=== PATIENT | female | born 1975 | race Caucasian/White ===

== ENCOUNTER 2017-12-26 19:17 | Emergency (ER) | payer MEDICAID, SELFPAY ==
[2017-12-26 19:20] VITALS: BP 110/74; PULSE 122; RESP 17; TEMP 36.3; O2SAT 97; BMI 32.8
[2017-12-26] MEDS: 0.9% Normal Saline 1,000 ML 125 ML IV (19:52)
[2017-12-26 19:53] LABS: Absolute Lymphocyte Count 5.53 X10^3/ul (0.83-4.51); Absolute Neutrophil Count 7.2 X10^3/uL (2.0-7.7); Basophil# 0.07 X10^3/uL; Basophil% 0.5 % (0-1); Eosinophil# 0.17 X10^3/uL; Eosinophils% 1.2 % (0-5); Hematocrit 42.9 % (37-47); Hemoglobin 14.4 g/dl (12.0-15.0); Lymphocyte # 5.53 X10^3/ul (4.0); Lymphocyte % 39.7 % (19-41); Mean Corp Hgb Conc 33.6 g/gl (32-36); Mean Corpuscular Hgb 30.5 pg (27.0-32.0); Mean Corpuscular Volume 90.9 fL (81-99); Mean Platelet Vol. 10.8 fl (6.2-12.0); Monocyte# 0.92 X10^3/uL; Monocyte% 6.6 % (0-10); Neutrophil % 51.6 % (47-70); Platelet Count 297 K/mm3 (150-450); RBC Distribution Width CV 14.2 % (11.6-14.6); RBC Distribution Width SD 46.9 fl (35.1-43.9); Red Blood Count 4.72 M/mm3 (4.2-5.4); White Blood Count 13.9 K/mm3 (4.4-11.0)
[2017-12-26 19:54] LABS: POSITIVE DIFFERENTIAL YES
[2017-12-26 19:55] LABS: Differential Indicated SCAN CRITERIA MET; POSITIVE COUNT NO; POSITIVE MORPHOLOGY NO
[2017-12-26] MEDS: Ondansetron 4 MG/2 ML Vial IV (19:56)
[2017-12-26 20:03] LABS: ALB/GLOB Ratio 0.9 RATIO (0.9-2.4); AST(SGOT) 20 U/L (15-37); Alanine Aminotransfer ALT/SGPT 28 U/L (13-56); Albumin, Serum 3.6 g/dL (3.2-5.0); Alkaline Phosphatase 61 U/L (45-117); Anion Gap 10 (5-15); BUN 8 mg/dL (7-18); BUN/Creat Ratio 9.7 RATIO (10-20); Calcium,Total 8.5 mg/dL (8.5-10.1); Chloride 103 mmol/L (98-107); Creatinine, Serum 0.82 mg/dL (0.55-1.02); EST Glomerular Filtration Rate 80 mL/min (>60); Est Glom Filt Rate - Afr Amer 97 mL/min (>60); Estimated Creatinine Clearance 82.81 ml/min; Globulin 4.2 g/dL (2.2-4.2); Glucose 106 mg/dL (74-106); Lipase 140 U/L (73-393); Potassium 3.4 mmol/L (3.5-5.1); Protein, Total 7.8 g/dL (6.4-8.2); Sodium Level 138 mmol/L (136-145)
[2017-12-26 20:31] LABS: Differential Comment SCANNED; Platelet Estimate ADEQUATE (ADEQ); Reactive Lymphocyte 2+
[2017-12-26 20:34] VITALS: BP 102/68; PULSE 83; RESP 19; O2SAT 97
[2017-12-26 20:35] VITALS: BP 102/68; BP 110/74; BP 115/64; PULSE 92; PULSE 95; PULSE 99
--- NOTE | 2017-12-26 20:35 | NURSING ---
PT BOYFRIEND KEEPS CALLING TO CHECK ON THE PT HAVE TALKED WITH HIM MULTIPLE TIMES AND LET HIM KNOW WHAT TEST WE ARE DOING AND HOW LONG WE WILL BE WAITING FOR THE RESULTS.
[2017-12-26 22:04] VITALS: BP 121/67; PULSE 87; RESP 18; O2SAT 95
--- NOTE | 2017-12-26 22:26 | ED.DCSUM_ITS ---
- ER Visit Summary Date of Service: 12/26/17 Chief Complaint: [Alcohol intoxication] History of Present Illness: The patient is a 42 F [presents to the emergency department via EMS. Patient's significant other called EMS as patient had been drinking red wine and she was vomiting what looked like blood. Patient apparently has a history of a bleeding ulcer. Patient also tells me she thinks she has had some black stool. Patient does normally take omeprazole and dicyclomine which she has been taking regularly she states. Patient denies any significant abdominal pain. Patient denies chest pain. Patient's states that she thinks she is fine and really does not want to be here. Patient denies any illicit drug use. Patient denies any fevers.] Physical Examination: [HEENT-PERRLA, EOMI. Cranial nerves II through XII grossly intact. TMs clear. Mucous membranes moist. No adenopathy. Cardiovascular-regular rate and rhythm without murmur or ectopy Lungs-clear to auscultation, chest wall stable without crepitus or subcu emphysema Abdomen-normoactive bowel sounds, soft, nontender, no rebound or rigidity, no peritoneal signs. Rectal exam-no masses palpated, patient had brown stool that was Hemoccult negative. Extremities-intact ?4, normal range of motion, normal pulses, atraumatic] Test Results: [CBC with differential obtained showed a white blood cell count 13.9, hemoglobin 14, hematocrit 43, platelets 247. Chemistries were unremarkable. BUN was 8 and creatinine was 0.82. Liver enzymes were normal and lipase was normal. Alcohol level was 287. Hemoccult was negative.] Emergency Department Course and Treatment: [Patient was given Zofran for an episode of emesis in the emergency department and the emesis did not look bloody in any way. She had a purplish discoloration to her shirt which is consistent with wine that she was drinking. After the Zofran she had no further emesis.] Treatment Plan: [Patient will be observed in the emergency department until her alcohol normalizes] Disposition: [Discharged to home in stable condition. Patient advised to seek help for her alcohol problem.] Impression: [Alcohol intoxication] This note was generated with [employer]ation software. It may contain incorrect words, spelling, and punctuation that were not noted in review of the chart prior to signing ED Disposition - Plan for ED Patient: Chief Complaint: ETOH Intox Referrals: Care Physician,No Primary [Primary Care Provider] -
--- NOTE | 2017-12-26 22:29 | ED.DEP ---
ED Disposition - Plan for ED Patient: Chief Complaint: ETOH Intox Instructions: ED Alcohol Intoxication Referrals: Care Physician,No Primary [Primary Care Provider] - Moi Garcia MD [STAFF PHYSICIAN] - 3-5 Days
[2017-12-26 23:04] VITALS: PULSE 87; RESP 17; O2SAT 97
--- NOTE | 2017-12-26 23:59 | NURSING ---
will observe the pt until she is sober enough to go home.
--- NOTE | 2017-12-27 00:09 | NURSING ---
pt will be able to go home when is sober states that she can take a taxi home. let her boyfriend know. pt will be under 100 around 2-3 am
[2017-12-27 00:10] VITALS: BP 104/83; PULSE 90; RESP 14; O2SAT 96
[2017-12-27 01:51] VITALS: BP 107/68; PULSE 71; RESP 16; O2SAT 96
--- NOTE | 2017-12-27 01:51 | NURSING ---
PT HAS A TAXI PICKING HER UP SHE HAS MONEY AND HER BOYFRIEND WAS CALLED TO LET HIM KNOW THAT SHE WAS ON THE WAY HOME.
[2017-12-27 12:47] LABS: Pathologist Review Reviewed
== END 2017-12-27 01:52 | disposition home or self-care (01) ==
PROVIDERS: Emergency Medicine; Emergency Provider Emergency Medicine
DX: F10.129 Alcohol abuse with intoxication, unspecified (principal); Y90.8 Blood alcohol level of 240 mg/100 ml or more; Z72.0 Tobacco use
CPT/HCPCS: 80053; 80320; 82274; 83690; 85025; 96361; 96374; 99285; J7030; A4216; G0480; J2405

== ENCOUNTER 2018-01-18 21:52 | Emergency (ER) | payer MEDICAID, SELFPAY ==
[2018-01-18 21:53] VITALS: BP 132/75; PULSE 101; RESP 15; TEMP 36.7; BMI 31.4
--- NOTE | 2018-01-18 22:54 | ED.VISSUMM ---
- ER Visit Summary Date of Service: 01/18/18 Chief Complaint: [Abscess left groin] History of Present Illness: The patient is a 42 F presents to the emergency department with an abscess to the left groin that started initially about 2 weeks ago. Patient states today it started draining some purulent debris and comes in for evaluation. Patient denies any fever. Patient has had these in the past and have required incision and drainage.] Physical Examination: [HEENT-PERRLA, EOMI. Cranial nerves II through XII grossly intact. TMs clear. Mucous membranes moist. No adenopathy. Cardiovascular-regular rate and rhythm without murmur or ectopy Lungs-clear to auscultation, chest wall stable without crepitus or subcu emphysema Abdomen-normoactive bowel sounds, soft, nontender, no rebound or rigidity, no peritoneal signs. Extremities-intact ?4, normal range of motion, normal pulses, atraumatic]. Left groin-there is a small 1 cm abscess that is spontaneously draining. No fluctuance at this time. I am only able to express small amount of serous fluid. Minimal erythema. No significant cellulitis. Test Results: [None indicated] Emergency Department Course and Treatment: [At this point I do not feel any further incision is indicated. I will start patient on clindamycin.] Treatment Plan: [Clindamycin and follow-up with primary care physician in 3-5 days.] Disposition: [Discharged to home in stable condition] Impression: [Soft tissue abscess left groin] This note was generated with [employer] dictation software. It may contain incorrect words, spelling, and punctuation that were not noted in review of the chart prior to signing ED Disposition - Plan for ED Patient: Chief Complaint: Abscess Referrals: Care Physician,No Primary [Primary Care Provider] -
--- NOTE | 2018-01-18 22:56 | ED.DEP ---
ED Disposition - Plan for ED Patient: Chief Complaint: Abscess Instructions: ED Infec Skin Cellulitis Prescriptions: Clindamycin HCl [Cleocin] 300 mg PO Q6H #40 cap Referrals: Care Physician,No Primary [Primary Care Provider] - Alcides Collazo MD [STAFF PHYSICIAN] - 5-7 Days
[2018-01-18] MEDS: Clindamycin HCl 150 MG Capsule 300 MG PO (23:07)
== END 2018-01-18 23:09 | disposition home or self-care (01) ==
LOC: ED 22:57
PROVIDERS: Emergency Provider Emergency Medicine
DX: L02.214 Cutaneous abscess of groin (principal); Z72.0 Tobacco use
CPT/HCPCS: 99283

== ENCOUNTER 2018-01-21 22:15 | Emergency (ER) | payer MEDICAID, SELFPAY ==
[2018-01-21 22:19] VITALS: BP 116/81; PULSE 96; RESP 19; TEMP 36.7; O2SAT 96; BMI 31.4
--- NOTE | 2018-01-21 22:31 | ED.VISSUMM ---
- ER Visit Summary Date of Service: 01/21/18 Chief Complaint: [] Alcohol intoxication History of Present Illness: The patient is a 42 F [] presents via police secondary to alcohol intoxication at a local bar. Patient appeared unable to care for herself. History is limited setting of the patient's change in mental status from alcohol intoxication. Patient was reportedly with her sister at the bar who also is intoxicated. Physical Examination: [] Afebrile, vital signs stable. Patient is intoxicated from unknown substance, likely alcohol. Pupils are equal round reactive to light, extraocular movements are intact. Cardiovascular exam is regular rate and rhythm. Lungs are clear to auscultation. Abdomen is soft and nontender. No lower extremity edema. Patient mumbles during questions but is alert and oriented to self. Test Results: [] CBC:Normal. CMP:Normal. EtOH:0.295. Emergency Department Course and Treatment: [] Patient placed under observation. Basic labs and ethanol level were obtained. Alcohol level 0.295. Patient will be observed for several hours until she is at a sober level clinically. Treatment Plan: [] Observe until clinically sober. Disposition: [] Discharge, stable. Impression: [] Acute alcohol intoxication This note was generated with [employer] dictation software. It may contain incorrect words, spelling, and punctuation that were not noted in review of the chart prior to signing ED Disposition - Plan for ED Patient: Chief Complaint: ETOH Intox Referrals: Care Physician,No Primary [Primary Care Provider] -
[2018-01-21 23:10] LABS: Absolute Lymphocyte Count 4.61 X10^3/ul (0.83-4.51); Absolute Neutrophil Count 5.4 X10^3/uL (2.0-7.7); Basophil# 0.05 X10^3/uL; Basophil% 0.5 % (0-1); Eosinophil# 0.19 X10^3/uL; Eosinophils% 1.7 % (0-5); Hematocrit 41.7 % (37-47); Hemoglobin 14.1 g/dl (12.0-15.0); Lymphocyte # 4.61 X10^3/ul (4.0); Lymphocyte % 42.1 % (19-41); Mean Corp Hgb Conc 33.8 g/gl (32-36); Mean Corpuscular Hgb 30.4 pg (27.0-32.0); Mean Corpuscular Volume 89.9 fL (81-99); Mean Platelet Vol. 10.4 fl (6.2-12.0); Monocyte# 0.68 X10^3/uL; Monocyte% 6.2 % (0-10); Neutrophil # 5.38 X10^3/uL (2.7-7.7); Neutrophil % 49.2 % (47-70); Platelet Count 309 K/mm3 (150-450); RBC Distribution Width SD 45.9 fl (35.1-43.9); Red Blood Count 4.64 M/mm3 (4.2-5.4); White Blood Count 10.9 K/mm3 (4.4-11.0)
[2018-01-21 23:19] LABS: POSITIVE COUNT NO; POSITIVE DIFFERENTIAL NO; POSITIVE MORPHOLOGY NO
[2018-01-21 23:26] LABS: BUN 5 mg/dL (7-18); Glucose 91 mg/dL (74-106)
[2018-01-21 23:27] LABS: ALB/GLOB Ratio 0.9 RATIO (0.9-2.4); AST(SGOT) 18 U/L (15-37); Alanine Aminotransfer ALT/SGPT 29 U/L (13-56); Albumin, Serum 3.6 g/dL (3.2-5.0); Alkaline Phosphatase 69 U/L (45-117); Anion Gap 10 (5-15); BUN/Creat Ratio 6.2 RATIO (10-20); Chloride 102 mmol/L (98-107); Creatinine, Serum 0.81 mg/dL (0.55-1.02); EST Glomerular Filtration Rate 82 mL/min (>60); Est Glom Filt Rate - Afr Amer 99 mL/min (>60); Estimated Creatinine Clearance 83.84 ml/min; Globulin 3.9 g/dL (2.2-4.2); Potassium 3.6 mmol/L (3.5-5.1); Protein, Total 7.5 g/dL (6.4-8.2); Sodium Level 136 mmol/L (136-145)
--- NOTE | 2018-01-22 01:05 | ED.DEP ---
ED Disposition - Plan for ED Patient: Disposition: Home or Assisted Living Chief Complaint: ETOH Intox Instructions: ED Alcohol Abuse, ED Alcohol Intoxication Referrals: Care Physician,No Primary [Primary Care Provider] -
--- NOTE | 2018-01-22 03:10 | ED.RN ---
CALLED BOYFRIEND ELOISE CHRISTIANSEN, ELOISE STATES HE WILL BE HOME AT THEIR ADDRESS, UNABLE TO COME GET PT. CALLED JOSE D BARON. PT MADE AWARE.
--- NOTE | 2018-01-22 03:16 | ED.RN ---
UPIN TRYING TO GIVE DC INSTRUCTIONS AND GET VITALS, PT CUSSING AT STAFF AND REFUSING. NO SIGNS OF DISTRESS.
--- NOTE | 2018-01-22 03:18 | ED.RN ---
UPON TRYING TO TAKE IV OUT, PT STATES IF YOU MAKE ME BLEED I'LL FUCKING KILL YOU
== END 2018-01-22 03:19 | disposition home or self-care (01) ==
PROVIDERS: Emergency Provider Emergency Medicine
DX: F10.129 Alcohol abuse with intoxication, unspecified (principal); Y90.8 Blood alcohol level of 240 mg/100 ml or more
CPT/HCPCS: 80053; 80320; 85025; 99285; A4216; G0480

== ENCOUNTER → 2018-02-25 11:15 | Outpatient (CLI) | payer MEDICAID, SELFPAY ==
[2018-02-25 13:27] LABS: HIV - WCH Non-Reactive (Nonreactive)
[2018-02-25 16:29] LABS: Chlamydia Trachomatis by PCR Negative (Negative); Neisserai gonorrhoeae by PCR Negative (Negative); Probe Check PASS; Sample Adequacy Control PASS; Specimen Processing Control PASS
[2018-02-26 10:37] LABS: HEPATITIS B SURFACE AG Negative (Negative); Hep C Antibodies <0.1 s/co ratio (0.0-0.9)
[2018-03-01 02:33] LABS: Rapid Plasmin Reagin (RPR) NONREACTIVE (NONREACTIVE)
[2018-03-04 14:13] LABS: HPV Reflexed? NOT INDICATED
== END ==
PROVIDERS: Visit Provider Obstetrics & Gynecology
DX: Z11.3 Encounter for screening for infections with a predominantly sexual mode of transmission (principal); Z12.4 Encounter for screening for malignant neoplasm of cervix; Z12.72 Encounter for screening for malignant neoplasm of vagina
CPT/HCPCS: 36415; 86592; 86703; 86803; 87340; 87491; 87591; 88175; G0145

== ENCOUNTER 2018-03-03 20:53 | Emergency (ER) | payer MEDICAID, SELFPAY ==
[2018-03-03 20:54] VITALS: BP 137/89; PULSE 99; RESP 16; TEMP 36.9; O2SAT 99; BMI 32.3
--- NOTE | 2018-03-03 21:26 | ED.VISSUMM ---
- ER Visit Summary Date of Service: 03/03/18 Chief Complaint: My tongue is purple History of Present Illness: The patient is a 43 F who presents because her tongue is purple. Eyes fever, chills night sweats. She denies ocular, visual auditory symptoms. Denies change in voice, difficulty breathing or swallowing. She denies any cardiac respiratory symptoms. She has no GI symptoms. She denies any discoloration of her digits. She denies paresthesia, anesthesia motor weakness. Please read written note Physical Examination: Blood pressure is elevated 137/89. Head is atraumatic normocephalic. Pupils are equal round reactive. Extraocular muscles are intact. TMs are pearly white with landmarks noted. Nares patent with no drainage. Posterior pharynx without erythema or exudate. Uvula is midline. The dorsal surface of her tongue is purple. No other portion of her tongue is purple including side and underside. There is no evidence of central cyanosis. There is no evidence of peripheral cyanosis. She is not hypoxic. She appears in no distress. She has no skin lesions noted. She does not have any laces few of her upper eyelids to suggest scleroderma. There is no dysphonia or dysphasia. Trachea is midline. There is no stridor with auscultation of the neck. Test Results: None Emergency Department Course and Treatment: Patient was told she must of had something to eat or drink because her tongue to be purple since the only surface that is purple is on the top side. Treatment Plan: Discharge to home Disposition: Discharged home in stable condition Impression: Medical screening exam This note was generated with [employer] dictation software. It may contain incorrect words, spelling, and punctuation that were not noted in review of the chart prior to signing ED Disposition - Plan for ED Patient: Disposition: Home or Assisted Living Chief Complaint: Dizziness Instructions: ED Screening Exam Medical Nonurgent Referrals: Isatu Fishman MD [Primary Care Provider] - Keep Ap appointment
[2018-03-03 21:44] VITALS: PULSE 102; RESP 19; O2SAT 98
== END 2018-03-03 21:47 | disposition home or self-care (01) ==
PROVIDERS: Emergency Provider Emergency Medicine; Family Provider Internal Medicine; PCP Internal Medicine
DX: Z13.89 Encounter for screening for other disorder (principal); Z72.0 Tobacco use
CPT/HCPCS: 99282

== ENCOUNTER 2018-03-14 17:34 | Emergency (ER) | payer MEDICAID, SELFPAY ==
[2018-03-14 17:34] VITALS: BP 130/81; PULSE 89; RESP 16; TEMP 37.1; O2SAT 100; BMI 31.6
--- NOTE | 2018-03-14 18:10 | ED.DCSUM_ITS ---
- ER Visit Summary Date of Service: 03/14/18 Chief Complaint: Rash History of Present Illness: The patient is a 43 F presenting with rash of both upper extremities. Patient states she has had intermittent hives and itching in both upper extremities for the past year. She does not know of any known cause. She has no new soaps, detergents, pets, or foods. She started cholesterol medicine 8 months ago but had symptoms for 4 months before starting this medication. She states symptoms are intermittent and she sometimes goes weeks without symptoms. She has been taking Benadryl for itching. She has appointment with her primary care physician in May. Denies fever or other complaints. Physical Examination: Vitals are stable. Patient is afebrile. Alert no acute distress. HEENT exam is unremarkable. No mucous membrane involvement. Neck is supple. Lungs are clear and equal bilaterally. Heart is regular rate and rhythm. Abdomen is soft nontender nondistended. Extremities mild urticaria bilateral upper extremities Skin is warm and dry. No focal neurologic deficit. Remainder of exam is unremarkable. Emergency Department Course and Treatment: Patient is given prednisone and advised to continue Benadryl for itching. Advised to follow-up with her primary care physician. Advised return to ED if worsening complaints. Disposition: Discharge home Impression: Urticaria This note was generated with [employer] dictation software. It may contain incorrect words, spelling, and punctuation that were not noted in review of the chart prior to signing ED Disposition - Plan for ED Patient: Chief Complaint: Allergic Reaction Referrals: Isatu Fishman MD [Primary Care Provider] -
--- NOTE | 2018-03-14 18:10 | ED.DEP ---
ED Disposition - Plan for ED Patient: Chief Complaint: Allergic Reaction Instructions: ED Urticaria Prescriptions: Prednisone [Deltasone] 40 mg PO DAILY #8 tablet Referrals: Isatu Fishman MD [Primary Care Provider] -
[2018-03-14] MEDS: predniSONE 20 MG Tablet 60 MG PO (18:12)
== END 2018-03-14 18:18 | disposition home or self-care (01) ==
LOC: ED 18:13
PROVIDERS: Emergency Provider Emergency Medicine; Family Provider Internal Medicine; PCP Internal Medicine
DX: L50.9 Urticaria, unspecified (principal); E78.00 Pure hypercholesterolemia, unspecified; Z72.0 Tobacco use
CPT/HCPCS: 99283

== ENCOUNTER 2018-03-18 09:32 | Emergency (ER) | payer MEDICAID, SELFPAY ==
[2018-03-18 09:33] VITALS: BP 137/85; PULSE 85; RESP 16; TEMP 36.8; O2SAT 99; BMI 31.4
--- NOTE | 2018-03-18 09:53 | RAD_ITS ---
STUDY: X-RAY - LEFT FOOT CLINICAL: Female, 43 years old. Stepped on a foreign body. TECHNIQUE: 3 view(s) of the foot. COMPARISON: None. FINDINGS: There is a plantar calcaneal spur. Normal visualized subtalar, talonavicular, calcaneocuboid, tarsal and tarsometatarsal articulations. Normal metatarsi. Normal metatarsophalangeal joint of the great toe. Normal tibial and fibular sesamoid bones. Normal interphalangeal joint of the great toe. Normal phalanges of the great toe. Normal second through fifth metatarsophalangeal joints. Normal interphalangeal joints and phalanges of the lesser toes. No radiopaque foreign body is seen. RAD/Foot min 3 Views IMPRESSION: Plantar spur. No radiopaque foreign body is seen. Electronically Signed: Gus Wade MD at 10:24 EDT Tel [phone], Service support ,
--- NOTE | 2018-03-18 10:03 | ED.VISSUMM ---
- ER Visit Summary Date of Service: 03/18/18 Chief Complaint: Rash History of Present Illness: The patient is a 43 F with a rash. She was seen here a few days ago. She was thinking that she had hives. She has been taking prednisone and Benadryl with no relief. Her rash has spread from her left arm to her right arm and is now spreading up her neck. It does not involve her trunk or legs. Does not involve eyes or mucous membranes. No fever or systemic symptoms. No cough, chest pain, shortness of breath, nausea, vomiting, diarrhea. No joint pains. She is concerned she may have a piece of glass in her left foot that she stepped on weeks ago. She has had this rash on and off for several months, but it seems to be getting worse. She uses alcohol occasionally and smokes cigarettes. She denies drug use. Denies any history of cancer. Physical Examination: Afebrile vital signs unremarkable. Alert and oriented. No acute distress. Patient has raised red nodules over her neck, right arm, and left hand. Neurovascular intact distally. She has evidence of a healed puncture wound to her left foot with no drainage, bleeding, erythema, or other abnormalities noted. Test Results: CBC, BMP, hCG, ESR, and TSH pending. Emergency Department Course and Treatment: Patient has signs of erythema nodosum. She has no other symptoms that would suggest an underlying cause. I did check some basic blood work, test, ESR, and TSH. Workup was unremarkable. X-rays were negative for foreign body or other acute process. I spoke with Dr. Fishman. I advised the patient that she will need close follow-up as many inflammatory, infectious, and neoplastic conditions can cause this rash. Patient will call today to get an appointment in the near future. She will take anti-inflammatories. Continue her prednisone and Benadryl as directed. Treatment Plan: As above Disposition: Discharged Impression: 1. Rash unclear etiology 2. Puncture wound left foot This note was generated with [employer] dictation software. It may contain incorrect words, spelling, and punctuation that were not noted in review of the chart prior to signing ED Disposition - Plan for ED Patient: Chief Complaint: Rash Referrals: Isatu Fishman MD [Primary Care Provider] -
--- NOTE | 2018-03-18 10:06 | ED.DCSUM_ITS ---
- ER Visit Summary Date of Service: 03/18/18 Chief Complaint: Rash History of Present Illness: The patient is a 43 F with a rash. She was seen here a few days ago. She was thinking that she had hives. She has been taking prednisone and Benadryl with no relief. Her rash has spread from her left arm to her right arm and is now spreading up her neck. It does not involve her trunk or legs. Does not involve eyes or mucous membranes. No fever or systemic symptoms. No cough, chest pain, shortness of breath, nausea, vomiting , diarrhea. No joint pains. She is concerned she may have a piece of glass in her left foot that she stepped on weeks ago. She has had this rash on and off for several months, but it seems to be getting worse. She uses alcohol occasionally and smokes cigarettes. She denies drug use. Denies any history of cancer. Physical Examination: Afebrile vital signs unremarkable. Alert and oriented. No acute distress. Patient has raised red nodules over her neck, right arm, and left hand. Neurovascular intact distally. She has evidence of a healed puncture wound to her left foot with no drainage, bleeding, erythema, or other abnormalities noted. Test Results: CBC, BMP, hCG, ESR, and TSH pending. Emergency Department Course and Treatment: Patient has signs of erythema nodosum. She has no other symptoms that would suggest an underlying cause. I did check some basic blood work, test, ESR, and TSH. Workup was unremarkable. X-rays were negative for foreign body or other acute process. I spoke with Dr. Fishman. I advised the patient that she will need close follow- up as many inflammatory, infectious, and neoplastic conditions can cause this rash. Patient will call today to get an appointment in the near future. She will take anti-inflammatories. Continue her prednisone and Benadryl as directed. Treatment Plan: As above Disposition: Discharged Impression: 1. Rash unclear etiology 2. Puncture wound left foot This note was generated with [employer] dictation software. It may contain incorrect words, spelling, and punctuation that were not noted in review of the chart prior to signing ED Disposition - Plan for ED Patient: Chief Complaint: Rash Referrals: Isatu Fishman MD [Primary Care Provider] -
[2018-03-18 10:14] LABS: Erythrocyte Sedimentation Rate 7 mm/hr (0-20)
[2018-03-18 10:15] LABS: Absolute Lymphocyte Count 1.84 X10^3/ul (0.83-4.51); Absolute Neutrophil Count 7.9 X10^3/uL (2.0-7.7); Basophil# 0.05 X10^3/uL; Basophil% 0.5 % (0-1); Eosinophil# 0.19 X10^3/uL; Eosinophils% 1.8 % (0-5); Hematocrit 43.1 % (37-47); Hemoglobin 14.4 g/dl (12.0-15.0); Lymphocyte # 1.84 X10^3/ul (4.0); Lymphocyte % 17.5 % (19-41); Mean Corp Hgb Conc 33.4 g/gl (32-36); Mean Corpuscular Hgb 30.5 pg (27.0-32.0); Mean Corpuscular Volume 91.3 fL (81-99); Monocyte# 0.57 X10^3/uL; Monocyte% 5.4 % (0-10); Neutrophil # 7.85 X10^3/uL (2.7-7.7); Neutrophil % 74.6 % (47-70); Platelet Count 311 K/mm3 (150-450); RBC Distribution Width CV 13.8 % (11.6-14.6); RBC Distribution Width SD 45.4 fl (35.1-43.9); Red Blood Count 4.72 M/mm3 (4.2-5.4); White Blood Count 10.5 K/mm3 (4.4-11.0)
[2018-03-18 10:21] LABS: POSITIVE COUNT NO; POSITIVE DIFFERENTIAL NO; POSITIVE MORPHOLOGY NO
[2018-03-18 10:26] LABS: Pregnancy, Serum, hCG Quali. NEGATIVE Negative (0-9 Nonpreg)
[2018-03-18 10:30] LABS: Anion Gap 4 (5-15); BUN 11 mg/dL (7-18); BUN/Creat Ratio 11.1 RATIO (10-20); Calcium,Total 9.1 mg/dL (8.5-10.1); Chloride 106 mmol/L (98-107); Creatinine, Serum 0.99 mg/dL (0.55-1.02); EST Glomerular Filtration Rate 65 mL/min (>60); Est Glom Filt Rate - Afr Amer 78 mL/min (>60); Estimated Creatinine Clearance 67.89 ml/min; Glucose 97 mg/dL (74-106); Potassium 3.6 mmol/L (3.5-5.1); Sodium Level 140 mmol/L (136-145); Thyroid Stim Hormone (TSH) 2.01 uIU/mL (0.358-3.74)
--- NOTE | 2018-03-18 11:10 | ED.DEP ---
ED Disposition - Plan for ED Patient: Chief Complaint: Rash Instructions: ED Erythema Prescriptions: Ibuprofen [Motrin] 800 mg PO TID #20 tab Referrals: Isatu Fishman MD [Primary Care Provider] - Lamont Kaur DPM [STAFF PHYSICIAN] -
[2018-03-18 11:26] VITALS: BP 115/84; PULSE 70; RESP 17; O2SAT 95
--- NOTE | 2018-03-18 11:34 | ED.RN ---
pt refused script for motrin.. dr. smith informed. script wripped and placed in shred container.
== END 2018-03-18 11:34 | disposition home or self-care (01) ==
PROVIDERS: Emergency Provider Emergency Medicine; Family Provider Internal Medicine; PCP Internal Medicine
DX: R21 Rash and other nonspecific skin eruption (principal); S91.332A Puncture wound without foreign body, left foot, initial encounter; W22.8XXA Striking against or struck by other objects, initial encounter; Y93.9 Activity, unspecified; Y92.89 Other specified places as the place of occurrence of the external cause; Y99.9 Unspecified external cause status; K21.9 Gastro-esophageal reflux disease without esophagitis; Z72.0 Tobacco use
CPT/HCPCS: 73630; 80048; 84443; 84703; 85025; 85652; 99283

== ENCOUNTER → 2018-03-25 13:40 | Outpatient (CLI) | payer MEDICAID, SELFPAY ==
[2018-03-28 03:07] LABS: Alternaria tenuis <0.10 kU/L (Class 0); Ash, White <0.10 kU/L (Class 0); Aspergillus fumigatus <0.10 kU/L (Class 0); Bermuda Grass 0.25 kU/L (Class 0/I); Birch <0.10 kU/L (Class 0); Black Walnut <0.10 kU/L (Class 0); Cat Hair / Dander,Stand <0.10 kU/L (Class 0); Cedar, Mountain <0.10 kU/L (Class 0); Cladosporium herbarum <0.10 kU/L (Class 0); Codfish <0.10 kU/L (Class 0); Cottonwood <0.10 kU/L (Class 0); D farinae Mite 0.67 kU/L (Class II); D farinae Mite 0.72 kU/L (Class II); D pteronyssinus 0.81 kU/L (Class II); Dog Epithelia <0.10 kU/L (Class 0); Egg, White <0.10 kU/L (Class 0); Elm, American White <0.10 kU/L (Class 0); Immunoglobulin E 248 IU/mL (0-100); Maple/Box Elder <0.10 kU/L (Class 0); Milk (Cow) <0.10 kU/L (Class 0); Mulberry, White <0.10 kU/L (Class 0); Oak, White <0.10 kU/L (Class 0); Pecan <0.10 kU/L (Class 0); Pigweed, Rough <0.10 kU/L (Class 0); Ragweed, Short/Common <0.10 kU/L (Class 0); Russian Thistle <0.10 kU/L (Class 0); Sheep Sorrel <0.10 kU/L (Class 0); Shrimp 0.52 kU/L (Class I); Soybean <0.10 kU/L (Class 0); Sycamore, American <0.10 kU/L (Class 0); Timothy Grass 0.12 kU/L (Class 0/I); Walnut, (Food) <0.10 kU/L (Class 0); Wheat 0.11 kU/L (Class 0/I)
[2018-03-28 10:21] LABS: Mouse Urine <0.10 kU/L (Class 0); Peanut <0.10 kU/L (Class 0)
[2018-03-28 10:22] LABS: Cockroach, American 0.27
[2018-03-28 10:23] LABS: Mouse Urine <0.10 kU/L (Class 0)
[2018-03-28 11:54] LABS: Penicillium Notatum <0.10 kU/L (Class 0)
== END ==
PROVIDERS: Family Provider Internal Medicine; PCP Internal Medicine; Visit Provider Otolaryngology
DX: T78.40XA Allergy, unspecified, initial encounter (principal)
CPT/HCPCS: 36415; 82785; 86003

== ENCOUNTER → 2018-05-31 11:15 | Outpatient (CLI) | payer MEDICAID, SELFPAY ==
[2018-05-31 15:47] LABS: Chlamydia Trachomatis by PCR Negative (Negative); Neisserai gonorrhoeae by PCR Negative (Negative); Probe Check PASS; Sample Adequacy Control PASS; Specimen Processing Control PASS
[2018-05-31 17:01] LABS: HIV - WCH Non-Reactive (Nonreactive)
[2018-06-02 13:26] LABS: HEPATITIS B SURFACE AG Negative (Negative); Hep C Antibodies 0.1 s/co ratio (0.0-0.9)
[2018-06-07 00:18] LABS: Rapid Plasmin Reagin (RPR) NONREACTIVE (NONREACTIVE)
== END ==
PROVIDERS: Visit Provider Obstetrics & Gynecology
DX: Z11.3 Encounter for screening for infections with a predominantly sexual mode of transmission (principal)
CPT/HCPCS: 36415; 86592; 86703; 86803; 87340; 87491; 87591

== ENCOUNTER → 2018-06-27 10:23 | Outpatient (CLI) | payer MEDICAID, SELFPAY ==
[2018-06-27 14:21] LABS: Follicle Stimulating Hormone 6.9 mIU/mL; Free T3 3.3 pg/mL (2.18-3.98); Luteinizing Hormone 6.2 mIU/mL; T4 Free Direct 0.89 ng/dL (0.76-1.46); Thyroid Stim Hormone (TSH) 1.96 uIU/mL (0.358-3.74)
== END ==
PROVIDERS: Visit Provider Obstetrics & Gynecology
DX: N92.1 Excessive and frequent menstruation with irregular cycle (principal)
CPT/HCPCS: 36415; 83001; 83002; 84439; 84443; 84481

== ENCOUNTER → 2018-09-20 10:59 | Outpatient (CLI) | payer MEDICAID, SELFPAY ==
[2018-09-20 16:28] LABS: HIV - WCH Non-Reactive (Nonreactive)
[2018-09-21 11:47] LABS: HEPATITIS B SURFACE AG Negative (Negative); Hep C Antibodies <0.1 s/co ratio (0.0-0.9)
[2018-09-27 02:01] LABS: Rapid Plasmin Reagin (RPR) NONREACTIVE (NONREACTIVE)
== END ==
PROVIDERS: Visit Provider Obstetrics & Gynecology
DX: Z11.3 Encounter for screening for infections with a predominantly sexual mode of transmission (principal)
CPT/HCPCS: 36415; 86592; 86703; 86803; 87340

== ENCOUNTER 2018-11-19 09:36 | Emergency (ER) | payer MEDICAID, SELFPAY ==
[2018-11-19 09:37] VITALS: BP 151/98; PULSE 118; RESP 18; TEMP 36.6; O2SAT 98; BMI 30.2
--- NOTE | 2018-11-19 10:27 | ED.VISSUMM ---
- ER Visit Summary Date of Service: 11/19/18 Chief Complaint: Laceration History of Present Illness: The patient is a 43 F who is right-hand dominant. She has a laceration to her right hand. This occurred last night. The patient was drinking and she accidentally cut her right palm with a knife. Unsure of her tetanus status. No other injuries or complaints. Physical Examination: Heart rate 118 and blood pressure 151/98. Otherwise vitals unremarkable. Patient has a 3 cm laceration to her right palm, ulnar side. Neurovascular intact distally. This is a superficial laceration with no involvement of underlying structures. Test Results: None indicated Emergency Department Course and Treatment: Tetanus updated. Wound was anesthetized, irrigated, explored, sutured with 5 simple interrupted sutures. Wound care instructions were given. Follow-up in 10-14 days for suture removal. Return sooner for signs of infection or other complications. Treatment Plan: As above Disposition: Discharge Impression: 1. Right hand laceration 3 cm This note was generated with [employer] dictation software. It may contain incorrect words, spelling, and punctuation that were not noted in review of the chart prior to signing ED Disposition - Plan for ED Patient: Chief Complaint: Laceration Referrals: NOT,DEFINED [Primary Care Provider] -
--- NOTE | 2018-11-19 10:29 | ED.DEP ---
ED Disposition - Plan for ED Patient: Chief Complaint: Laceration Instructions: ED Laceration Hand Referrals: Fast,Maranda, DO [NON-STAFF] - 10-14 Days if not better
[2018-11-19] MEDS: Diphth,Pertuss(Acell),Tet Vac 0.5 ML Vial IM (10:30)
== END 2018-11-19 10:45 | disposition home or self-care (01) ==
PROVIDERS: Emergency Provider Emergency Medicine
DX: S61.411A Laceration without foreign body of right hand, initial encounter (principal); W26.0XXA Contact with knife, initial encounter; Y93.9 Activity, unspecified; Y92.9 Unspecified place or not applicable; Y99.9 Unspecified external cause status; Z23 Encounter for immunization; Z72.0 Tobacco use
CPT/HCPCS: 12002; 90715; 99283

== ENCOUNTER 2018-11-28 11:19 | Emergency (ER) | payer MEDICAID, SELFPAY ==
[2018-11-28 11:21] VITALS: BP 148/94; PULSE 89; RESP 16; TEMP 36.5; O2SAT 96; BMI 29.4
--- NOTE | 2018-11-28 11:46 | ED.VISSUMM ---
- ER Visit Summary Date of Service: 11/28/18 Chief Complaint: [Suture removal] History of Present Illness: The patient is a 43 F [ presents to the emergency department with request to have sutures removed from her right hand. Patient had cut her right hand on the of the month using a knife. Patient was seen in the emergency department had sutures placed. Patient was told to have the sutures removed on the or the of the month. Patient denies any complications.] Physical Examination: [Right hand-patient has a 2.5 cm laceration over the lateral aspect of the hyperthenar eminence of the right hand that is well-healed and well approximated. There is no signs of infection. No drainage noted.] Test Results: [None indicated] Emergency Department Course and Treatment: [Sutures were easily removed] Treatment Plan: [Follow-up with primary care physician as needed] Disposition: [Discharged home in stable condition] Impression: [Suture removal right hand-no infection] This note was generated with [employer] dictation software. It may contain incorrect words, spelling, and punctuation that were not noted in review of the chart prior to signing ED Disposition - Plan for ED Patient: Chief Complaint: Suture Remv Referrals: Care Physician,No Primary [Primary Care Provider] -
--- NOTE | 2018-11-28 11:48 | ED.DEP ---
ED Disposition - Plan for ED Patient: Chief Complaint: Suture Remv Instructions: ED Wound Check Sutr Remove No Infec Referrals: Care Physician,No Primary [Primary Care Provider] - Jimena Nunez MD [STAFF PHYSICIAN] - As Needed
--- NOTE | 2018-11-28 12:03 | ED.RN ---
DISCHARGE INSTRUCTIONS GIVEN TO AND REVIEWED WITH PATIENT, PATIENT DENIES QUESTIONS OR CONCERNS AND VOICES UNDERSTANDING OF DISCHARGE INSTRUCTIONS. PT AMBULATES OUT OF ROOM WITHOUT DIFFICULTY.
== END 2018-11-28 12:04 | disposition home or self-care (01) ==
LOC: ED 12:00
PROVIDERS: Emergency Provider Emergency Medicine
DX: Z48.02 Encounter for removal of sutures (principal); K21.9 Gastro-esophageal reflux disease without esophagitis; Z72.0 Tobacco use
CPT/HCPCS: 99282

== ENCOUNTER → 2019-02-11 13:27 | Outpatient (CLI) | payer MEDICAID, SELFPAY ==
[2019-02-11 18:25] LABS: Chlamydia Trachomatis by PCR Negative (Negative); Neisserai gonorrhoeae by PCR Negative (Negative); Probe Check PASS; Sample Adequacy Control PASS; Specimen Processing Control PASS
[2019-02-14 11:22] LABS: HPV HC, High Risk Negative (Negative)
== END ==
PROVIDERS: Visit Provider Obstetrics & Gynecology
DX: Z12.4 Encounter for screening for malignant neoplasm of cervix (principal); Z11.3 Encounter for screening for infections with a predominantly sexual mode of transmission
CPT/HCPCS: 87491; 87591; 87624; 88175; G0145

== ENCOUNTER → 2019-03-14 10:41 | Outpatient (CLI) | payer MEDICAID, SELFPAY ==
--- NOTE | 2019-03-14 10:44 | BI_ITS ---
MAMMOGRAPHY - BILATERAL SCREENING REASON FOR EXAM: Female, 44 years old. Routine annual screening examination. PERTINENT HISTORY: Grandmother with breast cancer. TECHNIQUE: Digital bilateral breast yuniel (3D mammographic acquisition) in the CC and MLO projections. 2-D mediolateral oblique (MLO) and craniocaudad (CC) views of both breasts were obtained. CAD: Full Field Digital Mammography with Computer Added Detection was performed. COMPARISON: Comparison is made with prior examination dated 2017 and August 15, 2016. FINDINGS: Breast Composition: There are scattered areas of fibroglandular density. There are no dominant masses or suspicious calcifications. Stable small bilateral axillary lymph nodes. Stable 7.5 mm well-defined nodule in the upper lateral aspect of the right breast suggestive of a small lymph node. No other significant abnormalities are identified. There has been no significant change since the prior study. BI/SCREENING MAMM (CAD), BILAT IMPRESSION: Stable bilateral screening mammogram. Yearly follow-up mammogram recommended. (A) ASSESSMENT CATEGORY: BIRADS Category 2: Benign. A letter regarding these results will be sent to the patient by the facility within 30 days. Approximately 10% of breast cancers are not detected by mammography. A normal mammogram should not delay biopsy of a clinically suspicious abnormality. [id number] Electronically Signed: Gus Wade, at 13:11 EDT , Service support ,
== END ==
PROVIDERS: Referring Provider Obstetrics & Gynecology; Visit Provider Obstetrics & Gynecology
DX: Z12.31 Encounter for screening mammogram for malignant neoplasm of breast (principal)
CPT/HCPCS: 77063; 77067

== ENCOUNTER → 2019-06-25 12:01 | Outpatient (CLI) | payer MEDICAID, SELFPAY ==
[2019-06-25 15:43] LABS: HIV - WCH Non-Reactive (Nonreactive); Hepatitis C Antibody Non-Reactive (Nonreactive)
[2019-06-25 16:09] LABS: Chlamydia Trachomatis by PCR Negative (Negative); Neisserai gonorrhoeae by PCR Negative (Negative); Probe Check PASS; Sample Adequacy Control PASS; Specimen Processing Control PASS
== END ==
PROVIDERS: Visit Provider Obstetrics & Gynecology
DX: Z11.3 Encounter for screening for infections with a predominantly sexual mode of transmission (principal)
CPT/HCPCS: 36415; 86703; 86803; 87491; 87591

== ENCOUNTER 2019-07-09 11:11 | Emergency (ER) | payer MEDICAID, SELFPAY ==
[2019-07-02 11:20] VITALS: BMI 29.4
[2019-07-09 11:11] VITALS: BP 129/85; PULSE 77; RESP 18; TEMP 36.6; O2SAT 99; BMI 29.4
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
--- NOTE | 2019-07-09 12:05 | ED.RN ---
DISCHARGE INSTRUCTIONS GIVEN TO AND REVIEWED WITH PATIENT, PATIENT DENIES QUESTIONS OR CONCERNS AND VOICE UNDERSTANDING OF DISCHARGE INSTRUCTIONS. PT AMBULATES OUT OF ROOM WITHOUT DIFFICULTY.
== END 2019-07-09 12:05 | disposition home or self-care (01) ==
LOC: ED 12:00
PROVIDERS: Emergency Provider Emergency Medicine; Family Provider Internal Medicine; PCP Internal Medicine
DX: T28.0XXA Burn of mouth and pharynx, initial encounter (principal); X10.1XXA Contact with hot food, initial encounter; Y93.9 Activity, unspecified; Y92.89 Other specified places as the place of occurrence of the external cause; Y99.9 Unspecified external cause status; F17.200 Nicotine dependence, unspecified, uncomplicated; F41.9 Anxiety disorder, unspecified
CPT/HCPCS: 99282

== ENCOUNTER 2019-07-11 16:36 | Emergency (ER) | payer MEDICAID, SELFPAY ==
[2019-07-11 16:38] VITALS: BP 119/84; PULSE 124; RESP 20; TEMP 37.3; O2SAT 98; BMI 29.4
[2019-07-11 17:05] LABS: Hematocrit 47.6 % (37-47); Hemoglobin 16.1 g/dL (12.0-15.0); Mean Corpuscular Hgb 30.1 pg (27.0-32.0); Red Blood Count 5.35 M/mm3 (4.2-5.4); White Blood Count 10.6 K/mm3 (4.4-11.0)
[2019-07-11 17:06] LABS: Basophil% 0.3 % (0-1); Eosinophils% 0.2 % (0-5); Lymphocyte % 9.8 % (19-41); Mean Corp Hgb Conc 33.8 g/dL (32-36); Mean Platelet Vol. 11.4 fl (6.2-12.0); Monocyte% 4.8 % (0-10); Neutrophil % 84.6 % (47-70); POSITIVE COUNT NO; POSITIVE DIFFERENTIAL NO; POSITIVE MORPHOLOGY NO; Platelet Count 212 K/mm3 (150-450); RBC Distribution Width CV 13.9 % (11.6-14.6); RBC Distribution Width SD 45.1 fl (35.1-43.9)
[2019-07-11 17:07] LABS: Absolute Lymphocyte Count 1.04 X10^3/uL (0.83-4.51); Basophil# 0.03 X10^3/uL; Eosinophil# 0.02 X10^3/uL; Lymphocyte # 1.04 X10^3/ul (4.0); Monocyte# 0.51 X10^3/uL; Neutrophil # 8.99 X10^3/uL (2.7-7.7)
[2019-07-11] MEDS: 0.9% Normal Saline 1,000 ML 1000 ML IV (17:10)
[2019-07-11] MEDS: Ondansetron 4 MG/2 ML Vial IV (17:10)
[2019-07-11] MEDS: Loperamide 2 MG Capsule 4 MG PO (17:10)
[2019-07-11 17:11] LABS: Anion Gap 6 (5-15); BUN 9 mg/dL (7-18); BUN/Creat Ratio 9.8 RATIO (10-20); Calcium,Total 8.7 mg/dL (8.5-10.1); Chloride 104 mmol/L (98-107); Creatinine, Serum 0.92 mg/dL (0.55-1.02); EST Glomerular Filtration Rate 71 mL/min (>60); Est Glom Filt Rate - Afr Amer 85 mL/min (>60); Estimated Creatinine Clearance 69.49 ml/min; Glucose 108 mg/dL (74-106); Potassium 3.2 mmol/L (3.5-5.1); Sodium Level 135 mmol/L (136-145)
[2019-07-11] MEDS: Dicyclomine 20 MG/2 ML Vial IM (17:13)
[2019-07-11 17:36] VITALS: BP 114/76; PULSE 96; RESP 16; O2SAT 99
[2019-07-11 17:41] LABS: Lactic Acid 1.2 mmol/L (0.4-2.0)
[2019-07-11 18:56] VITALS: BP 122/80; PULSE 99; RESP 16; O2SAT 96
--- NOTE | 2019-07-11 19:43 | ED.VISSUMM ---
- ER Visit Summary Date of Service: 07/11/19 Chief Complaint: [Vomiting and diarrhea] History of Present Illness: The patient is a 44 F [presents with symptoms that started around 2:30 AM. Patient complains of frequent watery stools every hour. Patient has had vomiting as well but has not thrown up in the last 4 5 hours. Patient describes some diffuse abdominal discomfort and cramping. Patient also noted some blood on the toilet paper when she wiped. Patient denies any fevers. Denies urinary symptoms. Patient states that she was on antibiotics 2 months ago for a dental infection and root canal that she had. Patient does have a history of GERD and IBS as well as history of a hiatal hernia. Patient has had prior cholecystectomy and a LEEP procedure.] Physical Examination: [HEENT-PERRLA, EOMI. Cranial nerves II through XII grossly intact. TMs clear. Mucous membranes moist. No adenopathy. Cardiovascular-regular rate and rhythm without murmur or ectopy Lungs-clear to auscultation, chest wall stable without crepitus or subcu emphysema Abdomen-normoactive bowel sounds, soft. Patient has tenderness palpation at mild over the epigastric region. No tenderness over McBurney's. There is no rebound, rigidity, or perineal signs. Extremities-intact ?4, normal range of motion, normal pulses, atraumatic] Test Results: [CBC with differential obtained showed white count 10.6, hemoglobin 16, hematocrit 48, placed 212. Chemistries unremarkable other than a slightly depressed potassium at 3.2. Lactate was 1.2. C. difficile was negative. Enteric pathogens pending.] Emergency Department Course and Treatment: [He was given a liter normal same fluid bolus. Patient was given Zofran and Bentyl. Patient did feel improved. At this point patient is asking to be discharged home.] Treatment Plan: [Patient will be given a prescription for Bentyl and Zofran. Patient advised to push fluids. Patient to follow-up with primary care physician within next 2 to 3 days. Patient advised to return if worsening pain, fever, persistent vomiting, dehydration, or condition should worsen anyway.] Disposition: [Discharged home in stable condition] Impression: [Viral gastroenteritis] This note was generated with [employer] software. It may contain incorrect words, spelling, and punctuation that were not noted in review of the chart prior to signing ED Disposition - Plan for ED Patient: Referrals: Isatu Fishman MD [Primary Care Provider] -
--- NOTE | 2019-07-11 19:46 | ED.DEP ---
ED Disposition - Plan for ED Patient: Instructions: GASTROENTERITIS, Viral (5y-Adult) Prescriptions: Dicyclomine HCl [Bentyl] 20 mg PO TIDAC #20 cap Prescription Printed Ondansetron [Zofran Odt] 4 mg PO Q8H PRN PRN #10 tab PRN Reason: Nausea Prescription Printed Referrals: Isatu Fishman MD [Primary Care Provider] - 3-5 Days
[2019-07-11 19:50] VITALS: BP 116/80; PULSE 100; RESP 16; O2SAT 97
--- NOTE | 2019-07-12 09:34 | ED.RN ---
CALLED AND LEFT MESSAGE AT THIS TIME ABOUT TEST RESULTS. SPOKE WITH DR. MONAHAN NO TREATMENT FOR NOROVIRSUS. JUST TO MAKE PATIENT AWARE
--- NOTE | 2019-07-12 10:11 | ED.RN ---
PATIENT CALLED BACK AND MADE AWARE OF TEST RESULTS. PATIENT UNDERSTANDS INSTRUCTIONS WITH NO QUESTIONS AT THIS TIME
== END 2019-07-11 19:51 | disposition home or self-care (01) ==
LOC: ED 17:08
PROVIDERS: Emergency Provider Emergency Medicine; Family Provider Internal Medicine; PCP Internal Medicine
DX: A08.4 Viral intestinal infection, unspecified (principal); K21.9 Gastro-esophageal reflux disease without esophagitis; K44.9 Diaphragmatic hernia without obstruction or gangrene; K58.9 Irritable bowel syndrome, unspecified; Z90.49 Acquired absence of other specified parts of digestive tract
CPT/HCPCS: 80048; 83605; 85025; 87493; 87506; 96361; 96372; 96374; 99285; J7030; A4216; J2405

== ENCOUNTER → 2019-07-16 10:51 | Outpatient (CLI) | payer MEDICAID, SELFPAY ==
[2019-07-16 09:38] VITALS: BMI 29.7
--- NOTE | 2019-07-16 10:54 | RAD_ITS ---
STUDY: X-RAY CHEST REASON FOR EXAM: Female, 44 years old. Chest pain times several years, getting worse, dyspnea TECHNIQUE: PA and lateral views of the chest. COMPARISON: Prior study of 10/17/2016 FINDINGS: The lungs are clear and expanded. There is no demonstrated pleural abnormality. Normal size heart. Normal mediastinum and ish. Normal visualized pulmonary arteries. Normal visualized aortic arch and descending thoracic aorta. There are diffuse degenerative changes of the visualized thoracic spine. Normal visualized ribs, clavicles, and shoulders. There is no demonstrated abnormality of the visualized soft tissue structures of the upper abdomen. RAD/Chest PA and Lateral IMPRESSION: Degenerative changes, as described above. No demonstrated acute cardiopulmonary process. Electronically Signed: Bill Soriano MD at 23:28 EDT , Service support ,
== END ==
PROVIDERS: Family Provider Internal Medicine; PCP Internal Medicine; Referring Provider Physician Assistant Medical; Visit Provider Physician Assistant Medical
DX: R07.9 Chest pain, unspecified (principal); R06.02 Shortness of breath
CPT/HCPCS: 71046

== ENCOUNTER → 2019-08-06 08:36 | Outpatient (CLI) | payer MEDICAID, SELFPAY ==
[2019-07-16 09:38] VITALS: BMI 29.7
--- NOTE | 2019-08-06 08:39 | US_ITS ---
STUDY: ULTRASOUND BREAST - RIGHT REASON FOR EXAM: Female, 44 years old. History of bilateral nipple discharge. TECHNIQUE: Axial and longitudinal images of the RIGHT breast were performed with a high resolution ultrasound transducer. COMPARISON: Comparison is made with prior mammogram done earlier in the day as well as prior ultrasound of the right breast dated August 28, 2016. FINDINGS: RIGHT Breast: The retroareolar region of the right breast was examined by ultrasound. Mild degree of dilated retroareolar ducts. IMPRESSION: Mild degree of retroareolar ductal dilatation. ASSESSMENT CATEGORY: BIRADS Category 2: Benign. A letter regarding these results will be sent to the patient by the facility within 30 days. Electronically Signed: Gus Wade, at 10:03 EDT , Service support , STUDY: ULTRASOUND BREAST - LEFT REASON FOR EXAM: Female, 44 years old. Bilateral nipple discharge. TECHNIQUE: Axial and longitudinal images of the LEFT breast were performed with a high resolution ultrasound transducer. COMPARISON: Comparison is made with prior mammogram done earlier today. FINDINGS: LEFT Breast: The retroareolar region of the left breast was examined by ultrasound. There is a 9 mm x 10 mm x 5 mm well-defined cystic nodule with posterior acoustical shadowing and low level echoes within it. This is located just medial to the areolar complex. This may represent a complex cyst. Aspiration is recommended. US/Breast Limited Unilateral IMPRESSION: Findings suggestive of a 9 mm x 10 mm x 5 mm complex cyst in the slightly medial aspect of the left alveolar complex. Aspiration is recommended. ASSESSMENT CATEGORY: BIRADS Category 4: Suspicious - Biopsy Should Be Considered. A letter regarding these results will be sent to the patient by the facility within 30 days. Electronically Signed: Gus Wade, at 10:04 EDT , Service support ,
--- NOTE | 2019-08-06 08:39 | BI_ITS ---
MAMMOGRAPHY - BILATERAL DIAGNOSTIC REASON FOR EXAM: Female, 44 years old. Bilateral nipple discharge. PERTINENT HISTORY: Grandmother with breast cancer. TECHNIQUE: Digital bilateral breast yuniel (3D mammographic acquisition) in the CC and MLO projections. 2-D mediolateral oblique (MLO) and craniocaudad (CC) views of both breasts were obtained. CAD: Full Field Digital Mammography with Computer Added Detection was performed. COMPARISON: Comparison is made with prior examination dated March 14, 2019 and November 26, 2017. FINDINGS: Breast Composition: There are scattered areas of fibroglandular density. There are no dominant masses or suspicious calcifications. Stable small benign-appearing bilateral axillary. Stable 7.5 mm well-defined nodule with central hilum in the upper outer aspect of the right breast. No other significant abnormalities are identified. There has been no significant change since the prior study. BI/DIAG MAMM W/CAD, BILAT IMPRESSION: Stable bilateral diagnostic mammogram. With the patient's history of bilateral breast discharge, correlation with ultrasound is recommended. ASSESSMENT CATEGORY: BIRADS Category 0: Incomplete. Need additional imaging evaluation. A letter regarding these results will be sent to the patient by the facility within 30 days. Approximately 10% of breast cancers are not detected by mammography. A normal mammogram should not delay biopsy of a clinically suspicious abnormality. Electronically Signed: Gus Wade, at 11:14 EDT , Service support ,
== END ==
PROVIDERS: Family Provider Internal Medicine; PCP Internal Medicine; Referring Provider Obstetrics & Gynecology; Visit Provider Obstetrics & Gynecology
DX: N63.20 Unspecified lump in the left breast, unspecified quadrant (principal); N64.52 Nipple discharge; Z80.3 Family history of malignant neoplasm of breast
CPT/HCPCS: 76642; 77062; 77066; G0279

== ENCOUNTER → 2019-08-29 11:46 | Outpatient (CLI) | payer MEDICAID, SELFPAY ==
[2019-08-13 14:27] VITALS: BMI 29.7
--- NOTE | 2019-08-29 11:49 | US_ITS ---
STUDY: ULTRASOUND BREAST - LEFT REASON FOR EXAM: Female, 44 years old. Ultrasound guided left breast biopsy. TECHNIQUE: Axial and longitudinal images of the LEFT breast were performed with a high resolution ultrasound transducer. COMPARISON: Comparison is made with prior sonogram dated August 06, 2019. FINDINGS: LEFT Breast: Under direct sonographic guidance, the surgeon performed 3 core biopsies of the 1 cm x 0.9 cm x 0.6 cm nodule at the 9:00 position of the breast. US/US Breast Biopsy 1st Lesion IMPRESSION: Ultrasound guided biopsy of the nodular density at the 9:00 position of the breast adjacent to the nipple. ASSESSMENT CATEGORY: BIRADS Category 2: Benign. A letter regarding these results will be sent to the patient by the facility within 30 days. Electronically Signed: Gus Wade, at 15:53 EDT , Service support ,
--- NOTE | 2019-08-29 12:30 | BRBX_PTH ---
PATIENT: VINOD PHAN LOC: OPUS U#:[id number] AGE/SX: 50/F ROOM: RE08/29/[address]: Dr. Charlie Watson MD : 1975 BED: DIS: SPEC #: [id number] RECD: 08/29/19 13:10 STATUS: MILVIA RE #: [id number] HERMINIA: 08/29/19 12:[address]: Charlie Watson DEPT: SURGICAL PATHOLOGY RECD BY: Ricki Morrison ENTERED: 08/29/19 13:20 SP TYPE: BREAST BX OTHR DR: Dr. Isatu Fishman MD Tissues: Left breast, NOS Procedures: Surgery Specimen Level IV HEADER OPERATION: Left breast biopsy PRE-OP DIAGNOSIS: Left breast mass TISSUE SUBMITTED: Left breast ISCHEMIC TIME: 60 seconds FIXATION TIME: 55 hours MICROSCOPIC DIAGNOSIS Left breast mass, core biopsy: Fibrosis with associated benign histiocytic proliferation, chronic inflammation and focal acute inflammation. Focal fat necrosis and keratin-like debris. No evidence of malignancy. AM:sakshi 09/01/19 COMMENT Clinical correlation is suggested. A ruptured cyst is a possibility. Case has been reviewed in consultation with Dr. Freitas who concurs with the above diagnosis. IDC:[email or web address] MICROSCOPIC DESCRIPTION Slides are reviewed. GROSS DESCRIPTION Received in fixative is one container labeled with the patient's name and designated left breast. The specimen consists of multiple elongated fragments of duarte-yellow fibroadipose tissue that in aggregate measure 2 x 0.5 x 0.1 cm. The entire specimen is submitted in one cassette. / SJ:sakshi 08/29/19 TC:2 CPT: 58461
--- NOTE | 2019-08-29 12:40 | PCM.OPRPT ---
Problem List (1) Abnormal mammogram of left breast Status: Acute Report of Operation Date of Procedure: 08/29/19 Pre-Operative Diagnosis: Abnormal mammogram/ultrasound left breast Post-Operative Diagnosis: Same Surgery/Procedure Performed:: Ultrasound-guided handheld mammotome breast biopsy left breast Type of Anesthesia:: Local Description of Procedure: Patient was brought into the ultrasound room. Ultrasound of the left breast on the medial aspect was performed. Lesion was identified. The breast was prepped with chlorhexidine. Local was injected. I injected local posterior to the lesion. A skin pawan was made. Under ultrasound guidance hand-held mammotome needle was directed posterior to the lesion. Under ultrasound guidance numerous biopsies were obtained. Under ultrasound guidance a small titanium clip was placed. Sterile dressings were applied. The patient tolerated the procedure well. - Admit VTE Documentation VTE Present on Admission: No VTE Mechan Device Prophylaxis: None VTE Pharm Prophylaxis ordered?: No Reason prophylaxis not ordered:: Treatment Not Indicated
--- NOTE | 2019-08-29 12:43 | HP.PCM_ITS ---
Problem List (1) Abnormal mammogram of left breast Status: Acute History and Physical Date of Admission: 08/29/19 [facility] [address] [place], [place] [id number] OFFICE VISIT Date of Service: 08/08/19 MR#: [id number] Acct: [id number] Name: VINOD PHAN Rep #: [id number] : 1975 Provider: Charlie grady MD Age/Sex: 44/F Location: [facility] Status: Signed Intake Vital Signs 08/08/19 Body Mass Index (BMI) 29.7 08/08/19 Height 5 ft 5 in 08/08/19 Weight: 177 lb 08/08/19 Body Mass Index (BMI) 29.4 08/08/19 Blood Pressure 139/81 H 08/08/19 Blood Pressure Location Rt brachial 08/08/19 Respiratory Rate 16 Intake Visit Reasons: Rt Breast Bloody Discharge Mammo [facility] 08/06 Campus Receptionist Required: No Is patient in pain?: No Allergies fenofibrate Allergy (Severe, Verified 08/08/19 10:45) Hives cephalexin Allergy (Verified 08/08/19 10:45) Hives sertraline HCl [From Zoloft] Allergy (Verified 08/08/19 10:45) Hives Medications Omeprazole 40 mg PO DAILY 03/03/18 [History Confirmed 08/08/19] Dicyclomine HCl 20 mg PO DAILY 03/14/18 [History Confirmed 08/08/19] multivitamin,zx-svbr-qsosjmjf tablet 1 tab PO DAILY 07/02/19 [History Confirmed 08/08/19] quetiapine 25 mg tablet 25 mg PO QHS PRN tab 07/02/19 [History Confirmed 08/08/19] aripiprazole 15 mg tablet 15 mg PO DAILY tab 08/08/19 [History Confirmed 08/08/19] calcium carbonate 500 mg calcium (1,250 mg) tablet 500 mg PO DAILY 08/08/19 [History Confirmed 08/08/19] cholecalciferol (vitamin D3) 1,000 unit capsule 1,000 unit PO DAILY 08/08/19 [History Confirmed 08/08/19] potassium 99 mg tablet 10 meq PO DAILY 08/08/19 [History Confirmed 08/08/19] PFSH Medical History Lung nodule (Chronic) Nicotine abuse (Chronic) Chest pain (Chronic) Shortness of breath (Chronic) Intermittent palpitations (Chronic) Dizziness (Chronic) 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) Anxiety (Chronic) Depression (Chronic) Panic attacks (Chronic) Surgical History H/O LEEP (Resolved) History of cholecystectomy (Resolved) Family History Father Hypertension Colon cancer Mother Lung cancer Grandmother Breast cancer Social History (Updated 08/09/19 @ 09:19 by Charlie Watson MD) Smoking Status: Current every day smoker alcohol intake: current HPI HPI HPI: VINOD PHAN, is a 44 F who presents to the office today for HPI HPI Surgical H&P: Yes HPI: VINOD PHAN, is a 44 F who presents to the office today for Evaluation for right-sided nipple discharge as well as a mass in the medial aspect of the left nipple area. Patient had mammograms and ultrasounds completed which showed a mild degree of retroareolar ductal dilatation on the right side but no masses and on the left side there was a 10 mm complex cyst slightly to the medial aspect of the nipple area for which they give this a BI-RADS Category 4 and recommended a biopsy.The patient has not been complaining of nipple discharge on the left. ROS General General: Yes weight change and fatigue; no appetite, colon cancer, breast cancer or weakness HEENT HEENT: No difficulty swallowing, eye injury, eye surgery, swollen glands or hoarseness Endo Endocrine: No thyroid disease, diabetes mellitus, thyroid cancer, Hair loss, heat intolerance or cold intolerance Skin Skin: No rash or changing moles Breast Breast: Yes left breast lump, nipple discharge (Milky), abnormal mammogram and abnormal US; no right breast lump, breast pain or breast enlargement Musc Musculoskeletal: Yes back problems and arthritis; no rheumatoid arthritis, gout or joint pain Cardio Cardiovascular: No murmur, pacemaker, heart disease, atrial fibrillation, high blood pressure, heart attack, heart stent, palpitations, shortness of breat with exertion or chest pain Psych Psychiatric: Yes depression and anxiety; no hearing voices Resp Respiratory: No shortness of breath, No sleep apnea, No cough, No COPD, No asthma, No emphysema, No wheezing Gastro Gastrointestinal: Yes abdominal pain, Yes nausea or vomiting, Yes diarrhea, Yes constipation, Yes blood in stool, Yes acid reflux, No hemorrhoids, Yes ulcers, Yes gallbladder problem, No black,tarry stools Osvaldo Hematologic: No blood thinners, No blood disorders, No bleeding, No anemia, No blood clots Neuro Neurologic: No system reviewed and no additional complaints, except as docu, No as per HPI, No abnormal walking, No abnormal hearing, No abnormal movements, No abnormal speech, No behavioral changes, No burning sensations, No confusion, No seizure-like activity, No unsteadiness, No dizziness, No localized weakness, No frequent falls, No headache(s), No lack of coordination, No loss of vision, No memory loss, No numbness, No other visual disturbances, No radiating pain, No restless legs, No sensory deficit, No fainting, No tingling, No tremor(s), No weakness, No other Exam HENMT Head: normal to inspection, normocephalic, atraumatic Mouth: oropharynx normal, moist mucous membranes Eyes General: appearance normal, both eyes and all related structures Sclera: sclerae normal Neck Neck: trachea midline, no lymphadenopathy noted Neck mass: No Thyroid: thyroid normal Lymphatic: no lymphadenopathy noted Chest Breast inspection: normal inspection of the breasts Breast Palpation: Yes nipple discharge (Milky) lrb: Right Other: There is firmness to the medial aspect of the left nipple. Resp Other: Respiratory Exam: Deferred Cardio Heart Sounds: no murmurs Other: Cardiac Exam: Deferred GI Other: GI Exam: Deferred Other: Rectal Exam: Deferred Extrem Other: Extremity Exam: Deferred Assessment & Plan Problems 1. Abnormal mammogram of left breast R92.8 Plan My plan is to perform an ultrasound-guided needle core biopsy on the left side. On the right side I do not think there is anything to be done at this time other than observation. Coding Level of Care Code Off vis,new,level 3 Diagnoses Abnormal mammogram of left breast R92.8 08/09/19 0919 <Electronically signed by Charlie frye MD> Date _ Charlie De Leon Signature: Date (if applicable) CC: Chris Horvath MD ~ I have re-examined the patient. There are no clinical changes since date of exam.
== END ==
PROVIDERS: Family Provider Internal Medicine; PCP Internal Medicine; Referring Provider Surgery; Visit Provider Surgery
DX: R92.8 Other abnormal and inconclusive findings on diagnostic imaging of breast (principal); N63.20 Unspecified lump in the left breast, unspecified quadrant; N64.1 Fat necrosis of breast; F17.200 Nicotine dependence, unspecified, uncomplicated; F32.9 Major depressive disorder, single episode, unspecified; F41.9 Anxiety disorder, unspecified
CPT/HCPCS: 19083; 88305

== ENCOUNTER 2019-08-31 01:08 | Emergency (ER) | payer MEDICAID, SELFPAY ==
[2019-08-13 14:27] VITALS: BMI 29.7
[2019-08-31 01:08] VITALS: BP 142/86; PULSE 78; RESP 15; TEMP 36.3; O2SAT 100; BMI 28.5
--- NOTE | 2019-08-31 01:23 | ED.VISSUMM ---
- ER Visit Summary Date of Service: 08/31/19 Chief Complaint: [Wound check ] History of Present Illness: The patient is a 44 F [presents to the emergency department concerned about her biopsy site on her left breast. Patient states that she had a biopsy of a small mass [address] Charlie Watson performed the biopsy. This evening she noted a small spot of blood on the dressing and became concerned. Patient denies any fevers. Patient has history of high cholesterol.] Physical Examination: [HEENT-PERRLA, EOMI. Cranial nerves II through XII grossly intact. TMs clear. Mucous membranes moist. No adenopathy. Cardiovascular-regular rate and rhythm without murmur or ectopy. Left breast-patient has dressing intact with a small central spot of dark blood on the dressing. Patient has Steri-Strips that are intact. Lungs-clear to auscultation, chest wall stable without crepitus or subcu emphysema Abdomen-normoactive bowel sounds, soft, nontender, no rebound or rigidity, no peritoneal signs. Extremities-intact ?4, normal range of motion, normal pulses, atraumatic] Test Results: [None indicated] Emergency Department Course and Treatment: [None indicated. New dressing was applied.] Treatment Plan: [Follow-up with your surgeon as instructed. Patient advised to return if fever, increased pain, redness, swelling, or conditions worsen anyway.] Disposition: [Discharged to home in stable condition] Impression: [Wound check-no infection, no active bleeding] This note was generated with [employer] dictation software. It may contain incorrect words, spelling, and punctuation that were not noted in review of the chart prior to signing ED Disposition - Plan for ED Patient: Referrals: Isatu Fishman MD [Primary Care Provider] -
--- NOTE | 2019-08-31 01:25 | ED.DEP ---
ED Disposition - Plan for ED Patient: Instructions: POST OP WOUND CHECK, Bleeding Referrals: Isatu Fishman MD [Primary Care Provider] - Charlie Watson MD [STAFF PHYSICIAN] - 5-7 Days
[2019-08-31 01:32] VITALS: RESP 16
== END 2019-08-31 01:56 | disposition home or self-care (01) ==
LOC: ED 01:42
PROVIDERS: Emergency Provider Emergency Medicine; Family Provider Internal Medicine; PCP Internal Medicine
DX: Z48.00 Encounter for change or removal of nonsurgical wound dressing (principal); E78.00 Pure hypercholesterolemia, unspecified; Z72.0 Tobacco use
CPT/HCPCS: 99282

== ENCOUNTER → 2019-09-29 11:08 | Outpatient (CLI) | payer MEDICAID, SELFPAY ==
[2019-07-16 09:38] VITALS: BMI 29.7
[2019-08-31 01:08] VITALS: BMI 28.5
--- NOTE | 2019-09-29 12:55 | STRESSREP ---
Stress Test Report Exercise stress test. 44-year-old lady with a history of chest pain. Stress protocol: Resting EKG demonstrates normal sinus rhythm with a rate of 74 bpm normal intervals are noted resting blood pressures 138/90 mmHg. Patient exercised according to regular Robert protocol for total duration of 6 minutes the maximum heart rate attained was 146 bpm which was 93% of maximum predicted heart rate the maximum workload was 7 metabolic equivalents. The patient maintained sinus rhythm throughout the recording. At rest there were no ST or T wave changes noted suggest ischemia, at peak exercise upsloping ST changes only were noted with no meet the criteria for ischemia. No clinical angina was noted. Resting blood pressure was 138/90 with a peak blood pressure 142/86 mmHg. Conclusion: Exercise stress test with no EKG criteria for ischemia at a high workload. No clinical angina noted
== END ==
PROVIDERS: Family Provider Internal Medicine; PCP Internal Medicine; Referring Provider Physician Assistant Medical; Visit Provider Physician Assistant Medical
DX: R07.9 Chest pain, unspecified (principal)
CPT/HCPCS: 93017

== ENCOUNTER → 2019-11-11 11:00 | Outpatient (CLI) | payer MEDICAID, SELFPAY ==
[2019-11-11 13:52] VITALS: BMI 28.5
== END ==
PROVIDERS: Family Provider Internal Medicine; PCP Internal Medicine; Visit Provider Surgery
DX: N61.1 Abscess of the breast and nipple (principal)
CPT/HCPCS: 87070; 87075; 87205

== ENCOUNTER 2019-12-01 10:22 | Day surgery (SDC) | payer MEDICAID, SELFPAY ==
--- NOTE | 2019-08-09 09:19 | HP_ITS ---
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 Is patient in pain?: No Allergies fenofibrate Allergy (Severe, Verified 08/08/19 10:45) Hives cephalexin Allergy (Verified 08/08/19 10:45) Hives sertraline HCl [From Zoloft] Allergy (Verified 08/08/19 10:45) Hives Medications Omeprazole 40 mg PO DAILY 03/03/18 [History Confirmed 08/08/19] Dicyclomine HCl 20 mg PO DAILY 03/14/18 [History Confirmed 08/08/19] multivitamin,pt-qryz-cqbcjuui tablet 1 tab PO DAILY 07/02/19 [History Confirmed 08/08/19] quetiapine 25 mg tablet 25 mg PO QHS PRN tab 07/02/19 [History Confirmed 08/08/19] aripiprazole 15 mg tablet 15 mg PO DAILY tab 08/08/19 [History Confirmed 08/08/19] calcium carbonate 500 mg calcium (1,250 mg) tablet 500 mg PO DAILY 08/08/19 [History Confirmed 08/08/19] cholecalciferol (vitamin D3) 1,000 unit capsule 1,000 unit PO DAILY 08/08/19 [History Confirmed 08/08/19] potassium 99 mg tablet 10 meq PO DAILY 08/08/19 [History Confirmed 08/08/19] FOR[facility]LY [facility] Medical History Lung nodule (Chronic) Nicotine abuse (Chronic) Chest pain (Chronic) Shortness of breath (Chronic) Intermittent palpitations (Chronic) Dizziness (Chronic) 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) Anxiety (Chronic) Depression (Chronic) Panic attacks (Chronic) Surgical History H/O LEEP (Resolved) History of cholecystectomy (Resolved) Family History Father Hypertension Colon cancer Mother Lung cancer Grandmother Breast cancer Social History (Updated 08/09/19 @ 09:19 by Charlie Watson MD) Smoking Status: Current every day smoker alcohol intake: current HPI HPI HPI: VINOD PHAN, is a 44 F who presents to the office today for HPI HPI Surgical H&P: Yes HPI: VINOD PHAN, is a 44 F who presents to the office today for Evaluation for right-sided nipple discharge as well as a mass in the medial aspect of the left nipple area. Patient had mammograms and ultrasounds completed which showed a mild degree of retroareolar ductal dilatation on the right side but no masses and on the left side there was a 10 mm complex cyst slightly to the medial aspect of the nipple area for which they give this a BI-RADS Category 4 and recommended a biopsy.The patient has not been complaining of nipple discharge on the left. ROS General General: Yes weight change and fatigue; no appetite, colon cancer, breast cancer or weakness HEENT HEENT: No difficulty swallowing, eye injury, eye surgery, swollen glands or hoarseness Endo Endocrine: No thyroid disease, diabetes mellitus, thyroid cancer, Hair loss, heat intolerance or cold intolerance Skin Skin: No rash or changing moles Breast Breast: Yes left breast lump, nipple discharge (Milky), abnormal mammogram and abnormal US; no right breast lump, breast pain or breast enlargement Musc Musculoskeletal: Yes back problems and arthritis; no rheumatoid arthritis, gout or joint pain Cardio Cardiovascular: No murmur, pacemaker, heart disease, atrial fibrillation, high blood pressure, heart attack, heart stent, palpitations, shortness of breat with exertion or chest pain Psych Psychiatric: Yes depression and anxiety; no hearing voices Resp Respiratory: No shortness of breath, No sleep apnea, No cough, No COPD, No asthma, No emphysema, No wheezing Gastro Gastrointestinal: Yes abdominal pain, Yes nausea or vomiting, Yes diarrhea, Yes constipation, Yes blood in stool, Yes acid reflux, No hemorrhoids, Yes ulcers, Yes gallbladder problem, No black,tarry stools Osvaldo Hematologic: No blood thinners, No blood disorders, No bleeding, No anemia, No blood clots Neuro Neurologic: No system reviewed and no additional complaints, except as docu, No as per HPI, No abnormal walking, No abnormal hearing, No abnormal movements, No abnormal speech, No behavioral changes, No burning sensations, No confusion, No seizure-like activity, No unsteadiness, No dizziness, No localized weakness, No frequent falls, No headache(s), No lack of coordination, No loss of vision, No memory loss, No numbness, No other visual disturbances, No radiating pain, No restless legs, No sensory deficit, No fainting, No tingling, No tremor(s), No weakness, No other Exam HENMT Head: normal to inspection, normocephalic, atraumatic Mouth: oropharynx normal, moist mucous membranes Eyes General: appearance normal, both eyes and all related structures Sclera: sclerae normal Neck Neck: trachea midline, no lymphadenopathy noted Neck mass: No Thyroid: thyroid normal Lymphatic: no lymphadenopathy noted Chest Breast inspection: normal inspection of the breasts Breast Palpation: Yes nipple discharge (Milky) lrb: Right Other: There is firmness to the medial aspect of the left nipple. Resp Other: Respiratory Exam: Deferred Cardio Heart Sounds: no murmurs Other: Cardiac Exam: Deferred GI Other: GI Exam: Deferred Other: Rectal Exam: Deferred Extrem Other: Extremity Exam: Deferred Assessment & Plan Problems 1. Abnormal mammogram of left breast R92.8 Plan My plan is to perform an ultrasound-guided needle core biopsy on the left side. On the right side I do not think there is anything to be done at this time other than observation. Coding Level of Care Code Off vis,new,level 3 Diagnoses Abnormal mammogram of left breast R92.8 08/09/19 0919 <Electronically signed by Charlie frye MD> Date _ Charlie Watson MD
--- NOTE | 2019-10-06 07:40 | HP.PCM_ITS ---
History and Physical Date of Admission: 10/06/19 Danielle Ann a 44 year old female who is self referred for the evaluation of blood in stool. The patient was initially seen on 07/10/19. Labs were ordered, but not done. The patient reports a family history of colon cancer in that her father was diagnosed with the disease at age 68. ? ? The patient had a colonoscopy by [facility] 09/01/13 for reported diarrhea and family history. The procedure report is under scanned documents. Biopsy was negative. A hyperplastic polyp was removed from the sigmoid colon. She is overdue for screening. ? The patient has a history of anxiety for which she takes medication and [facility] She tells me that she is seeing someone regarding DDD. ? The patient has a history of chest pain and follows with Magan Villalobos. Her last encounter was with Nandini on 07/16/19. That note has been reviewed. EKG is r eported as normal. She is set for a nuclear stress test 08/25/19. ? ? Presenting complaint: The patient presents today reporting she had blood when I had a bowel movement the middle of June. It was dripping into the toilet. None since. No black stool. Having a bowel movement every morning. Not straining. She has concern since her father had colon cancer. She reports occasional discomfort just above the umbilicus related to bowel movements. ? Taking omeprazole daily for acid reflux. She sometimes gets a little breakthrough, but not severe enough to think of taking anything. Her last EGD was 2014. ? ?? PAST MEDICAL HISTORY ? Anxiety state, unspecified 11/20/2014 ? Bleeding stomach ulcer ? ? GERD (gastroesophageal reflux disease) ? ? Hiatal hernia 02/2015 ? Obesity (BMI 30-39.9) 11/20/2014 ? Other and unspecified hyperlipidemia 11/20/2014 ? 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 ? clean since , did have small relapse 02/15 with of mother ? ? PAST SURGICAL HISTORY ? PAST SURGICAL HISTORY OF ? 03/2010 ? gall bladder removed ? PAST SURGICAL HISTORY OF ? ? ? Left wrist surgery when she was 15 years old ? PAST SURGICAL HISTORY OF ? 2013 ? tubal ligation ? ? FAMILY HISTORY ? Cancer Mother ? ? lung, 63 years old ? Osteoporosis Mother ? ? Hypertension Father ? ? Breast Cancer Paternal Grandmother ? ? Alcohol/Drug Sister ? ? drugs ? other (Aids [Other]) Sister ? ? drug user ? Alcohol/Drug Mother ? ? alcohol ? Alcohol/Drug Father ? ? alcohol ? Alcohol/Drug Other ? ? neice ? Aneurysm Father ? ? abdominal ? Prostate Cancer Father ? ? Aneurysm Sister ? ? head ? ? CURRENT MEDICATIONS ? dicyclomine (BENTYL) 20 mg tablet TWICE A DAY ? ? ? QUEtiapine (SEROQUEL) 25 mg tablet ? ARIPiprazole (ABILIFY) 15 mg tablet Take 1 tablet by mouth once daily. ? 2 ? triamcinolone (KENALOG) 0.025 % lotn Apply 1 application to affected area twice daily. (Patient not taking: Reported on 07/10/2019 ) 1 Bottle 1 ? Omeprazole 40 mg capsule Take 1 capsule by mouth once daily. 30 capsule 11 ? CALCIUM ORAL Take by mouth. ? ? ? CALCIUM CARBONATE/VITAMIN D3 (VITAMIN D-3 ORAL) Take by mouth. ? ? ? POTASSIUM ORAL Take by mouth. ? ? ? hydrOXYzine pamoate (VISTARIL) 25 mg capsule Take 50 mg by mouth four times daily as needed. ? ? ? ARIPiprazole (ABILIFY) 10 mg tablet Take 10 mg by mouth daily at bedtime. ? ? ? multivitamin tablet Take 1 tablet by mouth once daily. ? SOCIAL HISTORY: Patient is single. She smokes 2 ppd. She reports her alcohol use as none for 7 months. She denies recreational drug use. ? REVIEW OF SYSTEMS: GENERAL: No weight loss, malaise or fevers RESPIRATORY: She smokes and has some coughing. Sees Pulmonary at [facility]. CARDIOVASCULAR: Denies HTN, chest pain or heart disease. She saw Nandini, as noted above. ST 08/25/19. GI: The patient states that her appetite has been good. She does get hungry. There has been no nausea, no vomiting. She denies dysphagia and denies odynophagia. There has not been indigestion and rarely heartburn. There has not been regurgitation. Bowel habits have been regular. There has not been diarrhea. There has not been constipation. The patient admits to bright red rectal bleeding. There has not been melena. Intermittent abdominal pain that is located above the umbilicus. 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 Had a tubal ligation. LMP: 2 months ago. MUSCULOSKELETAL: Reports back pain. Was seeing chiropractor. PSYCH: Positive for depression and depression. On medication and sees counselor. HEMATOLOGY/LYMPHOLOGY Negative for prolonged bleeding, bruising easily or swollen nodes ENDOCRINE: No thyroid or diabetes NEURO: No history of headaches, syncope, paralysis, seizures or tremors All other reviewed and negative other than HPI. ? PHYSICAL EXAMINATION: Blood pressure 129/77, pulse 91, height 167.6 cm (5' 6), weight 81.2 kg (179 lb). General Appearance: Well appearing, alert, in no acute distress, well-hydrated, well nourished. Skin: Skin color, texture, turgor normal, no suspicious rashes or lesions. Head: Normocephalic, no masses, lesions or abnormalities. Eyes: Anicteric sclera. Neck: Supple, no adenopathy; thyroid symmetric, normal size. Lungs: lungs clear to auscultation. No wheezing, rhonchi, rales. Heart: RRR without murmur. Abdomen: Normal abdominal exam, Abdomen soft, non-tender. Bowel sounds normal. No masses, organomegaly. Extremities: No deformities, edema, skin discoloration, clubbing or cyanosis. Peripheral Pulses: Normal. Neurologic: Gait normal. Sensation grossly intact. Rectal: Declined. Deferred until procedure per request. ? ? Impression: bright red rectal bleeding 2)family history of colon cancer 3)history of hyperplastic polyp removed in the past ? ? Plan: I suggested Miralax if her stools are hard or she strains. She denies either, but tells me she has Miralax at home. ? This patient will be scheduled for a colonoscopy with [facility]. She has to take a taxi for transportation and is insisting on [facility]. She will be using GoLytely as the prep. The preparation, as well as the procedure, has been explained in detail. The risks, benefits, anticipated outcomes and possible complications, including failure to complete the endoscopy and perforation, were mentioned. ?I explained the procedure in understandable terms and the patient was given printed material concerning the planned procedure. The patient had the opportunity to ask questions concerning the planned procedure. The patient freely consents to the planned procedure. ? The patient is asked to call with any questions for concerns, or should there be any change in health status between now and the scheduled procedure. ? I have personally interviewed and examined this patient. I have read the information the MA documented in this encounter. I spent 30 minutes in the visit, with more than 50% of the total [id number] time of the visit in counseling / coordination of care. ? Becki Wilson RN DIRECTOR TRAFFIC AND PLANNING.[employer]
[2019-11-18 13:20] VITALS: BMI 28.5
--- NOTE | 2019-12-01 | COLBX_PTH ---
PATIENT: VINDO PHAN LOC: EN U#:[id number] AGE/SX: 44/F ROOM: RE12/01/[address]: Dr. Debra Palomares MD : 1975 BED: DIS: 12/01/2019 SPEC #: [id number] RECD: 12/01/19 14:35 STATUS: MILVIA RETy #: [id number] HERMINIA: 12/01/19 00:[address]: Debra Palomares DEPT: SURGICAL PATHOLOGY RECD BY: Ricki Morrison ENTERED: 12/01/19 14:36 SP TYPE: COLON BX OTHR DR: Dr. Isatu Fishman MD Tissues: A - Right colon B - Transverse colon C - Left colon D - Sigmoid colon biopsy E - Rectum, NOS Procedures: Surgery Specimen Level IV HEADER OPERATION: Colonoscopy ([facility]) PRE-OP DIAGNOSIS: Blood in stool TISSUE SUBMITTED: A - Right colon biopsies, B - Transverse colon biopsies, C - Left colon biopsies, D - Sigmoid colon biopsies, E - Rectum biopsies MICROSCOPIC DIAGNOSIS A. Right colon, biopsy: Fragments of colonic mucosa, no pathologic diagnosis. B. Transverse colon, biopsy: Fragments of colonic mucosa, no pathologic diagnosis. C. Left colon, biopsy: Fragments of colonic mucosa, no pathologic diagnosis. D. Sigmoid colon, biopsy: Fragments of colonic mucosa, no pathologic diagnosis. E. Rectum, biopsy: Fragments of colonic mucosa, no pathologic diagnosis. ANUPAMA:sakshi 12/02/19 MICROSCOPIC DESCRIPTION Slides are reviewed. GROSS DESCRIPTION A - Received in fixative is one container labeled with the patient's name and designated right colon biopsy. The specimen consists of multiple irregular fragments of light duarte soft tissue that in aggregate measure 1.5 x 0.1 x 0.1 cm. The specimen is totally submitted in one cassette. B - Received in fixative is one container labeled with the patient's name and designated transverse colon biopsy. The specimen consists of multiple irregular fragments of light duarte soft tissue that in aggregate measure 0.5 x 0.4 x 0.1 cm. The specimen is totally submitted in one cassette. C - Received in fixative is one container labeled with the patient's name and designated left colon biopsy. The specimen consists of multiple irregular fragments of light duarte soft tissue that in aggregate measure 0.5 x 0.3 x 0.1 cm. The specimen is totally submitted in one cassette. D - Received in fixative is one container labeled with the patient's name and designated sigmoid colon biopsy. The specimen consists of two irregular fragments of light duarte soft tissue that in aggregate measure 0.4 x 0.2 x 0.1 cm. The specimen is totally submitted in one cassette. E - Received in fixative is one container labeled with the patient's name and designated rectum biopsy. The specimen consists of two irregular fragments of light duatre soft tissue that in aggregate measure 0.4 x 0.2 x 0.1 cm. The specimen is totally submitted in one cassette. / SJ:rg 12/01/19 TC:4 CPT: 82410 x5
--- NOTE | 2019-12-01 09:44 | PCM.HP.BLA ---
History and Physical Date of Admission: 12/01/19 Danielle Ann a 44 year old female who is self referred for the evaluation of blood in stool. The patient was initially seen on 07/10/19. She was scheduled for colonoscopy but had to cancel the morning of the procedure as her employer called her in. The patient reports a family history of colon cancer in that her father was diagnosed with the disease at age 68. ? The patient had a colonoscopy by [facility] 09/01/13 for reported diarrhea and family history. The procedure report is under scanned documents. Biopsy was negative. A hyperplastic polyp was removed from the sigmoid colon. She is overdue for screening. ? The patient has a history of anxiety for which she takes Abilify and [facility] She tells me that she is seeing someone regarding DDD. ? The patient has a history of chest pain and follows with Magan Villalobos. Her last encounter was with Nandini on 07/16/19. That note has been reviewed. EKG is reported as normal. She had a nuclear stress test 09/29/19. Conclusion: Exercise stress test with no EKG criteria for ischemia at a high workload. No clinical angina noted ? ? Presenting complaint: The patient presents today reporting that her bowel movements have increased in frequency, to several a day. She had blood with a bowel movement the middle of June. It was dripping into the toilet. None since. No black stool. Not straining. She has concern since her father had colon cancer. She reports occasional discomfort just above the umbilicus related to bowel movements. ? Taking omeprazole daily for acid reflux. She had a negative EGD in 2014 and declines one at present. ? ? REVIEW OF SYSTEMS: GENERAL: No weight loss, malaise or fevers RESPIRATORY: She smokes and has some coughing. Sees Pulmonary at [facility]. CARDIOVASCULAR: Denies HTN, chest pain or heart disease. She saw Nandini, as noted above. ST 09/29/19. GI: The patient states that her appetite has been good. She does get hungry. There has been no nausea, no vomiting. She denies dysphagia and denies odynophagia. There has not been indigestion and rarely heartburn. There has not been regurgitation. Bowel habits have been regular. There has not been diarrhea, but stools are more frequent. There has not been constipation. The patient admits to bright red rectal bleeding. There has not been melena. Intermittent abdominal pain that is located above the umbilicus. SUPPLIER RELATIONSHIP DIRECTOR: Negative for abnormal vaginal bleeding, abnormal vaginal discharge. Had a tubal ligation. LMP:11/04/19 . MUSCULOSKELETAL: Reports back pain. Was seeing chiropractor. PSYCH: Positive for depression and depression. On medication and sees counselor. HEMATOLOGY/LYMPHOLOGY Negative for prolonged bleeding, bruising easily or swollen nodes ENDOCRINE: No thyroid or diabetes NEURO: No history of headaches, syncope, paralysis, seizures or tremors All other reviewed and negative other than HPI. ? ? PAST MEDICAL HISTORY PAST MEDICAL HISTORY Diagnosis Date ? Anxiety state, unspecified 11/20/2014 ? Bleeding stomach ulcer ? ? GERD (gastroesophageal reflux disease) ? ? Hiatal hernia 02/2015 ? Obesity (BMI 30-39.9) 11/20/2014 ? Other and unspecified hyperlipidemia 11/20/2014 ? 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 ? clean since , did have small relapse 02/15 with of mother ? ? PAST SURGICAL HISTORY PAST SURGICAL HISTORY Procedure Laterality Date ? PAST SURGICAL HISTORY OF ? 03/2010 ? gall bladder removed ? PAST SURGICAL HISTORY OF ? ? ? Left wrist surgery when she was 15 years old ? PAST SURGICAL HISTORY OF ? 2013 ? tubal ligation ? ? FAMILY HISTORY FAMILY HISTORY Problem Relation Age of Onset ? Cancer Mother ? ? lung, 63 years old ? Osteoporosis Mother ? ? Hypertension Father ? ? Breast Cancer Paternal Grandmother ? ? Alcohol/Drug Sister ? ? drugs ? other (Aids [Other]) Sister ? ? drug user ? Alcohol/Drug Mother ? ? alcohol ? Alcohol/Drug Father ? ? alcohol ? Alcohol/Drug Other ? ? neice ? Aneurysm Father ? ? abdominal ? Prostate Cancer Father ? ? Aneurysm Sister ? ? head ? ? CURRENT MEDICATIONS Current Outpatient Medications Medication Sig Dispense Refill ? QUEtiapine (SEROQUEL) 25 mg tablet Take 2 tablets by mouth at bedtime as needed. ? ? ? cholecalciferol, Vitamin D3, (VITAMIN D3) 50,000 unit cap capsule Take 1 capsule by mouth one time a week. 12 capsule 0 ? ARIPiprazole (ABILIFY) 20 mg tablet Take 1 tablet by mouth once daily. ? ? ? Omeprazole 40 mg capsule Take 1 capsule by mouth once daily. 30 capsule 11 ? dicyclomine (BENTYL) 20 mg tablet Take 1 tablet by mouth twice daily as needed. 60 tablet 3 ? CALCIUM ORAL Take by mouth. ? ? ? POTASSIUM ORAL Take 1 tablet by mouth once daily. OTC ? hydrOXYzine pamoate (VISTARIL) 25 mg capsule Take 50 mg by mouth four times daily as needed. ? ? ? multivitamin tablet Take 1 tablet by mouth once daily. ? ? ? No current facility-administered medications for this visit. ? ? ? SOCIAL HISTORY: Patient is single. She smokes 2 ppd. She reports her alcohol use as none for 7 months. She denies recreational drug use. ? ? PHYSICAL EXAMINATION: Blood pressure 138/82, pulse 92, height 165.1 cm (5' 5), weight 82.6 kg (182 lb), last menstrual period 11/04/2019, SpO2 98 %. General Appearance: Well appearing, alert, in no acute distress, well-hydrated, well nourished. Skin: Skin color, texture, turgor normal, no suspicious rashes or lesions. Head: Normocephalic, no masses, lesions or abnormalities. Eyes: Anicteric sclera. Neck: Supple, no adenopathy; thyroid symmetric, normal size. Lungs: Lungs clear to auscultation. No wheezing, rhonchi, rales. Heart: RRR without murmur. Abdomen: Normal abdominal exam, Abdomen soft, non-tender. Bowel sounds normal. No masses, organomegaly. Extremities: No deformities, edema, skin discoloration, clubbing or cyanosis. Peripheral Pulses: Normal. Neurologic: Gait normal. Sensation grossly intact. Rectal: Declined. Deferred until procedure per request. ? ? Impression: bright red rectal bleeding 2)family history of colon cancer 3)history of hyperplastic polyp removed in the past ? ? Plan: I suggested Miralax if her stools are hard or she strains. She denies either, but tells me she has Miralax at home. ? This patient will be scheduled for a colonoscopy with [facility]. She has to take a taxi for transportation and is insisting on [facility]. She will be using Go[employer]ely as the prep. The preparation, as well as the procedure, has been explained in detail. The risks, benefits, anticipated outcomes and possible complications, including failure to complete the endoscopy and perforation, were mentioned. ?I explained the procedure in understandable terms and the patient was given printed material concerning the planned procedure. The patient had the opportunity to ask questions concerning the planned procedure. The patient freely consents to the planned procedure. ? The patient is asked to call with any questions for concerns, or should there be any change in health status between now and the scheduled procedure. ? I have personally interviewed and examined this patient. I have read the information the MA documented in this encounter. I spent 30 minutes in the visit, with more than 50% of the total [id number]-uo-[id number] time of the visit in counseling / coordination of care. ? Becki Wilson RN SYSTEMS ARCHITECT.BURIAL VAULT MAKER
[2019-12-01 10:43] VITALS: BP 141/83; PULSE 101; RESP 18; TEMP 36.4; O2SAT 99; BMI 30.5
[2019-12-01] MEDS: Lactated Ringers 1,000 ML 75 ML IV ×2 (10:48→12:03)
[2019-12-01 12:33] VITALS: BP 107/68; BP 141/83; PULSE 70; RESP 16; TEMP 36.4; O2SAT 100
--- NOTE | 2019-12-01 12:38 | OP.COLON_ITS ---
Patient Name: Danielle Ann Procedure Date: 12/01/2019 11:39 AM Date of : 1975 Age: 44 Procedure: Colonoscopy Indications: Hematochezia Providers: Debra Palomares MD Referring MD: Isatu Fishman Medicines: See the Anesthesia note for documentation of the administered medications Patient Profile: Refer to note in patient chart for documentation of history and physical. Last Colonoscopy: several years ago. Complications: No immediate complications. Procedure: Pre-Anesthesia Assessment: - see anesthesia note After I obtained informed consent, the scope was passed under direct vision. Throughout the procedure, the patient's blood pressure, pulse, and oxygen saturations were monitored continuously. The Colonoscope was introduced through the anus and advanced to the cecum, identified by appendiceal orifice and ileocecal valve. The colonoscopy was performed without difficulty. The patient tolerated the procedure well. The quality of the bowel preparation was inadequate. Pictures were taken of poor colon cleansing prepartion. Scope In: 12:09:45 PM Scope Withdrawal Time 0 hours 13 minutes 36 seconds Scope Out: 12:27:10 PM Total Procedure Duration Time 0 hours 17 minutes 25 seconds Findings: The perianal and digital rectal examinations were normal. Pertinent negatives include normal sphincter tone. Non-bleeding internal hemorrhoids were found. Biopsies for histology were taken with a cold forceps from the entire colon for evaluation of microscopic colitis. Impression: - Preparation of the colon was inadequate. - Non-bleeding internal hemorrhoids. - Biopsies were taken with a cold forceps from the entire colon for evaluation of microscopic colitis. Recommendation: - Discharge patient to home (ambulatory). - Resume previous diet. - Continue present medications. - Return to your nurse practitioner, Becki Wilson, in one- two weeks. . - Repeat colonoscopy in 5 years at age 49 as per ACS guidelines. Procedure Code(s): --- Professional --- 30873, Colonoscopy, flexible; with biopsy, single or multiple Diagnosis Code(s): --- Professional --- K92.1, Melena (includes Hematochezia) K64.8, Other hemorrhoids CPT copyright 2017 [employer]. All rights reserved. The codes documented in this report are preliminary and upon wooden fence erector review may be revised to meet current compliance requirements. MD Debra Means MD 12/01/2019 12:38:00 PM This report has been signed electronically. Number of Addenda: 0 Note Initiated On: 12/01/2019 11:39 AM
--- NOTE | 2019-12-01 12:38 | OP.CCLET_ITS ---
12/01/2019 Isatu Fishman [address] [phone] Re : Colonoscopy procedure for Danielle Ann Dear Dr. Fishman This procedure was performed on Sunday, December 01, 2019. My impressions and recommendations are as follows: Impressions : - Preparation of the colon was inadequate. - Non-bleeding internal hemorrhoids. - Biopsies were taken with a cold forceps from the entire colon for evaluation of microscopic colitis. Recommendations : - Discharge patient to home (ambulatory). - Resume previous diet. - Continue present medications. - Return to your nurse practitioner, Becki Wilson, in one- two weeks. . - Repeat colonoscopy in 5 years at age 49 as per ACS guidelines. My findings are described in the full procedure note, which is enclosed. If I can be of further assistance, please feel free to contact me at Doctor phone number(s): , Work: . Sincerely, MD Debra Means MD 12/01/2019 12:38:00 PM This report has been signed electronically.
[2019-12-01 12:40] VITALS: BP 131/73; BP 141/83; PULSE 62; RESP 16; O2SAT 100
[2019-12-01 12:45] VITALS: BP 129/70; BP 141/83; PULSE 71; RESP 16; O2SAT 100
[2019-12-01 12:48] VITALS: BP 132/77; BP 141/83; PULSE 68; RESP 16; TEMP 36.4; O2SAT 100
[2019-12-01 13:20] VITALS: BP 141/83
== END 2019-12-01 13:20 | disposition home or self-care (01) ==
LOC: EN 10:23 → AC 10:24
PROVIDERS: Family Provider Internal Medicine; PCP Internal Medicine; Referring Provider Internal Medicine; Visit Provider Surgery
PROC: 0DJD8ZZ Inspection of Lower Intestinal Tract, Via Natural or Artificial Opening Endoscopic (ICD-10-PCS; CPT 45378; principal; 2019-12-01 11:55)
DX: K92.1 Melena (principal); K64.8 Other hemorrhoids; Z80.0 Family history of malignant neoplasm of digestive organs; K21.9 Gastro-esophageal reflux disease without esophagitis; E78.5 Hyperlipidemia, unspecified; F41.9 Anxiety disorder, unspecified; F32.9 Major depressive disorder, single episode, unspecified; K44.9 Diaphragmatic hernia without obstruction or gangrene; K25.4 Chronic or unspecified gastric ulcer with hemorrhage; E66.9 Obesity, unspecified; F17.210 Nicotine dependence, cigarettes, uncomplicated; F10.21 Alcohol dependence, in remission; Z79.899 Other long term (current) drug therapy; Z80.3 Family history of malignant neoplasm of breast
CPT/HCPCS: 45380; 88305; J7120; J2405

== ENCOUNTER → 2020-01-19 09:03 | Outpatient (CLI) | payer MEDICAID, SELFPAY ==
[2020-01-08 14:53] VITALS: BMI 30.5
--- NOTE | 2020-01-19 09:04 | BI_ITS ---
MAMMOGRAPHY - UNILATERAL DIAGNOSTIC: RIGHT BREAST REASON FOR EXAM: Female, 44 years old. One-week history of a breast lump in the periareolar region with the tenderness. Left breast discharge. PERTINENT HISTORY: Grandmother with breast cancer. TECHNIQUE: Digital unilateral breast yuniel (3D mammographic acquisition) in the CC and MLO projections. 2-D mediolateral oblique (MLO) and craniocaudad (CC) views of both breasts were obtained. CAD: Full Field Digital Mammography with Computer Added Detection was performed. COMPARISON: Comparison is made with prior study dated March 14, 2019 and August 06, 2019. FINDINGS: Breast Composition: There are scattered areas of fibroglandular density. There now is evidence of a 1.2 cm nondescript nodular density in the inferior medial aspect of the periareolar region of the right breast. Correlation with ultrasound is recommended. Stable benign appearing right axillary lymph nodes. No other significant abnormalities are identified. BI/DIAG MAMM W/CAD, UNILAT IMPRESSION: New 1.2 cm nondescript nodular density in the inferior medial aspect of the periareolar region of the right breast. Correlation with ultrasound is recommended. ASSESSMENT CATEGORY: BIRADS Category 0: Incomplete. Need additional imaging evaluation. A letter regarding these results will be sent to the patient by the facility within 30 days. Approximately 10% of breast cancers are not detected by mammography. A normal mammogram should not delay biopsy of a clinically suspicious abnormality. Electronically Signed: Gus Wade, at 10:16 EDT , Service support ,
--- NOTE | 2020-01-19 09:04 | US_ITS ---
STUDY: ULTRASOUND BREAST - RIGHT REASON FOR EXAM: Female, 44 years old. Palpable lump in the right breast. TECHNIQUE: Axial and longitudinal images of the RIGHT breast were performed with a high resolution ultrasound transducer. # OF IMAGES: 13 COMPARISON: Comparison is made with prior mammogram done earlier in the day. FINDINGS: RIGHT Breast: The palpable abnormality corresponds to a 2.8 cm x 2.8 cm x 1 cm complex cystic/solid abnormality at the 3:00 position of the breast at 1 cm from the nipple. Increased vascularity is seen within. A biopsy/drainage is recommended. US/Breast Limited Unilateral IMPRESSION: 2.8 cm x 2.8 cm x 1 cm complex solid/cystic nodule corresponding to the palpable abnormality.. A biopsy/drainage is recommended. ASSESSMENT CATEGORY: BIRADS Category 4: Suspicious - Biopsy Should Be Considered. A letter regarding these results will be sent to the patient by the facility within 30 days. Electronically Signed: Gus Wade, at 10:19 EDT , Service support ,
== END ==
PROVIDERS: PCP Internal Medicine; Referring Provider Surgery; Visit Provider Surgery
DX: N63.10 Unspecified lump in the right breast, unspecified quadrant (principal); Z80.3 Family history of malignant neoplasm of breast; N64.52 Nipple discharge
CPT/HCPCS: 76642; 77061; 77065; G0279

== ENCOUNTER → 2020-03-16 10:52 | Outpatient (CLI) | payer MEDICAID, SELFPAY ==
[2020-03-16 09:24] VITALS: BMI 30.5
== END ==
PROVIDERS: PCP Surgery; Referring Provider Surgery; Visit Provider Surgery
DX: N61.1 Abscess of the breast and nipple (principal)
CPT/HCPCS: 87070; 87075; 87077; 87205

== ENCOUNTER 2020-04-13 13:16 | Emergency (ER) | payer MEDICAID, SELFPAY ==
[2020-03-16 09:24] VITALS: BMI 30.5
[2020-04-13 13:17] VITALS: BP 118/78; PULSE 101; RESP 18; TEMP 36.8; O2SAT 99; BMI 31.6
--- NOTE | 2020-04-13 14:02 | ED.VIS.GEN ---
History of Present Illness Chief Complaint: Wound Informant: Patient Onset: Yesterday Context: Gradual Onset Timing: Continuous Current Severity: Mild Maximum Severity: Moderate Narrative: The patient is an otherwise healthy 45-year-old female that presents to the emergency department with breast drainage. Patient is approximately 1 month status post incision and drainage of a right breast abscess by Dr. Watson. She had packing placed. She states that she was almost totally healed up. About 2 days ago, she began to notice some drainage. States this morning, there was a copious amount that seemed more like old blood with scant pus. She denies any increasing pain at the area. She denies any fevers or chills. She is not a diabetic. She has no history of immunosuppression. Prior similar symptoms: Yes Recent Illness/Hospitalization: No Past Medical History - Allergies and Home Meds Allergies/Adverse Reactions: Allergies fenofibrate Allergy (Severe, Verified 04/13/20 13:20) Hives cephalexin Allergy (Verified 04/13/20 13:20) Hives sertraline HCl [From Zoloft] Allergy (Verified 04/13/20 13:20) Hives sulfamethoxazole [From Bactrim] Allergy (Verified 04/13/20 13:20) Hives trimethoprim [From Bactrim] Allergy (Verified 04/13/20 13:20) Hives Primary Care Physician: Charlie Watson MD [Primary Care Provider] - Prior records reviewed: Yes Past Medical History: - - GERD Surgical History: noncontributory Smoking Status: Current every day smoker Review of Systems General: Denies: Chills, Fever, Sweats Eyes: Denies: Visual changes - bilaterally, Diplopia ENT: Denies: Rhinorrhea, Sore throat Cardiovascular: Denies: Chest pain, Palpitations Respiratory: Denies: Dyspnea, Cough, Dyspnea on exertion Gastrointestinal: Denies: Abdominal pain, Nausea, Vomiting, Diarrhea, Melena, Hematochezia Genitourinary: Denies: Dysuria, Hematuria, Frequency Musculoskeletal: Denies: Back pain, Extremity Pain Skin: Denies: Rash, Wounds Neurological: Denies: Headache, Weakness, Numbness Physical Exam Vital Signs/Narrative: Vital Signs Temp Pulse Resp BP Pulse Ox 04/13/20 13:17 98.2 F 101 H 18 118/78 99 Inital Vital Signs reviewed: Yes General: Well nourished, Well developed, No Acute Distress Head: Normocephalic, Atraumatic Eyes: Perrl, EOMI ENT: Moist mucous membranes, No rhinorrhea Neck: Supple, Nontender Cardiovascular: Regular rate, Regular rhythm, No murmurs Respiratory: No distress, CTA bilaterally, Chest nontender, - - There is an area of mild wound dehiscence of the prior incision and drainage. There is no purulence, palpable fluid collection, or cellulitis. Abdomen: Soft, Nontender, Nondistended, Normal bowel sounds Back: Nontender, Normal Inspection Extremities: Nontender, No edema Skin: Normal color, No rash Neurological: Alert, Oriented x3, Cranial nerves II-XII grossly intact, Normal Strength, Normal Sensation Psychological: Normal affect, Normal Mood Diagnostic/Tx/Re-eval - Medical Decision Making I did discuss the patient with Dr. Ngo, covering for Dr. Watson. She has outpatient follow-up. She will continue wet-to-dry dressings. She did have a change in the purulence, I am going to start on clindamycin at least until she can be seen in the office. She is comfortable with this plan of care will be discharged home. Impression Postoperative wound dehiscence ED Disposition - Plan for ED Patient: Instructions: ED Wound Check Post Op No Infec Prescriptions: Clindamycin [Cleocin] 300 mg PO 4X/DAY #80 cap Prescription Printed Referrals: Charlie Watson MD [Primary Care Provider] -
== END 2020-04-13 14:44 | disposition home or self-care (01) ==
LOC: ED 14:31
PROVIDERS: Emergency Provider Emergency Medicine; PCP Surgery
DX: T81.31XA Disruption of external operation (surgical) wound, not elsewhere classified, initial encounter (principal); F17.200 Nicotine dependence, unspecified, uncomplicated; K21.9 Gastro-esophageal reflux disease without esophagitis; Z88.1 Allergy status to other antibiotic agents; Z88.2 Allergy status to sulfonamides; N61.1 Abscess of the breast and nipple; Y83.8 Other surgical procedures as the cause of abnormal reaction of the patient, or of later complication, without mention of misadventure at the time of the procedure
CPT/HCPCS: 99282

== ENCOUNTER → 2020-07-08 15:15 | Outpatient (CLI) | payer MEDICAID, SELFPAY ==
[2020-07-08 12:47] VITALS: BMI 31.6
[2020-07-09 11:46] LABS: HIV - WCH Non-Reactive (Nonreactive); Hepatitis C Antibody Non-Reactive (Nonreactive)
[2020-07-15 05:36] LABS: HPV APTIMA, High Risk Negative (Negative)
[2020-07-15 05:37] LABS: HPV Reflexed? NOT INDICATED
== END ==
PROVIDERS: Visit Provider Obstetrics & Gynecology
DX: Z12.4 Encounter for screening for malignant neoplasm of cervix (principal); Z11.3 Encounter for screening for infections with a predominantly sexual mode of transmission
CPT/HCPCS: 36415; 86703; 86803; 88175; G0145

== ENCOUNTER 2020-10-29 09:56 | Emergency (ER) | payer MEDICAID, SELFPAY ==
[2020-07-08 12:47] VITALS: BMI 31.6
[2020-10-29 09:58] VITALS: BP 122/79; PULSE 102; RESP 17; TEMP 36.8; O2SAT 100; BMI 31.0
--- NOTE | 2020-10-29 10:24 | ED.VISSUMM ---
- ER Visit Summary Date of Service: 10/29/20 Chief Complaint: [Right breast abscess] History of Present Illness: The patient is a 45 F presents to the emergency department with complaint of a abscess to the right breast that opened up and started draining last evening. Patient states that she started with some swelling to the area about a week ago. Patient had problems with abscesses of the breast in the past and she is scheduled to see a breast specialist in [place] on November 12. Patient states that she called them today to get an antibiotic but she was told she needed to be evaluated before they would prescribe antibiotics. Patient denies fever or chills. She denies recent illness. Patient is a smoker. No other medical issues.] Physical Examination: [HEENT-PERRLA, EOMI. Cranial nerves II through XII grossly intact. TMs clear. Mucous membranes moist. No adenopathy. Cardiovascular-regular rate and rhythm without murmur or ectopy Lungs-clear to auscultation, chest wall stable without crepitus or subcu emphysema Breast exam-right breast-patient does have a open wound measuring approximately 6 mm in diameter that had just minimal amount of purulent drainage noted from it while trying to express drainage. No discrete abscess noted. No significant cellulitis noted. No significant induration noted. Abdomen-normoactive bowel sounds, soft, nontender, no rebound or rigidity, no peritoneal signs. Extremities-intact ?4, normal range of motion, normal pulses, atraumatic] Test Results: [Wound culture obtained and sent to lab.] Emergency Department Course and Treatment: [Patient was given 1 dose of clindamycin p.o.] Treatment Plan: [Patient advised to keep her appointment with surgeon on November 12. I will cover her with clindamycin. At this point there is no discrete abscess that needs drainage or further intervention. Patient advised to return if increasing pain, redness, swelling, or conditions worsen anyway.] Disposition: [Discharged home in stable condition] Impression: [Right breast abscess spontaneously draining] This note was generated with [employer] dictation software. It may contain incorrect words, spelling, and punctuation that were not noted in review of the chart prior to signing ED Disposition - Plan for ED Patient: Referrals: Isatu Fishman MD [Primary Care Provider] -
--- NOTE | 2020-10-29 10:29 | ED.DEP ---
ED Disposition - Plan for ED Patient: Instructions: ED Abscess Antibiotic Treatment Only Prescriptions: Clindamycin HCl [Cleocin] 300 mg PO Q6H #40 cap Prescription Printed Clindamycin HCl [Cleocin] 300 mg PO Q6H #40 cap Prescription Printed Referrals: Isatu Fishman MD [Primary Care Provider] - 3-5 Days Additional Instructions: Follow up with your surgeon
[2020-10-29] MEDS: Clindamycin HCl 150 MG Capsule 300 MG PO (10:54)
[2020-10-29 10:57] VITALS: RESP 17
== END 2020-10-29 11:00 | disposition home or self-care (01) ==
LOC: ED 10:50
PROVIDERS: Emergency Provider Emergency Medicine; PCP Internal Medicine
DX: N61.1 Abscess of the breast and nipple (principal); Z90.49 Acquired absence of other specified parts of digestive tract; Z72.0 Tobacco use; F12.90 Cannabis use, unspecified, uncomplicated
CPT/HCPCS: 87070; 87077; 87205; 99282

== ENCOUNTER 2020-12-28 13:44 | Emergency (ER) | payer MEDICAID, SELFPAY ==
[2020-12-28 13:44] VITALS: BP 141/90; PULSE 92; RESP 16; TEMP 36.2; O2SAT 97; BMI 32.1
[2020-12-28 13:47] VITALS: BP 141/90; PULSE 98; RESP 16; TEMP 36.2; O2SAT 98
--- NOTE | 2020-12-28 14:20 | ED.DCSUM_ITS ---
- ER Visit Summary Date of Service: 12/28/20 Chief Complaint: [Right side pain] History of Present Illness: The patient is a 45 F [presents to the emergency department with complaint of pain in the right side that started about 4 days ago. Patient states that the pain came on suddenly and was severe. She describes a sharp stabbing pain is worse with movement at times with breathing. Initially the pain was intermittent but now is continuous. She currently rates it a 7 or 8 out of 10. Patient is concerned about this being an issue with her liver or possibly infection. Patient states she drinks heavily. Patient denies urinary symptoms. She denies fever or cough out of the ordinary. She denies COVID-19 exposures. Patient denies any abdominal pain. She is had no vomiting or significant diarrhea. She denies any blood in her stool or black tarry stool. She denies recent travel or surgery. She denies any trauma to her chest wall. Patient has had prior cholecystectomy and history of a left breast biopsy.] Physical Examination: [HEENT-PERRLA, EOMI. Cranial nerves II through XII grossly intact. TMs clear. Mucous membranes moist. No adenopathy. Cardiovascular-regular rate and rhythm without murmur or ectopy Lungs-clear to auscultation, chest wall stable without crepitus or subcu emphysema. Patient describes the pain as the right chest wall lower aspect in the midaxillary line however I am unable to reproduce her pain with palpation. There are no rashes or shingles-like lesions noted. Abdomen-normoactive bowel sounds, soft, nontender, no rebound or rigidity, no peritoneal signs. Extremities-intact ?4, normal range of motion, normal pulses, atraumatic] Test Results: [CBC with differential obtained showing a 9.4, hemoglobin 15, hematocrit 45, platelets 278. Chemistries normal. LFTs were normal. Urinalysis was normal. D-dimer was less than 0.27. Chest x-ray 1 view obtained read by myself as no acute disease process. Radiology felt the x-ray was normal.] Emergency Department Course and Treatment: [IV line established on arrival. Patient was medicated with Toradol 15 mg IV and she did have some pain relief with that. Patient again describes that the pain came on when she was reaching for something at work therefore I suspect this is likely musculoskeletal etiology.] Treatment Plan: [Patient advised to use Tylenol for discomfort. She is to fo llow-up with her primary care physician within the next 5 to 7 days. Patient advised to return if fever, worsening pain, increasing shortness of breath, or condition should worsen anyway.] Disposition: [Discharged home in stable condition] Impression: [Chest wall pain] This note was generated with [employer] dictation software. It may contain incorrect words, spelling, and punctuation that were not noted in review of the chart prior to signing ED Disposition - Plan for ED Patient: Referrals: Isatu Fishman MD [Primary Care Provider] -
[2020-12-28] MEDS: Ketorolac 15 MG/ML Vial IV (14:25)
[2020-12-28 14:26] LABS: Absolute Lymphocyte Count 4.44 X10^3/uL (0.83-4.51); Basophil# 0.08 X10^3/uL; Basophil% 0.9 % (0-1); Eosinophil# 0.22 X10^3/uL; Eosinophils% 2.3 % (0-5); Hemoglobin 15.2 g/dL (12.0-15.0); Lymphocyte # 4.44 X10^3/ul (4.0); Lymphocyte % 47.2 % (19-41); Mean Corp Hgb Conc 33.8 g/dL (32-36); Mean Corpuscular Hgb 31.3 pg (27.0-32.0); Mean Corpuscular Volume 92.8 fL (81-99); Monocyte# 0.62 X10^3/uL; Monocyte% 6.6 % (0-10); NRBC Flagged by Analyzer 0 % (0-5); Neutrophil # 4.01 X10^3/uL (2.7-7.7); Neutrophil % 42.7 % (47-70); Platelet Count 278 K/mm3 (150-450); RBC Distribution Width CV 13.2 % (11.6-14.6); RBC Distribution Width SD 44.9 fl (35.1-43.9); Red Blood Count 4.85 M/mm3 (4.2-5.4); White Blood Count 9.4 K/mm3 (4.4-11.0)
[2020-12-28 14:39] LABS: ALB/GLOB Ratio 0.9 RATIO (0.9-2.4); AST(SGOT) 25 U/L (15-37); Alanine Aminotransfer ALT/SGPT 37 U/L (13-56); Albumin, Serum 3.4 g/dL (3.2-5.0); Alkaline Phosphatase 106 U/L (45-117); Anion Gap 4 (5-15); BUN 8 mg/dL (7-18); BUN/Creat Ratio 9.1 RATIO (10-20); Calcium,Total 8.6 mg/dL (8.5-10.1); Chloride 105 mmol/L (98-107); Creatinine, Serum 0.88 mg/dL (0.55-1.02); EST Glomerular Filtration Rate 73 mL/min (>60); Est Glom Filt Rate - Afr Amer 89 mL/min (>60); Estimated Creatinine Clearance 71.88 ml/min; Globulin 3.6 g/dL (2.2-4.2); Glucose 97 mg/dL (74-106); Potassium 3.4 mmol/L (3.5-5.1); Sodium Level 138 mmol/L (136-145)
--- NOTE | 2020-12-28 14:45 | RAD_ITS ---
STUDY: X-RAY CHEST REASON FOR EXAM: Female, 45 years old. Chest pain TECHNIQUE: Single AP portable view of the chest. COMPARISON: Comparison is made with prior study dated 07/16/2019. FINDINGS: EKG electrodes are seen. The lungs are clear and expanded. There is no demonstrated pleural abnormality. Normal size heart. Normal mediastinum and ish. Normal visualized pulmonary arteries. Normal visualized aortic arch and descending thoracic aorta. Normal visualized thoracic spine. Normal visualized ribs, clavicles, and shoulders. There is no demonstrated abnormality of the visualized soft tissue structures of the upper abdomen. RAD/Chest 1 View (Portable) IMPRESSION: Normal x-ray examination of the chest. Electronically Signed: Gus Wade MD at 15:02 EST , Service support ,
[2020-12-28 14:47] LABS: D-Dimer Quantitative (DVT/PE) <= 0.27 FEU/ug/m (0.27-0.49)
[2020-12-28 15:18] LABS: Bacteria 0 SEEN /hpf (None Seen); Mucous, Urine 0 SEEN /hpf (<or=2+); Red Blood Cells-Urine 0 SEEN /hpf (0-5); White Blood Cells 0 SEEN /hpf (0-5)
[2020-12-28 15:20] LABS: Color, Urine Yellow (Yellow); Glucose, Dipstick Normal (Normal); Ketone-Dipstick Negative (Negative); Leukocyte Esterase-Dipstick Negative /ul (Negative); Nitrite-Dipstick Negative (Negative); Occult Blood-Urine Negative /ul (Negative); Protein-Dipstick Negative (Negative); Specific Gravity, Urine 1.005 (1.002-1.030); Urine Bilirubin Dipstick Negative (Negative); Urine Clarity Clear (Clear); Urine Urobilinogen Normal (Normal)
[2020-12-28 15:36] LABS: Squamous Epithelial Cells - UA 0-5 SEEN /hpf (5-10)
--- NOTE | 2020-12-28 15:45 | ED.DEP ---
ED Disposition - Plan for ED Patient: Instructions: ED Chest Wall Pain, Costochondritis, ED Strain Chest Wall, ED Pleurisy Referrals: Isatu Fishman MD [Primary Care Provider] - 5-7 Days
[2020-12-28 15:52] VITALS: BP 138/82; PULSE 71; RESP 18; O2SAT 98
== END 2020-12-28 15:54 | disposition home or self-care (01) ==
LOC: ED 15:41
PROVIDERS: Emergency Provider Emergency Medicine; PCP Internal Medicine
DX: R07.89 Other chest pain (principal); R05 Cough; Z72.0 Tobacco use; F12.90 Cannabis use, unspecified, uncomplicated; Z90.49 Acquired absence of other specified parts of digestive tract
CPT/HCPCS: 71045; 80053; 81001; 85025; 85379; 96374; 99283; J7030; A4216

== ENCOUNTER → 2021-07-27 11:17 | Outpatient (CLI) | payer MEDICAID, SELFPAY ==
[2021-07-29 03:06] LABS: Chlamydia By Nucleic Acid AMP Negative (Negative)
[2021-07-29 08:29] LABS: Gonococcus By Nucleic Acid AMP Negative (Negative)
[2021-08-01 21:48] LABS: HPV APTIMA, High Risk Negative (Negative)
[2021-08-01 21:49] LABS: HPV Reflexed? YES, CHARGE PATIENT
== END ==
PROVIDERS: PCP Internal Medicine; Visit Provider Obstetrics & Gynecology
DX: Z12.4 Encounter for screening for malignant neoplasm of cervix (principal); Z11.3 Encounter for screening for infections with a predominantly sexual mode of transmission
CPT/HCPCS: 87491; 87591; 87624; 88175; G0145

== ENCOUNTER 2021-08-17 08:46 | Inpatient (IN) | payer MEDICAID, SELFPAY ==
[2021-08-17] VITALS (12 sets, daily range): BP systolic 110–163; BP diastolic 76–97; PULSE 88–107; RESP 14–17; TEMP 36.6–37.1; O2SAT 94–100; BMI 30.9; BMI 30.4
--- NOTE | 2021-08-17 09:05 | EKG12_ITS ---
Test Reason : OVERDOSE Blood Pressure : / mmHG Vent. Rate : 090 BPM Atrial Rate : 090 BPM P-R Int : 146 ms QRS Dur : 086 ms QT Int : 354 ms P-R-T Axes : 071 -17 051 degrees QTc Int : 433 ms Normal sinus rhythm Normal ECG Confirmed by MARK BOBBY, ROGER ([id number]), editorial intern DESTINY TEJADA ([id number]) on 08/23/2021 6:32:51 AM Referred By: JOAQUIN Confirmed By:ROGER FLORES MD
--- NOTE | 2021-08-17 09:09 | EDS_ITS ---
HPI History of Present Illness Chief Complaint: Overdose Informant: patient and EMS Narrative Narrative: Patient is a 46-year-old female with history of depression and prior suicide attempt presenting after attempted overdose/suicide attempt. Patient apparently took 2200 mg carbamazepine and used alcohol and methamphetamines last night. Is not exactly clear what time all this happens but patient states it was while it was dark. Per report, it was sometime last night. She told nursing staff that she just wants to sleep forever and wants it all to end. When asked if she wants to patient says no she just wants to sleep. Patient did have a court date today. Patient is complaining of some nausea. She denies any other complaints at this time. [facility] Medical History (Updated 08/17/21 @ 15:[address] Leola Pettit, ) Anxiety Chest pain Depression Dizziness Intermittent palpitations Lung nodule Moderate dysplasia of cervix (DARRELL II) Nicotine abuse Panic attacks Shortness of breath Home Medications omeprazole 40 mg PO DAILY 03/03/18 [History Last Taken 12/01/19] multivitamin,ky-rvpe-[id number] 1 tab PO DAILY 07/02/19 [History Last Taken Unknown] calcium carbonate 500 mg calcium (1,250 mg) tablet 500 mg PO DAILY 08/08/19 [History Last Taken Unknown] aripiprazole 20 mg PO DAILY 10/01/19 [History Last Taken 12/01/19] carbamazepine 200 mg PO DAILY 08/17/21 [History Last Taken Unknown] oxybutynin chloride 5 mg PO DAILY 08/17/21 [History Last Taken Unknown] Allergy/AdvReac Type Severity Reaction Status Date / Time fenofibrate Allergy Severe Hives Verified 08/17/21 08:48 cephalexin Allergy Hives Verified 08/17/21 08:48 sertraline HCl [From Zoloft] Allergy Hives Verified 08/17/21 08:48 Family History Father Hypertension Colon cancer Mother Lung cancer Grandmother Breast cancer Surgical History H/O LEEP History of cholecystectomy History of left breast biopsy (~08/2019) Social History Smoking Status: Heavy Smoker (>10/day) alcohol intake: current alcohol intake frequency: a few times a week substance use type: amphetamines ROS ROS ED Constitutional Constitutional ED: Denies fever(s) Cardiovascular Cardiovascular: Denies chest pain Respiratory/Chest Respiratory/Chest: Denies cough or dyspnea Gastrointestinal Gastrointestinal: Reports nausea; Denies abdominal pain or vomiting Genitourinary Genitourinary ED: Denies dysuria or urinary frequency Musculoskeletal Musculoskeletal: Denies myalgias Integumentary Denies rash Neurologic Neurologic: Denies headache(s) Psychiatric Psychiatric: Reports anxiety, depression, suicidal ideation and suicidal thoughts EXAM Physical Exam Const Vital Signs: 08/17/21 08:53 08/17/21 09:51 08/17/21 10:00 Temperature 97.8 F Temperature Source Temporal Pulse Rate 102 H 95 100 Respiratory Rate 16 14 Blood Pressure 133/97 H 129/89 H 122/89 H Blood Pressure Mean 109 102 100 Pulse Ox 98 94 Oxygen Delivery Method Room Air Room Air 08/17/21 11:00 08/17/21 12:00 08/17/21 13:00 Temperature Temperature Source Pulse Rate 101 H 102 H 107 H Respiratory Rate 17 Blood Pressure 163/90 H 144/85 H 134/96 H Blood Pressure Mean 114 104 108 Pulse Ox 98 95 Oxygen Delivery Method Room Air Room Air Positive well nourished, well developed and obese General Appearance ED: well developed Nutritional Appearance: obese HEENT Reports moist mucous membranes atraumatic Eyes PERRL and EOMs intact bilaterally Neck supple and no JVD Chest Wall inspection of chest normal Resp normal respiratory effort and clear to auscultation bilaterally Cardio regular rhythm Rate: tachycardic GI soft to palpation, non-tender, non-distended and no masses Extremity General Extremety ED: Negative for edema or tenderness General Extremity: Negative for edema Neuro oriented x3 and CN's II-XII intact bilaterally Neuro Narrative: Slightly slurred speech and somnolent, arouses easily to verbal stimuli Sensorium / Orientation: alert; Negative for confused Motor Exam: general weakness Psych Mood & Affect: depressed and tearful Skin Lesions: no lesions Rashes: no rashes MDM MDM MDM Narrative Medical decision making narrative: She is evaluated after intentional overdose of carbamazepine as well as a reportedly using methamphetamines and alcohol. She is somnolent and mildly tachycardic but otherwise has a benign physical exam. Blood work obtained which does show an elevated carbamazepine level. Discussed with poison control who states that serial level should be checked every 4-6 hours as this medication does have irregular GI absorption she needs at least 2 levels that have gone down significantly in a row for medical clearance. Side effects include [employer] depression and anticholinergic effects. Treatment is all symptomatic including benzodiazepines as needed for seizure activity, magnesium replacement for prolonged QTC and electrolyte replacement as needed. Patient is monitored in the ER does not have any depression of her respiratory status. She remains hemodynamically stable. Carbamazepine level does not significantly change goes from 23.9-23.1. Patient be admitted for further monitoring and for clearance of her carbamazepine. [place] slip is filled out by myself. Lab Data Attestation: I reviewed the patient's lab results. Labs: Laboratory Results - last 24 hr 08/17/21 08/17/21 08/17/21 08:36 08:36 09:05 WBC 12.0 H RBC 4.78 Hgb 14.9 Hct 43.3 MCV 90.6 MCH 31.2 MCHC 34.4 RDW Std Deviation 48.6 H RDW Coeff of Piero 14.7 H Plt Count 313 MPV 10.4 Immature Gran % (Auto) 0.400 Neut % (Auto) 70.9 H Lymph % (Auto) 22.3 [place] % (Auto) 5.1 Eos % (Auto) 0.7 Baso % (Auto) 0.6 Absolute Neuts (auto) 8.5 H Absolute Lymphs (auto) 2.68 Nucleated RBC % 0 Sodium 137 Potassium 3.2 L Chloride 100 Carbon Dioxide 27.0 Anion Gap 10 BUN 6 L Creatinine 0.87 Estim Creat Clear Calc 74.84 Est GFR (MDRD) Af Amer 89 Est GFR (MDRD) Non-Af 74 BUN/Creatinine Ratio 6.9 L Glucose 96 Calcium 8.5 Magnesium Total Bilirubin 0.30 AST 28 ALT 29 Alkaline Phosphatase 104 Total Protein 7.7 Albumin 3.5 Globulin 4.2 Albumin/Globulin Ratio 0.8 L Serum , Qual Salicylates 5.0 Urine Opiates Screen Urine Methadone Screen Acetaminophen < 2.0 L Ur Barbiturates Screen Carbamazepine Ur Phencyclidine Scrn Ur Amphetamines Screen U Methamphetamin-MDMA U Benzodiazepines Scrn Urine Cocaine Screen U Cannabinoids Screen Ur Drug Screen Comment Ethyl Alcohol 08/17/21 08/17/21 08/17/21 09:05 09:05 09:05 WBC RBC Hgb Hct MCV MCH MCHC RDW Std Deviation RDW Coeff of Piero Plt Count MPV Immature Gran % (Auto) Neut % (Auto) Lymph % (Auto) Churchill % (Auto) Eos % (Auto) Baso % (Auto) Absolute Neuts (auto) Absolute Lymphs (auto) Nucleated RBC % Sodium Potassium Chloride Carbon Dioxide Anion Gap BUN Creatinine Estim Creat Clear Calc Est GFR (MDRD) Af Amer Est GFR (MDRD) Non-Af BUN/Creatinine Ratio Glucose Calcium Magnesium Total Bilirubin AST ALT Alkaline Phosphatase Total Protein Albumin Globulin Albumin/Globulin Ratio Serum , Qual NEGATIVE Salicylates Urine Opiates Screen Urine Methadone Screen Acetaminophen Ur Barbiturates Screen Carbamazepine 23.9 H* Ur Phencyclidine Scrn Ur Amphetamines Screen U Methamphetamin-MDMA U Benzodiazepines Scrn Urine Cocaine Screen U Cannabinoids Screen Ur Drug Screen Comment Ethyl Alcohol 10.0 08/17/21 08/17/21 08/17/21 09:05 10:50 13:10 WBC RBC Hgb Hct MCV MCH MCHC RDW Std Deviation RDW Coeff of Piero Plt Count MPV Immature Gran % (Auto) Neut % (Auto) Lymph % (Auto) Churchill % (Auto) Eos % (Auto) Baso % (Auto) Absolute Neuts (auto) Absolute Lymphs (auto) Nucleated RBC % Sodium Potassium Chloride Carbon Dioxide Anion Gap BUN Creatinine Estim Creat Clear Calc Est GFR (MDRD) Af Amer Est GFR (MDRD) Non-Af BUN/Creatinine Ratio Glucose Calcium Magnesium 2.0 Total Bilirubin AST ALT Alkaline Phosphatase Total Protein Albumin Globulin Albumin/Globulin Ratio Serum , Qual Salicylates Urine Opiates Screen NEGATIVE Urine Methadone Screen NEGATIVE Acetaminophen Ur Barbiturates Screen NEGATIVE Carbamazepine 23.1 H* Ur Phencyclidine Scrn NEGATIVE Ur Amphetamines Screen POSITIVE H U Methamphetamin-MDMA NEGATIVE U Benzodiazepines Scrn NEGATIVE Urine Cocaine Screen NEGATIVE U Cannabinoids Screen NEGATIVE Ur Drug Screen Comment Ethyl Alcohol Rhythm Strip Rhythm Strip: Sinus Rhythm Rate: 90 Ectopy: None EKG Initial EKG: Attestation: I personally reviewed and interpreted this EKG as follows: Interpretation: Sinus Rhythm Comments: Normal sinus rhythm at a rate of 90 Normal axis Normal intervals Normal ST segments Discharge Plan Dx/Rx/DC Orders Clinical Impression: Suicide attempt, Carbamazepine overdose of undetermined intent, Toxic encephalopathy Disposition Disposition: Acute Care Hospital [facility] Discharge Date/Time: 08/17/21 14:50
[2021-08-17 09:20] LABS: Absolute Lymphocyte Count 2.68 X10^3/uL (0.83-4.51); Absolute Neutrophil Count 8.5 X10^3/uL (2.0-7.7); Basophil# 0.07 X10^3/uL; Basophil% 0.6 % (0-1); Eosinophil# 0.09 X10^3/uL; Eosinophils% 0.7 % (0-5); Hematocrit 43.3 % (37-47); Hemoglobin 14.9 g/dL (12.0-15.0); Lymphocyte # 2.68 X10^3/ul (0.83-4.51); Lymphocyte % 22.3 % (19-41); Mean Corp Hgb Conc 34.4 g/dL (32-36); Mean Corpuscular Hgb 31.2 pg (27.0-32.0); Mean Corpuscular Volume 90.6 fL (81-99); Mean Platelet Vol. 10.4 fl (6.2-12.0); Monocyte# 0.61 X10^3/uL; Monocyte% 5.1 % (0-10); NRBC Flagged by Analyzer 0 % (0-5); Neutrophil # 8.53 X10^3/uL (2.7-7.7); Neutrophil % 70.9 % (47-70); Platelet Count 313 K/mm3 (150-450); RBC Distribution Width CV 14.7 % (11.6-14.6); RBC Distribution Width SD 48.6 fl (35.1-43.9); Red Blood Count 4.78 M/mm3 (4.2-5.4)
[2021-08-17 09:30] LABS: ALB/GLOB Ratio 0.8 RATIO (0.9-2.4); AST(SGOT) 28 U/L (15-37); Alanine Aminotransfer ALT/SGPT 29 U/L (13-56); Albumin, Serum 3.5 g/dL (3.2-5.0); Alkaline Phosphatase 104 U/L (45-117); Anion Gap 10 (5-15); BUN 6 mg/dL (7-18); BUN/Creat Ratio 6.9 RATIO (10-20); Calcium,Total 8.5 mg/dL (8.5-10.1); Chloride 100 mmol/L (98-107); Creatinine, Serum 0.87 mg/dL (0.55-1.02); EST Glomerular Filtration Rate 74 mL/min (>60); Est Glom Filt Rate - Afr Amer 89 mL/min (>60); Estimated Creatinine Clearance 74.84 ml/min; Globulin 4.2 g/dL (2.2-4.2); Glucose 96 mg/dL (74-106); Potassium 3.2 mmol/L (3.5-5.1); Protein, Total 7.7 g/dL (6.4-8.2); Sodium Level 137 mmol/L (136-145)
[2021-08-17 09:48] LABS: Internal QC Validated? YES +Cl - CLEAR BKGD; Pregnancy, Serum, hCG Quali. NEGATIVE Negative
[2021-08-17] MEDS: Ondansetron 4 MG/2 ML Vial IV (09:55)
[2021-08-17 09:56] LABS: Acetaminophen (Tylenol) Level < 2.0 ug/mL (10.0-30.0)
[2021-08-17 10:31] LABS: Carbamazepine (Tegretol) 23.9 ug/mL (4.0-12.0)
[2021-08-17 11:09] LABS: Amphetamine Urine VISTA POSITIVE (<1000 ng/mL); Barbiturate Urine VISTA NEGATIVE (< 200 ng/mL); Benzodiazepine Urine VISTA NEGATIVE (< 200 ng/mL); Cocaine Urine VISTA NEGATIVE (< 300 ng/mL); Ecstacy Urine VISTA NEGATIVE (< 500 ng/mL); Methadone Urine VISTA NEGATIVE (< 300 ng/mL); PCP Urine VISTA NEGATIVE (< 25 ng/mL); THC Urine VISTA NEGATIVE (< 50 ng/mL); Vista UDS pH Range 6
--- NOTE | 2021-08-17 11:24 | ED.RN ---
recieved verbal permission from pt to talk to her sister Grace Hernández, gave pt update.
[2021-08-17 14:02] LABS: Carbamazepine (Tegretol) 23.1 ug/mL (4.0-12.0)
--- NOTE | 2021-08-17 14:06 | NURSING ---
DR MEDRANO FOR DR LOAIZA
--- NOTE | 2021-08-17 14:17 | NURSING ---
[address] CARBAZEPINE OD, ENCEPHALOPATHY
--- NOTE | 2021-08-17 14:22 | HP.PCM.HOS_ITS ---
HPI - General General Date of Admission: 08/17/21 Date of Service: 08/17/21 Chief Complaint: overdose HPI Narrative VINOD PHAN, is a 46 F who presents presents after an intentional overdose of carbamazepine. Along with that, patient drank alcohol and smoked crystal meth. Patient comes in somnolent. But groggy and slightly awake. Her carbamazepine level was in toxic range 23.9 and then rechecked at 1310 and was 23.1. Given her ongoing somnolence, carbamazepine toxicity, the hospital service was contacted for admission. Patient denied any suicide attempt but stated that she just wanted to sleep. Patient has had a history of suicide attempts before. Patient appear had a court date today for unclear reasons [facility] Medical History (Updated 08/17/21 @ 14:[address] Moi Flores DO) Anxiety Chest pain Depression Dizziness Intermittent palpitations Lung nodule Moderate dysplasia of cervix (DARRELL II) Nicotine abuse Panic attacks Shortness of breath Home Medications omeprazole 40 mg PO DAILY 03/03/18 [History Last Taken 12/01/19] multivitamin,la-cyxq-[id number] 1 tab PO DAILY 07/02/19 [History Last Taken Unknown] calcium carbonate 500 mg calcium (1,250 mg) tablet 500 mg PO DAILY 08/08/19 [History Last Taken Unknown] aripiprazole 20 mg PO DAILY 10/01/19 [History Last Taken 12/01/19] carbamazepine 200 mg PO DAILY 08/17/21 [History Last Taken Unknown] oxybutynin chloride 5 mg PO DAILY 08/17/21 [History Last Taken Unknown] Allergy/AdvReac Type Severity Reaction Status Date / Time fenofibrate Allergy Severe Hives Verified 08/17/21 08:48 cephalexin Allergy Hives Verified 08/17/21 08:48 sertraline HCl [From Zoloft] Allergy Hives Verified 08/17/21 08:48 Family History Father Hypertension Colon cancer Mother Lung cancer Grandmother Breast cancer Surgical History H/O LEEP History of cholecystectomy History of left breast biopsy (~08/2019) Social History (Updated 08/17/21 @ 14:[address] Moi Jopperi, DO) Smoking Status: Heavy Smoker (>10/day) alcohol intake: current alcohol intake frequency: a few times a week substance use type: amphetamines ROS ROS Narrative Limited given her current grogginess but all review of systems were negative except as mentioned above in the history of present illness and the other review of systems. Vital Signs Vital Signs Vital Signs: 08/17/21 08:53 08/17/21 09:51 08/17/21 10:00 Temperature 36.6 C Temperature Source Temporal Pulse Rate 102 H 95 100 Respiratory Rate 16 14 Blood Pressure 133/97 H 129/89 H 122/89 H Blood Pressure Mean 109 102 100 Pulse Ox 98 94 Oxygen Delivery Method Room Air Room Air 08/17/21 11:00 08/17/21 12:00 08/17/21 13:00 Temperature Temperature Source Pulse Rate 101 H 102 H 107 H Respiratory Rate 17 Blood Pressure 163/90 H 144/85 H 134/96 H Blood Pressure Mean 114 104 108 Pulse Ox 98 95 Oxygen Delivery Method Room Air Room Air Weight Weight: 87 kg Body Mass Index (BMI) 30.9 Physical Exam Const alert Constitutional Narrative: Groggy but follows commands and answers questions appropriately. Does seem slightly confused. HEENT normocephalic and head/scalp atraumatic Eyes EOMs intact bilaterally Eyes Narrative: No icterus Resp normal respiratory effort, no retractions, no use of accessory muscles and clear to auscultation bilaterally Cardio regular rate, regular rhythm, S1 normal heart sound and S2 normal heart sound GI normal to inspection, nondistended, normoactive bowel sounds, soft to palpation, non-tender and non-distended Extremity normal to inspection Neuro moves all extremities Neuro Narrative: No clonus. Results Lab / Micro Data Attestation: I reviewed the patient's lab results. Result Diagrams: 08/17/21 08:36 08/17/21 08:36 Labs: Laboratory Results - last 24 hr 08/17/21 08:36: WBC 12.0 H, RBC 4.78, Hgb 14.9, Hct 43.3, MCV 90.6, MCH 31.2, MCHC 34.4, RDW Std Deviation 48.6 H, RDW Coeff of Piero 14.7 H, Plt Count 313, MPV 10.4, Immature Gran % (Auto) 0.400, Neut % (Auto) 70.9 H, Lymph % (Auto) 22.3, [place] % (Auto) 5.1, Eos % (Auto) 0.7, Baso % (Auto) 0.6, Absolute Neuts (auto) 8.5 H, Absolute Lymphs (auto) 2.68, Nucleated RBC % 0 08/17/21 08:36: Sodium 137, Potassium 3.2 L, Chloride 100, Carbon Dioxide 27.0, Anion Gap 10, BUN 6 L, Creatinine 0.87, Estim Creat Clear Calc 74.84, Est GFR (MDRD) Af Amer 89, Est GFR (MDRD) Non-Af 74, BUN/Creatinine Ratio 6.9 L, Glucose 96, Calcium 8.5, Total Bilirubin 0.30, AST 28, ALT 29, Alkaline Phosphatase 104, Total Protein 7.7, Albumin 3.5, Globulin 4.2, Albumin/Globulin Ratio 0.8 L 08/17/21 09:05: Salicylates 5.0, Acetaminophen < 2.0 L 08/17/21 09:05: Ethyl Alcohol 10.0 08/17/21 09:05: Serum , Qual NEGATIVE 08/17/21 09:05: Carbamazepine 23.9 H* 08/17/21 09:05: Magnesium 2.0 08/17/21 10:50: Urine Opiates Screen NEGATIVE, Urine Methadone Screen NEGATIVE, Ur Barbiturates Screen NEGATIVE, Ur Phencyclidine Scrn NEGATIVE, Ur Amphetamines Screen POSITIVE H, U Methamphetamin-MDMA NEGATIVE, U Benzodiazepines Scrn NEGATIVE, Urine Cocaine Screen NEGATIVE, U Cannabinoids Screen NEGATIVE, Ur Drug Screen Comment 08/17/21 13:10: Carbamazepine 23.1 H* Micro: Microbiology 08/17/21 09:10 Interface Orders SARS-CoV-2 Antigen (Rapid) - Final EKG Initial EKG: Attestation: I personally reviewed and interpreted this EKG as follows: Prior EKG tracings: available for review EKG Rhythm Intrepretation: Sinus Rhythm Assessment & Plan Assessment/Plan (1) Carbamazepine overdose of undetermined intent: QUALIFIERS: Encounter type: initial encounter Qualified Code(s): T42.1X4A - Poisoning by iminostilbenes, undetermined, initial encounter (2) Suicide attempt: (3) Toxic encephalopathy: PLAN: 1. Carbamazepine overdose * This was intentional and patient took 20 tablets along with alcohol and methamphetamines. * Patient's level is still elevated at 23.1 but down from 23.9. Still in the toxic range. Toxic range goes up to 15 so the plan is to continue to monitor her carbamazepine levels every 6 hours. Once the level is less than 15 and the patient is more alert than patient should be medically stable to be evaluated by psychiatry point. * Will give the patient IV fluids 200cc/h. * Monitor on telemetry for the time being. 2. Suicide attempt * Patient has had a history of suicide attempts * As above, once patient medically stable, patient will need a crisis evaluation and likely require placement in a psychiatric facility. * Patient will require a sitter at bedside 3. Toxic encephalopathy * Secondary to the carbamazepine, methamphetamines and alcohol * Anticipate that improving with time. 4. Hypokalemia * Replace * magnesium normal 5. Depression/anxiety * carbamazepine and Abilify will be held 6. VTE prophylaxis: LMWH Charges/Coding Visit Charges Inpatient E&M: 33361 Init Hosp L3
--- NOTE | 2021-08-17 15:29 | PCS.PANDOC ---
PANDEMIC DOCUMENTATION INITIATED: Date: 06/20/2021 Time: 190
[2021-08-17] MEDS: Potassium Chloride Oral Tablet 20 MEQ 40 MEQ PO (15:43)
[2021-08-17] MEDS: 0.9% Normal Saline 1,000 ML 200 ML IV ×2 (15:43→21:22)
[2021-08-17 20:08] LABS: Carbamazepine (Tegretol) 22.2 ug/mL (4.0-12.0)
--- NOTE | 2021-08-17 22:22 | ED.RN ---
poison control called for patient check up patient was been admitted transfered phone call to [facility]
--- NOTE | 2021-08-17 22:24 | NURSING ---
Poison control called to get an update on pt status.
[2021-08-18] VITALS (8 sets, daily range): BP systolic 116–151; BP diastolic 77–96; PULSE 77–101; RESP 16; TEMP 36.5–37; O2SAT 97–100
[2021-08-18 01:45] LABS: Carbamazepine (Tegretol) 19.2 ug/mL (4.0-12.0)
[2021-08-18 07:16] LABS: Absolute Lymphocyte Count 2.88 X10^3/uL (0.83-4.51); Basophil# 0.05 X10^3/uL; Basophil% 0.7 % (0-1); Eosinophil# 0.21 X10^3/uL; Eosinophils% 2.7 % (0-5); Hematocrit 39.1 % (37-47); Hemoglobin 12.8 g/dL (12.0-15.0); Lymphocyte # 2.88 X10^3/ul (0.83-4.51); Lymphocyte % 37.6 % (19-41); Mean Corp Hgb Conc 32.7 g/dL (32-36); Mean Corpuscular Hgb 30.5 pg (27.0-32.0); Mean Corpuscular Volume 93.1 fL (81-99); Mean Platelet Vol. 10.1 fl (6.2-12.0); Monocyte# 0.49 X10^3/uL; Monocyte% 6.4 % (0-10); NRBC Flagged by Analyzer 0 % (0-5); Neutrophil % 52.2 % (47-70); Platelet Count 268 K/mm3 (150-450); RBC Distribution Width CV 15.3 % (11.6-14.6); RBC Distribution Width SD 52.3 fl (35.1-43.9); White Blood Count 7.7 K/mm3 (4.4-11.0)
[2021-08-18 07:56] LABS: ALB/GLOB Ratio 0.7 RATIO (0.9-2.4); AST(SGOT) 12 U/L (15-37); Alanine Aminotransfer ALT/SGPT 21 U/L (13-56); Albumin, Serum 2.6 g/dL (3.2-5.0); Alkaline Phosphatase 90 U/L (45-117); Anion Gap 6 (5-15); BUN 11 mg/dL (7-18); BUN/Creat Ratio 13.4 RATIO (10-20); Chloride 105 mmol/L (98-107); Creatinine, Serum 0.82 mg/dL (0.55-1.02); EST Glomerular Filtration Rate 79 mL/min (>60); Est Glom Filt Rate - Afr Amer 96 mL/min (>60); Globulin 3.6 g/dL (2.2-4.2); Glucose 86 mg/dL (74-106); Potassium 3.8 mmol/L (3.5-5.1); Protein, Total 6.2 g/dL (6.4-8.2); Sodium Level 138 mmol/L (136-145)
[2021-08-18 08:00] LABS: Carbamazepine (Tegretol) 19.5 ug/mL (4.0-12.0)
[2021-08-18] MEDS: Multivitamins,Ther W-Minerals Tablet 1 TABLET PO (09:26)
[2021-08-18] MEDS: Tolterodine Tartrate 2 MG CAP.SA PO (09:26)
[2021-08-18] MEDS: Pantoprazole Sodium 40 MG Tablet PO (09:26)
[2021-08-18] MEDS: Calcium (Elemental) 500 MG Tablet PO (09:26)
[2021-08-18] MEDS: Enoxaparin 40 MG/0.4 ML Syringe SC (09:26)
--- NOTE | 2021-08-18 10:45 | PN.HOSP_ITS ---
Subjective Subjective Patient seen and examined at bedside. She reports mild dizziness. She is alert and oriented x3. Patient denies desires for self-harm. Patient is unsure why she took estimated 20 tablets of home medication of carbamazepine. She does report remote history of prior suicidal attempt. She denies headache. No griffith ucinations. She has been getting up and using the bathroom without issues ambulating. ROS is otherwise negative. Objective Data Objective Data Vital Signs: Vital Signs Temp Pulse Resp BP Pulse Ox 97.9 F 95 16 140/87 H 99 08/18/21 09:22 08/18/21 09:22 08/18/21 09:22 08/18/21 09:22 08/18/21 09:22 Oxygen Delivery Method Room Air Weight: 85.4 kg Body Mass Index (BMI) 30.4 Intake & Output: Intake and Output for Last 24 Hours 08/16/21 08/17/21 08/18/21 23:59 23:59 23:59 Intake Total 1360 / 1660 1600 / 1600 Balance 1360 / 1660 1600 / 1600 Lab / Micro Data Result Diagrams: 08/18/21 06:46 08/18/21 06:46 Labs: Laboratory Results - last 24 hr 08/17/21 10:50: Urine Opiates Screen NEGATIVE, Urine Methadone Screen NEGATIVE, Ur Barbiturates Screen NEGATIVE, Ur Phencyclidine Scrn NEGATIVE, Ur Amphetamines Screen POSITIVE H, U Methamphetamin-MDMA NEGATIVE, U Benzodiazepines Scrn N EGATIVE, Urine Cocaine Screen NEGATIVE, U Cannabinoids Screen NEGATIVE, Ur Drug Screen Comment 08/17/21 13:10: Carbamazepine 23.1 H* 08/17/21 19:11: Carbamazepine 22.2 H* 08/18/21 01:05: Carbamazepine 19.2 H* 08/18/21 06:46: WBC 7.7, RBC 4.20, Hgb 12.8, Hct 39.1, MCV 93.1, MCH 30.5, MCHC 32.7, RDW Std Deviation 52.3 H, RDW Coeff of Piero 15.3 H, Plt Count 268, MPV 10.1, Immature Gran % (Auto) 0.400, Neut % (Auto) 52.2, Lymph % (Auto) 37.6, Gordon % (Auto) 6.4, Eos % (Auto) 2.7, Baso % (Auto) 0.7, Absolute Neuts (auto) 4.0, Absolute Lymphs (auto) 2.88, Nucleated RBC % 0 08/18/21 06:46: Sodium 138, Potassium 3.8, Chloride 105, Carbon Dioxide 27.0, Anion Gap 6, BUN 11, Creatinine 0.82, Estim Creat Clear Calc 79.40, Est GFR (MDRD) Af Amer 96, Est GFR (MDRD) Non-Af 79, BUN/Creatinine Ratio 13.4, Glucose 86, Calcium 8.0 L, Total Bilirubin 0.30, AST 12 L, ALT 21, Alkaline Phosphatase 90, Total Protein 6.2 L, Albumin 2.6 L, Globulin 3.6, Albumin/Globulin Ratio 0.7 L 08/18/21 06:46: Carbamazepine 19.5 H* Micro: Microbiology 08/17/21 09:10 Interface Orders SARS-CoV-2 Antigen (Rapid) - Final Rhythm Strip Rhythm Strip: Sinus Rhythm Rate: 90 Ectopy: None Physical Exam Const alert Constitutional Narrative: And alert and oriented x3 HEENT normocephalic and head/scalp atraumatic Eyes EOMs intact bilaterally Eyes Narrative: No icterus Resp normal respiratory effort, no retractions, no use of accessory muscles and clear to auscultation bilaterally Cardio regular rate, regular rhythm, S1 normal heart sound and S2 normal heart sound GI normal to inspection, nondistended, normoactive bowel sounds, soft to palpation, non-tender and non-distended Extremity normal to inspection Neuro moves all extremities Neuro Narrative: No clonus. No focal deficits. cranial nerves II through XII grossly intact Assessment & Plan Assessment/Plan (1) Carbamazepine overdose of undetermined intent: QUALIFIERS: Encounter type: initial encounter Qualified Code(s): T42.1X4A - Poisoning by iminostilbenes, undetermined, initial encounter (2) Suicide attempt: (3) Toxic encephalopathy: PLAN: 08/18/2021: Carbamazepine level still elevated at 19, half-life 35 hours. Continue to trend carbamazepine levels every 6 hours. IVF. Supportive care as below. 1. Carbamazepine overdose * This was intentional and patient took 20 tablets along with alcohol and methamphetamines. * Patient's level is still elevated at 23.1 but down from 23.9. Still in the toxic range. Toxic range goes up to 15 so the plan is to continue to monitor her carbamazepine levels every 6 hours. Once the level is less than 15 and the patient is more alert than patient should be medically stable to be evaluated by psychiatry point. * Will give the patient IV fluids 200cc/h. * Monitor on telemetry for the time being. 2. Suicide attempt * Patient has had a history of suicide attempts * As above, once patient medically stable, patient will need a crisis evaluation and likely require placement in a psychiatric facility. * Patient will require a sitter at bedside 3. Toxic encephalopathy?resolution * Secondary to the carbamazepine, methamphetamines and alcohol * Resolution 4. Hypokalemia * Replace * magnesium normal 5. Depression/anxiety * carbamazepine and Abilify will be held 6. VTE prophylaxis: LMWH Charges/Coding Visit Charges Inpatient E&M: 56976 Subs Hosp L2
[2021-08-18 14:28] LABS: Carbamazepine (Tegretol) 16.5 ug/mL (4.0-12.0)
[2021-08-18 20:01] LABS: Carbamazepine (Tegretol) 15.3 ug/mL (4.0-12.0)
--- NOTE | 2021-08-18 21:51 | PCM.PN.BLA ---
Progress Note Nurse complain the patient is itching and has raised rashes. Loratadine ordered. As needed Benadryl ordered.
[2021-08-18] MEDS: 0.9% Saline Lock 10 ML Syringe IV (22:05)
[2021-08-18] MEDS: Loratadine 10 MG Tablet PO (22:05)
[2021-08-18] MEDS: DiphenhydrAMINE 50 MG/ML Syringe 25 MG IV (22:05)
[2021-08-19 02:57] VITALS: PULSE 85
[2021-08-19 04:04] VITALS: BP 146/89; PULSE 81; RESP 14; TEMP 36.4; O2SAT 98
[2021-08-19 07:04] VITALS: PULSE 77
[2021-08-19 07:25] LABS: Absolute Lymphocyte Count 2.56 X10^3/uL (0.83-4.51); Absolute Neutrophil Count 3.2 X10^3/uL (2.0-7.7); Basophil# 0.05 X10^3/uL; Basophil% 0.8 % (0-1); Eosinophil# 0.31 X10^3/uL; Eosinophils% 4.7 % (0-5); Hematocrit 42.3 % (37-47); Hemoglobin 14.1 g/dL (12.0-15.0); Lymphocyte # 2.56 X10^3/ul (0.83-4.51); Mean Corp Hgb Conc 33.3 g/dL (32-36); Mean Corpuscular Hgb 31.3 pg (27.0-32.0); Mean Corpuscular Volume 93.8 fL (81-99); Mean Platelet Vol. 10.4 fl (6.2-12.0); Monocyte# 0.48 X10^3/uL; Monocyte% 7.3 % (0-10); NRBC Flagged by Analyzer 0 % (0-5); Neutrophil # 3.15 X10^3/uL (2.7-7.7); Neutrophil % 47.9 % (47-70); Platelet Count 259 K/mm3 (150-450); RBC Distribution Width CV 14.9 % (11.6-14.6); RBC Distribution Width SD 51.5 fl (35.1-43.9); Red Blood Count 4.51 M/mm3 (4.2-5.4); White Blood Count 6.6 K/mm3 (4.4-11.0)
[2021-08-19 07:44] LABS: Carbamazepine (Tegretol) 11.9 ug/mL (4.0-12.0)
[2021-08-19 07:49] LABS: ALB/GLOB Ratio 0.9 RATIO (0.9-2.4); AST(SGOT) 18 U/L (15-37); Alanine Aminotransfer ALT/SGPT 23 U/L (13-56); Alkaline Phosphatase 101 U/L (45-117); Anion Gap 8 (5-15); BUN 12 mg/dL (7-18); BUN/Creat Ratio 15.2 RATIO (10-20); Calcium,Total 8.4 mg/dL (8.5-10.1); Chloride 102 mmol/L (98-107); Creatinine, Serum 0.79 mg/dL (0.55-1.02); EST Glomerular Filtration Rate 83 mL/min (>60); Est Glom Filt Rate - Afr Amer 100 mL/min (>60); Estimated Creatinine Clearance 82.41 ml/min; Globulin 3.4 g/dL (2.2-4.2); Glucose 108 mg/dL (74-106); Potassium 3.7 mmol/L (3.5-5.1); Protein, Total 6.4 g/dL (6.4-8.2); Sodium Level 138 mmol/L (136-145)
[2021-08-19] MEDS: Loratadine 10 MG Tablet PO (09:29)
[2021-08-19] MEDS: Pantoprazole Sodium 40 MG Tablet PO (09:30)
[2021-08-19] MEDS: Multivitamins,Ther W-Minerals Tablet 1 TABLET PO (09:30)
[2021-08-19] MEDS: Tolterodine Tartrate 2 MG CAP.SA PO (09:30)
[2021-08-19] MEDS: Calcium (Elemental) 500 MG Tablet PO (09:30)
[2021-08-19] MEDS: DiphenhydrAMINE 50 MG/ML Syringe 25 MG IV (09:55)
[2021-08-19 10:30] VITALS: BP 155/96; PULSE 92; RESP 16; TEMP 36.8; O2SAT 99
--- NOTE | 2021-08-19 12:58 | NURSING ---
Bed obtained at [facility]
--- NOTE | 2021-08-19 13:05 | PCM.DC ---
Discharge Instructions Diet Discharge Diet: No restrictions Activity Discharge Activity: Return to Normal Activity Dressing / Incision Call your doctor if you observe: Fever of 101 or Higher Follow Up Care Please Follow Up With: Isatu Fishman MD When: 1-2 weeks Test Results: Test results from this visit will be discussed in further detail at your follow-up appointment, if applicable. Discharge Plan Admission Admit Date/Time: 08/17/21 14:16 Primary Reason for Your Visit: Carbamezapine overdose, intential overdose Attending Provider: Jonathan Nance Primary Care Provider: Isatu Fishman Discharge Orders/Prescriptions Prescriptions: Continued Complete Multivitamin Tablet 1 tab PO DAILY RF: 0 calcium carbonate [Calcium 500] 500 mg calcium (1,250 mg) tablet 500 mg PO DAILY RF: 0 omeprazole 40 capsule,delayed release(DR/EC) 40 mg PO DAILY RF: 0 aripiprazole 20 MG tablet 20 mg PO DAILY RF: 0 carbamazepine 200 mg tablet 200 mg PO DAILY RF: 0 oxybutynin chloride 5 mg tablet extended release 24hr 5 mg PO DAILY RF: 0 Referrals / Follow Up: Isatu Fishman MD [Primary Care Provider] - Disposition Disposition (needs filled in before D/C Order can be placed): Acute Care Hospital
--- NOTE | 2021-08-19 13:10 | PCM.DC.SUM ---
Providers Date of Admission: 08/17/21 Primary Care Physician: Dr. Isatu Fishman MD Reason For Visit: CARBAMAZEPINE OVERDOSE, ENCEPHALOPATHY Diagnosis Discharge Diagnosis (1) Carbamazepine overdose of undetermined intent: Status: Acute Code(s): T42.1X4A - Poisoning by iminostilbenes, undetermined, initial encounter Qualifiers: Encounter type: initial encounter Qualified Code(s): T42.1X4A - Poisoning by iminostilbenes, undetermined, initial encounter (2) Suicide attempt: Status: Acute Code(s): T14.91XA - Suicide attempt, initial encounter (3) Toxic encephalopathy: Status: Acute Code(s): G92.9 - Unspecified toxic encephalopathy Medications at Discharge Home Medications omeprazole 40 mg PO DAILY 03/03/18 multivitamin,jl-xunj-[id number] 1 tab PO DAILY 07/02/19 calcium carbonate 500 mg calcium (1,250 mg) tablet 500 mg PO DAILY 08/08/19 aripiprazole 20 mg PO DAILY 10/01/19 carbamazepine 200 mg PO DAILY 08/17/21 oxybutynin chloride 5 mg PO DAILY 08/17/21 Hospital Course Operations None Procedures None Summary of Care Provided Minutes Spent on Discharge: 36 Hospital Course: Patient is a 46-year-old female who presented to the ED after intentionally ingesting 20 tablets of carbamazepine. Patient was pink slipped and put on psychiatric hold while in the ED. Patiently initially admitted that she just went to sleep. Carbamazepine levels were found to be 23.9 within toxic range. Patient admitted to the telemetry started on IV fluids. She had sitter 24 hours/day. Carbamazepine levels were trended every 6 hours. Carbamazepine levels were slow to decrease. Once carbamazepine levels were within normal limits crisis psychiatric evaluation took place, patient was deemed appropriate for inpatient psych evaluation and treatment. Patient discharged to psych facility on 08/19/2021 in stable condition. Patient resumed on all home medications. Patient instructed to follow-up with PCP within 2 to 3 weeks or when able., Patient agreeable to discharge and follow-up care plan. Questions and concerns were addressed at bedside with patient. Physical Exam Const oriented x3 and no apparent distress General Appearance: cooperative, comfortable, well kempt and well developed Orientation / Consciousness: awake, oriented to person, oriented to place and oriented to time Exam Limitations: no limitations Nutritional Appearance: obese HEENT normocephalic, head/scalp atraumatic, hearing grossly normal bilaterally and oropharynx normal Eyes PERRL and EOMs intact bilaterally Neck General: normal visual inspection and trachea midline Lymph Lymphatic: no lymphadenopathy noted Chest inspection of chest normal and palpation of chest normal Resp normal respiratory effort and normal air movement Auscultation: clear to auscultation bilaterally Cardio regular rate, regular rhythm, S1 normal heart sound, S2 normal heart sound, no murmurs, no rub and no gallops GI normal to inspection, nondistended, normoactive bowel sounds Extremity normal to inspection, normal capillary refill and no pedal edema Peripheral Pulses: Yes pulses 2+ throughout Skin no rashes or lesions noted General Skin Exam: no breakdown Neuro oriented x3, CN's II-XII intact bilaterally and moves all extremities Psych mental status grossly normal and affect normal Mood & Affect: Negative for depressed or anxious Weight / BMI Weight Weight: 85.4 kg Body Mass Index (BMI) 30.4 ABG / Lab / Microbiology Data Result Diagrams: 08/19/21 05:55 08/19/21 05:55 Laboratory: Laboratory Results - last 24 hr 08/18/21 13:38: Carbamazepine 16.5 H* 08/18/21 19:08: Carbamazepine 15.3 H* 08/19/21 05:55: WBC 6.6, RBC 4.51, Hgb 14.1, Hct 42.3, MCV 93.8, MCH 31.3, MCHC 33.3, RDW Std Deviation 51.5 H, RDW Coeff of Piero 14.9 H, Plt Count 259, MPV 10.4, Immature Gran % (Auto) 0.300, Neut % (Auto) 47.9, Lymph % (Auto) 39.0, [place] % (Auto) 7.3, Eos % (Auto) 4.7, Baso % (Auto) 0.8, Absolute Neuts (auto) 3.2, Absolute Lymphs (auto) 2.56, Nucleated RBC % 0 08/19/21 05:55: Sodium 138, Potassium 3.7, Chloride 102, Carbon Dioxide 28.0, Anion Gap 8, BUN 12, Creatinine 0.79, Estim Creat Clear Calc 82.41, Est GFR (MDRD) Af Amer 100, Est GFR (MDRD) Non-Af 83, BUN/Creatinine Ratio 15.2, Glucose 108 H, Calcium 8.4 L, Total Bilirubin 0.20, AST 18, ALT 23, Alkaline Phosphatase 101, Total Protein 6.4, Albumin 3.0 L, Globulin 3.4, Albumin/Globulin Ratio 0.9 08/19/21 05:56: Carbamazepine 11.9 Microbiology: Microbiology 08/17/21 09:10 Interface Orders SARS-CoV-2 Antigen (Rapid) - Final D/C Instructions Discharge Diet: No restrictions Call your doctor if you observe: Fever of 101 or Higher Please Follow Up With: Isatu Fishman MD When: 1-2 weeks Meaningful Use Info Meaningful Use Diagnoses (Choose all that apply): None applicable Discharge Plan Admission Admit Date/Time: 08/17/21 14:16 Primary Reason for Your Visit: Carbamezapine overdose, intential overdose Attending Provider: Jonathan Nance Primary Care Provider: Isatu Fishman Discharge Orders/Prescriptions Prescriptions: Continued Complete Multivitamin Tablet 1 tab PO DAILY RF: 0 calcium carbonate [Calcium 500] 500 mg calcium (1,250 mg) tablet 500 mg PO DAILY RF: 0 omeprazole 40 capsule,delayed release(DR/EC) 40 mg PO DAILY RF: 0 aripiprazole 20 MG tablet 20 mg PO DAILY RF: 0 carbamazepine 200 mg tablet 200 mg PO DAILY RF: 0 oxybutynin chloride 5 mg tablet extended release 24hr 5 mg PO DAILY RF: 0 Referrals / Follow Up: Isatu Fishman MD [Primary Care Provider] - Disposition Disposition (needs filled in before D/C Order can be placed): Acute Care Hospital Charges/Coding Visit Charges Inpatient E&M: 91977 Disch Hosp
--- NOTE | 2021-08-19 14:02 | NURSING ---
Called report to [facility], report given to Maria Ines. Transport her to get patient at this time
== END 2021-08-19 14:10 | disposition short-term general hospital (02) | DRG 812 ==
LOC: ED 14:18 → PCU 08-18 02:03
PROVIDERS: Emergency Provider Emergency Medicine; PCP Internal Medicine; Visit Provider Internal Medicine
DX: T50.904A Poisoning by unspecified drugs, medicaments and biological substances, undetermined, initial encounter (principal); T42.1X5A Adverse effect of iminostilbenes, initial encounter; T14.91XA Suicide attempt, initial encounter; T42.1X2A Poisoning by iminostilbenes, intentional self-harm, initial encounter; R21 Rash and other nonspecific skin eruption; G92.9 Unspecified toxic encephalopathy; E87.6 Hypokalemia; F32.9 Major depressive disorder, single episode, unspecified; F41.9 Anxiety disorder, unspecified; F17.210 Nicotine dependence, cigarettes, uncomplicated; E66.9 Obesity, unspecified; Z91.51 Personal history of suicidal behavior; Z68.30 Body mass index [BMI] 30.0-30.9, adult; Z80.1 Family history of malignant neoplasm of trachea, bronchus and lung; Z80.3 Family history of malignant neoplasm of breast; Z82.49 Family history of ischemic heart disease and other diseases of the circulatory system; Z85.038 Personal history of other malignant neoplasm of large intestine; Z88.1 Allergy status to other antibiotic agents; Z90.49 Acquired absence of other specified parts of digestive tract
CPT/HCPCS: 36415; 80053; 80156; 80307; 80329; 82077; 83735; 84703; 85025; 87426; 93005; 97802; 99285; 99406; J7030; A4216; G0480; J2405

== ENCOUNTER 2021-09-04 20:57 | Emergency (ER) | payer MEDICAID, SELFPAY ==
[2021-09-04 20:58] VITALS: BP 139/102; PULSE 92; RESP 16; TEMP 36; O2SAT 97; BMI 29.9
--- NOTE | 2021-09-04 21:27 | EDS_ITS ---
HPI History of Present Illness Chief Complaint: Head Injury Narrative Narrative: 46-year-old female presenting with a head injury from 3 weeks ago. She states that she was initially seen and evaluated at [place] [facility] and transferred to psychiatric facility. She states that she overdosed on Tegretol but this was apparently a suicide attempt. Since she has been released she has developed dizziness which she describes as vertiginous in nature. It is worse when she moves. It is worse when she turns her head. She has not had any new head injury. She denies any change in medication. She denies SI or HI. Patient does not have a headache. [facility] Medical History Anxiety Carbamazepine overdose of undetermined intent Chest pain Depression Dizziness Intermittent palpitations Lung nodule Moderate dysplasia of cervix (DARRELL II) Nicotine abuse Panic attacks Shortness of breath Suicide attempt Home Medications omeprazole 40 mg PO DAILY 03/03/18 [History Last Taken 12/01/19] multivitamin,us-ytkw-[id number] 1 tab PO DAILY 07/02/19 [History Last Taken Unknown] calcium carbonate 500 mg calcium (1,250 mg) tablet 500 mg PO DAILY 08/08/19 [History Last Taken Unknown] aripiprazole 20 mg PO DAILY 10/01/19 [History Last Taken 12/01/19] carbamazepine 200 mg PO DAILY 08/17/21 [History Last Taken Unknown] oxybutynin chloride 5 mg PO DAILY 08/17/21 [History Last Taken Unknown] meclizine 25 mg PO 4X/DAY PRN PRN #20 tab 09/04/21 [Rx Last Taken Unknown] promethazine 25 mg PO TID PRN #30 tab 09/04/21 [Rx Last Taken Unknown] Allergy/AdvReac Type Severity Reaction Status Date / Time fenofibrate Allergy Severe Hives Verified 09/04/21 21:00 cephalexin Allergy Hives Verified 09/04/21 21:00 sertraline HCl [From Zoloft] Allergy Hives Verified 09/04/21 21:00 Family History Father Hypertension Colon cancer Mother Lung cancer Grandmother Breast cancer Surgical History H/O LEEP History of cholecystectomy History of left breast biopsy (~08/2019) Social History Smoking Status: Heavy Smoker (>10/day) alcohol intake: current alcohol intake frequency: a few times a week substance use type: amphetamines ROS ROS ED Constitutional Constitutional ED: Denies chills, fever(s) or sweats Eyes Eyes: Denies blurry vision or change in vision ENT ENT ED: Denies ear pain or sore throat Cardiovascular Cardiovascular: Denies chest pain, palpitations or racing heartbeat Respiratory/Chest Respiratory/Chest: Denies cough, dyspnea or sputum Gastrointestinal Gastrointestinal: Denies abdominal pain, constipation, diarrhea, nausea or vomiting Genitourinary Genitourinary ED: Denies dysuria, hematuria or urinary frequency Musculoskeletal Musculoskeletal: Denies arthralgias, myalgias or neck pain Integumentary Denies abscess, Abrasions or rash Neurologic Neurologic: Reports other Details: Vertiginous dizziness ; Denies headache(s), paresthesias or weakness Psychiatric Psychiatric: Denies anxiety, depression, suicidal ideation or suicidal thoughts Endocrine Endocrinology: Denies polydipsia or polyuria EXAM Physical Exam Const Vital Signs: 09/04/21 20:58 Temperature 96.8 F L Temperature Source Temporal Pulse Rate 92 Respiratory Rate 16 Blood Pressure 139/102 H Blood Pressure Mean 114 Pulse Ox 97 Oxygen Delivery Method Room Air Positive well nourished General Appearance ED: NAD; Negative for pallor HEENT Reports normocephalic, TM's clear and moist mucous membranes HEENT Narrative: Reproducible vertiginous dizziness and nystagmus with modified [place]. atraumatic Tympanic Membrane ED: Yes TM's clear Resp normal respiratory effort and clear to auscultation bilaterally Cardio regular rate and regular rhythm Neuro oriented x3, CN's II-XII intact bilaterally and no sensory deficits noted Sensorium / Orientation: awake and alert Motor Exam: strength 5/5 throughout Psych mental status grossly normal Skin General Skin Exam: Negative for jaundice or pallor Nails: normal MDM MDM MDM Narrative Medical decision making narrative: Patient presenting with symptoms consistent with vertigo. She has not had this in the past. She is given meclizine and promethazine. She states that she has not had any issues with walking other than intermittent vertiginous dizziness. She was able to walk into the emergency room tonight. I will provide her with a prescription for medication to help with her dizziness and have her follow-up with ENT to ensure resolution. Impression: 1. BPPV Discharge Plan Triage Chief Complaint: Head Injury ED Provider: Sterling Sargent Dx/Rx/DC Orders Instructions: ED BPV Vertigo Prescriptions: New promethazine 25 mg tablet 25 mg PO TID PRN (Reason: nausea and vomiting) Qty: 30 RF: 0 meclizine 25 mg tablet 25 mg PO 4X/DAY PRN PRN (Reason: Dizziness) Qty: 20 RF: 0 No Action Complete Multivitamin Tablet 1 tab PO DAILY RF: 0 calcium carbonate [Calcium 500] 500 mg calcium (1,250 mg) tablet 500 mg PO DAILY RF: 0 omeprazole 40 capsule,delayed release(DR/EC) 40 mg PO DAILY RF: 0 aripiprazole 20 MG tablet 20 mg PO DAILY RF: 0 carbamazepine 200 mg tablet 200 mg PO DAILY RF: 0 oxybutynin chloride 5 mg tablet extended release 24hr 5 mg PO DAILY RF: 0 Primary Care Provider: Isatu Fishman Referrals: Isatu Fishman MD [Primary Care Provider] - Disposition Disposition: Home, Self Care
[2021-09-04] MEDS: proMETHazine 25 MG Tablet PO (21:42)
[2021-09-04] MEDS: Meclizine HCl 25 MG Tablet PO (21:42)
[2021-09-04 21:45] VITALS: PULSE 85; RESP 16
== END 2021-09-04 21:47 | disposition home or self-care (01) ==
PROVIDERS: Emergency Provider Student in an Organized Health Care Education/Training Program; PCP Internal Medicine
DX: H81.10 Benign paroxysmal vertigo, unspecified ear (principal); F17.210 Nicotine dependence, cigarettes, uncomplicated; F41.9 Anxiety disorder, unspecified; F32.9 Major depressive disorder, single episode, unspecified; Z79.899 Other long term (current) drug therapy
CPT/HCPCS: 99282

== ENCOUNTER → 2021-09-06 14:08 | Outpatient (CLI) | payer MEDICAID, SELFPAY ==
--- NOTE | 2021-09-06 14:12 | US_ITS ---
STUDY: ULTRASOUND BREAST - RIGHT REASON FOR EXAM: Female, 46 years old. Palpable lump in the right breast. TECHNIQUE: Axial and longitudinal images of the RIGHT breast were performed with a high resolution ultrasound transducer. # OF IMAGES: 31 COMPARISON: Comparison is made with prior mammogram done earlier today. FINDINGS: RIGHT Breast: The periareolar region was examined by ultrasound. No sonographic abnormality is seen. IMPRESSION: No sonographic abnormality is seen. ASSESSMENT CATEGORY: BIRADS Category 1: Negative. A letter regarding these results will be sent to the patient by the facility within 30 days. Electronically Signed: Gus Wade MD at 15:52 EDT , Service support , STUDY: ULTRASOUND BREAST - LEFT REASON FOR EXAM: Female, 46 years old. Nipple discharge in the left breast. TECHNIQUE: Axial and longitudinal images of the LEFT breast were performed with a high resolution ultrasound transducer. # OF IMAGES: 31 COMPARISON: Comparison is made with prior mammogram done earlier today. FINDINGS: LEFT Breast: There is a 1 cm x 1.6 cm x 0.8 cm slightly lobulated hypoechoic nodule in the retroareolar region of the left breast. Biopsy recommended. US/Breast Limited Unilateral IMPRESSION: There is a 1 cm x 1.6 cm x 0.8, slightly lobulated hypoechoic nodule in the retroareolar region of the left breast. Biopsy is recommended. ASSESSMENT CATEGORY: BIRADS Category 4: Suspicious - Biopsy Should Be Considered. A letter regarding these results will be sent to the patient by the facility within 30 days. Electronically Signed: Gus Wade MD at 15:53 EDT , Service support ,
--- NOTE | 2021-09-06 14:12 | BI_ITS ---
MAMMOGRAPHY - BILATERAL DIAGNOSTIC REASON FOR EXAM: Female, 46 years old. One-month history of right breast lump and discharge. Prior left ultrasound-guided breast biopsy. PERTINENT HISTORY: Grandmother with breast cancer. TECHNIQUE: Digital bilateral breast yuniel (3D mammographic acquisition) in the CC and MLO projections. 2-D mediolateral oblique (MLO) and craniocaudad (CC) views of both breasts were obtained. CAD: Full Field Digital Mammography with Computer Added Detection was performed. COMPARISON: Comparison is made with prior study dated 01/19/2020 and 08/06/2019. FINDINGS: Breast Composition: There are scattered areas of fibroglandular density. There are no dominant masses or suspicious calcifications. The previously seen right periareolar nodule is not seen at this time and represents residual portion of the cyst. A tissue clip marker is seen in the retroareolar region of the left breast. No other significant abnormalities are identified. BI/DIAG MAMM W/CAD, BILAT IMPRESSION: Status post drainage of a cyst in the periarticular region of the right breast. With the patient''s history of a palpable lump in the right periareolar region, correlation with ultrasound is recommended. ASSESSMENT CATEGORY: BIRADS Category 0: Incomplete. Need additional imaging evaluation. A letter regarding these results will be sent to the patient by the facility within 30 days. Approximately 10% of breast cancers are not detected by mammography. A normal mammogram should not delay biopsy of a clinically suspicious abnormality. Electronically Signed: Gus Wade MD at 15:22 EDT , Service support ,
== END ==
PROVIDERS: PCP Internal Medicine; Referring Provider Obstetrics & Gynecology; Visit Provider Obstetrics & Gynecology
DX: N63.20 Unspecified lump in the left breast, unspecified quadrant (principal)
CPT/HCPCS: 76642; 77062; 77066; G0279

== ENCOUNTER 2021-10-30 18:46 | Emergency (ER) | payer MEDICAID, SELFPAY ==
[2021-10-30 18:47] VITALS: BP 162/96; PULSE 101; RESP 16; TEMP 36.7; O2SAT 100; BMI 30.7
--- NOTE | 2021-10-30 19:33 | EDS_ITS ---
HPI History of Present Illness Chief Complaint: General Illness Narrative Narrative: Patient presents for COVID-19 testing. She states that she is staying at the [facility] and has been for the last month. She left yesterday to celebrate [place]. She states she needs a negative test to return. She states that she has had a cough with shortness of breath but no fever. This started yesterday. Additionally, she mentioned that she has been having problems with discharge from her left breast for over 2 years. She was referred by Dr. Watson to a physician in [place], but was unable to make that because she did not have a ride. She presents mainly for the Covid testing. [facility] Medical History Anxiety Carbamazepine overdose of undetermined intent Chest pain Depression Dizziness Intermittent palpitations Lung nodule Moderate dysplasia of cervix (DARRELL II) Nicotine abuse Panic attacks Shortness of breath Suicide attempt Home Medications omeprazole 40 mg PO DAILY 03/03/18 [History Last Taken 12/01/19] multivitamin,pm-vpfl-[id number] 1 tab PO DAILY 07/02/19 [History Last Taken Unknown] calcium carbonate 500 mg calcium (1,250 mg) tablet 500 mg PO DAILY 08/08/19 [History Last Taken Unknown] aripiprazole 20 mg PO DAILY 10/01/19 [History Last Taken 12/01/19] carbamazepine 200 mg PO DAILY 08/17/21 [History Last Taken Unknown] oxybutynin chloride 5 mg PO DAILY 08/17/21 [History Last Taken Unknown] meclizine 25 mg PO 4X/DAY PRN PRN #20 tab 09/04/21 [Rx Last Taken Unknown] promethazine 25 mg PO TID PRN #30 tab 09/04/21 [Rx Last Taken Unknown] sulfamethoxazole-trimethoprim [Bactrim DS] 1 tab PO BID #14 tab 10/30/21 [Rx Last Taken Unknown] Allergy/AdvReac Type Severity Reaction Status Date / Time fenofibrate Allergy Severe Hives Verified 10/30/21 18:47 cephalexin Allergy Hives Verified 10/30/21 18:47 sertraline HCl [From Zoloft] Allergy Hives Verified 10/30/21 18:47 Family History Father Hypertension Colon cancer Mother Lung cancer Grandmother Breast cancer Surgical History H/O LEEP History of cholecystectomy History of left breast biopsy (~08/2019) Social History Smoking Status: Heavy Smoker (>10/day) alcohol intake: current alcohol intake frequency: a few times a week substance use type: amphetamines ROS ROS ED ROS Narrative Constitutional: No fever, no chills. HEENT: No sore throat. No neck pain. No loss of vision. No rhinorrhea. Cardiovascular: No chest pain. No palpitations. No pedal edema. Respiratory: Occasional cough, mild shortness of breath. Positive purulent disc harge from left breast. Abdominal: No abdominal pain. No nausea. No vomiting. Genitourinary: No dysuria. No hematuria. Musculoskeletal: No myalgias. No arthralgias. Neurologic: No headaches. No dizziness. No lightheadedness. Skin: No rash. No change in color. Psychiatric: No depression. No anxiety. EXAM Physical Exam Narrative Exam Narrative: Afebrile. Vital signs noted. HEENT: Normocephalic. Atraumatic. PERRL, EOMI. Neck soft and supple. No point tenderness or step off. Cardiovascular: Regular rate and rhythm. No murmurs, rubs, or gallops appreciated. Respiratory: No tachypnea. Lungs clear to auscultation bilaterally. Gastrointestinal: Abdomen soft, nontender, with normoactive bowel sounds. No rebound or guarding. Neurological: Awake. Alert. Nonfocal, nonlateralizing. Skin: No rash. Normal color. No pallor. Chaperoned examination reveals that t he patient is able to express purulent drainage with serosanguineous drainage from her left breast around her nipple. No surrounding erythema. Musculoskeletal: No pedal edema. Full range of motion extremities. Const Vital Signs: 10/30/21 18:47 10/30/21 19:29 Temperature 98.0 F Temperature Source Temporal Pulse Rate 101 H Respiratory Rate 16 Respiratory Effort Normal Non-Labored Respiratory Pattern Normal Blood Pressure 162/96 H Blood Pressure Mean 118 Pulse Ox 100 Oxygen Delivery Method Room Air MDM MDM MDM Narrative Medical decision making narrative: Patient was swabbed for Covid. Her result is negative. She wished to leave prior to the results. I was able to discuss the patient regarding her chronic left breast abscess with Dr. Kramer. He is familiar with the patient and agrees that this is a chronic abscess. I will place her on antibiotics. In the past, she was scheduled for surgery, but never made it and would not show up for her appointments. Additionally, he states that she was discharged from the practice. She was advised to follow-up with her doctor in [place]. I printed out a prescription for Bactrim for the next week for her. She was discharged home in stable condition. Discharge Plan Triage Chief Complaint: General Illness ED Provider: Travis Marcos Dx/Rx/DC Orders Clinical Impression: COVID-19 ruled out by laboratory testing, Encounter for laboratory testing for COVID-19 virus, Chronic abscess of breast Instructions: Coronavirus Disease 2019 (COVID-19): Prevention, ED Abscess Antibiotic Treatment Only, ED Screening Exam Medical Nonurgent Prescriptions: New sulfamethoxazole-trimethoprim [Bactrim DS] 800-160 mg tablet 1 tab PO BID Qty: 14 RF: 0 No Action Complete Multivitamin Tablet 1 tab PO DAILY RF: 0 calcium carbonate [Calcium 500] 500 mg calcium (1,250 mg) tablet 500 mg PO DAILY RF: 0 omeprazole 40 capsule,delayed release(DR/EC) 40 mg PO DAILY RF: 0 aripiprazole 20 MG tablet 20 mg PO DAILY RF: 0 carbamazepine 200 mg tablet 200 mg PO DAILY RF: 0 oxybutynin chloride 5 mg tablet extended release 24hr 5 mg PO DAILY RF: 0 promethazine 25 mg tablet 25 mg PO TID PRN (Reason: nausea and vomiting) Qty: 30 RF: 0 meclizine 25 mg tablet 25 mg PO 4X/DAY PRN PRN (Reason: Dizziness) Qty: 20 RF: 0 Stand Alone Forms: ED Work / School Excuse Primary Care Provider: Isatu Fishman Referrals: Isatu Fishman MD [Primary Care Provider] - 11/03/21 Disposition Disposition: Home, Self Care
[2021-10-30 21:01] VITALS: BP 142/63; PULSE 95; RESP 16; O2SAT 98
== END 2021-10-30 21:02 | disposition home or self-care (01) ==
PROVIDERS: Emergency Provider Emergency Medicine; PCP Internal Medicine
DX: Z20.822 Contact with and (suspected) exposure to COVID-19 (principal); N61.1 Abscess of the breast and nipple; F17.210 Nicotine dependence, cigarettes, uncomplicated; F32.A Depression, unspecified; F41.9 Anxiety disorder, unspecified
CPT/HCPCS: 87426; 99282

== ENCOUNTER 2021-12-21 13:34 | Outpatient (CLI) | payer MEDICAID, SELFPAY ==
[2021-12-21 15:28] LABS: HIV - WCH Non-Reactive (Nonreactive); Hepatitis C Antibody Non-Reactive (Nonreactive)
== END 2021-12-21 23:59 | disposition home or self-care (01) ==
LOC: WOBLAB 13:35
PROVIDERS: PCP Internal Medicine; Visit Provider Obstetrics & Gynecology
DX: Z11.4 Encounter for screening for human immunodeficiency virus [HIV] (principal); R35.0 Frequency of micturition
CPT/HCPCS: 36415; 86703; 86803; 87086; 87088

== ENCOUNTER 2021-12-26 16:46 | Emergency (ER) | payer MEDICAID, SELFPAY ==
[2021-12-26 16:47] VITALS: BP 127/102; PULSE 104; RESP 17; TEMP 36.3; O2SAT 100; BMI 32.3
--- NOTE | 2021-12-26 18:16 | EDS_ITS ---
HPI History of Present Illness Chief Complaint: Abscess Informant: patient Onset/Context/Timing Onset: Weeks Narrative Narrative: Patient presents secondary to drainage from breast abscess. She states she has had recurrent left breast abscesses for quite some time. She met with a breast specialist in [place] the first of this month. She was treated with Bactrim followed by a course of doxycycline. She finished this a couple days ago. Patient states normally when she gets these abscesses it will drain through her nipple. Today she presents because she had opening and drainage on the medial surface of the left breast. She denies fever or chills. [facility] Medical History (Updated 12/26/21 @ 18:[address] Padmini Smith MD) Anxiety Carbamazepine overdose of undetermined intent Chest pain Depression Dizziness Intermittent palpitations Lung nodule Moderate dysplasia of cervix (DARRELL II) Nicotine abuse Panic attacks Shortness of breath Suicide attempt Home Medications omeprazole 40 mg PO DAILY 03/03/18 [History Last Taken 12/01/19] multivitamin,[id number] 1 tab PO DAILY 07/02/19 [History Last Taken Unknown] aripiprazole 20 mg PO DAILY 10/01/19 [History Last Taken 12/01/19] oxybutynin chloride 5 mg PO DAILY 08/17/21 [History Last Taken Unknown] diphenhydramine HCl [Benadryl] 25 mg PO TID PRN #14 cap 12/26/21 [Rx Last Taken Unknown] fluticasone propionate 2 spray INTRANASAL DAILY 12/26/21 [History Last Taken Unknown] sulfamethoxazole-trimethoprim [Bactrim DS] 1 tab PO BID #20 tab 12/26/21 [Rx Last Taken Unknown] Allergy/AdvReac Type Severity Reaction Status Date / Time fenofibrate Allergy Severe Hives Verified 12/26/21 16:46 cephalexin Allergy Hives Verified 12/26/21 16:46 sertraline HCl [From Zoloft] Allergy Hives Verified 12/26/21 16:46 Family History Father Hypertension Colon cancer Mother Lung cancer Grandmother Breast cancer Surgical History H/O LEEP History of cholecystectomy History of left breast biopsy (~08/2019) Social History Smoking Status: Heavy Smoker (>10/day) alcohol intake: current alcohol intake frequency: a few times a week substance use type: amphetamines ROS ROS ED Constitutional Constitutional ED: Denies chills or fever(s) Eyes Eyes: Denies change in vision ENT ENT ED: Reports ear pain left; Denies sore throat Cardiovascular Cardiovascular: Denies chest pain Respiratory/Chest Respiratory/Chest: Denies cough or dyspnea Gastrointestinal Gastrointestinal: Denies abdominal pain, nausea or vomiting Genitourinary Genitourinary ED: Denies dysuria Musculoskeletal Musculoskeletal: Denies back pain Integumentary Reports abscess; Denies rash Neurologic Neurologic: Denies headache(s) or weakness Allergic/Immunologic Allergic/Immunologic ED: Denies urticaria EXAM Physical Exam Const Vital Signs: 12/26/21 16:47 Temperature 97.4 F L Temperature Source Oral Pulse Rate 104 H Respiratory Rate 17 Blood Pressure 127/102 H Blood Pressure Mean 110 Pulse Ox 100 Oxygen Delivery Method Room Air Positive well nourished and well developed General Appearance ED: well developed HEENT Reports moist mucous membranes HEENT Narrative: Right TM clear. Clear fluid behind the left TM with some mild erythema of the distal external canal. No acute infection. Eyes PERRL and EOMs intact bilaterally Neck supple Chest Wall palpation of chest normal Chest Narrative: Recently drained abscess along the medial left breast. Previously outlined area measuring approximately 6 x 9 cm has not been extended beyond. No fluctuant material at this point that requires further I&D. Resp normal respiratory effort and clear to auscultation bilaterally GI normal to inspection, nondistended, normoactive bowel sounds Extremity normal to inspection Neuro oriented x3 Sensorium / Orientation: alert Psych mental status grossly normal Skin no rashes or lesions noted MDM [facility] Treatment and Re-Evaluation Comments:: Further I&D is not required at this time. Patient will be treated with a course of Bactrim which she states she did well with. Because the patient has increased fluid behind her left ear with continued pain she will be given a prescription for Benadryl. She is to follow-up with her breast specialist as scheduled. Discharge Plan Triage Chief Complaint: Abscess ED Provider: Padmini Smith Dx/Rx/DC Orders Clinical Impression: Abscess of breast, Otalgia Instructions: ED Abscess Antibiotic Treatment Only, ED Earache Without Infection (Adult) Prescriptions: New sulfamethoxazole-trimethoprim [Bactrim DS] 800-160 mg tablet 1 tab PO BID Qty: 20 RF: 0 diphenhydramine HCl [Benadryl] 25 mg capsule 25 mg PO TID PRN (Reason: ear pain) Qty: 14 RF: 0 No Action Complete Multivitamin Tablet 1 tab PO DAILY RF: 0 omeprazole 40 capsule,delayed release(DR/EC) 40 mg PO DAILY RF: 0 aripiprazole 20 MG tablet 20 mg PO DAILY RF: 0 oxybutynin chloride 5 mg tablet extended release 24hr 5 mg PO DAILY RF: 0 fluticasone propionate 50 mcg/actuation spray,suspension 2 spray INTRANASAL DAILY RF: 0 Primary Care Provider: Isatu Fishman Referrals: Isatu Fishman MD [Primary Care Provider] - 1 Week Activity Restrictions/Additional Instructions: Follow-up with your breast specialist as planned. Disposition Disposition: Home, Self Care
[2021-12-26] MEDS: Smz/Tmp Ds Tablet 1 TABLET PO (18:40)
[2021-12-26 18:44] VITALS: RESP 16
== END 2021-12-26 18:45 | disposition home or self-care (01) ==
PROVIDERS: Emergency Provider Emergency Medicine; PCP Internal Medicine; Visit Provider Emergency Medicine
DX: N61.1 Abscess of the breast and nipple (principal); H92.09 Otalgia, unspecified ear; F17.200 Nicotine dependence, unspecified, uncomplicated
CPT/HCPCS: 99283

== ENCOUNTER 2022-01-18 09:32 | Outpatient (CLI) | payer MEDICAID, SELFPAY ==
[2022-01-22 14:08] LABS: Alternaria tenuis <0.10 kU/L (Class 0); Aspergillus fumigatus <0.10 kU/L (Class 0); Bermuda Grass 0.24 kU/L (Class 0/I); Birch 0.11 kU/L (Class 0/I); Black Walnut 0.18 kU/L (Class 0/I); Cat Hair / Dander,Stand <0.10 kU/L (Class 0); Cedar, Mountain 0.14 kU/L (Class 0/I); Cladosporium herbarum <0.10 kU/L (Class 0); Cockroach, American 0.17 kU/L (Class 0/I); Cottonwood 0.15 kU/L (Class 0/I); D farinae Mite <0.10 kU/L (Class 0); D pteronyssinus 0.11 kU/L (Class 0/I); Dog Epithelia <0.10 kU/L (Class 0); Elm, American White 0.18 kU/L (Class 0/I); Immunoglobulin E 66 IU/mL (6-495); Maple/Box Elder 0.17 kU/L (Class 0/I); Mulberry, White <0.10 kU/L (Class 0); Oak, White 0.21 kU/L (Class 0/I); Pecan 0.13 kU/L (Class 0/I); Penicillium Notatum <0.10 kU/L (Class 0); Pigweed, Rough 0.16 kU/L (Class 0/I); Ragweed, Short/Common 0.21 kU/L (Class 0/I); Russian Thistle 0.19 kU/L (Class 0/I); Sheep Sorrel 0.22 kU/L (Class 0/I); Sycamore, American 0.18 kU/L (Class 0/I); Timothy Grass 0.21 kU/L (Class 0/I)
[2022-01-22 16:07] LABS: Mouse Urine <0.10 kU/L (Class 0)
[2022-01-23 08:07] LABS: Clam <0.10 kU/L (Class 0); Codfish <0.10 kU/L (Class 0); Corn 0.13 kU/L (Class 0/I); Egg, White <0.10 kU/L (Class 0); Milk (Cow) <0.10 kU/L (Class 0); Peanut 0.24 kU/L (Class 0/I); SCALLOP 0.13 kU/L (Class 0/I); Shrimp 0.14 kU/L (Class 0/I); Soybean 0.16 kU/L (Class 0/I); Walnut, (Food) 0.14 kU/L (Class 0/I); Wheat 0.19 kU/L (Class 0/I)
[2022-01-23 13:30] LABS: SESAME SEED 0.22 kU/L (Class 0/I)
== END 2022-01-18 23:59 | disposition home or self-care (01) ==
LOC: LAB 09:34
PROVIDERS: PCP Internal Medicine; Referring Provider Otolaryngology; Visit Provider Otolaryngology
DX: T78.40XA Allergy, unspecified, initial encounter (principal)
CPT/HCPCS: 36415; 82785; 86003

== ENCOUNTER 2022-03-21 09:27 | Emergency (ER) | payer MEDICAID, SELFPAY ==
[2022-03-21 09:28] VITALS: BP 136/99; PULSE 100; RESP 18; TEMP 36.6; O2SAT 99; BMI 33.7
--- NOTE | 2022-03-21 09:53 | RAD_ITS ---
STUDY: X-RAY CHEST REASON FOR EXAM: Female, 47 years old. Cough congestion and headaches. TECHNIQUE: Single AP portable view of the chest. COMPARISON: Comparison is made with prior study dated 12/28/2020. FINDINGS: Stable elevation of the right hemidiaphragm. The lungs are clear. There is no demonstrated pleural abnormality. Normal size heart. Normal mediastinum and ish. Normal visualized pulmonary arteries. Normal visualized aortic arch and descending thoracic aorta. Normal visualized thoracic spine. Normal visualized ribs, clavicles, and shoulders. There is no demonstrated abnormality of the visualized soft tissue structures of the upper abdomen. RAD/Chest 1 View (Portable) IMPRESSION: Normal x-ray examination of the chest. Electronically Signed: Gus Wade MD at 11:08 EDT ,
--- NOTE | 2022-03-21 09:55 | EDS_ITS ---
HPI History of Present Illness Chief Complaint: Cold Sx Informant: patient Onset/Context/Timing Onset: Days Context: Gradual Onset Current Severity: Mild Maximum Severity: Mild Narrative Narrative: Patient presents with cough and congestion for the past 2 days. She states she was with friends last weekend who later tested positive for bronch itis and COVID. She has noted cough and congestion with mild sore throat. She denies fever. Cough is productive of clear sputum only. She reports mild shortness of breath. [facility] Medical History (Updated 03/21/22 @ 11:[address] Padmini Smith MD) Anxiety Carbamazepine overdose of undetermined intent Chest pain Depression Dizziness Intermittent palpitations Lung nodule Moderate dysplasia of cervix (DARRELL II) Nicotine abuse Panic attacks Shortness of breath Suicide attempt Home Medications omeprazole 40 mg PO DAILY 03/03/18 [History Last Taken 12/01/19] multivitamin,[id number] 1 tab PO DAILY 07/02/19 [History Last Taken Unknown] aripiprazole 20 mg PO DAILY 10/01/19 [History Last Taken 12/01/19] oxybutynin chloride 5 mg PO DAILY 08/17/21 [History Last Taken Unknown] diphenhydramine HCl [Benadryl] 25 mg PO TID PRN #14 cap 12/26/21 [Rx Last Taken Unknown] fluticasone propionate 2 spray INTRANASAL DAILY 12/26/21 [History Last Taken Unknown] sulfamethoxazole-trimethoprim [Bactrim DS] 1 tab PO BID #20 tab 12/26/21 [Rx Last Taken Unknown] Allergy/AdvReac Type Severity Reaction Status Date / Time fenofibrate Allergy Severe Hives Verified 03/21/22 09:31 cephalexin Allergy Hives Verified 03/21/22 09:31 sertraline HCl [From Zoloft] Allergy Hives Verified 03/21/22 09:31 Family History Father Hypertension Colon cancer Mother Lung cancer Grandmother Breast cancer Surgical History H/O LEEP History of cholecystectomy History of left breast biopsy (~08/2019) Social History Smoking Status: Heavy Smoker (>10/day) alcohol intake: current alcohol intake frequency: a few times a week substance use type: amphetamines ROS ROS ED Constitutional Constitutional ED: Denies chills or fever(s) Eyes Eyes: Denies change in vision ENT ENT ED: Reports sore throat Cardiovascular Cardiovascular: Denies chest pain Respiratory/Chest Respiratory/Chest: Reports cough, dyspnea and sputum Gastrointestinal Gastrointestinal: Reports diarrhea; Denies abdominal pain, nausea or vomiting Genitourinary Genitourinary ED: Denies dysuria Musculoskeletal Musculoskeletal: Denies back pain Integumentary Denies rash Neurologic Neurologic: Reports weakness; Denies headache(s) Allergic/Immunologic Allergic/Immunologic ED: Denies urticaria EXAM Physical Exam Const Vital Signs: 03/21/22 09:28 03/21/22 10:45 Temperature 98 F Temperature Source Temporal Pulse Rate 100 Respiratory Rate 18 Respiratory Effort Normal Non-Labored Blood Pressure 136/99 H Blood Pressure Mean 111 Pulse Ox 99 Oxygen Delivery Method Room Air Positive well nourished and well developed General Appearance ED: well developed HEENT Reports moist mucous membranes Eyes PERRL and EOMs intact bilaterally Neck supple Chest Wall inspection of chest normal and palpation of chest normal Resp normal respiratory effort and clear to auscultation bilaterally Cardio regular rate and regular rhythm GI normal to inspection, nondistended, normoactive bowel sounds and non-tender Palpation: soft Extremity normal to inspection Neuro oriented x3 Sensorium / Orientation: alert Psych mental status grossly normal Skin no rashes or lesions noted MDM MDM MDM Narrative Medical decision making narrative: Portable chest x-ray obtained along with swabs for COVID and influenza. Lab Data Attestation: I reviewed the patient's lab results. Radiography Diagnostic Testing: Clinical Impression(s) from Imaging Studies Chest X-Ray 03/21/22 09:53 IMPRESSION: Normal x-ray examination of the chest. Electronically Signed: Gus Wade MD at 11:08 EDT , Treatment and Re-Evaluation Narrative: Portable chest x-ray per my interpretation reveals no infiltrate. Radiology interpretation reviewed and agrees. COVID and influenza swabs are negative. Test results discussed with the patient. She will continue supportive care. I advised her to be retested for COVID if symptoms persist. Discharge Plan Triage Chief Complaint: Cold Sx ED Provider: Padmini Smith Dx/Rx/DC Orders Clinical Impression: Viral URI Instructions: ED URI, Viral, No Abx (Adult) Prescriptions: No Action Complete Multivitamin Tablet 1 tab PO DAILY RF: 0 omeprazole 40 capsule,delayed release(DR/EC) 40 mg PO DAILY RF: 0 aripiprazole 20 MG tablet 20 mg PO DAILY RF: 0 oxybutynin chloride 5 mg tablet extended release 24hr 5 mg PO DAILY RF: 0 fluticasone propionate 50 mcg/actuation spray,suspension 2 spray INTRANASAL DAILY RF: 0 sulfamethoxazole-trimethoprim [Bactrim DS] 800-160 mg tablet 1 tab PO BID Qty: 20 RF: 0 diphenhydramine HCl [Benadryl] 25 mg capsule 25 mg PO TID PRN (Reason: ear pain) Qty: 14 RF: 0 Primary Care Provider: Isatu Fishman Referrals: Isatu Fishman MD [Primary Care Provider] - 1 Week if not improving Disposition Disposition: Home, Self Care
[2022-03-21 11:20] VITALS: BP 140/95; PULSE 80; RESP 16; O2SAT 98
== END 2022-03-21 11:21 | disposition home or self-care (01) ==
PROVIDERS: Emergency Provider Emergency Medicine; PCP Internal Medicine; Visit Provider Emergency Medicine
DX: J06.9 Acute upper respiratory infection, unspecified (principal); F17.210 Nicotine dependence, cigarettes, uncomplicated; Z20.822 Contact with and (suspected) exposure to COVID-19; F41.9 Anxiety disorder, unspecified; F32.A Depression, unspecified
CPT/HCPCS: 71045; 87428; 99282

== ENCOUNTER 2022-04-19 08:16 | Emergency (ER) | payer MEDICAID, SELFPAY ==
[2022-04-19 08:17] VITALS: BP 141/85; PULSE 90; RESP 20; TEMP 36.3; BMI 31.7
--- NOTE | 2022-04-19 09:05 | EX.ED.DYSGE1 ---
HPI History of Present Illness Chief Complaint: Abscess Informant: patient Narrative Narrative: Female presenting to the emergency room out of concern for a left inguinal abscess. She states its been there for a month. She states its painful continues to hurt. She has had this in the past on her breast saw surgery in [place]. No reported fevers. No drainage abdomen [facility] Medical History (Updated 04/19/22 @ 09:[address] Charlie Mcdowell DO) Anxiety Carbamazepine overdose of undetermined intent Chest pain Depression Dizziness Intermittent palpitations Lung nodule Moderate dysplasia of cervix (DARRELL II) Nicotine abuse Panic attacks Shortness of breath Suicide attempt Home Medications omeprazole 40 mg capsule,delayed release 40 mg PO DAILY 03/03/18 [History Last Taken 12/01/19] multivitamin,[id number] (Complete Multivitamin) 1 tab PO DAILY 07/02/19 [History Last Taken Unknown] aripiprazole 20 mg tablet 20 mg PO DAILY 10/01/19 [History Last Taken 12/01/19] oxybutynin chloride 5 mg tablet,extended release 24 hr 5 mg PO DAILY 08/17/21 [History Last Taken Unknown] diphenhydramine HCl 25 mg capsule (Benadryl) 25 mg PO TID PRN ear pain #14 caps 12/26/21 [Rx Last Taken Unknown] fluticasone propionate 50 mcg/actuation nasal spray,suspension 2 spray intranasal DAILY 12/26/21 [History Last Taken Unknown] sulfamethoxazole 800 mg-trimethoprim 160 mg tablet (Bactrim DS) 1 tab PO BID #20 tabs 12/26/21 [Rx Last Taken Unknown] doxycycline monohydrate 100 mg capsule 100 mg PO BID #20 CAPSULES 04/19/22 [Rx Last Taken Unknown] hydrocodone-acetaminophen 5-325mg 5mg-325mg 1 tab PO Q6H PRN PRN Pain 3 days #12 TABLETS 04/19/22 [Rx Last Taken Unknown] Allergy/AdvReac Type Severity Reaction Status Date / Time fenofibrate Allergy Severe Hives Verified 04/19/22 08:32 cephalexin Allergy Hives Verified 04/19/22 08:32 sertraline HCl [From Zoloft] Allergy Hives Verified 04/19/22 08:32 Family History Father Hypertension Colon cancer Mother Lung cancer Grandmother Breast cancer Surgical History H/O LEEP History of cholecystectomy History of left breast biopsy (~08/2019) Social History Smoking Status: Heavy Smoker (>10/day) alcohol intake: current alcohol intake frequency: a few times a week substance use type: amphetamines ROS ROS ED Constitutional Constitutional ED: Denies chills or weight loss Eyes Eyes: Denies change in vision or diplopia ENT ENT ED: Denies ear pain, rhinorrhea or sore throat Cardiovascular Cardiovascular: Denies chest pain, orthopnea, palpitations or racing heartbeat Respiratory/Chest Respiratory/Chest: Denies cough, dyspnea or orthopnea Gastrointestinal Gastrointestinal: Denies abdominal pain, diarrhea, nausea or vomiting Genitourinary Genitourinary ED: Denies dysuria, hematuria or urinary frequency Musculoskeletal Musculoskeletal: Denies arthralgias or myalgias Integumentary Reports abscess; Denies rash Neurologic Neurologic: Denies headache(s) or weakness Psychiatric Psychiatric: Denies anxiety, depression, suicidal ideation or suicidal thoughts Endocrine Endocrinology: Denies polydipsia, polyphagia or polyuria Allergic/Immunologic Allergic/Immunologic ED: Denies mouth swelling, tongue swelling or urticaria EXAM Physical Exam Const Vital Signs: 04/19/22 08:17 Temperature 97.3 F L Temperature Source Temporal Pulse Rate 90 Respiratory Rate 20 H Blood Pressure 141/85 H Blood Pressure Mean 103 Positive well nourished and well developed General Appearance ED: well developed HEENT Reports normocephalic, head/scalp atraumatic and moist mucous membranes Eyes PERRL and EOMs intact bilaterally Neck no lymphadenopathy, supple and no JVD Resp normal respiratory effort and clear to auscultation bilaterally Cardio regular rate, regular rhythm and no murmurs GI normal to inspection, nondistended, normoactive bowel sounds and non-tender Palpation: soft Back/Spine no CVA tenderness and normal ROM Extremity normal to inspection General Extremety ED: Negative for edema General Extremity: Negative for edema Neuro oriented x3 and CN's II-XII intact bilaterally Sensorium / Orientation: alert Motor Exam: strength 5/5 throughout Psych mental status grossly normal Mood & Affect: Negative for depressed or tearful Skin no wounds Skin Narrative: In the left inguinal region there is an area of fluctuance of about 1 cm this has some surrounding erythema. MDM MDM MDM Narrative Medical decision making narrative: Bedside ultrasound confirmed the presence of a cutaneous abscess. 1% lidocaine was instilled to the area. A cruciate incision was made with 11 blade. A moderate amount of pus was expressed and the wound was probed for loculations and irrigated with sterile saline. Several inches of half-inch packing was placed. Patient tolerated procedure well. She will be placed on doxycycline and patient was advised to pull the packing in the shower in 3 days. Any problems or concerns she should return to the emergency department Discharge Plan Triage Chief Complaint: Abscess ED Provider: Charlie Mcdowell Dx/Rx/DC Orders Clinical Impression: Cutaneous abscess of groin Instructions: ED Abscess Incision And Drainage Prescriptions: New hydrocodone-acetaminophen [hydrocodone-acetaminophen] 5-325 mg tablet 1 tab PO Q6H PRN PRN (Reason: Pain) 3 Days Qty: 12 0RF doxycycline monohydrate 100 mg capsule 100 mg PO BID Qty: 20 0RF No Action Complete Multivitamin Tablet 1 tab PO DAILY omeprazole 40 capsule,delayed release(DR/EC) 40 mg PO DAILY Label Comments: aripiprazole 20 MG tablet 20 mg PO DAILY oxybutynin chloride 5 mg tablet extended release 24hr 5 mg PO DAILY fluticasone propionate 50 mcg/actuation spray,suspension 2 spray INTRANASAL DAILY Label Comments: [place] 2 spray into both nostrils once a day sulfamethoxazole-trimethoprim [Bactrim DS] 800-160 mg tablet 1 tab PO BID Qty: 20 0RF diphenhydramine HCl [Benadryl] 25 mg capsule 25 mg PO TID PRN (Reason: ear pain) Qty: 14 0RF Primary Care Provider: Isatu Fishman Referrals: Isatu Fishman MD [Primary Care Provider] - Disposition Disposition: Home, Self Care
[2022-04-19] MEDS: Lidocaine 1% (20 ml mdv) 20 ML Vial INFILT (09:57)
== END 2022-04-19 09:58 | disposition home or self-care (01) ==
PROVIDERS: Emergency Provider Emergency Medicine; PCP Internal Medicine; Visit Provider Emergency Medicine
DX: L02.214 Cutaneous abscess of groin (principal); F17.210 Nicotine dependence, cigarettes, uncomplicated; F32.A Depression, unspecified; F41.9 Anxiety disorder, unspecified
CPT/HCPCS: 10060; 99282

== ENCOUNTER 2022-05-05 08:00 | Outpatient (RCR) | payer MEDICAID, SELFPAY ==
--- NOTE | 2022-05-05 09:00 | BH.SGPN.GN ---
Behaviors/Verbalizations/Mental Status: [] Eye contact is good. Motor activity is appropriate. Appearance is casual. Speech is Appropriate. Mood is depressed. Affect is flat. Thoughts are linear and logical. No evidence of psychosis. Reviewed daily check in sheet and pt reports 1/5 for suicidal thoughts and 0/5 for intent. [place] Completed prior to group. Client Response/Progress/Benefit: [] Pt participated when prompted. Attentive. This was pt's first day in IOP and she briefly introduced herself sharing that she has been struggling with significant depression and psychosocial stressors. She also discussed her past issues with substance abuse as well as current legal issues and other psychosocial stressors. Reports being overwhelmed and worried about her future. She is hoping to learn how to better handle my emotions in IOP. Group was welcoming and provided empathy and feedback for her first day/week in the IOP program which was beneficial. No progress noted as this was pt's first day. Will continue in IOP to maintain safety, prevent decompensation, and improve functioning. Narrative Note: []
--- NOTE | 2022-05-05 10:15 | BH.SGPN.GN ---
Behaviors/Verbalizations/Mental Status: []Pt alert and oriented, casually dressed and groomed. Eye contact good. Motor activity appropriate. Speech within normal limits. Affect constricted, mood anxious and depressed. Thoughts linear, logical, no signs of hallucinations or delusions. Client Response/Progress/Benefit: []Pt attentive listening to peers, contributing at times, and taking notes during session. Listened as the group brainstormed the positive and negative aspects of stress on physical and mental health. Group did well to identify the benefits of stress as well as the impact of distress on performance and mental health. Pt?s top stressors right now are interacting with her boss, probation, and finding a place to live. Pt shared her ?stress jar? is full and this manifests in crying, irritability, and wanting to give up. Pt seemed to benefit from increased self-awareness of current stressors and impact stress has on mental health. Pt's first day in IOP. Recommended to continue IOP tx to increase healthy coping, improve daily functioning and prevent decompensation. Narrative Note: []
--- NOTE | 2022-05-10 09:00 | BH.SGPN.GN ---
Behaviors/Verbalizations/Mental Status: []Pt alert and oriented, casually dressed and groomed. Eye contact good. Motor activity appropriate. Speech within normal limits. Affect constricted, mood euthymic. Thoughts linear, logical, no signs of hallucinations or delusions. Reviewed pt?s symptom tracker, no risk for suicidal ideation, plan, or intent as of 05/10/22 Client Response/Progress/Benefit: []Pt responded well to session, engaged and attentive. Pt reports feeling up and down this morning as pt has stressors she is coping with, but also positives like being a month sober. Pt shared she is worried about a friend of hers who does not have housing. Group and therapist offered support and reminded pt that she is allowed to have boundaries and be a good friend. Pt had a job interview and pt reports it went well. Pt hopes to leave her current job as pt does not feel she is getting paid enough for the number of years she has worked there. Pt appeared to benefit from feedback reinforcing self-advocacy and boundaries. Pt will continue IOP tx to prevent decompensation, gain healthy coping skills, and maintain sobriety. Narrative Note: []
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
--- NOTE | 2022-05-10 11:31 | BH.MDN_ITS ---
Multi-Disciplinary Note - Note 30-min Individual Time Started:: 11:00 Date: 05/10/22 Purpose of session/treatment goals addressed:: Reviewed progress and current symptoms. Worked with pt to develop goals for the Master treatment plan. Eye Contact:: Fair Motor Activity:: Slowed Appearance:: Disheveled Speech:: Appropriate Mood:: Depressed Affect:: Flat Thoughts:: Linear, Logical, No evidence of hallucinations/delusions noted Staff Interventions:: treatment planning Client Response:: Pt reports that she is enjoying IOP I like it and believes that she is getting something from it. When asked about her goals for IOP pt states I want to learn how to better cope with my emotions ... be less negative. She describes having low energy and feeling depressed most of the time. When asked about coping strategies that she uses to help with emotions she smiles and says drugs. Remarks how her primary method for coping in the past has been meth use stating it made me happy and gave me energy. She has insight into how this negatively impacted her however she believes that meth helped with her emotions for days. Has been off meth since 10/31/21 however she continues to have significant urges mainly triggered by low energy, stress, anger, and depression. She is linked with therapist, peer support (AA), and lives in sober housing. She identifies her peer support as helpful. Another goals she reports was to stabilize her mood and stop the ups and downs. Her primary strategies for managing emotions currently are listening to music and occasionally journaling. She has been through [facility] and has been given education on CBT in the past however does not recall much. Numerous psychosocial stressors which she has been addressing (legal, financial, housing). She recently obtained a job locally and has submitted application for continued sober living. Risks/Concerns:: Denies active SI, plan or intent. No imminent risks or concerns. Progress Toward Goals/Plan:: Limited progress noted as this is only pt's second day of IOP. Primary coping skills in the past was self-medication with meth which she still reports strong urges. It made me feel happy and energized for several days. She is linked with therapist, peer recovery support, and AA. Currently attending meetings daily and has strong sober support. Limited coping skills for depression and anxiety and she is still early in IOP. Poor sleep is also a concern. Psychiatrist ordered lab work with plan to start on [place] as that had worked well in the past. Numerous psychosocial stressors including housing, finances, legal, and early sobriety. Currently living in sober housing however unsure if she will remain. Plan is to continue in IOP to prevent decompensation, increase healthy coping, and improve functioning. Time Stopped:: 11:30
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
--- NOTE | 2022-05-10 12:00 | BH.MTP_ITS ---
Master Treatment Plan - Patient Information Program Physician:: Laurie Silva Primary Therapist:: Ron Hardy - Psychiatric Diagnoses Psychiatric Diagnoses:: 1. Bipolar 1 disorder, most recent episode mixed, severe without psychosis. 2. Generalized anxiety disorder. 3. PTSD. 4. Alcohol use disorder with relapse 4 weeks ago but sober since. 5. Methamphetamine use disorder in full remission for over 6 months Diagnosis Code(s):: F31.63 - Estimated LOS Estimated LOS (in weeks):: 6 Problem/Goal #1 - Problem/Goal #1 Stated Goal:: Client will increase mood stability and reduce depression, anger, passive thoughts of and hopelessness through Intensive Outpatient Services AEB self-report and reduction of scores in the depression, anger, and suicide domains of the DSM-5 cross-cutting scales. Description of Barriers: unstable housing, no transportation, financial stressors, struggles to remain sober (alcohol, meth, marijuana), legal issues, limited coping, limited support, and long-standing mental health symptoms Functional Impact: Pt reports that mood instability increase urges to self- medicate with substances, impacts energy/motivation, and has caused confict with support. Goal Relevant Strengths/Supports: appears motivated, resilient, completed [facility] IOP recently. - Objectives Objective #1 Stated Objective: Pt will learn and utilize 2-3 healthy coping strategies to better manage depressive and mood symptoms as shown by reduced DSM-5 scores and self-report. Interventions: Through individual and group counseling will teach client various coping skills to manage symptoms and give tangible resources to use to regulate emotions. IOP staff will educate on the use cognitive restructuring techniques and help client gain awareness of negative thoughts that reinforce depressive cycles. Discharge Criteria: Able to identify and consistently use 2-3 healthy coping strategies for depression, anger, and emotional dysregulation. Target Date: 06/20/22 Review Date: 05/31/22 Objective #2 Stated Objective: Client will identify 2-3 cognitive distortions or mistaken beliefs that lead to rumination and learn 2-3 ways to manage these thoughts to reduce symptoms. Interventions: Through individual and group counseling will provide education on the most common cognitive distortions and teach client the connection between thoughts, emotions, and feelings. Therapist will use CBT and DBT techniques to help client gain awareness of thinking errors and learn how to more effectively handle negative thoughts. Discharge Criteria: Able to identify 3 commonly used cognitive distortion and strategies to reframe and challenge these thoughts. Target Date: 06/20/22 Review Date: 05/31/22 Problem/Goal #2 - Problem/Goal #2 Stated Goal:: Stabilize anxiety level while increasing ability to function on a daily basis AEB self-report and reduction of scores on the DSM-cross cutting scale's anxiety domain. Description of Barriers: unstable housing, no transportation, financial stressors, struggles to remain sober (alcohol, meth, marijuana), legal issues, limited coping, limited support, and long-standing mental health symptoms Functional Impact: Pt reports that mood instability along with anxiety increase urges to self-medicate with substances and leads to significant anger/irritability which has lead to legal charges. Goal Relevant Strengths/Supports: appears motivated, resilient, completed [facility] IOP recently. - Objectives Objective #1 Stated Objective: Client will learn and implement 2-3 calming skills to reduce overall anxiety and manage anxiety Interventions: Through individual and group counseling will help client increase awareness of anxiety triggers and educate client on the ways anxiety impacts overall health. Therapist will teach client various calming and mindfulness strategies to promote emotional regulation and reduction of anxiety. Therapist will encourage client to implement healthy coping skills on a regular basis. Discharge Criteria: Able to identify 2-3 calming skills for anxiety and self report reduction in anxiety/panic. Target Date: 06/20/22 Review Date: 05/31/22
[2022-05-10 12:23] VITALS: BP 152/101; PULSE 77
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
--- NOTE | 2022-05-10 13:01 | BH.DR.ITP ---
Initial Treatment Plan Patient Information Visit Information: ADMISSION DATE: EXPECTED LOS: 4-6 weeks Problems/Symptoms Problem #1:: Mood instability Symptom:: Depression, anger, irritability, hopelessness, worthlessness, biological disruption of sleep, low energy, decreased concentration, passive thoughts of , daily, passive fleeting suicidal ideation Problem #2:: Anxiety Symptom:: Worry, rumination, panic attacks, flashbacks, nightmares, reexperiencing, avoidance
--- NOTE | 2022-05-12 09:05 | BH.SGPN.GN ---
Behaviors/Verbalizations/Mental Status: [] Eye contact is good. Motor activity is appropriate. Appearance is casual. Speech is Appropriate. Mood is depressed. Affect is flat. Thoughts are linear and logical. No evidence of psychosis. Reviewed daily check in sheet and no reports of suicidal ideations or intent. Client Response/Progress/Benefit: [] Pt participated at times during group discussions. Attentive. Emotion for today is frisky. Daily symptom tracker notes 5/5 for depression and anxiety and 4/5 for irritability. States that her life is at a stand still. Numerous psychosocial stressors which are impacting her anxiety and depression. Coping skills which have been most helpful include talking and music. Reports struggles with staying asleep. Shared with the group that she is a month sober today. Shared that she had relapse a month ago and has worked hard to remain sober. Progress noted. Benefited from group support, encouragement, and feedback. Will continue in IOP to maintain safety, increase healthy coping skills, and prevent decompensation. Narrative Note: []
--- NOTE | 2022-05-12 10:15 | BH.SGPN.GN ---
Behaviors/Verbalizations/Mental Status: []Eye contact is good. Motor activity is appropriate. Appearance is casual. Speech is Appropriate. Mood is euthymic. Affect is congruent. Thoughts are linear and logical. No evidence of psychosis. Client Response/Progress/Benefit: []Pt was an active participant in group discussion and activity. Attentive during psychoeducation on the stages of change. Pt participated in interactive discussion on emotions associated with change (happy, anxious, proud, shocked, surprised, guilty, etc). Pt along with peers identified barriers that may prevent one from making change such as ?used to routine and I don?t like being out of control.? Group able to identify the benefits to changes such as acceptance, patience, self-awareness, and personal growth. Benefited from increased awareness of emotions related to change, the change process, and benefits/barriers to change. Will continue in IOP to prevent decompensation, gain healthy coping skills, and maintain sobriety. Narrative Note: []
--- NOTE | 2022-05-16 09:05 | BH.SGPN.GN ---
Behaviors/Verbalizations/Mental Status: [] Eye contact is good. Motor activity is appropriate. Appearance is casual. Speech is Appropriate. Mood is anxious. Affect is congruent. Thoughts are linear and logical. No evidence of psychosis. Reviewed daily check in sheet and no reports of suicidal ideations or intent. Client Response/Progress/Benefit: [] Pt was an active participant in group discussion. Attentive. Provided appropriate feedback. Daily symptom tracker notes 3/5 for depression/irritability and 5/5 for anxiety. Pt reports increased anxiety this week due to potential move into new housing. Shared stressors as paying first month's rent, moving, and affording the place. She has a job lined up however discussed several obstacles. I'm wound up which has impacted her sleep. Seeking reassurance that she is making the right decisions externally and internally. She is also moving from a sober living house to living on her own which brings up fear of relapse and maintaining her sobriety. Group was empathetic and provided support which was beneficial. Will continue in IOP to maintain safety, prevent decompensation, and stabilize mood. Narrative Note: []
--- NOTE | 2022-05-16 10:15 | BH.SGPN.GN ---
Behaviors/Verbalizations/Mental Status: [] Eye contact is good. Motor activity is appropriate. Appearance is casual. Speech is Appropriate. Mood is depressed. Affect is flat. Thoughts are linear and logical. No evidence of psychosis. Client Response/Progress/Benefit: [] Pt participated at times during the group discussion. Attentive during psychoeducation. Participated in experiential activity. Pt was attentive AEB by note-taking during interactive discussion on the consequences of unhealthy expression of emotions. Attentive while peers identified several consequences which included; judgement from others, can push people away, people will keep information from us for fear we cannot handle it, we are perceived as angry or crazy, impacts our ability to effectively communicate. Attentive during interactive discussion on common potholes to effectively communicating which included; not focusing on topic at hand, too many issues/concerns at once, assumptions, jumping to conclusions, sarcasm, listening only to respond, and mental health struggles. Pt was able to relate and make connections between the experiential activity and the overall topic. Benefited from increased awareness of how stress and emotions can impact one's ability to communicate. Will continue in IOP to maintain safety, stabilize mood, and increase healthy coping. Narrative Note: [] Narrative Note: []
--- NOTE | 2022-05-17 09:00 | BH.COMM ---
Communication Note - Communication with Client Communication Note: Cancelled IOP today as she is moving into her new apartment. She was scheduled to see psychiatry today.
--- NOTE | 2022-05-19 09:10 | BH.SGPN.GN ---
Behaviors/Verbalizations/Mental Status: [] Client Response/Progress/Benefit: [] Pt was an active participant in group discussion. Attentive. Provided appropriate feedback. Emotion for today is tired. Daily symptom tracker notes 2/5 for depression, 5/5 for anxiety, and 2/5 for anger. Mental health mandeep was moved into my own place yesterday. Shared with the group that she moved out of transitional housing and is renting a room until she can save enough money to get an apartment. I was up till 3am last night Overall she reports that she was extremely anxious and excited yesterday which led to staying up later and being tired this AM. Her depression remains however more anxious. Happy for her independence and is excited to be starting a new job tomorrow morning. She has a AA meeting this afternoon and plan to rest and relax the rest of the day/night. She remains significantly anxious about her future, remaining sober (with increased independence), and keeping her job. Progress noted per pt report. Benefited from group support, encouragement, and feedback. Will continue in IOP to prevent decompensation, increase healthy coping skills, and maintain safety. Narrative Note: []
--- NOTE | 2022-05-19 10:10 | BH.SGPN.GN ---
Behaviors/Verbalizations/Mental Status: []Pt alert and oriented, casually dressed and groomed. Eye contact good. Motor activity appropriate. Speech within normal limits. Affect congruent, mood euthymic and tired. Thoughts linear, logical, no signs of hallucinations or delusions. Client Response/Progress/Benefit: []Pt was an engaged participant AEB pt listening attentively to others. Attentive during psychoeducation on communication styles. Assisted group with identifying barriers of effective communication which included: ?dropping hints,? shutting down, assumptions, yelling, and being passive-aggressive. Pt identified they most often use aggressive or assertive communication. Pt reports being aggressive impacts pt by causing guilt, shame, and more conflict. Pt stated she tries to use I-statements and work out problems now. Benefited from increased awareness of different communication barriers, styles, and the importance of communicating effectively to improve mental wellness. Will continue IOP tx to maintain sobriety, improve emotional regulation skills, and improve daily functioning. Narrative Note: []
--- NOTE | 2022-05-19 11:10 | BH.SGPN.GN ---
Behaviors/Verbalizations/Mental Status: []Pt alert and oriented, casually dressed and groomed. Eye contact good. Motor activity appropriate. Speech within normal limits. Affect congruent, mood euthymic. Thoughts linear, logical, no signs of hallucinations or delusions Client Response/Progress/Benefit: []Pt responded well to session AEB pt listening attentively to others and providing input during group discussion on the pay offs and costs of the different communication styles. Pt recognizes negative impact on relationships when she doesn't use healthy communication style. Pt did well in the activity to be assertive and ask for feedback. Recognizes if group wasn't assertive in activity they wouldn't have been successful. Attentive during psychoeducation on interpersonal DBT skill VALERIE. Pt set a goal to work on being more mindful instead of bringing up past issues. Recognizes staying present will help increase ability to come up with resolution. Pt seemed to benefit from increasing awareness of healthy strategies to improve communication. Pt to continue IOP to increase healthy coping skills, maintain sobriety and prevent decompensation.
--- NOTE | 2022-05-23 09:00 | BH.SGPN.GN ---
Behaviors/Verbalizations/Mental Status: []Pt alert and oriented, casually dressed and groomed. Eye contact good, motor activity appropriate, speech WNL. Affect constricted, mood anxious. Thoughts linear, logical, no signs of hallucinations or delusions. No risk reported on pt's daily symptom tracker. Client Response/Progress/Benefit: []Pt responded well to session, attentive and receptive to feedback. Pt reports feeling worried this morning as pt has had a lot of positive changes recently, but change is hard for pt. Pt recently moved, got a new job, and is trying to find a new routine all while maintaining sobriety. Pt shared she has been having some cravings, but she has been able to curb these by focusing on one moment at a time and talking with her girls swimming coach. Pt enjoys her new job, but pt is worried about getting enough hours to pay for rent. Pt was encouraged to advocate for herself at work. Pt appeared to benefit from reflecting on her ability to maintain sobriety using healthy coping skills. Pt will continue IOP tx to improve daily functioning, increase use of healthy coping skills, and gain healthy supports. Narrative Note: []
--- NOTE | 2022-05-23 10:10 | BH.SGPN.GN ---
Behaviors/Verbalizations/Mental Status: [] Eye contact is good. Motor activity is appropriate. Appearance is casual. Speech is Appropriate. Mood is anxious. Affect is constricted. Thoughts are linear and logical. No evidence of psychosis. Client Response/Progress/Benefit: [] Client responded well to session AEB sharing and listening attentively to others. Client participated in group discussion defining boundaries and why having healthy boundaries is important. . Client appeared to connect to psychoeducation on types of boundaries, including physical, emotional, and intellectual. Client listened attentively and nodding throughout discussion in which group members shared personal examples of different types of boundaries. Client stated how boundaries can be difficult to implement due to change being hard especially when used to the way past boundaries are. Client appeared to benefit from increased knowledge of the types of boundaries and increased self-awareness of personal boundaries. Will continue IOP treatment to prevent decompensation and independent coping skills to improve daily functioning. Narrative Note: []
--- NOTE | 2022-05-24 09:00 | BH.SGPN.GN ---
Behaviors/Verbalizations/Mental Status: []Pt alert and oriented, casually dressed and groomed. Eye contact good. Motor activity appropriate. Speech within normal limits. Affect congruent, mood euthymic. Thoughts linear, logical, no signs of hallucinations or delusions. Reviewed pt?s symptom tracker, no risk for suicidal ideation, plan, or intent. Client Response/Progress/Benefit: []Client responded well to session AEB client listening attentively to peers and sharing thoughts and feelings. Client reported mental health positive as being able to get a hold of [employer] to get her transportation to and from work set up. Client stated additional mental health positive as starting her new job this week and really enjoying it. Client reported tonight will be her third shift and she believes the new environment will be helpful. 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 Client reported continued stressors of transportation issues and having to pay for bills. Seemed to benefit from support from peers and expressing thoughts and feelings. Client to continue IOP to increase healthy coping, challenge negative thoughts and prevent decompensation. Narrative Note: []
--- NOTE | 2022-05-24 10:15 | BH.SGPN.GN ---
Behaviors/Verbalizations/Mental Status: []Pt alert and oriented, neatly dressed and groomed. Eye contact good. Motor activity appropriate. Speech within normal limits. Affect constricted, mood anxious. Thoughts linear, logical, no signs of hallucinations or delusions. Client Response/Progress/Benefit: []Pt responded well to session AEB sharing and listening attentively to others. Pt participated in group discussion defining taking action and becoming sober as a personal example. Group identified barriers to taking action, with examples of fear of failure and not wanting to feel uncomfortable. 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 Pt identified lack of trust, fear of failure, and anxiety as driving their ?bus? most often.? Pt shared if they could gain control over these things pt would be more confident in her abilities. Appeared to benefit from increased self-awareness and knowledge regarding examples and barriers to taking action. Will continue IOP tx to maintain sobriety, improve emotional regulation skills, and increase healthy boundaries. Narrative Note: []
--- NOTE | 2022-05-24 12:18 | PCM.BH.PN ---
Progress Note Progress Note: History of Present Illness/Interim History: [] The patient is a 47-year-old single female with a history of bipolar disorder, alcohol use disorder, and methamphetamine use disorder who is seen in follow-up at the [facility] behavioral health IOP program. I last saw the patient 1 week ago and at that time the patient had requested and desired to restart lithium as she felt she had done well on it in the past. She did not obtain her lithium labs, however, and the patient today says that she does not want to go back on lithium just yet. She moved out of the sober living place and is now living in a room at a [facility] which has been stressful for her as there is things about this room that she does not like including cockroaches. She is working currently at a [employer] and doing okay there. She still has some anxiety and some trouble sleeping at times. Her mood is a little better but still little depressed. She has cravings for mostly methamphetamine. She has remained sober from alcohol and methamphetamine. She still has occasional panic attacks which she stated today that she has at least 2 times daily but in the past she had said it was a little less like 2 times a week. She admits to passive thoughts that she would not care if she and still occasional passive, daily, fleeting suicidal ideation with no definitive plan. She denies suicidal ideation homicidal ideation, hallucinations or delusions. She still has some PTSD symptoms the same as last week when she was seen. Current Psychiatric Medications: [] Abilify 20 mg p.o. daily; hydroxyzine as needed for anxiety Mental Status Examination: [] The patient is a 47-year-old female who is casually dressed and groomed with good hygiene and appears normal or a little older than stated age. She has no psychomotor agitation or retardation. Eye contact is good and speech is normal rate and rhythm and fluent with no pressure. Mood is depressed. Affect is full and normal. Thought process is goal-directed and organized. Thought content: There is evidence of passive thoughts of and fleeting, passive suicidal ideation. There is no evidence of active suicidal ideation, plan for suicide, homicidal ideation, hallucinations, delusions or savannah. Reality testing is intact. Intelligence is average. Judgment is limited but intact. Insight fair. Impulsivity high. Diagnoses: [] 1. Bipolar 1 disorder, most recent episode mixed, severe without psychosis 2. Generalized anxiety disorder 3. PTSD 4. Alcohol use disorder with relapse 5 weeks ago but sober since 5 weeks ago. 5. Methamphetamine use disorder in full remission for over 6 months 6. Primary support and financial issues Plan: [] The patient will continue the IOP program at [facility] as the structure, support, education and group therapy will hopefully prevent worsening of the patient's symptoms which might require hospitalization. She felt safe during the interview and if it anytime she does not feel safe she will let us know or go to the emergency room. The patient agrees to add Seroquel 50 mg p.o. nightly to see if will help her get better sleep. In addition this may help her anxiety. The patient was offered naltrexone to reduce cravings but she refuses any kind of medication to decrease her cravings. Patient understands the importance of remaining sober from all drugs or alcohol use. She will continue to follow-up with her outpatient providers and I will see the patient in follow-up in several weeks.
--- NOTE | 2022-05-30 09:39 | BH.COMM ---
Communication Note - Communication with Client Communication Note: cancelled this AM
--- NOTE | 2022-05-31 09:00 | BH.COMM ---
Communication Note - Communication with Client Communication Note: cancelled IOP today
--- NOTE | 2022-05-31 14:00 | BH.TPR ---
Treatment Plan Review Date of Admission:: 05/05/22 Date of Treatment Plan Review:: 05/31/22 Admitting Diagnoses:: 1. Bipolar 1 disorder, most recent episode mixed, severe without psychosis. 2. Generalized anxiety disorder. 3. PTSD. 4. Alcohol use disorder with relapse 4 weeks ago but sober since. 5. Methamphetamine use disorder in full remission for over 6 months Current Diagnoses:: 1. Bipolar 1 disorder, most recent episode mixed, severe without psychosis. 2. Generalized anxiety disorder. 3. PTSD. 4. Alcohol use disorder with relapse 4 weeks ago but sober since. 5. Methamphetamine use disorder in full remission for over 6 months Patient's Response to Treatment:: Pt initially responded well to treatment with consistent attendance and engagement in group counseling. Provided appropriate feedback and reported increased insight and awareness of healthy coping skills. She reported increased support, hope, and felt she was getting a lot out of groups. Stated I really like it here. Program psychiatrist and pt initially agreed to restart her on [facility], however pt did not follow through with lab work and later changed her mind about starting [facility]. Pt moved out of residential living on 05/17/22 and began to rent a room in house. Since then her attendance and engagement have decreased significantly. Pt cancelled yesterday and today therefore did not complete DSM cross-cutting scales (outcome measurement). Status of Current Problems and Symptoms: Due to cancelling IOP all this week and not completing 4 week outcome measurement it is hard to assess current progress and symptoms. Plan is to continue in IOP to prevent decompensation, increase health coping skills, stabilize mood, and decreased depressive symptoms. Problem #1 Problem Name:: Mood instability Status of Goals:: Obj 1/2- increased awareness and insight on coping skills and cognitive distortions through psychoeducation mainly in group settings, however has not consistently implemented these skills outside of the program. Team Recommendations:: Treatment team has stressed the importance of consistent attendance in IOP to gain skills. When present she is engaged, attentive, and provides great feedback. Significant concern that current living situation is not conducive her her mental health and sobriety. Problem #2 Problem Name:: Anxiety Status of Goals:: Obj1 - Increased awareness and education on calming skills through group and individual counseling, however uncertain if she is implementing these outside of the program. Team Recommendations:: Treatment team has stressed the importance of consistent attendance in IOP to gain skills. When present she is engaged, attentive, and provides great feedback. Significant concern that current living situation is not conducive her her mental health and sobriety.
--- NOTE | 2022-06-06 10:46 | BH.COMM ---
Communication Note - Communication with Client Communication Note: called and cancelled IOP again this AM. Third missed IOP in a row. Therapist made phone call to pt's outpatient therapist Travis Rivas at [facility] to discuss case. Also sent an update letter regarding our concerns. Some concern that she might have relapsed as she recently moved from residential sober living to her own apartment.
--- NOTE | 2022-06-07 09:00 | BH.COMM ---
Communication Note - Communication with Client Communication Note: Pt called in this AM cancelling for today. She was given notice that if she cancels any further IOP sessions she will be discharged from the program.
== END 2022-06-04 23:59 ==
LOC: BHIOP 08:00
PROVIDERS: PCP Internal Medicine; Referring Provider Psychiatry & Neurology Psychiatry; Visit Provider Psychiatry & Neurology Psychiatry
DX: F31.63 Bipolar disorder, current episode mixed, severe, without psychotic features (principal); F41.1 Generalized anxiety disorder; F43.10 Post-traumatic stress disorder, unspecified; Z72.89 Other problems related to lifestyle; R45.851 Suicidal ideations; Z79.899 Other long term (current) drug therapy
CPT/HCPCS: 90792; 99213; H2012; H2020; S9480; T1002; 90832

== ENCOUNTER 2022-06-05 07:37 | Outpatient (RCR) | payer MEDICAID, SELFPAY ==
[2022-06-05 00:37] VITALS: BP 152/101; PULSE 77
--- NOTE | 2022-06-13 10:05 | BH.SGPN.GN ---
Behaviors/Verbalizations/Mental Status: [] Client alert and oriented, casually dressed and groomed. Eye contact good. Motor activity appropriate. Speech within normal limits. Affect constricted, mood euthymic. Thoughts linear, logical, no signs of hallucinations or delusions. Client Response/Progress/Benefit: [] Client was an active participant in activity and taking notes during group discussion. Attentive during psychoeducation on coping skills, why people use unhealthy coping skills, and how to replace unhealthy coping skills. Client shared unhealthy past coping skill she used in the past being drugs and alcohol leading her to depend upon them. Benefited from increased understanding of unhealthy coping skills and the need for developing healthy internal and external coping skills. Client will continue IOP tx to prevent decompensation, increase boundary setting, and improve daily functioning. Narrative Note: []
--- NOTE | 2022-06-13 10:12 | BH.MDN ---
Multi-Disciplinary Note - Note 45-min Individual Time Started:: 09:15 Date: 06/13/22 Purpose of session/treatment goals addressed:: Reviewed current symptoms and issues. Discussed treatment plan review with patient. Reviewed DSM outcomes with patient as well. Eye Contact:: Fair Motor Activity:: Slowed Appearance:: Casual Speech:: Appropriate Mood:: Depressed Affect:: Flat Thoughts:: Linear, Logical, No evidence of hallucinations/delusions noted Staff Interventions:: psychoeducation on: - boundary-setting., reviewed DSM-5 Client Response:: Pt apologized for not attending IOP in the past 2 weeks. She denies relapse on substances. According to patient she took a drug test last week with her PO which was negative. She denies any significant mental health triggers in the past 2 weeks however is struggling with sleep, motivation, and energy. Her current housing situation is not ideal as a 'friend' has apparently moved into her room. This friend sleeps all day and is up all night. Pt works 5 days a week from 4pm-11pm and when she returns home is up till 3-4am due to being disturbed by this friend. She states that he was putting a grill together at 3am the other night. According to patient this friend has no job, no income, and basically sleeps all day and is up all night. This interferes with her schedule. She has insight on how this impacts her mental and physical health as well as her energy throughout the day. The housing situation is also not ideal as she has noticed cockroaches, there is no stove, and the house has a total of 5-6 people who come and go at all different hours (she rents a room in the house). Insight into how this impacts her however struggles with set appropriate boundaries. I need to have a talk with him. She given several examples of trying to set boundaries however friend does not respect them. We discussed boundary-setting skills and encouraged getting on appropriate sleep schedule. Risks/Concerns:: No risks or concerns noted. Progress Toward Goals/Plan:: Limited progress. According to outcomes measurements patient overall symptoms increased 9%, however a closer look reveals a 14% decrease in the depression domain, 25% decrease in the anger domain, a 50% reduction in suicidal thoughts, and her scores in the anxiety domain remained the same (no decompensation despite numerous life stressors). She has not decompensated in the above categories. Notes increase in memory difficulties and personality functioning (not knowing what she wants out of life or enjoying relationships with others). This would make sense due to difficult relationship with roommate/friend. She has maintained her FT employment for the past 3 weeks and reports sobriety. Her mental health has not significantly decompensated due to stressors and has actually improved in certain areas. Minimal progress mostly likely due to current housing struggles, poor sleep, and other psychosocial stressors. Plan is to continue in IOP to prevent decompensation. She missed last scheduled appt with program psychiatrist and due to transportation issues we are unable to secure a ride to meet with psych till 06/28/22. Currently [facility] is transportation to and from program which will limit number of sessions in the next few weeks.
--- NOTE | 2022-06-13 11:05 | BH.SGPN.GN ---
Behaviors/Verbalizations/Mental Status: [] Client tired from lack of sleep and oriented, neatly dressed and groomed. Eye contact poor. Motor activity appropriate. Speech within normal limits. Affect constricted, mood euthymic. Thoughts linear, logical, no signs of hallucinations or delusions. Client Response/Progress/Benefit: [] Client responded well to session AEB taking notes and providing input and examples throughout. Group discussed the different categories of coping skills which included distraction. Client discussed the pros and cons of each coping category along with giving examples of coping mechanisms. Appeared to benefit from increasing repertoire of healthy coping skills. Client will continue IOP tx to improve daily functioning, reduce negative thinking, and increase application of healthy coping skills. Narrative Note: []
--- NOTE | 2022-06-20 09:05 | BH.SGPN.GN ---
Behaviors/Verbalizations/Mental Status: [] Eye contact is good. Motor activity is appropriate. Appearance is casual. Speech is Appropriate. Mood is euthymic. Affect is full. Thoughts are linear and logical. No evidence of psychosis. Reviewed daily check in sheet and pt reports 1/5 for suicidal thoughts and 0/5 for intent. Client Response/Progress/Benefit: [] Pt participated during group discussions. Attentive. Provided appropriate feedback. Daily symptom tracker notes 2/5 for depression, 3/5 for anxiety/irritability. Emotion for today is frisky. Mental health wins include maintaining sobriety and setting boundary with 'friend'. Reports that a friend that had been staying at her place left last week. Discussed how setting this boundary was beneficial to her physical and mental health. Her stressor today is work-related. She shared with the group an incident that happened last week while working in which she believed that she was being taken advantage. This led to an anger outburst at work and her walking out. I was talking shit personally. She was able to apologize to her employment case manager and co-workers the next day and has since returned. Processed this event with group and was able to identify possible triggers to anger and skills that could have been implemented that could have minimized her anger which was beneficial. Plan is to continue in IOP to maintains gains and prevent decompensation. Narrative Note: []
--- NOTE | 2022-06-20 11:15 | BH.SGPN.GN ---
Behaviors/Verbalizations/Mental Status: [] Client alert and oriented, casually dressed and groomed. Eye contact good. Motor activity appropriate. Speech within normal limits. Affect congruent, mood euthymic. Thoughts linear, logical, no signs of hallucinations or delusions. Client Response/Progress/Benefit: [ ] Client was an active participant throughout AEB contributing to discussion, providing personal examples, and taking notes. Client processed emotions felt in the activity and how they coped in the moment. Client provided input during discussion on the types of support our supports can provide. Client able to identify current support system and barriers that get in the way of using supports by drawing out their own support net. Client seemed to benefit from identifying the type of support client needs to work on improving. Client recommended to continue IOP tx to increase functioning, identify and replace cognitive distortions and increase emotional regulation skills. Narrative Note: []
--- NOTE | 2022-06-20 14:19 | BH.MDN_ITS ---
Multi-Disciplinary Note - Note 45-min Individual Time Started:: 10:15 Date: 06/20/22 Purpose of session/treatment goals addressed:: Reviewed progress and current symptoms. Addressed treatment plan goal 1. Eye Contact:: Good Motor Activity:: Appropriate Appearance:: Casual Speech:: Appropriate Mood:: Euthymic Affect:: Full Thoughts:: Linear, Logical, No evidence of hallucinations/delusions noted Staff Interventions:: thought challenging, CBT techniques, discharge planning Client Response:: Pt presents today reporting mild improve in anxiety and depression since last week. She was able to set boundaries with 'friend' who was staying in her room (refer to last note) and he has since moved out. So much less stress. She discussed how this has positively impacted her sleep and mental health. She continues to struggle with sleep however after further discussion this is due to consuming excessive caffeine after work last night (10pm). She consumes caffeine throughout the day to help pep me up. Long- standing low energy and motivation however not so much associated with depression just being tired. Poor sleeping patterns as she often stays awake till 3-4am. I've always been a night owl. Reports that she finds it most relaxing to stay up late. Reviewed treatment plan objective to identify 2-3 healthy coping strategies which she identified relying on support which includes us, her friends, and peer recovery. Another coping strategy included slowing down and thinking about things. She implemented thought reframing and challenging yesterday when she had the urge to smoke weed. Able to identify consequences such as increased anxiety, worry, guilt, PV, and others. Another goal was to be able to identify cognitive distortions she uses frequently. Patient identified absolute thinking and emotional reasoning as primary distortions. She is able to verbalize how to reframe however admits to struggling to implement skills when stressed, tired, or anxious. Risks/Concerns:: No risks or concerns noted. Progress Toward Goals/Plan:: Pt only attended IOP once last week and once this week due to transportation obstacles. Pt reports stabilized mood for the past week. Set boundaries with 'friend' which has improved mental health and sleep. Overall she reports that her anxiety has decreased. Denies any suicidal thoughts in several weeks. More hopeful and future-oriented. She attributes improved mood to being more independent as she is working full-time and has her own place. She struggles to make healthy decisions (poor sleep cycle and excessive caffeine use) however reports her mood is better than when I started. Primary stressor is remaining on probation for the next year. She does have urges to use meth/marijuana however has done well with her sobriety and relapse prevention skills. Has stopped AA meetings however continues with SA counseling and peer recovery through . Pt is agreeable with d/c from IOP next week. She has aftercare set-up with Dr. Gentile (psychiatry) on 06/27/22 and Travis (counseling) on 06/26/22. Plan is to discharge next week as she has made progress on treatment plan goals, denies SI in several weeks, and reports decreased severity, intensity, and duration of emotional distress. Time Stopped:: 11:00
--- NOTE | 2022-06-27 09:00 | BH.SGPN.GN ---
Behaviors/Verbalizations/Mental Status: []Pt alert and oriented, casually dressed and groomed. Eye contact good, motor activity appropriate. Mood happy. Affect congruent. Speech within normal limits. Thoughts linear, logical, no signs of delusions or hallucinations. Reviewed pt's symptom tracker, no risk for SI plan or intent. Client Response/Progress/Benefit: []Pt responded well to session, attentive and providing supportive statements. Pt reports her emotion today as groovy and pt shared tomorrow is her last day of IOP. Pt reflected on her progress in both mental health recovery and addiction recovery. Pt has been able to maintain sobriety, pay her rent, manage emotions in healthier ways, and make healthier decisions. Pt reports it will be ongoing work to find a job that fits pt's personality, but pt has been able to avoid unnecessary consequences when triggered at work. Pt appeared to benefit from reflecting on her growth and improved functioning. Pt will discharge from IOP tx tomorrow, but pt can benefit from one more day of IOP to reinforce healthy coping skills and provide closure. Narrative Note: []
--- NOTE | 2022-06-28 09:00 | BH.SGPN.GN ---
Behaviors/Verbalizations/Mental Status: [] Eye contact is good. Motor activity is appropriate. Appearance is casual. Speech is Appropriate. Mood is euthymic. Affect is full. Thoughts are linear and logical. No evidence of psychosis. Reviewed daily check in sheet and no reports of suicidal ideations or intent. Client Response/Progress/Benefit: [] Pt was an active participant in group discussion. Attentive. Provided appropriate feedback. Emotion for today is mixed (happy and sad). Shared that this is mainly due to today being her last day in the IOP program. Mental health win is getting to bed early and sleeping well last night. Primary stressor is related to work. 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 She is going to be looking for another job. She reports that she did not make any impulsive decisions as she has insight that impulsively quitting will have several consequences. Looking back at her time in IOP she reports many changes, struggles, and obstacles. Believes that she has improved her ability to manage her emotions and be more resilient. Progress noted per pt report. Benefited from group encouragement, support, and feedback. Will be discharged from [facility] today. Narrative Note: []
--- NOTE | 2022-06-28 15:42 | BH.DS_ITS ---
Discharge Summary - Demographics Date of Admission:: 05/05/22 Discharge Date: 06/28/22 Presenting Problems at Admission:: Pt is a 47 y/o F with hx of Bipolar, REINA, Alcohol Use D/O, and Meth Use D/O. Hx of two previous psychiatric admissions with most recent on 08/17/21 after overdose on 2200mg of Carbamazepine, alcohol, and Meth. Pt has been sober from Meth since 10/31/21. She completed a substance abuse IOP and currently lives at a sober living facility through . She relapsed on alcohol in early April which she reports was triggered by a relationship break-up. At that time she binge drank 30 beers over the course of a weekend. She is currently on probation and there were consequences for her relapse. She is currently linked with AA, peer recovery staff, and a substance abuse therapist through . Endorses poor sleep, increased appetite, low energy, hopelessness, worthlessness, anhedonia, and apathy. Denies active suicidal ideations, plan, or intent. Hx of two previous attempts. Endorses passive thoughts of and survival ambivalence I don't care if I wake up tomorrow... I'm done with life. Protective factors are her son (23). Numerous psychosocial stressors including housing, legal charges, recent break- up, addiction, and finances. Poor focus, concentration, and memory. Panic attacks 2x weekly. Currently on probation for DV charge agaisnt her sister in March 2021. Family hx of Schizophrenia (GMA). Denies HI or psychosis. Discharge Diagnoses:: 1. Bipolar 1 disorder, most recent episode mixed, severe without psychosis. 2. Generalized anxiety disorder. 3. PTSD. 4. Alcohol use disorder with relapse 9 weeks ago but sober since 9 weeks ago. 5. Methamphetamine use disorder in full remission for over 8 months Reason for Discharge:: No longer meets criteria for IOP level of care. Met treatment plan goals. - Treatment Progress During Treatment & Response: Pt struggled with consistent attendance throughout the program. Primary obstacles for consistent attendance were transportation, poor sleep cycle, and work schedule (pt works 3pm-1130pm). When patient was present she was engaged in groups, was attentive, and provided a ppropriate feedback to peers. Was able to learn and implement skills on a fairly consistent basis. Outcome scores since admission indicate an overall 31% reduction in symptoms. She also showed a 43% reduction in the depression domain, 50% reduction in the anger domain, 27% reduction in the anxiety domain, and 50% reduction in suicidal ideation domain. Outcomes also show improvement in sleep and sobriety. Treatment plan objective to identify 2-3 healthy coping strategies which she identified relying on support which includes us, her friends, and peer recovery. Another coping strategy included slowing down and thinking about things. Another goal was to be able to identify cognitive distortions she uses frequently. Patient identified absolute thinking and emotional reasoning as primary distortions. She is able to verbalize how to reframe however admits to struggling to implement skills when stressed, tired, or anxious. Able to identify calming skills for anxiety and the importance of self-care to maintain stability. Issues Still to be Addressed:: Depression, anxiety, and anger mgmt are primary issues that require continued mental health treatment. Also encouraged to continue with AA and SA counseling to prevent relapse. Discharge Recommendations/Instructions:: Appt with psychiatrist Dr. Gentile on 07/05/22. She will also continue with [facility] for SA treatment per probation requirements. Meets bi-monthly with her PO for drug screening as well. Discharge Handout: Complete Discharge Handout with client on aftercare options and continuity of care.
--- NOTE | 2022-06-28 15:43 | BH.MDN_ITS ---
Multi-Disciplinary Note - Note 45-min Individual Time Started:: 10:15 Date: 06/28/22 Purpose of session/treatment goals addressed:: Reviewed DSM outcomes scores, reviewed progress on treatment plan, and finalized aftercare. Eye Contact:: Good Motor Activity:: Appropriate Appearance:: Casual Speech:: Appropriate Mood:: Euthymic Affect:: Full Thoughts:: Linear, Logical, No evidence of hallucinations/delusions noted Staff Interventions:: discharge planning, reviewed DSM-5 Client Response:: Pt presents today in good spirits. She reports that she is proud of herself for finishing the IOP program. We reviewed her outcome scores since her admission which indicate an overall 31% reduction in symptoms. She also showed a 43% reduction in the depression domain, 50% reduction in the anger domain, 27% reduction in the anxiety domain, and 50% reduction in suicidal ideation domain. Outcomes also show improvement in sleep and sobriety. Pt states I feel better. 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 She was able to identify her anger triggers, physiological warning signs of anger, and skills to utilize when interacting with structural engineering project manager this evening. Insight that her anger can escalate if she feels disrespected and she was able to identify the consequences of impulsively reacting to anger triggers. 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 Risks/Concerns:: no concerns Progress Toward Goals/Plan:: Progress noted. Refer to outcome scores above and in discharge summary. Pt self-reports decreased intensity, frequency, and duration of depression and anxiety. Will be discharged from [facility] today. Time Stopped:: 11:00
== END 2022-06-28 12:15 | disposition home or self-care (01) ==
LOC: BHIOP 07:37
PROVIDERS: PCP Internal Medicine; Referring Provider Psychiatry & Neurology Psychiatry; Visit Provider Psychiatry & Neurology Psychiatry
DX: F31.63 Bipolar disorder, current episode mixed, severe, without psychotic features (principal); F41.1 Generalized anxiety disorder; F43.10 Post-traumatic stress disorder, unspecified; Z72.89 Other problems related to lifestyle; F11.99 Opioid use, unspecified with unspecified opioid-induced disorder; Z79.899 Other long term (current) drug therapy
CPT/HCPCS: H2012; S9480; 90834

== ENCOUNTER → 2022-07-03 | Outpatient (CLI) | payer MEDICAID, SELFPAY ==
[2022-07-03 10:04] LABS: Cholesterol 222 mg/dL (200); High Density Lipoprotein 33 mg/dL; Triglycerides 378 mg/dL; Very Low Density Lipoprotein 76 mg/dL (5-40)
[2022-07-03 10:30] LABS: HIV - WCH Non-Reactive (Nonreactive); Hepatitis B Surface Antigen Non-Reactive (Nonreactive); Syphilis Antibodies Non-reactive
[2022-07-04 19:07] LABS: HCV Quant. RNA PCR HCV Not Detected IU/mL (.)
[2022-07-05 12:27] LABS: HSV 1 IgG < 0.91 index (0.00-0.90)
== END | disposition home or self-care (01) ==
PROVIDERS: PCP Internal Medicine; Referring Provider Obstetrics & Gynecology; Visit Provider Obstetrics & Gynecology
DX: Z01.419 Encounter for gynecological examination (general) (routine) without abnormal findings (principal); Z11.3 Encounter for screening for infections with a predominantly sexual mode of transmission
CPT/HCPCS: 36415; 80061; 86695; 86696; 86703; 86780; 87340; 87522

== ENCOUNTER → 2022-07-14 | Outpatient (CLI) | payer MEDICAID, SELFPAY ==
--- NOTE | 2022-07-14 09:05 | BI_ITS ---
MAMMOGRAPHY - BILATERAL DIAGNOSTIC REASON FOR EXAM: Female, 47 years old. Bilateral nipple discharge. History of prior bilateral periareolar surgery. PERTINENT HISTORY: Grandmother with breast cancer. History of prior bilateral excisional breast biopsies. TECHNIQUE: Digital bilateral breast yuniel (3D mammographic acquisition) in the CC and MLO projections. 2-D mediolateral oblique (MLO) and craniocaudad (CC) views of both breasts were obtained. CAD: Full Field Digital Mammography with Computer Added Detection was performed. COMPARISON: Comparison is made with prior study 09/06/2021. FINDINGS: Breast Composition: There are scattered areas of fibroglandular density. Since prior study, the patient underwent bilateral retroareolar surgery with postoperative scarring and skin thickening more prominent on the left side. Stable small benign-appearing bilateral axillary lymph nodes. No other significant abnormalities are identified. BI/DIAG MAMM W/CAD, BILAT IMPRESSION: Status post bilateral retroareolar surgeries with postoperative changes. Correlation with ultrasound is recommended. ASSESSMENT CATEGORY: BIRADS Category 0: Incomplete. Need additional imaging evaluation. A letter regarding these results will be sent to the patient by the facility within 30 days. Approximately 10% of breast cancers are not detected by mammography. A normal mammogram should not delay biopsy of a clinically suspicious abnormality. Electronically Signed: Gus Wade MD at 10:13 EDT ,
--- NOTE | 2022-07-14 09:55 | US_ITS ---
STUDY: ULTRASOUND BREAST - LEFT REASON FOR EXAM: Female, 47 years old. Left nipple discharge. Status post recent bilateral perihilar alveolar surgical drainage. TECHNIQUE: Axial and longitudinal images of the LEFT breast were performed with a high resolution ultrasound transducer. # OF IMAGES: 39 COMPARISON: Comparison is made with prior mammogram done earlier today. FINDINGS: LEFT Breast: Along the medial aspect of the retroareolar region of the breast, there is evidence of a linear tract connecting the skin surface to the underlying breast tissue. This tract measures 1.5 cm x 1 cm x 1 cm. This may represent a focal area of a postoperative fluid collection. US/Breast Limited Unilateral IMPRESSION: 1.5 cm x 1 cm x 1 cm hypoechoic tract seen connecting the overlying skin from the surgical site to the underlying breast tissue. This may be the site of drainage. ASSESSMENT CATEGORY: BIRADS Category 2: Benign. A letter regarding these results will be sent to the patient by the facility within 30 days. Electronically Signed: Gus Wade MD at 9:42 EDT ,
== END | disposition home or self-care (01) ==
LOC: OPBI 09:03
PROVIDERS: PCP Internal Medicine; Referring Provider Internal Medicine; Visit Provider Internal Medicine
DX: N64.52 Nipple discharge (principal)
CPT/HCPCS: 77062; 76642; 77066; G0279

== ENCOUNTER 2022-07-27 16:24 | Emergency (ER) | payer MEDICAID, SELFPAY ==
[2022-07-27 16:26] VITALS: BP 151/101; PULSE 88; RESP 14; TEMP 36.7; O2SAT 98; BMI 32.3
[2022-07-27 16:28] VITALS: BP 151/101; PULSE 88; RESP 14; TEMP 36.7; O2SAT 98
--- NOTE | 2022-07-27 17:22 | EX.ED.DYSGE1 ---
HPI History of Present Illness Chief Complaint: Wound Narrative Narrative: 47-year-old female presenting with breast abscess on the left. She states she has a longstanding history of this. She used to see Dr. Parikh and later saw Dr. Watson. She states she currently supposed to see Dr. Chu at [facility]. She can go see him because she does not have a ride. She was able to take a cab here today. She states that if this current abscess has been draining for months. She has been on antibiotics. She has had surgical incision and drainage versus cystectomy in this region. She had multiple mammograms and breast ultrasounds. She states she has been currently tired/fatigued and tested positive at home for COVID. She is not having any shortness of breath or significant symptoms from this. [facility] Medical History Alcohol use disorder Bipolar 1 disorder, mixed Carbamazepine overdose of undetermined intent Chest pain Depression Dizziness Generalized anxiety disorder Intermittent palpitations Lung nodule Methamphetamine use disorder, moderate Moderate dysplasia of cervix (DARRELL II) Nicotine abuse Panic attacks PTSD (post-traumatic stress disorder) Shortness of breath Suicide attempt Home Medications omeprazole 40 mg capsule,delayed release 40 mg PO DAILY 03/03/18 [History Last Taken 12/01/19] multivitamin,[id number] (Complete Multivitamin tablet) 1 tab PO DAILY 07/02/19 [History Last Taken Unknown] aripiprazole 20 mg tablet 20 mg PO DAILY 10/01/19 [History Last Taken 12/01/19] oxybutynin chloride 5 mg tablet,extended release 24 hr 5 mg PO DAILY 08/17/21 [History Last Taken Unknown] hydroxyzine HCl 50 mg tablet 50 mg PO BID PRN PRN Anxiety 05/10/22 [History Last Taken Unknown] quetiapine 50 mg tablet (Seroquel) 50 mg PO QHS 30 days #30 tabs 05/24/22 [Rx Last Taken Unknown] clindamycin HCl 150 mg capsule 450 mg PO TID 10 days #90 caps 07/27/22 [Rx Last Taken Unknown] Allergy/AdvReac Type Severity Reaction Status Date / Time fenofibrate Allergy Severe Hives Verified 07/27/22 16:26 cephalexin Allergy Hives Verified 07/27/22 16:26 sertraline HCl [From Zoloft] Allergy Hives Verified 07/27/22 16:26 Family History Father Hypertension Colon cancer Mother Lung cancer Grandmother Breast cancer Surgical History H/O LEEP History of cholecystectomy History of left breast biopsy (~08/2019) Social History Smoking Status: Heavy Smoker (>10/day) alcohol intake: current alcohol intake frequency: a few times a week substance use type: amphetamines ROS ROS ED ROS Narrative Generalized fatigue Constitutional Constitutional ED: Denies chills or fever(s) Eyes Eyes: Denies change in vision or diplopia ENT ENT ED: Denies rhinorrhea or sore throat Cardiovascular Cardiovascular: Denies chest pain or palpitations Respiratory/Chest Respiratory/Chest: Denies cough or dyspnea Gastrointestinal Gastrointestinal: Denies abdominal pain or constipation Genitourinary Genitourinary ED: Denies dysuria or hematuria Musculoskeletal Musculoskeletal: Denies arthralgias Integumentary Reports abscess and rash Neurologic Neurologic: Denies headache(s) Psychiatric Psychiatric: Denies anxiety or depression EXAM Physical Exam Const Vital Signs: 07/27/22 16:26 07/27/22 16:28 Temperature 98.1 F 98.1 F Temperature Source Temporal Temporal Pulse Rate 88 88 Respiratory Rate 14 14 Blood Pressure 151/101 H 151/101 H Blood Pressure Mean 117 117 Pulse Ox 98 98 Oxygen Delivery Method Room Air Room Air Positive well nourished HEENT Reports moist mucous membranes Negative for trauma Eyes PERRL and EOMs intact bilaterally Chest Wall Chest Narrative: Left breast has a 1 cm circular open area without drainage. There is a small area of circular erythema medial to this. No fluctuance. No lymph nodes palpated. The right breast has surgical scars but appears free from infection and it is nontender. There is no drainage. Resp normal respiratory effort Cardio regular rate and regular rhythm GI normal to inspection, nondistended, normoactive bowel sounds Neuro oriented x3 and CN's II-XII intact bilaterally Sensorium / Orientation: alert Psych mental status grossly normal Skin Skin Narrative: As described above MDM MDM MDM Narrative Medical decision making narrative: 47 female presenting with left breast abscess. She states this has been a problem for months. She is previously been on antibiotics for this and she does not know which works best for her. She states he is allergic to Keflex. She currently has COVID-19 as well but she is not have any respiratory symptoms. She is not requiring oxygen. On examination she has a 1 cm open area from previous surgical excision. There is no active drainage. There is a small area of erythema medial to this and I suspect early cellulitis. Patient counseled on sitz bath's with this. I will start her on clindamycin is what she is had in the past. Return precautions were discussed. I recommended strongly that she follow-up with Dr. Chu. Impression: 1. Left breast abscess 2. Left breast cellular Lab Data Attestation: I reviewed the patient's lab results. Discharge Plan Triage Chief Complaint: Wound ED Provider: Sterling Sargent Dx/Rx/DC Orders Instructions: ED Abscess Antibiotic Treatment Only Prescriptions: New clindamycin HCl 150 mg capsule 450 mg PO TID 10 Days Qty: 90 0RF No Action Complete Multivitamin Tablet 1 tab PO DAILY omeprazole 40 capsule,delayed release(DR/EC) 40 mg PO DAILY Label Comments: aripiprazole 20 MG tablet 20 mg PO DAILY oxybutynin chloride 5 mg tablet extended release 24hr 5 mg PO DAILY hydroxyzine HCl 50 mg Tablet 50 mg PO BID PRN PRN (Reason: Anxiety) quetiapine [Seroquel] 50 mg tablet 50 mg PO QHS 30 Days Qty: 30 0RF Primary Care Provider: Isatu Fishman Referrals: Isatu Fishman MD [Primary Care Provider] - Disposition Disposition: Home, Self Care
[2022-07-27] MEDS: Clindamycin HCl 150 MG Capsule 450 MG PO (17:40)
== END 2022-07-27 17:44 | disposition home or self-care (01) ==
PROVIDERS: Emergency Provider Student in an Organized Health Care Education/Training Program; PCP Internal Medicine; Visit Provider Student in an Organized Health Care Education/Training Program
DX: N61.1 Abscess of the breast and nipple (principal); F31.9 Bipolar disorder, unspecified; F17.200 Nicotine dependence, unspecified, uncomplicated; U07.1 COVID-19
CPT/HCPCS: 99283

== ENCOUNTER 2023-01-13 09:38 | Emergency (ER) | payer MEDICAID, SELFPAY ==
[2023-01-13 09:39] VITALS: BP 180/119; PULSE 106; RESP 18; TEMP 36.6; O2SAT 99; BMI 34.6
--- NOTE | 2023-01-13 10:12 | EX.ED.VIS.UR ---
HPI HPI - URI History of Present Illness Chief Complaint: Ear Problem Informant: patient Narrative Narrative: Waking increased pain right ear at 8 AM. Mild sinus congestion recently. No fevers. No cough. Allergy to Keflex however is tolerated penicillin. Muffled sounds in both ears. Prior similar symptoms: No ROS ROS ED Constitutional Constitutional ED: Denies chills, fever(s) or sweats Eyes Eyes: Denies change in vision ENT ENT ED: Reports ear pain; Denies dysphagia or sore throat Cardiovascular Cardiovascular: Denies chest pain, leg edema, palpitations or racing heartbeat Respiratory/Chest Respiratory/Chest: Denies cough, dyspnea or dyspnea on exertion Gastrointestinal Gastrointestinal: Denies abdominal pain, diarrhea, nausea or vomiting Genitourinary Genitourinary ED: Denies dysuria, hematuria or urinary frequency Musculoskeletal Musculoskeletal: Denies back pain, extremity pain or neck pain Integumentary Denies rash or wounds Neurologic Neurologic: Denies headache(s), paresthesias or weakness PFSH PFSH Medical History Alcohol use disorder Bipolar 1 disorder, mixed Carbamazepine overdose of undetermined intent Chest pain Depression Dizziness Generalized anxiety disorder Intermittent palpitations Lung nodule Methamphetamine use disorder, moderate Moderate dysplasia of cervix (DARRELL II) Nicotine abuse Panic attacks PTSD (post-traumatic stress disorder) Shortness of breath Suicide attempt Home Medications omeprazole 40 mg capsule,delayed release 40 mg PO DAILY 03/03/18 [History Last Taken 12/01/19] multivitamin,[id number] (Complete Multivitamin tablet) 1 tab PO DAILY 07/02/19 [History Last Taken Unknown] aripiprazole 20 mg tablet 20 mg PO DAILY 10/01/19 [History Last Taken 12/01/19] oxybutynin chloride 5 mg tablet,extended release 24 hr 5 mg PO DAILY 08/17/21 [History Last Taken Unknown] hydroxyzine HCl 50 mg tablet 50 mg PO BID PRN PRN Anxiety 05/10/22 [History Last Taken Unknown] quetiapine 50 mg tablet (Seroquel) 50 mg PO QHS 30 days #30 tabs 05/24/22 [Rx Last Taken Unknown] clindamycin HCl 150 mg capsule 450 mg PO TID 10 days #90 caps 07/27/22 [Rx Last Taken Unknown] amoxicillin 875 mg tablet 875 mg PO BID #14 tabs 01/13/23 [Rx Last Taken Unknown] Allergy/AdvReac Type Severity Reaction Status Date / Time fenofibrate Allergy Severe Hives Verified 01/13/23 09:41 cephalexin Allergy Hives Verified 01/13/23 09:41 sertraline HCl [From Zoloft] Allergy Hives Verified 01/13/23 09:41 Family History Father Hypertension Colon cancer Mother Lung cancer Grandmother Breast cancer Surgical History H/O LEEP History of cholecystectomy History of left breast biopsy (~08/2019) Social History Smoking Status: Heavy Smoker (>10/day) alcohol intake: current alcohol intake frequency: a few times a week substance use type: amphetamines EXAM Physical Exam Const Vital Signs: 01/13/23 09:39 Temperature 97.9 F Temperature Source Temporal Pulse Rate 106 H Respiratory Rate 18 Blood Pressure 180/119 H Blood Pressure Mean 139 Pulse Ox 99 Oxygen Delivery Method Room Air Positive well nourished and well developed General Appearance ED: well developed and NAD HEENT Reports moist mucous membranes HEENT Narrative: Bilateral TMs are bulging and opacified intact. External canals are not narrowed, no tragal tenderness. Posterior pharyngeal patent, no erythema or exudates. No mastoid tenderness. normocephalic and atraumatic Eyes PERRL, EOMs intact bilaterally and conjunctivae normal General Eye ED: Yes normal appearance of both eyes Neck no lymphadenopathy and supple General: Negative for tenderness Chest Wall Chest: Negative for tenderness Resp normal respiratory effort and normal air movement Effort and Inspection: symmetric chest movement; Negative for respiratory distress Cardio regular rate, regular rhythm and no murmurs Peripheral Pulses: pulses 2+ throughout GI normal to inspection, nondistended, normoactive bowel sounds and non-tender Palpation: Negative for guarding or rebound tenderness present Back/Spine no CVA tenderness and no thoracic nor lumbar tenderness Extremity normal to inspection General Extremety ED: Negative for edema or tenderness General Extremity: Negative for edema Neuro oriented x3 and no sensory deficits noted Sensorium / Orientation: awake and alert Skin no rashes or lesions noted and no wounds MDM MDM MDM Narrative Medical decision making narrative: Interventions / MDM: Differential diagnosis: Otitis media, otalgia Diagnosis considered but do not suspect: Otitis externa, however no narrowing of the canal or no tragal tenderness. Mastoiditis however no mastoid tenderness bilaterally. My EKG interpretation: N/A Imaging independently reviewed and interpreted by myself: N/A External documents reviewed: N/A Test considered but not ordered:N/A ED course: Patient nontoxic afebrile elevated blood pressure on arrival asymptomatic from this. On exam she has bilateral otitis media there is no mastoid tenderness for concerns for mastoiditis. Her TMs are intact. Started on amoxicillin and Tylenol was given. Discussed possibility of rupturing from TM from pressure, she understands this. Prescription sent to her local pharmacy. Return precautions, all questions answered. Re-evaluation: stable Disposition discussed with patient/family/significant other: Case discussed with consulting clinician: N/A Discharge Plan Triage Chief Complaint: Ear Problem ED Provider: Joseph Son Dx/Rx/DC Orders Clinical Impression: Bilateral acute otitis media, Acute otalgia, Elevated blood pressure reading Instructions: ED Otitis Media Antibiotic ... Prescriptions: New amoxicillin 875 mg tablet 875 mg PO BID Qty: 14 0RF No Action Complete Multivitamin Tablet 1 tab PO DAILY omeprazole 40 capsule,delayed release(DR/EC) 40 mg PO DAILY Label Comments: aripiprazole 20 MG tablet 20 mg PO DAILY oxybutynin chloride 5 mg tablet extended release 24hr 5 mg PO DAILY hydroxyzine HCl 50 mg Tablet 50 mg PO BID PRN PRN (Reason: Anxiety) quetiapine [Seroquel] 50 mg tablet 50 mg PO QHS 30 Days Qty: 30 0RF clindamycin HCl 150 mg capsule 450 mg PO TID 10 Days Qty: 90 0RF Primary Care Provider: Isatu Fishman Referrals: Isatu Fishman MD [Primary Care Provider] - 1 Week Activity Restrictions/Additional Instructions: Take and finish antibiotic as prescribed. Your tympanic members are intact. Use Tylenol every 6 hours as needed. Your blood pressure is elevated, rechecked by your doctor. Disposition Disposition: Home, Self Care Discharge Date/Time: 01/13/23 10:21
[2023-01-13] MEDS: Acetaminophen 500 MG Tablet 1000 MG PO (10:16)
[2023-01-13] MEDS: AMOXICILLIN 500 MG CAPSULE 1000 MG PO (10:16)
== END 2023-01-13 10:21 | disposition home or self-care (01) ==
PROVIDERS: Emergency Provider Emergency Medicine; PCP Internal Medicine; Visit Provider Emergency Medicine
DX: H66.93 Otitis media, unspecified, bilateral (principal); F31.9 Bipolar disorder, unspecified; H70.90 Unspecified mastoiditis, unspecified ear; F17.200 Nicotine dependence, unspecified, uncomplicated; R03.0 Elevated blood-pressure reading, without diagnosis of hypertension
CPT/HCPCS: 99283

== ENCOUNTER 2023-01-15 08:39 | Emergency (ER) | payer MEDICAID, SELFPAY ==
[2023-01-15 08:40] VITALS: BP 159/99; PULSE 114; RESP 18; TEMP 36.3; O2SAT 96; BMI 34.6
--- NOTE | 2023-01-15 09:02 | EX.ED.VIS.UR ---
HPI HPI - URI History of Present Illness Chief Complaint: Ear Problem Onset/Context/Timing Onset: Days (3) Context: Gradual Onset Timing: Continuous Quality: Pressure, burning Location: Bilateral ears, right worse than left Worsened by: - (Nothing) Relieved by: - (Nothing) Associated Symptoms Associated Symptoms: Positive for Headache, Myalgias, Nausea and Productive Cough; Negative for Nasal Congestion, Sinus Pressure, Vomiting, Diarrhea, Shortness of Breath, Chest Pain, Nonproductive cough or Hemoptysis Narrative Narrative: Patient presents with right ear pain that has been getting worse over the last 3 days. Patient was recently started on amoxicillin for this. Patient states her pain feels like pressure and burning. Patient describes it as constant. Patient states it is gradually getting worse. Patient states nothing makes it worse and nothing makes it better. Patient does also admit to some headaches over the frontal area. Patient admits to some nausea but denies any vomiting. Patient admits to a cough with some clear sputum. Patient denies any fevers or chills. ROS ROS ED Constitutional Constitutional ED: Denies chills or fever(s) Eyes Eyes: Reports blurry vision; Denies change in vision ENT ENT ED: Reports ear pain bilateral (Right worse than left); Denies rhinorrhea or sore throat Cardiovascular Cardiovascular: Denies chest pain or palpitations Respiratory/Chest Respiratory/Chest: Reports cough; Denies dyspnea Gastrointestinal Gastrointestinal: Reports nausea; Denies vomiting Genitourinary Genitourinary ED: Denies dysuria or hematuria Musculoskeletal Musculoskeletal: Reports back pain; Denies neck pain Integumentary Denies abscess or rash Neurologic Neurologic: Reports headache(s); Denies weakness Allergic/Immunologic Allergic/Immunologic ED: Denies mouth swelling or urticaria [facility] Medical History Alcohol use disorder Bipolar 1 disorder, mixed Carbamazepine overdose of undetermined intent Chest pain Depression Dizziness Generalized anxiety disorder Intermittent palpitations Lung nodule Methamphetamine use disorder, moderate Moderate dysplasia of cervix (DARRELL II) Nicotine abuse Panic attacks PTSD (post-traumatic stress disorder) Shortness of breath Suicide attempt Home Medications omeprazole 40 mg capsule,delayed release 40 mg PO DAILY 03/03/18 [History Last Taken 12/01/19] multivitamin,[id number] (Complete Multivitamin tablet) 1 tab PO DAILY 07/02/19 [History Last Taken Unknown] aripiprazole 20 mg tablet 20 mg PO DAILY 10/01/19 [History Last Taken 12/01/19] oxybutynin chloride 5 mg tablet,extended release 24 hr 5 mg PO DAILY 08/17/21 [History Last Taken Unknown] hydroxyzine HCl 50 mg tablet 50 mg PO BID PRN PRN Anxiety 05/10/22 [History Last Taken Unknown] quetiapine 50 mg tablet (Seroquel) 50 mg PO QHS 30 days #30 tabs 05/24/22 [Rx Last Taken Unknown] clindamycin HCl 150 mg capsule 450 mg PO TID 10 days #90 caps 07/27/22 [Rx Last Taken Unknown] amoxicillin 875 mg-potassium clavulanate 125 mg tablet 875 mg PO Q12H #20 TABLETS 01/15/23 [Rx Last Taken Unknown] fluticasone propionate 50 mcg/actuation nasal spray,suspension (Flonase Allergy Relief) 1 spray intranasal DAILY #16 grams 01/15/23 [Rx Last Taken Unknown] Allergy/AdvReac Type Severity Reaction Status Date / Time fenofibrate Allergy Severe Hives Verified 01/13/23 09:41 cephalexin Allergy Hives Verified 01/13/23 09:41 sertraline HCl [From Zoloft] Allergy Hives Verified 01/13/23 09:41 Family History Father Hypertension Colon cancer Mother Lung cancer Grandmother Breast cancer Surgical History H/O LEEP History of cholecystectomy History of left breast biopsy (~08/2019) Social History Smoking Status: Heavy Smoker (>10/day) alcohol intake: current alcohol intake frequency: a few times a week substance use type: amphetamines EXAM Physical Exam Const Vital Signs: 01/15/23 08:40 Temperature 97.4 F L Temperature Source Temporal Pulse Rate 114 H Respiratory Rate 18 Blood Pressure 159/99 H Blood Pressure Mean 119 Pulse Ox 96 Oxygen Delivery Method Room Air Positive well nourished and well developed General Appearance ED: well developed and NAD HEENT Reports moist mucous membranes Neck supple and no JVD Resp normal respiratory effort and clear to auscultation bilaterally Cardio regular rate, regular rhythm and no murmurs GI normal to inspection, nondistended, normoactive bowel sounds and non-tender Palpation: soft Extremity normal to inspection General Extremety ED: Negative for edema or tenderness General Extremity: Negative for edema Neuro oriented x3, CN's II-XII intact bilaterally and no sensory deficits noted Sensorium / Orientation: alert Motor Exam: strength 5/5 throughout Psych mental status grossly normal Skin no rashes or lesions noted MDM MDM MDM Narrative Medical decision making narrative: Differential diagnosis includes otitis media and sinusitis. There is no tenderness over the mastoids consistent with mastoiditis. There is no pain with manipulation of the external ear and the external auditory canal is not swollen and I do not feel otitis externa is in the differential. Treatment and Re-Evaluation Narrative: Patient was instructed to stop the amoxicillin. Patient was given a prescription for Augmentin. Patient was also given a prescription for Flonase. Patient was instructed to follow-up with her primary care physician in 3 to 5 days for reevaluation. Patient was requesting that something be inserted into her ear to relieve the pressure and pop her eardrum. Patient was advised that this would not be able to be performed in the emergency department. Patient was advised that this would require ENT surgery to do this. Patient understands this and is agreeable with the plan. All questions were answered. Discharge Plan Triage Chief Complaint: Ear Problem ED Provider: Moi Landeros Dx/Rx/DC Orders Clinical Impression: Acute right otitis media, Nicotine abuse Instructions: ED Otitis Media Antibiotic ... Prescriptions: New amoxicillin-pot clavulanate [amoxicillin-pot clavulanate] 875-125 mg tablet 875 mg PO Q12H Qty: 20 0RF fluticasone propionate [Flonase Allergy Relief] 50 mcg/actuation spray,suspension 1 spray intranasal DAILY Qty: 16 0RF Rx Instructions: administer into each nostril Discontinued amoxicillin 875 mg tablet 875 mg PO BID Qty: 14 0RF No Action Complete Multivitamin Tablet 1 tab PO DAILY omeprazole 40 capsule,delayed release(DR/EC) 40 mg PO DAILY Label Comments: aripiprazole 20 MG tablet 20 mg PO DAILY oxybutynin chloride 5 mg tablet extended release 24hr 5 mg PO DAILY hydroxyzine HCl 50 mg Tablet 50 mg PO BID PRN PRN (Reason: Anxiety) quetiapine [Seroquel] 50 mg tablet 50 mg PO QHS 30 Days Qty: 30 0RF clindamycin HCl 150 mg capsule 450 mg PO TID 10 Days Qty: 90 0RF Primary Care Provider: Isatu Fishman Referrals: Isatu Fishman MD [Primary Care Provider] - 3-5 Days Disposition Disposition: Home, Self Care
== END 2023-01-15 09:31 | disposition home or self-care (01) ==
PROVIDERS: Emergency Provider Emergency Medicine; PCP Internal Medicine; Visit Provider Emergency Medicine
DX: H66.91 Otitis media, unspecified, right ear (principal); M79.10 Myalgia, unspecified site; Z72.0 Tobacco use; R51.9 Headache, unspecified
CPT/HCPCS: 99282

== ENCOUNTER 2023-02-05 15:16 | Emergency (ER) | payer MEDICAID, SELFPAY ==
[2023-02-05 15:18] VITALS: BP 153/90; PULSE 121; RESP 14; TEMP 37.1; O2SAT 96; BMI 34.4
--- NOTE | 2023-02-05 17:06 | US_ITS ---
STUDY: ULTRASOUND BREAST - RIGHT REASON FOR EXAM: Female, 48 years old. Questionable abscess or infection in the retroareolar areas of both breasts retroareolar pain and discharge. TECHNIQUE: Axial and longitudinal images of the RIGHT breast were performed with a high resolution ultrasound transducer. # OF IMAGES: 64 COMPARISON: None. FINDINGS: RIGHT Breast: Mild, sonographic imaging of the retroareolar right breast demonstrates no evidence of mass or fluid collection. Minimally distended ducts. Otherwise normal breast tissue. IMPRESSION: Normal ASSESSMENT CATEGORY: BIRADS Category 1: Negative. A letter regarding these results will be sent to the patient by the facility within 30 days. Electronically Signed: Yordy Breen DO at 21:01 EDT , STUDY: ULTRASOUND BREAST - LEFT REASON FOR EXAM: Female, 48 years old. Bilateral retroareolar breast pain. Discharge. Question abscess. TECHNIQUE: Axial and longitudinal images of the LEFT breast were performed with a high resolution ultrasound transducer. # OF IMAGES: 64 COMPARISON: None. FINDINGS: LEFT Breast: Ultrasound imaging of the retroareolar left breast demonstrates a 1 x 1 x 0.8 cm area of hypoechogenicity in the subcutaneous breast at the area of previous biopsy. There is minimal vascularity. This appears essentially unchanged from an ultrasound of July 14, 2022. US/Breast Limited Unilateral IMPRESSION: Stable findings. ASSESSMENT CATEGORY: BIRADS Category 2: Benign. A letter regarding these results will be sent to the patient by the facility within 30 days. Electronically Signed: Yordy Breen DO at 21:04 EDT ,
--- NOTE | 2023-02-05 17:08 | EDS_ITS ---
HPI History of Present Illness Chief Complaint: Weakness Narrative Narrative: Patient presents with bilateral breast pain, fever up to 100, and a rash on the left axilla and upper arm. No cough or congestion or dyspnea no abdominal pain no dysuria. She was started on antibiotics per PCP. She has been on amoxicillin for about a week and she still has this. [facility] Medical History (Updated 02/05/23 @ 21:[address] Edgard Gerard MD) Alcohol use disorder Bipolar 1 disorder, mixed Carbamazepine overdose of undetermined intent Chest pain Depression Dizziness Generalized anxiety disorder Intermittent palpitations Lung nodule Methamphetamine use disorder, moderate Moderate dysplasia of cervix (DARRELL II) Nicotine abuse Panic attacks PTSD (post-traumatic stress disorder) Shortness of breath Substance abuse Suicide attempt Home Medications omeprazole 40 mg capsule,delayed release 40 mg PO DAILY 03/03/18 [History Last Taken 12/01/19] multivitamin,[id number] (Complete Multivitamin tablet) 1 tab PO DAILY 07/02/19 [History Last Taken Unknown] aripiprazole 20 mg tablet 20 mg PO DAILY 10/01/19 [History Last Taken 12/01/19] oxybutynin chloride 5 mg tablet,extended release 24 hr 5 mg PO DAILY 08/17/21 [History Last Taken Unknown] hydroxyzine HCl 50 mg tablet 50 mg PO BID PRN PRN Anxiety 05/10/22 [History Last Taken Unknown] quetiapine 50 mg tablet (Seroquel) 50 mg PO QHS 30 days #30 tabs 05/24/22 [Rx Last Taken Unknown] clindamycin HCl 150 mg capsule 450 mg PO TID 10 days #90 caps 07/27/22 [Rx Last Taken Unknown] amoxicillin 875 mg-potassium clavulanate 125 mg tablet 875 mg PO Q12H #20 TABLETS 01/15/23 [Rx Last Taken Unknown] fluticasone propionate 50 mcg/actuation nasal spray,suspension (Flonase Allergy Relief) 1 spray intranasal DAILY #16 grams 01/15/23 [Rx Last Taken Unknown] Allergy/AdvReac Type Severity Reaction Status Date / Time fenofibrate Allergy Severe Hives Verified 02/05/23 15:18 cephalexin Allergy Hives Verified 02/05/23 15:18 sertraline HCl [From Zoloft] Allergy Hives Verified 02/05/23 15:18 Family History Father Hypertension Colon cancer Mother Lung cancer Grandmother Breast cancer Surgical History H/O LEEP History of cholecystectomy History of left breast biopsy (~08/2019) Social History Smoking Status: Heavy Smoker (>10/day) alcohol intake: current alcohol intake frequency: a few times a week substance use type: amphetamines ROS ROS ED ROS Narrative Past medical history: Reviewed Medications: Reviewed Social history: Noncontributory Review of systems: General: Fever as in HPI ENT: No upper airway congestion, normal voice Neck: No neck pain Cardiovascular: No chest pain Chest wall: Bilateral breast pain Respiratory: No shortness of breath or cough Gastrointestinal: No abdominal pain, nausea vomiting or diarrhea Genitourinary: No dysuria Musculoskeletal: Denies myalgias no difficulty with ambulation Skin: As in HPI EXAM Physical Exam Narrative Exam Narrative: Physical exam General: Patient appears comfortable in bed Head: Normocephalic, Atraumatic Eyes: Conjunctiva not pale ENT: Moist mucous membranes Neck: Supple, Nontender, No lymphadenopathy Cardiovascular: Regular rate, Regular rhythm Breast exam: Patient has prior incision britt from prior cysts and/or abscesses, it is tender slight discharge of her left nipple I cannot appreciate any abscess. Respiratory: No distress, CTA bilaterally Abdomen: Soft, Nontender, Nondistended Back: Nontender, Normal Inspection. Negative for: CVA tenderness Extremities: No lymphadenopathy but she has what looks like very very slight erythema under her axilla and upper arm no lymphangitic streaking. It is not beefy red and it is not hot. This could be early cellulitis. Skin: As above Const Vital Signs: 02/05/23 15:18 02/05/23 18:00 Temperature 98.7 F Temperature Source Temporal Pulse Rate 121 H Respiratory Rate 14 Respiratory Effort Normal Respiratory Pattern Normal Blood Pressure 153/90 H Blood Pressure Mean 111 Pulse Ox 96 Oxygen Delivery Method Room Air MDM MDM MDM Narrative Medical decision making narrative: He was approached by the nurse that the patient went to leave and wanted her IV out. I want to talk to her right away but apparently she had gone and her IV was out. I did not get a chance to sign her out against AMA she simply eloped. My worry is that she has lactic acidosis she could have early cellulitis even though she is on amoxicillin she may need a different antibiotic she may have needed admission. I still do not have the ultrasound report although I talked to the gameroom technician and there is no large abscess to be drained. Lab Data Labs: Laboratory Results - last 24 hr 02/05/23 02/05/23 02/05/23 17:50 17:50 17:50 WBC 10.9 RBC 4.89 Hgb 14.6 Hct 42.9 MCV 87.7 MCH 29.9 MCHC 34.0 RDW Std Deviation 42.0 RDW Coeff of Piero 13.1 Plt Count 295 MPV 10.0 Immature Gran % (Auto) 0.400 Neut % (Auto) 58.4 Lymph % (Auto) 32.9 [place] % (Auto) 5.7 Eos % (Auto) 1.8 Baso % (Auto) 0.8 Absolute Neuts (auto) 6.4 Absolute Lymphs (auto) 3.59 Nucleated RBC % 0 Sodium 132 L Potassium 3.2 L Chloride 97 L Carbon Dioxide 29.0 Anion Gap 6 BUN 12 Creatinine 1.06 H Estim Creat Clear Calc 57.77 Est GFR (MDRD) Af Amer 71 Est GFR (MDRD) Non-Af 59 L BUN/Creatinine Ratio 11.3 Glucose 132 H Lactic Acid 3.0 H* Calcium 9.0 Total Bilirubin 0.80 AST 23 ALT 27 Alkaline Phosphatase 105 Total Protein 7.3 Albumin 3.4 Globulin 3.9 Albumin/Globulin Ratio 0.9 Discharge Plan Triage Chief Complaint: Weakness ED Provider: Edgard Gerard Dx/Rx/DC Orders Clinical Impression: Cellulitis, Acute breast pain, Eloped from emergency department Prescriptions: No Action Complete Multivitamin Tablet 1 tab PO DAILY omeprazole 40 capsule,delayed release(DR/EC) 40 mg PO DAILY Label Comments: aripiprazole 20 MG tablet 20 mg PO DAILY oxybutynin chloride 5 mg tablet extended release 24hr 5 mg PO DAILY hydroxyzine HCl 50 mg Tablet 50 mg PO BID PRN PRN (Reason: Anxiety) quetiapine [Seroquel] 50 mg tablet 50 mg PO QHS 30 Days Qty: 30 0RF clindamycin HCl 150 mg capsule 450 mg PO TID 10 Days Qty: 90 0RF amoxicillin-pot clavulanate [amoxicillin-pot clavulanate] 875-125 mg tablet 875 mg PO Q12H Qty: 20 0RF fluticasone propionate [Flonase Allergy Relief] 50 mcg/actuation spray,suspension 1 spray intranasal DAILY Qty: 16 0RF Rx Instructions: administer into each nostril Primary Care Provider: Isatu Fishman Referrals: Isatu Fishman MD [Primary Care Provider] - Disposition Disposition: Elopement Discharge Date/Time: 02/05/23 20:49
--- NOTE | 2023-02-05 17:58 | ED.RN ---
pt with slurred speech and admits to using alcohol and meth though i can take it or leave it came out of bathroom and came out to where nurse charting and stated, i need something quick or this may spread to my heart pt with old pock britt to b/l breast and squeezes them for nurse to show that drng comes out also worried that lt groin very red and is worse than breast but no redness obs at all or any open areas there
[2023-02-05 18:05] LABS: Absolute Lymphocyte Count 3.59 X10^3/uL (0.83-4.51); Absolute Neutrophil Count 6.4 X10^3/uL (2.0-7.7); Basophil# 0.09 X10^3/uL; Basophil% 0.8 % (0-1); Eosinophils% 1.8 % (0-5); Hematocrit 42.9 % (37-47); Hemoglobin 14.6 g/dL (12.0-15.0); Lymphocyte # 3.59 X10^3/ul (0.83-4.51); Lymphocyte % 32.9 % (19-41); Mean Corpuscular Hgb 29.9 pg (27.0-32.0); Mean Corpuscular Volume 87.7 fL (81-99); Monocyte# 0.62 X10^3/uL; Monocyte% 5.7 % (0-10); NRBC Flagged by Analyzer 0 % (0-5); Neutrophil # 6.37 X10^3/uL (2.7-7.7); Neutrophil % 58.4 % (47-70); Platelet Count 295 K/mm3 (150-450); RBC Distribution Width CV 13.1 % (11.6-14.6); Red Blood Count 4.89 M/mm3 (4.2-5.4); White Blood Count 10.9 K/mm3 (4.4-11.0)
[2023-02-05 18:25] LABS: ALB/GLOB Ratio 0.9 RATIO (0.9-2.4); AST(SGOT) 23 U/L (15-37); Alanine Aminotransfer ALT/SGPT 27 U/L (13-56); Albumin, Serum 3.4 g/dL (3.2-5.0); Alkaline Phosphatase 105 U/L (45-117); Anion Gap 6 (5-15); BUN 12 mg/dL (7-18); BUN/Creat Ratio 11.3 RATIO (10-20); Chloride 97 mmol/L (98-107); Creatinine, Serum 1.06 mg/dL (0.55-1.02); EST Glomerular Filtration Rate 59 mL/min (>60); Est Glom Filt Rate - Afr Amer 71 mL/min (>60); Estimated Creatinine Clearance 57.77 ml/min; Globulin 3.9 g/dL (2.2-4.2); Glucose 132 mg/dL (74-106); Potassium 3.2 mmol/L (3.5-5.1); Protein, Total 7.3 g/dL (6.4-8.2); Sodium Level 132 mmol/L (136-145)
[2023-02-05] MEDS: 0.9% Normal Saline 1,000 ML 999 ML IV (19:31)
--- NOTE | 2023-02-05 20:57 | ED.RN ---
PT REFUSED TO STAY AND LEFT AMA WITHOUT SIGNING PAPERS.
[2023-02-05 21:56] LABS: Reflex Lactate? Y
== END 2023-02-05 20:49 | disposition left against medical advice (07) ==
LOC: ED 17:23
PROVIDERS: Emergency Provider Emergency Medicine; PCP Internal Medicine; Visit Provider Emergency Medicine
DX: R53.1 Weakness (principal); F31.9 Bipolar disorder, unspecified; N64.4 Mastodynia; L03.90 Cellulitis, unspecified; Z79.899 Other long term (current) drug therapy; F41.9 Anxiety disorder, unspecified; F17.200 Nicotine dependence, unspecified, uncomplicated
CPT/HCPCS: 76642; 80053; 83605; 85025; 96360; 99283; J7030; A4216

== ENCOUNTER 2023-02-06 16:31 | Emergency (ER) | payer MEDICAID, SELFPAY ==
[2023-02-06 16:32] VITALS: BP 133/115; PULSE 116; RESP 18; TEMP 35.9; O2SAT 98; BMI 34.7
--- NOTE | 2023-02-06 16:43 | EDS_ITS ---
HPI History of Present Illness Chief Complaint: Rash Detail of Chief Complaint: Patient presents because of rash and concern for cellulitis and detailed in Informant: patient Onset/Context/Timing Onset: Days Context: Sudden Onset Timing: Intermittent (Per my exam rash has resolved) Quality: Per documentation erythema per photos lenticular purpleish Location: Per documentation axilla per photos lower extremity exam Current Severity: Gone Maximum Severity: Unknown since patient has a poor command of the [place] language Worsened by: Unknown Relieved by: Unknown Associated Symptoms Associated Symptoms: None Narrative Narrative: Patient is a 48-year-old woman who admits she is an amphetamine addict. She was seen yesterday. Documentation from yesterday was read. Blood work was obtained which revealed mild renal insufficiency with a GFR of 57 and mild hyponatremia and hypokalemia of 132 and 3.0 respectively. Lactate was elevated at 3.0. Per ER documentation yesterday patient had a fine light erythematous discoloration of the skin right left axilla with no other abnormality. Patient states she snorts methamphetamine. She does not inject. She also would like the results of her ultrasound. Ultrasound was interpreted by radiologist and report states unchanged from July 14, 2022. Prior similar symptoms: Yes Recent Illness/Hospitalization: Yes [facility] BY [facility] Medical History Alcohol use disorder Bipolar 1 disorder, mixed Carbamazepine overdose of undetermined intent Chest pain Depression Dizziness Generalized anxiety disorder Intermittent palpitations Lung nodule Methamphetamine use disorder, moderate Moderate dysplasia of cervix (DARRELL II) Nicotine abuse Panic attacks PTSD (post-traumatic stress disorder) Shortness of breath Substance abuse Suicide attempt Home Medications omeprazole 40 mg capsule,delayed release 40 mg PO DAILY 03/03/18 [History Last Taken 12/01/19] multivitamin,[id number] (Complete Multivitamin tablet) 1 tab PO DAILY 07/02/19 [History Last Taken Unknown] aripiprazole 20 mg tablet 20 mg PO DAILY 10/01/19 [History Last Taken 12/01/19] oxybutynin chloride 5 mg tablet,extended release 24 hr 5 mg PO DAILY 08/17/21 [History Last Taken Unknown] hydroxyzine HCl 50 mg tablet 50 mg PO BID PRN PRN Anxiety 05/10/22 [History Last Taken Unknown] quetiapine 50 mg tablet (Seroquel) 50 mg PO QHS 30 days #30 tabs 05/24/22 [Rx Last Taken Unknown] clindamycin HCl 150 mg capsule 450 mg PO TID 10 days #90 caps 07/27/22 [Rx Last Taken Unknown] amoxicillin 875 mg-potassium clavulanate 125 mg tablet 875 mg PO Q12H #20 TABLETS 01/15/23 [Rx Last Taken Unknown] fluticasone propionate 50 mcg/actuation nasal spray,suspension (Flonase Allergy Relief) 1 spray intranasal DAILY #16 grams 01/15/23 [Rx Last Taken Unknown] Allergy/AdvReac Type Severity Reaction Status Date / Time fenofibrate Allergy Severe Hives Verified 02/06/23 16:32 cephalexin Allergy Hives Verified 02/06/23 16:32 sertraline HCl [From Zoloft] Allergy Hives Verified 02/06/23 16:32 Family History Father Hypertension Colon cancer Mother Lung cancer Grandmother Breast cancer Surgical History H/O LEEP History of cholecystectomy History of left breast biopsy (~08/2019) Social History (Updated 02/06/23 @ 16:[address] James Nichols MD) household members: none Smoking Status: Heavy Smoker (>10/day) alcohol intake: current alcohol intake frequency: a few times a week substance use type: amphetamines ROS ROS ED Constitutional Constitutional ED: Denies chills, fever(s), subjective, sweats or weight loss Eyes Eyes: Denies blurry vision, change in vision or diplopia ENT ENT ED: Denies ear pain, rhinorrhea or sore throat Cardiovascular Cardiovascular: Denies chest pain or palpitations Respiratory/Chest Respiratory/Chest: Denies cough, dyspnea or dyspnea on exertion Gastrointestinal Gastrointestinal: Denies abdominal pain, diarrhea, nausea or vomiting Genitourinary Genitourinary ED: Denies dysuria, hematuria or urinary frequency Musculoskeletal Musculoskeletal: Denies arthralgias, back pain, myalgias or neck pain Integumentary Denies abscess or Abrasions Neurologic Neurologic: Denies paresthesias or weakness Psychiatric Psychiatric: Reports anxiety Hematologic/Lymphatic Hematologic/Lymphatic: Reports systems reviewed and no addt'l complaints, except as documented EXAM Physical Exam Const Vital Signs: 02/06/23 16:32 Temperature 96.6 F L Temperature Source Temporal Pulse Rate 116 H Respiratory Rate 18 Blood Pressure 133/115 H Blood Pressure Mean 121 Pulse Ox 98 Oxygen Delivery Method Room Air Positive well nourished, well developed and obese Constitutional Narrative: Patient's speech is slightly pressured. Of note she has a history of bipolar disorder and admits to methamphetamine use. This could be the reason that her speech is pressured and she is tachycardic. General Appearance ED: well developed; Negative for pallor Nutritional Appearance: obese HEENT Reports moist mucous membranes HEENT Narrative: Head is atraumatic normocephalic. Ears normal. Nares patent. No septal deviation noted. No septal defect noted. Posterior pharynx is unremarkable. Eyes PERRL and EOMs intact bilaterally General Eye ED: Negative for pale conjunctiva or scleral icterus Neck no lymphadenopathy, supple and no JVD Chest Wall inspection of chest normal and palpation of chest normal Resp normal respiratory effort and clear to auscultation bilaterally Cardio regular rhythm, S1 normal heart sound, S2 normal heart sound and no murmurs Rate: tachycardic GI non-tender, non-distended and no masses; Negative for hepatosplenomegaly Back/Spine no CVA tenderness Cervical Spine: Negative for cervical spine tenderness Thoracic Spine / Upper Back: Negative for thoracic spinal tenderness Lumbar Spine / Lower Back: Negative for lumbar spinal tenderness Extremity normal to inspection Extremity Narrative: There is no erythema in the right or left axilla. There is no lymphadenopathy. Neuro oriented x3, CN's II-XII intact bilaterally and no sensory deficits noted Sensorium / Orientation: alert Psych Psych Narrative: Pressured speech. Hyperactivity. Skin no rashes or lesions noted, no wounds and skin turgor normal Skin Narrative: Photo from yesterday revealed a purpleish lenticular rash of the lower extremities. There was no erythema noted. General Skin Exam: Negative for jaundice or pallor MDM MDM MDM Narrative Medical decision making narrative: Back patient's pressured speech and tachycardia is due to methamphetamine in combination with history of bipolar disorder. Suspect the lenticular rash from yesterday or slight erythema that she described and described by the physician who saw her yesterday could be due to methamphetamine use. Prior tox screens were positive for methamphetamine. Review of prior records also indicates patient has multiple significant allergies to seafood, peanuts, multiple different types of trees and soy products. Since patient has no lesions presently and laboratory studies were essentially unremarkable other than mild hyponatremia and hypokalemia and GFR 57 these were not repeated. Since patient present has no symptoms lactate was not repeated. Patient was informed that her rationale likely was due to her amphetamine use. She was told her lab test results and ultrasound results. History & Record Review Additional record(s) reviewed:: Prior inpatient record, Prior outpatient record, Prior ED visit, Prior labs and Other (Results of inpatient, outpatient, ED and prior labs documented in the MDM.) Lab Data Attestation: I reviewed the patient's lab results. Radiography Diagnostic Testing: Ultrasound revealed no change from July 14, 2022 Treatment and Re-Evaluation :: Patient was informed of results from yesterday. She was discharged to home. Discharge Plan Triage Chief Complaint: Rash Other Complaint: Complaint ED Provider: James Nichols Dx/Rx/DC Orders Clinical Impression: Amphetamine abuse, Sinus tachycardia, Bipolar disorder, Hypertension, Breast pain Instructions: ED Drug Abuse Prescriptions: No Action Complete Multivitamin Tablet 1 tab PO DAILY omeprazole 40 capsule,delayed release(DR/EC) 40 mg PO DAILY Label Comments: aripiprazole 20 MG tablet 20 mg PO DAILY oxybutynin chloride 5 mg tablet extended release 24hr 5 mg PO DAILY hydroxyzine HCl 50 mg Tablet 50 mg PO BID PRN PRN (Reason: Anxiety) quetiapine [Seroquel] 50 mg tablet 50 mg PO QHS 30 Days Qty: 30 0RF clindamycin HCl 150 mg capsule 450 mg PO TID 10 Days Qty: 90 0RF amoxicillin-pot clavulanate [amoxicillin-pot clavulanate] 875-125 mg tablet 875 mg PO Q12H Qty: 20 0RF fluticasone propionate [Flonase Allergy Relief] 50 mcg/actuation spray,suspension 1 spray intranasal DAILY Qty: 16 0RF Rx Instructions: administer into each nostril Primary Care Provider: Isatu Fishman Referrals: Isatu Fishman MD [Primary Care Provider] - 1 Week Disposition Disposition: Home, Self Care
== END 2023-02-06 17:16 | disposition home or self-care (01) ==
PROVIDERS: Emergency Provider Emergency Medicine; PCP Internal Medicine; Visit Provider Emergency Medicine
DX: F15.10 Other stimulant abuse, uncomplicated (principal); F31.9 Bipolar disorder, unspecified; N64.4 Mastodynia; N28.9 Disorder of kidney and ureter, unspecified; R21 Rash and other nonspecific skin eruption; I10 Essential (primary) hypertension; E87.6 Hypokalemia; E87.1 Hypo-osmolality and hyponatremia; F17.200 Nicotine dependence, unspecified, uncomplicated
CPT/HCPCS: 99282

== ENCOUNTER 2023-03-21 12:33 | Emergency (ER) | payer MEDICAID, SELFPAY ==
[2023-03-21 12:35] VITALS: BP 143/100; PULSE 93; RESP 16; TEMP 36.3; O2SAT 100; BMI 35.7
--- NOTE | 2023-03-21 13:12 | EDS_ITS ---
HPI History of Present Illness Chief Complaint: Numb/Ting Detail of Chief Complaint: Tingling in both hands. Informant: patient Onset/Context/Timing Onset: Weeks Context: Gradual Onset Timing: Continuous Current Severity: Mild Maximum Severity: Mild Narrative Narrative: 48-year-old female has a history of psychiatric illness. She denies any prior surgeries to either arms or wrists. Other than a prior suicide attempt where she had a laceration of her left forearm. Complaining of numbness and tingling in the long and ring finger both hands in the palm for 1 to 2 weeks. Denies any fall injury or trauma. No swelling. No weakness. Prior similar symptoms: No Recent Illness/Hospitalization: No [facility] Medical History Alcohol use disorder Bipolar 1 disorder, mixed Carbamazepine overdose of undetermined intent Chest pain Depression Dizziness Generalized anxiety disorder Intermittent palpitations Lung nodule Methamphetamine use disorder, moderate Moderate dysplasia of cervix (DARRELL II) Nicotine abuse Panic attacks PTSD (post-traumatic stress disorder) Shortness of breath Substance abuse Suicide attempt Home Medications omeprazole 40 mg capsule,delayed release 40 mg PO DAILY 03/03/18 [History Last Taken 12/01/19] multivitamin,[id number] (Complete Multivitamin tablet) 1 tab PO DAILY 07/02/19 [History Last Taken Unknown] aripiprazole 20 mg tablet 20 mg PO DAILY 10/01/19 [History Last Taken 12/01/19] oxybutynin chloride 5 mg tablet,extended release 24 hr 5 mg PO DAILY 08/17/21 [History Last Taken Unknown] hydroxyzine HCl 50 mg tablet 50 mg PO BID PRN PRN Anxiety 05/10/22 [History Last Taken Unknown] quetiapine 50 mg tablet (Seroquel) 50 mg PO QHS 30 days #30 tabs 05/24/22 [Rx Last Taken Unknown] clindamycin HCl 150 mg capsule 450 mg PO TID 10 days #90 caps 07/27/22 [Rx Last Taken Unknown] amoxicillin 875 mg-potassium clavulanate 125 mg tablet 875 mg PO Q12H #20 TABLETS 01/15/23 [Rx Last Taken Unknown] fluticasone propionate 50 mcg/actuation nasal spray,suspension (Flonase Allergy Relief) 1 spray intranasal DAILY #16 grams 01/15/23 [Rx Last Taken Unknown] Allergy/AdvReac Type Severity Reaction Status Date / Time fenofibrate Allergy Severe Hives Verified 03/21/23 12:37 cephalexin Allergy Hives Verified 03/21/23 12:37 sertraline HCl [From Zoloft] Allergy Hives Verified 03/21/23 12:37 Family History Father Hypertension Colon cancer Mother Lung cancer Grandmother Breast cancer Surgical History H/O LEEP History of cholecystectomy History of left breast biopsy (~08/2019) Social History household members: none Smoking Status: Heavy Smoker (>10/day) alcohol intake: current alcohol intake frequency: a few times a week substance use type: amphetamines ROS ROS ED ROS Narrative Denies. Review of Systems ROS Unobtainable: Denies due to encephalopathy Constitutional Constitutional ED: Denies chills or fever(s) Eyes Eyes: Denies blurry vision ENT ENT ED: Denies ear pain Respiratory/Chest Respiratory/Chest: Denies cough or dyspnea Gastrointestinal Gastrointestinal: Denies abdominal pain Genitourinary Genitourinary ED: Denies dysuria or hematuria Musculoskeletal Musculoskeletal: Denies arthralgias Integumentary Denies abscess Neurologic Neurologic: Denies headache(s) Psychiatric Psychiatric: Denies anxiety Endocrine Endocrinology: Denies cold intolerance Hematologic/Lymphatic Hematologic/Lymphatic: Reports none Allergic/Immunologic Allergic/Immunologic ED: Denies mouth swelling or tongue swelling EXAM Physical Exam Narrative Exam Narrative: Well-appearing middle-aged female. Vital signs stable afebrile. No distress. No one else in the room. HEENT exam unremarkable. Neck nontender. Lungs are clear. Heart regular rhythm. Chest wall nontender. Abdomen soft nontender. Moving all 4 extremities. Neurovascular intact. Equal symmetrical radial pulses in both wrists. Full flexion-extension of both wrist. Negative Phalen's and Tinel's sign. 5 out of 5 band lining bander strength. Normal cap refill. Full flexion extension all digits of both hands. She has sensation in the digits of the hand she does have slightly decreased bilaterally. The hands appear normal. Legs are unremarkable. Neurologic exam normal. Const Vital Signs: 03/21/23 12:35 Temperature 97.4 F L Temperature Source Temporal Pulse Rate 93 Respiratory Rate 16 Blood Pressure 143/100 H Blood Pressure Mean 114 Pulse Ox 100 Oxygen Delivery Method Room Air Positive well nourished and well developed; Negative for cachectic, contractures or unkempt General Appearance ED: well developed and NAD; Negative for unkempt, cachectic, contractures, cyanotic, diaphoretic or pallor Nutritional Appearance: Negative for cachectic HEENT Reports moist mucous membranes; Denies dry mucous membranes Negative for trauma or tenderness Mouth ED: No dry mucous membranes Mouth: No dry mucous membranes Eyes PERRL and EOMs intact bilaterally General Eye ED: Negative for pale conjunctiva, scleral icterus or other Neck no lymphadenopathy, supple and no JVD General: Negative for tenderness Lymph Lymphatic: Negative for other Chest Wall inspection of chest normal and palpation of chest normal Chest: Negative for other Resp normal respiratory effort and clear to auscultation bilaterally Effort and Inspection: Negative for retractions Auscultation: Negative for rales, rhonchi or wheezes Cardio regular rate, regular rhythm, S1 normal heart sound, S2 normal heart sound and no murmurs Palpation: Negative for palpable S3 or palpable S4 Rate: Negative for bradycardia or tachycardic Rhythm: Negative for abnormal rhythm GI normal to inspection, nondistended, normoactive bowel sounds, non-tender, non- distended and no masses Inspection: Negative for abdominal distention Auscultation: normoactive bowel sounds Palpation: soft; Negative for tender or guarding Bladder / Kidney Exam: No other Back/Spine no CVA tenderness General Back: Negative for CVA tenderness Cervical Spine: Negative for cervical spine tenderness Thoracic Spine / Upper Back: Negative for thoracic spinal tenderness Lumbar Spine / Lower Back: Negative for lumbar spinal tenderness Extremity normal to inspection General Extremety ED: Negative for edema or tenderness General Extremity: Negative for edema Neuro oriented x3 and CN's II-XII intact bilaterally Sensorium / Orientation: alert; Negative for orientation impaired, lethargic or stuporous Motor Exam: strength 5/5 throughout; Negative for general weakness or strength abnormal Psych mental status grossly normal Appearance: Negative for unkempt Attitude: No agitated Mood & Affect: Negative for depressed, anxious or tearful Skin no rashes or lesions noted, no wounds and skin turgor normal General Skin Exam: elasticity normal; Negative for jaundice or pallor Lesions: No lesion noted Rashes: No rashes noted Trauma: Negative for abrasion Wounds: Negative for wounds noted MDM MDM MDM Narrative Medical decision making narrative: 48-year-old female with bilateral subjective tingling to both hands. This may be carpal tunnel. She has a negative Phalen's and Tinel's sign. She has normal motor strength. She has sensation subjectively says decreased. She has good capillary refill and radial pulses. Normal motor strength and range of motion. No test we need to do any emergency department. Anti-inflammatory such as Motrin follow-up with your physician if not improving. History & Record Review Discussion w/independent historian: Patient Discharge Plan Triage Chief Complaint: Numb/Ting ED Provider: Man Velazquez Dx/Rx/DC Orders Clinical Impression: Bilateral hand numbness, Acute carpal tunnel syndrome Instructions: Carpal Tunnel Syndrome Prescriptions: No Action Complete Multivitamin Tablet 1 tab PO DAILY omeprazole 40 capsule,delayed release(DR/EC) 40 mg PO DAILY Label Comments: aripiprazole 20 MG tablet 20 mg PO DAILY oxybutynin chloride 5 mg tablet extended release 24hr 5 mg PO DAILY hydroxyzine HCl 50 mg Tablet 50 mg PO BID PRN PRN (Reason: Anxiety) quetiapine [Seroquel] 50 mg tablet 50 mg PO QHS 30 Days Qty: 30 0RF clindamycin HCl 150 mg capsule 450 mg PO TID 10 Days Qty: 90 0RF amoxicillin-pot clavulanate [amoxicillin-pot clavulanate] 875-125 mg tablet 875 mg PO Q12H Qty: 20 0RF fluticasone propionate [Flonase Allergy Relief] 50 mcg/actuation spray,suspension 1 spray intranasal DAILY Qty: 16 0RF Rx Instructions: administer into each nostril Primary Care Provider: Isatu Fishman Referrals: Isatu Fishman MD [Primary Care Provider] - 10-14 Days if not better Activity Restrictions/Additional Instructions: Ice your wrist. Motrin for pain and inflammation. This may be secondary to carpal tunnel or pinching of the median nerve causing pain and numbness in your hands and fingers. Motrin 600 mg 3 times a day. This should improve if not follow-up with your doctor. Disposition Disposition: Home, Self Care
[2023-03-21 13:25] VITALS: RESP 16
== END 2023-03-21 13:26 | disposition home or self-care (01) ==
PROVIDERS: Emergency Provider Emergency Medicine; PCP Internal Medicine; Visit Provider Emergency Medicine
DX: G56.00 Carpal tunnel syndrome, unspecified upper limb (principal); F31.9 Bipolar disorder, unspecified; F17.200 Nicotine dependence, unspecified, uncomplicated; R20.0 Anesthesia of skin; F41.1 Generalized anxiety disorder
CPT/HCPCS: 99282

== ENCOUNTER 2023-04-15 16:45 | Emergency (ER) | payer MEDICAID, SELFPAY ==
[2023-04-15 16:49] VITALS: BP 145/98; PULSE 102; RESP 16; TEMP 36.3; O2SAT 98; BMI 35.2
--- NOTE | 2023-04-15 17:08 | EX.ED.DYSGE1 ---
HPI History of Present Illness Chief Complaint: Shortness of Breath Informant: patient Onset/Context/Timing Onset: Hours (1) Context: Sudden Onset Timing: Continuous Quality: Swelling, burning Location: Throat, tongue Worsened by: Nothing Relieved by: Benadryl Narrative Narrative: Patient presents with some throat swelling that began approximately 1 hour prior to arrival. Patient states she felt like her tongue was swelling as well. Patient states she took 2 [id number] doses of Benadryl prior to arrival. Patient called EMS and was brought to the emergency department. Patient states she feels like she has some burning in her throat. Patient states that her swelling is improving after she took the Benadryl. Patient states she just feels sleepy. Patient admits to some subjective chills. Patient admits to some shortness of breath and difficulty swallowing due to the swelling sensation. Patient also admits to a rash over her lower legs. [facility] Medical History Alcohol use disorder Bipolar 1 disorder, mixed Carbamazepine overdose of undetermined intent Chest pain Depression Dizziness Generalized anxiety disorder Intermittent palpitations Lung nodule Methamphetamine use disorder, moderate Moderate dysplasia of cervix (DARRELL II) Nicotine abuse Panic attacks PTSD (post-traumatic stress disorder) Shortness of breath Substance abuse Suicide attempt Home Medications omeprazole 40 mg capsule,delayed release 40 mg PO DAILY 03/03/18 [History Last Taken 12/01/19] multivitamin,[id number] (Complete Multivitamin tablet) 1 tab PO DAILY 07/02/19 [History Last Taken Unknown] aripiprazole 20 mg tablet 20 mg PO DAILY 10/01/19 [History Last Taken 12/01/19] oxybutynin chloride 5 mg tablet,extended release 24 hr 5 mg PO DAILY 08/17/21 [History Last Taken Unknown] hydroxyzine HCl 50 mg tablet 50 mg PO BID PRN PRN Anxiety 05/10/22 [History Last Taken Unknown] quetiapine 50 mg tablet (Seroquel) 50 mg PO QHS 30 days #30 tabs 05/24/22 [Rx Last Taken Unknown] clindamycin HCl 150 mg capsule 450 mg PO TID 10 days #90 caps 07/27/22 [Rx Last Taken Unknown] amoxicillin 875 mg-potassium clavulanate 125 mg tablet 875 mg PO Q12H #20 TABLETS 01/15/23 [Rx Last Taken Unknown] fluticasone propionate 50 mcg/actuation nasal spray,suspension (Flonase Allergy Relief) 1 spray intranasal DAILY #16 grams 01/15/23 [Rx Last Taken Unknown] Allergy/AdvReac Type Severity Reaction Status Date / Time fenofibrate Allergy Severe Hives Verified 03/21/23 12:37 cephalexin Allergy Hives Verified 03/21/23 12:37 sertraline HCl [From Zoloft] Allergy Hives Verified 03/21/23 12:37 Family History Father Hypertension Colon cancer Mother Lung cancer Grandmother Breast cancer Surgical History H/O LEEP History of cholecystectomy History of left breast biopsy (~08/2019) Social History household members: none Smoking Status: Heavy Smoker (>10/day) alcohol intake: current alcohol intake frequency: a few times a week substance use type: amphetamines ROS ROS ED Constitutional Constitutional ED: Reports chills; Denies fever(s) Eyes Eyes: Denies blurry vision or change in vision ENT ENT ED: Reports sore throat; Denies rhinorrhea Cardiovascular Cardiovascular: Reports chest pain; Denies palpitations Respiratory/Chest Respiratory/Chest: Reports dyspnea; Denies cough Gastrointestinal Gastrointestinal: Denies nausea or vomiting Genitourinary Genitourinary ED: Denies dysuria or hematuria Musculoskeletal Musculoskeletal: Reports back pain and neck pain Integumentary Reports rash; Denies abscess Neurologic Neurologic: Denies headache(s) or weakness Allergic/Immunologic Allergic/Immunologic ED: Reports mouth swelling and tongue swelling; Denies urticaria EXAM Physical Exam Const Vital Signs: 04/15/23 16:49 04/15/23 16:57 04/15/23 18:29 Temperature 97.4 F L Temperature Source Oral Pulse Rate 102 H 87 Respiratory Rate 16 16 Respiratory Effort Normal Non-Labored Respiratory Depth Normal Respiratory Pattern Normal Blood Pressure 145/98 H 120/85 H Blood Pressure Mean 113 96 Pulse Ox 98 96 Oxygen Delivery Method Room Air Room Air Room Air Positive well nourished and well developed General Appearance ED: well developed and NAD HEENT Reports moist mucous membranes HEENT Narrative: Oropharynx is clear. Airway is patent. There are no exudates noted. There is no edema noted. Neck supple and no JVD Resp normal respiratory effort and clear to auscultation bilaterally Cardio regular rate, regular rhythm and no murmurs GI normal to inspection, nondistended, normoactive bowel sounds and non-tender Palpation: soft Extremity normal to inspection General Extremety ED: Negative for edema or tenderness General Extremity: Negative for edema Neuro oriented x3, CN's II-XII intact bilaterally and no sensory deficits noted Sensorium / Orientation: alert Motor Exam: strength 5/5 throughout Psych mental status grossly normal Skin no rashes or lesions noted MDM MDM MDM Narrative Medical decision making narrative: Differential diagnosis includes pharyngeal edema, allergic reaction, and angioedema. Since the patient already took Benadryl prior to arrival, this will be held. Patient was given a dose of Solu-Medrol. Soft tissue neck x-rays will be obtained to assess for pharyngeal edema. Radiography Diagnostic Testing: Clinical Impression(s) from Imaging Studies Soft Tissue Neck X-Ray 04/15/23 17:45 IMPRESSION: No definite acute or significant abnormality seen. Electronically Signed: Garo Irvin MD at 18:26 EDT , Soft tissue neck x-ray were obtained. There are 2 views. On my independent interpretation, there is no soft tissue swelling or abnormality noted. Airway is patent. Radiologist also interpreted the x-rays and agrees. Treatment and Re-Evaluation :: Patient was given a dose of Solu-Medrol here. Patient is feeling better on reevaluation. Patient was instructed to continue Benadryl as needed for any swelling. Patient was instructed to follow-up with her primary care physician in 5 to 7 days for further evaluation. Patient understood and was agreeable with the plan. All questions were answered. Discharge Plan Triage Chief Complaint: Shortness of Breath ED Provider: Moi Landeros Dx/Rx/DC Orders Clinical Impression: Allergic reaction Instructions: ED General Allergic Reactions Prescriptions: No Action Complete Multivitamin Tablet 1 tab PO DAILY omeprazole 40 capsule,delayed release(DR/EC) 40 mg PO DAILY Label Comments: aripiprazole 20 MG tablet 20 mg PO DAILY oxybutynin chloride 5 mg tablet extended release 24hr 5 mg PO DAILY hydroxyzine HCl 50 mg Tablet 50 mg PO BID PRN PRN (Reason: Anxiety) quetiapine [Seroquel] 50 mg tablet 50 mg PO QHS 30 Days Qty: 30 0RF clindamycin HCl 150 mg capsule 450 mg PO TID 10 Days Qty: 90 0RF amoxicillin-pot clavulanate [amoxicillin-pot clavulanate] 875-125 mg tablet 875 mg PO Q12H Qty: 20 0RF fluticasone propionate [Flonase Allergy Relief] 50 mcg/actuation spray,suspension 1 spray intranasal DAILY Qty: 16 0RF Rx Instructions: administer into each nostril Primary Care Provider: Isatu Fishman Referrals: Isatu Fishman MD [Primary Care Provider] - 5-7 Days Disposition Disposition: Home, Self Care Discharge Date/Time: 04/15/23 19:11
--- NOTE | 2023-04-15 17:45 | RAD_ITS ---
STUDY: X-RAY - SOFT TISSUE NECK REASON FOR EXAM: Female, 48 years old. Edema TECHNIQUE: 2 view(s) of the neck were obtained. COMPARISON: None. FINDINGS: Normal visualized nasopharynx, oropharynx, hypopharynx. Normal epiglottis. Normal visualized subglottic tracheal air column. Normal prevertebral soft tissue structures. There are degenerative changes of the cervical spine with cervical spondylosis. The soft tissue structures are unremarkable. RAD/Neck for Soft Tissue IMPRESSION: No definite acute or significant abnormality seen. Electronically Signed: Garo Irvin MD at 18:26 EDT ,
[2023-04-15] MEDS: MethylPREDNISolone 125 MG/2 ML Vial 60 MG IV (18:28)
[2023-04-15 18:29] VITALS: BP 120/85; PULSE 87; RESP 16; O2SAT 96
== END 2023-04-15 19:11 | disposition home or self-care (01) ==
PROVIDERS: Emergency Provider Emergency Medicine; PCP Internal Medicine; Visit Provider Emergency Medicine
DX: T78.40XA Allergy, unspecified, initial encounter (principal); F31.9 Bipolar disorder, unspecified; R06.02 Shortness of breath; F17.200 Nicotine dependence, unspecified, uncomplicated; F43.10 Post-traumatic stress disorder, unspecified
CPT/HCPCS: 70360; 99285

== ENCOUNTER 2023-05-13 18:48 | Emergency (ER) | payer MEDICAID, SELFPAY ==
[2023-05-13 18:49] VITALS: BP 160/102; PULSE 116; RESP 16; TEMP 37.2; O2SAT 98; BMI 30.2
--- NOTE | 2023-05-13 19:10 | EDS_ITS ---
HPI HPI - Psych History of Present Illness Chief Complaint: Mental Health Informant: patient and EMS Narrative Narrative: Brought in by EMS for evaluation. History anxiety, depression states increasing hallucinations. She states bugs crawling out of her skin. States went downstairs in her home stuff was crawling out of the ceiling. She has been noncompliant with her medications. She was seen 180 counseling in the past. She cannot tell me when the last time. Denies suicidal homicidal ideations. Denies any diagnosed with bipolar or schizophrenia. States when she saw the bugs crawling out of the ceiling she took her dog and left the house. She went to the [employer] to visit a previous roommate. She is talking with somebody and reported EMS was contacted. States bugs are crawling out of her right leg previously had things come out of her left breast. She is states also eggs are in her hair. She does admit to meth use intermittent last time was 2 days ago. Admits to intermittent marijuana use however none recently. Review records as noted diagnosis bipolar 1 with psychosis. [facility] Medical History Alcohol use disorder Bipolar 1 disorder, mixed Carbamazepine overdose of undetermined intent Chest pain Depression Dizziness Generalized anxiety disorder Intermittent palpitations Lung nodule Methamphetamine use disorder, moderate Moderate dysplasia of cervix (DARRELL II) Nicotine abuse Panic attacks PTSD (post-traumatic stress disorder) Shortness of breath Substance abuse Suicide attempt Home Medications omeprazole 40 mg capsule,delayed release 40 mg PO DAILY 03/03/18 [History Last Taken 12/01/19] multivitamin,[id number] (Complete Multivitamin tablet) 1 tab PO DAILY 07/02/19 [History Last Taken Unknown] aripiprazole 20 mg tablet 20 mg PO DAILY 10/01/19 [History Last Taken 12/01/19] oxybutynin chloride 5 mg tablet,extended release 24 hr 5 mg PO DAILY 08/17/21 [History Last Taken Unknown] hydroxyzine HCl 50 mg tablet 50 mg PO BID PRN PRN Anxiety 05/10/22 [History Last Taken Unknown] quetiapine 50 mg tablet (Seroquel) 50 mg PO QHS 30 days #30 tabs 05/24/22 [Rx Last Taken Unknown] clindamycin HCl 150 mg capsule 450 mg (3 x 150 mg) PO TID 10 days #90 caps 07/27/22 [Rx Last Taken Unknown] amoxicillin 875 mg-potassium clavulanate 125 mg tablet 875 mg (0.875 x 875-125 mg) PO Q12H #20 TABLETS 01/15/23 [Rx Last Taken Unknown] fluticasone propionate 50 mcg/actuation nasal spray,suspension (Flonase Allergy Relief) 1 spray intranasal DAILY #16 grams 01/15/23 [Rx Last Taken Unknown] Allergy/AdvReac Type Severity Reaction Status Date / Time fenofibrate Allergy Severe Hives Verified 03/21/23 12:37 cephalexin Allergy Hives Verified 03/21/23 12:37 sertraline HCl [From Zoloft] Allergy Hives Verified 03/21/23 12:37 Family History Father Hypertension Colon cancer Mother Lung cancer Grandmother Breast cancer Surgical History H/O LEEP History of cholecystectomy History of left breast biopsy (~08/2019) Social History household members: none Smoking Status: Heavy Smoker (>10/day) alcohol intake: current alcohol intake frequency: a few times a week substance use type: amphetamines ROS ROS ED Constitutional Constitutional ED: Denies chills, fever(s) or sweats Eyes Eyes: Denies change in vision ENT ENT ED: Denies dysphagia or sore throat Cardiovascular Cardiovascular: Denies chest pain, leg edema, palpitations or racing heartbeat Respiratory/Chest Respiratory/Chest: Denies cough, dyspnea or dyspnea on exertion Gastrointestinal Gastrointestinal: Denies abdominal pain, diarrhea, nausea or vomiting Genitourinary Genitourinary ED: Denies dysuria, hematuria or urinary frequency Musculoskeletal Musculoskeletal: Denies back pain, extremity pain or neck pain Integumentary Denies rash or wounds Neurologic Neurologic: Denies headache(s), paresthesias or weakness Psychiatric Psychiatric: Reports anxiety and other Details: Hallucinations ; Denies suicidal ideation or suicidal thoughts EXAM Physical Exam Const Vital Signs: 05/13/23 18:49 Temperature 98.9 F Temperature Source Oral Pulse Rate 116 H Respiratory Rate 16 Blood Pressure 160/102 H Blood Pressure Mean 121 Pulse Ox 98 Oxygen Delivery Method Room Air Positive well nourished Constitutional Narrative: Going on tangents with difficulty redirecting. HEENT Reports moist mucous membranes normocephalic and atraumatic Eyes PERRL, EOMs intact bilaterally and conjunctivae normal General Eye ED: Yes normal appearance of both eyes Neck no lymphadenopathy and supple General: Negative for tenderness Chest Wall Chest: Negative for tenderness Resp normal respiratory effort and normal air movement Effort and Inspection: symmetric chest movement; Negative for respiratory distress Cardio regular rhythm and no murmurs Rate: tachycardic Peripheral Pulses: pulses 2+ throughout GI normal to inspection, nondistended, normoactive bowel sounds and non-tender Palpation: Negative for guarding or rebound tenderness present Back/Spine no CVA tenderness and no thoracic nor lumbar tenderness Extremity normal to inspection General Extremety ED: Negative for edema or tenderness General Extremity: Negative for edema Neuro oriented x3 and no sensory deficits noted Sensorium / Orientation: awake and alert Psych Psych Narrative: Tangentiality with visual hallucinations Skin Skin Narrative: Right distal anterior leg, there was small skin lesion from excoriation and bleeding that is dry, no drainage. Patient showed left breast noting previous scar medial aspect of the nipple, there is no drainage no erythema. Scalp examination with her scratching there is no lesions no foreign bodies, no abrasions. MDM MDM MDM Narrative Medical decision making narrative: Interventions / MDM: Differential diagnosis: Acute psychosis, history of depression bipolar, noncompliance with medications. Diagnosis considered but do not suspect: N/A My EKG interpretation: N/A Imaging independently reviewed and interpreted by myself: N/A External documents reviewed: N/A Test considered but not ordered:N/A ED course: Patient psychiatric history going on tangents noncompliant with medications. Hallucinations. Secretions on the skin noninfected. Medical clearance labs will be ordered. Admits to recent meth use along with THC use. We will plan to have evaluation by crisis. 2100: Lab stable toxicology screen with amphetamines alcohol negative. Patient has been medically cleared. Per nursing patient has called the police couple times while in the ED. Patient with increasing psychosis and hallucinations, medical noncompliance ongoing with history of depression and bipolar. Awaiting crisis evaluation the patient. 2220: Patient evaluated by crisis, they do agree with likely placement. Reports she is having increasing anxiety. I will order for p.o. Ativan. Awaiting placement. Re-evaluation: stable Disposition discussed with patient/family/significant other: Case discussed with consulting clinician: Crisis counselor This note was generated with [employer] dictation software. It may contain incorrect words, spelling, and punctuation that were not noted in checking the note before signing. Lab Data Attestation: I reviewed the patient's lab results. Labs: Laboratory Results - last 24 hr 05/13/23 05/13/23 19:25 19:28 WBC 9.9 RBC 4.69 Hgb 13.9 Hct 41.6 MCV 88.7 MCH 29.6 MCHC 33.4 RDW Std Deviation 42.5 RDW Coeff of Piero 13.2 Plt Count 354 MPV 10.4 Immature Gran % (Auto) 0.300 Neut % (Auto) 61.8 Lymph % (Auto) 28.8 [place] % (Auto) 6.5 Eos % (Auto) 1.8 Baso % (Auto) 0.8 Absolute Neuts (auto) 6.1 Absolute Lymphs (auto) 2.85 Nucleated RBC % 0 Sodium 133 L Potassium 3.4 L Chloride 101 Carbon Dioxide 28.0 Anion Gap 4 L BUN 4 L Creatinine 0.86 Estim Creat Clear Calc 74.08 Est GFR (MDRD) Af Amer 90 Est GFR (MDRD) Non-Af 74 BUN/Creatinine Ratio 4.6 L Glucose 101 Calcium 9.0 Serum , Qual NEGATIVE Urine Opiates Screen NEGATIVE Urine Methadone Screen NEGATIVE Ur Barbiturates Screen NEGATIVE Ur Phencyclidine Scrn NEGATIVE Ur Amphetamines Screen POSITIVE H MDMA (Ecstasy) Screen NEGATIVE U Benzodiazepines Scrn NEGATIVE Urine Cocaine Screen NEGATIVE U Cannabinoids Screen NEGATIVE Ur Drug Screen Comment Ethyl Alcohol < 3.0 Discharge Plan Triage Chief Complaint: Mental Health ED Provider: Joseph Son Dx/Rx/DC Orders Clinical Impression: Acute psychosis, Noncompliance, Depression, Hallucinations, Bipolar 1 disorder Prescriptions: No Action Complete Multivitamin Tablet 1 tab PO DAILY omeprazole 40 capsule,delayed release(DR/EC) 40 mg PO DAILY Patient Comments: aripiprazole 20 MG tablet 20 mg PO DAILY oxybutynin chloride 5 mg tablet extended release 24hr 5 mg PO DAILY hydroxyzine HCl 50 mg Tablet 50 mg PO BID PRN PRN (Reason: Anxiety) quetiapine [Seroquel] 50 mg tablet 50 mg PO QHS 30 Days Qty: 30 0RF clindamycin HCl 150 mg capsule 450 mg PO TID 10 Days Qty: 90 0RF amoxicillin-pot clavulanate [amoxicillin-pot clavulanate] 875-125 mg tablet 875 mg PO Q12H Qty: 20 0RF fluticasone propionate [Flonase Allergy Relief] 50 mcg/actuation spray,suspension 1 spray intranasal DAILY Qty: 16 0RF Rx Instructions: administer into each nostril Primary Care Provider: Isatu Fishman Referrals: Isatu Fishman MD [Primary Care Provider] - Disposition Disposition: Psychiatric Hospital or Unit
[2023-05-13 19:39] LABS: Absolute Lymphocyte Count 2.85 X10^3/uL (0.83-4.51); Absolute Neutrophil Count 6.1 X10^3/uL (2.0-7.7); Basophil# 0.08 X10^3/uL; Basophil% 0.8 % (0-1); Eosinophil# 0.18 X10^3/uL; Eosinophils% 1.8 % (0-5); Hematocrit 41.6 % (37-47); Hemoglobin 13.9 g/dL (12.0-15.0); Lymphocyte # 2.85 X10^3/ul (0.83-4.51); Lymphocyte % 28.8 % (19-41); Mean Corp Hgb Conc 33.4 g/dL (32-36); Mean Corpuscular Hgb 29.6 pg (27.0-32.0); Mean Corpuscular Volume 88.7 fL (81-99); Mean Platelet Vol. 10.4 fl (6.2-12.0); Monocyte# 0.64 X10^3/uL; Monocyte% 6.5 % (0-10); NRBC Flagged by Analyzer 0 % (0-5); Neutrophil % 61.8 % (47-70); Platelet Count 354 K/mm3 (150-450); RBC Distribution Width CV 13.2 % (11.6-14.6); RBC Distribution Width SD 42.5 fl (35.1-43.9); Red Blood Count 4.69 M/mm3 (4.2-5.4); White Blood Count 9.9 K/mm3 (4.4-11.0)
[2023-05-13 19:54] LABS: Anion Gap 4 (5-15); BUN 4 mg/dL (7-18); BUN/Creat Ratio 4.6 RATIO (10-20); Chloride 101 mmol/L (98-107); Creatinine, Serum 0.86 mg/dL (0.55-1.02); EST Glomerular Filtration Rate 74 mL/min (>60); Est Glom Filt Rate - Afr Amer 90 mL/min (>60); Estimated Creatinine Clearance 74.08 ml/min; Glucose 101 mg/dL (74-106); Potassium 3.4 mmol/L (3.5-5.1); Sodium Level 133 mmol/L (136-145)
[2023-05-13 19:56] LABS: Amphetamine Urine VISTA POSITIVE (<1000 ng/mL); Barbiturate Urine VISTA NEGATIVE (< 200 ng/mL); Benzodiazepine Urine VISTA NEGATIVE (< 200 ng/mL); Cocaine Urine VISTA NEGATIVE (< 300 ng/mL); Ecstacy Urine VISTA NEGATIVE (< 500 ng/mL); Methadone Urine VISTA NEGATIVE (< 300 ng/mL); PCP Urine VISTA NEGATIVE (< 25 ng/mL); THC Urine VISTA NEGATIVE (< 50 ng/mL); Vista UDS pH Range 6
[2023-05-13 20:00] LABS: Internal QC Validated? YES +Cl - CLEAR BKGD; Pregnancy, Serum, hCG Quali. NEGATIVE Negative
[2023-05-13 20:03] LABS: Alcohol, Blood (Medical)-Serum < 3.0 mg/dL
--- NOTE | 2023-05-13 20:33 | ED.RN ---
crisis was contacted, chart faxed.
--- NOTE | 2023-05-13 20:50 | ED.RN ---
Police at bedside speaking to patient.
[2023-05-13] MEDS: LORazepam 1 MG Tablet PO (23:19)
[2023-05-13 23:21] VITALS: BP 148/100; PULSE 87; RESP 18; O2SAT 97
[2023-05-14 02:00] VITALS: RESP 16
[2023-05-14 06:41] VITALS: BP 138/79; PULSE 82; RESP 16; TEMP 36.3; O2SAT 98
== END 2023-05-14 07:37 ==
PROVIDERS: Emergency Provider Emergency Medicine; PCP Internal Medicine; Visit Provider Emergency Medicine
DX: R44.3 Hallucinations, unspecified (principal); F31.9 Bipolar disorder, unspecified; Z91.199 Patient's noncompliance with other medical treatment and regimen due to unspecified reason; F17.200 Nicotine dependence, unspecified, uncomplicated; F41.9 Anxiety disorder, unspecified; Z90.49 Acquired absence of other specified parts of digestive tract
CPT/HCPCS: 36415; 80048; 80307; 82077; 84703; 85025; 99283

== ENCOUNTER → 2023-06-20 | Outpatient (CLI) | payer MEDICAID, SELFPAY ==
--- NOTE | 2023-06-20 14:53 | NEURO ---
NCS and/or EMG Patient Report Ordering Doctor: Isatu Fishman DATE OF SERVICE: 06/20/23 Danielle has complaints of numbness and tingling in the hands, worse on the left side. Electrodiagnostic findings: Left median motor nerve demonstrates prolonged distal latency with normal amplitude and conduction velocity. Right median motor nerve demonstrates prolonged distal latency with normal amplitude and conduction velocity. Normal ulnar motor response noted bilaterally. Normal median and ulnar F-waves. Prolonged median sensory latency at the wrist bilaterally. Normal ulnar and radial sensory responses. Needle EMG testing was performed the upper limbs. All muscles tested showed no evidence of denervation with normal motor unit action potentials. Electrodiagnostic impression: This is an abnormal study in the upper limbs 1. Electrodiagnostic findings suggestive of bilateral median mononeuropathy. This is consistent with a mild to moderate left carpal tunnel syndrome and mild right carpal tunnel syndrome. Multi Select Codes Neurology Neurology Interp Codes: 32615-18 Musc test done w/n test comp (interp) (2) and 16742-19 Nrv cndj test 9-10 studies (interp)
== END | disposition home or self-care (01) ==
LOC: PSN 13:27
PROVIDERS: PCP Internal Medicine; Referring Provider Internal Medicine; Visit Provider Internal Medicine
DX: G56.03 Carpal tunnel syndrome, bilateral upper limbs (principal)
CPT/HCPCS: 95886; 95911

== ENCOUNTER → 2024-04-04 | Outpatient (CLI) | payer MEDICAID, SELFPAY ==
--- NOTE | 2024-04-04 14:11 | VDLE_ITS ---
Reason For Study: SWELLING RIGHT LEFT GSV is normal. GSV is normal. CFV is compressible, spontaneous, phasic, CFV is compressible, spontaneous, phasic, competent and demonstrates normal competent, and demonstrates normal augmentation. augmentation. FV is compressible, spontaneous, phasic, FV is compressible, spontaneous, phasic, competent and demonstrates normal competent and demonstrates normal augmentation. augmentation. POP V is compressible, spontaneous, phasic, POP V is compressible, spontaneous, phasic, competent and demonstrates normal competent and demonstrates normal augmentation. augmentation. T/P Trunk is compressible. T/P Trunk is compressible. PTV is compressible. PTV is compressible. RT PerV is compressible. LT PerV is compressible. Procedure This is a venous duplex using B-mode, color flow and spectral Doppler. Exam performed in department. The exam was diagnostic. A preliminary report was called and/or faxed to Lashae Rodrigues @ [phone]. VL/Venous Duplex US - Rm Extrem Interpretation Summary Deep veins of the bilateral lower extremities are patent and compressible segme ntally. There is no evidence of bilateral lower extremity deep vein thrombosis. The bilateral great saphenous veins appear patent and compressible segmentally. Ordering Physician: LASHAE RODRIGUES Referring Physician: Isatu Fishman Performed By: Iqra Thompson, CHERELLE, RVT
== END | disposition home or self-care (01) ==
LOC: CVS 14:02
PROVIDERS: PCP Internal Medicine
DX: R22.43 Localized swelling, mass and lump, lower limb, bilateral (principal)
CPT/HCPCS: 93970

== ENCOUNTER → 2025-01-26 | Outpatient (CLI) | payer MEDICAID, SELFPAY ==
--- NOTE | 2025-01-26 13:15 | RAD_ITS ---
EXAM: XR Cervical Spine, 2 or 3 Views CLINICAL INDICATION: CERVICAL SPONDYLOSIS TECHNIQUE: Frontal and lateral views of the cervical spine. COMPARISON: No relevant prior studies available. FINDINGS: VERTEBRAE: Degenerative facet arthropathy throughout the cervical spine. Normal alignment. No acute fracture. DISC SPACES: Degenerative disc disease lower cervical spine. SOFT TISSUES: Unremarkable. RAD/Cerv Spine 2 or 3 Views IMPRESSION: 1. No acute fracture. 2. Degenerative changes cervical spine as described. Reading [facility]
--- NOTE | 2025-01-26 13:15 | RAD_ITS ---
EXAM: XR Lumbosacral Spine, 2 or 3 Views CLINICAL INDICATION: LUMBAR SPONDYLOSIS TECHNIQUE: Frontal and lateral views of the lumbar spine and sacrum. COMPARISON: No relevant prior studies available. FINDINGS: VERTEBRAE: Mild multilevel endplate degenerative changes of L2-S1. Moderate facet arthropathy of L3-S1. No acute fracture. Normal alignment. SACRUM/COCCYX: Unremarkable as visualized. No acute fracture. DISC SPACES: No acute findings. No significant narrowing. SOFT TISSUES: Unremarkable. RAD/Lumbar Spine 2 or 3 Views IMPRESSION: Degenerative changes as above. Reading Location[facility]
== END | disposition home or self-care (01) ==
LOC: RAD 12:56
PROVIDERS: PCP Internal Medicine; Referring Provider Anesthesiology; Visit Provider Anesthesiology
DX: M47.816 Spondylosis without myelopathy or radiculopathy, lumbar region (principal); M47.812 Spondylosis without myelopathy or radiculopathy, cervical region
CPT/HCPCS: 72040; 72100

== ENCOUNTER 2025-02-13 09:28 | Emergency (ER) | payer MEDICAID, SELFPAY ==
[2025-02-13 09:29] VITALS: BP 131/86; PULSE 98; RESP 18; TEMP 36.6; O2SAT 98; BMI 37.3
--- NOTE | 2025-02-13 09:57 | EX.ED.DYSGE1 ---
HPI History of Present Illness Chief Complaint: Abd Pain Narrative Narrative: Patient is a 50-year-old female with a past medical history of methamphetamine use disorder, hypertension, bipolar 1 disorder, DVT on Xarelto, depression who presents to the emergency department the chief complaint of abdominal pain. Patient states that she has had abdominal pain for the last several days that been progressively worsening. States that in the left lower portion of her abdomen rates the pain a 5 out of 10. Patient states that she had has had a cholecystectomy in the past and notes that she has been passing gas and having bowel movements. [facility] Medical History Blue toe syndrome Hypertension Substance abuse Methamphetamine use disorder, moderate Alcohol use disorder PTSD (post-traumatic stress disorder) Generalized anxiety disorder Bipolar 1 disorder, mixed Suicide attempt Carbamazepine overdose of undetermined intent Panic attacks Depression Nicotine abuse Chest pain Shortness of breath Intermittent palpitations Dizziness Lung nodule Moderate dysplasia of cervix (DARRELL II) Home Medications ?Medication ?Instructions ?Recorded ?Last Taken ?Type multivitamin,ml-[id number] 1 tab PO DAILY 07/02/19 Unknown History (Complete Multivitamin tablet) fluticasone propionate 50 1 spray intranasal DAILY #16 grams 01/15/23 Unknown Rx mcg/actuation nasal spray,suspension (Flonase Allergy Relief) acetaminophen 500 mg tablet mg PO 03/19/24 Unknown History albuterol sulfate 90 mcg/actuation 2 puff inhalation Q4H PRN 03/19/24 Unknown History aerosol inhaler amlodipine 5 mg tablet 5 mg PO QDAY 03/19/24 Unknown History aspirin 81 mg tablet,delayed 81 mg PO QDAY 03/19/24 Unknown History release cholecalciferol (vitamin D3) 1,250 PO 03/19/24 Unknown History mcg (50,000 unit) capsule cilostazol 100 mg tablet 100 mg PO BID 03/19/24 Unknown History clonidine HCl 0.1 mg tablet 0.1 mg PO QHS 03/19/24 Unknown History gabapentin 100 mg capsule 200 mg PO QHS 03/19/24 Unknown History hydrochlorothiazide 25 mg tablet 25 mg PO QDAY 03/19/24 Unknown History omeprazole 20 mg capsule,delayed 20 mg PO QDAY 03/19/24 Unknown History release oxybutynin chloride 15 mg 15 mg PO QDAY 03/19/24 Unknown History tablet,extended release 24 hr rivaroxaban 20 mg tablet (Xarelto) 20 mg PO QDAY 03/19/24 Unknown History rosuvastatin 10 mg tablet 10 mg PO QHS 03/19/24 Unknown History aripiprazole 15 mg tablet 20 mg PO QDAY 03/25/24 Unknown History dicyclomine 20 mg tablet 20 mg PO TID #20 tabs 02/13/25 Unknown Rx ondansetron 4 mg disintegrating 4 mg PO Q6H PRN nausea and 02/13/25 Unknown Rx tablet vomiting #30 tabs Allergy/AdvReac Type Severity Reaction Status Date / Time fenofibrate Allergy Severe Hives Verified 03/25/24 10:02 clindamycin Allergy Intermediate Hives Verified 03/25/24 10:02 cephalexin Allergy Hives Verified 03/25/24 10:02 olanzapine Allergy Hives Verified 03/25/24 10:22 sertraline HCl (From Zoloft) Allergy Hives Verified 03/21/23 12:37 Family History Father Hypertension Colon cancer Mother Lung cancer Grandmother Breast cancer Surgical History History of left breast biopsy (~08/2019) H/O LEEP History of cholecystectomy Social History household members: none Smoking Status: Heavy Smoker (>10/day) alcohol intake: current alcohol intake frequency: a few times a week substance use type: amphetamines ROS ROS ED ROS Narrative Constitutional: Denies fevers, chills, headaches, lightness, dizziness Cardiovascular: Denies chest pain or palpitations Respiratory: Denies coughing wheezing shortness of breath Abdomen: Planes of abdominal pain as noted above denies nausea vomit diarrhea : Denies urinary symptoms Neurological: Denies numbness, weakness, tingling Musculoskeletal: Denies back pain Skin: Denies rashes or lesions EXAM Physical Exam Narrative Exam Narrative: General: Patient lying in bed rest comfortably did not appear to be in acute distress Head: Atraumatic, normocephalic Eyes: PERRL bilaterally, EOMI bilateral, no conjunctival injection noted Neck: Soft and supple, trachea midline Cardiovascular: Regular in rhythm no murmurs gallops rubs noted Respiratory: Clear to auscultation bilaterally Abdomen: Soft, nondistended, tenderness to palpation left lower quadrant no rebound or guarding on exam Extremities: +5/5 strength noted in the bilateral upper and lower extremities Neurological: Patient follow commands knew that she was at [facility] years 2024 Skin: Warm, dry, intact no rashes or lesions noted Const Vital Signs: 02/13/25 09:29 Temperature 97.9 F Temperature Source Oral Pulse Rate 98 Respiratory Rate 18 Blood Pressure 131/86 H Blood Pressure Mean 101 Pulse Ox 98 Oxygen Delivery Method Room Air MDM MDM MDM Narrative Medical decision making narrative: Patient is a 50-year-old female who presents to the emerged part with chief complaint of abdominal pain. On the differential diagnosis includes but not limited to diverticulitis, bowel obstruction, viral gastroenteritis. Once the workup is obtained and reviewed she will be reevaluated. Patient CBC was reviewed showed no evidence leukocytosis white blood count normal 9.1, hemoglobin stable 13.3, platelet count normal at 340. Patient sodium normal 139, potassium normal at 4, creatinine was normal at 0.93. Patient's AST and ALT are normal at 20 and 20 respectively with a normal total bilirubin 0.21. Patient lipase normal at 21. Patient CT abdomen pelvis with IV contrast reviewed showed mild fatty infiltration of the liver suspected status post cholecystectomy. Diverticulosis without evidence of diverticulitis. Discussed results with patient she is feeling better she would like to go home at this point time. Patient will be given prescription for Bentyl and Zofran. She is advised to follow-up with her doctor in outpatient setting if her symptoms were to worsen or any other concerns she should return to the emergency department. She is agreeable to plan all questions earns answered she was discharged home in stable condition. Patient is requesting work note which was provided. Lab Data Labs: Laboratory Results - last 24 hr 02/13/25 10:00 WBC 9.1 RBC 4.96 Hgb 13.3 Hct 41.3 MCV 83.3 MCH 26.8 L MCHC 32.2 RDW Std Deviation 42.5 RDW Coeff of Piero 14.1 Plt Count 340 MPV 10.4 Immature Gran % (Auto) 0.300 Neut % (Auto) 48.2 Lymph % (Auto) 41.9 H Edwards % (Auto) 7.0 Eos % (Auto) 1.8 Baso % (Auto) 0.8 Absolute Neuts (auto) 4.4 Absolute Lymphs (auto) 3.81 Nucleated RBC % 0 Sodium 139 Potassium 4.0 Chloride 102 Carbon Dioxide 25.0 Anion Gap 12 BUN 10 Creatinine 0.93 Estim Creat Clear Calc 87.57 Est GFR (MDRD) Non-Af 75 BUN/Creatinine Ratio 11.1 Glucose 93 Calcium 9.2 Total Bilirubin 0.21 AST 20 ALT 20 Alkaline Phosphatase 134 H Total Protein 7.3 Albumin 4.0 Globulin 3.3 Albumin/Globulin Ratio 1.2 Lipase 21 Radiography Diagnostic Testing: Clinical Impression(s) from Imaging Studies Abdomen/Pelvis CT 02/13/25 10:15 IMPRESSION: Mild fatty infiltration of the liver is suspected. Status post cholecystectomy. Other incidental findings documented above. Reading Location: [place] [address] Discharge Plan Triage Chief Complaint: Abd Pain ED Provider: Oscar Nath Dx/Rx/DC Orders Clinical Impression: Abdominal pain Prescriptions: New dicyclomine 20 mg tablet 20 mg PO TID Qty: 20 0RF ondansetron 4 mg tablet,disintegrating 4 mg PO Q6H PRN (Reason: nausea and vomiting) Qty: 30 0RF No Action Complete Multivitamin Tablet 1 tab PO DAILY cilostazol 100 mg tablet 100 mg PO BID clonidine HCl 0.1 mg tablet 0.1 mg PO QHS oxybutynin chloride 15 mg tablet extended release 24hr 15 mg PO QDAY amlodipine 5 mg tablet 5 mg PO QDAY aspirin 81 mg tablet,delayed release (DR/EC) 81 mg PO QDAY acetaminophen 500 mg tablet PO omeprazole 20 mg capsule,delayed release(DR/EC) 20 mg PO QDAY hydrochlorothiazide 25 mg tablet 25 mg PO QDAY gabapentin 100 mg capsule 200 mg PO QHS albuterol sulfate 90 mcg/actuation HFA aerosol inhaler 2 puff inhalation Q4H PRN rosuvastatin 10 mg tablet 10 mg PO QHS cholecalciferol (vitamin D3) 1,250 mcg (50,000 unit) capsule PO Xarelto 20 mg tablet 20 mg PO QDAY fluticasone propionate [Flonase Allergy Relief] 50 mcg/actuation spray,suspension 1 spray intranasal DAILY Qty: 16 0RF Rx Instructions: administer into each nostril Primary Care Provider: Isatu Fishman Referrals: Isatu Fishman MD [Primary Care Provider] - Activity Restrictions/Additional Instructions: Your blood work here today was normal. Your CT scan of your abdomen did not show any acute surgical findings. Take prescriptions as needed for pain and nausea as prescribed. Follow-up your doctor. Return with worsening symptoms or concerns Print Language: Wolof Disposition Disposition: Home, Self Care
[2025-02-13] MEDS: 0.9% Normal Saline (1000mL) 1,000 ML 999 ML IV (10:02)
--- NOTE | 2025-02-13 10:15 | CT_ITS ---
PROCEDURE: ABDOMEN/PELVIS W IV CONT ONLY 02/13/2025 REASON FOR EXAM: LLQ PAIN TECHNIQUE: Contiguous axial scans of 3.75 mm slice thicknesses. Sagittal and coronal reconstruction images were obtained. One or more dose reduction techniques were used (e.g., automated exposure control, adjustment of mA and/or kv according to patient size, use of iterative reconstruction technique). PATIENT PREPARATION: Per protocol ORAL CONTRAST TYPE: None. AMOUNT: 0 mL CONTRAST: Isovue-300 VOLUME: 100 mL RADIATION DOSE SUMMARY: CTDlvol: 35.74 mGy DLP: 1181.03 mGycm COMPARISON: No relevant prior FINDINGS: Lung bases: Unremarkable Liver: Mild hypoattenuation of the parenchyma. No ductal dilatation. Gallbladder: Surgically absent. Spleen: Unremarkable. Normal in size. Pancreas: No masses or other abnormalities. Adrenals: No thickening or nodules. Kidneys: Excrete contrast material symmetrically. No masses or calcifications. No hydronephrosis. Bladder: Normal. Reproductive Organs: Retroverted uterus. No adnexal masses. Bowel: Mild sigmoid diverticulosis. Appendix: Unremarkable. Lymph nodes: No adenopathy. Vasculature: Mild atherosclerotic calcific disease. Peritoneum / Retroperitoneum: No masses. No free air. No free fluid Anterior abdominal wall: Unremarkable. Bones: Multilevel spondylosis. CT/Abdomen/Pelvis W IV Cont ONLY IMPRESSION: Mild fatty infiltration of the liver is suspected. Status post cholecystectomy. Other incidental findings documented above. Reading Location: [place] [id number]
[2025-02-13 10:16] LABS: Absolute Lymphocyte Count 3.81 X10^3/uL (0.83-4.51); Absolute Neutrophil Count 4.4 X10^3/uL (2.0-7.7); Basophil# 0.07 X10^3/uL; Basophil% 0.8 % (0-1); Eosinophil# 0.16 X10^3/uL; Eosinophils% 1.8 % (0-5); Hematocrit 41.3 % (37-47); Hemoglobin 13.3 g/dL (12.0-15.0); Lymphocyte # 3.81 X10^3/ul (0.83-4.51); Lymphocyte % 41.9 % (19-41); Mean Corp Hgb Conc 32.2 g/dL (32-36); Mean Corpuscular Hgb 26.8 pg (27.0-32.0); Mean Corpuscular Volume 83.3 fL (81-99); Mean Platelet Vol. 10.4 fl (6.2-12.0); Monocyte# 0.64 X10^3/uL; NRBC Flagged by Analyzer 0 % (0-5); Neutrophil # 4.39 X10^3/uL (2.7-7.7); Neutrophil % 48.2 % (47-70); Platelet Count 340 K/mm3 (150-450); RBC Distribution Width CV 14.1 % (11.6-14.6); RBC Distribution Width SD 42.5 fl (35.1-43.9); Red Blood Count 4.96 M/mm3 (4.2-5.4); White Blood Count 9.1 K/mm3 (4.4-11.0)
[2025-02-13 10:49] LABS: ALB/GLOB Ratio 1.2 RATIO (0.9-2.4); AST(SGOT) 20 U/L (<=31); Alanine Aminotransfer ALT/SGPT 20 U/L (<=34); Alkaline Phosphatase 134 U/L (35-104); Anion Gap 12 (5-15); BUN 10 mg/dL (4-19); BUN/Creat Ratio 11.1 RATIO (10-20); Calcium,Total 9.2 mg/dL (7.6-11.0); Chloride 102 mmol/L (98-108); Creatinine, Serum 0.93 mg/dL (0.70-1.20); EST Glomerular Filtration Rate 75 (>60); Estimated Creatinine Clearance 87.57 ml/min (50-250); Globulin 3.3 g/dL (2.2-4.2); Glucose 93 mg/dL (70-99); Lipase 21 U/L (13-75); Protein, Total 7.3 g/dL (5.9-8.4); Sodium Level 139 mmol/L (133-145); Total Bilirubin 0.21 mg/dL (0.00-1.30)
== END 2025-02-13 11:33 | disposition home or self-care (01) ==
PROVIDERS: Emergency Provider Emergency Medicine; PCP Internal Medicine; Visit Provider Emergency Medicine
DX: R10.9 Unspecified abdominal pain (principal); F31.9 Bipolar disorder, unspecified; F17.200 Nicotine dependence, unspecified, uncomplicated; K76.0 Fatty (change of) liver, not elsewhere classified; I10 Essential (primary) hypertension; Z90.49 Acquired absence of other specified parts of digestive tract; Z86.718 Personal history of other venous thrombosis and embolism
CPT/HCPCS: 74177; 80053; 83690; 85025; 96360; 99283; Q9967; A4216

== ENCOUNTER 2025-04-17 01:23 | Emergency (ER) | payer MEDICAID, SELFPAY ==
[2025-04-17 01:25] VITALS: BP 166/94; PULSE 88; RESP 18; TEMP 36.9; O2SAT 97; BMI 36.8
[2025-04-17 01:28] VITALS: BP 166/94; PULSE 88; RESP 18; TEMP 36.9; O2SAT 98
--- NOTE | 2025-04-17 01:31 | EX.ED.DYSGE1 ---
HPI History of Present Illness Chief Complaint: Lower Extremity Injury Detail of Chief Complaint: Concern for blood clot right leg. I am prone to blood clots . Informant: patient Onset/Context/Timing Onset: Yesterday Context: Sudden Onset Timing: Continuous Quality: Pain right calf with swelling and discoloration anteriorly Location: Right leg Current Severity: Mild Maximum Severity: Mild Worsened by: Nothing with respect to the swelling. Palpation with respect to the discom Relieved by: Nothing Associated Symptoms Associated Symptoms: No chest pain or shortness of breath. No symptoms of claudication. Narrative Narrative: Patient is a 50-year-old woman. She has a history of PAD, DVT multiple sites on long-term anticoagulant who presents with right calf pain and swelling. She denies trauma. She denies chest pain or shortness of breath. She denies pleuritic pain. She also has some discoloration anteriorly. She denies fever, chills night sweats. She is not aware of any trauma. She denies paresthesia or anesthesia of the leg and foot. Review of her records indicates she has history of hypertension, peripheral vascular disease, DVT. There is no note dating back to 2015 that she has had a DVT. She has had numerous visits for rash, diarrhea, abscesses in different locations, mental health with overdose of uncertain at intent as well as drug use and psychosis. There is no admission dating back to February 2016.. Prior similar symptoms: Yes (Per patient) Recent Illness/Hospitalization: No [facility] Medical History Blue toe syndrome Hypertension Substance abuse Methamphetamine use disorder, moderate Alcohol use disorder PTSD (post-traumatic stress disorder) Generalized anxiety disorder Bipolar 1 disorder, mixed Suicide attempt Carbamazepine overdose of undetermined intent Panic attacks Depression Nicotine abuse Chest pain Shortness of breath Intermittent palpitations Dizziness Lung nodule Moderate dysplasia of cervix (DARRELL II) Home Medications ?Medication ?Instructions ?Recorded ?Last Taken ?Type multivitamin,[id number]-[id number] 1 tab PO DAILY 07/02/19 Unknown History (Complete Multivitamin tablet) fluticasone propionate 50 1 spray intranasal DAILY #16 grams 01/15/23 Unknown Rx mcg/actuation nasal spray,suspension (Flonase Allergy Relief) acetaminophen 500 mg tablet mg PO 03/19/24 Unknown History albuterol sulfate 90 mcg/actuation 2 puff inhalation Q4H PRN 03/19/24 Unknown History aerosol inhaler shortness of breath or wheezing amlodipine 5 mg tablet 5 mg PO QDAY 03/19/24 Unknown History aspirin 81 mg tablet,delayed 81 mg PO QDAY 03/19/24 Unknown History release cholecalciferol (vitamin D3) 1,250 PO 03/19/24 Unknown History mcg (50,000 unit) capsule cilostazol 100 mg tablet 100 mg PO BID 03/19/24 Unknown History clonidine HCl 0.1 mg tablet 0.1 mg PO QHS 03/19/24 Unknown History gabapentin 100 mg capsule 200 mg PO QHS 03/19/24 Unknown History hydrochlorothiazide 25 mg tablet 25 mg PO QDAY 03/19/24 Unknown History omeprazole 20 mg capsule,delayed 20 mg PO QDAY 03/19/24 Unknown History release oxybutynin chloride 15 mg 15 mg PO QDAY 03/19/24 Unknown History tablet,extended release 24 hr rivaroxaban 20 mg tablet (Xarelto) 20 mg PO QDAY 03/19/24 Unknown History rosuvastatin 10 mg tablet 10 mg PO QHS 03/19/24 Unknown History aripiprazole 15 mg tablet 20 mg PO QDAY 03/25/24 Unknown History dicyclomine 20 mg tablet 20 mg PO TID #20 tabs 02/13/25 Unknown Rx ondansetron 4 mg disintegrating 4 mg PO Q6H PRN nausea and 02/13/25 Unknown Rx tablet vomiting #30 tabs famotidine 40 mg tablet 40 mg PO QHS 04/17/25 Unknown History Allergy/AdvReac Type Severity Reaction Status Date / Time fenofibrate Allergy Severe Hives Verified 04/17/25 01:23 clindamycin Allergy Intermediate Hives Verified 04/17/25 01:23 cephalexin Allergy Hives Verified 04/17/25 01:23 olanzapine Allergy Hives Verified 04/17/25 01:23 sertraline HCl (From Zoloft) Allergy Hives Verified 04/17/25 01:23 Family History Father Hypertension Colon cancer Mother Lung cancer Grandmother Breast cancer Surgical History History of left breast biopsy (~08/2019) H/O LEEP History of cholecystectomy Social History household members: none Smoking Status: Heavy Smoker (>10/day) alcohol intake: current alcohol intake frequency: a few times a week substance use type: amphetamines ROS ROS ED Constitutional Constitutional ED: Denies chills, fever(s), subjective, sweats or weight loss Cardiovascular Cardiovascular: Denies chest pain, orthopnea, palpitations, paroxysmal nocturnal dyspnea or racing heartbeat Respiratory/Chest Respiratory/Chest: Denies cough, dyspnea, dyspnea on exertion, orthopnea or paroxysmal nocturnal dyspnea Gastrointestinal Gastrointestinal: Denies abdominal pain, nausea or vomiting Musculoskeletal Musculoskeletal: Reports other Details: Swelling and discomfort right leg. Integumentary Reports rash Neurologic Neurologic: Denies headache(s), paresthesias or weakness Hematologic/Lymphatic Hematologic/Lymphatic: Reports systems reviewed and no addt'l complaints, except as documented EXAM Physical Exam Const Vital Signs: 04/17/25 01:25 04/17/25 01:28 Temperature 98.5 F 98.5 F Temperature Source Oral Oral Pulse Rate 88 88 Respiratory Rate 18 18 Blood Pressure 166/94 H 166/94 H Blood Pressure Mean 118 118 Pulse Ox 97 98 Oxygen Delivery Method Room Air Room Air Positive well nourished and well developed Constitutional Narrative: BMI is 36.8. Vital signs reveal elevated blood pressure. She does have history of elevated blood pressure. She was last seen in the ER February 13, 2025. Her blood pressure was elevated at that time. General Appearance ED: well developed and NAD HEENT Reports moist mucous membranes HEENT Narrative: Head is atraumatic normocephalic. Ears normal. Nares patent. Eyes PERRL and EOMs intact bilaterally General Eye ED: Negative for scleral icterus Resp normal respiratory effort Cardio regular rate and regular rhythm Extremity Negative for normal to inspection Extremity Narrative: The right leg is swollen compared to the left. There is discoloration anteriorly. The place patient complains of tenderness which is mid calf there is bruising noted. Patient was unaware of this. There may be a palpable hematoma. Since venous duplex study is not available after 11 PM we will obtain a D-dimer. If D-dimer is normal and the fact that she is on Xarelto 20 mg suspect her pain and swelling is due to a hematoma. The compartments are soft. She has no paresthesia or anesthesia of her foot. There is no pallor. There is no limited range of motion. Clinically she does not have a compartment syndrome. Neuro oriented x3, CN's II-XII intact bilaterally and no sensory deficits noted Sensorium / Orientation: alert Motor Exam: strength 5/5 throughout Psych mental status grossly normal Skin Skin Narrative: Bruising noted right leg anterior medial and posteriorly. MDM MDM MDM Narrative Medical decision making narrative: Differential diagnosis would include DVT, hematoma due to incidental trauma and the fact that she is on an anticoagulant. There is no clinical evidence of arterial insufficiency or ischemia. There is no evidence or findings suggestive of cellulitis. Will monitor blood pressure. Blood work was obtained assess white count differential. ESR was obtained to assess for any evidence of inflammation. If greater than 100 need to consider infectious cause. D-dimer was obtained. If normal in my opinion likelihood of DVT is low. Wells score is 0. She is considered low risk. Therefore if D-dimer is normal we will not need to pursue venous duplex study to rule out DVT. Since patient's well score was 0 and that D-dimer is normal venous duplex study is not indicated. Patient was informed that she has a hematoma. She states that she looked at up when I first used the word because she did not know what it meant. She has been instructed to hold her Xarelto for 2 days. The last time she was diagnosed with a DVT was 3 to 4 years ago at a [facility]. Patient's blood pressure elevation may also be due to the fact that she is very anxious. History & Record Review Additional record(s) reviewed:: Prior ED visit and Prior labs Lab Data Attestation: I reviewed the patient's lab results. Lab results narrative: CBC and differential are normal. Hematocrit is slightly low and patient has microcytic indices. She has not had microcytic indices in the past. Labs: Laboratory Results - last 24 hr 04/17/25 01:34 WBC 10.1 RBC 4.78 Hgb 12.2 Hct 36.6 L MCV 76.6 L MCH 25.5 L MCHC 33.3 RDW Std Deviation 41.9 RDW Coeff of Piero 15.3 H Plt Count 310 MPV 9.4 Immature Gran % (Auto) 0.500 Neut % (Auto) 54.2 Lymph % (Auto) 34.6 [place] % (Auto) 8.5 Eos % (Auto) 1.4 Baso % (Auto) 0.8 Absolute Neuts (auto) 5.5 Absolute Lymphs (auto) 3.49 Nucleated RBC % 0 D-Dimer Quant (PE/DVT) 0.37 Sodium 127 L Potassium 3.0 L Chloride 91 L Carbon Dioxide 24.0 Anion Gap 12 BUN 3 L Creatinine 0.79 Estim Creat Clear Calc 102.33 Est GFR (MDRD) Non-Af 91 BUN/Creatinine Ratio 4.2 L Glucose 106 H Calcium 8.6 Treatment and Re-Evaluation :: Patient was reexamined prior to discharge. Compartments are soft. Again there is no concern clinically at this time for compartment syndrome. Discharge Plan Triage Chief Complaint: Lower Extremity Injury ED Provider: James Nichols Dx/Rx/DC Orders Clinical Impression: Hematoma of right lower leg, Hypertension, PVD (peripheral vascular disease), Anticoagulant long-term use, History of deep vein thrombosis Instructions: Bruises (Contusions) Prescriptions: No Action Complete Multivitamin Tablet 1 tab PO DAILY cilostazol 100 mg tablet 100 mg PO BID clonidine HCl 0.1 mg tablet 0.1 mg PO QHS oxybutynin chloride 15 mg tablet extended release 24hr 15 mg PO QDAY amlodipine 5 mg tablet 5 mg PO QDAY aspirin 81 mg tablet,delayed release (DR/EC) 81 mg PO QDAY acetaminophen 500 mg tablet PO omeprazole 20 mg capsule,delayed release(DR/EC) 20 mg PO QDAY hydrochlorothiazide 25 mg tablet 25 mg PO QDAY gabapentin 100 mg capsule 200 mg PO QHS albuterol sulfate 90 mcg/actuation HFA aerosol inhaler 2 puff inhalation Q4H PRN (Reason: shortness of breath or wheezing) rosuvastatin 10 mg tablet 10 mg PO QHS cholecalciferol (vitamin D3) 1,250 mcg (50,000 unit) capsule PO Xarelto 20 mg tablet 20 mg PO QDAY fluticasone propionate [Flonase Allergy Relief] 50 mcg/actuation spray,suspension 1 spray intranasal DAILY Qty: 16 0RF Rx Instructions: administer into each nostril dicyclomine 20 mg tablet 20 mg PO TID Qty: 20 0RF ondansetron 4 mg tablet,disintegrating 4 mg PO Q6H PRN (Reason: nausea and vomiting) Qty: 30 0RF famotidine 40 mg tablet 40 mg PO QHS Primary Care Provider: Isatu Fishman Referrals: Isatu Fishman MD [Primary Care Provider] - 3-5 Days if not improving Activity Restrictions/Additional Instructions: 1. Warm compresses every 1-2 hours while awake 2. Do not take your next 2 doses of Xarelto. Print Language: Turkmen Disposition Disposition: Home, Self Care
[2025-04-17 01:43] LABS: Absolute Lymphocyte Count 3.49 X10^3/uL (0.83-4.51); Absolute Neutrophil Count 5.5 X10^3/uL (2.0-7.7); Basophil# 0.08 X10^3/uL; Basophil% 0.8 % (0-1); Eosinophil# 0.14 X10^3/uL; Eosinophils% 1.4 % (0-5); Hematocrit 36.6 % (37-47); Hemoglobin 12.2 g/dL (12.0-15.0); Lymphocyte # 3.49 X10^3/ul (0.83-4.51); Lymphocyte % 34.6 % (19-41); Mean Corp Hgb Conc 33.3 g/dL (32-36); Mean Corpuscular Hgb 25.5 pg (27.0-32.0); Mean Corpuscular Volume 76.6 fL (81-99); Mean Platelet Vol. 9.4 fl (6.2-12.0); Monocyte# 0.86 X10^3/uL; Monocyte% 8.5 % (0-10); NRBC Flagged by Analyzer 0 % (0-5); Neutrophil # 5.46 X10^3/uL (2.7-7.7); Neutrophil % 54.2 % (47-70); Platelet Count 310 K/mm3 (150-450); RBC Distribution Width CV 15.3 % (11.6-14.6); RBC Distribution Width SD 41.9 fl (35.1-43.9); Red Blood Count 4.78 M/mm3 (4.2-5.4); White Blood Count 10.1 K/mm3 (4.4-11.0)
[2025-04-17 01:54] LABS: D-Dimer Quantitative (DVT/PE) 0.37 FEU/ug/m (0.27-0.49)
[2025-04-17 02:04] LABS: Anion Gap 12 (5-15); BUN 3 mg/dL (4-19); BUN/Creat Ratio 4.2 RATIO (10-20); Calcium,Total 8.6 mg/dL (7.6-11.0); Chloride 91 mmol/L (98-108); Creatinine, Serum 0.79 mg/dL (0.70-1.20); EST Glomerular Filtration Rate 91 (>60); Estimated Creatinine Clearance 102.33 ml/min (50-250); Glucose 106 mg/dL (70-99); Sodium Level 127 mmol/L (133-145)
--- OUTSIDE RECORDS SUMMARY | 2025-04-17 02:10 | XMS RPT_ITS | CCD ---
Author Organization [facility] Care Team Providers Care Handstitching Machine Collar Feller Name Role Phone Isatu Nieto MD Primary Care Provider Kamron CHEW, Tina Unavailable MATTHEW CHAN Attending Unavailable MATTHEW CHAN Primary Care Unavailable MATTHEW CHAN Admitting Unavailable Isatu Nieto MD Primary Care Provider Kamron CHEW, Tina Unavailable Kamron CHEW, Tina Unavailable Isatu Nieto MD Primary Care Provider Kamron CHEW, Tina Unavailable Obed GRANT, Teresa A Primary Care Prov ider Unavailable Mitch Owusu Attending Unavailab Mitch Mondragon Admitting Unavailab le NON STAFF Primary Care Unavailable TERESA CLAY Primary Care MATTHEW Infante Admitting MATTHEW Infante Attending Malinavai labnatalie Unavailable Primary Care Provider Unavailbill e TERESA CLAY A Primary Care Unavai AALIYAH Hobbs Attending Unavailable ROSHAN KAPADIA Consulting Unavailable ROSHAN KAPADIA Admitting Unavailable ADRIANO LEI Consulting Unavailable ONEL DOBBINS Consulting Unavailable TERRY MEDINA Consulting Unavailable ELIZABETH OROZCO Consulting Unavailable DANNY HARRIS Consulting Unavailable LIMA, JEANMARIE Consulting Unavailable CHARLIE JOY Consulting Unavailable NIKITA WYNNE Consulting Unavailable ARIELLA BERNAL Consulting Unavailable ANGELA DIEGO Consulting Unavailable ELICEO-ALKA, TERESA A Primary Care Unavai lable DIONICIOLISANDRODMITRY Referring Unavailable ELICEO-ALKA, TERESA A Primary Care Unavai lable LAINEY GERMAN Referring Unavailable ELICEO-ALKA, TERESA A Primary Care Unavai lable LAINEY GERMAN Referring Unavailable LAINEY GERMAN Attending Unavailable PEPE MCLEAN Referring Unavailable ELICEO-ALKA, TERESA A Primary Care Unavai lable ELICEO-ALKA, TERESA A Primary Care Unavai lable MATTHIAS, MARIA ELENA R Referring Unavailable MATTHIASMARIA ELENA VALDES R Attending Unavailable ELICEO-ALKA, TERESA A Primary Care Unavai lable KOLLIPARA, TERRY S Referring Unavailable KOLLIPARA, TERRY S Attending Unavailable ELICEO-ALKA, TERESA A Primary Care Unavai lable LOUIE SANTIAGO Referring Unavailable NICHOLAS LONGORIA Attending Unavailable ELICEO-ALKA, TERESA A Primary Care Unavai lable ELICEO-ALKA, TERESA A Primary Care Unavai lable RAMA NIEVES Attending Unavailable ELICEO-ALKA, TERESA A Primary Care Unavai lable LAINEY GERMAN Attending Unavailable MILMARKEJULIANA Consulting Unavailable ELICEO-ALKA, TERESA A Primary Care Unavai lable ELICEO-ALKA, TERESA A Primary Care Unavai lable MILADORE, JULIANA N Referring Unavailable MILADORE JULIANA N Attending Unavailable MORIAHANGELA MANUEL Attending Unavailable ELICEO-ALKA, TERESA A Primary Care Unavai lable MORIAH, ANGELA Referring Unavailable MORIAHANGELA Attending Unavailable ELICEO-ALKA, TERESA A Primary Care Unavai lable MORIAH, ANGELA Referring Unavailable ELICEO-ALKA, TERESA A Primary Care Unavai lable KOLLIPARA, TERRY S Referring Unavailable ELICEO-ALKA, TERESA A Primary Care Unavai lable KOLLIPARA, TERRY S Attending Unavailable KOLLIPARA, TERRY S Referring Unavailable LEIGHA ALFORD Attending Unavailable ONEL DOBBINS Attending Unavailable ONEL DOBBINS Attending Unavailable Gustavo Brown Attending Unavailable Makayla Morley MD Unavailable Unavailable Deb Tomlinson Unavailable UnavailRob Campos DPM Unavailable Unavailable Unavailable Primary Care Provider Unavailbill Nieto MD, Isatu Primary Care Provider Endy De Anda MD Unavailable CleKiet booth DO Unavailable Older GENERATOR SWITCHBOARD OPERATOR.Milly LAGUNA Primary Care Provider Alverto Baig Unavailable Isatu Nieto MD Primary Care Provider Lashae Rodrigues MD Primary Care Provider MORENO BRADLEY Attending Unavailable LASHAE RODRIGUES Primary Care Unavailable TERESA CLAY Primary Care Campos CLAY, TERESA Arboleda Referring ROSHAN Valladares Admitting Unavailable ROSHAN KAPADIA Consulting Unavailable AALIYAH ALEX MD Attending Unavailab ADRIANO Strickland Consulting Unavailable FAONEL CARTWRIGHT Consulting Unavailable KOLLIPARA, TERRY S Consulting Unavailable ELIZABETH OROZCO Consulting Unavailable DANNY HARRIS R Consulting Unavailable GHCJ, JEANMARIE Consulting Unavailable CHARLIE JOY MD Consulting UnavailNIKITA Cohn Consulting Unavailable ARIELLA BERNAL Consulting Unavailable ANGELA DIEGO Consulting Unavailable Bitely GENERATOR SWITCHBOARD OPERATOR-LUZ ELENA, Ant Primary Care Provider Isatu Nieto MD Primary Care Provider ANT HODGE Referring Unavailable NAVEEN, ANT Attending Unavailable ANT HODGE Primary Care Unavailable PROVIDER, UNKNOWN Attending Unavailable PROVIDER, UNKNOWN Admitting Unavailable PEYMANKAMERONIA KERRI Referring Unavailable PROVIDER, UNKNOWN Attending Unavailable PROVIDER, UNKNOWN Admitting Unavailable PEYMANKAMERONIA KERRI Referring Unavailable PROVIDER, UNKNOWN Attending Unavailable PROVIDER, UNKNOWN Admitting Unavailable KIET FLANNERY Referring Unava ilable PROVIDER, UNKNOWN Attending Unavailable PROVIDER, UNKNOWN Admitting Unavailable ENDY DE ANDA Attending Unavailable PROVIDER, UNKNOWN Admitting Unavailable PROVIDER, UNKNOWN Attending Unavailable PROVIDER, UNKNOWN Admitting Unavailable KIET FLANNERY Referring Unava ilable PROVIDER, UNKNOWN Attending Unavailable PROVIDER, UNKNOWN Admitting Unavailable PROVIDER, UNKNOWN Admitting Unavailable JOSE G WARD Attending Unavailable PROVIDER, UNKNOWN Attending Unavailable PROVIDER, UNKNOWN Admitting Unavailable Unavailable Primary Care Provider Unavailabl e Bitely LUZ ELENA, Ant L Primary Care Provider Bitely Ant LAGUNA Primary Care Provider Unavailable Primary Care Provider Unavailabl e Bitely HAND SCRAPER, Ant Bitely Primary Care Provider [phone] Colby PISANO Referring Unavailabl e EAGLELEWIS, Colby Patel Attending Unavailabl e EAGLELEWIS, S RAYMUNDO M Admitting Unavailabl e NAVEEN, ANT Primary Care Unavailable EAGLELEWIS, S RAYMUNDO M Referring Unavailabl e EAGLELEWIS, S RAYMUNDO Patel Attending Unavailabl e NAVEEN, ANT Primary Care Unavailable LEEANN THOMPSON Attending Unavailable NAVEEN, ANT Primary Care Unavailable SELF, SELF Referring Unavailable EAGLELEWIS, S RAYMUNDO M Referring Unavailabl e LEEANN THOMPSON Attending Unavailable NAVEEN, ANT Primary Care Unavailable GanIsatu pete MD Primary Care Provider NEENA HAWKINS Attending Unavailable NAVEEN, ANT RIOS Primary Care Unavailable NAVEEN, ANT RIOS Primary Care Unavailable ENDY LEWIS JR. Attending Unav ailable NAVEEN, ANT GABRIEL Primary Care Unavailable CHIKA BELCHER Attending U navailable Older GENERATOR SWITCHBOARD OPERATOR.LUZ ELENAMilly Unavailable Ganta, Isatu Primary Care Unavailable JUDY, REBECCA Referring Unavailable JUDYREBECCA Attending Unavailable Ganta, Isatu Primary Care Unavailable Oscar Nath Attending Unavailable Ganta, Isatu Primary Care Unavailable Grant Sainiison Attending Unavailable Saini, Moriah Referring Unavailable Ganta, Isatu Primary Care Unavailable Hector Tran Attending Unavailable PratreonMarilus Referring Unavailable Ganta, Isatu Referring Unavailable Ganta, Isatu Primary Care Unavailable Matthew Valle Attending Unavailable Ganta, Isatu Referring Unavailable Ganta, Isatu Primary Care Unavailable Jeanna Barker Attending Unavailable JUDY, SEA Referring Unavailable Moi Landis Attending Unavailable Ganta, Isatu Primary Care Unavailable Ganta, Isatu Primary Care Unavailable Grant Sainiison Attending Unavailable Ganta, Isatu Referring Unavailable BRANDO CID Attending Unavailab le NAVEEN, ANT RIOS Primary Care Unavailable BRANDO CID Attending Unavailab le NAVEEN, ANT GABRIEL Primary Care Unavailable CIDBRANDO Bowman Attending Unavailab le NAVEEN, ANT GABRIEL Primary Care Unavailable RACHAEL CONTRERAS Attending Unavailable NAVEEN, ANT GABRIEL Primary Care Unavailable CIDBRANDO Bowman Attending Unavailab le NAVEEN, ANT GABRIEL Primary Care Unavailable NAVEEN, ANT GABRIEL Referring Unavailable BRANDO CID Attending Unavailab le NAVEEN, ANT GABRIEL Primary Care Unavailable NAVEEN, ANT GABRIEL Primary Care Unavailable BRANDO CID Attending Unavailab le NAVEEN, ANT Primary Care Unavailable RICKI ARCHER Attending Unavailable NAVEEN, ANT Primary Care Unavailable EAGLESTON, S RAYMUNDO Attending Unavailable EAGLESTON, S RAYMUNDO Admitting Unavailable NAVEEN, ANT Primary Care Unavailable NAVEEN, ANT Attending Unavailable SELF, SELF Referring Unavailable NAVEEN, ANT Primary Care Unavailable EAGLESTON, S RAYMUNDO Referring Unavailable EAGLESTON, S RAYMUNDO Attending Unavailable NAVEEN, ANT Primary Care Unavailable NAVEEN, ANT Referring Unavailable NAVEEN, ANT Attending Unavailable SELF, SELF Referring Unavailable NAVEEN, ANT Primary Care Unavailable EAGLESTON, S RAYMUNDO Attending Unavailable NAVEEN, ANT Primary Care Unavailable EAGLESTON, S RAYMUNDO Referring Unavailable EAGLESTON, S RAYMUNDO Attending Unavailable SELF, SELF Referring Unavailable NAVEEN, ANT Primary Care Unavailable EAGLESTON, S RAYMUNDO Attending Unavailable NAVEEN, ANT Primary Care Unavailable TINA ANDREWS Attending Unavailable SELF, SELF Referring Unavailable NAVEEN, ANT Primary Care Unavailable NAVEEN, ANT Referring Unavailable EAGLESTON, S RAYMUNDO Attending Unavailable NAVEEN, ANT Primary Care Unavailable NAVEEN, ANT Referring Unavailable GERONIMO SIMON Attending Unavailable NAVEEN, ANT Primary Care Unavailable EAGLESTON, S RAYMUNDO Referring Unavailable EAGLESTON, S RAYMUNDO Attending Unavailable NAVEEN, ANT Primary Care Unavailable ANDREWS, TINA L Attending Unavailable SELF, SELF Referring Unavailable NAVEEN, ANT Primary Care Unavailable TIFF WILSON Attending Unavailable SELF, SELF Referring Unavailable NAVEEN, ANT Primary Care Unavailable NAVEEN, ANT Referring Unavailable NAVEEN, ANT Attending Unavailable SHE TREADWELL Attending Unavailable NAVEEN, ANT Primary Care Unavailable SELF, SELF Referring Unavailable NAVEEN, ANT Primary Care Unavailable GANTA, ISATU Primary Care Unavailable BLANCA LANDIS Attending Unavailable GANTA, ISATU Primary Care Unavailable ABEREGG, KRISLYN P Referring Unavailable LORENZA, LASHAE C Primary Care Unavailable MATTHEW HOWE Attending Unavailable NAVEEN, ANT NAVEEN Primary Care Unavailable MATTHEW HOWE Attending Unavailable GANTA, ISATU Primary Care Unavailable OSBALDOFRANCO HINDS Attending Unavailable GANTA, ISATU Primary Care Unavailable GANTA, ISATU Referring Unavailable DEBRA CARRILLO Attending Unavailable GANTA, ISATU Primary Care Unavailable TORRI PATEL Attending Unavailable LISET VALDEZ Attending Unavailable GANTA, ISATU Primary Care Unavailable GANTA, ISATU Primary Care Unavailable ELIAS DUPONT Referring Unavailable VALERIE HERNANDEZ Attending Unavailable GANTA, ISATU Primary Care Unavailable BRANDO LOPEZ Attending Unavailable GANTA, ISATU Primary Care Unavailable SELF Referring Unavailable FRANCO ROBLERO Attending Unavailable GANTA, IASTU Primary Care Unavailable GANTA, ISATU Attending Unavailable GANTA, ISATU Primary Care Unavailable GANTA, ISATU Referring Unavailable GANTA, ISATU Primary Care Unavailable FRANCO ROBLERO Attending Unavailable GANTA, ISATU Primary Care Unavailable TESTTORRI BERNSTEIN Referring Unavailable GANTA, ISATU Primary Care Unavailable GANTA, ISATU Referring Unavailable TESTTORRI BERNSTEIN Attending Unavailable GANTA, ISATU Primary Care Unavailable BLANCA LANDIS Attending Unavailable GANTA, ISATU Primary Care Unavailable GANTA, ISATU Referring Unavailable FRANCO ROBLERO Attending Unavailable LORENZA, LASHAE C Primary Care Unavailable OSBALDOFRANCO HINDS Referring Unavailable GANTA, ISATU Primary Care Unavailable BLANCA LANDIS Attending Unavailable LORENZA, LASHAE C Primary Care Unavailable FRANCO ROBLERO Referring Unavailable LORENZA, LASHAE C Primary Care Unavailable ESCOBAR, DANIELA Attending Unavailable GANTA, ISATU Primary Care Unavailable GANTA, ISATU Referring Unavailable KIMBERLY MARADIAGA Attending Unavailable GANTA, ISATU Primary Care Unavailable GANTA, ISATU Attending Unavailable GANTA, ISATU Primary Care Unavailable TESTTORRI BERNSTEIN Referring Unavailable GANTA, ISATU Primary Care Unavailable OSBALDOFRANCO HINDS Attending Unavailable GANTA, ISATU Primary Care Unavailable BLANCA LANDIS Attending Unavailable Allergies Allergy Classification Reported Allergen(s) Allergy Type Date of Onset Reaction(s) Facility Cephalosporins (antibiotic) (5 sources) Cephalexin; 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: [CEPHALEXIN] Drug Allergy 8 Hives, Diarrhea [facility] Fenofibrate (5 sources) Fenofibrate; 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: [FENOFIBRATE] Drug Allergy 9 Other: See Comments [facility] Lincosamides (antibiotic) (5 sources) Clindamycin; 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: [CLINDAMYCIN] Drug Allergy 9 Hives [facility] OLANZapine (5 sources) OLANZapine; 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: [OLANZAPINE] Drug Allergy 4 Mental Status Change, Hives [facility] Serotonin Reuptake Inhibitors (SSRIs) (5 sources) Sertraline; 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: [SERTRALINE HCL] Drug Allergy 3 Hives, Diarrhea [facility] (20 sources) Cephalexin; 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: [CEPHALEXIN] Drug Allergy 8 Hives, Diarrhea [facility] (20 sources) Clindamycin; 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: [CLINDAMYCIN] Drug Allergy 9 Hives [facility] (20 sources) Fenofibrate; 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: [FENOFIBRATE] Drug Allergy 9 Other: See Comments, Other (See Comments) [facility] (20 sources) Sertraline; 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: [SERTRALINE HCL] Drug Allergy 3 Hives, Diarrhea [facility] (1 source) Cephalexin Drug Allergy [facility] (1 source) Codeine Drug Allergy [facility] (17 sources) Sertraline; 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: [ZOLOFT] Drug Allergy 4 [facility] (20 sources) Fenofibrate Drug Allergy 9 [facility] (20 sources) Sertraline; 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: [SERTRALINE] Drug Allergy 3 Diarrhea, Hives [facility] (20 sources) OLANZapine; 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: [OLANZAPINE] Drug Allergy 4 Other (See Comments), Mental Status Change, Hives [facility] (20 sources) OLANZapine Drug Allergy 4 Hives [facility] (7 sources) Adhesive Tape-Silicones; 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: [ADHESIVE TAPE-SILICONES] Propensity to adverse reactions to drug 4 Itching [facility] (17 sources) *Adhesive Tape Propensity to adverse reactions 4 Itching [facility] (1 source) Cephalexin Drug Allergy 4 [facility] (1 source) Clindamycin Drug Allergy 4 [facility] (1 source) Fenofibrate Drug Allergy 4 [facility] (1 source) OLANZapine Drug Allergy 4 [facility] (1 source) Sertraline Drug Allergy 3 [facility] Medications Current Medications Medication Drug Class(es) Dates Sig (Normalized) Sig (Original) [id number] 200 actuat albuterol 0.09 mg/actuat metered dose inhaler (20 sources) beta2-Adrenergic Agonist Start: 11-11-2024 take 2 puff(s) by inhalation every six hours as needed Albuterol 108 (90 Base) MCG/ACT Aero Soln inhaler Indications: Cough, unspecified type Inhale 2 puffs every 6 hours as needed. 18 g 3 11/11/2024 Active Start: 10-09-2023 albuterol HFA 90 mcg/act inhaler Start: 10-09-2023 albuterol sulf ate HFA (PROVENTIL;VENTOLIN;PROAIR) 108 (90 Base) MCG/ACT inhaler Start: 09-25-2022 End: 11-10-2024 take 2 puff(s) by inhalation every six hours as needed albuterol HFA (PROVENTIL HFA, VENTOLIN HFA) 90 mcg/actuation inhaler Inhale 2 Puffs as instructed every 6 hours as needed. 10/09/2023 Active Comment on above: Inhale 2 Puffs as in structed every 6 hours as needed for wheezing/shortness of breath. amLODIPine 5 mg oral tablet (20 sources) Dihydropyridine Calcium Channel Shabnam Start: 03-03-20 25 End: 03-03-20 take 1 tablet by mouth once daily amLODIPine (NORVASC) 5 mg tablet Take 1 tablet by mouth once daily. 90 tablet 3 03/03/2025 03/03/2026 Active Start: 08-15-2024 End: 11-10-2024 take 1 tablet by mouth once daily in the morning amLODIPine 5 MG tablet Indications: Benign essential hypertension Take 1 tablet by mouth daily. am 30 tablet 3 11/11/2024 Active Start: 10-04-2023 End: 08-06-2024 take 1 tablet by mouth once daily amLODIPine 5 MG tablet Take 1 tablet by mouth daily. 10/04/2023 08/06/2024 Discontinued Start: 08-17-2023 End: 03-03-2025 take 1 tablet by mouth once daily amLODIPine (NORVASC) 2.5 mg tablet Take 1 tablet by mouth once daily. 30 tablet 1 09/17/2023 03/03/2025 Discontinued Comment on above: Take 1 tablet by tanja th once daily. amoxicillin 875 mg / clavulanate 125 mg oral tablet (5 sources) Penicillin-class Antibacterial Start: 12-19-2023 End: 12-23-2023 take 1 tablet by mouth every twelve hours amoxicillin-cla vulanate (AUGMENTIN) 875-125 MG per tablet Take 1 tablet by mouth every 12 hours for 8 doses 8 tablet 0 12/19/2023 12/23/2023 Active Start: 12-16-2023 End: 12-23-2023 amoxicillin-clavulanate (AUG MENTIN) 875-125 MG per tablet 1 tablet Start: 11-01-2022 End: 11-11-2022 take 1 tablet by mouth twice daily amoxicillin-clavulanic acid (AUGMENTIN) 875-125 mg per tablet Take 1 tablet by mouth twice daily for 10 days. 20 tablet 0 11/01/2022 11/11/2022 Active Start: 03-22-2020 End: 03-29-2020 take 1 tablet by mouth twice daily Amoxicillin-Pot Clavulanate (Augmentin) 875-125 mg tablet Discontinued 1 TABLET PO TWICE A DAY 18 05March 22, 2020 4:00pm March 29, 2020 12:02am Comment on above: Take 1 tablet by tanja twice daily for 10 days. ARIPiprazole 30 mg oral tablet (20 sources) Atypical Antipsychotic Start: 01-02-20 take 1 tablet by mouth once daily ARIPiprazole (ABILIFY) 30 mg tablet Take 1 tablet by mouth once daily. 90 tablet 1 01/02/2025 Active Start: 08-26-2024 End: 11-27-2024 take 1 tablet by mouth once daily ARIPiprazole (ABILIFY) 30 MG tablet Indications: Bipolar affective disorder, remission status unspecified (HCC) Take 1 (one) tablet (30 mg total) by mouth daily . 30 tablet 2 11/27/2024 Active Start: 07-23-2024 End: 11-07-2024 take 1 tablet by mouth once daily aripiprazole 20 MG tablet Indications: Bipolar 1 disorder Take 1 tablet by mouth daily. 30 tablet 08/06/2024 11/07/2024 Discontinued (Medication Reconciliation (suppress cancel msg)) Start: 11-27-2023 ARIPiprazole ( Abilify) 15 MG tablet Start: 10-18-2023 ARIPiprazole ( ABILIFY) 10 MG tablet Start: 09-10-2019 End: 03-23-2023 take 1 tablet by mouth once daily ARIPiprazole (ABILIFY) 20 mg tablet Indications: Obstructive sleep apnea syndrome Take 1 tablet by mouth once daily. 09/10/2019 03/23/2023 Discontinued Start: 07-12-2017 End: 08-08-2019 take 20 mg by mouth once daily Aripiprazole Discontinu ed 20 MG PO DAILY July 12, 2017 9:44am August 08, 2019 10:46am End: 01-01-2025 ARIPiprazole (ABILIFY) 20 mg tablet Take 30 mg by mouth once daily. 01/01/2025 Discontinued take 1 tablet by tanja th once daily Abilify 2 mg tablet take 1 tablet by oral route every day 2 MG - Active Comment on above: Take 1 tablet by tanja th once daily. aspirin 81 mg oral tablet (20 sources) Platelet Aggregation Inhibitor, Nonsteroidal Anti-inflammatory Drug Start: 08-06-2024 End: 01-01-2025 take 1 capsule by mouth once daily aspirin 81 mg cap Take 81 mg by mouth once daily. 90 capsule 1 01/02/2025 Active Start: 12-19-2023 take 1 tablet by tanja th once daily aspirin 81 MG EC tablet Take 1 tablet by mouth daily 30 tablet 3 12/19/2023 Active Start: 12-14-2023 aspirin EC tab let 81 mg azithromycin 250 mg oral tablet (2 sources) Macrolide Antimicrobial Start: 09-13-2023 azithromycin (ZITHROMAX) 250 MG tablet benzonatate 100 mg oral capsule (1 source) Non-narcotic Antitussive Start: 09-25-2022 End: 10-05-2022 take 2 capsules by mouth three times daily as needed benzonatate (TESSALON PERLE) 100 mg capsule Indications: Viral bronchitis Take 2 capsules by mouth three times daily as needed for up to 10 days. 60 capsule 0 09/25/2022 10/05/2022 Active Comment on above: Take 2 capsules by m out three times daily as needed for up to 10 days. Blood Glucose Monitoring Suppl ([employer] Verio Flex System) w/Device Kit (20 sources) Start: 03-28-2024 Blood Glucose Monitoring Suppl ([employer] Verio Flex System) w/Device Kit 03/28/2024 Active brompheniramine maleate 0.2 mg/ml / pseudoephedrine hydrochloride 3 mg/ml oral solution (1 source) alpha-Adrenergic Agonist take 5 mL by mouth every six hours as needed brompheniramine-pse udoephedrine 1-15 MG/5ML ELIX elixir Take 5 mLs by mouth every 6 hours as needed 0 Active chlorhexidine gluconate 1.2 mg/ml mouthwash (17 sources) Start: 12-29-2013 take 15 mL by mouth twice daily chlorhexidine (PERIDEX) 0.12 % oral solution Indications: Dental caries extending into pulp , Chronic periodontitis, generalized Take 15 mL by mouth 2 times daily. 1 Bottle 3 12/29/2013 Active cholecalciferol 1.25 mg oral capsule (20 sources) Vitamin D Start: 10-12-2023 End: 10-16-2024 take 1 capsule by mouth every week Cholecalciferol (Vitamin D3) 1.25 MG (24842 UT) capsule Indications: Vitamin D deficiency Take 1 capsule by mouth once a week. 12 capsule 10/16/2024 Active Start: 10-12-2023 cholecalcifero l (Vitamin D-3) 1.25 MG (24564 UT) capsule cilostazol 100 mg oral tablet (20 sources) Phosphodiesterase 3 Inhibitor Start: 12-14-2023 End: 11-10-2024 take 1 tablet by mouth twice daily cilostazol (PLETAL) 100 mg tablet Take 1 tablet by mouth two times a day. 12/18/2023 Active cloNIDine hydrochloride 0.1 mg oral tablet (20 sources) Central alpha-2 Adrenergic Agonist Start: 10-04-2023 End: 01-01-2025 take 1 tablet by mouth once daily cloNIDine HCl (CATAPRES) 0.1 mg tablet Take 1 tablet by mouth once daily. 90 tablet 1 01/02/2025 Active Start: 10-04-2023 cloNIDine (Cat apres) 0.1 MG tablet dextromethorphan hydrobromide 1 mg/ml / guaiFENesin 20 mg/ml oral solution (2 sources) Uncompetitive H-pywzwt-I-aspartate Receptor Antagonist, Sigma-1 Agonist Start: 10-12-2023 TUSSIN DM MAX ADULT 5-100 MG/5ML LIQD diphenhydrAMINE hydrochloride 25 mg oral tablet (4 sources) Histamine-1 Receptor Antagonist Start: 12-18-2023 diphenhydrAMINE (BENADRYL) tablet 25 mg Start: 12-17-2023 End: 12-17-2023 diphenhydrAMINE (BENADRYL) t ablet 50 mg Start: 12-26-2021 take 1 capsule by mo uth three times daily Diphenhydramine Hcl (Benadryl) 25 mg capsule Active 25 MG PO THREE TIMES A DAY December 26, 2021 7:20pm doxycycline hyclate 100 mg oral tablet (20 sources) Tetracycline-class Drug Start: 10-03-2024 End: 10-10-2024 take 1 tablet by mouth twice daily doxycycline hyclate (VIBRA-TABS) 100 MG tablet Take 1 (one) tablet (100 mg total) by mouth 2 (two) times a day for 7 days . 14 tablet 10/03/2024 10/10/2024 Active Start: 09-08-2024 End: 09-18-2024 take 1 capsule by mouth twice daily doxycycline hyclate 100 MG capsule Take 1 capsule by mouth 2 times daily for 10 days. 20 capsule 09/08/2024 09/18/2024 Start: 07-21-2024 End: 07-28-2024 take 1 capsule by mouth twice daily doxycycline hyclate 100 MG capsule Indications: Cellulitis of other specified site Take 1 capsule by mouth 2 times daily for 7 days. 14 capsule 07/21/2024 07/28/2024 Active Start: 12-13-2023 End: 12-14-2023 doxycycline hyclate (VIBRAMY DARRELL) capsule 100 mg Start: 08-24-2023 End: 08-31-2023 take 1 tablet by mouth twice daily doxycycline monohydrate (ADOXA) 100 MG tablet Take 1 tablet by mouth two times a day for 7 days. 0 08/24/2023 Active Start: 03-30-2023 End: 04-09-2023 take 1 tablet by mouth twice daily doxycycline (VIBRA-TABS) 100 mg tablet Take 1 tablet by mouth twice daily for 10 days. 20 tablet 0 03/30/2023 04/09/2023 Active Start: 11-01-2022 End: 11-11-2022 take 1 tablet by mouth twice daily doxycycline (VIBRA-TABS) 100 mg tablet Take 1 tablet by mouth twice daily for 10 days. 20 tablet 0 11/01/2022 11/11/2022 Active Start: 09-25-2022 End: 10-05-2022 take 1 capsule by mouth twice daily doxycycline hyclate (VIBRAMYCIN) 100 mg capsule Indications: Breast cyst, left Take 1 capsule by mouth twice daily for 10 days. 20 capsule 0 09/25/2022 10/05/2022 Active Start: 04-19-2022 take 100 mg by mouth twice daily Doxycycline Monohydrate Active 100 MG PO TWICE A DAY April 19, 2022 12:00am Start: 03-27-2022 End: 04-01-2022 doxycycline (VIBRA-TABS) 100 mg tablet Take 1 tablet by mouth twice daily for 5 days. This is in conjunction with other doxycycline order for 5 days. Start this prescription after completing original for a total of 10 days of antibiotic treatment. 10 tablet 0 03/27/2022 04/01/2022 Active Start: 03-22-2022 End: 03-27-2022 take 1 tablet by mouth twice daily doxycycline monohydrate 100 mg tablet Take 1 tablet by mouth twice daily for 5 days. 10 tablet 0 03/22/2022 03/27/2022 Active Comment on above: Take 1 tablet by tanja th twice daily for 5 days. Take 1 tablet by tanja th twice daily for 5 days. This is in conjunction with other doxycycline order for 5 days. Start this prescription after completing original for a total of 10 days of antibiotic treatment. Take 1 capsule by mo [facility] twice daily for 10 days. Take 1 tablet by tanja th twice daily for 10 days. Take 1 tablet by tanja th two times a day for 7 days. Prescription was lost, patient is homeless, needs rx filled DULoxetine 20 mg delayed release oral capsule (10 sources) Serotonin and Norepinephrine Reuptake Inhibitor Start: End: take 1 capsule by mouth twice daily DULoxetine (CYMBALTA) 20 mg capsule Take 1 capsule by mouth two times a day. 60 capsule 2 02/12/2025 05/13/2025 Active ergocalciferol 1.25 mg oral capsule (20 sources) Provitamin D2 Compound Start: 023 End: take 1 capsule by mouth every week ergocalciferol 50,000 unit capsule (VITAMIN D2, DRISDOL) Indications: Vitamin D deficiency Take 1 capsule by mouth one time a week. 12 capsule 1 12/31/2024 Active Start: 06-26-2022 End: 03-28-2023 take 1 capsule by mouth two times weekly, then take 1 capsule by mouth two times weekly, then take 1 capsule by mouth every week ergocalciferol 50,000 unit capsule (VITAMIN D2, DRISDOL) Indications: Vitamin D deficiency Take 1 capsule by mouth two times a week. TO BE TAKEN ORALLY DIRECTED. Take 1 tablet by mouth twice weekly [id number], then decrease to 1 tablet weekly. 8 capsule 5 06/26/2022 03/28/2023 Discontinued Comment on above: Take 1 capsule by mo uth two times a week. TO BE TAKEN ORALLY DIRECTED. Take 1 tablet by mouth twice weekly [id number], then decrease to 1 tablet weekly. Take 1 capsule by mo uth one time a week. famotidine 40 mg oral tablet (20 sources) Histamine-2 Receptor Antagonist Start: 01-06-2025 End: 02-05-2025 take 1 tablet by mouth once daily at bedtime famotidine (PEPCID) 40 mg tablet Take 1 tablet by mouth daily at bedtime. 30 tablet 01/06/2025 02/05/2025 Active Start: 08-13-2024 End: 12-25-2024 take 1 tablet by mouth once daily at bedtime famotidine (PEPCID) 40 mg tablet Take 1 tablet by mouth daily at bedtime. 30 tablet 11/25/2024 12/25/2024 Active Start: 08-20-2023 End: 08-13-2024 take 1 tablet by mouth every twenty-four hours as needed famotidine (PEPCID) 20 mg tablet Take 1 tablet by mouth at bedtime as needed. 30 tablet 1 08/20/2023 08/13/2024 Discontinued Comment on above: Take 1 tablet by tanja th at bedtime as needed. fluticasone propionate 0.05 mg/actuat metered dose nasal spray (20 sources) Corticosteroid Start: 08-01-2024 End: 08-01-2025 fluticasone 50 MCG/ACT Suspension nasal spray Indications: Allergic rhinitis due to dust , Dysfunction of left eustachian tube 1 spray by Nasal route daily. 9.9 mL 11 08/01/2024 08/01/2025 Active Start: 09-28-2023 End: 08-01-2024 fluticasone 50 MCG/ACT Suspe nsion nasal spray 2 sprays by Nasal route daily. 09/28/2023 08/01/2024 Discontinued (Therapy completed) Start: 09-28-2023 fluticasone (F lonase) 50 MCG/ACT nasal spray Start: 12-26-2021 End: 08-01-2025 fluticasone (FLONASE) 50 mcg /actuation nasal spray Use 1 [place] in the nose as needed. 12/26/2021 08/01/2025 Active Start: 12-26-2021 Fluticasone Pr opionate Active 2 SPRAY INTRANASAL DAILY December 26, 2021 7:19pm folic acid 1 mg oral tablet (20 sources) Start: 03-28-2024 End: 11-10-2024 take 1 tablet by mouth once daily folic acid 1 mg tablet Take 1 tablet by mouth once daily. 03/28/2024 Active gabapentin 100 mg oral capsule (17 sources) Anti-epileptic Agent Start: 11-10-2024 End: 11-10-2024 take 1 dose by mouth once 200 mg, Oral, ONCE, 1 dose, On 11/10/24 at 2100 Start: 10-30-2024 End: 10-30-2024 take 1 dose by mouth once 600 mg, Oral, ONCE, 1 dose, On Nadja 10/30/24 at 0945, With a sip of water on arrival to [facility], Pre-op/Pre-Proc Start: 09-26-2024 End: 09-26-2024 take 1 dose by mouth once 600 mg, Oral, ONCE, 1 dose, On Sun09/26/24 at 1015, With a sip of water on arrival to [facility], Pre-op/Pre-Proc Start: 12-18-2023 gabapentin (NE URONTIN) capsule 200 mg Start: 12-18-2023 End: 11-13-2024 take 2 capsules by mouth three times daily Gabapentin 100 MG capsule Take 2 capsules by mouth 3 times daily for 7 days. 42 capsule 11/06/2024 Active Start: 12-18-2023 End: 02-01-2024 take 2 capsules by mouth once daily gabapentin (NEURONTIN) 100 MG capsule Take 2 capsules by mouth nightly for 45 days. 90 capsule 0 12/18/2023 02/01/2024 Active 12 hr guaiFENesin 600 mg extended release oral tablet (3 sources) Start: 03-22-2022 End: 03-27-2022 take 1 tablet by mouth twice daily guaiFENesin (MUCINEX) 600 mg 12 hr tablet Take 1 tablet by mouth twice daily for 5 days. 10 tablet 0 03/22/2022 03/27/2022 Active Comment on above: Take 1 tablet by tanja twice daily for 5 days. hydrocortisone 10 mg/ml vaginal cream (2 sources) Corticosteroid Start: 12-18-2023 hydrocortisone 1 % cream Apply topically 2 times daily. 30 g 1 12/18/2023 Active Start: 12-17-2023 hydrocortisone 1 % cream hydrOXYzine hydrochloride 25 mg oral tablet (20 sources) Antihistamine Start: 03-31-2025 take 1 tablet by mouth every six hours as needed hydrOXYzine HCl (ATARAX) 25 mg tablet Take 1 tablet by mouth four times a day as needed for itching/rash. 90 tablet 3 03/31/2025 Active Start: 10-20-2024 End: 11-27-2024 take 1 capsule by mouth three times daily as needed for anxiety hydrOXYzine pamoate 25 MG capsule Indications: Bipolar 1 disorder , Anxiety disorder, unspecified type Take 1 capsule by mouth 3 times daily as needed for Anxiety. 90 capsule 11/11/2024 Active Start: 10-09-2024 End: 11-27-2024 take 1 tablet by mouth three times daily as needed for anxiety hydrOXYzine (ATARAX) 50 MG tablet Indications: Anxiety Take 1 (one) tablet (50 mg total) by mouth 3 (three) times a day as needed for anxiety . 90 tablet 1 11/27/2024 Active Start: 09-30-2024 End: 10-09-2024 hydrOXYzine (ATARAX) 25 MG t ablet Indications: Anxiety Take 1 (one) tablet to 2 (two) tablets (25-50 mg total) by mouth 3 (three) times a day as needed for anxiety . 30 tablet 09/30/2024 10/09/2024 Discontinued (Reorder (Suppress CancelRx Message to Pharmacy)) Start: 08-14-2024 End: 10-09-2024 take 1 capsule by mouth three times daily as needed for anxiety hydrOXYzine pamoate 25 MG capsule Indications: Bipolar 1 disorder , Anxiety disorder, unspecified type Take 1 capsule by mouth 3 times daily as needed for Anxiety. 90 capsule 08/14/2024 Active Start: 11-27-2023 hydrOXYzine pa moate (Vistaril) 25 MG capsule Start: 04-04-2023 End: 05-04-2023 take 1 tablet by mouth every six hours as needed hydrOXYzine HCl (ATARAX) 25 mg tablet Take 1 tablet by mouth every 6 hours as needed for itching/rash. 30 tablet 1 04/04/2023 05/04/2023 Active Start: 05-29-2022 End: 04-04-2024 hydrOXYzine pamoate (VISTARI L) 50 mg capsule 05/29/2022 04/04/2024 Discontinued Start: 03-10-2022 End: 03-22-2022 take 1 capsule by mouth twice daily hydrOXYzine pamoate (VISTARIL) 50 mg capsule Take 50 mg by mouth twice daily. 0 03/10/2022 03/22/2022 Discontinued Start: 12-13-2017 End: 07-02-2019 take 50 mg by mouth twice daily Hydroxyzine Hcl Discon tinued 50 MG PO TWICE A DAY December 13, 2017 10:11am July 02, 2019 11:11am Comment on above: Take 50 mg by mouth twice daily. Take 1 tablet by tanja th every 6 hours as needed for itching/rash. ibuprofen 200 mg oral tablet (20 sources) Nonsteroidal Anti-inflammatory Drug Start: 11-13-2024 take 2 tablets by mouth three times daily Ibuprofen 200 MG tablet Take 2 tablets by mouth 3 times daily. 42 tablet 11/13/2024 Active Start: 10-30-2024 End: 11-06-2024 take 2 tablets by mouth every eight hours Ibuprofen 200 MG tablet Take 2 tablets by mouth every 8 hours for 7 days. 42 tablet 10/30/2024 Active Start: 09-26-2024 End: 10-03-2024 take 2 tablets by mouth every eight hours Ibuprofen 200 MG tablet Take 2 tablets by mouth every 8 hours for 7 days. 42 tablet 09/26/2024 Active Start: 03-18-2018 End: 07-02-2019 take 800 mg by mouth three times daily Ibuprofen Discontinued 800 MG PO THREE TIMES A DAY March 18, 2018 11:10am July 02, 2019 11:11am Start: 12-29-2013 End: 12-18-2023 take 1 tablet by mouth every six hours as needed for pain ibuprofen (MOTRIN) 600 MG tablet Indications: Dental caries extending into pulp , Chronic periodontitis, generalized Take 1 Tab by mouth every 6 hours as needed for Pain. 90 Tab 3 12/29/2013 Active Inhalational Spacing Device (1 source) Start: 09-25-2022 End: 09-25-2022 Inhalational Spacing Device Indications: Viral bronchitis 1 Device one time only for 1 dose. 1 Each 0 09/25/2022 09/25/2022 Active Comment on above: 1 Device one time on ly for 1 dose. 1 ml ketorolac tromethamine 30 mg/ml cartridge (3 sources) Nonsteroidal Anti-inflammatory Drug, Cyclooxygenase Inhibitor Start: 12-14-2023 End: 12-19-2023 ketorolac (TORADOL) injection 15 mg 50 ml magnesium sulfate 40 mg/ml injection (1 source) Start: 12-14-2023 2,000 mg, IntraVENous, at 25 mL/hr, Administer over 2 Hours, PRN, Other, Magnesium Replacement, Starting on Sun12/14/23 at 0209 Mag Lab Replacement Action 1.4-1.6 mg/dL &amp ;nbsp; 2,000 mg Total Dose Given as 1,000 mg IVPB x 2 doses or 2,000 mg IVPB x 1 dose &nbsp ; &n bsp; &nbsp ; &n bsp; &nbsp ; 1.0-1.3 mg/dL 4,000 mg Total Dose &nbsp ; &n bsp; &nbsp ; &n bsp; Given as 1,000 mg IVPB x 4 doses or 2,000 mg IVPB x 2 doses Less than 1.0 mg/dL CALL PHYSICIAN and give &nbsp ; &n bsp; &nbsp ; &n bsp; &nbsp ; 4,000 mg Total Dose &nbsp ; &n bsp; &nbsp ; &n bsp; &nbsp ; Given as 1,000 mg IVPB x 4 doses or 2,000 mg IVPB x 2 doses &nbs p;Infuse at 1,000 mg/hr Repeat Mag level next AM Protocol not for use in Patients with CrCl less than 30ml/min methylPREDNISolone (4 sources) Corticosteroid Start: 03-08-2025 End: 03-14-2025 methylPREDNISolone (MEDROL, CHANTEL,) 4 mg Dose-Pack Follow dosing instructions, take with food. 21 tablet 03/08/2025 03/14/2025 Active 24 hr metoprolol succinate 25 mg extended release oral tablet (20 sources) beta-Adrenergic Shabnam Start: 10-09-2024 End: 10-16-2024 take 1 tablet by mouth once daily at bedtime metoprolol succinate (TOPROL-XL) 25 MG 24 hr tablet Take 1 (one) tablet (25 mg total) by mouth every night at bedtime . 10/16/2024 Active miconazole nitrate 20 mg/ml vaginal cream (10 sources) Azole Antifungal Start: 12-19-2023 miconazole (MICOTIN) 2 % vaginal cream Place vaginally nightly. 1 12/19/2023 Active Start: 12-16-2023 End: 12-23-2023 miconazole (MICOTIN) 2 % vag inal cream 1 applicator Start: 08-17-2022 End: 10-18-2022 miconazole (MONISTAT) 2 % va ginal cream Indications: Vaginal yeast infection Use 1 Applicator vaginally daily at bedtime. 45 g 0 08/17/2022 10/18/2022 Discontinued (Discontinued by Patient) Comment on above: Use 1 Applicator vag inally daily at bedtime. mirtazapine 45 mg oral tablet (20 sources) Start: End: take 1 tablet by mouth once daily at bedtime mirtazapine (REMERON) 45 mg tablet Take 1 tablet by mouth daily at bedtime. 90 tablet 1 01/02/2025 Active Start: 12-18-2023 take 30 mg by mouth once daily 30 mg, Oral, NIGHTLY, First dose on Sun12/18/23 at 2100, Until Discontinued Start: 10-04-2023 mirtazapine (R emeron) 15 MG tablet Start: 10-04-2023 take 1 tablet by tanja th once daily mirtazapine (REMERON) 30 MG tablet Take 1 tablet by mouth nightly 0 10/04/2023 Active Multivitamin,Tb-Pope-Evdzjrr s (Complete Multivitamin) tablet (2 sources) Start: 07-02-2019 take 1 tablet by mouth once daily Multivitamin,Uq-Eumj-Raoarmyg (Complete Multivitamin) tablet Active 1 TABLET PO DAILY July 02, 2019 11:12am Start: 07-02-2019 take 1 tablet by tanja th once daily Multivitamin,Ve-Xzve-Lnkrdemp (Complete Multivitamin) tablet Active 1 TABLET PO DAILY July 02, 2019 12:00am 24 hr nicotine 0.583 mg/hr transdermal system (20 sources) Cholinergic Nicotinic Agonist Start: 03-14-2025 apply 1 dose transdermal route every twenty-four hours nicotine (NICODERM) 14 mg/24 hr Indications: nicotine withdrawal symptoms , smoking cessation Apply 1 patch as directed every 24 hours. Patient should start on March 14, 2025. 30 patch 03/14/2025 Active Start: 03-14-2025 apply 1 dose transde rmal route every twenty-four hours nicotine (NICODERM) 14 mg/24 hr Indications: nicotine withdrawal symptoms , smoking cessation Apply 1 patch as directed every 24 hours. Patient should start on March 14, 2025. 30 patch 03/14/2025 Active Start: 03-14-2025 apply 1 dose transde rmal route every twenty-four hours nicotine (NICODERM) 14 mg/24 hr Indications: nicotine withdrawal symptoms , smoking cessation Apply 1 patch as directed every 24 hours. Patient should start on March 14, 2025. 30 patch 03/14/2025 Active Start: 03-14-2025 apply 1 dose transde rmal route every twenty-four hours nicotine (NICODERM) 14 mg/24 hr Indications: nicotine withdrawal symptoms , smoking cessation Apply 1 patch as directed every 24 hours. Patient should start on March 14, 2025. 30 patch 03/14/2025 Active Start: 03-14-2025 apply 1 dose transde rmal route every twenty-four hours nicotine (NICODERM) 14 mg/24 hr Indications: nicotine withdrawal symptoms , smoking cessation Apply 1 patch as directed every 24 hours. Patient should start on March 14, 2025. 30 patch 03/14/2025 Active Start: 03-14-2025 apply 1 dose transde rmal route every twenty-four hours nicotine (NICODERM) 14 mg/24 hr Indications: nicotine withdrawal symptoms , smoking cessation Apply 1 patch as directed every 24 hours. Patient should start on March 14, 2025. 30 patch 03/14/2025 Active Start: 03-14-2025 apply 1 dose transde rmal route every twenty-four hours nicotine (NICODERM) 14 mg/24 hr Indications: nicotine withdrawal symptoms , smoking cessation Apply 1 patch as directed every 24 hours. Patient should start on March 14, 2025. 30 patch 03/14/2025 Active Start: 03-14-2025 apply 1 dose transde rmal route every twenty-four hours nicotine (NICODERM) 14 mg/24 hr Indications: nicotine withdrawal symptoms , smoking cessation Apply 1 patch as directed every 24 hours. Patient should start on March 14, 2025. 30 patch 03/14/2025 Active Start: 03-14-2025 apply 1 dose transde rmal route every twenty-four hours nicotine (NICODERM) 14 mg/24 hr Indications: nicotine withdrawal symptoms , smoking cessation Apply 1 patch as directed every 24 hours. Patient should start on March 14, 2025. 30 patch 03/14/2025 Active Start: 02-12-2025 apply 1 dose transde rmal route every twenty-four hours nicotine (NICODERM) 21 mg/24 hr Apply 1 patch as directed every 24 hours. 30 patch 02/12/2025 Active Start: 01-22-2024 End: 09-26-2024 apply 1 dose transdermal route every twenty-four hours Nicotine 21 MG/24HR Patch [address] 1 patch on skin every 24 hours. 01/22/2024 09/26/2024 Discontinued (Stop Taking at Discharge) nystatin 100 unt/mg topical powder (20 sources) Polyene Antifungal Start: 02-24-2025 nystatin (M YCOSTATIN) powder Apply 1 application to affected area three times a day. 60 g 02/24/2025 Active Start: 09-25-2024 End: 09-25-2025 nystatin (MYCOSTATIN) powder Apply to affected area 3 times daily . 15 g 09/25/2024 09/25/2025 Active Start: 07-21-2024 End: 09-26-2024 take 5 mL by mouth four times daily Nystatin 060180 UNIT/ML oral suspension Indications: Thrush Swish and spit 5 mL 4 times daily for 7 days. 140 mL 07/21/2024 09/26/2024 Discontinued (Stop Taking at Discharge) Start: 08-17-2023 End: 04-04-2024 nystatin (MYCOSTATIN) 100,00 0 unit/mL suspension Take 5 mL by mouth four times daily. 1tsp swish in mouth for several minutes, then swallow (or expectorate) 4 times daily until gone. 200 mL 0 08/17/2023 04/04/2024 Discontinued Start: 08-17-2023 take 5 mL by mouth f our times daily nystatin (MYCOSTATIN) 850242 UNIT/ML suspension Take 5 mLs by mouth 4 times daily 0 08/17/2023 Active Comment on above: Take 5 mL by mouth f our times daily. 1tsp swish in mouth for several minutes, then swallow (or expectorate) 4 times daily until gone. omeprazole 40 mg delayed release oral capsule (20 sources) Proton Pump Inhibitor Start: take 1 capsule by mouth once daily omeprazole (PRILOSEC) 40 mg capsule Indications: Functional dyspepsia Take 1 capsule by mouth once daily. 90 capsule 3 03/03/2025 Active Start: 08-06-2024 take 1 capsule by mo ut once daily omeprazole [address] capsule Indications: Gastroesophageal reflux disease, unspecified whether esophagitis present Take 1 capsule by mouth daily. 90 capsule 2 08/06/2024 Active Start: 02-04-2024 take 1 capsule by mo uth once daily omeprazole (PRILOSEC) 40 MG capsule Take 1 Capsule by mouth daily. 30 Capsule 3 02/04/2024 Active Start: 11-21-2023 omeprazole (Pr iLOSEC) [address] capsule Start: 11-07-2016 End: 03-03-2025 take 1 capsule by mouth once daily omeprazole (PRILOSEC) 40 mg capsule Indications: Functional dyspepsia Take 1 capsule by mouth once daily. 30 capsule 11 06/18/2023 03/03/2025 Discontinued Comment on above: Take 1 capsule by mo ut once daily. ondansetron (ZOFRAN-ODT) disintegrating tablet 4 mg (1 source) Start: 12-14-19 24 ondansetron (ZOFRAN-ODT) disintegrating tablet 4 mg 24 hr oxybutynin chloride 15 mg extended release oral tablet (20 sources) Cholinergic Muscarinic Antagonist Start: 01-29-20 25 take 1 tablet by mouth once daily oxybutynin ER (DITROPAN XL) 15 mg 24 hr Extended Rel Tab Take 1 tablet by mouth once daily. 90 tablet 1 01/28/2025 Active Start: 10-09-2024 take 1 tablet by tanja once daily oxyBUTYnin 15 MG Tab SR 24 HR Indications: Incontinence in female Take 1 tablet by mouth daily. 30 tablet 2 10/09/2024 Active Start: 10-10-2023 End: 07-21-2024 take 1 tablet by mouth once daily oxyBUTYnin 15 MG Tab SR 24 HR Indications: Incontinence in female Take 1 tablet by mouth daily. 30 tablet 2 07/21/2024 Active Start: 10-10-2023 oxybutynin XL (Ditropan-XL) 15 MG 24 hr tablet Start: 10-10-2023 oxybutynin (DI TROPAN XL) 15 MG extended release tablet Start: 07-26-2022 End: 02-12-2025 take 1 tablet by mouth once daily oxybutynin ER (DITROPAN XL) 10 mg 24 hr tablet Take 1 tablet by mouth once daily. 30 tablet 12 06/18/2023 02/12/2025 Discontinued Start: 08-17-2021 End: 07-26-2022 take 1 tablet by mouth once daily oxybutynin XL (DITROPAN XL) 5 mg 24 hr tablet Take 5 mg by mouth once daily. 09/23/2021 07/26/2022 Discontinued take 1 tablet by tanja th twice daily oxybutynin chloride 5 mg tablet take 1 tablet by oral route 2 times every day 5 MG - Active Comment on above: Take 5 mg by mouth o nce daily. Take 1 tablet by tanja th once daily. polyethylene glycol 3350 262777 mg / potassium chloride 2970 mg / sodium bicarbonate 6740 mg / sodium chloride 5860 mg / sodium sulfate 89861 mg powder for oral solution (20 sources) Osmotic Laxative Start: 01-12-2025 End: 01-12-2025 peg 3350-Electrolytes (GOLYTELY) 236-22.74-6.74 -5.86 gram suspension Indications: Screen for colon cancer Take 4,000 mL by mouth one time only for 1 dose. Refer to printed prep instructions from your provider. 4000 mL 01/12/2025 01/12/2025 Active Start: 03-13-2022 End: 10-18-2022 peg 3350-Electrolytes (GOLYT SHAYLA) 236-22.74-6.74 -5.86 gram suspension Indications: Rectal bleeding Refer to printed prep instructions from your provider. 4000 mL 07/27/2022 08/18/2022 Discontinued Comment on above: Refer to printed pre p instructions from your provider. Potassium Chloride (1 source) Start: 4 potassium chloride (KLOR-CON M) extended release tablet 40 mEq prazosin 2 mg oral capsule (20 sources) alpha-Adrenergic Shabnam Start: 4 End: 5 take 1 capsule by mouth once daily at bedtime prazosin (MINIPRESS) 2 mg cap Take 1 capsule by mouth daily at bedtime. 90 capsule 1 01/02/2025 Active pregabalin 25 mg oral capsule (9 sources) Start: 3 End: 4 pregabalin (Lyrica) 25 MG capsule rivaroxaban 20 mg oral tablet (20 sources) Factor Xa Inhibitor Start: 4 End: 5 take 1 tablet by mouth once daily rivaroxaban (XARELTO) 20 mg tablet Take 1 tablet by mouth once daily. 90 tablet 1 01/02/2025 Active Start: 12-12-2023 End: 12-18-2023 rivaroxaban 15 & 20 MG Start er Pack Take as directed on package. 1 each 0 12/12/2023 12/18/2023 Discontinued (Stop Taking at Discharge) rivaroxaban (Xar elto) 10 MG tablet Take 10 mg by mouth. Active rosuvastatin calcium 10 mg oral tablet (20 sources) HMG-CoA Reductase Inhibitor Start: 03-24-2024 End: 01-01-2025 take 1 tablet by mouth once daily rosuvastatin (CRESTOR) 10 mg tablet Take 1 tablet by mouth once daily. 90 tablet 1 01/02/2025 Active sodium chloride 0.111 meq/ml nasal solution (5 sources) Start: 12-15-2023 sodium chlorid e (OCEAN, BABY AYR) 0.65 % nasal spray 1 spray Start: 12-14-2023 take 1 dose intraven ously twice daily 5-40 mL, IntraVENous, EVERY 12 HOURS SCHEDULED (2 times per day), First dose on Sun12/14/23 at 0900, Until Discontinued For Line Patency: Peripheral IV = 5 mL; Midline or Central Line = 10 mL/lumen. If following IV push medication, administer flush at same rate as the IV push. Flush volume is determined by type of infusion therapy being given. For non-viscous solutions use: Peripheral IV = 5 mL Midline or Central Line = 10 mL/lumen For viscous solutions (i.e. blood components, parenteral nutrition, contrast media, or after obtaining blood sample) use: Peripheral IV = 10 mL Midline or Central Line = 20 mL/lumen Start: 12-14-2023 IntraVENous, a t 5-250 mL/hr, PRN, if patient receiving piggyback infusions and maintenance fluids are not ordered OR KVO fluids to protect IV site / prevent frequent line interruptions/ long duration, Starting on Sun12/14/23 at 0209 For piggyback infusion, administer at same rate as piggyback for a total of 25 mL. Enter 25 mL into dose field and piggyback rate into rate field of order. If piggyback is infusing at a rate less than 100 mL/hr, enter 25 mL into dose field and 100 mL/hr into rate field of order. For KVO fluids, enter rate of 20 mL/hr or less into rate field of order. Start: 12-14-2023 take 5-40 mL intrave nously once as needed 5-40 mL, IntraVENous, PRN, Starting on Sun12/14/23 at 0209, Until Discontinued, Line Care, After every IV line use For Line Patency: Peripheral IV = 5 mL; Midline or Central Line = 10 mL/lumen. If following IV push medication, administer flush at same rate as the IV push. Flush volume is determined by type of infusion therapy being given. For non-viscous solutions use: Peripheral IV = 5 mL Midline or Central Line = 10 mL/lumen For viscous solutions (i.e. blood components, parenteral nutrition, contrast media, or after obtaining blood sample) use: Peripheral IV = 10 mL Midline or Central Line = 20 mL/lumen Start: 12-13-2023 End: 12-13-2023 sodium chloride 0.9 % bolus 1,000 mL sulfamethoxazole 800 mg / trimethoprim 160 mg oral tablet (13 sources) Dihydrofolate Reductase Inhibitor Antibacterial, Sulfonamide Antimicrobial Start: 02-12-2025 End: 02-19-2025 take 1 tablet by mouth twice daily sulfamethoxazole-trimethoprim (BACTRIM DS) 800-160 mg per tablet Take 1 tablet by mouth two times a day for 7 days. 14 tablet 02/12/2025 02/19/2025 Active Start: 09-25-2024 End: 10-02-2024 take 1 tablet by mouth twice daily sulfamethoxazole-trimethoprim (BACTRIM DS,SEPTRA DS) 800-160 mg per tablet Take 1 (one) tablet by mouth 2 (two) times a day for 7 days . 14 tablet 09/25/2024 10/02/2024 Active Start: 09-18-2024 End: 09-23-2024 take 1 tablet by mouth twice daily Sulfamethoxazole-trimethoprim (Bactrim D S) 800-160 MG per tablet Take 1 tablet by mouth 2 times daily for 5 days. 10 tablet 09/18/2024 09/23/2024 Active Start: 11-01-2022 End: 11-08-2022 take 1 tablet by mouth twice daily sulfamethoxazole-trimethoprim (BACTRIM D S) 800-160 mg per tablet Take 1 tablet by mouth twice daily for 7 days. 14 tablet 0 11/01/2022 11/08/2022 Active Start: 10-18-2022 End: 10-28-2022 take 1 tablet by mouth twice daily sulfamethoxazole-trimethoprim (BACTRIM D S) 800-160 mg per tablet Take 1 tablet by mouth twice daily for 10 days. 20 tablet 0 10/18/2022 10/28/2022 Active Start: 12-26-2021 take 1 tablet by tanja th twice daily Sulfamethoxazole-Trimethoprim (Bactrim D s) 800-160 mg tablet Active 1 TABLET PO TWICE A DAY December 26, 2021 7:20pm Start: 06-30-2020 End: 07-14-2020 take 1 tablet by mouth twice daily Sulfamethoxazole-Trimethoprim (Bactrim D s) 800-160 mg tablet Discontinued 1 TABLET PO TWICE A DAY June 30, 2020 2:00pm July 14, 2020 12:02am Comment on above: Take 1 tablet by tanja th twice daily for 10 days. Take 1 tablet by tanja th twice daily for 7 days. tiZANidine 4 mg oral tablet (6 sources) Central alpha-2 Adrenergic Agonist Start: 11-14-2023 tiZANidine (Zanaflex) 4 MG tablet traZODone hydrochloride 50 mg oral tablet (2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 screening for suspected conditions (not mental disorders or infectious disease) (16 sources) Mammography abnormal; 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: [Other abnormal and inconclusive findings on diagnostic imaging of breast] Onset: 5 Episodic Other skin disorders (6 sources) Ingrowing toenail; 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: [Ingrowing nail] Onset: 4 11-29-2023 Episodic Other skin disorders (2 sources) Localized swelling, mass and lump, right lower limb Episodic Other skin disorders (2 sources) Dystrophia unguium; 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: [Nail dystrophy] 12-18-2024 Episodic Other skin disorders (1 source) Sebaceous cyst of skin; 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: [Sebaceous cyst] 01-01-2025 Episodic Other skin disorders (1 source) Infection of sebaceous cyst; 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: [Sebaceous cyst] 02-16-2025 Episodic Other skin disorders (1 source) Nail dystrophy; 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: [Onychodystrophy] Onset: 5 Episodic Other skin disorders (1 source) Ingrowing nail; 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: [Onychocryptosis] Onset: 5 Episodic Other skin disorders (1 source) Sebaceous cyst; 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: [Infected sebaceous cyst] Onset: 5 Episodic Other upper respiratory disease (1 source) Allergic rhinitis; 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: [Other allergic rhinitis] 08-01-2024 Chronic Other upper respiratory disease (2 sources) Other diseases of vocal cords; 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: [Other diseases of vocal cords] Onset: Episodic Other upper respiratory disease (3 sources) Dysphonia; 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: [Dysphonia] 08-01-2024 Episodic Other upper respiratory disease (1 source) Deviated nasal septum; 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: [Deviated nasal septum] 08-01-2024 Episodic Other upper respiratory disease (1 source) Nasal congestion; 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: [Nasal congestion] 08-01-2024 Episodic Other upper respiratory disease (1 source) Hypertrophy of nasal turbinates; 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: [Hypertrophy of nasal turbinates] 08-01-2024 Episodic Other upper respiratory infections (3 sources) Viral upper respiratory tract infection; 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: [Acute upper respiratory infection, unspecified] Episodic Otitis media and related conditions (2 sources) Dysfunction of left eustachian tube; 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: [Unspecified Eustachian tube disorder, left ear] 08-01-2024 Episodic Peripheral and visceral atherosclerosis (20 sources) Peripheral vascular disease, unspecified; 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: [Peripheral vascular disease, unspecified] Onset: 4 12-14-2023 Chronic Personality disorders (3 sources) Unspecified mental or behavioral problem; 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: [Unspecified mental or behavioral problem] Onset: Chronic Residual codes; unclassified (2 sources) Obstructive sleep apnea syndrome; 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: [Obstructive sleep apnea (adult) (pediatric)] 02-26-2024 Chronic Residual codes; unclassified (2 sources) Harmful pattern of use of nicotine; 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: [Tobacco use] Episodic Residual codes; unclassified (3 sources) High risk heterosexual behavior Episodic Residual codes; unclassified (3 sources) Other problems related to lifestyle Episodic Residual codes; unclassified (2 sources) Patient noncompliance - general; 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: [Medically noncompliant] 08-10-2024 Episodic Residual codes; unclassified (1 source) Postoperative state; 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: [Other specified postprocedural states] 11-01-2024 Episodic Residual codes; unclassified (2 sources) Pain; 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: [Pain, unspecified] 11-25-2024 Episodic Residual codes; unclassified (3 sources) Tobacco user; 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: [Tobacco use] 12-22-2024 Episodic Residual codes; unclassified (1 source) Tobacco use; 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: [Tobacco abuse] Onset: 5 Episodic Skin and subcutaneous tissue infections (13 sources) Infection of skin; 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: [Local infection of the skin and subcutaneous tissue, unspecified] Onset: 4 Episodic Spondylosis; intervertebral disc disorders; other back problems (1 source) Spondylosis without myelopathy or radiculopathy, lumbar region; 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: [Spondylosis without myelopathy or radiculopathy, lumbar region] Onset: 5 Chronic Spondylosis; intervertebral disc disorders; other back problems (7 sources) Chronic low back pain; 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: [Lumbago with sciatica, right side] Onset: 5 09-26-2021 Episodic Substance-related disorders (20 sources) Tobacco user; 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: [Nicotine dependence, unspecified, uncomplicated] Onset: 0 Resolved: 4 11-18-2019 Chronic Unclassified (2 sources) Atheroembolism of lower extremity (HCC) Onset: 4 Unclassified (2 sources) 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) Onset: 4 Unclassified (3 sources) Cellulitis and abscess of unspecified site; 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: [Cellulitis and abscess of unspecified site] Onset: 4 Unclassified (3 sources) Other, mixed, or unspecified nondependent drug abuse, in remission; 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: [Other, mixed, or unspecified nondependent drug abuse, in remission] Onset: 4 Unclassified (1 source) OUTSIDE CORRESPONDENCE 02-20-2024 Unclassified (2 sources) PAD (peripheral artery disease) (HCC) 12-16-2024 Unclassified (2 sources) 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 Onset: 4 Unclassified (2 sources) Post Op Visit; 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: [Post Op Visit] Onset: 4 Unclassified (1 source) Lumbar pain; 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: [Lumbar pain] Onset: 5 Past or Other Problems Problem Classification Problem Date Documented Date Episodic/Chronic Diabetes mellitus without complication (3 sources) Prediabetes; 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: [Prediabetes] Onset: 12-16-2024 08-17-2023 Episodic Inflammatory diseases of female pelvic organs (6 sources) Abscess of labia; 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: [Abscess of vulva] Onset: 09-18-2024 09-18-2024 Episodic Malaise and fatigue (11 sources) Fatigue; 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: [Other fatigue] Onset: 12-13-2023 Episodic Mood disorders (20 sources) Mood disorders Onset: 07-21-2024 Resolved: 08-25-2024 07-21-2024 Nonmalignant breast conditions (20 sources) Abscess of breast; 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: [Abscess of the breast and nipple] Onset: 08-06-2020 Episodic Nutritional deficiencies (4 sources) Cobalamin deficiency; 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: [Deficiency of other specified B group vitamins] Onset: 12-16-2024 12-16-2024 Episodic Other aftercare (4 sources) Encounter for other specified aftercare; 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: [Encounter for other specified aftercare] Onset: 11-09-2024 Episodic Other connective tissue disease (3 sources) Other bursitis of elbow, left elbow; 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: [Olecranon bursitis] Onset: 09-23-2024 09-23-2024 Episodic Other nutritional; endocrine; and metabolic disorders (20 sources) Weight gain; 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: [Abnormal weight gain] Onset: 06-23-2013 06-23-2013 Episodic Other nutritional; endocrine; and metabolic disorders (20 sources) Weight increased; 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: [Abnormal weight gain] Onset: 06-23-2013 06-23-2013 Episodic Other nutritional; endocrine; and metabolic disorders (1 source) Abnormal weight gain; 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: [Weight gain] Onset: 06-23-2013 Episodic Other skin disorders (20 sources) H/O: breast problem; 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: [Personal history of diseases of the skin and subcutaneous tissue] Onset: 12-17-2020 12-17-2020 Episodic Other skin disorders (1 source) Localized swelling, mass and lump, lower limb, bilateral; 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: [Localized swelling, mass and lump, lower limb, bilateral] Onset: 04-10-2024 Episodic Other skin disorders (1 source) Personal history of diseases of the skin and subcutaneous tissue; 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: [History of breast abscess] Onset: 12-17-2020 Episodic Other upper respiratory disease (6 sources) Lesion of vocal cord; 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: [Other diseases of vocal cords] Onset: 11-15-2023 11-15-2023 Episodic Other upper respiratory disease (20 sources) Leukoplakia of vocal cords; 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: [Other diseases of vocal cords] Onset: 11-15-2023 06-16-2024 Episodic Other upper respiratory disease (20 sources) Mass of nasopharynx; 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: [Other diseases of pharynx] Onset: 08-14-2024 08-13-2024 Episodic Residual codes; unclassified (20 sources) Family history of breast cancer; 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: [Family history of malignant neoplasm of breast] Onset: 12-17-2020 12-17-2020 Episodic Residual codes; unclassified (5 sources) Other specified postprocedural states; 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: [Other specified postprocedural states] Onset: 11-01-2024 Episodic Residual codes; unclassified (1 source) Other sleep disturbances 02-04-2024 Episodic Residual codes; unclassified (1 source) Pain, unspecified; 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: [Pain] Onset: 12-18-2024 Episodic Superficial injury; contusion (6 sources) Unspecified superficial injuries of breast, unspecified breast, initial encounter; 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: [Superficial injury of breast] Onset: 02-21-2024 Episodic Unclassified (3 sources) PREV VISIT, NEW, AGE 40-64 Onset: 02-07-2024 Unclassified (2 sources) OFFICE/OUTPATIENT VISIT, EST Onset: 02-13-2024 Unclassified (3 sources) Patient encounter status 01-01-2025 Results Test Name Value Interpretation Reference Range Facility [facility] 03-31-2025 [facility] Telephone (FAMPWS) ----- VINOD ANN ([id number]) 1975 F IPA Date Time Provider Department 03/31/25 ISATU NIETO [facility] During your visit today, we recorded the following information about you: Melita Klein LPN 03/31/2025 12:28 PM Signed Pt calls to request a refill for hydroxyzine 100 mg bid. Did not see this on pt's current med list. On med hx there is an entry for hydroxyzine 25 mg q 6 hrs dated 04/04/23. Pt reports a therapist she went to prescribed this for her but pt is asking if Dr. Nieto will take over. Therapist is Brando Cid in [place]. Please review and advise. ZULEMA Corral Chitra, MD 03/31/2025 6:00 PM Signed Rx as requested Regards, Miller Bronson MD, RN 04/01/2025 12:44 PM Signed Patient calls to check on status of request below. Notified prescription was sent to [facility]. Miller Lee RN Allergies As of Date: 03/31/2025 Noted Allergy Reaction CEPHALEXIN 02/26/2018 4 - Hives 6 - Diarrhea FENOFIBRATE 08/31/2019 14 - Other: See Comments Comments: Hives with GI upset (emesis) ZOLOFT (SERTRALINE HCL) 06/23/2013 4 - Hives 6 - Diarrhea ZYPREXA (OLANZAPINE) 04/04/2024 1 - Mental Status Change 4 - Hives CLINDAMYCIN 09/29/2019 4 - Hives Comments: States has take since with no issue 08/06/20. Elba Broussard MA Date Reviewed: 03/09/2025 Reviewed by: Valerie Hernandez APRN.HAND SCRAPER - Fully Assessed Reason for Visit: Medication Question [1478] Order(s):hydrOXYzine HCl (ATARAX) 25 mg tabletTake 1 tablet by mouth four times a day as needed for itching/rash.Disp: 90 tabletRfl: 3 Prescriptions as of 04/01/2025 - hydrOXYzine HCl (ATARAX) 25 mg tablet Take 1 tablet by mouth four times a day as needed for itching/rash. - omeprazole (PRILOSEC) 40 mg capsule Take 1 capsule by mouth once daily. - amLODIPine (NORVASC) 5 mg tablet Take 1 tablet by mouth once daily. - nystatin (MYCOSTATIN) powder Apply 1 application to affected area three times a day. - DULoxetine (CYMBALTA) 20 mg capsule Take 1 capsule by mouth two times a day. - nicotine (NICODERM) 21 mg/24 hr Apply 1 patch as directed every 24 hours. - nicotine (NICODERM) 14 mg/24 hr Apply 1 patch as directed every 24 hours. Patient should start on March 14, 2025. - oxybutynin ER (DITROPAN XL) 15 mg 24 hr Extended Rel Tab Take 1 tablet by mouth once daily. - acetaminophen (TYLENOL EXTRA STRENGTH) 500 mg tablet Take 1,000 mg by mouth every 8 hours as needed for pain. - aspirin 81 mg cap Take 81 mg by mouth once daily. - prazosin (MINIPRESS) 2 mg cap Take 1 capsule by mouth daily at bedtime. - mirtazapine (REMERON) 45 mg tablet Take 1 tablet by mouth daily at bedtime. - rosuvastatin (CRESTOR) 10 mg tablet Take 1 tablet by mouth once daily. - cloNIDine HCl (CATAPRES) 0.1 mg tablet Take 1 tablet by mouth once daily. - ARIPiprazole (ABILIFY) 30 mg tablet Take 1 tablet by mouth once daily. - rivaroxaban (XARELTO) 20 mg tablet Take 1 tablet by mouth once daily. - ergocalciferol 50,000 unit capsule (VITAMIN D2, DRISDOL) Take 1 capsule by mouth one time a week. - cilostazol (PLETAL) 100 mg tablet Take 1 tablet by mouth two times a day. - folic acid 1 mg tablet Take 1 tablet by mouth once daily. - fluticasone (FLONASE) 50 mcg/actuation nasal spray Use 1 [place] in the nose as needed. - albuterol HFA (PROVENTIL HFA, VENTOLIN HFA) 90 mcg/actuation inhaler Inhale 2 Puffs as instructed every 6 hours as needed. 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 Encounter Status:Closed by MILLER LEE on 04/01/25 [facility] CNOVon 03-09-2025 CNOV Office Visit (PULMWS ) ----- VINOD ANN ([id number]) 1975 F Date Time Provider Department 03/09/25 1:30 PM VALERIE HERNANDEZ During your visit today, we recorded the following information about you: Pulse Respiration Blood pressure Weight 116/minute 17/minute 126/82 103.9 kg Valerie Hernandez APRN.HAND SCRAPER 03/09/2025 3:17 PM Signed LUNG SCREENING VISIT PRIMARY CARE PHYSICIAN: Isatu Nieto MD PULMONARY PROVIDER: none Results will be communicated via letter or electronic record if applicable. Visit Delivery: In Person Patient Visit Type: New to Screening Current or Ex-smoker? [Current Exam Type: baseline LDCT Number of Pack Years: 76 Current smoker (=0) REQUESTER: The referring provider advised the patient to have screening. HISTORY OF PRESENT ILLNESS: Vinod Ann is a 50 year old Active smoker who presents for lung screening. Last COVID 2 years ago. 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 On pepcid and the ENT said it looked better. Respiratory symptoms include: SOB: Yes with stairs, and some with bathing and dressing Chest tightness: No Coughing: Yes: With mucus Clear Hemoptysis: No Wheezing: Yes Fever/Chills: No Recent Respiratory Infection: No Unintentional weight loss: No Last 6 Encounter Wt Readings: Date: Wt: 03/09/2025 103.9 kg (229 lb) 03/08/2025 104.2 kg (229 lb 11.5 oz) 02/16/2025 103.4 kg (228 lb) 02/12/2025 102.2 kg (225 lb 6.4 oz) 01/12/2025 105 kg (231 lb 6.4 oz) 01/01/2025 101.6 kg (224 lb) ECOG PERFORMANCE STATUS: 0- Fully active, able to carry on all pre-disease performance w/o restriction. Modified Medical [employer] [place] Dyspnea Scale (MMRC) I only get breathless with strenous exercise 0 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 , did have small relapse 02/15 with of mother Severe episode of recurrent major depressive disorder, without psychotic features ([facility]) Kendra RITTRE (stress urinary incontinence, female) Suicidal ideation PAST SURGICAL HISTORY Procedure Laterality Date ABDOMINAL SURGERY HX BREAST SURGERY HX BX OF BREAST; INCISIONAL Left 08/29/2019 [facility]- Benign COLONOSCOPY 09/22/2022 COLONOSCOPY FLX DX W/COLLJ SPEC WHEN PFRMD 12/01/2019 Colonoscopy PAST SURGICAL HISTORY OF 03/2010 gall bladder removed PAST SURGICAL HISTORY OF Left wrist surgery when she was 15 years old PAST SURGICAL HISTORY OF 2013 tubal ligation PAST SURGICAL HISTORY OF 02/2022 bilateral cyst removed, [place] FAMILY HISTORY Problem Relation Age of Onset Lung Cancer Mother at 63 Osteoporosis Mother Alcohol/Drug Mother alcohol Hypertension Father Alcohol/Drug Father alcohol Aneurysm Father abdominal Prostate Cancer Father Alcohol/Drug Sister drugs other (Aids) Sister drug user Aneurysm Sister head Breast Cancer Paternal Grandmother late 50's or 60's Alcohol/Drug Niece Ovarian cancer Niece diagnosed young methylPREDNISolone (MEDROL, CHANTEL,) 4 mg Dose-Pack Follow dosing instructions, take with food. omeprazole (PRILOSEC) 40 mg capsule Take 1 capsule by mouth once daily. amLODIPine (NORVASC) 5 mg tablet Take 1 tablet by mouth once daily. nystatin (MYCOSTATIN) powder Apply 1 application to affected area three times a day. DULoxetine (CYMBALTA) 20 mg capsule Take 1 capsule by mouth two times a day. nicotine (NICODERM) 21 mg/24 hr Apply 1 patch as directed every 24 hours. [START ON 03/14/2025] nicotine (NICODERM) 14 mg/24 hr Apply 1 patch as directed every 24 hours. Patient should start on March 14, 2025. oxybutynin ER (DITROPAN XL) 15 mg 24 hr Extended Rel Tab Take 1 tablet by mouth once daily. acetaminophen (TYLENOL EXTRA STRENGTH) 500 mg tablet Take 1,000 mg by mouth every 8 hours as needed for pain. aspirin 81 mg cap Take 81 mg by mouth once daily. prazosin (MINIPRESS) 2 mg cap Take 1 capsule by mouth daily at bedtime. mirtazapine (REMERON) 45 mg tablet Take 1 tablet by mouth daily at bedtime. rosuvastatin (CRESTOR) 10 mg tablet Take 1 tablet by mouth once daily. cloNIDine HCl (CATAPRES) 0.1 mg tablet Take 1 tablet by mouth once daily. ARIPiprazole (ABILIFY) 30 mg tablet Take 1 tablet by mouth once daily. rivaroxaban (XARELTO) 20 mg tablet Take 1 tablet by mouth once daily. ergocalciferol 50,000 unit capsule (VITAMIN D2, DRISDOL) Ta (more content not included)... Normal [facility] XR LUMBAR 3V AP/LAT/L5-S1on 03-09-2025 XR LUMBAR 3V AP/LAT/L5-S1 * * *Final Report* * * DATE OF EXAM: Mar 09 2025 3:01PM [id number] - XR LUMBAR 3V AP/LAT/L5-S1 / PROCEDURE REASON: Lumbar pain * * * * Physician Interpretation * * * * TITLE: XR LUMBAR 3V AP/LAT/L5-S1 CLINICAL INDICATION: Back pain TECHNIQUE: 3 view radiographic study of the lumbar spine COMPARISON: Radiograph dated 09/26/2021 FINDINGS: There are 5 nonrib-bearing lumbar vertebral bodies. Preservation of vertebral body heights. Miniscule marginal osteophyte formation throughout the lumbar spine. Mild L4/L5 disc space narrowing. Moderate L5/S1 disc space narrowing. Facet joint arthrosis which appears most pronounced at L3/L4, L4/L5 and L5/S1. No spondylolisthesis. Atherosclerotic calcification of the vasculature. Right-sided surgical clips. IMPRESSION: Degenerative changes as described without significant interval change Insulation Batting Machine Operator: [facility] Transcribe Date/Time: Mar 09 2025 3:03P Dictated by : MARGARITA PICKARD MD This examination was interpreted and the report reviewed and electronically signed by: MARGARITA PICKARD MD on Mar 09 2025 3:05PM EST [id number] Normal [facility] XR Lumbar spine 3 Viewson IMPRESSION: Degenerative changes as described without significant interval change Insulation Batting Machine Operator: [facility] Transcribe Date/Time: Mar 09 2025 3:03P Dictated by : MARGARITA PICKARD MD This examination was interpreted and the report reviewed and electronically signed by: MARGARITA PICKARD MD on Mar 09 2025 3:05PM EST DIVISION OF RADIOLOGY * * *Final Report* * * DATE OF EXAM: Mar 09 2025 3:01PM [id number] - XR LUMBAR 3V AP/LAT/L5-S1 / PROCEDURE REASON: Lumbar pain * * * * Physician Interpretation * * * * TITLE: XR LUMBAR 3V AP/LAT/L5-S1 CLINICAL INDICATION: Back pain TECHNIQUE: 3 view radiographic study of the lumbar spine COMPARISON: Radiograph dated 09/26/2021 FINDINGS: There are 5 nonrib-bearing lumbar vertebral bodies. Preservation of vertebral body heights. Miniscule marginal osteophyte formation throughout the lumbar spine. Mild L4/L5 disc space narrowing. Moderate L5/S1 disc space narrowing. Facet joint arthrosis which appears most pronounced at L3/L4, L4/L5 and L5/S1. No spondylolisthesis. Atherosclerotic calcification of the vasculature. Right-sided surgical clips. DIVISION OF RADIOLOGY Provider, [facility] - 03/09/2025 * * *Final Report* * * DATE OF EXAM: Mar 09 2025 3:01PM [id number] - XR LUMBAR 3V AP/LAT/L5-S1 / PROCEDURE REASON: Lumbar pain * * * * Physician Interpretation * * * * TITLE: XR LUMBAR 3V AP/LAT/L5-S1 CLINICAL INDICATION: Back pain TECHNIQUE: 3 view radiographic study of the lumbar spine COMPARISON: Radiograph dated 09/26/2021 FINDINGS: There are 5 nonrib-bearing lumbar vertebral bodies. Preservation of vertebral body heights. Miniscule marginal osteophyte formation throughout the lumbar spine. Mild L4/L5 disc space narrowing. Moderate L5/S1 disc space narrowing. Facet joint arthrosis which appears most pronounced at L3/L4, L4/L5 and L5/S1. No spondylolisthesis. Atherosclerotic calcification of the vasculature. Right-sided surgical clips. IMPRESSION IMPRESSION: Degenerative changes as described without significant interval change Insulation Batting Machine Operator: PSC[facility] Transcribe Date/Time: Mar 09 2025 3:03P Dictated by : MARGARITA PICKARD MD This examination was interpreted and the report reviewed and electronically signed by: MARGARITA PICKARD MD on Mar 09 2025 3:05PM EST [facility] Radiology Study observation (narrative) [facility] XR Lumbar spine 3 ViewsOrder ed By: [facility] Provider on 03-09-2025 [facility] CNOVon 03-08-2025 CNOV Office Visit (UCWSTR ) ----- ANNVINOD ([id number]) 1975 F Date Time Provider Department 03/08/25 11:15 AM [facility] During your visit today, we recorded the following information about you: Temperature Pulse Respiration Blood pressure 99.6 degrees 124/minute 16/minute 142/82 Weight Height 104.2 kg 1.676 m Liset Valdez PA 03/08/2025 11:31 AM Signed [facility] Subjective Vinod Paris Seth is a 50 year old female. Patient presents with: Same Day Appointment: left lower back pain, twisted at work yesterday and had a shooting pain. Patient sees pain management at [facility] HPI 50-year-old female presents for left-sided low back pain. Patient states she has had low back pain for several months. She states that she has seen pain management and she thinks she might of had an MRI, but not sure. She states that they recommended physical therapy, but she has not started it yet. Reports yesterday she was reaching for something and felt a pull in her left side low back. She states that she is having left-sided low back pain and left buttocks and left leg pain worsened since yesterday. She has taken Tylenol with minimal improvement. She has not prescribed anything by her pain doctor. She denies any bowel or bladder dysfunction. No urinary symptoms. No fever. No history of cancer. 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 , did have small relapse 02/15 with of mother Severe episode of recurrent major depressive disorder, without psychotic features ([facility]) Kendra RITTER (stress urinary incontinence, female) Suicidal ideation PAST SURGICAL HISTORY Procedure Laterality Date ABDOMINAL SURGERY HX BREAST SURGERY HX BX OF BREAST; INCISIONAL Left 08/29/2019 [place] [facility]- Benign COLONOSCOPY 09/22/2022 COLONOSCOPY FLX DX W/COLLJ SPEC WHEN PFRMD 12/01/2019 Colonoscopy PAST SURGICAL HISTORY OF 03/2010 gall bladder removed PAST SURGICAL HISTORY OF Left wrist surgery when she was 15 years old PAST SURGICAL HISTORY OF 2014 tubal ligation PAST SURGICAL HISTORY OF 02/2022 [facility] ALLERGIES Cephalexin, Fenofibrate, Zoloft [Sertraline Hcl], Zyprexa [Olanzapine], and Clindamycin MEDICATIONS omeprazole (PRILOSEC) 40 mg capsule Take 1 capsule by mouth once daily. amLODIPine (NORVASC) 5 mg tablet Take 1 tablet by mouth once daily. nystatin (MYCOSTATIN) powder Apply 1 application to affected area three times a day. DULoxetine (CYMBALTA) 20 mg capsule Take 1 capsule by mouth two times a day. nicotine (NICODERM) 21 mg/24 hr Apply 1 patch as directed every 24 hours. [START ON 03/14/2025] nicotine (NICODERM) 14 mg/24 hr Apply 1 patch as directed every 24 hours. Patient should start on March 14, 2025. oxybutynin ER (DITROPAN XL) 15 mg 24 hr Extended Rel Tab Take 1 tablet by mouth once daily. acetaminophen (TYLENOL EXTRA STRENGTH) 500 mg tablet Take 1,000 mg by mouth every 8 hours as needed for pain. aspirin 81 mg cap Take 81 mg by mouth once daily. prazosin (MINIPRESS) 2 mg cap Take 1 capsule by mouth daily at bedtime. mirtazapine (REMERON) 45 mg tablet Take 1 tablet by mouth daily at bedtime. rosuvastatin (CRESTOR) 10 mg tablet Take 1 tablet by mouth once daily. cloNIDine HCl (CATAPRES) 0.1 mg tablet Take 1 tablet by mouth once daily. ARIPiprazole (ABILIFY) 30 mg tablet Take 1 tablet by mouth once daily. rivaroxaban (XARELTO) 20 mg tablet Take 1 tablet by mouth once daily. ergocalciferol 50,000 unit capsule (VITAMIN D2, DRISDOL) Take 1 capsule by mouth one time a week. cilostazol (PLETAL) 100 mg tablet Take 1 tablet by mouth two times a day. folic acid 1 mg tablet Take 1 tablet by mouth once daily. fluticasone (FLONASE) 50 mcg/actuation nasal spray Use 1 [place] in the nose as needed. albuterol HFA (PROVENTIL HFA, VENTOLIN HFA) 90 mcg/actuation inhaler Inhale 2 Puffs as instructed every 6 hours as needed. methylPREDNISolone (MEDROL, CHANTEL,) 4 mg Dose-Pack Follow dosing instructions, take with food. FAMILY HISTORY Problem Relation Age of Onset Lung Cancer Mother at 63 Osteoporosis Mother Alcohol/Drug Mother alcohol Hypertension Father Alcohol/Drug Father alcohol Aneurysm Father abdominal Prostate Cancer Father Alcohol/Drug Sister drugs other (Aids) Sister (more content not included)... Normal [facility] CNOVon 02-26-2025 CNOV Office Visit (PODIWS ) ----- VINOD ANN ([id number]) 1975 F Date Time Provider Department 02/26/25 10:15 AM TORRI PATEL During your visit today, we recorded the following information about you: Liana Polanco LPN 02/26/2025 12:38 PM Signed AMB ROOMING INTAKE FLOWSHEET DATA Pain Pain Level: 5 Pain Location: Toe Description: Sore Duration Amount of Time: 2 Duration Units: Weeks Frequency: Intermittent Intervention/Comfort measure: Relaxation, Reposition Patient presents with: Left Foot - Pain, Established Patient, Diabetic Foot Care, Ingrown Toenail Right Foot - Pain, Established Patient, Diabetic Foot Care, Ingrown Toenail ZULEMA Leonardo Matthew 02/26/2025 12:38 PM Signed Subjective Vinod is a 50-year-old female with a history of PAD, presenting for evaluation of bilateral ingrown toenails. Ingrown Toenails: - Severe thickening and ingrown toenails on bilateral hallux. - Previous trimming provided temporary relief. - Unable to trim nails herself due to thickness. - Denies fungal infection; tested negative for fungus three times. - History of partial nail removal in the past. Peripheral Arterial Disease: - History of PAD; previously recommended for surgery but declined due to work commitments. - Concerns about potential toe amputation. - Previous blood clot in foot and leg. - Underwent circulation study in January 2025; ABIs were normal on both sides (right: 1.08, left: 1.10-1.12). - Toe pressures: right 0.63, left 0.88. - On blood thinners. - Former smoker. Musculoskeletal: (+) bunion pain (right foot), (+) toe pain (bilateral) Skin: (+) painful thick toenails (bilateral) 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 60 g 0 DULoxetine (CYMBALTA) 20 mg capsule Take 1 capsule by mouth two times a day. 60 capsule 2 nicotine (NICODERM) 21 mg/24 hr Apply 1 patch as directed every 24 hours. 30 patch 0 [START ON 03/14/2025] nicotine (NICODERM) 14 mg/24 hr Apply 1 patch as directed every 24 hours. Patient should start on March 14, 2025. 30 patch 0 oxybutynin ER (DITROPAN XL) 15 mg 24 hr Extended Rel Tab Take 1 tablet by mouth once daily. 90 tablet 1 acetaminophen (TYLENOL EXTRA STRENGTH) 500 mg tablet Take 1,000 mg by mouth every 8 hours as needed for pain. aspirin 81 mg cap Take 81 mg by mouth once daily. 90 capsule 1 prazosin (MINIPRESS) 2 mg cap Take 1 capsule by mouth daily at bedtime. 90 capsule 1 mirtazapine (REMERON) 45 mg tablet Take 1 tablet by mouth daily at bedtime. 90 tablet 1 rosuvastatin (CRESTOR) 10 mg tablet Take 1 tablet by mouth once daily. 90 tablet 1 cloNIDine HCl (CATAPRES) 0.1 mg tablet Take 1 tablet by mouth once daily. 90 tablet 1 ARIPiprazole (ABILIFY) 30 mg tablet Take 1 tablet by mouth once daily. 90 tablet 1 rivaroxaban (XARELTO) 20 mg tablet Take 1 tablet by mouth once daily. 90 tablet 1 ergocalciferol 50,000 unit capsule (VITAMIN D2, DRISDOL) Take 1 capsule by mouth one time a week. 12 capsule 1 cilostazol (PLETAL) 100 mg tablet Take 1 tablet by mouth two times a day. folic acid 1 mg tablet Take 1 tablet by mouth once daily. fluticasone (FLONASE) 50 mcg/actuation nasal spray Use 1 [place] in the nose as needed. albuterol HFA (PROVENTIL HFA, VENTOLIN HFA) 90 mcg/actuation inhaler Inhale 2 Puffs as instructed every 6 hours as needed. amLODIPine (NORVASC) 2.5 mg tablet Take 1 tablet by mouth once daily. 30 tablet 1 omeprazole (PRILOSEC) 40 mg capsule Take 1 capsule by mouth once daily. 30 capsule 11 No current facility-administered medications for this visit. ALLERGIES Allergen Reactions Cephalexin Hives, Diarrhea Fenofibrate Other: See Comments Hives with GI upset (emesis) Zoloft [Sertraline * Hives, Diarrhea Zyprexa [Olanzapine] Mental Status Change, Hives Clindamycin Hives States has take since with no issue 08/06/20. Elba Broussard MA Objective Last menstrual period 08/06/2020. - Cardiovascu (more content not included)... Normal [facility] 02-25-2025 CNPN Telephone (INTMWS) ----- VINOD ANN ([id number]) 1975 F Date Time Provider Department 02/25/25 ISATU NIETO During your visit today, we recorded the following information about you: Amanda Lezama RN 02/25/2025 12:45 PM Signed Pt phoned to report she is taking xarelto daily and pletal twice a day for artery disease. Pt asking pcp if she can have a couple alcohol drinks every once in a while while taking these medications. Advised patient alcohol thins the blood as well as xarelto and it is probably not a good idea to drink alcohol. Pt asking pcp if she stops the medication for a couple days can she drink alcohol? Please advise patient. Claudia Kincaid LPN 02/25/2025 1:07 PM Signed Patient calling back the [facility] she wants to go to is at 4 pm today. She is wanting to drink a few beers if she can with her blood thinner medications? Isatu Nieto MD 02/26/2025 4:14 PM Signed I do not think it is a good idea to drink with those 2 medications being on board. Regards, Isatu Nieto MD Allergies As of Date: 02/25/2025 Noted Allergy Reaction CEPHALEXIN 02/26/2018 4 - Hives 6 - Diarrhea FENOFIBRATE 08/31/2019 14 - Other: See Comments Comments: Hives with GI upset (emesis) ZOLOFT (SERTRALINE HCL) 06/23/2013 4 - Hives 6 - Diarrhea ZYPREXA (OLANZAPINE) 04/04/2024 1 - Mental Status Change 4 - Hives CLINDAMYCIN 09/29/2019 4 - Hives Comments: States has take since with no issue 08/06/20. Elba Broussard MA Date Reviewed: 02/16/2025 Reviewed by: Po Mckeon LPN - Fully Assessed Reason for Visit: Patient Question [3467] Prescriptions as of 02/27/2025 - nystatin (MYCOSTATIN) powder Apply 1 application to affected area three times a day. - DULoxetine (CYMBALTA) 20 mg capsule Take 1 capsule by mouth two times a day. - nicotine (NICODERM) 21 mg/24 hr Apply 1 patch as directed every 24 hours. - nicotine (NICODERM) 14 mg/24 hr Apply 1 patch as directed every 24 hours. Patient should start on March 14, 2025. - oxybutynin ER (DITROPAN XL) 15 mg 24 hr Extended Rel Tab Take 1 tablet by mouth once daily. - acetaminophen (TYLENOL EXTRA STRENGTH) 500 mg tablet Take 1,000 mg by mouth every 8 hours as needed for pain. - aspirin 81 mg cap Take 81 mg by mouth once daily. - prazosin (MINIPRESS) 2 mg cap Take 1 capsule by mouth daily at bedtime. - mirtazapine (REMERON) 45 mg tablet Take 1 tablet by mouth daily at bedtime. - rosuvastatin (CRESTOR) 10 mg tablet Take 1 tablet by mouth once daily. - cloNIDine HCl (CATAPRES) 0.1 mg tablet Take 1 tablet by mouth once daily. - ARIPiprazole (ABILIFY) 30 mg tablet Take 1 tablet by mouth once daily. - rivaroxaban (XARELTO) 20 mg tablet Take 1 tablet by mouth once daily. - ergocalciferol 50,000 unit capsule (VITAMIN D2, DRISDOL) Take 1 capsule by mouth one time a week. - cilostazol (PLETAL) 100 mg tablet Take 1 tablet by mouth two times a day. - folic acid 1 mg tablet Take 1 tablet by mouth once daily. - fluticasone (FLONASE) 50 mcg/actuation nasal spray Use 1 [place] in the nose as needed. - albuterol HFA (PROVENTIL HFA, VENTOLIN HFA) 90 mcg/actuation inhaler Inhale 2 Puffs as instructed every 6 hours as needed. - amLODIPine (NORVASC) 2.5 mg tablet Take 1 tablet by mouth once daily. - omeprazole (PRILOSEC) 40 mg capsule Take 1 capsule by mouth once daily. Problem List As Of Date 02/25/2025 Noted Resolved GERD (gastroesophageal reflux disease) [K21.9] 06/23/2013 Weight gain [R63.5] 06/23/2013 Other and unspecified hyperlipidemia [E78.5] 11/20/2014 Obesity (BMI 30-39.9) [E66.9] 11/20/2014 Anxiety state, unspecified [F41.1] 11/20/2014 Tobacco use disorder [F17.200] 11/18/2019 Breast abscess [N61.1] 08/06/2020 History of breast abscess [Z87.2] 12/17/2020 Family history of breast cancer [Z80.3] 12/17/2020 Breast mass, left [N63.20] 12/06/2021 Nipple discharge [N64.52] 12/06/2021 Alcohol abuse, in remission [F10.11] 03/24/2022 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HCC) [F19.11] 03/24/2022 Urinary incontinence, nocturnal enuresis [N39.4*01/01/2025 Mixed stress and urge urinary incontinence [N39*01/01/2025 PAD (peripheral artery disease) [I73.9] 02/12/2025 Fibromyalgia [M79.7] 02/12/2025 Encounter Status:Closed by VIVIENNE NEWMAN on 02/27/25 [facility] 02-23-2025 [facility] Telephone (INTMWS) ----- VINOD ANN ([id number]) 1975 F Date Time Provider Department 02/23/25 ISATU NIETO INTWS During your visit today, we recorded the following information about you: Amanda Lezama RN 02/23/2025 12:41 PM Signed Patient reports she saw pcp on 02/12/25 and has since developed a yeast rash at top of leg/groin area, where her legs rub together. Asking if pcp can send an Rx for nystatin powder to [facility]? Pended Rx Please advise patient. Isatu Nieto MD 02/24/2025 8:43 AM Signed Filed the medication Regards, Robb Borjas MD, MA 02/24/2025 9:26 AM Signed The following approved medication requests have been transmitted electronically. Requested Prescriptions Signed Prescriptions Disp Refills nystatin (MYCOSTATIN) powder 60 g 0 Sig: Apply 1 application to affected area three times a day. Authorizing Provider: ISATU NIETO MA Allergies As of Date: 02/23/2025 Noted Allergy Reaction CEPHALEXIN 02/26/2018 4 - Hives 6 - Diarrhea FENOFIBRATE 08/31/2019 14 - Other: See Comments Comments: Hives with GI upset (emesis) ZOLOFT (SERTRALINE HCL) 06/23/2013 4 - Hives 6 - Diarrhea ZYPREXA (OLANZAPINE) 04/04/2024 1 - Mental Status Change 4 - Hives CLINDAMYCIN 09/29/2019 4 - Hives Comments: States has take since with no issue 08/06/20. Elba Broussard MA Date Reviewed: 02/16/2025 Reviewed by: Po Mckeon LPN - Fully Assessed Reason for Visit: Patient Question [1477] Order(s):nystatin (MYCOSTATIN) powderApply 1 application to affected area three times a day.Disp: 60 gRfl: 0 Prescriptions as of 02/24/2025 - nystatin (MYCOSTATIN) powder Apply 1 application to affected area three times a day. - DULoxetine (CYMBALTA) 20 mg capsule Take 1 capsule by mouth two times a day. - nicotine (NICODERM) 21 mg/24 hr Apply 1 patch as directed every 24 hours. - nicotine (NICODERM) 14 mg/24 hr Apply 1 patch as directed every 24 hours. Patient should start on March 14, 2025. - oxybutynin ER (DITROPAN XL) 15 mg 24 hr Extended Rel Tab Take 1 tablet by mouth once daily. - acetaminophen (TYLENOL EXTRA STRENGTH) 500 mg tablet Take 1,000 mg by mouth every 8 hours as needed for pain. - aspirin 81 mg cap Take 81 mg by mouth once daily. - prazosin (MINIPRESS) 2 mg cap Take 1 capsule by mouth daily at bedtime. - mirtazapine (REMERON) 45 mg tablet Take 1 tablet by mouth daily at bedtime. - rosuvastatin (CRESTOR) 10 mg tablet Take 1 tablet by mouth once daily. - cloNIDine HCl (CATAPRES) 0.1 mg tablet Take 1 tablet by mouth once daily. - ARIPiprazole (ABILIFY) 30 mg tablet Take 1 tablet by mouth once daily. - rivaroxaban (XARELTO) 20 mg tablet Take 1 tablet by mouth once daily. - ergocalciferol 50,000 unit capsule (VITAMIN D2, DRISDOL) Take 1 capsule by mouth one time a week. - cilostazol (PLETAL) 100 mg tablet Take 1 tablet by mouth two times a day. - folic acid 1 mg tablet Take 1 tablet by mouth once daily. - fluticasone (FLONASE) 50 mcg/actuation nasal spray Use 1 [place] in the nose as needed. - albuterol HFA (PROVENTIL HFA, VENTOLIN HFA) 90 mcg/actuation inhaler Inhale 2 Puffs as instructed every 6 hours as needed. - amLODIPine (NORVASC) 2.5 mg tablet Take 1 tablet by mouth once daily. - omeprazole (PRILOSEC) 40 mg capsule Take 1 capsule by mouth once daily. Problem List As Of Date 02/23/2025 Noted Resolved GERD (gastroesophageal reflux disease) [K21.9] 06/23/2013 Weight gain [R63.5] 06/23/2013 Other and unspecified hyperlipidemia [E78.5] 11/20/2014 Obesity (BMI 30-39.9) [E66.9] 11/20/2014 Anxiety state, unspecified [F41.1] 11/20/2014 Tobacco use disorder [F17.200] 11/18/2019 Breast abscess [N61.1] 08/06/2020 History of breast abscess [Z87.2] 12/17/2020 Family history of breast cancer [Z80.3] 12/17/2020 Breast mass, left [N63.20] 12/06/2021 Nipple discharge [N64.52] 12/06/2021 Alcohol abuse, in remission [F10.11] 03/24/2022 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HCC) [F19.11] 03/24/2022 Urinary incontinence, nocturnal enuresis [N39.4*01/01/2025 Mixed stress and urge urinary incontinence [N39*01/01/2025 PAD (peripheral artery disease) [I73.9] 02/12/2025 Fibromyalgia [M79.7] 02/12/2025 Prescriptions ordered this encounter Disp Refills Start End NYSTATIN 100,000 UNIT/GRAM TOPICAL P* 60 g 0 02/24/2025 Route: TOPICAL Sig: Apply 1 application to affected area three times a day. Encounter Status:[facility] ----- VINOD ANN ([id number]) 1975 F Date Time Provider Department 02/17/25 ISATU NIETO INTWS During your visit today, we recorded the following information about you: Miller Lee RN 02/17/2025 9:25 AM Signed Patient calls to request refill of aspirin 81 mg daily. Patient should have refill on file at [facility]. Patient reports [facility] said they didn't have a current prescription on file. Order sent on 01/02/2025. Call placed to [facility] and message left to refill prescription on file. [facility] to call back and ask for triage nurse if anything further is needed. Closing TE. Nothing further needed at this time. Miller Lee RN Allergies As of Date: 02/17/2025 Noted Allergy Reaction CEPHALEXIN 02/26/2018 4 - Hives 6 - Diarrhea FENOFIBRATE 08/31/2019 14 - Other: See Comments Comments: Hives with GI upset (emesis) ZOLOFT (SERTRALINE HCL) 06/23/2013 4 - Hives 6 - Diarrhea ZYPREXA (OLANZAPINE) 04/04/2024 1 - Mental Status Change 4 - Hives CLINDAMYCIN 09/29/2019 4 - Hives Comments: States has take since with no issue 08/06/20. Elba Broussard MA Date Reviewed: 02/16/2025 Reviewed by: Po Mckeon LPN - Fully Assessed Reason for Visit: Refill Request [94] Prescriptions as of 02/17/2025 - DULoxetine (CYMBALTA) 20 mg capsule Take 1 capsule by mouth two times a day. - sulfamethoxazole-trimetho prim (BACTRIM DS) 800-160 mg per tablet Take 1 tablet by mouth two times a day for 7 days. - nicotine (NICODERM) 21 mg/24 hr Apply 1 patch as directed every 24 hours. - nicotine (NICODERM) 14 mg/24 hr Apply 1 patch as directed every 24 hours. Patient should start on March 14, 2025. - oxybutynin ER (DITROPAN XL) 15 mg 24 hr Extended Rel Tab Take 1 tablet by mouth once daily. - acetaminophen (TYLENOL EXTRA STRENGTH) 500 mg tablet Take 1,000 mg by mouth every 8 hours as needed for pain. - aspirin 81 mg cap Take 81 mg by mouth once daily. - prazosin (MINIPRESS) 2 mg cap Take 1 capsule by mouth daily at bedtime. - mirtazapine (REMERON) 45 mg tablet Take 1 tablet by mouth daily at bedtime. - rosuvastatin (CRESTOR) 10 mg tablet Take 1 tablet by mouth once daily. - cloNIDine HCl (CATAPRES) 0.1 mg tablet Take 1 tablet by mouth once daily. - ARIPiprazole (ABILIFY) 30 mg tablet Take 1 tablet by mouth once daily. - rivaroxaban (XARELTO) 20 mg tablet Take 1 tablet by mouth once daily. - ergocalciferol 50,000 unit capsule (VITAMIN D2, DRISDOL) Take 1 capsule by mouth one time a week. - cilostazol (PLETAL) 100 mg tablet Take 1 tablet by mouth two times a day. - folic acid 1 mg tablet Take 1 tablet by mouth once daily. - fluticasone (FLONASE) 50 mcg/actuation nasal spray Use 1 [place] in the nose as needed. - albuterol HFA (PROVENTIL HFA, VENTOLIN HFA) 90 mcg/actuation inhaler Inhale 2 Puffs as instructed every 6 hours as needed. - amLODIPine (NORVASC) 2.5 mg tablet Take 1 tablet by mouth once daily. - omeprazole (PRILOSEC) 40 mg capsule Take 1 capsule by mouth once daily. Problem List As Of Date 02/17/2025 Noted Resolved GERD (gastroesophageal reflux disease) [K21.9] 06/23/2013 Weight gain [R63.5] 06/23/2013 Other and unspecified hyperlipidemia [E78.5] 11/20/2014 Obesity (BMI 30-39.9) [E66.9] 11/20/2014 Anxiety state, unspecified [F41.1] 11/20/2014 Tobacco use disorder [F17.200] 11/18/2019 Breast abscess [N61.1] 08/06/2020 History of breast abscess [Z87.2] 12/17/2020 Family history of breast cancer [Z80.3] 12/17/2020 Breast mass, left [N63.20] 12/06/2021 Nipple discharge [N64.52] 12/06/2021 Alcohol abuse, in remission [F10.11] 03/24/2022 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HCC) [F19.11] 03/24/2022 Urinary incontinence, nocturnal enuresis [N39.4*01/01/2025 Mixed stress and urge urinary incontinence [N39*01/01/2025 PAD (peripheral artery disease) [I73.9] 02/12/2025 Fibromyalgia [M79.7] 02/12/2025 Encounter Status:Closed by MILLER LEE on 02/17/25 [facility] CNOVon 02-16-2025 CNOV Office Visit (MATTHIEUS ) ----- VINOD ANN ([id number]) 1975 F Date Time Provider Department 02/16/25 9:00 AM DEBRA CARRILLO During your visit today, we recorded the following information about you: Temperature Pulse Respiration Blood pressure 97.6 degrees 103/minute 18/minute 103/66 Weight 103.4 kg Debra Carrillo MD 02/16/2025 2:56 PM Signed HISTORY AND PHYSICAL Vinod Ann 1975 REFERRING PHYSICIAN: Isatu Nieto MD CHIEF COMPLAINT: cyst on back HPI: The patient is a 50 year old female presents with infected sebaceous cyst of back. She has noted the lesion for awhile. She has noted recent spontaneous drainage in the past few days. She also presents with chronic infections of the right breast. This has been going on for years She denies present infection of the area. Examination is consistent with periductal mastitis. She has had previous complete excision of left nipple/areolar complex for chronic infections. She admits to cigarettes use. She is also taking chronic anti-thrombotic medications for history of DVT/PE. 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 , did have small relapse 02/15 with of mother Severe episode of recurrent major depressive disorder, without psychotic features ([facility]) Kendra Padilla RIYA (stress urinary incontinence, female) Suicidal ideation PAST SURGICAL HISTORY Procedure Laterality Date ABDOMINAL SURGERY HX BREAST SURGERY HX BX OF BREAST; INCISIONAL Left 08/29/2019 [place] [facility]- Benign COLONOSCOPY 09/22/2022 COLONOSCOPY FLX DX W/COLLJ SPEC WHEN PFRMD 12/01/2019 Colonoscopy PAST SURGICAL HISTORY OF 03/2010 gall bladder removed PAST SURGICAL HISTORY OF Left wrist surgery when she was 15 years old PAST SURGICAL HISTORY OF 2014 tubal ligation PAST SURGICAL HISTORY OF 02/2022 bilateral cyst removed, [place] Current Outpatient Medications Medication Sig sulfamethoxazole-trimetho prim (BACTRIM DS) 800-160 mg per tablet Take 1 tablet by mouth two times a day for 7 days. oxybutynin ER (DITROPAN XL) 15 mg 24 hr Extended Rel Tab Take 1 tablet by mouth once daily. acetaminophen (TYLENOL EXTRA STRENGTH) 500 mg tablet Take 1,000 mg by mouth every 8 hours as needed for pain. aspirin 81 mg cap Take 81 mg by mouth once daily. prazosin (MINIPRESS) 2 mg cap Take 1 capsule by mouth daily at bedtime. mirtazapine (REMERON) 45 mg tablet Take 1 tablet by mouth daily at bedtime. rosuvastatin (CRESTOR) 10 mg tablet Take 1 tablet by mouth once daily. cloNIDine HCl (CATAPRES) 0.1 mg tablet Take 1 tablet by mouth once daily. ARIPiprazole (ABILIFY) 30 mg tablet Take 1 tablet by mouth once daily. rivaroxaban (XARELTO) 20 mg tablet Take 1 tablet by mouth once daily. ergocalciferol 50,000 unit capsule (VITAMIN D2, DRISDOL) Take 1 capsule by mouth one time a week. cilostazol (PLETAL) 100 mg tablet Take 1 tablet by mouth two times a day. folic acid 1 mg tablet Take 1 tablet by mouth once daily. fluticasone (FLONASE) 50 mcg/actuation nasal spray Use 1 [place] in the nose as needed. albuterol HFA (PROVENTIL HFA, VENTOLIN HFA) 90 mcg/actuation inhaler Inhale 2 Puffs as instructed every 6 hours as needed. amLODIPine (NORVASC) 2.5 mg tablet Take 1 tablet by mouth once daily. omeprazole (PRILOSEC) 40 mg capsule Take 1 capsule by mouth once daily. DULoxetine (CYMBALTA) 20 mg capsule Take 1 capsule by mouth two times a day. nicotine (NICODERM) 21 mg/24 hr Apply 1 patch as directed every 24 hours. [START ON 03/14/2025] nicotine (NICODERM) 14 mg/24 hr Apply 1 patch as directed every 24 hours. Patient should start on March 14, 2025. No current facility-administered medications for this visit. ALLERGIES: Cephalexin, Fenofibrate, Zoloft [Sertraline Hcl], Zyprexa [Olanzapine], and Clindamycin PERSONAL HISTORY: Social History Tobacco Use Smoking status: Every Day Current packs/day: 1.00 Average packs/day: 2.0 packs/day for 37.3 years (73.8 ttl pk-yrs) Types: Cigarettes Start date: 1987 Smokeless tobacco: Never Vaping Use Vaping status: Former Substances: Nicotine, Flavoring Devices: Disposable Substance Use Topics Alcohol use: Not Currently Comment: quit , small relapse in 02/15 with of mother. Drug use: Not Currently Types: Crystal Meth Comment: Sober since 04/19/2024 FAMILY HISTORY Problem Relation A (more content not included)... Normal [facility] Abdomen/Pelvis W IV Cont ONL Yon 02-13-2025 Abdomen/Pelvis W IV Cont ONLY [facility] Imaging Services [address] [place] [address] [id number] Abdomen/Pelvis W IV Cont ONLY MR#: [id number] Acct: [id number] Name: VINOD ANN Rep #: [id number] : 1975 F 50 From: Moi Paul MD PCP: Dr. Isatu Nieto MD Status: PRE ER Study: Abdomen/Pelvis W IV Cont ONLY Date of Exam: Exam# [id number] Ordering Dr: Oscar Nath DO PROCEDURE: ABDOMEN/PELVIS W IV CONT ONLY 02/13/2025 REASON FOR EXAM: LLQ PAIN TECHNIQUE: Contiguous axial scans of 3.75 mm slice thicknesses. Sagittal and coronal reconstruction images were obtained. One or more dose reduction techniques were used (e.g., automated exposure control, adjustment of mA and/or kv according to patient size, use of iterative reconstruction technique). PATIENT PREPARATION: Per protocol ORAL CONTRAST TYPE: None. AMOUNT: 0 mL CONTRAST: Isovue-300 VOLUME: 100 mL RADIATION DOSE SUMMARY: CTDlvol: 35.74 mGy DLP: 1181.03 mGycm COMPARISON: No relevant prior FINDINGS: Lung bases: Unremarkable Liver: Mild hypoattenuation of the parenchyma. No ductal dilatation. Gallbladder: Surgically absent. Spleen: Unremarkable. Normal in size. Pancreas: No masses or other abnormalities. Adrenals: No thickening or nodules. Kidneys: Excrete contrast material symmetrically. No masses or calcifications. No hydronephrosis. Bladder: Normal. Reproductive Organs: Retroverted uterus. No adnexal masses. Bowel: Mild sigmoid diverticulosis. Appendix: Unremarkable. Lymph nodes: No adenopathy. Vasculature: Mild atherosclerotic calcific disease. Peritoneum / Retroperitoneum: No masses. No free air. No free fluid Anterior abdominal wall: Unremarkable. Bones: Multilevel spondylosis. CT/Abdomen/Pelvis W IV Cont ONLY IMPRESSION: Mild fatty infiltration of the liver is suspected. Status post cholecystectomy. Other incidental findings documented above. Reading Location: [place] [address] CC: Dr. Isatu Nieto MD; Dr. Oscar Nath DO Insulation Batting Machine Operator: Signed Normal [facility] CBC W/Diff, Automatedon 02-03 Absolute Lymph 3.81 X10 3/uL Normal 0.83-4.51 [facility] Comment on above: Performed By: #### L 100.0100, L500.4050, L501.2450 #### [facility] [address] [place], [address] Absolute Neut 4.4 X10 3/uL Normal 2.0-7.7 [facility] Comment on above: Performed By: #### L 100.0100, L500.4050, [id number] #### [facility] [address] [place], [address] Basophils/100 WBC (Bld) 0.8 % Normal 0-1 [facility] Comment on above: Performed By: #### L 100.0100, L500.4050, [id number] #### [facility] [address] [place], [address] Eosinophils/100 WBC (Bld) 1.8 % Normal 0-5 [facility] Comment on above: Performed By: #### L 100.0100, L500.4050, [id number] #### [facility] [address] [place], [address] Erythrocyte distribution width (RBC) [Ratio] 14.1 % Normal 11.6-14.6 [facility] Comment on above: Performed By: #### L 100.0100, L500.4050, [id number] #### [facility] [address] [place], [address] Hematocrit (Bld) [Volume fraction] 41.3 % Normal 37-47 [facility] Comment on above: Performed By: #### L 100.0100, L500.4050, [id number] #### [facility] [address] [place], [address] Hemoglobin (Bld) [Mass/Vol] 13.3 g/dL Normal 12.0-15.0 [facility] Comment on above: Performed By: #### L 100.0100, L500.4050, L501.2450 #### [facility] [address] [place], [address] IG% 0.300 Normal 0.0-0.9 [facility] Comment on above: Result Comment: IG% - Immature Granulocytes (promyelocytes, myelocytes and metamyelocytes) > 1% indicates that a LEFT SHIFT is Present. Performed By: #### L 100.0100, L500.4050, L501.2450 #### [facility] [address] [place], [address] Lymphocytes/100 WBC (Bld) 41.9 % High 19-41 [facility] Comment on above: Performed By: #### L 100.0100, L500.4050, [id number] #### [facility] [address] [place], [address] MCH (RBC) [Entitic mass] 26.8 pg Low 27.0-32.0 [facility] Comment on above: Performed By: #### L 100.0100, L500.4050, L501.2450 #### [facility] [address] [place], [address] MCHC (RBC) [Mass/Vol] 32.2 g/dL Normal 32-36 [facility] Comment on above: Performed By: #### L 100.0100, L500.4050, [id number] #### [facility] [address] [place], [address] MCV (RBC) [Entitic vol] 83.3 fL Normal 81-99 [facility] Comment on above: Performed By: #### L 100.0100, L500.4050, L501.2450 #### [facility] [address] [place], [address] Monocytes/100 WBC (Bld) 7.0 % Normal 0-10 [facility] Comment on above: Performed By: #### L 100.0100, L500.4050, [id number] #### [facility] [address] [place], [address] Neutrophils/100 WBC (Bld) 48.2 % Normal 47-70 [facility] Comment on above: Performed By: #### L 100.0100, L500.4050, L501.2450 #### [facility] [address] [place], [address] Nucleated RBC (Bld) [#/Vol] 0 10*3/uL Normal 0-5 [facility] Comment on above: Performed By: #### L 100.0100, L500.4050, L501.2450 #### [facility] [address] [place], [address] Platelet mean volume (Bld) [Entitic vol] 10.4 fL Normal 6.2-12.0 [facility] Comment on above: Performed By: #### L 100.0100, L500.4050, L501.2450 #### [facility] [address] [place], [address] Platelets (Bld) [#/Vol] 340 10*3/uL Normal 150-450 [facility] Comment on above: Performed By: #### L 100.0100, L500.4050, L501.2450 #### [facility] [address] [place], [address] RBC (Bld) [#/Vol] 4.96 10*6/uL Normal 4.2-5.4 [facility] Comment on above: Performed By: #### L 100.0100, L500.4050, L501.2450 #### [facility] [address] [place], [address] RDW SD 42.5 fl Normal 35.1-43.9 [facility] Comment on above: Performed By: #### L 100.0100, L500.4050, L501.2450 #### [facility] [address] [place], [address] WBC (Bld) [#/Vol] 9.1 10*3/uL Normal 4.4-11.0 [facility] Comment on above: Performed By: #### L 100.0100, L500.4050, L501.2450 #### [facility] [address] [place], [address] Comprehensive Metabolic Prof ilon 02-13-2025 Albumin [Mass/Vol] 4.0 g/dL Normal 3.5-5.0 [facility] Comment on above: Performed By: #### L 100.0100, L500.4050, L501.2450 #### [facility] [address] [place], [address] Albumin/Globulin [Mass ratio] 1.2 {ratio} Normal 0.9-2.4 [facility] Comment on above: Performed By: #### L 100.0100, L500.4050, L501.2450 #### [facility] [address] [place], [address] ALK PHOS 134 U/L High 35-104 [facility] Comment on above: Performed By: #### L 100.0100, L500.4050, L501.2450 #### [facility] [address] [place], [address] ALT [Catalytic activity/Vol] 20 U/L Normal <=34 [facility] Comment on above: Performed By: #### L 100.0100, L500.4050, L501.2450 #### [facility] [address] [place], [address] AST [Catalytic activity/Vol] 20 U/L Normal <=31 [facility] Comment on above: Performed By: #### L 100.0100, L500.4050, L501.2450 #### [facility] [address] [place], [address] Bilirubin [Mass/Vol] 0.21 mg/dL Normal 0.00-1.30 [facility] Comment on above: Performed By: #### L 100.0100, L500.4050, L501.2450 #### [facility] [address] [place], [address] BUN/CRE 11.1 RATIO Normal 10-20 [facility] Comment on above: Performed By: #### L 100.0100, L500.4050, L501.2450 #### [facility] [address] [place], [address] Calcium [Mass/Vol] 9.2 mg/dL Normal 7.6-11.0 [facility] Comment on above: Performed By: #### L 100.0100, L500.4050, L501.2450 #### [facility] [address] [place], [address] Chloride [Moles/Vol] 102 mmol/L Normal 98-108 [facility] Comment on above: Performed By: #### L 100.0100, L500.4050, L501.2450 #### [facility] [address] [place], [address] CO2 [Moles/Vol] 25.0 mmol/L Normal 21.0-32.0 [facility] Comment on above: Performed By: #### L 100.0100, L500.4050, L501.2450 #### [facility] [address] [place], [address] Creatinine [Mass/Vol] 0.93 mg/dL Normal 0.70-1.20 [facility] Comment on above: Performed By: #### L 100.0100, L500.4050, L501.2450 #### [facility] [address] [place], [address] ECRCL 87.57 ml/min Normal 50-250 [facility] Comment on above: Performed By: #### L 100.0100, L500.4050, L501.2450 #### [facility] [address] [place], [address] GAP 12 Normal 5-15 [facility] Comment on above: Performed By: #### L 100.0100, L500.4050, L501.2450 #### [facility] [address] [place], [address] GFR/1.73 sq M.predicted among non-blacks MDRD (S/P/Bld) [Vol rate/Area] 75 mL/min/{1.73_m2} Normal >60 [facility] Comment on above: Result Comment: mL/m in/1.73m2 CKD-EPI Creatinine Equation (2020) Performed By: #### L 100.0100, L500.4050, L501.2450 #### [facility] [address] [place], [address] Globulin (S) [Mass/Vol] 3.3 g/dL Normal 2.2-4.2 [facility] Comment on above: Performed By: #### L 100.0100, L500.4050, L501.2450 #### [facility] [address] [place], [address] Glucose [Mass/Vol] 93 mg/dL Normal 70-99 [facility] Comment on above: Performed By: #### L 100.0100, L500.4050, L501.2450 #### [facility] [address] [place], [address] Potassium [Moles/Vol] 4.0 mmol/L Normal 3.3-5.1 [facility] Comment on above: Performed By: #### L 100.0100, L500.4050, L501.2450 #### [facility] [address] [place], [address] Sodium [Moles/Vol] 139 mmol/L Normal 133-145 [facility] Comment on above: Performed By: #### L 100.0100, L500.4050, L501.2450 #### [facility] [address] [place], [address] T PROT 7.3 g/dL Normal 5.9-8.4 [facility] Comment on above: Performed By: #### L 100.0100, L500.4050, L501.2450 #### [facility] [address] [place], [address] Urea nitrogen [Mass/Vol] 10 mg/dL Normal 4-19 [facility] Comment on above: Performed By: #### L 100.0100, L500.4050, L501.2450 #### [facility] [address] [place], [address] Emergency Department Summary on 02-13-2025 Emergency Department Summary [facility] Medical Records Department [address] [place] [address] Emergency Department Summary 02/13/25 MR#: [id number] Acct: [id number] Name: VINOD ANN Rep #: [id number] : 1975 50 From: Oscar Nath DO PCP: Dr. Isatu Nieto MD Status:PRE ER Location: ED HPI History of Present Illness Chief Complaint: Abd Pain Narrative Narrative: Patient is a 50-year-old female with a past medical history of methamphetamine use disorder, hypertension, bipolar 1 disorder, DVT on Xarelto, depression who presents to the emergency department the chief complaint of abdominal pain. Patient states that she has had abdominal pain for the last several days that been progressively worsening. States that in the left lower portion of her abdomen rates the pain a 5 out of 10. Patient states that she had has had a cholecystectomy in the past and notes that she has been passing gas and having bowel movements. [facility] Medical History Blue toe syndrome Hypertension Substance abuse Methamphetamine use disorder, moderate Alcohol use disorder PTSD (post-traumatic stress disorder) Generalized anxiety disorder Bipolar 1 disorder, mixed Suicide attempt Carbamazepine overdose of undetermined intent Panic attacks Depression Nicotine abuse Chest pain Shortness of breath Intermittent palpitations Dizziness Lung nodule Moderate dysplasia of cervix (DARRELL II) Home Medications ???Medication ???Instructions ???Recorded ???Last Taken ???Type multivitamin,xv-gith-qhqo rals 1 tab PO DAILY 07/02/19 Unknown Hi story (Complete Multivitamin tablet) fluticasone propionate 50 1 spray intranasal DAILY #16 grams 01/15/23 Unknown Rx mcg/actuation nasal spray,suspension (Flonase Allergy Relief) acetaminophen 500 mg tablet mg PO 03/19/24 Unknown History albuterol sulfate 90 mcg/actuation 2 puff inhalation Q4H PRN Unknown History aerosol inhaler amlodipine 5 mg tablet 5 mg PO QDAY 03/19/24 Unknown Hist ory aspirin 81 mg tablet,delayed 81 mg PO QDAY 03/19/24 Unknown His tory release cholecalciferol (vitamin D3) 1,250 PO 03/19/24 Unknown History mcg (50,000 unit) capsule cilostazol 100 mg tablet 100 mg PO BID 03/19/24 Unknown His tory clonidine HCl 0.1 mg tablet 0.1 mg PO QHS 03/19/24 Unknown His tory gabapentin 100 mg capsule 200 mg PO QHS 03/19/24 Unknown His tory hydrochlorothiazide 25 mg tablet 25 mg PO QDAY 03/19/24 Unknown His tory omeprazole 20 mg capsule,delayed 20 mg PO QDAY 03/19/24 Unknown His tory release oxybutynin chloride 15 mg 15 mg PO QDAY 03/19/24 Unknown His tory tablet,extended release 24 hr rivaroxaban 20 mg tablet (Xarelto) 20 mg PO QDAY 03/19/24 Unknown H istory rosuvastatin 10 mg tablet 10 mg PO QHS 03/19/24 Unknown Hist ory aripiprazole 15 mg tablet 20 mg PO QDAY 03/25/24 Unknown His tory dicyclomine 20 mg tablet 20 mg PO TID #20 tabs 02/13/25 Unk nown Rx ondansetron 4 mg disintegrating 4 mg PO Q6H PRN nausea and 5 Unknown Rx tablet vomiting #30 tabs Allergy/AdvReac Type Severity Reaction Status Date / Time fenofibrate Allergy Severe Hives Verified 03/25/24 10:02 clindamycin Allergy Intermediate Hives Verified 03/25/24 10:02 cephalexin Allergy Hives Verified 03/25/24 10:02 olanzapine Allergy Hives Verified 03/25/24 10:22 sertraline HCl (From Zoloft) Allergy Hives Verified 03/21/23 12:37 Family History Father Hypertension Colon cancer Mother Lung cancer Grandmother Breast cancer Surgical History History of left breast biopsy ( 08/2019) H/O LEEP History of cholecystectomy Social History household members: none Smoking Status: Heavy Smoker (>10/day) alcohol intake: current alcohol intake frequency: a few times a week substance use type: amphetamines ROS ROS ED ROS Narrative Constitutional: Denies fevers, chills, headaches, lightness, dizziness Cardiovascular: Denies chest pain or palpitations Respiratory: Denies coughing wheezing shortness of breath Abdomen: Planes of abdominal pain as noted above denies nausea vomit diarrhea : Denies urinary symptoms Neurological: Denies numbness, weakness, tingling Musculoskeletal: Denies back pain Skin: Denies rashes or lesions EXAM Physical Exam Narrative Exam Narrative: General: Patient lying in bed rest comfortably did not appear to be in acute distress Head: Atraumatic, normocephalic Eyes: PERRL bilaterally, EOMI bilateral, no conjunctival injection noted Neck: Soft and supple, trachea midline Cardiovascular: Regular in rhythm no murmurs gallops r (more content not included)... Normal [facility] Lipaseon 02-13-2025 Lipase [Catalytic activity/Vol] 21 U/L Normal 13-75 [facility] Comment on above: Result Comment: Joby persaud note: LIPASE revised reference range effective 23. New Lipase methodology. Expected to produce lower values than the previous assay method. NEW Reference Range: 13 - 75 U/L Performed By: #### L 100.0100, L500.4050, L501.2450 #### [facility] [address] [place], [address] CNOVon 02-12-2025 CNOV Office Visit (INTMWS ) ----- VINOD ANN ([id number]) 1975 F Date Time Provider Department 02/12/25 10:00 AM ISATU NIETO During your visit today, we recorded the following information about you: Pulse Blood pressure Weight Height 105/minute 120/78 102.2 kg 1.676 m Isatu Nieto MD 02/12/2025 11:06 AM Signed Reason for Visit Whole body pain HPI Vinod is a 50-year-old female with a history of drug abuse, peripheral arterial disease, tobacco use disorder, breast abscess, obesity, anxiety, urinary incontinence, stress urinary incontinence, GERD, and hyperlipidemia, presenting for evaluation of chronic pain and a cyst on her back. Vinod reports chronic pain that hurts to walk, it hurts to move, it hurts to sit. She has been evaluated by a spray painter, Dr. Fitch, who suspects fibromyalgia and recommended physical therapy, which she has not yet initiated. She also reports her back trying to lock up on me and expresses concern about the possibility of bone cancer, given her family history of bone, lung, and prostate cancer in her father. She requests a bone density scan. She has had x-rays of her back, which reportedly showed degenerative changes, but she is unsure of the specific results. She is currently taking multiple medications, including oxybutynin, Xarelto 15 mg, Pletal, Crestor, Prilosec, and prazosin for night terrors. She is also on Abilify 30 mg for mood swings and bipolar disorder. She has a history of being on gabapentin 800 mg, which she reports was helpful. She is unsure if she has tried Cymbalta in the past. Vinod also reports a cyst on her back that was popped by someone yesterday, resulting in the release of blood and gunk. She requests evaluation of the cyst to ensure it is not infected. She has a history of a breast abscess that required removal of her nipple. She is a current smoker, smoking approximately one pack per day, and has recently increased her smoking due to stress. She has a 26-year-old child. Social History Tobacco Use Smoking status: Every Day Current packs/day: 1.00 Average packs/day: 2.0 packs/day for 37.3 years (73.8 ttl pk-yrs) Types: Cigarettes Start date: 1987 Smokeless tobacco: Never Vaping Use Vaping status: Former Substances: Nicotine, Flavoring Devices: Disposable Substance Use Topics Alcohol use: Not Currently Comment: quit , small relapse in 02/15 with of mother. Drug use: Not Currently Types: Crystal Meth Comment: Sober since 04/19/2024 Past medical history, appointments, medications, allergies reviewed. Pertinent Lab/Diagnostic Studies are reviewed and discussed today Current Outpatient Medications: oxybutynin ER (DITROPAN XL) 15 mg 24 hr Extended Rel Tab acetaminophen (TYLENOL EXTRA STRENGTH) 500 mg tablet aspirin 81 mg cap prazosin (MINIPRESS) 2 mg cap mirtazapine (REMERON) 45 mg tablet rosuvastatin (CRESTOR) 10 mg tablet cloNIDine HCl (CATAPRES) 0.1 mg tablet ARIPiprazole (ABILIFY) 30 mg tablet rivaroxaban (XARELTO) 20 mg tablet ergocalciferol 50,000 unit capsule (VITAMIN D2, DRISDOL) cilostazol (PLETAL) 100 mg tablet folic acid 1 mg tablet fluticasone (FLONASE) 50 mcg/actuation nasal spray albuterol HFA (PROVENTIL HFA, VENTOLIN HFA) 90 mcg/actuation inhaler amLODIPine (NORVASC) 2.5 mg tablet omeprazole (PRILOSEC) 40 mg capsule DULoxetine (CYMBALTA) 20 mg capsule sulfamethoxazole-trimetho prim (BACTRIM DS) 800-160 mg per tablet nicotine (NICODERM) 21 mg/24 hr [START ON 03/14/2025] nicotine (NICODERM) 14 mg/24 hr Health Maintenance Depression Screening Hepatitis B Vaccine(1 of 3 - 19+ 3-dose series) Pneumococcal Vaccine: 50+(2 of 2 - PCV) Lipid Screening Shingrix Vaccine(1 of 2) Influenza Vaccine(1) Covid-19 Vaccine(2023- season) Lung Cancer Screening Mammogram Screening@ Review Of Systems Constitutional: (+) myalgia Neck: (+) neck pain Musculoskeletal: (+) back pain, (+) pain with movement Skin: (+) draining cyst on left posterior trunk Psychiatric: (+) anxiety, (+) night terrors Physical Exam BP 120/78 Pulse 105 Ht 167.6 cm (5' 6) Wt 102.2 kg (225 lb 6.4 oz) LMP 08/06/2020 SpO2 95% BMI 36.38 kg/m? GENERAL: NAD, alert and oriented. SKIN: Sebaceous cyst noted on the posterior left side below the angle of the scapula, approximately 1.2-1.3 cm in diameter, with dark discharge. No other rash or skin lesions. HEAD: Normocephalic. EYES: PERRLA, EOMI, conjunctiva clear. EARS: External ears normal, canals clear, TM's normal. NOSE/SINUSES: Nares normal. Septum midline. OROPHARYNX: Lips, mucosa, and tongue normal, good dentition. No oral lesions noted. NECK: Supple, no lymphadenopathy, normal thyroid, no carotid bruits. LUNGS: Clear to auscultation bilaterally, no wheezes/rhonchi/rales. HEART: Regular rate and rhythm, no m (more content not included)... Normal [facility] CNOVon 02-10-2025 CNOV Office Visit (VASSWS ) ----- VINOD ANN ([id number]) 1975 F Date Time Provider Department 02/10/25 1:30 PM KIMBERLY MARADIAGA VASSWS During your visit today, we recorded the following information about you: Pulse Blood pressure 100/minute 113/74 Kimberly Maradiaga, DO 02/20/2025 8:59 AM Signed [facility] [place] DEPARTMENT OF VASCULAR SURGERY OUTPATIENT VISIT DATE February 10, 2025 OUTPATIENT VISIT TYPE CONSULTATION SERVICE DATE: 02/10/2025 SERVICE TIME: 1:22 PM PRIMARY CARE PHYSICIAN: Isatu Nieto MD REFERRING PROVIDER: Isatu Nieto [address] [facility] [address] Consult requested for an opinion regarding the evaluation and treatment of the above. My final impression and recommendations will be communicated back to the requesting physician by way of the shared medical record or letter via [place] mail. CHIEF COMPLAINT: Patient presents with: New Patient History of Present Illness: Patient is a 50 year old White female presenting for consultation, evaluation and possible treatment of peripheral arterial disease especially the right foot with associated swelling.She admits to claudication. She has a history of DVT- is on xarelto. She admits to restless legs and needs to get up and move at night. PAIN ASSESSMENT: PAIN EVALUATION 02/10/2025 1317 Pain Level: 3 Pain Location: Foot-Right Description: Aching Frequency: Intermittent Obstetric History T1 L1 SAB3 IAB0 Ectopic0 Multiple0 Live Births1 Comment: One baby stillborn Name of Baby 1: Not recorded Date: Not recorded GA: Not recorded Type: Not recorded Apgar1: Not recorded Apgar5: Not recorded Living: Not recorded Name of Baby 2: Not recorded Date: Not recorded GA: Not recorded Type: Not recorded Apgar1: Not recorded Apgar5: Not recorded Living: Not recorded Name of Baby 3: Not recorded Date: Not recorded GA: Not recorded Type: Not recorded Apgar1: Not recorded Apgar5: Not recorded Living: Not recorded Name of Baby 4: Not recorded Date: Not recorded GA: Not recorded Type: Not recorded Apgar1: Not recorded Apgar5: Not recorded Living: Not recorded Name of Baby 5: Not recorded Date: Not recorded GA: Not recorded Type: Not recorded Apgar1: Not recorded Apgar5: Not recorded Living: Not recorded Duration of Symptoms: Progressive 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 02/15 with of mother Severe episode of recurrent major depressive disorder, without psychotic features (HCC) Kendra Padilla Suicidal ideation PAST SURGICAL HISTORY Procedure Laterality Date ABDOMINAL SURGERY HX BREAST SURGERY HX BX OF BREAST; INCISIONAL Left 08/29/2019 [facility]- Benign COLONOSCOPY 09/22/2022 COLONOSCOPY FLX DX W/COLLJ SPEC WHEN PFRMD 12/01/2019 Colonoscopy PAST SURGICAL HISTORY OF 03/2010 gall bladder removed PAST SURGICAL HISTORY OF Left wrist surgery when she was 15 years old PAST SURGICAL HISTORY OF 2013 tubal ligation PAST SURGICAL HISTORY OF 02/2022 bilateral cyst removed, [place] SOCIAL HISTORY: Social History Tobacco Use Smoking status: Every Day Current packs/day: 1.00 Average packs/day: 2.0 packs/day for 37.3 years (73.8 ttl pk-yrs) Types: Cigarettes Start date: 1987 Smokeless tobacco: Never Vaping Use Vaping status: Former Substances: Nicotine, Flavoring Devices: Disposable Substance Use Topics Alcohol use: Not Currently Comment: quit , small relapse in 02/15 with of mother. Drug use: Not Currently Types: Crystal Meth Comment: Sober since 04/19/2024 FAMILY HISTORY Problem Relation Age of Onset Lung Cancer Mother at 63 Osteoporosis Mother Alcohol/Drug Mother alcohol Hypertension Father Alcohol/Drug Father alcohol Aneurysm Father abdominal Prostate Cancer Father Alcohol/Drug Sister drugs other (Aids) Sister drug user Aneurysm Sister head Breast Cancer Paternal Grandmother late 50's or 60's Alcohol/Drug Niece Ovarian cancer Niece diagnosed young MEDICATIONS: oxybutynin ER (DITROPAN XL) 15 mg 24 hr Extended Rel Tab Take 1 tablet by mouth once daily. acetaminophen (TYLENOL EXTRA STRENGTH) 500 mg tablet Take 1,000 mg by mouth every 8 hours as needed for pain. aspirin 81 mg cap Take 81 mg by mouth once daily. prazosin (MINIPRESS) 2 mg cap Take 1 capsule by mouth daily at bedtime. mirtazapine (REMERON) 45 mg tablet Take 1 tablet by mouth daily at bedtime. rosuvastatin (more content not included)... Normal [facility] Cerv Spine 2 or 3 Viewson Cerv Spine 2 or 3 Views [facility] Imaging Services [address] [place], [place] [id number] Cerv Spine 2 or 3 Views MR#: [id number] Acct: [id number] Name: VINOD ANN Rep #: [id number] : 1975 F 50 From: Iban Son MD PCP: Dr. Isatu Nieto MD Status: REG CLI Study: Cerv Spine 2 or 3 Views Date of Exam: 01/26/25 Exam# [id number] Ordering Dr: Hector Tran MD EXAM: XR Cervical Spine, 2 or 3 Views CLINICAL INDICATION: CERVICAL SPONDYLOSIS TECHNIQUE: Frontal and lateral views of the cervical spine. COMPARISON: No relevant prior studies available. FINDINGS: VERTEBRAE: Degenerative facet arthropathy throughout the cervical spine. Normal alignment. No acute fracture. DISC SPACES: Degenerative disc disease lower cervical spine. SOFT TISSUES: Unremarkable. RAD/Cerv Spine 2 or 3 Views IMPRESSION: 1. No acute fracture. 2. Degenerative changes cervical spine as described. Reading Location: [facility] CC: Dr. Isatu Nieto MD; Dr. Hector Tran MD Insulation Batting Machine Operator: Signed Normal [facility] Lumbar Spine 2 or 3 Viewson 01-26-2025 Lumbar Spine 2 or 3 Views [facility] Imaging Services [address] [place], [place] [id number] Lumbar Spine 2 or 3 Views MR#: [id number] Acct: [id number] Name: VINOD ANN Rep #: [id number] : 1975 F 50 From: Iban Son MD PCP: Dr. Isatu Nieto MD Status: REG CLI Study: Lumbar Spine 2 or 3 Views Date of Exam: Exam# [id number] Ordering Dr: Hector Tran MD EXAM: XR Lumbosacral Spine, 2 or 3 Views CLINICAL INDICATION: LUMBAR SPONDYLOSIS TECHNIQUE: Frontal and lateral views of the lumbar spine and sacrum. COMPARISON: No relevant prior studies available. FINDINGS: VERTEBRAE: Mild multilevel endplate degenerative changes of L2-S1. Moderate facet arthropathy of L3-S1. No acute fracture. Normal alignment. SACRUM/COCCYX: Unremarkable as visualized. No acute fracture. DISC SPACES: No acute findings. No significant narrowing. SOFT TISSUES: Unremarkable. RAD/Lumbar Spine 2 or 3 Views IMPRESSION: Degenerative changes as above. Reading Location: [facility] CC: Dr. Isatu Nieto MD; Dr. Hector Tran MD Insulation Batting Machine Operator: Signed Normal [facility] CNCOon 01-22-2025 CNCO Letter Text Normal [facility] CNPNon 01-19-2025 CNPN Telephone (INTMWS) ----- VINOD ANN ([id number]) 1975 F Date Time Provider Department 01/19/25 ISATU NIETO INTMWS During your visit today, we recorded the following information about you: Destiny Mcnulty RN 01/19/2025 8:51 AM Signed Pt called in and states, It feels like my bones are going to break. Can you ask the doctor if they will order a bone density test for me.. I asked Pt if she has ever had one done before and Pt said she has not. I let Pt know I could sent a message to the provider and have them call her back. Pt states she has an appointment on 03/17/25. Please call and advise. Isatu Nieto MD 01/19/2025 5:31 PM Signed Decreased bone density does not hurt. BMD is not indicated. Make follow up to discuss bone pains Isatu Dubois MD, Amanda, SOLOMON 01/19/2025 5:51 PM Signed Pt called and is notified of providers message and instructions. Pt voices understanding. Pt scheduled with Dr Nieto 02/02/25. Destiny Mcnulty RN Allergies As of Date: 01/19/2025 Noted Allergy Reaction CEPHALEXIN 02/26/2018 4 - Hives 6 - Diarrhea FENOFIBRATE 08/31/2019 14 - Other: See Comments Comments: Hives with GI upset (emesis) ZOLOFT (SERTRALINE HCL) 06/23/2013 4 - Hives 6 - Diarrhea ZYPREXA (OLANZAPINE) 04/04/2024 1 - Mental Status Change 4 - Hives CLINDAMYCIN 09/29/2019 4 - Hives Comments: States has take since with no issue 08/06/20. Elba Broussard MA Date Reviewed: 01/12/2025 Reviewed by: Blanca Landis APRN.HAND SCRAPER - Fully Assessed Reason for Visit: Patient Update [1234] Orders [681] Prescriptions as of 01/19/2025 - acetaminophen (TYLENOL EXTRA STRENGTH) 500 mg tablet Take 1,000 mg by mouth every 8 hours as needed for pain. - famotidine (PEPCID) 40 mg tablet Take 1 tablet by mouth daily at bedtime. - famotidine (PEPCID) 40 mg tablet Take 1 tablet by mouth daily at bedtime. - aspirin 81 mg cap Take 81 mg by mouth once daily. - prazosin (MINIPRESS) 2 mg cap Take 1 capsule by mouth daily at bedtime. - mirtazapine (REMERON) 45 mg tablet Take 1 tablet by mouth daily at bedtime. - rosuvastatin (CRESTOR) 10 mg tablet Take 1 tablet by mouth once daily. - cloNIDine HCl (CATAPRES) 0.1 mg tablet Take 1 tablet by mouth once daily. - ARIPiprazole (ABILIFY) 30 mg tablet Take 1 tablet by mouth once daily. - rivaroxaban (XARELTO) 20 mg tablet Take 1 tablet by mouth once daily. - ergocalciferol 50,000 unit capsule (VITAMIN D2, DRISDOL) Take 1 capsule by mouth one time a week. - cilostazol (PLETAL) 100 mg tablet Take 1 tablet by mouth two times a day. - folic acid 1 mg tablet Take 1 tablet by mouth once daily. - fluticasone (FLONASE) 50 mcg/actuation nasal spray Use 1 [place] in the nose as needed. - albuterol HFA (PROVENTIL HFA, VENTOLIN HFA) 90 mcg/actuation inhaler Inhale 2 Puffs as instructed every 6 hours as needed. - amLODIPine (NORVASC) 2.5 mg tablet Take 1 tablet by mouth once daily. - oxybutynin ER (DITROPAN XL) 10 mg 24 hr tablet Take 1 tablet by mouth once daily. - omeprazole (PRILOSEC) 40 mg capsule Take 1 capsule by mouth once daily. 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 Hodge, sent her medical history to pcp. Noted in scanned documents under 11/26/24. Milly Feliciano APRN.CNP 01/14/2025 4:43 PM Signed Noted. Milly Feliciano APRN.CNP Allergies As of Date: 01/14/2025 Noted Allergy Reaction CEPHALEXIN 02/26/2018 4 - Hives 6 - Diarrhea FENOFIBRATE 08/31/2019 14 - Other: See Comments Comments: Hives with GI upset (emesis) ZOLOFT (SERTRALINE HCL) 06/23/2013 4 - Hives 6 - Diarrhea ZYPREXA (OLANZAPINE) 04/04/2024 1 - Mental Status Change 4 - Hives CLINDAMYCIN 09/29/2019 4 - Hives Comments: States has take since with no issue 08/06/20. Elba Broussard MA Date Reviewed: 01/12/2025 Reviewed by: Blanca Landis APRN.HAND SCRAPER - Fully Assessed Reason for Visit: Scanned documents from previous pcp [Other] Prescriptions as of 01/14/2025 - acetaminophen (TYLENOL EXTRA STRENGTH) 500 mg tablet Take 1,000 mg by mouth every 8 hours as needed for pain. - famotidine (PEPCID) 40 mg tablet Take 1 tablet by mouth daily at bedtime. - famotidine (PEPCID) 40 mg tablet Take 1 tablet by mouth daily at bedtime. - aspirin 81 mg cap Take 81 mg by mouth once daily. - prazosin (MINIPRESS) 2 mg cap Take 1 capsule by mouth daily at bedtime. - mirtazapine (REMERON) 45 mg tablet Take 1 tablet by mouth daily at bedtime. - rosuvastatin (CRESTOR) 10 mg tablet Take 1 tablet by mouth once daily. - cloNIDine HCl (CATAPRES) 0.1 mg tablet Take 1 tablet by mouth once daily. - ARIPiprazole (ABILIFY) 30 mg tablet Take 1 tablet by mouth once daily. - rivaroxaban (XARELTO) 20 mg tablet Take 1 tablet by mouth once daily. - ergocalciferol 50,000 unit capsule (VITAMIN D2, DRISDOL) Take 1 capsule by mouth one time a week. - cilostazol (PLETAL) 100 mg tablet Take 1 tablet by mouth two times a day. - folic acid 1 mg tablet Take 1 tablet by mouth once daily. - fluticasone (FLONASE) 50 mcg/actuation nasal spray Use 1 [place] in the nose as needed. - albuterol HFA (PROVENTIL HFA, VENTOLIN HFA) 90 mcg/actuation inhaler Inhale 2 Puffs as instructed every 6 hours as needed. - amLODIPine (NORVASC) 2.5 mg tablet Take 1 tablet by mouth once daily. - oxybutynin ER (DITROPAN XL) 10 mg 24 hr tablet Take 1 tablet by mouth once daily. - omeprazole (PRILOSEC) 40 mg capsule Take 1 capsule by mouth once daily. Problem List As Of Date 01/14/2025 Noted Resolved GERD (gastroesophageal reflux disease) [K21.9] 06/23/2013 Weight gain [R63.5] 06/23/2013 Other and unspecified hyperlipidemia [E78.5] 11/20/2014 Obesity (BMI 30-39.9) [E66.9] 11/20/2014 Anxiety state, unspecified [F41.1] 11/20/2014 Tobacco use disorder [F17.200] 11/18/2019 Breast abscess [N61.1] 08/06/2020 History of breast abscess [Z87.2] 12/17/2020 Family history of breast cancer [Z80.3] 12/17/2020 Breast mass, left [N63.20] 12/06/2021 Nipple discharge [N64.52] 12/06/2021 Alcohol abuse, in remission [F10.11] 03/24/2022 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HCC) [F19.11] 03/24/2022 Urinary incontinence, nocturnal enuresis [N39.4*01/01/2025 Mixed stress and urge urinary incontinence [N39*01/01/2025 Encounter Status:Closed by MILLY FELICIANO on 01/14/25 [facility] 01-12-2025 CNOV Office Visit (GENSWS ) ----- VINOD ANN ([id number]) 1975 F Date Time Provider Department 01/12/25 10:00 AM BLANCA LANDIS GENSWS During your visit today, we recorded the following information about you: Temperature Pulse Weight Height 97.5 degrees 122/minute 105 kg 1.651 m Blanca Landis APRN.CNP 01/12/2025 10:52 AM Signed HISTORY AND PHYSICAL Vinod Ann : 1975 REFERRING PHYSICIAN: No referring provider defined for this encounter. CHIEF COMPLAINT: Patient presents with: Consult: colonoscopy HPI: Vinod is a 49 year old female referred for endoscopy. Vinod notes soft stools 6 on the brist[facility] stool chart. Vinod notes abdominal pain. Some mild abdominal cramping prior to BM Vinod notes diarrhea. Vinod denies constipation. Vinod notes a change in bowel habits. Vinod denies melena. Vinod denies bright red blood per rectum. Vinod denies hemorrhoids. Vinod denies family history of colon issues. Vinod notes heartburn. -regurgitation into her mouth -relieved with drinking liquid -can be painful at times -taking Prilosec AND pepcid Vinod denies dysphagia. Vinod denies a history of ulcers/ peptic ulcer disease. 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 Denies CP, SOB, dizziness, palpitations, syncope, edema, recent hospitalizations Vinod has undergone prior endoscopy. Last colonoscopy was 09/[address] Carrillo at [facility]. Sedation:Midazolam 7 mg IV, Fentanyl 100 micrograms IV, Diphenhydramine 50 mg IV Impression: - Non-bleeding internal hemorrhoids. - Diverticulosis in the sigmoid colon, in the descending colon and in the ascending colon. - One 4 to 7 mm polyp in the descending colon, removed with a cold snare. Resected and retrieved. FINAL DIAGNOSIS Left colon, polypectomy: - Fragments of tubular adenoma. Current Outpatient Medications Medication Sig acetaminophen (TYLENOL EXTRA STRENGTH) 500 mg tablet Take 1,000 mg by mouth every 8 hours as needed for pain. famotidine (PEPCID) 40 mg tablet Take 1 tablet by mouth daily at bedtime. famotidine (PEPCID) 40 mg tablet Take 1 tablet by mouth daily at bedtime. aspirin 81 mg cap Take 81 mg by mouth once daily. prazosin (MINIPRESS) 2 mg cap Take 1 capsule by mouth daily at bedtime. mirtazapine (REMERON) 45 mg tablet Take 1 tablet by mouth daily at bedtime. rosuvastatin (CRESTOR) 10 mg tablet Take 1 tablet by mouth once daily. cloNIDine HCl (CATAPRES) 0.1 mg tablet Take 1 tablet by mouth once daily. ARIPiprazole (ABILIFY) 30 mg tablet Take 1 tablet by mouth once daily. rivaroxaban (XARELTO) 20 mg tablet Take 1 tablet by mouth once daily. ergocalciferol 50,000 unit capsule (VITAMIN D2, DRISDOL) Take 1 capsule by mouth one time a week. cilostazol (PLETAL) 100 mg tablet Take 1 tablet by mouth two times a day. folic acid 1 mg tablet Take 1 tablet by mouth once daily. fluticasone (FLONASE) 50 mcg/actuation nasal spray Use 1 [place] in the nose as needed. albuterol HFA (PROVENTIL HFA, VENTOLIN HFA) 90 mcg/actuation inhaler Inhale 2 Puffs as instructed every 6 hours as needed. amLODIPine (NORVASC) 2.5 mg tablet Take 1 tablet by mouth once daily. oxybutynin ER (DITROPAN XL) 10 mg 24 hr tablet Take 1 tablet by mouth once daily. omeprazole (PRILOSEC) 40 mg capsule Take 1 capsule by mouth once daily. peg 3350-Electrolytes (GOLYTELY) 236-22.74-6.74 -5.86 gram suspension Take 4,000 mL by mouth one time only for 1 dose. Refer to printed prep instructions from your provider. No current facility-administered medications for this visit. 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 , did have small relapse 02/15 with of mother Severe episode of recurrent major depressive disorder, without psychotic features ([facility]) Kendra Padilla Suicidal ideation PAST SURGICAL HISTORY Procedure Laterality Date ABDOMINAL SURGERY HX BREAST SURGERY HX BX OF BREAST; INCISIONAL Left 08/29/2019 [facility]- Benign COLONOSCOPY 09/22/2022 COLONOSCOPY FLX DX W/COLLJ SPEC WHEN PFRMD 12/01/2019 Colonoscopy PAST SURGICAL HISTORY OF 03/2010 gall bladder removed PAST SURGICAL HISTORY OF Left wrist surgery when she was 15 years old PAST SURGICAL HISTORY OF 2014 tubal ligation PAST SURGICAL HISTORY OF 02/2022 bilateral cyst removed, mil (more content not included)... Normal [facility] CNPNon 01-12-2025 CNPN Telephone (GENSWS) ----- VINOD ANN ([id number]) 1975 F [facility] Date Time Provider Department 01/12/25 BLANCA LANDIS During your visit today, we recorded the following information about you: Ant Easton 01/12/2025 10:57 AM Addendum 04-02-2025 Colon EGD [facility] , requested Cardiac/medical clearance from Ant Hodge [facility] (See Scheduling form ) Ant Dahl 01/21/2025 11:14 AM Signed received cardiac clearance patent to be off Blood thinner for 2 days Allergies As of Date: 01/12/2025 Noted Allergy Reaction CEPHALEXIN 02/26/2018 4 - Hives 6 - Diarrhea FENOFIBRATE 08/31/2019 14 - Other: See Comments Comments: Hives with GI upset (emesis) ZOLOFT (SERTRALINE HCL) 06/23/2013 4 - Hives 6 - Diarrhea ZYPREXA (OLANZAPINE) 04/04/2024 1 - Mental Status Change 4 - Hives CLINDAMYCIN 09/29/2019 4 - Hives Comments: States has take since with no issue 08/06/20. Elba Broussard MA Date Reviewed: 01/12/2025 Reviewed by: Blanca Landis APRN.HAND SCRAPER - Fully Assessed Reason for Visit: 04-02-2025 Colon EGD [Other] Prescriptions as of 03/26/2025 - omeprazole (PRILOSEC) 40 mg capsule Take 1 capsule by mouth once daily. - amLODIPine (NORVASC) 5 mg tablet Take 1 tablet by mouth once daily. - nystatin (MYCOSTATIN) powder Apply 1 application to affected area three times a day. - DULoxetine (CYMBALTA) 20 mg capsule Take 1 capsule by mouth two times a day. - nicotine (NICODERM) 21 mg/24 hr Apply 1 patch as directed every 24 hours. - nicotine (NICODERM) 14 mg/24 hr Apply 1 patch as directed every 24 hours. Patient should start on March 14, 2025. - oxybutynin ER (DITROPAN XL) 15 mg 24 hr Extended Rel Tab Take 1 tablet by mouth once daily. - acetaminophen (TYLENOL EXTRA STRENGTH) 500 mg tablet Take 1,000 mg by mouth every 8 hours as needed for pain. - aspirin 81 mg cap Take 81 mg by mouth once daily. - prazosin (MINIPRESS) 2 mg cap Take 1 capsule by mouth daily at bedtime. - mirtazapine (REMERON) 45 mg tablet Take 1 tablet by mouth daily at bedtime. - rosuvastatin (CRESTOR) 10 mg tablet Take 1 tablet by mouth once daily. - cloNIDine HCl (CATAPRES) 0.1 mg tablet Take 1 tablet by mouth once daily. - ARIPiprazole (ABILIFY) 30 mg tablet Take 1 tablet by mouth once daily. - rivaroxaban (XARELTO) 20 mg tablet Take 1 tablet by mouth once daily. - ergocalciferol 50,000 unit capsule (VITAMIN D2, DRISDOL) Take 1 capsule by mouth one time a week. - cilostazol (PLETAL) 100 mg tablet Take 1 tablet by mouth two times a day. - folic acid 1 mg tablet Take 1 tablet by mouth once daily. - fluticasone (FLONASE) 50 mcg/actuation nasal spray Use 1 [place] in the nose as needed. - albuterol HFA (PROVENTIL HFA, VENTOLIN HFA) 90 mcg/actuation inhaler Inhale 2 Puffs as instructed every 6 hours as needed. Problem List As Of Date 01/12/2025 Noted Resolved GERD (gastroesophageal reflux disease) [K21.9] 06/23/2013 Weight gain [R63.5] 06/23/2013 Other and unspecified hyperlipidemia [E78.5] 11/20/2014 Obesity (BMI 30-39.9) [E66.9] 11/20/2014 Anxiety state, unspecified [F41.1] 11/20/2014 Tobacco use disorder [F17.200] 11/18/2019 Breast abscess [N61.1] 08/06/2020 History of breast abscess [Z87.2] 12/17/2020 Family history of breast cancer [Z80.3] 12/17/2020 Breast mass, left [N63.20] 12/06/2021 Nipple discharge [N64.52] 12/06/2021 Alcohol abuse, in remission [F10.11] 03/24/2022 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HCC) [F19.11] 03/24/2022 Urinary incontinence, nocturnal enuresis [N39.4*01/01/2025 Mixed stress and urge urinary incontinence [N39*01/01/2025 Encounter Status:Closed by ANT EASTON on 03/26/25 Normal [facility] PVR ANK PRESS RM VAS LABon 01-08-2025 PVR ANK PRESS RM VAS LAB Non-Invasive Vascular Laboratory [facility] Lower Extremity Arterial Physiology Study Bilateral/Complete Date of service/time: 01/08/2025 1:34:05 PM Name: MS. VINOD ANN Date of : 1975 Age: 49 years Gender: F Clinical Indication Decreased pulses. TECHNIQUE -------- An arterial physiological examination was performed, including measurement of blood pressures using continuous wave Doppler and recording of plethysmographic with or without Doppler waveforms at the below-mentioned limb segments. FINDINGS -------- RIGHT SIDE AT REST Right Doppler Waveforms Dorsalis pedis: Multiphasic. Post tibial: Multiphasic. Right Pressures Brachial: 119 mmHg Ankle dorsalis pedis: 130 mmHg SAVANNA: 1.08 Ankle posterior tibial: 130 mmHg SAVANNA: 1.08 Digit: 76 mmHg Right PVR Waveforms Ankle: Normal. Digit: Moderately dampened. LEFT SIDE AT REST Left Doppler Waveforms Dorsalis pedis: Multiphasic. Post tibial: Multiphasic. Left Pressures Brachial: 120 mmHg Ankle dorsalis pedis: 132 mmHg SAVANNA: 1.10 Ankle posterior tibial: 134 mmHg SAVANNA: 1.12 Digit: 105 mmHg Left PVR Waveforms Ankle: Normal. Digit: Normal. IMPRESSION RIGHT SIDE Resting right ankle brachial index: 1.08 Right toe brachial index: 0.63 Normal ankle brachial index at rest in the right leg. Abnormal toe brachial index at rest is evidence of peripheral artery disease. Right ankle: Normal at rest. Right small vessel disease versus vasoconstriction. LEFT SIDE Resting left ankle brachial index: 1.12 Left toe brachial index: 0.88 Normal ankle brachial index at rest in the left leg. Normal toe brachial index at rest in the left leg. Left ankle: Normal at rest. Technologist: Sintia Brennan RVT [facility] Ordering physician: TORRI PATEL Interpreting physician: STEPHEN Velazquez DO Final CC [employer] [facility] Image : [id number] See Link below for Image Normal [facility] CNOVon 01-07-2025 CNOV Office Visit (GENSWS ) ----- VINOD ANN ([id number]) 1975 F Date Time Provider Department 01/07/25 1:30 PM FRANCO ROBLERO During your visit today, we recorded the following information about you: Temperature 97.5 degrees Franco Roblero MD 01/08/2025 8:29 PM Signed FOLLOW UP VISIT NAME: Vinod Paris [facility] NO.: [id number] DATE OF SERVICE: January 07, 2025 : 1975 REFERRING PHYSICIAN: Isatu Nieto MD Vinod is a patient I am following for history of left breast abscesses. I had last seen Vinod on April 04, 2024. At that time I noted: The patient is a 49 year old female with a complaint of a palpable breast mass. The patient notes a mass in the retroaerolar portion to slightly medial area of her left breast. The patient has noticed this mass for a long time. The patient had a mammogram and ultrasound obtained the the [facility] on February 21, 2024 which demonstrated: IMPRESSION: Finding 1 Masses in both breasts are benign. Finding 2 Irregular mass in the left breast at 9 o'clock, 2 cm from the nipple is suspicious. It extends into the nipple. An ultrasound guided biopsy is recommended. Finding 3 Abnormal lymph node in the left axilla is suspicious. An ultrasound guided biopsy is recommended. I discussed the findings and results with the patient over the phone at the time of the interpretation. The Breast Center Navigator will consult with the patient regarding the recommendations including Breast Clinic referral recommendation. An Epic message with the recommendations of Breast Surgery Clinic referral and breast biopsy will be submitted by the Breast Center Navigator to Makayla Morley on 02/21/2024 at the time of interpretation. The Breast Center Navigator will schedule the appropriate appointments for the patient. Finding 4 Area of skin thickening in the right breast at 3 o'clock, 2 cm from the nipple is benign. BI-RADS Category 4: Suspicious I had seen this patient on August 16, 2023. At that time I noted: The patient is a 48 year old female with a complaint of nonhealing wound and discharge from her left nipple. The patient has a longstanding history of breast abscesses nipple discharge and infections. She has had multiple incision and drainage procedures of the left periareolar area. Most of these were performed at [facility] in [facility]. The patient is also seen Dr. Watson in the past. He advised against additional drainages when he saw the patient. The patient presents to multiple different ERs with these complaints. She states that after the most recent incision and drainage she has a chronic site which generally does not heal just along the medial aspect of her left nipple. She presented to [facility] emergency department ER with these complaints. Ultrasound of the breast was obtained which demonstrated no abscesses and no specific abnormalities. She followed up with Dr. Nieto. She noted some blood and pus draining from the nipple at that time. This was sent for culture returned as actinomyces. The patient was given doxycycline. She denies fever or chills. The patient is somewhat complicated history. She smokes 2 packs cigarettes a day. She snorts and smokes crystal methamphetamine. She had abstained from methamphetamine for the last 2 weeks when I had initially evaluated her in February. She has had issues with follow up and missing appointment. She notes chronic scabs with occasional drainage from sites on both medial nipple aerolar sites. SHe has not had breast imagine for some time. I noted at that time on exam: Left breast-no fluctuance or significant erythema. At the 9 o'clock position relative to the nipple areolar complex there is a scarred area with a small scab consistent with her previous multiple incisions. No drainage currently. Right breast - 3 oclock scab, also no fluctuance or drainage. Intraoffice ultrasound demonstrated no obvious abscess along that tract. There did appear to be multiple postsurgical changes/scarring in the area There appears to be a dilated duct under the right scab/drainage site. There is some retraction at the left site with no ultrasound abnormalities. I recommended mammogram and ultrasound which was ordered. The patient failed to have those studies and I understand moved to [place] where she had the above imaging. She has a history of PVD. She is on Xeralto and was planning to have a lower extremity non invasive study later this afternoon. The patient was followed by Dr. Raymundo Pisano in [facility]. The patient moved to [place] and was receiving close surgical care from him at that time. She had undergone a smaller excision of the central chronic abscess on September 26, 2024. There was poorly healing and then underwent a wider resection with excision of nipple/ (more content not included)... Normal [facility] CNOVon 01-01-2025 CNOV Office Visit (OBGYWM ) ----- VINOD ANN Raian ([id number]) 1975 F Date Time Provider Department 01/01/25 10:45 AM BRANDO LOPEZ OBGYWM During your visit today, we recorded the following information about you: Blood pressure Weight Height 132/70 101.6 kg 1.651 m Brando Lopez APRN.[facility] 01/01/2025 11:12 AM Signed Liaison Officer offered: Patient declinesHaven Santos is a 49 year old who presents for an annual gynecologic exam without complaints. Postmenopausal: Yes since age 39 HRT use: No. Age at Menarche: 10 Still get period: No Sexually active: No Contraception: Tubal Contraception frequency: Always HPV vaccine: N/A Last pap smear: 06/26/22 History of abnormal pap: Yes Colposcopy: Yes: Leep: Yes: Cone biopsy: No. Bothersome pelvic pain: No Last mammogram: 2023 Diag hx left biopsy History of abnormal mammogram: Yes Sexually active: No Hot flashes: Yes Night sweats: Yes Vaginal dryness: No Not sexually active for over 1 year OB History Gravida5 Para2 Term1 Preterm1 AB3 Living1 SAB3 IAB0 Ectopic0 Multiple0 Live Births1 Comment: One baby stillborn Lpn Cma History LMP: 08/06/2020, Postmenopausal Age at Menarche: Age at First : Age at Menopause: Lpn Cma History Comments: Sexual Activity: Not Currently; No partner data on record Contraception: No contraception data on record 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 02/15 with of mother Severe episode of recurrent major depressive disorder, without psychotic features ([facility]) Kendra Padilla Suicidal ideation PAST SURGICAL HISTORY Procedure Laterality Date ABDOMINAL SURGERY HX BREAST SURGERY HX BX OF BREAST; INCISIONAL Left 08/29/2019 [facility]- Benign COLONOSCOPY 09/22/2022 COLONOSCOPY FLX DX W/COLLJ SPEC WHEN PFRMD 12/01/2019 Colonoscopy PAST SURGICAL HISTORY OF 03/2010 gall bladder removed PAST SURGICAL HISTORY OF Left wrist surgery when she was 15 years old PAST SURGICAL HISTORY OF 2014 tubal ligation PAST SURGICAL HISTORY OF 02/2022 bilateral cyst removed, [place] FAMILY HISTORY Problem Relation Age of Onset Lung Cancer Mother at 63 Osteoporosis Mother Alcohol/Drug Mother alcohol Hypertension Father Alcohol/Drug Father alcohol Aneurysm Father abdominal Prostate Cancer Father Alcohol/Drug Sister drugs other (Aids) Sister drug user Aneurysm Sister head Breast Cancer Paternal Grandmother late 50's or 60's Alcohol/Drug Niece Ovarian cancer Niece diagnosed young SOCIAL HISTORY Social History Tobacco Use Smoking status: Every Day Current packs/day: 1.00 Average packs/day: 2.0 packs/day for 37.2 years (73.7 ttl pk-yrs) Types: Cigarettes Start date: 1987 Smokeless tobacco: Never Vaping Use Vaping status: Former Substances: Nicotine, Flavoring Devices: Disposable Substance Use Topics Alcohol use: Not Currently Comment: quit , small relapse in 02/15 with of mother. Drug use: Not Currently Types: Crystal Meth Comment: Sober since 04/19/2024 REVIEW OF SYSTEMS Abdomen: No abdominal pain, nausea, vomiting, diarrhea, or constipation. No bloating, early satiety, indigestion, or increased flatulence. Bladder: POSITIVE FOR URGENCY< FREQUENCY and incontinence - mixed Breast: No breast lumps, nipple d/c, overlying skin changes, redness or skin retraction and recent removal of left nipple from cyst. Allergies and current medication updated:Yes SENSITIVE EXAM: The sensitive examination was discussed with the Patient or Patient's Authorized White Spooler. As applicable, any other physician, advance practice provider, medical student, or other health professional student that will be observing or involved in the sensitive examination for educational or training purposes was discussed with the Patient or Authorized White Spooler. The Patient or Authorized White Spooler has agreed to proceed with the sensitive examination. (Sensitive examination includes inspection and/or palpation of the breasts, pelvis, prostate and anorectal regions). EXAM: BP 132/70 Ht 5' 5 (1.65m) Wt 224 lb (101.6kg) LMP 08/06/2020 BMI 37.28 kg/(m2). GENERAL: pleasant, female in no apparent distress HEENT: Normocephalic and atraumatic NECK: Supple and full range of motion DERMATOLOGY: Normal and without lesions BREAST: soft, non-tender, symmetric, no dominant mass, normal nipple-areolar complex, no lymphadenopathy, no n (more content not included)... Normal [facility] CNOVon 12-31-2024 CNOV Office Visit (GENSWS ) ----- VINOD ANN ([id number]) 1975 F Date Time Provider Department 12/31/24 10:30 AM BLANCA LANDIS GENSWS During your visit today, we recorded the following information about you: Temperature 97.9 degrees Blanca Landis APRN.HAND SCRAPER 12/31/2024 10:58 AM Signed HISTORY AND PHYSICAL Vinod Ann 1975 REFERRING PHYSICIAN: No ref. provider found CHIEF COMPLAINT: Left breast abscesses wound follow up My visit with Vinod was 12/03/24 HPI: The patient is a 49 year old female with a complaint of healing breast abscess. Vinod is a patient of Dr. Roblero that I am seeing today to check her left breast wound. She has had an extensive hx of left breast abscess including multiple IANDDs at multiple Eds AND use of a wound VAC for healing after surgical intervention in [place] where she use to reside. I saw her last week with Dr. Roblero and the would is healing nicely. He instructed her to continuing with the wet to dry dressing and that he would expect this week she should be able to just place a dry dressing on the area. Vinod notes no concerns. She is using tylenol 1000mg TID for pain relief. She is changing the dressing BID AND notes no concerns of infection, increased drainage, swelling, redness or pain. Patient's past medical history is significant for 2 ppd smoker, drug abuse, DVT AND obesity. Vinod saw Dr. Roblero last week AND it was noted that her wound was healing well with one area of hypertrophic granulation tissue that he treated with silver nitrate. Instructions were to continue with dry dressings until the wound is properly healed. My visit with Vinod on 12/2024 Today she presents for ongoing wound management. She notes no concerns. Pain is controlled. She notes she is changing her dressing daily. Denies signs of infection including fever, chills, increased redness,warmth, swelling, drainage or pain. Today Vinod presents for ongoing wound management. She has no concerns. Pain is controlled. She notes she is changing her dressing daily. Denies signs of infection including fever, chills, increased redness,warmth, swelling, drainage or esther Vitals: Temp: 36.6 ?C (97.9 ?F) Temp src: Temporal Exam: On examination the central left breast incision open wound has healthy appearing granulation tissue with no signs of infection. IMPRESSION: Status post left central lumpectomy for chronic abscess. PLAN: ASSESSMENT/PLAN: 1. Breast abscess - ICD9: 611.0, ICD10: N61.1 - Continue with dry dressings until the wound is properly healed. - Notify our office with any concerns of infection Discussed treatment plan and patient voices understanding. Patient's questions answered appropriately. Return to the office in one week. Blanca Landis APRN.HAND SCRAPER Allergies As of Date: 12/31/2024 Noted Allergy Reaction CEPHALEXIN 02/26/2018 4 - Hives 6 - Diarrhea FENOFIBRATE 08/31/2019 14 - Other: See Comments Comments: Hives with GI upset (emesis) ZOLOFT (SERTRALINE HCL) 06/23/2013 4 - Hives 6 - Diarrhea ZYPREXA (OLANZAPINE) 04/04/2024 1 - Mental Status Change 4 - Hives CLINDAMYCIN 09/29/2019 4 - Hives Comments: States has take since with no issue 08/06/20. Elba Broussard MA Date Reviewed: 12/31/2024 Reviewed by: Blanca Landis APRN.HAND SCRAPER - Fully Assessed Reason for Visit: Follow Up [171] Cmt: Breast abscess Primary Visit Diagnosis:Breast abscess [N61.1] Prescriptions as of 12/31/2024 - ergocalciferol 50,000 unit capsule (VITAMIN D2, DRISDOL) Take 1 capsule by mouth one time a week. - acetaminophen (TYLENOL) 500 mg tablet Take 2 tablets by mouth every 8 hours as needed for pain. - cilostazol (PLETAL) 100 mg tablet Take 1 tablet by mouth two times a day. - cloNIDine HCl (CATAPRES) 0.1 mg tablet Take 1 tablet by mouth once daily. - ARIPiprazole (ABILIFY) 20 mg tablet Take 30 mg by mouth once daily. - mirtazapine (REMERON) 45 mg tablet Take 45 mg by mouth daily at bedtime. - prazosin (MINIPRESS) 2 mg cap Take 2 mg by mouth daily at bedtime. - folic acid 1 mg tablet Take 1 tablet by mouth once daily. - fluticasone (FLONASE) 50 mcg/actuation nasal spray Use 1 [place] in the nose as needed. - albuterol HFA (PROVENTIL HFA, VENTOLIN HFA) 90 mcg/actuation inhaler Inhale 2 Puffs as instructed every 6 hours as needed. - rivaroxaban (XARELTO) 20 mg tablet Take 20 mg by mouth once daily. - rosuvastatin (CRESTOR) 10 mg tablet Take 10 mg by mouth once daily. - aspirin 81 mg cap Take 81 mg by mouth once daily. - amLODIPine (NORVASC) 2.5 mg tablet Take 1 tablet by mouth once daily. - oxybutynin ER (DITROPAN XL) 10 mg 24 hr tablet Take 1 tablet by mouth once daily. - omeprazole (PRILOSEC) 40 mg capsule Take 1 capsule by mouth once daily. Problem List As Of Date 12/31/2024 Noted Resolved GERD (gastroesophageal reflux disease) [K21.9] (more content not included)... Normal [facility] CNOVon 12-25-2024 CNOV Office Visit (GENSWS ) ----- VINOD ANN ([id number]) 1975 F Date Time Provider Department 12/25/24 9:00 AM BLANCA LANDIS During your visit today, we recorded the following information about you: Temperature Pulse Respiration Blood pressure 97.8 degrees 104/minute 14/minute 106/70 Blanca Landis APRN.CNP 12/25/2024 9:42 AM Signed HISTORY AND PHYSICAL Vinod Paris Seth 1975 REFERRING PHYSICIAN: No ref. provider found CHIEF COMPLAINT: Left breast abscesses wound follow up My last visit with Vinod was 12/03/24 HPI: The patient is a 49 year old female with a complaint of healing breast abscess. Vinod is a patient of Dr. Roblero that I am seeing today to check her left breast wound. She has had an extensive hx of left breast abscess including multiple IANDDs at multiple Eds AND use of a wound VAC for healing after surgical intervention in [place] where she use to reside. I saw her last week with Dr. Roblero and the would is healing nicely. He instructed her to continuing with the wet to dry dressing and that he would expect this week she should be able to just place a dry dressing on the area. Vinod notes no concerns. She is using tylenol 1000mg TID for pain relief. She is changing the dressing BID AND notes no concerns of infection, increased drainage, swelling, redness or pain. Patient's past medical history is significant for 2 ppd smoker, drug abuse, DVT AND obesity. Vinod saw Dr. Roblero last week AND it was noted that her wound was healing well with one area of hypertrophic granulation tissue that he treated with silver nitrate. Instructions were to continue with dry dressings until the wound is properly healed. Today she presents for ongoing wound management. She notes no concerns. Pain is controlled. She notes she is changing her dressing daily. Denies signs of infection including fever, chills, increased redness,warmth, swelling, drainage or pain. Vitals: BP: 106/70 Temp: 36.6 ?C (97.8 ?F) Temp src: Temporal Pulse: 104 Resp: 14 SpO2: 95 % Exam: On examination the central left breast incision open wound has healthy appearing granulation tissue with no signs of infection. I did not see any residual areas of hypergranulation tissue. IMPRESSION: Status post left central lumpectomy for chronic abscess. PLAN: ASSESSMENT/PLAN: 1. History of breast abscess - ICD9: V13.3, ICD10: Z87.2 - Continue with dry dressings until the wound is properly healed. - Notify our office with any concerns of infection Discussed treatment plan and patient voices understanding. Patient's questions answered appropriately. Return to the office in one week. Blanca Landis APRN.HAND SCRAPER Allergies As of Date: 12/25/2024 Noted Allergy Reaction CEPHALEXIN 02/26/2018 4 - Hives 6 - Diarrhea FENOFIBRATE 08/31/2019 14 - Other: See Comments Comments: Hives with GI upset (emesis) ZOLOFT (SERTRALINE HCL) 06/23/2013 4 - Hives 6 - Diarrhea ZYPREXA (OLANZAPINE) 04/04/2024 1 - Mental Status Change 4 - Hives CLINDAMYCIN 09/29/2019 4 - Hives Comments: States has take since with no issue 08/06/20. Elba Broussard MA Date Reviewed: 12/25/2024 Reviewed by: Lamar Hummel LPN - Fully Assessed Reason for Visit: Incision check [Other] Primary Visit Diagnosis:History of breast abscess [Z87.2] Prescriptions as of 12/25/2024 - acetaminophen (TYLENOL) 500 mg tablet Take 2 tablets by mouth every 8 hours as needed for pain. - cilostazol (PLETAL) 100 mg tablet Take 1 tablet by mouth two times a day. - cloNIDine HCl (CATAPRES) 0.1 mg tablet Take 1 tablet by mouth once daily. - famotidine (PEPCID) 40 mg tablet Take 1 tablet by mouth daily at bedtime. - ARIPiprazole (ABILIFY) 20 mg tablet Take 30 mg by mouth once daily. - mirtazapine (REMERON) 45 mg tablet Take 45 mg by mouth daily at bedtime. - prazosin (MINIPRESS) 2 mg cap Take 2 mg by mouth daily at bedtime. - folic acid 1 mg tablet Take 1 tablet by mouth once daily. - fluticasone (FLONASE) 50 mcg/actuation nasal spray Use 1 [place] in the nose as needed. - albuterol HFA (PROVENTIL HFA, VENTOLIN HFA) 90 mcg/actuation inhaler Inhale 2 Puffs as instructed every 6 hours as needed. - rivaroxaban (XARELTO) 20 mg tablet Take 20 mg by mouth once daily. - rosuvastatin (CRESTOR) 10 mg tablet Take 10 mg by mouth once daily. - aspirin 81 mg cap Take 81 mg by mouth once daily. - amLODIPine (NORVASC) 2.5 mg tablet Take 1 tablet by mouth once daily. - oxybutynin ER (DITROPAN XL) 10 mg 24 hr tablet Take 1 tablet by mouth once daily. - ergocalciferol 50,000 unit capsule (VITAMIN D2, DRISDOL) Take 1 capsule by mouth one time a week. - omeprazole (PRILOSEC) 40 mg capsule Take 1 capsule by mouth once daily. Problem List As Of Date 12/25/2024 Noted Resolved GERD (gastroesophageal reflux disease) [K21.9] 06/23/2013 Weight gain [R63. (more content not included)... Normal [facility] CNCOon 12-22-2024 CNCO Letter Text Normal [facility] CNOVon 12-18-2024 CNOV Office Visit (PODIWS ) ----- VINOD ANN ([id number]) 1975 F Date Time Provider Department 12/18/24 11:30 AM TORRI PATEL PODIWS During your visit today, we recorded the following information about you: Liana Polanco LPN 12/18/2024 10:03 PM Signed AMB ROOMING INTAKE FLOWSHEET DATA Pain Pain Level: 5 Pain Location: Other: See Comment (bilateral) Description: Aching, Dull Duration Amount of Time: 6 Duration Units: Months Frequency: Intermittent Intervention/Comfort measure: Reposition, Relaxation Patient presents with: Left Foot - New, Pain Right Foot - New, Pain Right Great Toe - New, Ingrown Toenail, Pain ZULEMA Leonardo Matthew 12/18/2024 10:03 PM Signed Consultation requested by Dr. Nieto for an opinion regarding foot pain. My final recommendations will be communicated back to the requesting physician by way of shared Medical record or letter to requesting physician via US mail. Initial Podiatric Office Visit: Chief Complaint: This 49 year old female who presents with chief complaint:bunions of both fifth toes. Also complains of ingrowing toenail HPI Patient presents to clinic for initial evaluation of b/l feet. Her greatest complaint is tailors bunion of b/l feet. The bunions have been an ongoing issue for years and has led to callus. Patient had been seeing another professor of radiology here in town who would file the callus down. She is no longer going there. She is not currently doing anything for the bunion. In addition to the bunion/callus, she complains of ingrowing toenails. She did have an ingrown toenail of right hallux that she states was trimmed out by the former professor of radiology, about 6 months ago. She complains of pain to her toenails. Patient is borderline diabetic. Patient smokes 1-1.5 packs of cigarettes/day. PAIN EVALUATION 12/18/2024 1104 Pain Level: 5 Pain Location: Other: See Comment bilateral Description: Aching;Dull Duration Amount of Time: 6 Duration Units: Months Frequency: Intermittent Intervention/Comfort measure: Reposition;Relaxation Hemoglobin A1C (%) Date Value 12/16/2024 6.1 03/27/2023 5.8 Hemoglobin A1C (POCT) (%) Date Value 08/17/2023 5.8 PCP: Isatu Nieto MD PAST MEDICAL HISTORY Diagnosis Date Anxiety state, unspecified 11/20/2014 Arthritis Bleeding stomach ulcer Breast infection in female bilateral reoccurant Delayed emergence from general anesthesia GERD (gastroesophageal reflux disease) Hiatal hernia 02/2015 Obesity (BMI 30-39.9) 11/20/2014 Other and unspecified hyperlipidemia 11/20/2014 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 cilostazol (PLETAL) 100 mg tablet Take 1 tablet by mouth two times a day. cloNIDine HCl (CATAPRES) 0.1 mg tablet Take 1 tablet by mouth once daily. famotidine (PEPCID) 40 mg tablet Take 1 tablet by mouth daily at bedtime. ARIPiprazole (ABILIFY) 20 mg tablet Take 30 mg by mouth once daily. mirtazapine (REMERON) 45 mg tablet Take 45 mg by mouth. prazosin (MINIPRESS) 2 mg cap Take 2 mg by mouth daily at bedtime. folic acid 1 mg tablet Take 1 tablet by mouth once daily. fluticasone (FLONASE) 50 mcg/actuation nasal spray Use 1 [place] in the nose as needed. albuterol HFA (PROVENTIL HFA, VENTOLIN HFA) 90 mcg/actuation inhaler Inhale 2 Puffs as instructed every 6 hours as needed. rivaroxaban (XARELTO) 20 mg tablet Take 20 mg by mouth. rosuvastatin (CRESTOR) 10 mg tablet Take 10 mg by mouth once daily. aspirin 81 mg cap Take 81 mg by mouth once daily. amLODIPine (NORVASC) 2.5 mg tablet Take 1 tablet by mouth once daily. oxybutynin ER (DITROPAN XL) 10 mg 24 hr tablet Take 1 tablet by mouth once daily. ergocalciferol 50,000 unit capsule (VITAMIN D2, DRISDOL) Take 1 capsule by mouth one time a week. omeprazole (PRILOSEC) 40 mg capsule Take 1 capsule by mouth once daily. No current facility-administered medications for this visit. ALLERGIES Allergen Reactions Cephalexin Hives, Diarrhea Fenofibrate Other: See Comments Hives with GI upset (emesis) Zoloft [Sertraline * Hives, Diarrhea Zyprexa [Olanzapine] Mental Status Change, Hives Clindamycin Hives States has take since with no issue 08/06/20. Elba Broussard MA PAST SURGICAL HISTORY Procedure Laterality Date ABDOMINAL SURGERY HX BREAST SURGERY HX BX OF BREAST; INCISIONAL Left 08/29/2019 [facility]- Benign COLONOSCOPY 09/22/2022 COLONOSCOPY FLX DX W/COLLJ SPEC WHEN PFRMD 12/01/2019 Colonoscopy PAST SURGICAL HISTORY OF 03/2010 gall bladder removed PAST SURGICAL (more content not included)... Normal [facility] XR FOOT 3V AP/LAT/OBL BILon 12-18-2024 XR FOOT 3V AP/LAT/OBL RM * * *Final Report* * * DATE OF EXAM: Dec 18 2024 11:04AM [id number] - XR FOOT 3V AP/LAT/OBL RM / PROCEDURE REASON: Pain * * * * Physician Interpretation * * * * EXAM(s): XR FOOT 3V AP/LAT/OBL RM..... HISTORY: 49 years old Clinical information: Pain PT STATES BILAT TOE PAIN TECHNIQUE: Images: XR FOOT 3V AP/LAT/OBL RM Comparison: None. RESULT: Findings: Bilateral plantar and dorsal calcaneal osteophytes. 1 cm osteophyte vs exostosis at the lateral margin of the base of the proximal phalanx of the right great toe. Interphalangeal joint spaces normally maintained. Tarsal bones intact. Mild sclerosis at the base of the metatarsals of all 5 toes. No soft tissue swelling. Sclerosis at the articulation between the calcaneus and tarsal navicular bilaterally. IMPRESSION: Mild osteoarthritic changes Insulation Batting Machine Operator: MAGGI Transcribe Date/Time: Dec 19 2024 3:24P Dictated by : TREY MUHAMMAD MD This examination was interpreted and the report reviewed and electronically signed by: TREY MUHAMMAD MD on Dec 19 2024 3:27PM EST [id number] Normal [facility] CNOVon 12-17-2024 CNOV Office Visit (GENSWS ) ----- VINOD ANN ([id number]) 1975 F Date Time Provider Department 12/17/24 9:15 AM FRANCO ROBLERO During your visit today, we recorded the following information about you: Temperature Pulse Respiration Blood pressure 98.5 degrees 122/minute 19/minute 110/76 Weight 102.2 kg Franco Roblero MD 12/17/2024 12:35 PM Signed FOLLOW UP VISIT NAME: Vinod Paris [facility] NO.: [id number] DATE OF SERVICE: December 17, 2024 : 1975 REFERRING PHYSICIAN: Isatu Nieto MD Vinod is a patient I am following for history of left breast abscesses. I had last seen Vinod on April 04, 2024. At that time I noted: The patient is a 49 year old female with a complaint of a palpable breast mass. The patient notes a mass in the retroaerolar portion to slightly medial area of her left breast. The patient has noticed this mass for a long time. The patient had a mammogram and ultrasound obtained the the [facility] on February 21, 2024 which demonstrated: IMPRESSION: Finding 1 Masses in both breasts are benign. Finding 2 Irregular mass in the left breast at 9 o'clock, 2 cm from the nipple is suspicious. It extends into the nipple. An ultrasound guided biopsy is recommended. Finding 3 Abnormal lymph node in the left axilla is suspicious. An ultrasound guided biopsy is recommended. I discussed the findings and results with the patient over the phone at the time of the interpretation. The Breast Center Navigator will consult with the patient regarding the recommendations including Breast Clinic referral recommendation. An Epic message with the recommendations of Breast Surgery Clinic referral and breast biopsy will be submitted by the Breast Center Navigator to Makayla Morley on 02/21/2024 at the time of interpretation. The Breast Center Navigator will schedule the appropriate appointments for the patient. Finding 4 Area of skin thickening in the right breast at 3 o'clock, 2 cm from the nipple is benign. BI-RADS Category 4: Suspicious I had seen this patient on August 16, 2023. At that time I noted: The patient is a 48 year old female with a complaint of nonhealing wound and discharge from her left nipple. The patient has a longstanding history of breast abscesses nipple discharge and infections. She has had multiple incision and drainage procedures of the left periareolar area. Most of these were performed at [facility] in [facility]. The patient is also seen Dr. Watson in the past. He advised against additional drainages when he saw the patient. The patient presents to multiple different ERs with these complaints. She states that after the most recent incision and drainage she has a chronic site which generally does not heal just along the medial aspect of her left nipple. She presented to [facility] emergency department ER with these complaints. Ultrasound of the breast was obtained which demonstrated no abscesses and no specific abnormalities. She followed up with Dr. Nieto. She noted some blood and pus draining from the nipple at that time. This was sent for culture returned as actinomyces. The patient was given doxycycline. She denies fever or chills. The patient is somewhat complicated history. She smokes 2 packs cigarettes a day. She snorts and smokes crystal methamphetamine. She had abstained from methamphetamine for the last 2 weeks when I had initially evaluated her in February. She has had issues with follow up and missing appointment. She notes chronic scabs with occasional drainage from sites on both medial nipple aerolar sites. SHe has not had breast imagine for some time. I noted at that time on exam: Left breast-no fluctuance or significant erythema. At the 9 o'clock position relative to the nipple areolar complex there is a scarred area with a small scab consistent with her previous multiple incisions. No drainage currently. Right breast - 3 oclock scab, also no fluctuance or drainage. Intraoffice ultrasound demonstrated no obvious abscess along that tract. There did appear to be multiple postsurgical changes/scarring in the area There appears to be a dilated duct under the right scab/drainage site. There is some retraction at the left site with no ultrasound abnormalities. I recommended mammogram and ultrasound which was ordered. The patient failed to have those studies and I understand moved to [place] where she had the above imaging. She has a history of PVD. She is on Xeralto and was planning to have a lower extremity non invasive study later this afternoon. The patient was followed by Dr. Raymundo Pisano in [facility]. The patient moved to [place] and was receiving close surgical care from him at that time. She had undergone a smaller excision of the central chronic abscess on September 26, 2024. (more content not included)... Normal [facility] 25(OH)D3 [facility] 2024 25-hydroxyvitamin D3 [Mass/Vol] 54.1 ng/mL Normal 31.0-80.0 [facility] Comment on above: Order Comment: Speci men Type: BLOOD SPECIMEN Ordering Facility: [facility] Address: [address] [place] [address] [place] [address] Result Comment: Clas sification of 25 [place] Vitamin D status: Deficiency/Insufficiency: < or = 30 ng/ml. Sufficiency/Optimal Levels: 31-80 ng/mL Toxicity: > 100 ng/mL. Test performed by chemiluminescent immunoassay. Performed By: #### 1 989-3 #### [facility] CLIA [id number] [address] [place] [address] [place] CBC W Auto Differential pane l (Bld)on 12-16-2024 Basophils (Bld) [#/Vol] 0.06 10*3/uL Normal <0.11 [facility] Comment on above: Order Comment: Speci men Type: BLOOD SPECIMEN Ordering Facility: [facility] Address: [address] [place] [address] Performed By: #### 5 7021-8 #### [facility] CLIA [id number] [address] [place] [address] [place] Basophils/100 WBC (Bld) 0.7 % Normal [facility] Comment on above: Order Comment: Speci men Type: BLOOD SPECIMEN Ordering Facility: [facility] Address: [address] [place] [address] Performed By: #### 5 7021-8 #### [facility] CLIA [id number] [address] [place] [address] [place] Differential cell count method Nom (Bld) Auto Normal [facility] Comment on above: Order Comment: Speci men Type: BLOOD SPECIMEN Ordering Facility: [facility] Address: [address] [place] [address] Performed By: #### 5 7021-8 #### [facility] CLIA [id number] [address] [place] [address] [place] Eosinophils (Bld) [#/Vol] 0.21 10*3/uL Normal <0.46 [facility] Comment on above: Order Comment: Speci men Type: BLOOD SPECIMEN Ordering Facility: [facility] Address: [address] [place] [address] Performed By: #### 5 7021-8 #### [facility] CLIA [id number] [address] [place] [address] [place] Eosinophils/100 WBC (Bld) 2.5 % Normal [facility] Comment on above: Order Comment: Speci men Type: BLOOD SPECIMEN Ordering Facility: [facility] Address: [address] [place] [address] Performed By: #### 5 7021-8 #### [facility] CLIA [id number] [address] [place] [address] [place] Erythrocyte distribution width (RBC) [Ratio] 14.4 % Normal 11.5-15.0 [facility] Comment on above: Order Comment: Speci men Type: BLOOD SPECIMEN Ordering Facility: [facility] Address: [address] [place] [address] Performed By: #### 5 7021-8 #### [facility] CLIA [id number] [address] [place] [address] [place] Hematocrit (Bld) [Volume fraction] 41.3 % Normal 36.0-46.0 [facility] Comment on above: Order Comment: Speci men Type: BLOOD SPECIMEN Ordering Facility: [facility] Address: [address] [place] [address] Performed By: #### 5 7021-8 #### [facility] CLIA [id number] [address] [place] [address] [place] Hemoglobin (Bld) [Mass/Vol] 13.3 g/dL Normal 11.5-15.5 [facility] Comment on above: Order Comment: Speci men Type: BLOOD SPECIMEN Ordering Facility: [facility] Address: [address] [place] [address] Performed By: #### 5 7021-8 #### [facility] CLIA [id number] [address] [place] [address] [place] Immature granulocytes (Bld) [#/Vol] 10*3/uL Normal <0.10 [facility] Comment on above: Order Comment: Speci men Type: BLOOD SPECIMEN Ordering Facility: [facility] Address: [address] [place] [address] Performed By: #### 5 7021-8 #### [facility] CLIA [id number] [address] [place] [address] [place] Immature granulocytes/100 WBC (Bld) 0.2 % Normal [facility] Comment on above: Order Comment: Speci men Type: BLOOD SPECIMEN Ordering Facility: [facility] Address: [address] [place] [address] Performed By: #### 5 7021-8 #### [facility] CLIA [id number] [address] [place] [address] [place] Lymphocytes (Bld) [#/Vol] 3.74 10*3/uL Normal 1.00-4.00 [facility] Comment on above: Order Comment: Speci men Type: BLOOD SPECIMEN Ordering Facility: [facility] Address: [address] [place] [address] Performed By: #### 5 7021-8 #### [facility] CLIA [id number] [address] [place] [address] [place] Lymphocytes/100 WBC (Bld) 43.7 % Normal [facility] Comment on above: Order Comment: Speci men Type: BLOOD SPECIMEN Ordering Facility: [facility] Address: [address] [place] [address] Performed By: #### 5 7021-8 #### [facility] CLIA [id number] [address] [place] [address] [place] MCH (RBC) [Entitic mass] 27.6 pg Normal 26.0-34.0 [facility] Comment on above: Order Comment: Speci men Type: BLOOD SPECIMEN Ordering Facility: [facility] Address: [address] [place] [address] Performed By: #### 5 7021-8 #### [facility] CLIA [id number] [address] [place] [address] [place] MCHC (RBC) [Mass/Vol] 32.2 g/dL Normal 30.5-36.0 [facility] Comment on above: Order Comment: Speci men Type: BLOOD SPECIMEN Ordering Facility: [facility] Address: [address] [place] [address] Performed By: #### 5 7021-8 #### [facility] CLIA [id number] [address] [place] [address] [place] MCV (RBC) [Entitic vol] 85.7 fL Normal 80.0-100.0 [facility] Comment on above: Order Comment: Speci men Type: BLOOD SPECIMEN Ordering Facility: [facility] Address: [address] [place] [address] Performed By: #### 5 7021-8 #### [facility] CLIA [id number] [address] [place] [address] [place] Monocytes (Bld) [#/Vol] 0.64 10*3/uL Normal <0.87 [facility] Comment on above: Order Comment: Speci men Type: BLOOD SPECIMEN Ordering Facility: [facility] Address: [address] [place] [address] Performed By: #### 5 7021-8 #### [facility] CLIA [id number] [address] [place] [address] [place] Monocytes/100 WBC (Bld) 7.5 % Normal [facility] Comment on above: Order Comment: Speci men Type: BLOOD SPECIMEN Ordering Facility: [facility] Address: [address] [place] [address] Performed By: #### 5 7021-8 #### [facility] CLIA [id number] [address] [place] [address] [place] Neutrophils (Bld) [#/Vol] 3.89 10*3/uL Normal 1.45-7.50 [facility] Comment on above: Order Comment: Speci men Type: BLOOD SPECIMEN Ordering Facility: [facility] Address: [address] [place] [address] Performed By: #### 5 7021-8 #### [facility] CLIA [id number] [address] [place] [address] [place] Neutrophils/100 WBC (Bld) 45.4 % Normal [facility] Comment on above: Order Comment: Speci men Type: BLOOD SPECIMEN Ordering Facility: [facility] Address: [address] [place] [address] Performed By: #### 5 7021-8 #### [facility] CLIA [id number] [address] [place] [address] [place] Nucleated RBC (Bld) [#/Vol] 10*3/uL Normal <0.01 [facility] Comment on above: Order Comment: Speci men Type: BLOOD SPECIMEN Ordering Facility: [facility] Address: [address] [place] [address] Performed By: #### 5 7021-8 #### [facility] CLIA [id number] [address] [place] [address] [place] Nucleated RBC/100 WBC (Bld) [Ratio] 0.0 /100 WBC Normal [facility] Comment on above: Order Comment: Speci men Type: BLOOD SPECIMEN Ordering Facility: [facility] Address: [address] [place] [address] Performed By: #### 5 7021-8 #### [facility] CLIA [id number] [address] [place] [address] [place] Platelet mean volume (Bld) [Entitic vol] 10.5 fL Normal 9.0-12.7 [facility] Comment on above: Order Comment: Speci men Type: BLOOD SPECIMEN Ordering Facility: [facility] Address: [address] [place] [address] Performed By: #### 5 7021-8 #### [facility] CLIA [id number] [address] [place] [address] [place] Platelets (Bld) [#/Vol] 329 10*3/uL Normal 150-400 [facility] Comment on above: Order Comment: Speci men Type: BLOOD SPECIMEN Ordering Facility: [facility] Address: [address] [place] [address] Performed By: #### 5 7021-8 #### [facility] CLIA [id number] [address] [place] [address] [place] RBC (Bld) [#/Vol] 4.82 10*6/uL Normal 3.90-5.20 [facility] Comment on above: Order Comment: Speci men Type: BLOOD SPECIMEN Ordering Facility: [facility] Address: [address] [place] [address] Performed By: #### 5 7021-8 #### [facility] IA [id number] [address] [place] [address] [place] WBC (Bld) [#/Vol] 8.56 10*3/uL Normal 3.70-11.00 [facility] Comment on above: Order Comment: Speci men Type: BLOOD SPECIMEN Ordering Facility: [facility] Address: [address] [place] [address] Performed By: #### 5 7021-8 #### [facility] [place] [id number] [address] [place] [address] [place] CNOVon 12-16-2024 CNOV Office Visit (INTMWS ) ----- VINOD ANN ([id number]) 1975 F Date Time Provider Department 12/16/24 1:00 PM ISATU NIETO During your visit today, we recorded the following information about you: Pulse Blood pressure Weight Height 106/minute 117/75 101.8 kg 1.67 m Isatu Nieto MD 12/16/2024 2:55 PM Signed CC: Patient presents with: Establish Care: Medication refills, re established, [facility] Vinod Paris Seth is a 48 year old female who presents today for follow up. Over the past few years has been seen inconsistent with visits and following up depending on if she is actively clean from drugs and alcohol or if she currently using. She has been doing meth and alcohol , has been clean for the past 8 months. She is in assisted living, transitional house, unit. She is satisfied with the place she is living. Her health is the main reason she wants to quit. She wants to get better, do better. Patient put her self in rehab, but her self in probation etc. Today she is concerned about PAD. She has symptoms of PAD which is aches and pains all over, she is sore and tender when she wakes. Patient notes she has been clean for months of her surgery. Recurrent breast abscesses. Seeing Dr. Roblero and the breast center, but lived in [facility].Had surgery in [place] by Matthew Lazar in [place]. She is seeing Dr Roblero tomorrow. Has upcoming imaging and follow up appointment with 09/04/23. Per patient he is going to cut out the breast ducts. Currently has scabs to bilateral breast but no fever, chills, redness, or drainage. She feels tired all the time, feels groggy. Feels like she has intermittent wheezing and non-productive cough over the past year. Wheezing will feel like it is on the right side and can be worse at night. States she saw a skip miner a few years ago without any concern for pulmonary disease. Is a current smoker and thinks maybe it was mainly occurring when smoking meth. Denies any fever chills, chest pressure, chest pain, shortness of breath or current edema. Has had intermittent dependant pedal edema in the past. Bp is normal she is amlodipine, and clonidine For DVTs she is taking the Xarelto and she did well with it. Prediabetes: Controlled with diet. Denies increase in thirst, hunger or urination. HPL: Reviewed test results with patient , takes medications regularly , does not report side effects. Conscious to avoid red meats, full fat dairy and its by products. Exercising 3 to 5 times a week. She is on prazosin for night tremors REVIEW OF SYSTEMS General: no fevers, no chills, no night sweats, no recurrent infections, no change in appetite, no change in energy, and no significant changes in weight Respiratory: See HPI Cardiovascular: no chest pain, no chest pressure, no palpitations, and no swelling GI: No nausea, vomiting, or diarrhea Endocrine: no fatigue, no polyuria, no polyphagia, and no polydipsia Neurologic: No headache, weakness, dizziness, memory loss, syncope. 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 02/15 with of mother Severe episode of recurrent major depressive disorder, without psychotic features ([facility]) Kendra Padilla Suicidal ideation PAST SURGICAL HISTORY Procedure Laterality Date ABDOMINAL SURGERY HX BREAST SURGERY HX BX OF BREAST; INCISIONAL Left 08/29/2019 [facility]- Benign COLONOSCOPY 09/22/2022 COLONOSCOPY FLX DX W/COLLJ SPEC WHEN PFRMD 12/01/2019 Colonoscopy PAST SURGICAL HISTORY OF 03/2010 gall bladder removed PAST SURGICAL HISTORY OF Left wrist surgery when she was 15 years old PAST SURGICAL HISTORY OF 2014 tubal ligation PAST SURGICAL HISTORY OF 02/2022 bilateral cyst removed, [place] ALLERGIES Cephalexin, Fenofibrate, Zoloft [Sertraline Hcl], Zyprexa [Olanzapine], and Clindamycin MEDICATIONS acetaminophen (TYLENOL) 500 mg tablet Take 2 tablets by mouth every 8 hours as needed for pain. cilostazol (PLETAL) 100 mg tablet Take 1 tablet by mouth two times a day. cloNIDine HCl (CATAPRES) 0.1 mg tablet Take 1 tablet by mouth once daily. famotidine (PEPCID) 40 mg tablet Take 1 tablet by mouth daily at bedtime. ARIPiprazole (ABILIFY) 20 mg tablet Take 30 mg by mouth once daily. mirtazapine (REMERON) 45 mg tablet Take 45 mg by mouth. prazosin (MINIPRESS) 2 mg cap Take 2 mg by mouth daily at bedtime. folic acid 1 mg tablet Take 1 tablet by mouth once daily. fluticas (more content not included)... Normal [facility] Comprehensive metabolic 2000 panelon 12-16-2024 Albumin [Mass/Vol] 3.8 g/dL Low 3.9-4.9 [facility] Comment on above: Order Comment: Speci men Type: BLOOD SPECIMEN Ordering Facility: [facility] Address: [address] [place] [address] Performed By: #### 2 276-4, 55083-1, 6376-3, 18306-1 #### [facility] CLIA [id number] [address] [place] [address] [place] ALP [Catalytic activity/Vol] 132 U/L High 34-123 [facility] Comment on above: Order Comment: Speci men Type: BLOOD SPECIMEN Ordering Facility: [facility] Address: [address] [place] [address] Performed By: #### 2 276-4, 55754-3, 3016-3, 42040-2 #### [facility] CLIA [id number] [address] [place] [address] [place] ALT [Catalytic activity/Vol] 23 U/L Normal 7-38 [facility] Comment on above: Order Comment: Speci men Type: BLOOD SPECIMEN Ordering Facility: [facility] Address: [address] [place] [address] Performed By: #### 2 276-4, 66421-3, 61263, 45379-4 #### [facility] CLIA [id number] [address] [place] [address] [place] Anion gap [Moles/Vol] 11 mmol/L Normal 8-15 [facility] Comment on above: Order Comment: Speci men Type: BLOOD SPECIMEN Ordering Facility: [facility] Address: [address] [place] [address] Performed By: #### 2 276-4, 98084-6, 3016-3, 22988-8 #### [facility] CLIA [id number] [address] [place] [address] [place] AST [Catalytic activity/Vol] 23 U/L Normal 13-35 [facility] Comment on above: Order Comment: Speci men Type: BLOOD SPECIMEN Ordering Facility: [facility] Address: [address] [place] [address] Performed By: #### 2 276-4, 28079-9, 6-3, 60249-2 #### [facility] CLIA [id number] [address] [place] [address] [place] Bilirubin [Mass/Vol] mg/dL Low 0.2-1.3 [facility] Comment on above: Order Comment: Speci men Type: BLOOD SPECIMEN Ordering Facility: [facility] Address: [address] [place] [address] Performed By: #### 2 276-4, 35539-2, 3016-3, 89458-7 #### [facility] CLIA [id number] [address] [place] [address] [place] Calcium [Mass/Vol] 9.1 mg/dL Normal 8.5-10.2 [facility] Comment on above: Order Comment: Speci men Type: BLOOD SPECIMEN Ordering Facility: [facility] Address: [address] [place] [address] Performed By: #### 2 276-4, 80036-1, 3016-3, 54249-2 #### [facility] CLIA [id number] [address] [place] [address] [place] Chloride [Moles/Vol] 101 mmol/L Normal 98-107 [facility] Comment on above: Order Comment: Speci men Type: BLOOD SPECIMEN Ordering Facility: [facility] Address: [address] [address] Performed By: #### 2 276-4, 50788-2, 3016-3, 65454-4 #### [facility] CLIA [id number] [address] [place] [address] [place] CO2 [Moles/Vol] 27 mmol/L Normal 22-30 [facility] Comment on above: Order Comment: Speci men Type: BLOOD SPECIMEN Ordering Facility: [facility] Address: [address] [address] Performed By: #### 2 276-4, 68927-3, 3016-3, 89915-5 #### [facility] CLIA [id number] [address] [place] [address] [place] Creatinine [Mass/Vol] 0.95 mg/dL Normal 0.58-0.96 [facility] Comment on above: Order Comment: Speci men Type: BLOOD SPECIMEN Ordering Facility: [facility] Address: [address] [place] [address] Performed By: #### 2 276-4, 07848-5, 6-3, 93452-5 #### [facility] [place] [id number] [address] [place] [address] [place] Creatinine and Glomerular filtration rate.predicted panel (S/P/Bld) 73 mL/min/1.73m??? Normal >=60 [facility] Comment on above: Order Comment: Speci men Type: BLOOD SPECIMEN Ordering Facility: [facility] Address: [address] [address] Result Comment: Belkys mated Glomerular Filtration Rate (eGFR) is calculated using the 2020 CKD-EPI creatinine equation. This equation utilizes serum creatinine, sex, and age as parameters. The creatinine assay has traceable calibration to isotope dilution-mass spectrometry. Refer to KDIGO guidelines for clinical interpretation. In patients with unstable renal function, e.g. those with acute kidney injury, the eGFR may not accurately reflect actual GFR. Performed By: #### 2 276-4, 53244-6, 3016-3, 24261-5 #### [facility] CLIA [id number] [address] [place] [address] [place] Glucose [Mass/Vol] 107 mg/dL High 74-99 [facility] Comment on above: Order Comment: Speci men Type: BLOOD SPECIMEN Ordering Facility: [facility] Address: [address] [address] Result Comment: The [place] Diabetes Association (ADA) provides guidance for cutoff values for fasting glucose and random glucose. The ADA defines fasting as no caloric intake for at least 8 hours. Fasting plasma glucose results between 100 to 125 mg/dL indicate increased risk for diabetes (prediabetes). Fasting plasma glucose results greater than or equal to 126 mg/dL meet the criteria for diagnosis of diabetes. In the absence of unequivocal hyperglycemia, results should be confirmed by repeat testing. In a patient with classic symptoms of hyperglycemia or hyperglycemic crisis, random plasma glucose results greater than or equal to 200 mg/dL meet the criteria for diagnosis of diabetes. Reference: Standards of Medical Care in Diabetes 2016, [place] Diabetes Association. Diabetes Care. 2016.39(Suppl 1). Performed By: #### 2 276-4, 54829-5, 6-3, 93441-6 #### [email or web address] CLIA [id number] [address] [place] [address] [place] Potassium [Moles/Vol] 4.2 mmol/L Normal 3.7-5.1 [facility] Comment on above: Order Comment: Paul chinchilla Type: BLOOD SPECIMEN Ordering Facility: [facility] Address: [address] [place], [place] [address] Performed By: #### 2 276-4, 00555-9, 3015-3, 47878-5 #### [facility] CLIA [id number] [address] [place] [address] [place] Protein [Mass/Vol] 6.6 g/dL Normal 6.3-8.0 [facility] Comment on above: Order Comment: Paul chinchilla Type: BLOOD SPECIMEN Ordering Facility: [facility] Address: [address] [place] [address] Performed By: #### 2 276-4, 54982-3, 3016-3, 20526-4 #### [facility] CLIA [id number] [address] [place] [address] [place] Sodium [Moles/Vol] 139 mmol/L Normal 136-144 [facility] Comment on above: Order Comment: Paul chinchilla Type: BLOOD SPECIMEN Ordering Facility: [facility] Address: [address] [place] [address] Performed By: #### 2 276-4, 24019-2, 3016-3, 62311-8 #### [facility] CLIA [id number] [address] [place] [address] [place] Urea nitrogen [Mass/Vol] 9 mg/dL Normal 7-21 [facility] Comment on above: Order Comment: Paul chinchilla Type: BLOOD SPECIMEN Ordering Facility: [facility] Address: [address] [place] [address] Performed By: #### 2 276-4, 97069-1, 3016-3, 53691-6 #### [facility] IA [id number] [address] [place] [address] [place] Ferritin SerPl-mCncon 2024 Ferritin [Mass/Vol] 25.5 ng/mL Normal 14.7-205.1 [facility] Comment on above: Order Comment: Paul chinchilla Type: BLOOD SPECIMEN Ordering Facility: [facility] Address: [address] [place] [address] Performed By: #### 2 276-4, 43443-7, 3016-3, 47941-8 #### [facility] CLIA [id number] [address] [place] [address] [place] HbA1c (Bld)on 12-16-2024 Average glucose Estimated from glycated hemoglobin (Bld) [Mass/Vol] 128 mg/dL Normal [facility] Comment on above: Order Comment: Paul chinchilla Type: BLOOD SPECIMEN Ordering Facility: [facility] Address: [address] [place] [address] Result Comment: eAG: (Estimated average glucose) is a calculated value from HgbA1c and is outside medical sales representative of the average blood glucose level in the last 2-3 month period. Performed By: #### 5 5454-3 #### [facility] CLIA [id number] [address] [place] [address] [place] HbA1c (Bld) [Mass fraction] 6.1 % High 4.3-5.6 [facility] Comment on above: Order Comment: Speci men Type: BLOOD SPECIMEN Ordering Facility: [facility] Address: [address] [place] [address] Result Comment: [place] Diabetes Association guidelines indicate that patients with HgbA1c in the range 5.7-6.4% are at increased risk for development of diabetes, and intervention by lifestyle modification may be beneficial. HgbA1c greater or equal to 6.5% is considered diagnostic of diabetes. Performed By: #### 5 5454-3 #### [facility] CLIA [id number] [address] [place] [address] [place] Iron and Iron binding capaci ty panelon 12-16-2024 Iron [Mass/Vol] 35 ug/dL Low 41-186 [facility] Comment on above: Order Comment: Speci men Type: BLOOD SPECIMEN Ordering Facility: [facility] Address: [address] [place] [address] Performed By: #### 2 276-4, 49217-5, 3016-3, 67564-8 #### [facility] CLIA [id number] [address] [place] [address] [place] Iron binding capacity [Mass/Vol] 337 ug/dL Normal 232-386 [facility] Comment on above: Order Comment: Speci men Type: BLOOD SPECIMEN Ordering Facility: [facility] Address: [address] [place] [address] Performed By: #### 2 276-4, 32564-8, 3016-3, 17109-9 #### [facility] CLIA [id number] [address] [place] [address] [place] Iron/TIBC [Molar ratio] 10.4 % Low 15.0-57.0 [facility] Comment on above: Order Comment: Speci men Type: BLOOD SPECIMEN Ordering Facility: [facility] Address: [address] [facility] [place] [address] Performed By: #### 2 276-4, 67226-3, 3016-3, 47043-2 #### [facility] CLIA [id number] [address] [place] [address] [place] TSH SerPl-aCncon 12-16-2024 TSH Qn 2.630 m[IU]/L Normal 0.270-4.200 [facility] Comment on above: Order Comment: Paul chinchilla Type: BLOOD SPECIMEN Ordering Facility: [facility] Address: [address] [place] [address] Result Comment: If t he patient is , TSH reference range varies by gestational period: First Trimester (weeks 9-12): 0.180-2.990 mIU/L Second Trimester: 0.110-3.980 mIU/L Third Trimester: 0.480-4.710 mIU/L Hector Larson et al. A Practical Approach for the Verifications and Determination of Site- and Trimester-Specific Reference Intervals for Thyroid Function tests in . Thyroid, 2019:29:3:412-420. Jesse E, et al. 2017 Guidelines of the [place] Thyroid Association for the Diagnosis and Management of Thyroid Disease during and the . Thyroid, 2017:27:3:315-389. Performed By: #### 2 276-4, 80841-3, 3016-3, 23033-8 #### [facility] IA [id number] [address] [place] [address] [place] Vit B12 SerPl-mCncon 025 Cobalamin (Vitamin B12) [Mass/Vol] 419 pg/mL Normal 232-1245 [facility] Comment on above: Order Comment: Paul chinchilla Type: BLOOD SPECIMENOrdering Facility: [facility] Address: [address] [place] [address] Performed By: #### 2 132-9 ####[facility] [id number] [facility] [id number] [place] [address] [place] CNOVon 12-10-2024 CNOV Office Visit (GENSWS ) ----- VINOD ANN Raina ([id number]) 1975 F IPA Date Time Provider Department 12/10/24 2:00 PM FRANCO ROBLERO GENMECCAS During your visit today, we recorded the following information about you: Pulse Respiration Blood pressure Weight 117/minute 16/minute 108/68 101.2 kg Franco Roblero MD 12/12/2024 6:03 AM Signed FOLLOW UP VISIT NAME: Vinod Paris Ann [facility] NO.: [id number] DATE OF SERVICE: December 11, 2024 : 1975 REFERRING PHYSICIAN: Isatu Nieto MD Vinod is a patient I am following for history of left breast abscesses. I had last seen Vinod on April 04, 2024. At that time I noted: The patient is a 49 year old female with a complaint of a palpable breast mass. The patient notes a mass in the retroaerolar portion to slightly medial area of her left breast. The patient has noticed this mass for a long time. The patient had a mammogram and ultrasound obtained the the [facility] on February 21, 2024 which demonstrated: IMPRESSION: Finding 1 Masses in both breasts are benign. Finding 2 Irregular mass in the left breast at 9 o'clock, 2 cm from the nipple is suspicious. It extends into the nipple. An ultrasound guided biopsy is recommended. Finding 3 Abnormal lymph node in the left axilla is suspicious. An ultrasound guided biopsy is recommended. I discussed the findings and results with the patient over the phone at the time of the interpretation. The Breast Center Navigator will consult with the patient regarding the recommendations including Breast Clinic referral recommendation. An Epic message with the recommendations of Breast Surgery Clinic referral and breast biopsy will be submitted by the Breast Center Navigator to Makayla Morley on 02/21/2024 at the time of interpretation. The Breast Center Navigator will schedule the appropriate appointments for the patient. Finding 4 Area of skin thickening in the right breast at 3 o'clock, 2 cm from the nipple is benign. BI-RADS Category 4: Suspicious I had seen this patient on August 16, 2023. At that time I noted: The patient is a 48 year old female with a complaint of nonhealing wound and discharge from her left nipple. The patient has a longstanding history of breast abscesses nipple discharge and infections. She has had multiple incision and drainage procedures of the left periareolar area. Most of these were performed at [facility] in [facility]. The patient is also seen Dr. Watson in the past. He advised against additional drainages when he saw the patient. The patient presents to multiple different ERs with these complaints. She states that after the most recent incision and drainage she has a chronic site which generally does not heal just along the medial aspect of her left nipple. She presented to [facility] emergency department ER with these complaints. Ultrasound of the breast was obtained which demonstrated no abscesses and no specific abnormalities. She followed up with Dr. Nieto. She noted some blood and pus draining from the nipple at that time. This was sent for culture returned as actinomyces. The patient was given doxycycline. She denies fever or chills. The patient is somewhat complicated history. She smokes 2 packs cigarettes a day. She snorts and smokes crystal methamphetamine. She had abstained from methamphetamine for the last 2 weeks when I had initially evaluated her in February. She has had issues with follow up and missing appointment. She notes chronic scabs with occasional drainage from sites on both medial nipple aerolar sites. SHe has not had breast imagine for some time. I noted at that time on exam: Left breast-no fluctuance or significant erythema. At the 9 o'clock position relative to the nipple areolar complex there is a scarred area with a small scab consistent with her previous multiple incisions. No drainage currently. Right breast - 3 oclock scab, also no fluctuance or drainage. Intraoffice ultrasound demonstrated no obvious abscess along that tract. There did appear to be multiple postsurgical changes/scarring in the area There appears to be a dilated duct under the right scab/drainage site. There is some retraction at the left site with no ultrasound abnormalities. I recommended mammogram and ultrasound which was ordered. The patient failed to have those studies and I understand moved to [place] where she had the above imaging. She has a history of PVD. She is on Xeralto and was planning to have a lower extremity non invasive study later this afternoon. The patient was followed by Dr. Raymundo Pisano in [facility]. The patient moved to [place] and was receiving close surgical care from him at that time. She had undergone a smaller excision of the central chronic abscess on September 26, 2024. There was poorly healing and (more content not included)... Normal [facility] CNOVon 12-03-2024 CNOV Office Visit (GENSWS ) ----- VINOD ANN ([id number]) 1975 F Date Time Provider Department 12/03/24 1:00 PM BLANCA LANDIS During your visit today, we recorded the following information about you: Temperature Pulse Blood pressure 97.5 degrees 127/minute 124/84 Blanca Landis APRN.HAND SCRAPER 12/03/2024 2:09 PM Signed HISTORY AND PHYSICAL Vinod Ann 1975 REFERRING PHYSICIAN: No ref. provider found CHIEF COMPLAINT: No chief complaint on file. HPI: The patient is a 49 year old female with a complaint of healing breast abscess. Vinod is a patient of Dr. Roblero that I am seeing today to check her left breast wound. She has had an extensive hx of left breast abscess including multiple IANDDs at multiple Eds AND use of a wound VAC for healing after surgical intervention in [place] where she use to reside. I saw her last week with Dr. Roblero and the would is healing nicely. He instructed her to continuing with the wet to dry dressing and that he would expect this week she should be able to just place a dry dressing on the area. Vinod notes no concerns. She is using tylenol 1000mg TID for pain relief. She is changing the dressing BID AND notes no concerns of infection, increased drainage, swelling, redness or pain. Patient's past medical history is significant for 2 ppd smoker, drug abuse, DVT AND obesity. 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 02/15 with of mother Severe episode of recurrent major depressive disorder, without psychotic features ([facility]) Kendra Padilla Suicidal ideation PAST SURGICAL HISTORY Procedure Laterality Date ABDOMINAL SURGERY HX BREAST SURGERY HX BX OF BREAST; INCISIONAL Left 08/29/2019 [facility]- Benign COLONOSCOPY 09/22/2022 COLONOSCOPY FLX DX W/COLLJ SPEC WHEN PFRMD 12/01/2019 Colonoscopy PAST SURGICAL HISTORY OF 03/2010 gall bladder removed PAST SURGICAL HISTORY OF Left wrist surgery when she was 15 years old PAST SURGICAL HISTORY OF 2013 tubal ligation PAST SURGICAL HISTORY OF 02/2022 bilateral cyst removed, [place] Current Outpatient Medications Medication Sig cilostazol (PLETAL) 100 mg tablet Take 1 tablet by mouth two times a day. cloNIDine HCl (CATAPRES) 0.1 mg tablet Take 1 tablet by mouth once daily. famotidine (PEPCID) 40 mg tablet Take 1 tablet by mouth daily at bedtime. ARIPiprazole (ABILIFY) 20 mg tablet Take 30 mg by mouth once daily. mirtazapine (REMERON) 45 mg tablet Take 45 mg by mouth. prazosin (MINIPRESS) 2 mg cap Take 2 mg by mouth daily at bedtime. folic acid 1 mg tablet Take 1 tablet by mouth once daily. fluticasone (FLONASE) 50 mcg/actuation nasal spray Use 1 [place] in the nose. albuterol HFA (PROVENTIL HFA, VENTOLIN HFA) 90 mcg/actuation inhaler Inhale 2 Puffs as instructed every 6 hours as needed. rivaroxaban (XARELTO) 20 mg tablet Take 20 mg by mouth. rosuvastatin (CRESTOR) 10 mg tablet Take 10 mg by mouth once daily. aspirin 81 mg cap Take 81 mg by mouth once daily. amLODIPine (NORVASC) 2.5 mg tablet Take 1 tablet by mouth once daily. oxybutynin ER (DITROPAN XL) 10 mg 24 hr tablet Take 1 tablet by mouth once daily. ergocalciferol 50,000 unit capsule (VITAMIN D2, DRISDOL) Take 1 capsule by mouth one time a week. omeprazole (PRILOSEC) 40 mg capsule Take 1 capsule by mouth once daily. acetaminophen (TYLENOL) 500 mg tablet Take 2 tablets by mouth every 8 hours as needed for pain. No current facility-administered medications for this visit. ALLERGIES: Cephalexin, Fenofibrate, Zoloft [Sertraline Hcl], Zyprexa [Olanzapine], and Clindamycin PERSONAL HISTORY: Social History Tobacco Use Smoking status: Every Day Current packs/day: 2.00 Average packs/day: 2.0 packs/day for 29.0 years (58.0 ttl pk-yrs) Types: Cigarettes Smokeless tobacco: Never Vaping Use Vaping status: Former Substances: Nicotine Substance Use Topics Alcohol use: Yes Comment: quit , small relapse in 02/15 with of mother. FAMILY HISTORY: FAMILY HISTORY Problem Relation Age of Onset Lung Cancer Mother at 63 Osteoporosis Mother Alcohol/Drug Mother alcohol Hypertension Father Alcohol/Drug Father alcohol Aneurysm Father abdominal Prostate Cancer Father Alcohol/Drug Sister drugs other (Aids) Sister drug user Aneurysm Sister head Breast Cancer Paternal Grandmother late 50's or 60's Alcohol/Drug Niece Ovarian cancer Niece diagnosed young PHYSICAL EXAMINATIO (more content not included)... Normal [place] [facility]2024 [facility] Telephone ([email or web address]) ----- VINOD ANN ([id number]) 1975 F Date Time Provider Department 11/27/24 FRANCO ROBLERO During your visit today, we recorded the following information about you: Lamar Hummel LPN 11/27/2024 3:49 PM Signed Received medical records from [employer] via [employer]. Scanned to [facility] to Scanned Docs. Lamar Hummel LPN Allergies As of Date: 11/27/2024 Noted Allergy Reaction CEPHALEXIN 02/26/2018 4 - Hives 6 - Diarrhea FENOFIBRATE 08/31/2019 14 - Other: See Comments Comments: Hives with GI upset (emesis) ZOLOFT (SERTRALINE HCL) 06/23/2013 4 - Hives 6 - Diarrhea ZYPREXA (OLANZAPINE) 04/04/2024 1 - Mental Status Change 4 - Hives CLINDAMYCIN 09/29/2019 4 - Hives Comments: States has take since with no issue 08/06/20. Elba Broussard MA Date Reviewed: 11/26/2024 Reviewed by: Lashae Choi MA - Fully Assessed Reason for Visit: Received Outside Medical Records [[id number]] Prescriptions as of 11/27/2024 - cilostazol (PLETAL) 100 mg tablet Take 1 tablet by mouth two times a day. - cloNIDine HCl (CATAPRES) 0.1 mg tablet Take 1 tablet by mouth once daily. - famotidine (PEPCID) 40 mg tablet Take 1 tablet by mouth daily at bedtime. - ARIPiprazole (ABILIFY) 20 mg tablet Take 30 mg by mouth once daily. - mirtazapine (REMERON) 45 mg tablet Take 45 mg by mouth. - prazosin (MINIPRESS) 2 mg cap Take 2 mg by mouth daily at bedtime. - ketoconazole (NIZORAL) 2 % cream Apply 1 Application to affected area. - folic acid 1 mg tablet Take 1 tablet by mouth once daily. - fluticasone (FLONASE) 50 mcg/actuation nasal spray Use 1 [place] in the nose. - albuterol HFA (PROVENTIL HFA, VENTOLIN HFA) 90 mcg/actuation inhaler Inhale 2 Puffs as instructed every 6 hours as needed. - hydroCHLOROthiazide 25 mg tablet Take 25 mg by mouth once daily. - rivaroxaban (XARELTO) 20 mg tablet Take 20 mg by mouth. - rosuvastatin (CRESTOR) 10 mg tablet Take 10 mg by mouth once daily. - aspirin 81 mg cap Take 81 mg by mouth once daily. - melatonin 5 mg tablet Take 1 tablet by mouth as needed for insomnia. - amLODIPine (NORVASC) 2.5 mg tablet Take 1 tablet by mouth once daily. - acetaminophen (TYLENOL) 325 mg tablet Take 650 mg by mouth once daily. - oxybutynin ER (DITROPAN XL) 10 mg 24 hr tablet Take 1 tablet by mouth once daily. - ergocalciferol 50,000 unit capsule (VITAMIN D2, DRISDOL) Take 1 capsule by mouth one time a week. - omeprazole (PRILOSEC) 40 mg capsule Take 1 capsule by mouth once daily. - multivitamin tablet Take 1 tablet by mouth once daily. Problem List As Of Date 11/27/2024 Noted Resolved GERD (gastroesophageal reflux disease) [K21.9] 06/23/2013 Weight gain [R63.5] 06/23/2013 Other and unspecified hyperlipidemia [E78.5] 11/20/2014 Obesity (BMI 30-39.9) [E66.9] 11/20/2014 Anxiety state, unspecified [F41.1] 11/20/2014 Tobacco use disorder [F17.200] 11/18/2019 Breast abscess [N61.1] 08/06/2020 History of breast abscess [Z87.2] 12/17/2020 Family history of breast cancer [Z80.3] 12/17/2020 Breast mass, left [N63.20] 12/06/2021 Nipple discharge [N64.52] 12/06/2021 Alcohol abuse, in remission [F10.11] 03/24/2022 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HCC) [F19.11] 03/24/2022 Encounter Status:Closed by LAMAR HUMMEL on 11/27/24 [facility] 11-26-2024 CNOV Office Visit (GENSWS ) ----- VINOD ANN ([id number]) 1975 F Date Time Provider Department 11/26/24 12:50 PM FRANCO ROBLERO During your visit today, we recorded the following information about you: Pulse Blood pressure Weight 100/minute 129/80 106.6 kg Franco Roblero MD 11/29/2024 8:04 AM Signed FOLLOW UP VISIT NAME: Vinod Paris [facility] NO.: [id number] DATE OF SERVICE: 11/26/2024 : 1975 REFERRING PHYSICIAN: Isatu Nieto MD Vinod is a patient I am following for history of left breast abscesses. I had last seen Vinod on April 04, 2024. At that time I noted: The patient is a 49 year old female with a complaint of a palpable breast mass. The patient notes a mass in the retroaerolar portion to slightly medial area of her left breast. The patient has noticed this mass for a long time. The patient had a mammogram and ultrasound obtained the [facility] on February 21, 2024 which demonstrated: IMPRESSION: Finding 1 Masses in both breasts are benign. Finding 2 Irregular mass in the left breast at 9 o'clock, 2 cm from the nipple is suspicious. It extends into the nipple. An ultrasound guided biopsy is recommended. Finding 3 Abnormal lymph node in the left axilla is suspicious. An ultrasound guided biopsy is recommended. I discussed the findings and results with the patient over the phone at the time of the interpretation. The Breast Center Navigator will consult with the patient regarding the recommendations including Breast Clinic referral recommendation. An Epic message with the recommendations of Breast Surgery Clinic referral and breast biopsy will be submitted by the Breast Center Navigator to Makayla Morley on 02/21/2024 at the time of interpretation. The Breast Center Navigator will schedule the appropriate appointments for the patient. Finding 4 Area of skin thickening in the right breast at 3 o'clock, 2 cm from the nipple is benign. BI-RADS Category 4: Suspicious I had seen this patient on August 16, 2023. At that time I noted: The patient is a 48 year old female with a complaint of nonhealing wound and discharge from her left nipple. The patient has a longstanding history of breast abscesses nipple discharge and infections. She has had multiple incision and drainage procedures of the left periareolar area. Most of these were performed at [facility] in [facility]. The patient is also seen Dr. Watson in the past. He advised against additional drainages when he saw the patient. The patient presents to multiple different ERs with these complaints. She states that after the most recent incision and drainage she has a chronic site which generally does not heal just along the medial aspect of her left nipple. She presented to [facility] emergency department ER with these complaints. Ultrasound of the breast was obtained which demonstrated no abscesses and no specific abnormalities. She followed up with Dr. Nieto. She noted some blood and pus draining from the nipple at that time. This was sent for culture returned as actinomyces. The patient was given doxycycline. She denies fever or chills. The patient is somewhat complicated history. She smokes 2 packs cigarettes a day. She snorts and smokes crystal methamphetamine. She had abstained from methamphetamine for the last 2 weeks when I had initially evaluated her in February. She has had issues with follow up and missing appointment. She notes chronic scabs with occasional drainage from sites on both medial nipple aerolar sites. SHe has not had breast imagine for some time. I noted at that time on exam: Left breast-no fluctuance or significant erythema. At the 9 o'clock position relative to the nipple areolar complex there is a scarred area with a small scab consistent with her previous multiple incisions. No drainage currently. Right breast - 3 oclock scab, also no fluctuance or drainage. Intraoffice ultrasound demonstrated no obvious abscess along that tract. There did appear to be multiple postsurgical changes/scarring in the area There appears to be a dilated duct under the right scab/drainage site. There is some retraction at the left site with no ultrasound abnormalities. I recommended mammogram and ultrasound which was ordered. The patient failed to have those studies and I understand moved to [place] where she had the above imaging. She has a history of PVD. She is on Xeralto and was planning to have a lower extremity non invasive study later this afternoon. The patient was followed by Dr. Raymundo Pisano in [facility]. The patient moved to [place] and was receiving close surgical care from him at that time. She had undergone a smaller excision of the central chronic abscess on September 26, 2024. There was poorly healing and then underwent a wider resecti (more content not included)... Normal [facility] Yoni 11-25-2024 CNPN Telephone (INTMWS) ----- ANNVINOD Raina ([id number]) 1975 F Date Time Provider Department 11/25/24 ISATU NIETO During your visit today, we recorded the following information about you: Earline Hinkle 11/25/2024 8:53 AM Signed Patient calling in about re-establishing care with Sravanthi's team. She moved back to the area, and she was last seen in 2022 by the team, however Sravanthi is not PCP in the chart. Please review and advise. Earline Hinkle November 25, 2024 8:53 AM Tina Bloom MA 11/25/2024 9:47 AM Signed TE on 02/28/24 states She was seen within the last year so ok to be seen. Please switch PCP to dr. Nieto Thank you Milly Feliciano, GENERATOR SWITCHBOARD OPERATOR.HAND SCRAPER Ok to schedule as physical/annual SARITHA Mobley Ida 11/26/2024 1:04 PM Signed Scheduled Allergies As of Date: 11/25/2024 Noted Allergy Reaction CEPHALEXIN 02/26/2018 4 - Hives 6 - Diarrhea FENOFIBRATE 08/31/2019 14 - Other: See Comments Comments: Hives with GI upset (emesis) ZOLOFT (SERTRALINE HCL) 06/23/2013 4 - Hives 6 - Diarrhea ZYPREXA (OLANZAPINE) 04/04/2024 1 - Mental Status Change 4 - Hives CLINDAMYCIN 09/29/2019 4 - Hives Comments: States has take since with no issue 08/06/20. Elba Broussard MA Date Reviewed: 08/13/2024 Reviewed by: Rona Abernathy MA - Fully Assessed Reason for Visit: Patient Question [7127] Prescriptions as of 11/26/2024 - cilostazol (PLETAL) 100 mg tablet Take 1 tablet by mouth two times a day. - cloNIDine HCl (CATAPRES) 0.1 mg tablet Take 1 tablet by mouth once daily. - famotidine (PEPCID) 40 mg tablet Take 1 tablet by mouth daily at bedtime. - ARIPiprazole (ABILIFY) 20 mg tablet Take 30 mg by mouth once daily. - mirtazapine (REMERON) 45 mg tablet Take 45 mg by mouth. - prazosin (MINIPRESS) 2 mg cap Take 2 mg by mouth daily at bedtime. - ketoconazole (NIZORAL) 2 % cream Apply 1 Application to affected area. - folic acid 1 mg tablet Take 1 tablet by mouth once daily. - fluticasone (FLONASE) 50 mcg/actuation nasal spray Use 1 [place] in the nose. - albuterol HFA (PROVENTIL HFA, VENTOLIN HFA) 90 mcg/actuation inhaler Inhale 2 Puffs as instructed every 6 hours as needed. - hydroCHLOROthiazide 25 mg tablet Take 25 mg by mouth once daily. - rivaroxaban (XARELTO) 20 mg tablet Take 20 mg by mouth. - rosuvastatin (CRESTOR) 10 mg tablet Take 10 mg by mouth once daily. - aspirin 81 mg cap Take 81 mg by mouth once daily. - melatonin 5 mg tablet Take 1 tablet by mouth as needed for insomnia. - amLODIPine (NORVASC) 2.5 mg tablet Take 1 tablet by mouth once daily. - acetaminophen (TYLENOL) 325 mg tablet Take 650 mg by mouth once daily. - oxybutynin ER (DITROPAN XL) 10 mg 24 hr tablet Take 1 tablet by mouth once daily. - ergocalciferol 50,000 unit capsule (VITAMIN D2, DRISDOL) Take 1 capsule by mouth one time a week. - omeprazole (PRILOSEC) 40 mg capsule Take 1 capsule by mouth once daily. - multivitamin tablet Take 1 tablet by mouth once daily. Problem List As Of Date 11/25/2024 Noted Resolved GERD (gastroesophageal reflux disease) [K21.9] 06/23/2013 Weight gain [R63.5] 06/23/2013 Other and unspecified hyperlipidemia [E78.5] 11/20/2014 Obesity (BMI 30-39.9) [E66.9] 11/20/2014 Anxiety state, unspecified [F41.1] 11/20/2014 Tobacco use disorder [F17.200] 11/18/2019 Breast abscess [N61.1] 08/06/2020 History of breast abscess [Z87.2] 12/17/2020 Family history of breast cancer [Z80.3] 12/17/2020 Breast mass, left [N63.20] 12/06/2021 Nipple discharge [N64.52] 12/06/2021 Alcohol abuse, in remission [F10.11] 03/24/2022 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HCC) [F19.11] 03/24/2022 Encounter Status:Closed by YOSELIN PRINCE on 11/26/24 [facility] CNPHeide 11-21-2024 CNPN Telephone (OTOLMN) ----- VINOD ANN ([id number]) 1975 F Date Time Provider Department 11/21/24 MATTHEW HOWE OTOLSD During your visit today, we recorded the following information about you: Matthew Duong 11/21/2024 10:21 AM Signed spoke to pt regarding apt with a7, r/s pt aware of date/time Allergies As of Date: 11/21/2024 Noted Allergy Reaction CEPHALEXIN 02/26/2018 4 - Hives 6 - Diarrhea FENOFIBRATE 08/31/2019 14 - Other: See Comments Comments: Hives with GI upset (emesis) ZOLOFT (SERTRALINE HCL) 06/23/2013 4 - Hives 6 - Diarrhea ZYPREXA (OLANZAPINE) 04/04/2024 1 - Mental Status Change 4 - Hives CLINDAMYCIN 09/29/2019 4 - Hives Comments: States has take since with no issue 08/06/20. Elba Broussard MA Date Reviewed: 08/13/2024 Reviewed by: Rona Abernathy MA - Fully Assessed Prescriptions as of 11/21/2024 - famotidine (PEPCID) 40 mg tablet Take 1 tablet by mouth daily at bedtime. - ARIPiprazole (ABILIFY) 20 mg tablet Take 30 mg by mouth once daily. - mirtazapine (REMERON) 45 mg tablet Take 45 mg by mouth. - prazosin (MINIPRESS) 2 mg cap Take 2 mg by mouth daily at bedtime. - ketoconazole (NIZORAL) 2 % cream Apply 1 Application to affected area. - folic acid 1 mg tablet Take 1 tablet by mouth once daily. - fluticasone (FLONASE) 50 mcg/actuation nasal spray Use 1 [place] in the nose. - albuterol HFA (PROVENTIL HFA, VENTOLIN HFA) 90 mcg/actuation inhaler Inhale 2 Puffs as instructed every 6 hours as needed. - hydroCHLOROthiazide 25 mg tablet Take 25 mg by mouth once daily. - rivaroxaban (XARELTO) 20 mg tablet Take 20 mg by mouth. - rosuvastatin (CRESTOR) 10 mg tablet Take 10 mg by mouth once daily. - aspirin 81 mg cap Take 81 mg by mouth once daily. - melatonin 5 mg tablet Take 1 tablet by mouth as needed for insomnia. - amLODIPine (NORVASC) 2.5 mg tablet Take 1 tablet by mouth once daily. - acetaminophen (TYLENOL) 325 mg tablet Take 650 mg by mouth once daily. - oxybutynin ER (DITROPAN XL) 10 mg 24 hr tablet Take 1 tablet by mouth once daily. - ergocalciferol 50,000 unit capsule (VITAMIN D2, DRISDOL) Take 1 capsule by mouth one time a week. - omeprazole (PRILOSEC) 40 mg capsule Take 1 capsule by mouth once daily. - multivitamin tablet Take 1 tablet by mouth once daily. Problem List As Of Date 11/21/2024 Noted Resolved GERD (gastroesophageal reflux disease) [K21.9] 06/23/2013 Weight gain [R63.5] 06/23/2013 Other and unspecified hyperlipidemia [E78.5] 11/20/2014 Obesity (BMI 30-39.9) [E66.9] 11/20/2014 Anxiety state, unspecified [F41.1] 11/20/2014 Tobacco use disorder [F17.200] 11/18/2019 Breast abscess [N61.1] 08/06/2020 History of breast abscess [Z87.2] 12/17/2020 Family history of breast cancer [Z80.3] 12/17/2020 Breast mass, left [N63.20] 12/06/2021 Nipple discharge [N64.52] 12/06/2021 Alcohol abuse, in remission [F10.11] 03/24/2022 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HCC) [F19.11] 03/24/2022 Encounter Status:Closed by MATTHEW DUONG on 11/21/24 Normal [facility] CBC WITH AUTO DIFFERENTIALon 11-09-2024 BASOPHILS ABSOLUTE COUNT 0.05 K/mcL Normal 0.00-0.30 [facility] Comment on above: Performed By: #### L [id number] #### [facility] [address] [place] [address] Jonathan Carter M.D. [id number] Basophils/100 WBC (Bld) 0.7 % [facility] Comment on above: Performed By: #### L [id number] #### [facility] [address] [place] [address] Jonathan Carter M.D. [id number] Eosinophils (Bld) [#/Vol] 0.11 10*3/uL Normal 0.00-0.50 [facility] Comment on above: Performed By: #### L [id number] #### [facility] [address] [place] [address] Jonathan Carter M.D. [id number] Eosinophils/100 WBC (Bld) 1.6 % Normal [facility] Comment on above: Performed By: #### L [id number] #### [facility] [address] [place], [place] [address] Jonathan Carter M.D. [id number] Erythrocyte distribution width (RBC) [Ratio] 15.0 % High 11.6-14.8 [facility] Comment on above: Performed By: #### L [id number] #### [facility] [address] [place] [address] Jonathan Carter M.D. [id number] Hematocrit (Bld) [Volume fraction] 42.4 % Normal 36.0-46.0 [facility] Comment on above: Performed By: #### L [id number] #### [facility] [address] [place], [place] [address] Jonathan Carter M.D. [id number] Hemoglobin (Bld) [Mass/Vol] 13.8 g/dL Normal 12.0-16.0 [facility] Comment on above: Performed By: #### L [id number] #### [facility] [place] [address] Jonathan Carter M.D. [id number] IG ABSOLUTE 0.04 K/mcL Normal 0.00-0.30 [facility] Comment on above: Performed By: #### L [id number] #### [facility] [place] [address] Jonathan Carter M.D. [id number] IG PERCENT 0.60 % [facility] Comment on above: Result Comment: The IG parameter is the percentage of metamyelocytes, myelocytes and promyelocytes. An immature granulocyte count (IG) of 1% or more suggests the possibility of infection, an IG count of 3% is very likely related to an infection. Performed By: #### L [id number] #### [facility] [address] [place] [address] Jonathan Carter M.D. [id number] Lymphocytes (Bld) [#/Vol] 2.45 10*3/uL Normal 0.90-4.00 [facility] Comment on above: Performed By: #### L [id number] #### [facility] [address] [place], [place] [address] Jonathan Carter M.D. [id number] Lymphocytes/100 WBC (Bld) 35.3 % Normal [facility] Comment on above: Performed By: #### L [id number] #### [facility] [address] [place] [address] Jonathan Carter M.D. [id number] MCH (RBC) [Entitic mass] 27.8 pg Normal 26.0-34.0 [facility] Comment on above: Performed By: #### L [id number] #### [facility] [address] [place] [address] Jonathan Carter M.D. [id number] MCV (RBC) [Entitic vol] 85.5 fL Normal 80.0-100.0 [facility] Comment on above: Performed By: #### L [id number] #### [facility] [address] [place] [address] Jonathan Carter M.D. [id number] MEAN CORPUSCULAR HEMOGLOBIN CONC 32.5 g/dL Normal 31.0-37.0 [facility] Comment on above: Performed By: #### L [id number] #### [facility] [address] [place] [address] Jonathan Carter M.D. [id number] Monocytes (Bld) [#/Vol] 0.47 10*3/uL Normal 0.30-0.90 [facility] Comment on above: Performed By: #### L [id number] #### [facility] [address] [place] [address] Jonathan Carter M.D. [id number] Monocytes/100 WBC (Bld) 6.8 % Normal [facility] Comment on above: Performed By: #### L [id number] #### [facility] [address] [place], [place] [address] Jonathan Carter M.D. [id number] NEUTROPHILS ABSOLUTE COUNT 3.83 K/mcL Normal 1.70-7.00 [facility] Comment on above: Performed By: #### L [id number] #### [facility] [address] [place], [place] [address] Jonathan Carter M.D. [id number] Neutrophils/100 WBC (Bld) 55.0 % Normal [facility] Comment on above: Performed By: #### L [id number] #### [facility] [address] [place] [address] Jonathan Carter M.D. [id number] Platelet mean volume (Bld) [Entitic vol] 9.6 fL Normal 9.4-12.4 [facility] Comment on above: Performed By: #### L [id number] #### [facility] [address] [place] [address] Jonathan Carter M.D. [id number] Platelets (Bld) [#/Vol] 281 10*3/uL Normal 150-400 [facility] Comment on above: Performed By: #### L [id number] #### [facility] [address] [place], [place] [address] Jonathan Carter M.D. [id number] RBC (Bld) [#/Vol] 4.96 10*6/uL Normal 4.00-5.20 [facility] Comment on above: Performed By: #### L [id number] #### [facility] [address] [place] [address] Jonathan Carter M.D. [id number] WBC (Bld) [#/Vol] 6.95 10*3/uL Normal 4.50-11.00 [facility] Comment on above: Performed By: #### L [id number] #### [facility] [address] [place] [address] Jonathan Carter M.D. [id number] ED Prov Noteon 11-09-2024 ED Prov Note ED PROVIDER NOTE [facility] EMERGENCY DEPARTMENT NAME: Vinod Ann AGE: 49 y.o. : 1975 VISIT DATE: 11/09/2024 CSN: [id number] PCP: Ant Hodge, LUZ ELENA Chief Complaint Patient presents with Wound Check 49-year-old female with a history that includes anxiety, recovering alcoholic, hiatal hernia, hyperlipidemia, presenting to the emergency department for anxiety over her wound VAC she states. Patient thought her wound VAC was broken. She also felt like there might be extra fluid in her left arm. She assumed this meant she had life-threatening bleeding. She called the wound VAC nurse who said she could be with her within about 2 hours, but that was too long for the patient so she called the ambulance. She otherwise feels well she states. She is not having any kind of pain or discomfort, lightheadedness, syncope, near syncope, fevers chills vomiting diarrhea, altered sensation or motor. She states currently the wound VAC is working fine, but that it was not before. Past Medical History: Diagnosis Date Anxiety Arthritis GERD (gastroesophageal reflux disease) Hiatal hernia Hyperlipidemia Major depressive disorder without psychotic features Obesity Recovering alcoholic (HCC) Past Surgical History: Procedure Laterality Date CHOLECYSTECTOMY 2009 COLONOSCOPY 2021 TUBAL LIGATION 2013 US BREAST BIOPSY LEFT Left 05/24/2024 US BREAST BIOPSY LEFT 05/24/2024 WRIST SURGERY Left 1989 History reviewed. No pertinent family history. Social History Socioeconomic History Marital status: Single Tobacco Use Smoking status: Every Day Current packs/day: 2.00 Types: Cigarettes Smokeless tobacco: Never Vaping Use Vaping status: Some Days Substances: Nicotine Devices: Disposable Substance and Sexual Activity Alcohol use: Not Currently Comment: 5 months clean Drug use: Not Currently Types: Crack cocaine, Methamphetamines Comment: 5 months clean Social Drivers of Health Food Insecurity: Food Insecurity Present (12/14/2023) Received from [facility] Hunger Vital Sign Worried About Running Out of Food in the Last Year: Sometimes true Ran Out of Food in the Last Year: Sometimes true Transportation Needs: Unmet Transportation Needs (12/14/2023) Received from [facility] PRAPARE - Transportation Lack of Transportation (Medical): Yes Lack of Transportation (Non-Medical): Yes Housing Stability: High Risk (12/14/2023) Received from [facility] Housing Stability Vital Sign Unable to Pay for Housing in the Last Year: Yes Number of Places Lived in the Last Year: 2 Unstable Housing in the Last Year: Yes Previous Medications Medication Sig acetaminophen (TYLENOL) 500 MG tablet Take 2 (two) tablets (1,000 mg total) by mouth 3 (three) times a day as needed . gabapentin (NEURONTIN) 100 MG capsule Take 2 (two) capsules (200 mg total) by mouth 3 (three) times a day . hydrOXYzine (VISTARIL) 25 MG capsule Take 1 (one) capsule (25 mg total) by mouth 3 (three) times a day as needed . metoprolol succinate (TOPROL-XL) 25 MG 24 hr tablet Take 1 (one) tablet (25 mg total) by mouth every night at bedtime . omeprazole (PRILOSEC) 40 MG capsule Take 1 (one) capsule (40 mg total) by mouth daily . Xarelto 20 mg Tab Take 1 (one) tablet (20 mg total) by mouth daily with dinner . ARIPiprazole (ABILIFY) 30 MG tablet Take 1 (one) tablet (30 mg total) by mouth daily . busPIRone (BUSPAR) 10 MG tablet Take 1 (one) tablet (10 mg total) by mouth 3 (three) times a day . famotidine (PEPCID) 40 MG tablet Take 1 (one) tablet (40 mg total) by mouth daily . folic acid (FOLVITE) 1 MG tablet Take 1 (one) tablet (1 mg total) by mouth daily . hydrOXYzine (ATARAX) 50 MG tablet Take 1 (one) tablet (50 mg total) by mouth 3 (three) times a day as needed for anxiety . mirtazapine (REMERON) 45 MG tablet Take 1 (one) tablet (45 mg total) by mouth every evening . nystatin (MYCOSTATIN) powder Apply to affected area 3 times daily . Allergies Allergen Reactions Cephalexin Diarrhea and Hives Fenofibrate Other (See Comments) Hives with GI upset (emesis) Sertraline Diarrhea and Hives Olanzapine Hives and Other (See Comments) Adhesive Tape-Silicones Itching Clindamycin Hives States has take since with no issue 08/06/20. Elba Broussard MA Review of Systems Patient Vitals for the past 24 hrs: BP Temp Temp src Pulse Resp SpO2 Weight 11/09/24 1132 106/66 -- -- (!) 100 17 99 % -- 11/09/24 1039 (!) 149/84 98.3 degrees F (36.8 degrees C) Oral (!) 122 16 98 % 106.1 kg (234 lb) Physical Exam Vitals and nursing note reviewed. Constitutional: General: She is not in acute distress. Appearance: Normal appearance. She is not ill-appearing. HENT: Head: Normocephalic and atraumatic. Eyes: Extraocular Movements: Extraocular movements intact. Cardiovascular: Rate and Rhythm: Regul (more content not included)... Normal [facility] CBCon 11-01-2024 ABSOLUTE BAS 0.1 10*3/uL Normal 0.0-0.2 [facility] Comment on above: Performed By: #### P TT, PT, ACBC #### Testing performed at [facility] [address] [place] [facility] [place] [address] ABSOLUTE EOS 0.1 10*3/uL Normal 0.0-0.7 [facility] Comment on above: Performed By: #### P TT, PT, ACBC #### Testing performed at [address] [address] ABSOLUTE NEUTROPHIL COUNT 6.7 10*3/uL High 1.4-6.5 [facility] Comment on above: Performed By: #### P TT, PT, ACBC #### Testing performed at [address] [address] Basophils/100 WBC (Bld) 0.9 % Normal 0.0-2.0 [facility] Comment on above: Performed By: #### P TT, PT, ACBC #### Testing performed at [address] [address] DTYPE AUTO DIFF Normal [facility] Comment on above: Performed By: #### P TT, PT, ACBC #### Testing performed at [address] [address] Eosinophils/100 WBC (Bld) 1.2 % Normal 0.0-11.0 [facility] Comment on above: Performed By: #### P TT, PT, ACBC #### Testing performed at [address] [address] Lymphocytes (Bld) [#/Vol] 4.2 10*3/uL High 1.2-3.4 [facility] Comment on above: Performed By: #### P TT, PT, ACBC #### Testing performed at [address] [address] Lymphocytes/100 WBC (Bld) 35.0 % Normal 20.0-55.0 [facility] Comment on above: Performed By: #### P TT, PT, ACBC #### Testing performed at [address] [address] Monocytes (Bld) [#/Vol] 0.8 10*3/uL High 0.0-0.7 [facility] Comment on above: Performed By: #### P TT, PT, ACBC #### Testing performed at [address] [address] Monocytes/100 WBC (Bld) 7.0 % Normal 0.0-10.0 [facility] Comment on above: Performed By: #### P TT, PT, ACBC #### Testing performed at [address] [address] Neutrophils/100 WBC (Bld) 55.9 % Normal 37.0-75.0 [facility] Comment on above: Performed By: #### P TT, PT, ACBC #### Testing performed at [address] [address] Erythrocyte distribution width (RBC) [Ratio] 16.9 % High 11.5-14.5 [facility] Comment on above: Performed By: #### P TT, PT, ACBC #### Testing performed at [address] [address] Hematocrit (Bld) [Volume fraction] 43.2 % Normal 36.0-48.0 [facility] Comment on above: Performed By: #### P TT, PT, ACBC #### Testing performed at [address] [address] Hemoglobin (Bld) [Mass/Vol] 14.4 g/dL Normal 12.0-16.0 [facility] Comment on above: Performed By: #### P TT, PT, ACBC #### Testing performed at [address] [address] MCH (RBC) [Entitic mass] 27.9 pg Normal 26.0-35.0 [facility] Comment on above: Performed By: #### P TT, PT, ACBC #### Testing performed at [address] [address] MCHC (RBC) [Mass/Vol] 33.3 g/dL Normal 27.0-37.0 [facility] Comment on above: Performed By: #### P TT, PT, ACBC #### Testing performed at [address] [address] MCV (RBC) [Entitic vol] 83.8 fL Normal 80.0-100.0 [facility] Comment on above: Performed By: #### P TT, PT, ACBC #### Testing performed at [address] [address] Platelet mean volume (Bld) [Entitic vol] 8.0 fL Normal 7.4-11.0 [facility] Comment on above: Performed By: #### P TT, PT, ACBC #### Testing performed at [address] [address] Platelets (Bld) [#/Vol] 297 10*3/uL Normal 130-400 [facility] Comment on above: Performed By: #### P TT, PT, ACBC #### Testing performed at [address] [address] RBC (Bld) [#/Vol] 5.16 10*6/uL Normal 4.0-5.4 [facility] Comment on above: Performed By: #### P TT, PT, ACBC #### Testing performed at [address] [address] WBC (Bld) [#/Vol] 12.0 10*3/uL High 3.6-11.0 [facility] Comment on above: Performed By: #### P TT, PT, ACBC #### Testing performed at [address] [address] CBC, EDIF, PLATELETon 2023 ABSOLUTE BASOPHIL COUNT 0.1 10*3/uL 0.0 - 0.2 10*3/uL [facility] Basophils/100 WBC (Bld) 0.9 % 0.0 - 2.0 % [facility] Differential cell count method Nom (Bld) AUTO DIFF % [facility] Eosinophils (Bld) [#/Vol] 0.1 10*3/uL 0.0 - 0.7 10*3/uL [facility] Eosinophils/100 WBC (Bld) 1.2 % 0.0 - 11.0 % [facility] Erythrocyte distribution width (RBC) [Ratio] 16.9 % High 11.5 - 14.5 % [facility] Hematocrit (Bld) [Volume fraction] 43.2 % 36.0 - 48.0 % [facility] Hemoglobin (Bld) [Mass/Vol] 14.4 g/dL [facility] Interpretation and review of laboratory results Abnormal [facility] Lymphocytes (Bld) [#/Vol] 4.2 10*3/uL High 1.2 - 3.4 10*3/uL [facility] Lymphocytes/100 WBC (Bld) 35.0 % 20.0 - 55.0 % [facility] MCH (RBC) [Entitic mass] 27.9 pg 26.0 - 35.0 PG [facility] MCHC (RBC) [Mass/Vol] 33.3 g/dL [facility] MCV (RBC) [Entitic vol] 83.8 fL [facility] Monocytes (Bld) [#/Vol] 0.8 10*3/uL High 0.0 - 0.7 10*3/uL [facility] Monocytes/100 WBC (Bld) 7.0 % 0.0 - 10.0 % [facility] Neutrophils (Bld) [#/Vol] 6.7 10*3/uL High 1.4 - 6.5 10*3/uL [facility] Neutrophils/100 WBC (Bld) 55.9 % 37.0 - 75.0 % [facility] Platelet mean volume (Bld) [Entitic vol] 8.0 fL [facility] Platelets (Bld) [#/Vol] 297 10*3/uL 130 - 400 10*3/uL [facility] RBC (Bld) [#/Vol] 5.16 10*6/uL 4.0 - 5.4 10*6/uL [facility] WBC (Bld) [#/Vol] 12.0 10*3/uL High 3.6 - 11.0 10*3/uL [facility] PROTIMEon 11-01-2024 INR Coag (PPP) [Relative time] 1.20 {INR} High 0.85-1.10 [facility] Comment on above: Result Comment: 2.0-3.0 THERAPEUTIC RANGE 2.5-3.5 MECHANICAL VALVE RANGE Performed By: #### P TT, PT, ACBC #### Testing performed at [facility] [address] [place] [address], [place] [address] PT Coag (PPP) [Time] 15.4 s High 11.8-14.4 [facility] Comment on above: Performed By: #### P TT, PT, ACBC #### Testing performed at [address] [address] PROTIME-INRon 11-01-2024 INR Coag (PPP) [Relative time] 1.20 {INR} High 0.85 - 1.10 [facility] Comment on above: 2.0-3.0 THERAPEUTIC RANGE 2.5-3.5 MECHANICAL VALVE RANGE Interpretation and review of laboratory results Abnormal [facility] PT Coag (PPP) [Time] 15.4 s [facility] PTTon 11-01-2024 aPTT Coag (Bld) [Time] 28.3 s [facility] Comment on above: CARDIAC AND PE/DVT THERAPUTIC RANGE 69-97 SEC VASCULAR/THREATENED LIMB THERAPUTIC RANGE 80-112 SEC [facility] aPTT Coag (Bld) [Time] 28.3 s Normal 22.4-34.7 [facility] Comment on above: Result Comment: CARDIAC AND PE/DVT THERAPUTIC RANGE 69-97 SEC VASCULAR/THREATENED LIMB THERAPUTIC RANGE 80-112 SEC Performed By: #### P TT, PT, ACBC #### Testing performed at [address] [address] ANAEROBIC CULTUREon 10-30-20 ANAEROBIC CULTURE SPECIMEN DESCRIPTION LEFT BREAST COLONY COUNT MODERATE GROWTH CULTURE FINEGOLDIA MAGNA * Result Note: Penicillins are considered to be an effective first-line therapy for anaerobic cocci. Cephalosporins are usually, but not always, effective. Carbapenems are extremely active. Manual Of Clinical Microbiology 10th Edition [facility] Press * * Result Note: Testing performed at [place], [place] [address] * REPORT STATUS 11/02/2024 * Result Note: FINAL * Normal [facility] Comment on above: Performed By: #### A NER #### Testing performed at [address] [address] Testing performed at [address] [address] GLUCOSE (POC DEVICE)on 10-30 GLUCOSE, POINT OF CARE 134 [facility] Interpretation and review of laboratory results Abnormal [employer] [id number] [facility] GLUCOSE, POINT OF CARE 117 High [facility] Interpretation and review of laboratory results Abnormal [facility] Operator [id number] [facility] HCG ( test) Ql (U)O rdered By: Arabella Short on 10-30-2024 HCG.beta subunit [Moles/Vol] Negative [facility] Comment on above: lot#[id number] exp: internal control OK [facility] POCT GLUCOSEon 10-30-2024 Glucose [Mass/Vol] 134 mg/dL High 70-100 [facility] MOTOR [employer]OSS Normal [facility] Glucose [Mass/Vol] 117 mg/dL High 70-100 [facility] [employer]OR [employer]OSS [id number] Normal [facility] RAPID TOX SCREEN,URINEon AMPHETAMINE Negative Normal NEGATIVE [facility] Comment on above: Result Comment: <500 ng/ml CUTOFF Performed By: #### R TOX #### Testing performed at [address] [address] BARBITURATES Negative Normal NEGATIVE [facility] Comment on above: Result Comment: <200 ng/ml CUTOFF Performed By: #### R TOX #### Testing performed at [address] [place] [address] BENZODIAZEPINES Negative Normal NEGATIVE [facility] Comment on above: Result Comment: <200 ng/ml CUTOFF Performed By: #### R TOX #### Testing performed at [address] [place] [address] BUPRENORPHINE Negative Normal NEGATIVE [facility] Comment on above: Result Comment: <12. 5 ng/ml CUTOFF Performed By: #### R TOX #### Testing performed at [address] [place] [address] CANNABINOIDS Negative Normal NEGATIVE [facility] Comment on above: Result Comment: <50 ng/ml CUTOFF Performed By: #### R TOX #### Testing performed at [address] [address] COCAINE Negative Normal NEGATIVE [facility] Comment on above: Result Comment: <150 ng/ml CUTOFF Performed By: #### R TOX #### Testing performed at [address] [address] FENTANYL Negative Normal NEGATIVE [facility] Comment on above: Result Comment: 1.0 ng/mL CUTOFF *Unconfirmed Screening Result* Unconfirmed screening results are to be used only for medical treatment purposes. This test has not been approved by the FDA. Performed By: #### R TOX #### Testing performed at [address] [place] [address] METHAMPHETAMINE Negative Normal NEGATIVE [facility] Comment on above: Result Comment: <500 ng/ml CUTOFF Performed By: #### R TOX #### Testing performed at [address] [address] OPIATES Negative Normal NEGATIVE [facility] Comment on above: Result Comment: <300 ng/ml CUTOFF Performed By: #### R TOX #### Testing performed at [address] [address] OXYCODONE Negative Normal NEGATIVE [facility] Comment on above: Result Comment: <100 ng/ml CUTOFF Performed By: #### R TOX #### Testing performed at [address] [address] TRICYCLIC ANTIDEPRESSANTS Negative Normal NEGATIVE [facility] Comment on above: Result Comment: <100 0 ng/ml CUTOFF Performed By: #### R TOX #### Testing performed at [address] [address] TISSUE CULTUREon 10-30-2024 TISSUE CULTURE SPECIMEN DESCRIPTION LEFT BREAST GRAM SMEAR RARE * Result Note: WBC'S SEEN * * Result Note: MODERATE * * Result Note: RED BLOOD CELLS * * Result Note: NO * * Result Note: SQUAMOUS EPITHELIAL CELLS * * Result Note: NO ORGANISMS SEEN * CULTURE NORMAL SKIN MAGGIE PRESENT * Result Note: Testing performed at [place] [address] * REPORT STATUS 11/02/2024 * Result Note: FINAL * Normal [facility] Comment on above: Performed By: #### T ISC #### Testing performed at [address] [address] Testing performed at [address] [address] TOXICOLOGY DRUG SCREEN, URIN Sachin 10-30-2024 Amphetamine (U) [Mass/Vol] Negative NEGATIVE NG/ML [facility] Comment on above: <500 ng/ml CUTOFF Barbiturates Screen Ql (U) Negative NEGATIVE NG/ML [facility] Comment on above: <200 ng/ml CUTOFF Benzodiazepines Ql (U) Negative NEGATIVE NG/ML [facility] Comment on above: <200 ng/ml CUTOFF Benzoylecgonine Ql (U) Negative NEGATIVE NG/ML [facility] Comment on above: <150 ng/ml CUTOFF Buprenorphine Ql (U) Negative NEGATIV E NG/ML [facility] Comment on above: <12.5 ng/ml CUTOFF Cannabinoids Screen Ql (U) Negative NEGATIVE NG/ML [facility] Comment on above: <50 ng/ml CUTOFF Fentanyl Negative NEGATIVE NG/ML [facility] Comment on above: 1.0 ng/mL CUTOFF *Unconfirmed Screening Result* Unconfirmed screening results are to be used only for medical treatment purposes. This test has not been approved by the FDA. Methamphetamine (U) [Mass/Vol] Negative NEGATIVE NG/ML [facility] Comment on above: <500 ng/ml CUTOFF Opiates Screen Ql (U) Negative NEGATIVE NG/ML [facility] Comment on above: <300 ng/ml CUTOFF oxyCODONE Ql (U) Negative NEGATIVE NG/ML [facility] Comment on above: <100 ng/ml CUTOFF Tricyclic antidepressants Screen Ql (U) Negative NEGATIVE NG/ML [facility] Comment on above: <1000 ng/ml CUTOFF [facility] CMP FASTINGon 10-24-2024 A:G RATIO 1.6 RATIO Normal [facility] Comment on above: Performed By: #### C MPF #### Testing performed at [address] [address] ALBUMIN 4.5 G/dl Normal 3.5-5.0 [facility] Comment on above: Performed By: #### C MPF #### Testing performed at [address] [address] ALP [Catalytic activity/Vol] 127 U/L High 38-126 [facility] Comment on above: Performed By: #### C MPF #### Testing performed at [address] [address] ALT [Catalytic activity/Vol] 29 U/L Normal <35 [facility] Comment on above: Performed By: #### C MPF #### Testing performed at [address] [address] AST [Catalytic activity/Vol] 28 U/L Normal 14-36 [facility] Comment on above: Performed By: #### C MPF #### Testing performed at [address] [address] Bilirubin [Mass/Vol] 0.6 mg/dL Normal 0.2-1.3 [facility] Comment on above: Performed By: #### C MPF #### Testing performed at [address] [address] Calcium [Mass/Vol] 9.9 mg/dL Normal 8.4-10.2 [facility] Comment on above: Performed By: #### C MPF #### Testing performed at [address] [address] Chloride [Moles/Vol] 106 mmol/L Normal 98-107 [facility] Comment on above: Result Comment: Joby persaud note: Triglyceride levels of 600mg/dL or higher may positively bias chloride results by approximately 2.1 mmol Performed By: #### C MPF #### Testing performed at [address] [address] CO2 [Moles/Vol] 30 mmol/L Normal 22-30 [facility] Comment on above: Performed By: #### C MPF #### Testing performed at [address] [address] Creatinine [Mass/Vol] 0.70 mg/dL Normal 0.70-1.20 [facility] Comment on above: Performed By: #### C MPF #### Testing performed at [address] [address] EST. GFR, 114 ml/min/1.73sq.m [facility] Comment on above: Performed By: #### C MPF #### Testing performed at [address] [address] EST. GFR,Non 94 ml/min/1.73sq.m [facility] Comment on above: Performed By: #### C MPF #### Testing performed at [address] [address] GFR Information Average GFR for 50-5 9 years old = 93. Normal [facility] Comment on above: Result Comment: Personal Financial Counselor bijan Kidney disease, GFR = <60. Kidney failure, GFR = <15. The GFR estimate is not adjusted for extreme body surface area or acute process, nor has it been validated for women or ethnic groups other than and . Performed By: #### C MPF #### Testing performed at [address] [address] Glucose [Mass/Vol] 99 mg/dL Normal 70-100 [facility] Comment on above: Result Comment: NORMAL <100 mg/dL PREDIABETES 101-126 mg/dL DIABETES 126 mg/dL or higher Performed By: #### C MPF #### Testing performed at [address] [address] Potassium [Moles/Vol] 4.1 mmol/L Normal 3.5-5.1 [facility] Comment on above: Performed By: #### C MPF #### Testing performed at [address] [address] Protein [Mass/Vol] 7.3 g/dL Normal 6.3-8.2 [facility] Comment on above: Performed By: #### C MPF #### Testing performed at [address] [address] Sodium [Moles/Vol] 138 mmol/L Normal 137-145 [facility] Comment on above: Performed By: #### C MPF #### Testing performed at [address] [address] Urea nitrogen [Mass/Vol] 10 mg/dL Normal 7-20 [facility] Comment on above: Performed By: #### C MPF #### Testing performed at [address] [address] ED Prov Noteon 10-03-2024 ED Prov Note [facility] DEPARTMENT ATTENDING NOTE: NAME: Vinod Ann CSN: [id number] 49 y.o. PCP: Ant Hodge CNP History: Chief Complaint: Allergic Reaction (Pt stated the area is starting to burn where the adhesive is ) HPI: The history was obtained from the patient. Vinod is a 49 y.o. female who presents with a chief complaint of rash. The patient has history of alcoholism, currently sober, HLD anxiety and chronic left breast abscess recently surgically removed Dr. Pisano 09/26 [place], [place]. Wound VAC was placed. For the past days she has felt burning pain around the top part of the skin overlying and above the clear tape which is holding the wound VAC in place. She denies fever nor any other complaints. She called the wound care nurse and she was advised to come to the emergency room to make sure it was not a allergic reaction ED Course / Medical Decision Making: ED COURSE: 49-year-old female presents with mild erythematous rash. Differentials include tape allergy, cellulitis. Given her history and examination the former is considered. Patient is otherwise well-appearing, I will provide 3-day course of prednisone, 7 days doxycycline, with instructions to call her surgeons office today, or tomorrow. After reviewing the items above, I did look at previous medical documentation, such as recent hospitalizations, office visits, and/or recent consultations with PCP/specialist. SDOH: Another factor that I considered in Vinod's care was her Social Determinants of Health (SDOH). During this ED encounter, she did NOT appear to have any significant issues identified. Laboratory & Radiological Imaging (if done): Labs Reviewed - No data to display No orders to display Clinical Impression: 1. Allergy to adhesive tape ROS: Review of Systems Constitutional: Negative for fever. Skin: Positive for rash. Positives and pertinent negatives as per HPI. All other systems were reviewed and are negative. Physical Exam: Patient Vitals for the past 24 hrs: BP Temp Temp src Pulse Resp SpO2 Height Weight 10/03/24 1900 (!) 146/87 98.2 degrees F (36.8 degrees C) Oral (!) 118 17 97 % 5' 5 105.2 kg (232 lb) Physical Exam Vitals and nursing note reviewed. Constitutional: Appearance: Normal appearance. HENT: Head: Normocephalic and atraumatic. Nose: Nose normal. Mouth/Throat: Mouth: Mucous membranes are moist. Pharynx: Oropharynx is clear. Eyes: Conjunctiva/sclera: Conjunctivae normal. Pupils: Pupils are equal, round, and reactive to light. Cardiovascular: Rate and Rhythm: Normal rate and regular rhythm. Heart sounds: Normal heart sounds. Pulmonary: Effort: Pulmonary effort is normal. Breath sounds: Normal breath sounds. Abdominal: General: Abdomen is flat. Palpations: Abdomen is soft. Skin: General: Skin is warm and dry. Neurological: General: No focal deficit present. Mental Status: She is alert and oriented to person, place, and time. Psychiatric: Mood and Affect: Mood normal. Behavior: Behavior normal. Procedures I did personally review Vinod's past medical history, surgical history, social history, as well as family history (when relevant). In this case, I also oversaw the her drug management by reviewing her medication list, allergy list, as well as the medications that I prescribed during the ED course and/or recommended as an out-patient (including possible OTC medications such as acetaminophen, NSAIDs , etc). Her past medical problem list included: Active Ambulatory Problems Diagnosis Date Noted No Active Ambulatory Problems Resolved Ambulatory Problems Diagnosis Date Noted No Resolved Ambulatory Problems Past Medical History: Diagnosis Date Anxiety Arthritis GERD (gastroesophageal reflux disease) Hiatal hernia Hyperlipidemia Major depressive disorder without psychotic features Obesity Recovering alcoholic (HCC) ED MEDICATIONS GIVEN: Medications doxycycline (VIBRAMYCIN) oral solid 100 mg (has no administration in time range) predniSONE (DELTASONE) tablet 60 mg (has no administration in time range) Disposition: ED Disposition ED Disposition Discharge Condition Stable Comment Vinod Ann discharged to home/self care in stable condition. New Prescriptions doxycycline hyclate (VIBRA-TABS) 100 MG tablet Take 1 (one) tablet (100 mg total) by mouth 2 (two) times a day for 7 days . predniSONE (DELTASONE) 10 MG tablet Take 5 (five) tablets (50 mg total) by mouth daily for 1 day, THEN 4 (four) tablets (40 mg total) daily for 1 day, THEN 2 (two) tablets (20 mg total) daily for 1 day. PMHx: Past Medical History: Diagnosis Date Anxiety Arthritis GERD (gastroesophageal reflux disease) Hiatal hernia Hyperlipidemia Major depressive disorder without psychotic features Obesity Recovering alcoholic (HCC) PMSx: Past Surgical History: Procedure Laterality Date CHO (more content not included)... Normal [facility] RAPID TOX SCREEN,URINEon AMPHETAMINE Negative Normal NEGATIVE [facility] Comment on above: Result Comment: <500 ng/ml CUTOFF BARBITURATES Negative Normal NEGATIVE [facility] Comment on above: Result Comment: <200 ng/ml CUTOFF BENZODIAZEPINES Negative Normal NEGATIVE [facility] Comment on above: Result Comment: <200 ng/ml CUTOFF BUPRENORPHINE Negative Normal NEGATIVE [facility] Comment on above: Result Comment: <12. 5 ng/ml CUTOFF CANNABINOIDS Negative Normal NEGATIVE [facility] Comment on above: Result Comment: <50 ng/ml CUTOFF COCAINE Negative Normal NEGATIVE [facility] Comment on above: Result Comment: <150 ng/ml CUTOFF FENTANYL Negative Normal NEGATIVE [facility] Comment on above: Result Comment: 1.0 ng/mL CUTOFF *Unconfirmed Screening Result* Unconfirmed screening results are to be used only for medical treatment purposes. This test has not been approved by the FDA. METHADONE Negative Normal NEGATIVE [facility] Comment on above: Result Comment: Meth adone Metabolite <100 ng/ml CUTOFF METHAMPHETAMINE Negative Normal NEGATIVE [facility] Comment on above: Result Comment: <500 ng/ml CUTOFF OPIATES Negative Normal NEGATIVE [facility] Comment on above: Result Comment: <300 ng/ml CUTOFF OXYCODONE Negative Normal NEGATIVE [facility] Comment on above: Result Comment: <100 ng/ml CUTOFF TRICYCLIC ANTIDEPRESSANTS Negative Normal NEGATIVE [facility] Comment on above: Result Comment: <100 0 ng/ml CUTOFF TOXICOLOGY DRUG SCREEN, CAROL Stephenson 09-26-2024 Amphetamine (U) [Mass/Vol] Negative NEGATIVE NG/ML [facility] Comment on above: <500 ng/ml CUTOFF Barbiturates Screen Ql (U) Negative NEGATIVE NG/ML [facility] Comment on above: <200 ng/ml CUTOFF Benzodiazepines Ql (U) Negative NEGATIVE NG/ML [facility] Comment on above: <200 ng/ml CUTOFF Benzoylecgonine Ql (U) Negative NEGATIVE NG/ML [facility] Comment on above: <150 ng/ml CUTOFF Buprenorphine Ql (U) Negative NEGATIV E NG/ML [facility] Comment on above: <12.5 ng/ml CUTOFF Cannabinoids Screen Ql (U) Negative NEGATIVE NG/ML [facility] Comment on above: <50 ng/ml CUTOFF Fentanyl Negative NEGATIVE NG/ML [facility] Comment on above: 1.0 ng/mL CUTOFF *Unconfirmed Screening Result* Unconfirmed screening results are to be used only for medical treatment purposes. This test has not been approved by the FDA. Methadone Screen Ql (U) Negative NEGATIVE NG/ML [facility] Comment on above: Methadone Metabolite <100 ng/ml CUTOFF Methamphetamine (U) [Mass/Vol] Negative NEGATIVE NG/ML [facility] Comment on above: <500 ng/ml CUTOFF Opiates Screen Ql (U) Negative NEGATIVE NG/ML [facility] Comment on above: <300 ng/ml CUTOFF oxyCODONE Ql (U) Negative NEGATIVE NG/ML [facility] Comment on above: <100 ng/ml CUTOFF Tricyclic antidepressants Screen Ql (U) Negative NEGATIVE NG/ML [facility] Comment on above: <1000 ng/ml CUTOFF [facility] WOUND CULTUREon 09-26-2024 WOUND CULTURE SPECIMEN DESCRIPTION LEFT BREAST SPECIAL REQUESTS LEFT BREAST GRAM SMEAR NO * Result Note: WBC'S SEEN * * Result Note: RARE * * Result Note: SQUAMOUS EPITHELIAL CELLS * * Result Note: NO ORGANISMS SEEN * CULTURE NO GROWTH 2 DAYS * Result Note: Testing performed at [place] [address] * REPORT STATUS 09/29/2024 * Result Note: FINAL * Normal [facility] Comment on above: Performed By: #### W DC #### [place] [address] Testing [place] [address] ED Prov Noteon 09-22-2024 ED Prov Note ED PROVIDER NOTE [facility] EMERGENCY DEPARTMENT NAME: Vinod Ann AGE: 49 y.o. : 1975 VISIT DATE: 09/22/2024 CSN: [id number] PCP: Ant Hodge, HAND SCRAPER Chief Complaint Patient presents with Abscess Patient had a abscess drained in her vagina on , September 18, 2024. Subsequently, it drained out blood and pus, but still has some minimal dark drainage and tenderness. She normally is on Xarelto but is not taking it currently in preparation for breast surgery scheduled for September 26, 2024. History reviewed. No pertinent past medical history. Past Surgical History: Procedure Laterality Date US BREAST BIOPSY LEFT Left 05/24/2024 US BREAST BIOPSY LEFT 05/24/2024 History reviewed. No pertinent family history. Social History Socioeconomic History Marital status: Single Tobacco Use Smoking status: Every Day Current packs/day: 2.00 Types: Cigarettes Smokeless tobacco: Never Vaping Use Vaping status: Some Days Substances: Nicotine Devices: Disposable Substance and Sexual Activity Alcohol use: Not Currently Comment: 5 months clean Drug use: Not Currently Types: Crack cocaine, Methamphetamines Comment: 5 months clean Previous Medications Medication Sig sulfamethoxazole-trimetho prim (BACTRIM DS,SEPTRA DS) 800-160 mg per tablet Take 1 (one) tablet by mouth 2 (two) times a day . ARIPiprazole (ABILIFY) 30 MG tablet Take 1 (one) tablet (30 mg total) by mouth daily . famotidine (PEPCID) 40 MG tablet Take 1 (one) tablet (40 mg total) by mouth daily . folic acid (FOLVITE) 1 MG tablet Take 1 (one) tablet (1 mg total) by mouth daily . hydrOXYzine (VISTARIL) 25 MG capsule Take 1 (one) capsule (25 mg total) by mouth 3 (three) times a day as needed . mirtazapine (REMERON) 45 MG tablet Take 1 (one) tablet (45 mg total) by mouth every evening . Allergies Allergen Reactions Cephalexin Diarrhea and Hives Fenofibrate Other (See Comments) Hives with GI upset (emesis) Sertraline Diarrhea and Hives Olanzapine Hives and Other (See Comments) Clindamycin Hives States has take since with no issue 08/06/20. Elba Broussard MA Review of Systems All other systems reviewed and are negative. Patient Vitals for the past 24 hrs: BP Temp Temp src Pulse Resp SpO2 Weight 09/22/24 1330 -- -- -- -- -- 99 % -- 09/22/24 1329 -- 98.2 degrees F (36.8 degrees C) Oral -- -- -- -- 09/22/24 1321 126/71 -- -- 97 14 -- 104.3 kg (230 lb) Physical Exam Vitals and nursing note reviewed. Exam conducted with a adjunct physics instructor present. Constitutional: Appearance: Normal appearance. HENT: Head: Normocephalic and atraumatic. Right Ear: External ear normal. Left Ear: External ear normal. Nose: Nose normal. Mouth/Throat: Mouth: Mucous membranes are moist. Eyes: Extraocular Movements: Extraocular movements intact. Conjunctiva/sclera: Conjunctivae normal. Cardiovascular: Rate and Rhythm: Tachycardia present. Musculoskeletal: General: Normal range of motion. Cervical back: Normal range of motion. Pulmonary: Effort: Pulmonary effort is normal. Abdominal: General: There is no distension. Genitourinary: Labia: Right: Tenderness present. Comments: No active bleeding or discharge from the right labia but there is induration and tenderness to palpation in the superior aspect. Skin: General: Skin is warm and dry. Neurological: General: No focal deficit present. Mental Status: She is alert and oriented to person, place, and time. Psychiatric: Mood and Affect: Mood normal. Behavior: Behavior normal. Laboratory & Radiographic Imaging (if done): No results found for this visit on 09/22/24. No orders to display Procedures Medical Decision Making The area does not appear to be amenable or in need of further immediate interventions such as reincision and drainage. She will need to have gynecologic follow-up for definitive care and I have arranged that for September at 11:30 AM. Until then, continue local care including sitz bath's and acetaminophen as needed for discomfort. Continue antibiotics as previously prescribed. Return for reevaluation for change worsening or new concern that arises. The patient has been informed that they may have pre-hypertension or hypertension based on a blood pressure reading in the Emergency Department. I recommend that the patient call the primary care provider listed on their discharge instructions or a physician of their choice as soon as possible to arrange follow-up in the next 4 weeks for further evaluation of possible pre-hypertension or hypertension. . Clinical Impression: 1. Labial cyst 2. Labial abscess ED Disposition None Follow-up Information 1. Rachael Contreras MD. Specialty: Obstetrics/Gynecology Why: Your appointment is scheduled for September at 11:30 AM [facility] [address] [address] [phone] (more content not included)... Normal [facility] INCISION AND DRAINAGEon - Tiff Wilson CNP 09/18/2024 7:55 PM INCISION AND DRAINAGE Date/Time: 09/18/2024 5:50 PM Performed by: Tiff Wilson CNP Authorized by: Tiff Wilson CNP Indications: Type: Abscess Location: Body area: Anogenital Procedure Details: Needle gauge: 18 Incision type: Single straight Complexity: Simple Drainage: Serosanguinous and purulent Drainage amount: Moderate Wound treatment: Wound left open Dressing: non-adherent dressing [facility] Radiology Study observation (narrative) [facility] CNOVon 09-03-2024 CNOV Office Visit (OTOLMN ) ----- SETHVINOD Paris ([id number]) 1975 F Date Time Provider Department 09/03/24 10:20 AM MATTHEW HOWE OTOLMN During your visit today, we recorded the following information about you: Jensen Cruz RN 09/03/2024 10:07 AM Signed Tobacco Use: Types: Cigarettes Was smoking cessation packet given? N/A - Patient is a non-smoker or quit >1 year ago. Was a referral initiated?N/A Patient is a non-smoker Matthew Howe MD 09/03/2024 10:43 AM Signed CC: Vinod Paris Seth is a 49 year old female seen as a return patient with a history of vocal fold leukoplakia and laryngeal candidiasis. IMPRESSION, PLANS and RECOMMENDATIONS: She returns today with a history of vocal leukoplakia and dysphonia but no significant changes. She continues to smoke 1 pack per day. Her leukoplakia remains stable from her previous exam with resolution of the supraglottic candidal infection and good bilateral pliability. We discussed a repeat evaluation in three months to assess for stability, given the high risk of the lesions. She was again counseled on the importance of smoking cessation, she understands, but continues to struggle with this. We discussed that her tongue pain is likely in the setting of dental trauma, although may in part be due to her smoking. There are no appreciable masses or lesions at the left lateral tongue where her complaints are localized. She will discuss this with her dentist. She also has had some discomfort in her left ear. It is normal on examination. She has been told in the past that she has eustachian tube dysfunction, but also has some mild tenderness in her left TMJ on palpation. She will inflate her ears and also review this with her dentist. Nsopharyngeal fullness is unchanged. 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 Recommended stroboscopy to evaluate which showed erythematous changes and irregular margin of the right vocal fold that could be neoplastic; additionally, there was some nasopharyngeal fullness that does not appear to be malignant and is likely just redundant adenoid tissue. Will see her back after ongoing inflammation has subsided as she will have completed her current course of therapy for her ongoing sally infection, started Prilosec in addition to her current Omeprazole, and reduced (versus ideally stopped) her smoking. Extensively counseled the patient that she needs to follow up in 3-4 weeks for further re-evaluation given her high risk lesion. We will reassess in 4 weeks and if there is a persistent lesion, we will likely need to go to the operating room for DML, biopsy, and excision of lesion, will also obtain a biopsy of the nasopharynx at that time as well. Left tongue base cysts, which appear benign. We soul also evaluate in the OR and determine if biopsy is indicated. INTERVAL HPI: She had a period of three days where she was not smoking, but she continues with 1 ppd. She continues with the Omeprazole but needs a refill. She notes some soreness of the tongue and thinks that she may be getting another thrush infection. She ended her course of fluconazole four days early about four days ago. ALLERGIES Allergen Reactions Cephalexin Hives, Diarrhea Fenofibrate Other: See Comments Hives with GI upset (emesis) Zoloft [Sertraline * Hives, Diarrhea Zyprexa [Olanzapine] Mental Status Change, Hives Clindamycin Hives States has take since with no issue 08/06/20. Elba Broussard MA Current Outpatient Medications Medication Sig ARIPiprazole (ABILIFY) 20 mg tablet Take 30 mg by mouth once daily. prazosin (MINIPRESS) 2 mg cap Take 2 mg by mouth daily at bedtime. folic acid 1 mg tablet Take 1 tablet by mouth once daily. fluticasone (FLONASE) 50 mcg/actuation nasal spray Use 1 [place] in the nose. albuterol HFA (PROVENTIL HFA, VENTOLIN HFA) 90 mcg/actuation inhaler Inhale 2 Puffs as instructed every 6 hours as needed. famotidine (PEPCID) 40 mg tablet Take 1 tablet by mouth daily at bedtime. rivaroxaban (XARELTO) 20 mg tablet Take 20 mg by mouth. rosuvastatin (CRESTOR) 10 mg tablet Take 10 mg by mouth once daily. aspirin 81 mg cap Take 81 mg by mouth once daily. amLODIPine (NORVASC) 2.5 mg tablet Take 1 tablet by mouth once daily. oxybutynin ER (DITROPAN XL) 10 mg 24 hr tablet Take 1 tablet by mouth once daily. ergocalciferol 50,000 unit capsule (VITAMIN D2, DRISDOL) Take 1 capsule by mouth one time a week. omeprazole (PRILOSEC) 40 mg capsule Take 1 capsule by mouth once daily. mirtazapine (REMERON) 45 mg tablet Take 45 mg by mouth. ketoconazole (NIZORAL) 2 % cream Apply 1 Application to affected area. (Patient not taking: Reported on 09/03/2024) hydroCHLOROthiazide 25 mg tablet Take 25 mg by mouth once daily. (Patient not taking: (more content not included)... Normal [facility] CNOVon 08-13-2024 OV Office Visit (OTOLMN ) ----- VINOD ANN ([id number]) 1975 F Date Time Provider Department 08/13/24 11:30 AM MATTHEW HOWE During your visit today, we recorded the following information about you: Matthew Howe MD 08/13/2024 12:13 PM Signed This consult was requested by Dr. Escobar for an opinion regarding vocal cord leukoplakia. 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 Recommended stroboscopy to evaluate which showed erythematous changes and irregular margin of the right vocal fold that could be neoplastic; additionally, there was some nasopharyngeal fullness that does not appear to be malignant and is likely just redundant adenoid tissue. Will see her back after ongoing inflammation has subsided as she will have completed her current course of therapy for her ongoing sally infection, started Prilosec in addition to her current Omeprazole, and reduced (versus ideally stopped) her smoking. Extensively counseled the patient that she needs to follow up in 3-4 weeks for further re-evaluation given her high risk lesion. We will reassess in 4 weeks and if there is a persistent lesion, we will likely need to go to the operating room for DML, biopsy, and excision of lesion, will also obtain a biopsy of the nasopharynx at that time as well. Left tongue base cysts, which appear benign. We soul also evaluate in the OR and determine if biopsy is indicated. HPI: 49 year old female with history of significant smoking and substance abuse that presents for dysphonia, bilateral vocal cord leukoplakia. Previously seen by Dr. Escobar who planned for DML, excision and possible KTP laser ablation. Patient voice has been stable. Energy and weight stable. Currently dealing with thrush infection. Still smoking, has been smoking for 36 years, smoked >1-2 packs a day. ALLERGIES Allergen Reactions Cephalexin Hives, Diarrhea Fenofibrate Other: See Comments Hives with GI upset (emesis) Zoloft [Sertraline * Hives, Diarrhea Zyprexa [Olanzapine] Mental Status Change, Hives Clindamycin Hives States has take since with no issue 08/06/20. Elba Broussard MA Current Outpatient Medications Medication Sig hydroCHLOROthiazide 25 mg tablet Take 25 mg by mouth once daily. rivaroxaban (XARELTO) 20 mg tablet Take 20 mg by mouth. rosuvastatin (CRESTOR) 10 mg tablet Take 10 mg by mouth once daily. aspirin 81 mg cap Take 81 mg by mouth once daily. melatonin 5 mg tablet Take 1 tablet by mouth as needed for insomnia. amLODIPine (NORVASC) 2.5 mg tablet Take 1 tablet by mouth once daily. famotidine (PEPCID) 20 mg tablet Take 1 tablet by mouth at bedtime as needed. acetaminophen (TYLENOL) 325 mg tablet Take 650 mg by mouth once daily. oxybutynin ER (DITROPAN XL) 10 mg 24 hr tablet Take 1 tablet by mouth once daily. ergocalciferol 50,000 unit capsule (VITAMIN D2, DRISDOL) Take 1 capsule by mouth one time a week. omeprazole (PRILOSEC) 40 mg capsule Take 1 capsule by mouth once daily. multivitamin tablet Take 1 tablet by mouth once daily. No current facility-administered medications for this visit. 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 02/15 with of mother Severe episode of recurrent major depressive disorder, without psychotic features ([facility]) Kendra Padilla Suicidal ideation PAST SURGICAL HISTORY Procedure Laterality Date ABDOMINAL SURGERY HX BREAST SURGERY HX BX OF BREAST; INCISIONAL Left 08/29/2019 [facility]- Benign COLONOSCOPY 09/22/2022 COLONOSCOPY FLX DX W/COLLJ SPEC WHEN PFRMD 12/01/2019 Colonoscopy PAST SURGICAL HISTORY OF 03/2010 gall bladder removed PAST SURGICAL HISTORY OF Left wrist surgery when she was 15 years old PAST SURGICAL HISTORY OF 2013 tubal ligation PAST SURGICAL HISTORY OF 02/2022 bilateral cyst removed, [place] Social History: Social History Tobacco Use Smoking status: Every Day Current packs/day: 2.00 Average packs/day: 2.0 packs/day for 29.0 years (58.0 ttl pk-yrs) Types: Cigarettes Smokeless tobacco: Never Vaping Use Vaping status: Former Substances: Nicotine Substance Use Topics Alcohol use: Yes Comment: quit , small relapse in 02/15 with of mother. FAMILY HISTORY Problem Relation Age of Onset Lung Cancer Mother at 63 Osteoporosis Mother Alcohol/Drug Mother alcohol Hypertension Father Alc (more content not included)... Normal [facility] 08-13-2024 [facility] Telephone (HNQ) ----- VINOD ANN ([id number]) 1975 F Date Time Provider Department 08/13/24 MATTHEW HOWE During your visit today, we recorded the following information about you: Supriya Gray 08/13/2024 11:57 AM Signed Spoke with pt. Pt wants to know if they should stop taking blood thinners before the potential biopsy on Sep 03. Allergies As of Date: 08/13/2024 Noted Allergy Reaction CEPHALEXIN 02/26/2018 4 - Hives 6 - Diarrhea FENOFIBRATE 08/31/2019 14 - Other: See Comments Comments: Hives with GI upset (emesis) ZOLOFT (SERTRALINE HCL) 06/23/2013 4 - Hives 6 - Diarrhea ZYPREXA (OLANZAPINE) 04/04/2024 1 - Mental Status Change 4 - Hives CLINDAMYCIN 09/29/2019 4 - Hives Comments: States has take since with no issue 08/06/20. Elba Broussard MA Date Reviewed: 08/13/2024 Reviewed by: Rona Abernathy MA - Fully Assessed Prescriptions as of 08/13/2024 - ARIPiprazole (ABILIFY) 20 mg tablet Take 20 mg by mouth once daily. - clotrimazole (MYCELEX) 10 mg maricruz 10 mg. - mirtazapine (REMERON) 45 mg tablet Take 45 mg by mouth. - prazosin (MINIPRESS) 2 mg cap Take 2 mg by mouth daily at bedtime. - ketoconazole (NIZORAL) 2 % cream Apply 1 Application to affected area. - folic acid 1 mg tablet Take 1 tablet by mouth once daily. - fluticasone (FLONASE) 50 mcg/actuation nasal spray Use 1 [place] in the nose. - albuterol HFA (PROVENTIL HFA, VENTOLIN HFA) 90 mcg/actuation inhaler Inhale 2 Puffs as instructed every 6 hours as needed. - famotidine (PEPCID) 40 mg tablet Take 1 tablet by mouth daily at bedtime. - hydroCHLOROthiazide 25 mg tablet Take 25 mg by mouth once daily. - rivaroxaban (XARELTO) 20 mg tablet Take 20 mg by mouth. - rosuvastatin (CRESTOR) 10 mg tablet Take 10 mg by mouth once daily. - aspirin 81 mg cap Take 81 mg by mouth once daily. - melatonin 5 mg tablet Take 1 tablet by mouth as needed for insomnia. - amLODIPine (NORVASC) 2.5 mg tablet Take 1 tablet by mouth once daily. - acetaminophen (TYLENOL) 325 mg tablet Take 650 mg by mouth once daily. - oxybutynin ER (DITROPAN XL) 10 mg 24 hr tablet Take 1 tablet by mouth once daily. - ergocalciferol 50,000 unit capsule (VITAMIN D2, DRISDOL) Take 1 capsule by mouth one time a week. - omeprazole (PRILOSEC) 40 mg capsule Take 1 capsule by mouth once daily. - multivitamin tablet Take 1 tablet by mouth once daily. Problem List As Of Date 08/13/2024 Noted Resolved GERD (gastroesophageal reflux disease) [K21.9] 06/23/2013 Weight gain [R63.5] 06/23/2013 Other and unspecified hyperlipidemia [E78.5] 11/20/2014 Obesity (BMI 30-39.9) [E66.9] 11/20/2014 Anxiety state, unspecified [F41.1] 11/20/2014 Tobacco use disorder [F17.200] 11/18/2019 Breast abscess [N61.1] 08/06/2020 History of breast abscess [Z87.2] 12/17/2020 Family history of breast cancer [Z80.3] 12/17/2020 Breast mass, left [N63.20] 12/06/2021 Nipple discharge [N64.52] 12/06/2021 Alcohol abuse, in remission [F10.11] 03/24/2022 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HCC) [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] 03/24/2022 Encounter Status:Closed by SUPRIYA GRAY on 08/13/24 [facility] Telephone Encounteron 2023 Barrel [employer] 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 Interface Message Text Patient has relocated to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 [Mass/Vol] 6.9 g/dL Normal 6.0-8.5 [facility] Comment on above: Order Comment: Speci men Type: BLOOD SPECIMEN Ordering Facility: [facility] Address: [address] [place] [address] Performed By: #### 2 4323-8, 13769-3, 0-3 #### [facility] CLIA [id number] [address] [place], [place] [address] [place] Sodium [Moles/Vol] 139 mmol/L Normal 136-145 [facility] Comment on above: Order Comment: Speci men Type: BLOOD SPECIMEN Ordering Facility: [facility] Address: [address] [place] [address] Performed By: #### 2 4323-8, 97175-4, 0-3 #### [facility] CLIA [id number] [address] [place], [place] [address] [place] Urea nitrogen [Mass/Vol] 14 mg/dL Normal 7-26 [facility] Comment on above: Order Comment: Speci men Type: BLOOD SPECIMEN Ordering Facility: [facility] Address: [address] [place] [address] Performed By: #### 2 4323-8, 72315-4, 0-3 #### [facility] CLIA [id number] [address] [place], [place] [address] [place] ECG COMPLETEon 04-23-2024 ECG COMPLETE Ventricular Rate : 1 19 BPM Atrial Rate : 119 BPM P-R Interval : 130 ms QRS Duration : 80 ms Q-T Interval : 330 ms QTC Calculation(Bazett) : 465 ms Calculated P Crucible : 73 degrees Calculated R Crucible : -56 degrees Calculated T Crucible : 40 degrees Sinus tachycardia with Premature atrial complexes Left axis deviation Poor anterior R-wave progression Abnormal ECG No previous ECGs available Reconfirmed by DEAN BOBBY, BHAVESH ([id number]) on 04/23/2024 11:34:12 PM NAME : VINOD ANN PID : [id number] : 1975 Gender : Female Race : ORD : [id number] Procedure Date : Apr 23 2024 15:36:51 Edit Date : Apr 23 2024 23:34:18 Diagnosis: Sinus tachycardia with Premature atrial complexes Left axis deviation Poor anterior R-wave progression Abnormal ECG No previous ECGs available Reconfirmed by BHAVESH MORAN MD ([id number]) on 04/23/2024 11:34:12 PM Test Reason : STAT Location : 0 : ED EDH28 Overread By : BHAVESH MOARN MD Edited By : BHAVESH MORAN MD Referred By : , Acquired by : [id number], [facility] ED PROV NOTEon 04-23-2024 ED PROV NOTE HNO ID: [id number] Author: MORENO BRADLEY MD Service: ? Author Type: Physician Type: ED Provider Notes Filed: 04/23/2024 19:52 Note Text: ED Provider Note Patient Name: Vinod Ann : 1975 SERVICE DATE: 04/23/24 History Patient presents with: Chest Pain: PT is staying at a drug rehab ([facility]). Pt states that she started to experience chest pain and believes it might have been her anxiety as it went away when she was in the squad. Pt takes a daily blood thinner and aspirin due to PAD and previous DVTs. Pt given an aspirin by squad as well. Patient comes in from [facility] drug rehab facility. She had felt her heart rate going up and some chest pain. She has a history anxiety and she is there for methamphetamine and other substance abuse. That included some alcohol and marijuana. She is on a blood thinner due to blood clots and is compliant with her Xarelto. She has not had blood clots on the Xarelto. She is taking all of her other medicines. She herself admits that it could be anxiety. She may have also gotten little dry with the heat but otherwise healthy. No known heart disease. No falls or trauma. Patient is nontoxic-appearing here. She does appear slightly anxious at bedside but again does have a history of substance abuse. Patient is nontoxic-appearing and resting comfortably. No tearing sensation to the back. She actually said it is much better than what it was earlier and did resolve in the department. 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 , did have small relapse 02/15 with of mother - Severe episode of recurrent major depressive disorder, without psychotic features ([facility]) Kendra Valerie - Suicidal ideation PAST SURGICAL HISTORY Procedure Laterality Date - ABDOMINAL SURGERY HX - BREAST SURGERY HX - BX OF BREAST; INCISIONAL Left 08/29/2019 Magan Sharpetal- Benign - COLONOSCOPY 09/22/2022 - COLONOSCOPY FLX DX W/COLLJ SPEC WHEN PFRMD 12/01/2019 Colonoscopy - PAST SURGICAL HISTORY OF 03/2010 gall bladder removed - PAST SURGICAL HISTORY OF Left wrist surgery when she was 15 years old - PAST SURGICAL HISTORY OF 2013 tubal ligation - PAST SURGICAL HISTORY OF 02/2022 bilateral cyst removed, pollock FAMILY HISTORY Problem Relation Age of Onset - Lung Cancer Mother at 63 - Osteoporosis Mother - Alcohol/Drug Mother alcohol - Hypertension Father - Alcohol/Drug Father alcohol - Aneurysm Father abdominal - Prostate Cancer Father - Alcohol/Drug Sister drugs - other (Aids) Sister drug user - Aneurysm Sister head - Breast Cancer Paternal Grandmother late 50's or 60's - Alcohol/Drug Niece - Ovarian cancer Niece diagnosed young Social History Tobacco Use - Smoking status: Every Day Packs/day: 2.00 Years: 29.00 Additional pack years: 0.00 Total pack years: 58.00 Types: Cigarettes - Smokeless tobacco: Never Vaping Use - Vaping Use: Former - Substances: Nicotine Substance and Sexual Activity - Alcohol use: Yes Comment: quit , small relapse in 02/15 with of mother. - Drug use: Not on file Comment: used last week - Sexual activity: Not on file ALLERGIES Allergen Reactions - Cephalexin Hives, Diarrhea - Fenofibrate Other: See Comments Hives with GI upset (emesis) - Zoloft [Sertraline * Hives, Diarrhea - Zyprexa [Olanzapine] Mental Status Change, Hives - Clindamycin Hives States has take since with no issue 08/06/20. Elba Broussard MA Review of Systems Constitutional: Negative for activity change, chills, diaphoresis and fever. HENT: Negative for congestion, facial swelling, sore throat and trouble swallowing. Eyes: Negative for photophobia, pain, discharge and visual disturbance. Respiratory: Positive for chest tightness. Negative for cough, shortness of breath and wheezing. Cardiovascular: Negative for chest pain, palpitations and leg swelling. Gastrointestinal: Negative for abdominal distention, abdominal pain, blood in stool, diarrhea, nausea and vomiting. Genitourinary: Negative for difficulty urinating, flank pain and frequency. Musculoskeletal: Negative for arthralgias, back pain, joint swelling, myalgias, neck pain and neck stiffness. Skin: Negative for color change and rash. Allergic/Immunologic: Negative for immunocompromised state. Neurological: Negative for dizziness, syncope, weakness and headaches. Hematological: Does not bruise/bleed easily. Psychiatric/Behavioral: Negative for behavioral problems, confusio (more content not included)... Normal [facility] HIGH SENSITIVITY TROPONIN Io n 04-23-2024 Tropinin I.cardiac panel High sensitivity method 7.5 pg/mL Normal 0.0-34.0 [facility] Comment on above: Order Comment: Speci men Type: BLOOD SPECIMEN Ordering Facility: [facility] Address: [address] [address] Result Comment: This assay uses different antibodies than our current assay, and assays, even by the same filters assembler may recognize different regions of the antibody and cannot be used interchangeably. Expect results of this assay to run higher than the previous assay. Performed By: #### H STROP #### [facility] CLIA [id number] [address] [place] [address] [place] Tropinin I.cardiac panel High sensitivity method 8.7 pg/mL Normal 0.0-34.0 [facility] Comment on above: Order Comment: Speci men Type: BLOOD SPECIMEN Ordering Facility: [facility] Address: [address] [place] [address] Result Comment: This assay uses different antibodies than our current assay, and assays, even by the same filters assembler may recognize different regions of the antibody and cannot be used interchangeably. Expect results of this assay to run higher than the previous assay. Performed By: #### H STROP #### [facility] CLIA [id number] [address] [place], [place] [address] [place] Lipase SerPl-cCncon 04-23-20 24 Lipase [Catalytic activity/Vol] 24 U/L Normal 12-60 [facility] Comment on above: Order Comment: Paul chinchilla Type: BLOOD SPECIMEN Ordering Facility: [facility] Address: [address] [address] Performed By: #### 2 4323-8, 64521-1, 3040-3 #### [facility] CLIA [id number] [address] [place], [place] [address] [place] Magnesium SerPl-mCncon 04-23 Magnesium [Mass/Vol] 1.9 mg/dL Normal 1.6-2.6 [facility] Comment on above: Order Comment: Paul chinchilla Type: BLOOD SPECIMEN Ordering Facility: [facility] Address: [address] [address] Performed By: #### 2 4323-8, 57004-4, 3040-3 #### [facility] CLIA [id number] [address] [place], [place] [id number] [place] XR CHEST 1V FRONTAL PORTon 0 04-23-2024 XR CHEST 1V FRONTAL PORT * * *Final Report* * * DATE OF EXAM: Apr 23 2024 4:05PM RHX [id number] - XR CHEST 1V FRONTAL PORT / PROCEDURE REASON: Tachycardia * * * * Physician Interpretation * * * * EXAMINATION: CHEST RADIOGRAPH (PORTABLE SINGLE VIEW AP) Exam Date/Time: 04/23/2024 4:05 PM CLINICAL HISTORY: Tachycardia MQ: XCPR_5 Comparison: 08/17/2023 RESULT: Lines, tubes, and devices: None. Lungs and pleura: No consolidation pleural effusion or pneumothorax pulmonary nodules or pulmonary edema Cardiomediastinal silhouette: Stable cardiomediastinal silhouette. Other: The osseous structures are unremarkable IMPRESSION: No acute cardiopulmonary disease Insulation Batting Machine Operator: MAGGI Transcribe Date/Time: Apr 23 2024 4:13P Dictated by : NICHOLAS SANDOVAL MD This examination was interpreted and the report reviewed and electronically signed by: NICHOLAS SANDOVAL MD on Apr 23 2024 4:14PM EST [id number] [facility] Yoni 04-16-2024 CNPN Telephone (GENSWS) ----- VINOD ANN ([id number]) 1975 F Date Time Provider Department 04/16/24 FRANCO ROBLERO GENSWS During your visit today, we recorded the following information about you: Jimena Alvarez MA 04/16/2024 10:15 AM Signed Patient called in with slurred speech and difficult to understand. States she needs to have a breast biopsy. She is currently homeless and doing drugs. She reports that she is going to [facility] treatment [facility] tomorrow for rehab in [place]. She is asking what can be done about the breast biopsy while she is in treatment? She wonders if she will be able to be released to come in for treatment. She is asking if someone from the office can contact [facility] and explain the situation to see how to coordinate care for her while she is in the treatment facility. [phone] Leonidas Nunez LPN 04/16/2024 11:39 AM Signed Spoke to patient, verified name and date of . Advised patient due to her not being admitted to rehab facility yet, nurse cannot call and give information. Advised patient once admitted to facility, patient can initiate the process by finding out the policy for appointments. Advised patient if she needs documentation or rehab staff would like to talk to [facility] staff, we can assist that. Patient currently has no breast biopsy scheduled. Breast biopsy is tentative after testing is done. Patient verbalized understand. Leonidas Nunez LPN April 16, 2024 11:36 AM Allergies As of Date: 04/16/2024 Noted Allergy Reaction CEPHALEXIN 02/26/2018 4 - Hives 6 - Diarrhea FENOFIBRATE 08/31/2019 14 - Other: See Comments Comments: Hives with GI upset (emesis) ZOLOFT (SERTRALINE HCL) 06/23/2013 4 - Hives 6 - Diarrhea ZYPREXA (OLANZAPINE) 04/04/2024 1 - Mental Status Change 4 - Hives CLINDAMYCIN 09/29/2019 4 - Hives Comments: States has take since with no issue 08/06/20. Elba Broussard MA Date Reviewed: 04/04/2024 Reviewed by: Franco Roblero MD - Fully Assessed Reason for Visit: Patient Update [1234] Prescriptions as of 04/16/2024 - ciprofloxacin HCl (CIPRO) 500 mg tablet Take 1 tablet by mouth two times a day for 7 days. - hydroCHLOROthiazide 25 mg tablet Take 25 mg by mouth once daily. - rivaroxaban (XARELTO) 20 mg tablet Take 20 mg by mouth. - rosuvastatin (CRESTOR) 10 mg tablet Take 10 mg by mouth once daily. - aspirin 81 mg cap Take 81 mg by mouth once daily. - melatonin 5 mg tablet Take 1 tablet by mouth as needed for insomnia. - amLODIPine (NORVASC) 2.5 mg tablet Take 1 tablet by mouth once daily. - famotidine (PEPCID) 20 mg tablet Take 1 tablet by mouth at bedtime as needed. - acetaminophen (TYLENOL) 325 mg tablet Take 650 mg by mouth once daily. - oxybutynin ER (DITROPAN XL) 10 mg 24 hr tablet Take 1 tablet by mouth once daily. - ergocalciferol 50,000 unit capsule (VITAMIN D2, DRISDOL) Take 1 capsule by mouth one time a week. - omeprazole (PRILOSEC) 40 mg capsule Take 1 capsule by mouth once daily. - multivitamin tablet Take 1 tablet by mouth once daily. Problem List As Of Date 04/16/2024 Noted Resolved GERD (gastroesophageal reflux disease) [K21.9] 06/23/2013 Weight gain [R63.5] 06/23/2013 Other and unspecified hyperlipidemia [E78.5] 11/20/2014 Obesity (BMI 30-39.9) [E66.9] 11/20/2014 Anxiety state, unspecified [F41.1] 11/20/2014 Tobacco use disorder [F17.200] 11/18/2019 Breast abscess [N61.1] 08/06/2020 History of breast abscess [Z87.2] 12/17/2020 Family history of breast cancer [Z80.3] 12/17/2020 Breast mass, left [N63.20] 12/06/2021 Nipple discharge [N64.52] 12/06/2021 Alcohol abuse, in remission [F10.11] 03/24/2022 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HCC) [F19.11] 03/24/2022 Encounter Status:Closed by LEONIDAS [facility]UNEZ [email or web address] ----- VINOD ANN ([id number]) 1975 F Date Time Provider Department 04/16/24 FRANCO ROBLERO GENME[facility]AS During your visit today, we recorded the following information about you: Heaven Andino 04/16/2024 11:[address] Roblero patient to have left ultrasound guided breast + left axilla biopsy. Orders are in the chart Per protocol email sent to Melanie to have radiologist review and call patient to schedule accordingly Per patient aware of steps needed to be done and will be called to scheduled Patient aware to reach back out to office once procedures are scheduled to set an appointment up with Dr. Watson to go over results. 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 Calling to schedule guided biopsy and asking for us to call her counselor Heaven Livingston at [phone] to arrange this appointment Verona Kingsley 05/12/2024 1:17 PM Signed Patient also states she has an infection at this time. Heaven Andino 05/12/2024 3:17 PM Signed Reached out to Melanie at the breast center in regards to patient and contact information for scheduling. Heaven Andino Continuous [employer] Supervisor Allergies As of Date: 04/16/2024 Noted Allergy Reaction CEPHALEXIN 02/26/2018 4 - Hives 6 - Diarrhea FENOFIBRATE 08/31/2019 14 - Other: See Comments Comments: Hives with GI upset (emesis) ZOLOFT (SERTRALINE HCL) 06/23/2013 4 - Hives 6 - Diarrhea ZYPREXA (OLANZAPINE) 04/04/2024 1 - Mental Status Change 4 - Hives CLINDAMYCIN 09/29/2019 4 - Hives Comments: States has take since with no issue 08/06/20. Elba Broussard MA Date Reviewed: 04/04/2024 Reviewed by: Franco Roblero MD - Fully Assessed Reason for Visit: Appointment [186] Patient Update [1234] Prescriptions as of 05/12/2024 - hydroCHLOROthiazide 25 mg tablet Take 25 mg by mouth once daily. - rivaroxaban (XARELTO) 20 mg tablet Take 20 mg by mouth. - rosuvastatin (CRESTOR) 10 mg tablet Take 10 mg by mouth once daily. - aspirin 81 mg cap Take 81 mg by mouth once daily. - melatonin 5 mg tablet Take 1 tablet by mouth as needed for insomnia. - amLODIPine (NORVASC) 2.5 mg tablet Take 1 tablet by mouth once daily. - famotidine (PEPCID) 20 mg tablet Take 1 tablet by mouth at bedtime as needed. - acetaminophen (TYLENOL) 325 mg tablet Take 650 mg by mouth once daily. - oxybutynin ER (DITROPAN XL) 10 mg 24 hr tablet Take 1 tablet by mouth once daily. - ergocalciferol 50,000 unit capsule (VITAMIN D2, DRISDOL) Take 1 capsule by mouth one time a week. - omeprazole (PRILOSEC) 40 mg capsule Take 1 capsule by mouth once daily. - multivitamin tablet Take 1 tablet by mouth once daily. Problem List As Of Date 04/16/2024 Noted Resolved GERD (gastroesophageal reflux disease) [K21.9] 06/23/2013 Weight gain [R63.5] 06/23/2013 Other and unspecified hyperlipidemia [E78.5] 11/20/2014 Obesity (BMI 30-39.9) [E66.9] 11/20/2014 Anxiety state, unspecified [F41.1] 11/20/2014 Tobacco use disorder [F17.200] 11/18/2019 Breast abscess [N61.1] 08/06/2020 History of breast abscess [Z87.2] 12/17/2020 Family history of breast cancer [Z80.3] 12/17/2020 Breast mass, left [N63.20] 12/06/2021 Nipple discharge [N64.52] 12/06/2021 Alcohol abuse, in remission [F10.11] 03/24/2022 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HCC) [F19.11] 03/24/2022 Encounter Status:Closed by HEAVEN ANDINO on 04/16/24 [facility] 04-10-2024 CNPN Telephone (GENSWS) ----- VINOD ANN ([id number]) 1975 F Date Time Provider Department 04/10/24 [facility] During your visit today, we recorded the following information about you: Mohinder Santiago RN 04/10/2024 11:14 AM Signed Requested patients previous breast bx from [facility] AND [facility]. Path reports AND op reports. Allergies As of Date: 04/10/2024 Noted Allergy Reaction CEPHALEXIN 02/26/2018 4 - Hives 6 - Diarrhea FENOFIBRATE 08/31/2019 14 - Other: See Comments Comments: Hives with GI upset (emesis) ZOLOFT (SERTRALINE HCL) 06/23/2013 4 - Hives 6 - Diarrhea ZYPREXA (OLANZAPINE) 04/04/2024 1 - Mental Status Change 4 - Hives CLINDAMYCIN 09/29/2019 4 - Hives Comments: States has take since with no issue 08/06/20. Elba Broussard MA Date Reviewed: 04/04/2024 Reviewed by: Franco Roblero MD - Fully Assessed Reason for Visit: Request Outside Medical Records [[id number]] Prescriptions as of 04/24/2024 - hydroCHLOROthiazide 25 mg tablet Take 25 mg by mouth once daily. - rivaroxaban (XARELTO) 20 mg tablet Take 20 mg by mouth. - rosuvastatin (CRESTOR) 10 mg tablet Take 10 mg by mouth once daily. - aspirin 81 mg cap Take 81 mg by mouth once daily. - melatonin 5 mg tablet Take 1 tablet by mouth as needed for insomnia. - amLODIPine (NORVASC) 2.5 mg tablet Take 1 tablet by mouth once daily. - famotidine (PEPCID) 20 mg tablet Take 1 tablet by mouth at bedtime as needed. - acetaminophen (TYLENOL) 325 mg tablet Take 650 mg by mouth once daily. - oxybutynin ER (DITROPAN XL) 10 mg 24 hr tablet Take 1 tablet by mouth once daily. - ergocalciferol 50,000 unit capsule (VITAMIN D2, DRISDOL) Take 1 capsule by mouth one time a week. - omeprazole (PRILOSEC) 40 mg capsule Take 1 capsule by mouth once daily. - multivitamin tablet Take 1 tablet by mouth once daily. Problem List As Of Date 04/10/2024 Noted Resolved GERD (gastroesophageal reflux disease) [K21.9] 06/23/2013 Weight gain [R63.5] 06/23/2013 Other and unspecified hyperlipidemia [E78.5] 11/20/2014 Obesity (BMI 30-39.9) [E66.9] 11/20/2014 Anxiety state, unspecified [F41.1] 11/20/2014 Tobacco use disorder [F17.200] 11/18/2019 Breast abscess [N61.1] 08/06/2020 History of breast abscess [Z87.2] 12/17/2020 Family history of breast cancer [Z80.3] 12/17/2020 Breast mass, left [N63.20] 12/06/2021 Nipple discharge [N64.52] 12/06/2021 Alcohol abuse, in remission [F10.11] 03/24/2022 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HCC) [F19.11] 03/24/2022 Encounter Status:Closed by MOHINDER SANTIAGO on 04/24/24 [facility] Yoni 04-08-2024 CNPN Telephone (GENSWS) ----- VINOD ANN ([id number]) 1975 F Date Time Provider Department 04/08/24 FRANCO ROBLERO During your visit today, we recorded the following information about you: Leslee Fuentes 04/08/2024 3:39 PM Signed Patient called requesting antibiotic due to abscess on breast being infected? Patient was seen with Osbaldo on 04/01 she states that Osbaldo knows all about it but needs Rx Can be reached at [phone] Please advise Leonidas Nunez LPN 04/10/2024 8:22 AM Signed Contacted patient, advised about antibiotic being called in to pharmacy. Faxed [facility] for medical records. Leonidas Nunez LPN April 10, 2024 8:17 AM Allergies As of Date: 04/08/2024 Noted Allergy Reaction CEPHALEXIN 02/26/2018 4 - Hives 6 - Diarrhea FENOFIBRATE 08/31/2019 14 - Other: See Comments Comments: Hives with GI upset (emesis) ZOLOFT (SERTRALINE HCL) 06/23/2013 4 - Hives 6 - Diarrhea ZYPREXA (OLANZAPINE) 04/04/2024 1 - Mental Status Change 4 - Hives CLINDAMYCIN 09/29/2019 4 - Hives Comments: States has take since with no issue 08/06/20. Elba Broussard MA Date Reviewed: 04/04/2024 Reviewed by: Franco Roblero MD - Fully Assessed Reason for Visit: Patient Question [2657] Cmt: Requesting antibiotic Prescriptions as of 04/10/2024 - ciprofloxacin HCl (CIPRO) 500 mg tablet Take 1 tablet by mouth two times a day for 7 days. - hydroCHLOROthiazide 25 mg tablet Take 25 mg by mouth once daily. - rivaroxaban (XARELTO) 20 mg tablet Take 20 mg by mouth. - rosuvastatin (CRESTOR) 10 mg tablet Take 10 mg by mouth once daily. - aspirin 81 mg cap Take 81 mg by mouth once daily. - melatonin 5 mg tablet Take 1 tablet by mouth as needed for insomnia. - amLODIPine (NORVASC) 2.5 mg tablet Take 1 tablet by mouth once daily. - famotidine (PEPCID) 20 mg tablet Take 1 tablet by mouth at bedtime as needed. - acetaminophen (TYLENOL) 325 mg tablet Take 650 mg by mouth once daily. - oxybutynin ER (DITROPAN XL) 10 mg 24 hr tablet Take 1 tablet by mouth once daily. - ergocalciferol 50,000 unit capsule (VITAMIN D2, DRISDOL) Take 1 capsule by mouth one time a week. - omeprazole (PRILOSEC) 40 mg capsule Take 1 capsule by mouth once daily. - multivitamin tablet Take 1 tablet by mouth once daily. Problem List As Of Date 04/08/2024 Noted Resolved GERD (gastroesophageal reflux disease) [K21.9] 06/23/2013 Weight gain [R63.5] 06/23/2013 Other and unspecified hyperlipidemia [E78.5] 11/20/2014 Obesity (BMI 30-39.9) [E66.9] 11/20/2014 Anxiety state, unspecified [F41.1] 11/20/2014 Tobacco use disorder [F17.200] 11/18/2019 Breast abscess [N61.1] 08/06/2020 History of breast abscess [Z87.2] 12/17/2020 Family history of breast cancer [Z80.3] 12/17/2020 Breast mass, left [N63.20] 12/06/2021 Nipple discharge [N64.52] 12/06/2021 Alcohol abuse, in remission [F10.11] 03/24/2022 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HCC) [F19.11] 03/24/2022 Encounter Status:Closed by LEONIDAS NUNEZ on 04/10/24 [facility] 04-04-2024 CNOV Office Visit (GENSWS ) ----- VINOD ANN ([id number]) 1975 F Date Time Provider Department 04/04/24 8:30 AM FRANCO ROBLEROS During your visit today, we recorded the following information about you: Temperature Pulse Blood pressure Weight 97.1 degrees 116/minute 136/78 100.9 kg Height 1.651 m Leonidas Nunez LPN 04/04/2024 8:51 AM Signed REVIEW OF SYSTEMS: General: The patient denies fatigue, denies weight loss, denies weight gain, denies feeling hot, and denies feelings of cold. Eyes: The patient denies glaucoma, denies eye injury/surgery, does not wear glasses or contacts. Ear/Nose/Throat: The patient NOTES allergies, denies hayfever, denies ear infections, and denies bloody noses. Cardiovascular: The patient denies chest pain, denies heart disease, NOTES high blood pressure,denies cardiac stent, denies prior heart attack, denies irregular heart beat, NOTES high cholesterol, denies poor circulation, denies heart failure, other cardiac issues, denies claudication, denies cold feet, denies peripheral arterial stent. Respiratory: The patient denies tuberculosis, denies pneumonia, NOTES frequent cough, denies pulmonary embolism, NOTES shortness of breath, and denies coughing up blood. Gastrointestinal: The patient denies difficulty swallowing, NOTES acid reflux, denies ulcers, denies vomiting, denies jaundice/hepatitis, denies gallbladder problems, denies black or tarry stools, denies hemorrhoids, denies bleeding from rectum, denies diverticulitis, denies constipation, denies diarrhea, denies loss of stool control, and denies hernias. Kidney/Bladder: The patient denies kidney stones, denies urine infections, and denies bloody urine. Skin: The patient denies a history of skin cancer, denies bleeding/changing moles, and denies a history of skin rash. Neurologic: The patient denies a history of epilepsy/convulsions, denies headaches, denies head/spinal injuries, and denies stroke/TIA. Psychiatric: The patient NOTES psychiatric medications, NOTES depression, and denies voices, denies substance abuse. Endocrine: The patient denies thyroid disorders, denies diabetes, and denies hormonal problems. Hematologic: The patient denies a history of bruising, denies bleeding, and denies anemia, denies blood clots. Infections: The patient denies a history of measles and mumps, denies rheumatic fever, and denies sexually transmitted diseases. Musculoskeletal: The patient denies back pain/injury, denies back problems, denies sciatica, denies knee/foot trouble, denies arthritis, or denies gout. When was patient's last Mammogram screening? 2023 Last Colonoscopy: 2021 ZULEMA Morton Richard T, MD 04/10/2024 7:21 AM Signed HISTORY AND PHYSICAL - BREAST COMPLAINT Vinod Ann 1975 REFERRING PHYSICIAN: Isatu Nieto MD CHIEF COMPLAINT: left breast infected mass with drainage suspicious for malignancy HPI: The patient is a 49 year old female with a complaint of a palpable breast mass. The patient notes a mass in the retroaerolar portion to slightly medial area of her left breast. The patient has noticed this mass for a long time. The patient had a mammogram and ultrasound obtained the [facility] hospital system on February 21, 2024 which demonstrated: IMPRESSION: Finding 1 Masses in both breasts are benign. Finding 2 Irregular mass in the left breast at 9 o'clock, 2 cm from the nipple is suspicious. It extends into the nipple. An ultrasound guided biopsy is recommended. Finding 3 Abnormal lymph node in the left axilla is suspicious. An ultrasound guided biopsy is recommended. I discussed the findings and results with the patient over the phone at the time of the interpretation. The Breast Center Navigator will consult with the patient regarding the recommendations including Breast Clinic referral recommendation. An Epic message with the recommendations of Breast Surgery Clinic referral and breast biopsy will be submitted by the Breast Center Navigator to Makayla Morley on 02/21/2024 at the time of interpretation. The Breast Center Navigator will schedule the appropriate appointments for the patient. Finding 4 Area of skin thickening in the right breast at 3 o'clock, 2 cm from the nipple is benign. BI-RADS Category 4: Suspicious I had last see this patient on August 16, 2023. At that time I noted: The patient is a 48 year old female with a complaint of nonhealing wound and discharge from her left nipple. The patient has a longstanding history of breast abscesses nipple discharge and infections. She has had multiple incision and drainage procedures of the left periareolar area. Most of these were performed at [facility] in [facility]. The patient is also seen Dr. Watson in the past. He advised against additional drainages when he saw the p (more content not included)... Normal [facility] Venous Duplex US - Rm [facility] 04-04-2024 Venous Duplex US - Rm [facility] [address] [place] [address] Venous Duplex US - Rm Extrem 04/04/24 1421 MR#: [id number] Acct: [id number] Name: VINOD ANN Rep #: [id number] : 1975 49 From: Moi Landis MD Attending Dr: LASHAE RODRIGUES Status: REG CLI Ordering Dr: LASHAE RODRIGUES Date: 04/04/24 Location: [facility] Sex: F C Admitted: Reason For Study: SWELLING RIGHT LEFT GSV is normal. GSV is normal. CFV is compressible, spontaneous, phasic, CFV is compressible, spontaneous, phasic, competent and demonstrates normal competent, and demonstrates normal augmentation. augmentation. FV is compressible, spontaneous, phasic, FV is compressible, spontaneous, phasic, competent and demonstrates normal competent and demonstrates normal augmentation. augmentation. POP V is compressible, spontaneous, phasic, POP V is compressible, spontaneous, phasic, competent and demonstrates normal competent and demonstrates normal augmentation. augmentation. T/P Trunk is compressible. T/P Trunk is compressible. PTV is compressible. PTV is compressible. RT PerV is compressible. LT PerV is compressible. Procedure This is a venous duplex using B-mode, color flow and spectral Doppler. Exam performed in department. The exam was diagnostic. A preliminary report was called and/or faxed to Lashae Rodrigues @ [phone]. VL/Venous Duplex US - Rm Extrem Interpretation Summary Deep veins of the bilateral lower extremities are patent and compressible segmentally. There is no evidence of bilateral lower extremity deep vein thrombosis. The bilateral great saphenous veins appear patent and compressible segmentally. ___ Ordering Physician: LASHAE RODRIGUES Referring Physician: Isatu Nieto Performed By: Iqra Thompson, CHERELLE, RVT 04/06/24 1132 Date Moi Landis MD CC: LASHAE RODRIGUES; Dr. Isatu Nieto MD Date Dictated: 04/04/24 1421 Date Transcribed: 04/06/24 1132 Insulation Batting Machine Operator: Signed Normal [facility] MR/BMSHeike 03-25-2024 [facility] [address] [place] [address]. [address] [place] [address] OFFICE VISIT Date of Service: 03/25/24 MR#: [id number] Acct: [id number] Name: VINOD ANN Rep #: [id number] : 1975 Provider: MEMO Wright Age/Sex: 49/F Location: [facility] Status: Signed Intake Vital Signs 05/13/23 18:49 03/25/24 09:59 Height 5 ft 6 in Weight: 225 lb BP 102/66 Blood Pressure Location Lt brachial Position Sitting Respiration 16 Pulse 98 Pulse Source Monitor Temp 98.2 F Temp Source Temporal Pulse Oximetry (%) 96 Oxygen Delivery Method room air Intake Visit Reasons: CONSULT-PAD Chief Complaint: establish care Is patient in pain?: Yes Allergies fenofibrate Allergy (Severe, Verified 03/25/24 10:02) Hives clindamycin Allergy (Intermediate, Verified 03/25/24 10:02) Hives cephalexin Allergy (Verified 03/25/24 10:02) Hives olanzapine Allergy (Verified 03/25/24 10:22) Hives sertraline HCl (From Zoloft) Allergy (Verified 03/21/23 12:37) Hives Medications ???Medication ???Instructions ???Recorded ???Confirmed ???Type multivitamin,nh-beac-zbth rals 1 tab PO DAILY 07/02/19 03/25/24 History (Complete Multivitamin tablet) fluticasone propionate 50 1 spray intranasal DAILY #16 grams 01/15/23 03/25/24 Rx mcg/actuation nasal spray,suspension (Flonase Allergy Relief) acetaminophen 500 mg tablet mg PO 03/19/24 03/25/24 History albuterol sulfate 90 mcg/actuation 2 puff inhalation Q4H PRN 03/19/24 03/25/24 History aerosol inhaler amlodipine 5 mg tablet 5 mg PO QDAY 03/19/24 03/25/24 History aspirin 81 mg tablet,delayed 81 mg PO QDAY 03/19/24 03/25/24 History release cholecalciferol (vitamin D3) 1,250 PO 03/19/24 03/25/24 History mcg (50,000 unit) capsule cilostazol 100 mg tablet 100 mg PO BID 03/19/24 03/25/24 History clonidine HCl 0.1 mg tablet 0.1 mg PO QHS 03/19/24 03/25/24 History gabapentin 100 mg capsule 200 mg PO QHS 03/19/24 03/25/24 History hydrochlorothiazide 25 mg tablet 25 mg PO QDAY 03/19/24 03/25/24 History omeprazole 20 mg capsule,delayed 20 mg PO QDAY 03/19/24 03/25/24 History release oxybutynin chloride 15 mg 15 mg PO QDAY 03/19/24 03/25/24 History tablet,extended release 24 hr rivaroxaban 20 mg tablet (Xarelto) 20 mg PO QDAY 03/19/24 03/25/24 History rosuvastatin 10 mg tablet 10 mg PO QHS 03/19/24 03/25/24 History aripiprazole 15 mg tablet 20 mg PO QDAY 03/25/24 03/25/24 History [facility] Medical History (Updated 03/26/24 @ 16:46 by MEMO Wright) Blue toe syndrome Hypertension Substance abuse Methamphetamine use disorder, moderate Alcohol use disorder PTSD (post-traumatic stress disorder) Generalized anxiety disorder Bipolar 1 disorder, mixed Suicide attempt Carbamazepine overdose of undetermined intent Panic attacks Depression Nicotine abuse Chest pain Shortness of breath Intermittent palpitations Dizziness Lung nodule Moderate dysplasia of cervix (DARRELL II) Surgical History History of left breast biopsy ( 08/2019) H/O LEEP History of cholecystectomy Family History Father Hypertension Colon cancer Mother Lung cancer Grandmother Breast cancer Social History household members: none Smoking Status: Heavy Smoker (>10/day) alcohol intake: current alcohol intake frequency: a few times a week substance use type: amphetamines HPI HPI HPI: VINOD ANN, is a 49 F who presents to the office today for evaluation of PAD. In November, she had acute onset of R foot rest pain and discoloration in her R 1st and 5th toes which progressed to dry gangrene. At one point, she was hospitalized at [facility] in [place]. Report for CTA with runoff from Dec was obtained from [facility] which reported thrombus in the R ANABEL and partial embolus in the R peroneal artery and a filling defect within the L popliteal artery extending into the TP trunk with normal runoff into the foot. Otherwise, no significant areas of stenosis were identified. Images are not available in our system for review. She also had LEAS with R SAVANNA 0.89 with biphasic doppler signals and reportedly normal L SAVANNA and doppler signals (L SAVANNA value not provided in the report scanned in). She also had venous duplex which was negative for any DVT. She reports she was sent home from the hospital with a heart monitor but never heard the results. She has an echo scheduled in the next week. She is scheduled to see cardiology next month. She does admit to racing heart and palpitations but no diagnosed arrhythmias per her report. She was started on Xarelto 20mg daily during this hospital adm (more content not included)... Normal [facility] Telephone Encounteron 2023 Barrel Rib 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 Interface Message Text Voicemail message received from patient's [facility] PCP - Dr. Makayla Morley. Return call made to Dr. Morley. Dr. Morley identified patient by name, date of , and [facility] MRN. Dr. Morley is questioning if the recommendations for the biopsy had been discussed with patient by the radiologist or any other medical staff; explaining that she has not received or has access to the documentation supporting this patient education. After confirming that Dr. Morley is ordering provider for patient's breast imaging, the process for patient education was explained, and the diagnostic imaging report was faxed to her at number provided - [phone]. Belinda WESTFALL, LINTING MACHINE OPERATOR, PhD [facility] - Radiology Nurse Navigator/Secretary Of State Normal [facility] Progress Noteson 03-18-2024 Barrel Rib 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 Interface Message Text F/U NEON (R) foot pain Evaluated in [place] with CTA Has not gotten testing as requested-nor scheduled it. Normal [facility] Tele[facility] Encounteron 2023 Barrel Rib 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 Interface Message Text Voicemail message received from patient, requesting return call. 1st attempt to reach patient via telephone. Patient answered call, ID'd by name and . Explained purpose of call. Patient explains that she has moved back home to [place], [place], and she plans to transfer all medical care to her providers there. Patient informed that she must provide Authorization to Release her medical records or have her new providers request records through the Medical Records request process. Patient states that she will go to [facility] and follow the process to have them request her records. Patient request to cancel next's weeks appts at [facility] - Appts on March 06, March 07, and March 11. Patient advised that she has more appts in the weeks to come, and she should make arrangements to have those canceled as well. Patient agreed. Belinda WESTFALL, LINTING MACHINE OPERATOR, PhD [facility] - Radiology Nurse Navigator/Secretary Of State Normal [facility] Telephone Encounteron 2023 Barrel Rib 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 Interface Message Text Called 330 number listed as preferred, no answer, lm on to call the office at [phone]. Unable to reach pt x 2 by phone. Letter sent. Normal [facility] Telephone Encounteron 2023 Barrel Rib 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 Interface Message Text Call made to patient to discuss outcome of the CT scan that was scheduled at [facility], and inquire if she intended to schedule vascular studies here at [facility]. 1st attempt to reach patient via telephone. No answer, left requesting a call back. Belinda Florez RN [facility], VIVIANE, PhD [facility] - Radiology Nurse Navigator/Secretary Of State Normal The [facility] DBT Breast - bilateral diagn osticon 02-21-2024 Radiology Study observation (narrative) [facility] MG MAMMO DIAG BILAT REMEDIOS W/C coin teller 02-21-2024 MG MAMMO DIAG BILAT REMEDIOS W/CAD EXAM: BILATERAL DIAGNOSTIC MAMMOGRAM W/TOMOSYNTHESIS AND CAD, Bilateral US BREAST/AXILLA BILATERAL CLINICAL HISTORY: Patient is 49 years old and is seen for diagnostic evaluation of follow up from a previous breast imaging study in both breasts. The patient has a history of bilateral cyst aspiration at age 46 - benign. The patient has no personal history of cancer. The patient has no family history of breast cancer. COMPARISON: The present examination has been compared to prior imaging studies performed at [facility] on 12/17/2020 and 01/03/2022. TECHNIQUE: The following mammographic views were obtained: bilateral CC, CC with tomosynthesis, MLO and MLO with tomosynthesis. Computer-aided detection was utilized by the radiologist in the interpretation of this examination. Handheld real-time ultrasound study was done by registered technologist with images submitted for review and dictation. Examination was done in a directed fashion of the site(s) of interest. MAMMOGRAM FINDINGS: The breasts are almost entirely fat. Finding 1 There are multiple bilateral circumscribed masses which is typically a benign pattern. Finding 2 There is an irregular mass with spiculated margins and associated skin retraction and nipple retraction in the left breast at 9 o'clock, 2 cm from the nipple. Mass correlates to the area of patient concern in the left breast at 9 o'clock, 2 cm from the nipple. Finding 4 There is no radiographic abnormality in the region of the area of patient concern in the right breast at 3 o'clock, 2 cm from the nipple. ULTRASOUND FINDINGS: Finding 2 Ultrasound demonstrates a non-parallel hypoechoic vascular irregular mass with spiculated margins measuring 1.3 x 0.9 x 1.1 cm in the left breast at 9 o'clock, 2 cm from the nipple. It extends into the nipple and has robust vascularity. The remainder of the ipsilateral breast is unremarkable. Finding 3 There is an abnormal lymph node measuring 1 x 0.6 x 0.7 cm in the left axilla labeled 2. It has complete hilar effacement. There is one other smaller abnormal level 1 node with hilar effacement labeled 1. No other nodes are visualized. Finding 4 There is an area of focal skin thickening in the right breast at 3 o'clock, 2 cm from the nipple. Finding correlates to the area of scarring and patient concern in the right breast at 3 o'clock, 2 cm from the nipple. IMPRESSION: Finding 1 Masses in both breasts are benign. Finding 2 Irregular mass in the left breast at 9 o'clock, 2 cm from the nipple is suspicious. It extends into the nipple. An ultrasound guided biopsy is recommended. Finding 3 Abnormal lymph node in the left axilla is suspicious. An ultrasound guided biopsy is recommended. I discussed the findings and results with the patient over the phone at the time of the interpretation. The Breast Center Navigator will consult with the patient regarding the recommendations including Breast Clinic referral recommendation. An Epic message with the recommendations of Breast Surgery Clinic referral and breast biopsy will be submitted by the Breast Center Navigator to Makayla Morley on 02/21/2024 at the time of interpretation. The Breast Center Navigator will schedule the appropriate appointments for the patient. Finding 4 Area of skin thickening in the right breast at 3 o'clock, 2 cm from the nipple is benign. BI-RADS Category 4: Suspicious RISK ASSESSMENT: Estimated lifetime breast cancer risk: Average (less than 15%, as per the Tyrer-Cuzick/NOAH model) NCI Lifetime Risk Score: 10.8% Normal [facility] No Panel InformationOrdered By: Mita Morrell on 02-21-2024 BI-RADS Category 4: Suspicious [employer] Work Phone: Breast Density The breasts are almo st entirely fat. [employer] Work Phone: Estimated lifetime Breast Cancer risk Average (less than 15%, as per the Tyrer-Cuzick/NOAH model) [employer] Work Phone: [employer] Work Phone: No Panel Informationon 02-20 EXAM: BILATERAL DIAGNOSTIC MAMMOGRAM W/TOMOSYNTHESIS AND CAD, Bilateral US BREAST/AXILLA BILATERAL CLINICAL HISTORY: Patient is 49 years old and is seen for diagnostic evaluation of follow up from a previous breast imaging study in both breasts. The patient has a history of bilateral cyst aspiration at age 46 - benign. The patient has no personal history of cancer. The patient has no family history of breast cancer. COMPARISON: The present examination has been compared to prior imaging studies performed at [facility] on 12/17/2020 and 01/03/2022. TECHNIQUE: The following mammographic views were obtained: bilateral CC, CC with tomosynthesis, MLO and MLO with tomosynthesis. Computer-aided detection was utilized by the radiologist in the interpretation of this examination. Handheld real-time ultrasound study was done by registered technologist with images submitted for review and dictation. Examination was done in a directed fashion of the site(s) of interest. MAMMOGRAM FINDINGS: The breasts are almost entirely fat. Finding 1 There are multiple bilateral circumscribed masses which is typically a benign pattern. Finding 2 There is an irregular mass with spiculated margins and associated skin retraction and nipple retraction in the left breast at 9 o'clock, 2 cm from the nipple. Mass correlates to the area of patient concern in the left breast at 9 o'clock, 2 cm from the nipple. Finding 4 There is no radiographic abnormality in the region of the area of patient concern in the right breast at 3 o'clock, 2 cm from the nipple. ULTRASOUND FINDINGS: Finding 2 Ultrasound demonstrates a non-parallel hypoechoic vascular irregular mass with spiculated margins measuring 1.3 x 0.9 x 1.1 cm in the left breast at 9 o'clock, 2 cm from the nipple. It extends into the nipple and has robust vascularity. The remainder of the ipsilateral breast is unremarkable. Finding 3 There is an abnormal lymph node measuring 1 x 0.6 x 0.7 cm in the left axilla labeled 2. It has complete hilar effacement. There is one other smaller abnormal level 1 node with hilar effacement labeled 1. No other nodes are visualized. Finding 4 There is an area of focal skin thickening in the right breast at 3 o'clock, 2 cm from the nipple. Finding correlates to the area of scarring and patient concern in the right breast at 3 o'clock, 2 cm from the nipple. IMPRESSION: Finding 1 Masses in both breasts are benign. Finding 2 Irregular mass in the left breast at 9 o'clock, 2 cm from the nipple is suspicious. It extends into the nipple. An ultrasound guided biopsy is recommended. Finding 3 Abnormal lymph node in the left axilla is suspicious. An ultrasound guided biopsy is recommended. I discussed the findings and results with the patient over the phone at the time of the interpretation. The Breast Center Navigator will consult with the patient regarding the recommendations including Breast Clinic referral recommendation. An Epic message with the recommendations of Breast Surgery Clinic referral and breast biopsy will be submitted by the Breast Center Navigator to Makayla Morley on 02/21/2024 at the time of interpretation. The Breast Center Navigator will schedule the appropriate appointments for the patient. Finding 4 Area of skin thickening in the right breast at 3 o'clock, 2 cm from the nipple is benign. BI-RADS Category 4: Suspicious RISK ASSESSMENT: Estimated lifetime breast cancer risk: Average (less than 15%, as per the Tyrer-Cuzick/NOAH model) NCI Lifetime Risk Score: 10.8% RADIOLOGY Mita Morrell MD - 02/21/2024 EXAM: BILATERAL DIAGNOSTIC MAMMOGRAM W/TOMOSYNTHESIS AND CAD, Bilateral US BREAST/AXILLA BILATERAL CLINICAL HISTORY: Patient is 49 years old and is seen for diagnostic evaluation of follow up from a previous breast imaging study in both breasts. The patient has a history of bilateral cyst aspiration at age 46 - benign. The patient has no personal history of cancer. The patient has no family history of breast cancer. COMPARISON: The present examination has been compared to prior imaging studies performed at [facility] on 12/17/2020 and 01/03/2022. TECHNIQUE: The following mammographic views were obtained: bilateral CC, CC with tomosynthesis, MLO and MLO with tomosynthesis. Computer-aided detection was utilized by the radiologist in the interpretation of this examination. Handheld real-time ultrasound study was done by registered technologist with images submitted for review and dictation. Examination was done in a directed fashion of the site(s) of interest. MAMMOGRAM FINDINGS: The breasts are almost entirely fat. Finding 1 There are multiple bilateral circumscribed masses which is typically a benign pattern. Finding 2 There is an irregular mass with spiculated margins and associated skin retraction and nipple retraction in the left breast at 9 o'clock, 2 cm from the nipple. Mass correlates to the area of patient concern in the left breast at 9 o'clock, 2 cm from the nipple. Finding 4 There is no radiographic abnormality in the region of the area of patient concern in the right breast at 3 o'clock, 2 cm from the nipple. ULTRASOUND FINDINGS: Finding 2 Ultrasound demonstrates a non-parallel hypoechoic vascular irregular mass with spiculated margins measuring 1.3 x 0.9 x 1.1 cm in the left breast at 9 o'clock, 2 cm from the nipple. It extends into the nipple and has robust vascularity. The remainder of the ipsilateral breast is unremarkable. Finding 3 There is an abnormal lymph node measuring 1 x 0.6 x 0.7 cm in the left axilla labeled 2. It has complete hilar effacement. There is one other smaller abnormal level 1 node with hilar effacement labeled 1. No other nodes are visualized. Finding 4 There is an area of focal skin thickening in the right breast at 3 o'clock, 2 cm from the nipple. Finding correlates to the area of scarring and patient concern in the right breast at 3 o'clock, 2 cm from the nipple. IMPRESSION: Finding 1 Masses in both breasts are benign. Finding 2 Irregular mass in the left breast at 9 o'clock, 2 cm from the nipple is suspicious. It extends into the nipple. An ultrasound guided biopsy is recommended. Finding 3 Abnormal lymph node in the left axilla is suspicious. An ultrasound guided biopsy is recommended. I discussed the findings and results with the patient over the phone at the time of the interpretation. The Breast Center Navigator will consult with the patient regarding the recommendations including Breast Clinic referral recommendation. An [employer] message with the recommendations of Breast Surgery Clinic referral and breast biopsy will be submitted by the Breast Center Navigator to Makayla Morley on 02/21/2024 at the time of interpretation. The Breast Center Navigator will schedule the appropriate appointments for the patient. Finding 4 Area of skin thickening in the right breast at 3 o'clock, 2 cm from the nipple is benign. BI-RADS Category 4: Suspicious RISK ASSESSMENT: Estimated lifetime breast cancer risk: Average (less than 15%, as per the Tyrer-Cuzick/NOAH model) NCI Lifetime Risk Score: 10.8% [facility] US BREAST/AXILLA BILATon US BREAST/AXILLA BILAT EXAM: BILATERAL DIAGNOSTIC MAMMOGRAM W/TOMOSYNTHESIS AND CAD, Bilateral US BREAST/AXILLA BILATERAL CLINICAL HISTORY: Patient is 49 years old and is seen for diagnostic evaluation of follow up from a previous breast imaging study in both breasts. The patient has a history of bilateral cyst aspiration at age 46 - benign. The patient has no personal history of cancer. The patient has no family history of breast cancer. COMPARISON: The present examination has been compared to prior imaging studies performed at [facility] on 12/17/2020 and 01/03/2022. TECHNIQUE: The following mammographic views were obtained: bilateral CC, CC with tomosynthesis, MLO and MLO with tomosynthesis. Computer-aided detection was utilized by the radiologist in the interpretation of this examination. Handheld real-time ultrasound study was done by registered technologist with images submitted for review and dictation. Examination was done in a directed fashion of the site(s) of interest. MAMMOGRAM FINDINGS: The breasts are almost entirely fat. Finding 1 There are multiple bilateral circumscribed masses which is typically a benign pattern. Finding 2 There is an irregular mass with spiculated margins and associated skin retraction and nipple retraction in the left breast at 9 o'clock, 2 cm from the nipple. Mass correlates to the area of patient concern in the left breast at 9 o'clock, 2 cm from the nipple. Finding 4 There is no radiographic abnormality in the region of the area of patient concern in the right breast at 3 o'clock, 2 cm from the nipple. ULTRASOUND FINDINGS: Finding 2 Ultrasound demonstrates a non-parallel hypoechoic vascular irregular mass with spiculated margins measuring 1.3 x 0.9 x 1.1 cm in the left breast at 9 o'clock, 2 cm from the nipple. It extends into the nipple and has robust vascularity. The remainder of the ipsilateral breast is unremarkable. Finding 3 There is an abnormal lymph node measuring 1 x 0.6 x 0.7 cm in the left axilla labeled 2. It has complete hilar effacement. There is one other smaller abnormal level 1 node with hilar effacement labeled 1. No other nodes are visualized. Finding 4 There is an area of focal skin thickening in the right breast at 3 o'clock, 2 cm from the nipple. Finding correlates to the area of scarring and patient concern in the right breast at 3 o'clock, 2 cm from the nipple. IMPRESSION: Finding 1 Masses in both breasts are benign. Finding 2 Irregular mass in the left breast at 9 o'clock, 2 cm from the nipple is suspicious. It extends into the nipple. An ultrasound guided biopsy is recommended. Finding 3 Abnormal lymph node in the left axilla is suspicious. An ultrasound guided biopsy is recommended. I discussed the findings and results with the patient over the phone at the time of the interpretation. The Breast Center Navigator will consult with the patient regarding the recommendations including Breast Clinic referral recommendation. An Epic message with the recommendations of Breast Surgery Clinic referral and breast biopsy will be submitted by the Breast Center Navigator to Makayla Morley on 02/21/2024 at the time of interpretation. The Breast Center Navigator will schedule the appropriate appointments for the patient. Finding 4 Area of skin thickening in the right breast at 3 o'clock, 2 cm from the nipple is benign. BI-RADS Category 4: Suspicious RISK ASSESSMENT: Estimated lifetime breast cancer risk: Average (less than 15%, as per the Tyrer-Cuzick/NOAH model) NCI Lifetime Risk Score: 10.8% Normal [facility] US Breast - bilateralon 02-03 Radiology Study observation (narrative) Koogame Telephone Encounteron 2023 [employer] 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 Interface Message Text Attempted to contact patient. Left voicemail message on listed contact # to call [facility] at [phone]. Asked patient to reference #[phone] when calling back to our office. Ok to relay message below. Pt has not been seen in Internal Medicine Clinic Is pt currently receiving care at [facility]? Can provider supply enough medication until pt is seen with new provider? If not pt will need to come in for an appt for med refill. Normal [facility] Barrel Rib 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 Interface Message Text Patient is requesting a medication listed under current medications as Historical. Please evaluate validity of therapy and forward to provider if appropriate. If not appropriate please contact the patient. Thank you. clonidine 0.1mg 1 tab hs Has appt 03-13-24 to [facility] Normal The [facility] Patient Instructionson 02-18 Barrel Rib 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 Interface Message Text Get testing as ordered by Dr. De Anda F/U 4 weeks Normal [facility] Progress Noteson 02-19-2024 Barrel Rib 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 Interface Message Text Chief Complaint: Referred by SHELDON (Donny) foot pain Evaluated in [place] with CTA Told she has a clot in her right leg AND aorta Did not bring any documents or films VRF: Active smoker, dyslipidemia, hypertension. No DM, prior vascular surgery Past Medical History: Diagnosis Date Cholecystitis Depressed Stomach ulcer Current Outpatient Medications: rivaroxaban (Xarelto) 10 MG tablet, Take 10 mg by mouth., Disp: , Rfl: omeprazole (PRILOSEC) 40 MG capsule, Take 1 Capsule by mouth daily., Disp: 30 Capsule, Rfl: 3 chlorhexidine (PERIDEX) 0.12 % oral solution, Take 15 mL by mouth 2 times daily., Disp: 1 Bottle, Rfl: 3 ibuprofen (MOTRIN) 600 MG tablet, Take 1 Tab by mouth every 6 hours as needed for Pain. (Patient not taking: Reported on 02/19/2024), Disp: 90 Tab, Rfl: 3 Allergies Allergen Reactions Keflex [Cephalexin] Hives Zoloft Zyprexa [Olanzapine] States makes her agitated No family history on file. Social History Socioeconomic History Marital status: Single Tobacco Use Smoking status: Every Day Average packs/day: 2.0 packs/day for 4.3 years (8.6 total pack years) Types: Cigarettes Start date: 2019 Smokeless tobacco: Current Social Determinants of Health Food Insecurity: Food Insecurity Present (12/14/2023) Received from [facility] Hunger Vital Sign Worried About Running Out of Food in the Last Year: Sometimes true Ran Out of Food in the Last Year: Sometimes true Transportation Needs: Unmet Transportation Needs (12/14/2023) Received from [facility] GUTIERREZ - Transportation Lack of Transportation (Medical): Yes Lack of Transportation (Non-Medical): Yes Portions of record reviewed for pertinent issues: active problem list, medication list, allergies, and family history. Review Of Systems Skin: negative Eyes: negative review of symptoms Ears/Nose/Throat: negative Respiratory: negative symptoms (no cough, hemoptysis, SOB, TAFOYA, PND, wheezing) Cardiovascular: negative symptoms (No CP/Pressure/Tightness, palpitations, orthopnea, PND, SOB, TAFOYA, edema, MANUEL or vision change) Gastrointestinal: heartburn or reflux and dyspepsia Genitourinary: no urinary symptoms Musculoskeletal: negative (no arthritic pain, no joint swelling, no muscle weakness) Neurologic: negative symptoms (no syncope, seizures, weakness, gait problems, numbness, burning pain, tremors, or memory loss) Psychiatric: negative (no sleep disturbance, anxiety, memory loss, disorientation, inattention, feelings of depression) Hematologic/Lymphatic/Imm unologic: negative (no anemia, bleeding, bruising) Endocrine: negative review of symptoms PHYSICAL EXAMINATION: Blood Pressure 134/71 Pulse 124 Respiration 20 Weight 220 lb (99.8 kg) Oxygen Saturation 94% Comment: room air General appearance: healthy, alert, pleasant, mild distress, cooperative, oriented to time, place and person, obese Skin: Skin color, texture, turgor normal. No rashes or lesions. Head: Normocephalic. No masses, lesions, tenderness or abnormalities Eyes: negative Ears: External ears normal. Canals clear. TM's normal. Nose/Sinuses: Deferred Oropharynx: Deferred Neck: Neck supple. No adenopathy. Back: Back symmetric, no curvature. ROM normal. No CVA tenderness. Lungs: Good breath sounds; no wheezes, rales or rhonchi. Heart: RRR Abdomen: Obese Extremities: Extremities normal. No deformities, edema, or skin discoloration Musculoskeletal: Spine ROM normal. Muscular strength intact. Peripheral pulses:Palpable DP on left, non palpable pulses right. Both feet warm AND pink Neuro: Intact and symmetric. ASSESSMENT / PLAN: PAD (peripheral artery disease) (HCC) [035525] Vinod was seen today for new patient, to establish relationship. Diagnoses and all orders for this visit: PAD (peripheral artery disease) ([facility]) - VASCULAR VENOUS DUPLEX SCAN - VASCULAR PERIPHERAL ARTERIAL SCAN - VASCULAR SEGMENTAL PRESSURE Other orders - [id number] Normal The [facility] ED Provider Fatou 02-04-20 Barrel Rib 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 Interface Message Text EMERGENCY DEPARTMENT - VISIT NOTE ----- HISTORY OF PRESENT ILLNESS - Chief Complaint Patient presents with Abdominal pain Acid reflex las night, leg pain HIPAA: Verbal permission granted from patient to discuss case, including protected health information, in front of family / friends in room at the time of the evaluation. Healthcare Specialist: not needed - patient preferred language is Nepalese. The history is provided by the Patient. Vinod Ann is a 49 year old female presenting to the ED for multiple concerns. Primary concern is concern for disordered sleep breathing. Patient notes that she frequently has episodes at nighttime where she wakes up coughing and feeling short of breath. Last night her roommate noticed that she stopped breathing for a period of time. Patient woke up and felt fine. She denies any known history of obstructive sleep apnea but has never been tested. Currently denies any chest pain, shortness of breath, fever, chills. Reports daytime sleepiness, morning headaches. Patient also reports that she has been told she needs to see an ENT to be evaluated for possible throat cancer and is interested in transferring care to [facility]. Also reports a history of arterial thrombus, currently on Xarelto, symptoms of blue toes are improved since starting this medication. Again, interested in transferring care to [facility]. She also has a cracked tooth which she would like a referral to dentistry for. REVIEW OF SYSTEMS Negative except as above PAST HISTORY Pertinent Past History: Past Medical History: Diagnosis Date Cholecystitis Depressed Stomach ulcer There is no problem list on file for this patient. Pertinent Social History: PHYSICAL EXAM BP 128/81 Pulse (!) 101 Temp 97.9 ???F (36.6 ???C) (Oral) Resp 18 SpO2 96% Exam: Constitutional: Nursing triage notes reviewed, Vital signs reviewed, Alert, Awake, and No acute distress HENT: No facial abrasions or nasal swelling, no intraoral or lip lacerations or bleeding, No rhinorrhea, Posterior orpharynx symmetric and noninjected, and no stridor partially edentulous at area of concern decay L lower canine no periapical abscess induration or drainage Eyes: Pupils equal round and reactive to light, Nonicteric, and Noninjected Neck: Supple and No nuchal rigidity Lung: Clear to auscultation, No wheezing, No rales, and No respiratory distress Cardiac: Regular rate and rhythm and No murmurs Abdomen: Soft, Nondistended, and Nontender Ext: well healing wound of distal tip of great toe, WWP, brisk capillary refill Neuro: Alert normally oriented, CN 3-12 intact, Normal speech, and Gait normal Skin: Warm and Dry MEDICAL DECISION MAKING and ED COURSE Nursing triage and assessment notes reviewed and incorporated. Review of External (Non- ED) Notes: History of aortic mural thrombus, COPD, breast abscess, LE claudication, R iliac embolism Office visit 01/10/24 for multiple concerns including chronic DVT referral placed Admission 12/29 OSH for evaluation of BLE embolism, negative echo, no afib. CT A/P from this admission: 1. No evidence of groin or perineal abscess or focal inflammation. 2. Hepatic steatosis. 3. Mild diverticulosis. 4. Mild nonspecific intrahepatic bile duct dilatation as well as prominent diameter of the common bile duct possibly related to dysfunction at level of the ampulla. If clinically warranted, MRCP may be helpful for further evaluation. 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 On CT scan she has a small area of thrombus within her right common iliac artery which is also located at the same level as the takeoff of her right accessory renal artery. She has distal peroneal occlusion as well. Some distal thrombus on left as well. I suspect she had some embolic events to her right worse than left. Unsure the exact etiology of the thrombus and whether it may be drug use related. She has been sober for 4 months. Will plan on switching from plavix to Xarelto. Will also get CTA chest and echo to eval for any potential more proximal source of embolus. Discussed wit her to keep her foot clean and dry. If any areas open up then to paint with betadine. Will see her back after testing is completed. Management Decisions: CTneck considered but not performed due to low suspicion for soft tissue infection, airway compromise. Likely RERE Secondary Considerations / Diagnoses Addressed During this Visit: Dental request, request for vascular follow up Medication Management (more content not included)... Normal [facility] Telephone Encounteron 2023 Barrel Rib 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 Interface Message Text Patient called to transfer her care of her Vascular care to [facility]. Per her visit summary on 12/12 Vascular Surgery Outpatient Consultation Chief Complaint Patient presents with Surgical Consult Small vessel disease right toe, swelling leg. Reason for Consult: Blue toe syndrome Patient would like an urgent appointment as she has PAD as well. Please call the patient to schedule her for an urgent appointment. Thank you. [phone] Normal [facility] Cult,[place]oundon 12-20-2023 Cult,Wound Specimen Description .ABSCESS Direct Exam Swab collections are low-yield and rarely indicated. Generally, the specimen volume when collected by swab is small, reducing the probability of isolating organisms: many organisms adhere to the fibers of the swab, which reduces the opportunity or recovering organisms. Interpret results with caution. RARE Polymorphonuclear leukocytes NO EPITHELIAL CELLS RARE GRAM POSITIVE COCCI IN PAIRS Culture STREPTOCOCCI, ALPHA HEMOLYTIC One colony Report Status FINAL 12/20/2023 Abnormal [facility] Comment on above: Performed By: #### B MP, CK, MG, CBCWD #### [facility] [address] [place] [address] Community Service Aide: Swapnil Landis MD C.trachomatis N.gonorrhoeae DNA, Urineon 12-18-2023 Chlamydia sp DNA CHETAN+probe Ql (U) Negative NEGATIVE [facility] Comment on above: CHLAMYDIA TRACHOMATI S DNA not detected by nucleic acid amplification. This test is intended for medical purposes only and is not valid for the evaluation of suspected sexual abuse or for other forensic purposes. In certain contexts, culture may be required to meet applicable laws and regulations for diagnosis of C. trachomatis and N. gonorrhoeae infections. Per 2014 CDC recommendations, this test does not include confirmation of positive results by an alternative nucleic acid target. N. gonorrhoeae DNA CHETAN+probe Ql (U) Negative NEGATIVE [facility] Comment on above: NEISSERIA GONORRHOEA E DNA not detected by nucleic acid amplification. This test is intended for medical purposes only and is not valid for the evaluation of suspected sexual abuse or for other forensic purposes. In certain contexts, culture may be required to meet applicable laws and regulations for diagnosis of C. trachomatis and N. gonorrhoeae infections. Per 2014 CDC recommendations, this test does not include confirmation of positive results by an alternative nucleic acid target. Specimen Description .URINE [facility] Chlamydia/GC DNA, Uron 12-18 Chlamydia Probe, Ur Negative Normal NEG [facility] Comment on above: Result Comment: CHLA MYDIA TRACHOMATIS DNA not detected by nucleic acid amplification. This test is intended for medical purposes only and is not valid for the evaluation of suspected sexual abuse or for other forensic purposes. In certain contexts, culture may be required to meet applicable laws and regulations for diagnosis of C. trachomatis and N. gonorrhoeae infections. Per 2014 CDC recommendations, this test does not include confirmation of positive results by an alternative nucleic acid target. Performed By: #### B MP #### [address] [place] [address] Community Service Aide: Swapnil Landis MD Gonorrhea Probe, Ur Negative Normal NEG [facility] Comment on above: Result Comment: NEIS SERIA GONORRHOEAE DNA not detected by nucleic acid amplification. This test is intended for medical purposes only and is not valid for the evaluation of suspected sexual abuse or for other forensic purposes. In certain contexts, culture may be required to meet applicable laws and regulations for diagnosis of C. trachomatis and N. gonorrhoeae infections. Per 2014 CDC recommendations, this test does not include confirmation of positive results by an alternative nucleic acid target. Performed By: #### B MP #### [address] [place] [address] Community Service Aide: Swapnil Landis MD Cult, [facility] 12-18-2023 Cult, Blood Specimen Description .BLOOD Special Requests Culture NO GROWTH 5 DAYS Report Status FINAL 12/18/2023 [facility] Comment on above: Performed By: #### B MP, CK, MG, CBCWD #### [address] [place] [address] Community Service Aide: Swapnil Landis MD Cult,[facility] 12-18-2023 Cult,Blood Specimen Description .BLOOD Special Requests Culture NO GROWTH 5 DAYS Report Status FINAL 12/18/2023 [facility] Comment on above: Performed By: #### B MP #### [address] [place] [address] Community Service Aide: Swapnil Landis MD Cult,[facility] 12-18-2023 Cult,Wound Specimen Description .ABSCESS Direct Exam Swab collections are low-yield and rarely indicated. Generally, the specimen volume when collected by swab is small, reducing the probability of isolating organisms: many organisms adhere to the fibers of the swab, which reduces the opportunity or recovering organisms. Interpret results with caution. NO Polymorphonuclear leukocytes NO EPITHELIAL CELLS NO ORGANISMS SEEN Culture NO GROWTH Report Status FINAL 12/18/2023 Normal [facility] Comment on above: Performed By: #### P RCAL #### [facility] [address] [place] [address] Community Service Aide: Swapnil Landis MD Culture, [place] 12-18-2023 Microorganism identified Cx Nom (Unsp spec) NO GROWTH [facility] Microorganism or agent identified Nom (Unsp spec) Swab collections are low-yield and rarely indicated. Generally, the specimen volume when collected by swab is small, reducing the probability of isolating organisms: many organisms adhere to the fibers of the swab, which reduces the opportunity or recovering organisms. Interpret results with caution. [facility] Microorganism or agent identified Nom (Unsp spec) NO Polymorphonuclear leukocytes [facility] Microorganism or agent identified Nom (Unsp spec) NO EPITHELIAL CELLS [facility] Microorganism or agent identified Nom (Unsp spec) NO ORGANISMS SEEN [facility] Specimen Description .ABSCESS [facility] Laboratoryon 12-18-2023 Microorganism identified Cx Nom (Unsp spec) NO GROWTH 5 DAYS [facility] Laboratory - Miscellaneous t estson 12-18-2023 Service comment (Unsp spec) [Interp] [facility] No Panel Informationon 12-18 Specimen Description .BLOOD [facility] STEPHANIE COMPLETE W/COLOR FLOW AN D SPECTRAL DOPPLERon 12-18-2023 STEPHANIE COMPLETE W/COLOR FLOW AND SPECTRAL DOPPLER ?? Left??Ventricle ?? Aortic??Valve ?? Left??Atrium ?? Interatrial??Septum ?? Aorta ?? No evidence of intracardiac thrombus or intracardiac shunting. ?? Image quality is adequate. Left Ventricle The EF by visual approximation is 60 - 65%. Right Ventricle Normal systolic function. Left Atrium Normal appendage flow velocity. No left atrial appendage thrombus noted. Right Atrium No thrombus or mass visualized. Mitral Valve Valve structure is normal. Trace regurgitation. Tricuspid Valve Valve structure is normal. Trace regurgitation. Aortic Valve Mildly calcified cusp. Pulmonic Valve Valve structure is normal. Ascending Aorta Normal sized aortic root. Mild focal atherosclerosis seen in the descending aorta. Septum Agitated saline study was negative with and without provocation. Study Details Image quality was achieved by conscious sedation. No complications. STEPHANIE probe was removed. Color flow Doppler was performed and pulse wave and/or continuous wave Doppler was performed. Saline contrast was given to evaluate for intracardiac shunt. Normal [facility] Troponinon 12-18-2023 Troponin I.cardiac High sensitivity method [Mass/Vol] ng/L 0 - 9 ng/L [facility] Comment on above: High Sensitivity Troponin values cannot be compared with other Troponin methodologies. Patients with high levels of Biotin oral intake (i.e >5mg/day) may have falsely decreased Troponin levels. Samples collected within 8 hours of biotin intake may require additional information for diagnosis. [facility] Troponin, High Sens <6 Normal 0-9 [facility] Comment on above: Result Comment: High Sensitivity Troponin values cannot be compared with other Troponin methodologies. Patients with high levels of Biotin oral intake (i.e >5mg/day) may have falsely decreased Troponin levels. Samples collected within 8 hours of biotin intake may require additional information for diagnosis. Performed By: #### T MOMO #### [facility] [address] [place] [address] Community Service Aide: Swapnil Landis MD US Heart Transesophagealon 0 12-18-2023 Body surface area Derived from formula 2.13 m2 [facility] Left Ventricle: The EF by visual approximation is 60 - 65%. Aortic Valve: Mildly calcified cusp. Left Atrium: Normal appendage flow velocity. No left atrial appendage thrombus noted. Interatrial Septum: Agitated saline study was negative with and without provocation. Aorta: Mild focal atherosclerosis seen in the descending aorta. No evidence of intracardiac thrombus or intracardiac shunting. Image quality is adequate. Left Ventricle The EF by visual approximation is 60 - 65%. Right Ventricle Normal systolic function. Left Atrium Normal appendage flow velocity. No left atrial appendage thrombus noted. Right Atrium No thrombus or mass visualized. Mitral Valve Valve structure is normal. Trace regurgitation. Tricuspid Valve Valve structure is normal. Trace regurgitation. Aortic Valve Mildly calcified cusp. Pulmonic Valve Valve structure is normal. Ascending Aorta Normal sized aortic root. Mild focal atherosclerosis seen in the descending aorta. Septum Agitated saline study was negative with and without provocation. Study Details Image quality: adequate. The underlying ECG rhythm was sinus rhythm. The procedure, risks and alternatives were explained. Informed consent was obtained. STEPHANIE probe number: [id number]. STEPHANIE probe was inserted by the priest with no difficulty. Sedation was achieved by conscious sedation. No complications. STEPHANIE probe was removed. Color flow Doppler was performed and pulse wave and/or continuous wave Doppler was performed. Saline contrast was given to evaluate for intracardiac shunt. [facility] Radiology Study observation (narrative) [facility] Basic Metabolic Panelon 12-06 Anion gap [Moles/Vol] 12 mmol/L 7 - 16 mmol/L [facility] Calcium [Mass/Vol] 8.9 mg/dL 8.6 - 10. 2 mg/dL [facility] Chloride [Moles/Vol] 99 mmol/L 98 - 10 7 mmol/L [facility] CO2 [Moles/Vol] 23 mmol/L 22 - 29 mmol/L [facility] Creatinine [Mass/Vol] 0.7 mg/dL 0.50 - 1.00 mg/dL [facility] GFR/1.73 sq M.predicted MDRD (S/P/Bld) [Vol rate/Area] - PINF [facility] Comment on above: These results are not intended for use in patients <18 years of age. eGFR results are calculated without a race factor using the 2020 CKD-EPI equation. Careful clinical correlation is recommended, particularly when comparing to results calculated using previous equations. The CKD-EPI equation is less accurate in patients with extremes of muscle mass, extra-renal metabolism of creatine, excessive creatine ingestion, or following therapy that affects renal tubular secretion. Glucose [Mass/Vol] 178 mg/dL High 74 - 99 mg/dL [facility] Interpretation and review of laboratory results Abnormal [facility] Potassium [Moles/Vol] 3.5 mmol/L 3.5 - 5.0 mmol/L [facility] Sodium [Moles/Vol] 134 mmol/L 132 - 146 mmol/L [facility] Urea nitrogen [Mass/Vol] 6 mg/dL 6 - 20 mg/dL [facility] Basic Metabolic Profon 12-17 Anion gap [Moles/Vol] 12 mmol/L Normal 7-16 [facility] Comment on above: Performed By: #### B MP #### [address] [place] [address] Community Service Aide: Swapnil Landsi MD Calcium [Mass/Vol] 8.9 mg/dL Normal 8.6-10.2 [facility] Comment on above: Performed By: #### B MP #### [address] [address] Community Service Aide: Swapnil Landis MD Chloride [Moles/Vol] 99 mmol/L Normal 98-107 [facility] Comment on above: Performed By: #### B MP #### [address] [place] [address] Community Service Aide: Swapnil Landis MD CO2 [Moles/Vol] 23 mmol/L Normal 22-29 [facility] Comment on above: Performed By: #### B MP #### [address] [place] [address] Community Service Aide: Swapnil Landis MD Creatinine [Mass/Vol] 0.7 mg/dL Normal 0.50-1.00 [facility] Comment on above: Performed By: #### B MP #### [address] [address] Community Service Aide: Swapnil Landis MD GFR/1.73 sq M.predicted among non-blacks MDRD (S/P/Bld) [Vol rate/Area] mL/min/{1.73_m2} Normal >60 [facility] Comment on above: Result Comment: These results are not intended for use in patients <18 years of age. eGFR results are calculated without a race factor using the 2020 CKD-EPI equation. Careful clinical correlation is recommended, particularly when comparing to results calculated using previous equations. The CKD-EPI equation is less accurate in patients with extremes of muscle mass, extra-renal metabolism of creatine, excessive creatine ingestion, or following therapy that affects renal tubular secretion. Performed By: #### B MP #### [address] [place] [address] Community Service Aide: Swapnil Landis MD Glucose [Mass/Vol] 178 mg/dL High 74-99 [facility] Comment on above: Performed By: #### B MP #### [address] [place] [address] Community Service Aide: Swapnil Landis MD Potassium [Moles/Vol] 3.5 mmol/L Normal 3.5-5.0 [facility] Comment on above: Performed By: #### B MP #### [address] [place] [address] Community Service Aide: Swapnil Landis MD Sodium [Moles/Vol] 134 mmol/L Normal 132-146 [facility] Comment on above: Performed By: #### B MP #### [address] [place] [address] Community Service Aide: Swapnil Landis MD Urea nitrogen [Mass/Vol] 6 mg/dL Normal 6-20 [facility] Comment on above: Performed By: #### B MP #### [address] [place] [address] Community Service Aide: Swapnil Landis MD C.trachomatis N.gonorrhoeae DNA, Urineon 12-17-2023 Chlamydia sp DNA CHETAN+probe Ql (U) Negative NEGATIVE [facility] Comment on above: CHLAMYDIA TRACHOMATI S DNA not detected by nucleic acid amplification. This test is intended for medical purposes only and is not valid for the evaluation of suspected sexual abuse or for other forensic purposes. In certain contexts, culture may be required to meet applicable laws and regulations for diagnosis of C. trachomatis and N. gonorrhoeae infections. Per 2014 CDC recommendations, this test does not include confirmation of positive results by an alternative nucleic acid target. N. gonorrhoeae DNA CHETAN+probe Ql (U) Negative NEGATIVE [facility] Comment on above: NEISSERIA GONORRHOEA E DNA not detected by nucleic acid amplification. This test is intended for medical purposes only and is not valid for the evaluation of suspected sexual abuse or for other forensic purposes. In certain contexts, culture may be required to meet applicable laws and regulations for diagnosis of C. trachomatis and N. gonorrhoeae infections. Per 2014 CDC recommendations, this test does not include confirmation of positive results by an alternative nucleic acid target. Specimen Description .URINE [facility] Chlamydia/GC DNA, Uron 12-17 Chlamydia Probe, Ur Negative Normal NEG [facility] Comment on above: Result Comment: CHLA MYDIA TRACHOMATIS DNA not detected by nucleic acid amplification. This test is intended for medical purposes only and is not valid for the evaluation of suspected sexual abuse or for other forensic purposes. In certain contexts, culture may be required to meet applicable laws and regulations for diagnosis of C. trachomatis and N. gonorrhoeae infections. Per 2014 CDC recommendations, this test does not include confirmation of positive results by an alternative nucleic acid target. Performed By: #### B MP #### [place] [address] Community Service Aide: Swapnil Landis MD Gonorrhea Probe, Ur Negative Normal NEG [facility] Comment on above: Result Comment: NEIS SERIA GONORRHOEAE DNA not detected by nucleic acid amplification. This test is intended for medical purposes only and is not valid for the evaluation of suspected sexual abuse or for other forensic purposes. In certain contexts, culture may be required to meet applicable laws and regulations for diagnosis of C. trachomatis and N. gonorrhoeae infections. Per 2014 CDC recommendations, this test does not include confirmation of positive results by an alternative nucleic acid target. Performed By: #### B MP #### [place] [address] Community Service Aide: Swapnil Landis MD Culture, MRSA, Screeningon 0 12-17-2023 Microorganism identified Cx Nom (Unsp spec) NEGATIVE FOR: METHICILLIN RESISTANT STAPHYLOCOCCUS AUREUS [facility] Specimen Description .NARES [facility] HIV Ag/Abon 12-17-2023 HIV Ag/Ab Non-Reactive Normal NR [facility] Comment on above: Performed By: #### B MP #### [address] [place] [address] Community Service Aide: Swapnil Landis MD HIV Screenon 12-17-2023 HIV 1+2 Ab+HIV1 p24 Ag IA Ql Non-Reactive NONREACTIVE [facility] Rule Out MRSAon 12-17-2023 Rule Out MRSA Specimen Description .NARES Culture NEGATIVE FOR: METHICILLIN RESISTANT STAPHYLOCOCCUS AUREUS Report Status FINAL 12/17/2023 Normal [facility] Comment on above: Performed By: #### B MP, CK, MG, CBCWD #### [address] [place], [place] [id number] Community Service Aide: Swapnil Landis MD Basic Metabolic Panelon 12-06 Anion gap [Moles/Vol] 13 mmol/L 7 - 16 mmol/L [facility] Calcium [Mass/Vol] 8.6 mg/dL 8.6 - 10. 2 mg/dL [facility] Chloride [Moles/Vol] 98 mmol/L 98 - 10 7 mmol/L [facility] CO2 [Moles/Vol] 23 mmol/L 22 - 29 mmol/L [facility] Creatinine [Mass/Vol] 0.7 mg/dL 0.50 - 1.00 mg/dL [facility] GFR/1.73 sq M.predicted MDRD (S/P/Bld) [Vol rate/Area] - PINF [facility] Comment on above: These results are not intended for use in patients <18 years of age. eGFR results are calculated without a race factor using the 2020 CKD-EPI equation. Careful clinical correlation is recommended, particularly when comparing to results calculated using previous equations. The CKD-EPI equation is less accurate in patients with extremes of muscle mass, extra-renal metabolism of creatine, excessive creatine ingestion, or following therapy that affects renal tubular secretion. Glucose [Mass/Vol] 125 mg/dL High 74 - 99 mg/dL [facility] Interpretation and review of laboratory results Abnormal [facility] Potassium [Moles/Vol] 3.3 mmol/L Low 3.5 - 5.0 mmol/L [facility] Sodium [Moles/Vol] 134 mmol/L 132 - 146 mmol/L [facility] Urea nitrogen [Mass/Vol] 7 mg/dL 6 - 20 mg/dL [facility] Basic Metabolic Profon 12-16 Anion gap [Moles/Vol] 13 mmol/L Normal 7-16 [facility] Comment on above: Performed By: #### B MP #### [address] [address] Community Service Aide: Swapnil Landis MD Calcium [Mass/Vol] 8.6 mg/dL Normal 8.6-10.2 [facility] Comment on above: Performed By: #### B MP #### [address] [address] Community Service Aide: Swapnil Landis MD Chloride [Moles/Vol] 98 mmol/L Normal 98-107 [facility] Comment on above: Performed By: #### B MP #### [address] [address] Community Service Aide: Swapnil Landis MD CO2 [Moles/Vol] 23 mmol/L Normal 22-29 [facility] Comment on above: Performed By: #### B MP #### [address] [address] Community Service Aide: Swapnil Landis MD Creatinine [Mass/Vol] 0.7 mg/dL Normal 0.50-1.00 [facility] Comment on above: Performed By: #### B MP #### [address] [address] Community Service Aide: Swapnil Landis MD GFR/1.73 sq M.predicted among non-blacks MDRD (S/P/Bld) [Vol rate/Area] mL/min/{1.73_m2} Normal >60 [facility] Comment on above: Result Comment: These results are not intended for use in patients <18 years of age. eGFR results are calculated without a race factor using the 2020 CKD-EPI equation. Careful clinical correlation is recommended, particularly when comparing to results calculated using previous equations. The CKD-EPI equation is less accurate in patients with extremes of muscle mass, extra-renal metabolism of creatine, excessive creatine ingestion, or following therapy that affects renal tubular secretion. Performed By: #### B MP #### [address] [address] Community Service Aide: Swapnil Landis MD Glucose [Mass/Vol] 125 mg/dL High 74-99 [facility] Comment on above: Performed By: #### B MP #### [address] [address] Community Service Aide: Swapnil Landis MD Potassium [Moles/Vol] 3.3 mmol/L Low 3.5-5.0 [facility] Comment on above: Performed By: #### B MP #### [address] [address] Community Service Aide: Swapnil Landis MD Sodium [Moles/Vol] 134 mmol/L Normal 132-146 [facility] Comment on above: Performed By: #### B MP #### [address] [address] Community Service Aide: Swapnil Landis MD Urea nitrogen [Mass/Vol] 7 mg/dL Normal 6-20 [facility] Comment on above: Performed By: #### B MP #### [address] [id number] Community Service Aide: Swapnil Landis MD Procalcitoninon 12-16-2023 Procalcitonin [Mass/Vol] 0.04 ng/mL 0.00 - 0.08 ng/mL [facility] Procalcitonin 0.04 ng/mL Normal 0.00-0.08 [facility] Comment on above: Performed By: #### P RCAL #### [address] [address] Community Service Aide: Swapnil Landis MD US BREAST LIMITEDon 12-16-19 US BREAST LIMITED EXAMINATION: Limited ultrasound bilateral breast. 12/16/2023 COMPARISON: Chest CT 12/15/2023 HISTORY: ORDERING SYSTEM PROVIDED HISTORY: breast discharge TECHNOLOGIST PROVIDED HISTORY: Reason for exam:->breast discharge What reading provider will be dictating this exam?->CRC FINDINGS: Within the right breast at the 3 o'clock area near the nipple, there is an irregular area favored to represent complex fluid collection measuring 0.8 x 0.9 x 0.5 cm. Within the left breast at the 9 o'clock area near the nipple there is in irregular area complex fluid collection measuring 1.3 x 1.6 x 0.9 cm. IMPRESSION: 1. Irregular complex areas near the nipples bilaterally favored to represent complex fluid collections. Infected fluid collections are possible based on the appearance. Given the history of breast drainage, patient should undergo diagnostic mammography at some point. Considered BI-RADS 0 for mammography at this time given patient age and clinical history. Interpreted by: Kolby Ness MD Signed by: Kolby Ness MD 12/16/23 Final result Normal [facility] Comment on above: Order Comment: Reaso n for exam:->breast dischargeWhat reading provider will be dictating this exam?->CRC US Breast limitedon 12-16-19 24 1. Irregular complex areas near the nipples bilaterally favored to represent complex fluid collections. Infected fluid collections are possible based on the appearance. Given the history of breast drainage, patient should undergo diagnostic mammography at some point. Considered BI-RADS 0 for mammography at this time given patient age and clinical history. [facility] EXAMINATION: Limited ultrasound bilateral breast. 12/16/2023 COMPARISON: Chest CT 12/15/2023 HISTORY: ORDERING SYSTEM PROVIDED HISTORY: breast discharge TECHNOLOGIST PROVIDED HISTORY: Reason for exam:->breast discharge What reading provider will be dictating this exam?->CRC FINDINGS: Within the right breast at the 3 o'clock area near the nipple, there is an irregular area favored to represent complex fluid collection measuring 0.8 x 0.9 x 0.5 cm. Within the left breast at the 9 o'clock area near the nipple there is in irregular area complex fluid collection measuring 1.3 x 1.6 x 0.9 cm. [facility] Radiology Study observation (narrative) [facility] [employer] US Breast limitedOrdered By: Kolby Ness on 12-16-2023 [facility] Work Phone: Basic Metabolic Panelon 12-06 Anion gap [Moles/Vol] 11 mmol/L 7 - 16 mmol/L [facility] Calcium [Mass/Vol] 8.9 mg/dL 8.6 - 10. 2 mg/dL [facility] Chloride [Moles/Vol] 99 mmol/L 98 - 10 7 mmol/L [facility] CO2 [Moles/Vol] 25 mmol/L 22 - 29 mmol/L [facility] Creatinine [Mass/Vol] 0.7 mg/dL 0.50 - 1.00 mg/dL [facility] GFR/1.73 sq M.predicted MDRD (S/P/Bld) [Vol rate/Area] - PINF [facility] Comment on above: These results are not intended for use in patients <18 years of age. eGFR results are calculated without a race factor using the 2020 CKD-EPI equation. Careful clinical correlation is recommended, particularly when comparing to results calculated using previous equations. The CKD-EPI equation is less accurate in patients with extremes of muscle mass, extra-renal metabolism of creatine, excessive creatine ingestion, or following therapy that affects renal tubular secretion. Glucose [Mass/Vol] 106 mg/dL High 74 - 99 mg/dL [facility] Interpretation and review of laboratory results Abnormal [facility] Potassium [Moles/Vol] 3.6 mmol/L 3.5 - 5.0 mmol/L [facility] Sodium [Moles/Vol] 135 mmol/L 132 - 146 mmol/L [facility] Urea nitrogen [Mass/Vol] 7 mg/dL 6 - 20 mg/dL [facility] Basic Metabolic Profon 12-15 Anion gap [Moles/Vol] 11 mmol/L Normal 7-16 [facility] Comment on above: Performed By: #### B MP #### [place] [address] Community Service Aide: Swapnil Landis MD Calcium [Mass/Vol] 8.9 mg/dL Normal 8.6-10.2 [facility] Comment on above: Performed By: #### B MP #### [address] [address] Community Service Aide: Swapnil Landis MD Chloride [Moles/Vol] 99 mmol/L Normal 98-107 [facility] Comment on above: Performed By: #### B MP #### [address] [address] Community Service Aide: Swapnil Landis MD CO2 [Moles/Vol] 25 mmol/L Normal 22-29 [facility] Comment on above: Performed By: #### B MP #### [place] [address] Community Service Aide: Swapnil Landis MD Creatinine [Mass/Vol] 0.7 mg/dL Normal 0.50-1.00 [facility] Comment on above: Performed By: #### B MP #### [address] [place] [address] Community Service Aide: Swapnil Landis MD GFR/1.73 sq M.predicted among non-blacks MDRD (S/P/Bld) [Vol rate/Area] mL/min/{1.73_m2} Normal >60 [facility] Comment on above: Result Comment: These results are not intended for use in patients <18 years of age. eGFR results are calculated without a race factor using the 2020 CKD-EPI equation. Careful clinical correlation is recommended, particularly when comparing to results calculated using previous equations. The CKD-EPI equation is less accurate in patients with extremes of muscle mass, extra-renal metabolism of creatine, excessive creatine ingestion, or following therapy that affects renal tubular secretion. Performed By: #### B MP #### [address] [address] Community Service Aide: Swapnil Landis MD Glucose [Mass/Vol] 106 mg/dL High 74-99 [facility] Comment on above: Performed By: #### B MP #### [address] [address] Community Service Aide: Swapnil Landis MD Potassium [Moles/Vol] 3.6 mmol/L Normal 3.5-5.0 [facility] Comment on above: Performed By: #### B MP #### [address] [address] Community Service Aide: Swapnil Landis MD Sodium [Moles/Vol] 135 mmol/L Normal 132-146 [facility] Comment on above: Performed By: #### B MP #### [address] [address] Community Service Aide: Swapnil Landis MD Urea nitrogen [Mass/Vol] 7 mg/dL Normal 6-20 [facility] Comment on above: Performed By: #### B #### [facility] [address] [place] [address] Community Service Aide: Swapnil Landis MD CT CHEST W CONTRASTon 2023 CT CHEST W CONTRAST EXAMINATION: CT OF THE CHEST WITH CONTRAST 12/15/2023 12:27 pm TECHNIQUE: CT of the chest was performed with the administration of intravenous contrast. Multiplanar reformatted images are provided for review. Automated exposure control, iterative reconstruction, and/or weight based adjustment of the mA/kV was utilized to reduce the radiation dose to as low as reasonably achievable. COMPARISON: None. HISTORY: ORDERING SYSTEM PROVIDED HISTORY: Rule out mural thrombus of the aorta TECHNOLOGIST PROVIDED HISTORY: Reason for exam:->Rule out mural thrombus of the aorta Reason for exam:->Patient has arterial emboli to both legs What reading provider will be dictating this exam?->CRC FINDINGS: Mediastinum: Thyroid is homogeneous in attenuation. No bulky mediastinal adenopathy. Central airways are patent. Esophagus with normal course and caliber. Cardiac size within normal limits without pericardial effusion. Thoracic aorta is patent and nonaneurysmal with only minimal calcifications at the left subclavian takeoff and at the distal descending thoracic aorta where there is minimal intramural thrombus at the thoracoabdominal aortic junction otherwise unremarkable without evidence for ulceration or periaortic hematoma Lungs/pleura: Lungs are clear without focal opacification or consolidation. Mild heterogeneity greatest at the lung apices of likely respiratory bronchiolitis configuration without suspicious dominant nodule or mass. No pleural effusion or pleural process. Upper Abdomen: Visualized portions of the upper abdomen unremarkable. Soft Tissues/Bones: No acute osseous or soft tissue findings. No aggressive osseous lesion. IMPRESSION: 1. Minimal intramural thrombus at the thoracoabdominal aortic junction without evidence for ulceration or periaortic hematoma. 2. Minimal calcifications at the left subclavian takeoff and at the distal descending thoracic aorta. 3. No acute pulmonary process. Mild heterogeneity suggesting respiratory bronchiolitis background chronic findings. Interpreted by: Minor Matos DO Signed by: Minor Matos DO 12/15/23 Final result Normal [facility] Comment on above: Order Comment: Reaso n for exam:->Rule out mural thrombus of the aortaReason for exam:->Patient has arterial emboli to both legsWhat reading provider will be dictating this exam?->CRC CT Chest W contrast Damon 1. Minimal intramura l thrombus at the thoracoabdominal aortic junction without evidence for ulceration or periaortic hematoma. 2. Minimal calcifications at the left subclavian takeoff and at the distal descending thoracic aorta. 3. No acute pulmonary process. Mild heterogeneity suggesting respiratory bronchiolitis background chronic findings. [facility] EXAMINATION: CT OF THE CHEST WITH CONTRAST 12/15/2023 12:27 pm TECHNIQUE: CT of the chest was performed with the administration of intravenous contrast. Multiplanar reformatted images are provided for review. Automated exposure control, iterative reconstruction, and/or weight based adjustment of the mA/kV was utilized to reduce the radiation dose to as low as reasonably achievable. COMPARISON: None. HISTORY: ORDERING SYSTEM PROVIDED HISTORY: Rule out mural thrombus of the aorta TECHNOLOGIST PROVIDED HISTORY: Reason for exam:->Rule out mural thrombus of the aorta Reason for exam:->Patient has arterial emboli to both legs What reading provider will be dictating this exam?->CRC FINDINGS: Mediastinum: Thyroid is homogeneous in attenuation. No bulky mediastinal adenopathy. Central airways are patent. Esophagus with normal course and caliber. Cardiac size within normal limits without pericardial effusion. Thoracic aorta is patent and nonaneurysmal with only minimal calcifications at the left subclavian takeoff and at the distal descending thoracic aorta where there is minimal intramural thrombus at the thoracoabdominal aortic junction otherwise unremarkable without evidence for ulceration or periaortic hematoma Lungs/pleura: Lungs are clear without focal opacification or consolidation. Mild heterogeneity greatest at the lung apices of likely respiratory bronchiolitis configuration without suspicious dominant nodule or mass. No pleural effusion or pleural process. Upper Abdomen: Visualized portions of the upper abdomen unremarkable. Soft Tissues/Bones: No acute osseous or soft tissue findings. No aggressive osseous lesion. [facility] Matos, Minor, DO - 12/15/2023 EXAMINATION: CT OF THE CHEST WITH CONTRAST 12/15/2023 12:27 pm TECHNIQUE: CT of the chest was performed with the administration of intravenous contrast. Multiplanar reformatted images are provided for review. Automated exposure control, iterative reconstruction, and/or weight based adjustment of the mA/kV was utilized to reduce the radiation dose to as low as reasonably achievable. COMPARISON: None. HISTORY: ORDERING SYSTEM PROVIDED HISTORY: Rule out mural thrombus of the aorta TECHNOLOGIST PROVIDED HISTORY: Reason for exam:->Rule out mural thrombus of the aorta Reason for exam:->Patient has arterial emboli to both legs What reading provider will be dictating this exam?->CRC FINDINGS: Mediastinum: Thyroid is homogeneous in attenuation. No bulky mediastinal adenopathy. Central airways are patent. Esophagus with normal course and caliber. Cardiac size within normal limits without pericardial effusion. Thoracic aorta is patent and nonaneurysmal with only minimal calcifications at the left subclavian takeoff and at the distal descending thoracic aorta where there is minimal intramural thrombus at the thoracoabdominal aortic junction otherwise unremarkable without evidence for ulceration or periaortic hematoma Lungs/pleura: Lungs are clear without focal opacification or consolidation. Mild heterogeneity greatest at the lung apices of likely respiratory bronchiolitis configuration without suspicious dominant nodule or mass. No pleural effusion or pleural process. Upper Abdomen: Visualized portions of the upper abdomen unremarkable. Soft Tissues/Bones: No acute osseous or soft tissue findings. No aggressive osseous lesion. IMPRESSION: 1. Minimal intramural thrombus at the thoracoabdominal aortic junction without evidence for ulceration or periaortic hematoma. 2. Minimal calcifications at the left subclavian takeoff and at the distal descending thoracic aorta. 3. No acute pulmonary process. Mild heterogeneity suggesting respiratory bronchiolitis background chronic findings. [facility] Radiology Study observation (narrative) [facility] CT Chest W contrast IVOrdere d By: Minor Matos on 12-15-2023 [facility] Work Phone: C-Reactive Proteinon 024 CRP High sensitivity method [Mass/Vol] 13.0 mg/L High 0 - 5 mg/L [facility] Interpretation and review of laboratory results Abnormal [facility] CRP [Mass/Vol] 13.0 mg/L High 0-5 [facility] Comment on above: Performed By: #### B MP #### [id number] [place] [address] Community Service Aide: Swapnil Landis MD CBC with Auto Differentialon 12-14-2023 Basophils (Bld) [#/Vol] 0.05 10*3/uL [facility] Basophils/100 WBC (Bld) 1 % 0.0 - 2.0 % [facility] Eosinophils (Bld) [#/Vol] 0.13 10*3/uL [facility] Eosinophils/100 WBC (Bld) 1 % 0 - 6 % [facility] Erythrocyte distribution width (RBC) [Ratio] 14.6 % 11.5 - 15.0 % [facility] Hematocrit (Bld) [Volume fraction] 41.5 % 34.0 - 48.0 % [facility] Hemoglobin (Bld) [Mass/Vol] 13.7 g/dL 11.5 - 15.5 g/dL [facility] Immature granulocytes (Bld) [#/Vol] 0.03 10*3/uL [facility] Immature granulocytes/100 WBC (Bld) 0 % 0.0 - 5.0 % [facility] Lymphocytes/100 WBC (Bld) 33 % 20.0 - 42.0 % [facility] Lymphocytes/100 WBC (Bld) 3.05 % [facility] MCH (RBC) [Entitic mass] 29.4 pg 26.0 - 35.0 pg [facility] MCHC (RBC) [Mass/Vol] 33.0 g/dL 32.0 - 34.5 g/dL [facility] MCV (RBC) [Entitic vol] 89.1 fL 80.0 - 99.9 fL [facility] Monocytes/100 WBC (Bld) 5 % 2.0 - 12.0 % [facility] Monocytes/100 WBC (Bld) 0.50 % [facility] Neutrophils/100 WBC (Bld) 59 % 43.0 - 80.0 % [facility] Platelet mean volume (Bld) [Entitic vol] 9.7 fL 7.0 - 12.0 fL [facility] Platelets (Bld) [#/Vol] 381 10*3/uL [facility] RBC (Bld) [#/Vol] 4.66 10*6/uL 3.50 - 5.5 0 m/uL [facility] Segmented neutrophils/100 WBC (Bld) 5.43 % [facility] WBC other (Bld) [#/Vol] 9.2 [facility] Basophils (Bld) [#/Vol] 0.06 10*3/uL [facility] Basophils/100 WBC (Bld) 1 % 0.0 - 2.0 % [facility] Eosinophils (Bld) [#/Vol] 0.18 10*3/uL [facility] Eosinophils/100 WBC (Bld) 2 % 0 - 6 % [facility] Erythrocyte distribution width (RBC) [Ratio] 14.5 % 11.5 - 15.0 % [facility] Hematocrit (Bld) [Volume fraction] 40.2 % 34.0 - 48.0 % [facility] Hemoglobin (Bld) [Mass/Vol] 13.2 g/dL 11.5 - 15.5 g/dL [facility] Immature granulocytes (Bld) [#/Vol] 0.04 10*3/uL [facility] Immature granulocytes/100 WBC (Bld) 1 % 0.0 - 5.0 % [facility] Lymphocytes/100 WBC (Bld) 34 % 20.0 - 42.0 % [facility] Lymphocytes/100 WBC (Bld) 2.96 % [facility] MCH (RBC) [Entitic mass] 29.3 pg 26.0 - 35.0 pg [facility] MCHC (RBC) [Mass/Vol] 32.8 g/dL 32.0 - 34.5 g/dL [facility] MCV (RBC) [Entitic vol] 89.1 fL 80.0 - 99.9 fL [facility] Monocytes/100 WBC (Bld) 8 % 2.0 - 12.0 % [facility] Monocytes/100 WBC (Bld) 0.68 % [facility] Neutrophils/100 WBC (Bld) 55 % 43.0 - 80.0 % [facility] Platelet mean volume (Bld) [Entitic vol] 9.7 fL 7.0 - 12.0 fL [facility] Platelets (Bld) [#/Vol] 367 10*3/uL [facility] RBC (Bld) [#/Vol] 4.51 10*6/uL 3.50 - 5.5 0 m/uL [facility] Segmented neutrophils/100 WBC (Bld) 4.80 % [facility] WBC other (Bld) [#/Vol] 8.7 [facility] with Diffon 12-14-2023 Abs. Basophil 0.05 k/uL Normal 0.00-0.20 [facility] Comment on above: Performed By: #### B MP #### [place] [address] Community Service Aide: Swapnil Landis MD Abs.Imm.Granulocyte 0.03 k/uL Normal 0.00-0.58 [facility] Comment on above: Performed By: #### B MP #### [place] [address] Community Service Aide: Swapnil Landis MD Abs.Neutrophil (Seg) 5.43 k/uL Normal 1.80-7.30 [facility] Comment on above: Performed By: #### B MP #### [place] [address] Community Service Aide: Swapnil Landis MD Basophils/100 WBC (Bld) 1 % Normal 0.0-2.0 [facility] Comment on above: Performed By: #### B MP #### [place] [address] Community Service Aide: Swapnil Landis MD Eosinophils (Bld) [#/Vol] 0.13 10*3/uL Normal 0.05-0.50 [facility] Comment on above: Performed By: #### B MP #### [place] [address] Community Service Aide: Swapnil Landis MD Eosinophils/100 WBC (Bld) 1 % Normal 0-6 [facility] Comment on above: Performed By: #### B MP #### [place] [address] Community Service Aide: Swapnil Landis MD Erythrocyte distribution width (RBC) [Ratio] 14.6 % Normal 11.5-15.0 [facility] Comment on above: Performed By: #### B MP #### [place] [address] Community Service Aide: Swapnil Landis MD Hematocrit (Bld) [Volume fraction] 41.5 % Normal 34.0-48.0 [facility] Comment on above: Performed By: #### B MP #### [place] [address] Community Service Aide: Swapnil Landis MD Hemoglobin (Bld) [Mass/Vol] 13.7 g/dL Normal 11.5-15.5 [facility] Comment on above: Performed By: #### B MP #### [place] [address] Community Service Aide: Swapnil Landis MD Immature granulocytes/100 WBC (Bld) 0 % Normal 0.0-5.0 [facility] Comment on above: Performed By: #### B MP #### [place] [address] Community Service Aide: Swapnil Landis MD Lymphocytes (Bld) [#/Vol] 3.05 10*3/uL Normal 1.50-4.00 [facility] Comment on above: Performed By: #### B MP #### [place] [address] Community Service Aide: Swapnil Landis MD Lymphocytes/100 WBC (Bld) 33 % Normal 20.0-42.0 [facility] Comment on above: Performed By: #### B MP #### [place] [address] Community Service Aide: Swapnil Landis MD MCH (RBC) [Entitic mass] 29.4 pg Normal 26.0-35.0 [facility] Comment on above: Performed By: #### B MP #### [place] [address] Community Service Aide: Swapnil Landis MD MCHC (RBC) [Mass/Vol] 33.0 g/dL Normal 32.0-34.5 [facility] Comment on above: Performed By: #### B MP #### [place] [address] Community Service Aide: Swapnil Landis MD MCV (RBC) [Entitic vol] 89.1 fL Normal 80.0-99.9 [facility] Comment on above: Performed By: #### B MP #### [place] [address] Community Service Aide: Swapnil Landis MD Monocytes (Bld) [#/Vol] 0.50 10*3/uL Normal 0.10-0.95 [facility] Comment on above: Performed By: #### B MP #### [place] [id number] Community Service Aide: Swapnil Landis MD Monocytes/100 WBC (Bld) 5 % Normal 2.0-12.0 [facility] Comment on above: Performed By: #### B MP #### [address] [address] Community Service Aide: Swapnil Landis MD Neutrophil (Seg) 59 % Normal 43.0-80.0 [facility] Comment on above: Performed By: #### B MP #### [address] [address] Community Service Aide: Swapnil Landis MD Platelet mean volume (Bld) [Entitic vol] 9.7 fL Normal 7.0-12.0 [facility] Comment on above: Performed By: #### B MP #### [address] [address] Community Service Aide: Swapnil Landis MD Platelets (Bld) [#/Vol] 381 10*3/uL Normal 130-450 [facility] Comment on above: Performed By: #### B MP #### [address] [address] Community Service Aide: Swapnil Landis MD RBC (Bld) [#/Vol] 4.66 10*6/uL Normal 3.50-5.50 [facility] Comment on above: Performed By: #### B MP #### [place] [address] Community Service Aide: Swapnil Landis MD WBC (Bld) [#/Vol] 9.2 10*3/uL Normal 4.5-11.5 [facility] Comment on above: Performed By: #### B MP #### [address] [address] Community Service Aide: Swapnil Landis MD Abs. Basophil 0.06 k/uL Normal 0.00-0.20 [facility] Comment on above: Performed By: #### P RCAL #### [place] [address] Community Service Aide: Swapnil Landis MD Abs.Imm.Granulocyte 0.04 k/uL Normal 0.00-0.58 [facility] Comment on above: Performed By: #### P RCAL #### [place] [address] Community Service Aide: Swapnil Landis MD Abs.Neutrophil (Seg) 4.80 k/uL Normal 1.80-7.30 [facility] Comment on above: Performed By: #### P RCAL #### [place] [address] Community Service Aide: Swapnil Landis MD Basophils/100 WBC (Bld) 1 % Normal 0.0-2.0 [facility] Comment on above: Performed By: #### P RCAL #### [place] [address] Community Service Aide: Swapnil Landis MD Eosinophils (Bld) [#/Vol] 0.18 10*3/uL Normal 0.05-0.50 [facility] Comment on above: Performed By: #### P RCAL #### [place] [address] Community Service Aide: Swapnil Landis MD Eosinophils/100 WBC (Bld) 2 % Normal 0-6 [facility] Comment on above: Performed By: #### P RCAL #### [place] [address] Community Service Aide: Swapnil Landis MD Erythrocyte distribution width (RBC) [Ratio] 14.5 % Normal 11.5-15.0 [facility] Comment on above: Performed By: #### P RCAL #### [place] [address] Community Service Aide: Swapnil Landis MD Hematocrit (Bld) [Volume fraction] 40.2 % Normal 34.0-48.0 [facility] Comment on above: Performed By: #### P RCAL #### [place] [address] Community Service Aide: Swapnil Landis MD Hemoglobin (Bld) [Mass/Vol] 13.2 g/dL Normal 11.5-15.5 [facility] Comment on above: Performed By: #### P RCAL #### [place] [address] Community Service Aide: Swapnil Landis MD Immature granulocytes/100 WBC (Bld) 1 % Normal 0.0-5.0 [facility] Comment on above: Performed By: #### P RCAL #### [place] [address] Community Service Aide: Swapnil Landis MD Lymphocytes (Bld) [#/Vol] 2.96 10*3/uL Normal 1.50-4.00 [facility] Comment on above: Performed By: #### P RCAL #### [place] [address] Community Service Aide: Swapnil Landis MD Lymphocytes/100 WBC (Bld) 34 % Normal 20.0-42.0 [facility] Comment on above: Performed By: #### P RCAL #### [place] [address] Community Service Aide: Swapnil Landis MD MCH (RBC) [Entitic mass] 29.3 pg Normal 26.0-35.0 [facility] Comment on above: Performed By: #### P RCAL #### [place] [address] Community Service Aide: Swapnil Landis MD MCHC (RBC) [Mass/Vol] 32.8 g/dL Normal 32.0-34.5 [facility] Comment on above: Performed By: #### P RCAL #### [place] [address] Community Service Aide: Swapnil Landis MD MCV (RBC) [Entitic vol] 89.1 fL Normal 80.0-99.9 [facility] Comment on above: Performed By: #### P RCAL #### [place] [address] Community Service Aide: Swapnil Landis MD Monocytes (Bld) [#/Vol] 0.68 10*3/uL Normal 0.10-0.95 [facility] Comment on above: Performed By: #### P RCAL #### [place] [address] Community Service Aide: Swapnil Landis MD Monocytes/100 WBC (Bld) 8 % Normal 2.0-12.0 [facility] Comment on above: Performed By: #### P RCAL #### [place] [address] Community Service Aide: Swapnil Landis MD Neutrophil (Seg) 55 % Normal 43.0-80.0 [facility] Comment on above: Performed By: #### P RCAL #### [place] [id number] Community Service Aide: Swapnil Landis MD Platelet mean volume (Bld) [Entitic vol] 9.7 fL Normal 7.0-12.0 [facility] Comment on above: Performed By: #### P RCAL #### [address] [place] [address] Community Service Aide: Swapnil Landis MD Platelets (Bld) [#/Vol] 367 10*3/uL Normal 130-450 [facility] Comment on above: Performed By: #### P RCAL #### [address] [place] [address] Community Service Aide: Swapnil Landis MD RBC (Bld) [#/Vol] 4.51 10*6/uL Normal 3.50-5.50 [facility] Comment on above: Performed By: #### P RCAL #### [address] [place], [place] [id number] Community Service Aide: Swapnil Landis MD WBC (Bld) [#/Vol] 8.7 10*3/uL Normal 4.5-11.5 [facility] Comment on above: Performed By: #### P RCAL #### [address] [place] [id number] Community Service Aide: Swapnil Landis MD Cardiac echo study Procedure Ordered By: Deepak Cage on 12-14-2023 Ascending Aorta 3.1 cm [employer] Work Phone: Ascending Aorta Index 1.50 cm/m2 [employer] Phone: AV Area by Peak Velocity 2.2 cm2 [employer] Phone: AV Area by VTI 2.1 cm2 [employer] Phone: AV Mean Gradient 6 mmHg [employer] Phone: AV Mean Velocity 1.2 m/s [employer] Phone: AV Peak Gradient 12 mmHg YARED ESPINAL [employer] Work Phone: AV Peak Velocity 1.7 m/s YARED ESPINAL [employer] Phone: AV Velocity Ratio 0.65 YARED [employer] Phone: AV VTI 29.4 cm YARED [employer] Work Phone: DARIELA/BSA Peak Velocity 1.1 cm2/m2 [facility]ED [employer] Work Phone: DARIELA/BSA VTI 1.0 cm2/m2 YARED [employer] Phone: Body surface area Derived from formula 2.13 m2 [employer] Phone: EF BP 66 % 55 - 100 % [facility] Work Phone: Est. RA Pressure 3 mmHg YARED ESPINAL [employer] Work Phone: Fractional Shortening 2D 23 % 28 - 44 % [employer] Phone: Interpretation and review of laboratory results Abnormal [employer] Phone: IVSd 1.1 cm Abnormal 0.6 - 0.9 cm [employer] Phone: IVSs 1.1 cm [facility] Work Phone: LA Diameter 3.6 cm [employer] Phone: LA Size Index 1.75 cm/m2 [employer] Phone: LA Volume A-L A4C 41 mL 22 - 52 mL [employer] Phone: LA Volume A-L A4C 31 mL 22 - 52 mL [employer] Phone: LA Volume A/L 36 mL [employer] Phone: LA Volume Index A-L A2C 20 mL/m2 16 - 34 mL/m2 [facility] Work Phone: LA Volume Index A-L A4C 15 mL/m2 Abnormal 16 - 34 mL/m2 [facility] Work Phone: LA Volume Index A/L 17 mL/m2 16 - 34 mL/m2 [facility] Work Phone: LA Volume Index MOD A2C 19 ml/m2 16 - 34 ml/m2 [facility] Work Phone: LA Volume Index MOD A4C 14 ml/m2 Abnormal 16 - 34 ml/m2 [facility] Work Phone: LA Volume MOD A2C 40 mL 22 - 52 mL [employer] Work Phone: LA Volume MOD A4C 29 mL 22 - 52 mL [employer] Work Phone: LV EDV A2C 53 mL [facility] Work Phone: LV EDV A4C 111 mL [facility] Work Phone: LV EDV BP 79 mL 56 - 104 mL [facility] Work Phone: LV EDV Index A2C 26 mL/m2 [facility] [employer] Work Phone: LV EDV Index A4C 54 mL/m2 [facility] URS [employer] Work Phone: LV EDV Index BP 38 mL/m2 [facility] [employer] Work Phone: LV Ejection Fraction A2C 62 % [facility] Work Phone: LV Ejection Fraction A4C 68 % [facility] Work Phone: LV ESV A2C 21 mL [facility] Work Phone: LV ESV A4C 35 mL [facility]ON [employer] Work Phone: LV ESV BP 27 mL 19 - 49 mL [facility] [employer] Work Phone: LV ESV Index A2C 10 mL/m2 [facility] SEC[facility] URS [employer] Work Phone: LV ESV Index A4C 17 mL/m2 [facility] SEC[facility] URS [employer] Work Phone: LV ESV Index BP 13 mL/m2 [facility] SECOU RS [employer] Work Phone: LV IVRT 120.0 ms [facility]ON [employer] Work Phone: LV Mass 2D 187.5 g Abnormal 67 - 162 g [facility] Work Phone: LV Mass 2D Index 91.0 g/m2 43 - 95 g/m2 [facility] [email or web address] Work Phone: LV RWT Ratio 0.47 [facility] Work Phone: LVIDd 4.7 cm 3.9 - 5.3 cm [facility] Work Phone: LVIDd Index 2.28 cm/m2 [facility] Work Phone: LVIDs 3.6 cm [facility] [employer] Work Phone: LVIDs Index 1.75 cm/m2 [facility] Work Phone: LVOT Area 3.5 cm2 [facility] Work Phone: LVOT Diameter 2.1 cm [facility]ON [employer] Work Phone: LVOT Mean Gradient 3 mmHg [facility]ON [employer] Work Phone: LVOT Peak Gradient 5 mmHg BON SE COURS [employer] Work Phone: LVOT Peak Velocity 1.1 m/s BON [email or web address] Work Phone: LVOT Stroke Volume Index 30.6 mL/m2 YARED RIVERA [employer] Work Phone: LVOT SV 63.0 ml YARED RIVERA [employer] Work Phone: LVOT VTI 18.2 cm YARED RIVERA [employer] Work Phone: LVOT:AV VTI Index 0.62 YARED WISE [employer] Work Phone: LVPWd 1.1 cm Abnormal 0.6 - 0.9 cm YARED RIVERA [employer] Work Phone: LVPWs 1.2 cm YARED RIVERA [employer] Work Phone: MV A Velocity 0.89 m/s YARED RIVERA [employer] Phone: MV Area by PHT 4.3 cm2 YARED Bowman [employer] Work Phone: MV Area by VTI 2.9 cm2 YARED Bowman [employer] Work Phone: MV E Velocity 0.76 m/s YARED RIVERA [employer] Work Phone: MV E Wave Deceleration Time 159.1 ms YARED RIVERA [employer] Work Phone: MV E/A 0.85 YARED RIVERA [employer] Work Phone: MV Max Velocity 1.2 m/s YARED MANDUJANO RS [employer] Work Phone: MV Mean Gradient 3 mmHg YARED ESPINAL [employer] Work Phone: MV Mean Velocity 0.8 m/s YARED SECO URS [employer] Work Phone: MV Peak Gradient 6 mmHg YARED SECO TEDDY [employer] Work Phone: MV PHT 50.7 ms YARED RIVERA [employer] Work Phone: MV VTI 22.0 cm [facility] Work Phone: MV:LVOT VTI Index 1.21 [facility] Work Phone: Pulm Vein A Duration 124.6 ms BON [employer] Work Phone: Pulm Vein A Velocity 0.4 m/s [facility] Work Phone: Pulm Vein Peak D Velocity 0.4 m/s [facility] Work Phone: Pulm Vein Peak S Velocity 0.6 m/s [facility] Work Phone: Pulm Vein S/D 1.5 [employer] Phone: PV Max Velocity 1.2 m/s BON [employer] Work Phone: PV Mean Gradient 3 mmHg [facility] [employer] Work Phone: PV Mean Velocity 0.8 m/s [facility] [employer] Work Phone: PV Peak Gradient 6 mmHg BON [employer] Work Phone: PV VTI 19.7 cm [employer] Phone: RVIDd 2.4 cm [facility] Work Phone: RVSP 32 mmHg [facility] Work Phone: TR Max Velocity 2.69 m/s BON [employer] Work Phone: TR Peak Gradient 29 mmHg BON [employer] Work Phone: [facility] Work Phone: Cardiac echo study Procedure on 12-14-2023 No gross evidence of intracardiac mass or thrombus. Interatrial Septum: Interatrial septum was not well visualized. No interatrial shunt visualized with color Doppler. Left Ventricle: Normal left ventricular systolic function with EF 55%. Left ventricle size is normal. Findings consistent with mild concentric hypertrophy. Normal wall motion. Normal diastolic function. Aortic Valve: No significant stenosis. Tricuspid Valve: Trace regurgitation., RVSP 32mmHg. Image quality is adequate. Left Ventricle Normal left ventricular systolic function with a visually estimated EF of 55%. Left ventricle size is normal. Findings consistent with mild concentric hypertrophy. Normal wall motion. Normal diastolic function. Right Ventricle Right ventricle size is normal. Normal systolic function. Left Atrium Left atrium size is normal. Right Atrium Right atrium size is normal. IVC/SVC IVC diameter is less than or equal to 21 mm and decreases greater than 50% during inspiration; therefore the estimated right atrial pressure is normal (~3 mmHg). IVC size is normal. Mitral Valve Valve structure is normal. No regurgitation. No stenosis noted. Tricuspid Valve Valve structure is normal. Trace regurgitation., RVSP 32mmHg. No stenosis noted. Aortic Valve Valve structure is normal. No regurgitation. No significant stenosis. Pulmonic Valve The pulmonic valve was not well visualized. No regurgitation. No stenosis noted. Ascending Aorta Normal sized aortic root and ascending aorta. Pericardium No pericardial effusion. Septum Interatrial septum was not well visualized. No interatrial shunt visualized with color Doppler. Study Details Image quality: adequate. No contrast was given. [facility] Radiology Study observation (narrative) [facility]ED [facility] Comp Metabolic Pr/rfx MGon 0 12-14-2023 Albumin [Mass/Vol] 3.8 g/dL Normal 3.5-5.2 [facility] Comment on above: Performed By: #### P RCAL #### [place] [id number] [place], [place] [id number] Community Service Aide: Swapnil Landis MD Alkaline Phos 82 U/L Normal 35-104 [facility] Comment on above: Performed By: #### P RCAL #### [address] [id number] Community Service Aide: Swapnil Landis MD ALT [Catalytic activity/Vol] 13 U/L Normal 0-32 [facility] Comment on above: Performed By: #### P RCAL #### [address] [place] [address] Community Service Aide: Swapnil Landis MD Anion gap [Moles/Vol] 13 mmol/L Normal 7-16 [facility] Comment on above: Performed By: #### P RCAL #### [place] [address] Community Service Aide: Swapnil Landis MD AST [Catalytic activity/Vol] 14 U/L Normal 0-31 [facility] Comment on above: Performed By: #### P RCAL #### [place] [address] Community Service Aide: Swapnil Landis MD Bilirubin [Mass/Vol] 0.4 mg/dL Normal 0.0-1.2 [facility] Comment on above: Performed By: #### P RCAL #### [place] [address] Community Service Aide: Swapnil Landis MD Calcium [Mass/Vol] 8.8 mg/dL Normal 8.6-10.2 [facility] Comment on above: Performed By: #### P RCAL #### [place] [address] Community Service Aide: Swapnil Landis MD Chloride [Moles/Vol] 98 mmol/L Normal 98-107 [facility] Comment on above: Performed By: #### P RCAL #### [place] [address] Community Service Aide: Swapnil Landis MD CO2 [Moles/Vol] 24 mmol/L Normal 22-29 [facility] Comment on above: Performed By: #### P RCAL #### [address] [address] Community Service Aide: Swapnil Landis MD Creatinine [Mass/Vol] 0.7 mg/dL Normal 0.50-1.00 [facility] Comment on above: Performed By: #### P RCAL #### [address] [address] Community Service Aide: Swapnil Landis MD GFR/1.73 sq M.predicted among non-blacks MDRD (S/P/Bld) [Vol rate/Area] mL/min/{1.73_m2} Normal >60 [facility] Comment on above: Result Comment: These results are not intended for use in patients <18 years of age. eGFR results are calculated without a race factor using the 2020 CKD-EPI equation. Careful clinical correlation is recommended, particularly when comparing to results calculated using previous equations. The CKD-EPI equation is less accurate in patients with extremes of muscle mass, extra-renal metabolism of creatine, excessive creatine ingestion, or following therapy that affects renal tubular secretion. Performed By: #### P RCAL #### [address] [address] Community Service Aide: Swapnil Landis MD Glucose [Mass/Vol] 136 mg/dL High 74-99 [facility] Comment on above: Performed By: #### P RCAL #### [address] [address] Community Service Aide: Swapnil Landis MD Potassium [Moles/Vol] 3.0 mmol/L Low 3.5-5.0 [facility] Comment on above: Performed By: #### P RCAL #### [address] [address] Community Service Aide: Swapnil Landis MD Protein [Mass/Vol] 6.9 g/dL Normal 6.4-8.3 [facility] Comment on above: Performed By: #### P RCAL #### [address] [id number] Community Service Aide: Swapnil Landis MD Sodium [Moles/Vol] 135 mmol/L Normal 132-146 [facility] Comment on above: Performed By: #### P RCAL #### [address] [id number] Community Service Aide: Swapnil Landis MD Urea nitrogen [Mass/Vol] 6 mg/dL Normal 6-20 [facility] Comment on above: Performed By: #### P RCAL #### [address] [id number] Community Service Aide: Swapnil Landis MD Comprehensive Metabolic Pane l w/ Reflex to MGon 12-14-2023 Albumin [Mass/Vol] 3.8 g/dL 3.5 - 5.2 g/dL [facility] ALP [Catalytic activity/Vol] 82 U/L 35 - 104 U/L [facility] ALT [Catalytic activity/Vol] 13 U/L 0 - 32 U/L [facility] Anion gap [Moles/Vol] 13 mmol/L 7 - 16 mmol/L [facility] AST [Catalytic activity/Vol] 14 U/L 0 - 31 U/L [facility] Bilirubin [Mass/Vol] 0.4 mg/dL 0.0 - 1 .2 mg/dL [facility] Calcium [Mass/Vol] 8.8 mg/dL 8.6 - 10. 2 mg/dL [facility] Chloride [Moles/Vol] 98 mmol/L 98 - 10 7 mmol/L [facility] CO2 [Moles/Vol] 24 mmol/L 22 - 29 mmol/L [facility] Creatinine [Mass/Vol] 0.7 mg/dL 0.50 - 1.00 mg/dL [facility] GFR/1.73 sq M.predicted MDRD (S/P/Bld) [Vol rate/Area] - PINF [facility] Comment on above: These results are not intended for use in patients <18 years of age. eGFR results are calculated without a race factor using the 2020 CKD-EPI equation. Careful clinical correlation is recommended, particularly when comparing to results calculated using previous equations. The CKD-EPI equation is less accurate in patients with extremes of muscle mass, extra-renal metabolism of creatine, excessive creatine ingestion, or following therapy that affects renal tubular secretion. Glucose [Mass/Vol] 136 mg/dL High 74 - 99 mg/dL [facility] [employer] Interpretation and review of laboratory results Abnormal [facility] Potassium [Moles/Vol] 3.0 mmol/L Low 3.5 - 5.0 mmol/L [facility] [employer] Protein [Mass/Vol] 6.9 g/dL 6.4 - 8.3 g/dL [facility] [employer] Sodium [Moles/Vol] 135 mmol/L 132 - 146 mmol/L [facility] [employer] Urea nitrogen [Mass/Vol] 6 mg/dL 6 - 20 mg/dL [facility] E[facility] (TTE) COMPLETEon 2023 ECHO (TTE) COMPLETE ?? No gross evidence of intracardiac mass or thrombus. ?? Interatrial??Septum ?? Left??Ventricle ?? Aortic??Valve ?? Tricuspid??Valve ?? Image quality is adequate. Left Ventricle Normal left ventricular systolic function with a visually estimated EF of 55%. Left ventricle size is normal. Findings consistent with mild concentric hypertrophy. Normal wall motion. Normal diastolic function. Right Ventricle Right ventricle size is normal. Normal systolic function. Left Atrium Left atrium size is normal. Right Atrium Right atrium size is normal. IVC/SVC IVC diameter is less than or equal to 21 mm and decreases greater than 50% during inspiration Mitral Valve Valve structure is normal. No regurgitation. No stenosis noted. Tricuspid Valve Valve structure is normal. Trace regurgitation., RVSP 32mmHg. No stenosis noted. Aortic Valve Valve structure is normal. No regurgitation. No significant stenosis. Pulmonic Valve The pulmonic valve was not well visualized. No regurgitation. No stenosis noted. Ascending Aorta Normal sized aortic root and ascending aorta. Pericardium No pericardial effusion. Septum Interatrial septum was not well visualized. No interatrial shunt visualized with color Doppler. Study Details Image quality Normal [facility] Comment on above: Order Comment: Crite yg for performing Bubble Study include HCG Screen, Urineon 12-14-19 24 Beta HCG ( test) Ql (U) Negative Normal NEG [facility] Comment on above: Result Comment: Test results should always be evaluated with all available clinical data. If a urine sample is too dilute, it may not contain a outside medical sales representative urinary hCG concentration. If a negative result is obtained and is still suspected, a first morning sample should be obtained and tested. Performed By: #### B MP #### [address] [place] [address] Community Service Aide: Swapnil Landis MD Magnesiumon 12-14-2023 Magnesium [Mass/Vol] 1.9 mg/dL 1.6 - 2 .6 mg/dL [facility] Magnesium [Mass/Vol] 1.9 mg/dL Normal 1.6-2.6 [facility] Comment on above: Performed By: #### P RCAL #### [address] [place] [address] Community Service Aide: Swapnil Landis MD , URINEon 4 HCG ( test) Ql (U) Negative NEGATIVE [facility] Comment on above: Test results should always be evaluated with all available clinical data. If a urine sample is too dilute, it may not contain a outside medical sales representative urinary hCG concentration. If a negative result is obtained and is still suspected, a first morning sample should be obtained and tested. [facility] Sedimentation Rateon 024 ESR (Bld) [Velocity] 30 mm/h High [facility] Interpretation and review of laboratory results Abnormal [facility] Sedimentation Rate 30 mm/Hr High 0-20 [facility] Comment on above: Performed By: #### B MP #### [address] 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, with an ankle-brachial index of 0.89 with the biphasic ankle Doppler tracings diminished but adequate flow to the metatarsal area, but patient is significantly diminished pulse volume recordings over the toes almost flat On the left side, normal ankle arm index, normal triphasic ankle Doppler tracings, and good arterial flow to the foot and the toes based upon the pulse volume recordings Normal [facility] Comment on above: Order Comment: Fior e do pulse volume recordings over the metatarsals and the toes also thank you Vascular lower extremity art erial segmental pressures w PPGon 12-14-2023 On the right side, r ight 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, with an ankle-brachial index of 0.89 with the biphasic ankle Doppler tracings diminished but adequate flow to the metatarsal area, but patient is significantly diminished pulse volume recordings over the toes almost flat On the left side, normal ankle arm index, normal triphasic ankle Doppler tracings, and good arterial flow to the foot and the toes based upon the pulse volume recordings [facility] Terry Das MD - 12/14/2023 On the right side, 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, with an ankle-brachial index of 0.89 with the biphasic ankle Doppler tracings diminished but adequate flow to the metatarsal area, but patient is significantly diminished pulse volume recordings over the toes almost flat On the left side, normal ankle arm index, normal triphasic ankle Doppler tracings, and good arterial flow to the foot and the toes based upon the pulse volume recordings [facility] Radiology Study observation (narrative) [facility] XR FOOT RIGHT (MIN 3 VIEWS)o n 12-14-2023 XR FOOT RIGHT (MIN 3 VIEWS) EXAMINATION: THREE XRAY VIEWS OF THE RIGHT FOOT 12/14/2023 2:49 pm COMPARISON: None. HISTORY: ORDERING SYSTEM PROVIDED HISTORY: right foot pain TECHNOLOGIST PROVIDED HISTORY: Reason for exam:->right foot pain What reading provider will be dictating this exam?->CRC FINDINGS: There is no evidence of acute fracture. There is normal alignment of the tarsometatarsal joints. There is an osteophyte along the medial aspect of the 1st metatarsal-phalangeal articulation compatible with chronic degenerative joint change. There is a prominent plantar calcaneal spur. There is soft tissue swelling surrounding the ankle, can be associated with underlying ligamentous injury. No acute joint abnormality. No focal osseous lesion. No focal soft tissue abnormality. IMPRESSION: No acute osseous abnormality. Prominent plantar calcaneal spur. Interpreted by: Neo Bolton MD Signed by: Neo Bolton MD 12/14/23 Final result Normal [facility] Comment on above: Order Comment: Reaso n for exam:->right foot painWhat reading provider will be dictating this exam?->CRC XR Foot - right 3 Viewson No acute osseous abnormality. Prominent plantar calcaneal spur. [facility] EXAMINATION: THREE XRAY VIEWS OF THE RIGHT FOOT 12/14/2023 2:49 pm COMPARISON: None. HISTORY: ORDERING SYSTEM PROVIDED HISTORY: right foot pain TECHNOLOGIST PROVIDED HISTORY: Reason for exam:->right foot pain What reading provider will be dictating this exam?->CRC FINDINGS: There is no evidence of acute fracture. There is normal alignment of the tarsometatarsal joints. There is an osteophyte along the medial aspect of the 1st metatarsal-phalangeal articulation compatible with chronic degenerative joint change. There is a prominent plantar calcaneal spur. There is soft tissue swelling surrounding the ankle, can be associated with underlying ligamentous injury. No acute joint abnormality. No focal osseous lesion. No focal soft tissue abnormality. [facility] Neo Bolton MD - 12/14/2023 EXAMINATION: THREE XRAY VIEWS OF THE RIGHT FOOT 12/14/2023 2:49 pm COMPARISON: None. HISTORY: ORDERING SYSTEM PROVIDED HISTORY: right foot pain TECHNOLOGIST PROVIDED HISTORY: Reason for exam:->right foot pain What reading provider will be dictating this exam?->CRC FINDINGS: There is no evidence of acute fracture. There is normal alignment of the tarsometatarsal joints. There is an osteophyte along the medial aspect of the 1st metatarsal-phalangeal articulation compatible with chronic degenerative joint change. There is a prominent plantar calcaneal spur. There is soft tissue swelling surrounding the ankle, can be associated with underlying ligamentous injury. No acute joint abnormality. No focal osseous lesion. No focal soft tissue abnormality. IMPRESSION: No acute osseous abnormality. Prominent plantar calcaneal spur. [facility] Radiology Study observation (narrative) [facility] XR Foot - right 3 ViewsOrder ed By: Neo Bolton on 12-14-2023 [facility] Work Phone: CBC with Auto Differentialon 12-13-2023 Basophils (Bld) [#/Vol] 0.07 10*3/uL [facility] Basophils/100 WBC (Bld) 1 % 0.0 - 2.0 % [facility] Eosinophils (Bld) [#/Vol] 0.20 10*3/uL [facility] Eosinophils/100 WBC (Bld) 2 % 0 - 6 % [facility] Erythrocyte distribution width (RBC) [Ratio] 14.5 % 11.5 - 15.0 % [facility] Hematocrit (Bld) [Volume fraction] 42.0 % 34.0 - 48.0 % [facility] Hemoglobin (Bld) [Mass/Vol] 14.1 g/dL 11.5 - 15.5 g/dL [facility] Immature granulocytes (Bld) [#/Vol] 0.05 10*3/uL [facility] Immature granulocytes/100 WBC (Bld) 1 % 0.0 - 5.0 % [facility] Lymphocytes/100 WBC (Bld) 41 % 20.0 - 42.0 % [facility] Lymphocytes/100 WBC (Bld) 3.89 % [facility] MCH (RBC) [Entitic mass] 29.4 pg 26.0 - 35.0 pg [facility] MCHC (RBC) [Mass/Vol] 33.6 g/dL 32.0 - 34.5 g/dL [facility] MCV (RBC) [Entitic vol] 87.5 fL 80.0 - 99.9 fL [facility] Monocytes/100 WBC (Bld) 6 % 2.0 - 12.0 % [facility] Monocytes/100 WBC (Bld) 0.60 % [facility] Neutrophils/100 WBC (Bld) 50 % 43.0 - 80.0 % [facility] Platelet mean volume (Bld) [Entitic vol] 9.7 fL 7.0 - 12.0 fL [facility] Platelets (Bld) [#/Vol] 401 10*3/uL [facility] RBC (Bld) [#/Vol] 4.80 10*6/uL 3.50 - 5.5 0 m/uL [facility] Segmented neutrophils/100 WBC (Bld) 4.73 % [facility] WBC other (Bld) [#/Vol] 9.5 [facility] CBC with Diffon 12-13-2023 Abs. Basophil 0.07 k/uL Normal 0.00-0.20 [facility] Comment on above: Performed By: #### P RCAL #### [place] [address] Community Service Aide: Swapnil Landis MD Abs.Imm.Granulocyte 0.05 k/uL Normal 0.00-0.58 [facility] Comment on above: Performed By: #### P RCAL #### [place] [address] Community Service Aide: Swapnil Landis MD Abs.Neutrophil (Seg) 4.73 k/uL Normal 1.80-7.30 [facility] Comment on above: Performed By: #### P RCAL #### [place] [address] Community Service Aide: Swapnil Landis MD Basophils/100 WBC (Bld) 1 % Normal 0.0-2.0 [facility] Comment on above: Performed By: #### P RCAL #### [place] [address] Community Service Aide: Swapnil Landis MD Eosinophils (Bld) [#/Vol] 0.20 10*3/uL Normal 0.05-0.50 [facility] Comment on above: Performed By: #### P RCAL #### [place] [address] Community Service Aide: Swapnil Landis MD Eosinophils/100 WBC (Bld) 2 % Normal 0-6 [facility] Comment on above: Performed By: #### P RCAL #### [place] [address] Community Service Aide: Swapnil Landis MD Erythrocyte distribution width (RBC) [Ratio] 14.5 % Normal 11.5-15.0 [facility] Comment on above: Performed By: #### P RCAL #### [place] [address] Community Service Aide: Swapnil Landis MD Hematocrit (Bld) [Volume fraction] 42.0 % Normal 34.0-48.0 [facility] Comment on above: Performed By: #### P RCAL #### [place] [address] Community Service Aide: Swapnil Landis MD Hemoglobin (Bld) [Mass/Vol] 14.1 g/dL Normal 11.5-15.5 [facility] Comment on above: Performed By: #### P RCAL #### [place] [address] Community Service Aide: Swapnil Landis MD Immature granulocytes/100 WBC (Bld) 1 % Normal 0.0-5.0 [facility] Comment on above: Performed By: #### P RCAL #### [place] [address] Community Service Aide: Swapnil Landis MD Lymphocytes (Bld) [#/Vol] 3.89 10*3/uL Normal 1.50-4.00 [facility] Comment on above: Performed By: #### P RCAL #### [place] [address] Community Service Aide: Swapnil Landis MD Lymphocytes/100 WBC (Bld) 41 % Normal 20.0-42.0 [facility] Comment on above: Performed By: #### P RCAL #### [place] [address] Community Service Aide: Swapnil Landis MD MCH (RBC) [Entitic mass] 29.4 pg Normal 26.0-35.0 [facility] Comment on above: Performed By: #### P RCAL #### [place] [address] Community Service Aide: Swapnil Landis MD MCHC (RBC) [Mass/Vol] 33.6 g/dL Normal 32.0-34.5 [facility] Comment on above: Performed By: #### P RCAL #### [place] [address] Community Service Aide: Swapnil Landis MD MCV (RBC) [Entitic vol] 87.5 fL Normal 80.0-99.9 [facility] Comment on above: Performed By: #### P RCAL #### [place] [address] Community Service Aide: Swapnil Landis MD Monocytes (Bld) [#/Vol] 0.60 10*3/uL Normal 0.10-0.95 [facility] Comment on above: Performed By: #### P RCAL #### [address] [place] [address] Community Service Aide: Swapnil Landis MD Monocytes/100 WBC (Bld) 6 % Normal 2.0-12.0 [facility] Comment on above: Performed By: #### P RCAL #### [address] [place] [address] Community Service Aide: Swapnil Landis MD Neutrophil (Seg) 50 % Normal 43.0-80.0 [facility] Comment on above: Performed By: #### P RCAL #### [address] [place] [address] Community Service Aide: Swapnil Landis MD Platelet mean volume (Bld) [Entitic vol] 9.7 fL Normal 7.0-12.0 [facility] Comment on above: Performed By: #### P RCAL #### [address] [address] Community Service Aide: Swapnil Landis MD Platelets (Bld) [#/Vol] 401 10*3/uL Normal 130-450 [facility] Comment on above: Performed By: #### P RCAL #### [address] [place] [address] Community Service Aide: Swapnil Landis MD RBC (Bld) [#/Vol] 4.80 10*6/uL Normal 3.50-5.50 [facility] Comment on above: Performed By: #### P RCAL #### [address] [place] [address] Community Service Aide: Swapnil Landis MD WBC (Bld) [#/Vol] 9.5 10*3/uL Normal 4.5-11.5 [facility] Comment on above: Performed By: #### P RCAL #### [facility] [address] [place] [address] Community Service Aide: Swapnil Landis MD CT ABDOMEN PELVIS W IV CONTR Warner 12-13-2023 CT ABDOMEN PELVIS W IV CONTRAST EXAMINATION: CT OF THE ABDOMEN AND PELVIS WITH CONTRAST 12/13/2023 1:26 pm TECHNIQUE: CT of the abdomen and pelvis was performed with the administration of intravenous contrast. Multiplanar reformatted images are provided for review. Automated exposure control, iterative reconstruction, and/or weight based adjustment of the mA/kV was utilized to reduce the radiation dose to as low as reasonably achievable. COMPARISON: December 08, 2023 HISTORY: ORDERING SYSTEM PROVIDED HISTORY: groin abscess infection? TECHNOLOGIST PROVIDED HISTORY: Reason for exam:->groin abscess infection? Additional Contrast?->None Decision Support Exception - unselect if not a suspected or confirmed emergency medical condition->Emergency Medical Condition ([place]) What reading provider will be dictating this exam?->CRC FINDINGS: No evidence of abscess or focal inflammation involving right or left groin. No evidence of abscess or inflammation involving the peroneal soft tissue. No bowel obstruction, free air, or free fluid. Single prominent diverticulum is associated with the left colon. The appendix is unremarkable. There is generalized decreased attenuation throughout liver suggesting hepatic steatosis. There is mild intrahepatic bile duct dilatation. There is prominence of the common bile duct measuring up to 13 mm in diameter. There is evidence of cholecystectomy. Pancreas is unremarkable. Spleen is normal in size. Adrenal glands are unremarkable. Normal attenuation to both kidneys. No hydronephrosis or perinephric edema. No retroperitoneal lymphadenopathy. Urinary bladder is unremarkable. No pneumonia in the visualized lower lung diez. IMPRESSION: 1. No evidence of groin or perineal abscess or focal inflammation. 2. Hepatic steatosis. 3. Mild diverticulosis. 4. Mild nonspecific intrahepatic bile duct dilatation as well as prominent diameter of the common bile duct possibly related to dysfunction at level of the ampulla. If clinically warranted, MRCP may be helpful for further evaluation. Interpreted by: Kayode Forte DO Signed by: Kayode Forte DO 12/13/23 Final result Normal [facility] Comment on above: Order Comment: Reaso n for exam:->groin abscess infection?Additional Contrast?->NoneDecision Support Exception - unselect if not a suspected or confirmed emergency medical condition->Emergency Medical Condition ([place])What reading provider will be dictating this exam?->CRC CT Abdomen and Pelvis W jessica Jose 12-13-2023 1. No evidence of gr oin or perineal abscess or focal inflammation. 2. Hepatic steatosis. 3. Mild diverticulosis. 4. Mild nonspecific intrahepatic bile duct dilatation as well as prominent diameter of the common bile duct possibly related to dysfunction at level of the ampulla. If clinically warranted, MRCP may be helpful for further evaluation. [facility] EXAMINATION: CT OF THE ABDOMEN AND PELVIS WITH CONTRAST 12/13/2023 1:26 pm TECHNIQUE: CT of the abdomen and pelvis was performed with the administration of intravenous contrast. Multiplanar reformatted images are provided for review. Automated exposure control, iterative reconstruction, and/or weight based adjustment of the mA/kV was utilized to reduce the radiation dose to as low as reasonably achievable. COMPARISON: December 08, 2023 HISTORY: ORDERING SYSTEM PROVIDED HISTORY: groin abscess infection? TECHNOLOGIST PROVIDED HISTORY: Reason for exam:->groin abscess infection? Additional Contrast?->None Decision Support Exception - unselect if not a suspected or confirmed emergency medical condition->Emergency Medical Condition ([place]) What reading provider will be dictating this exam?->CRC FINDINGS: No evidence of abscess or focal inflammation involving right or left groin. No evidence of abscess or inflammation involving the peroneal soft tissue. No bowel obstruction, free air, or free fluid. Single prominent diverticulum is associated with the left colon. The appendix is unremarkable. There is generalized decreased attenuation throughout liver suggesting hepatic steatosis. There is mild intrahepatic bile duct dilatation. There is prominence of the common bile duct measuring up to 13 mm in diameter. There is evidence of cholecystectomy. Pancreas is unremarkable. Spleen is normal in size. Adrenal glands are unremarkable. Normal attenuation to both kidneys. No hydronephrosis or perinephric edema. No retroperitoneal lymphadenopathy. Urinary bladder is unremarkable. No pneumonia in the visualized lower lung diez. [facility] Kayode Forte DO - 12/13/2023 EXAMINATION: CT OF THE ABDOMEN AND PELVIS WITH CONTRAST 12/13/2023 1:26 pm TECHNIQUE: CT of the abdomen and pelvis was performed with the administration of intravenous contrast. Multiplanar reformatted images are provided for review. Automated exposure control, iterative reconstruction, and/or weight based adjustment of the mA/kV was utilized to reduce the radiation dose to as low as reasonably achievable. COMPARISON: December 08, 2023 HISTORY: ORDERING SYSTEM PROVIDED HISTORY: groin abscess infection? TECHNOLOGIST PROVIDED HISTORY: Reason for exam:->groin abscess infection? Additional Contrast?->None Decision Support Exception - unselect if not a suspected or confirmed emergency medical condition->Emergency Medical Condition ([place]) What reading provider will be dictating this exam?->CRC FINDINGS: No evidence of abscess or focal inflammation involving right or left groin. No evidence of abscess or inflammation involving the peroneal soft tissue. No bowel obstruction, free air, or free fluid. Single prominent diverticulum is associated with the left colon. The appendix is unremarkable. There is generalized decreased attenuation throughout liver suggesting hepatic steatosis. There is mild intrahepatic bile duct dilatation. There is prominence of the common bile duct measuring up to 13 mm in diameter. There is evidence of cholecystectomy. Pancreas is unremarkable. Spleen is normal in size. Adrenal glands are unremarkable. Normal attenuation to both kidneys. No hydronephrosis or perinephric edema. No retroperitoneal lymphadenopathy. Urinary bladder is unremarkable. No pneumonia in the visualized lower lung diez. IMPRESSION: 1. No evidence of groin or perineal abscess or focal inflammation. 2. Hepatic steatosis. 3. Mild diverticulosis. 4. Mild nonspecific intrahepatic bile duct dilatation as well as prominent diameter of the common bile duct possibly related to dysfunction at level of the ampulla. If clinically warranted, MRCP may be helpful for further evaluation. [facility] Radiology Study observation (narrative) [facility] CT Abdomen and Pelvis W cont rast IVOrdered By: Kayode Forte on 12-13-2023 [facility] Work Phone: Comp Metabolic Pr/rfx MGon 0 12-13-2023 Albumin [Mass/Vol] 4.3 g/dL Normal 3.5-5.2 [facility] Comment on above: Performed By: #### P RCAL #### [facility] [address] [place] [address] Community Service Aide: Swapnil Landis MD Alkaline Phos 101 U/L Normal 35-104 [facility] Comment on above: Performed By: #### P RCAL #### [address] [place] [address] Community Service Aide: Swapnil Landis MD ALT [Catalytic activity/Vol] 15 U/L Normal 0-32 [facility] Comment on above: Performed By: #### P RCAL #### [address] [address] Community Service Aide: Swapnil Landis MD Anion gap [Moles/Vol] 12 mmol/L Normal 7-16 [facility] Comment on above: Performed By: #### P RCAL #### [address] [address] Community Service Aide: Swapnil Landis MD AST [Catalytic activity/Vol] 15 U/L Normal 0-31 [facility] Comment on above: Performed By: #### P RCAL #### [address] [address] Community Service Aide: Swapnil Landis MD Bilirubin [Mass/Vol] 0.2 mg/dL Normal 0.0-1.2 [facility] Comment on above: Performed By: #### P RCAL #### [address] [address] Community Service Aide: Swapnil Landis MD Calcium [Mass/Vol] 9.4 mg/dL Normal 8.6-10.2 [facility] Comment on above: Performed By: #### P RCAL #### [address] [address] Community Service Aide: Swapnil Landis MD Chloride [Moles/Vol] 95 mmol/L Low 98-107 [facility] Comment on above: Performed By: #### P RCAL #### [address] [place] [address] Community Service Aide: Swapnil Landis MD CO2 [Moles/Vol] 27 mmol/L Normal 22-29 [facility] Comment on above: Performed By: #### P RCAL #### [address] [place] [address] Community Service Aide: Swapnil Landis MD Creatinine [Mass/Vol] 0.8 mg/dL Normal 0.50-1.00 [facility] Comment on above: Performed By: #### P RCAL #### [address] [address] Community Service Aide: Swapnil Landis MD GFR/1.73 sq M.predicted among non-blacks MDRD (S/P/Bld) [Vol rate/Area] mL/min/{1.73_m2} Normal >60 [facility] Comment on above: Result Comment: These results are not intended for use in patients <18 years of age. eGFR results are calculated without a race factor using the 2020 CKD-EPI equation. Careful clinical correlation is recommended, particularly when comparing to results calculated using previous equations. The CKD-EPI equation is less accurate in patients with extremes of muscle mass, extra-renal metabolism of creatine, excessive creatine ingestion, or following therapy that affects renal tubular secretion. Performed By: #### P RCAL #### [address] [place] [address] Community Service Aide: Swapnil Landis MD Glucose [Mass/Vol] 96 mg/dL Normal 74-99 [facility] Comment on above: Performed By: #### P RCAL #### [address] [place] [address] Community Service Aide: Swapnil Landis MD Potassium [Moles/Vol] 3.5 mmol/L Normal 3.5-5.0 [facility] Comment on above: Performed By: #### P RCAL #### [address] [place] [address] Community Service Aide: Swapnil Landis MD Protein [Mass/Vol] 8.0 g/dL Normal 6.4-8.3 [facility] Comment on above: Performed By: #### P RCAL #### [address] [id number] Community Service Aide: Swapnil Landis MD Sodium [Moles/Vol] 134 mmol/L Normal 132-146 [facility] Comment on above: Performed By: #### P RCAL #### [address] [id number] Community Service Aide: Swapnil Landis MD Urea nitrogen [Mass/Vol] 8 mg/dL Normal 6-20 [facility] Comment on above: Performed By: #### P RCAL #### [address] [id number] Community Service Aide: Swapnil Landis MD Comprehensive Metabolic Pane l w/ Reflex to MGon 12-13-2023 Albumin [Mass/Vol] 4.3 g/dL 3.5 - 5.2 g/dL [facility] ALP [Catalytic activity/Vol] 101 U/L 35 - 104 U/L [facility] ALT [Catalytic activity/Vol] 15 U/L 0 - 32 U/L [facility] Anion gap [Moles/Vol] 12 mmol/L 7 - 16 mmol/L [facility] AST [Catalytic activity/Vol] 15 U/L 0 - 31 U/L [facility] Bilirubin [Mass/Vol] 0.2 mg/dL 0.0 - 1 .2 mg/dL [facility] Calcium [Mass/Vol] 9.4 mg/dL 8.6 - 10. 2 mg/dL [facility] Chloride [Moles/Vol] 95 mmol/L Low 98 - 10 7 mmol/L [facility] CO2 [Moles/Vol] 27 mmol/L 22 - 29 mmol/L [facility] Creatinine [Mass/Vol] 0.8 mg/dL 0.50 - 1.00 mg/dL [facility] GFR/1.73 sq M.predicted MDRD (S/P/Bld) [Vol rate/Area] - PINF [facility] Comment on above: These results are not intended for use in patients <18 years of age. eGFR results are calculated without a race factor using the 2020 CKD-EPI equation. Careful clinical correlation is recommended, particularly when comparing to results calculated using previous equations. The CKD-EPI equation is less accurate in patients with extremes of muscle mass, extra-renal metabolism of creatine, excessive creatine ingestion, or following therapy that affects renal tubular secretion. Glucose [Mass/Vol] 96 mg/dL 74 - 99 mg/dL [facility] Interpretation and review of laboratory results Abnormal [facility] Potassium [Moles/Vol] 3.5 mmol/L 3.5 - 5.0 mmol/L [facility] Protein [Mass/Vol] 8.0 g/dL 6.4 - 8.3 g/dL [facility] Sodium [Moles/Vol] 134 mmol/L 132 - 146 mmol/L [facility] Urea nitrogen [Mass/Vol] 8 mg/dL 6 - 20 mg/dL [facility] Lactate, Sepsison 12-13-2023 Lactate (BldV) [Moles/Vol] 1.2 mmol/L 0.5 - 1.9 mmol/L [facility] Lactic Acid, Sepsis 1.2 mmol/L Normal 0.5-1.9 [facility] Comment on above: Performed By: #### P RCAL #### [facility] [address] [place] [address] Community Service Aide: Swapnil Landis MD Magnesiumon 12-13-2023 Magnesium [Mass/Vol] 1.8 mg/dL 1.6 - 2 .6 mg/dL [facility] Magnesium [Mass/Vol] 1.8 mg/dL Normal 1.6-2.6 [facility] Comment on above: Performed By: #### P RCAL #### [address] [address] Community Service Aide: Swapnil Landis MD No Panel Informationon 12-13 [facility] Urinalysis w/ Microon 2023 Urine RBC's 0 TO 2 Normal R02 [facility] Comment on above: Performed By: #### P RCAL #### [address] [address] Community Service Aide: Swapnil Landis MD Urine WBC's 0 TO 5 Normal R05 [facility] Comment on above: Performed By: #### P RCAL #### [address] [address] Community Service Aide: Swapnil Landis MD Bilirubin, SemiQt,Ur Negative Normal NEG [facility] Comment on above: Performed By: #### P RCAL #### [address] [address] Community Service Aide: Swapnil Landis MD Blood, Urine Negative Normal NEG [facility] Comment on above: Performed By: #### P RCAL #### [address] [address] Community Service Aide: Swapnil Landis MD Clarity (U) Clear Normal CLEAR [facility] Comment on above: Performed By: #### P RCAL #### [address] [address] Community Service Aide: Swapnil Landis MD Color (U) Yellow Normal YEL [facility] Comment on above: Performed By: #### P RCAL #### [address] [place] [address] Community Service Aide: Swapnil Landis MD Glucose Ql (U) Negative Normal NEG [facility] Comment on above: Performed By: #### P RCAL #### [address] [place] [address] Community Service Aide: Swapnil Landis MD Ketones Ql (U) Negative Normal NEG [facility] Comment on above: Performed By: #### P RCAL #### [address] [place] [address] Community Service Aide: Swapnil Landis MD Leukocyte esterase Test strip Ql (U) Negative Normal NEG [facility] Comment on above: Performed By: #### P RCAL #### [address] [place] [address] Community Service Aide: Swapnil Landis MD Nitrite,Ur Negative Normal NEG [facility] Comment on above: Performed By: #### P RCAL #### [address] [place] [address] Community Service Aide: Swapnil Landis MD PH,Ur 6.5 Normal 5.0-9.0 [facility] Comment on above: Performed By: #### P RCAL #### [address] [place] [address] Community Service Aide: Swapnil Landis MD Protein Ql (U) Negative Normal NEG [facility] Comment on above: Performed By: #### P RCAL #### [address] [place] [address] Community Service Aide: Swapnil Landis MD Spec. Volcano,Ur <1.005 Low 1.005-1.030 [facility] Comment on above: Performed By: #### P RCAL #### [address] [id number] Community Service Aide: Swapnil Landis MD Urobilinogen,Ur 0.2 EU/dL Normal 0.0-1.0 [facility] Comment on above: Performed By: #### P RCAL #### [address] [id number] Community Service Aide: Swapnil Landis MD Urinalysis with Microscopico n 12-13-2023 Bilirubin Ql (U) Negative NEGATIVE [facility] Clarity (U) Clear Clear [facility] Color (U) Yellow Yellow [facility] Glucose Test strip (U) [Mass/Vol] Negative NEGATIVE mg/dL [facility] Hemoglobin Auto test strip Ql (U) Negative NEGATIVE [facility] Interpretation and review of laboratory results Abnormal [facility] Ketones (U) [Mass/Vol] Negative NEGATIVE mg/dL [facility] Leukocyte esterase Test strip Ql (U) Negative NEGATIVE [facility] Nitrite Ql (U) Negative NEGATIVE [facility] pH (U) 6.5 [pH] 5.0 - 9.0 [facility] Protein (U) [Mass/Vol] Negative NEGATIVE mg/dL [facility] RBC LM.HPF (Urine sed) [#/Area] 0 TO 2 0 TO 2 /HPF [facility] Specific gravity (U) [Rel density] Low 1.005 - 1.030 [facility] Urobilinogen Qn (U) 0.2 {Lakesha'U}/dL 0. 0 - 1.0 EU/dL [facility] WBC LM.HPF (Urine sed) [#/Area] 0 TO 5 0 TO 5 /HPF [facility] CBC with Diffon 12-08-2023 Abs. Basophil 0.05 k/uL Normal 0.00-0.20 [facility] Comment on above: Performed By: #### B MP #### [place] [address] Community Service Aide: Swapnil Landis MD Abs.Imm.Granulocyte 0.05 k/uL Normal 0.00-0.58 [facility] Comment on above: Performed By: #### B MP #### [place] [address] Community Service Aide: Swapnil Landis MD Abs.Neutrophil (Seg) 4.75 k/uL Normal 1.80-7.30 [facility] Comment on above: Performed By: #### B MP #### [place] [address] Community Service Aide: Swapnil Landis MD Basophils/100 WBC (Bld) 1 % Normal 0.0-2.0 [facility] Comment on above: Performed By: #### B MP #### [place] [address] Community Service Aide: Swapnil Landis MD Eosinophils (Bld) [#/Vol] 0.23 10*3/uL Normal 0.05-0.50 [facility] Comment on above: Performed By: #### B MP #### [place] [address] Community Service Aide: Swapnil Landis MD Eosinophils/100 WBC (Bld) 3 % Normal 0-6 [facility] Comment on above: Performed By: #### B MP #### [place] [address] Community Service Aide: Swapnil Landis MD Erythrocyte distribution width (RBC) [Ratio] 14.3 % Normal 11.5-15.0 [facility] Comment on above: Performed By: #### B MP #### [place] [address] Community Service Aide: Swapnil Landis MD Hematocrit (Bld) [Volume fraction] 40.8 % Normal 34.0-48.0 [facility] Comment on above: Performed By: #### B MP #### [place] [address] Community Service Aide: Swapnil Landis MD Hemoglobin (Bld) [Mass/Vol] 13.9 g/dL Normal 11.5-15.5 [facility] Comment on above: Performed By: #### B MP #### [place] [address] Community Service Aide: Swapnil Landis MD Immature granulocytes/100 WBC (Bld) 1 % Normal 0.0-5.0 [facility] Comment on above: Performed By: #### B MP #### [place] [address] Community Service Aide: Swapnil Landis MD Lymphocytes (Bld) [#/Vol] 2.81 10*3/uL Normal 1.50-4.00 [facility] Comment on above: Performed By: #### B MP #### [place] [address] Community Service Aide: Swapnil Landis MD Lymphocytes/100 WBC (Bld) 33 % Normal 20.0-42.0 [facility] Comment on above: Performed By: #### B MP #### [place] [address] Community Service Aide: Swapnil Landis MD MCH (RBC) [Entitic mass] 29.7 pg Normal 26.0-35.0 [facility] Comment on above: Performed By: #### B MP #### [place] [address] Community Service Aide: Swapnil Landis MD MCHC (RBC) [Mass/Vol] 34.1 g/dL Normal 32.0-34.5 [facility] Comment on above: Performed By: #### B MP #### [place] [address] Community Service Aide: Swapnil Landis MD MCV (RBC) [Entitic vol] 87.2 fL Normal 80.0-99.9 [facility] Comment on above: Performed By: #### B MP #### [place] [address] Community Service Aide: Swapnil Landis MD Monocytes (Bld) [#/Vol] 0.52 10*3/uL Normal 0.10-0.95 [facility] Comment on above: Performed By: #### B MP #### [place] [address] Community Service Aide: Swapnil Landis MD Monocytes/100 WBC (Bld) 6 % Normal 2.0-12.0 [facility] Comment on above: Performed By: #### B MP #### [place] [address] Community Service Aide: Swapnil Landis MD Neutrophil (Seg) 57 % Normal 43.0-80.0 [facility] Comment on above: Performed By: #### B MP #### [place] [address] Community Service Aide: Swapnil Landis MD Platelet mean volume (Bld) [Entitic vol] 9.7 fL Normal 7.0-12.0 [facility] Comment on above: Performed By: #### B MP #### [address] [place] [address] Community Service Aide: Swapnil Landis MD Platelets (Bld) [#/Vol] 386 10*3/uL Normal 130-450 [facility] Comment on above: Performed By: #### B MP #### [address] [place] [address] Community Service Aide: Swapnil Landis MD RBC (Bld) [#/Vol] 4.68 10*6/uL Normal 3.50-5.50 [facility] Comment on above: Performed By: #### B MP #### [address] [place] [address] Community Service Aide: Swapnil Landis MD WBC (Bld) [#/Vol] 8.4 10*3/uL Normal 4.5-11.5 [facility] Comment on above: Performed By: #### B MP #### [address] [place] [address] Community Service Aide: Swapnil Landis MD CTA ABDOMINAL AORTA W BILAT RUNOFF W CONTRASTon 12-08-2023 CTA ABDOMINAL AORTA W BILAT RUNOFF W CONTRAST EXAMINATION: CTA AORTA RUNOFF WITH CONTRAST12/08/2023 7:41 pm TECHNIQUE: Multiplanar and 3D reconstructed images were generated, reviewed and manipulated on a separate workstation. This exam was performed according to our departmental dose-optimization program which includes automated exposure control, adjustment of the mA and/or kVp according to patient size and/or use of iterative reconstruction technique where applicable. DEFINITIONS Stenosis Severity Grading: Normal: 0% stenosis Minimal: <25% stenosis Mild: 25-49% stenosis Moderate: 50-69% stenosis Severe: 70-99% stenosis Occluded: 100% Abbreviations: Ao: Aorta; CA: Celiac artery; RA: Renal artery; SMA: Superior mesenteric artery; BEN: Inferior mesenteric artery; ANABEL: Common iliac artery; EIA: External iliac artery; IIA: Internal iliac artery; COUNTY HOME DEMONSTRATOR: Common femoral artery; PFA: Profunda femoris artery; SFA: Superficial femoral artery; TPT: Tibioperoneal trunk; BUCK: Anterior tibial artery; [employer] ADVISOR: Posterior tibial artery; Pop: Popliteal artery; Per: Peroneal; RT: Right; LT: Left COMPARISON: None HISTORY: ORDERING SYSTEM PROVIDED HISTORY: right foot pain, toe discoloration TECHNOLOGIST PROVIDED HISTORY: Reason for exam:->right foot pain, toe discoloration Additional Contrast?->1 What reading provider will be dictating this exam?->CRC FINDINGS: VASCULAR: Suprarenal Ao: No atherosclerosis. No aneurysm. CA: No severe stenosis. SMA: No severe stenosis. RT RA: Dual renal arteries.No severe stenosis. LT RA: Single renal artery. No severe stenosis. Infrarenal Ao: No atherosclerosis. No aneurysm. BEN: No severe stenosis. RIGHT ANABEL: No severe stenosis. There is a 6 mm long thrombus in the right common iliac artery proximally just beyond its origin EIA: No severe stenosis. [employer]ON[employer]ATOR: No severe stenosis. PFA: No severe stenosis. SFA: No severe stenosis. Pop: No severe stenosis. BUCK: Runoff to foot. The right dorsalis pedis artery is not visualized beyond the midfoot and may be occluded distally. There is flow however within the medial tarsal artery into the foot TPT: No severe stenosis. Per: The peroneal artery is patent to the level of the mid calf there is a segment of missing peroneal artery in the mid calf raising the possibility of a tiny emboli but there is flow within the peroneal artery beyond this region which suggests a partial embolus. [employer] ADVISOR: Runoff to foot. LEFT ANABEL: No severe stenosis. EIA: No severe stenosis. COUNTY HOME DEMONSTRATOR: No severe stenosis. PFA: No severe stenosis. SFA: No severe stenosis. Pop: There is a filling defect within the left popliteal artery extending into the tibioperoneal trunk. BUCK: Runoff to foot. The dorsalis pedis artery is patent TPT: No severe stenosis. Per: Runoff to ankle. [employer] ADVISOR: Runoff to foot. NONVASCULAR: LUNG BASES: Unremarkable. LIVER:Unremarkable. BILIARY: No extra or intrahepatic duct dilatation. GALLBLADDER: Unremarkable. SPLEEN: Not enlarged. No lesions. RT ADRENAL: Unremarkable. LT ADRENAL: Unremarkable. PANCREAS: Unremarkable. ASCITES: None RT KIDNEY: Normal enhancement. No hydronephrosis. LT KIDNEY: Normal enhancement. No hydronephrosis. URINARY BLADDER: Unremarkable. UTERUS: Present. No adnexal mass. GI: No obstruction. No inflammatory change. No free air. The appendix appears unremarkable LYMPHATIC: No abdominal or pelvic adenopathy. BONES: No suspicious osseous lesion. IMPRESSION: ARTERIAL: 1. RT: There is a linear area of embolus in the right common iliac artery and there is nonvisualization of a short segment of the peroneal artery that may be related to distal emboli 2. LT: There is a filling defect within the left tibioperoneal trunk felt to represent emboli but there is flow within the runoff arteries beyond this region. 3. Ao: No AAA. NON-ARTERIAL: 1. No acute finding. Interpreted by: Neo Bolton MD Signed by: Neo Bolton MD 12/08/23 Final result Normal [facility] Comment on above: Order Comment: Reaso n for exam:->right foot pain, toe discolorationAdditional Contrast?->1What reading provider will be dictating this exam?->CRC Comp Metabolic Pr/rfx MGon 0 2- Albumin [Mass/Vol] 4.2 g/dL Normal 3.5-5.2 [facility] Comment on above: Performed By: #### B MP #### [address] [address] Community Service Aide: Swapnil Landis MD Alkaline Phos 109 U/L High 35-104 [facility] Comment on above: Performed By: #### B MP #### [address] [address] Community Service Aide: Swapnil Landis MD ALT [Catalytic activity/Vol] 20 U/L Normal 0-32 [facility] Comment on above: Performed By: #### B MP #### [address] [address] Community Service Aide: Swapnil Landis MD Anion gap [Moles/Vol] 10 mmol/L Normal 7-16 [facility] Comment on above: Performed By: #### B MP #### [place] [address] Community Service Aide: Swapnil Landis MD AST [Catalytic activity/Vol] 16 U/L Normal 0-31 [facility] Comment on above: Performed By: #### B MP #### [place] [address] Community Service Aide: Swapnil Landis MD Bilirubin [Mass/Vol] mg/dL Normal 0.0-1.2 [facility] Comment on above: Performed By: #### B MP #### [place] [address] Community Service Aide: Swapnil Landis MD Calcium [Mass/Vol] 9.7 mg/dL Normal 8.6-10.2 [facility] Comment on above: Performed By: #### B MP #### [address] [address] Community Service Aide: Swapnil Landis MD Chloride [Moles/Vol] 95 mmol/L Low 98-107 [facility] Comment on above: Performed By: #### B MP #### [address] [address] Community Service Aide: Swapnil Landis MD CO2 [Moles/Vol] 28 mmol/L Normal 22-29 [facility] Comment on above: Performed By: #### B MP #### [address] [address] Community Service Aide: Swapnil Landis MD Creatinine [Mass/Vol] 0.9 mg/dL Normal 0.50-1.00 [facility] Comment on above: Performed By: #### B MP #### [address] [address] Community Service Aide: Swapnil Landis MD GFR/1.73 sq M.predicted among non-blacks MDRD (S/P/Bld) [Vol rate/Area] mL/min/{1.73_m2} Normal >60 [facility] Comment on above: Result Comment: These results are not intended for use in patients <18 years of age. eGFR results are calculated without a race factor using the 2020 CKD-EPI equation. Careful clinical correlation is recommended, particularly when comparing to results calculated using previous equations. The CKD-EPI equation is less accurate in patients with extremes of muscle mass, extra-renal metabolism of creatine, excessive creatine ingestion, or following therapy that affects renal tubular secretion. Performed By: #### B MP #### [address] [address] Community Service Aide: Swapnil Landis MD Glucose [Mass/Vol] 105 mg/dL High 74-99 [facility] Comment on above: Performed By: #### B MP #### [address] [address] Community Service Aide: Swapnil Landis MD Potassium [Moles/Vol] 4.0 mmol/L Normal 3.5-5.0 [facility] Comment on above: Performed By: #### B MP #### [address] [address] Community Service Aide: Swapnil Landis MD Protein [Mass/Vol] 8.0 g/dL Normal 6.4-8.3 [facility] Comment on above: Performed By: #### B MP #### [address] [address] Community Service Aide: Swapnil Landis MD Sodium [Moles/Vol] 133 mmol/L Normal 132-146 [facility] Comment on above: Performed By: #### B MP #### [address] [address] Community Service Aide: Swapnil Landis MD Urea nitrogen [Mass/Vol] 10 mg/dL Normal 6-20 [facility] Comment on above: Performed By: #### B MP #### [address] [address] Community Service Aide: Swapnil Landis MD Creatine Kinaseon 12-08-2023 CK [Catalytic activity/Vol] 199 U/L High 20-180 [facility] Comment on above: Performed By: #### B MP #### [address] [address] Community Service Aide: Swapnil Landis MD Influenza A and Bon 12-08-19 24 Influenza A by MOL Not detected Normal [facility] Comment on above: Result Comment: Meth odology: Isothermal Nucleic Acid Amplification Performed By: #### P RCAL #### [address] [address] Community Service Aide: Swapnil Landis MD Influenza B by MOL Not detected Normal [facility] Comment on above: Result Comment: Meth odology: Isothermal Nucleic Acid Amplification Performed By: #### P RCAL #### [address] [address] Community Service Aide: Swapnil Landis MD [id number] 12-08-2023 SARS-CoV-2 (COVID-19) RNA CHETAN+probe Ql (Unsp spec) Not detected Normal [facility] Comment on above: Result Comment: Rapid NATT: Negative results should be treated as presumptive and, if inconsistent with clinical signs and symptoms or necessary for patient management, should be tested with an alternative molecular assay. Negative results do not preclude SARS-CoV-2 infection and should not be used as the sole basis for patient management decisions. This test has been authorized by the FDA under an Emergency Use Authorization (EUA) for use by authorized laboratories. Fact sheet for Healthcare Providers: https://www.fda.gov/media/910982/download Fact sheet for Patients: https://www.fda.gov/media/475547/download Methodology: Isothermal Nucleic Acid Amplification Performed By: #### B MP #### [address] [id number] Community Service Aide: Swapnil Landis MD VAS DUP LOWER EXTREMITY VENO US RIGHTon 12-08-2023 VAS DUP LOWER EXTREMITY VENOUS RIGHT EXAMINATION DUPLEX VENOUS ULTRASOUND OF THE RIGHT LOWER EXTREMITY 12/08/2023 7 TECHNIQUE Duplex ultrasound using B-mode/fregoso scaled imaging and Doppler spectral analysis and color flow was obtained of the deep venous structures of the right extremity. COMPARISON 12/01/2023 HISTORY ORDERING SYSTEM PROVIDED HISTORY FINDINGS The visualized veins of the right lower extremity are patent and free of echogenic thrombus. The veins demonstrate good compressibility with normal color flow study and spectral analysis. No evidence of DVT in the right lower extremity. Normal [facility] Basic Metabolic Profon 12-01 Anion gap [Moles/Vol] 11 mmol/L Normal 7-16 [facility] Comment on above: Performed By: #### B MP, CK, MG, CBCWD #### [address] [address] Community Service Aide: Swapinl Landis MD Calcium [Mass/Vol] 9.8 mg/dL Normal 8.6-10.2 [facility] Comment on above: Performed By: #### B MP, CK, MG, CBCWD #### [address] [address] Community Service Aide: Swapnil Landis MD Chloride [Moles/Vol] 95 mmol/L Low 98-107 [facility] Comment on above: Performed By: #### B MP, CK, MG, CBCWD #### [address] [place] [address] Community Service Aide: Swapnil Landis MD CO2 [Moles/Vol] 30 mmol/L High 22-29 [facility] Comment on above: Performed By: #### B MP, CK, MG, CBCWD #### [address] [place] [address] Community Service Aide: Swapnil Landis MD Creatinine [Mass/Vol] 0.8 mg/dL Normal 0.50-1.00 [facility] Comment on above: Performed By: #### B MP, CK, MG, CBCWD #### [address] [place] [address] Community Service Aide: Swapnil Landis MD GFR/1.73 sq M.predicted among non-blacks MDRD (S/P/Bld) [Vol rate/Area] mL/min/{1.73_m2} Normal >60 [facility] Comment on above: Result Comment: These results are not intended for use in patients <18 years of age. eGFR results are calculated without a race factor using the 2020 CKD-EPI equation. Careful clinical correlation is recommended, particularly when comparing to results calculated using previous equations. The CKD-EPI equation is less accurate in patients with extremes of muscle mass, extra-renal metabolism of creatine, excessive creatine ingestion, or following therapy that affects renal tubular secretion. Performed By: #### B MP, CK, MG, CBCWD #### [address] [place] [address] Community Service Aide: Swapnil Landis MD Glucose [Mass/Vol] 105 mg/dL High 74-99 [facility] Comment on above: Performed By: #### B MP, CK, MG, CBCWD #### [address] [place] [address] Community Service Aide: Swapnil Landis MD Potassium [Moles/Vol] 4.1 mmol/L Normal 3.5-5.0 [facility] Comment on above: Performed By: #### B MP, CK, MG, CBCWD #### [place] [address] Community Service Aide: Swapnil Landis MD Sodium [Moles/Vol] 136 mmol/L Normal 132-146 [facility] Comment on above: Performed By: #### B MP, CK, MG, CBCWD #### [place] [address] Community Service Aide: Swapnil Landis MD Urea nitrogen [Mass/Vol] 10 mg/dL Normal 6-20 [facility] Comment on above: Performed By: #### B MP, CK, MG, CBCWD #### [place] [address] Community Service Aide: Swapnil Landis MD CBC with Diffon 12-01-2023 Abs. Basophil 0.09 k/uL Normal 0.00-0.20 [facility] Comment on above: Performed By: #### B MP, CK, MG, CBCWD #### [place] [address] Community Service Aide: Swapnil Landis MD Abs.Imm.Granulocyte 0.05 k/uL Normal 0.00-0.58 [facility] Comment on above: Performed By: #### B MP, CK, MG, CBCWD #### [place] [address] Community Service Aide: Swapnil Landis MD Abs.Neutrophil (Seg) 5.78 k/uL Normal 1.80-7.30 [facility] [facility] Comment on above: Performed By: #### B MP, CK, MG, CBCWD #### [address] [address] Community Service Aide: Swapnil Landis MD Basophils/100 WBC (Bld) 1 % Normal 0.0-2.0 [facility] Comment on above: Performed By: #### B MP, CK, MG, CBCWD #### [place] [address] Community Service Aide: Swapnil Landis MD Eosinophils (Bld) [#/Vol] 0.18 10*3/uL Normal 0.05-0.50 [facility] Comment on above: Performed By: #### B MP, CK, MG, CBCWD #### [place] [address] Community Service Aide: Swapnil Landis MD Eosinophils/100 WBC (Bld) 2 % Normal 0-6 [facility] Comment on above: Performed By: #### B MP, CK, MG, CBCWD #### [place] [address] Community Service Aide: Swapnil Landis MD Erythrocyte distribution width (RBC) [Ratio] 13.8 % Normal 11.5-15.0 [facility] Comment on above: Performed By: #### B MP, CK, MG, CBCWD #### [place] [address] Community Service Aide: Swapnil Landis MD Hematocrit (Bld) [Volume fraction] 41.2 % Normal 34.0-48.0 [facility] Comment on above: Performed By: #### B MP, CK, MG, CBCWD #### [place] [address] Community Service Aide: Swapnil Landis MD Hemoglobin (Bld) [Mass/Vol] 13.9 g/dL Normal 11.5-15.5 [facility] Comment on above: Performed By: #### B MP, CK, MG, CBCWD #### [address] [address] Community Service Aide: Swapnil Landis MD Immature granulocytes/100 WBC (Bld) 1 % Normal 0.0-5.0 [facility] Comment on above: Performed By: #### B MP, CK, MG, CBCWD #### [place] [address] Community Service Aide: Swapnil Landis MD Lymphocytes (Bld) [#/Vol] 3.62 10*3/uL Normal 1.50-4.00 [facility] Comment on above: Performed By: #### B MP, CK, MG, CBCWD #### [place] [address] Community Service Aide: Swapnil Landis MD Lymphocytes/100 WBC (Bld) 34 % Normal 20.0-42.0 [facility] Comment on above: Performed By: #### B MP, CK, MG, CBCWD #### [place] [address] Community Service Aide: Swapnil Landis MD MCH (RBC) [Entitic mass] 29.1 pg Normal 26.0-35.0 [facility] Comment on above: Performed By: #### B MP, CK, MG, CBCWD #### [address] [address] Community Service Aide: Swapnil Landis MD MCHC (RBC) [Mass/Vol] 33.7 g/dL Normal 32.0-34.5 [facility] Comment on above: Performed By: #### B MP, CK, MG, CBCWD #### [address] [address] Community Service Aide: Swapnil Landis MD MCV (RBC) [Entitic vol] 86.4 fL Normal 80.0-99.9 [facility] Comment on above: Performed By: #### B MP, CK, MG, CBCWD #### [place] [address] Community Service Aide: Swapnil Landis MD Monocytes (Bld) [#/Vol] 0.82 10*3/uL Normal 0.10-0.95 [facility] Comment on above: Performed By: #### B MP, CK, MG, CBCWD #### [place] [address] Community Service Aide: Swapnil Landis MD Monocytes/100 WBC (Bld) 8 % Normal 2.0-12.0 [facility] Comment on above: Performed By: #### B MP, CK, MG, CBCWD #### [place] [address] Community Service Aide: Swapnil Landis MD Neutrophil (Seg) 55 % Normal 43.0-80.0 [facility] Comment on above: Performed By: #### B MP, CK, MG, CBCWD #### [place] [address] Community Service Aide: Swapnil Landis MD Platelet mean volume (Bld) [Entitic vol] 10.1 fL Normal 7.0-12.0 [facility] Comment on above: Performed By: #### B MP, CK, MG, CBCWD #### [place] [address] Community Service Aide: Swapnil Landis MD Platelets (Bld) [#/Vol] 312 10*3/uL Normal 130-450 [facility] Comment on above: Performed By: #### B MP, CK, MG, CBCWD #### [address] [place] [address] Community Service Aide: Swapnil Landis MD RBC (Bld) [#/Vol] 4.77 10*6/uL Normal 3.50-5.50 [facility] Comment on above: Performed By: #### B MP, CK, MG, CBCWD #### [address] [place] [address] Community Service Aide: Swapnil Landis MD WBC (Bld) [#/Vol] 10.5 10*3/uL Normal 4.5-11.5 [facility] Comment on above: Performed By: #### B MP, CK, MG, CBCWD #### [address] [place] [address] Community Service Aide: Swapnil Landis MD Creatine Kinaseon 12-01-2023 CK [Catalytic activity/Vol] 63 U/L Normal 20-180 [facility] Comment on above: Performed By: #### B MP, CK, MG, CBCWD #### [address] [place] [address] Community Service Aide: Swapnil Landis MD Magnesiumon 12-01-2023 Magnesium [Mass/Vol] 1.7 mg/dL Normal 1.6-2.6 [facility] Comment on above: Performed By: #### B MP, CK, MG, CBCWD #### [address] [place] [address] Community Service Aide: Swapnil Landis MD VAS DUP LOWER EXTREMITY VENO US BILATERALon 12-01-2023 VAS DUP LOWER EXTREMITY VENOUS BILATERAL EXAMINATION DUPLEX VENOUS ULTRASOUND OF THE BILATERAL LOWER EXTREMITIES12/01/2023 8 TECHNIQUE Duplex ultrasound using B-mode/fregoso scaled imaging and Doppler spectral analysis and color flow was obtained of the deep venous structures of the bilateral extremities. COMPARISON None. HISTORY ORDERING SYSTEM PROVIDED HISTORY FINDINGS The visualized veins of the bilateral lower extremities are patent and free of echogenic thrombus. The veins demonstrate good compressibility with normal color flow study and spectral analysis. No evidence of DVT in either lower extremity. Normal [facility] EKG 12 LeadOrdered By: Chase Tatum on 10-26-2023 Atrial Rate 82 BPM [facility] Work Phone: P Crucible 75 degrees [facility] Work Phone: P-R Interval 160 ms [facility] Work Phone: Q-T Interval 402 ms [facility] Work Phone: QRS Duration 94 ms [facility] Work Phone: QTc Calculation (Bazett) 469 ms [facility] Work Phone: R Crucible 67 degrees [facility] Work Phone: T Crucible 46 degrees [facility] Work Phone: Ventricular Rate 82 BPM [facility] [employer] Work Phone: [facility] Work Phone: EKG 12 Leadon 10-26-2023 Normal sinus rhythm Normal ECG No previous ECGs available Confirmed by Luke Tatum ([id number]) on 10/26/2023 5:38:55 PM [facility] M[facility] Luke Tatum MD - 10/26/2023 Normal sinus rhythm Normal ECG No previous ECGs available Confirmed by Luke Tatum ([id number]) on 10/26/2023 5:38:55 PM [facility] CBC with Auto Differentialon 10-25-2023 Basophils (Bld) [#/Vol] 0.07 10*3/uL [facility] Basophils/100 WBC (Bld) 1 % 0.0 - 2.0 % [facility] Eosinophils (Bld) [#/Vol] 0.20 10*3/uL [facility] Eosinophils/100 WBC (Bld) 2 % 0 - 6 % [facility] Erythrocyte distribution width (RBC) [Ratio] 13.3 % 11.5 - 15.0 % [facility] Hematocrit (Bld) [Volume fraction] 40.5 % 34.0 - 48.0 % [facility] Hemoglobin (Bld) [Mass/Vol] 13.5 g/dL 11.5 - 15.5 g/dL [facility] Immature granulocytes (Bld) [#/Vol] 0.03 10*3/uL [facility] Immature granulocytes/100 WBC (Bld) 0 % 0.0 - 5.0 % [facility] Lymphocytes/100 WBC (Bld) 30 % 20.0 - 42.0 % [facility] Lymphocytes/100 WBC (Bld) 2.64 % [facility] MCH (RBC) [Entitic mass] 28.9 pg 26.0 - 35.0 pg [facility] MCHC (RBC) [Mass/Vol] 33.3 g/dL 32.0 - 34.5 g/dL [facility] MCV (RBC) [Entitic vol] 86.7 fL 80.0 - 99.9 fL [facility] Monocytes/100 WBC (Bld) 6 % 2.0 - 12.0 % [facility] Monocytes/100 WBC (Bld) 0.55 % [facility] Neutrophils/100 WBC (Bld) 60 % 43.0 - 80.0 % [facility] Platelet mean volume (Bld) [Entitic vol] 9.6 fL 7.0 - 12.0 fL [facility] Platelets (Bld) [#/Vol] 377 10*3/uL [facility] RBC (Bld) [#/Vol] 4.67 10*6/uL 3.50 - 5.5 0 m/uL [facility] Segmented neutrophils/100 WBC (Bld) 5.29 % [facility] WBC other (Bld) [#/Vol] 8.8 [facility] CBC with Diffon 10-25-2023 Abs. Basophil 0.07 k/uL Normal 0.00-0.20 [facility] Comment on above: Performed By: #### E DTOX, CBCWD, CMPX, MG #### [address] [place] [address] Community Service Aide: Swapnil Landis MD Abs.Imm.Granulocyte 0.03 k/uL Normal 0.00-0.58 [facility] Comment on above: Performed By: #### E DTOX, CBCWD, CMPX, MG #### [place] [address] Community Service Aide: Swapnil Landis MD Abs.Neutrophil (Seg) 5.29 k/uL Normal 1.80-7.30 [facility] Comment on above: Performed By: #### E DTOX, CBCWD, CMPX, MG #### [place] [address] Community Service Aide: Swapnil Landis MD Basophils/100 WBC (Bld) 1 % Normal 0.0-2.0 [facility] Comment on above: Performed By: #### E DTOX, CBCWD, CMPX, MG #### [place] [address] Community Service Aide: Swapnil Landis MD Eosinophils (Bld) [#/Vol] 0.20 10*3/uL Normal 0.05-0.50 [facility] Comment on above: Performed By: #### E DTOX, CBCWD, CMPX, MG #### [place] [address] Community Service Aide: Swapnil Landis MD Eosinophils/100 WBC (Bld) 2 % Normal 0-6 [facility] Comment on above: Performed By: #### E DTOX, CBCWD, CMPX, MG #### [address] [place] [address] Community Service Aide: Swapnil Landis MD Erythrocyte distribution width (RBC) [Ratio] 13.3 % Normal 11.5-15.0 [facility] Comment on above: Performed By: #### E DTOX, CBCWD, CMPX, MG #### [place] [address] Community Service Aide: Swapnil Landis MD Hematocrit (Bld) [Volume fraction] 40.5 % Normal 34.0-48.0 [facility] Comment on above: Performed By: #### E DTOX, CBCWD, CMPX, MG #### [place] [address] Community Service Aide: Swapnil Landis MD Hemoglobin (Bld) [Mass/Vol] 13.5 g/dL Normal 11.5-15.5 [facility] Comment on above: Performed By: #### E DTOX, CBCWD, CMPX, MG #### [place] [address] Community Service Aide: Swapnil Landis MD Immature granulocytes/100 WBC (Bld) 0 % Normal 0.0-5.0 [facility] Comment on above: Performed By: #### E DTOX, CBCWD, CMPX, MG #### [place] [address] Community Service Aide: Swapnil Landis MD Lymphocytes (Bld) [#/Vol] 2.64 10*3/uL Normal 1.50-4.00 [facility] Comment on above: Performed By: #### E DTOX, CBCWD, CMPX, MG #### [place] [address] Community Service Aide: Swapnil Landis MD Lymphocytes/100 WBC (Bld) 30 % Normal 20.0-42.0 [facility] Comment on above: Performed By: #### E DTOX, CBCWD, CMPX, MG #### [place] [address] Community Service Aide: Swapnil Landis MD MCH (RBC) [Entitic mass] 28.9 pg Normal 26.0-35.0 [facility] Comment on above: Performed By: #### E DTOX, CBCWD, CMPX, MG #### [place] [address] Community Service Aide: Swapnil Landis MD MCHC (RBC) [Mass/Vol] 33.3 g/dL Normal 32.0-34.5 [facility] Comment on above: Performed By: #### E DTOX, CBCWD, CMPX, MG #### [place] [address] Community Service Aide: Swapnil Landis MD MCV (RBC) [Entitic vol] 86.7 fL Normal 80.0-99.9 [facility] Comment on above: Performed By: #### E DTOX, CBCWD, CMPX, MG #### [address] [place] [address] Community Service Aide: Swapnil Landis MD Monocytes (Bld) [#/Vol] 0.55 10*3/uL Normal 0.10-0.95 [facility] Comment on above: Performed By: #### E DTOX, CBCWD, CMPX, MG #### [place] [address] Community Service Aide: Swapnil Landis MD Monocytes/100 WBC (Bld) 6 % Normal 2.0-12.0 [facility] Comment on above: Performed By: #### E DTOX, CBCWD, CMPX, MG #### [address] [place] [address] Community Service Aide: Swapnil Landis MD Neutrophil (Seg) 60 % Normal 43.0-80.0 [facility] Comment on above: Performed By: #### E DTOX, CBCWD, CMPX, MG #### [address] [place] [address] Community Service Aide: Swapnil Landis MD Platelet mean volume (Bld) [Entitic vol] 9.6 fL Normal 7.0-12.0 [facility] Comment on above: Performed By: #### E DTOX, CBCWD, CMPX, MG #### [address] [place] [address] Community Service Aide: Swapnil Landis MD Platelets (Bld) [#/Vol] 377 10*3/uL Normal 130-450 [facility] Comment on above: Performed By: #### E DTOX, CBCWD, CMPX, MG #### [address] [place] [address] Community Service Aide: Swapnil Landis MD RBC (Bld) [#/Vol] 4.67 10*6/uL Normal 3.50-5.50 [facility] Comment on above: Performed By: #### E DTOX, CBCWD, CMPX, MG #### [address] [place] [address] Community Service Aide: Swapnil Landis MD WBC (Bld) [#/Vol] 8.8 10*3/uL Normal 4.5-11.5 [facility] Comment on above: Performed By: #### E DTOX, CBCWD, CMPX, MG #### [address] [place] [address] Community Service Aide: Swapnil Landis MD Comp Metabolic Pr/rfx MGon 1 12-26-2022 Albumin [Mass/Vol] 4.0 g/dL Normal 3.5-5.2 [facility] Comment on above: Performed By: #### E DTOX, CBCWD, CMPX, MG #### [address] [place] [address] Community Service Aide: Swapnil Landis MD Alkaline Phos 105 U/L High 35-104 [facility] Comment on above: Performed By: #### E DTOX, CBCWD, CMPX, MG #### [place] [address] Community Service Aide: Swapnil Landis MD ALT [Catalytic activity/Vol] 14 U/L Normal 0-32 [facility] Comment on above: Performed By: #### E DTOX, CBCWD, CMPX, MG #### [place] [address] Community Service Aide: Swapnil Landis MD Anion gap [Moles/Vol] 12 mmol/L Normal 7-16 [facility] Comment on above: Performed By: #### E DTOX, CBCWD, CMPX, MG #### [address] [place] [address] Community Service Aide: Swapnil Landis MD AST [Catalytic activity/Vol] 15 U/L Normal 0-31 [facility] Comment on above: Performed By: #### E DTOX, CBCWD, CMPX, MG #### [address] [place] [address] Community Service Aide: Swapnil Landis MD Bilirubin [Mass/Vol] 0.2 mg/dL Normal 0.0-1.2 [facility] Comment on above: Performed By: #### E DTOX, CBCWD, CMPX, MG #### [address] [place] [address] Community Service Aide: Swapnil Landis MD Calcium [Mass/Vol] 9.1 mg/dL Normal 8.6-10.2 [facility] Comment on above: Performed By: #### E DTOX, CBCWD, CMPX, MG #### [address] [place] [address] Community Service Aide: Swapnil Landis MD Chloride [Moles/Vol] 96 mmol/L Low 98-107 [facility] Comment on above: Performed By: #### E DTOX, CBCWD, CMPX, MG #### [address] [place] [address] Community Service Aide: Swapnil Landis MD CO2 [Moles/Vol] 28 mmol/L Normal 22-29 [facility] Comment on above: Performed By: #### E DTOX, CBCWD, CMPX, MG #### [address] [place] [address] Community Service Aide: Swapnil Landis MD Creatinine [Mass/Vol] 0.9 mg/dL Normal 0.50-1.00 [facility] Comment on above: Performed By: #### E DTOX, CBCWD, CMPX, MG #### [address] [place] [address] Community Service Aide: Swapnil Landis MD GFR/1.73 sq M.predicted among non-blacks MDRD (S/P/Bld) [Vol rate/Area] mL/min/{1.73_m2} Normal >60 [facility] Comment on above: Result Comment: These results are not intended for use in patients <18 years of age. eGFR results are calculated without a race factor using the 2020 CKD-EPI equation. Careful clinical correlation is recommended, particularly when comparing to results calculated using previous equations. The CKD-EPI equation is less accurate in patients with extremes of muscle mass, extra-renal metabolism of creatine, excessive creatine ingestion, or following therapy that affects renal tubular secretion. Performed By: #### E DTOX, CBCWD, CMPX, MG #### [address] [place] [address] Community Service Aide: Swapnil Landis MD Glucose [Mass/Vol] 87 mg/dL Normal 74-99 [facility] Comment on above: Performed By: #### E DTOX, CBCWD, CMPX, MG #### [address] [place] [address] Community Service Aide: Swapnil Landis MD Potassium [Moles/Vol] 3.2 mmol/L Low 3.5-5.0 [facility] Comment on above: Performed By: #### E DTOX, CBCWD, CMPX, MG #### [address] [address] Community Service Aide: Swapnil Landis MD Protein [Mass/Vol] 7.1 g/dL Normal 6.4-8.3 [facility] Comment on above: Performed By: #### E DTOX, CBCWD, CMPX, MG #### [address] [place] [address] Community Service Aide: Swapnil Landis MD Sodium [Moles/Vol] 136 mmol/L Normal 132-146 [facility] Comment on above: Performed By: #### E DTOX, CBCWD, CMPX, MG #### [address] [place] [address] Community Service Aide: Swapnil Landis MD Urea nitrogen [Mass/Vol] 8 mg/dL Normal 6-20 [facility] Comment on above: Performed By: #### E DTOX, CBCWD, CMPX, MG #### [facility] [address] [place] [address] Community Service Aide: Swapnil Landis MD Comprehensive Metabolic Pane l w/ Reflex to MGon 10-25-2023 Albumin [Mass/Vol] 4.0 g/dL 3.5 - 5.2 g/dL [facility] ALP [Catalytic activity/Vol] 105 U/L High 35 - 104 U/L [facility] ALT [Catalytic activity/Vol] 14 U/L 0 - 32 U/L [facility] Anion gap [Moles/Vol] 12 mmol/L 7 - 16 mmol/L [facility] AST [Catalytic activity/Vol] 15 U/L 0 - 31 U/L [facility] Bilirubin [Mass/Vol] 0.2 mg/dL 0.0 - 1 .2 mg/dL [facility] Calcium [Mass/Vol] 9.1 mg/dL 8.6 - 10. 2 mg/dL [facility] Chloride [Moles/Vol] 96 mmol/L Low 98 - 10 7 mmol/L [facility] CO2 [Moles/Vol] 28 mmol/L 22 - 29 mmol/L [facility] Creatinine [Mass/Vol] 0.9 mg/dL 0.50 - 1.00 mg/dL [facility] GFR/1.73 sq M.predicted MDRD (S/P/Bld) [Vol rate/Area] - PINF [facility] Comment on above: These results are not intended for use in patients <18 years of age. eGFR results are calculated without a race factor using the 2020 CKD-EPI equation. Careful clinical correlation is recommended, particularly when comparing to results calculated using previous equations. The CKD-EPI equation is less accurate in patients with extremes of muscle mass, extra-renal metabolism of creatine, excessive creatine ingestion, or following therapy that affects renal tubular secretion. Glucose [Mass/Vol] 87 mg/dL 74 - 99 mg/dL [facility] Interpretation and review of laboratory results Abnormal [facility] Potassium [Moles/Vol] 3.2 mmol/L Low 3.5 - 5.0 mmol/L [facility] Protein [Mass/Vol] 7.1 g/dL 6.4 - 8.3 g/dL [facility] Sodium [Moles/Vol] 136 mmol/L 132 - 146 mmol/L [facility] Urea nitrogen [Mass/Vol] 8 mg/dL 6 - 20 mg/dL [facility] Drug Scr, Abuse, Uron 2022 Amphetamine(s),Ur Negative Normal NEG [facility] Comment on above: Result Comment: Cuto ff: 1000 ng/mL Performed By: #### B MP, CK, MG, CBCWD #### [place] [address] Community Service Aide: Swapnil Landis MD Barbiturate(s),Ur Negative Normal NEG [facility] Comment on above: Result Comment: Cuto ff: 200 ng/ml Performed By: #### B MP, CK, MG, CBCWD #### [place] [address] Community Service Aide: Swapnil Landis MD Benzodiazepine(s) Negative Normal NEG [facility] Comment on above: Result Comment: Cuto ff: 200 ng/ml Performed By: #### B MP, CK, MG, CBCWD #### [place] [address] Community Service Aide: Swapnil Landis MD Buprenorphrine, Ur Negative Normal NEG [facility] Comment on above: Result Comment: Cuto ff: 5 ng/ml Performed By: #### B MP, CK, MG, CBCWD #### [place] [address] Community Service Aide: Swapnil Landis MD Cannabinoid(s),Ur Negative Normal NEG [facility] Comment on above: Result Comment: Cuto ff: 50 ng/ml Performed By: #### B MP, CK, MG, CBCWD #### [address] [place] [address] Community Service Aide: Swapnil Landis MD Cocaine Metabolite Negative Normal NEG [facility] Comment on above: Result Comment: Cuto ff: 300 ng/ml Performed By: #### B MP, CK, MG, CBCWD #### [address] [place] [address] Community Service Aide: Swapnil Landis MD Fentanyl, Urine Negative Normal NEG [facility] Comment on above: Result Comment: Cuto ff: 1.0 ng/ml Performed By: #### B MP, CK, MG, CBCWD #### [address] [place] [address] Community Service Aide: Swapnil Landis MD Interpretive Info These drug screen re sults are for medical purposes only and should not be Normal [facility] Comment on above: Result Comment: cons idered definitive or confirmed. The drug methodology concentration value must be greater than or equal to the cutoff to be reported as positive. Confirmtory testing orders and/or interpretive sceening questions can be directed to toxicology at [phone]. The absence of expected drug(s) and/or metabolite(s) may be due to inappropriate timing of specimen collection relative to drug administration, poor drug absorption, diluted/adulterated urine, or limitations of screening methodology. Performed By: #### B MP, CK, MG, CBCWD #### [address] [place] [address] Community Service Aide: Swapnil Landis MD Methadone Ql (U) Negative Normal NEG [facility] Comment on above: Result Comment: Cuto ff: 300 ng/ml Performed By: #### B MP, CK, MG, CBCWD #### [address] [place] [address] Community Service Aide: Swapnil Landis MD Opiate(s), Ur Negative Normal NEG [facility] Comment on above: Result Comment: Cuto ff: 300 ng/ml Note: The Opiate screen is not intended to detect Oxycodone. Performed By: #### B MP, CK, MG, CBCWD #### [address] [id number] Community Service Aide: Swapnil Landis MD Oxycodone, Urine Negative Normal NEG [facility] Comment on above: Result Comment: Cuto ff: 100 ng/ml Performed By: #### B MP, CK, MG, CBCWD #### [address] [place] [address] Community Service Aide: Swapnil Landis MD Phencyclidine, Ur Negative Normal NEG [facility] Comment on above: Result Comment: Cuto ff: 25 ng/ml Performed By: #### B MP, CK, MG, CBCWD #### [place] [address] Community Service Aide: Swapnil Landis MD Magnesiumon 10-25-2023 Magnesium [Mass/Vol] 1.9 mg/dL 1.6 - 2 .6 mg/dL [facility] Magnesium [Mass/Vol] 1.9 mg/dL Normal 1.6-2.6 [facility] Comment on above: Performed By: #### B MP #### [address] [place] [address] Community Service Aide: Swapnil Landis MD No Panel Informationon 10-25 [facility] Serum Drug Screenon 10-25-20 23 Acetaminophen [Mass/Vol] ug/mL Low 10.0 - 30.0 ug/mL [facility] Ethanolamine [Mass/Vol] mg/dL NINF - 10 mg/dL [facility] Interpretation and review of laboratory results Abnormal [facility] Salicylates [Mass/Vol] mg/dL 0.0 - 30.0 mg/dL [facility] Toxic Tricyclic Sc,Blood Negative NEGATIVE [facility] Comment on above: Cutoff: 300 ng/ml [facility] Tox Scr, Bld, EDon Acetaminophen [Mass/Vol] ug/mL Low 10.0-30.0 [facility] Comment on above: Performed By: #### B MP #### [address] [place] [address] Community Service Aide: Swapnil Landis MD Ethanol [Mass/Vol] mg/dL Normal <10 [facility] Comment on above: Performed By: #### B MP #### [address] [address] Community Service Aide: Swapnil Landis MD Salicylate <0.3 Normal 0.0-30.0 [facility] Comment on above: Performed By: #### B MP #### [address] [address] Community Service Aide: Swapnil Landis MD Toxic Tricyclic Sc,Bl Negative Normal NEG [facility] Comment on above: Result Comment: Cuto ff: 300 ng/ml Performed By: #### B MP #### [address] [address] Community Service Aide: Swapnil Landis MD Urinalysison 10-25-2023 Bilirubin Ql (U) Negative NEGATIVE [facility] [employer] Clarity (U) Clear Clear [facility] Color (U) Yellow Yellow [facility] Comment Microscopic exam not performed based on chemical results unless requested in original order. [facility] Glucose Test strip (U) [Mass/Vol] Negative NEGATIVE mg/dL [facility] Hemoglobin Auto test strip Ql (U) Negative NEGATIVE [facility] Interpretation and review of laboratory results Abnormal [facility] Ketones (U) [Mass/Vol] Negative NEGATIVE mg/dL [facility] Leukocyte esterase Test strip Ql (U) Negative NEGATIVE [facility] Nitrite Ql (U) Negative NEGATIVE [facility] pH (U) 7.0 [pH] 5.0 - 9.0 [facility] Protein (U) [Mass/Vol] Negative NEGATIVE mg/dL [facility] Specific gravity (U) [Rel density] Low 1.005 - 1.030 [facility] Urobilinogen Qn (U) 0.2 {Lakesha'U}/dL 0. 0 - 1.0 EU/dL [facility] Urinalysis, Routineon 2022 Bilirubin, SemiQt,Ur Negative Normal NEG [facility] Comment on above: Performed By: #### B MP, CK, MG, CBCWD #### [place] [address] Community Service Aide: Swapnil Landis MD Blood, Urine Negative Normal NEG [facility] Comment on above: Performed By: #### B MP, CK, MG, CBCWD #### [place] [address] Community Service Aide: Swapnil Landis MD Clarity (U) Clear Normal CLEAR [facility] Comment on above: Performed By: #### B MP, CK, MG, CBCWD #### [place] [address] Community Service Aide: Swapnil Landis MD Color (U) Yellow Normal YEL [facility] Comment on above: Performed By: #### B MP, CK, MG, CBCWD #### [place] [address] Community Service Aide: Swapnil Landis MD Comment Microscopic exam not performed based on chemical results unless requested in Normal [facility] Comment on above: Result Comment: orig inal order. Performed By: #### B MP, CK, MG, CBCWD #### [place] [address] [place] [address] Community Service Aide: Swapnil Landis MD Glucose Ql (U) Negative Normal NEG [facility] Comment on above: Performed By: #### B MP, CK, MG, CBCWD #### [address] [place] [address] Community Service Aide: Swapnil Landis MD Ketones Ql (U) Negative Normal NEG [facility] Comment on above: Performed By: #### B MP, CK, MG, CBCWD #### [address] [place] [address] Community Service Aide: Swapnil Landis MD Leukocyte esterase Test strip Ql (U) Negative Normal NEG [facility] Comment on above: Performed By: #### B MP, CK, MG, CBCWD #### [address] [place] [address] Community Service Aide: Swapnil Landis MD Nitrite,Ur Negative Normal NEG [facility] Comment on above: Performed By: #### B MP, CK, MG, CBCWD #### [address] [place] [address] Community Service Aide: Swapnil Landis MD PH,Ur 7.0 Normal 5.0-9.0 [facility] Comment on above: Performed By: #### B MP, CK, MG, CBCWD #### [address] [place] [address] Community Service Aide: Swapnil Landis MD Protein Ql (U) Negative Normal NEG [facility] Comment on above: Performed By: #### B MP, CK, MG, CBCWD #### [address] [place] [address] Community Service Aide: Swapnil Landis MD Spec. Volcano,Ur <1.005 Low 1.005-1.030 [facility] Comment on above: Performed By: #### B MP, CK, MG, CBCWD #### [place] [address] Community Service Aide: Swapnil Landis MD Urobilinogen,Ur 0.2 EU/dL Normal 0.0-1.0 [facility] Comment on above: Performed By: #### B MP, CK, MG, CBCWD #### [place] [address] Community Service Aide: Swapnil Landis MD Urine Drug Screenon 10-25-20 Amphetamines Ql (U) Negative NEGATIVE [facility] Comment on above: Cutoff: 1000 ng/mL Barbiturates Screen Ql (U) Negative NEGATIVE [facility] Comment on above: Cutoff: 200 ng/ml Benzodiazepines Ql (U) Negative NEGATIVE [facility] Comment on above: Cutoff: 200 ng/ml Buprenorphine Ql (U) Negative NEGATIVE [facility] Comment on above: Cutoff: 5 ng/ml Cannabinoids Screen Ql (U) Negative NEGATIVE [facility] Comment on above: Cutoff: 50 ng/ml Cocaine Ql (U) Negative NEGATIVE [facility] Comment on above: Cutoff: 300 ng/ml fentaNYL Ql (U) Negative NEGATIVE [facility] Comment on above: Cutoff: 1.0 ng/ml Methadone Ql (U) Negative NEGATIVE [facility] Comment on above: Cutoff: 300 ng/ml Opiates Screen Ql (U) Negative NEGATIVE [facility] Comment on above: Cutoff: 300 ng/ml Note: The Opiate screen is not intended to detect Oxycodone. oxyCODONE Ql (U) Negative NEGATIVE [facility] Comment on above: Cutoff: 100 ng/ml Phencyclidine Ql (U) Negative NEGATIVE [facility] Comment on above: Cutoff: 25 ng/ml Test Information These drug screen re sults are for medical purposes only and should not be considered definitive or confirmed. [facility] Comment on above: The drug methodology concentration value must be greater than or equal to the cutoff to be reported as positive. Confirmtory testing orders and/or interpretive sceening questions can be directed to toxicology at [phone]. The absence of expected drug(s) and/or metabolite(s) may be due to inappropriate timing of specimen collection relative to drug administration, poor drug absorption, diluted/adulterated urine, or limitations of screening methodology. [facility] HEMOGLOBIN A1C (POC)on 08-17 HbA1c (Bld) [Mass fraction] 5.8 % 4.2 - 5.6 % [facility] XR CHEST 2V FRONTAL/LATon [facility] XR Chest PA and Lateralon IMPRESSION: No acute radiographic abnormality. Insulation Batting Machine Operator: MAGGI Transcribe Date/Time: Aug 17 2023 11:12A Dictated by : MICHELINE SAAVEDRA MD This examination was interpreted and the report reviewed and electronically signed by: MICHELINE SAAVEDRA MD on Aug 17 2023 11:13AM [facility] DIVISION OF RADIOLOGY * * *Final Report* * * DATE OF EXAM: Aug 17 2023 9:42AM WOX 5291 - XR CHEST 2V FRONTAL/LAT / PROCEDURE REASON: Wheezing * * * * Physician Interpretation * * * * EXAMINATION: CHEST RADIOGRAPH (2 VIEW FRONTAL & LATERAL) CLINICAL HISTORY: Wheezing MQ: XC2_6 EXAM DATE/TIME: 08/17/2023 9:42 AM COMPARISON: Chest x-ray on 10/03/2018 RESULT: Lines, tubes, and devices: None. Lungs and pleura: No consolidation. No lung mass. No pleural effusion. No pneumothorax. Cardiomediastinal silhouette: Normal cardiomediastinal silhouette. Bones and soft tissues: Unremarkable. DIVISION OF RADIOLOGY Provider, [facility] 08/17/[facility]23 * * *Final Report* * * DATE OF EXAM: Aug 17 2023 9:42AM WOX 5291 - XR CHEST 2V FRONTAL/LAT / PROCEDURE REASON: Wheezing * * * * Physician Interpretation * * * * EXAMINATION: CHEST RADIOGRAPH (2 VIEW FRONTAL & LATERAL) CLINICAL HISTORY: Wheezing MQ: XC2_6 EXAM DATE/TIME: 08/17/2023 9:42 AM COMPARISON: Chest x-ray on 10/03/2018 RESULT: Lines, tubes, and devices: None. Lungs and pleura: No consolidation. No lung mass. No pleural effusion. No pneumothorax. Cardiomediastinal silhouette: Normal cardiomediastinal silhouette. Bones and soft tissues: Unremarkable. IMPRESSION IMPRESSION: No acute radiographic abnormality. Insulation Batting Machine Operator: [employer] Transcribe Date/Time: Aug 17 2023 11:12A Dictated by : MICHELINE SAAVEDRA MD This examination was interpreted and the report reviewed and electronically signed by: MICHELINE SAAVEDRA MD on Aug 17 2023 11:13AM EST [facility] Radiology Study observation (narrative) [facility] XR Chest PA and LateralOrder ed By: Ccf Provider on 08-17-2023 [facility] XR Cervical spine AP and Lat [facility] 03-27-2023 IMPRESSION: Cervical spine degenerative changes as described above. Insulation Batting Machine Operator: [employer] Transcribe Date/Time: Mar 27 2023 11:07A Dictated by : MICHELINE SAAVEDRA MD This examination was interpreted and the report reviewed and electronically signed by: MICHELINE SAAVEDRA MD on Mar 27 2023 11:09AM [facility] DIVISION OF RADIOLOGY * * *Final Report* * * DATE OF EXAM: Mar 27 2023 10:41AM WOX 5308 - XR CERVICAL 2V AP/LAT / PROCEDURE REASON: multiple diagnoses * * * * Physician Interpretation * * * * EXAM TITLE: XR CERVICAL 2V AP/LAT EXAM DATE/TIME: 03/27/2023 10:41 AM COMPARISON: None. CLINICAL INDICATION/HISTORY: Numbness and tingling in the hands TECHNIQUE: AP, mortise and lateral views of the cervical spine are presented. FINDINGS: No fractures or subluxations are noted. The disc spaces are well preserved. There is moderate osteophyte formation, with facet arthrosis. 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 The prevertebral soft tissues are normal. DIVISION OF RADIOLOGY Provider, Romie mantilla [place] - 03/27/2023 * * *Final Report* * * DATE OF EXAM: Mar 27 2023 10:41AM WOX 5308 - XR CERVICAL 2V AP/LAT / PROCEDURE REASON: multiple diagnoses * * * * Physician Interpretation * * * * EXAM TITLE: XR CERVICAL 2V AP/LAT EXAM DATE/TIME: 03/27/2023 10:41 AM COMPARISON: None. CLINICAL INDICATION/HISTORY: Numbness and tingling in the hands TECHNIQUE: AP, mortise and lateral views of the cervical spine are presented. FINDINGS: No fractures or subluxations are noted. The disc spaces are well preserved. There is moderate osteophyte formation, with facet arthrosis. 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 The prevertebral soft tissues are normal. IMPRESSION IMPRESSION: Cervical spine degenerative changes as described above. Insulation Batting Machine Operator: PSCB Transcribe Date/Time: Mar 27 2023 11:07A Dictated by : MICHELINE SAAVEDRA MD This examination was interpreted and the report reviewed and electronically signed by: MICHELINE SAAVEDRA MD on Mar 27 2023 11:09AM EST [facility] Radiology Study observation (narrative) [facility] XR Cervical spine AP and Lat eralOrdered By: Ccf Provider on 03-27-2023 [facility] CBC W Auto Differential pane l (Bld)on 02-14-2023 Basophils (Bld) [#/Vol] 0.09 10*3/uL <0.11 k/uL [facility] Basophils/100 WBC (Bld) 0.9 % [facility] Differential cell count method Nom (Bld) Auto [facility] Eosinophils (Bld) [#/Vol] 0.33 10*3/uL <0.46 k/uL [facility] Eosinophils/100 WBC (Bld) 3.2 % [facility] Erythrocyte distribution width (RBC) [Ratio] 13.2 % 11.5 - 15.0 % [facility] Hematocrit (Bld) [Volume fraction] 42.0 % 36.0 - 46.0 % [facility] Hemoglobin (Bld) [Mass/Vol] 13.9 g/dL 11.5 - 15.5 g/dL [facility] Immature granulocytes (Bld) [#/Vol] 0.07 10*3/uL <0.10 k/uL [facility] Immature granulocytes/100 WBC (Bld) 0.7 % [facility] Lymphocytes (Bld) [#/Vol] 4.46 10*3/uL High 1.00 - 4.00 k/uL [facility] Lymphocytes/100 WBC (Bld) 42.8 % [facility] MCH (RBC) [Entitic mass] 29.6 pg 26.0 - 34.0 pg [facility] MCHC (RBC) [Mass/Vol] 33.1 g/dL 30.5 - 36.0 g/dL [facility] MCV (RBC) [Entitic vol] 89.6 fL 80.0 - 100.0 fL [facility] Monocytes (Bld) [#/Vol] 0.72 10*3/uL <0.87 k/uL [facility] Monocytes/100 WBC (Bld) 6.9 % [facility] Neutrophils (Bld) [#/Vol] 4.75 10*3/uL 1.45 - 7.50 k/uL [facility] Neutrophils/100 WBC (Bld) 45.5 % [facility] Nucleated RBC (Bld) [#/Vol] <0.01 k/uL [facility] Nucleated RBC/100 WBC (Bld) [Ratio] 0.0 /100 WBC [facility] Platelet mean volume (Bld) [Entitic vol] 10.3 fL 9.0 - 12.7 fL [facility] Platelets (Bld) [#/Vol] 294 10*3/uL 150 - 400 k/uL [facility] RBC (Bld) [#/Vol] 4.69 10*6/uL 3.90 - 5.2 0 m/uL [facility] WBC (Bld) [#/Vol] 10.42 10*3/uL 3.70 - 11 .00 k/uL [facility] Comprehensive metabolic 2000 panelon 02-14-2023 Albumin [Mass/Vol] 3.7 g/dL Low 3.9 - 4.9 g/dL [facility] ALP [Catalytic activity/Vol] 107 U/L 34 - 123 U/L [facility] ALT [Catalytic activity/Vol] 19 U/L 7 - 38 U/L [facility] Anion gap [Moles/Vol] 8 mmol/L Low 9 - 18 mmol/L [facility] AST [Catalytic activity/Vol] 19 U/L 13 - 35 U/L [facility] Bilirubin [Mass/Vol] Low 0.2 - 1 .3 mg/dL [facility] Calcium [Mass/Vol] 9.6 mg/dL 8.5 - 10. 2 mg/dL [facility] Chloride [Moles/Vol] 100 mmol/L 97 - 10 5 mmol/L [facility] CO2 [Moles/Vol] 29 mmol/L 22 - 30 mmol/L [facility] Creatinine [Mass/Vol] 0.82 mg/dL 0.58 - 0.96 mg/dL [facility] Estimated Glomerular Filtration Rate 88 mL/min/1.73m >=60 mL/min/1.73m [facility] Glucose [Mass/Vol] 110 mg/dL High 74 - 99 mg/dL [facility] Potassium [Moles/Vol] 4.3 mmol/L 3.7 - 5.1 mmol/L [facility] Protein [Mass/Vol] 6.6 g/dL 6.3 - 8.0 g/dL [facility] Sodium [Moles/Vol] 137 mmol/L 136 - 144 mmol/L [facility] Urea nitrogen [Mass/Vol] 13 mg/dL 7 - 21 mg/dL [facility] TSH BLDon 02-14-2023 TSH Qn 3.790 m[IU]/L 0.270 - 4.200 mIU/L [facility] SURGICAL PATHOLOGYon Case Report Surgical Pathology R eport Case: [id number] Authorizing Provider: Debra Carrillo MD Collected: 09/22/2022 01:52 PM Ordering Location: Ambulatory Surgery Received: 09/22/2022 03:59 PM Pathologist: Charlie Palmer MD Specimen: COLON POLYP, Left colon polyp [facility] FINAL DIAGNOSIS Left colon, polypect marleny: - Fragments of tubular adenoma. [facility] Gross Description A. COLON POLYP Received in formalin are two pieces of duarte, soft tissue aggregating to 0.7 x 0.2 x 0.2 cm. Totally submitted in one cassette. Gross examination performed at [facility], [facility] [place] [address] JT 09/22/2022 11:21 PM [facility] Performing Lab Diagnostic interpret ation performed at [facility], [facility] [address] CLIA# [id number] Tire Servicer: Trey Ortiz M.D. [facility] COLONOSCOPY DIAGNOSTICon [facility] UA DIP, URINE (POC)on 2021 BILIRUBIN UA (POCT) Negative Negative [facility] CLARITY UA (POCT) Clear [facility] COLOR UA (POCT) Yellow [facility] GLUCOSE UA (POCT) Negative Negative mg/dL [facility] HEMOGLOBIN/BLOOD UA (POCT) Trace-intact Abnormal Negative [facility] KETONE UA (POCT) Negative Negative mg/dL [facility] LEUKOCYTES UA (POCT) Negative Negative [facility] NITRITE UA (POCT) Negative Negative [facility] PH UA (POCT) 6.0 4.5 - 8.0 [facility] Protein Ql (U) Negative Negative mg/dL [facility] SPECIFIC GRAVITY UA (POCT) <=1.005 Abnormal 1.005 - 1.030 [facility] UROBILINOGEN UA (POCT) 0.2 E.U./dL Normal E.U./dL [facility] XR Ankle - right AP and Late ral and obliqueon 08-14-2022 IMPRESSION: No acute radiographic abnormalities seen in the right ankle. Other findings as described above. Insulation Batting Machine Operator: PSCB Transcribe Date/Time: Aug 14 2022 9:11A Dictated by : MICHELINE SAAVEDRA MD This examination was interpreted and the report reviewed and electronically signed by: MICHELINE SAAVEDRA MD on Aug 14 2022 9:15AM [facility] DIVISION OF RADIOLOGY * * *Final Report* * * DATE OF EXAM: Aug 14 2022 9:05AM WOX [id number] - XR ANKLE 3V AP/LAT/OBL RT / PROCEDURE REASON: Ankle injuries, right, initial encounter * * * * Physician Interpretation * * * * EXAM TITLE: XR ANKLE 3V AP/LAT/OBL RT EXAM DATE/TIME: 08/14/2022 9:05 AM COMPARISON: None. CLINICAL INDICATION/HISTORY: Ankle injury. TECHNIQUE: AP, mortise and lateral views of the right ankle are presented. FINDINGS: No acute fractures or subluxations are noted. A few corticated accessory bones along the bilateral malleoli. The mortise joint spaces are well preserved. No ankle joint effusion seen. There are degenerative changes in the mid foot. Calcaneal enthesophyte formation noted. The mineralization of the bones is normal. There is no significant soft tissue swelling. DIVISION OF RADIOLOGY Provider, [facility] Marisol mantilla [place] - 08/14/2022 * * *Final Report* * * DATE OF EXAM: Aug 14 2022 9:05AM WOX 5297 - XR ANKLE 3V AP/LAT/OBL RT / PROCEDURE REASON: Ankle injuries, right, initial encounter * * * * Physician Interpretation * * * * EXAM TITLE: XR ANKLE 3V AP/LAT/OBL RT EXAM DATE/TIME: 08/14/2022 9:05 AM COMPARISON: None. CLINICAL INDICATION/HISTORY: Ankle injury. TECHNIQUE: AP, mortise and lateral views of the right ankle are presented. FINDINGS: No acute fractures or subluxations are noted. A few corticated accessory bones along the bilateral malleoli. The mortise joint spaces are well preserved. No ankle joint effusion seen. There are degenerative changes in the mid foot. Calcaneal enthesophyte formation noted. The mineralization of the bones is normal. There is no significant soft tissue swelling. IMPRESSION IMPRESSION: No acute radiographic abnormalities seen in the right ankle. Other findings as described above. Insulation Batting Machine Operator: PSCTrevor Transcribe Date/Time: Aug 14 2022 9:11A Dictated by : MICHELINE SAAVEDRA MD This examination was interpreted and the report reviewed and electronically signed by: MICHELINE SAAVEDRA MD on Aug 14 2022 9:15AM EST [facility] Radiology Study observation (narrative) [facility] XR Ankle - right AP and Late ral and obliqueOrdered By: Ccf Provider on 08-14-2022 [facility] No Panel Informationon 03-21 SARS-CoV-2 & FLU Antigen (Rapid) [facility] Work Phone: OPERATIVE PROCEDURESon 03-01 OPERATIVE PROCEDURES [facility] OPERATIVE REPORT NAME ACCOUNT SEX AGE ADMIT DISCHARGE PT MED. RECORD# NUMBER DATE DATE TYPE SETH [id number] Caitlin 47 02/22/22 02/22/22 2 VINOD [id number] ROOM: [facility] DATE OF : 1975 DICTATING PHYSICIAN: Matthew Chan DATE OF SURGERY: February 22, 2022 SURGEON: Matthew Chan MD PRODUCTION DEPARTMENT SUPERVISOR: ANESTHESIOLOGIST: ANESTHETIC: General endotracheal with 1% lidocaine and 0.5% Marcaine without epinephrine locally. PREOPERATIVE DIAGNOSIS: Bilateral breast abscesses. POSTOPERATIVE DIAGNOSIS: Bilateral breast abscesses. OPERATION PERFORMED: Bilateral breast incision and drainage. COMPLICATIONS: None. ESTIMATED BLOOD LOSS: 8 mL. DRAINS: Both wounds packed with 1/2 inch iodoform gauze. SPECIMEN: (1) Bilateral breast wound cultures. (2) Bilateral breast tissue. DISPOSITION: Home. Diet: Regular. Activity: Regular. Medication: The patient was given Percocet as needed for pain, and instructed to resume any previous home medications. Work: The patient was given a 1 week excused absence from work, and may return without any restricted activity or duties. Follow up with Dr. Chan's clinic on February 24, 2022 at 11:15 a.m. DESCRIPTION OF OPERATION: Following initiation of general endotracheal anesthesia, the patient was sterilely prepped and draped in the usual sterile supine position. Bilateral breasts had approximately 1 cm area of fluctuance with some purulent drainage. Both sites were incised and drained in the same manner. The manner is as follows: An elliptical incision was proposed around the area of fluctuance. The proposed Page 1 of 2 VINOD ANN Operative Report VINOD ANN : 1975 incision site was anesthetized with 1% lidocaine and 0.5% Marcaine without epinephrine locally. The incision was initiated using an 11 blade scalpel. The overlying skin was removed with the elliptical incisions and passed off the table and sent to Pathology. There was not much purulent drainage from either wound. However, cultures still were obtained from both sites. A finger was inserted through the opening, and felt to be what was suspicious for a cyst wall. This was grasped with a Hunter clamp, and cyst wall was entirely grossly excised down to healthy adipose both deep and laterally. This tissue was also sent off to be sent to Pathology. Operative cavity was then irrigated with copious amounts of saline. Hemostasis was achieved using electrocautery. Both wounds were then packed tightly with Iodoform gauze. All instrument, needle, and sponge counts were correct x2. The wounds were appropriately dressed and bandaged. The patient was then awakened, extubated, and taken to the PACU in good stable condition. Dictated By: Matthew Chan MD 02/22/22 12:39 JOB #: [id number] Transcribed By: fernando 02/22/22 17:26 Electronically signed by: E-SIGN DR. CHAN 03/01/22 11:10 Page 2 of 2 VINOD ANN Operative Report Normal [facility] CULTURE WOUNDon 02-22-2022 CULTURE WOUND CULTURE WOUND _WOUND CULTURE_ M I C R O B I O L O G Y R E P O R T FINAL -------- Antimicrobial Susceptibility and Organism Identification Report --------- Specimen Number : [id number] Requested : 02/22/22 Specimen Source : WOUND Collected : 02/22/22 13:00 [place] of Isolation : AMBULATORY Received : 02/22/22 13:00 Requesting Physician : DUSTIN CASTRO ------- Patient/Specimen Tests and Comments Specimen Comments --------- --------- FINAL REPORT: NO GROWTH AT 48 HOURS source: right breast ------- Tech : _ Source : WOUND ID # : [id number] FINAL Report Date : / / : Collected : 02/22/22 13:00 02/24/22.1356.BKO. 02/23/22.1205.BKO. 02/24/22.1357.BKO.COMPLET E Normal [facility] Comment on above: Performed By: #### 2 [id number] #### [facility],[address] [place] [address] CULTURE WOUND CULTURE WOUND _WOUND CULTURE_ M I C R O B I O L O G Y R E P O R T FINAL -------- Antimicrobial Susceptibility and Organism Identification Report --------- Specimen Number : [id number] Requested : 02/22/22 Specimen Source : WOUND Collected : 02/22/22 13:00 [place] of Isolation : AMBULATORY Received : 02/22/22 13:00 Requesting Physician : DUSTIN CASTRO ------- Patient/Specimen Tests and Comments Specimen Comments --------- --------- FINAL REPORT: SCANT GROWTH GRAM POSITIVE RODS NORMAL SKIN MAGGIE NO PATHOGENS PRESENT source: left breast ------- Tech : _ Source : WOUND ID # : [id number] FINAL Report Date : / / : Collected : 02/22/22 13:00 02/24/22.BKO. 02/23/22.1205.BKO. 02/24/22.BKO.COMPLET E Normal [facility] Comment on above: Performed By: #### 2 [id number] #### [facility],[address] [place] [address] GRAM STAIN Elena 02-22-2022 GRAM STAIN STAT GRAM STAIN STAT GRAM STAIN SOURCE _LEFT_BREAST 02/22/22.BKO. AMOUNT DESCRIPTION _FEW____WBC'S 02/22/22.BKO. _NO_ORGANISMS_SEEN 04/20/22.1356.BKO. Normal [facility] Comment on above: Performed By: #### 2 [id number] #### [facility],[address] [place], [place] [id number] GRAM STAIN STAT GRAM STAIN STAT GRAM STAIN SOURCE _RIGHT_BREAST____ 02/22/22.1355.BKO. AMOUNT DESCRIPTION _RARE WBC'S 02/22/22.1355.BKO. _NO_ORGANISMS_SEEN 02/22/22.1355.BKO. Normal [facility] Comment on above: Performed By: #### 2 [id number] #### [facility],[address] [place] [id number] URINEon 02-22-2022 Beta HCG ( test) Ql (U) Negative Normal NEGATIVE [facility] Comment on above: Performed By: #### 2 [id number] #### [facility],[address] [place] [address] EXTERNAL QC DONE? YES Normal [facility] Comment on above: Performed By: #### 2 [id number] #### [facility],[address] [place] [address] INTERNAL QC PASS Normal [facility] Comment on above: Performed By: #### 2 [id number] #### [facility],[address] [place], [place] [id number] Alternaria alternata IgE ser umon 01-18-2022 A. alternata IgE Qn (S) <0.10 kU/L Class 0 [facility] Work Phone: Laboratory - Miscellaneous t estson 01-18-2022 Service comment (Unsp spec) [Interp] Comment . [facility] Work Phone: Comment on above: Levels of Specific I gE Class Description of Class ----- < 0.10 0 Negative 0.10 - 0.31 0/I Equivocal/Low 0.32 - 0.55 I Low 0.56 - 1.40 II Moderate 1.41 - 3.90 III High 3.91 - 19.00 IV Very High 19.01 - 100.00 V Very High >100.00 Very High No Panel Informationon 01-18 Cat Hair Allergen <0.10 kU/L Class 0 [facility] Work Phone: Common Ragweed (Short) Allergen 0.21 kU/L Class 0/I [facility] Work Phone: Immunoglobulin E 66 IU/mL 6-495 [facility] Work Phone: Maple ([place]) Allergen IgE Ab 0.17 kU/L Class 0/I [facility] Work Phone: Mouse Urine Allergen IgE Antibody <0.10 kU/L Class 0 [facility] Work Phone: Comment on above: Performed at: [id number] [place], [place] [id number] Director: Vero Schroeder MD, Phone: [phone] Scallop Allergen 0.13 kU/L Class 0/I [facility] Work Phone: Sesame Seed Allergen IgE Antibody 0.22 kU/L Class 0/I [facility] Work Phone: Comment on above: Performed at: [id number] [place], [place] [id number] Director: Vero Schroeder MD, Phone: [phone] Shrimp Allergen 0.14 kU/L Class 0/I [facility] Work Phone: Newton Tree Allergen 0.21 kU/L Class 0/I [facility] Work Phone: Rough pigweed specific IgE a ntibody assayon 01-18-2022 Rough Pigweed IgE Qn (S) 0.16 kU/L Class 0/I [facility] Work Phone: Serum Rwandan sycamore IgE antibody assay (units/volume)on 01-18-2022 Rw[place]an Limestone IgE Qn (S) 0.18 kU/L Class 0/I [facility] Work Phone: Serum Aspergillus fumigatus IgE antibody assay (units/volume)on 01-18-2022 A. fumigatus IgE Qn (S) <0.10 kU/L Class 0 [facility] Work Phone: Serum Bermuda grass IgE anti body assay (units/volume)on 01-18-2022 Bermuda grass IgE Qn (S) 0.24 kU/L Class 0/I [facility] Work Phone: Serum Cladosporium herbarum IgE antibody assay (units/volume)on 01-18-2022 C. herbarum IgE Qn (S) <0.10 kU/L Class 0 [facility] Work Phone: Serum Dermatophagoides farin ae specific IgE antibody assay (units/volume)on 01-18-2022 Rwandan house dust mite IgE Qn (S) <0.10 kU/L Class 0 [facility] Work Phone: Serum house dust mi te IgE antibody assay (units/volume)on 01-18-2022 house dust mite IgE Qn (S) 0.11 kU/L Class 0/I [facility] Work Phone: Serum Penicillium notatum Ig E antibody assay (units/volume)on 01-18-2022 P. notatum IgE Qn (S) <0.10 kU/L Class 0 [facility] Work Phone: Serum Periplaneta americana IgE antibody assay (units/volume)on 01-18-2022 R[place]an Cockroach IgE Qn (S) 0.17 kU/L Class 0/I [facility] Work Phone: Serum Libyan thistle specif ic IgE antibody assayon 01-18-2022 Saltwort IgE Qn (S) 0.19 kU/L Class 0/I [facility] Work Phone: Serum birch specific IgE ant ibody assayon 01-18-2022 Silver Birch IgE Qn (S) 0.11 kU/L Class 0/I [facility] Work Phone: Serum black walnut IgE antib yadiel assay (units/volume)on 01-18-2022 [place] IgE Qn (S) 0.14 kU/L Class 0/I [facility] Work Phone: [place] IgE Qn (S) 0.18 kU/L Class 0/I [facility] Work Phone: Serum clam IgE antibody assa y (units/volume)on 01-18-2022 Clam IgE Qn (S) <0.10 kU/L Class 0 [facility] Work Phone: Serum codfish IgE antibody a ssay (units/volume)on 01-18-2022 Codfish IgE Qn (S) <0.10 kU/L Class 0 [facility] Work Phone: Serum corn IgE antibody assa y (units/volume)on 01-18-2022 [place] IgE Qn (S) 0.13 kU/L Class 0/I [facility] Work Phone: Serum cottonwood IgE antibod y assay (units/volume)on 01-18-2022 [place] IgE Qn (S) 0.15 kU/L Class 0/I [facility] Work Phone: Serum cow milk IgE antibody assay (units/volume)on 01-18-2022 Cow milk IgE Qn (S) <0.10 kU/L Class 0 ost er [facility] Work Phone: Serum dog epithelium IgE ant ibody assay (units/volume)on 01-18-2022 Dog epithelium IgE Qn (S) <0.10 kU/L Class 0 [facility] Work Phone: Serum egg white IgE antibody assay (units/volume)on 01-18-2022 Egg white IgE Qn (S) <0.10 kU/L Class 0 [facility] Work Phone: Serum mountain cedar specifi c IgE antibody assayon 01-18-2022 Mountain Juniper IgE Qn (S) 0.14 kU/L Class 0/I [facility] Work Phone: Serum peanut IgE antibody as say (units/volume)on 01-18-2022 Peanut IgE Qn (S) 0.24 kU/L Class 0/I [facility] Work Phone: Serum pecan or hickory nut I gE antibody assay (units/volume)on 01-18-2022 Pecan or Barnes Nut IgE Qn (S) 0.13 kU/L Class 0/I [facility] Work Phone: Serum sheep sorrel IgE antib yadiel assay (units/volume)on 01-18-2022 Sheep [place] IgE Qn (S) 0.22 kU/L Class 0/I [facility] Work Phone: Serum soybean IgE antibody a ssay (units/volume)on 01-18-2022 Soybean IgE Qn (S) 0.16 kU/L Class 0/I [facility] Work Phone: Serum she IgE antibody a ssay (units/volume)on 01-18-2022 She IgE Qn (S) 0.21 kU/L Class 0/I [facility] Work Phone: Serum wheat IgE antibody ass ay (units/volume)on 01-18-2022 Wheat IgE Qn (S) 0.19 kU/L Class 0/I [facility] Work Phone: Serum white rachid IgE antibody assay (units/volume)on 01-18-2022 White Rachid IgE Qn (S) 0.20 kU/L Class 0/I [facility] Work Phone: Serum white elm IgE antibody assay (units/volume)on 01-18-2022 White Elm IgE Qn (S) 0.18 kU/L Class 0/I [facility] Work Phone: Serum white mulberry IgE ant ibody assay (units/volume)on 01-18-2022 White mulberry IgE Qn (S) <0.10 kU/L Class 0 [facility] Work Phone: TORIBIOOVkajal 01-03-2022 CNOV Office Visit (AGGEVELIO R) ----- VINOD ANN ([id number]) 1975 F Date Time Provider Department 01/03/22 2:00 PM TINA WOODARD During your visit today, we recorded the following information about you: Pulse Blood pressure Weight Height 80/minute 128/88 86.2 kg 1.676 m Ileana Benito LPN 01/03/2022 2:56 PM Signed Patient presents for chronic left breast abscess and chronic bilateral nipple discharge. Patient states that she has been manipulating puss like discharge from both the abscess and the nipples. Denies fever or chills. Patient currently on Bactrim ZULEMA Waters DO 01/03/2022 4:53 PM Signed Tina Woodard D.O. [facility] [address] [place] [address] SUBJECTIVE Chief Complaint: Patient presents with: Breast Problem: left breast abscess bilateral nipple discharge . HPI Vinod Ann is a 46 year old female presents for follow-up left breast abscess. Patient has two pills left of antibiotic treatment and reports overall improvement after wound opened and drained spontaneously. Pt still has concerns regarding new left nipple inversion. Diagnostic imaging completed today. Pt denies constitutional symptoms to include fever, chills, sweats, body aches. Pt does admit to picking at the breast lesion. Pt continues to smoke despite encouragement to stop and gentle reminder that it will increase her risk for future breast infections/abscess and poor wound healing. Nursing Notes: Ileana Benito LPN 01/03/2022 2:56 PM Signed Patient presents for chronic left breast abscess and chronic bilateral nipple discharge. Patient states that she has been manipulating puss like discharge from both the abscess and the nipples. Denies fever or chills. Patient currently on Bactrim Ileana Benito LPN AGE AT [place] 10 AGE AT FIRST 25 FAMILY HISTORY OF BREAST CANCER Yes (IF YES) NUMBER OF FIRST DEGREE RELATIVES WITH BREAST CANCER 0 PREVIOUS BREAST BIOPSIES Yes (x1) (IF YES) PREVIOUS BREAST BIOPSY WITH ATYPICAL HYPERPLASIA No RACE BRIONNA MODEL RISK 5 YEAR 1.5 BRIONNA MODEL RISK LIFETIME 14.3 Review of Systems Constitutional: Negative for chills, fever, malaise/fatigue and weight loss. Respiratory: Negative for cough and shortness of breath. Cardiovascular: Negative for chest pain. Gastrointestinal: Negative for nausea and vomiting. Skin: Negative for itching and rash. Neurological: Negative for dizziness and headaches. Endo/Heme/Allergies: Does not bruise/bleed easily. Psychiatric/Behavioral: Negative for depression. The patient is not nervous/anxious. 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 , did have small relapse 02/15 with of mother - Severe episode of recurrent major depressive disorder, without psychotic features ([facility]) Kendra Padilla - Suicidal ideation PAST SURGICAL HISTORY Procedure Laterality Date - BX OF BREAST; INCISIONAL Left 08/29/2019 [facility]- Benign - COLONOSCOPY FLX DX W/COLLJ SPEC WHEN PFRMD 12/01/2019 Colonoscopy - PAST SURGICAL HISTORY OF 03/2010 gall bladder removed - PAST SURGICAL HISTORY OF Left wrist surgery when she was 15 years old - PAST SURGICAL HISTORY OF 2013 tubal ligation Social History Tobacco Use - Smoking status: Current Every Day Smoker Packs/day: 2.00 Years: 29.00 Pack years: 58.00 Types: Cigarettes - Smokeless tobacco: Never Used Vaping Use - Vaping Use: Never used Substance Use Topics - Alcohol use: No Comment: quit , small relapse in 02/15 with of mother. - Drug use: No FAMILY HISTORY Problem Relation Age of Onset - Lung Cancer Mother at 63 - Osteoporosis Mother - Alcohol/Drug Mother alcohol - Hypertension Father - Alcohol/Drug Father alcohol - Aneurysm Father abdominal - Prostate Cancer Father - Alcohol/Drug Sister drugs - other (Aids) Sister drug user - Aneurysm Sister head - Breast Cancer Paternal Grandmother late 50's or 60's - Alcohol/Drug Niece - Ovarian cancer Niece diagnosed young The ROS, medical, surgical, family, and social history were reviewed by Tina Woodard DO ALLERGIES Allergen Reactions - Cephalexin Hives, Diarrhea - Fenofibrate Other: See Comments Hives with GI upset (emesis) - Zoloft [Sertraline * Hives, Diarrhea - Clindamycin Hives States has take since with no issue 08/06/20. Elba Broussard MA Current Outpatient Medications Medication Sig - meloxicam (MOBIC) 7.5 mg tablet (more content not included)... Normal [facility] JAE Harris REMEDIOS BILon 2021 JAE Harris REMEDIOS RM * * *Final Report* * * DATE OF EXAM: Jan 03 2022 1:CRISTHIAN AASteven 0627 - JAE Harris REMEDIOS RM / PROCEDURE REASON: multiple diagnoses * * * * Physician Interpretation * * * * #[id number] - [facility] RENATOG W REMEDIOS RM #[id number] - [facility] US BREAST LTD LT BILATERAL DIGITAL DIAGNOSTIC MAMMOGRAM TOMOSYNTHESIS WITH CAD: 01/03/2022 HISTORY: Multiple Diagnoses\ Right breast nipple discharge. Left breast nipple discharge. Multiple Diagnoses/ Patient presents with left nipple discharge. RESULT: TECHNIQUE: The study was acquired using full field digital technology and interpreted from soft copy. Digital Breast Tomosynthesis (DBT) images were obtained and used to assist in the interpretation of this examination. Current study was also evaluated with a Computer Aided Detection (CAD). Comparison is made to exams dated: 12/17/2020 ultrasound, 12/17/2020 ultrasound - [facility], 09/06/2021 mammogram - [facility], and 12/17/2020 mammogram - [facility]. There are scattered fibroglandular elements in both breasts. No significant masses, calcifications, or other findings are seen in either breast. IMPRESSION: NEGATIVE There is no abnormality seen in either breast to correspond with the discharge from the nipple, however, clinical followup is recommended. There is no mammographic evidence of malignancy. LIMITED ULTRASOUND OF LEFT BREAST: 01/03/2022 RESULT: Comparison is made to exams dated: 12/17/2020 ultrasound, 12/17/2020 ultrasound - [facility], 09/06/2021 mammogram - [facility], and 12/17/2020 mammogram - [facility]. Color flow and real-time ultrasound of the left breast 9-10 o'clock, and retroareolar regions were performed. Fregoso scale images of the real-time examination were reviewed. There is a benign 3.9 cm x 3.3 cm x 0.7 cm lobulated lesion in the left breast at 9 o'clock anterior depth 3 cm from the nipple. This lobulated lesion is hypoechoic. This correlates with the previous biopsy. There is an associated biopsy clip. IMPRESSION: BENIGN FINDING There is no sonographic evidence of malignancy. The 3.9 cm x 3.3 cm x 0.7 cm lobulated lesion in the left breast has a differential diagnosis of an abscess, seroma or post operative change and is benign. There is no abnormality seen in the left breast to correspond with the non-bloody discharge from the nipple, however, clinical followup is recommended. Return to annual mammogram screening schedule is recommended. Major Luong M.D. tab/:01/03/2022 15:17:40 Multiple national specialty organizations have released breast cancer screening guidelines for women at average risk for developing breast cancer - guidelines that are based on both evidence and opinion, yet differ on when to start and how often to screen for breast cancer. With representation from Breast Imaging, Internal Medicine, Women's Health, Family Medicine, and Medical/Surgical Oncology, the [facility] has carefully reviewed the data and reached the following consensus: 1) All women should engage in shared decision-making with their providers to decide when to start and how often to screen; 2) All women should have the opportunity to start screening mammography at age 40; 3) For women ages 45-55, we recommend annual screening mammograms; 4) For women ages 55 and over, we support both the transition from an annual to a biennial interval if this aligns more with patient's values and preferences, or continuation with annual screening; 5) All women should discuss with their providers when to stop screening mammograms. Time Cycle Operator(s): Jimena Martell RT(R)(M), [facility]; Elina Xiong, [facility] OVERALL STUDY BIRADS: 2 Benign finding Insulation Batting Machine Operator: Hima Transcribe Date/Time: Jan 03 2022 12:53P Dictated by : MAJOR LUONG MD This examination was interpreted and the report reviewed and electronically signed by: MAJOR LUONG MD on Jan 03 2022 3:17PM EST [id number] Normal [facility] US BREAST LTD LTon 01-03 [facility] US BREAST LTD LT * * *Final Report* * * DATE OF EXAM: Jan 03 2022 2:50PM AAW [id number] - [facility] US BREAST LTD LT / PROCEDURE REASON: multiple diagnoses * * * * Physician Interpretation * * * * #[id number] - [facility] KENIA W REMEDIOS RM #[id number] - [facility] US BREAST LTD LT BILATERAL DIGITAL DIAGNOSTIC MAMMOGRAM TOMOSYNTHESIS WITH CAD: 01/03/2022 HISTORY: Multiple Diagnoses\ Right breast nipple discharge. Left breast nipple discharge. Multiple Diagnoses/ Patient presents with left nipple discharge. RESULT: TECHNIQUE: The study was acquired using full field digital technology and interpreted from soft copy. Digital Breast Tomosynthesis (DBT) images were obtained and used to assist in the interpretation of this examination. Current study was also evaluated with a Computer Aided Detection (CAD). Comparison is made to exams dated: 12/17/2020 ultrasound, 12/17/2020 ultrasound - [facility], 09/06/2021 mammogram - [facility], and 12/17/2020 mammogram - [facility]. There are scattered fibroglandular elements in both breasts. No significant masses, calcifications, or other findings are seen in either breast. IMPRESSION: NEGATIVE There is no abnormality seen in either breast to correspond with the discharge from the nipple, however, clinical followup is recommended. There is no mammographic evidence of malignancy. LIMITED ULTRASOUND OF LEFT BREAST: 01/03/2022 RESULT: Comparison is made to exams dated: 12/17/2020 ultrasound, 12/17/2020 ultrasound - [facility], 09/06/2021 mammogram - [facility], and 12/17/2020 mammogram - [facility]. Color flow and real-time ultrasound of the left breast 9-10 o'clock, and retroareolar regions were performed. Fregoso scale images of the real-time examination were reviewed. There is a benign 3.9 cm x 3.3 cm x 0.7 cm lobulated lesion in the left breast at 9 o'clock anterior depth 3 cm from the nipple. This lobulated lesion is hypoechoic. This correlates with the previous biopsy. There is an associated biopsy clip. IMPRESSION: BENIGN FINDING There is no sonographic evidence of malignancy. The 3.9 cm x 3.3 cm x 0.7 cm lobulated lesion in the left breast has a differential diagnosis of an abscess, seroma or post operative change and is benign. There is no abnormality seen in the left breast to correspond with the non-bloody discharge from the nipple, however, clinical followup is recommended. Return to annual mammogram screening schedule is recommended. Major Luong M.D. tab/:01/03/2022 15:17:40 Multiple national specialty organizations have released breast cancer screening guidelines for women at average risk for developing breast cancer - guidelines that are based on both evidence and opinion, yet differ on when to start and how often to screen for breast cancer. With representation from Breast Imaging, Internal Medicine, Women's Health, Family Medicine, and Medical/Surgical Oncology, the [facility] has carefully reviewed the data and reached the following consensus: 1) All women should engage in shared decision-making with their providers to decide when to start and how often to screen; 2) All women should have the opportunity to start screening mammography at age 40; 3) For women ages 45-55, we recommend annual screening mammograms; 4) For women ages 55 and over, we support both the transition from an annual to a biennial interval if this aligns more with patient's values and preferences, or continuation with annual screening; 5) All women should discuss with their providers when to stop screening mammograms. Time Cycle Operator(s): Jimena Martell, RT(R)(M), [facility]; Elina Xiong, [facility] OVERALL STUDY BIRADS: 2 Benign finding Insulation Batting Machine Operator: Hima Transcribe Date/Time: Jan 03 2022 12:53P Dictated by : MAJOR LUONG MD This examination was interpreted and the report reviewed and electronically signed by: MAJOR LUONG MD on Jan 03 2022 3:17PM EST [id number] Normal [facility] US BREAST LTD RTon 01-03 [facility] US BREAST LTD RT * * *Final Report* * * DATE OF EXAM: Jan 03 2022 2:50PM AAW [id number] - [facility] US BREAST LTD RT / PROCEDURE REASON: Nipple discharge * * * * Physician Interpretation * * * * #[id number] - [facility] US BREAST LTD RT LIMITED ULTRASOUND OF RIGHT BREAST: 01/03/2022 HISTORY: Nipple Discharge/ Patient presents with right nipple discharge. RESULT: Comparison is made to exams dated: 01/03/2022 mammogram, 01/03/2022 ultrasound - [facility], 09/06/2021 mammogram - [facility], and 12/17/2020 ultrasound - [facility]. Real-time ultrasound of the right breast retroareolar was performed. Fregoso scale images of the real-time examination were reviewed. IMPRESSION: NEGATIVE There is no sonographic evidence of malignancy. There is no abnormality seen in the right breast to correspond with the non-bloody discharge from the nipple, however, clinical followup is recommended. Major garcia/hima:01/03/2022 15:22:42 Time Cycle Operator(s): Elina Xiong [facility] Ultrasound BI-RADS: 1 Negative Multiple national specialty organizations have released breast cancer screening guidelines for women at average risk for developing breast cancer - guidelines that are based on both evidence and opinion, yet differ on when to start and how often to screen for breast cancer. With representation from Breast Imaging, Internal Medicine, Women's Health, Family Medicine, and Medical/Surgical Oncology, the [facility] has carefully reviewed the data and reached the following consensus: 1) All women should engage in shared decision-making with their providers to decide when to start and how often to screen; 2) All women should have the opportunity to start screening mammography at age 40; 3) For women ages 45-55, we recommend annual screening mammograms; 4) For women ages 55 and over, we support both the transition from an annual to a biennial interval if this aligns more with patient's values and preferences, or continuation with annual screening; 5) All women should discuss with their providers when to stop screening mammograms. Insulation Batting Machine Operator: Hima Transcribe Date/Time: Jan 03 2022 2:14P Dictated by : MAJOR LUONG MD This examination was interpreted and the report reviewed and electronically signed by: MAJOR LUONG MD on Jan 03 2022 3:22PM EST [id number] [facility] Yoni 12-26-2021 TRISTA Telephone (AGGBRCR) ----- SETHVINOD D ([id number]) 1975 F Date Time Provider Department 12/26/21 TINA WOODARD During your visit today, we recorded the following information about you: Jackie Llanes RN 12/27/2021 8:50 AM Addendum Left message to speak with pt about breast concern Jackie Llanes RN 12/27/21- pt called this am-She went to see her Internal Medicine doctor yesterday and was started on Bactrim for left breast abscess. Relates area opened up last night and drained blood/pus. The tenderness is less and the erythema is less. Offered to see pt today but she is in rehab and a ride is difficult and prefers to keep next weeks appt. Told her to keep area clean and dry-apply dsd and to call if it worsens and we would see her sooner. Pt agreable with plan Jackie Llanes RN Allergies As of Date: 12/26/2021 Noted Allergy Reaction CEPHALEXIN 02/26/2018 4 - Hives 6 - Diarrhea FENOFIBRATE 08/31/2019 14 - Other: See Comments Comments: Hives with GI upset (emesis) ZOLOFT (SERTRALINE HCL) 06/23/2013 4 - Hives 6 - Diarrhea CLINDAMYCIN 09/29/2019 4 - Hives Comments: States has take since with no issue 08/06/20. Elba Broussard MA Date Reviewed: 12/26/2021 Reviewed by: Milly Feliciano APRN.HAND SCRAPER - Fully Assessed Reason for Visit: Patient Update [1234] Prescriptions as of 12/27/2021 - sulfamethoxazole-trimetho prim (BACTRIM DS) 800-160 mg per tablet Take 1 tablet by mouth twice daily for 7 days. - meloxicam (MOBIC) 7.5 mg tablet Take 1 tablet by mouth once daily. Take with food. - multivitamin tablet Take 1 tablet by mouth once daily. - oxybutynin XL (DITROPAN XL) 5 mg 24 hr tablet Take 5 mg by mouth once daily. - omeprazole (PRILOSEC) 40 mg capsule Take 1 capsule by mouth once daily. - ARIPiprazole (ABILIFY) 20 mg tablet Take 1 tablet by mouth once daily. Problem List As Of Date 12/26/2021 Noted Resolved GERD (gastroesophageal reflux disease) [K21.9] 06/23/2013 Weight gain [R63.5] 06/23/2013 Other and unspecified hyperlipidemia [E78.5] 11/20/2014 Obesity (BMI 30-39.9) [E66.9] 11/20/2014 Anxiety state, unspecified [F41.1] 11/20/2014 Tobacco use disorder [F17.200] 11/18/2019 Breast abscess [N61.1] 08/06/2020 History of breast abscess [Z87.2] 12/17/2020 Family history of breast cancer [Z80.3] 12/17/2020 Breast mass, left [N63.20] 12/06/2021 Nipple discharge [N64.52] 12/06/2021 Encounter Status:Closed by SAMINA LLANES on 12/27/21 [facility] Culture, urineon 12-21-2021 Bacteria identified Cx Nom (U) Positive [facility] Work Phone: HIV 1 and HIV-2 antibody ass ay with HIV-1 p24 antigen detectionon 12-21-2021 HIV 1+2 Ab+HIV1 p24 Ag IA Ql Non-Reactive Nonreactive [facility] Work Phone: No Panel Informationon 12-21 Hepatitis C Antibody Non-Reactive Nonreactive [facility] Work Phone: Comment on above: Non Reactive: < 0.8 Equivocal: >/= 0.8 to < 1.0 Reactive: >/= 1.0The CDC recommends that a reactive/equivocal HCV antibody result be followed up by the HCV Nucleic Acid Amplificationtest (728451) CNOVon 12-06-2021 CNOV Office Visit ([facility] R) ----- VINOD ANN ([id number]) 1975 F Date Time Provider Department 12/06/21 1:30 PM TINA WOODARD During your visit today, we recorded the following information about you: Pulse Blood pressure Weight Height 97/minute 140/86 86.2 kg 1.676 m Kendra Osborne MA 12/06/2021 1:44 PM Signed Patient is here today due to left breast cyst behind nipple. Patient stated when she would press on nipple, blood and discharge would come out. Patient stated now the area is hard. She was last seen by Dr. Sandoval 08-06-2020. SARITHA Terrazas DO 12/06/2021 2:24 PM [place] [address] SUBJECTIVE Chief Complaint: Patient presents with: Consult: Abnormal mammogram . HPI Vinod Paris Seth is a 46 year old female presents for evaluation of left breast cystic mass upper inner quadrant near the areola and complaints of nipple discharge, referral from general surgery in [place]. Patient describes her discharge as yellowish and green in color from both nipples for 2-1/2 years. Patient has an inflamed area on the left breast 10:00 which was larger before but she just finished a course of Bactrim for 10 days and reports that the area has improved. However she reports new onset nipple inversion and pain behind the areola on the left breast for about a month. Review of external imaging from September 2021 (mammogram and ultrasound of left breast) with no ultrasound correlate to palpable left subareolar mass or left nipple discharge. Patient referred here by general surgery for evaluation of bloody nipple discharge from the left breast. Per review of chart patient has a history of breast abscesses which have been incised and drained in the past. Patient is in rehab for drugs and alcohol. She is seen today with her peer from rehab. Nursing Notes: Kendra Osborne MA 12/06/2021 1:44 PM Signed Patient is here today due to left breast cyst behind nipple. Patient stated when she would press on nipple, blood and discharge would come out. Patient stated now the area is hard. She was last seen by Dr. Sandoval 08-06-2020. Kendra Osborne MA AGE AT [place] 10 AGE AT FIRST 25 FAMILY HISTORY OF BREAST CANCER Yes (IF YES) NUMBER OF FIRST DEGREE RELATIVES WITH BREAST CANCER 0 PREVIOUS BREAST BIOPSIES Yes (x1) (IF YES) PREVIOUS BREAST BIOPSY WITH ATYPICAL HYPERPLASIA No RACE BRIONNA MODEL RISK 5 YEAR 1.5 BRIONNA MODEL RISK LIFETIME 13.4 TYRER CUZICK SCORE 14.3 Review of Systems Constitutional: Negative for chills, fever, malaise/fatigue and weight loss. Respiratory: Negative for cough and shortness of breath. Cardiovascular: Negative for chest pain. Gastrointestinal: Negative for nausea and vomiting. Skin: Negative for itching and rash. Painful red mass left breast upper inner quadrant near areola with erythema of the breast and associated nipple discharge Neurological: Negative for dizziness and headaches. Endo/Heme/Allergies: Does not bruise/bleed easily. Psychiatric/Behavioral: Negative for depression. The patient is not nervous/anxious. 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 , did have small relapse 02/15 with of mother - Severe episode of recurrent major depressive disorder, without psychotic features (HCC) Kendra Padilla - Suicidal ideation PAST SURGICAL HISTORY Procedure Laterality Date - BX OF BREAST; INCISIONAL Left 08/29/2019 [facility]- Benign - COLONOSCOPY FLX DX W/COLLJ SPEC WHEN PFRMD 12/01/2019 Colonoscopy - PAST SURGICAL HISTORY OF 03/2010 gall bladder removed - PAST SURGICAL HISTORY OF Left wrist surgery when she was 15 years old - PAST SURGICAL HISTORY OF 2013 tubal ligation Social History Tobacco Use - Smoking status: Current Every Day Smoker Packs/day: 2.00 Years: 29.00 Pack years: 58.00 Types: Cigarettes - Smokeless tobacco: Never Used Vaping Use - Vaping Use: Never used Substance Use Topics - Alcohol use: No Comment: quit , small relapse in 02/15 with of mother. - Drug use: No FAMILY HISTORY Problem Relation Age of Onset - Lung Cancer Mother at 63 - Osteoporosis Mother - Alcohol/Drug Mother alcohol - Hypertension Father - Alcohol/Drug Father alcohol - Aneurysm Father abdominal - Prostate Cancer Father - Alcohol/Drug Sister drugs - other (Aids) Sister drug user - Aneurysm Sister head - Breast C (more content not included)... Normal [facility] XR Lumbar spine 3 Viewson IMPRESSION: Degenerative changes as described. Insulation Batting Machine Operator: PSCB Transcribe Date/Time: Sep 26 2021 9:19A Dictated by : MARGARITA PICKARD MD This examination was interpreted and the report reviewed and electronically signed by: MARGARITA PICKARD MD on Sep 26 2021 9:21AM [facility] DIVISION OF RADIOLOGY * * *Final Report* * * DATE OF EXAM: Sep 26 2021 9:07AM WOX [id number] - XR LUMBAR 3V AP/LAT/L5-S1 / PROCEDURE REASON: multiple diagnoses * * * * Physician Interpretation * * * * CLINICAL INDICATION: Back pain TECHNIQUE: 3 view radiographic study of the lumbar spine COMPARISON: None FINDINGS: There are 5 nonrib-bearing lumbar vertebral bodies. There is preservation of vertebral body height. There is mild disc space narrowing at L4/L5. There is moderate disc space narrowing at L5/S1. There is miniscule marginal osteophyte formation throughout the spine. There is facet joint arthrosis in the lower lumbar spine. There is no spondylolisthesis. Right upper quadrant surgical clips. Nonobstructive bowel gas pattern. DIVISION OF RADIOLOGY Provider, Odette Marisol [facility] - 09/26/2021 * * *Final Report* * * DATE OF EXAM: Sep 26 2021 9:07AM WOX [id number] - XR LUMBAR 3V AP/LAT/L5-S1 / PROCEDURE REASON: multiple diagnoses * * * * Physician Interpretation * * * * CLINICAL INDICATION: Back pain TECHNIQUE: 3 view radiographic study of the lumbar spine COMPARISON: None FINDINGS: There are 5 nonrib-bearing lumbar vertebral bodies. There is preservation of vertebral body height. There is mild disc space narrowing at L4/L5. There is moderate disc space narrowing at L5/S1. There is miniscule marginal osteophyte formation throughout the spine. There is facet joint arthrosis in the lower lumbar spine. There is no spondylolisthesis. Right upper quadrant surgical clips. Nonobstructive bowel gas pattern. IMPRESSION IMPRESSION: Degenerative changes as described. Insulation Batting Machine Operator: MAGGI Transcribe Date/Time: Sep 26 2021 9:19A Dictated by : MARGARITA PICKARD MD This examination was interpreted and the report reviewed and electronically signed by: MARGARITA PICKARD MD on Sep 26 2021 9:21AM EST [facility] Radiology Study observation (narrative) [facility] XR Lumbar spine 3 ViewsOrder ed By: [facility] Provider on 09-26-2021 [facility] CNPNon 01-07-2021 [facility] Telephone (HEMBAK) ----- VINOD ANN ([id number]) 1975 F Date Time Provider Department 01/07/21 JIMENA MORRIS (GENERATOR SWITCHBOARD OPERATOR.HAND SCRAPER) HEMBAK During your visit today, we recorded the following information about you: Jimena Morris APRN.CNP 01/07/2021 2:05 PM Signed I called Vinod Ann today in follow-up to the phone call I received from her yesterday. At that time, she was complaining of LEFT breast tenderness with bloody drainage. Discussed with Dr. Sandoval this morning. We are both hesitant to prescribe yet another course of antibiotics without the ability to examine her breast. She is unable to come [facility] today due to lack of transportation. Vinod is agreeable to the following plan: ? She will schedule an appointment with Dr. Watson (surgeon) in [place] for early next week for evaluation. ? If she starts to run a fever or develop erythema of the breast, she will present to [place] ED for evaluation. ? She is scheduled for a surgical consultation with Dr. Zimmerman on January 28 at 2:15 p.m. This also gives her time to arrange for transportation to [place]. Allergies As of Date: 01/07/2021 Noted Allergy Reaction CEPHALEXIN 02/26/2018 4 - Hives 6 - Diarrhea FENOFIBRATE 08/31/2019 14 - Other: See Comments Comments: Hives with GI upset (emesis) ZOLOFT (SERTRALINE HCL) 06/23/2013 4 - Hives 6 - Diarrhea CLINDAMYCIN 09/29/2019 4 - Hives Comments: States has take since with no issue 08/06/20. Elba Broussard MA Date Reviewed: 12/17/2020 Reviewed by: Jimena (Medical Transcription.Fountain Brush Assembler) Arturo - Fully Assessed Reason for Visit: Patient Update [1234] Prescriptions as of 01/07/2021 Sig: CALCIUM CITRATE 315 MG CALCIU* Take 1 tablet by mouth twice * OMEPRAZOLE 40 MG CAPSULE,ALDO* Take 1 capsule by mouth once * LAMOTRIGINE 200 MG TABLET DICYCLOMINE 20 MG TABLET Take 1 tablet by mouth twice * CHOLECALCIFEROL (VITAMIN D3) * Take 1 capsule by mouth one t* QUETIAPINE 25 MG TABLET Take 2 tablets by mouth at be* ARIPIPRAZOLE 20 MG TABLET Take 1 tablet by mouth once d* POTASSIUM ORAL Take 1 tablet by mouth once d* MULTIVITAMIN TABLET Take 1 tablet by mouth once d* Problem List As Of Date 01/07/2021 Noted Resolved GERD (gastroesophageal reflux disease) [K21.9] 06/23/2013 Weight gain [R63.5] 06/23/2013 Other and unspecified hyperlipidemia [E78.5] 11/20/2014 Obesity (BMI 30-39.9) [E66.9] 11/20/2014 Anxiety state, unspecified [F41.1] 11/20/2014 Tobacco use disorder [F17.200] 11/18/2019 Breast abscess [N61.1] 08/06/2020 More... History of breast abscess [Z87.2] 12/17/2020 Family history of breast cancer [Z80.3] 12/17/2020 Encounter Status:Closed by JIMENA MORRIS on 01/07/21 [facility] DIAGNOSTIC BILon 021 [facility] DIAGNOSTIC RM Final Report DATE OF EXAM: Dec 17 2020 2:42PM AAW 0620 - [facility] DIAGNOSTIC RM / PROCEDURE REASON: Breast abscess Physician Interpretation #[id number] - [facility] DIAGNOSTIC RM BILATERAL DIGITAL DIAGNOSTIC MAMMOGRAM WITH CAD: 12/17/2020 HISTORY: Breast Abscess/Bilateral breast abnormalities. RESULT: TECHNIQUE: The study was acquired using full field digital technology and interpreted from soft copy. Current study was also evaluated with a Computer Aided Detection (CAD). No prior exams were available for comparison. There are scattered fibroglandular elements in both breasts. There is a biopsy clip in the left breast. There is a focal asymmetry in the left breast central to the nipple in the retroareolar region. No other significant masses, calcifications, or other findings are seen in either breast. IMPRESSION: INCOMPLETE: NEEDS ADDITIONAL IMAGING EVALUATION The focal asymmetry in the left breast is indeterminate. An ultrasound is recommended. There is no abnormality seen in the right breast to correspond with the pain in the sub-areolar depth, however, ultrasound is recommended. SUMMARY: The patient will have her ultrasound exams today, which are dictated separately. Lamar kemp/hima:12/17/2020 16:31:14 Time Cycle Operator(s): Dheeraj West(Donny)(M), [facility] Mammogram BI-RADS: 0 Incomplete: needs additional imaging evaluation Multiple national specialty organizations have released breast cancer screening guidelines for women at average risk for developing breast cancer - guidelines that are based on both evidence and opinion, yet differ on when to start and how often to screen for breast cancer. With representation from Breast Imaging, Internal Medicine, Women's Health, Family Medicine, and Medical/Surgical Oncology, the [facility] has carefully reviewed the data and reached the following consensus: 1) All women should engage in shared decision-making with their providers to decide when to start and how often to screen; 2) All women should have the opportunity to start screening mammography at age 40; 3) For women ages 45-55, we recommend annual screening mammograms; 4) For women ages 55 and over, we support both the transition from an annual to a biennial interval if this aligns more with patient's values and preferences, or continuation with annual screening; 5) All women should discuss with their providers when to stop screening mammograms. Insulation Batting Machine Operator: Hima Transcribe Date/Time: Dec 17 2020 1:56P Dictated by : LAMAR ATWOOD MD This examination was interpreted and the report reviewed and electronically signed by: LAMAR ATWOOD MD on Dec 17 2020 4:31PM EST Normal [facility] US BREAST LTD LTon 12-17 [facility] US BREAST LTD LT Final Report DATE OF EXAM: Dec 17 2020 4:12PM AAW 0593 - [facility] US BREAST LTD LT / PROCEDURE REASON: Breast abscess Physician Interpretation #[id number] - [facility] US BREAST LTD LT LIMITED ULTRASOUND OF LEFT BREAST: 12/17/2020 HISTORY: Bilateral subareolar breast pain and swelling. History of breast abscesses. RESULT: Comparison is made to exam dated: 12/17/2020 mammogram - [facility]. Color flow and real-time ultrasound of the left breast retroareolar were performed. Fregoso scale images of the real-time examination were reviewed. There is 2.2 cm x 1.1 cm x 1 cm irregular fluid collection in the left breast central to the nipple in the retroareolar region. This irregular fluid collection is hypoechoic. This correlates as palpated, to the reported pain, and with mammography findings. Color flow imaging demonstrates that there is no increase in vascularity. IMPRESSION: PROBABLY BENIGN - SHORT TERM INTERVAL FOLLOW-UP RECOMMENDED The 2.2 cm x 1.1 cm x 1 cm irregular fluid collection in the left breast has a differential diagnosis of an abscess and is probably benign. A clinical follow-up or a clinical correlation are recommended. Follow up after completion of antibiotics is recommended. A follow-up ultrasound in 1 month is recommended. SUMMARY: The patient is under the care of Jimena Morris APRN CNP for further management and clinical follow up. Lamar kemp/hima:12/17/2020 16:35:28 Time Cycle Operator(s): Ashley Connell.S., [facility] Ultrasound BI-RADS: 3 Probably benign finding - short term interval follow-up recommended Multiple national specialty organizations have released breast cancer screening guidelines for women at average risk for developing breast cancer - guidelines that are based on both evidence and opinion, yet differ on when to start and how often to screen for breast cancer. With representation from Breast Imaging, Internal Medicine, Women's Health, Family Medicine, and Medical/Surgical Oncology, the [facility] has carefully reviewed the data and reached the following consensus: 1) All women should engage in shared decision-making with their providers to decide when to start and how often to screen; 2) All women should have the opportunity to start screening mammography at age 40; 3) For women ages 45-55, we recommend annual screening mammograms; 4) For women ages 55 and over, we support both the transition from an annual to a biennial interval if this aligns more with patient's values and preferences, or continuation with annual screening; 5) All women should discuss with their providers when to stop screening mammograms. Insulation Batting Machine Operator: Hima Transcribe Date/Time: Dec 17 2020 3:58P Dictated by : LAMAR ATWOOD MD This examination was interpreted and the report reviewed and electronically signed by: LAMAR ATWOOD MD on Dec 17 2020 4:35PM EST Normal [facility] US BREAST LTD RTon 12-17 [facility] US BREAST LTD RT Final Report DATE OF EXAM: Dec 17 2020 4:12PM AAW 0594 - [facility] BREAST LTD RT / PROCEDURE REASON: Breast abscess Physician Interpretation #[id number] - [facility] BREAST LTD RT LIMITED ULTRASOUND OF RIGHT BREAST: 12/17/2020 HISTORY: The patient presents for evaluation of bilateral subareolar pain. History of breast abscess. RESULT: Comparison is made to exam dated: 12/17/2020 mammogram - [facility]. Color flow and real-time ultrasound of the right breast retroareolar were performed. Fregoso scale images of the real-time examination were reviewed. There is mild skin thickening along the subareolar region at the site of reported pain and swelling. Trace fluid is demonstrated within the skin, measuring 7 mm. No drainable fluid collection is seen. Findings are consistent with mastitis given clinical history. IMPRESSION: BENIGN FINDING No drainable fluid collection. Skin thickening and trace fluid consistent with mastitis given reported symptoms and history. Clinical correlation and follow up is recommended. There is no sonographic evidence of malignancy. SUMMARY: The patient is under the care of Jimena Morris APRN CNP for the above results and clinical management. Lamar kemp/hima:12/17/2020 16:39:14 Time Cycle Operator(s): Amanda Gray R.D.M.S., [facility] Ultrasound BI-RADS: 2 Benign finding Multiple national specialty organizations have released breast cancer screening guidelines for women at average risk for developing breast cancer - guidelines that are based on both evidence and opinion, yet differ on when to start and how often to screen for breast cancer. With representation from Breast Imaging, Internal Medicine, Women's Health, Family Medicine, and Medical/Surgical Oncology, the [facility] has carefully reviewed the data and reached the following consensus: 1) All women should engage in shared decision-making with their providers to decide when to start and how often to screen; 2) All women should have the opportunity to start screening mammography at age 40; 3) For women ages 45-55, we recommend annual screening mammograms; 4) For women ages 55 and over, we support both the transition from an annual to a biennial interval if this aligns more with patient's values and preferences, or continuation with annual screening; 5) All women should discuss with their providers when to stop screening mammograms. Insulation Batting Machine Operator: Hima Transcribe Date/Time: Dec 17 2020 3:58P Dictated by : LAMAR ATWOOD MD This examination was interpreted and the report reviewed and electronically signed by: LAMAR ATWOOD MD on Dec 17 2020 4:39PM EST Normal [facility] Culture, urine Bacteria identified Cx Nom (U) Positive [facility] Work Phone: No Panel Information SARS-CoV-2 & FLU Antigen (Rapid) [facility] Work Phone: Vital Signs Date Time Vital Sign Value Performing Clinician Facility 03-09-2025 13:30-0400 Body mass index (BMI) [Ratio] 36.96 kg/m2 Valerie Hernandez APRN.HAND SCRAPER Work Phone: [facility] 03-09-2025 13:30-0400 Body weight 103.87 kg Valerie Hernandez APRN.HAND SCRAPER Work Phone: [facility] 03-09-2025 13:30-0400 Diastolic blood pressure 82 mm[Hg] Valerie Hernandez APRN.HAND SCRAPER Work Phone: [facility] 03-09-2025 13:30-0400 Heart rate 116 /min Valerie Jiménezpster GENERATOR SWITCHBOARD OPERATOR.HAND SCRAPER Work Phone: [facility] 03-09-2025 13:30-0400 Respiratory rate 17 /min Valerie Hernandez GENERATOR SWITCHBOARD OPERATOR.HAND SCRAPER Work Phone: [facility] 03-09-2025 13:30-0400 SaO2% (BldA) [Mass fraction] 96 % Valerie Hernandez GENERATOR SWITCHBOARD OPERATOR.HAND SCRAPER Work Phone: [facility] 03-09-2025 13:30-0400 Systolic blood pressure 126 mm[Hg] Valerie Hernandez GENERATOR SWITCHBOARD OPERATOR.HAND SCRAPER Work Phone: [facility] 03-08-2025 11:17-0400 Body height 167.6 cm Krislyn Aberegg PA Work Phone: [facility] 03-08-2025 11:17-0400 Body mass index (BMI) [Ratio] 37.08 kg/m2 Krislyn Aberegg PA Work Phone: [facility] 03-08-2025 11:17-0400 Body temperature 99.61 [degF] Krislyn Aberegg PA Work Phone: [facility] 03-08-2025 11:17-0400 Body weight 104.2 kg Krislyn Aberegg PA Work Phone: [facility] 03-08-2025 11:17-0400 Diastolic blood pressure 82 mm[Hg] Krislyn Aberegg PA Work Phone: [facility] 03-08-2025 11:17-0400 Heart rate 124 /min Krislyn Aberegg PA Work Phone: [facility] 03-08-2025 11:17-0400 Respiratory rate 16 /min Krislyn Aberegg PA Work Phone: [facility] 03-08-2025 11:17-0400 SaO2% (BldA) [Mass fraction] 97 % Krislyn Aberegg PA Work Phone: [facility] 03-08-2025 11:17-0400 Systolic blood pressure 142 mm[Hg] Liset HAMPTON Work Phone: [facility] 02-16-2025 08:56-0400 Body mass index (BMI) [Ratio] 36.8 kg/m2 Debra Carrillo MD Work Phone: [facility] 02-16-2025 08:56-0400 Body temperature 97.59 [degF] Debra Carrillo MD Work Phone: [facility] 02-16-2025 08:56-0400 Body weight 103.42 kg Debra Carrillo MD Work Phone: [facility] 02-16-2025 08:56-0400 Diastolic blood pressure 66 mm[Hg] Debra Carrillo MD Work Phone: [facility] 02-16-2025 08:56-0400 Heart rate 103 /min Debra Carrillo MD Work Phone: [facility] 02-16-2025 08:56-0400 Respiratory rate 18 /min Debra Carrillo MD Work Phone: [facility] 02-16-2025 08:56-0400 SaO2% (BldA) [Mass fraction] 96 % Debra Carrillo MD Work Phone: [facility] 02-16-2025 08:56-0400 Systolic blood pressure 103 mm[Hg] Debra Carrillo MD Work Phone: [facility] 02-10-2025 13:22-0400 Diastolic blood pressure 74 mm[Hg] Kimberly Maradiaga DO Work Phone: [facility] 02-10-2025 13:22-0400 Heart rate 100 /min Kimberly Maradiaga DO Work Phone: [facility] 02-10-2025 13:22-0400 SaO2% (BldA) [Mass fraction] 95 % Kimberly Maradiaga DO Work Phone: [facility] 02-10-2025 13:22-0400 Systolic blood pressure 113 mm[Hg] Kimberly Maradiaga DO Work Phone: [facility] 01-12-2025 09:59-0400 Body height 165.1 cm Blanca Boby GENERATOR SWITCHBOARD OPERATOR.HAND SCRAPER Work Phone: [facility] 01-12-2025 09:59-0400 Body mass index (BMI) [Ratio] 38.51 kg/m2 Blanca Boby GENERATOR SWITCHBOARD OPERATOR.HAND SCRAPER Work Phone: [facility] 01-12-2025 09:59-0400 Body temperature 97.5 [degF] Blanca Boby GENERATOR SWITCHBOARD OPERATOR.HAND SCRAPER Work Phone: [facility] 01-12-2025 09:59-0400 Body weight 104.96 kg Blanca Boby GENERATOR SWITCHBOARD OPERATOR.HAND SCRAPER Work Phone: [facility] 01-12-2025 09:59-0400 Heart rate 122 /min Blanca Boby GENERATOR SWITCHBOARD OPERATOR.HAND SCRAPER Work Phone: [facility] 01-12-2025 09:59-0400 SaO2% (BldA) [Mass fraction] 99 % Blanca Boby GENERATOR SWITCHBOARD OPERATOR.HAND SCRAPER Work Phone: [facility] 01-07-2025 13:11-0500 Body temperature 97.5 [degF] Franco Roblero MD Work Phone: [facility] 01-01-2025 10:31-0500 Body height 165.1 cm Brando Lopez GENERATOR SWITCHBOARD OPERATOR.CNM Work Phone: [facility] [facility] 01-01-2025 10:31-0500 Body mass index (BMI) [Ratio] 37.28 kg/m2 Brando Lopez GENERATOR SWITCHBOARD OPERATOR.CNM Work Phone: [facility] 01-01-2025 10:31-0500 Body weight 101.61 kg Brando Lopez GENERATOR SWITCHBOARD OPERATOR.CNM Work Phone: [facility] 01-01-2025 10:31-0500 Diastolic blood pressure 70 mm[Hg] Brando Lopez GENERATOR SWITCHBOARD OPERATOR.CNM Work Phone: [facility] 01-01-2025 10:31-0500 Systolic blood pressure 132 mm[Hg] Brando Lopez GENERATOR SWITCHBOARD OPERATOR.CNM Work Phone: [facility] 12-31-2024 10:04-0500 Body temperature 97.9 [degF] Blanca Boby GENERATOR SWITCHBOARD OPERATOR.HAND SCRAPER Work Phone: [facility] 12-25-2024 08:54-0500 Body temperature 97.81 [degF] Blanca Boby GENERATOR SWITCHBOARD OPERATOR.HAND SCRAPER Work Phone: [facility] 12-25-2024 08:54-0500 Diastolic blood pressure 70 mm[Hg] Blanca Boby GENERATOR SWITCHBOARD OPERATOR.HAND SCRAPER Work Phone: [facility] 12-25-2024 08:54-0500 Heart rate 104 /min Blanca Boby GENERATOR SWITCHBOARD OPERATOR.HAND SCRAPER Work Phone: [facility] 12-25-2024 08:54-0500 Respiratory rate 14 /min Blanca Boby GENERATOR SWITCHBOARD OPERATOR.HAND SCRAPER Work Phone: [facility] 12-25-2024 08:54-0500 SaO2% (BldA) [Mass fraction] 95 % Blanca Boby GENERATOR SWITCHBOARD OPERATOR.HAND SCRAPER Work Phone: [facility] 12-25-2024 08:54-0500 Systolic blood pressure 106 mm[Hg] Blanca Boby GENERATOR SWITCHBOARD OPERATOR.HAND SCRAPER Work Phone: [facility] 12-17-2024 08:48-0500 Body mass index (BMI) [Ratio] 36.63 kg/m2 Franco Roblero MD Work Phone: [facility] 12-17-2024 08:48-0500 Body temperature 98.49 [degF] Franco Roblero MD Work Phone: [facility] 12-17-2024 08:48-0500 Body weight 102.15 kg Franco Roblero MD Work Phone: [facility] 12-17-2024 08:48-0500 Diastolic blood pressure 76 mm[Hg] Franco Roblero MD Work Phone: [facility] 12-17-2024 08:48-0500 Heart rate 122 /min Franco Roblero MD Work Phone: [facility] 12-17-2024 08:48-0500 Respiratory rate 19 /min Franco Roblero MD Work Phone: [facility] 12-17-2024 08:48-0500 SaO2% (BldA) [Mass fraction] 95 % Franco Roblero MD Work Phone: [facility] 12-17-2024 08:48-0500 Systolic blood pressure 110 mm[Hg] Franco Roblero MD Work Phone: [facility] 12-16-2024 13:04-0500 Body height 167 cm Isatu Nieto MD Work Phone: [facility] 12-16-2024 13:04-0500 Body mass index (BMI) [Ratio] 36.5 kg/m2 Isatu Nieto MD Work Phone: [facility] 12-16-2024 13:04-0500 Body weight 101.79 kg Isatu Nieto MD Work Phone: [facility] 12-16-2024 13:04-0500 Diastolic blood pressure 75 mm[Hg] Isatu Nieto MD Work Phone: [facility] 12-16-2024 13:04-0500 Heart rate 106 /min Isatu Nieto MD Work Phone: [facility] 12-16-2024 13:04-0500 SaO2% (BldA) [Mass fraction] 94 % Isatu Nieto MD Work Phone: [facility] 12-16-2024 13:04-0500 Systolic blood pressure 117 mm[Hg] Isatu Nieto MD Work Phone: [facility] 12-10-2024 13:20-0500 Body mass index (BMI) [Ratio] 37.11 kg/m2 Franco Roblero MD Work Phone: [facility] 12-10-2024 13:20-0500 Body weight 101.15 kg Franco Roblero MD Work Phone: [facility] 12-10-2024 13:20-0500 Diastolic blood pressure 68 mm[Hg] Franco Roblero MD Work Phone: [facility] 12-10-2024 13:20-0500 Heart rate 117 /min Franco Roblero MD Work Phone: [facility] 12-10-2024 13:20-0500 Respiratory rate 16 /min Franco Roblero MD Work Phone: [facility] 12-10-2024 13:20-0500 SaO2% (BldA) [Mass fraction] 94 % Franco Roblero MD Work Phone: [facility] 12-10-2024 13:20-0500 Systolic blood pressure 108 mm[Hg] Franco Roblero MD Work Phone: [facility] 12-03-2024 13:18-0500 Body temperature 97.5 [degF] Blanca Boby GENERATOR SWITCHBOARD OPERATOR.HAND SCRAPER Work Phone: [facility] 12-03-2024 13:18-0500 Diastolic blood pressure 84 mm[Hg] Blanca Boby GENERATOR SWITCHBOARD OPERATOR.HAND SCRAPER Work Phone: [facility] 12-03-2024 13:18-0500 Heart rate 127 /min Blanca Boby GENERATOR SWITCHBOARD OPERATOR.HAND SCRAPER Work Phone: [facility] 12-03-2024 13:18-0500 SaO2% (BldA) [Mass fraction] 95 % Blanca Boby GENERATOR SWITCHBOARD OPERATOR.HAND SCRAPER Work Phone: [facility] 12-03-2024 13:18-0500 Systolic blood pressure 124 mm[Hg] Blanca Boby GENERATOR SWITCHBOARD OPERATOR.HAND SCRAPER Work Phone: [facility] 11-11-2024 11:50-0500 Body height 165.1 cm MAHSA Pisano MD Work Phone: [facility] 11-11-2024 11:50-0500 Body mass index (BMI) [Ratio] 38.21 kg/m2 MAHSA Pisano MD Work Phone: [facility] 11-11-2024 11:50-0500 Body weight 104.15 kg MAHSA Pisano MD [facility] 11-11-2024 11:50-0500 Diastolic blood pressure 70 mm[Hg] MAHSA Pisano MD Work Phone: [facility] 11-11-2024 11:50-0500 Heart rate 114 /min MAHSA Pisano MD Work Phone: [facility] 11-11-2024 11:50-0500 Respiratory rate 21 /min MAHSA Pisano MD Work Phone: [facility] 11-11-2024 11:50-0500 SaO2% (BldA) [Mass fraction] 94 % MAHSA Pisano MD Work Phone: [facility] 11-11-2024 11:50-0500 Systolic blood pressure 110 mm[Hg] MAHSA Pisano MD Work Phone: [facility] 11-10-2024 20:19-0500 Body mass index (BMI) [Ratio] 38.94 kg/m2 Ricki Archer MD Work Phone: [facility] 11-10-2024 20:19-0500 Body weight 106.14 kg Ricki Archer MD Work Phone: [facility] Comment on above: reported 11-10-2024 20:15-0500 Body temperature 98.71 [degF] Ricki Archer MD Work Phone: [facility] 11-10-2024 20:15-0500 Diastolic blood pressure 79 mm[Hg] Ricki Archer MD Work Phone: [facility] 11-10-2024 20:15-0500 Heart rate 110 /min Ricki Archer MD Work Phone: [facility] 11-10-2024 20:15-0500 Respiratory rate 16 /min Ricki Archer MD Work Phone: [facility] 11-10-2024 20:15-0500 SaO2% (BldA) [Mass fraction] 95 % Ricki Archer MD Work Phone: [facility] 11-10-2024 20:15-0500 Systolic blood pressure 105 mm[Hg] Ricki Archer MD Work Phone: [facility] 11-07-2024 10:45-0500 Body height 165.1 cm Ant Hodge GENERATOR SWITCHBOARD OPERATOR-HAND SCRAPER Work Phone: [facility] 11-07-2024 10:45-0500 Body mass index (BMI) [Ratio] 38.64 kg/m2 Ant Hodge GENERATOR SWITCHBOARD OPERATOR-HAND SCRAPER Work Phone: [facility] 11-07-2024 10:45-0500 Body temperature 97.2 [degF] Ant Hodge GENERATOR SWITCHBOARD OPERATOR-HAND SCRAPER Work Phone: [facility] 11-07-2024 10:45-0500 Body weight 105.33 kg Ant Hodge GENERATOR SWITCHBOARD OPERATOR-HAND SCRAPER Work Phone: [facility] 11-07-2024 10:45-0500 Diastolic blood pressure 80 mm[Hg] Ant Hodge GENERATOR SWITCHBOARD OPERATOR-HAND SCRAPER Work Phone: [facility] 11-07-2024 10:45-0500 Heart rate 121 /min Ant Hodge GENERATOR SWITCHBOARD OPERATOR-HAND SCRAPER Work Phone: [facility] 11-07-2024 10:45-0500 Respiratory rate 18 /min Ant Hodge GENERATOR SWITCHBOARD OPERATOR-HAND SCRAPER Work Phone: [employer] [facility] 11-07-2024 10:45-0500 SaO2% (BldA) [Mass fraction] 97 % Ant Hodge GENERATOR SWITCHBOARD OPERATOR-HAND SCRAPER Work Phone: [facility] 11-07-2024 10:45-0500 Systolic blood pressure 110 mm[Hg] Ant Hodge GENERATOR SWITCHBOARD OPERATOR-HAND SCRAPER Work Phone: [facility] 11-04-2024 09:32-0500 Body height 165.1 cm MAHSA Pisano MD Work Phone: [facility] 11-04-2024 09:32-0500 Body mass index (BMI) [Ratio] 39.04 kg/m2 MAHSA Pisano MD Work Phone: [facility] 11-04-2024 09:32-0500 Body weight 106.41 kg MAHSA Pisano MD Work Phone: [facility] 11-04-2024 09:32-0500 Diastolic blood pressure 60 mm[Hg] MAHSA Pisano MD Work Phone: [facility] 11-04-2024 09:32-0500 Respiratory rate 20 /min MAHSA Pisano MD Work Phone: [employer] [facility] 11-04-2024 09:32-0500 Systolic blood pressure 122 mm[Hg] MAHSA Pisano MD Work Phone: [facility] 11-01-2024 19:55-0500 Diastolic blood pressure 77 mm[Hg] Ant Hodge GENERATOR SWITCHBOARD OPERATOR-HAND SCRAPER Work Phone: [facility] 11-01-2024 19:55-0500 Heart rate 108 /min Ant Hodge GENERATOR SWITCHBOARD OPERATOR-HAND SCRAPER Work Phone: [facility] 11-01-2024 19:55-0500 SaO2% (BldA) [Mass fraction] 95 % Ant Hodge GENERATOR SWITCHBOARD OPERATOR-HAND SCRAPER Work Phone: [facility] 11-01-2024 19:55-0500 Systolic blood pressure 143 mm[Hg] Ant Hodge GENERATOR SWITCHBOARD OPERATOR-HAND SCRAPER Work Phone: [facility] 11-01-2024 17:45-0500 Body temperature 98.1 [degF] Ant Hodge GENERATOR SWITCHBOARD OPERATOR-HAND SCRAPER Work Phone: [employer] 11-01-2024 17:45-0500 Respiratory rate 16 /min Ant Hodge GENERATOR SWITCHBOARD OPERATOR-HAND SCRAPER Work Phone: [facility] 10-30-2024 13:40-0500 Diastolic blood pressure 72 mm[Hg] MAHSA Pisano MD Work Phone: [facility] 10-30-2024 13:40-0500 Heart rate 92 /min MAHSA Pisano MD Work Phone: [facility] 10-30-2024 13:40-0500 Respiratory rate 17 /min MAHSA Pisano MD Work Phone: 0(229)[phone] [place] [address] 10-30-2024 13:40-0500 SaO2% (BldA) [Mass fraction] 92 % MAHSA Pisano MD Work Phone: [facility] 10-30-2024 13:40-0500 Systolic blood pressure 123 mm[Hg] MAHSA Pisano MD Work Phone: 0(684)856-857587 [place] [address] 10-30-2024 12:50-0500 Body temperature 97.5 [degF] MAHSA Pisano MD Work Phone: 3(470)533-0169[address] [place] [address] 10-30-2024 10:52-0500 Body height 165.1 cm MAHSA Pisano MD Work Phone: 0(047)845-313757 [place] [address] 10-30-2024 10:52-0500 Body mass index (BMI) [Ratio] 39.44 kg/m2 MAHSA Pisano MD Work Phone: 2(390)[phone] [place] [address] 10-30-2024 10:52-0500 Body weight 107.5 kg MAHSA Pisano MD Work Phone: 3(212)709-906757 [place] [address] 10-22-2024 09:30-0500 Body height 165.1 cm MAHSA Pisano MD Work Phone: [facility] 10-22-2024 09:30-0500 Body mass index (BMI) [Ratio] 39.27 kg/m2 MAHSA Pisano MD Work Phone: [facility] 10-22-2024 09:30-0500 Body weight 107.05 kg MAHSA Pisano MD Work Phone: [facility] 10-22-2024 09:30-0500 Diastolic blood pressure 76 mm[Hg] MAHSA Pisano MD Work Phone: [facility] 10-22-2024 09:30-0500 Heart rate 108 /min MAHSA Pisano MD Work Phone: [facility] 10-22-2024 09:30-0500 Systolic blood pressure 119 mm[Hg] MAHSA Pisano MD Work Phone: [facility] 10-08-2024 09:36-0500 Body height 165.1 cm MAHSA Pisano MD Work Phone: [facility] 10-08-2024 09:36-0500 Body mass index (BMI) [Ratio] 39.37 kg/m2 MAHSA Pisano MD Work Phone: [facility] 10-08-2024 09:36-0500 Body weight 107.32 kg MAHSA Pisano MD Work Phone: [facility] 10-08-2024 09:36-0500 Diastolic blood pressure 90 mm[Hg] MAHSA Pisano MD Work Phone: [facility] 10-08-2024 09:36-0500 Heart rate 115 /min MAHSA Pisano MD Work Phone: [facility] 10-08-2024 09:36-0500 SaO2% (BldA) [Mass fraction] 96 % MAHSA Pisano MD Work Phone: [facility] 10-08-2024 09:36-0500 Systolic blood pressure 152 mm[Hg] MAHSA Pisano MD Work Phone: [facility] 09-29-2024 11:06-0500 Body temperature 97.3 [degF] Leeann Auck GENERATOR SWITCHBOARD OPERATOR-HAND SCRAPER Work Phone: [facility] 09-29-2024 11:06-0500 Diastolic blood pressure 88 mm[Hg] Leeann Auck GENERATOR SWITCHBOARD OPERATOR-HAND SCRAPER Work Phone: [facility] 09-29-2024 11:06-0500 Heart rate 96 /min Leeann Auck GENERATOR SWITCHBOARD OPERATOR-HAND SCRAPER Work Phone: [facility] 09-29-2024 11:06-0500 Systolic blood pressure 119 mm[Hg] Leeann Thompson GENERATOR SWITCHBOARD OPERATOR-HAND SCRAPER Work Phone: [facility] 09-26-2024 15:39-0500 Body temperature 97.39 [degF] MAHSA Pisano MD Work Phone: [facility] 09-26-2024 15:39-0500 Diastolic blood pressure 80 mm[Hg] MAHSA Pisano MD Work Phone: [facility] 09-26-2024 15:39-0500 Heart rate 89 /min MAHSA Pisano MD Work Phone: [facility] 09-26-2024 15:39-0500 Respiratory rate 18 /min MAHSA Pisano MD Work Phone: [facility] 09-26-2024 15:39-0500 SaO2% (BldA) [Mass fraction] 95 % MAHSA Pisano MD Work Phone: [facility] 09-26-2024 15:39-0500 Systolic blood pressure 127 mm[Hg] MAHSA Pisano MD Work Phone: [facility] 09-26-2024 10:27-0500 Body height 165.1 cm MAHSA Pisano MD Work Phone: [facility] 09-26-2024 10:27-0500 Body mass index (BMI) [Ratio] 38.94 kg/m2 MAHSA Pisano MD Work Phone: [facility] 09-26-2024 10:27-0500 Body weight 106.14 kg MAHSA Pisano MD Work Phone: [employer] [facility] 09-25-2024 11:20-0500 Body mass index (BMI) [Ratio] 38.47 kg/m2 Rachael Contreras MD Work Phone: [facility] 09-25-2024 11:20-0500 Body weight 104.87 kg Rachael Contreras MD Work Phone: [facility] 09-25-2024 11:20-0500 Diastolic blood pressure 79 mm[Hg] Rachael Contreras MD Work Phone: [facility] 09-25-2024 11:20-0500 Heart rate 112 /min Rachael Contreras MD Work Phone: [facility] 09-25-2024 11:20-0500 Systolic blood pressure 118 mm[Hg] Rachael Contreras MD Work Phone: [facility] 09-23-2024 08:21-0500 Body height 165.1 cm Tina Andrews GENERATOR SWITCHBOARD OPERATOR-HAND SCRAPER Work Phone: [facility] 09-23-2024 08:21-0500 Body mass index (BMI) [Ratio] 39.04 kg/m2 Tina Andrews APRN-HAND SCRAPER Work Phone: [facility] 09-23-2024 08:21-0500 Body temperature 97.81 [degF] Tina Andrews APRN-HAND SCRAPER Work Phone: [facility] 09-23-2024 08:21-0500 Body weight 106.41 kg Tina Andrews APRN-HAND SCRAPER Work Phone: [facility] 09-23-2024 08:21-0500 Diastolic blood pressure 64 mm[Hg] Tina Andrews APRN-HAND SCRAPER Work Phone: [facility] 09-23-2024 08:21-0500 Heart rate 108 /min Tina Andrews APRN-HAND SCRAPER Work Phone: [facility] 09-23-2024 08:21-0500 Respiratory rate 18 /min Tina Andrews APRN-HAND SCRAPER Work Phone: [facility] 09-23-2024 08:21-0500 SaO2% (BldA) [Mass fraction] 99 % Tina Andrews APRN-HAND SCRAPER Work Phone: [facility] 09-23-2024 08:21-0500 Systolic blood pressure 135 mm[Hg] Tina Andrews APRN-HAND SCRAPER Work Phone: [facility] 09-18-2024 18:10-0500 Body height 165.1 cm Tiff Wilson CNP Work Phone: [facility] 09-18-2024 18:10-0500 Body mass index (BMI) [Ratio] 38.54 kg/m2 Tiff Wilson HAND SCRAPER Work Phone: [facility] 09-18-2024 18:10-0500 Body temperature 97.7 [degF] Tiff Wilson HAND SCRAPER Work Phone: [facility] 09-18-2024 18:10-0500 Body weight 105.05 kg Tiff Wilson HAND SCRAPER Work Phone: [facility] 09-18-2024 18:10-0500 Diastolic blood pressure 79 mm[Hg] Tiff Wilson CNP Work Phone: [facility] 09-18-2024 18:10-0500 Heart rate 117 /min Tiff Wilson CNP Work Phone: [facility] 09-18-2024 18:10-0500 Respiratory rate 18 /min Tiff Wilson CNP Work Phone: [facility] 09-18-2024 18:10-0500 SaO2% (BldA) [Mass fraction] 96 % Tiff Wilson CNP Work Phone: [facility] 09-18-2024 18:10-0500 Systolic blood pressure 133 mm[Hg] Tiff Wilson HAND SCRAPER Work Phone: [facility] 09-08-2024 14:14-0500 Body height 167.6 cm Tina Andrews GENERATOR SWITCHBOARD OPERATOR-HAND SCRAPER Work Phone: [facility] 09-08-2024 14:14-0500 Body mass index (BMI) [Ratio] 37.51 kg/m2 Tina Andrews GENERATOR SWITCHBOARD OPERATOR-HAND SCRAPER Work Phone: [facility] 09-08-2024 14:14-0500 Body temperature 98.71 [degF] Tina Andrews GENERATOR SWITCHBOARD OPERATOR-HAND SCRAPER Work Phone: [facility] 09-08-2024 14:14-0500 Body weight 105.42 kg Tina Andrews APRN-HAND SCRAPER Work Phone: [facility] 09-08-2024 14:14-0500 Diastolic blood pressure 62 mm[Hg] Tina Andrews APRN-HAND SCRAPER Work Phone: [facility] 09-08-2024 14:14-0500 Heart rate 128 /min Tina Andrews APRN-HAND SCRAPER Work Phone: [facility] 09-08-2024 14:14-0500 Respiratory rate 18 /min Tina Andrews APRN-HAND SCRAPER Work Phone: [facility] 09-08-2024 14:14-0500 SaO2% (BldA) [Mass fraction] 96 % Tina Andrews APRN-HAND SCRAPER Work Phone: [facility] 09-08-2024 14:14-0500 Systolic blood pressure 86 mm[Hg] Tina Andrews APRN-HAND SCRAPER Work Phone: [facility] 08-21-2024 10:57-0400 Body height 165.1 cm MAHSA Pisano MD Work Phone: [facility] 08-21-2024 10:57-0400 Body mass index (BMI) [Ratio] 38.12 kg/m2 MAHSA Pisano MD Work Phone: [facility] 08-21-2024 10:57-0400 Body weight 103.92 kg MAHSA Pisano MD Work Phone: [facility] 08-21-2024 10:57-0400 Diastolic blood pressure 72 mm[Hg] MAHSA Pisano MD Work Phone: [facility] 08-21-2024 10:57-0400 Heart rate 105 /min MAHSA Pisano MD Work Phone: [facility] 08-21-2024 10:57-0400 Respiratory rate 19 /min MAHSA Pisano MD Work Phone: [facility] 08-21-2024 10:57-0400 SaO2% (BldA) [Mass fraction] 95 % NA Matthew BOBBY Work Phone: [facility] 08-21-2024 10:57-0400 Systolic blood pressure 110 mm[Hg] MAHSA Pisano MD Work Phone: [facility] 08-06-2024 10:09-0400 Body height 165.1 cm Ant Hodge GENERATOR SWITCHBOARD OPERATOR-HAND SCRAPER Work Phone: [facility] 08-06-2024 10:09-0400 Body mass index (BMI) [Ratio] 38.37 kg/m2 Atn Hodge GENERATOR SWITCHBOARD OPERATOR-HAND SCRAPER Work Phone: [facility] 08-06-2024 10:09-0400 Body temperature 97.7 [degF] Ant Hodge GENERATOR SWITCHBOARD OPERATOR-HAND SCRAPER Work Phone: [facility] 08-06-2024 10:09-0400 Body weight 104.6 kg Ant Hodge GENERATOR SWITCHBOARD OPERATOR-HAND SCRAPER Work Phone: [facility] 08-06-2024 10:09-0400 Diastolic blood pressure 74 mm[Hg] Ant Hodge GENERATOR SWITCHBOARD OPERATOR-HAND SCRAPER Work Phone: [facility] 08-06-2024 10:09-0400 Heart rate 97 /min Ant Hodge GENERATOR SWITCHBOARD OPERATOR-HAND SCRAPER Work Phone: [facility] 08-06-2024 10:09-0400 Respiratory rate 18 /min Ant Hodge GENERATOR SWITCHBOARD OPERATOR-HAND SCRAPER Work Phone: [facility] 08-06-2024 10:09-0400 SaO2% (BldA) [Mass fraction] 96 % Ant Arredondod GENERATOR SWITCHBOARD OPERATOR-HAND SCRAPER Work Phone: [facility] 08-06-2024 10:09-0400 Systolic blood pressure 126 mm[Hg] Ant Arredondod GENERATOR SWITCHBOARD OPERATOR-HAND SCRAPER Work Phone: [facility] 08-01-2024 09:41-0400 Body height 165.1 cm She Treadwell MD Work Phone: [facility] 08-01-2024 09:41-0400 Body mass index (BMI) [Ratio] 38.27 kg/m2 She Treadwell MD Work Phone: [facility] 08-01-2024 09:41-0400 Body temperature 97.2 [degF] She Treadwell MD Work Phone: [facility] 08-01-2024 09:41-0400 Body weight 104.33 kg She Treadwell MD Work Phone: [facility] 07-21-2024 12:54-0400 Body height 165.1 cm Ant Hodge GENERATOR SWITCHBOARD OPERATOR-HAND SCRAPER Work Phone: [facility] 07-21-2024 12:54-0400 Body mass index (BMI) [Ratio] 38.26 kg/m2 Ant Naveen GENERATOR SWITCHBOARD OPERATOR-HAND SCRAPER Work Phone: [facility] 07-21-2024 12:54-0400 Body temperature 98.29 [degF] Ant Arredondod GENERATOR SWITCHBOARD OPERATOR-HAND SCRAPER Work Phone: [facility] 07-21-2024 12:54-0400 Body weight 104.28 kg Ant Naveen GENERATOR SWITCHBOARD OPERATOR-HAND SCRAPER Work Phone: [facility] 07-21-2024 12:54-0400 Diastolic blood pressure 82 mm[Hg] Ant Hodge GENERATOR SWITCHBOARD OPERATOR-HAND SCRAPER Work Phone: [facility] 07-21-2024 12:54-0400 Heart rate 118 /min Ant Hodge GENERATOR SWITCHBOARD OPERATOR-HAND SCRAPER Work Phone: [employer] [facility] 07-21-2024 12:54-0400 Respiratory rate 18 /min Ant Hodge GENERATOR SWITCHBOARD OPERATOR-HAND SCRAPER Work Phone: [facility] 07-21-2024 12:54-0400 SaO2% (BldA) [Mass fraction] 96 % Ant Hodge GENERATOR SWITCHBOARD OPERATOR-HAND SCRAPER Work Phone: [facility] 07-21-2024 12:54-0400 Systolic blood pressure 140 mm[Hg] Ant Hodge GENERATOR SWITCHBOARD OPERATOR-HAND SCRAPER Work Phone: [facility] 04-04-2024 08:45-0400 Body height 165.1 cm Franco Roblero MD Work Phone: [facility] 04-04-2024 08:45-0400 Body mass index (BMI) [Ratio] 37.01 kg/m2 Franco Roblero MD Work Phone: [facility] 04-04-2024 08:45-0400 Body temperature 97.11 [degF] Franco Roblero MD Work Phone: [facility] 04-04-2024 08:45-0400 Body weight 100.88 kg Franco Roblero MD Work Phone: [facility] 04-04-2024 08:45-0400 Diastolic blood pressure 78 mm[Hg] Franco Roblero MD Work Phone: [facility] 04-04-2024 08:45-0400 Heart rate 116 /min Franco Roblero MD Work Phone: [facility] 04-04-2024 08:45-0400 SaO2% (BldA) [Mass fraction] 100 % Franco Roblero MD Work Phone: [facility] 04-04-2024 08:45-0400 Systolic blood pressure 136 mm[Hg] Franco Roblero MD Work Phone: [facility] 02-26-2024 12:56-0400 Body height 167.6 cm Aimee Kern MD Work Phone: [facility] 02-26-2024 12:56-0400 Body mass index (BMI) [Ratio] 35.96 kg/m2 Aimee Kern MD Work Phone: [facility] 02-26-2024 12:56-0400 Body weight 101 kg Aimee Kern MD Work Phone: [facility] 02-26-2024 12:56-0400 Diastolic blood pressure 71 mm[Hg] Aimee Kern MD Work Phone: [facility] 02-26-2024 12:56-0400 Heart rate 108 /min Aimee Kern MD Work Phone: [facility] 02-26-2024 12:56-0400 SaO2% (BldA) [Mass fraction] 94 % Aimee Kern MD Work Phone: [facility] 02-26-2024 12:56-0400 Systolic blood pressure 124 mm[Hg] Aimee Kern MD Work Phone: [facility] 02-19-2024 13:14-0400 Body weight 99.79 kg Endy De Anda MD Work Phone: [facility] 02-19-2024 13:14-0400 Diastolic blood pressure 71 mm[Hg] Endy De Anda MD Work Phone: [facility] 02-19-2024 13:14-0400 Heart rate 124 /min [facility] 02-19-2024 13:14-0400 Respiratory rate 20 /min [facility] 02-19-2024 13:14-0400 SaO2% (BldA) [Mass fraction] 94 % Endy De Anda MD Work Phone: [facility] Comment on above: room air 02-19-2024 13:14-0400 Systolic blood pressure 134 mm[Hg] Endy De Anda MD Work Phone: [facility] 02-13-2024 16:44-0400 Diastolic blood pressure 82 mm[Hg] Rob Mendoza [facility] 02-13-2024 16:44-0400 Systolic blood pressure 114 mm[Hg] Rob Mendoza [facility] 02-13-2024 16:43-0400 Body height 165.1 cm Deb Raúl [facility] 02-13-2024 16:43-0400 Body mass index (BMI) [Ratio] 37.14 kg/m2 Deb Olsen [facility] 02-13-2024 16:43-0400 Body temperature 96.6 [degF] Deb Olsen [facility] 02-13-2024 16:43-0400 Body weight 101.24 kg Deb Raúl [facility] 02-13-2024 16:43-0400 Diastolic blood pressure 79 mm[Hg] Deb Raúl [facility] 02-13-2024 16:43-0400 Heart rate 104 /min Deb Raúl [facility] 02-13-2024 16:43-0400 Respiratory rate 20 /min Deb Olsen [facility] 02-13-2024 16:43-0400 SaO2% (BldA) [Mass fraction] 96 % Deb Olsen [facility] 02-13-2024 16:43-0400 Systolic blood pressure 111 mm[Hg] Deb Olsen [facility] 02-13-2024 16:01-0400 Diastolic blood pressure 82 mm[Hg] Deb Olsen [facility] 02-13-2024 16:01-0400 Systolic blood pressure 114 mm[Hg] Deb Olsen [facility] 02-07-2024 14:42-0400 Diastolic blood pressure 70 mm[Hg] Makayla Peyman Work Phone: [facility] 02-07-2024 14:42-0400 Systolic blood pressure 118 mm[Hg] Makayla Peyman Work Phone: [facility] 02-07-2024 14:41-0400 Body height 165.1 cm Makayla Peymna Work Phone: [facility] 02-07-2024 14:41-0400 Body mass index (BMI) [Ratio] 36.61 kg/m2 Makayla Peyman Work Phone: [facility] 02-07-2024 14:41-0400 Body surface area Derived from formula 2.14 m2 Makayla Peyman Work Phone: [facility] 02-07-2024 14:41-0400 Body temperature 97.9 [degF] Makayla Peyman Work Phone: [facility] 02-07-2024 14:41-0400 Body weight 99.79 kg Makayla Peyman Work Phone: [facility] 02-07-2024 14:41-0400 Diastolic blood pressure 65 mm[Hg] Makayla Peyman Work Phone: [facility] 02-07-2024 14:41-0400 Heart rate 72 /min Makayla Peyman Work Phone: [facility] 02-07-2024 14:41-0400 Systolic blood pressure 114 mm[Hg] Makayla Peyman Work Phone: [facility] 02-04-2024 09:37-0400 Body temperature 97.9 [degF] Jose G Ward MD Other Phone: [facility] 02-04-2024 09:37-0400 Diastolic blood pressure 81 mm[Hg] Jose G Ward MD Other Phone: [facility] 02-04-2024 09:37-0400 Heart rate 101 /min Jose G Ward MD Other Phone: [facility] 02-04-2024 09:37-0400 Respiratory rate 18 /min Jose G Ward MD Other Phone: [facility] 02-04-2024 09:37-0400 SaO2% (BldA) [Mass fraction] 96 % Jose G Ward MD Other Phone: [facility] 02-04-2024 09:37-0400 Systolic blood pressure 128 mm[Hg] Jose G Ward MD Other Phone: [facility] [email or web address] [facility] 12-19-2023 08:41-0500 Body temperature 97.3 [degF] Maria Elena Dwyer MD Work Phone: [facility] [employer] 12-19-2023 08:41-0500 Diastolic blood pressure 89 mm[Hg] Maria Elena Dwyer MD Work Phone: [facility] 12-19-2023 08:41-0500 Heart rate 99 /min Maria Elena Dwyer MD Work Phone: [facility] 12-19-2023 08:41-0500 Respiratory rate 18 /min Maria Elena Dwyer MD Work Phone: [facility] 12-19-2023 08:41-0500 SaO2% (BldA) [Mass fraction] 98 % Maria Elena Dwyer MD Work Phone: [facility] 12-19-2023 08:41-0500 Systolic blood pressure 131 mm[Hg] Maria Elena Dwyer MD Work Phone: [facility] 12-19-2023 02:06-0500 Body mass index (BMI) [Ratio] 34.38 kg/m2 Maria Elena Dwyer MD Work Phone: [facility] 12-19-2023 02:06-0500 Body weight 96.62 kg Maria Elena Dwyer MD Work Phone: [facility] 12-14-2023 02:30-0500 Body height 167.6 cm Maria Elena Dwyer MD Work Phone: [facility] 11-28-2023 12:05-0500 Body mass index (BMI) [Ratio] 34.7 kg/m2 Teresa Clay PA-C [facility] 11-28-2023 12:05-0500 Body weight 97.52 kg Teresa Clay PA-C [facility] 11-28-2023 12:05-0500 Diastolic blood pressure 83 mm[Hg] Teresa HAMPTON-C [facility] 11-28-2023 12:05-0500 Heart rate 98 /min Teresa HAMTPON-C [facility] [employer] 11-28-2023 12:05-0500 Respiratory rate 18 /min Teresa Clay PA-C [facility] 11-28-2023 12:05-0500 SaO2% (BldA) [Mass fraction] 97 % Teresa Clay PA-C [facility] 11-28-2023 12:05-0500 Systolic blood pressure 137 mm[Hg] Teresa HAMPTON-C [facility] [employer] 11-28-2023 11:26-0500 Body temperature 97.5 [degF] Teresa HAMPTON-C [facility] 10-26-2023 17:03-0500 Body temperature 98.2 [degF] Rama Nieves MD Work Phone: [facility] 10-26-2023 17:03-0500 Diastolic blood pressure 79 mm[Hg] Rama Nieves MD Work Phone: [facility] 10-26-2023 17:03-0500 Heart rate 77 /min Rama Nieves MD Work Phone: [facility] 10-26-2023 17:03-0500 Respiratory rate 16 /min Rama Nieves MD Work Phone: [facility] 10-26-2023 17:03-0500 SaO2% (BldA) [Mass fraction] 97 % Rama Nieves MD Work Phone: [facility] 10-26-2023 17:03-0500 Systolic blood pressure 145 mm[Hg] Rama Nieves MD Work Phone: [facility] 08-17-2023 08:14-0400 Diastolic blood pressure 92 mm[Hg] Milly Feliciano APRN.CNP Work Phone: [place] [address]-13-2023 08:14-0400 Systolic blood pressure 138 mm[Hg] Milly Older GENERATOR SWITCHBOARD OPERATOR.HAND SCRAPER Work Phone: [facility] 08-17-2023 08:12-0400 Body weight 88.72 kg Milly Older GENERATOR SWITCHBOARD OPERATOR.HAND SCRAPER Work Phone: [facility] 08-17-2023 08:12-0400 Heart rate 90 /min Milly Older GENERATOR SWITCHBOARD OPERATOR.HAND SCRAPER Work Phone: [facility] 08-17-2023 08:12-0400 Respiratory rate 20 /min Milly Older GENERATOR SWITCHBOARD OPERATOR.HAND SCRAPER Work Phone: [facility] 08-17-2023 08:12-0400 SaO2% (BldA) [Mass fraction] 97 % Milly Older GENERATOR SWITCHBOARD OPERATOR.HAND SCRAPER Work Phone: [facility] 08-16-2023 12:10-0400 Body height 167.6 cm Franco Roblero MD Work Phone: [facility] 08-16-2023 12:10-0400 Body temperature 97.7 [degF] Franco Roblero MD Work Phone: [facility] 08-16-2023 12:10-0400 Body weight 88.91 kg Franco Roblero MD Work Phone: [facility] 08-16-2023 12:10-0400 Diastolic blood pressure 78 mm[Hg] Franco Roblero MD Work Phone: [facility] 08-16-2023 12:10-0400 Heart rate 101 /min Franco Roblero MD Work Phone: [facility] 08-16-2023 12:10-0400 SaO2% (BldA) [Mass fraction] 97 % Franco Roblero MD Work Phone: [facility] 08-16-2023 12:10-0400 Systolic blood pressure 142 mm[Hg] Franco Roblero MD Work Phone: [facility] 04-03-2023 16:16-0400 Body height 165.1 cm Isatu Nieto MD Work Phone: [facility] 04-03-2023 16:16-0400 Body temperature 98.2 [degF] Isatu Nieto MD Work Phone: [facility] 04-03-2023 16:16-0400 Body weight 90.27 kg Isatu Nieto MD Work Phone: [facility] 04-03-2023 16:16-0400 Diastolic blood pressure 60 mm[Hg] Isatu Nieto MD Work Phone: [facility] 04-03-2023 16:16-0400 Heart rate 114 /min Isatu Nieto MD Work Phone: [facility] 04-03-2023 16:16-0400 Respiratory rate 12 /min Isatu Nieto MD Work Phone: [facility] 04-03-2023 16:16-0400 SaO2% (BldA) [Mass fraction] 98 % Isatu Nieto MD Work Phone: [facility] 04-03-2023 16:16-0400 Systolic blood pressure 150 mm[Hg] Isatu Nieto MD Work Phone: [facility] 02-14-2023 08:57-0400 Body height 167.6 cm Isatu Nieto MD Work Phone: [facility] 02-14-2023 08:57-0400 Body temperature 97.3 [degF] Isatu Nieto MD Work Phone: [facility] 02-14-2023 08:57-0400 Body weight 96.62 kg Isatu Nieto MD Work Phone: [facility] 02-14-2023 08:57-0400 Diastolic blood pressure 70 mm[Hg] Isatu Nieto MD Work Phone: [facility] 02-14-2023 08:57-0400 Heart rate 103 /min Isatu Nieto MD Work Phone: [facility] 02-14-2023 08:57-0400 Respiratory rate 12 /min Isatu Nieto MD Work Phone: [facility] 02-14-2023 08:57-0400 SaO2% (BldA) [Mass fraction] 98 % Isatu Nieto MD Work Phone: [facility] 02-14-2023 08:57-0400 Systolic blood pressure 126 mm[Hg] Isatu Nieto MD Work Phone: [facility] 12-27-2022 10:50-0500 Body weight 91.26 kg Brando Plotts GENERATOR SWITCHBOARD OPERATOR.CNM Work Phone: [facility] 12-27-2022 10:50-0500 Diastolic blood pressure 76 mm[Hg] Brando Plotts GENERATOR SWITCHBOARD OPERATOR.CNM Work Phone: [facility] 12-27-2022 10:50-0500 Systolic blood pressure 104 mm[Hg] Brando Plotts GENERATOR SWITCHBOARD OPERATOR.CNM Work Phone: [facility] 10-18-2022 16:44-0500 Diastolic blood pressure 82 mm[Hg] Milly Older GENERATOR SWITCHBOARD OPERATOR.HAND SCRAPER Work Phone: [facility] 10-18-2022 16:44-0500 Systolic blood pressure 130 mm[Hg] Milly Older GENERATOR SWITCHBOARD OPERATOR.HAND SCRAPER Work Phone: [facility] 10-18-2022 16:21-0500 Body weight 88.91 kg Milly Older GENERATOR SWITCHBOARD OPERATOR.HAND SCRAPER Work Phone: [facility] 10-18-2022 16:21-0500 Heart rate 84 /min Milly Older GENERATOR SWITCHBOARD OPERATOR.HAND SCRAPER Work Phone: [facility] 10-18-2022 16:21-0500 Respiratory rate 16 /min Milly Older GENERATOR SWITCHBOARD OPERATOR.HAND SCRAPER Work Phone: [facility] 09-25-2022 15:59-0500 Body temperature 98.01 [degF] Jackie Gotti-Wood GENERATOR SWITCHBOARD OPERATOR.HAND SCRAPER Work Phone: [facility] 09-25-2022 15:59-0500 Body weight 90.36 kg Jackie Praisler-Wood GENERATOR SWITCHBOARD OPERATOR.HAND SCRAPER Work Phone: [facility] 09-25-2022 15:59-0500 Diastolic blood pressure 72 mm[Hg] Jackie Praisler-Wood GENERATOR SWITCHBOARD OPERATOR.HAND SCRAPER Work Phone: [facility] 09-25-2022 15:59-0500 Heart rate 95 /min Jackie Praisler-Wood GENERATOR SWITCHBOARD OPERATOR.HAND SCRAPER Work Phone: [facility] 09-25-2022 15:59-0500 Respiratory rate 21 /min Jackie Praisler-Wood GENERATOR SWITCHBOARD OPERATOR.HAND SCRAPER Work Phone: [facility] 09-25-2022 15:59-0500 SaO2% (BldA) [Mass fraction] 96 % Jackie Praisler-Wood GENERATOR SWITCHBOARD OPERATOR.HAND SCRAPER Work Phone: [facility] 09-25-2022 15:59-0500 Systolic blood pressure 124 mm[Hg] Jackie Praisler-Wood GENERATOR SWITCHBOARD OPERATOR.HAND SCRAPER Work Phone: [facility] 09-22-2022 14:30-0500 Diastolic blood pressure 83 mm[Hg] Debra Carrillo MD Work Phone: [facility] 09-22-2022 14:30-0500 Heart rate 93 /min Debra Carrillo MD Work Phone: [facility] 09-22-2022 14:30-0500 Respiratory rate 16 /min Debra Carrillo MD Work Phone: [facility] 09-22-2022 14:30-0500 SaO2% (BldA) [Mass fraction] 95 % Debra Carrillo MD Work Phone: [facility] 09-22-2022 14:30-0500 Systolic blood pressure 132 mm[Hg] Debra Carrillo MD Work Phone: [facility] 09-22-2022 12:44-0500 Body temperature 96.3 [degF] Debra Carrillo MD Work Phone: [facility] 09-22-2022 12:44-0500 Body weight 91.2 kg Debra Carrillo MD Work Phone: [facility] 08-16-2022 15:55-0400 Body height 167.6 cm Jimena Carrerohrie GENERATOR SWITCHBOARD OPERATOR.HAND SCRAPER Work Phone: [facility] 08-16-2022 15:55-0400 Body weight 90.27 kg Jimena Carrerohrie GENERATOR SWITCHBOARD OPERATOR.HAND SCRAPER Work Phone: [facility] 08-16-2022 15:55-0400 Diastolic blood pressure 86 mm[Hg] Jimena Chávez GENERATOR SWITCHBOARD OPERATOR.HAND SCRAPER Work Phone: [facility] 08-16-2022 15:55-0400 Systolic blood pressure 128 mm[Hg] Jimena Carrerohrie GENERATOR SWITCHBOARD OPERATOR.HAND SCRAPER Work Phone: [facility] 07-26-2022 15:42-0400 Body temperature 97.59 [degF] Milly Older GENERATOR SWITCHBOARD OPERATOR.HAND SCRAPER Work Phone: [facility] 07-26-2022 15:42-0400 Body weight 91.17 kg Milly Older GENERATOR SWITCHBOARD OPERATOR.HAND SCRAPER Work Phone: [facility] 07-26-2022 15:42-0400 Diastolic blood pressure 78 mm[Hg] Milly Older GENERATOR SWITCHBOARD OPERATOR.HAND SCRAPER Work Phone: [facility] 07-26-2022 15:42-0400 Heart rate 80 /min Milly Older GENERATOR SWITCHBOARD OPERATOR.HAND SCRAPER Work Phone: [facility] 07-26-2022 15:42-0400 Respiratory rate 16 /min Milly Older GENERATOR SWITCHBOARD OPERATOR.HAND SCRAPER Work Phone: [facility] 07-26-2022 15:42-0400 SaO2% (BldA) [Mass fraction] 98 % Milly Older GENERATOR SWITCHBOARD OPERATOR.HAND SCRAPER Work Phone: [facility] 07-26-2022 15:42-0400 Systolic blood pressure 132 mm[Hg] Milly Older GENERATOR SWITCHBOARD OPERATOR.HAND SCRAPER Work Phone: [facility] 07-20-2022 15:29-0400 Body height 167.6 cm Charlie Watson MD Work Phone: [facility] 07-20-2022 15:29-0400 Body temperature 97.9 [degF] Charlie Watson MD Work Phone: [facility] 07-20-2022 15:29-0400 Body weight 91.17 kg Charlie Watson MD Work Phone: [facility] 07-20-2022 15:29-0400 Diastolic blood pressure 78 mm[Hg] Charlie Watson MD Work Phone: [facility] 07-20-2022 15:29-0400 Heart rate 104 /min Charlie Watson MD Work Phone: [facility] 07-20-2022 15:29-0400 SaO2% (BldA) [Mass fraction] 95 % Charlie Watson MD Work Phone: [facility] 07-20-2022 15:29-0400 Systolic blood pressure 118 mm[Hg] Charlie Watson MD Work Phone: [facility] 06-26-2022 10:48-0400 Body height 167.6 cm Monica Conklin MD Work Phone: [facility] 06-26-2022 10:48-0400 Body temperature 98.1 [degF] Isatu Nieto MD Work Phone: [facility] 06-26-2022 10:48-0400 Body weight 91.63 kg Monica Conklin MD Work Phone: [facility] 06-26-2022 10:48-0400 Diastolic blood pressure 60 mm[Hg] Isatu Nieto MD Work Phone: [facility] 06-26-2022 10:48-0400 Heart rate 94 /min Isatu Nieto MD Work Phone: [facility] 06-26-2022 10:48-0400 Respiratory rate 14 /min Isatu Nieto MD Work Phone: [facility] 06-26-2022 10:48-0400 SaO2% (BldA) [Mass fraction] 97 % Isatu Nieto MD Work Phone: [facility] 06-26-2022 10:48-0400 Systolic blood pressure 124 mm[Hg] Isatu Nieto MD Work Phone: [facility] 04-19-2022 08:17-0400 Body height 167.64 cm [facility] Work Phone: 04-19-2022 08:17-0400 Body mass index (BMI) [Ratio] 31.7 kg/m2 [facility] Work Phone: 04-19-2022 08:17-0400 Body temperature 97.3 [degF] [facility] Work Phone: 04-19-2022 08:170400 Body weight 89.3 kg [facility] Work Phone: 04-19-2022 08:17-0400 Diastolic blood pressure 85 mm[Hg] [facility] Work Phone: 04-19-2022 08:17-0400 Heart rate 90 /min [facility] Work Phone: 04-19-2022 08:17-0400 Respiratory rate 20 /min [facility] Work Phone: 04-19-2022 08:17-0400 Systolic blood pressure 141 mm[Hg] [facility] Work Phone: 03-24-2022 11:01-0400 Body weight 92.53 kg Milly Older GENERATOR SWITCHBOARD OPERATOR.HAND SCRAPER Work Phone: [facility] 03-24-2022 11:01-0400 Diastolic blood pressure 98 mm[Hg] Milly Older GENERATOR SWITCHBOARD OPERATOR.HAND SCRAPER Work Phone: [facility] 03-24-2022 11:01-0400 Heart rate 84 /min Milly Older GENERATOR SWITCHBOARD OPERATOR.HAND SCRAPER Work Phone: [facility] 03-24-2022 11:01-0400 Respiratory rate 16 /min Milly Older GENERATOR SWITCHBOARD OPERATOR.HAND SCRAPER Work Phone: [facility] 03-24-2022 11:01-0400 Systolic blood pressure 138 mm[Hg] Milly Older GENERATOR SWITCHBOARD OPERATOR.HAND SCRAPER Work Phone: [facility] 03-22-2022 17:28-0400 Body temperature 99.81 [degF] Ruby Summers APRN.HAND SCRAPER Work Phone: [facility] 03-22-2022 17:28-0400 Body weight 91.35 kg Ruby Summers APRN.HAND SCRAPER Work Phone: [facility] 03-22-2022 17:28-0400 Diastolic blood pressure 98 mm[Hg] Ruby Summers APRN.HAND SCRAPER Work Phone: [facility] 03-22-2022 17:28-0400 Heart rate 108 /min Ruby Summers APRN.HAND SCRAPER Work Phone: [facility] 03-22-2022 17:28-0400 Respiratory rate 24 /min Ruby Summers APRN.HAND SCRAPER Work Phone: [facility] 03-22-2022 17:28-0400 SaO2% (BldA) [Mass fraction] 97 % Ruby Summers APRN.HAND SCRAPER Work Phone: [facility] 03-22-2022 17:28-0400 Systolic blood pressure 138 mm[Hg] Ruby Summers APRN.HAND SCRAPER Work Phone: [facility] 03-21-2022 11:20-0400 Diastolic blood pressure 95 mm[Hg] [facility] Work Phone: 03-21-2022 11:20-0400 Heart rate 80 /min [facility] Work Phone: 03-21-2022 11:20-0400 Respiratory rate 16 /min [facility] Work Phone: 03-21-2022 11:20-0400 SaO2% (BldA) [Mass fraction] 98 % [facility] Work Phone: 03-21-2022 11:20-0400 Systolic blood pressure 140 mm[Hg] [facility] Work Phone: 03-21-2022 09:28-0400 Body height 165.1 cm [facility] Work Phone: 03-21-2022 09:28-0400 Body mass index (BMI) [Ratio] 33.7 kg/m2 [facility] Work Phone: 03-21-2022 09:28-0400 Body temperature 98 [degF] [facility] Work Phone: 03-21-2022 09:28-0400 Body weight 92.07 kg [facility] Work Phone: 12-26-2021 18:44-0500 Respiratory rate 16 /min [facility] Work Phone: 12-26-2021 17:44-0500 Respiratory rate 16 /min [facility] Work Phone: 12-26-2021 16:47-0500 Body mass index (BMI) [Ratio] 32.3 kg/m2 [facility] Work Phone: 12-26-2021 16:47-0500 Body temperature 97.4 [degF] [facility] Work Phone: 12-26-2021 16:47-0500 Body weight 90.71 kg [facility] Work Phone: 12-26-2021 16:47-0500 Diastolic blood pressure 102 mm[Hg] [facility] Work Phone: 12-26-2021 16:47-0500 Heart rate 104 /min [facility] Work Phone: 12-26-2021 16:47-0500 SaO2% (BldA) [Mass fraction] 100 % [facility] Work Phone: 12-26-2021 16:47-0500 Systolic blood pressure 127 mm[Hg] [facility] Work Phone: 12-26-2021 15:47-0500 Body mass index (BMI) [Ratio] 32.3 kg/m2 [facility] Work Phone: 12-26-2021 15:47-0500 Body temperature 97.4 [degF] [facility] Work Phone: 12-26-2021 15:47-0500 Body weight 90.71 kg [facility] Work Phone: 12-26-2021 15:47-0500 Diastolic blood pressure 102 mm[Hg] [facility] Work Phone: 12-26-2021 15:47-0500 Heart rate 104 /min [facility] Work Phone: 12-26-2021 15:47-0500 SaO2% (BldA) [Mass fraction] 100 % [facility] Work Phone: 12-26-2021 15:47-0500 Systolic blood pressure 127 mm[Hg] [facility] Work Phone: Encounters Encounter Date Encounter Type Care Provider Facility Start: 04-15-2025 End: 04-15-2025 Telephone encounter Debra Carrillo MD Work Phone: General Surgery Start: 03-31-2025 End: 04-01-2025 Telephone encounter Isatu Nieto MD Work Phone: [facility] [place] Comment on above: Medication Question Start: 03-09-2025 [facility] Facility:[facility] Start: 03-09-2025 End: 03-09-2025 Subsequent hospital visit by physician Fercho Counts Include [facility] Magan Davis Work Phone: Radiology Comment on above: Lumbar pain [M54.50] Start: 03-09-2025 End: 03-11-2025 Follow-up encounter Tatiana Villalobos APRN.HAND SCRAPER Work Phone: [facility] Comment on above: Results Start: 03-09-2025 End: 03-09-2025 Patient encounter procedure Valerie Hernandez APRN.HAND SCRAPER Work Phone: Pulmonary Medicine Comment on above: Encounter for screen ing for lung cancer (Primary Dx); Tobacco abuse Start: 03-09-2025 End: 03-09-2025 ambulatory [facility] Facility:[facility] Start: 03-08-2025 End: 03-08-2025 Patient encounter procedure Liset HAMPTON Work Phone: [facility] Comment on above: Left sided sciatica (Primary Dx); Lumbar pain Start: 03-08-2025 End: 03-08-2025 ambulatory LISET VALDEZ Facility:[facility] Start: 03-03-2025 End: 03-03-2025 Refill Isatu Nieto MD Work Phone: [facility] [place] Comment on above: Refill Request Start: 02-26-2025 End: 02-26-2025 ambulatory [facility] Facility:[facility] Start: 02-25-2025 End: 02-25-2025 [facility] Start: 02-23-2025 End: 02-24-2025 Telephone encounter Isatu Nieto MD Work Phone: [facility] [place] Comment on above: Patient Question Start: 02-17-2025 End: 02-17-2025 Telephone encounter Isatu Nieto MD Work Phone: [facility] [place] Comment on above: Refill Request Start: 02-16-2025 End: 02-16-2025 ambulatory [facility] Facility:[facility] Start: 02-16-2025 End: 02-16-2025 Patient encounter procedure Debra Carrillo MD Work Phone: General Surgery Comment on above: Infected sebaceous c yst; Periductal mastitis of right breast; 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 Facility:[facility] Start: 02-12-2025 End: 02-12-2025 ambulatory [facility] Facility:[facility] Start: 02-10-2025 End: 02-10-2025 ambulatory [facility] Facility:[facility] Start: 02-10-2025 End: 02-10-2025 Patient encounter procedure Kimberly Maradiaga DO Work Phone: Vascular Surgery Comment on above: Peripheral arterial disease (Primary Dx) Start: 01-29-[address] [facility] Start: 01-28-2025 End: 01-28-2025 Refill Isatu Nieto MD Work Phone: Internal Medicine [place] Comment on above: Refill Request Start: 01-26-2025 End: 01-26-2025 [facility] Facility:[facility] Start: 01-20-2025 End: 2025 ambulatory Isatu Nieto MD Work Phone: Internal Medicine [facility] Start: 01-19-2025 End: 01-19-2025 Telephone encounter Iastu Nieto MD Work Phone: Internal [facility] Comment on above: Patient Update; Orde rs Start: 01-14-2025 End: 01-14-2025 Telephone encounter Isatu Nieto MD Work Phone: Internal [facility] Comment on above: Scanned documents fr om previous pcp Start: 01-12-2025 End: 01-12-2025 [facility] Facility:[facility] Start: 01-12-2025 End: 01-12-2025 Patient encounter procedure Blanca Landis APRN.CNP Work Phone: General Surgery Comment on above: Screen for colon can cer (Primary Dx); History of colonic polyps; Gastroesophageal reflux disease, unspecified whether esophagitis present; Nausea; Change in bowel movement Start: 01-08-2025 End: 02-11-2025 Follow-up encounter Torri Patel Work Phone: Podiatry Start: 01-08-2025 End: 01-08-2025 [facility] Facility:[facility] Start: 01-07-2025 End: 01-07-2025 [facility] Facility:[facility] Start: 01-07-2025 End: 01-07-2025 Patient encounter procedure Franco Roblero MD Work Phone: General Surgery Comment on above: Breast abscess (Prim katherine Dx) Start: 01-02-2025 End: 01-06-2025 Refill Matthew Howe MD Work Phone: [facility] [place] Comment on above: Refill Request Start: 01-01-2025 End: 01-01-2025 ambulatory [facility] Facility:[facility] Start: 01-01-2025 End: 01-12-2025 Patient encounter procedure Brando Julianpily GENERATOR SWITCHBOARD OPERATOR.CNM Work Phone: OB/Gynecology Comment on above: Encounter for gyneco logical examination (general) (routine) without abnormal findings (Primary Dx); Encounter for screening mammogram for breast cancer; Mixed stress and urge urinary incontinence; Urinary incontinence, nocturnal enuresis; Sebaceous cyst Refill Request Start: 01-01-2025 End: 01-01-2025 Patient encounter status Brando Julianpily ALMODOVAR.CNM Work Phone: [facility] Start: 12-31-2024 End: 12-31-2024 [facility] Facility:[facility] Start: 12-31-2024 End: 12-31-2024 Patient encounter procedure Blanca Landis APRN.HAND SCRAPER Work Phone: General Surgery Comment on above: Breast abscess (Prim katherine Dx) Start: 12-30-2024 End: 12-31-2024 Refill Isatu Nieto MD Work Phone: [facility] Comment on above: Refill Request Start: 12-25-2024 End: 12-25-2024 [facility] Facility:[facility] Start: 12-25-2024 End: 12-25-2024 Patient encounter procedure Blanca Landis APRN.HAND SCRAPER Work Phone: General Surgery Comment on above: History of breast ab scess (Primary Dx) Start: 12-22-2024 End: 12-25-2024 ambulatory Elias Dupont APRN.HAND SCRAPER Work Phone: Pulmonary Medicine Start: 12-18-2024 End: 12-18-2024 Patient encounter procedure Torri Patel Work Phone: Podiatry Comment on above: Tailor's bunion of b oth feet (Primary Dx); Diminished pulses in lower extremity; Onychodystrophy Start: 12-18-2024 End: 12-18-2024 [facility] Facility:[facility] Start: 12-18-2024 End: 12-18-2024 Subsequent hospital visit by physician Fercho Counts Include 234 Beds At [facility] Magan Davis Work Phone: Radiology Comment on above: Pain [R52] Start: 12-17-2024 End: 12-17-2024 Follow-up encounter Isatu Nieto MD Work Phone: Internal Medicine [place] Start: 12-17-2024 End: 12-17-2024 [facility] Facility:[facility] Start: 12-17-2024 End: 12-17-2024 Patient encounter procedure Franoc Roblero MD Work Phone: General Surgery Comment on above: History of breast ab scess (Primary Dx) Start: 12-16-2024 End: 12-16-2024 [facility] Start: 12-16-2024 End: 12-16-2024 Office outpatient visit 25 minutes Isatu Nieto MD Work Phone: Internal Medicine [place] Comment on above: Drug abuse in remiss ion (HCC) (Primary Dx); PAD (peripheral artery disease) (HCC); Vitamin B12 deficiency; Vitamin D deficiency; Weight gain; Fatigue, unspecified type; Iron deficiency; Prediabetes; Essential hypertension; Hyperlipidemia, unspecified hyperlipidemia type Start: 12-10-2024 End: 12-10-2024 [facility] Facility:[facility] Start: 12-10-2024 End: 12-10-2024 Patient encounter procedure Franco Roblero MD Work Phone: General Surgery Comment on above: Breast abscess (Prim katherine Dx); History of breast abscess Start: 12-03-2024 End: 12-03-2024 [facility] Start: 12-03-2024 End: 12-03-2024 Patient encounter procedure Blanca Landis APRN.CNP Work Phone: General Surgery Comment on above: Breast abscess (Prim katherine Dx) Start: 12-01-2024 End: 12-21-2024 Refill Brando Cid HAND SCRAPER Work Phone: [facility] Comment on above: Anxiety Start: 11-30-2024 End: 12-21-2024 Refill Brando Cid HAND SCRAPER Work Phone: [facility] Comment on above: Bipolar affective di sorder, remission status unspecified (HCC) Start: 11-27-2024 End: 11-27-2024 Telephone encounter Franco Roblero MD Work Phone: General Surgery Comment on above: Received Outside Med ical Records Start: 11-27-2024 End: 11-27-2024 ambulatory [facility] Start: 11-27-2024 End: 11-27-2024 Office outpatient visit 25 minutes Brando Cid HAND SCRAPER Work Phone: [facility] Comment on above: Bipolar affective di sorder, remission status unspecified (HCC); Anxiety Start: 11-26-2024 End: 11-26-2024 ambulatory [facility] Facility:[facility] Start: 11-25-2024 End: 11-26-2024 Orders Only Torri Patel Work Phone: [facility] [place] Comment on above: Pain (Primary Dx) Refill Request Patient Question Start: 11-21-2024 End: 11-21-2024 Telephone encounter Matthew Howe MD Work Phone: Otolaryngology Comment on above: Other Cancellation Start: 11-19-2024 End: 11-19-2024 Telephone encounter [facility] Comment on above: Advice Only Start: 11-18-2024 End: 11-18-2024 Telephone encounter [facility] Comment on above: Advice Only Start: 11-17-2024 End: 11-17-2024 Telephone encounter [facility] Comment on above: Advice Only Start: 11-11-2024 End: 11-11-2024 Postop follow up visit related to original px S Raymundo Pisano MD Work Phone: [facility] Comment on above: Breast abscess (Prim katherine Dx) Start: 11-11-2024 ambulatory [facility] Start: 11-10-2024 End: 11-10-2024 Emergency department patient visit Ricki Archer MD Work Phone: [facility] Start: 11-10-2024 End: 11-11-2024 Refill Daniela Escobar MD Work Phone: Otolaryngology Comment on above: Refill Request Start: 11-09-2024 End: 11-09-2024 Emergency department patient visit [facility] Start: 11-07-2024 End: 11-07-2024 Office outpatient visit 25 minutes Ant Hodge GENERATOR SWITCHBOARD OPERATOR-HAND SCRAPER Work Phone: [facility] Comment on above: Essential hypertensi on (Primary Dx); Gastroesophageal reflux disease, unspecified whether esophagitis present; Methamphetamine abuse in remission; Bipolar 1 disorder; Medically noncompliant; Left breast abscess Start: 11-07-2024 ambulatory [facility] Start: 11-04-2024 End: 11-04-2024 Postop follow up visit related to original px S Raymundo Pisano MD Work Phone: [facility] Comment on above: Breast abscess (Prim katherine Dx) Start: 11-04-2024 ambulatory SELF SELF [facility] Start: 11-03-2024 End: 11-03-2024 [facility] Follow-up Start: 11-01-2024 End: 11-01-2024 Emergency department patient visit ANT NAVEEN [facility] Emergency Department Start: 10-30-2024 End: 10-30-2024 Telephone encounter Brynn Macias [facility] Comment on above: Advice Only (Wound V ac Power Cord ) Start: 10-30-2024 End: 10-30-2024 ambulatory [facility] Start: 10-30-2024 End: 10-30-2024 Encounter for other preprocedural examination Colby PISANO [facility] Start: 10-30-2024 End: 10-30-2024 Patient encounter status Colby Pisano MD Work Phone: [facility] Start: 10-30-2024 End: 10-30-2024 Subsequent hospital visit by physician Colby Pisano MD Work Phone: [facility] Per[facility] Comment on above: Breast abscess Start: 10-27-2024 End: 10-27-2024 Telephone encounter Colby Pisano MD Work Phone: [facility] Comment on above: Advice Only Start: 10-24-2024 ambulatory [facility] Start: 10-22-2024 End: 10-22-2024 Postop follow up visit related to original px Colby Pisano MD Work Phone: [facility] Comment on above: Breast abscess (Prim katherine Dx) Start: 10-22-2024 ambulatory SELF SELF [facility] Start: 10-16-2024 End: 10-16-2024 Refill Daniela Escobar MD Work Phone: Otolaryngology Comment on above: Refill Request Start: 10-14-2024 End: 10-14-2024 Telephone encounter Ford Reyna [facility] Comment on above: Other Start: 10-09-2024 End: 10-09-2024 ambulatory [facility] Start: 10-09-2024 End: 10-09-2024 Office outpatient visit 25 minutes [facility] Work Phone: [facility] Comment on above: Bipolar affective di sorder, remission status unspecified (HCC) (Primary Dx); Anxiety Start: 10-08-2024 End: 10-08-2024 Postop follow up visit related to original px Colby Pisano MD Work Phone: [facility] Comment on above: Breast abscess (Prim katherine Dx) Start: 10-08-2024 ambulatory ANT NAVEEN [facility] Start: 10-03-2024 End: 10-03-2024 Emergency department patient visit [facility] Start: 09-30-2024 End: 09-30-2024 Orders Only Brando Mara Cid HAND SCRAPER Work Phone: [facility] Comment on above: Anxiety (Primary Dx) Start: 09-29-2024 End: 09-29-2024 Office outpatient new 45 minutes Leeann Fall Donna GENERATOR SWITCHBOARD OPERATOR-HAND SCRAPER Work Phone: [facility] Comment on above: Abscess of left danni st (Primary Dx); Nonhealing surgical wound, sequela Start: 09-29-2024 End: 09-29-2024 Refill Brandoishan Cid HAND SCRAPER Work Phone: [facility] Comment on above: Bipolar affective di sorder, remission status unspecified ([facility]) Start: 09-26-2024 End: 09-26-2024 ambulatory Colby Patel [facility] Start: 09-26-2024 End: 09-26-2024 Encounter for other preprocedural examination RAYMUNDO Amanda [facility] Start: 09-26-2024 End: 09-26-2024 Patient encounter status Colby Pisano MD Work Phone: [facility] Start: 09-26-2024 End: 09-26-2024 Subsequent hospital visit by physician Colby Pisano MD Work Phone: [facility] Comment on above: Breast abscess Start: 09-25-2024 End: 09-25-2024 Office outpatient new 30 minutes Rachael Contreras MD Work Phone: [facility] Obstetrics and Gynecology Comment on above: Labial abscess (Prim katherine Dx); Sally rash of groin Start: 09-25-2024 End: 09-25-2024 ambulatory RACHAEL CONTRERAS [facility] Start: 09-23-2024 End: 09-23-2024 Office outpatient visit 15 minutes Tina Andrews GENERATOR SWITCHBOARD OPERATOR-HAND SCRAPER Work Phone: [facility] Comment on above: Bursitis of left elb ow, unspecified bursa (Primary Dx) Start: 09-23-2024 ambulatory [facility] Start: 09-22-2024 End: 09-22-2024 [facility] Start: 09-18-2024 End: 09-18-2024 Office outpatient visit 15 minutes Tiff Wilson HAND SCRAPER Work Phone: [facility] Comment on above: Abscess of right gen ital labia (Primary Dx) Start: 09-18-2024 ambulatory [facility] Start: 09-11-2024 ambulatory Colby PISANO [facility] Start: 09-08-2024 End: 09-08-2024 Office outpatient visit 15 minutes Tina Andrews GENERATOR SWITCHBOARD OPERATOR-HAND SCRAPER Work Phone: [facility] Comment on above: Abscess of female br east (Primary Dx) Start: 09-08-2024 ambulatory [facility] Start: 09-03-2024 End: 09-03-2024 ambulatory [facility] Facility:[facility] Start: 09-03-2024 End: 09-03-2024 Patient encounter procedure Matthew Howe MD Work Phone: Otolaryngology Comment on above: Vocal fold leukoplak ia (Primary Dx); LPRD (laryngopharyngeal reflux disease); Smoking; Dysphonia; Nasopharyngeal mass; Disorder of left eustachian tube; TMJ disorder; Tongue pain Start: 08-25-2024 End: 08-25-2024 ambulatory [facility] Start: 08-21-2024 End: 08-21-2024 Office outpatient new 45 minutes Colby Pisano MD Work Phone: [facility] Comment on above: Breast abscess (Prim katherine Dx) Start: 08-21-2024 ambulatory [facility] Start: 08-13-2024 End: 08-13-2024 Telephone encounter Matthew Howe MD Work Phone: [facility] [place] Start: 08-13-2024 End: 08-13-2024 ambulatory LASHAE RODRIGUES Facility:[facility] Start: 08-13-2024 End: 08-13-2024 Patient encounter procedure Matthew Howe MD Work Phone: Otolaryngology Comment on above: Vocal fold leukoplak ia (Primary Dx); LPRD (laryngopharyngeal reflux disease); Candidal stomatitis; Smoking; Dysphonia; Nasopharyngeal mass Start: 08-07-2024 End: 08-07-2024 Transcribe Orders Ant Hodge CNP Work Phone: [facility] Comment on above: Bipolar affective di sorder, remission status unspecified (HCC) (Primary Dx) Start: 08-06-2024 End: 08-29-2024 Telephone encounter Debra Florez [facility] Vascular Surgery Comment on above: Health Information Start: 08-06-2024 End: 08-06-2024 Office outpatient visit 25 minutes Ant GARCIA Work Phone: [facility] Comment on above: PAD (peripheral adriano ry disease) (Primary Dx); Essential hypertension; Palpitations; Tachycardia; Mixed hyperlipidemia; Medically noncompliant; Gastroesophageal reflux disease, unspecified whether esophagitis present; Vitamin D deficiency; Night terror Start: 08-06-2024 ambulatory ANT HODGE [facility] Start: 08-01-2024 End: 08-01-2024 Office outpatient new 45 minutes She Treadwell MD Work Phone: [facility] Otolaryngology Comment on above: Dysphonia (Primary D x); Vocal cord leukoplakia; Allergic rhinitis due to dust; Deviated nasal septum; Nasal congestion; Nasal turbinate hypertrophy; Dysfunction of left eustachian tube Start: 08-01-2024 ambulatory SHE Bautista [facility] Start: 07-21-2024 ambulatory ANT B[facility] Start: 07-21-2024 End: 07-21-2024 Office consultation new/estab patient 80 min Ant Hodge GENERATOR SWITCHBOARD OPERATOR-HAND SCRAPER Work Phone: [facility] Comment on above: Essential hypertensi on (Primary Dx); Thrush; Cellulitis of other specified site; RERE (obstructive sleep apnea); Methamphetamine abuse in remission; Insomnia due to other mental disorder; Current every day smoker; Alcohol abuse, in remission; Night terror; Vitamin D deficiency; Incontinence in female; Lesion of true vocal cord; 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; PAD (peripheral artery disease) Start: 07-21-2024 ambulatory ANT HODGE [facility] Start: 07-17-2024 End: 07-17-2024 Telephone encounter Nancy Del Cid APRN.HAND SCRAPER Work Phone: Pre Anesthesia Comment on above: Missed Appointment Start: 06-16-2024 End: 06-16-2024 ambulatory LASHAE RODRIGUES Facility:[facility] Start: 06-16-2024 End: 06-16-2024 Patient encounter procedure Daniela Escobar MD Work Phone: Otolaryngology Comment on above: Vocal fold leukoplak ia (Primary Dx) Start: 06-02-2024 Telephone encounter Kimmy Mayorga RN Work Phone: Mammography Comment on above: Results Start: 05-24-2024 End: 05-24-2024 ambulatory Jennifer Moran RN NURSE IMAGING ADMINISTRATOR Comment on above: Medication Question Start: 05-24-2024 End: 05-24-2024 Subsequent hospital visit by physician Procedure Mammo Counts Include 234 Beds At [facility] Mammography Comment on above: Breast disorder [N64 .9] Start: 05-14-2024 Telephone encounter Franco Roblero MD Work Phone: General Surgery Comment on above: Appointment Start: 05-03-2024 [facility]ing [facility] Work Phone: Neurology Comment on above: Psg Check In (Adult) Start: 04-23-2024 End: 04-23-2024 Emergency department patient visit MORENO BRADLEY Facility:[id number] Start: 04-17-2024 ambulatory Minerva Hernadez MD Work Phone: Mammography Comment on above: Breast Problem Start: 04-17-2024 Patient encounter procedure Minerva Hernadez MD Work Phone: Mammography Start: 04-16-2024 Telephone encounter Franco Roblero MD Work Phone: General Surgery Comment on above: Appointment Patient Update Start: 04-10-2024 Telephone encounter Franco Roblero MD Work Phone: General Surgery Comment on above: Request Outside Medi cristhian Records Start: 04-09-[address] [facility] Start: 04-08-2024 Telephone encounter Franco Roblero MD Work Phone: General Surgery Comment on above: Patient Question (Re questing antibiotic ) Start: 04-04-2024 ambulatory [facility] Start: 04-04-2024 End: 04-04-2024 ambulatory [facility] Facility:[facility] Start: 04-04-2024 End: 04-04-2024 Patient encounter procedure Franco Roblero MD Work Phone: General Surgery Comment on above: Breast abscess (Prim katherine Dx); Subareolar mass of left breast Start: 04-04-2024 End: 04-04-[address] [facility] Facility:[facility] Start: 04-01-2024 End: 04-01-2024 Patient encounter procedure Franco Roblero MD Work Phone: General Surgery Comment on above: Abnormal finding on breast imaging (Primary Dx) Start: 04-01-2024 Telephone encounter Franco Roblero MD Work Phone: General Surgery Start: 03-25-2024 End: 03-25-[address] [facility] Start: 03-04-2024 Telephone encounter Isatu pete MD Work Phone: Internal Medicine [place] Comment on above: Jury Duty Excuse Refill Request (Not on her list) Start: 03-03-2024 ambulatory Belinda hardin RN Work Phone: [facility] Mammography Start: 03-03-2024 Patient encounter procedure Belinda Florez RN Work Phone: [facility] Mammography Comment on above: Care Coordination; C jovannyel Appointment Start: 02-28-2024 Telephone encounter Milly Feliciano APRNHavenHAND SCRAPER Work Phone: Internal Medicine [place] Comment on above: Appointment Start: 02-26-2024 End: 02-26-2024 Patient encounter procedure Aimee Kern MD Work Phone: Neurology Comment on above: RERE (obstructive sle ep apnea) (Primary Dx) Start: 02-25-2024 ambulatory Facility:[facility] Start: 02-22-2024 ambulatory Belinda hardin RN Work Phone: [facility] Mammography Start: 02-22-2024 Coordination of care plan Belinda Florez RN Work Phone: [facility] Mammography Comment on above: Care Coordination; L eft Message To Call Back Start: 02-21-2024 End: 02-21-2024 ambulatory Belinda Florez RN Work Phone: [facility] Mammography Comment on above: [id number] Navigati on (Research); Tobacco use; Tobacco use; Tobacco use Start: 02-21-2024 Patient encounter procedure Belinda Florze RN Work Phone: [facility] Mammography Comment on above: Care Coordination; A PPOINTMENT SCHEDULING Start: 02-21-2024 Telephone encounter Leigha Granda MD Work Phone: [facility] Obstetrics/Gynecology Comment on above: Referral to Speciali st Start: 02-21-2024 End: 02-21-2024 Subsequent hospital visit by physician [facility] Op Mammo Us 4 [facility] Ultrasound Comment on above: Unspecified superfic ial injuries of breast, unspecified breast, initial encounter Start: 02-20-2024 Telephone encounter Lida Ziegler ch, DO Work Phone: [facility] Comment on above: Refill Start: 02-20-2024 End: 02-20-2024 ambulatory UNKNOWN PROVIDER Facility:[facility] Start: 02-20-2024 End: 02-20-2024 Subsequent hospital visit by physician Julio [facility] Radiology Comment on above: OUTSIDE CORRESPONDEN CE Start: 02-19-2024 End: 02-20-2024 ambulatory ENDY DE ANDA Facility:[facility] Start: 02-19-2024 End: 02-20-2024 Office outpatient new 45 minutes Endy De Anda MD Work Phone: [facility] Vascular Surgery Comment on above: PAD (peripheral adriano ry disease) (HCC) (Primary Dx) Start: 02-14-2024 End: 02-14-2024 Emergency department patient visit UNKNOWN PROVIDER Facility:[facility] Start: 02-13-2024 End: 02-13-2024 Rob Mendoza Work Phone: [facility] Start: 02-13-2024 End: 02-13-2024 Emergency department patient visit UNKNOWN PROVIDER Facility:[facility] Start: 02-13-2024 End: 02-13-2024 Office outpatient visit 15 minutes Deb Olsen Work Phone: [facility] Start: 02-07-2024 End: 02-07-2024 Encounter for gynecological examination (general) (routine) with abnormal findings Makayla Arboleda Peyman Work Phone: [facility] Start: 02-07-2024 End: 02-07-2024 Initial preventive medicine new patient 40-64yrs Makayla A Peyman Work Phone: [facility] Start: 02-07-2024 End: 02-07-2024 Office outpatient new 30 minutes Makayla Peyman Work Phone: [facility] Start: 02-04-2024 End: 02-04-2024 Emergency department patient visit UNKNOWN PROVIDER Facility:[facility] Comment on above: Abdominal pain (Acid reflex las night, leg pain) Start: 01-24-2024 Telephone encounter Isatu pete MD Work Phone: [address] [place] [address] Comment on above: Orders Start: 01-03-2024 End: 01-03-2024 ambulatory ONEL FAHIM Not Available Start: 12-27-2023 End: 12-27-2023 ambulatory ONEL FAHIM Not Available Start: 12-21-2023 ambulatory [facility] Start: 12-21-2023 ambulatory Gustavo Brown Fac ility:[facility] Start: 12-19-2023 End: 12-19-2023 [facility] hospital care/day 25 minutes Onel Fahim DPM Work Phone: [facility] Comment on above: Gangrene of toe of r ight foot (CMS/HCC) (Primary Dx); PAD (peripheral artery disease) (CMS/HCC); Ischemic pain of foot, right Start: 12-18-2023 Evaluation and management of inpatient [facility] Start: 12-18-2023 Evaluation and management of inpatient [facility] Start: 12-18-2023 End: 12-18-2023 [facility] hospital care/day 25 minutes Onel Fahim DPM Work Phone: [facility]P Comment on above: Gangrene of toe of r ight foot (CMS/HCC) (Primary Dx); PAD (peripheral artery disease) (CMS/HCC); Ischemic pain of foot, right Start: 12-17-2023 ambulatory [facility] Start: 12-17-2023 End: 12-17-2023 [facility] hospital care/day 25 minutes Onel Fahim DPM Work Phone: [facility]P Comment on above: Gangrene of toe of r ight foot (CMS/HCC) (Primary Dx); PAD (peripheral artery disease) (CMS/HCC); Ischemic pain of foot, right Start: 12-16-2023 Evaluation and management of inpatient [facility] Start: 12-16-2023 End: 12-16-2023 [facility] hospital care/day 25 minutes Onel Fahim DPM Work Phone: [facility] Comment on above: Gangrene of toe of r ight foot (CMS/HCC) (Primary Dx); PAD (peripheral artery disease) (CMS/HCC); Ischemic pain of foot, right Start: 12-15-2023 Evaluation and management of inpatient [facility] Start: 12-15-2023 End: 12-15-2023 [facility] hospital care/day 25 minutes Onel Joyce DPM Work Phone: [facility] Comment on above: Gangrene of toe of r ight foot (CMS/HCC) (Primary Dx); PAD (peripheral artery disease) (CMS/HCC); Ischemic pain of foot, right Start: 12-14-2023 End: 12-20-2023 Evaluation and management of inpatient [facility] Start: 12-14-2023 Evaluation and management of inpatient [facility] Start: 12-14-2023 End: 12-14-2023 Initial hospital care/day 70 minutes Onel Fanandini DPM Work Phone: [facility] Comment on above: Gangrene of toe of r ight foot (CMS/HCC) (Primary Dx); PAD (peripheral artery disease) ([facility]); Ischemic pain of foot, right Start: 12-13-2023 End: 12-19-2023 Evaluation and management of inpatient [facility] Start: 12-13-2023 End: 12-19-2023 Evaluation and management of inpatient Maria Elena Dwyer MD Work Phone: [facility] MED SURG ONC Comment on above: Cellulitis, unspecif ied cellulitis site (Primary Dx); Mental health problem; History of substance abuse (HCC); 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); Embolism of right iliac artery (HCC); Tibial artery occlusion, left (HCC); Palpitations Start: 12-13-2023 Emergency department patient visit [facility] Start: 12-08-2023 Emergency department patient visit TERESA Arboleda [facility] Start: 12-08-2023 End: 12-09-2023 Emergency department patient visit TERESA Arboleda [facility] Start: 12-07-2023 Telephone encounter Isatu pete MD Work Phone: [facility] [place] Comment on above: Patient Update Start: 12-02-2023 End: 12-02-2023 Emergency department patient visit NICHOLAS LONGORIA [facility] Start: 12-01-2023 Emergency department patient visit PEPE MCLEAN [facility] Start: 11-29-2023 End: 11-29-2023 ambulatory LEIGHA Steven ALFORD Not Available Start: 11-28-2023 End: 11-28-2023 Emergency department patient visit TERESA Arboleda [facility] Start: 11-28-2023 End: 11-28-2023 Emergency department patient visit [facility] JUANITA [facility] Emergency Department Start: 10-25-2023 Emergency department patient visit TERESA A [facility] Start: 10-25-2023 End: 10-26-2023 Emergency department patient visit Rama Nieves MD Work Phone: [facility] Emergency Department Comment on above: Depression, unspecif ied depression type (Primary Dx) Start: 10-10-2023 Telephone encounter Franco Roblero MD Work Phone: General Surgery Comment on above: Secretary [employer] State - [place] (records) Start: 09-17-2023 Refill Isatu Paris Work Phone: [facility] [place] Comment on above: Refill Request Start: 08-25-2023 Telephone encounter Jonathan barreto APRN.CNP Work Phone: [facility] Comment on above: Results Start: 08-17-2023 End: 08-17-2023 Subsequent hospital visit by physician Xr Counts Include [facility] [place] Work Phone: Radiology Comment on above: Wheezing [R06.2] Start: 08-17-2023 End: 08-17-2023 Patient encounter procedure Milly Braden ROBLEDO Work Phone: [facility] [place] Comment on above: Drug abuse in remiss ion (HCC) (Primary Dx); Alcohol abuse, in remission; Hypertension, unspecified type; Wheezing; Thrush; Prediabetes; Breast abscess; Mixed hyperlipidemia Start: 08-16-2023 End: 08-16-2023 Patient encounter procedure Franco Roblero MD Work Phone: General Surgery Comment on above: Breast abscess (Prim katherine Dx); Bloody discharge from left nipple Start: 07-13-2023 Telephone encounter Franco Roblero MD Work Phone: General Surgery Comment on above: Patient Question Start: 06-20-2023 ambulatory Isatu Paris Work Phone: [facility] [place] Comment on above: Bladder Problem Start: 06-20-2023 Telephone encounter Isatu pete MD Work Phone: [facility] [place] Comment on above: Mammogram Order Start: 06-18-2023 Refill Isatu Paris Work Phone: [address] [place] [address] Comment on above: Refill Request Start: 05-29-2023 ambulatory Mitch Owusu Facility:[facility] Start: 04-25-2023 Refill Isatu Paris Work Phone: [facility] [place] Comment on above: Refill Request Start: 04-10-2023 Telephone encounter Isatu pete MD Work Phone: [facility] [place] Comment on above: Orders Start: 04-05-2023 Telephone encounter Isatu pete MD Work Phone: [facility] [place] Comment on above: Patient Question; Or ders Start: 04-04-2023 ambulatory Isatu Paris Work Phone: [facility] [place] Comment on above: Itching Start: 04-03-2023 End: 04-03-2023 Patient encounter procedure Isatu Nieto MD Work Phone: [facility] [place] Comment on above: Bilateral carpal jocelyne emani syndrome (Primary Dx); Swelling of hand, unspecified laterality Start: 04-01-2023 ambulatory April De Leon RN NU RSE IMAGING ADMINISTRATOR Comment on above: Patient Update; Numb ness/Tingling Start: 03-30-2023 Telephone encounter Isatu pete MD Work Phone: [facility] [place] Comment on above: Patient Update Start: 03-29-2023 Telephone encounter Milly Feliciano APRN.HAND SCRAPER Work Phone: [facility] [place] Comment on above: Results Start: 03-27-2023 End: 03-27-2023 Subsequent hospital visit by physician Xr Counts Include [facility] [place] Work Phone: Radiology Comment on above: Numbness and tinglin g in both hands [R20.0, R20.2] Start: 02-27-2023 Telephone encounter Isatu pete MD Work Phone: [facility] [place] Comment on above: Medication Request Start: 02-19-2023 Telephone encounter Isatu pete MD Work Phone: [facility] [place] Comment on above: Missed Appointment Start: 02-14-2023 End: 02-14-2023 Patient encounter procedure Isatu Nieto MD Work Phone: [facility] [place] Comment on above: Moderate episode of recurrent major depressive disorder (HCC) (Primary Dx); Breast discharge; Breast abscess; Substance abuse (HCC); Excessive weight gain Start: 02-06-2023 Telephone encounter Isatu pete MD Work Phone: [facility] [place] Comment on above: Patient Question Start: 02-02-2023 Refill Isatu Paris Work Phone: [facility] [place] Comment on above: Refill Request Start: 12-28-2022 Telephone encounter Brando hernandez APRN.CNM Work Phone: OB/Gynecology Comment on above: Results Start: 12-27-2022 End: 12-27-2022 Patient encounter procedure Brando Lopez GENERATOR SWITCHBOARD OPERATOR.CNM Work Phone: OB/Gynecology Comment on above: Screen for STD (sexu ally transmitted disease) (Primary Dx) Start: 11-01-2022 Telephone encounter Milly Feliciano APRN.CNP Work Phone: [facility] [place] Comment on above: Patient Update Start: 10-31-2022 Refill Isatu Paris Work Phone: [facility] [place] Comment on above: Refill Request Start: 10-18-2022 End: 10-18-2022 Patient encounter procedure Milly Feliciano APRN.HAND SCRAPER Work Phone: [facility] [place] Comment on above: Breast abscess (Prim katherine Dx); 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HCC); Gastroesophageal reflux disease without esophagitis; Mood disorder (HCC); Annual physical exam; Vitamin D deficiency Start: 10-06-2022 Telephone encounter Destiny so PA-C Work Phone: General Surgery Comment on above: Results (colonoscopy ) Start: 09-25-2022 End: 09-25-2022 Patient encounter procedure Jackie Deal APRN.HAND SCRAPER Work Phone: [facility] Comment on above: Breast cyst, left (P rimary Dx); Viral bronchitis Start: 09-22-2022 End: 09-22-2022 Subsequent hospital visit by physician Debra Carrillo MD Work Phone: Ambulatory Surgery Comment on above: Rectal bleeding [K62 .5] Start: 09-19-2022 Telephone encounter Debra Posada MD Work Phone: Ambulatory Surgery Comment on above: Patient Update Start: 08-18-2022 Refill Debra ray MD Work Phone: General Surgery Comment on above: Refill Request Start: 08-17-2022 Telephone encounter Jimena monroe APRN.HAND SCRAPER Work Phone: OB/Gynecology Comment on above: Results; New Medicat ion Refill Request Start: 08-16-2022 End: 08-16-2022 Patient encounter procedure Jimena Chávez APRN.HAND SCRAPER Work Phone: OB/Gynecology Comment on above: Vaginal burning (Meenakshi jensen Dx); Screen for STD (sexually transmitted disease) Start: 08-14-2022 End: 08-14-2022 Subsequent hospital visit by physician Xr Counts Include [facility] [place] Work Phone: Radiology Comment on above: Ankle injuries, righ t, initial encounter [S99.911A] Start: 08-11-2022 Refill Isatu Paris Work Phone: [facility] [place] Comment on above: Refill Request Start: 08-11-2022 Refill Candice Stokes APR N.HAND SCRAPER Work Phone: Gastroenterology Comment on above: Refill Request Start: 07-27-2022 Orders Only Debra ray MD Work Phone: LD PROVIDER ADULT Comment on above: Rectal bleeding Letter Start: 07-26-2022 End: 07-26-2022 Patient encounter procedure Milyl Feliciano APRN.HAND SCRAPER Work Phone: [facility] [place] Comment on above: Acute cough (Primary Dx); Fever, unspecified fever cause; Sore throat; Fatigue, unspecified type; Groin abscess Start: 07-20-2022 End: 07-20-2022 Patient encounter procedure Charlie Watson MD Work Phone: General Surgery Comment on above: Breast abscess (Prim katherine Dx) Start: 06-30-2022 Telephone encounter Debra Posada MD Work Phone: Ambulatory Surgery Comment on above: Orders Start: 06-26-2022 Telephone encounter Monica Conklin MD Work Phone: OB/Gynecology Comment on above: Orders Start: 06-26-2022 End: 06-26-2022 Patient encounter status Monica Conklin MD Work Phone: OB/Gynecology Start: 06-26-2022 End: 06-26-2022 Patient encounter procedure Monica Conklin MD Work Phone: OB/Gynecology Comment on above: Encounter for screen ing for human papillomavirus (HPV) (Primary Dx); Encounter for gynecological examination (general) (routine) without abnormal findings; Screening for cervical cancer; Screen for STD (sexually transmitted disease) Nipple discharge (Pr imary Dx); Mixed hyperlipidemia; Vitamin D deficiency Start: 05-19-2022 Refill Isatu Paris Work Phone: [facility] [place] Comment on above: Refill Request Start: 04-19-2022 End: 04-19-2022 [facility] Start: 03-29-2022 Telephone encounter Isatu pete MD Work Phone: Family [facility] Comment on above: Diarrhea Start: 03-24-2022 Telephone encounter Milly Feliciano APRN.HAND SCRAPER Work Phone: Internal Medicine [place] Comment on above: Fax referral and off ice notes Start: 03-24-2022 End: 03-24-2022 Patient encounter procedure Milly Feliciano APRN.HAND SCRAPER Work Phone: [facility] [place] Comment on above: Groin abscess (Prima ry Dx); 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HCC); Alcohol abuse, in remission Start: 03-22-2022 End: 03-22-2022 Patient encounter procedure Ruby Summers GENERATOR SWITCHBOARD OPERATOR.HAND SCRAPER Work Phone: [facility] Comment on above: Skin infection (Prim katherine Dx) Start: 03-21-2022 End: 03-21-2022 [facility] Start: 03-13-2022 Telephone encounter Debra Posada MD Work Phone: General Surgery Comment on above: 04-05-2022 [facility] Start: 03-07-2022 Refill Isatu Paris Work Phone: [facility] [place] Comment on above: Refill Request Start: 03-02-2022 Telephone encounter Isatu pete MD Work Phone: [facility] [place] Comment on above: Opened In Error Start: 02-24-2022 Refill Milly Feliciano APRN .HAND SCRAPER Work Phone: Internal [facility] [place] Comment on above: Refill Request Start: 02-22-2022 End: 02-22-2022 ambulatory [facility] Start: 02-14-2022 Telephone encounter Tiff Howell RN Gastroenterology Comment on above: Education Of Patient /family Start: 01-27-2022 Telephone encounter Isatu pete MD Work Phone: [facility] [place] Comment on above: Release Of Medical R ecords Start: 01-24-2022 Telephone encounter Isatu pete MD Work Phone: [facility] [place] Comment on above: Referral Request Start: 01-18-2022 End: 01-18-2022 Patient encounter procedure [facility] Start: 12-26-2021 End: 12-26-2021 Emergency department patient visit [facility] Start: 12-21-2021 End: 12-21-2021 Patient encounter procedure [facility], [place] [employer] Start: 09-26-2021 End: 09-26-2021 Subsequent hospital visit by physician [facility] Work Phone: Radiology Comment on above: Chronic midline low back pain with bilateral sciatica [M54.41, M54.42, G89.29] Procedures Date Procedure Procedure Detail Performing Clinician Start: 03-09-2025 Radex spine lumbosac ral 2/3 views Liset HAMPTON Work Phone: Start: 11-01-2024 Complete blood count with white cell differential, automated Luisa Singleton GENERATOR SWITCHBOARD OPERATOR-HAND SCRAPER Work Phone: Start: 11-01-2024 Prothrombin time Luisa Singleton GENERATOR SWITCHBOARD OPERATOR-HAND SCRAPER Work Phone: Start: 10-30-2024 Gluc bld gluc mntr d ev cleared fda spec home use S Raymundo Pisano MD Work Phone: Start: 10-30-2024 Gluc bld gluc mntr d ev cleared fda spec home use S Raymundo Pisano MD Work Phone: Start: 10-30-2024 Urine test visual color cmprsn meths Nilton L Rico DO Work Phone: Start: 10-30-2024 Urine drug screening Ca rlos L Rico DO Work Phone: Start: 09-26-2024 Urine drug screening Ca rlos L Rico DO Work Phone: Start: 09-18-2024 Incision & drainage abscess simple/single Tiff Wilson HAND SCRAPER Work Phone: Start: 08-01-2024 Binocular microscopy separate dx procedure She Treadwell MD Work Phone: Start: 08-01-2024 Laryngoscopy flx/rgd telescopic w/stroboscopy She Treadwell MD Work Phone: Start: 05-24-2024 Diagnostic mammograp hy computer-aided detcj uni Minerva Hernadez MD Work Phone: Start: 05-24-2024 Biopsy muscle percut aneous needle Minerva Hernadez MD Work Phone: Start: 05-24-2024 Bx breast w/device 1 st lesion ultrasound guid Minerva Hernadez MD Work Phone: Start: 02-21-2024 Us breast uni real t bin with image limited Makayla Morley MD Work Phone: Start: 02-21-2024 End: 02-21-2024 Diagnostic mammography computer-aided detcj bi Makayla Morley MD Work Phone: Start: 02-20-2024 End: 02-20-2024 MG IMPORTED IMAGES Kiet Flannery DO Work Phone: Start: 02-13-2024 End: 02-13-2024 Current tobacco smoker Deb Raúl PREPRINT ANALYST Start: 02-13-2024 End: 02-13-2024 DIAST BP < 80 MM HG Deb Raúl PREPRINT ANALYST Start: 02-13-2024 End: 02-13-2024 PT TOBACCO SCREEN RCVD TLK Deb Solo mon PREPRINT ANALYST Start: 02-07-2024 End: 02-07-2024 DIAST BP < 80 MM HG Makayla Morley Work Phone: Start: 02-07-2024 End: 02-07-2024 Pt dx meop or nadine steri Makayla Peyman Work Phone: Start: 02-07-2024 End: 02-07-2024 PT TOBACCO SCREEN RCVD TLK Makayla Peyman Work Phone: Start: 02-07-2024 End: 02-07-2024 SYST BP LT 130 MM HG Makayla Peyman Work Phone: Start: 02-07-2024 End: 02-07-2024 Urine test visual color cmprsn meths Makayla Peyman Work Phone: Start: 12-18-2023 Assay of troponin quantitative Raysa Ashlyn Hawkins GENERATOR SWITCHBOARD OPERATOR - [employer] Work Phone: Start: 12-18-2023 Echo transesophag r- t 2d w/prb img acquisj i&r Angela Diego MD Work Phone: Start: 12-17-2023 Basic metabolic pane l calcium total Terry Medina MD Work Phone: Start: 12-16-2023 Us breast uni real t bin with image limited Louie Santiago MD Work Phone: Start: 12-16-2023 Cul bact xcpt urine blood/stool aerobic isol Louie Santiago MD Work Phone: Start: 12-16-2023 Cul prsmptv pthgnc organism scrn w/colony estimj Louie Santiago MD Work Phone: Start: 12-16-2023 Basic metabolic pane l calcium total Terry Medina MD Work Phone: Start: 12-15-2023 Ct thorax w/contrast material Terry Medina MD Work Phone: Start: 12-15-2023 Basic metabolic pane l calcium total Terry Medina MD Work Phone: Start: 12-14-2023 Urine test visual color cmprsn meths Louie Santiago MD Work Phone: Start: 12-14-2023 Radex foot complete minimum 3 views Melvin Solano DPM Work Phone: Start: 12-14-2023 Antibody hiv-1&hiv-2 single result Louie Santiago MD Work Phone: Start: 12-14-2023 Echo tthrc r-t 2d w/wom-mode compl spec&colr d Terry Medina MD Work Phone: Start: 12-14-2023 Iadna chlamydia trachomatis amplified probe tq Louie Santiago MD Work Phone: Start: 12-14-2023 Blood count complete auto&auto difrntl wbc Terry Medina MD Work Phone: Start: 12-14-2023 Non-invasive physiol ogic study extremity 3 levls Terry Medina MD Work Phone: Start: 12-14-2023 C-reactive protein Ihsan Santiago MD Work Phone: Start: 12-14-2023 Sedimentation rate r bc automated Louie Santiago MD Work Phone: Start: 12-14-2023 Assay of magnesium Sultana Kapadia MD Work Phone: Start: 12-13-2023 Ct abdomen & pelvis w/contrast material Maria Elena Dwyer MD Work Phone: Start: 12-13-2023 Assay of magnesium Sha Dwyer MD Work Phone: Start: 12-13-2023 CULTURE, BLOOD 1 Maria Elena Dwyer MD Work Phone: Start: 12-13-2023 LACTATE, SEPSIS Roshan Kapadia MD Work Phone: Start: 12-13-2023 Urnls dip stick/tabl et reagent auto microscopy Maria Elena Dwyer MD Work Phone: Start: 10-25-2023 Ecg routine ecg w/le ast 12 lds w/i&r Rama Nieves MD Work Phone: Start: 10-25-2023 Assay of magnesium Xochitl Nieves MD Work Phone: Start: 10-25-2023 Drug screen, qualitate/multi Rama Nieves MD Work Phone: Start: 10-25-2023 Drug tst prsmv instr mnt chem analyzers pr date Rama Nieves MD Work Phone: Start: 10-25-2023 Urnls dip stick/tabl et rgnt auto w/o microscopy Rama Nieves MD Work Phone: Start: 08-17-2023 Radiologic exam ches t 2 views Milly Feliciano GENERATOR SWITCHBOARD OPERATOR.HAND SCRAPER Work Phone: Start: 08-17-2023 Hemoglobin A1c/Hemoglobin.total in Blood Milly Feliciano GENERATOR SWITCHBOARD OPERATOR.HAND SCRAPER Work Phone: Start: 03-27-2023 Radex spine cervical 2 or 3 views Milly Feliciano GENERATOR SWITCHBOARD OPERATOR.HAND SCRAPER Work Phone: Start: 02-14-2023 Cul bact xcpt urine blood/stool aerobic isol Isatu Nieto MD Work Phone: Start: 09-22-2022 Level iv surg pathol ogy gross&microscopic exam Debra Carrillo MD Work Phone: Start: 09-22-2022 Colonoscopy flx dx w /collj spec when pfrmd Debra Carrillo MD Work Phone: Start: 09-22-2022 Colonoscopy Jackie Chandler GENERATOR SWITCHBOARD OPERATOR.HAND SCRAPER Work Phone: Start: 08-16-2022 Urnls dip stick/tabl et rgnt auto w/o microscopy Jimena Chávez GENERATOR SWITCHBOARD OPERATOR.HAND SCRAPER Work Phone: Start: 08-14-2022 Radex ankle complete minimum 3 views Jonathan Landeros GENERATOR SWITCHBOARD OPERATOR.HAND SCRAPER Work Phone: Start: 06-26-2022 Microscopic observat ion [Identifier] in Cervix by Cyto stain Rachael Contreras MD Work Phone: Start: 03-21-2022 SARS-CoV-2 & FLU Ant igen (Rapid) Start: 03-21-2022 Plain chest X-ray Start: 01-03-2022 Mammography Isatu pete MD Work Phone: Start: 12-26-2021 Adult depression scr eening assessment Isatu Nieto MD Work Phone: Start: 12-21-2021 Urine culture Start: 09-26-2021 Radex spine lumbosac ral 2/3 views Alverto Khan MD Work Phone: Start: 12-01-2019 Colonoscopy Isatu pete MD Work Phone: Start: 08-24-2014 Lipid 1996 panel - S yobani or Plasma Milly Feliciano APRN.HAND SCRAPER Work Phone: SARS-CoV-2 & FLU Ant igen (Rapid) Urine culture Plan of Treatment Date Care Activity Detail Author Start: 09-22-2032 Screening for malignant neoplasm of colon [facility] Start: 12-01-2029 Screening for malignant neoplasm of colon [facility] Start: 02-19-2029 Cholesterol [Mass/volume] in Serum or Plasma [facility] Start: 02-19-[address] [facility] Start: 01-09-2029 Cholesterol [Mass/volume] in Serum or Plasma Cholesterol [facility] Start: 11-19-2028 DTaP/Tdap/Td vaccine (3 - Td or Tdap) DTaP/Tdap/Td vaccine (3 - Td or Tdap) [facility] Start: 11-19-2028 Tetanus vaccination [facility] Start: 11-19-2028 Urine microalbumin profile [facility] Start: 12-16-2027 Diabetes Screening Diabetes Screening [facility] Start: 10-24-2027 Diabetes Screening Diabetes Screening [facility] Start: 09-22-2027 Colonoscopy COLONOSCOPY [facility] Start: 09-22-2027 COLORECTAL CANCER SCREENING COLORECTAL CANCER SCREENING [facility] Start: 09-22-2027 Screening for malignant neoplasm of colon [facility] Start: 06-26-2027 HPV TESTING HPV TESTING [facility] Start: 06-26-2027 PAP TESTING PAP TESTING [facility] Start: 06-26-2027 Screening for malignant neoplasm of cervix [facility] Start: 04-23-2027 Diabetes Screening Diabetes Screening [facility] Start: 12-17-2026 Diabetes Screening Diabetes Screening [facility] Start: 08-17-2026 Diabetes Screening Diabetes Screening [facility] Start: 03-27-2026 DIABETES SCREEN DIABETES SCREEN [facility] Start: 03-27-2026 Diabetes Screening Diabetes Screening [facility] Start: 02-16-2026 BP Controlled (<130/80) BP Controlled (<130/80) [facility] Start: 02-14-2026 DIABETES SCREEN DIABETES SCREEN [facility] Start: 02-12-2026 Annual PCP Team Chronic Disease Visit Annual PCP Team Chronic Disease Visit [facility] Start: 02-10-2026 BP Controlled (<130/80) BP Controlled (<130/80) [facility] Start: 01-04-2026 End: 01-04-2026 Patient encounter procedure Mammogram Comment on above: Encounter for screening mammogram for br east cancer [Z12.31] Annual Start: 12-25-2025 BP Controlled (<130/80) BP Controlled (<130/80) [facility] Start: 12-17-2025 BP Controlled (<130/80) BP Controlled (<130/80) [facility] Start: 12-16-2025 Annual PCP Team Chronic Disease Visit Annual PCP Team Chronic Disease Visit [facility] Start: 12-16-2025 BP Controlled (<130/80) BP Controlled (<130/80) [facility] Start: 08-25-2025 Depression screening using PHQ-9 (Patient Health Questionnaire 9) score Depression Screening/Follow-Up (PHQ-2/9) [facility] Start: 08-18-2025 End: 08-18-2025 Patient encounter procedure Vasculary Surgery Comment on above: Peripheral arterial disease [I73.9] 6 month follow up Start: 07-06-2025 Influenza vaccination Influenza Vaccine (Season Ended) [facility] Start: 06-26-2025 Screening for malignant neoplasm of cervix Pap Smear [facility] Start: 06-15-2025 Hemoglobin A1c measurement HbA1C [facility] Start: 05-07-2025 End: 05-07-2025 Patient encounter procedure 05/07/2025 8:00 AM EDT Office Visit [facility] Cardiology [address] [facility] [place] [address] Geronimo Simon DO [address] [place] [address] [facility] Start: 04-29-2025 End: 04-29-2025 Patient encounter procedure 04/29/2025 11:45 AM EDT Appointment [facility] Endoscopy [address] [place] [address] Debra Carrillo MD [address] [place] [phone] Colon EGD [facility] Endoscopy Comment on above: Colon EGD Start: 04-22-2025 End: 04-22-2025 Patient encounter procedure [facility] Endoscopy Comment on above: Colon EGD Start: 04-21-2025 End: 04-21-2025 Patient encounter procedure 04/21/2025 11:00 AM EDT Appointment Cat Scan [address] [place], [place] [phone] Encounter for screening for lung cancer [Z12.2] Cat Scan Comment on above: Encounter for screening for lung cancer [Z12.2] Start: 04-20-2025 End: 04-20-2025 Patient encounter procedure 04/20/2025 8:00 AM EDT Office Visit Pulmonary Medicine [address] [place], [place] [phone] Valerie Hernandez APRN.HAND SCRAPER [address] [place] [address] Tobacco abuse [Z72.0] Pulmonary Medicine Comment on above: Tobacco abuse [Z72.0] Start: 04-15-2025 End: 04-15-2025 Patient encounter procedure 04/15/2025 1:15 PM EDT Office Visit General Surgery [address] [place], [place] [phone] Franco Roblero MD [address] [place] [address] PROCEDURE: Excision of back skin. SARITA: 02/16/25. Consent signed. [facility] General Surgery Comment on above: PROCEDURE: Excision of back skin. SARITA: 0 02/16/25. Consent signed. [facility] Start: 04-09-2025 End: 04-09-2025 Patient encounter procedure 04/09/2025 9:15 AM EDT Office Visit General Surgery [address] [place] [address] Franco Roblero MD [address] [place] [address] FU: Right breast periductal mastitis. Previously tx with ATB. [facility] General Surgery Comment on above: FU: Right breast periductal mastitis. Pr eviously tx with ATB. [facility] Start: 04-08-2025 End: 04-08-2025 Patient encounter procedure 04/08/2025 11:20 AM EDT Appointment Cat Scan [address] [place] [address] Encounter for screening for lung cancer [Z12.2] Cat Scan Comment on above: Encounter for screening for lung cancer [Z12.2] Start: 04-06-2025 End: 04-06-2025 Patient encounter procedure 04/06/2025 11:20 AM EDT Office Visit [facility] [place] [address] [place] [address] Milly Feliciano APRN.HAND SCRAPER [address] [place] [address] Pre-op clearance colonoscopy with MAC anesthesia. 04/22/25 at [facility] with Dr. Carrillo. [facility] [place] Comment on above: Pre-op clearance colonoscopy with MAC an esthesia. 04/22/25 at [facility] with Dr. Carrillo. Start: 04-01-2025 End: 04-01-2025 Patient encounter procedure 04/01/2025 10:15 AM EDT Office Visit General Surgery [address] [place] [address] Franco Roblero MD [address] [place] [address] PROCEDURE: Excision of back skin. SARITA: 02/16/25. Consent signed. [facility] General Surgery Comment on above: PROCEDURE: Excision of back skin. SARITA: 0 02/16/25. Consent signed. [facility] Start: 03-25-2025 End: 03-25-2025 Patient encounter procedure 03/25/2025 10:40 AM EDT Appointment Cat Scan [address] [place] [address] Encounter for screening for lung cancer [Z12.2] Cat Scan Comment on above: Encounter for screening for lung cancer [Z12.2] Start: 03-24-2025 End: 03-24-2025 Patient encounter procedure 03/24/2025 9:00 AM EDT Office Visit Internal Medicine [place] [address] [place] [address] Isatu Nieto MD [address] [place] [address] Pre-op clearance colonoscopy with MAC anesthesia. 04/22/25 at [facility] with Dr. Carrillo. [facility] [place] Comment on above: Pre-op clearance colonoscopy with MAC an esthesia. 04/22/25 at [facility] with Dr. Carrillo. Start: 03-19-2025 End: 03-19-2025 Patient encounter procedure Podiatry Comment on above: 3 MONTH FOLLOW UP NAIL CARE Start: 03-18-2025 End: 03-18-2025 Patient encounter procedure 03/18/2025 10:30 AM EDT Office Visit General Surgery [address] [place] [address] Franco Roblero MD [address] [place] [address] FU: Right breast periductal mastitis. Previously tx with ATB. [facility] General Surgery Comment on above: FU: Right breast periductal mastitis. Pr eviously tx with ATB. [facility] Start: 03-17-2025 End: 03-17-2025 Patient encounter procedure 03/17/2025 1:40 PM EDT Office Visit [facility] [place] [address] [place] [address] Isatu Nieto MD [address] [place] [address] 3 month follow up [facility] [place] Comment on above: 3 month follow up Start: 03-11-2025 End: 03-11-2025 Patient encounter procedure 03/11/2025 3:15 PM EDT Office Visit General Surgery [address] [facility] [place] [address] Franco Roblero MD [address] [facility], [place] [address] PROCEDURE: Excision of back skin. SARITA: 02/16/25. Consent signed. [facility] General Surgery Comment on above: PROCEDURE: Excision of back skin. SARITA: 0 02/16/25. Consent signed. [facility] Start: 03-09-2025 End: 03-09-2025 Patient encounter procedure 03/09/2025 1:30 PM EDT Office Visit Pulmonary Medicine [address] [facility] [place], [place] [phone] Valerie Hernandez APRN.HAND SCRAPER [address] [place] [address] Tobacco abuse [Z72.0] Pulmonary Medicine Comment on above: Tobacco abuse [Z72.0] Start: 03-04-2025 End: 03-04-2025 Patient encounter procedure 03/04/2025 3:00 PM EDT Office Visit General Surgery [address] [place] [address] Franco Roblero MD [address] [facility] [place] [address] f/u breast abscess General Surgery Comment on above: f/u breast abscess Start: 03-02-2025 End: 03-02-2025 Patient encounter procedure General Surgery Comment on above: excision of back skin PROCEDURE: Excision of back skin. SARITA: 02/16/25. Consent signed. [facility] Start: 02-26-2025 End: 02-26-2025 Patient encounter procedure 02/26/2025 10:15 AM EDT Office Visit Podiatry [address] [place], [place] [address] Torri Patel [address] [place] [address] 3 month fu Podiatry Comment on above: 3 month fu Start: 02-25-2025 End: 02-25-2025 Telemedicine consultation with patient 02/25/2025 9:00 AM EDT Telemedicine [facility] [address] [place] [address] Brando Cid, HAND SCRAPER [address] [place] [address] [facility] Start: 02-20-2025 Screening for malignant neoplasm of breast [facility] Start: 02-19-2025 Hemoglobin A1c measurement Hemoglobin A1C [facility] Start: 02-12-2025 End: 02-12-2025 Patient encounter procedure 02/12/2025 10:00 AM EDT Office Visit Internal Medicine [place] [address] [place], [place] [phone] Isatu Nieto MD [address] [place] [address] feeling pain [facility] [place] Comment on above: feeling pain Start: 02-11-2025 End: 02-11-2025 Patient encounter procedure 02/11/2025 9:15 AM EDT Office Visit General Surgery [address] [place], [place] [phone] Franco Roblero MD [address] [place], [place] [phone] f/u breast abscess General Surgery Comment on above: f/u breast abscess Start: 02-10-2025 End: 02-10-2025 Patient encounter procedure 02/10/2025 1:30 PM EDT Office Visit Vascular Surgery [address] [place] [address] Kimberly Maradiaga DO [address] [place] [address] I73.9 (ICD-10-CM) - PAD (peripheral artery disease) (HCC) Vascular Surgery Comment on above: I73.9 (ICD-10-CM) - PAD (peripheral adriano ry disease) (HCC) Start: 02-06-2025 History and physical examination, annual for [facility] maintenance Wellness Visit [facility] Start: 02-06-2025 End: 02-06-2025 Patient encounter procedure 02/06/2025 11:30 AM EDT Office Visit [facility] [address] [place] [address] Ant Hodge APRN-HAND SCRAPER [address] [place] [address] [facility] Start: 02-02-2025 End: 02-02-2025 Patient encounter procedure 02/02/2025 10:40 AM EDT Office Visit Internal Medicine [place] [address] [place], [place] [phone] Isatu Nieto MD [address] [place], [place] [phone] Bone pain see TE 01/19/25. [facility] [place] Comment on above: Bone pain see TE 01/19/25. Start: 01-28-2025 End: 01-28-2025 Patient encounter procedure 01/28/2025 10:00 AM EDT Office Visit Otolaryngology [address] [address] Matthew Howe MD [address] [place] [address] 3 Month Follow Up Otolaryngology Comment on above: 3 Month Follow Up Start: 01-20-2025 End: 04-21-2025 Lipid 1996 panel - Serum or Plasma LIPID PANEL BASIC Lab Routine Medication management Expected: 01/20/2025, Expires: 04/21/2025 [facility] Work Phone: Comment on above: Expected: 01/20/2025, Expires: Start: 01-12-2025 End: 01-12-2025 Patient encounter procedure Otolaryngology Comment on above: 3 Month Follow Up Conoloscopy consult/ constipation-last scope 01/03/21- Start: 01-09-2025 Hemoglobin A1c measurement Hemoglobin A1C [facility] Start: 01-08-2025 End: 01-08-2025 Patient encounter procedure 01/08/2025 1:30 PM EST Office Visit Vasculary Surgery [address] [place] [address] Tailor's bunion of both feet [M21.621, M21.622] Vasculary Surgery Comment on above: Tailor's bunion of both feet [M21.621, M 21.622] Start: 01-07-2025 End: 01-07-2025 Patient encounter procedure General Surgery Comment on above: f/u breast abscess f/u breast abscess/w ound management- Start: 01-01-2025 End: 01-01-2025 Patient encounter procedure 01/01/2025 10:45 AM EST Office Visit OB/Gynecology [address] [place] [address] Brando Lopez APRN.[facility] [address] [place] [address] annual OB/Gynecology Comment on above: annual Start: 12-31-2024 End: 12-31-2024 Patient encounter procedure 12/31/2024 10:15 AM EST Office Visit General Surgery [address] [place] [phone] Franco Roblero MD [address] [place], [place] [phone] Follow up General Surgery Comment on above: Follow up Start: 12-26-2024 DIABETES SCREEN DIABETES SCREEN [facility] Start: 12-25-2024 End: 12-25-2024 Patient encounter procedure General Surgery Comment on above: 1 WK F/U 1 WK F/U-poor healin g L Breast incision-RJ Start: 12-24-2024 End: 12-24-2024 Patient encounter procedure 12/24/2024 2:00 PM EST Office Visit General Surgery [address] [place], [place] [phone] Franco Roblero MD [address] [place], [place] [phone] 2w f/up General Surgery Comment on above: 2w f/up Start: 12-18-2024 End: 12-18-2024 Patient encounter procedure Radiology Comment on above: BILATERAL FOOT XR Consult bilateral bu nion issue/ingrown toenail Start: 12-17-2024 End: 12-17-2024 Patient encounter procedure 12/17/2024 10:40 AM EST Office Visit Otolaryngology [address] [address] Matthew Howe MD [address] [place] [address] 3 Month Follow Up Otolaryngology Comment on above: 3 Month Follow Up Start: 12-17-2024 End: 12-17-2024 Patient encounter procedure 12/17/2024 9:15 AM EST Office Visit General Surgery [address] [place], [place] [phone] Franco Roblero MD [address] [place], [place] [phone] 2w f/up General Surgery Comment on above: 2w f/up Start: 12-16-2024 End: 03-17-2025 25-hydroxyvitamin D3 [Mass/volume] in Serum or Plasma [facility] Comment on above: Expected: 12/16/2024, Expires: Start: 12-16-2024 End: 03-17-2025 CBC W Auto Differential panel - Blood [facility] Comment on above: Expected: 12/16/2024, Expires: Start: 12-16-2024 End: 03-17-2025 Cobalamin (Vitamin B12) [Mass/volume] in Serum or Plasma [facility] Comment on above: Expected: 12/16/2024, Expires: Start: 12-16-2024 End: 03-17-2025 Comprehensive metabolic 2000 panel - Serum or Plasma [facility] Comment on above: Expected: 12/16/2024, Expires: Start: 12-16-2024 End: 03-17-2025 Ferritin [Mass/volume] in Serum or Plasma [facility] Comment on above: Expected: 12/16/2024, Expires: Start: 12-16-2024 End: 03-17-2025 Hemoglobin A1c in Blood [facility] Comment on above: Expected: 12/16/2024, Expires: Start: 12-16-2024 End: 03-17-2025 Iron and Iron binding capacity panel - Serum or Plasma [facility] Work Phone: Comment on above: Expected: 12/16/2024, Expires: Start: 12-16-2024 End: 03-17-2025 Thyrotropin [Units/volume] in Serum or Plasma [facility] Comment on above: Expected: 12/16/2024, Expires: Start: 12-16-2024 End: 12-16-2024 Patient encounter procedure 12/16/2024 1:00 PM EST Office Visit Internal Medicine [place] [address] [place] [address] Isatu Nieto MD [address] [place] [address] est well [facility] Medicine [place] Comment on above: est well Start: 12-15-2024 Screening for malignant neoplasm of lung Lung Cancer Screening [facility] Start: 12-10-2024 End: 12-10-2024 Patient encounter procedure 12/10/2024 2:00 PM EST Office Visit General Surgery [address] [place], [place] [address] Franco Roblero MD [address] [place], [place] [address] f/u left breast abscess General Surgery Comment on above: f/u left breast abscess Start: 12-03-2024 End: 12-03-2024 Patient encounter procedure 12/03/2024 1:00 PM EST Office Visit General Surgery [address] [place], [place] [phone] Blanca Landis APRN.HAND SCRAPER [address] [place], [place] [phone] 1 wk f/u-left breast absess General Surgery Comment on above: 1 wk f/u-left breast absess Start: 12-01-2024 Colonoscopy COLONOSCOPY [facility] Start: 12-01-2024 COLORECTAL CANCER SCREENING COLORECTAL CANCER SCREENING [facility] Start: 11-26-2024 End: 11-26-2024 Patient encounter procedure General Surgery Comment on above: left breast absess f/u left breast absess f /u, c/o hx of breast abscess, abscess located 10 o' clock, no lateral orgin noted 08/21/24- sarita w/ RG 04/04/24- stb Start: 11-25-2024 End: 11-25-2024 Patient encounter procedure 11/25/2024 9:30 AM EST Office Visit [address] [place] [address] Colby Pisano MD [address] [place] [address] [facility] Start: 11-21-2024 End: 11-21-2024 Patient encounter procedure 11/21/2024 10:00 AM EST Office Visit [facility] [address] [place] [phone] Gerber Reno MD [address] [place] [phone] [facility] Start: 11-20-2024 End: 11-20-2024 Telemedicine consultation with patient 11/20/2024 7:00 AM EST Telemedicine [facility] [address] [place] [address] Brando Cid, HAND SCRAPER [address] [facility] [address] [place] [address] [facility] Start: 11-17-2024 End: 11-17-2024 Patient encounter procedure 11/17/2024 11:00 AM EST Office Visit [facility] Orthopedics [address] [place] [address] Leighton Beckett DO [address] [place] [address] [facility] Start: 11-12-2024 End: 11-12-2024 Patient encounter procedure 11/12/2024 11:00 AM EST Office Visit [address] [address] Colby Pisano MD [address] [place] [phone] [facility] Start: 11-11-2024 End: 11-11-2024 Patient encounter procedure 11/11/2024 11:00 AM EST Office Visit [address] [address] Colby Pisano MD [address] [place] [phone] [facility] Start: 11-07-2024 End: 11-07-2024 Patient encounter procedure 11/07/2024 10:30 AM EST Office Visit [facility] [address] [place] [address] Ant Hodge APRN-HAND SCRAPER [address] [place] [address] [facility] Start: 11-04-2024 End: 11-04-2024 Patient encounter procedure 11/04/2024 9:30 AM EST Office Visit [address] [address] Colby Pisano MD [address] [place] [phone] [facility] Start: 11-03-2024 End: 11-03-2024 Patient encounter procedure 11/03/2024 1:20 PM EST Office Visit [facility] [address] [place] [phone] Gerber Reno MD [address] [place] [phone] [facility] Start: 10-30-2024 End: 10-30-2024 Admission to same day surgery center 10/30/2024 11:45 AM EST - 10/30/2024 1:00 PM EST Surgery [facility] [address] [place] [address] Colby Pisano MD [address] [place] [phone] CENTRAL LUMPECTOMY W/ VAC PLACEMENT [facility] Comment on above: CENTRAL LUMPECTOMY W/ VAC PLACEMENT Start: 10-30-2024 Subsequent hospital visit by physician 10/30/2024 11:45 AM EST Hospital Encounter [facility] [address] [place] [address] Colby Pisano MD [address] [place] [address] Breast abscess [facility] Comment on above: Breast abscess Start: 10-30-2024 End: 10-30-2024 Mastectomy partial [facility] Start: 10-30-2024 End: 10-30-2024 Admission to same day surgery center 10/30/2024 8:30 AM EST - 10/30/2024 9:45 AM EST Surgery [facility] [address] [place] [address] Colby Pisano MD [address] [place] [address] CENTRAL LUMPECTOMY W/ VAC PLACEMENT [facility] Comment on above: CENTRAL LUMPECTOMY W/ VAC PLACEMENT Start: 10-30-2024 End: 10-30-2024 Mastectomy partial MASTECTOMY PARTIAL (LUMPECTOMY) Breast abscess 10/30/2024 8:30 AM EST [facility] Start: 10-30-2024 Subsequent hospital visit by physician 10/30/2024 8:30 AM EST Hospital Encounter [facility] [address] [place] [address] Colby Pisano MD [address] [place] [phone] Breast abscess [facility] Comment on above: Breast abscess Start: 10-24-2024 End: 10-24-2024 Admission to establishment 10/24/2024 10:30 AM EST Pre-Operative Nurse Assessment [facility] Pre Admission [address] [place] [address] Preop testing (Primary Dx) [facility] Pre Admission Comment on above: Preop testing (Primary Dx) Start: 10-22-2024 End: 10-22-2024 Patient encounter procedure 10/22/2024 9:30 AM EST Office Visit [facility] [address] [place] [address] Colby Pisano MD [address] [place] [phone] [facility] Start: 10-13-2024 End: 10-13-2024 Patient encounter procedure 10/13/2024 1:00 PM EST Office Visit [facility] [address] [place] [phone] Rachael Contreras MD [address] [place] [address] [facility] Start: 10-09-2024 End: 10-09-2024 Patient encounter procedure [facility] Start: 10-08-2024 End: 10-08-2024 Patient encounter procedure 10/08/2024 9:30 AM EST Office Visit [facility] [address] [place] [address] Colby Pisano MD [address] [place] [phone] [facility] Start: 10-06-2024 End: 10-06-2024 Patient encounter procedure 10/06/2024 11:30 AM EST Office Visit [facility] [address] [place] [address] Brando Cid CNP [address] [place] [address] [facility] Start: 10-01-2024 End: 10-01-2024 Clinical Support Encounter 10/01/2024 2:00 PM EST Clinical Support Encounter [facility] [address] [place] [phone] Leeann Thompson APRN-HAND SCRAPER [address] [place] [address] [facility] Start: 09-29-2024 End: 09-29-2024 Patient encounter procedure 09/29/2024 10:45 AM EST Office Visit [facility] [address] [place] [phone] Leeann Thompson, GENERATOR SWITCHBOARD OPERATOR-HAND SCRAPER [address] [place] [address] [facility] Start: 09-26-2024 End: 09-26-2024 Admission to same day surgery center [facility] Comment on above: EXCISION BREAST CYST FIBROADENOMA LESION -excision of left breast abscess/fibroadenoma and placement of a wound vac Start: 09-26-2024 End: 09-26-2024 Exc cyst/aberrant breast tissue open 1/> lesion [facility] Start: 09-26-2024 Subsequent hospital visit by physician [facility] Comment on above: Breast abscess Start: 09-25-2024 End: 09-25-2024 Patient encounter procedure [facility] Otolaryngology Start: 09-11-2024 End: 09-11-2024 Admission to [facility] Pre Ad[facility] Comment on above: Preop testing (Primary Dx) Start: 09-03-2024 End: 09-03-2024 Patient encounter procedure 09/03/2024 10:20 AM EDT Office Visit Otolaryngology [address] [address] Matthew Howe MD [address] [place], [place] [phone] Follow up Otolaryngology Comment on above: Follow up Start: 08-29-2024 End: 08-29-2024 Patient encounter procedure 08/29/2024 1:00 PM EDT Office Visit General Surgery [address] [place] [address] Franco Roblero MD [address] [address] left breast absess f/u General Surgery Comment on above: left breast absess f/u Start: 08-28-2024 End: 08-28-2024 Patient encounter procedure 08/28/2024 11:20 AM EDT Office Visit [facility] Cardiology [address] [place] [address] Simone Mondragon II, MD [address] [place] [address] [facility] Start: 08-17-2024 Covid-19 Vaccine (#1) Covid-19 Vaccine (#1) [facility] Comment on above: Postponed from 1974 (Declined at t his time) Start: 08-17-2024 Covid-19 Vaccine () Covid-19 Vaccine () [facility] Comment on above: Postponed from 07/06/2023 (Declined at t his time) Start: 08-17-2024 Hemoglobin A1c measurement [facility] Start: 08-13-2024 End: 08-13-2024 Patient encounter procedure 08/13/2024 11:30 AM EDT Office Visit Otolaryngology [address] [address] Matthew Howe MD [address] [place] [address] consult for surgery vocal lesions need scrape abd biopsied lasered off Otolaryngology Comment on above: consult for surgery vocal lesions need s crape abd biopsied lasered off Start: 08-06-2024 End: 08-06-2024 Patient encounter procedure 08/06/2024 10:00 AM EDT Office Visit [facility] [address] [place] [address] Ant Hodge APRN-LUZ ELENA [address] [place] [address] [facility] Start: 07-06-2024 Covid-19 Vaccine () Covid-19 Vaccine () [facility] Start: 07-06-2024 Covid-19 Vaccine ( season) Covid-19 Vaccine () [facility] Start: 07-06-2024 Influenza vaccination [facility] Start: 05-29-2024 End: 05-29-2024 Patient encounter procedure 05/29/2024 11:00 AM EDT Office Visit Neurology [address] [place] [address] Alta Koehler APRN.HAND SCRAPER [address] [place] [address] follow up after sleep study Neurology Comment on above: follow up after sleep study Start: 05-24-2024 End: 05-24-2024 Patient encounter procedure Mammography Comment on above: LEFT BREAST AXILLA LYMPH NODE BIOPSY LEFT BREAST ULTRASOU ND GUIDED CORE BIOPSY Start: 05-07-2024 End: 05-07-2024 Patient encounter procedure 05/07/2024 12:20 PM EDT Office Visit [facility] [place] [address] [place] [address] Milly Feliciano APRN.HAND SCRAPER [address] [place] [address] Annual Physical and Medication Refill [facility] [place] Comment on above: Annual Physical and Medication Refill Start: 05-04-2024 Influenza vaccination Influenza Vaccine (#1) [place] [facility] Comment on above: Postponed from 07/06/2023 (Declined at t his time) Start: 05-02-2024 End: 05-02-2024 Patient encounter procedure 05/02/2024 9:05 PM EDT Office Visit Neurology [address] [place] [address] Diagnosis: RERE (obstructive sleep apnea) [G47.33] Neurology Comment on above: Diagnosis: RERE (obstructive sleep apnea) [G47.33] Start: 04-25-2024 End: 04-25-2024 Patient encounter procedure 04/25/2024 1:30 PM EDT Office Visit [facility] Otolaryngology (ENT) [address] [place] [address] Jassi Ureña MD [address] [place] [address] [facility] Otolaryngology (ENT) Start: 04-21-2024 End: 04-21-2024 Patient encounter procedure 04/21/2024 10:30 AM EDT Office Visit General Surgery [address] [place], [place] [id number] Debra Carrillo MD [address] [place] [id number] consult left breast, images from [facility] imaging tab [facility] General Surgery Comment on above: consult left breast, images from [facility] i n imaging tab bjs Start: 04-11-2024 End: 04-11-2024 Patient encounter procedure 04/11/2024 2:00 PM EDT Office Visit OB/Gynecology [address] [place], [place] [id number] Brando Lopez APRN.CNM [address] [place], [place] [id number] std check OB/Gynecology Comment on above: std check Start: 04-04-2024 End: 04-04-2024 Patient encounter procedure General Surgery Comment on above: breast consult LEFT breast consult, images and report for mammo/ us in [facility] Start: 04-01-2024 End: 04-01-2024 Patient encounter procedure 04/01/2024 2:00 PM EDT Office Visit General Surgery [address] [place], [place] [phone] Franco Roblero MD [address] [phone] consult left breast General Surgery Comment on above: consult left breast Start: 03-26-2024 End: 03-26-2024 Patient encounter procedure 03/26/2024 1:45 PM EDT Office Visit OB/Gynecology [address] [place] [address] Brando Lopez APRN.CN [address] [place] [address] std check OB/Gynecology Comment on above: std check Start: 03-25-2024 End: 03-25-2024 Patient encounter procedure 03/25/2024 1:00 PM EDT Office Visit [facility] Vascular Surgery [address] [place] [address] Endy De Anda MD [address] [place] [address] [facility] Vascular Surgery Start: 03-20-2024 End: 03-20-2024 Patient encounter procedure 03/20/2024 2:40 PM EDT Appointment Mammography [address] [place] [address] Pain Mammography Comment on above: Pain Start: 03-19-2024 Vinod Ann [facility] Start: 03-13-2024 End: 03-13-2024 Patient encounter procedure 03/13/2024 8:45 AM EDT Office Visit [facility] [employer] [address] [place] [address] DO [address] [place] [address] [facility] [employer] Start: 03-11-2024 End: 03-11-2024 Professional / ancillary services management 03/11/2024 9:00 AM EDT Ancillary Procedure [facility] [address] [facility], [address] [place] [address] [facility] Start: 03-07-2024 End: 03-07-2024 Patient encounter procedure 03/07/2024 2:20 PM EDT Office Visit [facility] General Surgery [address] [place] [address] [address] [place] [address] Aaliyah Urbina, [employer] [address] [place] [address] [facility] [place] General Surgery Start: 03-06-2024 End: 03-06-2024 Patient encounter procedure 03/06/2024 9:00 AM EDT Office Visit [facility] [employer] [address] [place] [address] Leigha Granda MD [address] [place] [address] [facility] [employer] Start: 02-27-2024 End: 02-27-2024 Patient encounter procedure [facility] Otolaryngology (ENT) Start: 02-22-2024 Vinod Ann [facility] Start: 02-21-2024 End: 02-21-2024 Patient encounter procedure 02/21/2024 2:00 PM EDT Appointment [facility] Ultrasound [address] [place] [address] [facility] Start: 02-21-2024 End: 02-20-2025 US Guidance for biopsy of Breast - left MG BX BREAST 1ST LESION US IMG LT (DAPHNE) Imaging Routine Abnormal finding on breast imaging Expected: 02/21/2024, Expires: 02/20/2025 [facility] Work Phone: Comment on above: Expected: 02/21/2024, Expires: Start: 02-21-2024 Subsequent hospital visit by physician 02/21/2024 1:20 PM EDT Hospital Encounter [facility] Mammography [address] [place] [address] [facility] Start: 02-20-2024 End: 02-19-2025 CTA Abdominal Aorta and Bilateral Runoff Vessels W contrast IV CTA ABDOMINAL AORTA RUNOFF W/ CONTRAST Imaging Routine PAD (peripheral artery disease) (HCC) Expected: 02/20/2024, Expires: 02/19/2025 [facility] [email or web address] [facility] Work Phone: Comment on above: Expected: 02/20/2024, Expires: Start: 02-13-2024 End: 02-13-2024 Vinod Ann [facility] Start: 02-13-2024 Dietary management education, guidance, and counseling Dietary management education, guidance, and counseling [facility] Start: 02-13-2024 Patient referral BILATERAL EXTREMITY STUDY Right leg [facility] Start: 02-13-2024 Smoking cessation education Tobacco cessation counseling [facility] Start: 02-13-2024 [facility] Start: 02-12-2024 Vinod Ann [facility] Start: 02-07-2024 Counseling about tobacco use Tobacco cessation counseling [facility] Start: 02-07-2024 Us breast uni real time with image limited [facility] Start: 02-07-2024 End: 02-07-2024 [facility] Start: 02-07-2024 Hepatitis C virus Ab Signal/Cutoff in Serum or Plasma by Immunoassay HCV Antibody ([id number]), Ordered on: [facility] Start: 02-07-2024 HIV 1+2 Ab+HIV1 p24 Ag [Presence] in Serum or Plasma by Immunoassay HIV 1/0/2 Ag/Ab with Reflex ([id number]), Ordered on: [facility] Start: 01-31-2024 End: 01-31-2024 Patient encounter procedure 01/31/2024 2:00 PM EDT Procedure Visit [facility] [address] [place] [address] Leigha Alford, DPM [address] [place] [address] [facility] Start: 01-24-2024 Administration of herpes zoster vaccine Zoster Vaccines (1 of 2) [facility] Start: 01-24-2024 Screening for malignant neoplasm of colon Flexible sigmoidoscopy [facility] Start: 01-24-2024 Screening for malignant neoplasm of lung LUNG CANCER SCREENING [facility] Start: 01-24-2024 Shingles (RZV) Vaccine (1 of 2) Shingles (RZV) Vaccine (1 of 2) [facility] Start: 01-24-2024 Shingrix Vaccine (1 of 2) Shingrix Vaccine (1 of 2) [facility] Start: 01-24-2024 Zoster vaccine hzv live for subcutaneous use ZOSTER (SHINGLES) VACCINE (1 of 2) [facility] Start: 12-25-2023 End: 12-25-2023 Patient encounter procedure 12/25/2023 10:00 AM EST Office Visit [facility] ENT [address] [phone] Matthew Holden, [address] [address] post op direct laryngoscopy w/biopsy [facility] ENT Comment on above: post op direct laryngoscopy w/biopsy Start: 12-21-2023 End: 12-21-2023 Patient encounter procedure 12/21/2023 4:00 PM EST Appointment [facility] CT Scan [address] [place] [address] Juliana Pedraza MD [address] [place] [address] [email or web address] [facility] CT Scan Comment on above: [email or web address]//[email or web address]//[email or web address] Start: 12-17-2023 End: 12-17-2023 Admission to same day surgery center 12/17/2023 12:02 PM EST - 12/17/2023 12:59 PM EST Surgery [facility] [address] [place] [address] Matthew Holden, DO [address] [address] PANENDOSCOPY WITH BIOPSY TRUE VOCAL CORD LESION WITH PATHOLOGY (PATHOLOGY NOTIFIED) [facility] Comment on above: PANENDOSCOPY WITH BIOPSY TRUE VOCAL CORD LESION WITH PATHOLOGY (PATHOLOGY NOTIFIED) Start: 12-17-2023 End: 12-17-2023 Laryngoscopy direct operative w/biopsy LARYNGOSCOPY Lesion of true vocal cord 12/17/2023 12:02 PM EST [facility] Start: 12-17-2023 Subsequent hospital visit by physician 12/17/2023 12:02 PM EST Hospital Encounter [facility] [address] [place], [place] [phone] Matthew Holden DO [address] [address] [facility] Start: 11-05-2023 Behavioral Health Screening Behavioral Health Screening [facility] Start: 11-05-2023 Depression Assessment Depression Assessment [facility] Start: 10-18-2023 HEPATITIS B (1 of 3 - 3-dose series) HEPATITIS B (1 of 3 - 3-dose series) [facility] Comment on above: Postponed from 1974 (Declined at t his time) Start: 10-18-2023 Hepatitis B Vaccine (1 of 3 - 3-dose series) Hepatitis B Vaccine (1 of 3 - 3-dose series) [facility] Comment on above: Postponed from 1974 (Declined at t his time) Start: 10-18-2023 PNEUMOCOCCAL (1 - PCV) PNEUMOCOCCAL (1 - PCV) [facility] Comment on above: Postponed from 01/24/1980 (Declined at t his time) Start: 10-18-2023 PNEUMOCOCCAL (2 - PCV) PNEUMOCOCCAL (2 - PCV) [facility] Comment on above: Postponed from 11/20/2015 (Declined at t his time) Start: 10-18-2023 Pneumococcal vaccination Pneumococcal Vaccine (2 - PCV) [facility] Comment on above: Postponed from 11/20/2015 (Declined at t his time) Start: 08-17-2023 End: 10-17-2023 Basic metabolic 2000 panel - Serum or Plasma BASIC METABOLIC PNL Lab Routine Hypertension, unspecified type Expected: 08/17/2023, Expires: 10/17/2023 [facility] Work Phone: Comment on above: Expected: 08/17/2023, Expires: 3 Start: 08-17-2023 End: 10-17-2023 CBC panel - Blood by Automated count CBC Lab Routine Hypertension, unspecified type Expected: 08/17/2023, Expires: 10/17/2023 [facility] Work Phone: Comment on above: Expected: 08/17/2023, Expires: 3 Start: 08-17-2023 End: 10-17-2023 Lipid 1996 panel - Serum or Plasma LIPID PANEL BASIC Lab Routine Mixed hyperlipidemia Expected: 08/17/2023, Expires: 10/17/2023 [facility] Work Phone: Comment on above: Expected: 08/17/2023, Expires: 3 Start: 07-06-2023 Influenza vaccination [facility] Start: 06-05-2023 Influenza vaccination Flu vaccine (#1) [facility] Start: 05-04-2023 Influenza vaccination INFLUENZA (#1) [facility] Comment on above: Postponed from 07/06/2022 (Declined at t his time) Start: 04-03-2023 End: 06-03-2023 Urate [Mass/volume] in Serum or Plasma URIC ACID BLOOD Lab Routine Swelling of hand, unspecified laterality Expected: 04/03/2023, Expires: 06/03/2023 [facility] Work Phone: Comment on above: Expected: 04/03/2023, Expires: 3 Start: 01-03-2023 End: 03-05-2023 25-hydroxyvitamin D3 [Mass/volume] in Serum or Plasma VITAMIN D 25 HYDROXY Lab Routine Annual physical exam Vitamin D deficiency Expected: 01/03/2023 (Approximate), Expires: 03/05/2023 [facility] Work Phone: Comment on above: Expected: 01/03/2023 (Approximate), Expi res: 03/05/2023 Start: 01-03-2023 End: 03-05-2023 CBC W Auto Differential panel - Blood CBC + DIFF Lab Routine Annual physical exam Expected: 01/03/2023 (Approximate), Expires: 03/05/2023 [facility] Work Phone: Comment on above: Expected: 01/03/2023 (Approximate), Expi res: 03/05/2023 Start: 01-03-2023 End: 03-05-2023 Comprehensive metabolic 2000 panel - Serum or Plasma COMP METABOLIC PANEL Lab Routine Annual physical exam Expected: 01/03/2023 (Approximate), Expires: 03/05/2023 [facility] Work Phone: Comment on above: Expected: 01/03/2023 (Approximate), Expi res: 03/05/2023 Start: 01-03-2023 End: 03-05-2023 Lipid 1996 panel - Serum or Plasma LIPID PANEL BASIC Lab Routine Annual physical exam Expected: 01/03/2023 (Approximate), Expires: 03/05/2023 [facility] Work Phone: Comment on above: Expected: 01/03/2023 (Approximate), Expi res: 03/05/2023 Start: 01-03-2023 Mammography [facility] Start: 01-03-2023 Screening for malignant neoplasm of breast [facility] Start: 12-27-2022 End: 02-26-2023 Hepatitis B virus surface Ag [Presence] in Serum [facility] Work Phone: Comment on above: Expected: 12/27/2022, Expires: 3 Start: 12-27-2022 End: 02-26-2023 Hepatitis C virus RNA [Units/volume] (viral load) in Serum or Plasma by CHETAN with probe detection [facility] Work Phone: Comment on above: Expected: 12/27/2022, Expires: 3 Start: 12-27-2022 End: 02-26-2023 HIV 1+2 Ab [Presence] in Serum or Plasma by Immunoassay [facility] Work Phone: Comment on above: Expected: 12/27/2022, Expires: Start: 12-27-2022 End: 02-26-2023 SYPHILIS TOTAL W/REFLEX [facility] Work Phone: Comment on above: Expected: 12/27/2022, Expires: 3 Start: 12-26-2022 Adult depression screening assessment DEPRESSION SCREENING [facility] Start: 12-26-2022 COVID-19 VACCINE (#1) COVID-19 VACCINE (#1) [facility] Comment on above: Postponed from 1979 (Declined at t his time) Postponed from 07/26 (Declined at this time) Start: 12-26-2022 COVID-19 VACCINE (1) COVID-19 VACCINE (1) [facility] Comment on above: Postponed from 1979 (Declined at t his time) Start: 11-05-2022 DEPRESSION ASSESSMENT DEPRESSION ASSESSMENT [facility] Start: 07-06-2022 Influenza vaccination [facility] Start: 06-26-2022 End: 08-26-2022 Hepatitis B virus surface Ab [Presence] in Serum by Immunoassay HEP B SURF AG SCRN Lab Routine Encounter for gynecological examination (general) (routine) without abnormal findings Screen for STD (sexually transmitted disease) Expected: 06/26/2022, Expires: 08/26/2022 [facility] Work Phone: Comment on above: Expected: 06/26/2022, Expires: 2 Start: 06-26-2022 End: 08-26-2022 Hepatitis C virus RNA [Units/volume] (viral load) in Serum or Plasma by CHETAN with probe detection HCV QUANT RNA BY PCR Lab Routine Encounter for gynecological examination (general) (routine) without abnormal findings Screen for STD (sexually transmitted disease) Expected: 06/26/2022, Expires: 08/26/2022 [facility] Work Phone: Comment on above: Expected: 06/26/2022, Expires: 2 Start: 06-26-2022 End: 08-26-2022 HERPES SIMPLEX TYPE 1 AND 2 IG HERPES SIMPLEX TYPE 1 AND 2 IG Lab Routine Encounter for gynecological examination (general) (routine) without abnormal findings Screen for STD (sexually transmitted disease) Expected: 06/26/2022, Expires: 08/26/2022 [facility] Work Phone: Comment on above: Expected: 06/26/2022, Expires: 2 Start: 06-26-2022 End: 08-26-2022 Herpes simplex virus IgM Ab [Presence] in Serum by Immunoassay HERPES SIMPLEX IGM AB Lab Routine Encounter for gynecological examination (general) (routine) without abnormal findings Screen for STD (sexually transmitted disease) Expected: 06/26/2022, Expires: 08/26/2022 [facility] Work Phone: Comment on above: Expected: 06/26/2022, Expires: 2 Start: 06-26-2022 End: 08-26-2022 HIV 1+2 Ab [Presence] in Serum or Plasma by Immunoassay HIV 1 2 COMBO(AG/AB),WITH REFLEX TO DIFFERENTIATION Lab Routine Encounter for gynecological examination (general) (routine) without abnormal findings Screen for STD (sexually transmitted disease) Expected: 06/26/2022, Expires: 08/26/2022 [facility] Work Phone: Comment on above: Expected: 06/26/2022, Expires: 2 Start: 06-26-2022 End: 08-26-2022 Lipid 1996 panel - Serum or Plasma LIPID PANEL BASIC Lab Routine Mixed hyperlipidemia Expected: 06/26/2022, Expires: 08/26/2022 [facility] Work Phone: Comment on above: Expected: 06/26/2022, Expires: 2 Start: 06-26-2022 End: 08-26-2022 SYPHILIS TOTAL W/REFLEX SYPHILIS TOTAL W/REFLEX Lab Routine Encounter for gynecological examination (general) (routine) without abnormal findings Screen for STD (sexually transmitted disease) Expected: 06/26/2022, Expires: 08/26/2022 [facility] Work Phone: Comment on above: Expected: 06/26/2022, Expires: 2 Start: 05-04-2022 Influenza vaccination INFLUENZA (#1) [facility] Comment on above: Postponed from 07/06/2021 (Declined at t his time) Start: 03-21-2022 [facility] Work Phone: Start: 12-17-2021 Screening for malignant neoplasm of breast MAMMOGRAM SCREENING DISCUSSION [facility] Start: 11-05-2021 DEPRESSION ASSESSMENT DEPRESSION ASSESSMENT [facility] Start: 10-20-2019 HPV TESTING HPV TESTING [facility] Start: 10-20-2019 PAP TESTING PAP TESTING [facility] Start: 08-24-2019 Lipid 1996 panel - Serum or Plasma Lipid Screening [facility] Start: 08-24-2019 Lipid panel Lipid Screening [facility] Start: 08-24-2019 LIPID SCREEN LIPID SCREEN [facility] Start: 2019 Cholesterol [Mass/volume] in Serum or Plasma Cholesterol [facility] Start: 2019 COLOGUARD (FIT-DNA) COLOGUARD (FIT-DNA) [facility] Start: [address] COLONOGRAPHY [facility] Start: 2019 FECAL OCCULT BLOOD FECAL OCCULT BLOOD [facility] Start: 2019 Screening for malignant neoplasm of colon [facility] [employer] Start: 2019 SIGMOIDOSCOPY SIGMOIDOSCOPY [facility] Start: 11-20-2015 Pneumococcal 0-64 years Vaccine (2 - PCV) Pneumococcal 0-64 years Vaccine (2 - PCV) [facility] [employer] Start: 11-20-2015 Pneumococcal vaccination [facility] Start: 11-20-2015 PNEUMOCOCCAL VACCINE SERIES (2 of 2 - PCV) PNEUMOCOCCAL VACCINE SERIES (2 of 2 - PCV) [facility] Start: 11-20-2015 Pneumococcal Vaccine: 50+ (2 of 2 - PCV) Pneumococcal Vaccine: 50+ (2 of 2 - PCV) [facility] Start: 11-20-2015 Pneumococcal Vaccine: Age 50+ (2 of 2 - PCV) Pneumococcal Vaccine: Age 50+ (2 of 2 - PCV) [facility] Start: 11-20-2015 Pneumococcal Vaccine: Ped or At-Risk (2 of 2 - PCV) Pneumococcal Vaccine: Ped or At-Risk (2 of 2 - PCV) [facility] Start: 08-24-2015 Hepatitis B surface antibody level LDL Cholesterol [facility] Start: 2014 Lipid panel [facility] Start: 2009 Diabetes screen Diabetes screen [facility] Start: 01-24-2004 Screening for malignant neoplasm of cervix [facility] Start: 1995 Screening for malignant neoplasm of cervix [facility] Start: 1993 Hepatitis A (HAV) Vaccine (optional start 19+ years) Hepatitis A (HAV) Vaccine (optional start 19+ years) [facility] Start: 1993 Hepatitis B vaccination [facility] Start: 1993 Hepatitis B Vaccine (1 of 3 - 19+ 3-dose series) Hepatitis B Vaccine (1 of 3 - 19+ 3-dose series) [facility] Start: 01-24-1992 BP Controlled (<130/80) BP Controlled (<130/80) [facility] Start: 01-24-1992 Depression Screening Depression Screening [facility] Start: 01-24-1992 Hepatitis C screening [facility] Start: 1989 HIV screening [facility] Start: 1986 Depression Screen Depression Screen [facility] Start: 01-24-1984 Diabetic foot examination Diabetic Foot Exam [facility] Start: 01-24-1984 Glaucoma screening Dilated Retinal Exam [facility] Start: 01-24-1984 Hepatitis B screening Urine Albumin:Creatinine Ratio [facility] Start: 01-24-1980 PNEUMOCOCCAL (1 - PCV) PNEUMOCOCCAL (1 - PCV) [facility] Start: 1977 History and physical examination, annual for health maintenance Wellness Visit [facility] Start: 1974 COVID-19 VACCINE (#1) COVID-19 VACCINE (#1) [facility] Start: 1974 HEPATITIS B (1 of 3 - 3-dose series) HEPATITIS B (1 of 3 - 3-dose series) [facility] Start: 1974 Hepatitis B vaccination Hepatitis B (HBV) Vaccine (1 of 3 - 3-dose series) [facility] Start: 1974 Hepatitis B vaccine (1 of 3 - 3-dose series) Hepatitis B vaccine (1 of 3 - 3-dose series) [facility] Start: 1974 Hepatitis C screening HEPATITIS C VIRUS SCREENING [facility] Start: 1974 Screening for malignant neoplasm of colon [facility] ANAEROBE CULTURE [employer] [facility] Comment on above: Release Upon Ordering for 1 Occurrences starting 10/30/2024 Bacteria identified in Wound by Culture ABSCESS AND WOUND CULTURE WITH GRAM STAIN Microbiology Routine Breast discharge Breast abscess 02/14/2023 9:31 AM EDT [facility] Work Phone: Bacterial culture an d sensitivity CULTURE WOUND Microbiology Routine Abscess of right genital labia Ordered: 09/18/2024 [facility] Comment on above: Ordered: 09/18/2024 End: 09-26-2024 Bacterial culture and sensitivity [facility] Comment on above: One Time for 1 Occurrences starting 09/06 until 09/26/2024 BACTERIAL VAGINOSIS AMPLIFICATION BACTERIAL VAGINOSIS AMPLIFICATION Lab Routine Vaginal burning 08/16/2022 4:25 PM EDT [facility] Work Phone: BACTERIAL VAGINOSIS AMPLIFICATION BACTERIAL VAGINOSIS AMPLIFICATION Lab Routine Screen for STD (sexually transmitted disease) 12/27/2022 11:14 AM [employer] [facility] [employer] Work Phone: SALLY / TRICHOMONA S AMPLIFICATION SALLY / TRICHOMONAS AMPLIFICATION Microbiology Routine Vaginal burning Screen for STD (sexually transmitted disease) 08/16/2022 4:25 PM EDT [facility] Work Phone: SALLY / TRICHOMONA S AMPLIFICATION SALLY / TRICHOMONAS AMPLIFICATION Microbiology Routine Screen for STD (sexually transmitted disease) 12/27/2022 11:14 AM [employer] [facility] [employer] Work Phone: Change of dressing CO DRESSING Juan David DENISE CO - OFFICE PERFORMED Routine Abscess of left breast Nonhealing surgical wound, sequela Ordered: 09/29/2024 [facility] Comment on above: Ordered: 09/29/2024 Chlamydia trachomatis+Neisseria gonorrhoeae DNA [Presence] in Unspecified specimen by CHETAN with probe detection GC/CHLAMYDIA DNA DET Lab Routine Screen for STD (sexually transmitted disease) 06/26/2022 2:18 PM EDT [facility] [employer] Work Phone: Chlamydia trachomatis+Neisseria gonorrhoeae DNA [Presence] in Unspecified specimen by CHETAN with probe detection GC/CHLAMYDIA DNA DET Lab Routine Vaginal burning Screen for STD (sexually transmitted disease) 08/16/2022 4:25 PM EDT [facility] Work Phone: Chlamydia trachomatis+Neisseria gonorrhoeae DNA [Presence] in Unspecified specimen by CHETAN with probe detection GC/CHLAMYDIA DNA DET Lab Routine Screen for STD (sexually transmitted disease) 12/27/2022 11:14 AM EST [facility] Work Phone: End: 07-03-2023 COLONOSCOPY DIAGNOSTIC COLONOSCOPY DIAGNOSTIC Endoscopy Routine Rectal bleeding 1 Occurrences starting 07/03/2022 until 07/03/2023 [facility] Work Phone: Comment on above: 1 Occurrences starting 07/03/2022 until 07/03/2023 End: 04-08-2026 CT Chest for screening WO contrast CT LUNG SCREEN WO IVCON Radiology Routine Encounter for screening for lung cancer Tobacco abuse 1 Occurrences starting 03/09/2025 until 04/08/2026 [facility] Work Phone: Comment on above: 1 Occurrences starting 03/09/2025 until 04/08/2026 Culture, Wound Culture, Wound Microbiology [employer] Label Print 12/16/2023 12:15 PM EST [facility] End: 01-31-2026 DBT Breast - bilateral screening JAE SCREENING W REMEDIOS Radiology Routine Encounter for screening mammogram for breast cancer 1 Occurrences starting 01/01/2025 until 01/31/2026 [facility] Work Phone: Comment on above: 1 Occurrences starting 01/01/2025 until 01/31/2026 End: 07-26-2023 Diagnostic mammography computer-aided detcj bi JAE DIAGNOSTIC BILAT Radiology Routine Nipple discharge 1 Occurrences starting 06/26/2022 until 07/26/2023 [facility] Work Phone: Comment on above: 1 Occurrences starting 06/26/2022 until 07/26/2023 End: 01-12-2026 EGD DIAGNOSTIC EGD DIAGNOSTIC Endoscopy Routine Gastroesophageal reflux disease, unspecified whether esophagitis present Nausea 1 Occurrences starting 01/12/2025 until 01/12/2026 [facility] Comment on above: 1 Occurrences starting 01/12/2025 until 01/12/2026 End: 04-03-2024 EMG(NEURO/NI) EMG(NEURO/NI) EMG Routine Bilateral carpal tunnel syndrome 1 Occurrences starting 04/03/2023 until 04/03/2024 [facility] Work Phone: Comment on above: 1 Occurrences starting 04/03/2023 until 04/03/2024 End: 03-30-2024 EMG(NEURO/NI) EMG(NEURO/NI) EMG Routine Numbness and tingling in both hands 1 Occurrences starting 03/30/2023 until 03/30/2024 [facility] Work Phone: Comment on above: 1 Occurrences starting 03/30/2023 until 03/30/2024 Influenza virus A an d B RNA and SARS-CoV-2 (COVID-19) N gene panel - Respiratory specimen by CHETAN with probe detection COVID WITH FLUA+B, ROUTINE Microbiology Routine Acute cough Fever, unspecified fever cause Sore throat Fatigue, unspecified type Ordered: 07/26/2022 [facility] Work Phone: Comment on above: Ordered: 07/26/2022 Largsc exc ning&/strp g cords/epigl mcrscp/tlscp LARYNGOSCOPY DIRECT W/ EXCISION OF TUMOR & STRIP VOCAL CORDS W/ MICROSCOPE Vocal fold leukoplakia [facility] Largsc exc ning&/strp g cords/epigl mcrscp/tlscp LARYNGOSCOPY DIRECT W/ EXCISION OF TUMOR & STRIP VOCAL CORDS W/ MICROSCOPE Vocal fold leukoplakia [facility] End: 12-14-2024 Fpc Continuous Cardiac Event Monitor Fpc Continuous Cardiac Event Monitor Cardiac Services Routine Palpitations 1 Occurrences starting 12/14/2023 until 12/14/2024 [facility] Comment on above: 1 Occurrences starting 12/14/2023 until 12/14/2024 End: 09-14-2024 JEA DIAGNOSTIC BILATERAL JAE DIAGNOSTIC BILATERAL Radiology Routine Breast abscess Bloody discharge from left nipple 1 Occurrences starting 08/16/2023 until 09/14/2024 [facility] Work Phone: Comment on above: 1 Occurrences starting 08/16/2023 until 09/14/2024 Oxygen therapy [[facility] [place] Data Set] Initiate Oxygen Therapy Protocol Respiratory Care Routine As Needed until discontinued starting 12/14/2023 [facility] Comment on above: As Needed until discontinued starting PAP FLUID CERVICAL SCREENING PAP FLUID CERVICAL SCREENING Lab Routine Encounter for gynecological examination (general) (routine) without abnormal findings Screening for cervical cancer Encounter for screening for human papillomavirus (HPV) 06/26/2022 2:18 PM EDT [facility] Work Phone: Patient Education [facility] Work Phone: Patient referral [facility] Work Phone: End: 02-25-2025 Polysomnogram POLYSOMNOGRAM (PSG) Procedures Routine RERE (obstructive sleep apnea) 1 Occurrences starting 02/26/2024 until 02/25/2025 [facility] Work Phone: Comment on above: 1 Occurrences starting 02/26/2024 until 02/25/2025 RAPID STREP TEST B/O RAPID STREP TEST B/O Lab Routine Fever, unspecified fever cause Sore throat Fatigue, unspecified type Ordered: 07/26/2022 [facility] Work Phone: Comment on above: Ordered: 07/26/2022 End: 01-12-2026 Screening colonoscopy COLONOSCOPY SCREENING Endoscopy Routine Screen for colon cancer History of colonic polyps 1 Occurrences starting 01/12/2025 until 01/12/2026 [facility] Work Phone: Comment on above: 1 Occurrences starting 01/12/2025 until 01/12/2026 End: 12-14-2023 Smr prim src wet mount nfct agt ALESSIA (VAGINAL, RESPIRATORY) Microbiology Routine One Time for 1 Occurrences starting 12/14/2023 until 12/14/2023 [facility] Comment on above: One Time for 1 Occurrences starting 07/2024 until 12/14/2023 SURGICAL PATHOLOGY SURGICAL PATH OLOGY Lab Routine Breast disorder Release Upon Ordering for 1 Occurrences starting 05/24/2024 [facility] Work Phone: Comment on above: Release Upon Ordering for 1 Occurrences starting 05/24/2024 SURGICAL PATHOLOGY REQUEST SURGICAL PATHOLOGY REQUEST Surg Path Routine Breast abscess Release Upon Ordering for 1 Occurrences starting 09/26/2024 [facility] Comment on above: Release Upon Ordering for 1 Occurrences starting 09/26/2024 SURGICAL PATHOLOGY REQUEST SURGICAL PATHOLOGY REQUEST Surg Path Routine Breast abscess Release Upon Ordering for 1 Occurrences starting 10/30/2024 [facility] Comment on above: Release Upon Ordering for 1 Occurrences starting 10/30/2024 T VAGINALIS AMPLIFICATION T VAGINALIS AMPLIFICATION Lab Routine Screen for STD (sexually transmitted disease) 06/26/2022 2:18 PM EDT [facility] Work Phone: TISSUE CULTURE [facility] Comment on above: Release Upon Ordering for 1 Occurrences starting 10/30/2024 End: 12-14-2023 TRICHOMONAS SCREEN TRICHOMONAS SCREEN Microbiology Routine One Time for 1 Occurrences starting 12/14/2023 until 12/14/2023 [facility] Comment on above: One Time for 1 Occurrences starting 07/2024 until 12/14/2023 End: 09-14-2024 US BREAST LTD LEFT US BREAST LTD LEFT Radiology Routine Breast abscess Bloody discharge from left nipple 1 Occurrences starting 08/16/2023 until 09/14/2024 [facility] Work Phone: Comment on above: 1 Occurrences starting 08/16/2023 until 09/14/2024 End: 09-14-2024 US BREAST LTD RIGHT US BREAST LTD RIGHT Radiology Routine Breast abscess Bloody discharge from left nipple 1 Occurrences starting 08/16/2023 until 09/14/2024 [facility] Work Phone: Comment on above: 1 Occurrences starting 08/16/2023 until 09/14/2024 End: 05-10-2025 US Guidance for biopsy of Breast - left US BIOPSY BREAST LEFT Radiology Routine Breast abscess Subareolar mass of left breast 1 Occurrences starting 04/10/2024 until 05/10/2025 [facility] Work Phone: Comment on above: 1 Occurrences starting 04/10/2024 until 05/10/2025 End: 05-17-2025 US Guidance for biopsy of Breast - left US BIOPSY BREAST LEFT Radiology Routine Breast disorder 1 Occurrences starting 04/17/2024 until 05/17/2025 [facility] Work Phone: Comment on above: 1 Occurrences starting 04/17/2024 until 05/17/2025 End: 05-17-2025 US Guidance for superficial biopsy of Lymph node US BIOPSY AXILLA LEFT Radiology Routine Breast disorder 1 Occurrences starting 04/17/2024 until 05/17/2025 [facility] Comment on above: 1 Occurrences starting 04/17/2024 until 05/17/2025 End: 12-18-2025 US.doppler Extremity arteries - bilateral for physiologic artery study PVR ANK PRESS RM VAS LAB Vascular Lab Routine Tailor's bunion of both feet Diminished pulses in lower extremity Onychodystrophy 1 Occurrences starting 12/18/2024 until 12/18/2025 [facility] Work Phone: Comment on above: 1 Occurrences starting 12/18/2024 until 12/18/2025 End: 02-10-2026 US.doppler Extremity arteries - bilateral for physiologic artery study at rest and with exercise PVR LEG W/EXC RM VAS LAB Vascular Lab Routine Peripheral arterial disease 1 Occurrences starting 02/10/2025 until 02/10/2026 [facility] Work Phone: Comment on above: 1 Occurrences starting 02/10/2025 until 02/10/2026 End: 12-14-2023 WET PREP, GENITAL WET PREP, GENITAL Microbiology Routine One Time for 1 Occurrences starting 12/14/2023 until 12/14/2023 [facility] Comment on above: One Time for 1 Occurrences starting 07/2024 until 12/14/2023 End: 12-25-2025 XR Foot - bilateral AP and Lateral and oblique XR FOOT GENERAL 3V AP/LAT/OBL BILATERAL Radiology Routine Pain 1 Occurrences starting 11/25/2024 until 12/25/2025 [facility] Work Phone: Comment on above: 1 Occurrences starting 11/25/2024 until 12/25/2025 XR Foot - bilateral AP and Lateral and oblique XR FOOT GENERAL 3V AP/LAT/OBL BILATERAL Radiology Routine Pain 12/18/2024 11:04 AM EST [facility] Work Phone: End: 04-07-2026 XR Lumbar spine 3 Views XR LUMBAR GENERAL 3V AP/LAT/L5-S1 Radiology STAT Lumbar pain 1 Occurrences starting 03/08/2025 until 04/07/2026 [facility] Work Phone: Comment on above: 1 Occurrences starting 03/08/2025 until 04/07/2026 [facility] Immunizations Immunization Date Immunization Notes Care Provider [facility] 02-20-2024 Hemoglobin A1C Belinda bowen RN Work Phone: [facility] 01-10-2024 Hemoglobin A1C Jose G Ward MD Other Phone: [facility] Work Phone: 11-18-2019 tuberculin skin test ; purified protein derivative solution, intradermal Nancy Del Cid APRN.HAND SCRAPER Work Phone: [facility] 11-19-2018 tetanus toxoid, redu caridad diphtheria toxoid, and acellular pertussis vaccine, adsorbed Isatu Nieto MD Work Phone: [facility] 08-19-2015 influenza, seasonal, injectable Isatu Nieto MD Work Phone: [facility] 08-19-2015 tuberculin skin test ; purified protein derivative solution, intradermal Nancy Del Cid APRN.HAND SCRAPER Work Phone: [facility] 08-19-2015 influenza virus vacc ine, unspecified formulation Milly Feliciano APRN.HAND SCRAPER Work Phone: [facility] 11-20-2014 pneumococcal Conjuga te, unspecified formulation Isatu Nieto MD Work Phone: [facility] 11-20-2014 pneumococcal polysaccharide vaccine, 23 valent Isatu Nieto MD Work Phone: [facility] 01-16-2015 tetanus toxoid, redu caridad diphtheria toxoid, and acellular pertussis vaccine, adsorbed Isatu Nieto MD Work Phone: [facility] 08-24-2014 influenza, seasonal, injectable Isatu Nieto MD Work Phone: [facility] Payers Date Payer Category Payer Medicaid (Managed Care) [employer] [id number] 2024 Unknown [employer] [id number] 2024-Present [address] [place] [id number]. [id number] 2023 Self-pay [id number] 2018 Medicaid [employer] [id number] 2018-Present [phone] [address] [place] [address] Medicaid [id number]. [id number] 2016 Unknown [id number] 2013 Medicaid [id number] [id number]. [id number] 2013 Unknown [id number] 1.2.840.521884.1.13.239.2. 7.3.052726.315 1974 Unknown [id number] 2.16.840.1.897996.3.579.2. 651 1974 Unknown [id number] 2.16.840.1.809581.3.579.2. 1974 Unknown [id number] 2.16.840.1.683040.3.579.2. 1974 Unknown [id number] 2.16.840.1.337755.3.579.2. 1974 Unknown [id number] 2.16.840.1.305228.3.579.2. 1974 Unknown [id number] 2.16.840.1.536545.3.579.2. 1974 Unknown [id number] 2.16.840.1.680294.3.579.2. 1974 Unknown [id number] 2.16840.1.008894.3.579.2. 1974 Unknown [id number] 2.16.840.1.451124.3.579.2. 1974 Unknown [id number] 2.16.840.1.053302.3.579.2. 1974 Unknown [id number] 2.16.840.1.213933.3.579.2. 1974 Unknown [id number] 2.16.840.1.598892.3.579.2. 1974 Unknown [id number] 2.16.840.1.568296.3.579.2. 204 1974 Unknown [id number] 2.16.840.1.142737.3.579.2. 1974 Unknown [id number] 2.16.840.1.759386.3.579.2. 1974 Unknown [id number] 2.16.840.1.178395.3.579.2. 1974 Unknown [id number] 2.16.840.1.879610.3.579.2. 204 1974 Unknown [id number] 2.16.840.1.672286.3.579.2. 204 1974 Unknown [id number] 2.16.840.1.480879.3.579.2. 204 1974 Unknown [id number] 2.16.840.1.286367.3.579.2. 1259 1974 Unknown [id number] 2.16.840.1.713899.3.579.2. 125 1974 Unknown [id number] 2.16.840.1.380426.3.579.2. 1258 1974 Unknown [id number] 2.16.840.1.520184.3.579.2. 204 1974 Unknown [id number] 2.840.1.910433.3.579.2. 983 1974 Unknown [id number] 2.16840.1.896327.3.579.2. 73 1974 Unknown [id number] 2.16840.1.973328.3.579.2. 1974 Unknown [id number] 2.16840.1.016574.3.579.2. 73 1974 Unknown [id number] 2.840.1.723353.3.579.2. 73 1974 Unknown [id number] 2.16.840.1.701048.3.579.2. 73 1974 Unknown [id number] 2.16.840.1.806226.3.579.2. 73 1974 Unknown [id number] 2.16840.1.153465.3.579.2. 73 1974 Unknown [id number] 2.16840.1.773157.3.579.2. 73 1974 Unknown [id number] 2.16840.1.191745.3.579.2. 732 1974 Unknown [id number] 2.16.840.1.347699.3.579.2. 732 1974 Unknown [id number] 2.16.840.1.924733.3.579.2. 732 1974 Unknown [id number] 2.16.840.1.271162.3.579.2. 73 1974 Unknown [id number] 2.16.840.1.237186.3.579.2. 732 1974 Unknown [id number] 2.16840.1.227639.3.579.2. 98 1974 Unknown [id number] 2.16840.1.730472.3.579.2. 983 1974 Unknown [id number] 2.16840.1.538403.3.579.2. 98 1974 Unknown [id number] 2.16840.1.402543.3.579.2. 983 1974 Unknown [id number] 2.16840.1.441225.3.579.2. 90 1974 Unknown [id number] 2.16840.1.287852.3.579.2. 90 1974 Unknown [id number] 2.16840.1.615924.3.579.2. 90 1974 Unknown [id number] 2.16840.1.184396.3.579.2. 903 1974 Unknown [id number] 2.16840.1.057604.3.579.2. 90 1974 Unknown [id number] 2.16840.1.431673.3.579.2. 903 1974 Unknown [id number] 2.16840.1.238745.3.579.2. 90 1974 Unknown [id number] 2.16.840.1.406736.3.579.2. 903 1974 Unknown [id number] 2.16.840.1.548305.3.579.2. 903 1974 Unknown [id number] 2.16.840.1.007162.3.579.2. 903 1974 Unknown [id number] 2.16.840.1.294142.3.579.2. 98 1974 Unknown [id number] 2.16.840.1.758829.3.579.2. 983 1974 Unknown [id number] 2.16.840.1.326522.3.579.2. 98 1974 Unknown [id number] 2.16.840.1.787400.3.579.2. 98 1974 Unknown [id number] 2.16.840.1.436864.3.579.2. 98 1974 Unknown [id number] 2.16.840.1.438317.3.579.2. 98 1974 Unknown [id number] 2.16.840.1.849552.3.579.2. 983 1974 Unknown [id number] 2.16.840.1.890823.3.579.2. 983 1974 Unknown [id number] 2.16.840.1.605805.3.579.2. 983 1974 Unknown [id number] 2.16.840.1.407275.3.579.2. 983 1974 Unknown [id number] 2.16.840.1.272359.3.579.2. 98 1974 Unknown [id number] 2.16.840.1.149618.3.579.2. 983 1974 Unknown [id number] 2.16.840.1.908466.3.579.2. 983 1974 Unknown [id number] 2.16.840.1.144305.3.579.2. 983 1974 Unknown [id number] 2.16.840.1.676709.3.579.2. 983 1974 Unknown [id number] 2.16.840.1.569907.3.579.2. 983 1974 Unknown [id number] 2.16.840.1.268426.3.579.2. 983 Unknown [id number] 2.16.840.1.762196.3.579.2. 462 Unknown [id number] 2.16.840.1.523618.3.579.2. 462 Unknown [id number] 2.16.840.1.499634.3.579.2. 462 Unknown [id number] 2.16.840.1.101552.3.579.2. 462 Unknown [id number] 2.16.840.1.726821.3.579.2. 462 Unknown [id number] 2.16.840.1.537689.3.579.2. 462 Unknown [id number] 2.16.840.1.138312.3.579.2. 462 Unknown [id number] 2.16.840.1.493298.3.579.2. 462 Social History Date Type Detail Facility Start: 11-05-1987 End: 03-09-2025 Tobacco smoking status IAIS Smokes tobacco daily [facility] Work Phone: Start: 11-05-1987 History of tobacco use Cigarette Smoker [facility] Work Phone: Start: 06-23-2013 End: 03-09-2025 Cigarettes smoked current (pack per day) - Reported 2 [facility] Work Phone: Start: 06-23-2013 End: 03-09-2025 Tobacco use and exposure Smokeless tobacco non-user [facility] Work Phone: Start: 09-26-2021 End: 01-03-2022 Alcohol intake Current non-drinker of alcohol (finding) [facility] Start: 06-23-2013 History SDOH Alcohol Comment quit , small relapse in 02/15 with of mother. [facility] Start: 1975 Sex Assigned At Not on file [facility] Start: 08-27-2021 End: 09-25-2022 Exposure to SARS-CoV-2 (event) Not sure [facility] Start: 03-21-2022 End: 02-13-2024 Tobacco smoking status IAIS Unknown if ever smoked [facility] Start: 11-27-2019 Cigarettes [employer] [facility] Work Phone: Start: 1975 Sex Assigned At Female N [facility] Start: 04-03-2023 End: 03-09-2025 Tobacco use panel [facility] Work Phone: Adult Depression Screening Assessment 6 [facility] Work Phone: Start: 10-25-2023 End: 03-09-2025 Alcohol intake Ex-drinker (finding) [facility] Start: 11-29-2023 Alcohol intake Defer [facility] Start: 11-29-2023 Alcohol Comment Alcohol: forme r, Caffeine: tea [facility] Has the electric, gas, oil, or water company threatened to shut off services in your home in past 12Mo Yes [facility] How often to you hav e a drink containing alcohol? Never [facility] (I/We) worried whether (my/our) food would run out before (I/we) got money to buy more. Sometimes true [facility] Start: 12-12-2023 Alcohol Comment last use 08-14-23 SAUL [facility] [employer] Start: 02-07-2024 Tobacco smoking status NHIS Heavy tobacco smoker [facility] Start: 02-07-2024 Alcohol intake Alcohol Use Details N [facility] Start: 02-07-2024 History of tobacco use Very heavy cigarette smoker (40+ cigs/day) [facility] Start: 02-07-2024 Tobacco use and exposure (observable entity) Smoking Tobacco Use Details [facility] Start: 02-19-2024 Tobacco use and exposure User of smokeless tobacco [facility] Start: 04-04-2024 End: 12-18-2024 Alcohol intake Current drinker of alcohol (finding) [facility] Start: 09-22-2024 Alcohol Comment 5 months clean [facility] History of tobacco use Passive smoker [facility] NEGATED: Highlighted rowStart: 02-13-2024 Alcohol intake Alcohol Use Details [facility] NEGATED: Highlighted rowStart: 02-13-2024 Health-related Behavior Caffeine Use Details [facility] Medical Equipment Procedure Code Equipment Code Equipment Origin al Text Equipment Identifier Dates Ultrasound Breas t Clip [id number] Start: 05-24-2024 Comment on above: Description: Coil cl ip in the breast lesion 9:00 2cmfn Ultrasound Breas t Clip [id number] Start: 05-24-2024 Comment on above: Description: Hydroma rk butterfly clip Start: 07-20-2024 Goals Date Patient Goal Desired Activity /State Personal health goal Functional Status Date Assessment Result Facility 11-20-2014 Are you deaf, or do you have serious difficulty hearing No 11/20/2014 9:12 AM Michelle Kraft Ma No [facility] 11-20-2014 Are you blind, or do you have serious difficulty seeing, even when wearing glasses No 11/20/2014 9:12 AM Michelle Kraft Ma No [facility] 11-20-2014 Do you have serious difficulty walking or climbing stairs No 11/20/2014 9:12 AM Michelle Kraft Ma [facility] 11-20-2014 Do you have difficul ty dressing or bathing No 11/20/2014 9:12 AM Michelle Kraft Ma [facility] 11-20-2014 Because of a physica l, mental, or emotional condition, do you have difficulty doing errands alone such as visiting a physician's office or shopping No 11/20/2014 9:12 AM Michelle Kraft Ma [facility] Mental Status Date Assessment Result Facility 03-21-2022 Cognitive function Level Of Cons ciousness Awake;Alert;Appropriate;Fol lows Commands;Responds to vocal stimuli [facility] Work Phone: 11-20-2014 Because of a physica l, mental, or emotional condition, do you have serious difficulty concentrating, remembering, or making decisions No 11/20/2014 9:12 AM ROSARIO Michelle Rucker Ma No [facility] Clinical Notes 09-26-2021 to 04-15-2025 Telephone Encounter - Jackie Spencer - 04/15/2025 3:33 PM EDTTelephone Encounter - Jackie Spencer - 04/15/2025 3:33 PM EDTTelephone Encounter - Miller Lee RN - 04/01/2025 12:43 PM EDT Note Date & Type Note Facility 04-15-2025 Telephone encounter Note Spoke with Vinod about colonoscopy instructions & also changed date to 04/29. [facility] 04-15-2025 Miscellaneous Notes Spoke with Vinod about colonoscopy instructions & also changed date to 04/29. documented in this encounter [facility] 04-01-2025 Telephone encounter Note Patient calls to check on status of request below. Notified prescription was sent to [facility]. Miller Lee RN [facility] 04-01-2025 Miscellaneous Notes Patient calls to check on status of request below. Notified prescription was sent to [facility]. Miller Lee RN Rx as requested Regards, Isatu Nieto MD Pt calls to request a refill for hydroxyzine 100 mg bid. Did not see this on pt's current med list. On med hx there is an entry for hydroxyzine 25 mg q 6 hrs dated 04/04/23. Pt reports a therapist she went to prescribed this for her but pt is asking if Dr. Nieto will take over. Therapist is Brando Cid in [place]. Please review and advise. Melita Klein LPN documented in this encounter [facility] 03-31-2025 Telephone encounter Note Rx as requested Regards, Isatu Nieto MD [facility] 03-31-2025 Telephone encounter Note Pt calls to request a refill for hydroxyzine 100 mg bid. Did not see this on pt's current med list. On med hx there is an entry for hydroxyzine 25 mg q 6 hrs dated 04/04/23. Pt reports a therapist she went to prescribed this for her but pt is asking if Dr. Nieto will take over. Therapist is Brando Cid in [place]. Please review and advise. Melita Klein LPN [facility] 03-11-2025 Telephone encounter Note Patient given results and verbalized understanding of instructions given. Rachael Rice MA [facility] 03-11-2025 Telephone encounter Note ----- Message from Tatiana Villalobos APRN.HAND SCRAPER sent at 03/09/2025 4:31 PM EDT ----- Left message for patient to call back. Xray showed degenerative changes no fracture. [facility] 03-11-2025 Miscellaneous Notes Patient given results and verbalized understanding of instructions given. Rachael Rice MA ----- Message from Tatiana Villalobos APRN.HAND SCRAPER sent at 03/09/2025 4:31 PM EDT ----- Left message for patient to call back. Xray showed degenerative changes no fracture. documented in this encounter [facility] 03-09-2025 History of Present illness Narrative Radiology Service Progress Note PATIENT NAME: Vinod Ann DATE OF SERVICE: March 09, 2025 TIME: 3:44 PM PATIENT IDENTITY VERIFICATION COMPLETED USING TWO (2) IDENTIFIERS: Name and Date of confirmed by patient verbally. FALL SCREENING: Has the patient had 2 falls in the last year or 1 fall with injury or currently using an Ambulatory Assistive Device (Walker, Cane, Wheelchair, Crutches, etc.)? No PATIENT GENDER DATA: Assigned female at . status: : No status: NO. PATIENT RELEVANT IMPLANT DATA REVIEWED: Not Applicable PATIENT PRESENTS WITH AN IMPLANTABLE OR ATTACHED PHYSICAL THERAPY ATTENDANT: No RADIOLOGY DEPARTMENT: General X-ray: Exam(s) Completed: Spine X-Ray(s): Lumbar AP / LAT / L5-S1 PERIPHERAL IV DATA: Not applicable SIGNED BY: RT Arlene(R) March 09, 2025 3:44 PM documented in this encounter [facility] 03-09-2025 Note HNO ID: [id number] Author: RACHAEL ALVAREZ RT(Donny) Service: ? Author Type: Technologist Type: Progress Notes Filed: 03/09/2025 15:45 Note Text: Radiology Service Progress Note PATIENT NAME: Vinod Ann DATE OF SERVICE: March 09, 2025 TIME: 3:44 PM PATIENT IDENTITY VERIFICATION COMPLETED USING TWO (2) IDENTIFIERS: Name and Date of confirmed by patient verbally. FALL SCREENING: Has the patient had 2 falls in the last year or 1 fall with injury or currently using an Ambulatory Assistive Device (Walker, Cane, Wheelchair, Crutches, etc.)? No PATIENT GENDER DATA: Assigned female at . status: : No status: NO. PATIENT RELEVANT IMPLANT DATA REVIEWED: Not Applicable PATIENT PRESENTS WITH AN IMPLANTABLE OR ATTACHED PHYSICAL THERAPY ATTENDANT: No RADIOLOGY DEPARTMENT: General X-ray: Exam(s) Completed: Spine X-Ray(s): Lumbar AP / LAT / L5-S1 PERIPHERAL IV DATA: Not applicable SIGNED BY: RT Arlene(R) March 09, 2025 3:44 PM [facility] [facility] 03-09-2025 Instructions Valerie Hernandez APRN.[employer] - 03/09/2025 2:[address] Lung Screen Results The CT scan that you will have done will show if you have any nodules (small spots) in your lungs that are suspicious for cancer. Around 90% of the patients who have this scan done are found to have at least one nodule. Most nodules are benign (not cancer) and of no harm to you at all. A specialist will make a scientific evaluation about whether or not a nodule is worrisome based on its size and shape. The radiologist who will read your scan will put it into one of four categories: LUNG-RADS Category Description Overall Probability of Malignancy Recommended Follow-Up 1 Negative No nodules and definitely benign (non-cancerous nodules) Essentially 0. 1 Year - Follow-up Low dose CT 2 Benign Appearance or Behavior Nodules with a very low likelihood of becoming cancer due to size or lack of growth Less than 1% 1 Year - Follow-up Low dose CT 3 Probably Benign Probably benign finding, short term follow-up recommended 1 to 2% 6 Months - Follow-up Low dose CT 4 Suspicious Findings for which additional diagnostic testing and/or biopsy is recommended Will be calculated based on nodule characteristics. Dependent on what is seen on the exam. (3 month follow-up CT, PET-CT, or biopsy) 0 Incomplete Findings suggestive of an inflammatory or infectious process AND/OR part of the lung cannot be evaluated Additional lung cancer screening CT imaging needed AND/OR comparison with prior chest CT imaging At times, we may see something outside of the lungs on the scan that could be a health concern. Below are some of the most common findings: S Clinically Significant or Potentially Clinically Significant Findings (non lung cancer) Referral or additional imaging/labs depending on result. Approximately 10% of people receive this result. Coronary Artery Calcifications (Moderate or Severe) - Referral to cardiology for further work-up and recommendations. Thyroid Nodule - TSH level and Thyroid Ultrasound dependent on size, referral to endocrinology. Adrenal Nodule - blood work and referral to endocrinology. Others Lung Cancer Screening hotline: [phone] Lung Cancer Screening [phone] Billing Questions: or [email or web address] Specialist Providers: (Arielle Lala PA-C; Makayla Willis HAND SCRAPER; Hayley Johnson CNP, Hattie Diaz HAND SCRAPER; Lamar Franklin CNP; Lima Emery PA-C; Valerie Hernandez HAND SCRAPER; Elias Dupont HAND SCRAPER; Liss Sommer HAND SCRAPER; Winsome Villavicencio HAND SCRAPER; Kimberly Navas PA-C; Joie Samaniego PA-C; Erika Troy HAND SCRAPER; Vicki White HAND SCRAPER; Destiny Aleman HAND SCRAPER): [phone] documented in this encounter [facility] 03-09-2025 Note HNO ID: [id number] Author: VALERIE HERNANDEZ APRN.CNP Service: ? Author Type: Nurse Practitioner Type: Progress Notes Filed: 03/09/2025 15:17 Note Text: LUNG SCREENING VISIT PRIMARY CARE PHYSICIAN: Isatu Nieto MD PULMONARY PROVIDER: none Results will be communicated via letter or electronic record if applicable. Visit Delivery: In Person Patient Visit Type: New to Screening Current or Ex-smoker? [Current Exam Type: baseline LDCT Number of Pack Years: 76 Current smoker (=0) REQUESTER: The referring provider advised the patient to have screening. HISTORY OF PRESENT ILLNESS: Vinod D Ann is a 50 year old Active smoker who presents for lung screening. Last COVID 2 years ago. 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 On pepcid and the ENT said it looked better. Respiratory symptoms include: SOB: Yes with stairs, and some with bathing and dressing Chest tightness: No Coughing: Yes: With mucus Clear Hemoptysis: No Wheezing: Yes Fever/Chills: No Recent Respiratory Infection: No Unintentional weight loss: No Last 6 Encounter Wt Readings: Date: Wt: 03/09/2025 103.9 kg (229 lb) 03/08/2025 104.2 kg (229 lb 11.5 oz) 02/16/2025 103.4 kg (228 lb) 02/12/2025 102.2 kg (225 lb 6.4 oz) 01/12/2025 105 kg (231 lb 6.4 oz) 01/01/2025 101.6 kg (224 lb) ECOG PERFORMANCE STATUS: 0- Fully active, able to carry on all pre-disease performance w/o restriction. Modified Medical Research [place] Dyspnea Scale (MMRC) I only get breathless with strenous exercise 0 PAST MEDICAL HISTORY Diagnosis Date Anxiety state, unspecified 11/20/2014 Arthritis Bleeding stomach ulcer Breast infection in female bilateral reoccurant Delayed emergence from general anesthesia GERD (gastroesophageal reflux disease) Hiatal hernia 02/2015 History of drug abuse ([facility]) Hyperlipidemia Infected sebaceous cyst 02/12/2025 Night terrors Obesity (BMI 30-39.9) 11/20/2014 Other and unspecified hyperlipidemia 11/20/2014 Peripheral arterial disease Personal history of DVT (deep vein thrombosis) 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 , did have small relapse 02/15 with of mother Severe episode of recurrent major depressive disorder, without psychotic features ([facility]) Kendra RITTER (stress urinary incontinence, female) Suicidal ideation PAST SURGICAL HISTORY Procedure Laterality Date ABDOMINAL SURGERY HX BREAST SURGERY HX BX OF BREAST; INCISIONAL Left 08/29/2019 [facility]- Benign COLONOSCOPY 09/22/2022 COLONOSCOPY FLX DX W/COLLJ SPEC WHEN PFRMD 12/01/2019 Colonoscopy PAST SURGICAL HISTORY OF 03/2010 gall bladder removed PAST SURGICAL HISTORY OF Left wrist surgery when she was 15 years old PAST SURGICAL HISTORY OF 2013 tubal ligation PAST SURGICAL HISTORY OF 02/2022 bilateral cyst removed, [place] FAMILY HISTORY Problem Relation Age of Onset Lung Cancer Mother at 63 Osteoporosis Mother Alcohol/Drug Mother alcohol Hypertension Father Alcohol/Drug Father alcohol Aneurysm Father abdominal Prostate Cancer Father Alcohol/Drug Sister drugs other (Aids) Sister drug user Aneurysm Sister head Breast Cancer Paternal Grandmother late 50's or 60's Alcohol/Drug Niece Ovarian cancer Niece diagnosed young methylPREDNISolone (MEDROL, CHANTEL,) 4 mg Dose-Pack Follow dosing instructions, take with food. omeprazole (PRILOSEC) 40 mg capsule Take 1 capsule by mouth once daily. amLODIPine (NORVASC) 5 mg tablet Take 1 tablet by mouth once daily. nystatin (MYCOSTATIN) powder Apply 1 application to affected area three times a day. DULoxetine (CYMBALTA) 20 mg capsule Take 1 capsule by mouth two times a day. nicotine (NICODERM) 21 mg/24 hr Apply 1 patch as directed every 24 hours. [START ON 03/14/2025] nicotine (NICODERM) 14 mg/24 hr Apply 1 patch as directed every 24 hours. Patient should start on March 14, 2025. oxybutynin ER (DITROPAN XL) 15 mg 24 hr Extended Rel Tab Take 1 tablet by mouth once daily. acetaminophen (TYLENOL EXTRA STRENGTH) 500 mg tablet Take 1,000 mg by mouth every 8 hours as needed for pain. aspirin 81 mg cap Take 81 mg by mouth once daily. prazosin (MINIPRESS) 2 mg cap Take 1 capsule by mouth daily at bedtime. mirtazapine (REMERON) 45 mg tablet Take 1 tablet by mouth daily at bedtime. rosuvastatin (CRESTOR) 10 mg tablet Take 1 tablet by mouth once daily. cloNIDine HCl (CATAPRES) 0.1 mg tablet Take 1 tablet by mouth once daily. ARIPiprazole (ABILIFY) 30 mg tablet Take 1 tablet by mouth once daily. rivaroxaban (XARELTO) 20 mg tablet Take 1 tablet by mouth once daily. ergocalciferol 50,000 unit capsule (VITAMIN D2, DRISDOL) Take 1 capsule by mouth one time a week. cilostazol (PLETAL) 100 mg tablet Take 1 tablet by mouth two times a day. folic acid 1 mg tablet Take 1 tablet by mouth once daily. fluticasone (FLONASE) 50 mcg/actuation nasal spray Use 1 [place] in the nose as needed. (more content not included)... [facility] 03-09-2025 History of Present illness Narrative Images from the original note were not included. LUNG SCREENING VISIT PRIMARY CARE PHYSICIAN: Isatu Nieto MD PULMONARY PROVIDER: none Results will be communicated via letter or electronic record if applicable. Visit Delivery: In Person Patient Visit Type: New to Screening Current or Ex-smoker? [Current Exam Type: baseline LDCT Number of Pack Years: 76 Current smoker (=0) REQUESTER: The referring provider advised the patient to have screening. HISTORY OF PRESENT ILLNESS: Vinod Ann is a 50 year old Active smoker who presents for lung screening. Last COVID 2 years ago. 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 On pepcid and the ENT said it looked better. Respiratory symptoms include: SOB: Yes with stairs, and some with bathing and dressing Chest tightness: No Coughing: Yes: With mucus Clear Hemoptysis: No Wheezing: Yes Fever/Chills: No Recent Respiratory Infection: No Unintentional weight loss: No Last 6 Encounter Wt Readings: Date: Wt: 03/09/2025 103.9 kg (229 lb) 03/08/2025 104.2 kg (229 lb 11.5 oz) 02/16/2025 103.4 kg (228 lb) 02/12/2025 102.2 kg (225 lb 6.4 oz) 01/12/2025 105 kg (231 lb 6.4 oz) 01/01/2025 101.6 kg (224 lb) ECOG PERFORMANCE STATUS: 0- Fully active, able to carry on all pre-disease performance w/o restriction. Modified Medical Research [place] Dyspnea Scale (MMRC) I only get breathless with strenous exercise 0 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 , did have small relapse 02/15 with of mother Severe episode of recurrent major depressive disorder, without psychotic features (HCC) Kendra Padilla RIYA (stress urinary incontinence, female) Suicidal ideation PAST SURGICAL HISTORY Procedure Laterality Date ABDOMINAL SURGERY HX BREAST SURGERY HX BX OF BREAST; INCISIONAL Left 08/29/2019 [facility]- Benign COLONOSCOPY 09/22/2022 COLONOSCOPY FLX DX W/COLLJ SPEC WHEN PFRMD 12/01/2019 Colonoscopy PAST SURGICAL HISTORY OF 03/2010 gall bladder removed PAST SURGICAL HISTORY OF Left wrist surgery when she was 15 years old PAST SURGICAL HISTORY OF 2013 tubal ligation PAST SURGICAL HISTORY OF 02/2022 bilateral cyst removed, [place] FAMILY HISTORY Problem Relation Age of Onset Lung Cancer Mother at 63 Osteoporosis Mother Alcohol/Drug Mother alcohol Hypertension Father Alcohol/Drug Father alcohol Aneurysm Father abdominal Prostate Cancer Father Alcohol/Drug Sister drugs other (Aids) Sister drug user Aneurysm Sister head Breast Cancer Paternal Grandmother late 50's or 60's Alcohol/Drug Niece Ovarian cancer Niece diagnosed young methylPREDNISolone (MEDROL, CHANTEL,) 4 mg Dose-Pack Follow dosing instructions, take with food. omeprazole (PRILOSEC) 40 mg capsule Take 1 capsule by mouth once daily. amLODIPine (NORVASC) 5 mg tablet Take 1 tablet by mouth once daily. nystatin (MYCOSTATIN) powder Apply 1 application to affected area three times a day. DULoxetine (CYMBALTA) 20 mg capsule Take 1 capsule by mouth two times a day. nicotine (NICODERM) 21 mg/24 hr Apply 1 patch as directed every 24 hours. [START ON 03/14/2025] nicotine (NICODERM) 14 mg/24 hr Apply 1 patch as directed every 24 hours. Patient should start on March 14, 2025. oxybutynin ER (DITROPAN XL) 15 mg 24 hr Extended Rel Tab Take 1 tablet by mouth once daily. acetaminophen (TYLENOL EXTRA STRENGTH) 500 mg tablet Take 1,000 mg by mouth every 8 hours as needed for pain. aspirin 81 mg cap Take 81 mg by mouth once daily. prazosin (MINIPRESS) 2 mg cap Take 1 capsule by mouth daily at bedtime. mirtazapine (REMERON) 45 mg tablet Take 1 tablet by mouth daily at bedtime. rosuvastatin (CRESTOR) 10 mg tablet Take 1 tablet by mouth once daily. cloNIDine HCl (CATAPRES) 0.1 mg tablet Take 1 tablet by mouth once daily. ARIPiprazole (ABILIFY) 30 mg tablet Take 1 tablet by mouth once daily. rivaroxaban (XARELTO) 20 mg tablet Take 1 tablet by mouth once daily. ergocalciferol 50,000 unit capsule (VITAMIN D2, DRISDOL) Take 1 capsule by mouth one time a week. cilostazol (PLETAL) 100 mg tablet Take 1 tablet by mouth two times a day. folic acid 1 mg tablet Take 1 tablet by mouth once daily. fluticasone (FLONASE) 50 mcg/actuation nasal spray Use 1 [place] in the nose as needed. albuterol HFA (PROVENTIL HFA, VENTOLIN HFA) 90 mcg/actuation inhaler Inhale 2 Puffs as instructed every 6 hours as needed. ALLERGIES Allergen Reactions Cephalexin Hives, Diarrhea Fenofibrate Other: See Comments Hives with GI upset (emesis) Zoloft [Sertraline * Hives, Diarrhea Zyprexa [Olanzapine] Mental Status Change, Hives Clindamycin Hives States has take since with no issue 08/06/20. Elba Broussard MA The medications and allergies were reviewed and reconciled for this patient and deemed current. Lung Cancer Risk Factors: 1.Tobacco Use: Start Age 12, Quit Age: N/A, Average packs per day 2, Pack Years 75 2. Passive Smoke Exposure: Yes, as a Child and as an Adult 3. Personal hx of malignancy: No, Type of Cancer: 4. 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 Race: White 6. Education: Less than High School 7. BMI:Body mass index is 36.96 kg/m . Patient-entered Height: 5'6 Patient-entered Weight: 229 pounds 8. COPD: Yes 9. Pneumonia in the past 5 years: No 10. Is there a history of lung cancer in a first degree relative? Yes 11. Is there a history of lung cancer in a non-first degree relative? No 12. Is there a history of any other cancer in a first degree relative? No Health Maintenance Immunization History Administered Date(s) Administered influenza (IIV3) vaccine, age 6 mo - 64 yr, trivalent (AFLURIA, FLULAVAL, FLUVIRIN, FLUZONE) 08/24/2014 08/19/2015 pneumococcal conjugate (PCV) vaccine, unspecified formulation 11/20/2014 pneumococcal polysaccharide (PPV23) vaccine, 23 valent (PNEUMOVAX 23) 11/20/2014 tetanus diphtheria pertussis (Tdap) vaccine, age 7+ yr (ADACEL, BOOSTRIX) 11/20/2014 11/19/2018 tuberculin skin test (TST-PPD), purified protein derivative, intradermal 08/19/2015 11/18/2019 Colonoscopy: 09/22/2022 Mammogram: 05/29/2024 DATA REVIEW I have directly visualized the testing documented: Prior Imaging: Last CT/CTA Chest/Lungs CT CHEST W IVCON Exam End: 12/15/2023 12:34 PM (Final result) Narrative: EXAMINATION: CT OF THE CHEST WITH CONTRAST 12/15/2023 12:27 pm TECHNIQUE: CT of the chest was performed with the administration of intravenous contrast. Multiplanar reformatted images are provided for review. Automated exposure control, iterative reconstruction, and/or weight based adjustment of the mA/kV was utilized to reduce the radiation dose to as low as reasonably achievable. COMPARISON: None. HISTORY: ORDERING SYSTEM PROVIDED HISTORY: Rule out mural thrombus of the aorta TECHNOLOGIST PROVIDED HISTORY: Reason for exam:->Rule out mural thrombus of the aorta Reason for exam:->Patient has arterial emboli to both legs What reading provider will be dictating this exam?->CRC FINDINGS: Mediastinum: Thyroid is homogeneous in attenuation. No bulky mediastinal adenopathy. Central airways are patent. Esophagus with normal course and caliber. Cardiac size within normal limits without pericardial effusion. Thoracic aorta is patent and nonaneurysmal with only minimal calcifications at the left subclavian takeoff and at the distal descending thoracic aorta where there is minimal intramural thrombus at the thoracoabdominal aortic junction otherwise unremarkable without evidence for ulceration or periaortic hematoma Lungs/pleura: Lungs are clear without focal opacification or consolidation. Mild heterogeneity greatest at the lung apices of likely respiratory bronchiolitis configuration without suspicious dominant nodule or mass. No pleural effusion or pleural process. Upper Abdomen: Visualized portions of the upper abdomen unremarkable. Soft Tissues/Bones: No acute osseous or soft tissue findings. No aggressive osseous lesion. Impression: 1. Minimal intramural thrombus at the thoracoabdominal aortic junction without evidence for ulceration or periaortic hematoma. 2. Minimal calcifications at the left subclavian takeoff and at the distal descending thoracic aorta. 3. No acute pulmonary process. Mild heterogeneity suggesting respiratory bronchiolitis background chronic findings. Last CT Chest - Impression Only CT CHEST W IVCON Exam End: 12/15/2023 12:34 PM (Final result) Impression: 1. Minimal intramural thrombus at the thoracoabdominal aortic junction without evidence for ulceration or periaortic hematoma. 2. Minimal calcifications at the left subclavian takeoff and at the distal descending thoracic aorta. 3. No acute pulmonary process. Mild heterogeneity suggesting respiratory bronchiolitis background chronic findings. Last XR Chest - Impression Only XR CHEST 1V FRONTAL PORT Exam End: 04/23/2024 4:05 PM (Final result) Impression: IMPRESSION: No acute cardiopulmonary disease ... Pulmonary Function Testing: No textual results found for the specified procedure(s). PHYSICAL EXAM: BP 126/82 Pulse 116 Resp 17 Wt 103.9 kg (229 lb) LMP 08/06/2020 SpO2 96% BMI 36.96 kg/m Deferred ASSESSMENT and RECOMMENDATIONS: 1. Screening for lung cancer: Six year risk for lung cancer: 3.62% [email or web address] I have determined that the patient is eligible for a low dose CT based on age, absence of signs or symptoms of lung cancer, and total pack years: Yes. The patient and I engaged in shared decision making, including the use of one or more decision aids, to include benefits, harms, follow-up diagnostic testing, over-diagnosis, false positive rate, and total radiation exposure. The patient understands and feels comfortable with it: Yes. The patient was counseled on the importance of adherence to annual LDCT lung cancer screening, impact of comorbidities and ability or willingness to undergo diagnosis and treatment. The patient understands and feels comfortable with it:Yes. 2. Nicotine dependence: The patient was counseled on the importance of smoking cessation if current smoker and, if appropriate, offered additional tobacco cessation counseling services - Smoking Cessation Counseling. SMOKING CESSATION COUNSELING Smoking cessation methods including Behavior Modification were discussed with the patient and assistance offered. The medical conditions adversely affected by cigarette use include:COPD, Emphysema, and Lung Cancer. The patient is currently not ready to quit. I personally spent 3 minutes in counseling. The time spent in smoking cessation counseling is exclusive of any other counseling during this visit. Valerie Hernandez APRN.CNP NPI #: [id number] 2:07 PM . documented in this encounter [facility] 03-08-2025 Note HNO ID: [id number] Author: LISET VALDEZ PA Service: ? Author Type: Physician General Operations Agent Type: Progress Notes Filed: 03/08/2025 11:31 Note Text: [facility] Subjective Vinod Ann is a 50 year old female. Patient presents with: Same Day Appointment: left lower back pain, twisted at work yesterday and had a shooting pain. Patient sees pain management at [facility] HPI 50-year-old female presents for left-sided low back pain. Patient states she has had low back pain for several months. She states that she has seen pain management and she thinks she might of had an MRI, but not sure. She states that they recommended physical therapy, but she has not started it yet. Reports yesterday she was reaching for something and felt a pull in her left side low back. She states that she is having left-sided low back pain and left buttocks and left leg pain worsened since yesterday. She has taken Tylenol with minimal improvement. She has not prescribed anything by her pain doctor. She denies any bowel or bladder dysfunction. No urinary symptoms. No fever. No history of cancer. 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 , did have small relapse 02/15 with of mother Severe episode of recurrent major depressive disorder, without psychotic features (HCC) Kendra Padilla RIYA (stress urinary incontinence, female) Suicidal ideation PAST SURGICAL HISTORY Procedure Laterality Date ABDOMINAL SURGERY HX BREAST SURGERY HX BX OF BREAST; INCISIONAL Left 08/29/2019 [facility]- Benign COLONOSCOPY 09/22/2022 COLONOSCOPY FLX DX W/COLLJ SPEC WHEN PFRMD 12/01/2019 Colonoscopy PAST SURGICAL HISTORY OF 03/2010 gall bladder removed PAST SURGICAL HISTORY OF Left wrist surgery when she was 15 years old PAST SURGICAL HISTORY OF 2013 tubal ligation PAST SURGICAL HISTORY OF 02/2022 bilateral cyst removed, [place] ALLERGIES Cephalexin, Fenofibrate, Zoloft [Sertraline Hcl], Zyprexa [Olanzapine], and Clindamycin MEDICATIONS omeprazole (PRILOSEC) 40 mg capsule Take 1 capsule by mouth once daily. amLODIPine (NORVASC) 5 mg tablet Take 1 tablet by mouth once daily. nystatin (MYCOSTATIN) powder Apply 1 application to affected area three times a day. DULoxetine (CYMBALTA) 20 mg capsule Take 1 capsule by mouth two times a day. nicotine (NICODERM) 21 mg/24 hr Apply 1 patch as directed every 24 hours. [START ON 03/14/2025] nicotine (NICODERM) 14 mg/24 hr Apply 1 patch as directed every 24 hours. Patient should start on March 14, 2025. oxybutynin ER (DITROPAN XL) 15 mg 24 hr Extended Rel Tab Take 1 tablet by mouth once daily. acetaminophen (TYLENOL EXTRA STRENGTH) 500 mg tablet Take 1,000 mg by mouth every 8 hours as needed for pain. aspirin 81 mg cap Take 81 mg by mouth once daily. prazosin (MINIPRESS) 2 mg cap Take 1 capsule by mouth daily at bedtime. mirtazapine (REMERON) 45 mg tablet Take 1 tablet by mouth daily at bedtime. rosuvastatin (CRESTOR) 10 mg tablet Take 1 tablet by mouth once daily. cloNIDine HCl (CATAPRES) 0.1 mg tablet Take 1 tablet by mouth once daily. ARIPiprazole (ABILIFY) 30 mg tablet Take 1 tablet by mouth once daily. rivaroxaban (XARELTO) 20 mg tablet Take 1 tablet by mouth once daily. ergocalciferol 50,000 unit capsule (VITAMIN D2, DRISDOL) Take 1 capsule by mouth one time a week. cilostazol (PLETAL) 100 mg tablet Take 1 tablet by mouth two times a day. folic acid 1 mg tablet Take 1 tablet by mouth once daily. fluticasone (FLONASE) 50 mcg/actuation nasal spray Use 1 [place] in the nose as needed. albuterol HFA (PROVENTIL HFA, VENTOLIN HFA) 90 mcg/actuation inhaler Inhale 2 Puffs as instructed every 6 hours as needed. methylPREDNISolone (MEDROL, CHANTEL,) 4 mg Dose-Pack Follow dosing instructions, take with food. FAMILY HISTORY Problem Relation Age of Onset Lung Cancer Mother at 63 Osteoporosis Mother Alcohol/Drug Mother alcohol Hypertension Father Alcohol/Drug Father alcohol Aneurysm Father abdominal Prostate Cancer Father Alcohol/Drug Sister drugs other (Aids) Sister drug user Aneurysm Sister head Breast Cancer Paternal Grandmother late 50's or 60's Alcohol/Drug Niece Ovarian cancer Niece diagnosed young Social History Tobacco Use Smoking status: Every Day Current packs/day: 1.00 Average packs/day: 2.0 packs/day for 37.3 years (73.8 ttl pk-yrs) Type (more content not included)... [facility] 03-08-2025 History of Present illness Narrative [facility] Subjective Vinod Ann is a 50 year old female. Patient presents with: Same Day Appointment: left lower back pain, twisted at work yesterday and had a shooting pain. Patient sees pain management at [facility] HPI 50-year-old female presents for left-sided low back pain. Patient states she has had low back pain for several months. She states that she has seen pain management and she thinks she might of had an MRI, but not sure. She states that they recommended physical therapy, but she has not started it yet. Reports yesterday she was reaching for something and felt a pull in her left side low back. She states that she is having left-sided low back pain and left buttocks and left leg pain worsened since yesterday. She has taken Tylenol with minimal improvement. She has not prescribed anything by her pain doctor. She denies any bowel or bladder dysfunction. No urinary symptoms. No fever. No history of cancer. 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 , did have small relapse 02/15 with of mother Severe episode of recurrent major depressive disorder, without psychotic features ([facility]) Kendra Padilla RIYA (stress urinary incontinence, female) Suicidal ideation PAST SURGICAL HISTORY Procedure Laterality Date ABDOMINAL SURGERY HX BREAST SURGERY HX BX OF BREAST; INCISIONAL Left 08/29/2019 [place] [facility]- Benign COLONOSCOPY 09/22/2022 COLONOSCOPY FLX DX W/COLLJ SPEC WHEN PFRMD 12/01/2019 Colonoscopy PAST SURGICAL HISTORY OF 03/2010 gall bladder removed PAST SURGICAL HISTORY OF Left wrist surgery when she was 15 years old PAST SURGICAL HISTORY OF 2014 tubal ligation PAST SURGICAL HISTORY OF 02/2022 bilateral cyst removed, [place] ALLERGIES Cephalexin, Fenofibrate, Zoloft [Sertraline Hcl], Zyprexa [Olanzapine], and Clindamycin MEDICATIONS omeprazole (PRILOSEC) 40 mg capsule Take 1 capsule by mouth once daily. amLODIPine (NORVASC) 5 mg tablet Take 1 tablet by mouth once daily. nystatin (MYCOSTATIN) powder Apply 1 application to affected area three times a day. DULoxetine (CYMBALTA) 20 mg capsule Take 1 capsule by mouth two times a day. nicotine (NICODERM) 21 mg/24 hr Apply 1 patch as directed every 24 hours. [START ON 03/14/2025] nicotine (NICODERM) 14 mg/24 hr Apply 1 patch as directed every 24 hours. Patient should start on March 14, 2025. oxybutynin ER (DITROPAN XL) 15 mg 24 hr Extended Rel Tab Take 1 tablet by mouth once daily. acetaminophen (TYLENOL EXTRA STRENGTH) 500 mg tablet Take 1,000 mg by mouth every 8 hours as needed for pain. aspirin 81 mg cap Take 81 mg by mouth once daily. prazosin (MINIPRESS) 2 mg cap Take 1 capsule by mouth daily at bedtime. mirtazapine (REMERON) 45 mg tablet Take 1 tablet by mouth daily at bedtime. rosuvastatin (CRESTOR) 10 mg tablet Take 1 tablet by mouth once daily. cloNIDine HCl (CATAPRES) 0.1 mg tablet Take 1 tablet by mouth once daily. ARIPiprazole (ABILIFY) 30 mg tablet Take 1 tablet by mouth once daily. rivaroxaban (XARELTO) 20 mg tablet Take 1 tablet by mouth once daily. ergocalciferol 50,000 unit capsule (VITAMIN D2, DRISDOL) Take 1 capsule by mouth one time a week. cilostazol (PLETAL) 100 mg tablet Take 1 tablet by mouth two times a day. folic acid 1 mg tablet Take 1 tablet by mouth once daily. fluticasone (FLONASE) 50 mcg/actuation nasal spray Use 1 [place] in the nose as needed. albuterol HFA (PROVENTIL HFA, VENTOLIN HFA) 90 mcg/actuation inhaler Inhale 2 Puffs as instructed every 6 hours as needed. methylPREDNISolone (MEDROL, CHANTEL,) 4 mg Dose-Pack Follow dosing instructions, take with food. FAMILY HISTORY Problem Relation Age of Onset Lung Cancer Mother at 63 Osteoporosis Mother Alcohol/Drug Mother alcohol Hypertension Father Alcohol/Drug Father alcohol Aneurysm Father abdominal Prostate Cancer Father Alcohol/Drug Sister drugs other (Aids) Sister drug user Aneurysm Sister head Breast Cancer Paternal Grandmother late 50's or 60's Alcohol/Drug Niece Ovarian cancer Niece diagnosed young Social History Tobacco Use Smoking status: Every Day Current packs/day: 1.00 Average packs/day: 2.0 packs/day for 37.3 years (73.8 ttl pk-yrs) Types: Cigarettes Start date: 1987 Smokeless tobacco: Never Vaping Use Vaping status: Former Substances: Nicotine, Flavoring Devices: Disposable Substance Use Topics Alcohol use: Not Currently Comment: quit , small relapse in 02/15 with of mother. Drug use: Not Currently Types: Crystal Meth Comment: Sober since 04/19/2024 Review of Systems Constitutional: Negative for chills and fever. Musculoskeletal: Positive for back pain. Neurological: Negative for numbness. Objective BP 142/82 (BP Site: Left Arm, BP Position: Sitting, BP Cuff Size: Large Adult) Pulse (!) 124 Temp 37.6 C (99.6 F) Resp 16 Ht 167.6 cm (5' 6) Wt 104.2 kg (229 lb 11.5 oz) LMP 08/06/2020 SpO2 97% BMI 37.08 kg/m Physical Exam Vitals and nursing note reviewed. Constitutional: General: She is not in acute distress. Appearance: Normal appearance. She is not toxic-appearing. Cardiovascular: Rate and Rhythm: Normal rate and regular rhythm. Pulmonary: Effort: Pulmonary effort is normal. Breath sounds: Normal breath sounds. Musculoskeletal: Lumbar back: Tenderness and bony tenderness present. Decreased range of motion. Negative right straight leg raise test and negative left straight leg raise test. Comments: Decreased ROM lumbar spine tenderness and spasm noted over left lumbar paraspinal muscles. She does have some mild midline tenderness over L2-L3 area. Tenderness over left buttocks. Negative seated straight leg raise. Normal sensation lower extremities. Able to ambulate. Skin: General: Skin is warm and dry. Neurological: Mental Status: She is alert. {ASSESSMENT/PLAN: 1. Left sided sciatica - ICD9: 724.3, ICD10: M54.32 (primary diagnosis) Sciatica - Ice for localized tenderness - Medrol dose pack - Advised to monitor glucose while on Medrol Dosepak. 2. Lumbar pain - ICD9: 724.2, ICD10: M54.50 -No XR available at time of exam. Due to midline tenderness, patient will return tomorrow for XR. We will contact her with result -Recommend patient call her pain management doctor to schedule follow-up - XR LUMBAR GENERAL 3V AP/LAT/L5-S1 Diagnosis and treatment plan were discussed and questions were answered to the patient's satisfaction. Pt acknowledged understanding of concepts and follow up plan. Specific signs and symptoms that would indicate the need for higher level of care were discussed in detail warranting prompt ER evaluation. MEMO Skinner History and Record Review External record(s) reviewed: prior outpatient record. Differential Diagnoses - Sciatica is more likely for the following reason(s): suggested by H&P - Cauda equina is less likely for the following reason(s): H&P not suggestive - Fracture is less likely for the following reason(s): Less likely, no fall or specific injury, awaiting XR, H&P not suggestive Disposition The patient was discharged. Procedures documented in this encounter [facility] 03-03-2025 Telephone encounter Note Medication was previously prescribed by previous PCP Ant Hodge. Patient reports that she takes amlodipine 5 mg that was previously prescribed by Ant Hodge. Called and spoke with Cece at [employer]. Amlodipine prescripiton is 5 mg daily and it was written by Ant Hodge, patient previous PCP. Patient is going to need a refill on this. The patient has been identified by name and date of : Yes Caregiver verified no other encounters exist for this prescription request: Yes Caregiver confirmed with patient/requestor that no other refills are due, in the near future, with this provider at this time: Yes The last office visit in the department: 02/12/2025 Does the patient have a future office visit with this provider/department: Yes 03/24/2025 Requested Prescriptions Pending Prescriptions Disp Refills omeprazole (PRILOSEC) 40 mg capsule 90 capsule 3 Sig: Take 1 capsule by mouth once daily. amLODIPine (NORVASC) 5 mg tablet Sig: Take 1 tablet by mouth once daily. Belkis Mckeon RN March 03, 2025 9:31 AM [facility] 03-03-2025 Miscellaneous Notes Medication was previously prescribed by previous PCP Ant Hodge. Patient reports that she takes amlodipine 5 mg that was previously prescribed by Ant Hodge. Called and spoke with Cece at [employer]. Amlodipine prescripiton is 5 mg daily and it was written by Ant Hodge, patient previous PCP. Patient is going to need a refill on this. The patient has been identified by name and date of : Yes Caregiver verified no other encounters exist for this prescription request: Yes Caregiver confirmed with patient/requestor that no other refills are due, in the near future, with this provider at this time: Yes The last office visit in the department: 02/12/2025 Does the patient have a future office visit with this provider/department: Yes 03/24/2025 Requested Prescriptions Pending Prescriptions Disp Refills omeprazole (PRILOSEC) 40 mg capsule 90 capsule 3 Sig: Take 1 capsule by mouth once daily. amLODIPine (NORVASC) 5 mg tablet Sig: Take 1 tablet by mouth once daily. Belkis Mckeon RN March 03, 2025 9:31 AM documented in this encounter [facility] 02-26-2025 Note HNO ID: [id number] Author: TORRI PATEL, ? Service: ? Author Type: Physician Type: Progress Notes Filed: 02/26/2025 12:38 Note Text: Judy Santos is a 50-year-old female with a history of PAD, presenting for evaluation of bilateral ingrown toenails. Ingrown Toenails: - Severe thickening and ingrown toenails on bilateral hallux. - Previous trimming provided temporary relief. - Unable to trim nails herself due to thickness. - Denies fungal infection; tested negative for fungus three times. - History of partial nail removal in the past. Peripheral Arterial Disease: - History of PAD; previously recommended for surgery but declined due to work commitments. - Concerns about potential toe amputation. - Previous blood clot in foot and leg. - Underwent circulation study in January 2025; ABIs were normal on both sides (right: 1.08, left: 1.10-1.12). - Toe pressures: right 0.63, left 0.88. - On blood thinners. - Former smoker. Musculoskeletal: (+) bunion pain (right foot), (+) toe pain (bilateral) Skin: (+) painful thick toenails (bilateral) 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 60 g 0 DULoxetine (CYMBALTA) 20 mg capsule Take 1 capsule by mouth two times a day. 60 capsule 2 nicotine (NICODERM) 21 mg/24 hr Apply 1 patch as directed every 24 hours. 30 patch 0 [START ON 03/14/2025] nicotine (NICODERM) 14 mg/24 hr Apply 1 patch as directed every 24 hours. Patient should start on March 14, 2025. 30 patch 0 oxybutynin ER (DITROPAN XL) 15 mg 24 hr Extended Rel Tab Take 1 tablet by mouth once daily. 90 tablet 1 acetaminophen (TYLENOL EXTRA STRENGTH) 500 mg tablet Take 1,000 mg by mouth every 8 hours as needed for pain. aspirin 81 mg cap Take 81 mg by mouth once daily. 90 capsule 1 prazosin (MINIPRESS) 2 mg cap Take 1 capsule by mouth daily at bedtime. 90 capsule 1 mirtazapine (REMERON) 45 mg tablet Take 1 tablet by mouth daily at bedtime. 90 tablet 1 rosuvastatin (CRESTOR) 10 mg tablet Take 1 tablet by mouth once daily. 90 tablet 1 cloNIDine HCl (CATAPRES) 0.1 mg tablet Take 1 tablet by mouth once daily. 90 tablet 1 ARIPiprazole (ABILIFY) 30 mg tablet Take 1 tablet by mouth once daily. 90 tablet 1 rivaroxaban (XARELTO) 20 mg tablet Take 1 tablet by mouth once daily. 90 tablet 1 ergocalciferol 50,000 unit capsule (VITAMIN D2, DRISDOL) Take 1 capsule by mouth one time a week. 12 capsule 1 cilostazol (PLETAL) 100 mg tablet Take 1 tablet by mouth two times a day. folic acid 1 mg tablet Take 1 tablet by mouth once daily. fluticasone (FLONASE) 50 mcg/actuation nasal spray Use 1 [place] in the nose as needed. albuterol HFA (PROVENTIL HFA, VENTOLIN HFA) 90 mcg/actuation inhaler Inhale 2 Puffs as instructed every 6 hours as needed. amLODIPine (NORVASC) 2.5 mg tablet Take 1 tablet by mouth once daily. 30 tablet 1 omeprazole (PRILOSEC) 40 mg capsule Take 1 capsule by mouth once daily. 30 capsule 11 No current facility-administered medications for this visit. ALLERGIES Allergen Reactions Cephalexin Hives, Diarrhea Fenofibrate Other: See Comments Hives with GI upset (emesis) Zoloft [Sertraline * Hives, Diarrhea Zyprexa [Olanzapine] Mental Status Change, Hives Clindamycin Hives States has take since with no issue 08/06/20. Elba Broussard MA Objective Last menstrual period 08/06/2020. - Cardiovascular: Dorsalis pedis and posterior tibial pulses palpable bilaterally; capillary refill immediate at bilateral hallux; skin temperature warm proximally to distally; hair growth present. - Musculoskeletal: Tailor's bunion noted on right foot. - Skin: No open sores on bilateral feet. - Nails: Severe thickening of the first, second, and third toenails on the right foot; thickening and discoloration of the first and second toenails on the left foot; severe ingrown toenails on bilateral hallux with pain Labs: (no date) Fungal testing: Negative (three times) Tests: (01/2025) Noninvasive vascular study: - Right SAVANNA: 1.08 - Left SAVANNA: 1.10, 1.12 - Ri (more content not included)... [facility] 02-26-2025 Note HNO ID: [id number] Author: LIANA POLNACO LPN Service: ? Author Type: LICENSED NURSE Type: Progress Notes Filed: 02/26/2025 12:38 Note Text: AMB ROOMING INTAKE FLOWSHEET DATA Pain Pain Level: 5 Pain Location: Toe Description: Sore Duration Amount of Time: 2 Duration Units: Weeks Frequency: Intermittent Intervention/Comfort measure: Relaxation, Reposition Patient presents with: Left Foot - Pain, Established Patient, Diabetic Foot Care, Ingrown Toenail Right Foot - Pain, Established Patient, Diabetic Foot Care, Ingrown Toenail Liana Polanco LPN [facility] 02-24-2025 Telephone encounter Note The following approved medication requests have been transmitted electronically. Requested Prescriptions Signed Prescriptions Disp Refills nystatin (MYCOSTATIN) powder 60 g 0 Sig: Apply 1 application to affected area three times a day. Authorizing Provider: ISATU NIETO MA [facility] 02-24-2025 Miscellaneous Notes The following approved medication requests have been transmitted electronically. Requested Prescriptions Signed Prescriptions Disp Refills nystatin (MYCOSTATIN) powder 60 g 0 Sig: Apply 1 application to affected area three times a day. Authorizing Provider: ISATU NIETO MA Filed the medication Isatu Dubois MD Patient reports she saw pcp on 02/12/25 and has since developed a yeast rash at top of leg/groin area, where her legs rub together. Asking if pcp can send an Rx for nystatin powder to [facility]? Pended Rx Please advise patient. documented in this encounter [facility] 02-24-2025 Telephone encounter Note Filed the medication Regards, Isatu Nieto MD [facility] 02-23-2025 Telephone encounter Note Patient reports she saw pcp on 02/12/25 and has since developed a yeast rash at top of leg/groin area, where her legs rub together. Asking if pcp can send an Rx for nystatin powder to [facility]? Pended Rx Please advise patient. [facility] 02-17-2025 Telephone encounter Note Patient calls to request refill of aspirin 81 mg daily. Patient should have refill on file at [facility]. Patient reports [facility] said they didn't have a current prescription on file. Order sent on 01/02/2025. Call placed to [facility] and message left to refill prescription on file. [facility] to call back and ask for triage nurse if anything further is needed. Closing TE. Nothing further needed at this time. Miller Lee RN [facility] 02-17-2025 Miscellaneous Notes Patient calls to request refill of aspirin 81 mg daily. Patient should have refill on file at [facility]. Patient reports [facility] said they didn't have a current prescription on file. Order sent on 01/02/2025. Call placed to [facility] and message left to refill prescription on file. [facility] to call back and ask for triage nurse if anything further is needed. Closing TE. Nothing further needed at this time. Miller Lee RN documented in this encounter [facility] 02-16-2025 Instructions Debra Carrillo MD - 02/16/2025 9:10 AM EDT Stop xarelto and pletal for 5 days prior to procedure Adequate fiber in your diet - 25-30 grams Adequate fluids in your diet - 8-10 glasses of free water per day - avoid caffeine Schedule for the breast surgery with Ant Easton documented in this encounter [facility] 02-16-2025 Note HNO ID: [id number] Author: DEBRA CARRILLO MD Service: ? Author Type: Physician Type: Progress Notes Filed: 02/16/2025 14:56 Note Text: HISTORY AND PHYSICAL Vinod Ann 1975 REFERRING PHYSICIAN: Isatu Nieto MD CHIEF COMPLAINT: cyst on back HPI: The patient is a 50 year old female presents with infected sebaceous cyst of back. She has noted the lesion for awhile. She has noted recent spontaneous drainage in the past few days. She also presents with chronic infections of the right breast. This has been going on for years She denies present infection of the area. Examination is consistent with periductal mastitis. She has had previous complete excision of left nipple/areolar complex for chronic infections. She admits to cigarettes use. She is also taking chronic anti-thrombotic medications for history of DVT/PE. 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 , did have small relapse 02/15 with of mother Severe episode of recurrent major depressive disorder, without psychotic features ([facility]) Kendra Valerie WATSONI (stress urinary incontinence, female) Suicidal ideation PAST SURGICAL HISTORY Procedure Laterality Date ABDOMINAL SURGERY HX BREAST SURGERY HX BX OF BREAST; INCISIONAL Left 08/29/2019 [place] [facility]- Benign COLONOSCOPY 09/22/2022 COLONOSCOPY FLX DX W/COLLJ SPEC WHEN PFRMD 12/01/2019 Colonoscopy PAST SURGICAL HISTORY OF 03/2010 gall bladder removed PAST SURGICAL HISTORY OF Left wrist surgery when she was 15 years old PAST SURGICAL HISTORY OF 2014 tubal ligation PAST SURGICAL HISTORY OF 02/2022 bilateral cyst removed, [place] Current Outpatient Medications Medication Sig sulfamethoxazole-trimethoprim (BACTRIM DS) 800-160 mg per tablet Take 1 tablet by mouth two times a day for 7 days. oxybutynin ER (DITROPAN XL) 15 mg 24 hr Extended Rel Tab Take 1 tablet by mouth once daily. acetaminophen (TYLENOL EXTRA STRENGTH) 500 mg tablet Take 1,000 mg by mouth every 8 hours as needed for pain. aspirin 81 mg cap Take 81 mg by mouth once daily. prazosin (MINIPRESS) 2 mg cap Take 1 capsule by mouth daily at bedtime. mirtazapine (REMERON) 45 mg tablet Take 1 tablet by mouth daily at bedtime. rosuvastatin (CRESTOR) 10 mg tablet Take 1 tablet by mouth once daily. cloNIDine HCl (CATAPRES) 0.1 mg tablet Take 1 tablet by mouth once daily. ARIPiprazole (ABILIFY) 30 mg tablet Take 1 tablet by mouth once daily. rivaroxaban (XARELTO) 20 mg tablet Take 1 tablet by mouth once daily. ergocalciferol 50,000 unit capsule (VITAMIN D2, DRISDOL) Take 1 capsule by mouth one time a week. cilostazol (PLETAL) 100 mg tablet Take 1 tablet by mouth two times a day. folic acid 1 mg tablet Take 1 tablet by mouth once daily. fluticasone (FLONASE) 50 mcg/actuation nasal spray Use 1 [place] in the nose as needed. albuterol HFA (PROVENTIL HFA, VENTOLIN HFA) 90 mcg/actuation inhaler Inhale 2 Puffs as instructed every 6 hours as needed. amLODIPine (NORVASC) 2.5 mg tablet Take 1 tablet by mouth once daily. omeprazole (PRILOSEC) 40 mg capsule Take 1 capsule by mouth once daily. DULoxetine (CYMBALTA) 20 mg capsule Take 1 capsule by mouth two times a day. nicotine (NICODERM) 21 mg/24 hr Apply 1 patch as directed every 24 hours. [START ON 03/14/2025] nicotine (NICODERM) 14 mg/24 hr Apply 1 patch as directed every 24 hours. Patient should start on March 14, 2025. No current facility-administered medications for this visit. ALLERGIES: Cephalexin, Fenofibrate, Zoloft [Sertraline Hcl], Zyprexa [Olanzapine], and Clindamycin PERSONAL HISTORY: Social History Tobacco Use Smoking status: Every Day Current packs/day: 1.00 Average packs/day: 2.0 packs/day for 37.3 years (73.8 ttl pk-yrs) Types: Cigarettes Start date: 1987 Smokeless tobacco: Never Vaping Use Vaping status: Former Substances: Nicotine, Flavoring Devices: Disposable Substance Use Topics Alcohol use: Not Currently Comment: quit , small relapse in 02/15 with of mother. Drug use: Not Currently Types: Crystal Meth Comment: Sober since 04/19/2024 FAMILY HISTORY Problem Relation Age of Onset Lung Cancer Mother at 63 Osteoporosis Mother Alcohol/Drug Mother alcohol Hypertension Father Alcohol/Drug Father alcohol Aneurysm Father abdominal Prostate Cancer Father Alcohol/Drug Sister drugs other (Aids) Sister drug user Aneurysm Sister head Breast C (more content not included)... [facility] 02-16-2025 History of Present illness Narrative HISTORY AND PHYSICAL Vinod Ann 1975 REFERRING PHYSICIAN: Isatu Nieto MD CHIEF COMPLAINT: cyst on back HPI: The patient is a 50 year old female presents with infected sebaceous cyst of back. She has noted the lesion for awhile. She has noted recent spontaneous drainage in the past few days. She also presents with chronic infections of the right breast. This has been going on for years She denies present infection of the area. Examination is consistent with periductal mastitis. She has had previous complete excision of left nipple/areolar complex for chronic infections. She admits to cigarettes use. She is also taking chronic anti-thrombotic medications for history of DVT/PE. 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 , did have small relapse 02/15 with of mother Severe episode of recurrent major depressive disorder, without psychotic features ([facility]) Kendra RITTER (stress urinary incontinence, female) Suicidal ideation PAST SURGICAL HISTORY Procedure Laterality Date ABDOMINAL SURGERY HX BREAST SURGERY HX BX OF BREAST; INCISIONAL Left 08/29/2019 [facility]- [facility] COLONOSCOPY 09/22/2022 COLONOSCOPY FLX DX W/COLLJ SPEC WHEN PFRMD 12/01/2019 Colonoscopy PAST SURGICAL HISTORY OF 03/2010 gall bladder removed PAST SURGICAL HISTORY OF Left wrist surgery when she was 15 years old PAST SURGICAL HISTORY OF 2013 tubal ligation PAST SURGICAL HISTORY OF 02/2022 bilateral cyst removed, [place] Current Outpatient Medications Medication Sig sulfamethoxazole-trimethoprim (BACTRIM DS) 800-160 mg per tablet Take 1 tablet by mouth two times a day for 7 days. oxybutynin ER (DITROPAN XL) 15 mg 24 hr Extended Rel Tab Take 1 tablet by mouth once daily. acetaminophen (TYLENOL EXTRA STRENGTH) 500 mg tablet Take 1,000 mg by mouth every 8 hours as needed for pain. aspirin 81 mg cap Take 81 mg by mouth once daily. prazosin (MINIPRESS) 2 mg cap Take 1 capsule by mouth daily at bedtime. mirtazapine (REMERON) 45 mg tablet Take 1 tablet by mouth daily at bedtime. rosuvastatin (CRESTOR) 10 mg tablet Take 1 tablet by mouth once daily. cloNIDine HCl (CATAPRES) 0.1 mg tablet Take 1 tablet by mouth once daily. ARIPiprazole (ABILIFY) 30 mg tablet Take 1 tablet by mouth once daily. rivaroxaban (XARELTO) 20 mg tablet Take 1 tablet by mouth once daily. ergocalciferol 50,000 unit capsule (VITAMIN D2, DRISDOL) Take 1 capsule by mouth one time a week. cilostazol (PLETAL) 100 mg tablet Take 1 tablet by mouth two times a day. folic acid 1 mg tablet Take 1 tablet by mouth once daily. fluticasone (FLONASE) 50 mcg/actuation nasal spray Use 1 [place] in the nose as needed. albuterol HFA (PROVENTIL HFA, VENTOLIN HFA) 90 mcg/actuation inhaler Inhale 2 Puffs as instructed every 6 hours as needed. amLODIPine (NORVASC) 2.5 mg tablet Take 1 tablet by mouth once daily. omeprazole (PRILOSEC) 40 mg capsule Take 1 capsule by mouth once daily. DULoxetine (CYMBALTA) 20 mg capsule Take 1 capsule by mouth two times a day. nicotine (NICODERM) 21 mg/24 hr Apply 1 patch as directed every 24 hours. [START ON 03/14/2025] nicotine (NICODERM) 14 mg/24 hr Apply 1 patch as directed every 24 hours. Patient should start on March 14, 2025. No current facility-administered medications for this visit. ALLERGIES: Cephalexin, Fenofibrate, Zoloft [Sertraline Hcl], Zyprexa [Olanzapine], and Clindamycin PERSONAL HISTORY: Social History Tobacco Use Smoking status: Every Day Current packs/day: 1.00 Average packs/day: 2.0 packs/day for 37.3 years (73.8 ttl pk-yrs) Types: Cigarettes Start date: 1987 Smokeless tobacco: Never Vaping Use Vaping status: Former Substances: Nicotine, Flavoring Devices: Disposable Substance Use Topics Alcohol use: Not Currently Comment: quit , small relapse in 02/15 with of mother. Drug use: Not Currently Types: Crystal Meth Comment: Sober since 04/19/2024 FAMILY HISTORY Problem Relation Age of Onset Lung Cancer Mother at 63 Osteoporosis Mother Alcohol/Drug Mother alcohol Hypertension Father Alcohol/Drug Father alcohol Aneurysm Father abdominal Prostate Cancer Father Alcohol/Drug Sister drugs other (Aids) Sister drug user Aneurysm Sister head Breast Cancer Paternal Grandmother late 50's or 60's Alcohol/Drug Niece Ovarian cancer Niece diagnosed young REVIEW OF SYSTEMS: General - denies fevers HEENT - denies trauma/infections Resp - denies coughing up blood, denies breathing difficulties, admits to cigarettes use Cardiac - denies chest pain GI - denies abdominal pain, denies vomiting up of blood - denies blood in urine HEME - history of blood clots, on anti-thrombotic medication Endocrine - denies diabetes Psych - denies hallucinations PHYSICAL EXAMINATION: General: The patient is 50 year old female, well nourished, well hydrated in no acute distress. The patient is oriented to time, place, and person. VITALS: Blood pressure 103/66, pulse 103, temperature 36.4 C (97.6 F), resp. rate 18, weight 103.4 kg (228 lb), last menstrual period 08/06/2020, SpO2 96%. Body mass index is 36.8 kg/m . Head: Normal cephalic, atraumatic Eyes: pupils are equally round, sclera are clear/anicteric Neck is supple with no tracheal deviation Chest - right breast with multiple chronic infections scar tissue noted medially aspect - no erythema/fluctuance Cardiac: normal heart sounds, regular Respiratory: Normal respiratory excursion and pattern. Abdominal exam: benign Back - infected sebaceous cyst - still with drainage from open pore - no surrounding erythema/fluctuance Extremities: no clubbing, cyanosis or edema. Neuro: non focal Psych: normal mood The sensitive examination was discussed with the Patient or Patient's Authorized White Spooler. As applicable, any other physician, advance practice provider, medical student, or other health professional student that will be observing or involved in the sensitive examination for educational or training purposes was discussed with the Patient or Authorized White Spooler. The Patient or Authorized White Spooler has agreed to proceed with the sensitive examination. (Sensitive examination includes inspection and/or palpation of the breasts, pelvis, prostate and anorectal regions) Assessment IMPRESSION: right breast periductal mastitis PLAN: I have discussed the above with the patient. I have offered excision of back skin cyst. I have explained the procedure to the patient. To be done in the office ([place]) using local anesthesia. I have counseled the patient as to the risks of the procedure, including but not limited to: infection, bleeding, injury to any blood vessels/nerves, scar tissue, continued infections, complications of anesthesia, etc. - the patient understands. I have explained periductal mastitis and its etiology with cigarettes use. I have offered excision of right nipple ducts and incision and drainage and debridement of the area of chronic infection I have explained the procedure to the patient. To be done at [facility] OR using MAC/local anesthesia I have counseled the patient as to the risks of the procedure, including but not limited to: infection, bleeding, injury to any blood vessels/nerves, scar tissue, cosmetic deformity, prolonged open wound care, continued infections, complications of anesthesia, etc. - the patient understands. The patient wishes to proceed with both of the above. I have recommended to discontinue cigarettes use. Patient is to hold Xarelto and Pletal for 5 days prior to procedures (though doesn't have to hold for back skin lesion, as it is superficial) Instructions typed out and printed for patient. I have answered all questions to the patient s satisfaction and the patient has no further questions. I have confirmed and edited as necessary, the PFSH and ROS obtained by others. Consultation requested by Dr. Isatu Nieto for an opinion regarding patient's right breast periductal mastitis and infected sebaceous cyst of back.. My final recommendations will be communicated back to the requesting physician by way of shared Medical record or letter to requesting physician via [place] mail. 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 Debra Carrillo MD documented in this encounter [facility] 02-12-2025 Note HNO ID: [id number] Author: ISATU NIETO MD Service: ? Author Type: Physician Type: Progress Notes Filed: 02/12/2025 11:06 Note Text: Reason for Visit Whole body pain DAMION Santos is a 50-year-old female with a history of drug abuse, peripheral arterial disease, tobacco use disorder, breast abscess, obesity, anxiety, urinary incontinence, stress urinary incontinence, GERD, and hyperlipidemia, presenting for evaluation of chronic pain and a cyst on her back. Vinod reports chronic pain that hurts to walk, it hurts to move, it hurts to sit. She has been evaluated by a spray painter, Dr. Fitch, who suspects fibromyalgia and recommended physical therapy, which she has not yet initiated. She also reports her back trying to lock up on me and expresses concern about the possibility of bone cancer, given her family history of bone, lung, and prostate cancer in her father. She requests a bone density scan. She has had x-rays of her back, which reportedly showed degenerative changes, but she is unsure of the specific results. She is currently taking multiple medications, including oxybutynin, Xarelto 15 mg, Pletal, Crestor, Prilosec, and prazosin for night terrors. She is also on Abilify 30 mg for mood swings and bipolar disorder. She has a history of being on gabapentin 800 mg, which she reports was helpful. She is unsure if she has tried Cymbalta in the past. Vinod also reports a cyst on her back that was popped by someone yesterday, resulting in the release of blood and gunk. She requests evaluation of the cyst to ensure it is not infected. She has a history of a breast abscess that required removal of her nipple. She is a current smoker, smoking approximately one pack per day, and has recently increased her smoking due to stress. She has a 26-year-old child. Social History Tobacco Use Smoking status: Every Day Current packs/day: 1.00 Average packs/day: 2.0 packs/day for 37.3 years (73.8 ttl pk-yrs) Types: Cigarettes Start date: 1987 Smokeless tobacco: Never Vaping Use Vaping status: Former Substances: Nicotine, Flavoring Devices: Disposable Substance Use Topics Alcohol use: Not Currently Comment: quit , small relapse in 02/15 with of mother. Drug use: Not Currently Types: Crystal Meth Comment: Sober since 04/19/2024 Past medical history, appointments, medications, allergies reviewed. Pertinent Lab/Diagnostic Studies are reviewed and discussed today Current Outpatient Medications: oxybutynin ER (DITROPAN XL) 15 mg 24 hr Extended Rel Tab acetaminophen (TYLENOL EXTRA STRENGTH) 500 mg tablet aspirin 81 mg cap prazosin (MINIPRESS) 2 mg cap mirtazapine (REMERON) 45 mg tablet rosuvastatin (CRESTOR) 10 mg tablet cloNIDine HCl (CATAPRES) 0.1 mg tablet ARIPiprazole (ABILIFY) 30 mg tablet rivaroxaban (XARELTO) 20 mg tablet ergocalciferol 50,000 unit capsule (VITAMIN D2, DRISDOL) cilostazol (PLETAL) 100 mg tablet folic acid 1 mg tablet fluticasone (FLONASE) 50 mcg/actuation nasal spray albuterol HFA (PROVENTIL HFA, VENTOLIN HFA) 90 mcg/actuation inhaler amLODIPine (NORVASC) 2.5 mg tablet omeprazole (PRILOSEC) 40 mg capsule DULoxetine (CYMBALTA) 20 mg capsule sulfamethoxazole-trimethoprim (BACTRIM DS) 800-160 mg per tablet nicotine (NICODERM) 21 mg/24 hr [START ON 03/14/2025] nicotine (NICODERM) 14 mg/24 hr Health Maintenance Depression Screening Hepatitis B Vaccine(1 of 3 - 19+ 3-dose series) Pneumococcal Vaccine: 50+(2 of 2 - PCV) Lipid Screening Shingrix Vaccine(1 of 2) Influenza Vaccine(1) Covid-19 Vaccine( season) Lung Cancer Screening Mammogram Screening@ Review Of Systems Constitutional: (+) myalgia Neck: (+) neck pain Musculoskeletal: (+) back pain, (+) pain with movement Skin: (+) draining cyst on left posterior trunk Psychiatric: (+) anxiety, (+) night terrors Physical Exam BP 120/78 Pulse 105 Ht 167.6 cm (5' 6) Wt 102.2 kg (225 lb 6.4 oz) LMP 08/06/2020 SpO2 95% BMI 36.38 kg/m? GENERAL: NAD, alert and oriented. SKIN: Sebaceous cyst noted on the posterior left side below the angle of the scapula, approximately 1.2-1.3 cm in diameter, with dark discharge. No other rash or skin lesions. HEAD: Normocephalic. EYES: PERRLA, EOMI, conjunctiva clear. EARS: External ears normal, canals clear, TM's normal. NOSE/SINUSES: Nares normal. Septum midline. OROPHARYNX: Lips, mucosa, and tongue normal, good dentition. No oral lesions noted. NECK: Supple, no lymphadenopathy, normal thyroid, no carotid bruits. LUNGS: Clear to auscultation bilaterally, no wheezes/rhonchi/rales. HEART: Regular rate and rhythm, no murmurs. No ectopy. EXTREMITIES: Normal, no deformities, no skin discoloration, no edema. NEURO: Awake, alert and oriented x3, cranial nerves II-XII grossly intact, normal gait, no involuntary motions. Labs: Tests: Imaging: - X-ray of the back: Degenerati (more content not included)... [facility] 02-11-2025 Telephone encounter Note Patient was seen by vascular surgery on 02/10/2025. Liana Polanco LPN [facility] 02-11-2025 Miscellaneous Notes Patient was seen by vascular surgery on 02/10/2025. Liana Polanco LPN Called patient to provide below results. No response. Left VM . Liana Polanco LPN ----- Message from Torri Patel sent at 01/08/2025 10:32 PM EST ----- Please call patient to inform her that her circulation is adequate to the left foot. To the toes, the circulation in the right foot is decreased. If she were interested in toenail removal, would recommend vascular evaluation first Torri Patel DPM documented in this encounter [facility] 02-10-2025 Note HNO ID: [id number] Author: KIMBERLY MARADIAGA, DO Service: ? Author Type: Physician Type: Progress Notes Filed: 02/20/2025 08:59 Note Text: [facility] [place] DEPARTMENT OF VASCULAR SURGERY OUTPATIENT VISIT DATE February 10, 2025 OUTPATIENT VISIT TYPE CONSULTATION SERVICE DATE: 02/10/2025 SERVICE TIME: 1:22 PM PRIMARY CARE PHYSICIAN: Isatu Nieto MD REFERRING PROVIDER: Isatu Nieto [address] [facility] [id number] Consult requested for an opinion regarding the evaluation and treatment of the above. My final impression and recommendations will be communicated back to the requesting physician by way of the shared medical record or letter via [place] mail. CHIEF COMPLAINT: Patient presents with: New Patient History of Present Illness: Patient is a 50 year old White female presenting for consultation, evaluation and possible treatment of peripheral arterial disease especially the right foot with associated swelling.She admits to claudication. She has a history of DVT- is on xarelto. She admits to restless legs and needs to get up and move at night. PAIN ASSESSMENT: PAIN EVALUATION 02/10/2025 1317 Pain Level: 3 Pain Location: Foot-Right Description: Aching Frequency: Intermittent Obstetric History T1 L1 SAB3 IAB0 Ectopic0 Multiple0 Live Births1 Comment: One baby stillborn Name of Baby 1: Not recorded Date: Not recorded GA: Not recorded Type: Not recorded Apgar1: Not recorded Apgar5: Not recorded Living: Not recorded Name of Baby 2: Not recorded Date: Not recorded GA: Not recorded Type: Not recorded Apgar1: Not recorded Apgar5: Not recorded Living: Not recorded Name of Baby 3: Not recorded Date: Not recorded GA: Not recorded Type: Not recorded Apgar1: Not recorded Apgar5: Not recorded Living: Not recorded Name of Baby 4: Not recorded Date: Not recorded GA: Not recorded Type: Not recorded Apgar1: Not recorded Apgar5: Not recorded Living: Not recorded Name of Baby 5: Not recorded Date: Not recorded GA: Not recorded Type: Not recorded Apgar1: Not recorded Apgar5: Not recorded Living: Not recorded Duration of Symptoms: Progressive 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 02/15 with of mother Severe episode of recurrent major depressive disorder, without psychotic features (HCC) Kendra Padilla Suicidal ideation PAST SURGICAL HISTORY Procedure Laterality Date ABDOMINAL SURGERY HX BREAST SURGERY HX BX OF BREAST; INCISIONAL Left 08/29/2019 [facility] COLONOSCOPY 09/22/2022 COLONOSCOPY FLX DX W/COLLJ SPEC WHEN PFRMD 12/01/2019 Colonoscopy PAST SURGICAL HISTORY OF 03/2010 gall bladder removed PAST SURGICAL HISTORY OF Left wrist surgery when she was 15 years old PAST SURGICAL HISTORY OF 2014 tubal ligation PAST SURGICAL HISTORY OF 02/2022 bilateral cyst removed, [place] SOCIAL HISTORY: Social History Tobacco Use Smoking status: Every Day Current packs/day: 1.00 Average packs/day: 2.0 packs/day for 37.3 years (73.8 ttl pk-yrs) Types: Cigarettes Start date: 1987 Smokeless tobacco: Never Vaping Use Vaping status: Former Substances: Nicotine, Flavoring Devices: Disposable Substance Use Topics Alcohol use: Not Currently Comment: quit , small relapse in 02/15 with of mother. Drug use: Not Currently Types: Crystal Meth Comment: Sober since 04/19/2024 FAMILY HISTORY Problem Relation Age of Onset Lung Cancer Mother at 63 Osteoporosis Mother Alcohol/Drug Mother alcohol Hypertension Father Alcohol/Drug Father alcohol Aneurysm Father abdominal Prostate Cancer Father Alcohol/Drug Sister drugs other (Aids) Sister drug user Aneurysm Sister head Breast Cancer Paternal Grandmother late 50's or 60's Alcohol/Drug Niece Ovarian cancer Niece diagnosed young MEDICATIONS: oxybutynin ER (DITROPAN XL) 15 mg 24 hr Extended Rel Tab Take 1 tablet by mouth once daily. acetaminophen (TYLENOL EXTRA STRENGTH) 500 mg tablet Take 1,000 mg by mouth every 8 hours as needed for pain. aspirin 81 mg cap Take 81 mg by mouth once daily. prazosin (MINIPRESS) 2 mg cap Take 1 capsule by mouth daily at bedtime. mirtazapine (REMERON) 45 mg tablet Take 1 tablet by mouth daily at bedtime. rosuvastatin (CRESTOR) 10 mg tablet Take 1 tablet by mouth once daily. cloNIDine HCl (CATAPRES) 0.1 mg tablet Take 1 tablet by mouth once daily. ARIPiprazole (ABILIFY) 30 mg tablet Take 1 tablet by mouth once daily. rivaroxaban (XARELTO) 20 mg ta (more content not included)... [facility] 02-10-2025 History of Present illness Narrative Images from the original note were not included. [facility] [place] DEPARTMENT OF VASCULAR SURGERY OUTPATIENT VISIT DATE February 10, 2025 OUTPATIENT VISIT TYPE CONSULTATION SERVICE DATE: 02/10/2025 SERVICE TIME: 1:22 PM PRIMARY CARE PHYSICIAN: Isatu Nieto MD REFERRING PROVIDER: Isatu Nieto [address] [facility] [id number] Consult requested for an opinion regarding the evaluation and treatment of the above. My final impression and recommendations will be communicated back to the requesting physician by way of the shared medical record or letter via [place] mail. CHIEF COMPLAINT: Patient presents with: New Patient History of Present Illness: Patient is a 50 year old White female presenting for consultation, evaluation and possible treatment of peripheral arterial disease especially the right foot with associated swelling.She admits to claudication. She has a history of DVT- is on xarelto. She admits to restless legs and needs to get up and move at night. PAIN ASSESSMENT: PAIN EVALUATION 02/10/2025 1317 Pain Level: 3 Pain Location: Foot-Right Description: Aching Frequency: Intermittent Obstetric History T1 L1 SAB3 IAB0 Ectopic0 Multiple0 Live Births1 Comment: One baby stillborn Name of Baby 1: Not recorded Date: Not recorded GA: Not recorded Type: Not recorded Apgar1: Not recorded Apgar5: Not recorded Living: Not recorded Name of Baby 2: Not recorded Date: Not recorded GA: Not recorded Type: Not recorded Apgar1: Not recorded Apgar5: Not recorded Living: Not recorded Name of Baby 3: Not recorded Date: Not recorded GA: Not recorded Type: Not recorded Apgar1: Not recorded Apgar5: Not recorded Living: Not recorded Name of Baby 4: Not recorded Date: Not recorded GA: Not recorded Type: Not recorded Apgar1: Not recorded Apgar5: Not recorded Living: Not recorded Name of Baby 5: Not recorded Date: Not recorded GA: Not recorded Type: Not recorded Apgar1: Not recorded Apgar5: Not recorded Living: Not recorded Duration of Symptoms: Progressive 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 02/15 with of mother Severe episode of recurrent major depressive disorder, without psychotic features (HCC) Kendra Padilla Suicidal ideation PAST SURGICAL HISTORY Procedure Laterality Date ABDOMINAL SURGERY HX BREAST SURGERY HX BX OF BREAST; INCISIONAL Left 08/29/2019 [facility] COLONOSCOPY 09/22/2022 COLONOSCOPY FLX DX W/COLLJ SPEC WHEN PFRMD 12/01/2019 Colonoscopy PAST SURGICAL HISTORY OF 03/2010 gall bladder removed PAST SURGICAL HISTORY OF Left wrist surgery when she was 15 years old PAST SURGICAL HISTORY OF 2013 tubal ligation PAST SURGICAL HISTORY OF 02/2022 bilateral cyst removed, [place] SOCIAL HISTORY: Social History Tobacco Use Smoking status: Every Day Current packs/day: 1.00 Average packs/day: 2.0 packs/day for 37.3 years (73.8 ttl pk-yrs) Types: Cigarettes Start date: 1987 Smokeless tobacco: Never Vaping Use Vaping status: Former Substances: Nicotine, Flavoring Devices: Disposable Substance Use Topics Alcohol use: Not Currently Comment: quit , small relapse in 02/15 with of mother. Drug use: Not Currently Types: Crystal Meth Comment: Sober since 04/19/2024 FAMILY HISTORY Problem Relation Age of Onset Lung Cancer Mother at 63 Osteoporosis Mother Alcohol/Drug Mother alcohol Hypertension Father Alcohol/Drug Father alcohol Aneurysm Father abdominal Prostate Cancer Father Alcohol/Drug Sister drugs other (Aids) Sister drug user Aneurysm Sister head Breast Cancer Paternal Grandmother late 50's or 60's Alcohol/Drug Niece Ovarian cancer Niece diagnosed young MEDICATIONS: oxybutynin ER (DITROPAN XL) 15 mg 24 hr Extended Rel Tab Take 1 tablet by mouth once daily. acetaminophen (TYLENOL EXTRA STRENGTH) 500 mg tablet Take 1,000 mg by mouth every 8 hours as needed for pain. aspirin 81 mg cap Take 81 mg by mouth once daily. prazosin (MINIPRESS) 2 mg cap Take 1 capsule by mouth daily at bedtime. mirtazapine (REMERON) 45 mg tablet Take 1 tablet by mouth daily at bedtime. rosuvastatin (CRESTOR) 10 mg tablet Take 1 tablet by mouth once daily. cloNIDine HCl (CATAPRES) 0.1 mg tablet Take 1 tablet by mouth once daily. ARIPiprazole (ABILIFY) 30 mg tablet Take 1 tablet by mouth once daily. rivaroxaban (XARELTO) 20 mg tablet Take 1 tablet by mouth once daily. ergocalciferol 50,000 unit capsule (VITAMIN D2, DRISDOL) Take 1 capsule by mouth one time a week. cilostazol (PLETAL) 100 mg tablet Take 1 tablet by mouth two times a day. folic acid 1 mg tablet Take 1 tablet by mouth once daily. fluticasone (FLONASE) 50 mcg/actuation nasal spray Use 1 [place] in the nose as needed. albuterol HFA (PROVENTIL HFA, VENTOLIN HFA) 90 mcg/actuation inhaler Inhale 2 Puffs as instructed every 6 hours as needed. amLODIPine (NORVASC) 2.5 mg tablet Take 1 tablet by mouth once daily. omeprazole (PRILOSEC) 40 mg capsule Take 1 capsule by mouth once daily. oxybutynin ER (DITROPAN XL) 10 mg 24 hr tablet Take 1 tablet by mouth once daily. (Patient not taking: Reported on 02/10/2025) ALLERGIES: ALLERGIES Allergen Reactions Cephalexin Hives, Diarrhea Fenofibrate Other: See Comments Hives with GI upset (emesis) Zoloft [Sertraline * Hives, Diarrhea Zyprexa [Olanzapine] Mental Status Change, Hives Clindamycin Hives States has take since with no issue 08/06/20. Elba Broussard MA REVIEW of SYSTEMS: Constitutional: No weight loss, malaise or fevers. HEENT: Negative for frequent or significant headaches, No changes in hearing or vision, no nose bleeds or other nasal problems Respiratory: Positive for chronic cough and shortness of breath on exertion Cardiovascular: Negative for chest pain and Positive for leg swelling and palpitations Gatrointestinal: Negative for blood in stools or black stools and change in bowel habit and Positive for abdominal discomfort Genitourinary: No difficulty urination, nocturia >1 times per night or hematuria Musculoskeletal: Positive for back pain, joint pain, and muscle pain Endocrine: Positive for cold intolerance Hematology/Lymphatic: Positive for bruises easily Neurologic: No history or headaches, syncope, paralysis, seizures or tremors Integumentary: Negative for lesions, rash, and itching. PHYSICAL EXAM: VITALS: [facility] 08/06/2020 General: Alert, oriented, cooperative, healthy appearance Integumentary: Normal color, no rash, no lesions. HEENT: EOM, pupils equal, round and reactive. Cardiovascular: Pulse regular. Lungs: No chest deformities or chest wall tenderness. Abdomen: Not examined Extremities: No deformity, no edema or tenderness, no joint swelling or clubbing. Neurological: AAOx3. Normal cognition and motor skills. Vascular: Dorsalis Pedal Right: Weak - Left: Weak Diagnostic tests reviewed for today's visit: Most recent labs Most recent imaging PVRs RIGHT SIDE Resting right ankle brachial index: 1.08 Right toe brachial index: 0.63 Normal ankle brachial index at rest in the right leg. Abnormal toe brachial index at rest is evidence of peripheral artery disease. Right ankle: Normal at rest. Right small vessel disease versus vasoconstriction. LEFT SIDE Resting left ankle brachial index: 1.12 Left toe brachial index: 0.88 Normal ankle brachial index at rest in the left leg. Normal toe brachial index at rest in the left leg. Left ankle: Normal at rest. IMPRESSION: Ms. Ann is a 50 year old female with peripheral arterial disease with claudication . PLAN and RECOMMENDATIONS: Recommend PVRs with exercise Continue walking and exercise program Encouraged continued work with smoking cessation Continue aspirin, pletal, crestor Follow up in 6 months SIGNATURE: Kimberly Maradiaga DO PATIENT NAME: Vinod Ann DATE: February 10, 2025 TIME: 1:22 PM documented in this encounter [facility] 01-28-2025 Telephone encounter Note The patient has been identified by name and date of : Yes Caregiver verified no other encounters exist for this prescription request: Yes Caregiver confirmed with patient/requestor that no other refills are due, in the near future, with this provider at this time: Yes The last office visit in the department: 12/16/2024 Does the patient have a future office visit with this provider/department: 02/02/2025 Requested Prescriptions Pending Prescriptions Disp Refills oxybutynin ER (DITROPAN XL) 15 mg 24 hr Extended Rel Tab 90 tablet Sig: Take 1 tablet by mouth once daily. Patient calls to request oxybutynin ER prescription. Patient reports that she is taking 15 mg daily. Current prescription is for 10 mg. The 15 mg is ordered by Ant Hodge CNP but patient is no longer seeing her. Patient asking if provider would continue ordering? Miller Lee RN January 28, 2025 9:21 AM [facility] 01-28-2025 Miscellaneous Notes The patient has been identified by name and date of : Yes Caregiver verified no other encounters exist for this prescription request: Yes Caregiver confirmed with patient/requestor that no other refills are due, in the near future, with this provider at this time: Yes The last office visit in the department: 12/16/2024 Does the patient have a future office visit with this provider/department: 02/02/2025 Requested Prescriptions Pending Prescriptions Disp Refills oxybutynin ER (DITROPAN XL) 15 mg 24 hr Extended Rel Tab 90 tablet Sig: Take 1 tablet by mouth once daily. Patient calls to request oxybutynin ER prescription. Patient reports that she is taking 15 mg daily. Current prescription is for 10 mg. The 15 mg is ordered by Ant Hodge CNP but patient is no longer seeing her. Patient asking if provider would continue ordering? Miller Lee RN January 28, 2025 9:21 AM documented in this encounter [facility] 01-20-2025 Note Patient Outreach (IN [facility]) VINOD ANN ([id number]) 1975 F Date Time Provider Department 01/20/25 ISATU NIETO During your visit today, we recorded the following information about you: Allergies As of Date: 01/20/2025 Noted Allergy Reaction CEPHALEXIN 02/26/2018 4 - Hives 6 - Diarrhea FENOFIBRATE 08/31/2019 14 - Other: See Comments Comments: Hives with GI upset (emesis) ZOLOFT (SERTRALINE HCL) 06/23/2013 4 - Hives 6 - Diarrhea ZYPREXA (OLANZAPINE) 04/04/2024 1 - Mental Status Change 4 - Hives CLINDAMYCIN 09/29/2019 4 - Hives Comments: States has take since with no issue 08/06/20. Elba Broussard MA Date Reviewed: 01/12/2025 Reviewed by: Blanca Landis APRN.HAND SCRAPER - Fully Assessed Visit Diagnosis:Medication management [Z79.899] Order(s):LIPID PANEL BASIC [SQLIPB] Order #: [id number] FUTURE Prescriptions as of 2025 - acetaminophen (TYLENOL EXTRA STRENGTH) 500 mg tablet Take 1,000 mg by mouth every 8 hours as needed for pain. - famotidine (PEPCID) 40 mg tablet Take 1 tablet by mouth daily at bedtime. - famotidine (PEPCID) 40 mg tablet Take 1 tablet by mouth daily at bedtime. - aspirin 81 mg cap Take 81 mg by mouth once daily. - prazosin (MINIPRESS) 2 mg cap Take 1 capsule by mouth daily at bedtime. - mirtazapine (REMERON) 45 mg tablet Take 1 tablet by mouth daily at bedtime. - rosuvastatin (CRESTOR) 10 mg tablet Take 1 tablet by mouth once daily. - cloNIDine HCl (CATAPRES) 0.1 mg tablet Take 1 tablet by mouth once daily. - ARIPiprazole (ABILIFY) 30 mg tablet Take 1 tablet by mouth once daily. - rivaroxaban (XARELTO) 20 mg tablet Take 1 tablet by mouth once daily. - ergocalciferol 50,000 unit capsule (VITAMIN D2, DRISDOL) Take 1 capsule by mouth one time a week. - cilostazol (PLETAL) 100 mg tablet Take 1 tablet by mouth two times a day. - folic acid 1 mg tablet Take 1 tablet by mouth once daily. - fluticasone (FLONASE) 50 mcg/actuation nasal spray Use 1 [place] in the nose as needed. - albuterol HFA (PROVENTIL HFA, VENTOLIN HFA) 90 mcg/actuation inhaler Inhale 2 Puffs as instructed every 6 hours as needed. - amLODIPine (NORVASC) 2.5 mg tablet Take 1 tablet by mouth once daily. - oxybutynin ER (DITROPAN XL) 10 mg 24 hr tablet Take 1 tablet by mouth once daily. - omeprazole (PRILOSEC) 40 mg capsule Take 1 capsule by mouth once daily. 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 Pt voices understanding. Pt scheduled with Dr Nieto 02/02/25. Destiny Mcnulty RN [facility] 01-19-2025 Miscellaneous Notes Pt called and is notified of providers message and instructions. Pt voices understanding. Pt scheduled with Dr Nieto 02/02/25. Destiny Mcnulty RN Decreased bone density does not hurt. BMD is not indicated. Make follow up to discuss bone pains Isatu Dubois MD Pt called in and states, It feels like my bones are going to break. Can you ask the doctor if they will order a bone density test for me.. I asked Pt if she has ever had one done before and Pt said she has not. I let Pt know I could sent a message to the provider and have them call her back. Pt states she has an appointment on 03/17/25. Please call and advise. documented in this encounter [facility] 01-19-2025 Telephone encounter Note Decreased bone density does not hurt. BMD is not indicated. Make follow up to discuss bone pains Regards, Isatu Nieto MD [facility] 01-19-2025 Telephone encounter Note Pt called in and states, It feels like my bones are going to break. Can you ask the doctor if they will order a bone density test for me.. I asked Pt if she has ever had one done before and Pt said she has not. I let Pt know I could sent a message to the provider and have them call her back. Pt states she has an appointment on 03/17/25. Please call and advise. [facility] 01-14-2025 Telephone encounter Note Noted. Milly Feliciano APRN.CNP [facility] 01-14-2025 Miscellaneous Notes Noted. Milly Feliciano APRN.CNP Pt wanted pcp to know, her previous pcp, Dr. Hdoge, sent her medical history to pcp. Noted in scanned documents under 11/26/24. documented in this encounter [facility] 01-14-2025 Telephone encounter Note Pt wanted pcp to know, her previous pcp, Dr. Hodge, sent her medical history to pcp. Noted in scanned documents under 11/26/24. [facility] 01-12-2025 History of Present illness Narrative HISTORY AND PHYSICAL Vinod Ann : 1975 REFERRING PHYSICIAN: No referring provider defined for this encounter. CHIEF COMPLAINT: Patient presents with: Consult: colonoscopy HPI: Vinod is a 49 year old female referred for endoscopy. Vinod notes soft stools 6 on the [facility]ol stool chart. Vinod notes abdominal pain. Some mild abdominal cramping prior to BM Vinod notes diarrhea. Vinod denies constipation. Vinod notes a change in bowel habits. Vinod denies melena. Vinod denies bright red blood per rectum. Vinod denies hemorrhoids. Vinod denies family history of colon issues. Vinod notes heartburn. -regurgitation into her mouth -relieved with drinking liquid -can be painful at times -taking Prilosec & pepcid Vinod denies dysphagia. Vinod denies a history of ulcers/ peptic ulcer disease. Vinod notes some nausea Vinod's medical history is significant for HTN, GERD, hiatal hernia, alcohol/drug abuse in recovery, DVT- on Xarelto & HLD. Denies CP, SOB, dizziness, palpitations, syncope, edema, recent hospitalizations Vinod has undergone prior endoscopy. Last colonoscopy was 09/[address] Carrillo at [facility]. Sedation:Midazolam 7 mg IV, Fentanyl 100 micrograms IV, Diphenhydramine 50 mg IV Impression: - Non-bleeding internal hemorrhoids. - Diverticulosis in the sigmoid colon, in the descending colon and in the ascending colon. - One 4 to 7 mm polyp in the descending colon, removed with a cold snare. Resected and retrieved. FINAL DIAGNOSIS Left colon, polypectomy: - Fragments of tubular adenoma. Current Outpatient Medications Medication Sig acetaminophen (TYLENOL EXTRA STRENGTH) 500 mg tablet Take 1,000 mg by mouth every 8 hours as needed for pain. famotidine (PEPCID) 40 mg tablet Take 1 tablet by mouth daily at bedtime. famotidine (PEPCID) 40 mg tablet Take 1 tablet by mouth daily at bedtime. aspirin 81 mg cap Take 81 mg by mouth once daily. prazosin (MINIPRESS) 2 mg cap Take 1 capsule by mouth daily at bedtime. mirtazapine (REMERON) 45 mg tablet Take 1 tablet by mouth daily at bedtime. rosuvastatin (CRESTOR) 10 mg tablet Take 1 tablet by mouth once daily. cloNIDine HCl (CATAPRES) 0.1 mg tablet Take 1 tablet by mouth once daily. ARIPiprazole (ABILIFY) 30 mg tablet Take 1 tablet by mouth once daily. rivaroxaban (XARELTO) 20 mg tablet Take 1 tablet by mouth once daily. ergocalciferol 50,000 unit capsule (VITAMIN D2, DRISDOL) Take 1 capsule by mouth one time a week. cilostazol (PLETAL) 100 mg tablet Take 1 tablet by mouth two times a day. folic acid 1 mg tablet Take 1 tablet by mouth once daily. fluticasone (FLONASE) 50 mcg/actuation nasal spray Use 1 [place] in the nose as needed. albuterol HFA (PROVENTIL HFA, VENTOLIN HFA) 90 mcg/actuation inhaler Inhale 2 Puffs as instructed every 6 hours as needed. amLODIPine (NORVASC) 2.5 mg tablet Take 1 tablet by mouth once daily. oxybutynin ER (DITROPAN XL) 10 mg 24 hr tablet Take 1 tablet by mouth once daily. omeprazole (PRILOSEC) 40 mg capsule Take 1 capsule by mouth once daily. peg 3350-Electrolytes (GOLYTELY) 236-22.74-6.74 -5.86 gram suspension Take 4,000 mL by mouth one time only for 1 dose. Refer to printed prep instructions from your provider. No current facility-administered medications for this visit. 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 02/15 with of mother Severe episode of recurrent major depressive disorder, without psychotic features (HCC) Kendra Padilla Suicidal ideation PAST SURGICAL HISTORY Procedure Laterality Date ABDOMINAL SURGERY HX BREAST SURGERY HX BX OF BREAST; INCISIONAL Left 08/29/2019 [facility]- Benign COLONOSCOPY 09/22/2022 COLONOSCOPY FLX DX W/COLLJ SPEC WHEN PFRMD 12/01/2019 Colonoscopy PAST SURGICAL HISTORY OF 03/2010 gall bladder removed PAST SURGICAL HISTORY OF Left wrist surgery when she was 15 years old PAST SURGICAL HISTORY OF 2014 tubal ligation PAST SURGICAL HISTORY OF 02/2022 bilateral cyst removed, [place] FAMILY HISTORY Problem Relation Age of Onset Lung Cancer Mother at 63 Osteoporosis Mother Alcohol/Drug Mother alcohol Hypertension Father Alcohol/Drug Father alcohol Aneurysm Father abdominal Prostate Cancer Father Alcohol/Drug Sister drugs other (Aids) Sister drug user Aneurysm Sister head Breast Cancer Paternal Grandmother late 50's or 60's Alcohol/Drug Niece Ovarian cancer Niece diagnosed young Social History Tobacco Use Smoking status: Every Day Current packs/day: 1.00 Average packs/day: 2.0 packs/day for 37.2 years (73.7 ttl pk-yrs) Types: Cigarettes Start date: 1987 Smokeless tobacco: Never Vaping Use Vaping status: Former Substances: Nicotine, Flavoring Devices: Disposable Substance Use Topics Alcohol use: Not Currently Comment: quit , small relapse in 02/15 with of mother. Drug use: Not Currently Types: Crystal Meth Comment: Sober since 04/19/2024 REVIEW OF SYMPTOMS: The review of systems data was entered by the nurse and reviewed by me See nursing note PHYSICAL EXAMINATION: General: The patient is 49 year old, female well nourished, well hydrated in no acute distress. The patient is oriented to time, place, and person. VITALS: Pulse (!) 122, temperature 36.4 C (97.5 F), height 165.1 cm (5' 5), weight 105 kg (231 lb 6.4 oz), last menstrual period 08/06/2020, SpO2 99%. Body mass index is 38.51 kg/m . HEENT: Normal cephalic, ataumatic, pupils are equally round, sclera are anicteric, mucous membranes are moist, oropharynx is clear. Neck has no masses, asymmetry or lymphadenopathy. Respiratory: Clear to auscultation and percussion. Normal respiratory excursion and pattern. Cardiac: Examination is regular rate and rhythm. Normal S1/S2 Abdominal exam: Soft, nontender, with no palpable masses. No hepatosplenomegaly. No palpable hernias. Extremities: no clubbing, cyanosis or edema. No adenopathy. LABORATORY VALUES: As Noted RADIOLOGIC STUDIES: As Noted Assessment IMPRESSION: screen for colon cancer, history of polyps, GERD, nausea PLAN: I have reviewed my findings with the surgeon. Will plan for upper & lower endoscopy. We discussed the risks and benefits of the planned endoscopy. I have informed the patient that complications can occur including failure to complete the endoscopy and perforation. Vinod had the opportunity to ask questions concerning the planned endoscopy. My staff has also explained the procedure to the patient in understandable terms and has given the patient printed material concerning the procedure. Vinod freely consents to surgery. I plan to use Gol[place]ely bowel preparation Sent clearance to Ant Hodge CNP at [facility] to hold Xarelto & platel x 48 hours. I have explained to the patient the difference between IV conscious sedation and MAC anesthesia - and I have offered either, according to the patient's wishes. I have explained that with IV conscious sedation there is no anesthesia provider available and therefore there is a limitation of the amount of IV medications that can be given and that the patient may wake up in the middle of the procedure and/or experience pain/discomfort during the procedure. Further discussion was done and the patient was given the opportunity to ask questions and all questions were answered. Vinod chooses MAC anesthesia. Vinod was counseled that if there are changes in his/her medical condition, to let the office know if surgery should proceed. If there are changes in patient's medical condition from time of this encounter to the day of the procedure that preclude anesthesia, patient may have procedure cancelled for patient's safety. Diagnoses: (Z12.11) Screen for colon cancer (primary encounter diagnosis) (Z86.0100) History of colonic polyps (K21.9) Gastroesophageal reflux disease, unspecified whether esophagitis present (R11.0) Nausea (R19.8) Change in bowel movement Portions of this documentation were copied and pasted from previous office visit notes in order to provide a cohesive continuity of the history. The note has been reviewed and edited and updated as necessary. Blanca Landis APRN.HAND SCRAPER documented in this encounter [facility] 01-12-2025 Note HNO ID: [id number] Author: BLANAC LANDIS APRN.LUZ ELENA Service: ? Author Type: Nurse Practitioner Type: Progress Notes Filed: 01/12/2025 10:52 Note Text: HISTORY AND PHYSICAL Vinod Ann : 1975 REFERRING PHYSICIAN: No referring provider defined for this encounter. CHIEF COMPLAINT: Patient presents with: Consult: colonoscopy HPI: Vinod is a 49 year old female referred for endoscopy. Vinod notes soft stools 6 on the br[place]ol stool chart. Vinod notes abdominal pain. Some mild abdominal cramping prior to BM Vinod notes diarrhea. Vinod denies constipation. Vinod notes a change in bowel habits. Vinod denies melena. Vinod denies bright red blood per rectum. Vinod denies hemorrhoids. Vinod denies family history of colon issues. Vinod notes heartburn. -regurgitation into her mouth -relieved with drinking liquid -can be painful at times -taking Prilosec AND pepcid Vinod denies dysphagia. Vinod denies a history of ulcers/ peptic ulcer disease. 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 Denies CP, SOB, dizziness, palpitations, syncope, edema, recent hospitalizations Vinod has undergone prior endoscopy. Last colonoscopy was 09/[address] Carrillo at [facility]. Sedation:Midazolam 7 mg IV, Fentanyl 100 micrograms IV, Diphenhydramine 50 mg IV Impression: - Non-bleeding internal hemorrhoids. - Diverticulosis in the sigmoid colon, in the descending colon and in the ascending colon. - One 4 to 7 mm polyp in the descending colon, removed with a cold snare. Resected and retrieved. FINAL DIAGNOSIS Left colon, polypectomy: - Fragments of tubular adenoma. Current Outpatient Medications Medication Sig acetaminophen (TYLENOL EXTRA STRENGTH) 500 mg tablet Take 1,000 mg by mouth every 8 hours as needed for pain. famotidine (PEPCID) 40 mg tablet Take 1 tablet by mouth daily at bedtime. famotidine (PEPCID) 40 mg tablet Take 1 tablet by mouth daily at bedtime. aspirin 81 mg cap Take 81 mg by mouth once daily. prazosin (MINIPRESS) 2 mg cap Take 1 capsule by mouth daily at bedtime. mirtazapine (REMERON) 45 mg tablet Take 1 tablet by mouth daily at bedtime. rosuvastatin (CRESTOR) 10 mg tablet Take 1 tablet by mouth once daily. cloNIDine HCl (CATAPRES) 0.1 mg tablet Take 1 tablet by mouth once daily. ARIPiprazole (ABILIFY) 30 mg tablet Take 1 tablet by mouth once daily. rivaroxaban (XARELTO) 20 mg tablet Take 1 tablet by mouth once daily. ergocalciferol 50,000 unit capsule (VITAMIN D2, DRISDOL) Take 1 capsule by mouth one time a week. cilostazol (PLETAL) 100 mg tablet Take 1 tablet by mouth two times a day. folic acid 1 mg tablet Take 1 tablet by mouth once daily. fluticasone (FLONASE) 50 mcg/actuation nasal spray Use 1 [place] in the nose as needed. albuterol HFA (PROVENTIL HFA, VENTOLIN HFA) 90 mcg/actuation inhaler Inhale 2 Puffs as instructed every 6 hours as needed. amLODIPine (NORVASC) 2.5 mg tablet Take 1 tablet by mouth once daily. oxybutynin ER (DITROPAN XL) 10 mg 24 hr tablet Take 1 tablet by mouth once daily. omeprazole (PRILOSEC) 40 mg capsule Take 1 capsule by mouth once daily. peg 3350-Electrolytes (GOLYTELY) 236-22.74-6.74 -5.86 gram suspension Take 4,000 mL by mouth one time only for 1 dose. Refer to printed prep instructions from your provider. No current facility-administered medications for this visit. 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 02/15 with of mother Severe episode of recurrent major depressive disorder, without psychotic features (HCC) Kendra Padilla Suicidal ideation PAST SURGICAL HISTORY Procedure Laterality Date ABDOMINAL SURGERY HX BREAST SURGERY HX BX OF BREAST; INCISIONAL Left 08/29/2019 [place] [facility]- Benign COLONOSCOPY 09/22/2022 COLONOSCOPY FLX DX W/COLLJ SPEC WHEN PFRMD 12/01/2019 Colonoscopy PAST SURGICAL HISTORY OF 03/2010 gall bladder removed PAST SURGICAL HISTORY OF Left wrist surgery when she was 15 years old PAST SURGICAL HISTORY OF 2013 tubal ligation PAST SURGICAL HISTORY OF 02/2022 bilateral cyst removed, [place] FAMILY HISTORY Problem Relation Age of Onset Lung Cancer Mother at 63 Osteoporosis Mother Alcohol/Drug Mother alcohol Hypertension Father Alcohol/Drug Father alcohol Aneurysm Father abdominal Prostate Cancer Father Al (more content not included)... [facility] 01-09-2025 Telephone encounter Note Called patient to provide below results. No response. Left VM . Liana Polanco LPN [facility] 01-09-2025 Telephone encounter Note ----- Message from Torri Patel sent at 01/08/2025 10:32 PM EST ----- Please call patient to inform her that her circulation is adequate to the left foot. To the toes, the circulation in the right foot is decreased. If she were interested in toenail removal, would recommend vascular evaluation first Torri Patel DPM [facility] 01-08-2025 Note HNO ID: [id number] Author: FRANCO ROBLERO MD Service: ? Author Type: Physician Type: Progress Notes Filed: 01/08/2025 20:29 Note Text: FOLLOW UP VISIT NAME: Vinod Paris [facility] NO.: [id number] DATE OF SERVICE: January 07, 2025 : 1975 REFERRING PHYSICIAN: Isatu Nieto MD Vinod is a patient I am following for history of left breast abscesses. I had last seen Vinod on April 04, 2024. At that time I noted: The patient is a 49 year old female with a complaint of a palpable breast mass. The patient notes a mass in the retroaerolar portion to slightly medial area of her left breast. The patient has noticed this mass for a long time. The patient had a mammogram and ultrasound obtained the the [facility] on February 21, 2024 which demonstrated: IMPRESSION: Finding 1 Masses in both breasts are benign. Finding 2 Irregular mass in the left breast at 9 o'clock, 2 cm from the nipple is suspicious. It extends into the nipple. An ultrasound guided biopsy is recommended. Finding 3 Abnormal lymph node in the left axilla is suspicious. An ultrasound guided biopsy is recommended. I discussed the findings and results with the patient over the phone at the time of the interpretation. The Breast Center Navigator will consult with the patient regarding the recommendations including Breast Clinic referral recommendation. An Epic message with the recommendations of Breast Surgery Clinic referral and breast biopsy will be submitted by the Breast Center Navigator to Makayla Morley on 02/21/2024 at the time of interpretation. The Breast Center Navigator will schedule the appropriate appointments for the patient. Finding 4 Area of skin thickening in the right breast at 3 o'clock, 2 cm from the nipple is benign. BI-RADS Category 4: Suspicious I had seen this patient on August 16, 2023. At that time I noted: The patient is a 48 year old female with a complaint of nonhealing wound and discharge from her left nipple. The patient has a longstanding history of breast abscesses nipple discharge and infections. She has had multiple incision and drainage procedures of the left periareolar area. Most of these were performed at [facility] in [facility]. The patient is also seen Dr. Watson in the past. He advised against additional drainages when he saw the patient. The patient presents to multiple different ERs with these complaints. She states that after the most recent incision and drainage she has a chronic site which generally does not heal just along the medial aspect of her left nipple. She presented to [facility] emergency department ER with these complaints. Ultrasound of the breast was obtained which demonstrated no abscesses and no specific abnormalities. She followed up with Dr. Nieto. She noted some blood and pus draining from the nipple at that time. This was sent for culture returned as actinomyces. The patient was given doxycycline. She denies fever or chills. The patient is somewhat complicated history. She smokes 2 packs cigarettes a day. She snorts and smokes crystal methamphetamine. She had abstained from methamphetamine for the last 2 weeks when I had initially evaluated her in February. She has had issues with follow up and missing appointment. She notes chronic scabs with occasional drainage from sites on both medial nipple aerolar sites. SHe has not had breast imagine for some time. I noted at that time on exam: Left breast-no fluctuance or significant erythema. At the 9 o'clock position relative to the nipple areolar complex there is a scarred area with a small scab consistent with her previous multiple incisions. No drainage currently. Right breast - 3 oclock scab, also no fluctuance or drainage. Intraoffice ultrasound demonstrated no obvious abscess along that tract. There did appear to be multiple postsurgical changes/scarring in the area There appears to be a dilated duct under the right scab/drainage site. There is some retraction at the left site with no ultrasound abnormalities. I recommended mammogram and ultrasound which was ordered. The patient failed to have those studies and I understand moved to [place] where she had the above imaging. She has a history of PVD. She is on Xeralto and was planning to have a lower extremity non invasive study later this afternoon. The patient was followed by Dr. Raymundo Pisano in [facility]. The patient moved to [place] and was receiving close surgical care from him at that time. She had undergone a smaller excision of the central chronic abscess on September 26, 2024. There was poorly healing and then underwent a wider resection with excision of nipple/central lumpectomy on October 30, 2024. She initially had a wound VAC placed but was noting leakage and was basically switched from wound VAC to wet-to-dry dressings twice a day. She has moved back to the [facility] a (more content not included)... [facility] 01-08-2025 History of Present illness Narrative FOLLOW UP VISIT NAME: Vinod Paris [facility] NO.: [id number] DATE OF SERVICE: January 07, 2025 : 1975 REFERRING PHYSICIAN: Isatu Nieto MD Vinod is a patient I am following for history of left breast abscesses. I had last seen Vinod on April 04, 2024. At that time I noted: The patient is a 49 year old female with a complaint of a palpable breast mass. The patient notes a mass in the retroaerolar portion to slightly medial area of her left breast. The patient has noticed this mass for a long time. The patient had a mammogram and ultrasound obtained the the [facility] on February 21, 2024 which demonstrated: IMPRESSION: Finding 1 Masses in both breasts are benign. Finding 2 Irregular mass in the left breast at 9 o'clock, 2 cm from the nipple is suspicious. It extends into the nipple. An ultrasound guided biopsy is recommended. Finding 3 Abnormal lymph node in the left axilla is suspicious. An ultrasound guided biopsy is recommended. I discussed the findings and results with the patient over the phone at the time of the interpretation. The Breast Center Navigator will consult with the patient regarding the recommendations including Breast Clinic referral recommendation. An Epic message with the recommendations of Breast Surgery Clinic referral and breast biopsy will be submitted by the Breast Center Navigator to Makayla Morley on 02/21/2024 at the time of interpretation. The Breast Center Navigator will schedule the appropriate appointments for the patient. Finding 4 Area of skin thickening in the right breast at 3 o'clock, 2 cm from the nipple is benign. BI-RADS Category 4: Suspicious I had seen this patient on August 16, 2023. At that time I noted: The patient is a 48 year old female with a complaint of nonhealing wound and discharge from her left nipple. The patient has a longstanding history of breast abscesses nipple discharge and infections. She has had multiple incision and drainage procedures of the left periareolar area. Most of these were performed at [facility] in [facility]. The patient is also seen Dr. Watson in the past. He advised against additional drainages when he saw the patient. The patient presents to multiple different ERs with these complaints. She states that after the most recent incision and drainage she has a chronic site which generally does not heal just along the medial aspect of her left nipple. She presented to [facility] emergency department ER with these complaints. Ultrasound of the breast was obtained which demonstrated no abscesses and no specific abnormalities. She followed up with Dr. Nieto. She noted some blood and pus draining from the nipple at that time. This was sent for culture returned as actinomyces. The patient was given doxycycline. She denies fever or chills. The patient is somewhat complicated history. She smokes 2 packs cigarettes a day. She snorts and smokes crystal methamphetamine. She had abstained from methamphetamine for the last 2 weeks when I had initially evaluated her in February. She has had issues with follow up and missing appointment. She notes chronic scabs with occasional drainage from sites on both medial nipple aerolar sites. SHe has not had breast imagine for some time. I noted at that time on exam: Left breast-no fluctuance or significant erythema. At the 9 o'clock position relative to the nipple areolar complex there is a scarred area with a small scab consistent with her previous multiple incisions. No drainage currently. Right breast - 3 oclock scab, also no fluctuance or drainage. Intraoffice ultrasound demonstrated no obvious abscess along that tract. There did appear to be multiple postsurgical changes/scarring in the area There appears to be a dilated duct under the right scab/drainage site. There is some retraction at the left site with no ultrasound abnormalities. I recommended mammogram and ultrasound which was ordered. The patient failed to have those studies and I understand moved to [place] where she had the above imaging. She has a history of PVD. She is on Xeralto and was planning to have a lower extremity non invasive study later this afternoon. The patient was followed by Dr. Raymundo Pisano in [facility]. The patient moved to [place] and was receiving close surgical care from him at that time. She had undergone a smaller excision of the central chronic abscess on September 26, 2024. There was poorly healing and then underwent a wider resection with excision of nipple/central lumpectomy on October 30, 2024. She initially had a wound VAC placed but was noting leakage and was basically switched from wound VAC to wet-to-dry dressings twice a day. She has moved back to the [facility] and is asking if I can follow-up with her until the site heals. VITALS: Temperature 36.4 C (97.5 F), temperature source Temporal, last menstrual period 08/06/2020. On examination, the patient has a central left breast incision that was previously opened has fully epithelialized. Assessment IMPRESSION: Status post right central lumpectomy for chronic abscess. PLAN: If the patient notes any future problems Diagnoses: (N61.1) Breast abscess (primary encounter diagnosis) Return to Clinic: The patient is instructed to follow-up with me as needed Franco Roblero MD documented in this encounter [facility] 01-05-2025 Telephone encounter Note Patient calling in regards to below for any update on medication being called into pharmacy. Please assist [facility] 01-05-2025 Miscellaneous Notes Patient calling in regards to below for any update on medication being called into pharmacy. Please assist Patient last seen in August 2024. Samaria documented in this encounter [facility] 01-02-2025 Telephone encounter Note I have refilled requested after verifying with med list from recent PCP. There are many meds not asking to get refilled. Also when looking at meds recently filled at pharmacy it appears most of these were filled this past month. I just patient to double check what she needed. Thank you Milly Feliciano APRN.CNP [facility] 01-02-2025 Miscellaneous Notes I have refilled requested after verifying with med list from recent PCP. There are many meds not asking to get refilled. Also when looking at meds recently filled at pharmacy it appears most of these were filled this past month. I just patient to double check what she needed. Thank you Milly Feliciano APRN.LUZ ELENA Faxed received. Patient calls back and is asking if office received patient's med list from patient's previous PCP. Patient reports that Dr. Hodge's office faxed over information. Please review and advise, Belkis Mckeon RN Patient calling asking for multiple rx refills which are not correct on her current medication list. Amlodipine 5 mg once daily, Famotidine 40 mg one tablet at bedtime, Oxybutynin 15 mg one daily, other medications that are not on her list at all. She is going to call Michele and ask her former Dr to get her medication list faxed to Dr Nieto office. Pending medications did not complete rx needs completed. Please advise The patient has been identified by name and date of : Yes Caregiver verified no other encounters exist for this prescription request: Yes Caregiver confirmed with patient/requestor that no other refills are due, in the near future, with this provider at this time: Yes The last office visit in the department: 12/16/2024 Does the patient have a future office visit with this provider/department: Yes 03/17/2025 Requested Prescriptions Pending Prescriptions Disp Refills aspirin 81 mg cap Sig: Take 81 mg by mouth once daily. prazosin (MINIPRESS) 2 mg cap 90 capsule Sig: Take 1 capsule by mouth daily at bedtime. mirtazapine (REMERON) 45 mg tablet 90 tablet Sig: Take 1 tablet by mouth daily at bedtime. rosuvastatin (CRESTOR) 10 mg tablet 90 tablet Sig: Take 1 tablet by mouth once daily. cloNIDine HCl (CATAPRES) 0.1 mg tablet 90 tablet Sig: Take 1 tablet by mouth once daily. ARIPiprazole (ABILIFY) 20 mg tablet Sig: Take 1.5 tablets by mouth once daily. rivaroxaban (XARELTO) 20 mg tablet Sig: Take 1 tablet by mouth once daily. Claudia Kincaid LPN January 01, 2025 12:57 PM documented in this encounter [facility] 01-02-2025 Telephone encounter Note Faxed received. [facility] 01-02-2025 Telephone encounter Note Patient last seen in August 2024. Samaria [facility] 01-01-2025 Telephone encounter Note Patient calls back and is asking if office received patient's med list from patient's previous PCP. Patient reports that Dr. Hodge's office faxed over information. Please review and advise, Belkis Mckeon RN [facility] 01-01-2025 Telephone encounter Note Patient calling asking for multiple rx refills which are not correct on her current medication list. Amlodipine 5 mg once daily, Famotidine 40 mg one tablet at bedtime, Oxybutynin 15 mg one daily, other medications that are not on her list at all. She is going to call Michele and ask her former Dr to get her medication list faxed to Dr Nieto office. Pending medications did not complete rx needs completed. Please advise The patient has been identified by name and date of : Yes Caregiver verified no other encounters exist for this prescription request: Yes Caregiver confirmed with patient/requestor that no other refills are due, in the near future, with this provider at this time: Yes The last office visit in the department: 12/16/2024 Does the patient have a future office visit with this provider/department: Yes 03/17/2025 Requested Prescriptions Pending Prescriptions Disp Refills aspirin 81 mg cap Sig: Take 81 mg by mouth once daily. prazosin (MINIPRESS) 2 mg cap 90 capsule Sig: Take 1 capsule by mouth daily at bedtime. mirtazapine (REMERON) 45 mg tablet 90 tablet Sig: Take 1 tablet by mouth daily at bedtime. rosuvastatin (CRESTOR) 10 mg tablet 90 tablet Sig: Take 1 tablet by mouth once daily. cloNIDine HCl (CATAPRES) 0.1 mg tablet 90 tablet Sig: Take 1 tablet by mouth once daily. ARIPiprazole (ABILIFY) 20 mg tablet Sig: Take 1.5 tablets by mouth once daily. rivaroxaban (XARELTO) 20 mg tablet Sig: Take 1 tablet by mouth once daily. Claudia Kincaid LPN January 01, 2025 12:57 PM [facility] 01-01-2025 Note HNO ID: [id number] Author: BRANDO LOPEZ APRN.CNM Service: ? Author Type: German Professor Type: Progress Notes Filed: 01/01/2025 11:12 Note Text: Liaison Officer offered: Patient declines. Vinod is a 49 year old who presents for an annual gynecologic exam without complaints. Postmenopausal: Yes since age 39 HRT use: No. Age at Menarche: 10 Still get period: No Sexually active: No Contraception: Tubal Contraception frequency: Always HPV vaccine: N/A Last pap smear: 06/26/22 History of abnormal pap: Yes Colposcopy: Yes: Leep: Yes: Cone biopsy: No. Bothersome pelvic pain: No Last mammogram: 2023 Diag hx left biopsy History of abnormal mammogram: Yes Sexually active: No Hot flashes: Yes Night sweats: Yes Vaginal dryness: No Not sexually active for over 1 year OB History Gravida5 Para2 Term1 Preterm1 AB3 Living1 SAB3 IAB0 Ectopic0 Multiple0 Live Births1 Comment: One baby stillborn Lpn Cma History LMP: 08/06/2020, Postmenopausal Age at Menarche: Age at First : Age at Menopause: Lpn Cma History Comments: Sexual Activity: Not Currently; No partner data on record Contraception: No contraception data on record 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 02/15 with of mother Severe episode of recurrent major depressive disorder, without psychotic features (HCC) Kendra Padilla Suicidal ideation PAST SURGICAL HISTORY Procedure Laterality Date ABDOMINAL SURGERY HX BREAST SURGERY HX BX OF BREAST; INCISIONAL Left 08/29/2019 [facility]- Benign COLONOSCOPY 09/22/2022 COLONOSCOPY FLX DX W/COLLJ SPEC WHEN PFRMD 12/01/2019 Colonoscopy PAST SURGICAL HISTORY OF 03/2010 gall bladder removed PAST SURGICAL HISTORY OF Left wrist surgery when she was 15 years old PAST SURGICAL HISTORY OF 2013 tubal ligation PAST SURGICAL HISTORY OF 02/2022 bilateral cyst removed, [place] FAMILY HISTORY Problem Relation Age of Onset Lung Cancer Mother at 63 Osteoporosis Mother Alcohol/Drug Mother alcohol Hypertension Father Alcohol/Drug Father alcohol Aneurysm Father abdominal Prostate Cancer Father Alcohol/Drug Sister drugs other (Aids) Sister drug user Aneurysm Sister head Breast Cancer Paternal Grandmother late 50's or 60's Alcohol/Drug Niece Ovarian cancer Niece diagnosed young SOCIAL HISTORY Social History Tobacco Use Smoking status: Every Day Current packs/day: 1.00 Average packs/day: 2.0 packs/day for 37.2 years (73.7 ttl pk-yrs) Types: Cigarettes Start date: 1988 Smokeless tobacco: Never Vaping Use Vaping status: Former Substances: Nicotine, Flavoring Devices: Disposable Substance Use Topics Alcohol use: Not Currently Comment: quit , small relapse in 02/15 with of mother. Drug use: Not Currently Types: Crystal Meth Comment: Sober since 04/19/2024 REVIEW OF SYSTEMS Abdomen: No abdominal pain, nausea, vomiting, diarrhea, or constipation. No bloating, early satiety, indigestion, or increased flatulence. Bladder: POSITIVE FOR URGENCY< FREQUENCY and incontinence - mixed Breast: No breast lumps, nipple d/c, overlying skin changes, redness or skin retraction and recent removal of left nipple from cyst. Allergies and current medication updated:Yes SENSITIVE EXAM: The sensitive examination was discussed with the Patient or Patient's Authorized White Spooler. As applicable, any other physician, advance practice provider, medical student, or other health professional student that will be observing or involved in the sensitive examination for educational or training purposes was discussed with the Patient or Authorized White Spooler. The Patient or Authorized White Spooler has agreed to proceed with the sensitive examination. (Sensitive examination includes inspection and/or palpation of the breasts, pelvis, prostate and anorectal regions). EXAM: BP 132/70 Ht 5' 5 (1.65m) Wt 224 lb (101.6kg) LMP 08/06/2020 BMI 37.28 kg/(m2). GENERAL: pleasant, female in no apparent distress HEENT: Normocephalic and atraumatic NECK: Supple and full range of motion DERMATOLOGY: Normal and without lesions BREAST: soft, non-tender, symmetric, no dominant mass, normal nipple-areolar complex, no lymphadenopathy, no nipple discharge, and bandage on left nipple from recent cyst removal CHEST: Normal inspiratory effort ABDOMEN: soft, non-tender, no masses, and pannus large PELVIC: external genitalia normal, no vulvar lesions, no cervical lesions, normal appeari (more content not included)... [facility] 01-01-2025 History of Present illness Narrative Liaison Officer offered: Patient declines. Vinod is a 49 year old who presents for an annual gynecologic exam without complaints. Postmenopausal: Yes since age 39 HRT use: No. Age at Menarche: 10 Still get period: No Sexually active: No Contraception: Tubal Contraception frequency: Always HPV vaccine: N/A Last pap smear: 06/26/22 History of abnormal pap: Yes Colposcopy: Yes: Leep: Yes: Cone biopsy: No. Bothersome pelvic pain: No Last mammogram: 2023 Diag hx left biopsy History of abnormal mammogram: Yes Sexually active: No Hot flashes: Yes Night sweats: Yes Vaginal dryness: No Not sexually active for over 1 year OB History Gravida5 Para2 Term1 Preterm1 AB3 Living1 SAB3 IAB0 Ectopic0 Multiple0 Live Births1 Comment: One baby stillborn Lpn Cma History LMP: 08/06/2020, Postmenopausal Age at Menarche: Age at First : Age at Menopause: Lpn Cma History Comments: Sexual Activity: Not Currently; No partner data on record Contraception: No contraception data on record 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 02/15 with of mother Severe episode of recurrent major depressive disorder, without psychotic features ([facility]) Kendra Padilla Suicidal ideation PAST SURGICAL HISTORY Procedure Laterality Date ABDOMINAL SURGERY HX BREAST SURGERY HX BX OF BREAST; INCISIONAL Left 08/29/2019 [facility]- Benign COLONOSCOPY 09/22/2022 COLONOSCOPY FLX DX W/COLLJ SPEC WHEN PFRMD 12/01/2019 Colonoscopy PAST SURGICAL HISTORY OF 03/2010 gall bladder removed PAST SURGICAL HISTORY OF Left wrist surgery when she was 15 years old PAST SURGICAL HISTORY OF 2013 tubal ligation PAST SURGICAL HISTORY OF 02/2022 bilateral cyst removed, [place] FAMILY HISTORY Problem Relation Age of Onset Lung Cancer Mother at 63 Osteoporosis Mother Alcohol/Drug Mother alcohol Hypertension Father Alcohol/Drug Father alcohol Aneurysm Father abdominal Prostate Cancer Father Alcohol/Drug Sister drugs other (Aids) Sister drug user Aneurysm Sister head Breast Cancer Paternal Grandmother late 50's or 60's Alcohol/Drug Niece Ovarian cancer Niece diagnosed young SOCIAL HISTORY Social History Tobacco Use Smoking status: Every Day Current packs/day: 1.00 Average packs/day: 2.0 packs/day for 37.2 years (73.7 ttl pk-yrs) Types: Cigarettes Start date: 1988 Smokeless tobacco: Never Vaping Use Vaping status: Former Substances: Nicotine, Flavoring Devices: Disposable Substance Use Topics Alcohol use: Not Currently Comment: quit , small relapse in 02/15 with of mother. Drug use: Not Currently Types: Crystal Meth Comment: Sober since 04/19/2024 REVIEW OF SYSTEMS Abdomen: No abdominal pain, nausea, vomiting, diarrhea, or constipation. No bloating, early satiety, indigestion, or increased flatulence. Bladder: POSITIVE FOR URGENCY< FREQUENCY and incontinence - mixed Breast: No breast lumps, nipple d/c, overlying skin changes, redness or skin retraction and recent removal of left nipple from cyst. Allergies and current medication updated:Yes SENSITIVE EXAM: The sensitive examination was discussed with the Patient or Patient's Authorized White Spooler. As applicable, any other physician, advance practice provider, medical student, or other health professional student that will be observing or involved in the sensitive examination for educational or training purposes was discussed with the Patient or Authorized White Spooler. The Patient or Authorized White Spooler has agreed to proceed with the sensitive examination. (Sensitive examination includes inspection and/or palpation of the breasts, pelvis, prostate and anorectal regions). EXAM: BP 132/70 Ht 5' 5 (1.65m) Wt 224 lb (101.6kg) LMP 08/06/2020 BMI 37.28 kg/(m^2). GENERAL: pleasant, female in no apparent distress HEENT: Normocephalic and atraumatic NECK: Supple and full range of motion DERMATOLOGY: Normal and without lesions BREAST: soft, non-tender, symmetric, no dominant mass, normal nipple-areolar complex, no lymphadenopathy, no nipple discharge, and bandage on left nipple from recent cyst removal CHEST: Normal inspiratory effort ABDOMEN: soft, non-tender, no masses, and pannus large PELVIC: external genitalia normal, no vulvar lesions, no cervical lesions, normal appearing perineal body and perianal region, small sebaceous cyst on right groin area. No erythema- non tender to palpation BIMANUAL: uterus normal size, shape and consistency, no adnexal masses, non-tender, and no cervical motion tenderness RECTOVAGINAL: deferred. NEURO: alert and oriented x3,exam grossly non-focal EXTREMITIES: normal ASSESSMENT/PLAN: 1) Health maintenance: Pap/HPV up to date.- Last PAP was 2021- negative Mammogram up to date- Recent cyst removal from left breast Nutrition, exercise and routine health maintenance exams reviewed. Colon cancer screening: up to date with screening 2) Warm compresses to groin area cyst- watch for s/s of infection Consult to URO/RETAIL WORKER for urinary incontinence - PCP managing medications but patient was told to see specialist but never followed up. Follow up one year or sooner as needed Brando Lopez APRN.CNM documented in this encounter [facility] 12-31-2024 History of Present illness Narrative HISTORY AND PHYSICAL Vinod Paris Seth 1975 REFERRING PHYSICIAN: No ref. provider found CHIEF COMPLAINT: Left breast abscesses wound follow up My visit with Vinod was 12/03/24 HPI: The patient is a 49 year old female with a complaint of healing breast abscess. Vinod is a patient of Dr. Roblero that I am seeing today to check her left breast wound. She has had an extensive hx of left breast abscess including multiple I&Ds at multiple Eds & use of a wound VAC for healing after surgical intervention in [place] where she use to reside. I saw her last week with Dr. Roblero and the would is healing nicely. He instructed her to continuing with the wet to dry dressing and that he would expect this week she should be able to just place a dry dressing on the area. Vinod notes no concerns. She is using tylenol 1000mg TID for pain relief. She is changing the dressing BID & notes no concerns of infection, increased drainage, swelling, redness or pain. Patient's past medical history is significant for 2 ppd smoker, drug abuse, DVT & obesity. Vinod saw Dr. Roblero last week & it was noted that her wound was healing well with one area of hypertrophic granulation tissue that he treated with silver nitrate. Instructions were to continue with dry dressings until the wound is properly healed. My visit with Vinod on 12/2024 Today she presents for ongoing wound management. She notes no concerns. Pain is controlled. She notes she is changing her dressing daily. Denies signs of infection including fever, chills, increased redness,warmth, swelling, drainage or pain. Today Vinod presents for ongoing wound management. She has no concerns. Pain is controlled. She notes she is changing her dressing daily. Denies signs of infection including fever, chills, increased redness,warmth, swelling, drainage or esther Vitals: Temp: 36.6 C (97.9 F) Temp src: Temporal Exam: On examination the central left breast incision open wound has healthy appearing granulation tissue with no signs of infection. IMPRESSION: Status post left central lumpectomy for chronic abscess. PLAN: ASSESSMENT/PLAN: 1. Breast abscess - ICD9: 611.0, ICD10: N61.1 - Continue with dry dressings until the wound is properly healed. - Notify our office with any concerns of infection Discussed treatment plan and patient voices understanding. Patient's questions answered appropriately. Return to the office in one week. Blanca Landis APRN.CNP documented in this encounter [facility] 12-31-2024 Note HNO ID: [id number] Author: BLANCA LANDIS APRN.CNP Service: ? Author Type: Nurse Practitioner Type: Progress Notes Filed: 12/31/2024 10:58 Note Text: HISTORY AND PHYSICAL Vinod Paris Seth 1975 REFERRING PHYSICIAN: No ref. provider found CHIEF COMPLAINT: Left breast abscesses wound follow up My visit with Vinod was 12/03/24 HPI: The patient is a 49 year old female with a complaint of healing breast abscess. Vinod is a patient of Dr. Roblero that I am seeing today to check her left breast wound. She has had an extensive hx of left breast abscess including multiple IANDDs at multiple Eds AND use of a wound VAC for healing after surgical intervention in [place] where she use to reside. I saw her last week with Dr. Roblero and the would is healing nicely. He instructed her to continuing with the wet to dry dressing and that he would expect this week she should be able to just place a dry dressing on the area. Vinod notes no concerns. She is using tylenol 1000mg TID for pain relief. She is changing the dressing BID AND notes no concerns of infection, increased drainage, swelling, redness or pain. Patient's past medical history is significant for 2 ppd smoker, drug abuse, DVT AND obesity. Vinod saw Dr. Roblero last week AND it was noted that her wound was healing well with one area of hypertrophic granulation tissue that he treated with silver nitrate. Instructions were to continue with dry dressings until the wound is properly healed. My visit with Vinod on 12/2024 Today she presents for ongoing wound management. She notes no concerns. Pain is controlled. She notes she is changing her dressing daily. Denies signs of infection including fever, chills, increased redness,warmth, swelling, drainage or pain. Today Vinod presents for ongoing wound management. She has no concerns. Pain is controlled. She notes she is changing her dressing daily. Denies signs of infection including fever, chills, increased redness,warmth, swelling, drainage or esther Vitals: Temp: 36.6 ?C (97.9 ?F) Temp src: Temporal Exam: On examination the central left breast incision open wound has healthy appearing granulation tissue with no signs of infection. IMPRESSION: Status post left central lumpectomy for chronic abscess. PLAN: ASSESSMENT/PLAN: 1. Breast abscess - ICD9: 611.0, ICD10: N61.1 - Continue with dry dressings until the wound is properly healed. - Notify our office with any concerns of infection Discussed treatment plan and patient voices understanding. Patient's questions answered appropriately. Return to the office in one week. Blanca Landis APRN.[facility] 12-30-2024 Telephone encounter Note Prescription Refill Information The patient has been identified by name and date of : Yes Caregiver verified no other encounters exist for this prescription request: Yes Caregiver confirmed with patient/requestor that no other refills are due, in the near future, with this provider at this time: Yes The last office visit in the department: 12/16/24 Does the patient have a future office visit with this provider/department: Yes 03/17/25 Requested Prescriptions Pending Prescriptions Disp Refills famotidine (PEPCID) 40 mg tablet 30 tablet 0 Sig: Take 1 tablet by mouth daily at bedtime. ergocalciferol 50,000 unit capsule (VITAMIN D2, DRISDOL) 12 capsule 1 Sig: Take 1 capsule by mouth one time a week. Melita Klein LPN December 30, 2024 10:06 AM [facility] 12-30-2024 Miscellaneous Notes Prescription Refill Information The patient has been identified by name and date of : Yes Caregiver verified no other encounters exist for this prescription request: Yes Caregiver confirmed with patient/requestor that no other refills are due, in the near future, with this provider at this time: Yes The last office visit in the department: 12/16/24 Does the patient have a future office visit with this provider/department: Yes 03/17/25 Requested Prescriptions Pending Prescriptions Disp Refills famotidine (PEPCID) 40 mg tablet 30 tablet 0 Sig: Take 1 tablet by mouth daily at bedtime. ergocalciferol 50,000 unit capsule (VITAMIN D2, DRISDOL) 12 capsule 1 Sig: Take 1 capsule by mouth one time a week. Melita Klein LPN December 30, 2024 10:06 AM documented in this encounter [facility] 12-25-2024 History of Present illness Narrative HISTORY AND PHYSICAL Vinod Paris Seth 1975 REFERRING PHYSICIAN: No ref. provider found CHIEF COMPLAINT: Left breast abscesses wound follow up My last visit with Vinod was 12/03/24 HPI: The patient is a 49 year old female with a complaint of healing breast abscess. Vinod is a patient of Dr. Roblero that I am seeing today to check her left breast wound. She has had an extensive hx of left breast abscess including multiple I&Ds at multiple Eds & use of a wound VAC for healing after surgical intervention in [place] where she use to reside. I saw her last week with Dr. Roblero and the would is healing nicely. He instructed her to continuing with the wet to dry dressing and that he would expect this week she should be able to just place a dry dressing on the area. Vinod notes no concerns. She is using tylenol 1000mg TID for pain relief. She is changing the dressing BID & notes no concerns of infection, increased drainage, swelling, redness or pain. Patient's past medical history is significant for 2 ppd smoker, drug abuse, DVT & obesity. Vinod saw Dr. Roblero last week & it was noted that her wound was healing well with one area of hypertrophic granulation tissue that he treated with silver nitrate. Instructions were to continue with dry dressings until the wound is properly healed. Today she presents for ongoing wound management. She notes no concerns. Pain is controlled. She notes she is changing her dressing daily. Denies signs of infection including fever, chills, increased redness,warmth, swelling, drainage or pain. Vitals: BP: 106/70 Temp: 36.6 C (97.8 F) Temp src: Temporal Pulse: 104 Resp: 14 SpO2: 95 % Exam: On examination the central left breast incision open wound has healthy appearing granulation tissue with no signs of infection. I did not see any residual areas of hypergranulation tissue. IMPRESSION: Status post left central lumpectomy for chronic abscess. PLAN: ASSESSMENT/PLAN: 1. History of breast abscess - ICD9: V13.3, ICD10: Z87.2 - Continue with dry dressings until the wound is properly healed. - Notify our office with any concerns of infection Discussed treatment plan and patient voices understanding. Patient's questions answered appropriately. Return to the office in one week. Blanca Landis APRN.[facility] documented in this encounter [facility] 12-25-2024 Note HNO ID: [id number] Author: BLANCA LANDIS APRN.HAND SCRAPER Service: ? Author Type: Nurse Practitioner Type: Progress Notes Filed: 12/25/2024 09:42 Note Text: HISTORY AND PHYSICAL Vinod Raina Ann 1975 REFERRING PHYSICIAN: No ref. provider found CHIEF COMPLAINT: Left breast abscesses wound follow up My last visit with Vinod was 12/03/24 HPI: The patient is a 49 year old female with a complaint of healing breast abscess. Vinod is a patient of Dr. Roblero that I am seeing today to check her left breast wound. She has had an extensive hx of left breast abscess including multiple IANDDs at multiple Eds AND use of a wound VAC for healing after surgical intervention in [place] where she use to reside. I saw her last week with Dr. Roblero and the would is healing nicely. He instructed her to continuing with the wet to dry dressing and that he would expect this week she should be able to just place a dry dressing on the area. Vinod notes no concerns. She is using tylenol 1000mg TID for pain relief. She is changing the dressing BID AND notes no concerns of infection, increased drainage, swelling, redness or pain. Patient's past medical history is significant for 2 ppd smoker, drug abuse, DVT AND obesity. Vinod saw Dr. Roblero last week AND it was noted that her wound was healing well with one area of hypertrophic granulation tissue that he treated with silver nitrate. Instructions were to continue with dry dressings until the wound is properly healed. Today she presents for ongoing wound management. She notes no concerns. Pain is controlled. She notes she is changing her dressing daily. Denies signs of infection including fever, chills, increased redness,warmth, swelling, drainage or pain. Vitals: BP: 106/70 Temp: 36.6 ?C (97.8 ?F) Temp src: Temporal Pulse: 104 Resp: 14 SpO2: 95 % Exam: On examination the central left breast incision open wound has healthy appearing granulation tissue with no signs of infection. I did not see any residual areas of hypergranulation tissue. IMPRESSION: Status post left central lumpectomy for chronic abscess. PLAN: ASSESSMENT/PLAN: 1. History of breast abscess - ICD9: V13.3, ICD10: Z87.2 - Continue with dry dressings until the wound is properly healed. - Notify our office with any concerns of infection Discussed treatment plan and patient voices understanding. Patient's questions answered appropriately. Return to the office in one week. Blanca Landis APRN.[facility] 12-22-2024 Note Patient Outreach ( LMMN) VINOD ANN ([id number]) 1975 F Date Time Provider Department 12/22/24 [facility] During your visit today, we recorded the following information about you: Allergies As of Date: 12/22/2024 Noted Allergy Reaction CEPHALEXIN 02/26/2018 4 - Hives 6 - Diarrhea FENOFIBRATE 08/31/2019 14 - Other: See Comments Comments: Hives with GI upset (emesis) ZOLOFT (SERTRALINE HCL) 06/23/2013 4 - Hives 6 - Diarrhea ZYPREXA (OLANZAPINE) 04/04/2024 1 - Mental Status Change 4 - Hives CLINDAMYCIN 09/29/2019 4 - Hives Comments: States has take since with no issue 08/06/20. Elba Broussard MA Date Reviewed: 12/18/2024 Reviewed by: Liana Polanco LPN - Fully Assessed Visit Diagnosis:Tobacco abuse [Z72.0] Order(s):CONSULT [facility] [[id number]] Order #: [id number]: 1 FUTURE Prescriptions as of 12/25/2024 - acetaminophen (TYLENOL) 500 mg tablet Take 2 tablets by mouth every 8 hours as needed for pain. - cilostazol (PLETAL) 100 mg tablet Take 1 tablet by mouth two times a day. - cloNIDine HCl (CATAPRES) 0.1 mg tablet Take 1 tablet by mouth once daily. - famotidine (PEPCID) 40 mg tablet Take 1 tablet by mouth daily at bedtime. - ARIPiprazole (ABILIFY) 20 mg tablet Take 30 mg by mouth once daily. - mirtazapine (REMERON) 45 mg tablet Take 45 mg by mouth. - prazosin (MINIPRESS) 2 mg cap Take 2 mg by mouth daily at bedtime. - folic acid 1 mg tablet Take 1 tablet by mouth once daily. - fluticasone (FLONASE) 50 mcg/actuation nasal spray Use 1 [place] in the nose as needed. - albuterol HFA (PROVENTIL HFA, VENTOLIN HFA) 90 mcg/actuation inhaler Inhale 2 Puffs as instructed every 6 hours as needed. - rivaroxaban (XARELTO) 20 mg tablet Take 20 mg by mouth. - rosuvastatin (CRESTOR) 10 mg tablet Take 10 mg by mouth once daily. - aspirin 81 mg cap Take 81 mg by mouth once daily. - amLODIPine (NORVASC) 2.5 mg tablet Take 1 tablet by mouth once daily. - oxybutynin ER (DITROPAN XL) 10 mg 24 hr tablet Take 1 tablet by mouth once daily. - ergocalciferol 50,000 unit capsule (VITAMIN D2, DRISDOL) Take 1 capsule by mouth one time a week. - omeprazole (PRILOSEC) 40 mg capsule Take 1 capsule by mouth once daily. Problem List As Of Date 12/22/2024 Noted Resolved GERD (gastroesophageal reflux disease) [K21.9] 06/23/2013 Weight gain [R63.5] 06/23/2013 Other and unspecified hyperlipidemia [E78.5] 11/20/2014 Obesity (BMI 30-39.9) [E66.9] 11/20/2014 Anxiety state, unspecified [F41.1] 11/20/2014 Tobacco use disorder [F17.200] 11/18/2019 Breast abscess [N61.1] 08/06/2020 History of breast abscess [Z87.2] 12/17/2020 Family history of breast cancer [Z80.3] 12/17/2020 Breast mass, left [N63.20] 12/06/2021 Nipple discharge [N64.52] 12/06/2021 Alcohol abuse, in remission [F10.11] 03/24/2022 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HCC) [F19.11] 03/24/2022 Letter Text Encounter Status:Closed by Swif[employer]USER on 12/25/24 [facility] 12-18-2024 Note HNO ID: [id number] Author: LIANA POLANCO LPN Service: ? Author Type: LICENSED NURSE Type: Progress Notes Filed: 12/18/2024 22:03 Note Text: Per Vinod Warner was provided with powerstep gel inserts, size 10, and instructed/educated in its application, wear, and care. All questions were answered, and patient was able to demonstrate competence with the necessary skills to utilize the above equipment. Liana Polanco LPN [facility] 12-18-2024 History of Present illness Narrative Per Vinod Warner was provided with powerstep gel inserts, size 10, and instructed/educated in its application, wear, and care. All questions were answered, and patient was able to demonstrate competence with the necessary skills to utilize the above equipment. Liana Polanco LPN Images from the original note were not included. Consultation requested by Dr. Nieto for an opinion regarding foot pain. My final recommendations will be communicated back to the requesting physician by way of shared Medical record or letter to requesting physician via US mail. Initial Podiatric Office Visit: Chief Complaint: This 49 year old female who presents with chief complaint:bunions of both fifth toes. Also complains of ingrowing toenail HPI Patient presents to clinic for initial evaluation of b/l feet. Her greatest complaint is tailors bunion of b/l feet. The bunions have been an ongoing issue for years and has led to callus. Patient had been seeing another professor of radiology here in town who would file the callus down. She is no longer going there. She is not currently doing anything for the bunion. In addition to the bunion/callus, she complains of ingrowing toenails. She did have an ingrown toenail of right hallux that she states was trimmed out by the former professor of radiology, about 6 months ago. She complains of pain to her toenails. Patient is borderline diabetic. Patient smokes 1-1.5 packs of cigarettes/day. PAIN EVALUATION 12/18/2024 1104 Pain Level: 5 Pain Location: Other: See Comment bilateral Description: Aching;Dull Duration Amount of Time: 6 Duration Units: Months Frequency: Intermittent Intervention/Comfort measure: Reposition;Relaxation Hemoglobin A1C (%) Date Value 12/16/2024 6.1 03/27/2023 5.8 Hemoglobin A1C (POCT) (%) Date Value 08/17/2023 5.8 PCP: Isatu Nieto MD PAST MEDICAL HISTORY Diagnosis Date Anxiety state, unspecified 11/20/2014 Arthritis Bleeding stomach ulcer Breast infection in female bilateral reoccurant Delayed emergence from general anesthesia GERD (gastroesophageal reflux disease) Hiatal hernia 02/2015 Obesity (BMI 30-39.9) 11/20/2014 Other and unspecified hyperlipidemia 11/20/2014 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 cilostazol (PLETAL) 100 mg tablet Take 1 tablet by mouth two times a day. cloNIDine HCl (CATAPRES) 0.1 mg tablet Take 1 tablet by mouth once daily. famotidine (PEPCID) 40 mg tablet Take 1 tablet by mouth daily at bedtime. ARIPiprazole (ABILIFY) 20 mg tablet Take 30 mg by mouth once daily. mirtazapine (REMERON) 45 mg tablet Take 45 mg by mouth. prazosin (MINIPRESS) 2 mg cap Take 2 mg by mouth daily at bedtime. folic acid 1 mg tablet Take 1 tablet by mouth once daily. fluticasone (FLONASE) 50 mcg/actuation nasal spray Use 1 [place] in the nose as needed. albuterol HFA (PROVENTIL HFA, VENTOLIN HFA) 90 mcg/actuation inhaler Inhale 2 Puffs as instructed every 6 hours as needed. rivaroxaban (XARELTO) 20 mg tablet Take 20 mg by mouth. rosuvastatin (CRESTOR) 10 mg tablet Take 10 mg by mouth once daily. aspirin 81 mg cap Take 81 mg by mouth once daily. amLODIPine (NORVASC) 2.5 mg tablet Take 1 tablet by mouth once daily. oxybutynin ER (DITROPAN XL) 10 mg 24 hr tablet Take 1 tablet by mouth once daily. ergocalciferol 50,000 unit capsule (VITAMIN D2, DRISDOL) Take 1 capsule by mouth one time a week. omeprazole (PRILOSEC) 40 mg capsule Take 1 capsule by mouth once daily. No current facility-administered medications for this visit. ALLERGIES Allergen Reactions Cephalexin Hives, Diarrhea Fenofibrate Other: See Comments Hives with GI upset (emesis) Zoloft [Sertraline * Hives, Diarrhea Zyprexa [Olanzapine] Mental Status Change, Hives Clindamycin Hives States has take since with no issue 08/06/20. Elba Broussard MA PAST SURGICAL HISTORY Procedure Laterality Date ABDOMINAL SURGERY HX BREAST SURGERY HX BX OF BREAST; INCISIONAL Left 08/29/2019 [facility] COLONOSCOPY 09/22/2022 COLONOSCOPY FLX DX W/COLLJ SPEC WHEN PFRMD 12/01/2019 Colonoscopy PAST SURGICAL HISTORY OF 03/2010 gall bladder removed PAST SURGICAL HISTORY OF Left wrist surgery when she was 15 years old PAST SURGICAL HISTORY OF 2014 tubal ligation PAST SURGICAL HISTORY OF 02/2022 bilateral cyst removed, [place] FAMILY HISTORY Problem Relation Age of Onset Lung Cancer Mother at 63 Osteoporosis Mother Alcohol/Drug Mother alcohol Hypertension Father Alcohol/Drug Father alcohol Aneurysm Father abdominal Prostate Cancer Father Alcohol/Drug Sister drugs other (Aids) Sister drug user Aneurysm Sister head Breast Cancer Paternal Grandmother late 50's or 60's Alcohol/Drug Niece Ovarian cancer Niece diagnosed young Social History Tobacco Use Smoking status: Every Day Current packs/day: 1.00 Average packs/day: 2.0 packs/day for 37.1 years (73.6 ttl pk-yrs) Types: Cigarettes Start date: 1987 Smokeless tobacco: Never Vaping Use Vaping status: Former Substances: Nicotine Substance Use Topics Alcohol use: Yes Comment: quit , small relapse in 02/15 with of mother. REVIEW OF SYSTEMS GENERAL: Negative for Malaise, significant weight loss, fever RESPIRATORY: Negative for cough, wheezing and shortness of breath CARDIOVASCULAR: Negative for chest pain, leg swelling and palpitations GI: Negative for abdominal discomfort, blood in stools or black stools and change in bowel habits : Negative for dysuria, frequency and incontinence MUSCULOSKELETAL: Negative for joint pain or swelling, back pain, and muscle pain. SKIN: Negative for lesions, rash, and itching. HEMATOLOGY/LYMPHOLOGY Negative for prolonged bleeding, bruising easily, and swollen nodes. ENDOCRINE: Negative for cold or heat intolerance, polyuria, polydipsia and goiter. NEURO: negative Physical Exam: Constitutional: Pt is a well developed 49 year old female who is alert, oriented and cooperative Eyes: Following during examination. No redness or drainage. Respiratory: RR normal and nonlabored. Even breathing. No evidence of distress or shortness of breath. Psychology: Patient is engaged during conversation. Normal affect and mood. Does not appear depressed or anxious during encounter. Vascular: Dorsalis pedis and posterior tibial pulses faintly palpable left and nonpalpable right. Capillary Fill time < 5 seconds to digits 1-5 b/l Skin temperature warm to cool proximal to distal b/l Hair growth present to digits On the right side, 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, with an ankle-brachial index of 0.89 with the biphasic ankle Doppler tracings diminished but adequate flow to the metatarsal area, but patient is significantly diminished pulse volume recordings over the toes almost flat On the left side, normal ankle arm index, normal triphasic ankle Doppler tracings, and good arterial flow to the foot and the toes based upon the pulse volume recordings Exam End: 12/14/23 12:53 PM Last Resulted: 12/14/23 3:09 PM Received From: [facility] Neurological: intact light touch/epicritic sensation Vibratory sensation intact b/l intact protective sensation no significant neurological deficits Dermatological: Nails 1-5 b/l appear yellow, discolored, dystrophic, painful. Webspaces clean and dry 1-4 b/l. Skin appears well hydrated and supple. good color, texture, turgor. No open lesions present. No callosities present. Musculoskeletal/Orthopaedic: Patient has pain to palpation of b/l 5th metatarsal at site of tailors bunion Foot type is neutral structurally AJ ROM is full with knee extended and flexed 1st MPJ is full when loaded and no pain or crepitus are noted with ROM. MTJ, STJ are full and free of pain and crepitus. +5/5 muscle strength dorsiflexion, plantarflexion, inversion, eversion b/l Radiographs: 3 views b/l foot ordered December 18, 2024: I have personally reviewed and interpreted these XR myself: small tailors bunion ASSESSMENT: (M21.621, M21.622) Tailor's bunion of both feet (primary encounter diagnosis) (R09.89) Diminished pulses in lower extremity (L60.3) Onychodystrophy Pain in toe. PLAN: 1. History and physical examination performed. 2. XR reviewed with patient and interpreted today 3. Discussed tailors bunion of b/l feet. Recommend wider shoes. Will provide patient with gel powerstep inserts. Discussed surgical options for tailors bunion but given her history of smoking combined with arterial disease, I would suggest conservative care 4. Toenails 1-5 b/l debrided in length and thickness. Could consider removal but with small vessel disease, would treat with conservative management. 5. Pvr ordered Torri Patel DPM Podiatry [address] [facility] [address] Dept: [phone] Dept AMB ROOMING INTAKE FLOWSHEET DATA Pain Pain Level: 5 Pain Location: Other: See Comment (bilateral) Description: Aching, Dull Duration Amount of Time: 6 Duration Units: Months Frequency: Intermittent Intervention/Comfort measure: Reposition, Relaxation Patient presents with: Left Foot - New, Pain Right Foot - New, Pain Right Great Toe - New, Ingrown Toenail, Pain Liana Polanco LPN documented in this encounter [facility] 12-18-2024 Instructions Torri Patel - 12/18/2024 11:34 AM EST Powerstep Original Full length. Can purchase at [facility] [employer] and boots,shoes and more here in [place], [employer] in [place] or [place]. Also can find in [place] in [facility]. Powersteps can also be purchased online, starting around $45.00 If you have a metatarsal or dancer pad for your feet apply the pad directly to the insole so you can interchange between your shoes. Find a shoe with a removable insole and take this out and replace with your powerstep insole. Always bring powersteps with you when shopping for shoes so that you can make sure that everything fits well together documented in this encounter [facility] 12-18-2024 Note HNO ID: [id number] Author: TORRI PATEL, ? Service: ? Author Type: Physician Type: Progress Notes Filed: 12/18/2024 22:03 Note Text: Consultation requested by Dr. Nieto for an opinion regarding foot pain. My final recommendations will be communicated back to the requesting physician by way of shared Medical record or letter to requesting physician via US mail. Initial Podiatric Office Visit: Chief Complaint: This 49 year old female who presents with chief complaint:bunions of both fifth toes. Also complains of ingrowing toenail HPI Patient presents to clinic for initial evaluation of b/l feet. Her greatest complaint is tailors bunion of b/l feet. The bunions have been an ongoing issue for years and has led to callus. Patient had been seeing another professor of radiology here in town who would file the callus down. She is no longer going there. She is not currently doing anything for the bunion. In addition to the bunion/callus, she complains of ingrowing toenails. She did have an ingrown toenail of right hallux that she states was trimmed out by the former professor of radiology, about 6 months ago. She complains of pain to her toenails. Patient is borderline diabetic. Patient smokes 1-1.5 packs of cigarettes/day. PAIN EVALUATION 12/18/2024 1104 Pain Level: 5 Pain Location: Other: See Comment bilateral Description: Aching;Dull Duration Amount of Time: 6 Duration Units: Months Frequency: Intermittent Intervention/Comfort measure: Reposition;Relaxation Hemoglobin A1C (%) Date Value 12/16/2024 6.1 03/27/2023 5.8 Hemoglobin A1C (POCT) (%) Date Value 08/17/2023 5.8 PCP: Isatu Nieto MD PAST MEDICAL HISTORY Diagnosis Date Anxiety state, unspecified 11/20/2014 Arthritis Bleeding stomach ulcer Breast infection in female bilateral reoccurant Delayed emergence from general anesthesia GERD (gastroesophageal reflux disease) Hiatal hernia 02/2015 Obesity (BMI 30-39.9) 11/20/2014 Other and unspecified hyperlipidemia 11/20/2014 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 cilostazol (PLETAL) 100 mg tablet Take 1 tablet by mouth two times a day. cloNIDine HCl (CATAPRES) 0.1 mg tablet Take 1 tablet by mouth once daily. famotidine (PEPCID) 40 mg tablet Take 1 tablet by mouth daily at bedtime. ARIPiprazole (ABILIFY) 20 mg tablet Take 30 mg by mouth once daily. mirtazapine (REMERON) 45 mg tablet Take 45 mg by mouth. prazosin (MINIPRESS) 2 mg cap Take 2 mg by mouth daily at bedtime. folic acid 1 mg tablet Take 1 tablet by mouth once daily. fluticasone (FLONASE) 50 mcg/actuation nasal spray Use 1 [place] in the nose as needed. albuterol HFA (PROVENTIL HFA, VENTOLIN HFA) 90 mcg/actuation inhaler Inhale 2 Puffs as instructed every 6 hours as needed. rivaroxaban (XARELTO) 20 mg tablet Take 20 mg by mouth. rosuvastatin (CRESTOR) 10 mg tablet Take 10 mg by mouth once daily. aspirin 81 mg cap Take 81 mg by mouth once daily. amLODIPine (NORVASC) 2.5 mg tablet Take 1 tablet by mouth once daily. oxybutynin ER (DITROPAN XL) 10 mg 24 hr tablet Take 1 tablet by mouth once daily. ergocalciferol 50,000 unit capsule (VITAMIN D2, DRISDOL) Take 1 capsule by mouth one time a week. omeprazole (PRILOSEC) 40 mg capsule Take 1 capsule by mouth once daily. No current facility-administered medications for this visit. ALLERGIES Allergen Reactions Cephalexin Hives, Diarrhea Fenofibrate Other: See Comments Hives with GI upset (emesis) Zoloft [Sertraline * Hives, Diarrhea Zyprexa [Olanzapine] Mental Status Change, Hives Clindamycin Hives States has take since with no issue 08/06/20. Elba Broussard MA PAST SURGICAL HISTORY Procedure Laterality Date ABDOMINAL SURGERY HX BREAST SURGERY HX BX OF BREAST; INCISIONAL Left 08/29/2019 [facility]- Benign COLONOSCOPY 09/22/2022 COLONOSCOPY FLX DX W/COLLJ SPEC WHEN PFRMD 12/01/2019 Colonoscopy PAST SURGICAL HISTORY OF 03/2010 gall bladder removed PAST SURGICAL HISTORY OF Left wrist surgery when she was 15 years old PAST SURGICAL HISTORY OF 2014 tubal ligation PAST SURGICAL HISTORY OF 02/2022 bilateral cyst removed, [place] FAMILY HISTORY Problem Relation Age of Onset Lung Cancer Mother at 63 Osteoporosis Mother Alcohol/Drug Mother alcohol Hypertension Father Alcohol/Drug Father alcohol Aneurysm Father abdominal Prostate Cancer Father Alcohol/Drug Sister drugs other (Aids) Sister drug user Aneurysm Sister head Breast Cancer Paternal Grandmother late 50's or 60's Alcohol/Drug Niece Ovarian cancer Niece diagnosed young Social Histor (more content not included)... [facility] 12-18-2024 History of Present illness Narrative Radiology Service Progress Note PATIENT NAME: Vinod Ann DATE OF SERVICE: December 18, 2024 TIME: 11:49 AM PATIENT IDENTITY VERIFICATION COMPLETED USING TWO (2) IDENTIFIERS: Name and Date of confirmed by patient verbally. FALL SCREENING: Has the patient had 2 falls in the last year or 1 fall with injury or currently using an Ambulatory Assistive Device (Walker, Cane, Wheelchair, Crutches, etc.)? No PATIENT GENDER DATA: Assigned female at . status: : No status: NO. PATIENT RELEVANT IMPLANT DATA REVIEWED: Not Applicable PATIENT PRESENTS WITH AN IMPLANTABLE OR ATTACHED PHYSICAL THERAPY ATTENDANT: No RADIOLOGY DEPARTMENT: General X-ray: Exam(s) Completed: Lower Extremity X-Ray(s): Feet, Bilateral and Wt. Bearing PERIPHERAL IV DATA: Not applicable SIGNED BY: RT Arlene(Donny) December 18, 2024 11:49 AM documented in this encounter [facility] 12-18-2024 Note HNO ID: [id number] Author: RACHAEL ALVAREZ RT(R) Service: ? Author Type: Technologist Type: Progress Notes Filed: 12/18/2024 11:50 Note Text: Radiology Service Progress Note PATIENT NAME: Vinod Ann DATE OF SERVICE: December 18, 2024 TIME: 11:49 AM PATIENT IDENTITY VERIFICATION COMPLETED USING TWO (2) IDENTIFIERS: Name and Date of confirmed by patient verbally. FALL SCREENING: Has the patient had 2 falls in the last year or 1 fall with injury or currently using an Ambulatory Assistive Device (Walker, Cane, Wheelchair, Crutches, etc.)? No PATIENT GENDER DATA: Assigned female at . status: : No status: NO. PATIENT RELEVANT IMPLANT DATA REVIEWED: Not Applicable PATIENT PRESENTS WITH AN IMPLANTABLE OR ATTACHED PHYSICAL THERAPY ATTENDANT: No RADIOLOGY DEPARTMENT: General X-ray: Exam(s) Completed: Lower Extremity X-Ray(s): Feet, Bilateral and Wt. Bearing PERIPHERAL IV DATA: Not applicable SIGNED BY: RT Arlene(Donny) December 18, 2024 11:49 AM [facility] 12-18-2024 Note HNO ID: [id number] Author: LIANA POLANCO LPN Service: ? Author Type: LICENSED NURSE Type: Progress Notes Filed: 12/18/2024 22:03 Note Text: AMB ROOMING INTAKE FLOWSHEET DATA Pain Pain Level: 5 Pain Location: Other: See Comment (bilateral) Description: Aching, Dull Duration Amount of Time: 6 Duration Units: Months Frequency: Intermittent Intervention/Comfort measure: Reposition, Relaxation Patient presents with: Left Foot - New, Pain Right Foot - New, Pain Right Great Toe - New, Ingrown Toenail, Pain Liana Polanco LPN [facility] 12-17-2024 Telephone encounter Note Called and spoke to Vinod updated on results. Voiced understanding. Jensen Jackman LPN December 17, 2024 1:30 PM [facility] 12-17-2024 Miscellaneous Notes Called and spoke to Vinod, updated on results. Voiced understanding. Jensen Jackman LPN December 17, 2024 1:30 PM ----- Message from Isatu Nieto MD sent at 12/17/2024 12:23 PM EST ----- Vit d, vit b12 are normal,. He hba1c is increasing which means she is moving towards being diabetic although she is not one now. Needs to reduce 7 percent of body weight and exercise 30 mins moderate intensity to reverse/ delay progression to diabetes Regards, Isatu Nieto MD documented in this encounter [facility] 12-17-2024 Telephone encounter Note ----- Message from Isatu Nieto MD sent at 12/17/2024 12:23 PM EST ----- Vit d, vit b12 are normal,. He hba1c is increasing which means she is moving towards being diabetic although she is not one now. Needs to reduce 7 percent of body weight and exercise 30 mins moderate intensity to reverse/ delay progression to diabetes Regards, Isatu Nieto MD [facility] 12-17-2024 History of Present illness Narrative FOLLOW UP VISIT NAME: Vinod Paris [facility] NO.: [id number] DATE OF SERVICE: December 17, 2024 : 1975 REFERRING PHYSICIAN: Isatu Nieto MD Vinod is a patient I am following for history of left breast abscesses. I had last seen Vinod on April 04, 2024. At that time I noted: The patient is a 49 year old female with a complaint of a palpable breast mass. The patient notes a mass in the retroaerolar portion to slightly medial area of her left breast. The patient has noticed this mass for a long time. The patient had a mammogram and ultrasound obtained the [facility] on February 21, 2024 which demonstrated: IMPRESSION: Finding 1 Masses in both breasts are benign. Finding 2 Irregular mass in the left breast at 9 o'clock, 2 cm from the nipple is suspicious. It extends into the nipple. An ultrasound guided biopsy is recommended. Finding 3 Abnormal lymph node in the left axilla is suspicious. An ultrasound guided biopsy is recommended. I discussed the findings and results with the patient over the phone at the time of the interpretation. The Breast Center Navigator will consult with the patient regarding the recommendations including Breast Clinic referral recommendation. An Epic message with the recommendations of Breast Surgery Clinic referral and breast biopsy will be submitted by the Breast Center Navigator to Makayla Morley on 02/21/2024 at the time of interpretation. The Breast Center Navigator will schedule the appropriate appointments for the patient. Finding 4 Area of skin thickening in the right breast at 3 o'clock, 2 cm from the nipple is benign. BI-RADS Category 4: Suspicious I had seen this patient on August 16, 2023. At that time I noted: The patient is a 48 year old female with a complaint of nonhealing wound and discharge from her left nipple. The patient has a longstanding history of breast abscesses nipple discharge and infections. She has had multiple incision and drainage procedures of the left periareolar area. Most of these were performed at [facility] in [facility]. The patient is also seen Dr. Watson in the past. He advised against additional drainages when he saw the patient. The patient presents to multiple different ERs with these complaints. She states that after the most recent incision and drainage she has a chronic site which generally does not heal just along the medial aspect of her left nipple. She presented to [facility] emergency department ER with these complaints. Ultrasound of the breast was obtained which demonstrated no abscesses and no specific abnormalities. She followed up with Dr. Nieto. She noted some blood and pus draining from the nipple at that time. This was sent for culture returned as actinomyces. The patient was given doxycycline. She denies fever or chills. The patient is somewhat complicated history. She smokes 2 packs cigarettes a day. She snorts and smokes crystal methamphetamine. She had abstained from methamphetamine for the last 2 weeks when I had initially evaluated her in February. She has had issues with follow up and missing appointment. She notes chronic scabs with occasional drainage from sites on both medial nipple aerolar sites. SHe has not had breast imagine for some time. I noted at that time on exam: Left breast-no fluctuance or significant erythema. At the 9 o'clock position relative to the nipple areolar complex there is a scarred area with a small scab consistent with her previous multiple incisions. No drainage currently. Right breast - 3 oclock scab, also no fluctuance or drainage. Intraoffice ultrasound demonstrated no obvious abscess along that tract. There did appear to be multiple postsurgical changes/scarring in the area There appears to be a dilated duct under the right scab/drainage site. There is some retraction at the left site with no ultrasound abnormalities. I recommended mammogram and ultrasound which was ordered. The patient failed to have those studies and I understand moved to [place] where she had the above imaging. She has a history of PVD. She is on Xeralto and was planning to have a lower extremity non invasive study later this afternoon. The patient was followed by Dr. Raymundo Pisano in [facility]. The patient moved to [place] and was receiving close surgical care from him at that time. She had undergone a smaller excision of the central chronic abscess on September 26, 2024. There was poorly healing and then underwent a wider resection with excision of nipple/central lumpectomy on October 30, 2024. She initially had a wound VAC placed but was noting leakage and was basically switched from wound VAC to wet-to-dry dressings twice a day. She has moved back to the [place] area and is asking if I can follow-up with her until the site heals. VITALS: Last menstrual period 08/06/2020. On examination, the patient has a central left breast incision open wound with healthy appearing granulation tissue with no signs of infection. There was an area of hypertrophic granulation tissue that was treated with silver nitrate Assessment IMPRESSION: Status post right central lumpectomy for chronic abscess. PLAN: If the patient notes any problems or signs of worsening infection fever or purulent drainage, the patient should contact me immediately. Otherwise, she should continue to dry dressing as the site appears to be healed properly. Diagnoses: (Z87.2) History of breast abscess (primary encounter diagnosis) Return to Clinic: The patient is instructed to follow-up with Lamar Landis in 1 week Franco Roblero MD documented in this encounter [facility] 12-17-2024 Note HNO ID: [id number] Author: FRANCO ROBLERO MD Service: ? Author Type: Physician Type: Progress Notes Filed: 12/17/2024 12:35 Note Text: FOLLOW UP VISIT NAME: Vinod Paris [facility] NO.: [id number] DATE OF SERVICE: December 17, 2024 : 1975 REFERRING PHYSICIAN: Isatu Nieto MD Vinod is a patient I am following for history of left breast abscesses. I had last seen Vinod on April 04, 2024. At that time I noted: The patient is a 49 year old female with a complaint of a palpable breast mass. The patient notes a mass in the retroaerolar portion to slightly medial area of her left breast. The patient has noticed this mass for a long time. The patient had a mammogram and ultrasound obtained the [facility] on February 21, 2024 which demonstrated: IMPRESSION: Finding 1 Masses in both breasts are benign. Finding 2 Irregular mass in the left breast at 9 o'clock, 2 cm from the nipple is suspicious. It extends into the nipple. An ultrasound guided biopsy is recommended. Finding 3 Abnormal lymph node in the left axilla is suspicious. An ultrasound guided biopsy is recommended. I discussed the findings and results with the patient over the phone at the time of the interpretation. The Breast Center Navigator will consult with the patient regarding the recommendations including Breast Clinic referral recommendation. An Epic message with the recommendations of Breast Surgery Clinic referral and breast biopsy will be submitted by the Breast Center Navigator to Makayla Morley on 02/21/2024 at the time of interpretation. The Breast Center Navigator will schedule the appropriate appointments for the patient. Finding 4 Area of skin thickening in the right breast at 3 o'clock, 2 cm from the nipple is benign. BI-RADS Category 4: Suspicious I had seen this patient on August 16, 2023. At that time I noted: The patient is a 48 year old female with a complaint of nonhealing wound and discharge from her left nipple. The patient has a longstanding history of breast abscesses nipple discharge and infections. She has had multiple incision and drainage procedures of the left periareolar area. Most of these were performed at [facility] in [facility]. The patient is also seen Dr. Watson in the past. He advised against additional drainages when he saw the patient. The patient presents to multiple different ERs with these complaints. She states that after the most recent incision and drainage she has a chronic site which generally does not heal just along the medial aspect of her left nipple. She presented to [facility] emergency department ER with these complaints. Ultrasound of the breast was obtained which demonstrated no abscesses and no specific abnormalities. She followed up with Dr. Nieto. She noted some blood and pus draining from the nipple at that time. This was sent for culture returned as actinomyces. The patient was given doxycycline. She denies fever or chills. The patient is somewhat complicated history. She smokes 2 packs cigarettes a day. She snorts and smokes crystal methamphetamine. She had abstained from methamphetamine for the last 2 weeks when I had initially evaluated her in February. She has had issues with follow up and missing appointment. She notes chronic scabs with occasional drainage from sites on both medial nipple aerolar sites. SHe has not had breast imagine for some time. I noted at that time on exam: Left breast-no fluctuance or significant erythema. At the 9 o'clock position relative to the nipple areolar complex there is a scarred area with a small scab consistent with her previous multiple incisions. No drainage currently. Right breast - 3 oclock scab, also no fluctuance or drainage. Intraoffice ultrasound demonstrated no obvious abscess along that tract. There did appear to be multiple postsurgical changes/scarring in the area There appears to be a dilated duct under the right scab/drainage site. There is some retraction at the left site with no ultrasound abnormalities. I recommended mammogram and ultrasound which was ordered. The patient failed to have those studies and I understand moved to [place] where she had the above imaging. She has a history of PVD. She is on Xeralto and was planning to have a lower extremity non invasive study later this afternoon. The patient was followed by Dr. Raymundo Pisano in [facility]. The patient moved to [place] and was receiving close surgical care from him at that time. She had undergone a smaller excision of the central chronic abscess on September 26, 2024. There was poorly healing and then underwent a wider resection with excision of nipple/central lumpectomy on October 30, 2024. She initially had a wound VAC placed but was noting leakage and was basically switched from wound VAC to wet-to-dry dressings twice a day. She has moved back to the [facility] (more content not included)... [facility] 12-16-2024 Note HNO ID: [id number] Author: ISATU NIETO MD Service: ? Author Type: Physician Type: Progress Notes Filed: 12/16/2024 14:55 Note Text: CC: Patient presents with: Establish Care: Medication refills, re established, cardiology consult with [facility] Vinod Ann is a 48 year old female who presents today for follow up. Over the past few years has been seen inconsistent with visits and following up depending on if she is actively clean from drugs and alcohol or if she currently using. She has been doing meth and alcohol , has been clean for the past 8 months. She is in assisted living, transitional house, unit. She is satisfied with the place she is living. Her health is the main reason she wants to quit. She wants to get better, do better. Patient put her self in rehab, but her self in probation etc. Today she is concerned about PAD. She has symptoms of PAD which is aches and pains all over, she is sore and tender when she wakes. Patient notes she has been clean for months of her surgery. Recurrent breast abscesses. Seeing Dr. Roblero and the breast center, but lived in [facility].Had surgery in [place] by Matthew Lazar in [place]. She is seeing Dr Roblero tomorrow. Has upcoming imaging and follow up appointment with 09/04/23. Per patient he is going to cut out the breast ducts. Currently has scabs to bilateral breast but no fever, chills, redness, or drainage. She feels tired all the time, feels groggy. Feels like she has intermittent wheezing and non-productive cough over the past year. Wheezing will feel like it is on the right side and can be worse at night. States she saw a skip miner a few years ago without any concern for pulmonary disease. Is a current smoker and thinks maybe it was mainly occurring when smoking meth. Denies any fever chills, chest pressure, chest pain, shortness of breath or current edema. Has had intermittent dependant pedal edema in the past. Bp is normal she is amlodipine, and clonidine For DVTs she is taking the Xarelto and she did well with it. Prediabetes: Controlled with diet. Denies increase in thirst, hunger or urination. HPL: Reviewed test results with patient , takes medications regularly , does not report side effects. Conscious to avoid red meats, full fat dairy and its by products. Exercising 3 to 5 times a week. She is on prazosin for night tremors REVIEW OF SYSTEMS General: no fevers, no chills, no night sweats, no recurrent infections, no change in appetite, no change in energy, and no significant changes in weight Respiratory: See HPI Cardiovascular: no chest pain, no chest pressure, no palpitations, and no swelling GI: No nausea, vomiting, or diarrhea Endocrine: no fatigue, no polyuria, no polyphagia, and no polydipsia Neurologic: No headache, weakness, dizziness, memory loss, syncope. 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 02/15 with of mother Severe episode of recurrent major depressive disorder, without psychotic features (HCC) Kendra Padilla Suicidal ideation PAST SURGICAL HISTORY Procedure Laterality Date ABDOMINAL SURGERY HX BREAST SURGERY HX BX OF BREAST; INCISIONAL Left 08/29/2019 [facility]- Benign COLONOSCOPY 09/22/2022 COLONOSCOPY FLX DX W/COLLJ SPEC WHEN PFRMD 12/01/2019 Colonoscopy PAST SURGICAL HISTORY OF 03/2010 gall bladder removed PAST SURGICAL HISTORY OF Left wrist surgery when she was 15 years old PAST SURGICAL HISTORY OF 2013 tubal ligation PAST SURGICAL HISTORY OF 02/2022 bilateral cyst removed, [place] ALLERGIES Cephalexin, Fenofibrate, Zoloft [Sertraline Hcl], Zyprexa [Olanzapine], and Clindamycin MEDICATIONS acetaminophen (TYLENOL) 500 mg tablet Take 2 tablets by mouth every 8 hours as needed for pain. cilostazol (PLETAL) 100 mg tablet Take 1 tablet by mouth two times a day. cloNIDine HCl (CATAPRES) 0.1 mg tablet Take 1 tablet by mouth once daily. famotidine (PEPCID) 40 mg tablet Take 1 tablet by mouth daily at bedtime. ARIPiprazole (ABILIFY) 20 mg tablet Take 30 mg by mouth once daily. mirtazapine (REMERON) 45 mg tablet Take 45 mg by mouth. prazosin (MINIPRESS) 2 mg cap Take 2 mg by mouth daily at bedtime. folic acid 1 mg tablet Take 1 tablet by mouth once daily. fluticasone (FLONASE) 50 mcg/actuation nasal spray Use 1 [place] in the nose as needed. albuterol HFA (PROVENTIL HFA, VENTOLIN HFA) 90 mcg/actuation inhaler Inhale 2 Puffs as instructed every 6 hours as needed. rivaroxaban (XARELTO) 20 mg tablet Take 20 mg by mouth. (more content not included)... [facility] 12-16-2024 History of Present illness Narrative CC: Patient presents with: Establish Care: Medication refills, re established, cardiology consult with [facility] HPI Vinod Ann is a 48 year old female who presents today for follow up. Over the past few years has been seen inconsistent with visits and following up depending on if she is actively clean from drugs and alcohol or if she currently using. She has been doing meth and alcohol , has been clean for the past 8 months. She is in assisted living, transitional house, unit. She is satisfied with the place she is living. Her health is the main reason she wants to quit. She wants to get better, do better. Patient put her self in rehab, but her self in probation etc. Today she is concerned about PAD. She has symptoms of PAD which is aches and pains all over, she is sore and tender when she wakes. Patient notes she has been clean for months of her surgery. Recurrent breast abscesses. Seeing Dr. Roblero and the breast center, but lived in [facility].Had surgery in [place] by Matthew Lazar in [place]. She is seeing Dr Roblero tomorrow. Has upcoming imaging and follow up appointment with 09/04/23. Per patient he is going to cut out the breast ducts. Currently has scabs to bilateral breast but no fever, chills, redness, or drainage. She feels tired all the time, feels groggy. Feels like she has intermittent wheezing and non-productive cough over the past year. Wheezing will feel like it is on the right side and can be worse at night. States she saw a skip miner a few years ago without any concern for pulmonary disease. Is a current smoker and thinks maybe it was mainly occurring when smoking meth. Denies any fever chills, chest pressure, chest pain, shortness of breath or current edema. Has had intermittent dependant pedal edema in the past. Bp is normal she is amlodipine, and clonidine For DVTs she is taking the Xarelto and she did well with it. Prediabetes: Controlled with diet. Denies increase in thirst, hunger or urination. HPL: Reviewed test results with patient , takes medications regularly , does not report side effects. Conscious to avoid red meats, full fat dairy and its by products. Exercising 3 to 5 times a week. She is on prazosin for night tremors REVIEW OF SYSTEMS General: no fevers, no chills, no night sweats, no recurrent infections, no change in appetite, no change in energy, and no significant changes in weight Respiratory: See HPI Cardiovascular: no chest pain, no chest pressure, no palpitations, and no swelling GI: No nausea, vomiting, or diarrhea Endocrine: no fatigue, no polyuria, no polyphagia, and no polydipsia Neurologic: No headache, weakness, dizziness, memory loss, syncope. PAST MEDICAL HISTORY Diagnosis Date Anxiety state, unspecified 11/20/2014 Arthritis Bleeding stomach ulcer Breast infection in female bilateral reoccurant Delayed emergence from general anesthesia GERD (gastroesophageal reflux disease) Hiatal hernia 02/2015 Obesity (BMI 30-39.9) 11/20/2014 Other and unspecified hyperlipidemia 11/20/2014 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 , did have small relapse 02/15 with of mother Severe episode of recurrent major depressive disorder, without psychotic features ([facility]) Kendra Padilla Suicidal ideation PAST SURGICAL HISTORY Procedure Laterality Date ABDOMINAL SURGERY HX BREAST SURGERY HX BX OF BREAST; INCISIONAL Left 08/29/2019 [facility]- Benign COLONOSCOPY 09/22/2022 COLONOSCOPY FLX DX W/COLLJ SPEC WHEN PFRMD 12/01/2019 Colonoscopy PAST SURGICAL HISTORY OF 03/2010 gall bladder removed PAST SURGICAL HISTORY OF Left wrist surgery when she was 15 years old PAST SURGICAL HISTORY OF 2013 tubal ligation PAST SURGICAL HISTORY OF 02/2022 bilateral cyst removed, [place] ALLERGIES Cephalexin, Fenofibrate, Zoloft [Sertraline Hcl], Zyprexa [Olanzapine], and Clindamycin MEDICATIONS acetaminophen (TYLENOL) 500 mg tablet Take 2 tablets by mouth every 8 hours as needed for pain. cilostazol (PLETAL) 100 mg tablet Take 1 tablet by mouth two times a day. cloNIDine HCl (CATAPRES) 0.1 mg tablet Take 1 tablet by mouth once daily. famotidine (PEPCID) 40 mg tablet Take 1 tablet by mouth daily at bedtime. ARIPiprazole (ABILIFY) 20 mg tablet Take 30 mg by mouth once daily. mirtazapine (REMERON) 45 mg tablet Take 45 mg by mouth. prazosin (MINIPRESS) 2 mg cap Take 2 mg by mouth daily at bedtime. folic acid 1 mg tablet Take 1 tablet by mouth once daily. fluticasone (FLONASE) 50 mcg/actuation nasal spray Use 1 [place] in the nose as needed. albuterol HFA (PROVENTIL HFA, VENTOLIN HFA) 90 mcg/actuation inhaler Inhale 2 Puffs as instructed every 6 hours as needed. rivaroxaban (XARELTO) 20 mg tablet Take 20 mg by mouth. rosuvastatin (CRESTOR) 10 mg tablet Take 10 mg by mouth once daily. aspirin 81 mg cap Take 81 mg by mouth once daily. amLODIPine (NORVASC) 2.5 mg tablet Take 1 tablet by mouth once daily. oxybutynin ER (DITROPAN XL) 10 mg 24 hr tablet Take 1 tablet by mouth once daily. ergocalciferol 50,000 unit capsule (VITAMIN D2, DRISDOL) Take 1 capsule by mouth one time a week. omeprazole (PRILOSEC) 40 mg capsule Take 1 capsule by mouth once daily. Social History Tobacco Use Smoking status: Every Day Current packs/day: 2.00 Average packs/day: 2.0 packs/day for 29.0 years (58.0 ttl pk-yrs) Types: Cigarettes Smokeless tobacco: Never Vaping Use Vaping status: Former Substances: Nicotine Substance Use Topics Alcohol use: Yes Comment: quit , small relapse in 02/15 with of mother. PHYSICAL EXAM BP 117/75 Pulse 106 Ht 167 cm (5' 5.75) Wt 101.8 kg (224 lb 6.4 oz) LMP 08/06/2020 SpO2 94% BMI 36.50 kg/m General Appearance: well appearing, in no acute distress, alert Pysch: mood and affect broad and appropriate Skin: Skin color, texture, turgor normal for age; Eyes: conjunctiva pink and moist, no icterus, sclera white, non-injected Neck: Thyroid normal size and symmetric without palpable nodules, Neck supple, No adenopathy Oropharynx: posterior tongue with white patches Lymph nodes: No cervical lymphadenopathy and No supraclavicular lymphadenopathy Lungs: Lungs clear to auscultation. No wheezing, rhonchi, rales. Heart: RRR without murmur, gallop, or rubs. No ectopy Health maintenance reviewed with patient: Covid-19 Vaccine(1) Never done Lipid Screening due on 08/24/2019 Mammogram Screening due on 01/03/2023 Influenza Vaccine(1) due on 07/06/2023 Hepatitis B Vaccine(1 of 3 - 3-dose series) due on 10/18/2023 Pneumococcal Vaccine(2 - PCV) due on 10/18/2023 Diabetes Screening due on 03/27/2026 Pap Testing due on 06/26/2027 HPV Testing due on 06/26/2027 Colorectal Cancer Screening due on 09/22/2027 DTaP,Tdap,Td Vaccine(3 - Td or Tdap) due on 11/19/2028 Depression Assessment Completed Hepatitis C Screening Completed HIV Screening Completed DATA REVIEWED: No new labs ASSESSMENT/PLAN: 1. 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 PAD (peripheral artery disease) (HCC) - ICD9: 443.9, ICD10: I73.9 - CONSULT TO VASCULAR SURGERY 3. Vitamin B12 deficiency - ICD9: 266.2, ICD10: E53.8 - VITAMIN B12 - COMPREHENSIVE METABOLIC PANEL 4. Vitamin D deficiency - ICD9: 268.9, ICD10: E55.9 - VITAMIN D 25 HYDROXY 5. Weight gain - ICD9: 783.1, ICD10: R63.5 - THYROID STIMULATING HORMONE 6. Fatigue, unspecified type - ICD9: 780.79, ICD10: R53.83 - COMPLETE BLOOD COUNT AND DIFFERENTIAL - THYROID STIMULATING HORMONE 7. Iron deficiency - ICD9: 280.9, ICD10: E61.1 - IRON AND TIBC - FERRITIN Isatu Nieto MD documented in this encounter [facility] 12-10-2024 Note HNO ID: [id number] Author: FRANCO ROBLERO MD Service: ? Author Type: Physician Type: Progress Notes Filed: 12/12/2024 06:03 Note Text: FOLLOW UP VISIT NAME: Vinod Paris [facility] NO.: [id number] DATE OF SERVICE: December 11, 2024 : 1975 REFERRING PHYSICIAN: Isatu Nieto MD Vinod is a patient I am following for history of left breast abscesses. I had last seen Vinod on April 04, 2024. At that time I noted: The patient is a 49 year old female with a complaint of a palpable breast mass. The patient notes a mass in the retroaerolar portion to slightly medial area of her left breast. The patient has noticed this mass for a long time. The patient had a mammogram and ultrasound obtained the the [facility] on February 21, 2024 which demonstrated: IMPRESSION: Finding 1 Masses in both breasts are benign. Finding 2 Irregular mass in the left breast at 9 o'clock, 2 cm from the nipple is suspicious. It extends into the nipple. An ultrasound guided biopsy is recommended. Finding 3 Abnormal lymph node in the left axilla is suspicious. An ultrasound guided biopsy is recommended. I discussed the findings and results with the patient over the phone at the time of the interpretation. The Breast Center Navigator will consult with the patient regarding the recommendations including Breast Clinic referral recommendation. An Epic message with the recommendations of Breast Surgery Clinic referral and breast biopsy will be submitted by the Breast Center Navigator to Makayla Morley on 02/21/2024 at the time of interpretation. The Breast Center Navigator will schedule the appropriate appointments for the patient. Finding 4 Area of skin thickening in the right breast at 3 o'clock, 2 cm from the nipple is benign. BI-RADS Category 4: Suspicious I had seen this patient on August 16, 2023. At that time I noted: The patient is a 48 year old female with a complaint of nonhealing wound and discharge from her left nipple. The patient has a longstanding history of breast abscesses nipple discharge and infections. She has had multiple incision and drainage procedures of the left periareolar area. Most of these were performed at [facility] in [facility]. The patient is also seen Dr. Watson in the past. He advised against additional drainages when he saw the patient. The patient presents to multiple different ERs with these complaints. She states that after the most recent incision and drainage she has a chronic site which generally does not heal just along the medial aspect of her left nipple. She presented to [facility] emergency department ER with these complaints. Ultrasound of the breast was obtained which demonstrated no abscesses and no specific abnormalities. She followed up with Dr. Nieto. She noted some blood and pus draining from the nipple at that time. This was sent for culture returned as actinomyces. The patient was given doxycycline. She denies fever or chills. The patient is somewhat complicated history. She smokes 2 packs cigarettes a day. She snorts and smokes crystal methamphetamine. She had abstained from methamphetamine for the last 2 weeks when I had initially evaluated her in February. She has had issues with follow up and missing appointment. She notes chronic scabs with occasional drainage from sites on both medial nipple aerolar sites. SHe has not had breast imagine for some time. I noted at that time on exam: Left breast-no fluctuance or significant erythema. At the 9 o'clock position relative to the nipple areolar complex there is a scarred area with a small scab consistent with her previous multiple incisions. No drainage currently. Right breast - 3 oclock scab, also no fluctuance or drainage. Intraoffice ultrasound demonstrated no obvious abscess along that tract. There did appear to be multiple postsurgical changes/scarring in the area There appears to be a dilated duct under the right scab/drainage site. There is some retraction at the left site with no ultrasound abnormalities. I recommended mammogram and ultrasound which was ordered. The patient failed to have those studies and I understand moved to [place] where she had the above imaging. She has a history of PVD. She is on Xeralto and was planning to have a lower extremity non invasive study later this afternoon. The patient was followed by Dr. Raymundo Pisano in [facility]. The patient moved to [place] and was receiving close surgical care from him at that time. She had undergone a smaller excision of the central chronic abscess on September 26, 2024. There was poorly healing and then underwent a wider resection with excision of nipple/central lumpectomy on October 30, 2024. She initially had a wound VAC placed but was noting leakage and was basically switched from wound VAC to wet-to-dry dressings twice a day. She has moved back to the [facility] (more content not included)... [facility] 12-10-2024 History of Present illness Narrative FOLLOW UP VISIT NAME: Vinod Paris [facility] NO.: [id number] DATE OF SERVICE: December 11, 2024 : 1975 REFERRING PHYSICIAN: MD Vinod Sevilla is a patient I am following for history of left breast abscesses. I had last seen Vinod on April 04, 2024. At that time I noted: The patient is a 49 year old female with a complaint of a palpable breast mass. The patient notes a mass in the retroaerolar portion to slightly medial area of her left breast. The patient has noticed this mass for a long time. The patient had a mammogram and ultrasound obtained the the [facility] on February 21, 2024 which demonstrated: IMPRESSION: Finding 1 Masses in both breasts are benign. Finding 2 Irregular mass in the left breast at 9 o'clock, 2 cm from the nipple is suspicious. It extends into the nipple. An ultrasound guided biopsy is recommended. Finding 3 Abnormal lymph node in the left axilla is suspicious. An ultrasound guided biopsy is recommended. I discussed the findings and results with the patient over the phone at the time of the interpretation. The Breast Center Navigator will consult with the patient regarding the recommendations including Breast Clinic referral recommendation. An Epic message with the recommendations of Breast Surgery Clinic referral and breast biopsy will be submitted by the Breast Center Navigator to Makayla Morley on 02/21/2024 at the time of interpretation. The Breast Center Navigator will schedule the appropriate appointments for the patient. Finding 4 Area of skin thickening in the right breast at 3 o'clock, 2 cm from the nipple is benign. BI-RADS Category 4: Suspicious I had seen this patient on August 16, 2023. At that time I noted: The patient is a 48 year old female with a complaint of nonhealing wound and discharge from her left nipple. The patient has a longstanding history of breast abscesses nipple discharge and infections. She has had multiple incision and drainage procedures of the left periareolar area. Most of these were performed at [facility] in [facility]. The patient is also seen Dr. Watson in the past. He advised against additional drainages when he saw the patient. The patient presents to multiple different ERs with these complaints. She states that after the most recent incision and drainage she has a chronic site which generally does not heal just along the medial aspect of her left nipple. She presented to [facility] emergency department ER with these complaints. Ultrasound of the breast was obtained which demonstrated no abscesses and no specific abnormalities. She followed up with Dr. Nieto. She noted some blood and pus draining from the nipple at that time. This was sent for culture returned as actinomyces. The patient was given doxycycline. She denies fever or chills. The patient is somewhat complicated history. She smokes 2 packs cigarettes a day. She snorts and smokes crystal methamphetamine. She had abstained from methamphetamine for the last 2 weeks when I had initially evaluated her in February. She has had issues with follow up and missing appointment. She notes chronic scabs with occasional drainage from sites on both medial nipple aerolar sites. SHe has not had breast imagine for some time. I noted at that time on exam: Left breast-no fluctuance or significant erythema. At the 9 o'clock position relative to the nipple areolar complex there is a scarred area with a small scab consistent with her previous multiple incisions. No drainage currently. Right breast - 3 oclock scab, also no fluctuance or drainage. Intraoffice ultrasound demonstrated no obvious abscess along that tract. There did appear to be multiple postsurgical changes/scarring in the area There appears to be a dilated duct under the right scab/drainage site. There is some retraction at the left site with no ultrasound abnormalities. I recommended mammogram and ultrasound which was ordered. The patient failed to have those studies and I understand moved to [place] where she had the above imaging. She has a history of PVD. She is on Xeralto and was planning to have a lower extremity non invasive study later this afternoon. The patient was followed by Dr. Raymundo Pisano in [facility]. The patient moved to [place] and was receiving close surgical care from him at that time. She had undergone a smaller excision of the central chronic abscess on September 26, 2024. There was poorly healing and then underwent a wider resection with excision of nipple/central lumpectomy on October 30, 2024. She initially had a wound VAC placed but was noting leakage and was basically switched from wound VAC to wet-to-dry dressings twice a day. She has moved back to the [facility] and is asking if I can follow-up with her until the site heals. VITALS: Blood pressure 108/68, pulse 117, resp. rate 16, weight 101.2 kg (223 lb), last menstrual period 08/06/2020, SpO2 94%. On examination, the patient has a central left breast incision open wound with healthy appearing granulation tissue with no signs of infection. There was an area of hypertrophic granulation tissue that was treated with silver nitrate Assessment IMPRESSION: Status post right central lumpectomy for chronic abscess. PLAN: If the patient notes any problems or signs of worsening infection fever or purulent drainage, the patient should contact me immediately. Otherwise, she should continue to dry dressing as the site appears to be healed properly. Diagnoses: (N61.1) Breast abscess (primary encounter diagnosis) (Z87.2) History of breast abscess Return to Clinic: The patient is instructed to follow-up with me in 2 weeks. Franco Roblero MD documented in this encounter [facility] 12-03-2024 History of Present illness Narrative HISTORY AND PHYSICAL Vinod Paris Seth 1975 REFERRING PHYSICIAN: No ref. provider found CHIEF COMPLAINT: No chief complaint on file. HPI: The patient is a 49 year old female with a complaint of healing breast abscess. Vinod is a patient of Dr. Roblero that I am seeing today to check her left breast wound. She has had an extensive hx of left breast abscess including multiple I&Ds at multiple E[facility] & use of a wound VAC for healing after surgical intervention in [place] where she use to reside. I saw her last week with Dr. Roblero and the would is healing nicely. He instructed her to continuing with the wet to dry dressing and that he would expect this week she should be able to just place a dry dressing on the area. Vinod notes no concerns. She is using tylenol 1000mg TID for pain relief. She is changing the dressing BID & notes no concerns of infection, increased drainage, swelling, redness or pain. Patient's past medical history is significant for 2 ppd smoker, drug abuse, DVT & obesity. 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 02/15 with of mother Severe episode of recurrent major depressive disorder, without psychotic features (HCC) Kendra Padilla Suicidal ideation PAST SURGICAL HISTORY Procedure Laterality Date ABDOMINAL SURGERY HX BREAST SURGERY HX BX OF BREAST; INCISIONAL Left 08/29/2019 [place] [facility]- Benign COLONOSCOPY 09/22/2022 COLONOSCOPY FLX DX W/COLLJ SPEC WHEN PFRMD 12/01/2019 Colonoscopy PAST SURGICAL HISTORY OF 03/2010 gall bladder removed PAST SURGICAL HISTORY OF Left wrist surgery when she was 15 years old PAST SURGICAL HISTORY OF 2013 tubal ligation PAST SURGICAL HISTORY OF 02/2022 bilateral cyst removed, [place] Current Outpatient Medications Medication Sig cilostazol (PLETAL) 100 mg tablet Take 1 tablet by mouth two times a day. cloNIDine HCl (CATAPRES) 0.1 mg tablet Take 1 tablet by mouth once daily. famotidine (PEPCID) 40 mg tablet Take 1 tablet by mouth daily at bedtime. ARIPiprazole (ABILIFY) 20 mg tablet Take 30 mg by mouth once daily. mirtazapine (REMERON) 45 mg tablet Take 45 mg by mouth. prazosin (MINIPRESS) 2 mg cap Take 2 mg by mouth daily at bedtime. folic acid 1 mg tablet Take 1 tablet by mouth once daily. fluticasone (FLONASE) 50 mcg/actuation nasal spray Use 1 [place] in the nose. albuterol HFA (PROVENTIL HFA, VENTOLIN HFA) 90 mcg/actuation inhaler Inhale 2 Puffs as instructed every 6 hours as needed. rivaroxaban (XARELTO) 20 mg tablet Take 20 mg by mouth. rosuvastatin (CRESTOR) 10 mg tablet Take 10 mg by mouth once daily. aspirin 81 mg cap Take 81 mg by mouth once daily. amLODIPine (NORVASC) 2.5 mg tablet Take 1 tablet by mouth once daily. oxybutynin ER (DITROPAN XL) 10 mg 24 hr tablet Take 1 tablet by mouth once daily. ergocalciferol 50,000 unit capsule (VITAMIN D2, DRISDOL) Take 1 capsule by mouth one time a week. omeprazole (PRILOSEC) 40 mg capsule Take 1 capsule by mouth once daily. acetaminophen (TYLENOL) 500 mg tablet Take 2 tablets by mouth every 8 hours as needed for pain. No current facility-administered medications for this visit. ALLERGIES: Cephalexin, Fenofibrate, Zoloft [Sertraline Hcl], Zyprexa [Olanzapine], and Clindamycin PERSONAL HISTORY: Social History Tobacco Use Smoking status: Every Day Current packs/day: 2.00 Average packs/day: 2.0 packs/day for 29.0 years (58.0 ttl pk-yrs) Types: Cigarettes Smokeless tobacco: Never Vaping Use Vaping status: Former Substances: Nicotine Substance Use Topics Alcohol use: Yes Comment: quit , small relapse in 02/15 with of mother. FAMILY HISTORY: FAMILY HISTORY Problem Relation Age of Onset Lung Cancer Mother at 63 Osteoporosis Mother Alcohol/Drug Mother alcohol Hypertension Father Alcohol/Drug Father alcohol Aneurysm Father abdominal Prostate Cancer Father Alcohol/Drug Sister drugs other (Aids) Sister drug user Aneurysm Sister head Breast Cancer Paternal Grandmother late 50's or 60's Alcohol/Drug Niece Ovarian cancer Niece diagnosed young PHYSICAL EXAMINATION: General: The patient is 49 year old female, well nourished, well hydrated in no acute distress. The patient is oriented to time, place, and person. VITALS: Blood pressure 124/84, pulse (!) 127, temperature 36.4 C (97.5 F), last menstrual period 08/06/2020, SpO2 95%. There is no height or weight on file to calculate BMI. On examination, the patient has a central left breast incision open wound with healthy appearing granulation tissue with no signs of infection. Measuring 6.5 cm x 4 cm. IMPRESSION: Status post right central lumpectomy for chronic abscess. PLAN: If the patient notes any problems or signs of worsening infection fever or purulent drainage, the patient should contact me immediately. Otherwise, she should continue to dry dressing as instructed by Dr. Roblero at last weeks visit as the site appears to be healing well. Diagnoses: (N61.1) Breast abscess (primary encounter diagnosis) Return to Clinic: The patient is instructed to follow-up with Dr. Roblero in 1 week. Patient verbalized understanding of all above and agreed with the plan Blanca Landis APRN.LUZ ELENA documented in this encounter [facility] 12-03-2024 Note HNO ID: [id number] Author: BLANCA LANDIS APRN.LUZ ELENA Service: ? Author Type: Nurse Practitioner Type: Progress Notes Filed: 12/03/2024 14:09 Note Text: HISTORY AND PHYSICAL Vinod Ann 1975 REFERRING PHYSICIAN: No ref. provider found CHIEF COMPLAINT: No chief complaint on file. HPI: The patient is a 49 year old female with a complaint of healing breast abscess. Vinod is a patient of Dr. Roblero that I am seeing today to check her left breast wound. She has had an extensive hx of left breast abscess including multiple IANDDs at multiple Eds AND use of a wound VAC for healing after surgical intervention in [place] where she use to reside. I saw her last week with Dr. Roblero and the would is healing nicely. He instructed her to continuing with the wet to dry dressing and that he would expect this week she should be able to just place a dry dressing on the area. Vinod notes no concerns. She is using tylenol 1000mg TID for pain relief. She is changing the dressing BID AND notes no concerns of infection, increased drainage, swelling, redness or pain. Patient's past medical history is significant for 2 ppd smoker, drug abuse, DVT AND obesity. 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 02/15 with of mother Severe episode of recurrent major depressive disorder, without psychotic features (HCC) Kendra Padilla Suicidal ideation PAST SURGICAL HISTORY Procedure Laterality Date ABDOMINAL SURGERY HX BREAST SURGERY HX BX OF BREAST; INCISIONAL Left 08/29/2019 [facility]- Benign COLONOSCOPY 09/22/2022 COLONOSCOPY FLX DX W/COLLJ SPEC WHEN PFRMD 12/01/2019 Colonoscopy PAST SURGICAL HISTORY OF 03/2010 gall bladder removed PAST SURGICAL HISTORY OF Left wrist surgery when she was 15 years old PAST SURGICAL HISTORY OF 2013 tubal ligation PAST SURGICAL HISTORY OF 02/2022 bilateral cyst removed, [place] Current Outpatient Medications Medication Sig cilostazol (PLETAL) 100 mg tablet Take 1 tablet by mouth two times a day. cloNIDine HCl (CATAPRES) 0.1 mg tablet Take 1 tablet by mouth once daily. famotidine (PEPCID) 40 mg tablet Take 1 tablet by mouth daily at bedtime. ARIPiprazole (ABILIFY) 20 mg tablet Take 30 mg by mouth once daily. mirtazapine (REMERON) 45 mg tablet Take 45 mg by mouth. prazosin (MINIPRESS) 2 mg cap Take 2 mg by mouth daily at bedtime. folic acid 1 mg tablet Take 1 tablet by mouth once daily. fluticasone (FLONASE) 50 mcg/actuation nasal spray Use 1 [place] in the nose. albuterol HFA (PROVENTIL HFA, VENTOLIN HFA) 90 mcg/actuation inhaler Inhale 2 Puffs as instructed every 6 hours as needed. rivaroxaban (XARELTO) 20 mg tablet Take 20 mg by mouth. rosuvastatin (CRESTOR) 10 mg tablet Take 10 mg by mouth once daily. aspirin 81 mg cap Take 81 mg by mouth once daily. amLODIPine (NORVASC) 2.5 mg tablet Take 1 tablet by mouth once daily. oxybutynin ER (DITROPAN XL) 10 mg 24 hr tablet Take 1 tablet by mouth once daily. ergocalciferol 50,000 unit capsule (VITAMIN D2, DRISDOL) Take 1 capsule by mouth one time a week. omeprazole (PRILOSEC) 40 mg capsule Take 1 capsule by mouth once daily. acetaminophen (TYLENOL) 500 mg tablet Take 2 tablets by mouth every 8 hours as needed for pain. No current facility-administered medications for this visit. ALLERGIES: Cephalexin, Fenofibrate, Zoloft [Sertraline Hcl], Zyprexa [Olanzapine], and Clindamycin PERSONAL HISTORY: Social History Tobacco Use Smoking status: Every Day Current packs/day: 2.00 Average packs/day: 2.0 packs/day for 29.0 years (58.0 ttl pk-yrs) Types: Cigarettes Smokeless tobacco: Never Vaping Use Vaping status: Former Substances: Nicotine Substance Use Topics Alcohol use: Yes Comment: quit , small relapse in 02/15 with of mother. FAMILY HISTORY: FAMILY HISTORY Problem Relation Age of Onset Lung Cancer Mother at 63 Osteoporosis Mother Alcohol/Drug Mother alcohol Hypertension Father Alcohol/Drug Father alcohol Aneurysm Father abdominal Prostate Cancer Father Alcohol/Drug Sister drugs other (Aids) Sister drug user Aneurysm Sister head Breast Cancer Paternal Grandmother late 50's or 60's Alcohol/Drug Niece Ovarian cancer Niece diagnosed young PHYSICAL EXAMINATION: General: The patient is 49 year old female, well nourished, well hydrated in no acute distress. The patient is oriented to time, place, and person. VITALS: Blood pressure 124/84, pulse (!) 127, temperature 36.4 ?C (97.5 ?F), last menstrual per (more content not included)... [facility] 11-29-2024 Note HNO ID: [id number] Author: FRANCO ROBLERO MD Service: ? Author Type: Physician Type: Progress Notes Filed: 11/29/2024 08:04 Note Text: FOLLOW UP VISIT NAME: Vinod Paris [facility] NO.: [id number] DATE OF SERVICE: 11/26/2024 : 1975 REFERRING PHYSICIAN: Isatu Nieto MD Vinod is a patient I am following for history of left breast abscesses. I had last seen Vinod on April 04, 2024. At that time I noted: The patient is a 49 year old female with a complaint of a palpable breast mass. The patient notes a mass in the retroaerolar portion to slightly medial area of her left breast. The patient has noticed this mass for a long time. The patient had a mammogram and ultrasound obtained the the [facility] on February 21, 2024 which demonstrated: IMPRESSION: Finding 1 Masses in both breasts are benign. Finding 2 Irregular mass in the left breast at 9 o'clock, 2 cm from the nipple is suspicious. It extends into the nipple. An ultrasound guided biopsy is recommended. Finding 3 Abnormal lymph node in the left axilla is suspicious. An ultrasound guided biopsy is recommended. I discussed the findings and results with the patient over the phone at the time of the interpretation. The Breast Center Navigator will consult with the patient regarding the recommendations including Breast Clinic referral recommendation. An Epic message with the recommendations of Breast Surgery Clinic referral and breast biopsy will be submitted by the Breast Center Navigator to Makayla Morley on 02/21/2024 at the time of interpretation. The Breast Center Navigator will schedule the appropriate appointments for the patient. Finding 4 Area of skin thickening in the right breast at 3 o'clock, 2 cm from the nipple is benign. BI-RADS Category 4: Suspicious I had seen this patient on August 16, 2023. At that time I noted: The patient is a 48 year old female with a complaint of nonhealing wound and discharge from her left nipple. The patient has a longstanding history of breast abscesses nipple discharge and infections. She has had multiple incision and drainage procedures of the left periareolar area. Most of these were performed at [facility] in [facility]. The patient is also seen Dr. Watson in the past. He advised against additional drainages when he saw the patient. The patient presents to multiple different ERs with these complaints. She states that after the most recent incision and drainage she has a chronic site which generally does not heal just along the medial aspect of her left nipple. She presented to [facility] emergency department ER with these complaints. Ultrasound of the breast was obtained which demonstrated no abscesses and no specific abnormalities. She followed up with Dr. Nieto. She noted some blood and pus draining from the nipple at that time. This was sent for culture returned as actinomyces. The patient was given doxycycline. She denies fever or chills. The patient is somewhat complicated history. She smokes 2 packs cigarettes a day. She snorts and smokes crystal methamphetamine. She had abstained from methamphetamine for the last 2 weeks when I had initially evaluated her in February. She has had issues with follow up and missing appointment. She notes chronic scabs with occasional drainage from sites on both medial nipple aerolar sites. SHe has not had breast imagine for some time. I noted at that time on exam: Left breast-no fluctuance or significant erythema. At the 9 o'clock position relative to the nipple areolar complex there is a scarred area with a small scab consistent with her previous multiple incisions. No drainage currently. Right breast - 3 oclock scab, also no fluctuance or drainage. Intraoffice ultrasound demonstrated no obvious abscess along that tract. There did appear to be multiple postsurgical changes/scarring in the area There appears to be a dilated duct under the right scab/drainage site. There is some retraction at the left site with no ultrasound abnormalities. I recommended mammogram and ultrasound which was ordered. The patient failed to have those studies and I understand moved to [place] where she had the above imaging. She has a history of PVD. She is on Xeralto and was planning to have a lower extremity non invasive study later this afternoon. The patient was followed by Dr. Raymundo Pisano in [facility]. The patient moved to [place] and was receiving close surgical care from him at that time. She had undergone a smaller excision of the central chronic abscess on September 26, 2024. There was poorly healing and then underwent a wider resection with excision of nipple/central lumpectomy on October 30, 2024. She initially had a wound VAC placed but was noting leakage and was basically switched from wound VAC to wet-to-dry dressings twice a day. She has moved back to the [facility] and i (more content not included)... [facility] 11-27-2024 Telephone encounter Note Received medical records from [facility] via [employer]. Scanned to Cell>Point to Scanned Docs. Lamar Hummel LPN [facility] 11-27-2024 Miscellaneous Notes Received medical records from [facility] via [employer]. Scanned to Cell>Point to Scanned Docs. Lamar Hummel LPN documented in this encounter [facility] 11-27-2024 Note Behavioral Health Ou tpatient Progress Note Patient Name: Vinod Ann MR #: [id number] : 1975 Chief Complaint: Medication and symptom review/management Interval History: 11/27/2024 Patient presents for follow up exam. I discussed risks, benefits and alternatives of a telephone visit telemedicine consultation with the patient (and any accompanying persons) including the risks that the patient's personal health details and medical records will be discussed over real-time, synchronous, interactive audio technology, the visit will not be recorded without the express consent of both the provider and the patient, and that there are inherent diagnostic limitations compared to [id number] evaluations. We elected to proceed with the telephone visit telemedicine consultation. Patient is engaged and cooperative during conversation. States she is tolerating the medication well. Symptoms are stable and have not worsened. Denies any recent mood changes or fluctuations. Denies any new or ongoing complaints/concerns. Denies any side effects of the medication. Denies any Suicidal Ideation or Homicidal Ideation Current stressors: she had to have her breast nipple removed due to infection. She had a wound vac in place since October. Previous Visit: 10/09/2024 Patient presents for follow up exam. I discussed risks, benefits and alternatives of a telephone visit telemedicine consultation with the patient (and any accompanying persons) including the risks that the patient's personal health details and medical records will be discussed over real-time, synchronous, interactive audio technology, the visit will not be recorded without the express consent of both the provider and the patient, and that there are inherent diagnostic limitations compared to [id number] evaluations. We elected to proceed with the telephone visit telemedicine consultation. Patient is engaged and cooperative during conversation. States she is tolerating the medication well. Symptoms of anxiety and not yet stable. She reports she is having a lot of anxiety due to PTSD. She has been on ssri's in the past but does not feel they worked well for her. Denies any recent mood changes or fluctuations. Denies any new or ongoing complaints/concerns. Denies any side effects of the medication. Denies any Suicidal Ideation or Homicidal Ideation Current stressors: recent breast infection, has a wound vac in place for 6 weeks. 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 famotidine (PEPCID) 40 MG tablet Take 1 (one) tablet (40 mg total) by mouth daily . folic acid (FOLVITE) 1 MG tablet Take 1 (one) tablet (1 mg total) by mouth daily . metoprolol succinate (TOPROL-XL) 25 MG 24 hr tablet Take 1 (one) tablet (25 mg total) by mouth every night at bedtime . mirtazapine (REMERON) 45 MG tablet Take 1 (one) tablet (45 mg total) by mouth every evening . nystatin (MYCOSTATIN) powder Apply to affected area 3 times daily . 15 g 0 omeprazole (PRILOSEC) 40 MG capsule Take 1 (one) capsule (40 mg total) by mouth daily . Xarelto 20 mg Tab Take 1 (one) tablet (20 mg total) by mouth daily with dinner . ARIPiprazole (ABILIFY) 30 MG tablet Take 1 (one) tablet (30 mg total) by mouth daily . 30 tablet 2 busPIRone (BUSPAR) 10 MG tablet Take 1 (one) tablet (10 mg total) by mouth 3 (three) times a day . 90 tablet 1 hydrOXYzine (ATARAX) 50 MG tablet Take 1 (one) tablet (50 mg total) by mouth 3 (three) times a day as needed for anxiety . 90 tablet 1 hydrOXYzine (VISTARIL) 25 MG capsule Take 1 (one) capsule (25 mg total) by mouth 3 (three) times a day as needed . No facility-administered medications prior to visit. Psychiatric ROS: Negative unless noted above. Review of Systems: Constitutional: Denies fever, chills, diaphoresis, malaise Eyes: Denies blurred vision, double vision ENT: Denies nasal congestion, sore throat Neurological: Denies headache, photophobia, weakness, numbness CVS: Denies chest pain or palpitations Respiratory: Denies dyspnea or cough Musculoskeletal: Denies joint pain or muscle aches GI: Denies nausea, vomiting, constipation, or diarrhea Integumentary: Denies itching or rash Endocrine: Denies heat/cold intolerance or weight loss/weight gain Mental Status Evaluation: General Appearance & Behavior: age appropriate, pleasant, cooperative, good eye contact Grooming & Hygiene: street clothes Psychomotor Activity: no psychomotor abnormalities or muscle atrophy noted Speech: normal rate, rhythym, volume, and spontaneity Flow of Thought: linear and goal directed Thought Associations: Intact Content of Thought: No evidence (more content not included)... [facility] 11-27-2024 History of Present illness Narrative Images from the original note were not included. Behavioral Health Outpatient Progress Note Patient Name: Vinod Ann MR #: [id number] : 1975 Chief Complaint: Medication and symptom review/management Interval History: 11/27/2024 Patient presents for follow up exam. I discussed risks, benefits and alternatives of a telephone visit telemedicine consultation with the patient (and any accompanying persons) including the risks that the patient's personal health details and medical records will be discussed over real-time, synchronous, interactive audio technology, the visit will not be recorded without the express consent of both the provider and the patient, and that there are inherent diagnostic limitations compared to [id number] evaluations. We elected to proceed with the telephone visit telemedicine consultation. Patient is engaged and cooperative during conversation. States she is tolerating the medication well. Symptoms are stable and have not worsened. Denies any recent mood changes or fluctuations. Denies any new or ongoing complaints/concerns. Denies any side effects of the medication. Denies any Suicidal Ideation or Homicidal Ideation Current stressors: she had to have her breast nipple removed due to infection. She had a wound vac in place since October. Previous Visit: 10/09/2024 Patient presents for follow up exam. I discussed risks, benefits and alternatives of a telephone visit telemedicine consultation with the patient (and any accompanying persons) including the risks that the patient's personal health details and medical records will be discussed over real-time, synchronous, interactive audio technology, the visit will not be recorded without the express consent of both the provider and the patient, and that there are inherent diagnostic limitations compared to [id number] evaluations. We elected to proceed with the telephone visit telemedicine consultation. Patient is engaged and cooperative during conversation. States she is tolerating the medication well. Symptoms of anxiety and not yet stable. She reports she is having a lot of anxiety due to PTSD. She has been on ssri's in the past but does not feel they worked well for her. Denies any recent mood changes or fluctuations. Denies any new or ongoing complaints/concerns. Denies any side effects of the medication. Denies any Suicidal Ideation or Homicidal Ideation Current stressors: recent breast infection, has a wound vac in place for 6 weeks. 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 famotidine (PEPCID) 40 MG tablet Take 1 (one) tablet (40 mg total) by mouth daily . folic acid (FOLVITE) 1 MG tablet Take 1 (one) tablet (1 mg total) by mouth daily . metoprolol succinate (TOPROL-XL) 25 MG 24 hr tablet Take 1 (one) tablet (25 mg total) by mouth every night at bedtime . mirtazapine (REMERON) 45 MG tablet Take 1 (one) tablet (45 mg total) by mouth every evening . nystatin (MYCOSTATIN) powder Apply to affected area 3 times daily . 15 g 0 omeprazole (PRILOSEC) 40 MG capsule Take 1 (one) capsule (40 mg total) by mouth daily . Xarelto 20 mg Tab Take 1 (one) tablet (20 mg total) by mouth daily with dinner . ARIPiprazole (ABILIFY) 30 MG tablet Take 1 (one) tablet (30 mg total) by mouth daily . 30 tablet 2 busPIRone (BUSPAR) 10 MG tablet Take 1 (one) tablet (10 mg total) by mouth 3 (three) times a day . 90 tablet 1 hydrOXYzine (ATARAX) 50 MG tablet Take 1 (one) tablet (50 mg total) by mouth 3 (three) times a day as needed for anxiety . 90 tablet 1 hydrOXYzine (VISTARIL) 25 MG capsule Take 1 (one) capsule (25 mg total) by mouth 3 (three) times a day as needed . No facility-administered medications prior to visit. Psychiatric ROS: Negative unless noted above. Review of Systems: Constitutional: Denies fever, chills, diaphoresis, malaise Eyes: Denies blurred vision, double vision ENT: Denies nasal congestion, sore throat Neurological: Denies headache, photophobia, weakness, numbness CVS: Denies chest pain or palpitations Respiratory: Denies dyspnea or cough Musculoskeletal: Denies joint pain or muscle aches GI: Denies nausea, vomiting, constipation, or diarrhea Integumentary: Denies itching or rash Endocrine: Denies heat/cold intolerance or weight loss/weight gain Mental Status Evaluation: General Appearance & Behavior: age appropriate, pleasant, cooperative, good eye contact Grooming & Hygiene: street clothes Psychomotor Activity: no psychomotor abnormalities or muscle atrophy noted Speech: normal rate, rhythym, volume, and spontaneity Flow of Thought: linear and goal directed Thought Associations: Intact Content of Thought: No evidence of suicidal ideations/homicidal ideations/psychosis Mood: okay Affect: euthymic Insight: intact Judgment: intact Orientation: alert and oriented to person, place, time, and circumstances Memory: intact recent and remote Concentration: intact Language: fluent Fund of Knowledge: estimated average intelligence Assessment and Plan/Recommendations Diagnoses/Treatment Plan: Diagnoses and all orders for this visit: Bipolar affective disorder, remission status unspecified (HCC) - ARIPiprazole (ABILIFY) 30 MG tablet; Take 1 (one) tablet (30 mg total) by mouth daily . Anxiety - hydrOXYzine (ATARAX) 50 MG tablet; Take 1 (one) tablet (50 mg total) by mouth 3 (three) times a day as needed for anxiety . Pharmacological management: Alternative medication plans were discussed with the patient/guardian. All side effects or potential adverse effects were discussed with the patient/guardian. Parent/guardian consented to medication initiation or continuation of the following: Education: Continue medication as prescribed. Please report any side effects or intolerability of the medication. Report any new or worsening symptoms 08/25/2024 10:00 AM REINA-7 REINA-7 Score 19 08/25/2024 10:00 AM PHQ-9 PHQ-9 Total Score 18 Follow up in: weeks or sooner if needed [employer] Check I'm Here is a great way to communicate with your provider, on non urgent concerns. Please consider sending your provider a Check I'm Here message with your non-urgent questions. Please do not use Check I'm Here to send any messages requiring urgent or emergent attention. By selecting to send a message, you acknowledge you are seeking medical advice for non-urgent issues and that you are aware that you may not get a response for 2 business days. Responses are not monitored evenings and weekends. For issues requiring urgent or emergent attention, please call our office at to speak to the provider on-call or call 911. Treatment options and alternatives reviewed with patient. Risks, benefits, side effects of all psychiatric medications discussed with patient and informed consent obtained. All questions were answered. Brando Cid CNP 11/27/2024 1:24 PM documented in this encounter [facility] 11-26-2024 Telephone encounter Note Scheduled [facility] Work Phone: 11-26-2024 Miscellaneous Notes Scheduled TE on 02/28/24 states She was seen within the last year so ok to be seen. Please switch PCP to dr. Nieto Thank you Milly Feliciano APRN.HAND SCRAPER Ok to schedule as physical/annual Tina Bloom MA Patient calling in about re-establishing care with Sravanthi's team. She moved back to the area, and she was last seen in 2022 by the team, however Sravanthi is not PCP in the chart. Please review and advise. Earline Hinkle November 25, 2024 8:53 AM documented in this encounter [facility] 11-25-2024 Telephone encounter Note TE on 02/28/24 states She was seen within the last year so ok to be seen. Please switch PCP to dr. Nieto Thank you Milly Feliciano APRN.HAND SCRAPER Ok to schedule as physical/annual Tina Bloom MA [facility] 11-25-2024 Telephone encounter Note Patient calling in about re-establishing care with Sravanthi's team. She moved back to the area, and she was last seen in 2022 by the team, however Sravanthi is not PCP in the chart. Please review and advise. Earline Hinkle November 25, 2024 8:53 AM [facility] 11-21-2024 Telephone encounter Note Canceled Vinod's appointment on 11/25/24. [facility] 11-21-2024 Miscellaneous Notes Canceled Vinod's appointment on 11/25/24. Patient called in and is going to see Franco Roblero Jr, MD at [facility] for breast wound. Their office number is [phone] wants to cancel appt on 11/25 documented in this encounter [facility] 11-21-2024 Telephone encounter Note spoke to pt regarding apt with a7, r/s pt aware of date/time [facility] 11-21-2024 Miscellaneous Notes spoke to pt regarding apt with a7, r/s pt aware of date/time documented in this encounter [facility] 11-21-2024 Telephone encounter Note Ann-Marie from [facility] called to let our office know that they are discharging Vinod since she is moving to [place] and also that Vinod told them that she will be going to the ER in [place] in order to get a doctor to follow up there for post op care. Understanding was verbalized. Updating provider as well. [facility] 11-21-2024 Miscellaneous Notes Ann-Marie from [facility] called to let our office know that they are discharging Vinod since she is moving to [place] and also that Vinod told them that she will be going to the ER in [place] in order to get a doctor to follow up there for post op care. Understanding was verbalized. Updating provider as well. documented in this encounter [facility] 11-21-2024 Telephone encounter Note Patient called in and is going to see Franco Roblero Jr, MD at [facility] for breast wound. Their office number is [phone] wants to cancel appt on 11/25 [facility] 11-19-2024 Telephone encounter Note Spoke with Ann-Marie from , Insurance probably will not cover more supplies. She is going to speak with Rebecca with tomorrow about this. [facility] 11-19-2024 Miscellaneous Notes Spoke with Ann-Marie from , Insurance probably will not cover more supplies. She is going to speak with Rebecca with tomorrow about this. Patient called in with Jane from her [facility], gave verbal permission for Jane to speak with me. Jane is asking about supplies for Vinod as Vinod cannot afford to buy supplies. I told her I am not sure, that may be that gives supplies. Jane is concerned that patient is using too much saline and gauze. She is using double of the gauze and saline than she should be using. Reiterated to patient and Jane that Vinod should be using one piece, ring it out to where it is damp and place on wound, and put dry guaze and tape on. Jane stated Vinod is soaking the gauze and it is wet dressing all around. Jane then stated that Vinod is not showering still. I let Jane and Vinod know that Vinod is okay to shower there is nothing wrong with showering, and if she does not shower it could lead to more infections. I let Burak know I would reach out to HH about supplies. documented in this encounter [facility] 11-19-2024 Telephone encounter Note Patient called in with Jane from her [facility] living [facility], gave verbal permission for Jane to speak with me. Jane is asking about supplies for Vinod as Vinod cannot afford to buy supplies. I told her I am not sure, that may be HH that gives supplies. Jane is concerned that patient is using too much saline and gauze. She is using double of the gauze and saline than she should be using. Reiterated to patient and Jane that Vinod should be using one piece, ring it out to where it is damp and place on wound, and put dry guaze and tape on. Jane stated Vinod is soaking the gauze and it is wet dressing all around. Jane then stated that Vinod is not showering still. I let Jane and Vinod know that Vinod is okay to shower there is nothing wrong with showering, and if she does not shower it could lead to more infections. I let Burak know I would reach out to HH about supplies. [facility] 11-18-2024 Miscellaneous Notes Patient called back in asking if she can spray dry gauze to get off of wound, per Dr Pisano, yes she can do this. Reiterated to patient she may shower just don't directly put water/soap on wound. Patient verbalized understanding. Patient called in, her hothouse worker got sterile saline in a spray, and patient is making sure this is okay. Upon speaking with Brynn, yes this is okay, just make sure to not spray onto wound, spray on gauze. documented in this encounter [facility] 11-18-2024 Telephone encounter Note Patient called back in asking if she can spray dry gauze to get off of wound, per Dr Psiano, yes she can do this. Reiterated to patient she may shower just don't directly put water/soap on wound. Patient verbalized understanding. [facility] 11-18-2024 Telephone encounter Note Patient called in, her hothouse worker got sterile saline in a spray, and patient is making sure this is okay. Upon speaking with Brynn, yes this is okay, just make sure to not spray onto wound, spray on gauze. [facility] 11-17-2024 Telephone encounter Note Patient called in asking if she is able to shower, as she has not showered since she last saw Dr Pisano in clinic.I let patient know that yes she is allowed to shower. Patient stated she was afraid to shower due to the bleeding. I reassured patient that small amounts of bleeding is normal. Not to scrub soap into/ around wound and to pat dry and continue Wet to Dry dressings. Patient stated she is still in pain, I let patient know the pain is normal, and could be increasing as she is no longer taking the Gabapentin, and to continue trying to alternate Ibuprofen and Tylenol. Routing to Dr Pisano. [facility] 11-17-2024 Miscellaneous Notes Patient called in asking if she is able to shower, as she has not showered since she last saw Dr Pisano in clinic.I let patient know that yes she is allowed to shower. Patient stated she was afraid to shower due to the bleeding. I reassured patient that small amounts of bleeding is normal. Not to scrub soap into/ around wound and to pat dry and continue Wet to Dry dressings. Patient stated she is still in pain, I let patient know the pain is normal, and could be increasing as she is no longer taking the Gabapentin, and to continue trying to alternate Ibuprofen and Tylenol. Routing to Dr Pisano. documented in this encounter [facility] 11-11-2024 History of Present illness Narrative Dr. Raymundo Pisano MD Instructions: Vinod can shower. She can go back to normal activity. She has a lifting restriction: No lifting, pushing, pulling, twisting more than 20 lbs. She should change her dressing twice daily. Start with wet gauze followed by dry gauze and tape. Repeat with wet gauze followed by dry gauze and tape. Gauze should be wet with sterile saline. She should need the following supplies: Gauze, Tape, Sterile Saline. Please call [phone] with any questions. Post-Operative Visit Note Subjective: Vinod Ann is a 49 y.o. female, is s/p central lumpectomy of the left breast for a chronic recurrent abscess. Denies issues with constipation or diarrhea. Denies any breast pain. Energy levels back to baseline. 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 Past Surgical History: Past Surgical History: Procedure Laterality Date MASTECTOMY PARTIAL (LUMPECTOMY) Left 10/30/2024 Laterality: Left; Surgeon: Colby Pisano MD; Location: [facility] EXCISION BREAST CYST FIBROADENOMA LESION Left 09/26/2024 Laterality: Left; Surgeon: Colby Pisano MD; Location: [facility] CHOLECYSTECTOMY LAPAROSCOPIC HAND SURGERY Left I&D ABSCESS Bilateral breast LAPAROTOMY EXPLORATORY LEEP PROCEDURE REPAIR LIGAMENT HAND WRIST Left Social History: Social History Socioeconomic History Marital status: Single Tobacco Use Smoking status: Every Day Current packs/day: 2.00 Average packs/day: 2.0 packs/day for 36.0 years (72.0 ttl pk-yrs) Types: Cigarettes Start date: 1988 Passive exposure: Current Smokeless tobacco: Never Vaping Use Vaping status: Some Days Substance and Sexual Activity Alcohol use: Not Currently Drug use: Not Currently Types: Methamphetamines, Marijuana, Cocaine Comment: former; bath salts not for 6 months Sexual activity: Not Currently control/protection: Menopause Other Topics Concern Domestic Violence No Social Determinants of Health Food Insecurity: Food Insecurity Present (12/14/2023) Received from [facility] Hunger Vital Sign Worried About Running Out of Food in the Last Year: Sometimes true Ran Out of Food in the Last Year: Sometimes true Transportation Needs: Unmet Transportation Needs (12/14/2023) Received from [facility] PRAPARE - Transportation Lack of Transportation (Medical): Yes Lack of Transportation (Non-Medical): Yes Review of Systems: Constitutional: No fevers/chills CV: No chest pain Resp: no SOB GI: no bowel issues Medications: Current Outpatient Medications Medication Sig Taking? Last Dose Start Date End Date Authorizing Provider aripiprazole 30 MG tablet 30 mg, Oral, DAILY Yes 11/10/24 Historical Provider Aspirin 81 MG capsule 81 mg, Oral, DAILY Yes Taking 08/06/24 Ant Hodge APRN-HAND SCRAPER Blood Glucose Monitoring Suppl ([employer] Verio Flex System) w/Device Kit Yes Taking 03/28/24 Historical Provider Cholecalciferol (Vitamin D3) 1.25 MG (04941 UT) capsule 50,000 Units, Oral, WEEKLY Yes Taking 10/16/24 JOSE Jauregui cloNIDine 0.1 MG tablet 0.1 mg, Oral, DAILY Patient taking differently: Take 1 tablet by mouth daily. pm Yes Taking 10/20/24 JOSE Jauregui Drug [place] Natalia Murphy 33G [facility] Yes Taking 07/20/24 Historical Provider famotidine 40 MG tablet 1 tablet, Oral, DAILY AT BEDTIME Yes Taking 10/16/24 11/15/24 Historical Provider fluticasone 50 MCG/ACT Suspension nasal spray 1 spray, Nasal, DAILY Yes Taking 08/01/24 08/01/25 She Treadwell MD Gabapentin 100 MG capsule 200 mg, Oral, 3 TIMES DAILY Yes Taking 11/06/24 11/13/24 Colby Pisano MD mirtazapine 45 MG tablet 45 mg, Oral, DAILY EARLY EVENING Yes Taking 10/16/24 JOSE Jauregui omeprazole [address] capsule 40 mg, Oral, DAILY Patient taking differently: Take 1 capsule by mouth daily. am Yes Taking 08/06/24 JOSE Jauregui OneTouch Verio Strip strip In Vitro, BEFORE MEALS & AT BEDTIME NEEDED Yes Taking Historical Provider oxyBUTYnin 15 MG Tab SR 24 HR 15 mg, Oral, DAILY Yes Taking 10/09/24 JOSE Jauregui Rosuvastatin 10 MG tablet 10 mg, Oral, DAILY Patient taking differently: Take 1 tablet by mouth daily. pm Yes Taking 08/06/24 JOSE Jauregui Xarelto 20 MG tablet 20 mg, Oral, DAILY WITH DINNER Yes Taking 10/20/24 12/19/24 JOSE Jauregui Acetaminophen Extra Strength 500 MG tablet 2 tablets, Oral, 3 TIMES DAILY NEEDED 11/11/24 JOSE Jauregui Albuterol 108 (90 Base) MCG/ACT Aero Soln inhaler 2 puffs, Inhalation, EVERY 6 HOURS NEEDED 11/11/24 JOSE Jauregui amLODIPine 5 MG tablet 5 mg, Oral, DAILY, am 11/11/24 JOSE Jauregui Cilostazol 100 MG tablet 100 mg, Oral, 2 TIMES DAILY 11/11/24 JOSE Jauregui Folic acid 1 MG tablet 1 mg, Oral, DAILY 11/11/24 Ant Hodge APRN-LUZ ELENA hydrOXYzine pamoate 25 MG capsule 25 mg, Oral, 3 TIMES DAILY NEEDED 11/11/24 JOSE Jauregui Ibuprofen 200 MG tablet 400 mg, Oral, EVERY 8 HOURS 10/30/24 11/06/24 Colby Pisano MD Metoprolol succinate 25 MG tablet XL 25 mg, Oral, DAILY AT BEDTIME Patient not taking: Reported on 11/11/2024 Not Taking 10/16/24 Geronimo Simon, Prazosin 2 MG capsule 2 mg, Oral, DAILY AT BEDTIME 11/11/24 JOSE Jauregui Varenicline Tartrate, Starter, (Chantix Starting Month ) 0.5 MG X 11 & 1 MG X 42 Tab Therapy Pack tablet Take 0.5mg daily for 3 days (days 1-3), then 0.5mg two times a day for 4 days (days 4-7), then 1mg two times a day Patient not taking: Reported on 10/09/2024 Not Taking 08/14/24 JOSE Jauregui Objective: Vitals: 11/11/24 1150 BP: 110/70 Pulse: 114 Resp: 21 SpO2: 94% Physical Exam: General Appearance: alert and oriented, no acute distress HEENT: normocephalic, atraumatic, extraocular movements intact Cardiovascular: regular rate and rhythm Respiratory: non-labored respirations with equal chest wall expansion. Abdomen: Soft, nondistended Breast: Left breast incision site is healing well with good granulation tissue, there are small areas less than 3 mm of necrotic tissue Neuro: cranial nerves II-XII grossly intact Musculoskeletal: able to move all four extremities. Psych: appropriate mood and affect Skin: no signs of erythema, edema or infection. Labs: Post operative labs reviewed Assessment/Plan: -we will transition her off of the wound VAC as she was having difficulties keeping appropriate suction at home. She will now perform b.i.d. wet-to-dry dressing changes. She was provided with materials today in the clinic. She was no restrictions. She was okay to shower. We would recommend that she follow up with me in 2 weeks to re-evaluate the wound I spent greater than 5 minutes in total reviewing the patient's chart, interviewing the patient, and documenting today's visit. Raymundo Pisano MD Bariatric and Minimally Invasive General Surgery documented in this encounter [facility] 11-10-2024 Emergency department Note Discharge instructions discussed with patient, no questions at this time. Patient and belongings ambulated off of unit. [facility] 11-10-2024 Emergency department Note Discharge instructions discussed with patient, no questions at this time. Patient and belongings ambulated off of unit. Patient tolerated dressing change to left breast with ease. Dressing education provided and importance of keeping appointment in am reiterated. Spoke with , orders to change to wet to dry dressing and have patient keep her 11 am appointment tomorrow. Emergency Department Report [facility] EMERGENCY DEPARTMENT Service Date:.11/10/24 PCP: Ant Hodge Chief Complaint: Chief Complaint Patient presents with Wound Check Arrived via [facility] reports home health unable to change wound vac dressing tonight. patient reports machine not working and was told to change to [id number] and see tomorrow at 11am HPI Vinod Ann is a 49 y.o. female presents to the ED today due to concern about wound VAC. Patient states that she thinks her wound VAC machine is not functioning. Review of Systems: Review of Systems Constitutional: Negative for fever. 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 Past Surgical History: Past Surgical History: Procedure Laterality Date MASTECTOMY PARTIAL (LUMPECTOMY) Left 10/30/2024 Laterality: Left; Surgeon: Colby Pisano MD; Location: [facility] EXCISION BREAST CYST FIBROADENOMA LESION Left 09/26/2024 Laterality: Left; Surgeon: Colby Pisano MD; Location: [facility] CHOLECYSTECTOMY LAPAROSCOPIC HAND SURGERY Left I&D ABSCESS Bilateral breast LAPAROTOMY EXPLORATORY LEEP PROCEDURE REPAIR LIGAMENT HAND WRIST Left Allergies: Allergies Allergen Reactions Cephalexin Diarrhea and Hives Fenofibrate Other Reaction(s): Other: See Comments Hives with GI upset (emesis) Sertraline Diarrhea and Hives Olanzapine Hives Other Reaction(s): Mental Status Change, Other (See Comments) States makes her agitated Suicidal thoughts *Adhesive Tape Itching Clindamycin Hives States has take since with no issue 08/06/20. Elba Broussard MA States has take since with no issue 08/06/20. Elba Broussard MA Medications: Patient's Medications New Prescriptions No medications on file Previous Medications ACETAMINOPHEN EXTRA STRENGTH 500 MG TABLET Take 2 tablets by mouth 3 times daily as needed. ALBUTEROL 108 (90 BASE) MCG/ACT AERO SOLN INHALER Inhale 2 puffs every 6 hours as needed. AMLODIPINE 5 MG TABLET Take 1 tablet by mouth daily. am ASPIRIN 81 MG CAPSULE Take 81 mg by mouth daily. BLOOD GLUCOSE MONITORING SUPPL ([employer] VERIO FLEX SYSTEM) W/DEVICE KIT CHOLECALCIFEROL (VITAMIN D3) 1.25 MG (43952 UT) CAPSULE Take 1 capsule by mouth once a week. CILOSTAZOL 100 MG TABLET Take 1 tablet by mouth 2 times daily. CLONIDINE 0.1 MG TABLET Take 1 tablet by mouth daily. [employer] LANCETS 33G MISC FAMOTIDINE 40 MG TABLET Take 1 tablet by mouth at bedtime. FLUTICASONE 50 MCG/ACT SUSPENSION NASAL SPRAY 1 spray by Nasal route daily. FOLIC ACID 1 MG TABLET Take 1 tablet by mouth daily. GABAPENTIN 100 MG CAPSULE Take 2 capsules by mouth 3 times daily for 7 days. HYDROXYZINE PAMOATE 25 MG CAPSULE Take 1 capsule by mouth 3 times daily as needed for Anxiety. IBUPROFEN 200 MG TABLET Take 2 tablets by mouth every 8 hours for 7 days. METOPROLOL SUCCINATE 25 MG TABLET XL Take 1 tablet by mouth at bedtime. MIRTAZAPINE 45 MG TABLET Take 1 tablet by mouth every evening at 6 PM. OMEPRAZOLE [address] CAPSULE Take 1 capsule by mouth daily. ONETOUCH VERIO STRIP STRIP by In Vitro route before meals & at bedtime as needed for Other. OXYBUTYNIN 15 MG TAB SR 24 HR Take 1 tablet by mouth daily. PRAZOSIN 2 MG CAPSULE Take 1 capsule by mouth at bedtime. ROSUVASTATIN 10 MG TABLET Take 1 tablet by mouth daily. VARENICLINE TARTRATE, STARTER, (CHANTIX STARTING MONTH ) 0.5 MG X 11 & 1 MG X 42 TAB THERAPY PACK TABLET Take 0.5mg daily for 3 days (days 1-3), then 0.5mg two times a day for 4 days (days 4-7), then 1mg two times a day XARELTO 20 MG TABLET Take 1 tablet by mouth daily with dinner. Modified Medications No medications on file Discontinued Medications No medications on file Family History: No family history on file. Social History: Social History Socioeconomic History Marital status: Single Spouse name: Not on file Number of children: Not on file Years of education: Not on file Highest education level: Not on file Occupational History Not on file Tobacco Use Smoking status: Every Day Current packs/day: 2.00 Average packs/day: 2.0 packs/day for 36.0 years (72.0 ttl pk-yrs) Types: Cigarettes Start date: 1988 Passive exposure: Current Smokeless tobacco: Never Vaping Use Vaping status: Some Days Substance and Sexual Activity Alcohol use: Not Currently Drug use: Not Currently Types: Methamphetamines, Marijuana, Cocaine Comment: former; bath salts not for 6 months Sexual activity: Not Currently control/protection: Menopause Other Topics Concern Service Not Asked Blood Transfusions Not Asked Caffeine Concern Not Asked Occupational Exposure Not Asked Hobby Hazards Not Asked Sleep Concern Not Asked Stress Concern Not Asked Weight Concern Not Asked Special Diet Not Asked Back Care Not Asked Exercise Not Asked Bike Helmet Not Asked Seat Belt Not Asked Domestic Violence No Social History Narrative Not on file Social Determinants of Health Financial Resource Strain: Not on file Food Insecurity: Food Insecurity Present (12/14/2023) Received from [facility] Hunger Vital Sign Worried About Running Out of Food in the Last Year: Sometimes true Ran Out of Food in the Last Year: Sometimes true Transportation Needs: Unmet Transportation Needs (12/14/2023) Received from [facility] PRAPARE - Transportation Lack of Transportation (Medical): Yes Lack of Transportation (Non-Medical): Yes Physical Activity: Not on file Stress: Not on file Social Connections: Not on file Intimate Partner Violence: Not on file Housing Stability: Not on file Physical Exam: Physical Exam Vitals and nursing note reviewed. Constitutional: Appearance: Normal appearance. Eyes: Conjunctiva/sclera: Conjunctivae normal. Neurological: Mental Status: She is alert and oriented to person, place, and time. Psychiatric: Mood and Affect: Mood normal. Behavior: Behavior normal. Vital Signs During ED Visit Patient Vitals for the past 24 hrs: BP Temp Temp src Pulse Resp SpO2 Weight 11/10/242018 -- -- -- -- -- -- 106.1 kg (234 lb) 11/10/242014 105/79 98.7 F (37.1 C) Oral 110 16 95 % -- Orders/Results: Orders Placed This Encounter Gabapentin (NEURONTIN) capsule 200 mg acetaminophen (TYLENOL) tablet 1,000 mg Results for orders placed or performed during the hospital encounter of 11/01/24 CBC, EDIF, PLATELET Result Value Ref Range WBC (WHITE BLOOD COUNT) 12.0 (H) 3.6 - 11.0 10*3/uL RBC 5.16 4.0 - 5.4 10*6/uL HEMOGLOBIN (HGB) 14.4 12.0 - 16.0 G/DL HEMATOCRIT (HCT) 43.2 36.0 - 48.0 % MEAN CELL VOLUME 83.8 80.0 - 100.0 FL Mean Cell HGB 27.9 26.0 - 35.0 PG MEAN CELL HGB CONCENTRATION 33.3 27.0 - 37.0 G/DL RBC DISTRIBUTION 16.9 (H) 11.5 - 14.5 % PLATELET COUNT 297 130 - 400 10*3/uL MEAN PLATELET VOLUME 8.0 7.4 - 11.0 FL DIFFERENTIAL TYPE AUTO DIFF % NEUTROPHILS 55.9 37.0 - 75.0 % LYMPHOCYTE 35.0 20.0 - 55.0 % MONOCYTE % 7.0 0.0 - 10.0 % EOSINOPHIL % 1.2 0.0 - 11.0 % BASOPHIL % 0.9 0.0 - 2.0 % Absolute Neutrophil Count 6.7 (H) 1.4 - 6.5 10*3/uL LYMPHOCYTES, ABSOLUTE 4.2 (H) 1.2 - 3.4 10*3/uL MONOCYTES, ABSOLUTE 0.8 (H) 0.0 - 0.7 10*3/uL ABSOLUTE EOSINOPHIL COUNT 0.1 0.0 - 0.7 10*3/uL ABSOLUTE BASOPHIL COUNT 0.1 0.0 - 0.2 10*3/uL PROTIME-INR Result Value Ref Range PT 15.4 (H) 11.8 - 14.4 SEC INR 1.20 (H) 0.85 - 1.10 PTT Result Value Ref Range PTT 28.3 22.4 - 34.7 SEC Radiographic Imaging No orders to display Procedures: Procedures Moderate Sedation Procedure: No ED Summary/MDM Medical Decision Making Risk OTC drugs. Prescription drug management. Risk Details: Nursing staff talked to Dr. Fox who recommended bandaged with a wet-to-dry he was see the patient in the office tomorrow. Clinical Impression: 1. Visit for wound check No follow-ups on file. New Prescriptions No medications on file Discontinued Medications No medications on file An After Visit Summary was printed and given to the patient with above information. . . Ricki Archer MD 11/10/242035 documented in this encounter [facility] 11-10-2024 Emergency department Note Patient tolerated dressing change to left breast with ease. Dressing education provided and importance of keeping appointment in am reiterated. [facility] 11-10-2024 Emergency department Note Spoke with , orders to change to wet to dry dressing and have patient keep her 11 am appointment tomorrow. [facility] 11-10-2024 Physician Emergency department Note Emergency Department Report [facility] EMERGENCY DEPARTMENT Service Date:.11/10/24 PCP: Ant Hodge Chief Complaint: Chief Complaint Patient presents with Wound Check Arrived via [facility] reports home health unable to change wound vac dressing tonight. patient reports machine not working and was told to change to [id number] and see tomorrow at 11am HPI Vinod Ann is a 49 y.o. female presents to the ED today due to concern about wound VAC. Patient states that she thinks her wound VAC machine is not functioning. Review of Systems: Review of Systems Constitutional: Negative for fever. 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 Past Surgical History: Past Surgical History: Procedure Laterality Date MASTECTOMY PARTIAL (LUMPECTOMY) Left 10/30/2024 Laterality: Left; Surgeon: Colby Pisano MD; Location: [facility] ONT OR EXCISION BREAST CYST FIBROADENOMA LESION Left 09/26/2024 Laterality: Left; Surgeon: Colby Pisano MD; Location: [facility] BUC OR CHOLECYSTECTOMY LAPAROSCOPIC HAND SURGERY Left I&D ABSCESS Bilateral breast LAPAROTOMY EXPLORATORY LEEP PROCEDURE REPAIR LIGAMENT HAND WRIST Left Allergies: Allergies Allergen Reactions Cephalexin Diarrhea and Hives Fenofibrate Other Reaction(s): Other: See Comments Hives with GI upset (emesis) Sertraline Diarrhea and Hives Olanzapine Hives Other Reaction(s): Mental Status Change, Other (See Comments) States makes her agitated Suicidal thoughts *Adhesive Tape Itching Clindamycin Hives States has take since with no issue 08/06/20. Elba Broussard MA States has take since with no issue 08/06/20. Elba Broussard MA Medications: Patient's Medications New Prescriptions No medications on file Previous Medications ACETAMINOPHEN EXTRA STRENGTH 500 MG TABLET Take 2 tablets by mouth 3 times daily as needed. ALBUTEROL 108 (90 BASE) MCG/ACT AERO SOLN INHALER Inhale 2 puffs every 6 hours as needed. AMLODIPINE 5 MG TABLET Take 1 tablet by mouth daily. am ASPIRIN 81 MG CAPSULE Take 81 mg by mouth daily. BLOOD GLUCOSE MONITORING SUPPL ([employer] VERIO FLEX SYSTEM) W/DEVICE KIT CHOLECALCIFEROL (VITAMIN D3) 1.25 MG (17631 UT) CAPSULE Take 1 capsule by mouth once a week. CILOSTAZOL 100 MG TABLET Take 1 tablet by mouth 2 times daily. CLONIDINE 0.1 MG TABLET Take 1 tablet by mouth daily. [employer] UNILET LANCETS 33G MISC FAMOTIDINE 40 MG TABLET Take 1 tablet by mouth at bedtime. FLUTICASONE 50 MCG/ACT SUSPENSION NASAL SPRAY 1 spray by Nasal route daily. FOLIC ACID 1 MG TABLET Take 1 tablet by mouth daily. GABAPENTIN 100 MG CAPSULE Take 2 capsules by mouth 3 times daily for 7 days. HYDROXYZINE PAMOATE 25 MG CAPSULE Take 1 capsule by mouth 3 times daily as needed for Anxiety. IBUPROFEN 200 MG TABLET Take 2 tablets by mouth every 8 hours for 7 days. METOPROLOL SUCCINATE 25 MG TABLET XL Take 1 tablet by mouth at bedtime. MIRTAZAPINE 45 MG TABLET Take 1 tablet by mouth every evening at 6 PM. OMEPRAZOLE [address] CAPSULE Take 1 capsule by mouth daily. Coherent Path[employer]CH VERIO STRIP STRIP by In Vitro route before meals & at bedtime as needed for Other. OXYBUTYNIN 15 MG TAB SR 24 HR Take 1 tablet by mouth daily. PRAZOSIN 2 MG CAPSULE Take 1 capsule by mouth at bedtime. ROSUVASTATIN 10 MG TABLET Take 1 tablet by mouth daily. VARENICLINE TARTRATE, STARTER, (CHANTIX STARTING MONTH ) 0.5 MG X 11 & 1 MG X 42 TAB THERAPY PACK TABLET Take 0.5mg daily for 3 days (days 1-3), then 0.5mg two times a day for 4 days (days 4-7), then 1mg two times a day XARELTO 20 MG TABLET Take 1 tablet by mouth daily with dinner. Modified Medications No medications on file Discontinued Medications No medications on file Family History: No family history on file. Social History: Social History Socioeconomic History Marital status: Single Spouse name: Not on file Number of children: Not on file Years of education: Not on file Highest education level: Not on file Occupational History Not on file Tobacco Use Smoking status: Every Day Current packs/day: 2.00 Average packs/day: 2.0 packs/day for 36.0 years (72.0 ttl pk-yrs) Types: Cigarettes Start date: 1988 Passive exposure: Current Smokeless tobacco: Never Vaping Use Vaping status: Some Days Substance and Sexual Activity Alcohol use: Not Currently Drug use: Not Currently Types: Methamphetamines, Marijuana, Cocaine Comment: former; bath salts not for 6 months Sexual activity: Not Currently control/protection: Menopause Other Topics Concern Service Not Asked Blood Transfusions Not Asked Caffeine Concern Not Asked Occupational Exposure Not Asked Hobby Hazards Not Asked Sleep Concern Not Asked Stress Concern Not Asked Weight Concern Not Asked Special Diet Not Asked Back Care Not Asked Exercise Not Asked Bike Helmet Not Asked Seat Belt Not Asked Domestic Violence No Social History Narrative Not on file Social Determinants of Health Financial Resource Strain: Not on file Food Insecurity: Food Insecurity Present (12/14/2023) Received from [facility] Hunger Vital Sign Worried About Running Out of Food in the Last Year: Sometimes true Ran Out of Food in the Last Year: Sometimes true Transportation Needs: Unmet Transportation Needs (12/14/2023) Received from [facility] PRAPARE - Transportation Lack of Transportation (Medical): Yes Lack of Transportation (Non-Medical): Yes Physical Activity: Not on file Stress: Not on file Social Connections: Not on file Intimate Partner Violence: Not on file Housing Stability: Not on file Physical Exam: Physical Exam Vitals and nursing note reviewed. Constitutional: Appearance: Normal appearance. Eyes: Conjunctiva/sclera: Conjunctivae normal. Neurological: Mental Status: She is alert and oriented to person, place, and time. Psychiatric: Mood and Affect: Mood normal. Behavior: Behavior normal. Vital Signs During ED Visit Patient Vitals for the past 24 hrs: BP Temp Temp src Pulse Resp SpO2 Weight 11/10/242018 -- -- -- -- -- -- 106.1 kg (234 lb) 11/10/242014 105/79 98.7 F (37.1 C) Oral 110 16 95 % -- Orders/Results: Orders Placed This Encounter Gabapentin (NEURONTIN) capsule 200 mg acetaminophen (TYLENOL) tablet 1,000 mg Results for orders placed or performed during the hospital encounter of 11/01/24 CBC, EDIF, PLATELET Result Value Ref Range WBC (WHITE BLOOD COUNT) 12.0 (H) 3.6 - 11.0 10*3/uL RBC 5.16 4.0 - 5.4 10*6/uL HEMOGLOBIN (HGB) 14.4 12.0 - 16.0 G/DL HEMATOCRIT (HCT) 43.2 36.0 - 48.0 % MEAN CELL VOLUME 83.8 80.0 - 100.0 FL Mean Cell HGB 27.9 26.0 - 35.0 PG MEAN CELL HGB CONCENTRATION 33.3 27.0 - 37.0 G/DL RBC DISTRIBUTION 16.9 (H) 11.5 - 14.5 % PLATELET COUNT 297 130 - 400 10*3/uL MEAN PLATELET VOLUME 8.0 7.4 - 11.0 FL DIFFERENTIAL TYPE AUTO DIFF % NEUTROPHILS 55.9 37.0 - 75.0 % LYMPHOCYTE 35.0 20.0 - 55.0 % MONOCYTE % 7.0 0.0 - 10.0 % EOSINOPHIL % 1.2 0.0 - 11.0 % BASOPHIL % 0.9 0.0 - 2.0 % Absolute Neutrophil Count 6.7 (H) 1.4 - 6.5 10*3/uL LYMPHOCYTES, ABSOLUTE 4.2 (H) 1.2 - 3.4 10*3/uL MONOCYTES, ABSOLUTE 0.8 (H) 0.0 - 0.7 10*3/uL ABSOLUTE EOSINOPHIL COUNT 0.1 0.0 - 0.7 10*3/uL ABSOLUTE BASOPHIL COUNT 0.1 0.0 - 0.2 10*3/uL PROTIME-INR Result Value Ref Range PT 15.4 (H) 11.8 - 14.4 SEC INR 1.20 (H) 0.85 - 1.10 PTT Result Value Ref Range PTT 28.3 22.4 - 34.7 SEC Radiographic Imaging No orders to display Procedures: Procedures Moderate Sedation Procedure: No ED Summary/MDM Medical Decision Making Risk OTC drugs. Prescription drug management. Risk Details: Nursing staff talked to Dr. Fox who recommended bandaged with a wet-to-dry he was see the patient in the office tomorrow. Clinical Impression: 1. Visit for wound check No follow-ups on file. New Prescriptions No medications on file Discontinued Medications No medications on file An After Visit Summary was printed and given to the patient with above information. . . Ricki Archer MD 11/10/242035 [facility] 11-07-2024 History of Present illness Narrative Follow Up Visit Vinod Ann [id number] 1975 11/07/2024 Chief Complaint Patient presents with Follow-up Presenting for 3 month follow up for chronic disease Has pain of 7 in left breast and arm with rest and movement History of Present Illness: Vinod Ann is a 49 y.o. female presenting for follow up of multiple chronic disease Last seen on 08/06/2024 Previous visit plan Assessment and Plan: Vinod Ann is a 49 y.o. female that presents for follow up for follow-up on thrush and cellulitis, chronic disease management Peripheral arterial disease: Continue on aspirin 81 mg daily it is unclear if patient is following with her vascular surgeon or not we will continue to reach out to them to see if patient was met to follow-up Hypertension: Blood pressure is controlled on current antihypertensive regimen no change today refill clonidine Palpitations/tachycardia: We will refer patient to Cardiology for evaluation Hyperlipidemia: Continue on statin therapy refill rosuvastatin 10 mg daily GERD: Continue on omeprazole 40 mg daily refill sent to pharmacy Vitamin-D deficiency: Prescribed vitamin D3 20802 unit capsule once a week Night terrors: Continue on prazosin 2 mg daily at bedtime We will have staff contact the facility where patient currently resides patient is in need of case management for medical management she is not able to follow-up in her healthcare she is not able to manage her own medications. Follow-up in 3 months Since last visit patient has been seen by ENT, General surgery, OBGYN, cardiology, and psychiatry All notes available in the record Today: HTN: BP well controlled, saw cardiology Started yon Metoprolol, patient has not started taking yet. 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 No pertinent family history. Social History Socioeconomic History Marital status: Single Tobacco Use Smoking status: Every Day Current packs/day: 2.00 Average packs/day: 2.0 packs/day for 36.0 years (72.0 ttl pk-yrs) Types: Cigarettes Start date: 1988 Passive exposure: Current Smokeless tobacco: Never Vaping Use Vaping status: Some Days Substance and Sexual Activity Alcohol use: Not Currently Drug use: Not Currently Types: Methamphetamines, Marijuana, Cocaine Comment: former; bath salts not for 6 months Sexual activity: Not Currently control/protection: Menopause Other Topics Concern Domestic Violence No Social Determinants of Health Food Insecurity: Food Insecurity Present (12/14/2023) Received from [facility] Hunger Vital Sign Worried About Running Out of Food in the Last Year: Sometimes true Ran Out of Food in the Last Year: Sometimes true Transportation Needs: Unmet Transportation Needs (12/14/2023) Received from [facility] PRAP[facility] - Transportation Lack of Transportation (Medical): Yes Lack of Transportation (Non-Medical): Yes Social History Tobacco Use Smoking Status Every Day Current packs/day: 2.00 Average packs/day: 2.0 packs/day for 36.0 years (72.0 ttl pk-yrs) Types: Cigarettes Start date: 1988 Passive exposure: Current Smokeless Tobacco Never Social History Substance and Sexual Activity Alcohol Use Not Currently Social History Substance and Sexual Activity Drug Use Not Currently Types: Methamphetamines, Marijuana, Cocaine Comment: former; bath salts not for 6 months Allergies: Cephalexin, Fenofibrate, Sertraline, Olanzapine, *adhesive tape, and Clindamycin Home Medications: Current Outpatient Medications: Aspirin 81 MG capsule, Take 81 mg by mouth daily., Disp: 90 capsule, Rfl: 1 Blood Glucose Monitoring Suppl ([employer] OnDemandTouch Verio Flex System) w/Device Kit, , Disp: , Rfl: Cholecalciferol (Vitamin D3) 1.25 MG (35213 UT) capsule, Take 1 capsule by mouth once a week., Disp: 12 capsule, Rfl: 0 cloNIDine 0.1 MG tablet, Take 1 tablet by mouth daily. (Patient taking differently: Take 1 tablet by mouth daily. pm), Disp: 30 tablet, Rfl: 2 [employer] Unilet Lancets 33G Mis, , Disp: , Rfl: famotidine 40 MG tablet, Take 1 tablet by mouth at bedtime., Disp: , Rfl: fluticasone 50 MCG/ACT Suspension nasal spray, 1 spray by Nasal route daily., Disp: 9.9 mL, Rfl: 11 Gabapentin 100 MG capsule, Take 2 capsules by mouth 3 times daily for 7 days., Disp: 42 capsule, Rfl: 0 mirtazapine 45 MG tablet, Take 1 tablet by mouth every evening at 6 PM., Disp: 30 tablet, Rfl: 2 omeprazole [address] capsule, Take 1 capsule by mouth daily. (Patient taking differently: Take 1 capsule by mouth daily. am), Disp: 90 capsule, Rfl: 2 OneTouch Verio Strip strip, by In Vitro route before meals & at bedtime as needed for Other., Disp: , Rfl: oxyBUTYnin 15 MG Tab SR 24 HR, Take 1 tablet by mouth daily., Disp: 30 tablet, Rfl: 2 Rosuvastatin 10 MG tablet, Take 1 tablet by mouth daily. (Patient taking differently: Take 1 tablet by mouth daily. pm), Disp: 90 tablet, Rfl: 2 Xarelto 20 MG tablet, Take 1 tablet by mouth daily with dinner., Disp: 30 tablet, Rfl: 1 Acetaminophen Extra Strength 500 MG tablet, Take 2 tablets by mouth 3 times daily as needed., Disp: 60 tablet, Rfl: 2 Albuterol 108 (90 Base) MCG/ACT Aero Soln inhaler, Inhale 2 puffs every 6 hours as needed., Disp: 18 g, Rfl: 3 amLODIPine 5 MG tablet, Take 1 tablet by mouth daily. am, Disp: 30 tablet, Rfl: 3 aripiprazole 30 MG tablet, Take 1 tablet by mouth daily., Disp: , Rfl: Cilostazol 100 MG tablet, Take 1 tablet by mouth 2 times daily., Disp: 60 tablet, Rfl: 3 Folic acid 1 MG tablet, Take 1 tablet by mouth daily., Disp: 30 tablet, Rfl: 3 hydrOXYzine pamoate 25 MG capsule, Take 1 capsule by mouth 3 times daily as needed for Anxiety., Disp: 90 capsule, Rfl: 0 Ibuprofen 200 MG tablet, Take 2 tablets by mouth every 8 hours for 7 days., Disp: 42 tablet, Rfl: 0 Metoprolol succinate 25 MG tablet XL, Take 1 tablet by mouth at bedtime. (Patient not taking: Reported on 11/11/2024), Disp: 30 tablet, Rfl: 11 Prazosin 2 MG capsule, Take 1 capsule by mouth at bedtime., Disp: 30 capsule, Rfl: 3 Varenicline Tartrate, Starter, (Chantix Starting Month ) 0.5 MG X 11 & 1 MG X 42 Tab Therapy Pack tablet, Take 0.5mg daily for 3 days (days 1-3), then 0.5mg two times a day for 4 days (days 4-7), then 1mg two times a day (Patient not taking: Reported on 10/09/2024), Disp: 1 Each, Rfl: 0 ROS: Review of Systems Constitutional: Negative for activity change, appetite change, fatigue and fever. Respiratory: Negative for chest tightness and shortness of breath. Cardiovascular: Negative for chest pain, palpitations and leg swelling. Gastrointestinal: Negative for diarrhea, nausea and vomiting. Musculoskeletal: Positive for myalgias. Negative for arthralgias. Skin: Positive for wound. Neurological: Negative for dizziness, light-headedness and headaches. Psychiatric/Behavioral: Negative for dysphoric mood and sleep disturbance. The patient is nervous/anxious. Physical Examination: Vital Signs: BP 110/80 Pulse 121 Temp 97.2 F (36.2 C) Resp 18 Ht 1.651 m (5' 5) Wt 105.3 kg (232 lb 3.2 oz) SpO2 97% BMI 38.64 kg/m Smoking Status Every Day No notes on file Physical Exam Vitals reviewed. Constitutional: General: She is not in acute distress. Appearance: Normal appearance. She is obese. She is not ill-appearing. Eyes: Pupils: Pupils are equal, round, and reactive to light. Cardiovascular: Rate and Rhythm: Normal rate and regular rhythm. Pulmonary: Effort: Pulmonary effort is normal. Breath sounds: Normal breath sounds. Skin: General: Skin is warm and dry. Comments: Wound VAC left breast Neurological: Mental Status: She is alert and oriented to person, place, and time. Psychiatric: Attention and Perception: Attention normal. Mood and Affect: Mood is anxious. Behavior: Behavior normal. Behavior is cooperative. Thought Content: Thought content normal. Procedure none Laboratory and Additional Data Reviewed: Results for orders placed or performed during the hospital encounter of 11/01/24 CBC, EDIF, PLATELET Result Value Ref Range WBC (WHITE BLOOD COUNT) 12.0 (H) 3.6 - 11.0 10*3/uL RBC 5.16 4.0 - 5.4 10*6/uL HEMOGLOBIN (HGB) 14.4 12.0 - 16.0 G/DL HEMATOCRIT (HCT) 43.2 36.0 - 48.0 % MEAN CELL VOLUME 83.8 80.0 - 100.0 FL Mean Cell HGB 27.9 26.0 - 35.0 PG MEAN CELL HGB CONCENTRATION 33.3 27.0 - 37.0 G/DL RBC DISTRIBUTION 16.9 (H) 11.5 - 14.5 % PLATELET COUNT 297 130 - 400 10*3/uL MEAN PLATELET VOLUME 8.0 7.4 - 11.0 FL DIFFERENTIAL TYPE AUTO DIFF % NEUTROPHILS 55.9 37.0 - 75.0 % LYMPHOCYTE 35.0 20.0 - 55.0 % MONOCYTE % 7.0 0.0 - 10.0 % EOSINOPHIL % 1.2 0.0 - 11.0 % BASOPHIL % 0.9 0.0 - 2.0 % Absolute Neutrophil Count 6.7 (H) 1.4 - 6.5 10*3/uL LYMPHOCYTES, ABSOLUTE 4.2 (H) 1.2 - 3.4 10*3/uL MONOCYTES, ABSOLUTE 0.8 (H) 0.0 - 0.7 10*3/uL ABSOLUTE EOSINOPHIL COUNT 0.1 0.0 - 0.7 10*3/uL ABSOLUTE BASOPHIL COUNT 0.1 0.0 - 0.2 10*3/uL PROTIME-INR Result Value Ref Range PT 15.4 (H) 11.8 - 14.4 SEC INR 1.20 (H) 0.85 - 1.10 PTT Result Value Ref Range PTT 28.3 22.4 - 34.7 SEC No images are attached to the encounter. Assessment and Plan: Vinod Ann is a 49 y.o. female that presents for follow up for hypertension, GERD methamphetamine abuse in remission Hypertension: Blood pressure is controlled on current antihypertensive regimen no changes GERD: Symptoms controlled on omeprazole 40 mg daily Methamphetamine abuse in remission: Patient lives in [facility] here in [facility] doing well remains sober; attending meetings and participating in therapy/counseling services Bipolar 1 disorder: Patient is managed by Psychiatry Left breast abscess: Following with General surgery currently wound VAC in place Follow-up in 3 months Call the office for any questions or concerns. I did have discussion that if any medications are not covered or is not able to get the medications to call the office and let us know so other alternative/arrangements can be made. Vinod was seen today for follow-up. Diagnoses and all orders for this visit: Essential hypertension Gastroesophageal reflux disease, unspecified whether esophagitis present Methamphetamine abuse in remission Bipolar 1 disorder Medically noncompliant Left breast abscess JOSE Jauregui documented in this encounter [facility] 11-04-2024 History of Present illness Narrative Post-Operative Visit Note Subjective: Vinod Ann is a 49 y.o. female, is s/p central lumpectomy for chronic abscess. She was doing well status post central lumpectomy with a wound VAC placement. She reports that she had some mild bleeding under the dressing after the 1st dressing change presented to the emergency department. During her subsequent changes this has improved. Denies issues with constipation or diarrhea. Denies any abdominal pain. Energy levels back to baseline. 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 Past Surgical History: Past Surgical History: Procedure Laterality Date MASTECTOMY PARTIAL (LUMPECTOMY) Left 10/30/2024 Laterality: Left; Surgeon: Colby Pisano MD; Location: [facility] OR EXCISION BREAST CYST FIBROADENOMA LESION Left 09/26/2024 Laterality: Left; Surgeon: Colby Pisano MD; Location: [facility]UC OR CHOLECYSTECTOMY LAPAROSCOPIC HAND SURGERY Left I&D ABSCESS Bilateral breast LAPAROTOMY EXPLORATORY LEEP PROCEDURE REPAIR LIGAMENT HAND WRIST Left Social History: Social History Socioeconomic History Marital status: Single Tobacco Use Smoking status: Every Day Current packs/day: 2.00 Average packs/day: 2.0 packs/day for 36.0 years (72.0 ttl pk-yrs) Types: Cigarettes Start date: 1988 Smokeless tobacco: Never Vaping Use Vaping status: Some Days Substance and Sexual Activity Alcohol use: Not Currently Drug use: Not Currently Types: Methamphetamines, Marijuana, Cocaine Comment: former; bath salts not for 6 months Sexual activity: Not Currently control/protection: Menopause Other Topics Concern Domestic Violence No Social Determinants of Health Food Insecurity: Food Insecurity Present (12/14/2023) Received from [facility] Hun[facility] Vital Sign Worried About Running Out of Food in the Last Year: Sometimes true Ran Out of Food in the Last Year: Sometimes true Transportation Needs: Unmet Transportation Needs (12/14/2023) Received from [facility] - Transportation Lack of Transportation (Medical): Yes Lack of Transportation (Non-Medical): Yes Review of Systems: Constitutional: No fevers/chills CV: No chest pain Resp: no SOB GI: no bowel issues Medications: Current Outpatient Medications Medication Sig Taking? Last Dose Start Date End Date Authorizing Provider acetaminophen 500 MG tablet 1,000 mg, Oral, EVERY 8 HOURS Yes Taking 10/30/24 11/06/24 S Raymundo Pisano MD Acetaminophen Extra Strength 500 MG tablet 2 tablets, Oral, 3 TIMES DAILY NEEDED Yes Taking 10/09/24 JOSE Jauregui Albuterol 108 (90 Base) MCG/ACT Aero Soln inhaler 2 puffs, Inhalation, EVERY 6 HOURS NEEDED Yes Taking Historical Provider amLODIPine 5 MG tablet 1 tablet, Oral, DAILY, am Yes Taking 08/15/24 Historical Provider Aspirin 81 MG capsule 81 mg, Oral, DAILY Yes Taking 08/06/24 JOSE Jauregui Cholecalciferol (Vitamin D3) 1.25 MG (93936 UT) capsule 50,000 Units, Oral, WEEKLY Yes Taking 10/16/24 JOSE Jauregui Cilostazol 100 MG tablet 100 mg, Oral, 2 TIMES DAILY Yes Taking 08/14/24 JOSE Jauregui cloNIDine 0.1 MG tablet 0.1 mg, Oral, DAILY Patient taking differently: Take 1 tablet by mouth daily. pm Yes Taking 10/20/24 JOSE Jauregui Docusate 100 MG capsule 100 mg, Oral, 2 TIMES DAILY Yes Taking 10/30/24 S Raymundo Pisano MD famotidine 40 MG tablet 1 tablet, Oral, DAILY AT BEDTIME Yes Taking 10/16/24 11/15/24 Historical Provider fluticasone 50 MCG/ACT Suspension nasal spray 1 spray, Nasal, DAILY Yes Taking 08/01/24 08/01/25 She Treadwell MD Folic acid 1 MG tablet 1 mg, Oral, DAILY Yes Taking Historical Provider Gabapentin 100 MG capsule 200 mg, Oral, 3 TIMES DAILY Yes Taking 10/31/24 11/07/24 S Raymundo Pisano MD hydrOXYzine pamoate 25 MG capsule 25 mg, Oral, 3 TIMES DAILY NEEDED Yes Taking 10/20/24 JOSE Jauregui Ibuprofen 200 MG tablet 400 mg, Oral, EVERY 8 HOURS Yes Taking 10/30/24 11/06/24 S Raymundo Pisano MD Metoprolol succinate 25 MG tablet XL 25 mg, Oral, DAILY AT BEDTIME Yes Taking 10/16/24 Geronimo Simon DO mirtazapine 45 MG tablet 45 mg, Oral, DAILY EARLY EVENING Yes Taking 10/16/24 JOSE Jauregui omeprazole [address] capsule 40 mg, Oral, DAILY Patient taking differently: Take 1 capsule by mouth daily. am Yes Taking 08/06/24 JOSE Jauregui OneTouch Verio Strip strip In Vitro, BEFORE MEALS & AT BEDTIME NEEDED Yes Taking Historical Provider oxyBUTYnin 15 MG Tab SR 24 HR 15 mg, Oral, DAILY Yes Taking 10/09/24 JOSE Jauregui Prazosin 2 MG capsule 2 mg, Oral, DAILY AT BEDTIME Yes Taking 08/06/24 JOSE Jauregui Rosuvastatin 10 MG tablet 10 mg, Oral, DAILY Patient taking differently: Take 1 tablet by mouth daily. pm Yes Taking 08/06/24 JOSE Jauregui Xarelto 20 MG tablet 20 mg, Oral, DAILY WITH DINNER Yes Taking 10/20/24 12/19/24 JOSE Jauregui aripiprazole 20 MG tablet 20 mg, Oral, DAILY Patient taking differently: Take 1.5 tablets by mouth daily. 08/06/24 10/30/24 JOSE Jauregui Blood Glucose Monitoring Suppl (OneTouch Verio Flex System) w/Device Kit Not Taking 03/28/24 Historical Provider Drug [place] Unilet Lancets 33G Misc Not Taking 07/20/24 Historical Provider Varenicline Tartrate, Starter, (Chantix Starting Month ) 0.5 MG X 11 & 1 MG X 42 Tab Therapy Pack tablet Take 0.5mg daily for 3 days (days 1-3), then 0.5mg two times a day for 4 days (days 4-7), then 1mg two times a day Patient not taking: Reported on 10/09/2024 Not Taking 08/14/24 JOSE Jauregui Objective: Vitals: 11/04/24 0932 BP: 122/60 Resp: 20 Physical Exam: General Appearance: alert and oriented, no acute distress HEENT: normocephalic, atraumatic, extraocular movements intact Breast: Left breast with wound VAC in place 125 mmHg of negative pressure, no bleeding underneath the Tegaderm. Cardiovascular: regular rate and rhythm Respiratory: non-labored respirations with equal chest wall expansion. Abdomen: Soft, nondistended Neuro: cranial nerves II-XII grossly intact Musculoskeletal: able to move all four extremities. Psych: appropriate mood and affect Skin: no signs of erythema, edema or infection. Labs: Post operative labs reviewed Assessment/Plan: -she was doing well status post central lumpectomy of the left breast with wound VAC placement. She is on a Sunday wound VAC exchange in his due to have this done tomorrow. I will see him next Sunday and perform the wound VAC change myself to evaluate the granulation tissue. She was in agreement to the plan. I spent greater than 5 minutes in total reviewing the patient's chart, interviewing the patient, and documenting today's visit. Raymundo Pisano MD Bariatric and Minimally Invasive General Surgery documented in this encounter [facility] 11-03-2024 Telephone encounter Note Patient called in reporting that she had a different home health nurse today than normal doing her dressing change. She report some pain and discomfort after dressing change. She is going to try taking her pain control medication and call back if the pain does not improve. Understanding verbalized. [facility] 11-03-2024 Miscellaneous Notes Patient called in reporting that she had a different home health nurse today than normal doing her dressing change. She report some pain and discomfort after dressing change. She is going to try taking her pain control medication and call back if the pain does not improve. Understanding verbalized. Following up with Vinod after her ED visit. She wants to know if she continues her blood thinner. According to ED note, she can continue it. Bandage change today with [facility]. Post op appointment tomorrow with Dr. Pisano at 9:30 AM. No change in condition. documented in this encounter [facility] 11-03-2024 Telephone encounter Note Following up with Vinod after her ED visit. She wants to know if she continues her blood thinner. According to ED note, she can continue it. Bandage change today with [facility]. Post op appointment tomorrow with Dr. Pisano at 9:30 AM. No change in condition. [facility] 11-01-2024 Emergency department Note Left breast wound vac intact , reinforced with tegaderm. Patient tolerated well. [facility] 11-01-2024 Emergency department Note Left breast wound vac intact , reinforced with tegaderm. Patient tolerated well. Message left for Dr. Pisano to return call for Liusa REA Patient states I am worried about the bleeding, I don't want to bleed out. I have pain in my nipple but nowhere else. Patient does have blood noted under tegaderm dressing and on skin under armpit. Wound vac appears to be working. Bed: E012 Expected date: Expected time: Means of arrival: Comments: EMS documented in this encounter [facility] 11-01-2024 Hospital Discharge instructions Luisa Singleton APRN-HAND SCRAPER - 11/01/2024 7:51 PM EST RETURN TO ER IF INCREASED BLEEDING documented in this encounter [facility] 11-01-2024 Emergency department Note Message left for Dr. Pisano to return call for Luisa REA [facility] 11-01-2024 Emergency department Note Patient states I am worried about the bleeding, I don't want to bleed out. I have pain in my nipple but nowhere else. Patient does have blood noted under tegaderm dressing and on skin under armpit. Wound vac appears to be working. [facility] 11-01-2024 Emergency department Note Bed: E012 Expected date: Expected time: Means of arrival: Comments: EMS [facility] 10-30-2024 Telephone encounter Note Vinod called into the office stating she left her power cord for her wound vac at the hospital in outpatient surgery. Called the [facility]. They stated they were aware. They have found the power cord and they are sending it to the patient. Called to let Vinod know, but there was no answer and no voicemail available. Vinod called back and is aware and verbalizes understanding. [facility] 10-30-2024 Miscellaneous Notes Vinod called into the office stating she left her power cord for her wound vac at the hospital in outpatient surgery. Called the [facility]. They stated they were aware. They have found the power cord and they are sending it to the patient. Called to let Vinod know, but there was no answer and no voicemail available. Vinod called back and is aware and verbalizes understanding. documented in this encounter [facility] 10-30-2024 Nurse Note Patient discharged to home via wheelchair in stable condition. Patient has met all criteria for discharge and has verbalized readiness. Patient discharged with all belongings. Care of patient transferred to patient's Staff member. Discharge instructions reviewed per this RN with patient and friend. They deny any further questions at this time. Discharge packet given to patient for take home. Patient transferred to via cart in stable condition.This RN will continue care.. Cart left in locked and lowest position with side rails up x2. Snack and call light given to patient. Monitors and alarms on and attached to patient. Wound Vac placed on left breast. Wound measuring Length - 10cm, Width 4cm, Depth 6cm. documented in this encounter [facility] 10-30-2024 Nurse Surgical operation note Patient discharged to home via wheelchair in stable condition. Patient has met all criteria for discharge and has verbalized readiness. Patient discharged with all belongings. Care of patient transferred to patient's Staff member. [facility] 10-30-2024 Nurse Surgical operation note Discharge instructions reviewed per this RN with patient and friend. They deny any further questions at this time. Discharge packet given to patient for take home. [facility] 10-30-2024 Nurse Surgical operation note Patient transferred to via cart in stable condition.This RN will continue care.. Cart left in locked and lowest position with side rails up x2. Snack and call light given to patient. Monitors and alarms on and attached to patient. [facility] 10-30-2024 Nurse Surgical operation note Wound Vac placed on left breast. Wound measuring Length - 10cm, Width 4cm, Depth 6cm. [facility] 10-30-2024 Hospital Discharge instructions S Raymundo Pisano MD - 10/30/2024 12:32 PM EST POST OPERATIVE INSTRUCTIONS FOR YOU AFTER SURGERY Dressing and Incision Care: WASH YOUR HANDS IMMEDIATELY BEFORE YOU TOUCH YOUR DRESSING OR INCISION AREA. You will have a clear plastic waterproof bandage with gauze underneath or skin glue (Dermabond). The dressing will need to stay on for 1-2 days following your surgery. When you remove the dressing you will see that your incision is closed with either: White steri-strips; These strips need to stay in place. These will peel away on their own, with time. Skin Glue; You will not need to do anything with your incision. Mango; These will be removed in the office at your post-op appointment. You may shower the day after your surgery. Wash the area around your incision gently then pat them dry--do not rub. Avoid bath, hot tub etc until after you see your doctor. Remember, your coordination will be off for the first couple of days after surgery and a slippery surface can present a dangerous challenge. Long-term care of Incision: A moisturizer (Eucerin, Vit E ointment) can be used on the incision starting 2 weeks after surgery if it is dry or itchy. Mederma can occasionally help reduce scarring. Sun exposure can worsen scarring so cover your incision and/or apply sunscreen when your incision is exposed to the sun. Activity: Avoid strenuous activity or lifting greater than 15 lbs. until you see your doctor at your first post-operative visit. You may walk around and go up and down steps in moderation. Do what is comfortable and stop and rest when you feel tired. Managing Your Pain and Medication Instructions: Place an ice pack over your dressing and the site of the hernia itself, on and off for 15-20 minutes out of each hour while awake, for the first 48 hours. You will be given instruction to take Tylenol 1000 mg every 8 hours* (It is important that you do not exceed the maximum amount of acetaminophen, 4000mg in 24 hr) and Ibuprofen 400 mg every 8 hours* while your pain persists. Using multiple different medications has proven to be better at postop pain control. * If you have significant liver or kidney disease, you should start out with only 50% of these doses of acetaminophen and ibuprofen. Please check with your kidney or liver physician regarding the appropriate ongoing dosages. You will be given a prescription for pain medication. Take this medication as directed but only if needed, for pain not relieved by the Tylenol and Ibuprofen, and with food. If you experience nausea with this medication, please call the office--we may need to prescribe something else. For questions about pain medications--please call during normal business hours. Pain medications refill requests will not be accepted after hours, weekends or holidays. This medication may make you feel drowsy or light-headed. DO NOT drive or operate any kind of vehicle, drink alcoholic beverages or make any important decisions while taking this medication. With laparoscopic/Robotic surgery that you had, carbon dioxide (CO2) gas is pumped into your abdominal cavity. You may feel abdominal, shoulder or rib pain for a few days due to the CO2. Diet: Stay on a bland diet for the next 2-3 days. Start with clear liquids, dry toast or crackers and progress if you are not nauseated. Be sure to drink plenty of non-caffeinated clear liquids (water, Gatorade, Sprite or jaya mahamed) following surgery to promote healthy bowel movements. . For diabetic patients use sugar-free alternatives. If you are a Diabetic--It is important for you to manage your blood sugars carefully and accurately to support wound healing and reduce the risk of infection. You may notice loose stool after surgery. This is normal and should resolve in a week or two. Sometimes patients develop constipation. This is a side effect of the pain medication. You may take a stool softener or mild laxative while taking the pain medication. CALL YOUR DOCTOR FOR ANY OF THE FOLLOWING: Fever greater than 101 degrees F lasting longer than 1-2 hours Excessive bleeding, redness, drainage, swelling or any other problems at the surgical site Unrelieved nausea, vomiting or persistent diarrhea Severe pain even after taking pain medication Itching, rash or hives Inability to urinate for greater than 6 hours Any issues you are concerned about Please call our office to make an appointment with your doctor if it has not already been scheduled. Raymundo Pisano MD [phone] documented in this encounter [facility] 10-30-2024 Surgery Postoperative evaluation and management note Patient: Vinod Ann Billing Number: [id number] Date of : 1975 Age: 49 y.o. Sex female Date of Surgery: 10/30/2024 Preoperative Diagnosis: Recurrent left breast abscess Postoperative Diagnosis: Same, Procedure(s) Performed: 1) central lumpectomy of the left breast, partial mastectomy Surgeon: Dr. Raymundo Pisano M.D. Anesthesia: General Complication(s): none Estimated Blood Loss: 25 mL IV Fluids: Per anesthesia record Brief History: This is a 49 y.o. year old female who presents with recurrent left breast abscess. She was previously seen at an outside facility and had multiple incision and drainage of an abscess. She presented to me with recurrent abscess and which I performed a lumpectomy, nipple sparing and placed a wound VAC. She did well for a proximally 1 month and then developed an additional abscess that was just posterior to the nipple. We had a lengthy discussion about next steps and plan for a central lumpectomy removing the nipple-areolar complex.. Operative Note: After informed consent was obtained, the patient was brought to the operating room. The patient was given preoperative prophylactic antibiotics. With the patient in supine position under adequate general endotracheal anesthesia, the left breast was prepped with ChloraPrep and draped as a sterile field. A time-out was performed for procedure verification. We started by taking a hemostat and inserting it into the abscess cavity that was immediately posterior to the nipple. We marked a curvilinear incision that included the previous incision and granulation tissue and also included all of the nipple-areolar complex. Using sharp dissection and electrocautery we excised involved breast tissue including some of the skin, nipple-areolar complex as well as breast tissue immediately posterior to the nipple. We did encounter an abscess cavity, express purulent drainage and did include all of the abscess cavity in our specimen. This was then passed off the field and sent to pathology. Prior to removing the specimen we did take a swab into the abscess cavity for culture. Next we irrigated the wound with normal saline. The wound was 10 cm x 4 cm x 6 cm. We then fashioned a piece of black foam into the defect and attached our wound VAC to 125 mmHg. The VAC held a seal without leak. . The patient tolerated the procedure well, was extubated in the operating room and transferred to the PACU in stable condition. Findings: Recurrent left breast abscess Specimens: Left breast tissue Disposition:PACU - hemodynamically stable. Condition: Stable Raymundo Pisano MD General and Bariatric Surgery [facility] 10-30-2024 Miscellaneous Notes Patient: Vinod Ann Billing Number: [id number] Date of : 1975 Age: 49 y.o. Sex female Date of Surgery: 10/30/2024 Preoperative Diagnosis: Recurrent left breast abscess Postoperative Diagnosis: Same, Procedure(s) Performed: 1) central lumpectomy of the left breast, partial mastectomy Surgeon: Dr. Raymundo Pisano M.D. Anesthesia: General Complication(s): none Estimated Blood Loss: 25 mL IV Fluids: Per anesthesia record Brief History: This is a 49 y.o. year old female who presents with recurrent left breast abscess. She was previously seen at an outside facility and had multiple incision and drainage of an abscess. She presented to me with recurrent abscess and which I performed a lumpectomy, nipple sparing and placed a wound VAC. She did well for a proximally 1 month and then developed an additional abscess that was just posterior to the nipple. We had a lengthy discussion about next steps and plan for a central lumpectomy removing the nipple-areolar complex.. Operative Note: After informed consent was obtained, the patient was brought to the operating room. The patient was given preoperative prophylactic antibiotics. With the patient in supine position under adequate general endotracheal anesthesia, the left breast was prepped with ChloraPrep and draped as a sterile field. A time-out was performed for procedure verification. We started by taking a hemostat and inserting it into the abscess cavity that was immediately posterior to the nipple. We marked a curvilinear incision that included the previous incision and granulation tissue and also included all of the nipple-areolar complex. Using sharp dissection and electrocautery we excised involved breast tissue including some of the skin, nipple-areolar complex as well as breast tissue immediately posterior to the nipple. We did encounter an abscess cavity, express purulent drainage and did include all of the abscess cavity in our specimen. This was then passed off the field and sent to pathology. Prior to removing the specimen we did take a swab into the abscess cavity for culture. Next we irrigated the wound with normal saline. The wound was 10 cm x 4 cm x 6 cm. We then fashioned a piece of black foam into the defect and attached our wound VAC to 125 mmHg. The VAC held a seal without leak. . The patient tolerated the procedure well, was extubated in the operating room and transferred to the PACU in stable condition. Findings: Recurrent left breast abscess Specimens: Left breast tissue Disposition:PACU - hemodynamically stable. Condition: Stable Raymundo Pisano MD General and Bariatric Surgery documented in this encounter [facility] 10-30-2024 History and physical note Post-Operative Visit Note Subjective: Vinod Ann is a 49 y.o. female, is s/p left breast abscess debridement and wound VAC placement. Denies issues with constipation or diarrhea. Denies any abdominal pain. Energy levels back to baseline. Interval history October 22, 2024: She reports that she was some increased pain to her left breast. She also reports that she was had a worsening smell associated with this. She has been having her wound VAC changed 3 times a week. 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 Past Surgical History: Past Surgical History Past Surgical History: Procedure Laterality Date EXCISION BREAST CYST FIBROADENOMA LESION Left 09/26/2024 Laterality: Left; Surgeon: Colby Pisano MD; Location: [facility] CHOLECYSTECTOMY LAPAROSCOPIC HAND SURGERY Left I&D ABSCESS Left breast LAPAROTOMY EXPLORATORY LEEP PROCEDURE Social History: Social History Socioeconomic History Marital status: Single Tobacco Use Smoking status: Every Day Current packs/day: 2.00 Average packs/day: 2.0 packs/day for 36.0 years (71.9 ttl pk-yrs) Types: Cigarettes Start date: 1988 Smokeless tobacco: Never Vaping Use Vaping status: Some Days Substance and Sexual Activity Alcohol use: Not Currently Drug use: Not Currently Types: Methamphetamines, Marijuana Comment: former Sexual activity: Not Currently control/protection: Menopause Other Topics Concern Domestic Violence No Social Determinants of Health Food Insecurity: Food Insecurity Present (12/14/2023) Received from [facility] Hunger Vital Sign Worried About Running Out of Food in the Last Year: Sometimes true Ran Out of Food in the Last Year: Sometimes true Transportation Needs: Unmet Transportation Needs (12/14/2023) Received from [facility] PRAPARE - Transportation Lack of Transportation (Medical): Yes Lack of Transportation (Non-Medical): Yes Review of Systems: Constitutional: No fevers/chills CV: No chest pain Resp: no SOB GI: no bowel issues Medications: Current Outpatient Medications Medication Sig Taking? Last Dose Start Date End Date Authorizing Provider Acetaminophen Extra Strength 500 MG tablet 2 tablets, Oral, 3 TIMES DAILY NEEDED Yes Taking 10/09/24 Ant Hodge APRN-[facility] Albuterol 108 (90 Base) MCG/ACT Aero Soln inhaler 2 puffs, Inhalation, EVERY 6 HOURS NEEDED Yes Taking Historical Provider amLODIPine 5 MG tablet 1 tablet, Oral, DAILY, am Yes Taking 08/15/24 Historical Provider Aspirin 81 MG capsule 81 mg, Oral, DAILY Yes Taking 08/06/24 Ant Hodge APRN-[facility] Cholecalciferol (Vitamin D3) 1.25 MG (02228 UT) capsule 50,000 Units, Oral, WEEKLY Yes Taking 10/16/24 Ant Hodge APRN-[facility] Cilostazol 100 MG tablet 100 mg, Oral, 2 TIMES DAILY Yes Taking 08/14/24 Ant Hodge APRN-[facility] cloNIDine 0.1 MG tablet 0.1 mg, Oral, DAILY Yes Taking 10/20/24 Ant Hodge APRN-[facility] fluticasone 50 MCG/ACT Suspension nasal spray 1 spray, Nasal, DAILY Yes Taking 08/01/24 08/01/25 She Treadwell MD Folic acid 1 MG tablet 1 mg, Oral, DAILY Yes Taking Historical Provider hydrOXYzine pamoate 25 MG capsule 25 mg, Oral, 3 TIMES DAILY NEEDED Patient taking differently: Take 2 capsules by mouth 3 times daily as needed for Anxiety. Yes Taking 10/20/24 Ant Hodge APRN-[facility] mirtazapine 45 MG tablet 45 mg, Oral, DAILY EARLY EVENING Yes Taking 10/16/24 Ant Hodge APRN-[facility] omeprazole [address] capsule 40 mg, Oral, DAILY Patient taking differently: Take 1 capsule by mouth daily. am Yes Taking 08/06/24 Ant Hodge APRN-[facility] oxyBUTYnin 15 MG Tab SR 24 HR 15 mg, Oral, DAILY Yes Taking 10/09/24 Ant Hodge APRN-[facility] Prazosin 2 MG capsule 2 mg, Oral, DAILY AT BEDTIME Yes Taking 08/06/24 Ant Hodge APRN-[facility] predniSONE 10 MG tablet Take 5 (five) tablets (50 mg total) by mouth daily for 1 day, THEN 4 (four) tablets (40 mg total) daily for 1 day, THEN 2 (two) tablets (20 mg total) daily for 1 day. Yes Taking 10/03/24 Historical Provider Rosuvastatin 10 MG tablet 10 mg, Oral, DAILY Patient taking differently: Take 1 tablet by mouth daily. pm Yes Taking 08/06/24 JOSE Jauregui Xarelto 20 MG tablet 20 mg, Oral, DAILY WITH DINNER Yes Taking 10/20/24 12/19/24 OJSE Jauregui aripiprazole 20 MG tablet 20 mg, Oral, DAILY Patient taking differently: Take 1.5 tablets by mouth daily. pm 08/06/24 10/09/24 JOSE Jauregui Blood Glucose Monitoring Suppl (OneTouch Verio Flex System) w/Device Kit Not Taking 03/28/24 Historical Provider Clotrimazole 10 MG Maricruz 10 mg, Mouth/Throat, 5 TIMES DAILY Patient not taking: Reported on 09/11/2024 08/01/24 08/21/24 She Treadwell MD Docusate 100 MG capsule 100 mg, Oral, 2 TIMES DAILY Patient not taking: Reported on 10/09/2024 Not Taking 09/26/24 S Raymundo Pisano MD Drug [place] Unilet Lancets 33G Misc Not Taking 07/20/24 Historical Provider Ketoconazole 2 % Cream cream 1 Application, DAILY Patient not taking: Reported on 10/09/2024 Not Taking 08/04/24 Historical Provider Metoprolol succinate 25 MG tablet XL 25 mg, Oral, DAILY AT BEDTIME Patient not taking: Reported on 10/22/2024 Not Taking 10/16/24 Geronimo Simon, DO OneTouch Verio Strip strip BEFORE MEALS & AT BEDTIME NEEDED Patient not taking: Reported on 09/11/2024 Not Taking Historical Provider Varenicline Tartrate, Starter, (Chantix Starting Month ) 0.5 MG X 11 & 1 MG X 42 Tab Therapy Pack tablet Take 0.5mg daily for 3 days (days 1-3), then 0.5mg two times a day for 4 days (days 4-7), then 1mg two times a day Patient not taking: Reported on 10/09/2024 Not Taking 08/14/24 JOSE Jauregui Objective: Vitals: 10/22/24 0930 BP: 119/76 Pulse: 108 Physical Exam: General Appearance: alert and oriented, no acute distress HEENT: normocephalic, atraumatic, extraocular movements intact Cardiovascular: regular rate and rhythm Respiratory: non-labored respirations with equal chest wall expansion. Abdomen: Soft, nondistended Breast: Her left breast incision is healing well with good granulation tissue, the wound has decreased in size significantly however the left nipple is full and there was some purulent discharge coming from the nipple. On palpation of this area was able to express approximately 5-10 mL of pus into the granulation cavity. Neuro: cranial nerves II-XII grossly intact Musculoskeletal: able to move all four extremities. Psych: appropriate mood and affect Skin: no signs of erythema, edema or infection. Labs: Post operative labs reviewed Assessment/Plan: - we would recommend discontinuing the wound VAC as she was recurrent infection. This has likely seeded from her nipple. We discussed at length different options for her including going back to surgery and placing a counter incision to try to promote drainage of this area. My concern is that this will not heal and she will continue to have recurrent abscesses in his area. I do recommend central lumpectomy with again placement of a wound VAC. We will plan on performing this next week. She was on anticoagulation and we will need to hold this for 2 days prior. All questions were answered. I spent greater than 7 minutes in total reviewing the patient's chart, interviewing the patient, and documenting today's visit. Raymundo Pisano MD Bariatric and Minimally Invasive General Surgery No changes from the above H and P. They wish to proceed. All questions answered. Raymundo Pisano MD [facility] 10-30-2024 History and physical note Post-Operative Visit Note Subjective: Vinod Ann is a 49 y.o. female, is s/p left breast abscess debridement and wound VAC placement. Denies issues with constipation or diarrhea. Denies any abdominal pain. Energy levels back to baseline. Interval history October 22, 2024: She reports that she was some increased pain to her left breast. She also reports that she was had a worsening smell associated with this. She has been having her wound VAC changed 3 times a week. 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 Past Surgical History: Past Surgical History Past Surgical History: Procedure Laterality Date EXCISION BREAST CYST FIBROADENOMA LESION Left 09/26/2024 Laterality: Left; Surgeon: Colby Pisano MD; Location: [facility] CHOLECYSTECTOMY LAPAROSCOPIC HAND SURGERY Left I&D ABSCESS Left breast LAPAROTOMY EXPLORATORY LEEP PROCEDURE Social History: Social History Socioeconomic History Marital status: Single Tobacco Use Smoking status: Every Day Current packs/day: 2.00 Average packs/day: 2.0 packs/day for 36.0 years (71.9 ttl pk-yrs) Types: Cigarettes Start date: 1988 Smokeless tobacco: Never Vaping Use Vaping status: Some Days Substance and Sexual Activity Alcohol use: Not Currently Drug use: Not Currently Types: Methamphetamines, Marijuana Comment: former Sexual activity: Not Currently control/protection: Menopause Other Topics Concern Domestic Violence No Social Determinants of Health Food Insecurity: Food Insecurity Present (12/14/2023) Received from [facility] Hunger Vital Sign Worried About Running Out of Food in the Last Year: Sometimes true Ran Out of Food in the Last Year: Sometimes true Transportation Needs: Unmet Transportation Needs (12/14/2023) Received from [facility] PRAPARE - Transportation Lack of Transportation (Medical): Yes Lack of Transportation (Non-Medical): Yes Review of Systems: Constitutional: No fevers/chills CV: No chest pain Resp: no SOB GI: no bowel issues Medications: Current Outpatient Medications Medication Sig Taking? Last Dose Start Date End Date Authorizing Provider Acetaminophen Extra Strength 500 MG tablet 2 tablets, Oral, 3 TIMES DAILY NEEDED Yes Taking 10/09/24 Ant Hodge APRN-[facility]Z ELENA Albuterol 108 (90 Base) MCG/ACT Aero Soln inhaler 2 puffs, Inhalation, EVERY 6 HOURS NEEDED Yes Taking Historical Provider amLODIPine 5 MG tablet 1 tablet, Oral, DAILY, am Yes Taking 08/15/24 Historical Provider Aspirin 81 MG capsule 81 mg, Oral, DAILY Yes Taking 08/06/24 JOSE Jauregui Cholecalciferol (Vitamin D3) 1.25 MG (51572 UT) capsule 50,000 Units, Oral, WEEKLY Yes Taking 10/16/24 JOSE Jauregui Cilostazol 100 MG tablet 100 mg, Oral, 2 TIMES DAILY Yes Taking 08/14/24 Ant Hodge APRN-[facility] ELENA cloNIDine 0.1 MG tablet 0.1 mg, Oral, DAILY Yes Taking 10/20/24 JOSE Jauregui fluticasone 50 MCG/ACT Suspension nasal spray 1 spray, Nasal, DAILY Yes Taking 08/01/24 08/01/25 She Treadwell MD Folic acid 1 MG tablet 1 mg, Oral, DAILY Yes Taking Historical Provider hydrOXYzine pamoate 25 MG capsule 25 mg, Oral, 3 TIMES DAILY NEEDED Patient taking differently: Take 2 capsules by mouth 3 times daily as needed for Anxiety. Yes Taking 10/20/24 JOSE Jauregui mirtazapine 45 MG tablet 45 mg, Oral, DAILY EARLY EVENING Yes Taking 10/16/24 JOSE Jauregui omeprazole [address] capsule 40 mg, Oral, DAILY Patient taking differently: Take 1 capsule by mouth daily. am Yes Taking 08/06/24 JOSE Jauregui oxyBUTYnin 15 MG Tab SR 24 HR 15 mg, Oral, DAILY Yes Taking 10/09/24 JOSE Jauregui Prazosin 2 MG capsule 2 mg, Oral, DAILY AT BEDTIME Yes Taking 08/06/24 JOSE Jauregui predniSONE 10 MG tablet Take 5 (five) tablets (50 mg total) by mouth daily for 1 day, THEN 4 (four) tablets (40 mg total) daily for 1 day, THEN 2 (two) tablets (20 mg total) daily for 1 day. Yes Taking 10/03/24 Historical Provider Rosuvastatin 10 MG tablet 10 mg, Oral, DAILY Patient taking differently: Take 1 tablet by mouth daily. pm Yes Taking 08/06/24 JOSE Jauregui Xarelto 20 MG tablet 20 mg, Oral, DAILY WITH DINNER Yes Taking 10/20/24 12/19/24 JOSE Jauregui aripiprazole 20 MG tablet 20 mg, Oral, DAILY Patient taking differently: Take 1.5 tablets by mouth daily. pm 08/06/24 10/09/24 JOSE Jauregui Blood Glucose Monitoring Suppl (OneTouch Verio Flex System) w/Device Kit Not Taking 03/28/24 Historical Provider Clotrimazole 10 MG Maricruz 10 mg, Mouth/Throat, 5 TIMES DAILY Patient not taking: Reported on 09/11/2024 08/01/24 08/21/24 She Treadwell MD Docusate 100 MG capsule 100 mg, Oral, 2 TIMES DAILY Patient not taking: Reported on 10/09/2024 Not Taking 09/26/24 Colby Pisano MD [facility] Unilet Lancets 33G Misc Not Taking 07/20/24 Historical Provider Ketoconazole 2 % Cream cream 1 Application, DAILY Patient not taking: Reported on 10/09/2024 Not Taking 08/04/24 Historical Provider Metoprolol succinate 25 MG tablet XL 25 mg, Oral, DAILY AT BEDTIME Patient not taking: Reported on 10/22/2024 Not Taking 10/16/24 Geronimo Simon, DO OneTouch Verio Strip strip BEFORE MEALS & AT BEDTIME NEEDED Patient not taking: Reported on 09/11/2024 Not Taking Historical Provider Varenicline Tartrate, Starter, (Chantix Starting Month ) 0.5 MG X 11 & 1 MG X 42 Tab Therapy Pack tablet Take 0.5mg daily for 3 days (days 1-3), then 0.5mg two times a day for 4 days (days 4-7), then 1mg two times a day Patient not taking: Reported on 10/09/2024 Not Taking 08/14/24 JOSE Jauregui Objective: Vitals: 10/22/24 0930 BP: 119/76 Pulse: 108 Physical Exam: General Appearance: alert and oriented, no acute distress HEENT: normocephalic, atraumatic, extraocular movements intact Cardiovascular: regular rate and rhythm Respiratory: non-labored respirations with equal chest wall expansion. Abdomen: Soft, nondistended Breast: Her left breast incision is healing well with good granulation tissue, the wound has decreased in size significantly however the left nipple is full and there was some purulent discharge coming from the nipple. On palpation of this area was able to express approximately 5-10 mL of pus into the granulation cavity. Neuro: cranial nerves II-XII grossly intact Musculoskeletal: able to move all four extremities. Psych: appropriate mood and affect Skin: no signs of erythema, edema or infection. Labs: Post operative labs reviewed Assessment/Plan: - we would recommend discontinuing the wound VAC as she was recurrent infection. This has likely seeded from her nipple. We discussed at length different options for her including going back to surgery and placing a counter incision to try to promote drainage of this area. My concern is that this will not heal and she will continue to have recurrent abscesses in his area. I do recommend central lumpectomy with again placement of a wound VAC. We will plan on performing this next week. She was on anticoagulation and we will need to hold this for 2 days prior. All questions were answered. I spent greater than 7 minutes in total reviewing the patient's chart, interviewing the patient, and documenting today's visit. Raymundo Pisano MD Bariatric and Minimally Invasive General Surgery No changes from the above H and P. They wish to proceed. All questions answered. Raymundo Pisano MD documented in this encounter [facility] 10-27-2024 Telephone encounter Note Let patient know that Dr Pisano it is not medically necessary to more than overnight after the surgery and he is not worried about the lump in her groin. Patient verbalized understanding, they were just worried that since it is holidays no staff members will be around. I reminded patient to bring woundvac with her day of surgery. Let Jane know of this as well. Jane asked if home health was still in place. I let her know I am not seeing anything where it is discontinued so yes they will be still coming. [facility] 10-27-2024 Miscellaneous Notes Let patient know that Dr Pisano it is not medically necessary to more than overnight after the surgery and he is not worried about the lump in her groin. Patient verbalized understanding, they were just worried that since it is holidays no staff members will be around. I reminded patient to bring woundvac with her day of surgery. Let Jane know of this as well. Jane asked if home health was still in place. I let her know I am not seeing anything where it is discontinued so yes they will be still coming. Jane Foster from [facility] called in asking if it would be okay for Vinod to stay inpatient after surgery 2-3 days for her peace of mind or in a penitentiary. Jane and patient feel this is best for patient as she shares a room with another female, and think this would be better for her to be taken care of at inpatient. I let Jane know I would need to ask Dr Pisano as that is not something I would know. Per Dr Pisano, patient does not meet criteria for senior living and it is not medically neccessary Patient called in to speak with Dr Pisano, I let patient know he is busy and I can send a message to him.patient said she has a lump in groin area about 2 inches, worried this will cause her go septic. I let patient know I would reach out to Dr Pisano. She said she will ask him on day of surgery. Per Dr Pisano, he is not worried about this. documented in this encounter [facility] 10-27-2024 Telephone encounter Note Jane Foster from [facility] called in asking if it would be okay for Vinod to stay inpatient after surgery 2-3 days for her peace of mind or in a penitentiary. Jane and patient feel this is best for patient as she shares a room with another female, and think this would be better for her to be taken care of at inpatient. I let Jane know I would need to ask Dr Pisano as that is not something I would know. Per Dr Pisano, patient does not meet criteria for senior living and it is not medically neccessary [facility] 10-27-2024 Telephone encounter Note Patient called in to speak with Dr Pisano, I let patient know he is busy and I can send a message to him.patient said she has a lump in groin area about 2 inches, worried this will cause her go septic. I let patient know I would reach out to Dr Pisano. She said she will ask him on day of surgery. Per Dr Pisano, he is not worried about this. [facility] 10-22-2024 History of Present illness Narrative Patient stated that she was having severe pain but it has gone down. Post-Operative Visit Note Subjective: Vinod Ann is a 49 y.o. female, is s/p left breast abscess debridement and wound VAC placement. Denies issues with constipation or diarrhea. Denies any abdominal pain. Energy levels back to baseline. Interval history October 22, 2024: She reports that she was some increased pain to her left breast. She also reports that she was had a worsening smell associated with this. She has been having her wound VAC changed 3 times a week. 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 Past Surgical History: Past Surgical History: Procedure Laterality Date EXCISION BREAST CYST FIBROADENOMA LESION Left 09/26/2024 Laterality: Left; Surgeon: Colby Pisano MD; Location: [facility] CHOLECYSTECTOMY LAPAROSCOPIC HAND SURGERY Left I&D ABSCESS Left breast LAPAROTOMY EXPLORATORY LEEP PROCEDURE Social History: Social History Socioeconomic History Marital status: Single Tobacco Use Smoking status: Every Day Current packs/day: 2.00 Average packs/day: 2.0 packs/day for 36.0 years (71.9 ttl pk-yrs) Types: Cigarettes Start date: 1988 Smokeless tobacco: Never Vaping Use Vaping status: Some Days Substance and Sexual Activity Alcohol use: Not Currently Drug use: Not Currently Types: Methamphetamines, Marijuana Comment: former Sexual activity: Not Currently control/protection: Menopause Other Topics Concern Domestic Violence No Social Determinants of Health Food Insecurity: Food Insecurity Present (12/14/2023) Received from [facility] Hunger Vital Sign Worried About Running Out of Food in the Last Year: Sometimes true Ran Out of Food in the Last Year: Sometimes true Transportation Needs: Unmet Transportation Needs (12/14/2023) Received from [facility] PRAPARE - Transportation Lack of Transportation (Medical): Yes Lack of Transportation (Non-Medical): Yes Review of Systems: Constitutional: No fevers/chills CV: No chest pain Resp: no SOB GI: no bowel issues Medications: Current Outpatient Medications Medication Sig Taking? Last Dose Start Date End Date Authorizing Provider Acetaminophen Extra Strength 500 MG tablet 2 tablets, Oral, 3 TIMES DAILY NEEDED Yes Taking 10/09/24 JOSE Jauregui Albuterol 108 (90 Base) MCG/ACT Aero Soln inhaler 2 puffs, Inhalation, EVERY 6 HOURS NEEDED Yes Taking Historical Provider amLODIPine 5 MG tablet 1 tablet, Oral, DAILY, am Yes Taking 08/15/24 Historical Provider Aspirin 81 MG capsule 81 mg, Oral, DAILY Yes Taking 08/06/24 JOSE Jauregui Cholecalciferol (Vitamin D3) 1.25 MG (23303 UT) capsule 50,000 Units, Oral, WEEKLY Yes Taking 10/16/24 JOSE Jauregui Cilostazol 100 MG tablet 100 mg, Oral, 2 TIMES DAILY Yes Taking 08/14/24 Ant Hodge APRN-[facility] ELENA cloNIDine 0.1 MG tablet 0.1 mg, Oral, DAILY Yes Taking 10/20/24 JOSE Jauregui fluticasone 50 MCG/ACT Suspension nasal spray 1 spray, Nasal, DAILY Yes Taking 08/01/24 08/01/25 She Treadwell MD Folic acid 1 MG tablet 1 mg, Oral, DAILY Yes Taking Historical Provider hydrOXYzine pamoate 25 MG capsule 25 mg, Oral, 3 TIMES DAILY NEEDED Patient taking differently: Take 2 capsules by mouth 3 times daily as needed for Anxiety. Yes Taking 10/20/24 JOSE Jauregui mirtazapine 45 MG tablet 45 mg, Oral, DAILY EARLY EVENING Yes Taking 10/16/24 JOSE Jauregui omeprazole [address] capsule 40 mg, Oral, DAILY Patient taking differently: Take 1 capsule by mouth daily. am Yes Taking 08/06/24 JOSE Jauregui oxyBUTYnin 15 MG Tab SR 24 HR 15 mg, Oral, DAILY Yes Taking 10/09/24 JOSE Jauregui Prazosin 2 MG capsule 2 mg, Oral, DAILY AT BEDTIME Yes Taking 08/06/24 JOSE Jauregui predniSONE 10 MG tablet Take 5 (five) tablets (50 mg total) by mouth daily for 1 day, THEN 4 (four) tablets (40 mg total) daily for 1 day, THEN 2 (two) tablets (20 mg total) daily for 1 day. Yes Taking 10/03/24 Historical Provider Rosuvastatin 10 MG tablet 10 mg, Oral, DAILY Patient taking differently: Take 1 tablet by mouth daily. pm Yes Taking 08/06/24 JOSE Jauregui Xarelto 20 MG tablet 20 mg, Oral, DAILY WITH DINNER Yes Taking 10/20/24 12/19/24 JOSE Jauregui aripiprazole 20 MG tablet 20 mg, Oral, DAILY Patient taking differently: Take 1.5 tablets by mouth daily. pm 08/06/24 10/09/24 JOSE Jauregui Blood Glucose Monitoring Suppl ([employer] Verio Flex System) w/Device Kit Not Taking 03/28/24 Historical Provider Clotrimazole 10 MG Maricruz 10 mg, Mouth/Throat, 5 TIMES DAILY Patient not taking: Reported on 09/11/2024 08/01/24 08/21/24 She Treadwell MD Docusate 100 MG capsule 100 mg, Oral, 2 TIMES DAILY Patient not taking: Reported on 10/09/2024 Not Taking 09/26/24 Colby Pisano MD [facility] Unilet Lancets 33G Misc Not Taking 07/20/24 Historical Provider Ketoconazole 2 % Cream cream 1 Application, DAILY Patient not taking: Reported on 10/09/2024 Not Taking 08/04/24 Historical Provider Metoprolol succinate 25 MG tablet XL 25 mg, Oral, DAILY AT BEDTIME Patient not taking: Reported on 10/22/2024 Not Taking 10/16/24 Geronimo Simon, DO OneTouch Verio Strip strip BEFORE MEALS & AT BEDTIME NEEDED Patient not taking: Reported on 09/11/2024 Not Taking Historical Provider Varenicline Tartrate, Starter, (Chantix Starting Month ) 0.5 MG X 11 & 1 MG X 42 Tab Therapy Pack tablet Take 0.5mg daily for 3 days (days 1-3), then 0.5mg two times a day for 4 days (days 4-7), then 1mg two times a day Patient not taking: Reported on 10/09/2024 Not Taking 08/14/24 Ant Hodge APRN-HAND SCRAPER Objective: Vitals: 10/22/24 0930 BP: 119/76 Pulse: 108 Physical Exam: General Appearance: alert and oriented, no acute distress HEENT: normocephalic, atraumatic, extraocular movements intact Cardiovascular: regular rate and rhythm Respiratory: non-labored respirations with equal chest wall expansion. Abdomen: Soft, nondistended Breast: Her left breast incision is healing well with good granulation tissue, the wound has decreased in size significantly however the left nipple is full and there was some purulent discharge coming from the nipple. On palpation of this area was able to express approximately 5-10 mL of pus into the granulation cavity. Neuro: cranial nerves II-XII grossly intact Musculoskeletal: able to move all four extremities. Psych: appropriate mood and affect Skin: no signs of erythema, edema or infection. Labs: Post operative labs reviewed Assessment/Plan: - we would recommend discontinuing the wound VAC as she was recurrent infection. This has likely seeded from her nipple. We discussed at length different options for her including going back to surgery and placing a counter incision to try to promote drainage of this area. My concern is that this will not heal and she will continue to have recurrent abscesses in his area. I do recommend central lumpectomy with again placement of a wound VAC. We will plan on performing this next week. She was on anticoagulation and we will need to hold this for 2 days prior. All questions were answered. I spent greater than 7 minutes in total reviewing the patient's chart, interviewing the patient, and documenting today's visit. Raymundo Pisano MD Bariatric and Minimally Invasive General Surgery documented in this encounter [facility] 10-16-2024 Telephone encounter Note Prescription was sent in. [facility] 10-16-2024 Miscellaneous Notes Prescription was sent in. Person Calling: Pt called and stated that she need her famotidine refilled. She would like for it be sent to the [facility] in [place], [place].. [phone] Reason for Call: Pt Phone #: [phone] Pharmacy Name and # : Pt last seen: 09/03/2024 Rebekah Cadena documented in this encounter [facility] 10-16-2024 Telephone encounter Note Person Calling: Pt called and stated that she need her famotidine refilled. She would like for it be sent to the [facility] in [place], [place].. [phone] Reason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 facility and transportation is an issue for her. She is also very anxious. We are going to make a referral to home health to help with dressing changes and to help with trouble shooting the wound VAC if there is ever an alarm. She did very well with the VAC since Sunday. Continue negative pressure at 125 mmHg with dressings changed 3 times weekly. I encouraged her to wear a soft minimally restrictive sports bra for support, I think it will increase her comfort level. If it is more uncomfortable with the bra she does not have to wear it. I explained that Dr. Mcdonald or I need to see the wound once a week at a minimum. He is scheduled to follow up with her next week so I will schedule her back with me in 2 weeks but if she or home health have concerns about what the wound looks like we will see her sooner. Please note: Portions of this note utilized Voice recognition software, please excuse any typographical or grammatical errors documented in this encounter [facility] 09-29-2024 Instructions Monica Borden RN - 09/29/2024 10:45 AM EST Keep wound vac in place and keep clean and dry documented in this encounter [facility] 09-26-2024 Nurse Surgical operation note Transported to PACU per Nat Royal CRNA RN report given to Nissa RN [facility] 09-26-2024 Nurse Note Transported to PACU per Nat Royal CRNA RN report given to Nissa RN documented in this encounter [facility] 09-26-2024 Hospital Discharge instructions Colby Pisano MD - 09/26/2024 3:04 PM EST POST OPERATIVE INSTRUCTIONS FOR SOFT TISSUE SURGERY Dressing and Incision Care: WASH YOUR HANDS IMMEDIATELY BEFORE YOU TOUCH YOUR DRESSING OR INCISION AREA. You will have a clear plastic waterproof bandage with gauze underneath or skin glue (Dermabond). The dressing will need to stay on for 1-2 days following your surgery. When you remove the dressing you will see that your incision is closed with either: White steri-strips; These strips need to stay in place. These will peel away on their own, with time. Skin Glue; You will not need to do anything with your incision. Sutures/ [place] in the skin--they will be removed in the office at your first visit. You may shower the day after your surgery. Wash the area around your incision gently then pat dry--do not rub. Avoid bath, hot tub etc. until after you see your doctor. Remember, your coordination may be off for the first couple of days after surgery and a slippery surface can present a dangerous challenge. If you have a drain(s) or packing: You may NOT shower while your drain(s) or packing are in place. Please refer to the specific directions regarding the care of your drain or the removal of your packing as directed. Long-term care of Incision: A moisturizer (Eucerin, Vit E ointment) can be used on the incision starting 2 weeks after surgery if it is dry or itchy. Mederma can occasionally help reduce scarring. Sun exposure can worsen scarring so cover your incision and/or apply sunscreen when your incision is exposed to the sun. Activity: Your activity can be what you can tolerate. Do what is comfortable and stop and rest when you feel tired. Managing Your Pain and Medication Instructions: Place an ice pack over your dressing on and off for 15-20 minutes out of each hour while awake, for the first 48 hours. You will be given a prescription for pain medication though Tylenol or Ibuprofen may be all you need to relieve your pain. Take this medication as directed but only as needed and with food. If you experience nausea with this medication, please call the office--we may need to prescribe something else. For questions about pain medications--please call during normal business hours. Pain medications refill requests will not be accepted after hours, weekends or holidays. This medication may make you feel drowsy or light-headed. DO NOT drive or operate any kind of vehicle, drink alcoholic beverages or make any important decisions while taking this medication. Diet: You may resume your regular diet as you can tolerate it. Be sure to drink plenty of non-caffeinated clear liquids (water, Gatorade, Sprite or jaya mahamed) following surgery to promote healthy bowel movements. For diabetic patients use sugar-free alternatives. If you are a Diabetic--It is important for you to manage your blood sugars carefully and accurately to support wound healing and reduce the risk of infection. Sometimes patients develop constipation. This is a side effect of the pain medication. You may take a stool softener or mild laxative while taking the pain medication. CALL YOUR DOCTOR FOR ANY OF THE FOLLOWING: Fever greater than 101 degrees F lasting longer than 1-2 hours Excessive bleeding, redness, drainage, swelling or any other problems at the surgical site Severe pain even after taking pain medication Itching, rash or hives Any issues you are concerned about Please call our office to make an appointment with your doctor if it has not already been scheduled. Raymundo Pisano MD [phone] documented in this encounter [facility] 09-26-2024 Surgery Postoperative evaluation and management note Patient: Vinod Ann Billing Number: [id number] Date of : 1975 Age: 49 y.o. Sex female Date of Surgery: 09/26/2024 Preoperative Diagnosis: chronic breast abscess Postoperative Diagnosis: Same, Procedure(s) Performed: 1) Partial mastectomy for large chronic breast abscess 2) Placement of wound vac 5 cm x 5.5 cm x 6.0 cm [id number] Surgeon: Dr. Raymundo Pisano M.D. Anesthesia: General Complication(s): none Estimated Blood Loss: 25 mL IV Fluids: Per anesthesia record Brief History: This is a 49 y.o. year old female who presents with a chronic breast abscess that has not healed by conventional methods. She presents for partial mastectomy of the large abscess cavity and placement of a wound vac. Operative Note: After informed consent was obtained, the patient was brought to the operating room. The patient was given preoperative prophylactic antibiotics. With the patient in supine position under adequate general endotracheal anesthesia, the left breast was prepped with ChloraPrep and draped as a sterile field. A time-out was performed for procedure verification. We started by making a curvilinear incision over the 9 to 12 o'clock position of the breast. We then used electrocautery to dissect down through the subcutaneous and breast tissue to include the entire breast abscess cavity. The cavity tunneled below the central portion of the breast. We did take fluid cultures from the purulent material within the breast cavity. After encircling the breast abscess we removed this as one portion and send this to pathology. We then used a pulsivac lavage to irrigate the wound. We then injected the wound with 0.5% marcaine and obtained hemostasis. The wound measures 5 cm x 5.5 cm x 6.0 cm. We then placed a wound vac with a single piece of black foam and covered the foam and attached it to a vac. We set the vac to 125mm Hg and completed the case. . The patient tolerated the procedure well, was extubated in the operating room and transferred to the PACU in stable condition. Findings: large chronic breast abscess Specimens: tissue and fluid cultures Disposition:PACU - hemodynamically stable. Condition: Stable Raymundo Pisano MD General and Bariatric Surgery [facility] 09-26-2024 Miscellaneous Notes Patient: Vinod Ann Billing Number: [id number] Date of : 1975 Age: 49 y.o. Sex female Date of Surgery: 09/26/2024 Preoperative Diagnosis: chronic breast abscess Postoperative Diagnosis: Same, Procedure(s) Performed: 1) Partial mastectomy for large chronic breast abscess 2) Placement of wound vac 5 cm x 5.5 cm x 6.0 cm [id number] Surgeon: Dr. Raymundo Pisano M.D. Anesthesia: General Complication(s): none Estimated Blood Loss: 25 mL IV Fluids: Per anesthesia record Brief History: This is a 49 y.o. year old female who presents with a chronic breast abscess that has not healed by conventional methods. She presents for partial mastectomy of the large abscess cavity and placement of a wound vac. Operative Note: After informed consent was obtained, the patient was brought to the operating room. The patient was given preoperative prophylactic antibiotics. With the patient in supine position under adequate general endotracheal anesthesia, the left breast was prepped with ChloraPrep and draped as a sterile field. A time-out was performed for procedure verification. We started by making a curvilinear incision over the 9 to 12 o'clock position of the breast. We then used electrocautery to dissect down through the subcutaneous and breast tissue to include the entire breast abscess cavity. The cavity tunneled below the central portion of the breast. We did take fluid cultures from the purulent material within the breast cavity. After encircling the breast abscess we removed this as one portion and send this to pathology. We then used a pulsivac lavage to irrigate the wound. We then injected the wound with 0.5% marcaine and obtained hemostasis. The wound measures 5 cm x 5.5 cm x 6.0 cm. We then placed a wound vac with a single piece of black foam and covered the foam and attached it to a vac. We set the vac to 125mm Hg and completed the case. . The patient tolerated the procedure well, was extubated in the operating room and transferred to the PACU in stable condition. Findings: large chronic breast abscess Specimens: tissue and fluid cultures Disposition:PACU - hemodynamically stable. Condition: Stable Raymundo Pisano MD General and Bariatric Surgery documented in this encounter [facility] 09-26-2024 History and physical note GENERAL SURGERY NEW PATIENT CONSULTATION HISTORY AND PHYSICAL Date: 09/26/2024 Time: 11:47 AM Name: Vinod Ann PCP: Ant Hodge Reason for visit: Left breast abscess HPI: Ms. Ann is a 49 y.o. female with a longstanding history of a left and right breast abscess. She has had this extensively worked up at several medical facilities. She has had multiple mammograms as well as ultrasounds of this area. Her most recent mammogram showed BI-RADS 4 in this area as well as bilateral cystic changes. The area in question was later biopsied as well as a reactive lymph node in the left axilla. The breast site was found to be abscess material in the left axilla was found to be a normal reactive lymph node. She does have a past medical history of significant drug abuse specifically meth. She has a past medical history of diabetes type 2, she is vasculopath with bilateral lower extremity disease. She was also found to have a growth on her vocal cord concerning for possible malignancy versus benign growth. She has a scheduled laryngoscopy with biopsy at the end of the month. 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 No pertinent family history. SOCIAL HISTORY: Social History Social History Tobacco Use Smoking status: Every Day Current packs/day: 2.00 Average packs/day: 2.0 packs/day for 35.8 years (71.6 ttl pk-yrs) Types: Cigarettes Start date: 1988 Smokeless tobacco: Never Vaping Use Vaping status: Some Days Substances: Nicotine Devices: Disposable Substance Use Topics Alcohol use: Not Currently Drug use: Not Currently History of meth use, currently clean and lives in a clean house Smoking: daily MEDICATIONS: Prior to Admission Medications: Current Outpatient Medications Medication Sig Last Dose Start Date End Date Authorizing Provider Albuterol 108 (90 Base) MCG/ACT Aero Soln inhaler 2 puffs, Inhalation, EVERY 6 HOURS NEEDED Taking Historical Provider aripiprazole 20 MG tablet 20 mg, Oral, DAILY Taking 08/06/24 09/05/24 JOSE Jauregui Aspirin 81 MG capsule 81 mg, Oral, DAILY Taking 08/06/24 JOSE Jauregui Blood Glucose Monitoring Suppl (WellMetris Verio Flex System) w/Device Kit Taking 03/28/24 Historical Provider Cholecalciferol (Vitamin D3) 1.25 MG (43402 UT) capsule 50,000 Units, Oral, WEEKLY Taking 08/06/24 JOSE Jauregui Cilostazol 100 MG tablet 100 mg, Oral, 2 TIMES DAILY Taking 08/14/24 JOSE Jauregui cloNIDine 0.1 MG tablet 0.1 mg, Oral, DAILY Taking 08/06/24 JOSE Jauregui Clotrimazole 10 MG Maricruz 10 mg, Mouth/Throat, 5 TIMES DAILY Taking 08/01/24 08/21/24 She Treadwell MD [facility] [place] [facility] Lancets 33G Misc Taking 07/20/24 Historical Provider fluticasone 50 MCG/ACT Suspension nasal spray 1 spray, Nasal, DAILY Taking 08/01/24 08/01/25 She Treadwell MD Folic acid 1 MG tablet 1 mg, Oral, DAILY Taking Historical Provider hydrOXYzine pamoate 25 MG capsule 25 mg, Oral, 3 TIMES DAILY NEEDED Taking 08/14/24 JOSE Jauregui Ketoconazole 2 % Cream cream 1 Application, Topical, DAILY Taking 08/04/24 Historical Provider mirtazapine 45 MG tablet 45 mg, Oral, DAILY EARLY EVENING Taking 07/21/24 JOSE Jauregui omeprazole [address] capsule 40 mg, Oral, DAILY Taking 08/06/24 JOSE Jauregui OneTouch Verio Strip strip In Vitro, BEFORE MEALS & AT BEDTIME NEEDED Taking Historical Provider oxyBUTYnin 15 MG Tab SR 24 HR 15 mg, Oral, DAILY Taking 07/21/24 Ant Hodge, JOSE Prazosin 2 MG capsule 2 mg, Oral, DAILY AT BEDTIME Taking 08/06/24 Ant Hodge, JOSE Rosuvastatin 10 MG tablet 10 mg, Oral, DAILY Taking 08/06/24 Ant Hodge, JOSE Xarelto 20 MG tablet 20 mg, Oral, DAILY WITH DINNER Taking 08/14/24 10/13/24 JOSE Jauregui Loratadine 10 MG tablet 10 mg, DAILY Patient not taking: Reported on 08/06/2024 Not Taking 08/20/23 Historical Provider Melatonin (Melatonin Maximum Strength) 5 MG tablet 5 mg, DAILY AT BEDTIME Patient not taking: Reported on 08/21/2024 Not Taking 04/04/24 Historical Provider Nicotine 21 MG/24HR Patch 24 HR patch 1 patch, EVERY 24 HOURS Patient not taking: Reported on 08/21/2024 Not Taking 01/22/24 Historical Provider Nystatin 605864 UNIT/ML oral suspension 500,000 Units, Swish & Spit, 4 TIMES DAILY Patient not taking: Reported on 08/21/2024 Not Taking 07/21/24 07/28/24 JOSE Jauregui Varenicline Tartrate, Starter, (Chantix Starting Month ) 0.5 MG X 11 & 1 MG X 42 Tab Therapy Pack tablet Take 0.5mg daily for 3 days (days 1-3), then 0.5mg two times a day for 4 days (days 4-7), then 1mg two times a day Patient not taking: Reported on 08/21/2024 Not Taking 08/14/24 JOSE Jauregui ALLERGIES: Allergies Allergies Allergen Reactions Cephalexin Diarrhea and Hives Fenofibrate Other Reaction(s): Other: See Comments Hives with GI upset (emesis) Sertraline Diarrhea and Hives Olanzapine Hives Other Reaction(s): Mental Status Change, Other (See Comments) States makes her agitated Suicidal thoughts Clindamycin Hives States has take since with no issue 08/06/20. Elba Broussard MA States has take since with no issue 08/06/20. Elba Broussard MA REVIEW OF SYSTEMS: GENERAL: Negative for malaise, significant weight loss and fever HEAD: Negative for headache, swelling. NECK: Negative for lumps, goiter, pain and significant neck swelling RESPIRATORY: Negative for cough, wheezing or shortness of breath. CARDIOVASCULAR: Negative for chest pain, leg swelling or palpitations. GI: Negative for abdominal discomfort, blood in stools or black stools or change in bowel habits : No history of dysuria, frequency or incontinence MUSCULOSKELETAL: Negative for joint pain or swelling, back pain or muscle pain. SKIN: Negative for lesions, rash, and itching. PSYCH: Negative for sleep disturbance, mood disorder and recent psychosocial stressors. ENDOCRINE: Negative for cold or heat intolerance, polyuria, polydipsia and goiter. PHYSICAL EXAM: Visit Vitals BP 110/72 (BP Location: Left arm, BP Position: Sitting) Pulse 105 Resp 19 Ht 1.651 m (5' 5) Wt 103.9 kg (229 lb 1.6 oz) SpO2 95% BMI 38.12 kg/m Body mass index is 38.12 kg/m . General appearance: NAD Neuro: AOx3 Head: EOMI; no swelling or lesions of scalp or face ENT: no lumps or lymphadenopathy, thyroid normal to palpation; oropharynx clear, no swelling or erythema Skin: warm, no erythema or rashes Lungs: clear to percussion and auscultation Heart: regular rhythm and S1, S2 normal Abdomen: soft, ND Breast: left nipple retracted and there is an area of chronic inflammation near the areola at the 10 o clock position, with pressure this does express pus from the nipple Extremities: Normal exam of the extremities. No swelling or pain. Psych: no hurried speech, no flight of ideas, normal affect Assessment: Vinod Ann is a 49 y.o. female who had a diagnosis of chronic breast abscess - Labs were independently reviewed and interpreted by me. Any abnormal/normal results are indicated below along with any plan of action from: none - Imaging was independently reviewed and interpreted by me. Any abnormal/normal results are indicated below along with any plan of action from: mammogram, US [facility] over [facility] summer showing birads 4 and then abscess material with normal lymph nodes on biopsy Plan: - she was a chronic left breast abscess that connects to the nipple-areolar complex. She has had multiple drainages in the past however this continues to recur. We discussed bedside drainage however did not feel that this will be extensive enough to resolve her of the disease process. We discussed performing a and she was an and drainage of the abscess with significant curetting of the abscess cavity and placement of a wound VAC to try and save the nipple areola complex. We discussed that this may recur and if it does she will need a central lumpectomy. She was in agreement to the aforementioned plan. Risks benefits and alternatives of procedure were explained to the patient and she wishes to proceed. I spent greater than 45 minutes in total reviewing the patient's chart, interviewing the patient, and documenting today's visit. Colby Pisano MD Bariatric and Minimally Invasive General Surgery No changes from the above H and P. They wish to proceed. All questions answered. Raymundo Pisano MD [facility] 09-26-2024 History and physical note GENERAL SURGERY NEW PATIENT CONSULTATION HISTORY AND PHYSICAL Date: 09/26/2024 Time: 11:47 AM Name: Vinod Ann PCP: Ant Hodge Reason for visit: Left breast abscess HPI: Ms. Ann is a 49 y.o. female with a longstanding history of a left and right breast abscess. She has had this extensively worked up at several medical facilities. She has had multiple mammograms as well as ultrasounds of this area. Her most recent mammogram showed BI-RADS 4 in this area as well as bilateral cystic changes. The area in question was later biopsied as well as a reactive lymph node in the left axilla. The breast site was found to be abscess material in the left axilla was found to be a normal reactive lymph node. She does have a past medical history of significant drug abuse specifically meth. She has a past medical history of diabetes type 2, she is vasculopath with bilateral lower extremity disease. She was also found to have a growth on her vocal cord concerning for possible malignancy versus benign growth. She has a scheduled laryngoscopy with biopsy at the end of the month. 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 No pertinent family history. SOCIAL HISTORY: Social History Social History Tobacco Use Smoking status: Every Day Current packs/day: 2.00 Average packs/day: 2.0 packs/day for 35.8 years (71.6 ttl pk-yrs) Types: Cigarettes Start date: 1988 Smokeless tobacco: Never Vaping Use Vaping status: Some Days Substances: Nicotine Devices: Disposable Substance Use Topics Alcohol use: Not Currently Drug use: Not Currently History of meth use, currently clean and lives in a clean house Smoking: daily MEDICATIONS: Prior to Admission Medications: Current Outpatient Medications Medication Sig Last Dose Start Date End Date Authorizing Provider Albuterol 108 (90 Base) MCG/ACT Aero Soln inhaler 2 puffs, Inhalation, EVERY 6 HOURS NEEDED Taking Historical Provider aripiprazole 20 MG tablet 20 mg, Oral, DAILY Taking 08/06/24 09/05/24 JOSE Jauregui Aspirin 81 MG capsule 81 mg, Oral, DAILY Taking 08/06/24 JOSE Jauregui Blood Glucose Monitoring Suppl (WellMetris Verio Flex System) w/Device Kit Taking 03/28/24 Historical Provider Cholecalciferol (Vitamin D3) 1.25 MG (51740 UT) capsule 50,000 Units, Oral, WEEKLY Taking 08/06/24 Ant Hodge APRN-LUZ ELENA Cilostazol 100 MG tablet 100 mg, Oral, 2 TIMES DAILY Taking 08/14/24 Ant Hodge, JOSE cloNIDine 0.1 MG tablet 0.1 mg, Oral, DAILY Taking 08/06/24 Ant Hodge, SCOOBY-LUZ ELENA Clotrimazole 10 MG Maricruz 10 mg, Mouth/Throat, 5 TIMES DAILY Taking 08/01/24 08/21/24 She Treadwell MD Drug [place] [facility] Lancets 33G [facility] Taking 07/20/24 Historical Provider fluticasone 50 MCG/ACT Suspension nasal spray 1 spray, Nasal, DAILY Taking 08/01/24 08/01/25 She Treadwell MD Folic acid 1 MG tablet 1 mg, Oral, DAILY Taking Historical Provider hydrOXYzine pamoate 25 MG capsule 25 mg, Oral, 3 TIMES DAILY NEEDED Taking 08/14/24 JOSE Jauregui Ketoconazole 2 % Cream cream 1 Application, Topical, DAILY Taking 08/04/24 Historical Provider mirtazapine 45 MG tablet 45 mg, Oral, DAILY EARLY EVENING Taking 07/21/24 Ant Hodge, JOSE omeprazole [address] capsule 40 mg, Oral, DAILY Taking 08/06/24 Ant Hodge APRN-LUZ ELENA OneTouch Verio Strip strip In Vitro, BEFORE MEALS & AT BEDTIME NEEDED Taking Historical Provider oxyBUTYnin 15 MG Tab SR 24 HR 15 mg, Oral, DAILY Taking 07/21/24 JOSE Jauregui Prazosin 2 MG capsule 2 mg, Oral, DAILY AT BEDTIME Taking 08/06/24 Ant Hodge, JOSE Rosuvastatin 10 MG tablet 10 mg, Oral, DAILY Taking 08/06/24 Ant Hodge, SCOOBY-LUZ ELENA Xarelto 20 MG tablet 20 mg, Oral, DAILY WITH DINNER Taking 08/14/24 10/13/24 Ant Hodge APRN-LUZ ELENA Loratadine 10 MG tablet 10 mg, DAILY Patient not taking: Reported on 08/06/2024 Not Taking 08/20/23 Historical Provider Melatonin (Melatonin Maximum Strength) 5 MG tablet 5 mg, DAILY AT BEDTIME Patient not taking: Reported on 08/21/2024 Not Taking 04/04/24 Historical Provider Nicotine 21 MG/24HR Patch 24 HR patch 1 patch, EVERY 24 HOURS Patient not taking: Reported on 08/21/2024 Not Taking 01/22/24 Historical Provider Nystatin 930377 UNIT/ML oral suspension 500,000 Units, Swish & Spit, 4 TIMES DAILY Patient not taking: Reported on 08/21/2024 Not Taking 07/21/24 07/28/24 JOSE Jauregui Varenicline Tartrate, Starter, (Chantix Starting Month ) 0.5 MG X 11 & 1 MG X 42 Tab Therapy Pack tablet Take 0.5mg daily for 3 days (days 1-3), then 0.5mg two times a day for 4 days (days 4-7), then 1mg two times a day Patient not taking: Reported on 08/21/2024 Not Taking 08/14/24 JOSE Jauregui ALLERGIES: Allergies Allergies Allergen Reactions Cephalexin Diarrhea and Hives Fenofibrate Other Reaction(s): Other: See Comments Hives with GI upset (emesis) Sertraline Diarrhea and Hives Olanzapine Hives Other Reaction(s): Mental Status Change, Other (See Comments) States makes her agitated Suicidal thoughts Clindamycin Hives States has take since with no issue 08/06/20. Elba Broussard MA States has take since with no issue 08/06/20. Elba Broussard MA REVIEW OF SYSTEMS: GENERAL: Negative for malaise, significant weight loss and fever HEAD: Negative for headache, swelling. NECK: Negative for lumps, goiter, pain and significant neck swelling RESPIRATORY: Negative for cough, wheezing or shortness of breath. CARDIOVASCULAR: Negative for chest pain, leg swelling or palpitations. GI: Negative for abdominal discomfort, blood in stools or black stools or change in bowel habits : No history of dysuria, frequency or incontinence MUSCULOSKELETAL: Negative for joint pain or swelling, back pain or muscle pain. SKIN: Negative for lesions, rash, and itching. PSYCH: Negative for sleep disturbance, mood disorder and recent psychosocial stressors. ENDOCRINE: Negative for cold or heat intolerance, polyuria, polydipsia and goiter. PHYSICAL EXAM: Visit Vitals BP 110/72 (BP Location: Left arm, BP Position: Sitting) Pulse 105 Resp 19 Ht 1.651 m (5' 5) Wt 103.9 kg (229 lb 1.6 oz) SpO2 95% BMI 38.12 kg/m Body mass index is 38.12 kg/m . General appearance: NAD Neuro: AOx3 Head: EOMI; no swelling or lesions of scalp or face ENT: no lumps or lymphadenopathy, thyroid normal to palpation; oropharynx clear, no swelling or erythema Skin: warm, no erythema or rashes Lungs: clear to percussion and auscultation Heart: regular rhythm and S1, S2 normal Abdomen: soft, ND Breast: left nipple retracted and there is an area of chronic inflammation near the areola at the 10 o clock position, with pressure this does express pus from the nipple Extremities: Normal exam of the extremities. No swelling or pain. Psych: no hurried speech, no flight of ideas, normal affect Assessment: Vinod Ann is a 49 y.o. female who had a diagnosis of chronic breast abscess - Labs were independently reviewed and interpreted by me. Any abnormal/normal results are indicated below along with any plan of action from: none - Imaging was independently reviewed and interpreted by me. Any abnormal/normal results are indicated below along with any plan of action from: mammogram, US from [facility] over the summer showing birads 4 and then abscess material with normal lymph nodes on biopsy Plan: - she was a chronic left breast abscess that connects to the nipple-areolar complex. She has had multiple drainages in the past however this continues to recur. We discussed bedside drainage however did not feel that this will be extensive enough to resolve her of the disease process. We discussed performing a and she was an and drainage of the abscess with significant curetting of the abscess cavity and placement of a wound VAC to try and save the nipple areola complex. We discussed that this may recur and if it does she will need a central lumpectomy. She was in agreement to the aforementioned plan. Risks benefits and alternatives of procedure were explained to the patient and she wishes to proceed. I spent greater than 45 minutes in total reviewing the patient's chart, interviewing the patient, and documenting today's visit. Colby Pisano MD Bariatric and Minimally Invasive General Surgery No changes from the above H and P. They wish to proceed. All questions answered. Raymundo Pisano MD documented in this encounter [facility] 09-25-2024 Note Subjective Patient ID: Vinod Ann is a 49 y.o. No obstetric history on file.. HPI 49 y.o. female presents for ER f/u for R labial abscess. Had I&D done at urgent care 1 wk ago and was given bactrim for 3 days. Seen in ER a couple days ago as well. Was told to do sitz baths and continue abx. Denies fevers or chills. States pain improved and no longer draining. Pt also wishes to establish care for annual exam due to hx of abnormal pap smears and requiring a LEEP. The following portions of the patient's history were reviewed and updated as appropriate: allergies, current medications, past family history, past medical history, past social history, past surgical history, and problem list. Review of Systems - see HPI Objective Physical Exam Abdominal: Comments: Yeast-like erythema R groin Genitourinary: Comments: Healing R labial abscess with some swelling but no surrounding erythema Assessment/Plan: Diagnoses and all orders for this visit: Labial abscess - healing well, advise addtl abx x1 wk for resolution. No addtl I&D needed. Rx sent for sally rash. F/u next week for annual exam Sally rash of groin Other orders - sulfamethoxazole-trimethoprim (BACTRIM DS,SEPTRA DS) 800-160 mg per tablet; Take 1 (one) tablet by mouth 2 (two) times a day for 7 days . - nystatin (MYCOSTATIN) powder; Apply to affected area 3 times daily . Rachael Contreras MD AUTHENTICATED BY RACHAEL CONTRERAS, ON 09/25/2024 12:00:14 [facility] 09-25-2024 History of Present illness Narrative Images from the original note were not included. Subjective Patient ID: Vinod Ann is a 49 y.o. No obstetric history on file.. HPI 49 y.o. female presents for ER f/u for R labial abscess. Had I&D done at urgent care 1 wk ago and was given bactrim for 3 days. Seen in ER a couple days ago as well. Was told to do sitz baths and continue abx. Denies fevers or chills. States pain improved and no longer draining. Pt also wishes to establish care for annual exam due to hx of abnormal pap smears and requiring a LEEP. The following portions of the patient's history were reviewed and updated as appropriate: allergies, current medications, past family history, past medical history, past social history, past surgical history, and problem list. Review of Systems - see HPI Objective Physical Exam Abdominal: Comments: Yeast-like erythema R groin Genitourinary: Comments: Healing R labial abscess with some swelling but no surrounding erythema Assessment/Plan: Diagnoses and all orders for this visit: Labial abscess - healing well, advise addtl abx x1 wk for resolution. No addtl I&D needed. Rx sent for sally rash. F/u next week for annual exam Sally rash of groin Other orders - sulfamethoxazole-trimethoprim (BACTRIM DS,SEPTRA DS) 800-160 mg per tablet; Take 1 (one) tablet by mouth 2 (two) times a day for 7 days . - nystatin (MYCOSTATIN) powder; Apply to affected area 3 times daily . Rachael Contrears MD documented in this encounter [facility] 09-23-2024 History of Present illness Narrative Patient: Vinod Ann Patient : 1975 Patient Age: 49 y.o. Today's Date: 09/23/2024 Provider: Tina Andrews APRN-LUZ ELENA History of Present Illness: Patient here today for evaluation of Chief Complaint Patient presents with Other Fluid on left elbow noticed it this morning. Patient presents swelling to the left elbow- she has minimal pain just states that she noticed it. This in her non-dominant arm History: Allergies Allergen Reactions Cephalexin Diarrhea and Hives Fenofibrate Other Reaction(s): Other: See Comments Hives with GI upset (emesis) Sertraline Diarrhea and Hives Olanzapine Hives Other Reaction(s): Mental Status Change, Other (See Comments) States makes her agitated Suicidal thoughts Clindamycin Hives States has take since with no issue 08/06/20. Elba Broussard MA States has take since with no issue 08/06/20. 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 No pertinent family history. Review of Systems: Review of Systems Musculoskeletal: SEE HPI Physical Exam: Vitals: 09/23/24 0821 BP: 135/64 Pulse: 108 Resp: 18 Temp: 97.8 degrees F (36.6 degrees C) TempSrc: Temporal SpO2: 99% Weight: 106.4 kg (234 lb 9.6 oz) Height: 1.651 m (5' 5) Physical Exam Vitals and nursing note reviewed. Constitutional: Appearance: Normal appearance. Musculoskeletal: Left upper arm: Normal. Left elbow: Swelling and effusion present. No deformity or lacerations. Normal range of motion. No tenderness. Left forearm: Normal. Comments: Patient has full ROM on exam and there is no erythema and no pain on exam Neurological: Mental Status: She is alert. Current Medications: Current Outpatient Medications: Acetaminophen Extra Strength 500 MG tablet, Take 2 tablets by mouth 3 times daily as needed., Disp: 60 tablet, Rfl: 0 Albuterol 108 (90 Base) MCG/ACT Aero Soln inhaler, Inhale 2 puffs every 6 hours as needed., Disp: , Rfl: amLODIPine 5 MG tablet, Take 1 tablet by mouth daily. am, Disp: , Rfl: aripiprazole 20 MG tablet, Take 1 tablet by mouth daily. (Patient taking differently: Take 1.5 tablets by mouth daily. pm), Disp: 30 tablet, Rfl: 0 Aspirin 81 MG capsule, Take 81 mg by mouth daily., Disp: 90 capsule, Rfl: 1 Blood Glucose Monitoring Suppl (WellMetris Verio Flex System) w/Device Kit, , Disp: , Rfl: Cholecalciferol (Vitamin D3) 1.25 MG (76308 UT) capsule, Take 1 capsule by mouth once a week., Disp: 12 capsule, Rfl: 0 Cilostazol 100 MG tablet, Take 1 tablet by mouth 2 times daily., Disp: 60 tablet, Rfl: 1 cloNIDine 0.1 MG tablet, Take 1 tablet by mouth daily. (Patient taking differently: Take 1 tablet by mouth daily. pm), Disp: 30 tablet, Rfl: 2 Clotrimazole 10 MG Maricruz, 1 tablet by Mouth/Throat route 5 times daily for 14 days. (Patient not taking: Reported on 09/11/2024), Disp: 70 tablet, Rfl: 0 Drug [place] Unilet Lancets 33G [facility] [place] [facility], , Disp: , Rfl: fluticasone 50 MCG/ACT Suspension nasal spray, 1 spray by Nasal route daily., Disp: 9.9 mL, Rfl: 11 Folic acid 1 MG tablet, Take 1 tablet by mouth daily., Disp: , Rfl: hydrOXYzine pamoate 25 MG capsule, Take 1 capsule by mouth 3 times daily as needed for Anxiety., Disp: 90 capsule, Rfl: 0 Ketoconazole 2 % Cream cream, Apply 1 Application topically daily. (Patient not taking: Reported on 09/11/2024), Disp: , Rfl: Loratadine 10 MG tablet, Take 1 tablet by mouth daily. (Patient not taking: Reported on 08/06/2024), Disp: , Rfl: Melatonin (Melatonin Maximum Strength) 5 MG tablet, Take 1 tablet by mouth at bedtime. (Patient not taking: Reported on 08/21/2024), Disp: , Rfl: mirtazapine 45 MG tablet, Take 1 tablet by mouth every evening at 6 PM., Disp: 30 tablet, Rfl: 2 Nicotine 21 MG/24HR Patch 24 HR patch, Place 1 patch on skin every 24 hours. (Patient not taking: Reported on 08/21/2024), Disp: , Rfl: Nystatin 919223 UNIT/ML oral suspension, Swish and spit 5 mL 4 times daily for 7 days. (Patient not taking: Reported on 08/21/2024), Disp: 140 mL, Rfl: 0 omeprazole [address] capsule, Take 1 capsule by mouth daily. (Patient taking differently: Take 1 capsule by mouth daily. am), Disp: 90 capsule, Rfl: 2 OneTouch Verio Strip strip, by In Vitro route before meals & at bedtime as needed for Other. (Patient not taking: Reported on 09/11/2024), Disp: , Rfl: oxyBUTYnin 15 MG Tab SR 24 HR, Take 1 tablet by mouth daily., Disp: 30 tablet, Rfl: 2 Prazosin 2 MG capsule, Take 1 capsule by mouth at bedtime., Disp: 30 capsule, Rfl: 2 Rosuvastatin 10 MG tablet, Take 1 tablet by mouth daily. (Patient taking differently: Take 1 tablet by mouth daily. pm), Disp: 90 tablet, Rfl: 2 Sulfamethoxazole-trimethoprim (Bactrim DS) 800-160 MG per tablet, Take 1 tablet by mouth 2 times daily for 5 days., Disp: 10 tablet, Rfl: 0 Varenicline Tartrate, Starter, (Chantix Starting Month Chantel) 0.5 MG X 11 & 1 MG X 42 Tab Therapy Pack tablet, Take 0.5mg daily for 3 days (days 1-3), then 0.5mg two times a day for 4 days (days 4-7), then 1mg two times a day (Patient not taking: Reported on 08/21/2024), Disp: 1 Each, Rfl: 0 Xarelto 20 MG tablet, Take 1 tablet by mouth daily with dinner., Disp: 30 tablet, Rfl: 1 Health Maintenance List: Health Maintenance Topic Date Due HEPATITIS C VIRUS SCREENING Never done HIV SCREENING DISCUSSION Never done HEP B VACCINE (1 of 3 - 19+ 3-dose series) Never done CERVICAL CANCER SCREENING DISCUSSION Never done LIPID SCREENING Never done PNEUMOCOCCAL VACCINE SERIES (2 of 2 - PCV) 11/20/2015 COLORECTAL CANCER SCREENING DISCUSSION Never done MAMMOGRAM SCREENING DISCUSSION 01/03/2023 ZOSTER (SHINGLES) VACCINE (1 of 2) Never done LUNG CANCER SCREENING 01/24/2024 INFLUENZA VACCINE (1) 07/06/2024 COVID-19 VACCINE ( - 2023- season) Never done TETANUS 11/19/2028 TDAP (ADULT) Completed Assessment & Plan: ICD-10-CM 1. Bursitis of left elbow, unspecified bursa M70.32 AMB REFERRAL TO ORTHOPAEDICS Referral to ortho was made - reviewed her diagnosis - she has no pain and swelling has just showed up and exhibits no signs of trauma. She denies ay falls to warrant xray's today - She is limited to taking Motrin or ibuprofen. Wrap as needed. We discussed when to go to ED for this and she agreed to proceed No follow-ups on file. Patient was advised to call with any questions or concerns. If symptoms worsen patient was advised to follow up in our office or the Emergency Dept. Benefits, risks, contraindications, and complications of recommended treatments were explained the patient understands and agrees to proceed with plan. documented in this encounter [facility] 09-18-2024 History of Present illness Narrative Associated Order(s): INCISION AND DRAINAGE Post-Procedure Diagnose(s): Abscess of right genital labia Images from the original note were not included. HPI Vinod Ann female 1975 presents to the [facility] with Chief Complaint Patient presents with Other Boil on vagina area for 2 days. Patient comes with complaints of boil on right labia that she has noticed for 2 days. She reports pain and inflammation, not draining. History Allergies Allergen Reactions Cephalexin Diarrhea and Hives Fenofibrate Other Reaction(s): Other: See Comments Hives with GI upset (emesis) Sertraline Diarrhea and Hives Olanzapine Hives Other Reaction(s): Mental Status Change, Other (See Comments) States makes her agitated Suicidal thoughts Clindamycin Hives States has take since with no issue 08/06/20. Elba Broussard MA States has take since with no issue 08/06/20. Elba Broussard MA Current Outpatient Medications Medication Sig Acetaminophen Extra Strength 500 MG tablet Take 2 tablets by mouth 3 times daily as needed. Albuterol 108 (90 Base) MCG/ACT Aero Soln inhaler Inhale 2 puffs every 6 hours as needed. amLODIPine 5 MG tablet Take 1 tablet by mouth daily. am aripiprazole 20 MG tablet Take 1 tablet by mouth daily. (Patient taking differently: Take 1.5 tablets by mouth daily. pm) Aspirin 81 MG capsule Take 81 mg by mouth daily. Blood Glucose Monitoring Suppl (WellMetris Verio Flex System) w/Device Kit (Patient not taking: Reported on 09/11/2024) Cholecalciferol (Vitamin D3) 1.25 MG (69856 UT) capsule Take 1 capsule by mouth once a week. Cilostazol 100 MG tablet Take 1 tablet by mouth 2 times daily. cloNIDine 0.1 MG tablet Take 1 tablet by mouth daily. (Patient taking differently: Take 1 tablet by mouth daily. pm) Clotrimazole 10 MG Maricruz 1 tablet by Mouth/Throat route 5 times daily for 14 days. (Patient not taking: Reported on 09/11/2024) doxycycline hyclate 100 MG capsule Take 1 capsule by mouth 2 times daily for 10 days. Drug [place] Unilet Lancets 33G Mis (Patient not taking: Reported on 09/11/2024) fluticasone 50 MCG/ACT Suspension nasal spray 1 spray by Nasal route daily. Folic acid 1 MG tablet Take 1 tablet by mouth daily. hydrOXYzine pamoate 25 MG capsule Take 1 capsule by mouth 3 times daily as needed for Anxiety. Ketoconazole 2 % Cream cream Apply 1 Application topically daily. (Patient not taking: Reported on 09/11/2024) Loratadine 10 MG tablet Take 1 tablet by mouth daily. (Patient not taking: Reported on 08/06/2024) Melatonin (Melatonin Maximum Strength) 5 MG tablet Take 1 tablet by mouth at bedtime. (Patient not taking: Reported on 08/21/2024) mirtazapine 45 MG tablet Take 1 tablet by mouth every evening at 6 PM. Nicotine 21 MG/24HR Patch [address] 1 patch on skin every 24 hours. (Patient not taking: Reported on 08/21/2024) Nystatin 666915 UNIT/ML oral suspension Swish and spit 5 mL 4 times daily for 7 days. (Patient not taking: Reported on 08/21/2024) omeprazole [address] capsule Take 1 capsule by mouth daily. (Patient taking differently: Take 1 capsule by mouth daily. am) OneTouch Verio Strip strip by In Vitro route before meals & at bedtime as needed for Other. (Patient not taking: Reported on 09/11/2024) oxyBUTYnin 15 MG Tab SR 24 HR Take 1 tablet by mouth daily. Prazosin 2 MG capsule Take 1 capsule by mouth at bedtime. Rosuvastatin 10 MG tablet Take 1 tablet by mouth daily. (Patient taking differently: Take 1 tablet by mouth daily. pm) Sulfamethoxazole-trimethoprim (Bactrim DS) 800-160 MG per tablet Take 1 tablet by mouth 2 times daily for 5 days. Varenicline Tartrate, Starter, (Chantix Starting Month ) 0.5 MG X 11 & 1 MG X 42 Tab Therapy Pack tablet Take 0.5mg daily for 3 days (days 1-3), then 0.5mg two times a day for 4 days (days 4-7), then 1mg two times a day (Patient not taking: Reported on 08/21/2024) Xarelto 20 MG tablet Take 1 tablet by mouth daily with dinner. 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 Past Surgical History: Procedure Laterality Date CHOLECYSTECTOMY LAPAROSCOPIC HAND SURGERY Left I&D ABSCESS Left breast LAPAROTOMY EXPLORATORY LEEP PROCEDURE Social History Socioeconomic History Marital status: Single Spouse name: Not on file Number of children: Not on file Years of education: Not on file Highest education level: Not on file Occupational History Not on file Tobacco Use Smoking status: Every Day Current packs/day: 2.00 Average packs/day: 2.0 packs/day for 35.9 years (71.7 ttl pk-yrs) Types: Cigarettes Start date: 1988 Smokeless tobacco: Never Vaping Use Vaping status: Some Days Substance and Sexual Activity Alcohol use: Not Currently Drug use: Not Currently Types: Methamphetamines, Marijuana Comment: former Sexual activity: Not Currently control/protection: Menopause Other Topics Concern Service Not Asked Blood Transfusions Not Asked Caffeine Concern Not Asked Occupational Exposure Not Asked Hobby Hazards Not Asked Sleep Concern Not Asked Stress Concern Not Asked Weight Concern Not Asked Special Diet Not Asked Back Care Not Asked Exercise Not Asked Bike Helmet Not Asked Seat Belt Not Asked Domestic Violence No Social History Narrative Not on file Social Determinants of Health Financial Resource Strain: Not on file Food Insecurity: Food Insecurity Present (12/14/2023) [facility] Hunger Vital Sign Worried About Running Out of Food in the Last Year: Sometimes true Ran Out of Food in the Last Year: Sometimes true Transportation Needs: Unmet Transportation Needs (12/14/2023) Re[facility] from [facility] PRAPARE - Transportation Lack of Transportation (Medical): Yes Lack of Transportation (Non-Medical): Yes Physical Activity: Not on file Stress: Not on file Social Connections: Not on file Intimate Partner Violence: Not on file Housing Stability: Not on file History reviewed. No pertinent family history. ROS Review of Systems 8 systems reviewed with patient, negative unless specifically mentioned in history of present illness PHYSICAL EXAM Visit Vitals BP 133/79 (BP Location: Left arm, BP Position: Sitting) Pulse 117 Temp 97.7 F (36.5 C) (Temporal) Resp 18 Ht 1.651 m (5' 5) Wt 105.1 kg (231 lb 9.6 oz) SpO2 96% BMI 38.54 kg/m Physical Exam Vitals and nursing note reviewed. Constitutional: General: She is not in acute distress. Appearance: She is not ill-appearing, toxic-appearing or diaphoretic. HENT: Mouth/Throat: Mouth: Mucous membranes are moist. Cardiovascular: Rate and Rhythm: Normal rate and regular rhythm. Pulses: Normal pulses. Heart sounds: Normal heart sounds. Pulmonary: Effort: Pulmonary effort is normal. Breath sounds: Normal breath sounds. Genitourinary: Skin: General: Skin is warm and dry. Neurological: General: No focal deficit present. Mental Status: She is alert and oriented to person, place, and time. INCISION AND DRAINAGE Date/Time: 09/18/2024 5:50 PM Performed by: Tiff Wilson CNP Authorized by: Tiff Wilson CNP Indications: Type: Abscess Location: Body area: Anogenital Procedure Details: Needle gauge: 18 Incision type: Single straight Complexity: Simple Drainage: Serosanguinous and purulent Drainage amount: Moderate Wound treatment: Wound left open Dressing: non-adherent dressing RESULTS No results found for this or any previous visit (from the past 2 hour(s)). ASSESSMENT/PLAN 1. Abscess of right genital labia Orders Placed This Encounter INCISION AND DRAINAGE CULTURE WOUND Sulfamethoxazole-trimethoprim (Bactrim DS) 800-160 MG per tablet Boil lanced as described above, draining serosanguineous and purulent fluid. Culture obtained and sent. Instructed patient to apply warm moist cloth to encourage continued draining. Placed on Bactrim to cover for MRSA. Follow up with PCP as needed. Patient was advised to call with any questions or concerns. If symptoms worsen patient was advised to follow up in our office or the Emergency Dept. Benefits, risks, contraindications, and complications of recommended treatments were explained the patient understands and agrees to proceed with plan. Tiff Wilson CNP 09/18/2024 documented in this encounter [facility] 09-18-2024 Instructions Tiff Wilson CNP - 09/18/2024 5:50 PM EST Thank you for allowing us to be involved in your care today. Please follow up as discussed during your stay. This information is included in your discharge paperwork. Appropriate follow up is essential in your continued care after today's visit. Go to the Emergency Department at any point with worsening conditions or concerns. The [employer] and staff of the Urgent Care would like to thank you for choosing our facility for your health care needs. Our goal is to provide exceptional service. You may be receiving a survey in the mail following your visit. Because your feedback is very important to us, we hope you will take the time to complete and return the survey. If for any reason, you feel that you cannot rate us Very Good or 5 for the service you received today, please let us know prior to your discharge. Please follow up with your family doctor or one of your choosing. You may find a provider through the [employer] Physician Referral Service by calling [phone] or by visiting [email or web address] Thank You for choosing the [facility]! The following attachments cannot be sent through Care Everywhere.Abscess: Skin (Nepalese)documented in this encounter [facility] 09-08-2024 History of Present illness Narrative Images from the original note were not included. Patient: Vinod Ann Patient : 1975 Patient Age: 49 y.o. Today's Date: 09/08/2024 Provider: JOSE Lockhart History of Present Illness: Patient here today for evaluation of Chief Complaint Patient presents with Other Bump on left breast for 6 years Patient presents with a abscess to the left breast that she states has been present for more than 6 years - she states that she is scheduled to have it removed in a couple weeks, but now the area has flared on her. History: Allergies Allergen Reactions Cephalexin Diarrhea and Hives Fenofibrate Other Reaction(s): Other: See Comments Hives with GI upset (emesis) Sertraline Diarrhea and Hives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 relocated to [facility] and would like to know if you could recommend a vascular doctor in the area Please contact / advise @ [phone] documented in this encounter [facility] 08-06-2024 History of Present illness Narrative Patient presenting for 2 week follow up for hypertension and palpations with Ant Hodge CNP Last seen 07/21/2024 Hypertension: Blood pressure slightly above goal today here in office at 140/82 we will continue patient on amlodipine 5 mg daily at this time Patient comes in from [facility] drug rehab facility. She had felt her heart rate going up and some chest pain. She has a history anxiety and she is there for methamphetamine and other substance abuse. That included some alcohol and marijuana. She is on a blood thinner due to blood clots and is compliant with her Xarelto. She has not ad blood clots on the Xarelto. She is taking all of her other medicines. She herself admits that it could be anxiety. She may have also gotten little dry with the heat but otherwise healthy. Today Patient presenting for 2 week follow up for hypertension and palpitations Hypertension : Taking amlodipine 5 mg daily ? yes Any adverse reactions to the medication ? no Palpitations : Follow Up Visit Vinod Ann [id number] 08/06/2024 Chief Complaint Patient presents with Hypertension Patient presenting for 2 week follow up for hypertension and palpitations History of Present Illness: Vinod Ann is a 49 y.o. female presenting for follow up of hypertension, thrush, cellulitis, blood work review Last office visit 07/21/2024 Previous visit plan Assessment and Plan: Vinod Ann is a 49 y.o. female that presented for evaluation of establish care with multiple complaints. 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 and participating in outpatient drug counseling Night terror: Continue the patient on prazosin 2 mg daily at bedtime; refills sent to pharmacy Incontinence in female: Continue on oxybutynin 15 mg daily refill sent to pharmacy Vocal cord lesion: Patient is scheduled to follow-up with Anesthesiology and ENT for planned surgery this is being done at [facility] Blue toe syndrome history of peripheral arterial disease: Patient was consulted with vascular surgery she was seen however did not follow-up with arterial testing in scans that were ordered patient is stating she will need a new referral we will plan for new referral once vocal cord lesion surgery has been completed Blood work ordered We will follow-up with patient in 2 weeks due to history of multiple other chronic diseases Today: Palpitations tachycardia: Patient reports she is having tachycardia/palpitations all the time patient is recovered alcoholic/previous illicit drug user she is currently living in a sober house and has not had any previous cardiac workup to my knowledge or that she can recall. Recent breast biopsy: wound still open on left breast; patient was supposed to follow-up with her provider at [facility] however they were unable to reach her according to documentation gave patient the phone number of the physician instructed her to follow-up or call and make the appointment to follow-up regarding the biopsy Cellulitis has resolved patient reports she completed doxycycline Oral thrush resolved patient completed nystatin swish and swallow treatment Patient is unable to state are identified medications that she is taking she is unaware of what medicine she is on or what they are for, patient has not scheduled any follow up appointments She is not currently following with Psychiatry she is unsure whether she has seen a psychiatrist Patient is in need of case management for medical chronic disease management History: Past Medical History: Diagnosis Date Diabetes mellitus dorder line Essential hypertension, benign Hyperlipidemia PAD (peripheral artery disease) Past Surgical History: Procedure Laterality Date CHOLECYSTECTOMY LAPAROSCOPIC HAND SURGERY Right I&D ABSCESS Left breast LEEP PROCEDURE History reviewed. No pertinent family history. Social History Socioeconomic History Marital status: Single Tobacco Use Smoking status: Every Day Current packs/day: 2.00 Average packs/day: 2.0 packs/day for 35.8 years (71.5 ttl pk-yrs) Types: Cigarettes Start date: 1988 Smokeless tobacco: Never Vaping Use Vaping status: Some Days Substances: Nicotine Devices: Disposable Substance and Sexual Activity Alcohol use: Not Currently Drug use: Not Currently Sexual activity: Not Currently control/protection: Menopause Social Determinants of Health Food Insecurity: Food Insecurity Present (12/14/2023) Received from [facility] Hunger Vital Sign Worried About Running Out of Food in the Last Year: Sometimes true Ran Out of Food in the Last Year: Sometimes true Transportation Needs: Unmet Transportation Needs (12/14/2023) Received from [facility] PRAPARE - Transportation Lack of Transportation (Medical): Yes Lack of Transportation (Non-Medical): Yes Social History Tobacco Use Smoking Status Every Day Current packs/day: 2.00 Average packs/day: 2.0 packs/day for 35.8 years (71.5 ttl pk-yrs) Types: Cigarettes Start date: 1988 Smokeless Tobacco Never Social History Substance and Sexual Activity Alcohol Use Not Currently Social History Substance and Sexual Activity Drug Use Not Currently Allergies: Cephalexin, Fenofibrate, Sertraline, Olanzapine, and Clindamycin Home Medications: Current Outpatient Medications: Albuterol 108 (90 Base) MCG/ACT Aero Soln inhaler, Inhale 2 puffs every 6 hours as needed., Disp: , Rfl: Aspirin 81 MG capsule, Take 81 mg by mouth daily., Disp: 90 capsule, Rfl: 1 Blood Glucose Monitoring Suppl ([employer] OnDemandTouch Verio Flex System) w/Device Kit, , Disp: , Rfl: Cholecalciferol (Vitamin D3) 1.25 MG (50883 UT) capsule, Take 1 capsule by mouth once a week., Disp: 12 capsule, Rfl: 0 cloNIDine 0.1 MG tablet, Take 1 tablet by mouth daily., Disp: 30 tablet, Rfl: 2 Clotrimazole 10 MG Maricruz, 1 tablet by Mouth/Throat route 5 times daily for 14 days., Disp: 70 tablet, Rfl: 0 Drug [place] Unilet Lancets 33G [facility] [place] [facility], , Disp: , Rfl: fluticasone 50 MCG/ACT Suspension nasal spray, 1 spray by Nasal route daily., Disp: 9.9 mL, Rfl: 11 Folic acid 1 MG tablet, Take 1 tablet by mouth daily., Disp: , Rfl: hydrOXYzine pamoate 25 MG capsule, Take 1 capsule by mouth 3 times daily as needed for Anxiety., Disp: , Rfl: Ketoconazole 2 % Cream cream, Apply 1 Application topically daily., Disp: , Rfl: Melatonin (Melatonin Maximum Strength) 5 MG tablet, Take 1 tablet by mouth at bedtime., Disp: , Rfl: mirtazapine 45 MG tablet, Take 1 tablet by mouth every evening at 6 PM., Disp: 30 tablet, Rfl: 2 Nicotine 21 MG/24HR Patch 24 HR patch, Place 1 patch on skin every 24 hours., Disp: , Rfl: omeprazole [address] capsule, Take 1 capsule by mouth daily., Disp: 90 capsule, Rfl: 2 OneTouch Verio Strip strip, by In Vitro route before meals & at bedtime as needed for Other., Disp: , Rfl: oxyBUTYnin 15 MG Tab SR 24 HR, Take 1 tablet by mouth daily., Disp: 30 tablet, Rfl: 2 Prazosin 2 MG capsule, Take 1 capsule by mouth at bedtime., Disp: 30 capsule, Rfl: 2 Rosuvastatin 10 MG tablet, Take 1 tablet by mouth daily., Disp: 90 tablet, Rfl: 2 Xarelto 20 MG tablet, Take 1 tablet by mouth daily with dinner., Disp: , Rfl: aripiprazole 20 MG tablet, Take 1 tablet by mouth daily., Disp: 30 tablet, Rfl: 0 Loratadine 10 MG tablet, Take 1 tablet by mouth daily. (Patient not taking: Reported on 08/06/2024), Disp: , Rfl: Nystatin 339151 UNIT/ML oral suspension, Swish and spit 5 mL 4 times daily for 7 days., Disp: 140 mL, Rfl: 0 ROS: Review of Systems Constitutional: Negative for activity change, appetite change, fatigue and fever. HENT: Negative. Respiratory: Negative for chest tightness and shortness of breath. Cardiovascular: Positive for palpitations. Negative for chest pain. Gastrointestinal: Negative for diarrhea, nausea and vomiting. Genitourinary: Negative for difficulty urinating. Musculoskeletal: Positive for arthralgias and myalgias. Negative for back pain. Neurological: Negative for dizziness, weakness, light-headedness and headaches. Psychiatric/Behavioral: Positive for decreased concentration. The patient is nervous/anxious. Physical Examination: Vital Signs: BP 126/74 Pulse 97 Temp 97.7 F (36.5 C) Resp 18 Ht 1.651 m (5' 5) Wt 104.6 kg (230 lb 9.6 oz) SpO2 96% BMI 38.37 kg/m Smoking Status Every Day Patient presenting for 2 week follow up for hypertension and palpations with Ant Hodge CNP Last seen 07/21/2024 Hypertension: Blood pressure slightly above goal today here in office at 140/82 we will continue patient on amlodipine 5 mg daily at this time Patient comes in from [facility] drug rehab facility. She had felt her heart rate going up and some chest pain. She has a history anxiety and she is there for methamphetamine and other substance abuse. That included some alcohol and marijuana. She is on a blood thinner due to blood clots and is compliant with her Xarelto. She has not ad blood clots on the Xarelto. She is taking all of her other medicines. She herself admits that it could be anxiety. She may have also gotten little dry with the heat but otherwise healthy. Today Patient presenting for 2 week follow up for hypertension and palpitations Hypertension : Taking amlodipine 5 mg daily ? yes Any adverse reactions to the medication ? no Palpitations : Physical Exam Vitals reviewed. Constitutional: General: She is not in acute distress. Appearance: Normal appearance. She is not ill-appearing. Eyes: Pupils: Pupils are equal, round, and reactive to light. Cardiovascular: Rate and Rhythm: Normal rate and regular rhythm. Pulmonary: Effort: Pulmonary effort is normal. Breath sounds: Normal breath sounds. Skin: General: Skin is warm and dry. Findings: Wound (left breast) present. Lesion: left breast. Neurological: Mental Status: She is alert and oriented to person, place, and time. Comments: Tongue thrust Psychiatric: Attention and Perception: She is inattentive. Mood and Affect: Affect is labile. Speech: Speech normal. Behavior: Behavior is slowed. Behavior is cooperative. Cognition and Memory: Cognition is impaired. Memory is impaired. Procedure none Laboratory and Additional Data Reviewed: Results for orders placed or performed in visit on 07/21/24 VITAMIN D (25-HYDROXY,TOTAL) Result Value Ref Range VITAMIN D 25 HYDROXY 52.9 NG/ML VITAMIN B12 Result Value Ref Range VITAMIN B12 331 239 - 931 PG/ML FOLATE, SERUM Result Value Ref Range FOLATE >20.0 (H) 2.56 - 20.0 NG/ML No images are attached to the encounter. Assessment and Plan: Vinod Ann is a 49 y.o. female that presents for follow up for follow-up on thrush and cellulitis, chronic disease management Peripheral arterial disease: Continue on aspirin 81 mg daily it is unclear if patient is following with her vascular surgeon or not we will continue to reach out to them to see if patient was met to follow-up Hypertension: Blood pressure is controlled on current antihypertensive regimen no change today refill clonidine Palpitations/tachycardia: We will refer patient to Cardiology for evaluation Hyperlipidemia: Continue on statin therapy refill rosuvastatin 10 mg daily GERD: Continue on omeprazole 40 mg daily refill sent to pharmacy Vitamin-D deficiency: Prescribed vitamin D3 85446 unit capsule once a week Night terrors: Continue on prazosin 2 mg daily at bedtime We will have staff contact the facility where patient currently resides patient is in need of case management for medical management she is not able to follow-up in her healthcare she is not able to manage her own medications. Follow-up in 3 months Call the office for any questions or concerns. I did have discussion that if any medications are not covered or is not able to get the medications to call the office and let us know so other alternative/arrangements can be made. Vinod was seen today for hypertension. Diagnoses and all orders for this visit: PAD (peripheral artery disease) - Aspirin 81 MG capsule; Take 81 mg by mouth daily. Essential hypertension - cloNIDine 0.1 MG tablet; Take 1 tablet by mouth daily. Palpitations - AMB REFERRAL TO CARDIOVASCULAR MEDICINE Tachycardia - AMB REFERRAL TO CARDIOVASCULAR MEDICINE Mixed hyperlipidemia - Rosuvastatin 10 MG tablet; Take 1 tablet by mouth daily. Medically noncompliant Gastroesophageal reflux disease, unspecified whether esophagitis present - omeprazole [address] capsule; Take 1 capsule by mouth daily. Vitamin D deficiency - Cholecalciferol (Vitamin D3) 1.25 MG (20022 UT) capsule; Take 1 capsule by mouth once a week. Night terror - Prazosin 2 MG capsule; Take 1 capsule by mouth at bedtime. JOSE Jauregui documented in this encounter [facility] 08-01-2024 History of Present illness Narrative HISTORY OF PRESENT ILLNESS- Vinod Ann is a 49 y.o. female who comes in with the following complaint(s): lesions on vocal cord Lesion was found on vocal cord and throat at [facility]. Throat is a little scratchy. No problem swallowing ENT History & Physical Chief Complaint: New Patient (Lesions on vocal cord ) Referring Provider: Self, Self HPI: Vinod Ann is a 49 y.o. female who presents with dysphonia, vocal cord leukoplakia, allergies and an ear problem. She reports being seen at [facility] where she was diagnosed with vocal cord leukoplakia and plan was for laser surgery. However she presents here today to see if this can be done locally. She also notes nasal congestion, drainage, and left aural pressure. She has trouble popping her left ear. She is a current smoker. The following areas of the chart have been personally reviewed: Tobacco Allergies Meds Problems Med Hx Surg Hx Fam Hx Review of Systems: General: Negative Eyes: Negative ENT: Per HPI Heart: Negative Respiratory: Negative GI: Negative : Negative Skin: Negative Neuro: Negative Psych: Negative Endocrine: Negative Heme/lymph: Negative Past Medical History: Past Medical History: Diagnosis Date Diabetes mellitus dorder line Essential hypertension, benign Hyperlipidemia PAD (peripheral artery disease) Past Surgical History: Past Surgical History: Procedure Laterality Date CHOLECYSTECTOMY LAPAROSCOPIC HAND SURGERY Right I&D ABSCESS Left breast LEEP PROCEDURE Medications: Current Outpatient Medications Medication Sig Albuterol 108 (90 Base) MCG/ACT Aero Soln inhaler Inhale 2 puffs every 6 hours as needed. amLODIPine 5 MG tablet Take 1 tablet by mouth daily. Aspirin 81 MG capsule Take 81 mg by mouth daily. Blood Glucose Monitoring Suppl ([employer] Verio Flex System) w/Device Kit Cholecalciferol (Vitamin D3) 1.25 MG (21910 UT) capsule Take 1 capsule by mouth once a week. Cilostazol 100 MG tablet Take 1 tablet by mouth 2 times daily. cloNIDine 0.1 MG tablet Take 1 tablet by mouth daily. Drug [place] Unilet Lancets 33G Misc Ergocalciferol 1.25 MG (88365 UT) capsule Take 1 capsule by mouth once a week. Folic acid 1 MG tablet Take 1 tablet by mouth daily. Loratadine 10 MG tablet Take 1 tablet by mouth daily. Melatonin (Melatonin Maximum Strength) 5 MG tablet Take 1 tablet by mouth at bedtime. mirtazapine 45 MG tablet Take 1 tablet by mouth every evening at 6 PM. Nicotine 21 MG/24HR Patch [address] 1 patch on skin every 24 hours. omeprazole [address] capsule Take 1 capsule by mouth daily. [employer] Verio Strip strip by In Vitro route before meals & at bedtime as needed for Other. oxyBUTYnin 15 MG Tab SR 24 HR Take 1 tablet by mouth daily. Prazosin 2 MG capsule Take 1 capsule by mouth at bedtime. Rosuvastatin 10 MG tablet Take 1 tablet by mouth daily. Xarelto 20 MG tablet Take 1 tablet by mouth daily with dinner. aripiprazole 20 MG tablet Take 1 tablet by mouth daily for 2 days. fluticasone 50 MCG/ACT Suspension nasal spray 1 spray by Nasal route daily. Nystatin [id number] UNIT/ML oral suspension Swish and spit 5 mL 4 times daily for 7 days. Allergies: Allergies Allergen Reactions Cephalexin Diarrhea and Hives Fenofibrate Other Reaction(s): Other: See Comments Hives with GI upset (emesis) Sertraline Diarrhea and Hives Olanzapine Hives Other Reaction(s): Mental Status Change, Other (See Comments) States makes her agitated Suicidal thoughts Clindamycin Hives States has take since with no issue 08/06/20. Elba Broussard MA States has take since with no issue 08/06/20. Elba Broussard MA Family History: History reviewed. No pertinent family history. Social History: Social History Tobacco Use Smoking status: Every Day Current packs/day: 2.00 Average packs/day: 2.0 packs/day for 35.7 years (71.5 ttl pk-yrs) Types: Cigarettes Start date: 1988 Smokeless tobacco: Never Vaping Use Vaping status: Some Days Substances: Nicotine Devices: Disposable Substance Use Topics Alcohol use: Not Currently Drug use: Not Currently Objective: Vitals: 08/01/24 0941 Temp: 97.2 F (36.2 C) General: No acute distress Head: Normocephalic, atraumatic Face: Bilateral symmetric movement, sensation intact Eyes: Extraocular movements intact, no scleral icterus Ears: No external deformity. Examined under binocular otomicroscopy. LEFT ear canal patent, tympanic membrane mildly retracted, pearly fregoso, and without effusion RIGHT ear canal patent, tympanic membrane midposition, pearly fregoso, and without effusion Nose: Nasal cavities patent, no lesions Mouth: Moist mucous membranes, no lesions Neck: Supple, nontender, no lymphadenopathy Cardiovascular: Intact peripheral perfusion Pulmonary: Equal chest rise, nonlabored respirations, no stridor Skin: Warm and dry, no lesions of the head and neck Neuro: Alert and oriented, no cranial nerve deficits Psych: Normal affect Flexible fiberoptic videostroboscopy findings (for procedure details, see separately dictated procedure note): Findings: Nasal Cavity: no masses or lesions, pink mucosa; severe clear mucous stranding and edema Nasopharynx: no masses or lesions, pink mucosa Oropharynx: no masses or lesions, base of tongue clear of lesions; severe cobblestoning circumferentially Supraglottis: no masses or lesions Piriforms: there is no pooling of secretions in the piriform sinuses Subglottis: visualized subglottis is broadly patent Stroboscopy: Supraglottic effort: Normal Arytenoid symmetry: L=R Arytenoid position: Normal Amplitude: Normal Glottic closure: Complete Periodicity: Regular Mucosal wave: Normal with 30-50% lateral travel Phase symmetry: Symmetric Vocal folds: Bilateral vocal fold leukoplakia and edema Vocal fold mobility: Intact bilaterally Interarytenoid pachydermia Assessment and Plan: Vinod was seen today for new patient. Diagnoses and all orders for this visit: Dysphonia - CO LARYNGOSCOPY FLX/RGD TELESCOPIC W/STROBOSCOPY Vocal cord leukoplakia - CO LARYNGOSCOPY FLX/RGD TELESCOPIC W/STROBOSCOPY Allergic rhinitis due to dust - fluticasone 50 MCG/ACT Suspension nasal spray; 1 spray by Nasal route daily. Deviated nasal septum Nasal congestion Nasal turbinate hypertrophy Dysfunction of left eustachian tube - CO BINOCULAR MICROSCOPY SEPARATE DX PROCEDURE - fluticasone 50 MCG/ACT Suspension nasal spray; 1 spray by Nasal route daily. -- Stroboscopy showed evidence of severe allergic rhinitis, as well as bilateral vocal fold leukoplakia. I recommend she continue with her [employer] regarding management of her vocal fold leukoplakia. She will follow-up in [place] for this. -- Will treat allergic rhinitis with daily Flonase -- RTC PRN She Treadwell MD documented in this encounter [facility] 08-01-2024 Note She Treadwell MD 10:06 AM Procedure: Flexible fiberoptic videostroboscopy (CPT 67983) Performed by: She Treadwell MD Pre-procedure diagnosis: Dysphonia Post-procedure diagnosis: Same Description: After obtaining informed consent, the patient was positioned seated upright. The flexible fiberoptic scope was passed atraumatically through the nasal cavity and nasopharynx to obtain a view of the larynx. Videostroboscopy was performed. The findings are as described below. The flexible scope was removed. The patient tolerated the procedure well and I performed the procedure myself. Findings: Nasal Cavity: no masses or lesions, pink mucosa; severe clear mucous stranding and edema Nasopharynx: no masses or lesions, pink mucosa Oropharynx: no masses or lesions, base of tongue clear of lesions; severe cobblestoning circumferentially Supraglottis: no masses or lesions Piriforms: there is no pooling of secretions in the piriform sinuses Subglottis: visualized subglottis is broadly patent Stroboscopy: Supraglottic effort: Normal Arytenoid symmetry: L=R Arytenoid position: Normal Amplitude: Normal Glottic closure: Complete Periodicity: Regular Mucosal wave: Normal with 30-50% lateral travel Phase symmetry: Symmetric Vocal folds: Bilateral vocal fold leukoplakia and edema Vocal fold mobility: Intact bilaterally Interarytenoid pachydermia Procedure: Binocular otomicroscopy (CPT 96382) Performed by: She Treadwell MD Pre-procedure diagnosis: hearing loss, otalgia, and eustachian tube dysfunction Post-procedure diagnosis: Same Description: After obtaining verbal informed consent, the patient was positioned seated upright. The binocular microscope and a disposable otic speculum were used to examine the bilateral ears. The findings are as described below. The speculum was removed. The patient tolerated the procedure well and I performed the procedure myself. Findings: LEFT ear canal patent, tympanic membrane mildly retracted, pearly fregoso, and without effusion RIGHT ear canal patent, tympanic membrane midposition, pearly fregoso, and without effusion [facility] 08-01-2024 Note She Treadwell MD 10:06 AM Procedure: Flexible fiberoptic videostroboscopy (CPT 50751) Performed by: She Treadwell MD Pre-procedure diagnosis: Dysphonia Post-procedure diagnosis: Same Description: After obtaining informed consent, the patient was positioned seated upright. The flexible fiberoptic scope was passed atraumatically through the nasal cavity and nasopharynx to obtain a view of the larynx. Videostroboscopy was performed. The findings are as described below. The flexible scope was removed. The patient tolerated the procedure well and I performed the procedure myself. Findings: Nasal Cavity: no masses or lesions, pink mucosa; severe clear mucous stranding and edema Nasopharynx: no masses or lesions, pink mucosa Oropharynx: no masses or lesions, base of tongue clear of lesions; severe cobblestoning circumferentially Supraglottis: no masses or lesions Piriforms: there is no pooling of secretions in the piriform sinuses Subglottis: visualized subglottis is broadly patent Stroboscopy: Supraglottic effort: Normal Arytenoid symmetry: L=R Arytenoid position: Normal Amplitude: Normal Glottic closure: Complete Periodicity: Regular Mucosal wave: Normal with 30-50% lateral travel Phase symmetry: Symmetric Vocal folds: Bilateral vocal fold leukoplakia and edema Vocal fold mobility: Intact bilaterally Interarytenoid pachydermia Procedure: Binocular otomicroscopy (CPT 15079) Performed by: She Treadwell MD Pre-procedure diagnosis: hearing loss, otalgia, and eustachian tube dysfunction Post-procedure diagnosis: Same Description: After obtaining verbal informed consent, the patient was positioned seated upright. The binocular microscope and a disposable otic speculum were used to examine the bilateral ears. The findings are as described below. The speculum was removed. The patient tolerated the procedure well and I performed the procedure myself. Findings: LEFT ear canal patent, tympanic membrane mildly retracted, pearly fregoso, and without effusion RIGHT ear canal patent, tympanic membrane midposition, pearly fregoso, and without effusion [facility] 08-01-2024 Procedure note Associated Ord er(s): CO BINOCULAR MICROSCOPY SEPARATE DX PROCEDURE; CO LARYNGOSCOPY FLX/RGD TELESCOPIC W/STROBOSCOPY Procedure: Flexible fiberoptic videostroboscopy (CPT 26357) Performed by: She Treadwell MD Pre-procedure diagnosis: Dysphonia Post-procedure diagnosis: Same Description: After obtaining informed consent, the patient was positioned seated upright. The flexible fiberoptic scope was passed atraumatically through the nasal cavity and nasopharynx to obtain a view of the larynx. Videostroboscopy was performed. The findings are as described below. The flexible scope was removed. The patient tolerated the procedure well and I performed the procedure myself. Findings: Nasal Cavity: no masses or lesions, pink mucosa; severe clear mucous stranding and edema Nasopharynx: no masses or lesions, pink mucosa Oropharynx: no masses or lesions, base of tongue clear of lesions; severe cobblestoning circumferentially Supraglottis: no masses or lesions Piriforms: there is no pooling of secretions in the piriform sinuses Subglottis: visualized subglottis is broadly patent Stroboscopy: Supraglottic effort: Normal Arytenoid symmetry: L=R Arytenoid position: Normal Amplitude: Normal Glottic closure: Complete Periodicity: Regular Mucosal wave: Normal with 30-50% lateral travel Phase symmetry: Symmetric Vocal folds: Bilateral vocal fold leukoplakia and edema Vocal fold mobility: Intact bilaterally Interarytenoid pachydermia Procedure: Binocular otomicroscopy (CPT 41133) Performed by: She Treadwell MD Pre-procedure diagnosis: hearing loss, otalgia, and eustachian tube dysfunction Post-procedure diagnosis: Same Description: After obtaining verbal informed consent, the patient was positioned seated upright. The binocular microscope and a disposable otic speculum were used to examine the bilateral ears. The findings are as described below. The speculum was removed. The patient tolerated the procedure well and I performed the procedure myself. Findings: LEFT ear canal patent, tympanic membrane mildly retracted, pearly fregoso, and without effusion RIGHT ear canal patent, tympanic membrane midposition, pearly fregoso, and without effusion [facility] 08-01-2024 Procedure note Associated Ord er(s): CO BINOCULAR MICROSCOPY SEPARATE DX PROCEDURE; CO LARYNGOSCOPY FLX/RGD TELESCOPIC W/STROBOSCOPY Procedure: Flexible fiberoptic videostroboscopy (CPT 39495) Performed by: She Treadwell MD Pre-procedure diagnosis: Dysphonia Post-procedure diagnosis: Same Description: After obtaining informed consent, the patient was positioned seated upright. The flexible fiberoptic scope was passed atraumatically through the nasal cavity and nasopharynx to obtain a view of the larynx. Videostroboscopy was performed. The findings are as described below. The flexible scope was removed. The patient tolerated the procedure well and I performed the procedure myself. Findings: Nasal Cavity: no masses or lesions, pink mucosa; severe clear mucous stranding and edema Nasopharynx: no masses or lesions, pink mucosa Oropharynx: no masses or lesions, base of tongue clear of lesions; severe cobblestoning circumferentially Supraglottis: no masses or lesions Piriforms: there is no pooling of secretions in the piriform sinuses Subglottis: visualized subglottis is broadly patent Stroboscopy: Supraglottic effort: Normal Arytenoid symmetry: L=R Arytenoid position: Normal Amplitude: Normal Glottic closure: Complete Periodicity: Regular Mucosal wave: Normal with 30-50% lateral travel Phase symmetry: Symmetric Vocal folds: Bilateral vocal fold leukoplakia and edema Vocal fold mobility: Intact bilaterally Interarytenoid pachydermia Procedure: Binocular otomicroscopy (CPT 02952) Performed by: She Treadwell MD Pre-procedure diagnosis: hearing loss, otalgia, and eustachian tube dysfunction Post-procedure diagnosis: Same Description: After obtaining verbal informed consent, the patient was positioned seated upright. The binocular microscope and a disposable otic speculum were used to examine the bilateral ears. The findings are as described below. The speculum was removed. The patient tolerated the procedure well and I performed the procedure myself. Findings: LEFT ear canal patent, tympanic membrane mildly retracted, pearly fregoso, and without effusion RIGHT ear canal patent, tympanic membrane midposition, pearly fregoso, and without effusion documented in this encounter [facility] 07-21-2024 History of Present illness Narrative Patient presenting to [facility] as new patient with Ant Hodge CNP No current PCP Last seen 04/23/2024 Moreno Bradley MD History Patient presents with: Chest Pain: PT is staying at a drug rehab ([facility]). Pt states that she started to experience chest pain and believes it might have been her anxiety as it went away when she was in the squad. Pt takes a daily blood thinner and aspirin due to PAD and previous DVTs. Pt given an aspirin by squ as well. Patient comes in from [facility] drug rehab facility. She had felt her heart rate going up and some chest pain. She has a history anxiety and she is there for methamphetamine and other substance abuse. That included some alcohol and marijuana. She is on a blood thinner due to blood clots and is compliant with her Xarelto. She has not had blood clots on the Xarelto. She is taking all of her other medicines. She herself admits that it could be anxiety. She may have also gotten little dry with the heat but otherwise healthy. No known heart disease. No falls or trauma. Patient is nontoxic-appearing here. She does appear slightly anxious at bedside but again does have a history of substance abuse. Patient is nontoxic-appearing and resting comfortably. No tearing sensation to the back. She actually said it is much better than what it was earlier and did resolve in the department. 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 02/15 with of mother Severe episode of recurrent major depressive disorder, without psychotic features (HCC) Kendra Padilla Suicidal ideation PAST SURGICAL HISTORY Procedure Laterality Date ABDOMINAL SURGERY HX BREAST SURGERY HX BX OF BREAST; INCISIONAL Left 08/29/2019 [place] [facility]- Benign COLONOSCOPY 09/22/2022 COLONOSCOPY FLX DX W/COLLJ SPEC WHEN PFRMD 12/01/2019 Colonoscopy PAST SURGICAL HISTORY OF 03/2010 gall bladder removed PAST SURGICAL HISTORY OF Left wrist surgery when she was 15 years old PAST SURGICAL HISTORY OF 2013 tubal ligation PAST SURGICAL HISTORY OF 02/2022 bilateral cyst removed, [place] ALLERGIES Allergen Reactions Cephalexin Hives, Diarrhea Fenofibrate Other: See Comments Hives with GI upset (emesis) Zoloft [Sertraline * Hives, Diarrhea Zyprexa [Olanzapine] Mental Status Change, Hives Clindamycin Hives States has take since with no issue 08/06/20. Elba Broussard MA Review of Systems Constitutional: Negative for activity change, chills, diaphoresis and fever. HENT: Negative for congestion, facial swelling, sore throat and trouble swallowing. Eyes: Negative for photophobia, pain, discharge and visual disturbance. Respiratory: Positive for chest tightness. Negative for cough, shortness of breath and wheezing. Cardiovascular: Negative for chest pain, palpitations and leg swelling. Gastrointestinal: Negative for abdominal distention, abdominal pain, blood in stool, diarrhea, nausea and vomiting. Genitourinary: Negative for difficulty urinating, flank pain and frequency. Musculoskeletal: Negative for arthralgias, back pain, joint swelling, myalgias, neck pain and neck stiffness. Skin: Negative for color change and rash. Allergic/Immunologic: Negative for immunocompromised state. Neurological: Negative for dizziness, syncope, weakness and headaches. Hematological: Does not bruise/bleed easily. Psychiatric/Behavioral: Negative for behavioral problems, confusion, hallucinations and suicidal ideas. The patient is nervous/anxious. In rehab for substance abuse All other systems reviewed and are negative. Physical Exam Vitals [04/23/24 1510] BP Pulse Temp Temp src Resp SpO2 Weight Height 131/80 (!) 114 37.2 C (98.9 F) -- 14 95 % 96.4 kg (212 lb 8.4 oz) -- Diagnostic Testing ED Labs Ordered and Reviewed COMPLETE BLOOD COUNT AND DIFFERENTIAL - Abnormal; Notable for the following components: Result Value Ref Range WBC 12.80 (*) 3.70 - 11.00 k/uL RDW-CV 15.1 (*) 11.5 - 15.0 % Abs Neut 7.52 (*) 1.45 - 7.50 k/uL Abs Lymph 4.04 (*) 1.00 - 4.00 k/uL Abs Bethel 0.97 (*) <0.87 k/uL All other components within normal limits COMPREHENSIVE METABOLIC PANEL - Abnormal; Notable for the following components: Glucose 129 (*) 70 - 100 mg/dL Potassium 3.4 (*) 3.5 - 5.1 mmol/L Chloride 109 (*) 98 - 107 mmol/L All other components within normal limits HIGH SENSITIVITY TROPONIN I - Normal MAGNESIUM - Normal HIGH SENSITIVITY TROPONIN I - Normal LIPASE - Normal Results for orders placed or performed during the hospital encounter of 04/23/24 COMPLETE BLOOD COUNT AND DIFFERENTIAL Result Value Ref Range WBC 12.80 (H) 3.70 - 11.00 k/uL RBC 5.15 3.90 - 5.20 m/uL Hemoglobin 14.3 11.5 - 15.5 g/dL Hematocrit 43.0 36.0 - 46.0 % MCV 83.5 80.0 - 100.0 fL MCH 27.8 26.0 - 34.0 pg MCHC 33.3 30.5 - 36.0 g/dL RDW-CV 15.1 (H) 11.5 - 15.0 % Platelet Count 367 150 - 400 k/uL MPV 9.4 9.0 - 12.7 fL Neutrophils % 58.6 % Abs Neut 7.52 (H) 1.45 - 7.50 k/uL Lymphocytes % 31.6 % Abs Lymph 4.04 (H) 1.00 - 4.00 k/uL Monocytes % 7.6 % Abs Bethel 0.97 (H) <0.87 k/uL Eosinophils % 0.9 % Abs Eosin 0.11 <0.46 k/uL Basophils % 0.8 % Abs Baso 0.10 <0.11 k/uL Immature Granulocytes % 0.5 % Abs Immature Gran 0.06 <0.10 k/uL NRBC 0.0 /100 WBC Absolute nRBC <0.01 <0.01 k/uL Diff Type Auto COMPREHENSIVE METABOLIC PANEL Result Value Ref Range Protein, Total 6.9 6.0 - 8.5 g/dL Albumin 3.3 3.2 - 5.0 g/dL Calcium, Total 8.8 8.5 - 10.5 mg/dL Bilirubin, Total 0.4 0.2 - 1.0 mg/dL Alkaline Phosphatase 94 45 - 117 U/L AST 19 8 - 34 U/L ALT 25 13 - 61 U/L Glucose 129 (H) 70 - 100 mg/dL BUN 14 7 - 26 mg/dL Creatinine 0.70 0.51 - 0.95 mg/dL Sodium 139 136 - 145 mmol/L Potassium 3.4 (L) 3.5 - 5.1 mmol/L Chloride 109 (H) 98 - 107 mmol/L CO2 25 21 - 32 mmol/L Anion Gap 5 5 - 16 mmol/L Estimated Glomerular Filtration Rate 106 >=60 mL/min/1.73m HIGH SENSITIVITY TROPONIN I Result Value Ref Range Troponin I High Sensitivty 8.7 0.0 - 34.0 pg/mL MAGNESIUM Result Value Ref Range Magnesium 1.9 1.6 - 2.6 mg/dL HIGH SENSITIVITY TROPONIN I Result Value Ref Range Troponin I High Sensitivty 7.5 0.0 - 34.0 pg/mL LIPASE Result Value Ref Range Lipase 24 12 - 60 U/L XR CHEST 1V FRONTAL PORT Final Result IMPRESSION: No acute cardiopulmonary disease ED Course / Clinical Impression Clinical Impressions as of 04/23/241951 Nonspecific chest pain Anxiety History of substance abuse (HCC) Patient here is nontoxic-appearing. She is compliant on her Xarelto setting pulmonary embolus we much less likely and her symptoms are vastly improved and then resolved here. She herself thinks it is anxiety that got that and the fact she is recovering from her methamphetamine use but also other substances. She was observed for multiple hours and is done well. I did her EKG as well as serial troponins lab work nitrites blood counts and she has been stable throughout. She also received some IV fluids and some Protonix ordered and she did well. EKG here look good. There was some sinus tachycardia which was trending in an improved direction. She got tired of her monitor leads to pull those off and initially wanted her IV out but was agreeable to having it finished. Serial troponins are normal. Magnesium is normal. Lipase is normal. Potassium was 3.4 other electrolytes are reasonable. White count was minimally elevated 12.8 but no bandemia. Hemoglobin and platelets are good and patient did not have a fever here and denied fever at the facility. EKG here looks fine. Chest x-ray here was negative. At this point patient be discharged back to facility. She wants to go. She unhooked herself from the monitor and wanted us to arrange transportation back. I think she can go back to her facility. I advised her to drink plenty fluids and stay hydrated. Patient will be discharged at this time Diagnosis at this time: Nonspecific chest pain; anxiety; history of substance abuse History and Record Review Clinical information obtained from an independent historian. History obtained from or confirmed by: EMS personnel. External record(s) reviewed: prior inpatient record. Findings from review of inpatient records: No recent elevated troponins Differential Diagnoses - Nonseptic chest pain without ST elevation VT is more likely for the following reason(s): suggested by H&P, consistent with imaging and consistent with laboratory studies - Anxiety is more likely for the following reason(s): Patient herself feels this is the cause, suggested by H&P, consistent with laboratory studies and consistent with imaging - PE Less likely because: patient taking oral anticoagulants - Pneumothorax Less likely because: CXR without PTX Additional complaint based differentials considered: pulmonary embolism, pneumothorax Management I performed an independent interpretation of the following:telemetry Telemetry: My interpretation is Monitor strip interpreted by myself shows acute sinus tachycardia 190 beats a minute without any ectopy Radiology Reports XR CHEST 1V FRONTAL PORT Final Result IMPRESSION: No acute cardiopulmonary disease Insulation Batting Machine Operator: MAGGI Transcribe Date/Time: Apr 23 2024 4:13P All Labs ED Labs Ordered and Reviewed COMPLETE BLOOD COUNT AND DIFFERENTIAL - Abnormal Result Value WBC 12.80 (*) RBC 5.15 Hemoglobin 14.3 Hematocrit 43.0 MCV 83.5 MCH 27.8 MCHC 33.3 RDW-CV 15.1 (*) Platelet Count 367 MPV 9.4 Neutrophils % 58.6 Abs Neut 7.52 (*) Lymphocytes % 31.6 Abs Lymph 4.04 (*) Monocytes % 7.6 Abs Bethel 0.97 (*) Eosinophils % 0.9 Abs Eosin 0.11 Basophils % 0.8 Abs Baso 0.10 Immature Granulocytes % 0.5 Abs Immature Gran 0.06 NRBC 0.0 Absolute nRBC <0.01 Diff Type Auto COMPREHENSIVE METABOLIC PANEL - Abnormal Protein, Total 6.9 Albumin 3.3 Calcium, Total 8.8 Bilirubin, Total 0.4 Alkaline Phosphatase 94 AST 19 ALT 25 Glucose 129 (*) BUN 14 Creatinine 0.70 Sodium 139 Potassium 3.4 (*) Chloride 109 (*) CO2 25 Anion Gap 5 Estimated Glomerular Filtration Rate 106 HIGH SENSITIVITY TROPONIN I - Normal Troponin I High Sensitivty 8.7 MAGNESIUM - Normal Magnesium 1.9 HIGH SENSITIVITY TROPONIN I - Normal Troponin I High Sensitivty 7.5 LIPASE - Normal Lipase 24 Meds Given During Visit ED Medication Administration from 04/23/2024 1508 to 04/23/2024 1951 Date/Time Order Dose Route Action 04/23/2024 1837 EDT NaCl 0.9% 1,000 mL iv bolus 1,000 mL INTRAVENOUS New Bag/Syringe/Bottle 04/23/2024 1937 EDT NaCl 0.9% 1,000 mL iv bolus 0 mL INTRAVENOUS Infusion Complete 04/23/2024 1800 EDT pantoprazole 40 mg injection (PROTONIX) 40 mg INTRAVENOUS Not Given Additional Tests or Interventions Additional tests/procedures: IV fluids and ECG EKG INTERPRETATION: Ordered and Reviewed Rhythm: Sinus tachycardia Rate: 119 Crucible: Left axis deviation Intervals: Normal CO interval QRS Complex: Normal ST Segment: Normal ST-T segments QT Interval: Normal Compared with Prior: None available Interpretation performed by Moreno Bradley MD IV fluids were given for the following reasons hydration/inablility to tolerate PO. Disposition The patient was discharged. Today Patient presenting to establish as new patient Anxiety and depression : PHQ-9 and REINA -7 ? Completed and charted Back pain of 10 with rest and movement problem for years Bilateral leg pain 10 with rest and movement problem for years New Patient Visit Vinod Ann [id number] 1975 07/21/2024 Chief Complaint Patient presents with Establish Care Patient presenting to [facility] as new patient with Ant Hodge History of Present Illness: Vinod nAn is a 49 y.o. female presenting for an evaluation of [facility] Previous PCP: Patient was hospitalized from 12/13/2023 through 12/19/2023 discharge diagnoses included general weakness cellulitis embolism of right iliac artery tibial arterial occlusion left and right Hospital Course: Patient Vinod Ann is a 48 y.o. presented with General weakness [R53.1] History of substance abuse (HCC) [F19.11] Mental health problem [F48.9] Cellulitis, unspecified cellulitis site [L03.90] Ms. Vinod Ann, a 48 y.o. year old female who has a past medical history of Alcohol abuse, Breast abscess, and Drug abuse (HCC). presents with Abscess (Reports vaginal abscess. Reports hx of them in the past and has to have it drained, generalized weakness, over past week, followed by vascular surgery for PVD and discoloration of her rt toes, and started on xarelto, not able to take care of herself. No nausea or vomiting no chest pain or SOB no double vision or limb weakness. Has hx/o drug abuse and also concern of abscess to the groin. Admitted to the hospital for further care. Patient has RLE embolic ischemic foot pain, Right common iliac thrombus, and generalized weakness, Podiatry and vascular on board, no acute intervention, conservative management, Continue cilatazole and Asprin, Continue anticoagulation. Cardiology consulted to find source of emboli, TTE/STEPHANIE unremarkable. Blood cultures negative, elevated inflammatory markers. Patient unable to sleep at night due to the pain, lower extremity, trial of gabapentin with improvement, to continue on discharge. No A-fib on telemetry, patient to have Zio patch on discharge. Fungal vaginitis, continue miconazole vaginal cream. Patient has chronic breast wounds bilaterally for the last several years, ID consulted, patient will complete a total of 7 days of Augmentin oral, and follow-up with breast surgeon outpatient to rule out malignancy. Patient stable for discharge. Patient did follow-up with vascular surgery on 02/19/2024 ASSESSMENT / PLAN: PAD (peripheral artery disease) ([facility]) [[id number]] Vinod was seen today for new patient, to establish relationship. Diagnoses and all orders for this visit: PAD (peripheral artery disease) ([facility]) - VASCULAR VENOUS DUPLEX SCAN - VASCULAR PERIPHERAL ARTERIAL SCAN - VASCULAR SEGMENTAL PRESSURE Other orders - [id number] It is unclear if she followed up and had duplex and arterial scans done Patient did have sleep medicine consult on 02/26/2024 IMPRESSION/PLAN: G47.33 RERE (obstructive sleep apnea) (primary encounter diagnosis) Patient is a 49 year old woman with high pretest probability for RERE who will benefit from testing. She also has several other social needs that perhaps will be significant barriers for treatment adherence however she would like to give it a try because she is sleepy during the day and she wants to remain healthy for her grandchildren. Pathophysiology, risks, and complications of untreated sleep apnea were discussed, including the potential long-term metabolic, neurocognitive, and cardiovascular implications. Sleep testing was discussed with the patient and she agrees with the split polysomnogram. All questions were answered. -Split polysomnogram -Follow up 2 weeks after to review results. Aimee Kern MD. Today: Recently discharged from rehabilitation facility (inpatient) methamphetamines, marijuana, and alcohol. Patient states she is living in a sober house at this time and participating in outpatient rehabilitation Prior to rehab alcohol 25 years and meth 10 years Was referred to [facility] rehab here in [place] for out patient treatment. PAD: She did not make follow up appointment with vascular surgery due to rehab She continues to smoke, uses nicotine patch occasionally. Decreased from 2.5 packs per day to 1 pack a day. 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 It was recommended the patient have on surgical procedure to remove the lesion for biopsy she was scheduled to see anesthesiology for preoperative appointment on 07/17/2024 patient canceled and rescheduled Patient complains of redness pain and swelling to left inner breast states she has no idea how long it has been there warm to touch Patient also complains of thrush redness and white film on tongue History: Past Medical History: Diagnosis Date Diabetes mellitus dorder line Essential hypertension, benign Hyperlipidemia PAD (peripheral artery disease) Past Surgical History: Procedure Laterality Date CHOLECYSTECTOMY LAPAROSCOPIC HAND SURGERY Right I&D ABSCESS Left breast LEEP PROCEDURE History reviewed. No pertinent family history. Social History Socioeconomic History Marital status: Single Tobacco Use Smoking status: Every Day Current packs/day: 2.00 Average packs/day: 2.0 packs/day for 35.7 years (71.4 ttl pk-yrs) Types: Cigarettes Start date: 1988 Smokeless tobacco: Never Vaping Use Vaping status: Some Days Substances: Nicotine Devices: Disposable Substance and Sexual Activity Alcohol use: Not Currently Drug use: Not Currently Sexual activity: Not Currently control/protection: Menopause Social Determinants of Health Food Insecurity: Food Insecurity Present (12/14/2023) Received from [facility] Hunger Vital Sign Worried About Running Out of Food in the Last Year: Sometimes true Ran Out of Food in the Last Year: Sometimes true Transportation Needs: Unmet Transportation Needs (12/14/2023) Received from [facility] PRAPARE - Transportation Lack of Transportation (Medical): Yes Lack of Transportation (Non-Medical): Yes Social History Tobacco Use Smoking Status Every Day Current packs/day: 2.00 Average packs/day: 2.0 packs/day for 35.7 years (71.4 ttl pk-yrs) Types: Cigarettes Start date: 1988 Smokeless Tobacco Never Social History Substance and Sexual Activity Alcohol Use Not Currently Social History Substance and Sexual Activity Drug Use Not Currently Allergies: Cephalexin, Fenofibrate, Sertraline, Olanzapine, and Clindamycin Home Medications: Current Outpatient Medications: Albuterol 108 (90 Base) MCG/ACT Aero Soln inhaler, Inhale 2 puffs every 6 hours as needed., Disp: , Rfl: amLODIPine 5 MG tablet, Take 1 tablet by mouth daily., Disp: , Rfl: aripiprazole 20 MG tablet, Take 1 tablet by mouth once., Disp: , Rfl: Aspirin 81 MG capsule, Take 81 mg by mouth daily., Disp: , Rfl: Blood Glucose Monitoring Suppl ([employer] Verio Flex System) w/Device Kit, , Disp: , Rfl: Cholecalciferol (Vitamin D3) 1.25 MG (25930 UT) capsule, Take 1 capsule by mouth once a week., Disp: , Rfl: Cilostazol 100 MG tablet, Take 1 tablet by mouth 2 times daily., Disp: , Rfl: cloNIDine 0.1 MG tablet, Take 1 tablet by mouth daily., Disp: , Rfl: Drug [place] Unilet Lancets 33G [facility], , Disp: , Rfl: Ergocalciferol 1.25 MG (94865 UT) capsule, Take 1 capsule by mouth once a week., Disp: , Rfl: fluticasone 50 MCG/ACT Suspension nasal spray, 2 sprays by Nasal route daily., Disp: , Rfl: Folic acid 1 MG tablet, Take 1 tablet by mouth daily., Disp: , Rfl: Loratadine 10 MG tablet, Take 1 tablet by mouth daily., Disp: , Rfl: Melatonin (Melatonin Maximum Strength) 5 MG tablet, Take 1 tablet by mouth at bedtime., Disp: , Rfl: mirtazapine 45 MG tablet, Take 1 tablet by mouth every evening at 6 PM., Disp: 30 tablet, Rfl: 2 Nicotine 21 MG/24HR Patch 24 HR patch, Place 1 patch on skin every 24 hours., Disp: , Rfl: omeprazole [address] capsule, Take 1 capsule by mouth daily., Disp: , Rfl: OneTouch Verio Strip strip, by In Vitro route before meals & at bedtime as needed for Other., Disp: , Rfl: oxyBUTYnin 15 MG Tab SR 24 HR, Take 1 tablet by mouth daily., Disp: 30 tablet, Rfl: 2 Prazosin 2 MG capsule, Take 1 capsule by mouth at bedtime., Disp: 30 capsule, Rfl: 2 Rosuvastatin 10 MG tablet, Take 1 tablet by mouth daily., Disp: , Rfl: Xarelto 20 MG tablet, Take 1 tablet by mouth daily with dinner., Disp: , Rfl: doxycycline hyclate 100 MG capsule, Take 1 capsule by mouth 2 times daily for 7 days., Disp: 14 capsule, Rfl: 0 Nystatin [id number] UNIT/ML oral suspension, Swish and spit 5 mL 4 times daily for 7 days., Disp: 140 mL, Rfl: 0 ROS: Review of Systems Constitutional: Negative for activity change, appetite change, fatigue and fever. HENT: Coating to tongue; soreness to tongue Respiratory: Negative for chest tightness and shortness of breath. Cardiovascular: Negative for chest pain, palpitations and leg swelling. Gastrointestinal: Negative for diarrhea, nausea and vomiting. Genitourinary: Negative for difficulty urinating. Urinary incontinence Musculoskeletal: Negative for arthralgias and myalgias. Skin: Positive for rash and wound. Neurological: Negative for dizziness, light-headedness and headaches. Psychiatric/Behavioral: Positive for sleep disturbance. Negative for dysphoric mood. The patient is nervous/anxious and is hyperactive. Physical Examination: Vital Signs: BP 140/82 Pulse 118 Temp 98.3 F (36.8 C) Resp 18 Ht 1.651 m (5' 5) Wt 104.3 kg (229 lb 14.4 oz) SpO2 96% BMI 38.26 kg/m Smoking Status Every Day Patient presenting to establish as new patient with Ant Hodge CNP No current PCP Last seen 04/23/2024 Moreno Bradley MD History Patient presents with: Chest Pain: PT is staying at a drug rehab ([facility]). Pt states that she started to experience chest pain and believes it might have been her anxiety as it went away when she was in the squad. Pt takes a daily blood thinner and aspirin due to PAD and previous DVTs. Pt given an aspirin by squad as well. Patient comes in from [facility] drug rehab facility. She had felt her heart rate going up and some chest pain. She has a history anxiety and she is there for methamphetamine and other substance abuse. That included some alcohol and marijuana. She is on a blood thinner due to blood clots and is compliant with her Xarelto. She has not had blood clots on the Xarelto. She is taking all of her other medicines. She herself admits that it could be anxiety. She may have also gotten little dry with the heat but otherwise healthy. No known heart disease. No falls or trauma. Patient is nontoxic-appearing here. She does appear slightly anxious at bedside but again does have a history of substance abuse. Patient is nontoxic-appearing and resting comfortably. No tearing sensation to the back. She actually said it is much better than what it was earlier and did resolve in the department. 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 02/15 with of mother Severe episode of recurrent major depressive disorder, without psychotic features (HCC) Kendra Padilla Suicidal ideation PAST SURGICAL HISTORY Procedure Laterality Date ABDOMINAL SURGERY HX BREAST SURGERY HX BX OF BREAST; INCISIONAL Left 08/29/2019 [facility]- Benign COLONOSCOPY 09/22/2022 COLONOSCOPY FLX DX W/COLLJ SPEC WHEN PFRMD 12/01/2019 Colonoscopy PAST SURGICAL HISTORY OF 03/2010 gall bladder removed PAST SURGICAL HISTORY OF Left wrist surgery when she was 15 years old PAST SURGICAL HISTORY OF 2014 tubal ligation PAST SURGICAL HISTORY OF 02/2022 bilateral cyst removed, [place] ALLERGIES Allergen Reactions Cephalexin Hives, Diarrhea Fenofibrate Other: See Comments Hives with GI upset (emesis) Zoloft [Sertraline * Hives, Diarrhea Zyprexa [Olanzapine] Mental Status Change, Hives Clindamycin Hives States has take since with no issue 08/06/20. Elba Broussard MA Review of Systems Constitutional: Negative for activity change, chills, diaphoresis and fever. HENT: Negative for congestion, facial swelling, sore throat and trouble swallowing. Eyes: Negative for photophobia, pain, discharge and visual disturbance. Respiratory: Positive for chest tightness. Negative for cough, shortness of breath and wheezing. Cardiovascular: Negative for chest pain, palpitations and leg swelling. Gastrointestinal: Negative for abdominal distention, abdominal pain, blood in stool, diarrhea, nausea and vomiting. Genitourinary: Negative for difficulty urinating, flank pain and frequency. Musculoskeletal: Negative for arthralgias, back pain, joint swelling, myalgias, neck pain and neck stiffness. Skin: Negative for color change and rash. Allergic/Immunologic: Negative for immunocompromised state. Neurological: Negative for dizziness, syncope, weakness and headaches. Hematological: Does not bruise/bleed easily. Psychiatric/Behavioral: Negative for behavioral problems, confusion, hallucinations and suicidal ideas. The patient is nervous/anxious. In rehab for substance abuse All other systems reviewed and are negative. Physical Exam Vitals [04/23/24 1510] BP Pulse Temp Temp src Resp SpO2 Weight Height 131/80 (!) 114 37.2 C (98.9 F) -- 14 95 % 96.4 kg (212 lb 8.4 oz) -- Diagnostic Testing ED Labs Ordered and Reviewed COMPLETE BLOOD COUNT AND DIFFERENTIAL - Abnormal; Notable for the following components: Result Value Ref Range WBC 12.80 (*) 3.70 - 11.00 k/uL RDW-CV 15.1 (*) 11.5 - 15.0 % Abs Neut 7.52 (*) 1.45 - 7.50 k/uL Abs Lymph 4.04 (*) 1.00 - 4.00 k/uL Abs Bethel 0.97 (*) <0.87 k/uL All other components within normal limits COMPREHENSIVE METABOLIC PANEL - Abnormal; Notable for the following components: Glucose 129 (*) 70 - 100 mg/dL Potassium 3.4 (*) 3.5 - 5.1 mmol/L Chloride 109 (*) 98 - 107 mmol/L All other components within normal limits HIGH SENSITIVITY TROPONIN I - Normal MAGNESIUM - Normal HIGH SENSITIVITY TROPONIN I - Normal LIPASE - Normal Results for orders placed or performed during the hospital encounter of 04/23/24 COMPLETE BLOOD COUNT AND DIFFERENTIAL Result Value Ref Range WBC 12.80 (H) 3.70 - 11.00 k/uL RBC 5.15 3.90 - 5.20 m/uL Hemoglobin 14.3 11.5 - 15.5 g/dL Hematocrit 43.0 36.0 - 46.0 % MCV 83.5 80.0 - 100.0 fL MCH 27.8 26.0 - 34.0 pg MCHC 33.3 30.5 - 36.0 g/dL RDW-CV 15.1 (H) 11.5 - 15.0 % Platelet Count 367 150 - 400 k/uL MPV 9.4 9.0 - 12.7 fL Neutrophils % 58.6 % Abs Neut 7.52 (H) 1.45 - 7.50 k/uL Lymphocytes % 31.6 % Abs Lymph 4.04 (H) 1.00 - 4.00 k/uL Monocytes % 7.6 % Abs Bethel 0.97 (H) <0.87 k/uL Eosinophils % 0.9 % Abs Eosin 0.11 <0.46 k/uL Basophils % 0.8 % Abs Baso 0.10 <0.11 k/uL Immature Granulocytes % 0.5 % Abs Immature Gran 0.06 <0.10 k/uL NRBC 0.0 /100 WBC Absolute nRBC <0.01 <0.01 k/uL Diff Type Auto COMPREHENSIVE METABOLIC PANEL Result Value Ref Range Protein, Total 6.9 6.0 - 8.5 g/dL Albumin 3.3 3.2 - 5.0 g/dL Calcium, Total 8.8 8.5 - 10.5 mg/dL Bilirubin, Total 0.4 0.2 - 1.0 mg/dL Alkaline Phosphatase 94 45 - 117 U/L AST 19 8 - 34 U/L ALT 25 13 - 61 U/L Glucose 129 (H) 70 - 100 mg/dL BUN 14 7 - 26 mg/dL Creatinine 0.70 0.51 - 0.95 mg/dL Sodium 139 136 - 145 mmol/L Potassium 3.4 (L) 3.5 - 5.1 mmol/L Chloride 109 (H) 98 - 107 mmol/L CO2 25 21 - 32 mmol/L Anion Gap 5 5 - 16 mmol/L Estimated Glomerular Filtration Rate 106 >=60 mL/min/1.73m HIGH SENSITIVITY TROPONIN I Result Value Ref Range Troponin I High Sensitivty 8.7 0.0 - 34.0 pg/mL MAGNESIUM Result Value Ref Range Magnesium 1.9 1.6 - 2.6 mg/dL HIGH SENSITIVITY TROPONIN I Result Value Ref Range Troponin I High Sensitivty 7.5 0.0 - 34.0 pg/mL LIPASE Result Value Ref Range Lipase 24 12 - 60 U/L XR CHEST 1V FRONTAL PORT Final Result IMPRESSION: No acute cardiopulmonary disease ED Course / Clinical Impression Clinical Impressions as of 04/23/241951 Nonspecific chest pain Anxiety History of substance abuse (HCC) Patient here is nontoxic-appearing. She is compliant on her Xarelto setting pulmonary embolus we much less likely and her symptoms are vastly improved and then resolved here. She herself thinks it is anxiety that got that and the fact she is recovering from her methamphetamine use but also other substances. She was observed for multiple hours and is done well. I did her EKG as well as serial troponins lab work nitrites blood counts and she has been stable throughout. She also received some IV fluids and some Protonix ordered and she did well. EKG here look good. There was some sinus tachycardia which was trending in an improved direction. She got tired of her monitor leads to pull those off and initially wanted her IV out but was agreeable to having it finished. Serial troponins are normal. Magnesium is normal. Lipase is normal. Potassium was 3.4 other electrolytes are reasonable. White count was minimally elevated 12.8 but no bandemia. Hemoglobin and platelets are good and patient did not have a fever here and denied fever at the facility. EKG here looks fine. Chest x-ray here was negative. At this point patient be discharged back to facility. She wants to go. She unhooked herself from the monitor and wanted us to arrange transportation back. I think she can go back to her facility. I advised her to drink plenty fluids and stay hydrated. Patient will be discharged at this time Diagnosis at this time: Nonspecific chest pain; anxiety; history of substance abuse History and Record Review Clinical information obtained from an independent historian. History obtained from or confirmed by: EMS personnel. External record(s) reviewed: prior inpatient record. Findings from review of inpatient records: No recent elevated troponins Differential Diagnoses - Nonseptic chest pain without ST elevation VT is more likely for the following reason(s): suggested by H&P, consistent with imaging and consistent with laboratory studies - Anxiety is more likely for the following reason(s): Patient herself feels this is the cause, suggested by H&P, consistent with laboratory studies and consistent with imaging - PE Less likely because: patient taking oral anticoagulants - Pneumothorax Less likely because: CXR without PTX Additional complaint based differentials considered: pulmonary embolism, pneumothorax Management I performed an independent interpretation of the following:telemetry Telemetry: My interpretation is Monitor strip interpreted by myself shows acute sinus tachycardia 190 beats a minute without any ectopy Radiology Reports XR CHEST 1V FRONTAL PORT Final Result IMPRESSION: No acute cardiopulmonary disease Insulation Batting Machine Operator: MAGGI Transcribe Date/Time: Apr 23 2024 4:13P All Labs ED Labs Ordered and Reviewed COMPLETE BLOOD COUNT AND DIFFERENTIAL - Abnormal Result Value WBC 12.80 (*) RBC 5.15 Hemoglobin 14.3 Hematocrit 43.0 MCV 83.5 MCH 27.8 MCHC 33.3 RDW-CV 15.1 (*) Platelet Count 367 MPV 9.4 Neutrophils % 58.6 Abs Neut 7.52 (*) Lymphocytes % 31.6 Abs Lymph 4.04 (*) Monocytes % 7.6 Abs Bethel 0.97 (*) Eosinophils % 0.9 Abs Eosin 0.11 Basophils % 0.8 Abs Baso 0.10 Immature Granulocytes % 0.5 Abs Immature Gran 0.06 NRBC 0.0 Absolute nRBC <0.01 Diff Type Auto COMPREHENSIVE METABOLIC PANEL - Abnormal Protein, Total 6.9 Albumin 3.3 Calcium, Total 8.8 Bilirubin, Total 0.4 Alkaline Phosphatase 94 AST 19 ALT 25 Glucose 129 (*) BUN 14 Creatinine 0.70 Sodium 139 Potassium 3.4 (*) Chloride 109 (*) CO2 25 Anion Gap 5 Estimated Glomerular Filtration Rate 106 HIGH SENSITIVITY TROPONIN I - Normal Troponin I High Sensitivty 8.7 MAGNESIUM - Normal Magnesium 1.9 HIGH SENSITIVITY TROPONIN I - Normal Troponin I High Sensitivty 7.5 LIPASE - Normal Lipase 24 Meds Given During Visit ED Medication Administration from 04/23/2024 1508 to 04/23/2024 1951 Date/Time Order Dose Route Action 04/23/2024 1837 EDT NaCl 0.9% 1,000 mL iv bolus 1,000 mL INTRAVENOUS New Bag/Syringe/Bottle 04/23/2024 1937 EDT NaCl 0.9% 1,000 mL iv bolus 0 mL INTRAVENOUS Infusion Complete 04/23/2024 1800 EDT pantoprazole 40 mg injection (PROTONIX) 40 mg INTRAVENOUS Not Given Additional Tests or Interventions Additional tests/procedures: IV fluids and ECG EKG INTERPRETATION: Ordered and Reviewed Rhythm: Sinus tachycardia Rate: 119 Crucible: Left axis deviation Intervals: Normal CO interval QRS Complex: Normal ST Segment: Normal ST-T segments QT Interval: Normal Compared with Prior: None available Interpretation performed by Moreno Bradley MD IV fluids were given for the following reasons hydration/inablility to tolerate PO. Disposition The patient was discharged. Today Patient presenting to establish as new patient Anxiety and depression : PHQ-9 and REINA -7 ? Completed and charted Back pain of 10 with rest and movement problem for years Bilateral leg pain 10 with rest and movement problem for years Verified patients first and last name and 2 gold lab tubes Position Sitting Site Left AC 2x2 and coban tolerated well with no complaints Labeled lab tubes in front of patient Physical Exam Constitutional: Appearance: Normal appearance. Cardiovascular: Rate and Rhythm: Normal rate and regular rhythm. Pulmonary: Effort: Pulmonary effort is normal. Breath sounds: Normal breath sounds. Musculoskeletal: General: Normal range of motion. Skin: General: Skin is warm and dry. Neurological: Mental Status: She is alert and oriented to person, place, and time. Gait: Gait is intact. Comments: Involuntary tongue thrusting Psychiatric: Attention and Perception: She is inattentive. Mood and Affect: Mood is anxious. Behavior: Behavior normal. Behavior is cooperative. Thought Content: Thought content is not paranoid. Thought content does not include homicidal ideation. Judgment: Judgment is impulsive. Procedure none Laboratory and Additional Data Reviewed: No results found for this or any previous visit. No images are attached to the encounter. Assessment and Plan: Vinod Ann is a 49 y.o. female that presented for evaluation of [facility] with multiple complaints. 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 and participating in outpatient drug counseling Night terror: Continue the patient on prazosin 2 mg daily at bedtime; refills sent to pharmacy Incontinence in female: Continue on oxybutynin 15 mg daily refill sent to pharmacy Vocal cord lesion: Patient is scheduled to follow-up with Anesthesiology and ENT for planned surgery this is being done at [facility] Blue toe syndrome history of peripheral arterial disease: Patient was consulted with vascular surgery she was seen however did not follow-up with arterial testing in scans that were ordered patient is stating she will need a new referral we will plan for new referral once vocal cord lesion surgery has been completed Blood work ordered We will follow-up with patient in 2 weeks due to history of multiple other chronic diseases Call the office for any questions or concerns. I did have discussion that if any medications are not covered or is not able to get the medications to call the office and let us know so other alternative/arrangements can be made. Vinod was seen today for [facility]. Diagnoses and all orders for this visit: Essential hypertension Thrush - Nystatin 333961 UNIT/ML oral suspension; Swish and spit 5 mL 4 times daily for 7 days. Cellulitis of other specified site - doxycycline hyclate 100 MG capsule; Take 1 capsule by mouth 2 times daily for 7 days. 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 Current every day smoker Alcohol abuse, in remission - FOLATE, SERUM; Future - VITAMIN B12; Future Night terror - Prazosin 2 MG capsule; Take 1 capsule by mouth at bedtime. Vitamin D deficiency - VITAMIN D (25-HYDROXY,TOTAL); Future Incontinence in female - oxyBUTYnin 15 MG Tab SR 24 HR; Take 1 tablet by mouth daily. 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 Patient did not check in for appt, called patient at 11:50 to see if they were planning on coming. Patient desires to reschedule, provided her with appt information and [facility] phone number. Thank you, Nancy Del Cid APRN.LUZ ELENA [facility] [place] [facility] Work Phone: 07-17-2024 Miscellaneous Notes Good afternoon, Patient was scheduled for in person [facility] appt at 11:40 today. Patient did not check in for appt, called patient at 11:50 to see if they were planning on coming. Patient desires to reschedule, provided her with appt information and [facility] phone number. Thank you, Nancy Del Cid APRN.CNP [facility] [place] documented in this encounter [facility] 06-16-2024 Nurse Note Tobacco Use: 2 packs/day, for 29 years. Types: Cigarettes Was smoking cessation packet given? Patient Declined Was a referral initiated?Patient declined. [facility] 06-16-2024 Nurse Note Tobacco Use: 2 packs/day, for 29 years. Types: Cigarettes Was smoking cessation packet given? Patient Declined Was a referral initiated?Patient declined. documented in this encounter [facility] 06-16-2024 Note HNO ID: [id number] Author: DANIELA ESCOBAR MD Service: ? Author Type: Fellow Type: Progress Notes Filed: 06/18/2024 08:53 Note Text: CC: The patient is seen at the request of Dr. 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 I will communicate with the referring provider via EMR . Assessment and Plan (Medical Decision Making): 49 year old female with significant smoking and substance use history presenting for evaluation of dysphonia and known true vocal fold leukoplakia. 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 There is edema bilaterally R>L as well, however, this could be more polypoid corditis in nature. Regardless, given her significant smoking history, we discussed that there is concern for malignancy and that she will require excision for therapeutic and diagnostic purposes. We discussed DML, excision, and possible KTP laser ablation. Consent was signed today. She will require anesthesia evaluation and optimization prior to surgery. Her xarelto will have to be held prior to surgery as well and will require clearance for this. Finally, she was advised to continue her PPI and that smoking cessation will be incredibly important for limiting progression. She will consider this, but does not want to quit currently. Five minutes were spent counseling the patient on the importance and benefits of smoking cessation. Need to call her Counselor Megan Livingston for [phone]. Updated HANDP completed in clinic today. Physical exam: Resp: CTA b/l, no wheezing or rhonchi Cardio: S1, S2, no murmurs, RRR HPI: Vinod Ann is a 49 year old female presenting to clinic with complaints of dysphonia. She has had dysphonia for about one year now. She notes roughness, low pitch, and low volume. This has been progressive since onset. She denies pain or leni dysphagia. She does reflux, for which she is on omeprazole 40 mg daily. 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 Last meth was apr 18. She has a prior history of alcohol abuse as well, but has not had any alcohol over a few months now. She is in rehab currently. She was previously seen by Dr. Holden on 10/19/23, at which time, he noted bilateral leukoplakia on laryngoscopy and recommended panendoscopy and biopsy. 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 REVIEW OF RADIOLOGICAL FILMS AND RECORDS: Dr. Holden's progress note 10/19/23 ALLERGIES/MEDS/MEDICAL/SURGICAL/ SOCIAL/FAMILY HISTORY: ALLERGIES Allergen Reactions Cephalexin Hives, Diarrhea Fenofibrate Other: See Comments Hives with GI upset (emesis) Zoloft [Sertraline * Hives, Diarrhea Zyprexa [Olanzapine] Mental Status Change, Hives Clindamycin Hives States has take since with no issue 08/06/20. Elba Broussard MA Current Outpatient Medications Medication Sig hydroCHLOROthiazide 25 mg tablet Take 25 mg by mouth once daily. rivaroxaban (XARELTO) 20 mg tablet Take 20 mg by mouth. rosuvastatin (CRESTOR) 10 mg tablet Take 10 mg by mouth once daily. aspirin 81 mg cap Take 81 mg by mouth once daily. melatonin 5 mg tablet Take 1 tablet by mouth as needed for insomnia. amLODIPine (NORVASC) 2.5 mg tablet Take 1 tablet by mouth once daily. famotidine (PEPCID) 20 mg tablet Take 1 tablet by mouth at bedtime as needed. acetaminophen (TYLENOL) 325 mg tablet Take 650 mg by mouth once daily. oxybutynin ER (DITROPAN XL) 10 mg 24 hr tablet Take 1 tablet by mouth once daily. ergocalciferol 50,000 unit capsule (VITAMIN D2, DRISDOL) Take 1 capsule by mouth one time a week. omeprazole (PRILOSEC) 40 mg capsule Take 1 capsule by mouth once daily. multivitamin tablet Take 1 tablet by mouth once daily. No current facility-administered medications for this visit. 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) Comment: clean since , did have small relapse 02/15 with of mother No date: Severe episode of recurrent major depressive disorder, without psychotic features ([facility]) Comment: Kendra Padilla No date: Suicidal ideation PAST SURGICAL HISTORY No date: ABDOMINAL SURGERY HX No date: BREAST SURGERY HX 08/29/2019: BX OF BREAST; INCISIONAL; Left Comment: Magan Blunt- Benign 09/22/2022: COLONOSCOPY 12/01/2019: COLONOSCOPY FLX DX W/COLLJ SPEC WHEN PFRMD Comment: Colonoscopy 03/2010: PAST SURGICAL HISTORY OF Comment: gall bladder removed No date: PAST SURGICAL (more content not included)... [facility] 06-16-2024 History of Present illness Narrative CC: The patient is seen in consultation for evaluation and management of vocal fold leukoplakia. Assessment and Plan (Medical Decision Making): 49 year old female with significant smoking and substance use history presenting for evaluation of dysphonia and known true vocal fold leukoplakia. 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 There is edema bilaterally R>L as well, however, this could be more polypoid corditis in nature. Regardless, given her significant smoking history, we discussed that there is concern for malignancy and that she will require excision for therapeutic and diagnostic purposes. We discussed DML, excision, and possible KTP laser ablation. Consent was signed today. She will require anesthesia evaluation and optimization prior to surgery. Her xarelto will have to be held prior to surgery as well and will require clearance for this. Finally, she was advised to continue her PPI and that smoking cessation will be incredibly important for limiting progression. She will consider this, but does not want to quit currently. Need to call her Counselor Megan Livingston for [phone]. Updated H&P completed in clinic today. Physical exam: Resp: CTA b/l, no wheezing or rhonchi Cardio: S1, S2, no murmurs, RRR HPI: Vinod Ann is a 49 year old female presenting to clinic with complaints of dysphonia. She has had dysphonia for about one year now. She notes roughness, low pitch, and low volume. This has been progressive since onset. She denies pain or leni dysphagia. She does reflux, for which she is on omeprazole 40 mg daily. 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 Last meth was apr 18. She has a prior history of alcohol abuse as well, but has not had any alcohol over a few months now. She is in rehab currently. She was previously seen by Dr. Holden on 10/19/23, at which time, he noted bilateral leukoplakia on laryngoscopy and recommended panendoscopy and biopsy. 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 REVIEW OF RADIOLOGICAL FILMS AND RECORDS: Dr. Holden's progress note 10/19/23 ALLERGIES/MEDS/MEDICAL/SURGICAL/ SOCIAL/FAMILY HISTORY: ALLERGIES Allergen Reactions Cephalexin Hives, Diarrhea Fenofibrate Other: See Comments Hives with GI upset (emesis) Zoloft [Sertraline * Hives, Diarrhea Zyprexa [Olanzapine] Mental Status Change, Hives Clindamycin Hives States has take since with no issue 08/06/20. Elba Broussard MA Current Outpatient Medications Medication Sig hydroCHLOROthiazide 25 mg tablet Take 25 mg by mouth once daily. rivaroxaban (XARELTO) 20 mg tablet Take 20 mg by mouth. rosuvastatin (CRESTOR) 10 mg tablet Take 10 mg by mouth once daily. aspirin 81 mg cap Take 81 mg by mouth once daily. melatonin 5 mg tablet Take 1 tablet by mouth as needed for insomnia. amLODIPine (NORVASC) 2.5 mg tablet Take 1 tablet by mouth once daily. famotidine (PEPCID) 20 mg tablet Take 1 tablet by mouth at bedtime as needed. acetaminophen (TYLENOL) 325 mg tablet Take 650 mg by mouth once daily. oxybutynin ER (DITROPAN XL) 10 mg 24 hr tablet Take 1 tablet by mouth once daily. ergocalciferol 50,000 unit capsule (VITAMIN D2, DRISDOL) Take 1 capsule by mouth one time a week. omeprazole (PRILOSEC) 40 mg capsule Take 1 capsule by mouth once daily. multivitamin tablet Take 1 tablet by mouth once daily. No current facility-administered medications for this visit. PAST MEDICAL HISTORY 11/20/2014: Anxiety state, unspecified No date: Arthritis No date: Bleeding stomach ulcer No date: Breast infection in female Comment: bilateral reoccurant No date: Delayed emergence from general anesthesia No date: GERD (gastroesophageal reflux disease) 02/2015: Hiatal hernia 11/20/2014: Obesity (BMI 30-39.9) 11/20/2014: Other and unspecified hyperlipidemia No date: Recovering alcoholic in remission ([facility]) Comment: clean since , did have small relapse 02/15 with of mother No date: Severe episode of recurrent major depressive disorder, without psychotic features ([facility]) Comment: Kendra Padilla No date: Suicidal ideation PAST SURGICAL HISTORY No date: ABDOMINAL SURGERY HX No date: BREAST SURGERY HX 08/29/2019: BX OF BREAST; INCISIONAL; Left Comment: Magan Blunt- Benign 09/22/2022: COLONOSCOPY 12/01/2019: COLONOSCOPY FLX DX W/COLLJ SPEC WHEN PFRMD Comment: Colonoscopy 03/2010: PAST SURGICAL HISTORY OF Comment: gall bladder removed No date: PAST SURGICAL HISTORY OF Comment: Left wrist surgery when she was 15 years old 2013: PAST SURGICAL HISTORY OF Comment: tubal ligation 02/2022: PAST SURGICAL HISTORY OF Comment: bilateral cyst removed, [place] Social History Tobacco Use Smoking status: Every Day Packs/day: 2.00 Years: 29.00 Additional pack years: 0.00 Total pack years: 58.00 Types: Cigarettes Smokeless tobacco: Never Vaping Use Vaping Use: Former Substances: Nicotine Substance Use Topics Alcohol use: Yes Comment: quit , small relapse in 02/15 with of mother. Family History: No family history of ENT problems ROS: Constitutional: Denies having night sweats, constant fatigue, loss of appetite, or recent substantial weight loss. Eyes: The pt denies having blurred vision or double vision. Respiratory: Denies symptoms of shortness of breath, noisy breathing. 14 point review of systems was otherwise normal except as noted in HPI. PHYSICAL EXAM: On physical examination Vinod Ann is a well-developed, well nourished female. Her conversational voice is low pitched and rough. Mental status revealed patient to be alert and oriented x 3. Mood is appropriate. Details of the physical examination: Respiratory: no stridor or SOB Cardiovascular: No clubbing, cyanosis or edema of the upper extremities CRANIAL NERVE EXAM: VII: Normal strength in all divisions. VIII: Hearing grossly normal. IX, X: low pitched, rough voice, normal palatal elevation and sensation XII: Tongue mobility normal HEAD AND FACE: Physical examination of the head, neck, external nose, external ears, mouth and face fails to demonstrate any significant abnormality or asymmetry to critical face to face observation. Skin and scalp are normal. NOSE: Anterior rhinoscopy reveals no masses. Engorgement of inferior turbinates. Examination of the nasal cavity revealed a septum which is midline MASTICATION: Dentition is poor. She has carious and chipped mandibular dentition and an edentulous maxilla. The lips and gums are without lesions. ORAL CAVITY AND OROPHARYNX: The oral mucosa, hard and soft palates, tongue, and posterior pharyngeal wall are without lesions. LARYNX: To better evaluate laryngeal biomechanics and vocal fold oscillation I performed laryngoscopy with videostroboscopy. A mirror exam was attempted but would not provide this level of laryngeal detail. NECK: On palpation, there are no masses or lymphadenopathy. The ROM is intact. PROCEDURE NOTE: Recommended Videostroboscopy. Risks, benefits and alternatives were explained. The patient wished to proceed she was reidentified and a time out obtained. PROCEDURE: Videostroboscopy PREOPERATIVE DIAGNOSIS: Leukoplakia, dysphonia POSTOPERATIVE DIAGNOSIS: Leukoplakia, dysphonia INDICATIONS: Evaluation larynx to:evaluate lesion and assess vibratory margin ANESTHESIA: Lidocaine 2% and Clarke-Synephrine % PROCEDURE: With the patient sitting upright, a flexible scope was used : Topical anesthesia and vasoconstriction was applied with spray to the right and left side(s) of the nose. After waiting an appropriate period of time for anesthesia/vasoconstriction to become effective, a flexible laryngoscope was passed through the right side(s) of the nose. Nasopharynx was normal. FINDINGS: The nasopharynx was normal without any lesions or masses visualized. No masses or lesions were visualized at the base of tongue, vallecula, epiglottis, aryepiglottic folds, pyriform sinuses, and lateral pharyngeal borjas. True vocal fold movement was intact bilaterally. Bilateral leukoplakia extending along the length of the true vocal folds bilaterally, ?anterior commissure involvement. There is edema bilaterally. Mucosal wave was noted to be reduced on the right. Amplitude was decreased bilaterally. Closure was complete with significant supraglottic compensation Phase symmetry was Absent The patient's airway was widely patent with no evidence of obstruction. Pt tolerated the procedure well, and there were no complications. Pt tolerated the procedure well, and there were no complications. The procedure was performed by Dr. Daniela Escobar. . Daniela Escobar MD Medical Decision Making: Problems: Moderate: New problem with uncertain prognosis Data: Unique test result(s) reviewed: 1 Risk: Moderate: Decision on minor surgery w/ risk factors Medical Decision Making Level: 4 - Moderate documented in this encounter [facility] 06-02-2024 Telephone encounter Note Finally talked to Eva Livingston patient's counselor, notify the breast pathology results show organized abscess and reactive node per Dr. Easton. Informed Eva that patient needs to continue follow up with her PCP. Eva verbalized understanding. [facility] Work Phone: 06-02-2024 Miscellaneous Notes Finally talked to Eva Livingston patient's counselor, notify the breast pathology results show organized abscess and reactive node per Dr. Easton. Informed Eva that patient needs to continue follow up with her PCP. Eva verbalized understanding. documented in this encounter [facility] 06-02-2024 Telephone encounter Note Multiple calls and message left with the patient regarding her breast biopsy results. Also, called and spoke to patient's sister (Eulalia) to ask that the patient to call back. Dr. Easton is aware. [facility] Work Phone: 06-02-2024 Miscellaneous Notes Multiple calls and message left with the patient regarding her breast biopsy results. Also, called and spoke to patient's sister (Eulalia) to ask that the patient to call back. Dr. Easton is aware. documented in this encounter [facility] 05-24-2024 Telephone encounter Note Patient calling with questions regarding restarting anticoagulants (Xarelto) Patient denies any new or worsening symptoms of which a provider is not aware:Yes . Conference call to [facility] to connect to breast surgeon spoon maker. [facility] 05-24-2024 Miscellaneous Notes Patient calling with questions regarding restarting anticoagulants (Xarelto) Patient denies any new or worsening symptoms of which a provider is not aware:Yes . Conference call to [facility] to connect to breast surgeon spoon maker. documented in this encounter [facility] 05-24-2024 Instructions Formatting of th is note might be different from the original. Pt given written post procedure instructions [facility] 05-24-2024 Note HNO ID: [id number] Author: KENDRA BA RT(R) Service: ? Author Type: Technologist Type: Patient Education Filed: 05/24/2024 11:22 Note Text: Pt given written post procedure instructions [facility] 05-24-2024 Miscellaneous Notes Pt given written post procedure instructions documented in this encounter [facility] 05-14-2024 Telephone encounter Note Vinod called, verified name and date of . States that she just missed a call from [facility] and wanted to know who called her and what they wanted to schedule, as she is waiting to hear about the breast biopsy and about the throat test. Advised that there was no note in her chart about anyone calling her, but I did note that there is an appointment scheduled for her breast biopsy. Gave her the number to the breast navigator nurses , , and advised that she should contact their office and verify if they were the office trying to contact her. She voiced understanding. Harjinder Keyes RN May 14, 2024 1:41 PM [facility] 05-14-2024 Miscellaneous Notes Vinod called, verified name and date of . States that she just missed a call from [facility] and wanted to know who called her and what they wanted to schedule, as she is waiting to hear about the breast biopsy and about the throat test. Advised that there was no note in her chart about anyone calling her, but I did note that there is an appointment scheduled for her breast biopsy. Gave her the number to the breast navigator nurses , , and advised that she should contact their office and verify if they were the office trying to contact her. She voiced understanding. Harjinder Keyes RN May 14, 2024 1:41 PM documented in this encounter [facility] 05-03-2024 Note HNO ID: [id number] Author: ?, ?, ? Service: ? Author Type: ? Type: Progress Notes Filed: 05/03/2024 04:54 Note Text: Your patient, Vinod Ann, could not have the sleep study you ordered due to noshow. We will call the patient and make a reasonable attempt to reschedule the sleep study. Please note, your orders will still be valid for one year. Thank you for your attention. [facility] 05-03-2024 History of Present illness Narrative Your patient, Vinod Ann, could not have the sleep study you ordered due to noshow. We will call the patient and make a reasonable attempt to reschedule the sleep study. Please note, your orders will still be valid for one year. Thank you for your attention. documented in this encounter [facility] 04-17-2024 Note HNO ID: [id number] Author: MINERVA HERNADEZ MD Service: ? Author Type: Physician Type: Progress Notes Filed: 04/17/2024 17:01 Note Text: Summary: Breast imaging review Review of outside mammogram and ultrasound dated 02/21/2024. Comparison with prior mammograms dated 01/19/2020, 03/14/2019, and 11/26/2017. Diagnostic mammogram demonstrates multiple stable circumscribed masses throughout both breasts. There is an irregular mass with associated architectural distortion and skin and nipple retraction at the 9:00 axis of the left breast. No mammographic abnormality identified in the area of the patient's clinical concern in the right breast at the 3:00 axis. Left breast ultrasound demonstrates irregular mass with spiculated margins measuring 1.3 x 0.9 x 1.1 cm at the 9:00 axis, 2 cm from the nipple, which extends into the nipple. This is partially located within the skin. This corresponds to the spiculated mass seen on the mammogram. Left axillary ultrasound demonstrates an abnormal lymph node measuring 1 x 0.6 x 0.7 cm, with complete hilar effacement. Right breast ultrasound of the patient's palpable area demonstrates an area of skin thickening, which is labeled as surgical scar at the 3:00 axis, 2 cm from the nipple. Impression: Agree with recommendation for ultrasound-guided biopsy of the mass at the 9:00 axis, 2 cm from the nipple and of the left axillary lymph node. [facility] 04-17-2024 History of Present illness Narrative Summary: Breast imaging review Review of outside mammogram and ultrasound dated 02/21/2024. Comparison with prior mammograms dated 01/19/2020, 03/14/2019, and 11/26/2017. Diagnostic mammogram demonstrates multiple stable circumscribed masses throughout both breasts. There is an irregular mass with associated architectural distortion and skin and nipple retraction at the 9:00 axis of the left breast. No mammographic abnormality identified in the area of the patient's clinical concern in the right breast at the 3:00 axis. Left breast ultrasound demonstrates irregular mass with spiculated margins measuring 1.3 x 0.9 x 1.1 cm at the 9:00 axis, 2 cm from the nipple, which extends into the nipple. This is partially located within the skin. This corresponds to the spiculated mass seen on the mammogram. Left axillary ultrasound demonstrates an abnormal lymph node measuring 1 x 0.6 x 0.7 cm, with complete hilar effacement. Right breast ultrasound of the patient's palpable area demonstrates an area of skin thickening, which is labeled as surgical scar at the 3:00 axis, 2 cm from the nipple. Impression: Agree with recommendation for ultrasound-guided biopsy of the mass at the 9:00 axis, 2 cm from the nipple and of the left axillary lymph node. documented in this encounter [place] [id number] Telephone encounter Note Per Dr. Roblero patient to have left ultrasound guided breast + left axilla biopsy. Orders are in the chart Per protocol email sent to Ramona and Kimmy to have radiologist review and call patient to schedule accordingly Per patient aware of steps needed to be done and will be called to scheduled Patient aware to reach back out to office once procedures are scheduled to set an appointment up with Dr. Watson to go over results. Patient given direct line for anything further Heaven Andino [employer] Supervisor [facility] 04-16-[address] Roblero patient to have left ultrasound guided breast + left axilla biopsy. Orders are in the chart Per protocol email sent to Melanie to have radiologist review and call patient to schedule accordingly Per patient aware of steps needed to be done and will be called to scheduled Patient aware to reach back out to office once procedures are scheduled to set an appointment up with Dr. Watson to go over results. Patient given direct line for anything further Heaven Andino [employer] Supervisor documented in this encounter [facility] 04-16-2024 Telephone encounter Note Spoke to patient, verified name and date of . Advised patient due to her not being admitted to rehab facility yet, nurse cannot call and give information. Advised patient once admitted to facility, patient can initiate the process by finding out the policy for appointments. Advised patient if she needs documentation or rehab staff would like to talk to [facility] staff, we can assist that. Patient currently has no breast biopsy scheduled. Breast biopsy is tentative after testing is done. Patient verbalized understand. Leonidas Nunez LPN April 16, 2024 11:36 AM [facility] 04-16-2024 Miscellaneous Notes Spoke to patient, verified name and date of . Advised patient due to her not being admitted to rehab facility yet, nurse cannot call and give information. Advised patient once admitted to facility, patient can initiate the process by finding out the policy for appointments. Advised patient if she needs documentation or rehab staff would like to talk to [facility] staff, we can assist that. Patient currently has no breast biopsy scheduled. Breast biopsy is tentative after testing is done. Patient verbalized understand. Leonidas Nunez LPN April 16, 2024 11:36 AM Patient called in with slurred speech and difficult to understand. States she needs to have a breast biopsy. She is currently homeless and doing drugs. She reports that she is going to [facility] treatment facility tomorrow for rehab in [place]. She is asking what can be done about the breast biopsy while she is in treatment? She wonders if she will be able to be released to come in for treatment. She is asking if someone from the office can contact [facility] and explain the situation to see how to coordinate care for her while she is in the treatment facility. [phone] documented in this encounter [facility] 04-16-2024 Telephone encounter Note Patient called in with slurred speech and difficult to understand. States she needs to have a breast biopsy. She is currently homeless and doing drugs. She reports that she is going to [facility] treatment facility tomorrow for rehab in [place]. She is asking what can be done about the breast biopsy while she is in treatment? She wonders if she will be able to be released to come in for treatment. She is asking if someone from the office can contact [facility] and explain the situation to see how to coordinate care for her while she is in the treatment facility. [phone] [facility] 04-10-2024 Telephone encounter Note Requested patients previous breast bx from [facility]. Path reports & op reports. [facility] 04-10-2024 Miscellaneous Notes Requested patients previous breast bx from [facility]. Path reports & op reports. documented in this encounter [facility] 04-10-2024 Telephone encounter Note Contacted patient, advised about antibiotic being called in to pharmacy. Faxed [facility] for medical records. Leonidas Nunez LPN April 10, 2024 8:17 AM [facility] 04-10-2024 Miscellaneous Notes Contacted patient, advised about antibiotic being called in to pharmacy. Faxed [facility] for medical records. Leonidas Nunez LPN April 10, 2024 8:17 AM Patient called requesting antibiotic due to abscess on breast being infected? Patient was seen with Osbaldo on 04/01 she states that Osbaldo knows all about it but needs Rx Can be reached at [phone] Please advise documented in this encounter [facility] 04-08-2024 Note HNO ID: [id number] Author: FRANCO ROBLERO MD Service: ? Author Type: Physician Type: Progress Notes Filed: 04/10/2024 07:21 Note Text: HISTORY AND PHYSICAL - BREAST COMPLAINT Vinod Ann 1975 REFERRING PHYSICIAN: Isatu Nieto MD CHIEF COMPLAINT: left breast infected mass with drainage suspicious for malignancy HPI: The patient is a 49 year old female with a complaint of a palpable breast mass. The patient notes a mass in the retroaerolar portion to slightly medial area of her left breast. The patient has noticed this mass for a long time. The patient had a mammogram and ultrasound obtained the the [facility] on February 21, 2024 which demonstrated: IMPRESSION: Finding 1 Masses in both breasts are benign. Finding 2 Irregular mass in the left breast at 9 o'clock, 2 cm from the nipple is suspicious. It extends into the nipple. An ultrasound guided biopsy is recommended. Finding 3 Abnormal lymph node in the left axilla is suspicious. An ultrasound guided biopsy is recommended. I discussed the findings and results with the patient over the phone at the time of the interpretation. The Breast Center Navigator will consult with the patient regarding the recommendations including Breast Clinic referral recommendation. An Epic message with the recommendations of Breast Surgery Clinic referral and breast biopsy will be submitted by the Breast Center Navigator to Makayla Morley on 02/21/2024 at the time of interpretation. The Breast Center Navigator will schedule the appropriate appointments for the patient. Finding 4 Area of skin thickening in the right breast at 3 o'clock, 2 cm from the nipple is benign. BI-RADS Category 4: Suspicious I had last see this patient on August 16, 2023. At that time I noted: The patient is a 48 year old female with a complaint of nonhealing wound and discharge from her left nipple. The patient has a longstanding history of breast abscesses nipple discharge and infections. She has had multiple incision and drainage procedures of the left periareolar area. Most of these were performed at [facility] in [facility]. The patient is also seen Dr. Watson in the past. He advised against additional drainages when he saw the patient. The patient presents to multiple different ERs with these complaints. She states that after the most recent incision and drainage she has a chronic site which generally does not heal just along the medial aspect of her left nipple. She presented to [facility] emergency department ER with these complaints. Ultrasound of the breast was obtained which demonstrated no abscesses and no specific abnormalities. She followed up with Dr. Nieto. She noted some blood and pus draining from the nipple at that time. This was sent for culture returned as actinomyces. The patient was given doxycycline. She denies fever or chills. The patient is somewhat complicated history. She smokes 2 packs cigarettes a day. She snorts and smokes crystal methamphetamine. She had abstained from methamphetamine for the last 2 weeks when I had initially evaluated her in February. She has had issues with follow up and missing appointment. She notes chronic scabs with occasional drainage from sites on both medial nipple aerolar sites. SHe has not had breast imagine for some time. I noted at that time on exam: Left breast-no fluctuance or significant erythema. At the 9 o'clock position relative to the nipple areolar complex there is a scarred area with a small scab consistent with her previous multiple incisions. No drainage currently. Right breast - 3 oclock scab, also no fluctuance or drainage. Intraoffice ultrasound demonstrated no obvious abscess along that tract. There did appear to be multiple postsurgical changes/scarring in the area There appears to be a dilated duct under the right scab/drainage site. There is some retraction at the left site with no ultrasound abnormalities. I recommended mammogram and ultrasound which was ordered. The patient failed to have those studies and I understand moved to [place] where she had the above imaging. She has a history of PVD. She is on Xeralto and was planning to have a lower extremity non invasive study later this afternoon. The patient is being seen by me today at the request of Isatu Nieto MD my opinion and advice regarding left breast highly suspicious findings. 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 02/15 with of mother Severe episode of recur (more content not included)... [facility] 04-08-2024 History of Present illness Narrative HISTORY AND PHYSICAL - BREAST COMPLAINT Vinod Ann 1975 REFERRING PHYSICIAN: Isatu Nieto MD CHIEF COMPLAINT: left breast infected mass with drainage suspicious for malignancy HPI: The patient is a 49 year old female with a complaint of a palpable breast mass. The patient notes a mass in the retroaerolar portion to slightly medial area of her left breast. The patient has noticed this mass for a long time. The patient had a mammogram and ultrasound obtained the the [facility] on February 21, 2024 which demonstrated: IMPRESSION: Finding 1 Masses in both breasts are benign. Finding 2 Irregular mass in the left breast at 9 o'clock, 2 cm from the nipple is suspicious. It extends into the nipple. An ultrasound guided biopsy is recommended. Finding 3 Abnormal lymph node in the left axilla is suspicious. An ultrasound guided biopsy is recommended. I discussed the findings and results with the patient over the phone at the time of the interpretation. The Breast Center Navigator will consult with the patient regarding the recommendations including Breast Clinic referral recommendation. An Epic message with the recommendations of Breast Surgery Clinic referral and breast biopsy will be submitted by the Breast Center Navigator to Makayla Morley on 02/21/2024 at the time of interpretation. The Breast Center Navigator will schedule the appropriate appointments for the patient. Finding 4 Area of skin thickening in the right breast at 3 o'clock, 2 cm from the nipple is benign. BI-RADS Category 4: Suspicious I had last see this patient on August 16, 2023. At that time I noted: The patient is a 48 year old female with a complaint of nonhealing wound and discharge from her left nipple. The patient has a longstanding history of breast abscesses nipple discharge and infections. She has had multiple incision and drainage procedures of the left periareolar area. Most of these were performed at [facility] in [facility]. The patient is also seen Dr. Watson in the past. He advised against additional drainages when he saw the patient. The patient presents to multiple different ERs with these complaints. She states that after the most recent incision and drainage she has a chronic site which generally does not heal just along the medial aspect of her left nipple. She presented to [facility] emergency department ER with these complaints. Ultrasound of the breast was obtained which demonstrated no abscesses and no specific abnormalities. She followed up with Dr. Nieto. She noted some blood and pus draining from the nipple at that time. This was sent for culture returned as actinomyces. The patient was given doxycycline. She denies fever or chills. The patient is somewhat complicated history. She smokes 2 packs cigarettes a day. She snorts and smokes crystal methamphetamine. She had abstained from methamphetamine for the last 2 weeks when I had initially evaluated her in February. She has had issues with follow up and missing appointment. She notes chronic scabs with occasional drainage from sites on both medial nipple aerolar sites. SHe has not had breast imagine for some time. I noted at that time on exam: Left breast-no fluctuance or significant erythema. At the 9 o'clock position relative to the nipple areolar complex there is a scarred area with a small scab consistent with her previous multiple incisions. No drainage currently. Right breast - 3 oclock scab, also no fluctuance or drainage. Intraoffice ultrasound demonstrated no obvious abscess along that tract. There did appear to be multiple postsurgical changes/scarring in the area There appears to be a dilated duct under the right scab/drainage site. There is some retraction at the left site with no ultrasound abnormalities. I recommended mammogram and ultrasound which was ordered. The patient failed to have those studies and I understand moved to [place] where she had the above imaging. She has a history of PVD. She is on Xeralto and was planning to have a lower extremity non invasive study later this afternoon. The patient is being seen by me today at the request of Isatu Nieto MD my opinion and advice regarding left breast highly suspicious findings. 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 02/15 with of mother Severe episode of recurrent major depressive disorder, without psychotic features ([facility]) Kendra Padilla Suicidal ideation PAST SURGICAL HISTORY Procedure Laterality Date ABDOMINAL SURGERY HX BREAST SURGERY HX BX OF BREAST; INCISIONAL Left 08/29/2019 [place] [facility]- Benign COLONOSCOPY 09/22/2022 COLONOSCOPY FLX DX W/COLLJ SPEC WHEN PFRMD 12/01/2019 Colonoscopy PAST SURGICAL HISTORY OF 03/2010 gall bladder removed PAST SURGICAL HISTORY OF Left wrist surgery when she was 15 years old PAST SURGICAL HISTORY OF 2013 tubal ligation PAST SURGICAL HISTORY OF 02/2022 bilateral cyst removed, [place] Current Outpatient Medications Medication Sig Dispense Refill hydroCHLOROthiazide 25 mg tablet Take 25 mg by mouth once daily. rivaroxaban (XARELTO) 20 mg tablet Take 20 mg by mouth. rosuvastatin (CRESTOR) 10 mg tablet Take 10 mg by mouth once daily. aspirin 81 mg cap Take 81 mg by mouth once daily. amLODIPine (NORVASC) 2.5 mg tablet Take 1 tablet by mouth once daily. 30 tablet 1 famotidine (PEPCID) 20 mg tablet Take 1 tablet by mouth at bedtime as needed. 30 tablet 1 acetaminophen (TYLENOL) 325 mg tablet Take 650 mg by mouth once daily. oxybutynin ER (DITROPAN XL) 10 mg 24 hr tablet Take 1 tablet by mouth once daily. 30 tablet 12 ergocalciferol 50,000 unit capsule (VITAMIN D2, DRISDOL) Take 1 capsule by mouth one time a week. 12 capsule 1 omeprazole (PRILOSEC) 40 mg capsule Take 1 capsule by mouth once daily. 30 capsule 11 multivitamin tablet Take 1 tablet by mouth once daily. 90 tablet 3 melatonin 5 mg tablet Take 1 tablet by mouth as needed for insomnia. No current facility-administered medications for this visit. ALLERGIES: Cephalexin, Fenofibrate, Zoloft [Sertraline Hcl], Zyprexa [Olanzapine], and Clindamycin PERSONAL HISTORY: Social History Tobacco Use Smoking status: Every Day Packs/day: 2.00 Years: 29.00 Additional pack years: 0.00 Total pack years: 58.00 Types: Cigarettes Smokeless tobacco: Never Vaping Use Vaping Use: Former Substances: Nicotine Substance Use Topics Alcohol use: Yes Comment: quit , small relapse in 02/15 with of mother. FAMILY HISTORY: FAMILY HISTORY Problem Relation Age of Onset Lung Cancer Mother at 63 Osteoporosis Mother Alcohol/Drug Mother alcohol Hypertension Father Alcohol/Drug Father alcohol Aneurysm Father abdominal Prostate Cancer Father Alcohol/Drug Sister drugs other (Aids) Sister drug user Aneurysm Sister head Breast Cancer Paternal Grandmother late 50's or 60's Alcohol/Drug Niece Ovarian cancer Niece diagnosed young REVIEW OF SYMPTOMS: The review of systems data was entered by the nurse and reviewed by me Nursing Notes: Leonidas Nunez LPN 04/04/2024 8:51 AM Signed REVIEW OF SYSTEMS: General: The patient denies fatigue, denies weight loss, denies weight gain, denies feeling hot, and denies feelings of cold. Eyes: The patient denies glaucoma, denies eye injury/surgery, does not wear glasses or contacts. Ear/Nose/Throat: The patient NOTES allergies, denies hayfever, denies ear infections, and denies bloody noses. Cardiovascular: The patient denies chest pain, denies heart disease, NOTES high blood pressure,denies cardiac stent, denies prior heart attack, denies irregular heart beat, NOTES high cholesterol, denies poor circulation, denies heart failure, other cardiac issues, denies claudication, denies cold feet, denies peripheral arterial stent. Respiratory: The patient denies tuberculosis, denies pneumonia, NOTES frequent cough, denies pulmonary embolism, NOTES shortness of breath, and denies coughing up blood. Gastrointestinal: The patient denies difficulty swallowing, NOTES acid reflux, denies ulcers, denies vomiting, denies jaundice/hepatitis, denies gallbladder problems, denies black or tarry stools, denies hemorrhoids, denies bleeding from rectum, denies diverticulitis, denies constipation, denies diarrhea, denies loss of stool control, and denies hernias. Kidney/Bladder: The patient denies kidney stones, denies urine infections, and denies bloody urine. Skin: The patient denies a history of skin cancer, denies bleeding/changing moles, and denies a history of skin rash. Neurologic: The patient denies a history of epilepsy/convulsions, denies headaches, denies head/spinal injuries, and denies stroke/TIA. Psychiatric: The patient NOTES psychiatric medications, NOTES depression, and denies voices, denies substance abuse. Endocrine: The patient denies thyroid disorders, denies diabetes, and denies hormonal problems. Hematologic: The patient denies a history of bruising, denies bleeding, and denies anemia, denies blood clots. Infections: The patient denies a history of measles and mumps, denies rheumatic fever, and denies sexually transmitted diseases. Musculoskeletal: The patient denies back pain/injury, denies back problems, denies sciatica, denies knee/foot trouble, denies arthritis, or denies gout. When was patient's last Mammogram screening? 2023 Last Colonoscopy: 2021 Leonidas Nunez LPN PHYSICAL EXAMINATION: General: The patient is 49 year old female, well nourished, well hydrated in no acute distress. The patient is oriented to time, place, and person. VITALS: Blood pressure 136/78, pulse 116, temperature 36.2 C (97.1 F), height 165.1 cm (5' 5), weight 100.9 kg (222 lb 6.4 oz), last menstrual period 08/06/2020, SpO2 100%. Body mass index is 37.01 kg/m . HEENT: Normal cephalic, ataumatic, pupils are equally round, sclera are anicteric, mucous membranes are moist, oropharynx is clear. Neck has no masses, asymmetry or lymphadenopathy. Thyroid is unremarkable. Respiratory: Clear to auscultation and percussion. Normal respiratory excursion and pattern. Cardiac: Examination is regular rate and rhythm. Abdominal exam: Soft, nontender, with no palpable masses. No hepatosplenomegaly. No palpable hernias. Rectal exam: exam deferred Extremities: no clubbing, cyanosis or edema. No adenopathy. Breast: Visual inspection reveals no retractions, nipple inversion, or skin changes. Palpation of the right breast reveals no dominant or suspicious masses. Palpation of the left breast reveals the dominant mass at the 9 oclock position 2 cm from the nipple with firm swelling tracking to the underneath of the nipple areolar complex. Axillary exam demonstrates no suspicious masses in either the left or right axilla. LABORATORY VALUES: As Noted RADIOLOGIC STUDIES: As Noted Intraoffice ultrasound demonstrated a similar abnormality at the retroaerolar site. I did not clearly identify the abnormality noted in the axilla. Assessment IMPRESSION: chronic breast abscesses, no highly suspicious mass, left breast, PVD< on oral anticoagulatants. PLAN: I plan to refer the patient for a ultrasound guided core biopsy of the left breast and the left axilla. The planned surgical procedure was discussed extensively with the patient. The risks, benefits, anticipated outcomes and possible complications were mentioned. My staff has also explained the procedure in understandable terms and the patient was given the option to take printed material concerning the planned procedure. The patient had the opportunity to ask questions concerning the planned procedure. The patient freely consents to the planned procedure. Diagnoses: (N61.1) Breast abscess (primary encounter diagnosis) (N63.42) Subareolar mass of left breast My findings have been communicated to Dr. Isatu Nieto MD via shared medical record. This note will be forwarded to Dr. Isatu Nieto MD. Return to Clinic: The patient is instructed to follow-up with me after the testing has been completed. Franco Roblero MD documented in this encounter [facility] 04-08-2024 Telephone encounter Note Patient called requesting antibiotic due to abscess on breast being infected? Patient was seen with Osbaldo on 04/01 she states that Osbaldo knows all about it but needs Rx Can be reached at [phone] Please advise [facility] Work Phone: 04-04-2024 Nurse Note REVIEW OF SYSTEMS: General: The patient denies fatigue, denies weight loss, denies weight gain, denies feeling hot, and denies feelings of cold. Eyes: The patient denies glaucoma, denies eye injury/surgery, does not wear glasses or contacts. Ear/Nose/Throat: The patient NOTES allergies, denies hayfever, denies ear infections, and denies bloody noses. Cardiovascular: The patient denies chest pain, denies heart disease, NOTES high blood pressure,denies cardiac stent, denies prior heart attack, denies irregular heart beat, NOTES high cholesterol, denies poor circulation, denies heart failure, other cardiac issues, denies claudication, denies cold feet, denies peripheral arterial stent. Respiratory: The patient denies tuberculosis, denies pneumonia, NOTES frequent cough, denies pulmonary embolism, NOTES shortness of breath, and denies coughing up blood. Gastrointestinal: The patient denies difficulty swallowing, NOTES acid reflux, denies ulcers, denies vomiting, denies jaundice/hepatitis, denies gallbladder problems, denies black or tarry stools, denies hemorrhoids, denies bleeding from rectum, denies diverticulitis, denies constipation, denies diarrhea, denies loss of stool control, and denies hernias. Kidney/Bladder: The patient denies kidney stones, denies urine infections, and denies bloody urine. Skin: The patient denies a history of skin cancer, denies bleeding/changing moles, and denies a history of skin rash. Neurologic: The patient denies a history of epilepsy/convulsions, denies headaches, denies head/spinal injuries, and denies stroke/TIA. Psychiatric: The patient NOTES psychiatric medications, NOTES depression, and denies voices, denies substance abuse. Endocrine: The patient denies thyroid disorders, denies diabetes, and denies hormonal problems. Hematologic: The patient denies a history of bruising, denies bleeding, and denies anemia, denies blood clots. Infections: The patient denies a history of measles and mumps, denies rheumatic fever, and denies sexually transmitted diseases. Musculoskeletal: The patient denies back pain/injury, denies back problems, denies sciatica, denies knee/foot trouble, denies arthritis, or denies gout. When was patient's last Mammogram screening? 2023 Last Colonoscopy: 2021 Leonidas Nunez LPN [facility] 04-04-2024 Nurse Note REVIEW OF SYSTEMS: General: The patient denies fatigue, denies weight loss, denies weight gain, denies feeling hot, and denies feelings of cold. Eyes: The patient denies glaucoma, denies eye injury/surgery, does not wear glasses or contacts. Ear/Nose/Throat: The patient NOTES allergies, denies hayfever, denies ear infections, and denies bloody noses. Cardiovascular: The patient denies chest pain, denies heart disease, NOTES high blood pressure,denies cardiac stent, denies prior heart attack, denies irregular heart beat, NOTES high cholesterol, denies poor circulation, denies heart failure, other cardiac issues, denies claudication, denies cold feet, denies peripheral arterial stent. Respiratory: The patient denies tuberculosis, denies pneumonia, NOTES frequent cough, denies pulmonary embolism, NOTES shortness of breath, and denies coughing up blood. Gastrointestinal: The patient denies difficulty swallowing, NOTES acid reflux, denies ulcers, denies vomiting, denies jaundice/hepatitis, denies gallbladder problems, denies black or tarry stools, denies hemorrhoids, denies bleeding from rectum, denies diverticulitis, denies constipation, denies diarrhea, denies loss of stool control, and denies hernias. Kidney/Bladder: The patient denies kidney stones, denies urine infections, and denies bloody urine. Skin: The patient denies a history of skin cancer, denies bleeding/changing moles, and denies a history of skin rash. Neurologic: The patient denies a history of epilepsy/convulsions, denies headaches, denies head/spinal injuries, and denies stroke/TIA. Psychiatric: The patient NOTES psychiatric medications, NOTES depression, and denies voices, denies substance abuse. Endocrine: The patient denies thyroid disorders, denies diabetes, and denies hormonal problems. Hematologic: The patient denies a history of bruising, denies bleeding, and denies anemia, denies blood clots. Infections: The patient denies a history of measles and mumps, denies rheumatic fever, and denies sexually transmitted diseases. Musculoskeletal: The patient denies back pain/injury, denies back problems, denies sciatica, denies knee/foot trouble, denies arthritis, or denies gout. When was patient's last Mammogram screening? 2023 Last Colonoscopy: 2021 Leonidas Nunez LPN documented in this encounter [facility] 04-03-2024 Note HNO ID: [id number] Author: FRANCO ROBLERO MD Service: ? Author Type: Physician Type: Progress Notes Filed: 04/03/2024 05:09 Note Text: Patient left before being seen due to ride issues. Will reschedule for Sunday [facility] 04-03-2024 History of Present illness Narrative Patient left before being seen due to ride issues. Will reschedule for Sunday documented in this encounter [facility] 04-01-2024 Telephone encounter Note Phone call placed to [employer] to have US & Mamm images pushed into Epic. Mohinder Santiago RN [facility] 04-01-2024 Miscellaneous Notes [facility] US & Mamm images pushed into Epic. Mohinder Santiago RN documented in this encounter [facility] 03-21-2024 Telephone encounter Note Voicemail message received from patient's NEON PCP - Dr. Makayla Morley. Return call made to Dr. Morley. Dr. Morley identified patient by name, date of , and [facility] MRN. Dr. Morley is questioning if the recommendations for the biopsy had been discussed with patient by the radiologist or any other medical staff; explaining that she has not received or has access to the documentation supporting this patient education. After confirming that Dr. Morley is ordering provider for patient's breast imaging, the process for patient education was explained, and the diagnostic imaging report was faxed to her at number provided - [phone]. Belinda Florez RN [facility]-, VIVIANE, PhD Breast Center - Radiology Nurse Navigator/Secretary Of State [facility] Work Phone: 03-21-2024 Miscellaneous Notes Voicemail message received from patient's NEON PCP - Dr. Makayla Morley. Return call made to Dr. Morley. Dr. Morley identified patient by name, date of , and [facility] MRN. Dr. Morley is questioning if the recommendations for the biopsy had been discussed with patient by the radiologist or any other medical staff; explaining that she has not received or has access to the documentation supporting this patient education. After confirming that Dr. Morley is ordering provider for patient's breast imaging, the process for patient education was explained, and the diagnostic imaging report was faxed to her at number provided - [phone]. Belinda WESTFALL, LINTING MACHINE OPERATOR, PhD [facility] - Radiology Nurse Navigator/Secretary Of State Voicemail message received from patient, requesting return call. 1st attempt to reach patient via telephone. Patient answered call, ID'd by name and . Explained purpose of call. Patient explains that she has moved back home to [place], [place], and she plans to transfer all medical care to her providers there. Patient informed that she must provide Authorization to Release her medical records or have her new providers request records through the Medical Records request process. Patient states that she will go to [facility] and follow the process to have them request her records. Patient request to cancel next's weeks appts at [facility] - App on March 06, March 07, and March 11. Patient advised that she has more appts in the weeks to come, and she should make arrangements to have those canceled as well. Patient agreed. Belinda WESTFALL, LINTING MACHINE OPERATOR, PhD [facility] - Radiology Nurse Navigator/Secretary Of State documented in this encounter [facility] 03-07-2024 Telephone encounter Note Patient returned call and given provider's message below and patient verbalized understanding. Reed Mulligan RN [facility] 03-07-2024 Miscellaneous Notes Patient returned call and given provider's message below and patient verbalized understanding. Reed Mulligan RN Left message for return call. She needs to contact original prescribers for refills on mental health medications. Thank you Milly Feliciano APRN.CNP Vinod is calling Isatu Nieto MD today to request medication refills; she is asking for multiple medications not listed. She stated mental health prescribed these. Please call the patient. Patient has been identified by name and birthdate. Duration of symptoms: N/A Person calling: self Call patient at: on cell [phone] (home) [phone] (cell) Was an appointment scheduled: No Closing statement: Results or non-symptom based questions: Thank you for calling [facility], your call will be returned within the next business day. Eulalia Catalan Pss documented in this encounter [facility] 03-06-2024 Telephone encounter Note Left message for return call. [facility] 03-05-2024 Telephone encounter Note She needs to contact original prescribers for refills on mental health medications. Thank you Milly Feliciano APRN.CNP [facility] 03-05-2024 Telephone encounter Note Letter faxed to number provided. Message left on pt identified voicemail advising. [facility] 03-05-2024 Miscellaneous Notes Letter faxed to number provided. Message left on pt identified voicemail advising. Pt called in asking for an excuse for jury duty for tomorrow. I let her know that Milly Older [employer] isn't in today and she would get it tomorrow. I let Pt know that provider has 72 hours to respond message. Pt states that she has PAD and blood clots in her legs and feet, and she wouldn't be able to do jury duty. Provider would need to send letter to Melissa Valle fax # [phone] and phone # [phone]. Pt would like a call back from providers office with response. documented in this encounter [facility] 03-04-2024 Telephone encounter Note Vinod is calling Istau Nieto MD today to request medication refills; she is asking for multiple medications not listed. She stated mental health prescribed these. Please call the patient. Patient has been identified by name and birthdate. Duration of symptoms: N/A Person calling: self Call patient at: on cell [phone] (home) [phone] (cell) Was an appointment scheduled: No Closing statement: Results or non-symptom based questions: Thank you for calling [facility], your call will be returned within the next business day. Eulalia Torres [facility] 03-04-2024 Telephone encounter Note Pt called in asking for an excuse for jury duty for tomorrow. I let her know that Milly Feliciano [employer] isn't in today and she would get it tomorrow. I let Pt know that provider has 72 hours to respond message. Pt states that she has PAD and blood clots in her legs and feet, and she wouldn't be able to do jury duty. Provider would need to send letter to Melissa Valle fax # [phone] and phone # [phone]. Pt would like a call back from providers office with response. [facility] 03-03-2024 Telephone encounter Note Voicemail message received from patient, requesting return call. 1st attempt to reach patient via telephone. Patient answered call, ID'd by name and . Explained purpose of call. Patient explains that she has moved back home to [place], [place], and she plans to transfer all medical care to her providers there. Patient informed that she must provide Authorization to Release her medical records or have her new providers request records through the Medical Records request process. Patient states that she will go to [facility] and follow the process to have them request her records. Patient request to cancel next's weeks appts at [facility] on March 06, March 07, and March 11. Patient advised that she has more appts in the weeks to come, and she should make arrangements to have those canceled as well. Patient agreed. Belinda WESTFALL, LINTING MACHINE OPERATOR, PhD [facility] - Radiology Nurse Navigator/Secretary Of State [employer] Work Phone: 03-03-2024 Miscellaneous Notes Voicemail message received from patient, requesting return call. 1st attempt to reach patient via telephone. Patient answered call, ID'd by name and . Explained purpose of call. Patient explains that she has moved back home to [place], [place], and she plans to transfer all medical care to her providers there. Patient informed that she must provide Authorization to Release her medical records or have her new providers request records through the Medical Records request process. Patient states that she will go to [facility] and follow the process to have them request her records. Patient request to cancel next's weeks appts at [facility] on March 06, March 07, and March 11. Patient advised that she has more appts in the weeks to come, and she should make arrangements to have those canceled as well. Patient agreed. Bleinda WESTFALL, LINTING MACHINE OPERATOR, PhD [facility] - Radiology Nurse Navigator/Secretary Of State documented in this encounter [facility] 02-29-2024 Telephone encounter Note She was seen within the last year so ok to be seen. Please switch PCP to dr. Nieto Thank you Milly Feliciano APRN.CNP [facility] 02-29-2024 Miscellaneous Notes She was seen within the last year so ok to be seen. Please switch PCP to dr. Nieto Thank you Milly Feliciano APRN.CNP Patient is returning to [place] for residency from [place]. She is requesting to re-establish with the services of Dr. Nieto and Milly Feliciano CNP. She is concerned of possible cancer from recent tests. Please notify patient of provider's decision. documented in this encounter [facility] 02-28-2024 Telephone encounter Note Patient is returning to [place] for residency from [place]. She is requesting to re-establish with the services of Dr. Nieto and Milly Feliciano CNP. She is concerned of possible cancer from recent tests. Please notify patient of provider's decision. [facility] 02-27-2024 Telephone encounter Note Called 330 number listed as preferred, no answer, lm on vm to call the office at [phone]. Unable to reach pt x 2 by phone. Letter sent. [facility] Work Phone: 02-27-2024 Miscellaneous Notes Called 330 number listed as preferred, no answer, lm on vm to call the office at [phone]. Unable to reach pt x 2 by phone. Letter sent. Attempted to contact patient. Left voicemail message on listed contact # to call [facility] at [phone]. Asked patient to reference #[phone] when calling back to our office. Ok to relay message below. Pt has not been seen in [facility] Is pt currently receiving care at [facility]? Can provider supply enough medication until pt is seen with new provider? If not pt will need to come in for an appt for med refill. Patient is requesting a medication listed under current medications as Historical. Please evaluate validity of therapy and forward to provider if appropriate. If not appropriate please contact the patient. Thank you. clonidine 0.1mg 1 tab hs Has appt 03-13-24 to [facility] documented in this encounter [facility] 02-26-2024 Instructions Aimee Kelly MD - 02/26/2024 1:54 PM EDT RERE Evaluation: - We suspect you may have sleep apnea. - Sleep apnea is a serious sleep disorder that occurs when a person's breathing is interrupted during sleep. People with untreated sleep apnea stop breathing repeatedly during their sleep, sometimes hundreds of times during the night. - The most common type of sleep apnea is obstructive sleep apnea. - If left untreated, obstructive sleep apnea can result in a number of health problems including hypertension, stroke, arrhythmias, cardiomyopathy (enlargement of the muscle tissue of the heart), heart failure, diabetes, obesity, and heart attacks. - Treatment options for obstructive sleep apnea may include positive airway pressure (PAP) therapy, oral appliance, hypoglossal nerve stimulator, nose/throat surgery, weight loss, side sleeping, or avoidance of medications or substances that can relax the airway muscles (alcohol, benzodiazepines, and opioids). - We have ordered a Polysomnogram (PSG) to evaluate for sleep apnea. - This test should be scheduled at your earliest convenience. - Avoid driving if drowsy. We recommend that if you are dozing off while driving, that you do not drive until your sleepiness is appropriately treated. - We encourage a healthy lifestyle with adequate sleep (7-9 hours per night), diet and exercise. - Please schedule a follow up clinic visit now for 2-3 weeks after sleep study is done to review results. - Call [phone] to schedule your sleep study and follow up appointment if it is not scheduled after your visit today with one of our schedulers. documented in this encounter [facility] 02-26-2024 History of Present illness Narrative Images from the original note were not included. [facility] New Patient Evaluation - [facility] PATIENT NAME: Vinod Ann DATE OF SERVICE: February 26, 2024 CONSULTING PROVIDER: Juliana Pritchett, HAND SCRAPER [address] [place] [address] REASON FOR CONSULT: Juliana Pritchett sends the patient for an opinion about having a sleep study done d/t witnessed apneas, SOB @HS., and daytime sleepiness. My findings and recommendations will be transmitted electronically via shared medical record to the consulting provider. HPI: Vinod Ann is a 49 year old female GERD, hyperlipidemia, alcohol and drug abuse on rehabilitation. Patient reports that friends have witnessed apneas, snoring, intermittent gasping, SOB, GERD, Daytime Sleepiness. She naps during the day. She is a mouth breather. SLEEP-RELATED DETAILS Bedtime: 10 PM. It takes 25-60 mins to fall asleep. Wake time: 5-6 AM. Average total sleep time (in a 24 hour period): 4 hours. Sleep position: side After falling asleep: she wakes up 5 time(s) per night, because of choking or gasping for air, reflux symptoms, and the need to urinate. She has been told about snoring and witness apneas. Excessive daytime sleepiness / fatigue is a problem. Excessive Daytime sleepiness/fatigue has been a problem for 8 years. There is a history of head injury prior to the start of daytime sleepiness. She does have difficulty with memory or concentration. She does take naps. Frequency: varies, Duration: varies, up to 2 hrs.. Naps are refreshing. She does not drive. She does drink 1 gallon of tea caffeinated beverages per day. She has gained 60 pounds since 41 yrs old. There is a history of head injury prior to the start of daytime sleepiness. Do you have an urgency to move your legs at night, to the point that you get out of bed to walk? yes Do you have abnormal movements or behaviors during sleep such as acting out dreams or sleep walking [place] Sleepiness Scale: What are your chances of dozing? 0= no chance 1= slight chance 2= moderate chance 3= high chance Sitting and readin Watching TV: 3 Sitting, inactive in a public place (e.g. a theatre or a meeting):3 As a passenger in a car for an hour without a break:3 Lying down to rest in the afternoon when circumstances permit:2 Sitting and talking to someone: 3 Sitting quietly after a lunch without alcohol:3 In a car, while stopped for a few minutes in the traffic:1 Total:19 Patient-Entered Questionnaire Sleep Scores PRIOR SLEEP STUDIES: PAST MEDICAL HISTORY Diagnosis Date Anxiety state, unspecified 11/20/2014 Arthritis Bleeding stomach ulcer Breast infection in female bilateral reoccurant Delayed emergence from general anesthesia GERD (gastroesophageal reflux disease) Hiatal hernia 02/2015 Obesity (BMI 30-39.9) 11/20/2014 Other and unspecified hyperlipidemia 11/20/2014 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 meloxicam (MOBIC) 7.5 mg tablet take 1 tablet by mouth daily with food ofloxacin (FLOXIN) 0.3 % otic solution Use 5 Drops in both ears once daily. loratadine (CLARITIN) 10 mg tablet Take 1 tablet by mouth once daily. famotidine (PEPCID) 20 mg tablet Take 1 tablet by mouth at bedtime as needed. nystatin (MYCOSTATIN) 100,000 unit/mL suspension Take 5 mL by mouth four times daily. 1tsp swish in mouth for several minutes, then swallow (or expectorate) 4 times daily until gone. acetaminophen (TYLENOL) 325 mg tablet Take 650 mg by mouth once daily. oxybutynin ER (DITROPAN XL) 10 mg 24 hr tablet Take 1 tablet by mouth once daily. ergocalciferol 50,000 unit capsule (VITAMIN D2, DRISDOL) Take 1 capsule by mouth one time a week. omeprazole (PRILOSEC) 40 mg capsule Take 1 capsule by mouth once daily. melatonin 5 mg tablet Take 5 mg by mouth. (Patient not taking: Reported on 08/16/2023) hydrOXYzine pamoate (VISTARIL) 50 mg capsule multivitamin tablet Take 1 tablet by mouth once daily. (Patient not taking: Reported on 08/16/2023) FAMILY HISTORY Problem Relation Age of Onset Lung Cancer Mother at 63 Osteoporosis Mother Alcohol/Drug Mother alcohol Hypertension Father Alcohol/Drug Father alcohol Aneurysm Father abdominal Prostate Cancer Father Alcohol/Drug Sister drugs other (Aids) Sister drug user Aneurysm Sister head Breast Cancer Paternal Grandmother late 50's or 60's Alcohol/Drug Niece Ovarian cancer Niece diagnosed young There is no family history of sleep disorders. Ayleen Jamison LPN PHYSICAL EXAMINATION: Vital Signs: BP 124/71 Pulse 108 Ht 167.6 cm (5' 5.98) Wt 101 kg (222 lb 10.6 oz) LMP 08/06/2020 SpO2 94% BMI 35.96 kg/m IMPRESSION/PLAN: G47.33 RERE (obstructive sleep apnea) (primary encounter diagnosis) Patient is a 49 year old woman with high pretest probability for RERE who will benefit from testing. She also has several other social needs that perhaps will be significant barriers for treatment adherence however she would like to give it a try because she is sleepy during the day and she wants to remain healthy for her grandchildren. Pathophysiology, risks, and complications of untreated sleep apnea were discussed, including the potential long-term metabolic, neurocognitive, and cardiovascular implications. Sleep testing was discussed with the patient and she agrees with the split polysomnogram. All questions were answered. -Split polysomnogram -Follow up 2 weeks after to review results. Aimee Kern MD. documented in this encounter [facility] 02-25-2024 Note Follow up call made to patient to discuss treatment plan. 2nd attempt to reach patient via telephone. Patient answered call, ID'd by name and . Explained purpose of call. Patient states that she can't talk because she is overwhelmed with too many things coming at her; she gave the phone to her counselor who agreed that I should do a follow up call in the next 1-2 days. Belinda WESTFALL, LINTING MACHINE OPERATOR, PhD [facility] Nurse Navigator/Secretary Of State [facility] Telephone encounter Note Follow up call made to patient to discuss treatment plan. 2nd attempt to reach patient via telephone. Patient answered call, ID'd by name and . Explained purpose of call. Patient states that she can't talk because she is overwhelmed with too many things coming at her; she gave the phone to her counselor who agreed that I should do a follow up call in the next 1-2 days. Belinda WESTFALL, LINTING MACHINE OPERATOR, PhD [facility] - Radiology Nurse Navigator/Secretary Of State [employer] Work Phone: 02-25-2024 Miscellaneous Notes Follow up call made to patient to discuss treatment plan. 2nd attempt to reach patient via telephone. Patient answered call, ID'd by name and . Explained purpose of call. Patient states that she can't talk because she is overwhelmed with too many things coming at her; she gave the phone to her counselor who agreed that I should do a follow up call in the next 1-2 days. Belinda WESTFALL, VIVIANE, PhD [facility] Radiology Nurse Navigator/Secretary Of State Follow up call made to patient to discuss treatment plan. Patient answered call, and states that she is unable to talk at this time. She request a call back later. VIVIANE Ring RN, PhD [facility] Radiology Nurse Navigator/Secretary Of State Call made to patient to discuss outcome of the CT scan that was scheduled at [facility], and inquire if she intended to schedule vascular studies here at [facility]. 1st attempt to reach patient via telephone. No answer, left VM requesting a call back. Belinda WESTFALL, VIVIANE, PhD [facility] Radiology Nurse Navigator/Secretary Of State documented in this encounter [facility] 02-25-2024 Note Follow up call made to patient to discuss treatment plan. Patient answered call, and states that she is unable to talk at this time. She request a call back later. Belinda WESTFALL, VIVIANE, PhD [facility] Radiology Nurse Navigator/Secretary Of State [facility] 02-25-2024 Telephone encounter Note Follow up call made to patient to discuss treatment plan. Patient answered call, and states that she is unable to talk at this time. She request a call back later. VIVIANE Ring RN, PhD [facility] Radiology Nurse Navigator/Secretary Of State [facility] 02-22-2024 Telephone encounter Note Call made to patient to discuss outcome of the CT scan that was scheduled at [facility], and inquire if she intended to schedule vascular studies here at [facility]. 1st attempt to reach patient via telephone. No answer, left VM requesting a call back. VIVIANE Ring RN, PhD [facility] Radiology Nurse Navigator/Secretary Of State [facility] Work Phone: 02-22-2024 Miscellaneous Notes Call made to patient to discuss outcome of the CT scan that was scheduled at [facility], and inquire if she intended to schedule vascular studies here at [facility]. 1st attempt to reach patient via telephone. No answer, left VM requesting a call back. Belinda WESTFALL, VIVIANE, PhD [facility] Radiology Nurse Navigator/Secretary Of State documented in this encounter [facility] 02-21-2024 Note Breast Clinic referr al pended per radiologist recommendation. VIVIANE Ring RN, PhD [facility] Radiology Nurse Navigator/Secretary Of State [facility] 02-21-2024 Telephone encounter Note Breast Clinic referral pended per radiologist recommendation. VIVIANE Ring RN, PhD [facility] Radiology Nurse Navigator/Secretary Of State [facility] 02-21-2024 Miscellaneous Notes Breast Clinic referral pended per radiologist recommendation. DORINA Ring RNW, PhD [facility] Radiology Nurse Navigator/Secretary Of State documented in this encounter [facility] 02-21-2024 Note Call made to patient to provide procedure education and to assist with scheduling. 1st attempt to reach patient via telephone. Patient answered call, ID'd by name and . Explained purpose of call.. Reviewed results of breast imaging by Dr. Morrell with patient. Explained to patient the radiologist is recommending Ultrasound Guided Biopsy of Left Breast. Discussed biopsy procedure. Patient reports no allergy to local anesthetic medication or tape; patient is is taking blood thinning medications. Patient taking Xarelto - will consult with prescribing provider about holding blood thinning medication for procedure. Pre-Biopsy Breast Clinic appt scheduled for March 07 at 2:20pm. Biopsy scheduled for March 11 at 9am. Patient agreeable to date(s) and time(s) of appointment(s). [facility] Core Needle Biopsy pamphlet given to patient. All questions have been answered to patient's satisfaction. Nurse Navigator contact information provided to patient/family should there be any questions or concerns that arise. Insurance: Tamia Florez RN [facility] VIVIANE, PhD Breast Center Nurse Navigator/Secretary Of State [facility] 02-21-2024 Telephone encounter Note Call made to patient to provide procedure education and to assist with scheduling. 1st attempt to reach patient via telephone. Patient answered call, ID'd by name and . Explained purpose of call.. Reviewed results of breast imaging by Dr. Morrell with patient. Explained to patient the radiologist is recommending Ultrasound Guided Biopsy of Left Breast. Discussed biopsy procedure. Patient reports no allergy to local anesthetic medication or tape; patient is is taking blood thinning medications. Patient taking Xarelto - will consult with prescribing provider about holding blood thinning medication for procedure. Pre-Biopsy Breast Clinic appt scheduled for March 07 at 2:20pm. Biopsy scheduled for March 11 at 9am. Patient agreeable to date(s) and time(s) of appointment(s). [facility] Core Needle Biopsy pamphlet given to patient. All questions have been answered to patient's satisfaction. Nurse Navigator contact information provided to patient/family should there be any questions or concerns that arise. Insurance: Tamia WESTFALL, LINTING MACHINE OPERATOR, PhD [facility] Nurse Navigator/Secretary Of State [facility] 02-21-2024 Miscellaneous Notes Call made to patient to provide procedure education and to assist with scheduling. 1st attempt to reach patient via telephone. Patient answered call, ID'd by name and . Explained purpose of call.. Reviewed results of breast imaging by Dr. Morrell with patient. Explained to patient the radiologist is recommending Ultrasound Guided Biopsy of Left Breast. Discussed biopsy procedure. Patient reports no allergy to local anesthetic medication or tape; patient is is taking blood thinning medications. Patient taking Xarelto - will consult with prescribing provider about holding blood thinning medication for procedure. Pre-Biopsy Breast Clinic appt scheduled for March 07 at 2:20pm. Biopsy scheduled for March 11 at 9am. Patient agreeable to date(s) and time(s) of appointment(s). [facility] Core Needle Biopsy pamphlet given to patient. All questions have been answered to patient's satisfaction. Nurse Navigator contact information provided to patient/family should there be any questions or concerns that arise. Insurance: Tamia WESTFALL, LINTING MACHINE OPERATOR, PhD [facility] Nurse Navigator/Secretary Of State documented in this encounter [facility] 02-21-2024 Note [id number] Tobacco Cessation Navigator Outreach Encounter Documentation Reason for Visit (should be Tobacco Use): Patient presents with: [employer] Navigation (Research) Phone numbers On 02/21/2024 the [employer] navigator called the patient, Vinod Ann. This is the 1st call attempt. The patient was not reached at this time. This was attempt 1-4 to contact the patient. Patient informed that we are following up on on the text recently sent. Contact info given for patient to call back and informed that we will try calling again soon. No answer. LVM with call back number. C2Q letter mailed. [id number] Tobacco Cessation Navigator Outreach Encounter Documentation Reason for Visit (should be Tobacco Use): Patient presents with: [id number] Navigation (Research) Tobacco use Phone numbers On 02/28/2024 the [id number] navigator called the patient, Vinod Ann. This is the 2nd call attempt. The patient was not reached at this time. This was attempt 1-4 to contact the patient. Patient informed that we are following up on on the text recently sent. Contact info given for patient to call back and informed that we will try calling again soon. No answer. LVM with call back number. [employer] Tobacco Cessation Navigator Outreach Encounter Documentation Reason for Visit (should be Tobacco Use): Patient presents with: [id number] Navigation (Research) Tobacco use Tobacco use Phone numbers On 03/03/2024 the [id number] navigator called the patient, Vinod Ann. This is the 3rd call attempt. The patient was contacted successfully. Introduced myself as a [id number] Patient Navigator from [employer]. Asked to speak with Vinod Ann Confirmed patient identity with two additional identifiers. Informed patient: My name is Makayla Spears and I am a [id number] patient Navigator from [employer]. You might remember that at a recent appointment with your primary provider, you expressed interest in quitting tobacco and in getting tools and supports to help you succeed. I am calling to connect you to resources to quit smoking. Asked: Do you have about 10 minutes now to make a personalized plan to support quitting tobacco? Is now OK? Vinod Ann opt out of receiving information to help her quit smoking. The patient did not provide enough time for CHW to ask if she would like to receive resources for future reference. She immediately hung up the phone after declining services. [facility] 02-21-2024 Telephone encounter Note [id number] Tobacco Cessation Navigator Outreach Encounter Documentation Reason for Visit (should be Tobacco Use): Patient presents with: [employer] Navigation (Research) Phone numbers On 02/21/2024 the [id number] navigator called the patient, Vinod Ann. This is the 1st call attempt. The patient was not reached at this time. This was attempt 1-4 to contact the patient. Patient informed that we are following up on on the text recently sent. Contact info given for patient to call back and informed that we will try calling again soon. No answer. LVM with call back number. C2Q letter mailed. [id number] Tobacco Cessation Navigator Outreach Encounter Documentation Reason for Visit (should be Tobacco Use): Patient presents with: [id number] Navigation (Research) Tobacco use Phone numbers On 02/28/2024 the [id number] navigator called the patient, Vinod Ann. This is the 2nd call attempt. The patient was not reached at this time. This was attempt 1-4 to contact the patient. Patient informed that we are following up on on the text recently sent. Contact info given for patient to call back and informed that we will try calling again soon. No answer. LVM with call back number. [employer] Tobacco Cessation Navigator Outreach Encounter Documentation Reason for Visit (should be Tobacco Use): Patient presents with: [id number] Navigation (Research) Tobacco use Tobacco use Phone numbers On 03/03/2024 the [id number] navigator called the patient, Vinod Ann. This is the 3rd call attempt. The patient was contacted successfully. Introduced myself as a [id number] Patient Navigator from [employer]. Asked to speak with Vinod Ann Confirmed patient identity with two additional identifiers. Informed patient: My name is Makayla Spears and I am a [id number] patient Navigator from [employer]. You might remember that at a recent appointment with your primary provider, you expressed interest in quitting tobacco and in getting tools and supports to help you succeed. I am calling to connect you to resources to quit smoking. Asked: Do you have about 10 minutes now to make a personalized plan to support quitting tobacco? Is now OK? Vinod Ann opt out of receiving information to help her quit smoking. The patient did not provide enough time for CHW to ask if she would like to receive resources for future reference. She immediately hung up the phone after declining services. [facility] 02-21-2024 Miscellaneous Notes [id number] Tobacco Cessation Navigator Outreach Encounter Documentation Reason for Visit (should be Tobacco Use): Patient presents with: [id number] Navigation (Research) Phone numbers On 02/21/2024 the [id number] navigator called the patient, Vinod Ann. This is the 1st call attempt. The patient was not reached at this time. This was attempt 1-4 to contact the patient. Patient informed that we are following up on on the text recently sent. Contact info given for patient to call back and informed that we will try calling again soon. No answer. LVM with call back number. C2Q letter mailed. [id number] Tobacco Cessation Navigator Outreach Encounter Documentation Reason for Visit (should be Tobacco Use): Patient presents with: [id number] Navigation (Research) Tobacco use Phone numbers On 02/28/2024 the Ynjodm7Pawy navigator called the patient, Vinod Ann. This is the 2nd call attempt. The patient was not reached at this time. This was attempt 1-4 to contact the patient. Patient informed that we are following up on on the text recently sent. Contact info given for patient to call back and informed that we will try calling again soon. No answer. LVM with call back number. [employer] Tobacco Cessation Navigator Outreach Encounter Documentation Reason for Visit (should be Tobacco Use): Patient presents with: [id number] Navigation (Research) Tobacco use Tobacco use Phone numbers On 03/03/2024 the Uzreyx5Jpah navigator called the patient, Vinod Ann. This is the 3rd call attempt. The patient was contacted successfully. Introduced myself as a [id number] Patient Navigator from [facility]. Asked to speak with Vinod Ann Confirmed patient identity with two additional identifiers. Informed patient: My name is Makaylajoycelyn Spears and I am a [id number] patient Navigator from [facility]. You might remember that at a recent appointment with your primary provider, you expressed interest in quitting tobacco and in getting tools and supports to help you succeed. I am calling to connect you to resources to quit smoking. Asked: Do you have about 10 minutes now to make a personalized plan to support quitting tobacco? Is now OK? Vinod Ann opt out of receiving information to help her quit smoking. The patient did not provide enough time for CHW to ask if she would like to receive resources for future reference. She immediately hung up the phone after declining services. documented in this encounter [facility] 02-20-2024 Telephone encounter Note Attempted to contact patient. Left voicemail message on listed contact # to call [employer] [facility] at [phone]. Asked patient to reference #[phone] when calling back to our office. Ok to relay message below. Pt has not been seen in [facility] Is pt currently receiving care at [facility]? Can provider supply enough medication until pt is seen with new provider? If not pt will need to come in for an appt for med refill. [facility] 02-20-2024 Miscellaneous Notes Attempted to contact patient. Left voicemail message on listed contact # to call [employer] [facility] at [phone]. Asked patient to reference #99 when calling back to our office. Ok to relay message below. Pt has not been seen in Internal Medicine Clinic Is pt currently receiving care at [facility]? Can provider supply enough medication until pt is seen with new provider? If not pt will need to come in for an appt for med refill. Patient is requesting a medication listed under current medications as Historical. Please evaluate validity of therapy and forward to provider if appropriate. If not appropriate please contact the patient. Thank you. clonidine 0.1mg 1 tab hs Has appt 03-13-24 to [facility] documented in this encounter [facility] 02-20-2024 Telephone encounter Note Patient is requesting a medication listed under current medications as Historical. Please evaluate validity of therapy and forward to provider if appropriate. If not appropriate please contact the patient. Thank you. clonidine 0.1mg 1 tab hs Has appt 03-13-24 to [facility] 02-19-2024 Instructions Endy De Anda MD - 02/19/2024 1:30 PM EDT Get testing as ordered by Dr. De Anda F/U 4 weeks Smoking will damage your arteries further- a smoking cessation referral has been given The following attachments cannot be sent through Care Everywhere.Peripheral artery disease and claudication (Nepalese)documented in this encounter [facility] 02-19-2024 History of Present illness Narrative Images from the original note were not included. Chief Complaint: Referred by SHELDON (Donny) foot pain Evaluated in [place] with CTA Told she has a clot in her right leg & aorta Did not bring any documents or films VRF: Active smoker, dyslipidemia, hypertension. No DM, prior vascular surgery Past Medical History: Diagnosis Date Cholecystitis Depressed Stomach ulcer Current Outpatient Medications: rivaroxaban (Xarelto) 10 MG tablet, Take 10 mg by mouth., Disp: , Rfl: omeprazole (PRILOSEC) 40 MG capsule, Take 1 Capsule by mouth daily., Disp: 30 Capsule, Rfl: 3 chlorhexidine (PERIDEX) 0.12 % oral solution, Take 15 mL by mouth 2 times daily., Disp: 1 Bottle, Rfl: 3 ibuprofen (MOTRIN) 600 MG tablet, Take 1 Tab by mouth every 6 hours as needed for Pain. (Patient not taking: Reported on 02/19/2024), Disp: 90 Tab, Rfl: 3 Allergies Allergen Reactions Keflex [Cephalexin] Hives Zoloft Zyprexa [Olanzapine] States makes her agitated No family history on file. Social History Socioeconomic History Marital status: Single Tobacco Use Smoking status: Every Day Average packs/day: 2.0 packs/day for 4.3 years (8.6 total pack years) Types: Cigarettes Start date: 2019 Smokeless tobacco: Current Social Determinants of Health Food Insecurity: Food Insecurity Present (12/14/2023) Received from [facility] Hunger Vital Sign Worried About Running Out of Food in the Last Year: Sometimes true Ran Out of Food in the Last Year: Sometimes true Transportation Needs: Unmet Transportation Needs (12/14/2023) Received from [facility] PRAPARE - Transportation Lack of Transportation (Medical): Yes Lack of Transportation (Non-Medical): Yes Portions of record reviewed for pertinent issues: active problem list, medication list, allergies, and family history. Review Of Systems Skin: negative Eyes: negative review of symptoms Ears/Nose/Throat: negative Respiratory: negative symptoms (no cough, hemoptysis, SOB, TAFOYA, PND, wheezing) Cardiovascular: negative symptoms (No CP/Pressure/Tightness, palpitations, orthopnea, PND, SOB, ATFOYA, edema, MANUEL or vision change) Gastrointestinal: heartburn or reflux and dyspepsia Genitourinary: no urinary symptoms Musculoskeletal: negative (no arthritic pain, no joint swelling, no muscle weakness) Neurologic: negative symptoms (no syncope, seizures, weakness, gait problems, numbness, burning pain, tremors, or memory loss) Psychiatric: negative (no sleep disturbance, anxiety, memory loss, disorientation, inattention, feelings of depression) Hematologic/Lymphatic/Immunologi c: negative (no anemia, bleeding, bruising) Endocrine: negative review of symptoms PHYSICAL EXAMINATION: Blood Pressure 134/71 Pulse 124 Respiration 20 Weight 220 lb (99.8 kg) Oxygen Saturation 94% Comment: room air General appearance: healthy, alert, pleasant, mild distress, cooperative, oriented to time, place and person, obese Skin: Skin color, texture, turgor normal. No rashes or lesions. Head: Normocephalic. No masses, lesions, tenderness or abnormalities Eyes: negative Ears: External ears normal. Canals clear. TM's normal. Nose/Sinuses: Deferred Oropharynx: Deferred Neck: Neck supple. No adenopathy. Back: Back symmetric, no curvature. ROM normal. No CVA tenderness. Lungs: Good breath sounds; no wheezes, rales or rhonchi. Heart: RRR Abdomen: Obese Extremities: Extremities normal. No deformities, edema, or skin discoloration Musculoskeletal: Spine ROM normal. Muscular strength intact. Peripheral pulses:Palpable DP on left, non palpable pulses right. Both feet warm & pink Neuro: Intact and symmetric. ASSESSMENT / PLAN: PAD (peripheral artery disease) ([facility]) [[id number]] Vinod was seen today for new patient, to establish relationship. Diagnoses and all orders for this visit: PAD (peripheral artery disease) ([facility]) - VASCULAR VENOUS DUPLEX SCAN - VASCULAR PERIPHERAL ARTERIAL SCAN - VASCULAR SEGMENTAL PRESSURE Other orders - [id number] documented in this encounter [facility] 02-14-2024 Note Physician Triage Not e The patient was seen by me in intake for a brief history and physical obtained for triage reasons only. My exam is intended to be an initial medical screening exam for disposition within our ED with limited initial orders placed, when appropriate, to expedite care by the treating team. HIPAA: Verbal permission granted from patient to discuss case, including protected health information, in front of family/friends in room at the time of the evaluation. Patient complains of atruamatic right lower extremity swelling with acute onset. Focused Exam: Constitutional: Well developed, well nourished. Awake AND alert. No distress. Musculoskeletal: Moves all four extremities. No deformities. Right lower extremity swelling. Normal strength and sensation. Skin: Skin is warm and dry. No rashes on exposed skin. Neurological: Alert, awake, and appropriate. Normal speech. No acute focal neurological deficits are appreciated. The patient is deemed appropriate for west. Initial orders: US. The remainder of testing, treatment, and diagnostic plan will be assumed by the next clinician who will be seeing the patient as a primary patient, creating a plan and impression, and final disposition of the patient from the ED. I had a limited role in this case. PLEASE SEE OTHER ATTENDING/RESIDENT/PHYSICIAN/HAND SCRAPER /PA NOTATION ----- SCRIBE ATTESTATION ---- 02/14/2024 9:29 PM This note is prepared by Spencer Bautista acting as Scribe for Supriya Calzada. I personally performed the services described in this documentation, as scribed by Spencer Bautista in my presence, and it is both accurate and complete. Supriya Calzada. Note has been documented by Spencer Bautista on 02/14/2024 [facility] 02-14-2024 Note Physician Triage Not e The patient was seen by me in intake for a brief history and physical obtained for triage reasons only. My exam is intended to be an initial medical screening exam for disposition within our ED with limited initial orders placed, when appropriate, to expedite care by the treating team. HIPAA: Verbal permission granted from patient to discuss case, including protected health information, in front of family/friends in room at the time of the evaluation. Patient complains of atruamatic right lower extremity swelling with acute onset. Focused Exam: Constitutional: Well developed, well nourished. Awake AND alert. No distress. Head: Atraumatic. Eyes: Pupils are equal. No injected conjunctivae. No scleral icterus. ENT: Mucous membranes are moist. Neck: Normal movement. Supple. Cardiovascular: Well perfused. Pulmonary/Chest: No evidence of respiratory distress. Speaks in full sentences. Musculoskeletal: Moves all four extremities. No deformities. Right lower extremity swelling. Normal strength and sensation. Skin: Skin is warm and dry. No rashes on exposed skin. Neurological: Alert, awake, and appropriate. Normal speech. No acute focal neurological deficits are appreciated. Psychiatric: Good eye contact. Appropriate in content/context. Normal affect. The patient is deemed appropriate for west. Initial orders: US. The remainder of testing, treatment, and diagnostic plan will be assumed by the next clinician who will be seeing the patient as a primary patient, creating a plan and impression, and final disposition of the patient from the ED. I had a limited role in this case. PLEASE SEE OTHER ATTENDING/RESIDENT/PHYSICIAN/HAND SCRAPER /PA NOTATION ----- SCRIBE ATTESTATION ---- 02/14/2024 9:29 PM This note is prepared by Spencer Bautista acting as Scribe for Supriya Calzada. I personally performed the services described in this documentation, as scribed by Spencer Bautista in my presence, and it is both accurate and complete. Supriya Calzada. Note has been documented by Spencer Bautista on 02/14/2024 [facility] 02-13-2024 Evaluation note Type assessment Localized swelling, mass and lump, right lower limb assessment Essential (primary) hypertension on medication assessment Hyperlipidemia assessment Other obesity assessment Nicotine dependence, cigarettes, uncomplicated assessment Tobacco abuse counseling 2023 assessment Other fatigue assessment Pain in right leg assessment Body mass index [BMI] 37.0-37.9, adult [facility]04-10-2024 History of Present illness Narrative* Encounter Date Complaint History Of Prese nt Illness Right foot big toe pain/swelling Hypertension Risk factors inc lude family history HTN, gout or CAD, high salt intake, inactive lifestyle, obesity and smoking. Pertinent negatives include chest pain, claudication, confusion, diaphoresis, dyspnea, epistaxis, fatigue, headache, hematuria, irregular heartbeat/palpitations, nausea, tinnitus, transient weakness, tremor, visual disturbances and vomiting. Right leg swelling/pain The symp toms began 9 days ago and generally lasts 9 Days. The symptoms are reported as being moderate. The symptoms occur randomly. The location is right leg. Aggravating factors include nothing. Relieving factors include nothing. Associated symptoms include tenderness. Pertinent negatives include redness. The client states the symptoms are acute. annual exam Currently pregna nt: no. : 5. Parity: Term: 1. Pre-Term: 1. induced: 3. Livin. The client states using menopausal and tubal ligation for control. Patient's menses is absent. Positive for: breast discharge (side: skin lesi) and breast lump(s) (side: bilateral).Postmenopausal: Age: 45, Type: natural. Menopausal symptoms negative for: hot flashes, insomnia, night sweats and vaginal dryness. Pertinent negatives include abnormal bleeding (hematology), abnormal vaginal bleeding, anxiety, decreased libido, depression, difficulty falling sleep, dyspareunia, history of infertility, nocturia, sexual dysfunction, sleep disturbances, urinary incontinence, urinary urgency, vaginal discharge and vaginal itching. The client does use tobacco. Tobacco cessation has been discussed. Additional information: Does not want to quit smoking. COmplocated medical, psychiatric and substance history. Quit meth 6 months ago, Cocaine in 2018. Wants annual exam and pap and mammogram and STI testing.Notes skin bumps not healing on both breasts- she had abscesses benign years ago.. [facility]04-10-2024 Instructions* Date Instruction Additional Infor edin Get enough sleepEat nutritious dietDrink enough fluid Related to Other fatigue Life style modificat ion.Engage in aerobic exercise, or exercise 3 to 4 times weekly for at least 40 min. Walk for 150mins every weekDASH diet (Dietary Approaches to stop Hypertension) Eat reduced salty diet.Avoid smoking. Reduce alcohol intake (women- <3 beverages daily, men- <2 beverages dailyMonitor your blood pressure at home daily, keep a log and bring it with your next appointment.Take your blood pressure medications as directed.Weight loss is encouragedCall the office or call 911 if you start feeling dizzy or syncope, or have fainting spells.Follow- up in 12 weeks Related to Essential (primary) hypertension on medication Eat reduced fat and reduced calorie dietModerate aerobic exercise at least 4 times a week is encouraged Related to Other obesity Reduce high lipids a nd cholesterol diet, and saturated fat dietsExercise for 30 minutes , 3 to 4 times a week would help to increase your HDL which is the good cholesterol, and help to reduce the bad cholesterol. Total cholesterol consumption should be <200mg/day; and saturated fat less than 7% /dayDecrease carb intake to less than 50%Increase dietary fiber consumptionWeight loss is beneficial in controlling high cholesterol levelLimit alcoholTake medication as directed if you have been prescribed any; call the office if you start having muscle pain after starting statin-reducing medicationFollow-up in 3 months Related to Hyperlipidemia Giving encouragement to exercise Related to Body mass index [BMI] 37.0-37.9, adult Dietary management e ducation, guidance, and counseling Related to Body mass index [BMI] 37.0-37.9, adult 49 yo menopausal G5P 1131 New patient to the area, moved from [place], first visit to [place], has not seen PCP yet. No records available. Poor historian, medical history obtained to the best of our ability. Skin lesions on breasts at sites of prior abscesses. Diagnostic mammogram w ultrasound ordered Bilaterally. Pap w HPV reflex to ordered for unsure last pap, Prior LEEP approx 10 years ago. STI testing ordered per patient request. 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 No records available. Poor historian, medical history obtained to the best of our ability. Skin lesions on breasts at sites of prior abscesses. Diagnostic mammogram w ultrasound ordered Bilaterally. Pap w HPV reflex to ordered for unsure last pap, Prior LEEP approx 10 years ago. STI testing ordered per patient request. [facility] smoker not willing to quit, is in recovery from recent meth and remote cocaineUses alcohol and cannabis Related to NON healing skin lesions of breasts, bilateral [facility]04-04-2024 Evaluation note* Type Assessment Date assessment Encounter for screening for agustin gnant neoplasm of cervix assessment Unprotected sex assessment Contact w/ infection w/ a predominantly sexual mode of transmission assessment Encntr screen mammogram for agustin gnant neoplasm of breast assessment NON healing skin lesions of danni sts, bilateral assessment Other problems related to lifest yle assessment Personal history of cervical dys plasia assessment Personal history of colonic poly ps assessment Urge incontinence, on oxybutynin assessment Essential (primary) hypertension on medication assessment Bipolar disorder, un specified, on medication, has psych provider assessment history of Pre Cancer of oral ca vity assessment Tubal ligation status assessment Encounter for test, re sult negative assessment Prior LEEP 10 years ago 024 assessment Encounter for general correctional supervising cook exam w ith abnormal finding assessment Abnormal finding in urine impression I spent 25 total min utes in the care of this patient including but not limited to review of pertinent records, history, physical examination, order and interpretation of office tests/procedures, placement of diagnostic laboratory and radiology test orders, coordination of care, education and counseling of the patient, significant other, and family. [facility]04-04-2024 History of Present illness Narrative* Encounter Date Complaint History Of Prese nt Illness annual exam Currently pregna nt: no. : 5. Parity: Term: 1. Pre-Term: 1. induced: 3. Livin. The client states using menopausal and tubal ligation for control. Patient's menses is absent. Positive for: breast discharge (side: skin lesi) and breast lump(s) (side: bilateral).Postmenopausal: Age: 45, Type: natural. Menopausal symptoms negative for: hot flashes, insomnia, night sweats and vaginal dryness. Pertinent negatives include abnormal bleeding (hematology), abnormal vaginal bleeding, anxiety, decreased libido, depression, difficulty falling sleep, dyspareunia, history of infertility, nocturia, sexual dysfunction, sleep disturbances, urinary incontinence, urinary urgency, vaginal discharge and vaginal itching. The client does use tobacco. Tobacco cessation has been discussed. Additional information: Does not want to quit smoking. COmplocated medical, psychiatric and substance history. Quit meth 6 months ago, Cocaine in 2018. Wants annual exam and pap and mammogram and STI testing.Notes skin bumps not healing on both breasts- she had abscesses benign years ago.. [facility]04-04-2024 Instructions* Date Instruction Additional Stephenr edin 49 yo menopausal G5P 1131 New patient to the area, moved from [place], first visit to [facility], has not seen PCP yet. No records available. Poor historian, medical history obtained to the best of our ability. Skin lesions on breasts at sites of prior abscesses. Diagnostic mammogram w ultrasound ordered Bilaterally. Pap w HPV reflex to 1618/45 ordered for unsure last pap, Prior LEEP approx 10 years ago. STI testing ordered per patient request. 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 No records available. Poor historian, medical history obtained to the best of our ability. Skin lesions on breasts at sites of prior abscesses. Diagnostic mammogram w ultrasound ordered Bilaterally. Pap w HPV reflex to 1618/45 ordered for unsure last pap, Prior LEEP approx 10 years ago. STI testing ordered per patient request. Has psychiatric provider Luisa at [address] smoker not willing to quit, is in recovery from recent meth and remote cocaineUses alcohol and cannabis Related to NON healing skin lesions of breasts, bilateral [facility]04-01-2024 Hospital Discharge instructions* Discharge Instructions* Jose G Ward MD - 02/04/2024 10:12 AM EDT Procedures done during this visit: None * Attachments The following attachments cannot be sent through Care Everywhere. * What is a sleep study? (Nepalese) * Tooth Decay Discharge Instructions, Adult (Nepalese) documented in this encounterTHE [email or web address] [facility] Work Phone: [phone]) 229-477703-21-2024 Miscellaneous Notes* Telephone Encounter - Александр Saritha Vivienne - 01/24/2024 11:07 AM EDT Can be discussed at upcoming Appointment. * Telephone Encounter - Verona Kingsley - 01/24/2024 9:59 AM EDT Patient is calling requesting breast ultrasound orders be faxed to [facility]. She states this was to be for both breast. [facility] History of Present illness Narrative* Onel Dobbins DPM - 12/19/2023 6:15 PM EST HFU documented in this encounterThree [facility] [id number] History of Present illness Narrative* Luisa Gómez RN - 12/19/2023 1:04 PM EST Nurse to nurse called to [facility]. * Alyssa Garay RN - 12/19/2023 1:03 PM EST Registered Zio xt monitor for 14 days per physician order. Package Serial #[id number]. This RN register the device. Bedside RN applied device * Luisa Gómez RN - 12/19/2023 12:54 PM EST Zio patch XT applied to L chest. [facility] nurse field service manager will register device. * Luisa Gómez RN - 12/19/2023 12:01 PM EST Per nurse field service manager, EKG dept closed today. Called [facility] in regards to applying patient's Zio patch before discharge today. Copy of order, face sheet and optio labels in chart. * Nikita Wynne MD - 12/18/2023 3:42 PM EST [facility] Progress note HISTORY OF PRESENT ILLNESS: 48-year-old female with past medical history of alcohol abuse, breast abscess and drug abuse presents with vaginal abscess and discoloration of right great toe. History of drainage of the abscess in the past. Cardiology consulted for cardiac emboli as a source of discoloration of great toe. TTE negative for any vegetation plan for STEPHANIE. Lower extremity arterial Doppler studies ordered. 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 No pertinent surgical history. Current Medications: Scheduled Meds: gabapentin 200 mg Oral Nightly amoxicillin-clavulanate 1 tablet Oral 2 times per day miconazole 1 applicator Vaginal Nightly pantoprazole 40 mg Oral QAM AC rivaroxaban 20 mg Oral Daily with breakfast sodium chloride flush 5-40 mL IntraVENous 2 times per day aspirin 81 mg Oral Daily cilostazol 100 mg Oral BID Continuous Infusions: sodium chloride PRN Meds:hydrocortisone, melatonin, ketorolac, sodium chloride, sodium chloride flush, sodium chloride, potassium chloride OR potassium alternative oral replacement OR potassium chloride, magnesium sulfate, ondansetron OR ondansetron, senna, aluminum & magnesium hydroxide-simethicone, acetaminophen OR acetaminophen Allergies: Cephalexin, Sertraline hcl, Fenofibrate, Zyprexa [olanzapine], and Clindamycin Social History: Social History Socioeconomic History Marital status: Single Spouse name: None Number of children: None Years of education: None Highest education level: None Tobacco Use Smoking status: Every Day Current packs/day: 2.50 Types: Cigarettes Smokeless tobacco: Never Vaping Use Vaping Use: Some days Substances: Nicotine Substance and Sexual Activity Alcohol use: Not Currently Comment: last use 08-14-23 Drug use: Not Currently Types: Methamphetamines (Crystal Meth), Marijuana ([place]), Cocaine Comment: last used 08/14/23 Social Determinants of Health Food Insecurity: Food Insecurity Present (12/14/2023) Hunger Vital Sign Worried About Running Out of Food in the Last Year: Sometimes true Ran Out of Food in the Last Year: Sometimes true Transportation Needs: Unmet Transportation Needs (12/14/2023) PRAPARE - Transportation Lack of Transportation (Medical): Yes Lack of Transportation (Non-Medical): Yes Housing Stability: High Risk (12/14/2023) Housing Stability Vital Sign Unable to Pay for Housing in the Last Year: Yes Number of Places Lived in the Last Year: 2 Unstable Housing in the Last Year: Yes Tobacco: No Alcohol: No Pets: No Travel: No Family History: History reviewed. No pertinent family history.. Otherwise non-pertinent to the chief complaint. REVIEW OF SYSTEMS: CONSTITUTIONAL: No chills, fevers or night sweats. No loss of weight. EYES: No double vision or drainage from eyes, ears or throat. HEENT: No neck stiffness. No dysphagia. No drainage from eyes, ears or throat RESPIRATORY: No cough, productive sputum or hemoptysis. CARDIOVASCULAR: No chest pain, palpitations, orthopnea or dyspnea on exertion. GASTROINTESTINAL: No nausea, vomiting, diarrhea or constipation or hematochezia GENITOURINARY: No frequency burning dysuria or hematuria. INTEGUMENT/BREAST: No rash or breast masses. HEMATOLOGIC/LYMPHATIC: No lymphadenopathy or blood dyscrasics. ALLERGIC/IMMUNOLOGIC: No anaphylaxis. ENDOCRINE: No polyuria or polydipsia or temperature intolerance. MUSCULOSKELETAL: No myalgia or arthralgia. Full ROM. NEUROLOGICAL: No focal motor sensory deficit. BEHAVIOR/PSYCH: No psychosis. PHYSICAL EXAM: Vitals: BP 118/76 Pulse (!) 107 Temp 97.8 F (36.6 C) (Temporal) Resp 21 Ht 1.676 m (5' 6) Wt 96.6 kg (213 lb) SpO2 95% BMI 34.38 kg/m Constitutional: The patient is awake, alert, and oriented. Skin: Warm and dry. No rashes were noted. No jaundice. HEENT: Eyes show round, and reactive pupils. Moist mucous membranes, no ulcerations, no thrush. Neck: Supple to movements. No lymphadenopathy. Chest: No use of accessory muscles to breathe. Symmetrical expansion. Auscultation reveals no wheezing, crackles, or rhonchi. Bilateral breast tissue fibrous stranding without any clear abscess but nonhealing ulcers bilateral Cardiovascular: S1 and S2 are rhythmic and regular. No murmurs appreciated. Abdomen: Positive bowel sounds to auscultation. Benign to palpation. No masses felt. No hepatosplenomegaly. Genitourinary: No pain in the lower abdomen Extremities: No clubbing, no cyanosis, no edema. Musculoskeletal: No pain in range of motion of any joints Neurological: Following commands, no focal neurodeficit Lines: peripheral CBC+dif: No results for input(s): WBC, HGB, HCT, MCV, PLT, NEUTROABS in the last 72 hours. Lab Results Component Value Date CRP 13.0 (H) 12/14/2023 No results found for: CRPHS Lab Results Component Value Date SEDRATE 30 (H) 12/14/2023 Lab Results Component Value Date ALT 13 12/14/2023 AST 14 12/14/2023 ALKPHOS 82 12/14/2023 BILITOT 0.4 12/14/2023 Lab Results Component Value Date/Time NA 134 12/17/2023 05:08 AM K 3.5 12/17/2023 05:08 AM CL 99 12/17/2023 05:08 AM CO2 23 12/17/2023 05:08 AM BUN 6 12/17/2023 05:08 AM CREATININE 0.7 12/17/2023 05:08 AM LABGLOM >60 12/17/2023 05:08 AM GLUCOSE 178 12/17/2023 05:08 AM PROT 6.9 12/14/2023 04:57 AM LABALBU 3.8 12/14/2023 04:57 AM CALCIUM 8.9 12/17/2023 05:08 AM BILITOT 0.4 12/14/2023 04:57 AM ALKPHOS 82 12/14/2023 04:57 AM AST 14 12/14/2023 04:57 AM ALT 13 12/14/2023 04:57 AM No results found for: PROTIME, INR No results found for: TSH Lab Results Component Value Date/Time COLORU Yellow 12/13/2023 11:52 AM PHUR 6.5 12/13/2023 11:52 AM WBCUA 0 TO 5 12/13/2023 11:52 AM RBCUA 0 TO 2 12/13/2023 11:52 AM SPECGRAV <1.005 12/13/2023 11:52 AM LEUKOCYTESUR NEGATIVE 12/13/2023 11:52 AM UROBILINOGEN 0.2 12/13/2023 11:52 AM BILIRUBINUR NEGATIVE 12/13/2023 11:52 AM GLUCOSEU NEGATIVE 12/13/2023 11:52 AM No results found for: WTP5RHW, BEART, A0TKRILD, PHART, THGBART, XTY7JZD, PO2ART, HAU2PTD Radiology: US BREAST LIMITED Final Result 1. Irregular complex areas near the nipples bilaterally favored to represent complex fluid collections. Infected fluid collections are possible based on the appearance. Given the history of breast drainage, patient should undergo diagnostic mammography at some point. Considered BI-RADS 0 for mammography at this time given patient age and clinical history. CT CHEST W CONTRAST Final Result 1. Minimal intramural thrombus at the thoracoabdominal aortic junction without evidence for ulceration or periaortic hematoma. 2. Minimal calcifications at the left subclavian takeoff and at the distal descending thoracic aorta. 3. No acute pulmonary process. Mild heterogeneity suggesting respiratory bronchiolitis background chronic findings. XR FOOT RIGHT (MIN 3 VIEWS) Final Result No acute osseous abnormality. Prominent plantar calcaneal spur. Vascular lower extremity arterial segmental pressures w PPG Final Result CT ABDOMEN PELVIS W IV CONTRAST Additional Contrast? None Final Result 1. No evidence of groin or perineal abscess or focal inflammation. 2. Hepatic steatosis. 3. Mild diverticulosis. 4. Mild nonspecific intrahepatic bile duct dilatation as well as prominent diameter of the common bile duct possibly related to dysfunction at level of the ampulla. If clinically warranted, MRCP may be helpful for further evaluation. Microbiology: Pending No results for input(s): BC in the last 72 hours. No results for input(s): ORG in the last 72 hours. No results for input(s): BLOODCULT2 in the last 72 hours. No results for input(s): STREPNEUMAGU in the last 72 hours. No results for input(s): LP1UAG in the last 72 hours. No results for input(s): ASO in the last 72 hours. No results for input(s): CULTRESP in the last 72 hours. Assessment: Bilateral breast abscess which was drained long time ago but has fibrous tissue now with nonhealingulcer around both nipples Vaginal yeast infection without any obvious abscess Right great toe discoloration, TTE no vegetation Plan: Augmentin for 7 days Appreciate general surgery feedback. Chronic abscess of the breast, plan to rule out malignancy. Noinpatient surgical plan. Patient will follow-up with outpatient surgery. Vaginal clotrimazole cream Discussed with Dr. AU vascular and he is going to evaluate patient in a.m. for any need for revascularization STEPHANIE showed no vegetation ID will continue to follow Thank you for having us see this patient in consultation. I will be discussing this case with the treating physicians. * Melvin Solano DPM - 12/18/2023 11:59 AM EST Images from the original note were not included. Department of Podiatry Progress Note Subjective: Patient was away getting procedure done during visit. Will attempt to see later today. 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 No pertinent surgical history. Medications Prior to Admission: Medications Prior to Admission: Amoxicillin-Pot Clavulanate (AUGMENTIN PO), Take by mouth brompheniramine-pseudoephedrine 1-15 MG/5ML ELIX elixir, Take 5 mLs by mouth every 6 hours as needed rivaroxaban 15 & 20 MG Starter Pack, Take as directed on package. (Patient not taking: Reportedon 12/14/2023) rivaroxaban (XARELTO) 20 MG TABS tablet, Take 1 tablet by mouth daily (with breakfast) albuterol sulfate HFA (PROVENTIL;VENTOLIN;PROAIR) 108 (90 Base) MCG/ACT inhaler, amLODIPine (NORVASC) 2.5 MG tablet, Take 1 tablet by mouth daily amLODIPine (NORVASC) 5 MG tablet, Take 1 tablet by mouth daily ARIPiprazole (ABILIFY) 10 MG tablet, Cholecalciferol (VITAMIN D3) 1.25 MG (99806 UT) CAPS, cloNIDine (CATAPRES) 0.1 MG tablet, 2 times daily famotidine (PEPCID) 20 MG tablet, Take 1 tablet by mouth At bedtime as needed (Patient not taking: Reported on 12/12/2023) fluticasone (FLONASE) 50 MCG/ACT nasal spray, hydroCHLOROthiazide (HYDRODIURIL) 25 MG tablet, hydrOXYzine pamoate (VISTARIL) 50 MG capsule, ibuprofen (ADVIL;MOTRIN) 600 MG tablet, Take 1 tablet by mouth every 6 hours as needed (Patient nottaking: Reported on 12/12/2023) loratadine (CLARITIN) 10 MG tablet, Take 1 tablet by mouth daily meloxicam (MOBIC) 7.5 MG tablet, Take 1 tablet by mouth daily (Patient not taking: Reported on 12/12/2023) mirtazapine (REMERON) 30 MG tablet, Take 1 tablet by mouth nightly ofloxacin (FLOXIN) 0.3 % otic solution, Place 5 drops in ear(s) daily (Patient not taking: Reportedon 12/12/2023) omeprazole (PRILOSEC) 40 MG delayed release capsule, Take 1 capsule by mouth daily oxybutynin (DITROPAN XL) 15 MG extended release tablet, pregabalin (LYRICA) 25 MG capsule, risperiDONE (RISPERDAL) 0.5 MG tablet, Allergies: Cephalexin, Sertraline hcl, Fenofibrate, Zyprexa [olanzapine], and Clindamycin Social History: TOBACCO: reports that she has been smoking cigarettes. She has never used smokeless tobacco. ETOH: reports that she does not currently use alcohol. DRUGS: Social History Substance and Sexual Activity Drug Use Not Currently Types: Methamphetamines (Crystal Meth), Marijuana ([place]), Cocaine Comment: last used 08/14/23 Family History: History reviewed. No pertinent family history. REVIEW OF SYSTEMS: All pertinent positives and negatives as noted in HPI LOWER EXTREMITY EXAMINATION VASCULAR: DP and PT pulses are not palpable. CFT < 5 seconds B/L. Warm to cold from the tibial tuberosity to the distal aspect of the digits dorsally. Hair growth noted to the distal aspects dorsally. NEUROLOGIC: Protective sensation is diminished by grossly intact DERM: Right foot: Ischemic changes noted to the right 1st and 5th toes. Pain to palpation noted. No open lesions are hyperkeratotic tissue noted. MUSCULOSKELETAL: No deformities noted. 5/5 Gross Muscle strength in all 4 quadrants. CONSULTS: IP CONSULT TO SOCIAL WORK IP CONSULT TO INTERNAL MEDICINE IP CONSULT TO PODIATRY IP CONSULT TO VASCULAR SURGERY IP CONSULT TO CARDIOLOGY IP CONSULT TO LABORATORY EQUIPMENT CLEANER IP CONSULT TO LABORATORY EQUIPMENT CLEANER IP CONSULT TO INFECTIOUS DISEASES IP CONSULT TO GENERAL SURGERY MEDICATION: Scheduled Meds: amoxicillin-clavulanate 1 tablet Oral 2 times per day miconazole 1 applicator Vaginal Nightly pantoprazole 40 mg Oral QAM AC rivaroxaban 20 mg Oral Daily with breakfast sodium chloride flush 5-40 mL IntraVENous 2 times per day aspirin 81 mg Oral Daily cilostazol 100 mg Oral BID Continuous Infusions: sodium chloride PRN Meds:.hydrocortisone, melatonin, ketorolac, sodium chloride, sodium chloride flush, sodium chloride, potassium chloride OR potassium alternative oral replacement OR potassium chloride, magnesium sulfate, ondansetron OR ondansetron, senna, aluminum & magnesium hydroxide-simethicone, acetaminophen OR acetaminophen RADIOLOGY: US BREAST LIMITED Final Result 1. Irregular complex areas near the nipples bilaterally favored to represent complex fluid collections. Infected fluid collections are possible based on the appearance. Given the history of breast drainage, patient should undergo diagnostic mammography at some point. Considered BI-RADS 0 for mammography at this time given patient age and clinical history. CT CHEST W CONTRAST Final Result 1. Minimal intramural thrombus at the thoracoabdominal aortic junction without evidence for ulceration or periaortic hematoma. 2. Minimal calcifications at the left subclavian takeoff and at the distal descending thoracic aorta. 3. No acute pulmonary process. Mild heterogeneity suggesting respiratory bronchiolitis background chronic findings. XR FOOT RIGHT (MIN 3 VIEWS) Final Result No acute osseous abnormality. Prominent plantar calcaneal spur. Vascular lower extremity arterial segmental pressures w PPG Final Result CT ABDOMEN PELVIS W IV CONTRAST Additional Contrast? None Final Result 1. No evidence of groin or perineal abscess or focal inflammation. 2. Hepatic steatosis. 3. Mild diverticulosis. 4. Mild nonspecific intrahepatic bile duct dilatation as well as prominent diameter of the common bile duct possibly related to dysfunction at level of the ampulla. If clinically warranted, MRCP may be helpful for further evaluation. Vitals: BP 118/76 Pulse (!) 107 Temp 97.8 F (36.6 C) (Temporal) Resp 21 Ht 1.676 m (5' 6) Wt 96.6 kg (213 lb) SpO2 95% BMI 34.38 kg/m LABS: No results for input(s): WBC, HGB, HCT, PLT in the last 72 hours. Recent Labs 12/17/23 0508 NA 134 K 3.5 CL 99 CO2 23 BUN 6 CREATININE 0.7 No results for input(s): PROT, INR, APTT in the last 72 hours. ASSESSMENTS: -Blue toe syndrome -PVD -Ischemic right foot -Pain right foot -drug abuse PLAN: - Patient was examined and evaluated.Reviewed patient's recent lab results, charts and pertinent diagnostic imaging.Reviewed ancillary service notes. - Vascular: R SAVANNA 0.89, L SAVANNA 1.40. - Per Vascular: Pt being worked up from cardiology to evaluate for source of emboli. No vascular surgery interventions planned at this time. She should continue taking asa, pletal and xarelto - X-rays: No acute osseous abnormality. -Right foot has demarcated since admission. Patient to get STEPHANIE today. Will follow findings. Continue conservative management for now. - Will continue to follow patient while they are in-house. D/C Onel Dobbins DPM FACMERNA Fellowship-Trained Foot and Ankle Surgeon Diplomate, [place] [employer] [phone] Thank you for the opportunity to take part in the patient's care. Please do not hesitate to call for any questions or concerns. Melvin Solano Podiatry PGY2 12/18/2023 11:59 AM Associated attestation - Onel Dobbins DPM - 12/18/2023 5:25 PM EST Patient to get STEPHANIE Continue monitoring demarcation KWABENA Cash Fellowship-Trained Foot and Ankle Surgeon Diplomate, [place] [employer] [phone] * Aaliyah Alex MD - 12/18/2023 11:22 AM EST Images from the original note were not included. [facility] Progress Note Admitting Date and Time: 12/13/2023 3:16 PM had concerns including Abscess (Reports vaginal abscess. Reports hx of them in the past and has to have it drained. ). Admit Dx: General weakness [R53.1] History of substance abuse (HCC) [F19.11] Mental health problem [F48.9] Cellulitis, unspecified cellulitis site [L03.90] Synopsis: Ms. Vinod Ann, a 48 y.o. year old female who has a past medical history of Alcohol abuse, Breast abscess, and Drug abuse (HCC). presents with Abscess (Reports vaginal abscess. Reports hx of themin the past and has to have it drained, generalized weakness, over past week, followed by vascular surgery for PVD and discoloration of her rt toes, and started on xarelto, not able to take care of herself. No nausea or vomiting no chest pain or SOB no double vision or limb weakness. Has hx/o drug abuse and also concern of abscess to the groin. Admitted to the hospital for further care Subjective: Patient is being followed for General weakness [R53.1] History of substance abuse (HCC) [F19.11] Mental health problem [F48.9] Cellulitis, unspecified cellulitis site [L03.90] Patient was seen and examined. Complaint of a rash started last night No other new complaint. ROS: denies fever, chills, cp, sob, n/v, MANUEL unless stated above. gabapentin 200 mg Oral Nightly cloNIDine 0.1 mg Oral BID cetirizine 10 mg Oral Daily mirtazapine 30 mg Oral Nightly amoxicillin-clavulanate 1 tablet Oral 2 times per day miconazole 1 applicator Vaginal Nightly pantoprazole 40 mg Oral QAM AC rivaroxaban 20 mg Oral Daily with breakfast sodium chloride flush 5-40 mL IntraVENous 2 times per day aspirin 81 mg Oral Daily cilostazol 100 mg Oral BID diphenhydrAMINE, 25 mg, Q6H PRN hydrocortisone, , BID PRN melatonin, 3 mg, Nightly PRN ketorolac, 15 mg, Q6H PRN sodium chloride, 1 spray, PRN sodium chloride flush, 5-40 mL, PRN sodium chloride, , PRN potassium chloride, 40 mEq, PRN Or potassium alternative oral replacement, 40 mEq, PRN Or potassium chloride, 10 mEq, PRN magnesium sulfate, 2,000 mg, PRN ondansetron, 4 mg, Q8H PRN Or ondansetron, 4 mg, Q6H PRN senna, 1 tablet, Daily PRN aluminum & magnesium hydroxide-simethicone, 30 mL, Q6H PRN acetaminophen, 650 mg, Q6H PRN Or acetaminophen, 650 mg, Q6H PRN Objective: BP 118/76 Pulse (!) 107 Temp 97.8 F (36.6 C) (Temporal) Resp 21 Ht 1.676 m (5' 6) Wt 96.6 kg (213 lb) SpO2 95% BMI 34.38 kg/m General Appearance: alert and oriented to person, place and time and in no acute distress Skin: warm and dry, chronic breast wounds bilaterally Head: normocephalic and atraumatic Eyes: pupils equal, round, and reactive to light, extraocular eye movements intact, conjunctivae normal Neck: neck supple and non tender without mass Pulmonary/Chest: clear to auscultation bilaterally- no wheezes, rales or rhonchi, normal air movement, no respiratory distress Cardiovascular: normal rate, normal S1 and S2 and no carotid bruits Abdomen: soft, non-tender, non-distended, normal bowel sounds, no masses or organomegaly Extremities: blue discoloration of the right big toe Neurologic: no cranial nerve deficit and speech normal Recent Labs 12/16/23 0441 12/17/23 0508 NA 134 134 K 3.3* 3.5 CL 98 99 CO2 23 23 BUN 7 6 CREATININE 0.7 0.7 GLUCOSE 125* 178* CALCIUM 8.6 8.9 No results for input(s): WBC, RBC, HGB, HCT, MCV, MCH, MCHC, RDW, PLT, MPV in the last 72 hours. Images, labs, consultants recommendations and overnight events were noted and reviewed. 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 * RLE embolic ischemic foot pain Right common iliac thrombus Generalized weakness Podiatry and vascular on board no acute intervention, conservative management Continue cilatazole and Asprin Continue anticoagulation NSAIDS PRN Cardiology on board to find source of emboli, TTE/STEPHANIE unremarkable. Blood cultures negative, elevated inflammatory markers Unable to sleep, trial of gabapentin tonight No A-fib on telemetry Zio patch on discharge Fungal vaginitis Miconazole vaginal cream Chronic breast wounds bilaterally Going on for the last 5 years No fever or white count ID on board, Augmentin x 7 days Last mammogram 10/19/22 done at [facility], reviewed General surgery on board, no plans for drainage at this time. Rule out malignancy outpatient, will follow-up with breast surgeon outpatient Known hx of Drug use Monitor Hypertension, resuming home clonidine Holding amlodipine and hydrochlorothiazide, can resume if needed Rash Lower abdomen/upper thigh Augmentin? Benadryl and hydrocortisone cream prn. Discharge planning: Matthew pre-CERT pending, Zio patch on discharge. Discussed with case management. Patient stable for discharge. NOTE: This report was transcribed using voice recognition software. Every effort was made to ensureaccuracy; however, inadvertent computerized it application development manager errors may be present. * Michele Roberson RN - 12/18/2023 10:17 AM EST Report called to floor destiny solomon * Angela Diego MD - 12/18/2023 7:11 AM EST Images from the original note were not included. Inpatient Cardiology Progress note SUBJECTIVE: Seen and examined at bedside. No chest pain or SOB. Right foot discoloration improving but still painful Denies having chest pain or shortness of breath. No significant arrhythmia seen on telemetry. Occasional PACs. No atrial fibrillation. Underwent STEPHANIE today. Results summarized below. OBJECTIVE: No apparent distress PHYSICAL EXAM: BP 109/83 Pulse 82 Temp 98.2 F (36.8 C) (Oral) Resp 18 Ht 1.676 m (5' 6) Wt 96.6 kg (213lb) SpO2 98% BMI 34.38 kg/m B/P Range last 24 hours: Systolic (24hrs), Av , Min:109 , Max:135 Diastolic (24hrs), Av, Min:72, Max:83 GENERAL: NAD HEAD: Normocephalic, atraumatic. NECK: No JVD. No carotid bruits. No neck masses. CARDIOVASCULAR: Normal rate, regular rhythm, normal S1, S2, no MRG LUNGS: Clear to auscultation bilaterally, no wheezing. ABDOMEN: Abdomen is soft and not distended. No tenderness. EXTREMITIES: There is no pedal edema. There is right big toe dark discoloration MUSCULOSKELETAL: No joint swelling. Normal range of motion SKIN: Skin is moist. No ulcers or lesions. NEUROLOGICAL: No evidence of obvious neurological deficits. PSYCHOLOGICAL: Patient is in normal mood. No intake or output data in the 24 hours ending 12/18/23 0711 Weight: Wt Readings from Last 3 Encounters: 12/18/23 96.6 kg (213 lb) 11/28/23 97.5 kg (215 lb) 10/19/23 97.1 kg (214 lb) Current Inpatient Medications: amoxicillin-clavulanate 1 tablet Oral 2 times per day miconazole 1 applicator Vaginal Nightly pantoprazole 40 mg Oral QAM AC rivaroxaban 20 mg Oral Daily with breakfast sodium chloride flush 5-40 mL IntraVENous 2 times per day aspirin 81 mg Oral Daily cilostazol 100 mg Oral BID IV Infusions (if any): sodium chloride DIAGNOSTIC/ LABORATORY DATA: Labs: CBC: No results for input(s): WBC, HGB, HCT, PLT in the last 72 hours. BMP: Recent Labs 12/16/23 0441 12/17/23 0508 NA 134 134 K 3.3* 3.5 CO2 23 23 BUN 7 6 CREATININE 0.7 0.7 LABGLOM >60 >60 CALCIUM 8.6 8.9 Mag: No results for input(s): MG in the last 72 hours. Phos: No results for input(s): PHOS in the last 72 hours. TFT: No results found for: TSH, F7SYVVB, I4NQPQT, THYROIDAB, FT3, T4FREE HgA1c: No results found for: LABA1C No results found for: EAG BNP: No results for input(s): BNP in the last 72 hours. PT/INR: No results for input(s): PROTIME, INR in the last 72 hours. APTT:No results for input(s): APTT in the last 72 hours. CARDIAC ENZYMES:No results for input(s): CKTOTAL, CKMB, CKMBINDEX, TROPHS in the last 72 hours. FASTING LIPID PANEL:No results found for: CHOL, HDL, LDLDIRECT, LDLCALC, TRIG LIVER PROFILE: No results for input(s): AST, ALT, LABALBU in the last 72 hours. Pertinent imaging studies: -TTE 12/14/2023: No gross evidence of intracardiac mass or thrombus. Interatrial Septum: Interatrial septum was not well visualized. No interatrial shunt visualized with color Doppler. Left Ventricle: Normal left ventricular systolic function with EF 55%. Left ventricle size is normal. Findings consistent with mild concentric hypertrophy. Normal wall motion. Normal diastolic function. Aortic Valve: No significant stenosis. Tricuspid Valve: Trace regurgitation., RVSP 32mmHg. Image quality is adequate. -ECG 10/26/2023: Personally reviewed, normal sinus rhythm, no ST-T wave changes. STEPHANIE 12/17/23: Left Ventricle: The EF by visual approximation is 60 - 65%. Aortic Valve: Mildly calcified cusp. Left Atrium: Normal appendage flow velocity. No left atrial appendage thrombus noted. Interatrial Septum: Agitated saline study was negative with and without provocation. Aorta: Mild focal atherosclerosis seen in the descending aorta. No evidence of intracardiac thrombus or intracardiac shunting. Image quality is adequate. Impression/Plan: 48 yo F with PMH of HTN, HLD, borderline DM, polysubstance abuse, tobacco abuse who presented to the hospital with vaginal/groin abscess, also has right common iliac thrombus with right big toe dark discoloration, vascular surgery following, requesting cardiac evaluation for cardiac source of emboli. Patient denies having any chest pain, shortness of breath or dyspnea on exertion, neither now nor in the past. She reports that she had her left lower leg swollen over the last month Right common iliac thrombus: Evaluating for cardiac source of emboli TTE with normal limits STEPHANIE as above. No evidence of intracardiac thrombus/ shunting. Keep patient on telemetry Obtain Zio patch upon discharge to evaluate for possible occult atrial arrythmias-2 week XT. Smoking cessation counseling provided. She expressed understanding. Initiated on anticoagulation. Also on aspirin and Pletal. Blood pressure appears to be stable overall Counseled about dietary and lifestyle modifications. We will be available as needed. Please call with questions. Angela Diego MD, [facility] NOTE: This report was transcribed using voice recognition software. Every effort was made to ensureaccuracy; however, inadvertent computerized it application development manager errors may be present. * Nikita Wynne MD - 12/17/2023 2:28 PM EST [facility] Progress note HISTORY OF PRESENT ILLNESS: 48-year-old female with past medical history of alcohol abuse, breast abscess and drug abuse presents with vaginal abscess and discoloration of right great toe. History of drainage of the abscess in the past. Cardiology consulted for cardiac emboli as a source of discoloration of great toe. TTE negative for any vegetation plan for STEPHANIE. Lower extremity arterial Doppler studies ordered. 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 No pertinent surgical history. Current Medications: Scheduled Meds: amoxicillin-clavulanate 1 tablet Oral 2 times per day miconazole 1 applicator Vaginal Nightly pantoprazole 40 mg Oral QAM AC rivaroxaban 20 mg Oral Daily with breakfast sodium chloride flush 5-40 mL IntraVENous 2 times per day aspirin 81 mg Oral Daily cilostazol 100 mg Oral BID Continuous Infusions: sodium chloride PRN Meds:sodium chloride, sodium chloride flush, sodium chloride, potassium chloride OR potassium alternative oral replacement OR potassium chloride, magnesium sulfate, ondansetron OR ondansetron, senna, aluminum & magnesium hydroxide-simethicone, acetaminophen OR acetaminophen Allergies: Cephalexin, Sertraline hcl, Fenofibrate, Zyprexa [olanzapine], and Clindamycin Social History: Social History Socioeconomic History Marital status: Single Spouse name: None Number of children: None Years of education: None Highest education level: None Tobacco Use Smoking status: Every Day Current packs/day: 2.50 Types: Cigarettes Smokeless tobacco: Never Vaping Use Vaping Use: Some days Substances: Nicotine Substance and Sexual Activity Alcohol use: Not Currently Comment: last use 08-14-23 Drug use: Not Currently Types: Methamphetamines (Crystal Meth), Marijuana ([place]), Cocaine Comment: last used 08/14/23 Social Determinants of Health Food Insecurity: Food Insecurity Present (12/14/2023) Hunger Vital Sign Worried About Running Out of Food in the Last Year: Sometimes true Ran Out of Food in the Last Year: Sometimes true Transportation Needs: Unmet Transportation Needs (12/14/2023) PRAPARE - Transportation Lack of Transportation (Medical): Yes Lack of Transportation (Non-Medical): Yes Housing Stability: High Risk (12/14/2023) Housing Stability Vital Sign Unable to Pay for Housing in the Last Year: Yes Number of Places Lived in the Last Year: 2 Unstable Housing in the Last Year: Yes Tobacco: No Alcohol: No Pets: No Travel: No Family History: History reviewed. No pertinent family history.. Otherwise non-pertinent to the chief complaint. REVIEW OF SYSTEMS: CONSTITUTIONAL: No chills, fevers or night sweats. No loss of weight. EYES: No double vision or drainage from eyes, ears or throat. HEENT: No neck stiffness. No dysphagia. No drainage from eyes, ears or throat RESPIRATORY: No cough, productive sputum or hemoptysis. CARDIOVASCULAR: No chest pain, palpitations, orthopnea or dyspnea on exertion. GASTROINTESTINAL: No nausea, vomiting, diarrhea or constipation or hematochezia GENITOURINARY: No frequency burning dysuria or hematuria. INTEGUMENT/BREAST: No rash or breast masses. HEMATOLOGIC/LYMPHATIC: No lymphadenopathy or blood dyscrasics. ALLERGIC/IMMUNOLOGIC: No anaphylaxis. ENDOCRINE: No polyuria or polydipsia or temperature intolerance. MUSCULOSKELETAL: No myalgia or arthralgia. Full ROM. NEUROLOGICAL: No focal motor sensory deficit. BEHAVIOR/PSYCH: No psychosis. PHYSICAL EXAM: Vitals: BP 122/78 Pulse 96 Temp 97.7 F (36.5 C) (Oral) Resp 18 Ht 1.676 m (5' 6) Wt 97.5 kg (215lb) SpO2 97% BMI 34.70 kg/m Constitutional: The patient is awake, alert, and oriented. Skin: Warm and dry. No rashes were noted. No jaundice. HEENT: Eyes show round, and reactive pupils. Moist mucous membranes, no ulcerations, no thrush. Neck: Supple to movements. No lymphadenopathy. Chest: No use of accessory muscles to breathe. Symmetrical expansion. Auscultation reveals no wheezing, crackles, or rhonchi. Bilateral breast tissue fibrous stranding without any clear abscess but nonhealing ulcers bilateral Cardiovascular: S1 and S2 are rhythmic and regular. No murmurs appreciated. Abdomen: Positive bowel sounds to auscultation. Benign to palpation. No masses felt. No hepatosplenomegaly. Genitourinary: No pain in the lower abdomen Extremities: No clubbing, no cyanosis, no edema. Musculoskeletal: No pain in range of motion of any joints Neurological: Following commands, no focal neurodeficit Lines: peripheral CBC+dif: No results for input(s): WBC, HGB, HCT, MCV, PLT, NEUTROABS in the last 72 hours. Lab Results Component Value Date CRP 13.0 (H) 12/14/2023 No results found for: CRPHS Lab Results Component Value Date SEDRATE 30 (H) 12/14/2023 Lab Results Component Value Date ALT 13 12/14/2023 AST 14 12/14/2023 ALKPHOS 82 12/14/2023 BILITOT 0.4 12/14/2023 Lab Results Component Value Date/Time NA 134 12/17/2023 05:08 AM K 3.5 12/17/2023 05:08 AM CL 99 12/17/2023 05:08 AM CO2 23 12/17/2023 05:08 AM BUN 6 12/17/2023 05:08 AM CREATININE 0.7 12/17/2023 05:08 AM LABGLOM >60 12/17/2023 05:08 AM GLUCOSE 178 12/17/2023 05:08 AM PROT 6.9 12/14/2023 04:57 AM LABALBU 3.8 12/14/2023 04:57 AM CALCIUM 8.9 12/17/2023 05:08 AM BILITOT 0.4 12/14/2023 04:57 AM ALKPHOS 82 12/14/2023 04:57 AM AST 14 12/14/2023 04:57 AM ALT 13 12/14/2023 04:57 AM No results found for: PROTIME, INR No results found for: TSH Lab Results Component Value Date/Time COLORU Yellow 12/13/2023 11:52 AM PHUR 6.5 12/13/2023 11:52 AM WBCUA 0 TO 5 12/13/2023 11:52 AM RBCUA 0 TO 2 12/13/2023 11:52 AM SPECGRAV <1.005 12/13/2023 11:52 AM LEUKOCYTESUR NEGATIVE 12/13/2023 11:52 AM UROBILINOGEN 0.2 12/13/2023 11:52 AM BILIRUBINUR NEGATIVE 12/13/2023 11:52 AM GLUCOSEU NEGATIVE 12/13/2023 11:52 AM No results found for: LLW2QTD, BEART, C9LNRVSV, PHART, THGBART, ZXX1OMT, PO2ART, BQO4TFP Radiology: US BREAST LIMITED Final Result 1. Irregular complex areas near the nipples bilaterally favored to represent complex fluid collections. Infected fluid collections are possible based on the appearance. Given the history of breast drainage, patient should undergo diagnostic mammography at some point. Considered BI-RADS 0 for mammography at this time given patient age and clinical history. CT CHEST W CONTRAST Final Result 1. Minimal intramural thrombus at the thoracoabdominal aortic junction without evidence for ulceration or periaortic hematoma. 2. Minimal calcifications at the left subclavian takeoff and at the distal descending thoracic aorta. 3. No acute pulmonary process. Mild heterogeneity suggesting respiratory bronchiolitis background chronic findings. XR FOOT RIGHT (MIN 3 VIEWS) Final Result No acute osseous abnormality. Prominent plantar calcaneal spur. Vascular lower extremity arterial segmental pressures w PPG Final Result CT ABDOMEN PELVIS W IV CONTRAST Additional Contrast? None Final Result 1. No evidence of groin or perineal abscess or focal inflammation. 2. Hepatic steatosis. 3. Mild diverticulosis. 4. Mild nonspecific intrahepatic bile duct dilatation as well as prominent diameter of the common bile duct possibly related to dysfunction at level of the ampulla. If clinically warranted, MRCP may be helpful for further evaluation. Microbiology: Pending No results for input(s): BC in the last 72 hours. No results for input(s): ORG in the last 72 hours. No results for input(s): BLOODCULT2 in the last 72 hours. No results for input(s): STREPNEUMAGU in the last 72 hours. No results for input(s): LP1UAG in the last 72 hours. No results for input(s): ASO in the last 72 hours. No results for input(s): CULTRESP in the last 72 hours. Assessment: Bilateral breast abscess which was drained long time ago but has fibrous tissue now with nonhealingulcer around both nipples Vaginal yeast infection without any obvious abscess Right great toe discoloration, TTE no vegetation Plan: Augmentin for 7 days Appreciate general surgery feedback. Chronic abscess of the breast, plan to rule out malignancy. Noinpatient surgical plan. Patient will follow-up with outpatient surgery. Vaginal clotrimazole cream Discussed with Dr. AU vascular and he is going to evaluate patient in a.m. for any need for revascularization Plan for STEPHANIE ID will continue to follow Thank you for having us see this patient in consultation. I will be discussing this case with the treating physicians. * Melvin Solano DPM - 12/17/2023 11:15 AM EST Images from the original note were not included. Department of Podiatry Progress Note Subjective: Patient was seen by bedside for follow up of the right toe pain and discoloration. Patient denies any N/V/D/F/C/SOB/CP and has no other pedal complaints at this time. 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) 12/14/2023 Involving the right great toe and the fourth toe Breast abscess Drug abuse (HCC) History of drug abuse ([facility]) 12/14/2023 Meth and cocaine, last time 4 months ago Tibial artery occlusion, left ([facility]) 12/14/2023 Left tibioperoneal trunk thrombus, CTA December 08, 2023 Tibial artery occlusion, right ([facility]) 12/14/2023 Of the posterior tibial artery with reconstitution in the calf, also occlusion of the peroneal artery, CTA, 08 December 2023 Tobacco dependence 12/14/2023 Past Surgical History: History reviewed. No pertinent surgical history. Medications Prior to Admission: Medications Prior to Admission: Amoxicillin-Pot Clavulanate (AUGMENTIN PO), Take by mouth brompheniramine-pseudoephedrine 1-15 MG/5ML ELIX elixir, Take 5 mLs by mouth every 6 hours as needed rivaroxaban 15 & 20 MG Starter Pack, Take as directed on package. (Patient not taking: Reportedon 12/14/2023) rivaroxaban (XARELTO) 20 MG TABS tablet, Take 1 tablet by mouth daily (with breakfast) albuterol sulfate HFA (PROVENTIL;VENTOLIN;PROAIR) 108 (90 Base) MCG/ACT inhaler, amLODIPine (NORVASC) 2.5 MG tablet, Take 1 tablet by mouth daily amLODIPine (NORVASC) 5 MG tablet, Take 1 tablet by mouth daily ARIPiprazole (ABILIFY) 10 MG tablet, Cholecalciferol (VITAMIN D3) 1.25 MG (00471 UT) CAPS, cloNIDine (CATAPRES) 0.1 MG tablet, 2 times daily famotidine (PEPCID) 20 MG tablet, Take 1 tablet by mouth At bedtime as needed (Patient not taking: Reported on 12/12/2023) fluticasone (FLONASE) 50 MCG/ACT nasal spray, hydroCHLOROthiazide (HYDRODIURIL) 25 MG tablet, hydrOXYzine pamoate (VISTARIL) 50 MG capsule, ibuprofen (ADVIL;MOTRIN) 600 MG tablet, Take 1 tablet by mouth every 6 hours as needed (Patient nottaking: Reported on 12/12/2023) loratadine (CLARITIN) 10 MG tablet, Take 1 tablet by mouth daily meloxicam (MOBIC) 7.5 MG tablet, Take 1 tablet by mouth daily (Patient not taking: Reported on 12/12/2023) mirtazapine (REMERON) 30 MG tablet, Take 1 tablet by mouth nightly ofloxacin (FLOXIN) 0.3 % otic solution, Place 5 drops in ear(s) daily (Patient not taking: Reportedon 12/12/2023) omeprazole (PRILOSEC) 40 MG delayed release capsule, Take 1 capsule by mouth daily oxybutynin (DITROPAN XL) 15 MG extended release tablet, pregabalin (LYRICA) 25 MG capsule, risperiDONE (RISPERDAL) 0.5 MG tablet, Allergies: Cephalexin, Sertraline hcl, Fenofibrate, Zyprexa [olanzapine], and Clindamycin Social History: TOBACCO: reports that she has been smoking cigarettes. She has never used smokeless tobacco. ETOH: reports that she does not currently use alcohol. DRUGS: Social History Substance and Sexual Activity Drug Use Not Currently Types: Methamphetamines (Crystal Meth), Marijuana ([place]), Cocaine Comment: last used 08/14/23 Family History: History reviewed. No pertinent family history. REVIEW OF SYSTEMS: All pertinent positives and negatives as noted in HPI LOWER EXTREMITY EXAMINATION VASCULAR: DP and PT pulses are not palpable. CFT < 5 seconds B/L. Warm to cold from the tibial tuberosity to the distal aspect of the digits dorsally. Hair growth noted to the distal aspects dorsally. NEUROLOGIC: Protective sensation is diminished by grossly intact DERM: Right foot: Ischemic changes noted to the right 1st and 5th toes. Pain to palpation noted. No open lesions are hyperkeratotic tissue noted. MUSCULOSKELETAL: No deformities noted. 03/09 Gross Muscle strength in all 4 quadrants. CONSULTS: IP CONSULT TO SOCIAL WORK IP CONSULT TO INTERNAL MEDICINE IP CONSULT TO PODIATRY IP CONSULT TO VASCULAR SURGERY IP CONSULT TO CARDIOLOGY IP CONSULT TO LABORATORY EQUIPMENT CLEANER IP CONSULT TO LABORATORY EQUIPMENT CLEANER IP CONSULT TO INFECTIOUS DISEASES IP CONSULT TO GENERAL SURGERY MEDICATION: Scheduled Meds: amoxicillin-clavulanate 1 tablet Oral 2 times per day miconazole 1 applicator Vaginal Nightly pantoprazole 40 mg Oral QAM AC rivaroxaban 20 mg Oral Daily with breakfast sodium chloride flush 5-40 mL IntraVENous 2 times per day aspirin 81 mg Oral Daily cilostazol 100 mg Oral BID Continuous Infusions: sodium chloride PRN Meds:.sodium chloride, sodium chloride flush, sodium chloride, potassium chloride OR potassium alternative oral replacement OR potassium chloride, magnesium sulfate, ondansetron OR ondansetron, senna, aluminum & magnesium hydroxide-simethicone, acetaminophen OR acetaminophen RADIOLOGY: US BREAST LIMITED Final Result 1. Irregular complex areas near the nipples bilaterally favored to represent complex fluid collections. Infected fluid collections are possible based on the appearance. Given the history of breast drainage, patient should undergo diagnostic mammography at some point. Considered BI-RADS 0 for mammography at this time given patient age and clinical history. CT CHEST W CONTRAST Final Result 1. Minimal intramural thrombus at the thoracoabdominal aortic junction without evidence for ulceration or periaortic hematoma. 2. Minimal calcifications at the left subclavian takeoff and at the distal descending thoracic aorta. 3. No acute pulmonary process. Mild heterogeneity suggesting respiratory bronchiolitis background chronic findings. XR FOOT RIGHT (MIN 3 VIEWS) Final Result No acute osseous abnormality. Prominent plantar calcaneal spur. Vascular lower extremity arterial segmental pressures w PPG Final Result CT ABDOMEN PELVIS W IV CONTRAST Additional Contrast? None Final Result 1. No evidence of groin or perineal abscess or focal inflammation. 2. Hepatic steatosis. 3. Mild diverticulosis. 4. Mild nonspecific intrahepatic bile duct dilatation as well as prominent diameter of the common bile duct possibly related to dysfunction at level of the ampulla. If clinically warranted, MRCP may be helpful for further evaluation. Vitals: BP 122/78 Pulse 96 Temp 97.7 F (36.5 C) (Oral) Resp 18 Ht 1.676 m (5' 6) Wt 97.5 kg (215lb) SpO2 97% BMI 34.70 kg/m LABS: Recent Labs 12/14/23 1349 WBC 9.2 HGB 13.7 HCT 41.5 PLT 381 Recent Labs 12/17/23 0508 NA 134 K 3.5 CL 99 CO2 23 BUN 6 CREATININE 0.7 No results for input(s): PROT, INR, APTT in the last 72 hours. ASSESSMENTS: -Blue toe syndrome -PVD -Ischemic right foot -Pain right foot -drug abuse PLAN: - Patient was examined and evaluated.Reviewed patient's recent lab results, charts and pertinent diagnostic imaging.Reviewed ancillary service notes. - Vascular: R SAVANNA 0.89, L SAVANNA 1.40. - Per Vascular: Pt being worked up from cardiology to evaluate for source of emboli. No vascular surgery interventions planned at this time. She should continue taking asa, pletal and xarelto - X-rays: No acute osseous abnormality. -Right foot has demarcated since admission. Patient to get STEPHANIE tomorrow. Will follow findings. Continue conservative management for now. - Will continue to follow patient while they are in-house. D/C Onel Dobbins DPM FACFAS Fellowship-Trained Foot and Ankle Surgeon Diplomate, [place] [employer] [phone] Thank you for the opportunity to take part in the patient's care. Please do not hesitate to call for any questions or concerns. Melvin Solano Podiatry PGY2 12/17/2023 11:16 AM Associated attestation - Onel Dobbins DPM - 12/17/2023 11:42 AM EST Continue monitoring for demarcation For STEPHANIE today Will eventually need toe amputation once demarcated going forward Onel Dobbins DPM FACFAS Fellowship-Trained Foot and Ankle Surgeon Diplomate, [place] [employer] [phone] * Naina Amador, PT - 12/17/2023 11:07 AM EST Physical Therapy Treatment note Name: Vinod Ann : 1975 Date of Service: 12/17/2023 Evaluating PT: Robi Farris PT, DPT [id number] Room #: 8408/8408-B Diagnosis: General weakness [R53.1] History of substance abuse (HCC) [F19.11] Mental health problem [F48.9] Cellulitis, unspecified cellulitis site [L03.90] PMHx/PSHx: has a past medical history of Alcohol abuse, 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 Procedure/Surgery: Precautions: Falls, Alarms/cognition, R great toe pain/hypersensitivity Equipment Needs: WW SUBJECTIVE: Pt was a questionable historian. Pt lives in sober living in a 2 story home. Bed is on second floorand bath is on second floor. Pt ambulated with ww independently [employer] ADVISOR. Equipment Owned: OBJECTIVE: Initial Evaluation Date: 12/14/23 Treatment Date: 12/17/23 Short Term/ Loan Collector Goals AM-PAC 6 Clicks Was pt agreeable to Eval/treatment? Yes Yes Does pt have pain? Mild BLE pain, Severe R big toe pain Moderate R great toe pain Bed Mobility Rolling: SBA Supine to sit: SBA Sit to supine: SBA Scooting: SBA Rolling: supervision Supine to sit: Supervision Sit to supine: Supervision Scooting: Supervision Rolling: Independent Supine to sit: Independent Sit to supine: Independent Scooting: Independent Transfers Sit to stand: SBA Stand to sit: SBA Stand pivot: SBA with ww Sit to stand: SBA Stand to sit: SBA Stand pivot: SBA with ww Sit to stand: Supervision Stand to sit: Supervision Stand pivot: Supervision Ambulation 10 feet with SBA ww 50' x4 reps with WW and SBA 100 feet with ww Supervision Stair negotiation: ascended and descended NT NT d/t pain 4 steps with single rail Supervision ROM BUE: Defer to OT BLE: WNL NT Strength BUE: Defer to OT BLE: 4/5 NT Improve 1 MMT Balance Sitting EOB: SBA Dynamic Standing: SBA with ww Sitting EOB: supervision Dynamic Standing: SBA with ww Sitting EOB: Supervision Dynamic Standing: Supervision Pt is A & O x 3-4. Pt follows all commands. Sensation: Pt denies numbness and tingling to extremities Edema: R foot Vitals: HR and SpO2 WNL this date. Therapeutic Exercises: NA Patient education Pt educated on safety with all mobility, appropriate WW use. Patient response to education: Pt verbalized understanding Pt demonstrated skill Pt requires further education in this area Yes Yes Reinforce ASSESSMENT: Comments: Pt received in supine and agreeable to PT treatment upon arrival. Vascular physician present at beginning of session, continue POC. Pt cleared per RN for participation. Pt ambulated increased distances in hallway today with WW. Pt ambulating primarily on hindfoot d/t R great toe pain. Pt requires cues for appropriate WW use and safety with device. PT recommends WW as pt presents with R antalgic gait. Pt completed transfers from various surface heights this session. Pt left in bedside chair with chair alarm activated at end of session with all needs in place and lines managed. Patient would benefit from continued skilled PT to maximize functional mobility independence. Treatment: Patient practiced and was instructed in the following treatment: Bed Mobility: Verbal cues for proper positioning and sequencing to perform bed mobility to facilitate maximum independence. Transfers: Verbal cues for proper positioning and sequencing to perform transfers safely with maximum independence. Gait Training: Verbal cues for proper positioning and sequencing using assistive device to maximizefunctional mobility independence. Pt education for appropriate WW use. Vitals and symptoms monitored during session. PLAN: Patient is making good progress towards established goals. Will continue with current POC. Time in 0920 Time out 0943 Total Treatment Time 23 minutes CPT codes: [] Gait training 35225 0 minutes [] Manual therapy 55564 0 minutes [x] Therapeutic activities 51354 23 minutes [] Therapeutic exercises 63907 0 minutes [] Neuromuscular reeducation 89396 0 minutes Naina Amador PT, DPT [id number] * Juliana Pedraza MD - 12/17/2023 10:09 AM EST Vascular Surgery Progress Note CC: Right foot pain HISTORY: The patient is awake, alert, and oriented. Persistent pain in right foot. IMPRESSION: 48 y female with RLE embolic ischemic foot pain. Overall her foot is actually even improved from when I saw her last week in the office. PLAN: Continue anticoagulation. Await STEPHANIE tomorrow. 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 General weakness R53.1 Cellulitis L03.90 Embolism of right iliac artery ([facility]) I74.5 Tibial artery occlusion, right ([facility]) I70.201 Tibial artery occlusion, left ([facility]) I70.202 Tobacco dependence F17.200 History of drug abuse ([facility]) F19.11 Blue toe syndrome of right lower extremity ([facility]) I75.021 Aortic mural thrombus ([facility]) I74.10 Current Medications: sodium chloride sodium chloride, sodium chloride flush, sodium chloride, potassium chloride OR potassium alternative oral replacement OR potassium chloride, magnesium sulfate, ondansetron OR ondansetron,senna, aluminum & magnesium hydroxide-simethicone, acetaminophen OR acetaminophen amoxicillin-clavulanate 1 tablet Oral 2 times per day miconazole 1 applicator Vaginal Nightly pantoprazole 40 mg Oral QAM AC rivaroxaban 20 mg Oral Daily with breakfast sodium chloride flush 5-40 mL IntraVENous 2 times per day aspirin 81 mg Oral Daily cilostazol 100 mg Oral BID PHYSICAL EXAM: Vitals: 12/17/23 0800 BP: 122/78 Pulse: 96 Resp: 18 Temp: 97.7 F (36.5 C) SpO2: 97% CONSTITUTIONAL: awake, alert, cooperative, no apparent distress LUNGS: no increased work of breathing, good air exchange and clear to auscultation CARDIOVASCULAR: regular rate and rhythm Multiphasic signals RLE Dorsal foot wound has healed since Sunday. Ecchymosis improved LABS: Lab Results Component Value Date WBC 9.2 12/14/2023 HGB 13.7 12/14/2023 HCT 41.5 12/14/2023 PLT 381 12/14/2023 K 3.5 12/17/2023 BUN 6 12/17/2023 CREATININE 0.7 12/17/2023 RADIOLOGY: * Aaliyah Alex MD - 12/17/2023 9:25 AM EST Images from the original note were not included. [facility] Progress Note Admitting Date and Time: 12/13/2023 3:16 PM had concerns including Abscess (Reports vaginal abscess. Reports hx of them in the past and has to have it drained. ). Admit Dx: General weakness [R53.1] History of substance abuse (HCC) [F19.11] Mental health problem [F48.9] Cellulitis, unspecified cellulitis site [L03.90] Synopsis: Ms. Vinod Ann, a 48 y.o. year old female who has a past medical history of Alcohol abuse, Breast abscess, and Drug abuse (HCC). presents with Abscess (Reports vaginal abscess. Reports hx of themin the past and has to have it drained, generalized weakness, over past week, followed by vascular surgery for PVD and discoloration of her rt toes, and started on xarelto, not able to take care of herself. No nausea or vomiting no chest pain or SOB no double vision or limb weakness. Has hx/o drug abuse and also concern of abscess to the groin. Admitted to the hospital for further care Subjective: Patient is being followed for General weakness [R53.1] History of substance abuse (HCC) [F19.11] Mental health problem [F48.9] Cellulitis, unspecified cellulitis site [L03.90] Patient was seen and examined. Patient could not sleep last night due to pain in the lower extremity. Denies fever or chills ROS: denies fever, chills, cp, sob, n/v, MANUEL unless stated above. amoxicillin-clavulanate 1 tablet Oral 2 times per day miconazole 1 applicator Vaginal Nightly pantoprazole 40 mg Oral QAM AC rivaroxaban 20 mg Oral Daily with breakfast sodium chloride flush 5-40 mL IntraVENous 2 times per day aspirin 81 mg Oral Daily cilostazol 100 mg Oral BID sodium chloride, 1 spray, PRN sodium chloride flush, 5-40 mL, PRN sodium chloride, , PRN potassium chloride, 40 mEq, PRN Or potassium alternative oral replacement, 40 mEq, PRN Or potassium chloride, 10 mEq, PRN magnesium sulfate, 2,000 mg, PRN ondansetron, 4 mg, Q8H PRN Or ondansetron, 4 mg, Q6H PRN senna, 1 tablet, Daily PRN aluminum & magnesium hydroxide-simethicone, 30 mL, Q6H PRN acetaminophen, 650 mg, Q6H PRN Or acetaminophen, 650 mg, Q6H PRN Objective: BP 122/78 Pulse 96 Temp 97.7 F (36.5 C) (Oral) Resp 18 Ht 1.676 m (5' 6) Wt 97.5 kg (215lb) SpO2 97% BMI 34.70 kg/m General Appearance: alert and oriented to person, place and time and in no acute distress Skin: warm and dry, chronic breast wounds bilaterally Head: normocephalic and atraumatic Eyes: pupils equal, round, and reactive to light, extraocular eye movements intact, conjunctivae normal Neck: neck supple and non tender without mass Pulmonary/Chest: clear to auscultation bilaterally- no wheezes, rales or rhonchi, normal air movement, no respiratory distress Cardiovascular: normal rate, normal S1 and S2 and no carotid bruits Abdomen: soft, non-tender, non-distended, normal bowel sounds, no masses or organomegaly Extremities: blue discoloration of the right big toe Neurologic: no cranial nerve deficit and speech normal Recent Labs 12/15/23 0441 12/16/23 0441 12/17/23 0508 NA 135 134 134 K 3.6 3.3* 3.5 CL 99 98 99 CO2 25 23 23 BUN 7 7 6 CREATININE 0.7 0.7 0.7 GLUCOSE 106* 125* 178* CALCIUM 8.9 8.6 8.9 No results for input(s): WBC, RBC, HGB, HCT, MCV, MCH, MCHC, RDW, PLT, MPV in the last 72 hours. Images, labs, consultants recommendations and overnight events were noted and reviewed. 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 * Right toe pain Known medical condition of blue toe syndrome VS following, cilatazole and Asprin Continue anticoagulation NSAIDS PRN Vascular and podiatry following Pending rec for revascularization, will eventually need amputation. Generalized weakness Follow blood culture Elevated ESR and CRP Rule out endocarditis For STEPHANIE Cardiology and ID following Fungal vaginitis Vaginal clotrimazole cream HIV screening and STI Diflucan and metronidazole OBGYN consult No discharge seen on exam Vulvar hygiene advised Chronic breast wounds bilaterally Going on for the last 5 years No fever or white count Tried abx including Augmentin in the past ID on board, Augmentin x 7 days Last mammogram 10/19/22 done at [facility], reviewed General surgery on board, no plans for drainage at this time. Rule out malignancy outpatient, will follow-up with breast surgeon outpatient Common bile duct dilatation possibly related to dysfunction at level of the ampulla Clinically stable Monitor Consider MRCP Known hx of Drug use Monitor Right common iliac thrombus Cardiology on board, TTE unremarkable. N.p.o. at midnight, STEPHANIE tomorrow. Zio patch on discharge. Placement Form [facility] SW/CM following Accepted to [facility], Pre cert pending [facility] PT -- Not ready for discharge yet, STEPHANIE tomorrow. NOTE: This report was transcribed using voice recognition software. Every effort was made to ensureaccuracy; however, inadvertent computerized it application development manager errors may be present. * Margarita Baer OTA - 12/17/2023 9:25 AM EST Occupational Therapy OT BEDSIDE TREATMENT NOTE [facility] [address] [place], [place] Date:12/17/2023 Patient Name: Vinod Ann : 1975 Room: 84/8408 Per OT Eval: Evaluating OT: Luis Dennis OTR/L [id number] Referring Provider: Roshan Kapadia MD Specific Provider Orders/Date: OT evaluation and treatment 12/14/23 0215 Diagnosis: General weakness [R53.1] History of substance abuse (HCC) [F19.11] Mental health problem [F48.9] Cellulitis, unspecified cellulitis site [L03.90] Pertinent Medical History: has a past medical history of Alcohol abuse, Breast abscess, and Drug abuse (HCC). Pt admitted to the hospital 12/13 with c/o abscess in her groin Orders received, chart reviewed, eval complete. Precautions: Fall Risk Assessment of current deficits [x] Functional mobility [x]ADLs [x] Strength []Cognition [x] Functional transfers [] IADLs [x] Safety Awareness [x]Endurance [] Fine Coordination [x] Balance [] Vision/perception []Sensation []Gross Motor Coordination [] ROM [] Delirium [] Motor Control OT PLAN OF CARE OT POC based on physician orders, patient diagnosis and results of clinical assessment Frequency/Duration 1-3 days/wk for 2 weeks PRN Specific OT Treatment to include: * Instruction/training on adapted ADL techniques and AE recommendations to increase functional independence within precautions * Training on energy conservation strategies, correct breathing pattern and techniques to improve independence/tolerance for self-care routine * Functional transfer/mobility training/DME recommendations for increased independence, safety, andfall prevention * Patient/Family education to increase follow through with safety techniques and functional independence * Recommendation of environmental modifications for increased safety with functional transfers/mobility and ADLs * Therapeutic exercise to improve motor endurance, ROM, and functional strength for ADLs/functionaltransfers * Therapeutic activities to facilitate/challenge dynamic balance, stand tolerance for increased safety and independence with ADLs * Delirium prevention/treatment Recommended Adaptive Equipment: TBD Pt is a bit inconsistent with PLOF compared to PT eval Home Living/PLOF: Pt is from sober living house - 2 story home with 3 + 1 JOSE F Bedroom and bathroom are on the 2nd level. Pt reports difficulty getting to 2nd level and staying on main level often. 1/2 bath on the first floor (reports the toilet is broken) Tub/shower on the 2nd floor Pt reports she was not using any AD and has no equipment at facility. Per PT eval, Pt reported using FWW Pleasant and cooperative throughout session Pain Level: Pt complained of R great toe pain Cognition: A&O: 4/4; Follows single step directions: good Follows multi step directions: poor Easily distracted - cues for task completion and following multi step commands Memory: fair Sequencing: good Problem solving: fair Judgement/safety: fair Functional Assessment: AM-PAC Daily Activity Raw Score: Initial Eval Status Date: 12/14/2023 Treatment Status Date: 12/17/23 STG=LTG Time frame: 10-14 days Feeding Set up Setup Mod I Grooming Set up Seated EOB 2/2 poor activity tolerance and increased pain in standing Setup Pt washed face, applied deodorant, combed hair seated Mod I UB Dressing Min A for line awareness and management DNT Pt having pullover shirt donned, stating having no difficulty Mod I LB Dressing Mod A 2/2 decreased balance in standing SBA-socks Pt donned/doff hospital sock to L foot, donned to R foot seated EOB Mod I Bathing Mod A Simulated SBA Simulated Task Pt able to wash of UB, LB and stand to wash of buttocks/leila area Recommending of shower bench Mod I Toileting Mod A For clothing management and balance SBA-transfer Commode transfer on standard commode with use of grab bar Mod I Bed Mobility Rolling L/R: Mod I Supine to sit: Mod I Sit to supine: Mod I DNT Nicolasa per previous session Pt seated EOB upon arrival and upright in chair at end of sesion Functional Transfers Sit to stand: Stand by assist Stand to sit: Stand by assist Stand pivot: Stand by assist with FWW - Pt does not tolerate any wbing in RLE 2/2 pain EOB><BSC SBA Sit to Stand Stand to Sit Cueing for hand placement/safety Mod I Functional Mobility NT 2/2 increased pain s/p toileting tasks SBA Pt ambulated in room and within griffith with w.w. Mod I with AAD Balance Sitting: Stand by assist Standing: Stand by assist Sitting EOB: Independent Standing: SBA Sitting: Mod I Standing: Mod I Activity Tolerance Poor Fair Fair+ Visual/ Perceptual Grossly WFL BUE ROM/Strength/ Fine motor Coordination Hand dominance: R RUE: ROM WFL Strength: grossly 4+/5 Mobile [employer]ist Strength: WFL Coordination: WFL LUE: ROM WFL Strength: grossly 4+/5 Mobile [employer] Specialist Strength: WFL Coordination: WFL Hearing: WFL Sensation: No c/o numbness or tingling Tone: WFL Edema: None noted Education: Pt was educated on role of OT, goals to be reached, importance of OOB activity, safety and and placement with transfers, safety/balance and walker management with functional mobility, and techniques to assist with LB dressing tasks. Comments: Upon arrival pt seated EOB, agreeable to therapy, speaking with nursing okaying pt to be seen this session. At end of session, pt seated upright in chair, chair alarm on, nursing aware, alllines and tubes intact, call light within reach. Pt has made fair progress towards set goals. Continue with current plan of care Treatment Time In: 9:25am Treatment Time Out: 9:39am Treatment Charges: [place] [address] Manual Therapy 82322 Thera Activities 10202 5 ADL/Home Mgt 90832 9 1 Neuro Re-ed 70288 Group Therapy Orthotic manage/training 26376 Non-Billable Time Total Timed Treatment 14 1 Margarita Baer MCCOLLUM/L [id number] * Angela Diego MD - 12/17/2023 8:57 AM EST Images from the original note were not included. Inpatient Cardiology Progress note SUBJECTIVE: Seen and examined at bedside. No chest pain or SOB. Right foot discoloration improving but still painful Denies having chest pain or shortness of breath. No significant arrhythmia seen on telemetry. Occasional PACs. No atrial fibrillation OBJECTIVE: No apparent distress PHYSICAL EXAM: BP 122/78 Pulse 96 Temp 97.7 F (36.5 C) (Oral) Resp 18 Ht 1.676 m (5' 6) Wt 97.5 kg (215lb) SpO2 97% BMI 34.70 kg/m B/P Range last 24 hours: Systolic (24hrs), Av , Min:112 , Max:122 Diastolic (24hrs), Av, Min:64, Max:78 GENERAL: NAD HEAD: Normocephalic, atraumatic. NECK: No JVD. No carotid bruits. No neck masses. CARDIOVASCULAR: Normal rate, regular rhythm, normal S1, S2, no MRG LUNGS: Clear to auscultation bilaterally, no wheezing. ABDOMEN: Abdomen is soft and not distended. No tenderness. EXTREMITIES: There is no pedal edema. There is right big toe dark discoloration MUSCULOSKELETAL: No joint swelling. Normal range of motion SKIN: Skin is moist. No ulcers or lesions. NEUROLOGICAL: No evidence of obvious neurological deficits. PSYCHOLOGICAL: Patient is in normal mood. Intake/Output Summary (Last 24 hours) at 12/17/2023 0857 Last data filed at 12/17/2023 0632 Gross per 24 hour Intake 3547.48 ml Output -- Net 3547.48 ml Weight: Wt Readings from Last 3 Encounters: 12/17/23 97.5 kg (215 lb) 11/28/23 97.5 kg (215 lb) 10/19/23 97.1 kg (214 lb) Current Inpatient Medications: amoxicillin-clavulanate 1 tablet Oral 2 times per day miconazole 1 applicator Vaginal Nightly pantoprazole 40 mg Oral QAM AC rivaroxaban 20 mg Oral Daily with breakfast sodium chloride flush 5-40 mL IntraVENous 2 times per day aspirin 81 mg Oral Daily cilostazol 100 mg Oral BID IV Infusions (if any): sodium chloride DIAGNOSTIC/ LABORATORY DATA: Labs: CBC: Recent Labs 12/14/23 1349 WBC 9.2 HGB 13.7 HCT 41.5 PLT 381 BMP: Recent Labs 12/16/23 0441 12/17/23 0508 NA 134 134 K 3.3* 3.5 CO2 23 23 BUN 7 6 CREATININE 0.7 0.7 LABGLOM >60 >60 CALCIUM 8.6 8.9 Mag: No results for input(s): MG in the last 72 hours. Phos: No results for input(s): PHOS in the last 72 hours. TFT: No results found for: TSH, B1MTCEP, U5MAQRV, THYROIDAB, FT3, T4FREE HgA1c: No results found for: LABA1C No results found for: EAG BNP: No results for input(s): BNP in the last 72 hours. PT/INR: No results for input(s): PROTIME, INR in the last 72 hours. APTT:No results for input(s): APTT in the last 72 hours. CARDIAC ENZYMES:No results for input(s): CKTOTAL, CKMB, CKMBINDEX, TROPHS in the last 72 hours. FASTING LIPID PANEL:No results found for: CHOL, HDL, LDLDIRECT, LDLCALC, TRIG LIVER PROFILE: No results for input(s): AST, ALT, LABALBU in the last 72 hours. Pertinent imaging studies: -TTE 12/14/2023: No gross evidence of intracardiac mass or thrombus. Interatrial Septum: Interatrial septum was not well visualized. No interatrial shunt visualized with color Doppler. Left Ventricle: Normal left ventricular systolic function with EF 55%. Left ventricle size is normal. Findings consistent with mild concentric hypertrophy. Normal wall motion. Normal diastolic function. Aortic Valve: No significant stenosis. Tricuspid Valve: Trace regurgitation., RVSP 32mmHg. Image quality is adequate. -ECG 10/26/2023: Personally reviewed, normal sinus rhythm, no ST-T wave changes. Impression/Plan: 48 yo F with PMH of HTN, HLD, borderline DM, polysubstance abuse, tobacco abuse who presented to the hospital with vaginal/groin abscess, also has right common iliac thrombus with right big toe dark discoloration, vascular surgery following, requesting cardiac evaluation for cardiac source of emboli. Patient denies having any chest pain, shortness of breath or dyspnea on exertion, neither now nor in the past. She reports that she had her left lower leg swollen over the last month Right common iliac thrombus: Evaluating for cardiac source of emboli TTE with normal limits Patient agreeable to proceed with STEPHANIE tomorrow. N.p.o. at midnight. Keep patient on telemetry Obtain Zio patch upon discharge to evaluate for possible occult atrial arrythmias. Smoking cessation counseling provided. She expressed understanding. Initiated on anticoagulation. Also on aspirin and Pletal. Blood pressure appears to be stable overall Counseled about dietary and lifestyle modifications. Angela Diego MD, [facility] Cardiology NOTE: This report was transcribed using voice recognition software. Every effort was made to ensureaccuracy; however, inadvertent computerized it application development manager errors may be present. * Gamaliel Park MD - 12/17/2023 6:03 AM EST GENERAL SURGERY DAILY PROGRESS NOTE 12/17/2023 Chief Complaint Patient presents with Abscess Reports vaginal abscess. Reports hx of them in the past and has to have it drained. Subjective: Complaining of toe pain, no breast pain. Tolerated diet. Objective: BP 112/64 Pulse 76 Temp 97.4 F (36.3 C) (Temporal) Resp 17 Ht 1.676 m (5' 6) Wt 97.5 kg (215 lb) SpO2 96% BMI 34.70 kg/m GENERAL: Laying in bed, awake, alert, cooperative, no apparent distress HEAD: Normocephalic, atraumatic EYES: No sclera icterus, pupils equal LUNGS: No increased work of breathing CHEST: bilateral breast wounds CARDIOVASCULAR: RR ABDOMEN: Soft, non-tender, non-distended EXTREMITIES: No edema or swelling. R 1st toe discoloration SKIN: Warm and dry Assessment/Plan: 48 y.o. female with bilateral breast wounds - likely chronic abscesses - have to r/o malignancy prior to intervention given family history - recommend outpatient mammogram and f/u with breast surgeon - will provide f/u information for Dr. Clayton at [facility] - she would like to establish care here. - no inpatient surgical plans, please call if needed [facility] (SICU) ATTENDING PHYSICIAN CRITICAL CARE PROGRESS NOTE I have examined the patient, reviewed the record,and discussed the case with the POULTRY INSEMINATOR/ Resident. I have reviewed all relevant labs and imaging data. Please refer to the POULTRY INSEMINATOR/ resident's note. I agree with the assessment and plan with the following corrections/ additions Gamaliel Park MD * Monisha Link DPM - 12/16/2023 1:24 PM EST Department of Podiatry Progress Note Subjective: Patient was seen by bedside for follow up of the right toe pain and discoloration. States her pain is worse today. Patient denies any N/V/D/F/C/SOB/CP and has no other pedal complaints atthis time. 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) 12/14/2023 Involving the right great toe and the fourth toe Breast abscess Drug abuse ([facility]) History of drug abuse ([facility]) 12/14/2023 Meth and cocaine, last time 4 months ago Tibial artery occlusion, left ([facility]) 12/14/2023 Left tibioperoneal trunk thrombus, CTA December 08, 2023 Tibial artery occlusion, right ([facility]) 12/14/2023 Of the posterior tibial artery with reconstitution in the calf, also occlusion of the peroneal artery, CTA, 08 December 2023 Tobacco dependence 12/14/2023 Past Surgical History: History reviewed. No pertinent surgical history. Medications Prior to Admission: Medications Prior to Admission: Amoxicillin-Pot Clavulanate (AUGMENTIN PO), Take by mouth brompheniramine-pseudoephedrine 1-15 MG/5ML ELIX elixir, Take 5 mLs by mouth every 6 hours as needed rivaroxaban 15 & 20 MG Starter Pack, Take as directed on package. (Patient not taking: Reportedon 12/14/2023) rivaroxaban (XARELTO) 20 MG TABS tablet, Take 1 tablet by mouth daily (with breakfast) albuterol sulfate HFA (PROVENTIL;VENTOLIN;PROAIR) 108 (90 Base) MCG/ACT inhaler, amLODIPine (NORVASC) 2.5 MG tablet, Take 1 tablet by mouth daily amLODIPine (NORVASC) 5 MG tablet, Take 1 tablet by mouth daily ARIPiprazole (ABILIFY) 10 MG tablet, Cholecalciferol (VITAMIN D3) 1.25 MG (16399 UT) CAPS, cloNIDine (CATAPRES) 0.1 MG tablet, 2 times daily famotidine (PEPCID) 20 MG tablet, Take 1 tablet by mouth At bedtime as needed (Patient not taking: Reported on 12/12/2023) fluticasone (FLONASE) 50 MCG/ACT nasal spray, hydroCHLOROthiazide (HYDRODIURIL) 25 MG tablet, hydrOXYzine pamoate (VISTARIL) 50 MG capsule, ibuprofen (ADVIL;MOTRIN) 600 MG tablet, Take 1 tablet by mouth every 6 hours as needed (Patient nottaking: Reported on 12/12/2023) loratadine (CLARITIN) 10 MG tablet, Take 1 tablet by mouth daily meloxicam (MOBIC) 7.5 MG tablet, Take 1 tablet by mouth daily (Patient not taking: Reported on 12/12/2023) mirtazapine (REMERON) 30 MG tablet, Take 1 tablet by mouth nightly ofloxacin (FLOXIN) 0.3 % otic solution, Place 5 drops in ear(s) daily (Patient not taking: Reportedon 12/12/2023) omeprazole (PRILOSEC) 40 MG delayed release capsule, Take 1 capsule by mouth daily oxybutynin (DITROPAN XL) 15 MG extended release tablet, pregabalin (LYRICA) 25 MG capsule, risperiDONE (RISPERDAL) 0.5 MG tablet, Allergies: Cephalexin, Sertraline hcl, Fenofibrate, Zyprexa [olanzapine], and Clindamycin Social History: TOBACCO: reports that she has been smoking cigarettes. She has never used smokeless tobacco. ETOH: reports that she does not currently use alcohol. DRUGS: Social History Substance and Sexual Activity Drug Use Not Currently Types: Methamphetamines (Crystal Meth), Marijuana ([place]), Cocaine Comment: last used 08/14/23 Family History: History reviewed. No pertinent family history. REVIEW OF SYSTEMS: All pertinent positives and negatives as noted in HPI LOWER EXTREMITY EXAMINATION VASCULAR: DP and PT pulses are not palpable. CFT < 5 seconds B/L. Warm to cold from the tibial tuberosity to the distal aspect of the digits dorsally. Hair growth noted to the distal aspects dorsally. NEUROLOGIC: Protective sensation is diminished by grossly intact DERM: Right foot: Ischemic changes noted to the right 1st and 5th toes. Pain to palpation noted. No open lesions are hyperkeratotic tissue noted. MUSCULOSKELETAL: No deformities noted. 5/5 Gross Muscle strength in all 4 quadrants. CONSULTS: IP CONSULT TO SOCIAL WORK IP CONSULT TO INTERNAL MEDICINE IP CONSULT TO PODIATRY IP CONSULT TO VASCULAR SURGERY IP CONSULT TO CARDIOLOGY IP CONSULT TO LABORATORY EQUIPMENT CLEANER IP CONSULT TO LABORATORY EQUIPMENT CLEANER IP CONSULT TO INFECTIOUS DISEASES MEDICATION: Scheduled Meds: pantoprazole 40 mg Oral QAM AC rivaroxaban 20 mg Oral Daily with breakfast doxycycline (VIBRAMYCIN) IV 100 mg IntraVENous Q12H sodium chloride flush 5-40 mL IntraVENous 2 times per day metroNIDAZOLE 500 mg Oral 3 times per day aspirin 81 mg Oral Daily cilostazol 100 mg Oral BID Continuous Infusions: sodium chloride PRN Meds:.ketorolac, sodium chloride, sodium chloride flush, sodium chloride, potassium chloride OR potassium alternative oral replacement OR potassium chloride, magnesium sulfate, ondansetron OR ondansetron, senna, aluminum & magnesium hydroxide-simethicone, acetaminophen OR acetaminophen RADIOLOGY: CT CHEST W CONTRAST Final Result 1. Minimal intramural thrombus at the thoracoabdominal aortic junction without evidence for ulceration or periaortic hematoma. 2. Minimal calcifications at the left subclavian takeoff and at the distal descending thoracic aorta. 3. No acute pulmonary process. Mild heterogeneity suggesting respiratory bronchiolitis background chronic findings. XR FOOT RIGHT (MIN 3 VIEWS) Final Result No acute osseous abnormality. Prominent plantar calcaneal spur. Vascular lower extremity arterial segmental pressures w PPG Final Result CT ABDOMEN PELVIS W IV CONTRAST Additional Contrast? None Final Result 1. No evidence of groin or perineal abscess or focal inflammation. 2. Hepatic steatosis. 3. Mild diverticulosis. 4. Mild nonspecific intrahepatic bile duct dilatation as well as prominent diameter of the common bile duct possibly related to dysfunction at level of the ampulla. If clinically warranted, MRCP may be helpful for further evaluation. US BREAST LIMITED (Results Pending) Vitals: BP 131/75 Pulse (!) 118 Temp 97.5 F (36.4 C) (Temporal) Resp 16 Ht 1.676 m (5' 6) Wt 97.5 kg (214 lb 15.2 oz) SpO2 94% BMI 34.69 kg/m LABS: Recent Labs 12/14/23 0457 12/14/23 1349 WBC 8.7 9.2 HGB 13.2 13.7 HCT 40.2 41.5 PLT 367 381 Recent Labs 12/16/23 0441 NA 134 K 3.3* CL 98 CO2 23 BUN 7 CREATININE 0.7 Recent Labs 12/14/23 0457 PROT 6.9 ASSESSMENTS: -Blue toe syndrome -PVD -Ischemic right foot -Pain right foot -drug abuse PLAN: - Patient was examined and evaluated.Reviewed patient's recent lab results, charts and pertinent diagnostic imaging.Reviewed ancillary service notes. - Vascular: R SAVANNA 0.89, L SAVANNA 1.40. - Per Vascular: Pt being worked up from cardiology to evaluate for source of emboli. No vascular surgery interventions planned at this time. She should continue taking asa, pletal and xarelto - X-rays: No acute osseous abnormality. -Vascular surgery consulted will follow up on recommendations. Conservative care for now. - Will continue to follow patient while they are in-house. D/C KWABENA Cash Fellowship-Trained Foot and Ankle Surgeon Diplomate, [place] [employer] [phone] Thank you for the opportunity to take part in the patient's care. Please do not hesitate to call for any questions or concerns. Monisha Soteloshannan PGY-2 12/16/2023 1:24 PM Associated attestation - Onel Dobbins DPM - 12/17/2023 8:30 AM EST Continue monitoring for now Will eventually need toe amp KWABENA Cash Fellowship-Trained Foot and Ankle Surgeon Diplomate, [place] [employer] [phone] * Jeanmarie Samayoa MD - 12/16/2023 1:07 PM EST Images from the original note were not included. Inpatient Cardiology Progress note SUBJECTIVE: Seen and examined at bedside. No chest pain or SOB. Right foot discoloration improving but still painful Denies having chest pain or shortness of breath. OBJECTIVE: No apparent distress PHYSICAL EXAM: BP 131/75 Pulse (!) 118 Temp 97.5 F (36.4 C) (Temporal) Resp 16 Ht 1.676 m (5' 6) Wt 97.5 kg (214 lb 15.2 oz) SpO2 94% BMI 34.69 kg/m B/P Range last 24 hours: Systolic (24hrs), Av , Min:131 , Max:140 Diastolic (24hrs), Av, Min:7, Max:75 GENERAL: NAD HEAD: Normocephalic, atraumatic. NECK: No JVD. No carotid bruits. No neck masses. CARDIOVASCULAR: Normal rate, regular rhythm, normal S1, S2, no MRG LUNGS: Clear to auscultation bilaterally, no wheezing. ABDOMEN: Abdomen is soft and not distended. No tenderness. EXTREMITIES: There is no pedal edema. There is right big toe dark discoloration MUSCULOSKELETAL: No joint swelling. Normal range of motion SKIN: Skin is moist. No ulcers or lesions. NEUROLOGICAL: No evidence of obvious neurological deficits. PSYCHOLOGICAL: Patient is in normal mood. Intake/Output Summary (Last 24 hours) at 12/16/2023 1307 Last data filed at 12/16/2023 0124 Gross per 24 hour Intake 370 ml Output -- Net 370 ml Weight: Wt Readings from Last 3 Encounters: 12/16/23 97.5 kg (214 lb 15.2 oz) 11/28/23 97.5 kg (215 lb) 10/19/23 97.1 kg (214 lb) Current Inpatient Medications: pantoprazole 40 mg Oral QAM AC rivaroxaban 20 mg Oral Daily with breakfast doxycycline (VIBRAMYCIN) IV 100 mg IntraVENous Q12H sodium chloride flush 5-40 mL IntraVENous 2 times per day metroNIDAZOLE 500 mg Oral 3 times per day aspirin 81 mg Oral Daily cilostazol 100 mg Oral BID IV Infusions (if any): sodium chloride DIAGNOSTIC/ LABORATORY DATA: Labs: CBC: Recent Labs 12/14/23 0457 12/14/23 1349 WBC 8.7 9.2 HGB 13.2 13.7 HCT 40.2 41.5 PLT 367 381 BMP: Recent Labs 12/15/23 0441 12/16/23 0441 NA 135 134 K 3.6 3.3* CO2 25 23 BUN 7 7 CREATININE 0.7 0.7 LABGLOM >60 >60 CALCIUM 8.9 8.6 Mag: Recent Labs 12/14/23 0457 MG 1.9 Phos: No results for input(s): PHOS in the last 72 hours. TFT: No results found for: TSH, N1WWIXI, A2BBHXW, THYROIDAB, FT3, T4FREE HgA1c: No results found for: LABA1C No results found for: EAG BNP: No results for input(s): BNP in the last 72 hours. PT/INR: No results for input(s): PROTIME, INR in the last 72 hours. APTT:No results for input(s): APTT in the last 72 hours. CARDIAC ENZYMES:No results for input(s): CKTOTAL, CKMB, CKMBINDEX, TROPHS in the last 72 hours. FASTING LIPID PANEL:No results found for: CHOL, HDL, LDLDIRECT, LDLCALC, TRIG LIVER PROFILE: Recent Labs 12/14/23 0457 AST 14 ALT 13 LABALBU 3.8 Pertinent imaging studies: -TTE 12/14/2023: No gross evidence of intracardiac mass or thrombus. Interatrial Septum: Interatrial septum was not well visualized. No interatrial shunt visualized with color Doppler. Left Ventricle: Normal left ventricular systolic function with EF 55%. Left ventricle size is normal. Findings consistent with mild concentric hypertrophy. Normal wall motion. Normal diastolic function. Aortic Valve: No significant stenosis. Tricuspid Valve: Trace regurgitation., RVSP 32mmHg. Image quality is adequate. -ECG 10/26/2023: Personally reviewed, normal sinus rhythm, no ST-T wave changes. Impression/Plan: 48 yo F with PMH of HTN, HLD, borderline DM, polysubstance abuse, tobacco abuse who presented to the hospital with vaginal/groin abscess, also has right common iliac thrombus with right big toe dark discoloration, vascular surgery following, requesting cardiac evaluation for cardiac source of emboli. Patient denies having any chest pain, shortness of breath or dyspnea on exertion, neither now nor in the past. She reports that she had her left lower leg swollen over the last month Right common iliac thrombus: Evaluating for cardiac source of emboli TTE with normal limit Obtain STEPHANIE Keep patient on telemetry Obtain Zio patch upon discharge to evaluate for possible atrial fibrillation Jeanmarie Samayoa MD Interventional Cardiology/ Structural heart disease * Louie Santiago MD - 12/16/2023 8:30 AM EST Images from the original note were not included. [facility] Hospitalist Progress Note Admitting Date and Time: 12/13/2023 3:16 PM had concerns including Abscess (Reports vaginal abscess. Reports hx of them in the past and has to have it drained. ). Admit Dx: General weakness [R53.1] History of substance abuse (HCC) [F19.11] Mental health problem [F48.9] Cellulitis, unspecified cellulitis site [L03.90] Synopsis: Ms. Vinod Ann, a 48 y.o. year old female who has a past medical history of Alcohol abuse, Breast abscess, and Drug abuse (HCC). presents with Abscess (Reports vaginal abscess. Reports hx of themin the past and has to have it drained, generalized weakness, over past week, followed by vascular surgery for PVD and discoloration of her rt toes, and started on xarelto, not able to take care of herself. No nausea or vomiting no chest pain or SOB no double vision or limb weakness. Has hx/o drug abuse and also concern of abscess to the groin. Admitted to the hospital for further care Subjective: Patient is being followed for General weakness [R53.1] History of substance abuse (HCC) [F19.11] Mental health problem [F48.9] Cellulitis, unspecified cellulitis site [L03.90] Patient was seen and examined this morning at bedside right toe pain improving Pt breasts and pelvic examined with nurse present in the room Pus coming out of left breast ROS: denies fever, chills, cp, sob, n/v, MANUEL unless stated above. pantoprazole 40 mg Oral QAM AC rivaroxaban 20 mg Oral Daily with breakfast doxycycline (VIBRAMYCIN) IV 100 mg IntraVENous Q12H sodium chloride flush 5-40 mL IntraVENous 2 times per day metroNIDAZOLE 500 mg Oral 3 times per day aspirin 81 mg Oral Daily cilostazol 100 mg Oral BID ketorolac, 15 mg, Q8H PRN sodium chloride, 1 spray, PRN sodium chloride flush, 10 mL, Once PRN sodium chloride flush, 5-40 mL, PRN sodium chloride, , PRN potassium chloride, 40 mEq, PRN Or potassium alternative oral replacement, 40 mEq, PRN Or potassium chloride, 10 mEq, PRN magnesium sulfate, 2,000 mg, PRN ondansetron, 4 mg, Q8H PRN Or ondansetron, 4 mg, Q6H PRN senna, 1 tablet, Daily PRN aluminum & magnesium hydroxide-simethicone, 30 mL, Q6H PRN acetaminophen, 650 mg, Q6H PRN Or acetaminophen, 650 mg, Q6H PRN Objective: BP 131/75 Pulse (!) 118 Temp 97.5 F (36.4 C) (Temporal) Resp 16 Ht 1.676 m (5' 6) Wt 97.5 kg (214 lb 15.2 oz) SpO2 94% BMI 34.69 kg/m General Appearance: alert and oriented to person, place and time and in no acute distress Skin: warm and dry Head: normocephalic and atraumatic Eyes: pupils equal, round, and reactive to light, extraocular eye movements intact, conjunctivae normal Neck: neck supple and non tender without mass Pulmonary/Chest: clear to auscultation bilaterally- no wheezes, rales or rhonchi, normal air movement, no respiratory distress Cardiovascular: normal rate, normal S1 and S2 and no carotid bruits Abdomen: soft, non-tender, non-distended, normal bowel sounds, no masses or organomegaly Extremities: blue discoloration of the right big toe Neurologic: no cranial nerve deficit and speech normal Recent Labs 12/14/23 0457 12/15/23 0441 12/16/23 0441 NA 135 135 134 K 3.0* 3.6 3.3* CL 98 99 98 CO2 24 25 23 BUN 6 7 7 CREATININE 0.7 0.7 0.7 GLUCOSE 136* 106* 125* CALCIUM 8.8 8.9 8.6 Recent Labs 12/13/23 1200 12/14/23 0457 12/14/23 1349 WBC 9.5 8.7 9.2 RBC 4.80 4.51 4.66 HGB 14.1 13.2 13.7 HCT 42.0 40.2 41.5 MCV 87.5 89.1 89.1 MCH 29.4 29.3 29.4 MCHC 33.6 32.8 33.0 RDW 14.5 14.5 14.6 PLT 401 367 381 MPV 9.7 9.7 9.7 Images, labs, consultants recommendations and overnight events were noted and reviewed. 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 * Right toe pain Known medical condition of blue toe syndrome VS following, cilatazole and Asprin Continue anticoagulation NSAIDS PRN Generalized weakness Follow blood culture Elevated ESR and CRP Rule out endocarditis For STEPHANIE Cardiology following Vaginal discharge? Obtain wet rpep HIV screening and STI Diflucan and metronidazole OBGYN consult No discharge seen on exam Vulvar hygiene advised Breast abscess bilateral Going on for the last 5 years No fever or white count Tried abx including Augmentin in the past Already started Doxy, continue Last mammogram 10/19/22 done at [facility], reviewed Get breast US, consider GS consult if drain able Obtain gram stain and culture, MRSA nares Consult ID Common bile duct dilatation possibly related to dysfunction at level of the ampulla Clinically stable Monitor Consider MRCP Known hx of Drug use Monitor Placement [facility] following Accepted to [facility], Pre cert pending NOTE: This report was transcribed using voice recognition software. Every effort was made to ensureaccuracy; however, inadvertent computerized it application development manager errors may be present. * Monisha Link DPM - 12/15/2023 4:17 PM EST Images from the original note were not included. Department of Podiatry Progress Note Subjective: Patient was seen by bedside for follow up of the right toe pain and discoloration. Patient is worried about the blood flow to her feet, admits to pain to her right foot. Patient denies any N/V/D/F/C/SOB/CP and has no other pedal complaints at this time. 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 ([facility]) 12/14/2023 Involving the right great toe and the fourth toe Breast abscess Drug abuse ([facility]) History of drug abuse ([facility]) 12/14/2023 Meth and cocaine, last time 4 months ago Tibial artery occlusion, left (HCC) 12/14/2023 Left tibioperoneal trunk thrombus, CTA December 08, 2023 Tibial artery occlusion, right (HCC) 12/14/2023 Of the posterior tibial artery with reconstitution in the calf, also occlusion of the peroneal artery, CTA, 08 December 2023 Tobacco dependence 12/14/2023 Past Surgical History: History reviewed. No pertinent surgical history. Medications Prior to Admission: Medications Prior to Admission: Amoxicillin-Pot Clavulanate (AUGMENTIN PO), Take by mouth brompheniramine-pseudoephedrine 1-15 MG/5ML ELIX elixir, Take 5 mLs by mouth every 6 hours as needed rivaroxaban 15 & 20 MG Starter Pack, Take as directed on package. (Patient not taking: Reportedon 12/14/2023) rivaroxaban (XARELTO) 20 MG TABS tablet, Take 1 tablet by mouth daily (with breakfast) albuterol sulfate HFA (PROVENTIL;VENTOLIN;PROAIR) 108 (90 Base) MCG/ACT inhaler, amLODIPine (NORVASC) 2.5 MG tablet, Take 1 tablet by mouth daily amLODIPine (NORVASC) 5 MG tablet, Take 1 tablet by mouth daily ARIPiprazole (ABILIFY) 10 MG tablet, Cholecalciferol (VITAMIN D3) 1.25 MG (60311 UT) CAPS, cloNIDine (CATAPRES) 0.1 MG tablet, 2 times daily famotidine (PEPCID) 20 MG tablet, Take 1 tablet by mouth At bedtime as needed (Patient not taking: Reported on 12/12/2023) fluticasone (FLONASE) 50 MCG/ACT nasal spray, hydroCHLOROthiazide (HYDRODIURIL) 25 MG tablet, hydrOXYzine pamoate (VISTARIL) 50 MG capsule, ibuprofen (ADVIL;MOTRIN) 600 MG tablet, Take 1 tablet by mouth every 6 hours as needed (Patient nottaking: Reported on 12/12/2023) loratadine (CLARITIN) 10 MG tablet, Take 1 tablet by mouth daily meloxicam (MOBIC) 7.5 MG tablet, Take 1 tablet by mouth daily (Patient not taking: Reported on 12/12/2023) mirtazapine (REMERON) 30 MG tablet, Take 1 tablet by mouth nightly ofloxacin (FLOXIN) 0.3 % otic solution, Place 5 drops in ear(s) daily (Patient not taking: Reportedon 12/12/2023) omeprazole (PRILOSEC) 40 MG delayed release capsule, Take 1 capsule by mouth daily oxybutynin (DITROPAN XL) 15 MG extended release tablet, pregabalin (LYRICA) 25 MG capsule, risperiDONE (RISPERDAL) 0.5 MG tablet, Allergies: Cephalexin, Sertraline hcl, Fenofibrate, Zyprexa [olanzapine], and Clindamycin Social History: TOBACCO: reports that she has been smoking cigarettes. She has never used smokeless tobacco. ETOH: reports that she does not currently use alcohol. DRUGS: Social History Substance and Sexual Activity Drug Use Not Currently Types: Methamphetamines (Crystal Meth), Marijuana ([place]), Cocaine Comment: last used 08/14/23 Family History: History reviewed. No pertinent family history. REVIEW OF SYSTEMS: All pertinent positives and negatives as noted in HPI LOWER EXTREMITY EXAMINATION VASCULAR: DP and PT pulses are not palpable. CFT < 5 seconds B/L. Warm to cold from the tibial tuberosity to the distal aspect of the digits dorsally. Hair growth noted to the distal aspects dorsally. NEUROLOGIC: Protective sensation is diminished by grossly intact DERM: Right foot: Ischemic changes noted to the right 1st and 5th toes. Pain to palpation noted. No open lesions are hyperkeratotic tissue noted. MUSCULOSKELETAL: No deformities noted. 5/5 Gross Muscle strength in all 4 quadrants. CONSULTS: IP CONSULT TO SOCIAL WORK IP CONSULT TO INTERNAL MEDICINE IP CONSULT TO PODIATRY IP CONSULT TO VASCULAR SURGERY IP CONSULT TO CARDIOLOGY IP CONSULT TO LABORATORY EQUIPMENT CLEANER IP CONSULT TO LABORATORY EQUIPMENT CLEANER MEDICATION: Scheduled Meds: pantoprazole 40 mg Oral QAM AC rivaroxaban 20 mg Oral Daily with breakfast doxycycline (VIBRAMYCIN) IV 100 mg IntraVENous Q12H sodium chloride flush 5-40 mL IntraVENous 2 times per day metroNIDAZOLE 500 mg Oral 3 times per day aspirin 81 mg Oral Daily cilostazol 100 mg Oral BID Continuous Infusions: sodium chloride PRN Meds:.ketorolac, sodium chloride, sodium chloride flush, sodium chloride flush, sodium chloride, potassium chloride OR potassium alternative oral replacement OR potassium chloride, magnesium sulfate, ondansetron OR ondansetron, senna, aluminum & magnesium hydroxide-simethicone, acetaminophen OR acetaminophen RADIOLOGY: CT CHEST W CONTRAST Final Result 1. Minimal intramural thrombus at the thoracoabdominal aortic junction without evidence for ulceration or periaortic hematoma. 2. Minimal calcifications at the left subclavian takeoff and at the distal descending thoracic aorta. 3. No acute pulmonary process. Mild heterogeneity suggesting respiratory bronchiolitis background chronic findings. XR FOOT RIGHT (MIN 3 VIEWS) Final Result No acute osseous abnormality. Prominent plantar calcaneal spur. Vascular lower extremity arterial segmental pressures w PPG Final Result CT ABDOMEN PELVIS W IV CONTRAST Additional Contrast? None Final Result 1. No evidence of groin or perineal abscess or focal inflammation. 2. Hepatic steatosis. 3. Mild diverticulosis. 4. Mild nonspecific intrahepatic bile duct dilatation as well as prominent diameter of the common bile duct possibly related to dysfunction at level of the ampulla. If clinically warranted, MRCP may be helpful for further evaluation. Vitals: BP 126/75 Pulse (!) 115 Temp 98.5 F (36.9 C) (Temporal) Resp 18 Ht 1.676 m (5' 6) Wt 97.5 kg (214 lb 15.2 oz) SpO2 95% BMI 34.69 kg/m LABS: Recent Labs 12/14/23 0457 12/14/23 1349 WBC 8.7 9.2 HGB 13.2 13.7 HCT 40.2 41.5 PLT 367 381 Recent Labs 12/15/23 0441 NA 135 K 3.6 CL 99 CO2 25 BUN 7 CREATININE 0.7 Recent Labs 12/13/23 1200 12/14/23 0457 PROT 8.0 6.9 ASSESSMENTS: -Blue toe syndrome -PVD -Ischemic right foot -Pain right foot -drug abuse PLAN: - Patient was examined and evaluated.Reviewed patient's recent lab results, charts and pertinent diagnostic imaging.Reviewed ancillary service notes. - Vascular: R SAVANNA 0.89, L SAVANNA 1.40. - Per Vascular: Pt being worked up from cardiology to evaluate for source of emboli. No vascular surgery interventions planned at this time. She should continue taking asa, pletal and xarelto - X-rays: No acute osseous abnormality. -Vascular surgery consulted will follow up on recommendations. Conservative care for now. - Will continue to follow patient while they are in-house. D/C KWABENA Cash Fellowship-Trained Foot and Ankle Surgeon Diplomate, [place] [employer] [phone] Thank you for the opportunity to take part in the patient's care. Please do not hesitate to call for any questions or concerns. Monisha Link PGY-2 12/15/2023 4:18 PM Associated attestation - Onel Dobbins DPM - 12/16/2023 8:22 AM EST Will monitor demarcation for now Patient may eventually need toe amputation No vascular intervention per vascular service KWABENA Cash Fellowship-Trained Foot and Ankle Surgeon Diplomate, [place] [employer] [phone] * Jeanmarie Samayoa MD - 12/15/2023 11:34 AM EST Images from the original note were not included. Inpatient Cardiology Progress note SUBJECTIVE: Seen and examined at bedside. Reports some minor bloody tinged secretions when she blows her nose. Also reports some bleeding over left breast lesion. Denies having chest pain or shortness of breath. OBJECTIVE: No apparent distress PHYSICAL EXAM: BP 126/75 Pulse (!) 115 Temp 98.5 F (36.9 C) (Temporal) Resp 18 Ht 1.676 m (5' 6) Wt 97.5 kg (214 lb 15.2 oz) SpO2 95% BMI 34.69 kg/m B/P Range last 24 hours: Systolic (24hrs), Av , Min:126 , Max:126 Diastolic (24hrs), Av, Min:75, Max:75 GENERAL: NAD HEAD: Normocephalic, atraumatic. NECK: No JVD. No carotid bruits. No neck masses. CARDIOVASCULAR: Normal rate, regular rhythm, normal S1, S2, no MRG LUNGS: Clear to auscultation bilaterally, no wheezing. ABDOMEN: Abdomen is soft and not distended. No tenderness. EXTREMITIES: There is no pedal edema. There is right big toe dark discoloration MUSCULOSKELETAL: No joint swelling. Normal range of motion SKIN: Skin is moist. No ulcers or lesions. NEUROLOGICAL: No evidence of obvious neurological deficits. PSYCHOLOGICAL: Patient is in normal mood. Intake/Output Summary (Last 24 hours) at 12/15/20231956 Last data filed at 12/15/2023 1300 Gross per 24 hour Intake 2340 ml Output -- Net 2340 ml Weight: Wt Readings from Last 3 Encounters: 12/15/23 97.5 kg (214 lb 15.2 oz) 11/28/23 97.5 kg (215 lb) 10/19/23 97.1 kg (214 lb) Current Inpatient Medications: pantoprazole 40 mg Oral QAM AC rivaroxaban 20 mg Oral Daily with breakfast doxycycline (VIBRAMYCIN) IV 100 mg IntraVENous Q12H sodium chloride flush 5-40 mL IntraVENous 2 times per day metroNIDAZOLE 500 mg Oral 3 times per day aspirin 81 mg Oral Daily cilostazol 100 mg Oral BID IV Infusions (if any): sodium chloride DIAGNOSTIC/ LABORATORY DATA: Labs: CBC: Recent Labs 12/14/23 0457 12/14/23 1349 WBC 8.7 9.2 HGB 13.2 13.7 HCT 40.2 41.5 PLT 367 381 BMP: Recent Labs 12/14/23 0457 12/15/23 0441 NA 135 135 K 3.0* 3.6 CO2 24 25 BUN 6 7 CREATININE 0.7 0.7 LABGLOM >60 >60 CALCIUM 8.8 8.9 Mag: Recent Labs 12/13/23 1200 12/14/23 0457 MG 1.8 1.9 Phos: No results for input(s): PHOS in the last 72 hours. TFT: No results found for: TSH, H0LGQSB, A9OKACB, THYROIDAB, FT3, T4FREE HgA1c: No results found for: LABA1C No results found for: EAG BNP: No results for input(s): BNP in the last 72 hours. PT/INR: No results for input(s): PROTIME, INR in the last 72 hours. APTT:No results for input(s): APTT in the last 72 hours. CARDIAC ENZYMES:No results for input(s): CKTOTAL, CKMB, CKMBINDEX, TROPHS in the last 72 hours. FASTING LIPID PANEL:No results found for: CHOL, HDL, LDLDIRECT, LDLCALC, TRIG LIVER PROFILE: Recent Labs 12/13/23 1200 12/14/23 0457 AST 15 14 ALT 15 13 LABALBU 4.3 3.8 Pertinent imaging studies: -TTE 12/14/2023: No gross evidence of intracardiac mass or thrombus. Interatrial Septum: Interatrial septum was not well visualized. No interatrial shunt visualized with color Doppler. Left Ventricle: Normal left ventricular systolic function with EF 55%. Left ventricle size is normal. Findings consistent with mild concentric hypertrophy. Normal wall motion. Normal diastolic function. Aortic Valve: No significant stenosis. Tricuspid Valve: Trace regurgitation., RVSP 32mmHg. Image quality is adequate. -ECG 10/26/2023: Personally reviewed, normal sinus rhythm, no ST-T wave changes. Impression/Plan: 48 yo F with PMH of HTN, HLD, borderline DM, polysubstance abuse, tobacco abuse who presented to the hospital with vaginal/groin abscess, also has right common iliac thrombus with right big toe dark discoloration, vascular surgery following, requesting cardiac evaluation for cardiac source of emboli. Patient denies having any chest pain, shortness of breath or dyspnea on exertion, neither now nor in the past. She reports that she had her left lower leg swollen over the last month Right common iliac thrombus: Evaluating for cardiac source of emboli TTE with normal limit Obtain STEPHANIE Keep patient on telemetry Obtain Zio patch upon discharge to evaluate for possible atrial fibrillation Jeanmarie Samayoa MD Interventional Cardiology/ Structural heart disease * Chris Newman APRN - HAND SCRAPER - 12/15/2023 10:42 AM EST Vascular Surgery Progress Note CC: Blue toe syndrome HISTORY: The patient is awake, alert, and oriented. Still with pain in the right foot. Unchanged for a few weeks. Has vaginal drainage she is concerned about and is the main reason she came to the hospital. Left breast wound with bloody drainage. IMPRESSION: Blue toe syndrome, right lower extremity PLAN: Pt being worked up from cardiology to evaluate for source of emboli. Scheduled for STEPHANIE next week and will discharge on Zio patch to evaluate for afib. CT chest pending. ABIs from yesterday reviewed - R SAVANNA 0.89, L SAVANNA 1.40. Continue to monitor neurovascular exam. Keep left foot clean and dry.She should continue taking asa, pletal and xarelto. RETAIL WORKER consulted for vaginal discharge. No vascular surgery interventions planned at this time. 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 ([facility]) I75.021 Aortic mural thrombus ([facility]) I74.10 Current Medications: sodium chloride ketorolac, sodium chloride, sodium chloride flush, sodium chloride, potassium chloride OR potassium alternative oral replacement OR potassium chloride, magnesium sulfate, ondansetron OR ondansetron, senna, aluminum & magnesium hydroxide-simethicone, acetaminophen OR acetaminophen pantoprazole 40 mg Oral QAM AC rivaroxaban 20 mg Oral Daily with breakfast doxycycline (VIBRAMYCIN) IV 100 mg IntraVENous Q12H sodium chloride flush 5-40 mL IntraVENous 2 times per day metroNIDAZOLE 500 mg Oral 3 times per day aspirin 81 mg Oral Daily cilostazol 100 mg Oral BID PHYSICAL EXAM: Vitals: 12/15/23 0730 BP: 126/75 Pulse: (!) 115 Resp: 18 Temp: 98.5 F (36.9 C) SpO2: 95% CONSTITUTIONAL: awake, alert, cooperative, no apparent distress LUNGS: no increased work of breathing, good air exchange CARDIOVASCULAR: regular rate and rhythm ABDOMEN: soft, non-distended and non-tender EXTREMITIES: 2+ edema to right foot She has rubor and discoloration to her forefoot especially on the plantar aspect Right Left Brachial Radial 2 2 Femoral Popliteal Dorsalis Pedis Multiphasic 2 Posterior Tibial Multiphasic 2 LABS: Lab Results Component Value Date WBC 9.2 12/14/2023 HGB 13.7 12/14/2023 HCT 41.5 12/14/2023 PLT 381 12/14/2023 K 3.6 12/15/2023 BUN 7 12/15/2023 CREATININE 0.7 12/15/2023 RADIOLOGY: * Louie Santiago MD - 12/15/2023 8:57 AM EST Images from the original note were not included. [facility] Progress Note Admitting Date and Time: 12/13/2023 3:16 PM had concerns including Abscess (Reports vaginal abscess. Reports hx of them in the past and has to have it drained. ). Admit Dx: General weakness [R53.1] History of substance abuse (HCC) [F19.11] Mental health problem [F48.9] Cellulitis, unspecified cellulitis site [L03.90] Synopsis: Ms. Vinod Ann, a 48 y.o. year old female who has a past medical history of Alcohol abuse, Breast abscess, and Drug abuse (HCC). presents with Abscess (Reports vaginal abscess. Reports hx of themin the past and has to have it drained, generalized weakness, over past week, followed by vascular surgery for PVD and discoloration of her rt toes, and started on xarelto, not able to take care of herself. No nausea or vomiting no chest pain or SOB no double vision or limb weakness. Has hx/o drug abuse and also concern of abscess to the groin. Admitted to the hospital for further care Subjective: Patient is being followed for General weakness [R53.1] History of substance abuse (HCC) [F19.11] Mental health problem [F48.9] Cellulitis, unspecified cellulitis site [L03.90] Patient was seen and examined this morning at bedside right toe pain improving NAD ROS: denies fever, chills, cp, sob, n/v, MANUEL unless stated above. pantoprazole 40 mg Oral QAM AC rivaroxaban 20 mg Oral Daily with breakfast doxycycline (VIBRAMYCIN) IV 100 mg IntraVENous Q12H sodium chloride flush 5-40 mL IntraVENous 2 times per day metroNIDAZOLE 500 mg Oral 3 times per day aspirin 81 mg Oral Daily cilostazol 100 mg Oral BID ketorolac, 15 mg, Q8H PRN sodium chloride flush, 5-40 mL, PRN sodium chloride, , PRN potassium chloride, 40 mEq, PRN Or potassium alternative oral replacement, 40 mEq, PRN Or potassium chloride, 10 mEq, PRN magnesium sulfate, 2,000 mg, PRN ondansetron, 4 mg, Q8H PRN Or ondansetron, 4 mg, Q6H PRN senna, 1 tablet, Daily PRN aluminum & magnesium hydroxide-simethicone, 30 mL, Q6H PRN acetaminophen, 650 mg, Q6H PRN Or acetaminophen, 650 mg, Q6H PRN Objective: BP 126/75 Pulse (!) 115 Temp 98.5 F (36.9 C) (Temporal) Resp 18 Ht 1.676 m (5' 6) Wt 97.5 kg (214 lb 15.2 oz) SpO2 95% BMI 34.69 kg/m General Appearance: alert and oriented to person, place and time and in no acute distress Skin: warm and dry Head: normocephalic and atraumatic Eyes: pupils equal, round, and reactive to light, extraocular eye movements intact, conjunctivae normal Neck: neck supple and non tender without mass Pulmonary/Chest: clear to auscultation bilaterally- no wheezes, rales or rhonchi, normal air movement, no respiratory distress Cardiovascular: normal rate, normal S1 and S2 and no carotid bruits Abdomen: soft, non-tender, non-distended, normal bowel sounds, no masses or organomegaly Extremities: blue discoloration of the right big toe Neurologic: no cranial nerve deficit and speech normal Recent Labs 12/13/23 1200 12/14/23 0457 12/15/23 0441 NA 134 135 135 K 3.5 3.0* 3.6 CL 95* 98 99 CO2 27 24 25 BUN 8 6 7 CREATININE 0.8 0.7 0.7 GLUCOSE 96 136* 106* CALCIUM 9.4 8.8 8.9 Recent Labs 12/13/23 1200 12/14/23 0457 12/14/23 1349 WBC 9.5 8.7 9.2 RBC 4.80 4.51 4.66 HGB 14.1 13.2 13.7 HCT 42.0 40.2 41.5 MCV 87.5 89.1 89.1 MCH 29.4 29.3 29.4 MCHC 33.6 32.8 33.0 RDW 14.5 14.5 14.6 PLT 401 367 381 MPV 9.7 9.7 9.7 Images, labs, consultants recommendations and overnight events were noted and reviewed. 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 * PAD/Right toe pain Faint pulses Known medical condition of blue toe syndrome VS following, cilatazole and Asprin Continue anticoagulation NSAIDS PRN Generalized weakness Follow blood culture Elevated ESR and CRP Rule out endocarditis For STEPHANIE Cardiology following Vaginal discharge Obtain wet rpep HIV screening and STI Diflucan and metronidazole OBGYN consult Common bile duct dilatation possibly related to dysfunction at level of the ampulla Clinically stable Monitor Consider MRCP Known hx of Drug use Monitor Placement Form [facility]/ following Accepted to [facility], Pre cert pending NOTE: This report was transcribed using voice recognition software. Every effort was made to ensureaccuracy; however, inadvertent computerized it application development manager errors may be present. * Louie Santiago MD - 12/14/2023 3:05 PM EST Images from the original note were not included. [facility] Hospitalist Progress Note Admitting Date and Time: 12/13/2023 3:16 PM had concerns including Abscess (Reports vaginal abscess. Reports hx of them in the past and has to have it drained. ). Admit Dx: General weakness [R53.1] History of substance abuse ([facility]) [F19.11] Mental health problem [F48.9] Cellulitis, unspecified cellulitis site [L03.90] Synopsis: Ms. Vinod Ann, a 48 y.o. year old female who has a past medical history of Alcohol abuse, Breast abscess, and Drug abuse ([facility]). presents with Abscess (Reports vaginal abscess. Reports hx of themin the past and has to have it drained, generalized weakness, over past week, followed by vascular surgery for PVD and discoloration of her rt toes, and started on xarelto, not able to take care of herself. No nausea or vomiting no chest pain or SOB no double vision or limb weakness. Has hx/o drug abuse and also concern of abscess to the groin. Admitted to the hospital for further care Subjective: Patient is being followed for General weakness [R53.1] History of substance abuse (HCC) [F19.11] Mental health problem [F48.9] Cellulitis, unspecified cellulitis site [L03.90] Patient was seen and examined this morning at bedside C/o right toe pain ROS: denies fever, chills, cp, sob, n/v, MANUEL unless stated above. pantoprazole 40 mg Oral QAM AC rivaroxaban 20 mg Oral Daily with breakfast doxycycline (VIBRAMYCIN) IV 100 mg IntraVENous Q12H sodium chloride flush 5-40 mL IntraVENous 2 times per day metroNIDAZOLE 500 mg Oral 3 times per day aspirin 81 mg Oral Daily cilostazol 100 mg Oral BID fluconazole 150 mg Oral Once sodium chloride flush, 5-40 mL, PRN sodium chloride, , PRN potassium chloride, 40 mEq, PRN Or potassium alternative oral replacement, 40 mEq, PRN Or potassium chloride, 10 mEq, PRN magnesium sulfate, 2,000 mg, PRN ondansetron, 4 mg, Q8H PRN Or ondansetron, 4 mg, Q6H PRN senna, 1 tablet, Daily PRN aluminum & magnesium hydroxide-simethicone, 30 mL, Q6H PRN acetaminophen, 650 mg, Q6H PRN Or acetaminophen, 650 mg, Q6H PRN ketorolac, 15 mg, Q6H PRN Objective: BP 107/70 Pulse (!) 106 Temp 97 F (36.1 C) (Temporal) Resp 16 Ht 1.676 m (5' 6) Wt 97.5 kg (215 lb) SpO2 94% BMI 34.70 kg/m General Appearance: alert and oriented to person, place and time and in no acute distress Skin: warm and dry Head: normocephalic and atraumatic Eyes: pupils equal, round, and reactive to light, extraocular eye movements intact, conjunctivae normal Neck: neck supple and non tender without mass Pulmonary/Chest: clear to auscultation bilaterally- no wheezes, rales or rhonchi, normal air movement, no respiratory distress Cardiovascular: normal rate, normal S1 and S2 and no carotid bruits Abdomen: soft, non-tender, non-distended, normal bowel sounds, no masses or organomegaly Extremities: blue discoloration of the right big toe Neurologic: no cranial nerve deficit and speech normal Recent Labs 12/13/23 1200 12/14/23 0457 NA 134 135 K 3.5 3.0* CL 95* 98 CO2 27 24 BUN 8 6 CREATININE 0.8 0.7 GLUCOSE 96 136* CALCIUM 9.4 8.8 Recent Labs 12/13/23 1200 12/14/23 0457 12/14/23 1349 WBC 9.5 8.7 9.2 RBC 4.80 4.51 4.66 HGB 14.1 13.2 13.7 HCT 42.0 40.2 41.5 MCV 87.5 89.1 89.1 MCH 29.4 29.3 29.4 MCHC 33.6 32.8 33.0 RDW 14.5 14.5 14.6 PLT 401 367 381 MPV 9.7 9.7 9.7 Images, labs, consultants recommendations and overnight events were noted and reviewed. ASSESSMENT AND PLAN: Principal Problem: General weakness Resolved Problems: * No resolved hospital problems. * Right toe pain Faint pulses Known medical condition of blue toe syndrome Consult VS Continue anticoagulation NSAIDS for pain Generalized weakness Follow blood culture Obtain ESR and CRP Rule out endocarditis Vaginal discharge Obtain wet rpep HIV screening and STI Diflucan and metronidazole OBGYN consult Common bile duct dilatation possibly related to dysfunction at level of the ampulla Clinically stable Monitor Consider MRCP Known hx of Drug use Monitor Placement Form [facility]/CM following Accepted to [facility], Pre cert pending NOTE: This report was transcribed using voice recognition software. Every effort was made to ensureaccuracy; however, inadvertent computerized it application development manager errors may be present. * Nandini Slater - 12/14/2023 2:57 PM EST Left message for Dr. Harris for obgyn consult. Pt added to census. * Luis Dennis, OT - 12/14/2023 2:37 PM EST OCCUPATIONAL THERAPY INITIAL EVALUATION [facility] [address], [place] Date:12/14/2023 Patient Name: Vinod Ann : 1975 Room: [facility]84[facility] Evaluating OT: Luis Dennis OTR/L [id number] Referring Provider: Roshan Kapadia MD Specific Provider Orders/Date: OT evaluation and treatment 12/14/23 0215 Diagnosis: General weakness [R53.1] History of substance abuse (HCC) [F19.11] Mental health problem [F48.9] Cellulitis, unspecified cellulitis site [L03.90] Pertinent Medical History: has a past medical history of Alcohol abuse, Breast abscess, and Drug abuse (HCC). Pt admitted to the hospital 12/13 with c/o abscess in her groin Orders received, chart reviewed, eval complete. Precautions: Fall Risk Assessment of current deficits [x] Functional mobility [x]ADLs [x] Strength []Cognition [x] Functional transfers [] IADLs [x] Safety Awareness [x]Endurance [] Fine Coordination [x] Balance [] Vision/perception []Sensation []Gross Motor Coordination [] ROM [] Delirium [] Motor Control OT PLAN OF CARE OT POC based on physician orders, patient diagnosis and results of clinical assessment Frequency/Duration 1-3 days/wk for 2 weeks PRN Specific OT Treatment to include: * Instruction/training on adapted ADL techniques and AE recommendations to increase functional independence within precautions * Training on energy conservation strategies, correct breathing pattern and techniques to improve independence/tolerance for self-care routine * Functional transfer/mobility training/DME recommendations for increased independence, safety, andfall prevention * Patient/Family education to increase follow through with safety techniques and functional independence * Recommendation of environmental modifications for increased safety with functional transfers/mobility and ADLs * Therapeutic exercise to improve motor endurance, ROM, and functional strength for ADLs/functionaltransfers * Therapeutic activities to facilitate/challenge dynamic balance, stand tolerance for increased safety and independence with ADLs * Delirium prevention/treatment Recommended Adaptive Equipment: TBD Pt is a bit inconsistent with PLOF compared to PT eval Home Living/PLOF: Pt is from [facility] - [address] home with 3 + 1 JOSE F Bedroom and bathroom are on the 2nd level. Pt reports difficulty getting to 2nd level and staying on main level often. 1/2 bath on the first floor (reports the toilet is broken) Tub/shower on the 2nd floor Pt reports she was not using any AD and has no equipment at facility. Per PT eval, Pt reported using FWW Pleasant and cooperative throughout session Pain Level: 10 R great toe OT provided: repositioning and diversion Cognition: A&O: 02/06; Follows single step directions: good Follows multi step directions: poor Easily distracted - cues for task completion and following multi step commands Memory: fair Sequencing: good Problem solving: fair Judgement/safety: fair Functional Assessment: AM-PAC Daily Activity Raw Score: Initial Eval Status Date: 12/14/2023 Treatment Status Date: STG=LTG Time frame: 10-14 days Feeding Set up Mod I Grooming Set up Seated EOB 2/2 poor activity tolerance and increased pain in standing Mod I UB Dressing Min A for line awareness and management Mod I LB Dressing Mod A 2/2 decreased balance in standing Mod I Bathing Mod A Simulated Mod I Toileting Mod A For clothing management and balance Mod I Bed Mobility Rolling L/R: Mod I Supine to sit: Mod I Sit to supine: Mod I Functional Transfers Sit to stand: Stand by assist Stand to sit: Stand by assist Stand pivot: Stand by assist with FWW - Pt does not tolerate any wbing in RLE 2/2 pain EOB><BSC Mod I Functional Mobility NT 2/2 increased pain s/p toileting tasks Mod I with AAD Balance Sitting: Stand by assist Standing: Stand by assist Sitting: Mod I Standing: Mod I Activity Tolerance Poor Fair+ Visual/ Perceptual Grossly WFL BUE ROM/Strength/ Fine motor Coordination Hand dominance: R RUE: ROM WFL Strength: grossly 4+/5 Mobile Paint Specialist Strength: WFL Coordination: WFL LUE: ROM WFL Strength: grossly 4+/5 Mobile Paint Specialist Strength: WFL Coordination: WFL Hearing: WFL Sensation: No c/o numbness or tingling Tone: WFL Edema: None noted Comments: RN cleared patient for OT. Upon arrival, patient was seated EOB and agreeable to OT session. no visitors present throughout session. At end of session, patient semi-supine in bed ; with call light and phone within reach; all lines and tubes intact. Patient presents with decreased safety awareness, activity tolerance , and balance . Pt demonstrated decreased independence during ADLs, bed mobility , functional transfers, and functional mobility. Pt would benefit from continued skilled OT to increase safety and independence with completion of ADL tasks and functional mobility for improved quality of life Treatment: OT treatment provided this date includes: OT edu pt/family on role of OT in the acute care setting. Pt verbalized understanding Rehab Potential: Good for established goals Patient / Family Goal: to get better and reduce pain in R toe Patient and/or family were instructed on functional diagnosis, prognosis/goals and OT plan of care.Pt/family demonstrated understanding. Eval Complexity: Description Performance deficits Clinical decision making Co-morbidities affecting occupational performance Modification or assistance to complete eval Low Complexity 1 to 3 [] Low [] None [] None [] Moderate Complexity 3 to 5 [x] Mod [] Maybe [] Min to Mod [x] High Complexity 5 or more [] High [x] Yes [x] Max [] The above evaluation is classified as moderate complexity based off the noted performance deficits,personal factors, co-morbidities, assistance required, and other factors as noted in the clinical evaluation and functional testing. Time In: 1426 Time Out: 1435 Total Treatment Time: 9 minutes Min Units OT Eval Low 22803 OT Eval Medium 68668 x 1 OT Eval High 80931 OT Re-Eval 88588 [place] 58529 Therapeutic Activities 52558 ADL/Self Care 74364 Orthotic Management 31516 Neuro Re-Ed 81672 Non-Billable Time Evaluation Time includes thorough review of current medical information, gathering information on past medical history/social history and prior level of function, completion of standardized testing/informal observation of tasks, assessment of data and education on plan of care and goals. Luis Dennis OTR/L [id number] * Nandini Slater - 12/14/2023 2:07 PM EST MEMO Orozco notified of cardiology consult. Pt added to census. * Nandini Slater - 12/14/2023 10:[address] Medina notified of vascular surgery consult. Pt added to census. * Nandini Slater - 12/14/2023 8:[address] eLi notified of podiatry consult. Pt added to census. * Robi Farris, PT - 12/14/2023 8:58 AM EST Physical Therapy Initial Assessment Name: Vinod Ann : 1975 Date of Service: 12/14/2023 Evaluating PT: Robi Farris PT, DPT [id number] Room #: 8408/[id number] Diagnosis: General weakness [R53.1] History of substance abuse (HCC) [F19.11] Mental health problem [F48.9] Cellulitis, unspecified cellulitis site [L03.90] PMHx/PSHx: has a past medical history of Alcohol abuse, Breast abscess, and Drug abuse (HCC). Procedure/Surgery: Precautions: Falls, Alarms/cognition Equipment Needs: WW SUBJECTIVE: Pt was a questionable historian. Pt lives in sober living in a 2 story home. Bed is on second floorand bath is on second floor. Pt ambulated with ww independently [employer] ADVISOR. Equipment Owned: OBJECTIVE: Initial Evaluation Date: 12/14/23 Treatment Short Term/ Loan Collector Goals AM-PAC 6 Clicks Was pt agreeable to Eval/treatment? Yes Does pt have pain? Mild BLE pain, Severe R big toe pain Bed Mobility Rolling: SBA Supine to sit: SBA Sit to supine: SBA Scooting: SBA Rolling: Independent Supine to sit: Independent Sit to supine: Independent Scooting: Independent Transfers Sit to stand: SBA Stand to sit: SBA Stand pivot: SBA with ww Sit to stand: Supervision Stand to sit: Supervision Stand pivot: Supervision Ambulation 10 feet with SBA ww 100 feet with ww Supervision Stair negotiation: ascended and descended NT 4 steps with single rail Supervision ROM BUE: Defer to OT BLE: WNL Strength BUE: Defer to OT BLE: 4/5 Improve 1 MMT Balance Sitting EOB: SBA Dynamic Standing: SBA with ww Sitting EOB: Supervision Dynamic Standing: Supervision Pt is A & O x 4. Pt able to to follow multi-step commands. Sensation: WNL Edema: WNL Vitals: HR 103 Spo2 99% PRE HR 108 Spo2 96% POST Therapeutic Exercises: Functional Mobility Patient education Pt educated on role of PT Patient response to education: Pt verbalized understanding Pt demonstrated skill Pt requires further education in this area Yes Yes Yes ASSESSMENT: Conditions Requiring Skilled Therapeutic Intervention: [x]Decreased strength []Decreased ROM [x]Decreased functional mobility [x]Decreased balance [x]Decreased endurance []Decreased posture []Decreased sensation [x]Decreased coordination []Decreased vision [x]Decreased safety awareness [x]Increased pain Comments: Pt agreeable to PT evaluation. Pt performed bed mobility, functional transfers, and ambulation with no assistance. Pt ambulated short distance to mimic bathroom distance. Pts gait was slow and antalgic. Pt maintained no weight through forefoot and demonstrated heel weightbearing. Podiatryconsult pending. Pt was limited due to pain, fatigue, and decreased endurance. Cues given for ww approximation. Patient would benefit from continued skilled PT to maximize functional mobility independence. Bed Alarm Activated Treatment: Patient practiced and was instructed in the following treatment: Bed Mobility- Cues given for proper sequencing for maximal independence and safety. Functional Transfers- Verbal cues for proper positioning and sequencing to perform transfers safelywith maximum independence. Gait Training-Verbal cues for proper positioning and sequencing using assistive device to maximize functional mobility independence. Pt's/ family goals 1. Get better Prognosis is good for reaching above PT goals. Patient and or family understand(s) diagnosis, prognosis, and plan of care. yes PHYSICAL THERAPY PLAN OF CARE: PT POC is established based on physician order and patient diagnosis Referring provider/PT Order: 12/14/23214 PT eval and treat Start: 12/14/23214, End: 12/14/23214, ONE TIME, Standing Count:1 Occurrences, R Roshan Kapadia MD Diagnosis: General weakness [R53.1] History of substance abuse (HCC) [F19.11] Mental health problem [F48.9] Cellulitis, unspecified cellulitis site [L03.90] Specific instructions for next treatment: Gait training Current Treatment Recommendations: [x] Strengthening to improve independence with functional mobility [] ROM to improve independence with functional mobility [x] Balance Training to improve static/dynamic balance and to reduce fall risk [x] Endurance Training to improve activity tolerance during functional mobility [x] Transfer Training to improve safety and independence with all functional transfers [x] Gait Training to improve gait mechanics, endurance and assess need for appropriate assistive device [x] Stair Training in preparation for safe discharge home and/or into the community [] Positioning to prevent skin breakdown and contractures [x] Safety and Education Training [x] Patient/Caregiver Education [] HEP [] Other PT supervisor long goods treatment goals are located in above grid Frequency of treatments: 2-5x/week x 1-2 weeks. Time in 0740 Time out 0813 Total Treatment Time 8 minutes Evaluation Time includes thorough review of current medical information, gathering information on past medical history/social history and prior level of function, completion of standardized testing/informal observation of tasks, assessment of data and education on plan of care and goals. CPT codes: [x] Low Complexity PT evaluation 79602 [] Moderate Complexity PT evaluation 31776 [] High Complexity PT evaluation 57880 [] PT Re-evaluation 44438 [] Gait training 76708 0 minutes [] Manual therapy 34322 0 minutes [x] Therapeutic activities 12895 8 minutes [] Therapeutic exercises 72431 0 minutes [] Neuromuscular reeducation 02585 0 minutes Kaity Quintero, SPT Robi Farris PT, DPT [id number] * Rosanna Teague RN - 12/14/2023 3:33 AM EST See new orders: per patient not to be taking advil bc of GI issues. Doctor made aware and see new orders. * Elham Vallejo RN - 12/14/2023 3:15 AM EST 4 Eyes Skin Assessment NAME: Vinod Ann DATE OF : 1975 The patient is being assessed for Admission I agree that at least one RN has performed a thorough Head to Toe Skin Assessment on the patient. ALL assessment sites listed below have been assessed. Areas assessed by both nurses: Head, Face, Ears, Shoulders, Back, Chest, Arms, Elbows, Hands, Sacrum. Buttock, Coccyx, Ischium, Legs. Feet and Heels, Under Medical Devices , and Other Right big toe, purple in color, cool to touch,left breast .5cm x .7 cm, BLE dry and flaky Does the Patient have a Wound? No noted wound(s) Goran Prevention initiated by RN: Yes Wound Care Orders initiated by RN: Yes Pressure Injury (Stage 3,4, Unstageable, DTI, NWPT, and Complex wounds) if present, place Wound referral order by RN under LOCAL COMPANY REFRIGERATED TRUCK DRIVER: No New Ostomies, if present place, Ostomy referral order under LOCAL COMPANY REFRIGERATED TRUCK DRIVER: No Nurse 1 eSignature: SHARE this note so that the co-signing nurse can place an eSignature Nurse 2 eSignature: documented in this encounterBON [facility] course Narrative* Aaliyah Alex MD - 12/19/2023 11:49 AM EST Images from the original note were not included. [facility] Hospitalist Physician Discharge Summary Teresa Clay PA-C [address] [place] [id number] Call in 1 day for follow-up appointment [facility]ly [facility] [address] [facility] [id number] Rae Clayton MD [address] [place] [id number] Follow up breast care followup. chronic b/l abcess rule out cancer. Activity level: As tolerated Dispo: [place] Condition on discharge: Stable Patient ID: Vinod Ann [id number] 48 y.o. 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 * Consults: IP CONSULT TO SOCIAL WORK IP CONSULT TO INTERNAL MEDICINE IP CONSULT TO PODIATRY IP CONSULT TO VASCULAR SURGERY IP CONSULT TO CARDIOLOGY IP CONSULT TO LABORATORY EQUIPMENT CLEANER IP CONSULT TO LABORATORY EQUIPMENT CLEANER IP CONSULT TO INFECTIOUS DISEASES IP CONSULT TO GENERAL SURGERY Hospital Course: Patient Vinod Ann is a 48 y.o. presented with General weakness [R53.1] History of substance abuse (HCC) [F19.11] Mental health problem [F48.9] Cellulitis, unspecified cellulitis site [L03.90] Ms. Vinod Ann, a 48 y.o. year old female who has a past medical history of Alcohol abuse, Breast abscess, and Drug abuse (HCC). presents with Abscess (Reports vaginal abscess. Reports hx of themin the past and has to have it drained, generalized weakness, over past week, followed by vascular surgery for PVD and discoloration of her rt toes, and started on xarelto, not able to take care of herself. No nausea or vomiting no chest pain or SOB no double vision or limb weakness. Has hx/o drug abuse and also concern of abscess to the groin. Admitted to the hospital for further care. Patient has RLE embolic ischemic foot pain, Right common iliac thrombus, and generalized weakness, Podiatry and vascular on board, no acute intervention, conservative management, Continue cilatazole and Asprin, Continue anticoagulation. Cardiology consulted to find source of emboli, TTE/STEPHANIE unremarkable. Blood cultures negative, elevated inflammatory markers. Patient unable to sleep at night due to the pain, lower extremity, trial of gabapentin with improvement, to continue on discharge. No A- fib on telemetry, patient to have Zio patch on discharge. Fungal vaginitis, continue miconazole vaginal cream. Patient has chronic breast wounds bilaterally for the last several years, ID consulted, patient willcomplete a total of 7 days of Augmentin oral, and follow-up with breast surgeon outpatient to rule out malignancy. Patient stable for discharge. Discharge Exam: General Appearance: alert and oriented to person, place and time and in no acute distress Skin: warm and dry Head: normocephalic and atraumatic Eyes: pupils equal, round, and reactive to light, extraocular eye movements intact, conjunctivae normal Neck: neck supple and non tender without mass Pulmonary/Chest: clear to auscultation bilaterally- no wheezes, rales or rhonchi, normal air movement, no respiratory distress Cardiovascular: normal rate, normal S1 and S2 and no carotid bruits Abdomen: soft, non-tender, non-distended, normal bowel sounds, no masses or organomegaly Extremities: no cyanosis, no clubbing and no edema Neurologic: no cranial nerve deficit and speech normal I/O last 3 completed shifts: In: 1300 [P.O.:1200; I.V.:100] Out: - I/O this shift: In: 480 [P.O.:480] Out: - LABS: Recent Labs 12/17/23 0508 NA 134 K 3.5 CL 99 CO2 23 BUN 6 CREATININE 0.7 GLUCOSE 178* CALCIUM 8.9 No results for input(s): WBC, RBC, HGB, HCT, MCV, MCH, MCHC, RDW, PLT, MPV in the last 72 hours. No results for input(s): POCGLU in the last 72 hours. Imaging: Echo (TTE) complete (PRN contrast/bubble/strain/3D) Result Date: 12/14/2023 No gross evidence of intracardiac mass or thrombus. Interatrial Septum: Interatrial septum was not well visualized. No interatrial shunt visualized with color Doppler. Left Ventricle: Normal left ventricular systolic function with EF 55%. Left ventricle size is normal. Findings consistent with mildconcentric hypertrophy. Normal wall motion. Normal diastolic function. Aortic Valve: No significantstenosis. Tricuspid Valve: Trace regurgitation., RVSP 32mmHg. Image quality is adequate. XR FOOT RIGHT (MIN 3 VIEWS) Result Date: 12/14/2023 EXAMINATION: THREE XRAY VIEWS OF THE RIGHT FOOT 12/14/2023 2:49 pm COMPARISON: None. HISTORY: ORDERING SYSTEM PROVIDED HISTORY: right foot pain TECHNOLOGIST PROVIDED HISTORY: Reason for exam:->rightfoot pain What reading provider will be dictating this exam?->CRC FINDINGS: There is no evidenceof acute fracture. There is normal alignment of the tarsometatarsal joints. There is an osteophyte along the medial aspect of the 1st metatarsal-phalangeal articulation compatible with chronic degenerative joint change. There is a prominent plantar calcaneal spur. There is soft tissue swelling surrounding the ankle, can be associated with underlying ligamentous injury. No acute joint abnormality.No focal osseous lesion. No focal soft tissue abnormality. No acute osseous abnormality. Prominent plantar calcaneal spur. Vascular lower extremity arterial segmental pressures w PPG Result Date: 12/14/2023 On the right side, 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, with an ankle-brachial index of 0.89 with the biphasic ankle Doppler tracings diminished but adequate flow to the metatarsal area, but patient is significantly diminished pulse volume recordings over the toes almost flat On the left side, normal ankle arm index, normal triphasic ankle Doppler tracings, and good arterial flow to the foot and the toes based upon the pulse volume recordings CT ABDOMEN PELVIS W IV CONTRAST Additional Contrast? None Result Date: 12/13/2023 EXAMINATION: CT OF THE ABDOMEN AND PELVIS WITH CONTRAST 12/13/2023 1:26 pm TECHNIQUE: CT of the abdomen and pelvis was performed with the administration of intravenous contrast. Multiplanar reformattedimages are provided for review. Automated exposure control, iterative reconstruction, and/or weightbased adjustment of the mA/kV was utilized to reduce the radiation dose to as low as reasonably achievable. COMPARISON: December 08, 2023 HISTORY: ORDERING SYSTEM PROVIDED HISTORY: groin abscess infection? TECHNOLOGIST PROVIDED HISTORY: Reason for exam:->groin abscess infection? Additional Contrast?->None Decision Support Exception - unselect if not a suspected or confirmed emergency medical condition->Emergency Medical Condition (MA) What reading provider will be dictating this exam?->CRC FINDINGS: No evidence of abscess or focal inflammation involving right or left groin. No evidence of abscess or inflammation involving the peroneal soft tissue. No bowel obstruction, free air, or free fluid. Single prominent diverticulum is associated with the left colon. The appendix is unremarkable. There is generalized decreased attenuation throughout liver suggesting hepatic steatosis. There is mild intrahepatic bile duct dilatation. There is prominence of the common bile duct measuring up to 13 mm in diameter. There is evidence of cholecystectomy. Pancreas is unremarkable. Spleen is normal in size. Adrenal glands are unremarkable. Normal attenuation to both kidneys. No hydronephrosis or perinephric edema. No retroperitoneal lymphadenopathy. Urinary bladder is unremarkable. No pneumonia in the visualized lower lung diez. 1. No evidence of groin or perineal abscess or focal inflammation. 2. Hepatic steatosis. 3. Mild diverticulosis. 4. Mild nonspecific intrahepatic bile duct dilatation as well as prominent diameter ofthe common bile duct possibly related to dysfunction at level of the ampulla. If clinically warranted, MRCP may be helpful for further evaluation. Patient Instructions: Medication List START taking these medications amoxicillin-clavulanate 875-125 MG per tablet Commonly known as: AUGMENTIN Take 1 tablet by mouth every 12 hours for 8 doses Replaces: AUGMENTIN PO aspirin 81 MG EC tablet Take 1 tablet by mouth daily cilostazol 100 MG tablet Commonly known as: PLETAL Take 1 tablet by mouth 2 times daily gabapentin 100 MG capsule Commonly known as: NEURONTIN Take 2 capsules by mouth nightly for 45 days. hydrocortisone 1 % cream Apply topically 2 times daily. miconazole 2 % vaginal cream Commonly known as: MICOTIN Place vaginally nightly. CHANGE how you take these medications rivaroxaban 20 MG Tabs tablet Commonly known as: Xarelto Take 1 tablet by mouth daily (with breakfast) What changed: Another medication with the same name was removed. Continue taking this medication, and follow the directions you see here. CONTINUE taking these medications albuterol sulfate HFA 108 (90 Base) MCG/ACT inhaler Commonly known as: PROVENTIL;VENTOLIN;PROAIR * amLODIPine 2.5 MG tablet Commonly known as: NORVASC * amLODIPine 5 MG tablet Commonly known as: NORVASC ARIPiprazole 10 MG tablet Commonly known as: ABILIFY brompheniramine-pseudoephedrine 1-15 MG/5ML Elix elixir cloNIDine 0.1 MG tablet Commonly known as: CATAPRES fluticasone 50 MCG/ACT nasal spray Commonly known as: FLONASE hydroCHLOROthiazide 25 MG tablet Commonly known as: HYDRODIURIL hydrOXYzine pamoate 50 MG capsule Commonly known as: VISTARIL loratadine 10 MG tablet Commonly known as: CLARITIN mirtazapine 30 MG tablet Commonly known as: REMERON omeprazole 40 MG delayed release capsule Commonly known as: PRILOSEC oxyBUTYnin 15 MG extended release tablet Commonly known as: DITROPAN XL Vitamin D3 1.25 MG (41290 UT) Caps * This list has 2 medication(s) that are the same as other medications prescribed for you. Read thedirections carefully, and ask your doctor or other care provider to review them with you. STOP taking these medications AUGMENTIN PO Replaced by: amoxicillin-clavulanate 875-125 MG per tablet famotidine 20 MG tablet Commonly known as: PEPCID ibuprofen 600 MG tablet Commonly known as: ADVIL;MOTRIN meloxicam 7.5 MG tablet Commonly known as: MOBIC ofloxacin 0.3 % otic solution Commonly known as: FLOXIN pregabalin 25 MG capsule Commonly known as: LYRICA risperiDONE 0.5 MG tablet Commonly known as: RISPERDAL Where to Get Your Medications Information about where to get these medications is not yet available Ask your nurse or doctor about these medications amoxicillin-clavulanate 875-125 MG per tablet aspirin 81 MG EC tablet cilostazol 100 MG tablet gabapentin 100 MG capsule hydrocortisone 1 % cream miconazole 2 % vaginal cream 35 minutes was spent in preparing discharge papers, discussing discharge with patient, medication review, etc. Signed: documented in this encounterBON [place] [id number] History of Present illness Narrative* Onel Dobbins DPM - 12/18/2023 7:45 AM EST HFU documented in this [facility]02-12-2024 History of Present illness Narrative* Onel Dobbins DPM - 12/17/2023 7:15 AM EST HFU documented [facility] this [facility]02-11-2024 History of Present illness Narrative* Onel Dobbins DPM - 12/16/2023 7:45 AM EST HFU documented [facility] this [facility]02-10-2024 History of Present illness Narrative* Onel Dobbins DPM - 12/15/2023 12:45 PM EST HFU documented [facility] this [facility]02-09-2024 Hospital Discharge instructions* Discharge Instr - ANA* Luisa Gómez RN - 12/14/2023 2:22 PM EST Continuity of Care Form Patient Name: Vinod Ann : 1975 Admit date: 12/13/2023 Discharge date: 12/19/23 Code Status Order: Full Code Advance Directives: Admitting Physician: Roshan Kapadia MD PCP: Teresa Clay PA-C Discharging Nurse: Luisa Gómez RN Discharging Hospital Unit/Room#: 8408/8408-B Discharging Unit Emergency Contact: Extended Emergency Contact Information Primary Emergency Contact: crissy wood Mobile Relation: Brother/Sister Secondary Emergency Contact: destiny casas Mobile Relation: Other Preferred language: Nepalese Healthcare Specialist needed? No Past Surgical History: History reviewed. No pertinent surgical history. Immunization History: There is no immunization history on file for this patient. 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 General weakness R53.1 Isolation/Infection: Isolation No Isolation Patient Infection Status None to display Nurse Assessment: Last Vital Signs: BP 107/70 Pulse (!) 106 Temp 97 F (36.1 C) (Temporal) Resp 16 Ht 1.676 m (5' 6) Wt 97.5 kg (215 lb) SpO2 94% BMI 34.70 kg/m Last documented pain score (0-10 scale): Pain Level: 10 Last Weight: Wt Readings from Last 1 Encounters: 12/14/23 97.5 kg (215 lb) Mental Status: oriented, alert, coherent, logical, thought processes intact, and able to concentrate and follow conversation IV Access: - None Nursing Mobility/ADLs: Walking Assisted Transfer Assisted Bathing Independent Dressing Independent Toileting Independent Feeding Independent Hay Baler Assisted Med Delivery whole Wound Care Documentation and Therapy: Wound 12/14/23 Breast Left;Lower small area by nipple .5x.7cm (Active) Wound Etiology Other 12/14/23 0306 Wound Length (cm) 0.5 cm 12/14/23 0306 Wound Width (cm) 0.7 cm 12/14/23 0306 Wound Surface Area (cm^2) 0.35 cm^2 12/14/23 0306 Drainage Amount Scant (moist but unmeasurable) 12/14/23 0306 Number of days: 0 Elimination: Continence: Bowel: Yes Bladder: Yes Urinary Catheter: None Colostomy/Ileostomy/Ileal Conduit: No Date of Last BM: 12/18/23 Intake/Output Summary (Last 24 hours) at 12/14/2023 1421 Last data filed at 12/14/2023 0348 Gross per 24 hour Intake 240 ml Output -- Net 240 ml I/O last 3 completed shifts: In: 1240 [P.O.:240; IV Piggyback:1000] Out: - Safety Concerns: At Risk for Falls Impairments/Disabilities: None Nutrition Therapy: Current Nutrition Therapy: - Oral Diet: General, Low Fat, Low Sodium (2gm), and low cholesterol, high fiber Routes of Feeding: Oral Liquids: Thin Liquids Daily Fluid Restriction: no Last Modified Barium Swallow with Video (Video Swallowing Test): not done Treatments at the Time of Hospital Discharge: Respiratory Treatments: none Oxygen Therapy: is not on home oxygen therapy. Ventilator: - No ventilator support Rehab Therapies: Physical Therapy and Occupational Therapy Weight Bearing Status/Restrictions: No weight bearing restrictions Other Medical Equipment (for information only, NOT a DME order): none Other Treatments: none Patient's personal belongings (please select all that are sent with patient): Clothing and toiletries RN SIGNATURE: CASE MANAGEMENT/SOCIAL WORK SECTION Inpatient Status Date: 12/13/23 Readmission Risk Assessment Score: Readmission Risk Risk of Unplanned Readmission: 12 Discharging to Facility/ Agency Name: [facility] Address: [address] [place] [address] Dialysis Facility (if applicable) Name: Address: Dialysis Schedule: Phone: 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 Physician Certification: I certify the above information and transfer of Vinod Ann is necessary for the continuing treatment of the diagnosis listed and that she requires Long Term Facility for less 30 days. Update Admission H&P: No change in H&P PHYSICIAN SIGNATURE: * Attachments The following attachments cannot be sent through Care Everywhere. * Beat Your Smoking Triggers: Video (Nepalese) * Quitting Smoking: The Rewards Start Now: Video (Nepalese) * Smoking Cessation: Health Benefits: General Info (Nepalese) documented in this [facility] History of Present illness Narrative* Onel Dobbins DPM - 12/14/2023 1:00 PM EST Hospital consult documented in this encounterThree Rivers [id number] Miscellaneous Notes* Telephone Encounter - Milly Feliciano APRN.CNP - 12/10/2023 7:24 AM EST Agree with recommendations. Milly Feliciano APRN.CNP * Telephone Encounter - Verona Mulligan RN - 12/07/2023 3:54 PM EST Patient calling for advise. Reports she has severe pain in right great toe and right foot, right great toe swelling (that has worsened), a sore under her right great toe and right great toe is discolored and cold. Pt expresses circulation concerns to her right foot. Reports the right foot changes colors and is sometimes blue or purple and cold to touch. Reports tylenol has not been effective for her pain. Pt asking if she should return to ER due to concern of symptoms. This nurse advised ER dueto severe sx's. Of note, patient sees was seen by Podiatry last week due to similar symptoms and her toenails were debrided. Pt was recommended to perform good foot hygiene and inspect feet daily and F/U in 9 weeks.LE vascular studies ordered due to claudication pain-pt states she has consultation for this on 01/02. This nurse advised patient that she could attempt to contact Podiatry now for advise as well, since she was seen by them recently, however if unable to get into contact with Podiatry and in severe pain or severe sx's, to go to ER. Pt voiced understanding. Verona Mulligan RN [facility] this [facility] Miscellaneous Notes* Telephone Encounter - Vivienne Newman Ma - 10/10/2023 5:35 PM EST Fax received and forwarded to Medical Records. * Telephone Encounter - Amanda Lezama RN - 10/10/2023 4:26 PM EST Patient reports [facility], in [place],will be faxing her signed release form,to Henok Ramirez office today. Reports she is in Rehab there. Would like office to fax the requested medical records to them. Patient also wants [facility] Ramirez, to know, she appreciates all you have done for her. Patient wants you to have a Merry Min and Happy New Year. Reports she will not be returning to [place]. * Telephone Encounter - Mari Newman - 10/10/2023 1:04 PM EST Patient would like records faxed over from previous exams and lab work along with breast exam, please. [facility] Spoke with Stephon. Please advise, thank you! documented in this encounterAvita [facility]11-13-2023 Miscellaneous Notes* Telephone Encounter - Melita Klein LPN - 09/17/2023 3:21 PM EST Last OV: 08/17/23 - Next scheduled appt: 11/21/22 Patient has been identified by name and date of : Yes Requested Prescriptions Pending Prescriptions Disp Refills amLODIPine (NORVASC) 2.5 mg tablet 30 tablet 1 Sig: Take 1 tablet by mouth once daily. RX INSTRUCTIONS: Pharmacy initiated this request. No need to notify patient. Melita Klein LPN documented in this [facility]10-21-2023 Miscellaneous Notes* Telephone Encounter - Rachael Rice - 08/25/2023 12:39 PM EDT Called emergency contact states she is in rehab right now will notify. Rachael Rice * Telephone Encounter - Jontahan Landeros APRN.CNP - 08/25/2023 11:16 AM EDT Please notify that wound culture showed staph infection, the atb should work well. F/u for continued s/s. documented in this encounterAvita [facility]10-13-2023 History of Present illness Narrative* Milly Feliciano APRN.CNP - 08/17/2023 8:30 AM EDT CC: Patient presents with: Follow Up HPI Vinod Raina Seth is a 48 year old female who presents today for follow up. Over the past few years has been seen inconsistent with visits and following up depending on if she is actively clean from drugs and alcohol or if she currently using. 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 Months ago states she was given bath salts and thought it was meth. Ended up in ER was pink slipped but reports she has been fine since this experience. Has been homeless since leaving her friends that still use drugs and gave her the bath salts but trying to get into every women's house. There was a lot of drugs anddrama at [employer] so left there. Is currently staying at her sisters house and trying to get a job. Currently without a sponsor as she was supposed to find a different one but has not done so yet. Recurrent breast abscesses. Seeing Dr. Roblero. Has upcoming imaging and follow up appointment with09/04/23. Per patient he is going to cut out the breast ducts. Currently has scabs to bilateral breast but no fever, chills, redness, or drainage. Feels like she has intermittent wheezing and non-productive cough over the past year. Wheezing willfeel like it is on the right side and can be worse at night. States she saw a skip miner a few years ago without any concern for pulmonary disease. Is a current smoker and thinks maybe it was mainly occurring when smoking meth. Denies any fever chills, chest pressure, chest pain, shortness of breath or current edema. Has had intermittent dependant pedal edema in the past. Elevated blood pressure: Denies abnormal or severe headaches, dizziness, syncope, edema, chest pressure, exercise intolerance, or palpitations, Has not been on any antihypertensive medications Prediabetes: Controlled with diet. Denies increase in thirst, hunger or urination. Has had for quite a while with food tasting not right. States it tastes like the taste of antifreeze and back of tongue will have burning with certain foods. REVIEW OF SYSTEMS General: no fevers, no chills, no night sweats, no recurrent infections, no change in appetite, no change in energy, and no significant changes in weight Respiratory: See HPI Cardiovascular: no chest pain, no chest pressure, no palpitations, and no swelling GI: No nausea, vomiting, or diarrhea Endocrine: no fatigue, no polyuria, no polyphagia, and no polydipsia Neurologic: No headache, weakness, dizziness, memory loss, syncope. 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 02/15 with of mother Severe episode of recurrent major depressive disorder, without psychotic features ([facility]) Kendra Padilla Suicidal ideation PAST SURGICAL HISTORY Procedure Laterality Date ABDOMINAL SURGERY HX BREAST SURGERY HX BX OF BREAST; INCISIONAL Left 08/29/2019 [facility] [facility]- Benign COLONOSCOPY 09/22/2022 COLONOSCOPY FLX DX W/COLLJ SPEC WHEN PFRMD 12/01/2019 Colonoscopy PAST SURGICAL HISTORY OF 03/2010 gall bladder removed PAST SURGICAL HISTORY OF Left wrist surgery when she was 15 years old PAST SURGICAL HISTORY OF 2014 tubal ligation PAST SURGICAL HISTORY OF 02/2022 bilateral cyst removed, [place] ALLERGIES Cephalexin, Fenofibrate, Zoloft [Sertraline Hcl], and Clindamycin MEDICATIONS acetaminophen (TYLENOL) 325 mg tablet Take 650 mg by mouth once daily. ergocalciferol 50,000 unit capsule (VITAMIN D2, DRISDOL) Take 1 capsule by mouth one time a week. hydrOXYzine pamoate (VISTARIL) 50 mg capsule melatonin 5 mg tablet Take 5 mg by mouth. (Patient not taking: Reported on 08/16/2023) meloxicam (MOBIC) 7.5 mg tablet Take 1 tablet by mouth once daily. Take with food. multivitamin tablet Take 1 tablet by mouth once daily. (Patient not taking: Reported on 08/16/2023) omeprazole (PRILOSEC) 40 mg capsule Take 1 capsule by mouth once daily. oxybutynin ER (DITROPAN XL) 10 mg 24 hr tablet Take 1 tablet by mouth once daily. paliperidone ER (INVEGA) 3 mg 24 hr tablet Take 1 tablet by mouth once daily. (Patient not taking: Reported on 08/17/2023) FAMILY HISTORY Problem Relation Age of Onset Lung Cancer Mother at 63 Osteoporosis Mother Alcohol/Drug Mother alcohol Hypertension Father Alcohol/Drug Father alcohol Aneurysm Father abdominal Prostate Cancer Father Alcohol/Drug Sister drugs other (Aids) Sister drug user Aneurysm Sister head Breast Cancer Paternal Grandmother late 50's or 60's Alcohol/Drug Niece Ovarian cancer Niece diagnosed young Social History Tobacco Use Smoking status: Every Day Packs/day: 2.00 Years: 29.00 Additional pack years: 0.00 Total pack years: 58.00 Types: Cigarettes Smokeless tobacco: Never Vaping Use Vaping Use: Former Substances: Nicotine Substance Use Topics Alcohol use: No Comment: quit , small relapse in 02/15 with of mother. Drug use: No PHYSICAL EXAM BP 138/92 Pulse 90 Resp 20 Wt 88.7 kg (195 lb 9.6 oz) LMP 08/06/2020 SpO2 97% BMI 31.57kg/m General Appearance: well appearing, in no acute distress, alert Pysch: mood and affect broad and appropriate Skin: Skin color, texture, turgor normal for age; Eyes: conjunctiva pink and moist, no icterus, sclera white, non-injected Neck: Thyroid normal size and symmetric without palpable nodules, Neck supple, No adenopathy Oropharynx: posterior tongue with white patches Lymph nodes: No cervical lymphadenopathy and No supraclavicular lymphadenopathy Lungs: Lungs clear to auscultation. No wheezing, rhonchi, rales. Heart: RRR without murmur, gallop, or rubs. No ectopy Health maintenance reviewed with patient: Covid-19 Vaccine(1) Never done Lipid Screening due on 08/24/2019 Mammogram Screening due on 01/03/2023 Influenza Vaccine(1) due on 07/06/2023 Hepatitis B Vaccine(1 of 3 - 3-dose series) due on 10/18/2023 Pneumococcal Vaccine(2 - PCV) due on 10/18/2023 Diabetes Screening due on 03/27/2026 Pap Testing due on 06/26/2027 HPV Testing due on 06/26/2027 Colorectal Cancer Screening due on 09/22/2027 DTaP,Tdap,Td Vaccine(3 - Td or Tdap) due on 11/19/2028 Depression Assessment Completed Hepatitis C Screening Completed HIV Screening Completed DATA REVIEWED: No new labs ASSESSMENT/PLAN: 1. 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HCC) - ICD9: 305.93, ICD10: F19.11 (primary diagnosis) Currently sober - encouraged for finding another sponsor and counseling 2. Alcohol abuse, in remission - ICD9: 305.03, ICD10: F10.11 As above 3. Hypertension, unspecified type - ICD9: 401.9, ICD10: I10 - New diagnosis - starting low dose amlodipine - follow up in 2 weeks - Recommend home blood pressure monitoring, to bring results to next visit - Encouraged sodium restriction, DASH or Mediterranean diet - Recommend regular aerobic exercise - BASIC METABOLIC PNL - CBC 4. Wheezing - ICD9: 786.07, ICD10: R06.2 - lungs clear, no current issue. Now she is sober, unsure how often this occurs. Will need to do PFTs and will discuss at follow up. - XR CHEST 2V FRONTAL/LAT 5. Thrush - ICD9: 112.0, ICD10: B37.0 - was on antibiotics often over the past year for breast abscesses - nystatin as ordered 6. Prediabetes - ICD9: 790.29, ICD10: R73.03 - controlled with diet at this time - healthy well balanced diet low in sweets, regular exercise, and weight loss will continue to improve glucose control - HEMOGLOBIN A1C (POC) 7. Breast abscess - ICD9: 611.0, ICD10: N61.1 - continue with recommendations by surgery 8. Mixed hyperlipidemia - ICD9: 272.2, ICD10: E78.2 - Control undetermined, due for labs - Counseled on healthy diet and regular exercise - Discussed need for and benefit of weight loss. BMI 31.57 kg/(m^2) - LIPID PANEL BASIC Prescription instructions reviewed with patient as applicable. Potential red flag symptoms discussed with the patient. Reviewed appropriate action plan to take if red flag symptoms occur. Patient agreeable to treatment plan. Milly Feliciano APRN.CNP documented in this encounterAv[facility] History of Present illness Narrative* Franco Roblero MD - 08/17/2023 6:57 AM EDT HISTORY AND PHYSICAL Vinod Ann 1975 REFERRING PHYSICIAN: Isatu Nieto MD CHIEF COMPLAINT: Consult (Breast discharg) HPI: The patient is a 48 year old female with a complaint of nonhealing wound and discharge from her left nipple. The patient has a longstanding history of breast abscesses nipple discharge and infections. She has had multiple incision and drainage procedures of the left periareolar area. Most of these were performed at [facility] in [facility]. The patient is also seen Dr. Watson in the past. He advised against additional drainages when he saw the patient. The patient presents to multiple different ERs with these complaints. She states that after the most recent incision and drainage she has a chronic site which generally does not heal just along the medial aspect of her left nipple. She presented to [facility] emergency department ER with these complaints. Ultrasound of the breast was obtained which demonstrated no abscesses and no specific abnormalities. She followed up with Dr. Nieto. She noted some blood and pus draining from the nipple at that time.This was sent for culture returned as actinomyces. The patient was given doxycycline. She denies fever or chills. The patient is somewhat complicated history. She smokes 2 packs cigarettes a day. She snorts and smokes crystal methamphetamine. She had abstained from methamphetamine for the last 2 weeks when I hadinitially evaluated her in February. SHe has had issues with follow up and missing appointment. She notes chronic scabs with occasional drainage from sites on both medial nipple aerolar sites. SHe has not had breast imagine for some time. The patient is being seen by me today at the request of Dr. Isatu Nieto MD for my opinion and advice regarding nipple drainage chronic medical issues. 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 02/15 with of mother Severe episode of recurrent major depressive disorder, without psychotic features ([facility]) Kendra Padilla Suicidal ideation PAST SURGICAL HISTORY Procedure Laterality Date ABDOMINAL SURGERY HX BREAST SURGERY HX BX OF BREAST; INCISIONAL Left 08/29/2019 [place] [facility]- Benign COLONOSCOPY 09/22/2022 COLONOSCOPY FLX DX W/COLLJ SPEC WHEN PFRMD 12/01/2019 Colonoscopy PAST SURGICAL HISTORY OF 03/2010 gall bladder removed PAST SURGICAL HISTORY OF Left wrist surgery when she was 15 years old PAST SURGICAL HISTORY OF 2014 tubal ligation PAST SURGICAL HISTORY OF 02/2022 bilateral cyst removed, [place] Current Outpatient Medications Medication Sig acetaminophen (TYLENOL) 325 mg tablet Take 650 mg by mouth once daily. ergocalciferol 50,000 unit capsule (VITAMIN D2, DRISDOL) Take 1 capsule by mouth one time a week. hydrOXYzine pamoate (VISTARIL) 50 mg capsule melatonin 5 mg tablet Take 5 mg by mouth. (Patient not taking: Reported on 08/16/2023) meloxicam (MOBIC) 7.5 mg tablet Take 1 tablet by mouth once daily. Take with food. multivitamin tablet Take 1 tablet by mouth once daily. (Patient not taking: Reported on 08/16/2023) omeprazole (PRILOSEC) 40 mg capsule Take 1 capsule by mouth once daily. oxybutynin ER (DITROPAN XL) 10 mg 24 hr tablet Take 1 tablet by mouth once daily. paliperidone ER (INVEGA) 3 mg 24 hr tablet Take 1 tablet by mouth once daily. No current facility-administered medications for this visit. ALLERGIES: Cephalexin, Fenofibrate, Zoloft [Sertraline Hcl], and Clindamycin PERSONAL HISTORY: Social History Tobacco Use Smoking status: Every Day Packs/day: 2.00 Years: 29.00 Additional pack years: 0.00 Total pack years: 58.00 Types: Cigarettes Smokeless tobacco: Never Vaping Use Vaping Use: Former Substances: Nicotine Substance Use Topics Alcohol use: No Comment: quit , small relapse in 02/15 with of mother. Drug use: No FAMILY HISTORY: FAMILY HISTORY Problem Relation Age of Onset Lung Cancer Mother at 63 Osteoporosis Mother Alcohol/Drug Mother alcohol Hypertension Father Alcohol/Drug Father alcohol Aneurysm Father abdominal Prostate Cancer Father Alcohol/Drug Sister drugs other (Aids) Sister drug user Aneurysm Sister head Breast Cancer Paternal Grandmother late 50's or 60's Alcohol/Drug Niece Ovarian cancer Niece diagnosed young REVIEW OF SYMPTOMS: The review of systems data was entered by the nurse and reviewed by me There are no exam notes on file for this visit. PHYSICAL EXAMINATION: General: The patient is 48 year old female, well nourished, well hydrated in no acute distress. Thepatient is oriented to time, place, and person. VITALS: Blood pressure 142/78, pulse 101, temperature 36.5 C (97.7 F), height 167.6 cm (5' 6), weight 88.9 kg (196 lb), last menstrual period 08/06/2020, SpO2 97 %. HEENT: Normal cephalic, ataumatic, pupils are equally round, sclera are anicteric, mucous membranesare moist, oropharynx is clear. Neck has no masses, asymmetry or lymphadenopathy. Thyroid is unremarkable. Respiratory: Clear to auscultation and percussion. Normal respiratory excursion and pattern. Cardiac: Examination is regular rate and rhythm. Extremities: no clubbing, cyanosis or edema. No adenopathy. Other: Left breast-no fluctuance or significant erythema. At the 9 o'clock position relative to thenipple areolar complex there is a scarred area with a small scab consistent with her previous multiple incisions. No drainage currently. Right breast - 3 oclock scab, also no fluctuance or drainage. Intraoffice ultrasound demonstrated no obvious abscess along that tract. There did appear to be multiple postsurgical changes/scarring in the area There appears to be a dilated duct under the right scab/drainage site. There is some retraction at the left site with no ultrasound abnormalities. LABORATORY VALUES: As Noted RADIOLOGIC STUDIES: As Noted Assessment IMPRESSION: Chronic left nipple discharge question chronic infection PLAN: I plan to obtain mammogram and bilateral ultrasound. I will have the patient follow up after these studies. Diagnoses: (N61.1) Breast abscess (primary encounter diagnosis) (N64.52) Bloody discharge from left nipple My findings have been communicated to Dr. Isatu Nieto MD via shared medical record. This note will be forwarded to Dr. Isatu Nieto MD. Return to Clinic: The patient is instructed to follow-up with me after endoscopy. Franco Roblero MD documented in this encounterAvita [facility]09-15-2023 Miscellaneous Notes* Telephone Encounter - Samina Quiroga Ma - 07/20/2023 3:47 PM EDT See phone note 07/18/23 * Telephone Encounter - Vivienne Newman Ma - 07/14/2023 10:46 AM EDT Left message for return call. * Telephone Encounter - Milly Feliciano APRN.CNP - 07/13/2023 5:18 PM EDT It showed a type of bacteria she was treated with doxycycline for and then augmentin by surgeon. She was a no show to all follow up appointments with general surgery after this and should be following with her breast surgeon. Thank you Milly Feliciano APRN.CNP * Telephone Encounter - Claudia Kincaid LPN - 07/13/2023 10:29 AM EDT Patient calling asking what was documented in her chart, the results of her breast culture done in February [address] Nieto. Patient asking if [employer] could call her please. Patient said she spoke to someone in Dr Roblero office and was told to call PCP office, aware PCP is out of the office on fellowship at this present time. documented in this encounterAvita Health System [facility]09-08-2023 Miscellaneous Notes* Telephone Encounter - Mohinder Santiago RN - 07/13/2023 10:18 AM EDT Pt called in, verified name & . Pt calling in to report same problems she has been having , wants to know if Dr. Roblero will tell her what this drainage is she still has from her breast. Atpt last appointment with Dr. Roblero on 03/02, he gave the patient a prescription for Augmentin twice a day for 10 days. He asked her to follow-up after that time we to reevaluate the area with ultraso und. If there is a question would consider aspiration. The pt cancelled or No showed numerous appointments with all of our providers in the office. She has failed to follow up since the 03/02 appt. Either cancelling or no showing 8 total appts. I advised the pt to make and keep an appointment with our office to go over recommendation and results since the Augmentin was prescribed. Dr. Roblero was also wanting to follow up with another ultrasound, however pt has not came to any of her scheduled follow up appts. Advised pt she needs to make an appointment with Destiny Anthony or one of our other providers. She then was inquiring about results from a wound culture ordered by Dr. Nieto. I advised pt she could contact their office for those results as well. Pt was agitated and repeatedly asked me if I was listening to her. This Nurse advised pt to make follow up appt with either PCP or a provider in our office to discuss further recommendations, and advised her to keep those follow up appts as further testing may be needed. Pt hung up phone.Mohinder Santiago RN documented in this encounterAvita Health System [facility]08-16-2023 Miscellaneous Notes* Telephone Encounter - Michelle Boyd RN - 06/20/2023 1:12 PM EDT Patient calling to request order for a mammogram and asking it be faxed to [facility] . Found order in Epic and faxed per request. Michelle Boyd RN documented in this encounterAvita Health System [facility]08-16-2023 Miscellaneous Notes* Telephone Encounter - Destiny Mcnulty RN - 06/20/2023 9:36 AM EDT Protocol recommends see provider in 24 hours. Pt scheduled with Dr Collazo today at 440 pm. Care plan reviewed with patient. Patient voices understanding. Advised patient that if symptoms get worseto be evaluated in Urgent Care or ER. Reason for Disposition [1] Can't control passage of urine (i.e., urinary incontinence) AND [2] new- onset (< 2 weeks) orworsening Answer Assessment - Initial Assessment Questions 1. SYMPTOM: The main symptom the Pt is concerned about is urinary incontinence. 2. ONSET: This started about a month ago. Reports she has had a weak bladder for a long time. 3. PAIN: Denies constant pain, states every now and again she will have some mild pain. 4. CAUSE: Pt thinks her weak bladder is causing the symptom. 5. OTHER SYMPTOMS: Pt denies fever. Pt reports she has had flank pain, blood in urine, and pain with urination. 6. : Denies, states she was fixed, did not know what procedure. Protocols used: Urinary [id number] documented in this encounterAvita Health System [facility]08-14-2023 Miscellaneous Notes* Telephone Encounter - Michelle Boyd RN - 06/18/2023 1:59 PM EDT Patient has been identified by name and date of : Yes, Provider Date Time Patient phones for refill(s): Requested Prescriptions Pending Prescriptions Disp Refills oxybutynin ER (DITROPAN XL) 10 mg 24 hr tablet 30 tablet 12 Sig: Take 1 tablet by mouth once daily. ergocalciferol 50,000 unit capsule (VITAMIN D2, DRISDOL) 12 capsule 1 Sig: Take 1 capsule by mouth one time a week. omeprazole (PRILOSEC) 40 mg capsule 30 capsule 11 Sig: Take 1 capsule by mouth once daily. Date of last office visit with pcp: 03/3023 Date of last office visit in primary care: Last 2 Encounter Wt Readings: Date: Wt: 04/03/2023 90.3 kg (199 lb) 03/23/2023 92.5 kg (204 lb) Previous labs/tests for medication: Not applicable Please advise. Thank you. Michelle Boyd RN documented in this encounterAvita Health System [facility]06-21-2023 Miscellaneous Notes* Telephone Encounter - Leslee Oakes LPN - 04/25/2023 10:49 AM EDT [facility] phones requesting refills as follows: Requested Prescriptions Pending Prescriptions Disp Refills meloxicam (MOBIC) 7.5 mg tablet 30 tablet 2 Sig: Take 1 tablet by mouth once daily. Take with food. SARITA: 04/03/23 NOV: None scheduled Last Refill: 02/02/23 #30 2 reflls Leslee Oakes LPN documented in this encounterAvita Health System [facility]06-06-2023 Miscellaneous Notes* Telephone Encounter - Miller Lee RN - 04/10/2023 9:12 AM EDT Senia with [facility] Scheduling calls to report they need a new EMG order as the one they have doesn't specify bilateral carpal tunnel. Re-faxed order from 04/03/2023 that specifies: Dx: Bilateral carpal tunnel syndrome [G56.03 (ICD-10-CM)]. Confirmation that fax was received. Miller Lee RN documented in this encounterAvita Health System [facility]06-02-2023 Miscellaneous Notes* Telephone Encounter - Vivienne Newman Ma - 04/06/2023 1:38 PM EDT Order faxed to [facility]. * Telephone Encounter - Milly Feliciano APRN.CNP - 04/06/2023 12:51 PM EDT Please fax as requested. Milly Feliciano APRN.CNP * Telephone Encounter - Padmini Sexton - 04/05/2023 5:17 PM EDT Pt called to schedule EMG. She would like to know of the possibility to have the order sent to [facility] to complete there and stay closer to home. Would like order sent there. She will schedule with Ortho once she has a date set for her EMG. documented in this encounterAvita Health System Gal[facility] Hospital05-31-2023 Miscellaneous Notes* Telephone Encounter - Smitha Beverly LPN - 04/04/2023 7:15 PM EDT Patient notified of medication. Smitha Beverly LPN * Telephone Encounter - Isatu Nieto MD - 04/04/2023 6:07 PM EDT I will give her some hydroxyzine for itching, let her try it Regards, Isatu Nieto MD * Telephone Encounter - Verona Mulligan RN - 04/04/2023 3:59 PM EDT Triage Protocol Advised: Evaluation within 24 hours if Home Care instructions not effective or if condition worsens. No appts available this evening. Pt states she will go to [facility] if OTC medication does not help. Note to PCP: Patient was seen by Dr. Nieto yesterday and did not inform PCP that she was itching during appt. Pt has not completed uric acid level as ordered yesterday. Pt also states she has not picked up her doxycycline from the pharmacy yet, as advised to take on 03/30/23 for red left breast/periareolar area with nipple discharge that is red and thick yellow. Verona Mulligan RN * Telephone Encounter - Verona Mulligan RN - 04/04/2023 3:45 PM EDT Reason for Disposition [1] Widespread itching AND [2] cause unknown AND [3] present > 48 hours (Exception: caller knowsthe cause and can eliminate it) Answer Assessment - Initial Assessment Questions Patient calling with a complaint of itching all over. Began a couple days ago. Reports I can'tstop itching. -Constant itching on arms, legs, front, back, and head -does not see any insects present -denies coming into contact with any new products -denies SOB or wheezing -speech is clear -no visible rash or raised areas -denies fever, sweats or chills -has not taken any OTC medication for itching 1. DESCRIPTION: as above 2. SEVERITY: moderate 3. SCRATCHING: some scratch britt to her arm. No open or bleeding areas. 4. ONSET:a couple days ago 5. CAUSE: Pt not sure of cause 6. OTHER SYMPTOMS:as above 7. : no Protocols used: Itching - [id number] documented in this encounterAvita Health System [facility]05-31-2023 Miscellaneous Notes* Telephone Encounter - Miller eLe RN - 04/04/2023 8:41 AM EDT Patient returns call and provider message reviewed. Patient transferred to schedule EMG. Miller Lee RN * Telephone Encounter - JUANIS Baptiste - 03/30/2023 3:06 PM EDT TC to patient with no answer. No option to leave VM. Please try again later. Thank you. JUANIS Baptiste * Telephone Encounter - Milly Feliciano APRN.CNP - 03/30/2023 2:50 PM EDT As it has now been going on for 3 weeks, I am ordering and EMG to look for carpal tunnel syndrome. Thank you Milly Feliciano APRN.LUZ ELENA * Telephone Encounter - Debra Woodson LPN - 03/30/2023 2:22 PM EDT Pt returns call gave information provided. Pt states tingling a little worse. 1) LFT HAND IS WORSE - she states tingling in index ,middle finger and thumb and part of palm 2.) Rt Hand -middle finger, index finger and thumb * Telephone Encounter - Vivienne Newman Ma - 03/30/2023 11:10 AM EDT Left message for return call. * Telephone Encounter - Milly Feliciano APRN.CNP - 03/29/2023 4:24 PM EDT Neck xray shows moderate arthritis which may be cause of tingling? How is she feeling? Any improvement or worsening? Where exactly is tingling now if still present? Hgba1c shows prediabetes and we can review at her upcoming appointment. Thank you Milly Feliciano APRN.CNP documented in this encounterAvita Health System [facility] Hospital05-31-2023 Miscellaneous Notes* Telephone Encounter - Miller Lee RN - 04/04/2023 8:40 AM EDT Patient returns call and provider message reviewed. 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 Miller Lee RN * Telephone Encounter - JUANIS Baptiste - 03/30/2023 3:57 PM EDT Please also see TE dated 03/29/2023 and give both messages. TC to patient with no answer, left VM to return call to office. JUANIS Baptiste * Telephone Encounter - Milly Feliciano APRN.CNP - 03/30/2023 3:47 PM EDT She is supposed to follow up with general surgery for this. Can order a dose of doxycyline but she has to keep upcoming appointment with general surgery. Thank you Milly Feliciano APRN.LUZ ELENA * Telephone Encounter - Miller Lee RN - 03/30/2023 3:01 PM EDT Patient calls to notify provider that left breast/periareolar area is becoming red again with nipple discharge that is red and thick yellow. Afebrile. Patient reports she was to call and notify Milly if this happened again. Miller Lee RN documented in this encounterAvita [facility]-30-[facility]23 History of Present illness Narrative* Isatu Nieto MD - 04/03/2023 4:39 PM EDT Consult Reason for Visit Patient presents with: ED Follow-up Vinod Ann is a 48 year old female who presents here today for Above Complaints. Health Maintenance COVID-19 VACCINE(1) LIPID SCREEN MAMMOGRAM HPI Numbness and tingling in the b/l hands for the past for the past month and it is getting worse. Right now the forefinger, the thumb and the middle finger are hurting her. Seems to think the left hand is also swollen. Was concerned that this was related to stroke She has gout in her feet, and her hands. No problem-specific Assessment & Plan notes found for this encounter. 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 02/15 with of mother Severe episode of recurrent major depressive disorder, without psychotic features ([facility]) Kendra Padilla Suicidal ideation PAST SURGICAL HISTORY Procedure Laterality Date ABDOMINAL SURGERY HX BREAST SURGERY HX BX OF BREAST; INCISIONAL Left 08/29/2019 [facility]- Benign COLONOSCOPY 09/22/2022 COLONOSCOPY FLX DX W/COLLJ SPEC WHEN PFRMD 12/01/2019 Colonoscopy PAST SURGICAL HISTORY OF 03/2010 gall bladder removed PAST SURGICAL HISTORY OF Left wrist surgery when she was 15 years old PAST SURGICAL HISTORY OF 2013 tubal ligation PAST SURGICAL HISTORY OF 02/2022 bilateral cyst removed, [place] FAMILY HISTORY Problem Relation Age of Onset Lung Cancer Mother at 63 Osteoporosis Mother Alcohol/Drug Mother alcohol Hypertension Father Alcohol/Drug Father alcohol Aneurysm Father abdominal Prostate Cancer Father Alcohol/Drug Sister drugs other (Aids) Sister drug user Aneurysm Sister head Breast Cancer Paternal Grandmother late 50's or 60's Alcohol/Drug Niece Ovarian cancer Niece diagnosed young Social History Tobacco Use Smoking status: Every Day Packs/day: 2.00 Years: 29.00 Pack years: 58.00 Types: Cigarettes Smokeless tobacco: Never Vaping Use Vaping Use: Former Substances: Nicotine Substance Use Topics Alcohol use: No Comment: quit , small relapse in 02/15 with of mother. Drug use: No Past medical history, appointments, medications, allergies reviewed. Pertinent Lab/Diagnostic Studies are reviewed and discussed today Current Outpatient Medications: doxycycline (VIBRA-TABS) 100 mg tablet ergocalciferol 50,000 unit capsule (VITAMIN D2, DRISDOL) paliperidone ER (INVEGA) 3 mg 24 hr tablet meloxicam (MOBIC) 7.5 mg tablet omeprazole (PRILOSEC) 40 mg capsule melatonin 5 mg tablet oxybutynin ER (DITROPAN XL) 10 mg 24 hr tablet hydrOXYzine pamoate (VISTARIL) 50 mg capsule multivitamin tablet Review of Systems CONSTITUTIONAL: No fevers, chills night sweats, unintended weight loss CARDIOVASCULAR: No chest pain, dyspnea, palpitations, orthopnea, PND, ankle edema. PULM: No dyspnea, unexplained cough. GI: No dysphagia/odynophagia, problematic reflux, constipation, diarrhea, changes in stool habits, hematochezia, melena. : No new urinary complaints, including dysuria, gross hematuria or pyuria. NEURO: No new balance problems, peripheral weakness/paresthesias or numbness of concern. Physical Exam BP 150/60 (BP Site: Left Arm, BP Position: Sitting, BP Cuff Size: Large Adult) Pulse 114 Temp 36.8 C (98.2 F) Resp 12 Ht 165.1 cm (5' 5) Wt 90.3 kg (199 lb) LMP 08/06/2020 SpO2 98% BMI 33.12 kg/m General appearance: Well appearing, alert, in no acute distress, well nourished. Skin: Skin color, texture, turgor normal, no suspicious rashes or lesions Head: Normocephalic, no masses, lesions, tenderness or abnormalities Eyes: Anicteric sclera. Pupils are equally round and reactive to light. Extraocular movements are intact. Lungs: Lungs clear to auscultation. No wheezing, rhonchi, rales Heart: RRR without murmur, gallop, or rubs. Extremities: No deformities, edema, skin discoloration, clubbing or cyanosis. Good capillary refill. ASSESSMENT/PLAN: 1. Bilateral carpal tunnel syndrome - ICD9: 354.0, ICD10: G56.03 (primary diagnosis) - WRIST SPLINT - THUMB SPICA - EMG(NEURO/NI) - CONSULT TO ORTHOPAEDICS 2. Swelling of hand, unspecified laterality - ICD9: 729.81, ICD10: M79.89 - URIC ACID BLOOD - CONSULT TO ORTHOPAEDICS Isatu Nieto MD documented in this encounterAvita [facility]05-28-2023 Miscellaneous Notes* Telephone Encounter - April De Leon RN - 04/01/2023 9:37 PM EDT Pt is c/o increased numbness and swelling to her hands. Pt declined triage stating she just wanted the Dr figueroa. 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 Dr Nieto was paged and advise pt will need to be triaged per the NOC Process. If she is not willingto do that she can seek care at an or ER or follow up with the office on Sunday. Pt was called and informed of the Dr's recommendation. Reason for Call: Bilat hand Numbness/ Swelling Patient Outcome: Pt was given a Go To The ED Now recommendation and will seek care at the [place] ED. Reason for Disposition Patient sounds very sick or weak to the triager Nurses Judgement- Worsening Bilat Hand Weakness, Numbness/Coolness to Hands Answer Assessment - Initial Assessment Questions 1. SYMPTOM: Numbness and swelling of the hands/fingers bilat Left hand middle and index finger, middle finger is worse. Rt hand the middle finger is a little swollen 2. ONSET: 1 month ago. Pt was seen on 03-23 for this 4. PATTERN: It has been constant since it started and is present now. 5. CARDIAC SYMPTOMS: No 6. NEUROLOGIC SYMPTOMS: Dizziness 7. OTHER SYMPTOMS: Pt stated her had is week and feels . Hand/ fingers are cool to the touch. Pt feels her symptoms are getting worse and is concerned. 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 Protocols used: Neurologic [id number] documented in this encounterAvita Health System [facility]04-25-2023 Miscellaneous Notes* Telephone Encounter - Melita Klein LPN - 02/27/2023 9:57 AM EDT Pt calls back to ask how dr has the right to cancel her appt with pcp today. Pt reports dr should see her since she is her pt. Melita Klein LPN * Telephone Encounter - Melita Klein LPN - 02/27/2023 8:26 AM EDT Pt calls in regards to message from TE yesterday 02/26. Pt reports she does not see Dr. Carrillo until 03/05 and needs atb to keep infection from getting worse before seeing Dr. Carrillo. Pt reports she does not remember why she missed her appt with Dr. Carrillo but says she was sick. Pt reports the soonest she could get into Dr. Carrillo after that was 03/05. Pt reports she doesn't understand if she has this problemwhy dr will not call in atb because she will get worse without atb. Melita Klein LPN documented in this encounterJennifer Ville [id number] Miscellaneous Notes* Telephone Encounter - Debra Woodson LPN - 02/23/2023 10:08 AM EDT Pt calls in for message . Gave information provided. She states will re set up appt. * Telephone Encounter - Smitha Beverly LPN - 02/21/2023 10:45 AM EDT left message for patient to call office back and speak with triage nurse. Smitha Beverly LPN * Telephone Encounter - Isatu Nieto MD - 02/21/2023 8:55 AM EDT Please call patient and let her know that she did not show with Dr. Carrillo yesterday. Please let her know that we are highly recommending that she make another appointment to see her and get her breastabscess treated. There may be a very difficult to treat bacteria that is growing in her abscess and this is very important. We did not appreciate her not making her appointment yesterday Isatu Dubois MD * Telephone Encounter - Isatu Nieto MD - 02/19/2023 1:[address] Carrillo, The attached is coming to see you tomorrow morning. She has had breast abscess recurrently. Last year it was on both the sides, apparently she [facility]. The right breast got better but the left has still been continuously putting a lot ofpus. She has blood and pus mixed comes out slowly. I did a culture on her and it comes up that she is growing actinomyces neuii. And if that is a possibility you consider after seeing her, she might need long- term antibiotics. Iwas looking at up-to-date and it seems like penicillin G4 2 to 6 months would be thought. I am reaching out because I have not seen actinomyces in a while I am not sure if you have seen more cases than me and if you think this is consistent with that. Regards, Isatu Nieto MD Dear staff. Please let patient know there have been some abnormalities in her labs and we are looking forward to her seeing Dr. Carrillo tomorrow. When I see her again I will address the labs as they are not very concerning and most of them are actually normal Isatu Dubois MD documented in this encounterAvita Health [facility]04-12-2023 History of Present illness Narrative* Isatu Nieto MD - 02/14/2023 9:12 AM EDT Reason for Visit Patient presents with: ED Follow-up: left breast abcess x 2 weeks Vinod Ann is a 48 year old female who presents here today for Above Complaints.. 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 Currently she is tired of the addictive life, able to see the worth less of it and wants a change. She has been having an abscess since 4 to 5 months. Has been on on abx on and off for 4 months but she has drainage and put coming out of the left breast Last year she had seen Dr Chan who debrided her breasts . Both of them. Right now she is on doxycycline left over from the last treatment. We will culture it today. And send her to surgery. Has major depression, for the past many years, talks to Dr Solares on the phone, the only medication she was on is abilify and hydroxyzine, that did not work for depression, she still could not get out of bed, to shower or do anything, eats something very simple. Notes excessive weight gain. Does not know why she is gaining the weight. She stopped the abilify, the vistaril because she was afraid they were affecting her kidney. We helped her understand that her medication mentioned should not cause the kidneys to be affected. No problem-specific Assessment & Plan notes found for this encounter. 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 02/15 with of mother Severe episode of recurrent major depressive disorder, without psychotic features (HCC) Kendra Padilla Suicidal ideation PAST SURGICAL HISTORY Procedure Laterality Date ABDOMINAL SURGERY HX BREAST SURGERY HX BX OF BREAST; INCISIONAL Left 08/29/2019 [facility]- Benign COLONOSCOPY 09/22/2022 COLONOSCOPY FLX DX W/COLLJ SPEC WHEN PFRMD 12/01/2019 Colonoscopy PAST SURGICAL HISTORY OF 03/2010 gall bladder removed PAST SURGICAL HISTORY OF Left wrist surgery when she was 15 years old PAST SURGICAL HISTORY OF 2014 tubal ligation PAST SURGICAL HISTORY OF 02/2022 bilateral cyst removed, [place] FAMILY HISTORY Problem Relation Age of Onset Lung Cancer Mother at 63 Osteoporosis Mother Alcohol/Drug Mother alcohol Hypertension Father Alcohol/Drug Father alcohol Aneurysm Father abdominal Prostate Cancer Father Alcohol/Drug Sister drugs other (Aids) Sister drug user Aneurysm Sister head Breast Cancer Paternal Grandmother late 50's or 60's Alcohol/Drug Niece Ovarian cancer Niece diagnosed young Social History Tobacco Use Smoking status: Every Day Packs/day: 2.00 Years: 29.00 Pack years: 58.00 Types: Cigarettes Smokeless tobacco: Never Vaping Use Vaping Use: Former Substances: Nicotine Substance Use Topics Alcohol use: No Comment: quit , small relapse in 02/15 with of mother. Drug use: No Past medical history, appointments, medications, allergies reviewed. Pertinent Lab/Diagnostic Studies are reviewed and discussed today Current Outpatient Medications: meloxicam (MOBIC) 7.5 mg tablet omeprazole (PRILOSEC) 40 mg capsule melatonin 5 mg tablet oxybutynin ER (DITROPAN XL) 10 mg 24 hr tablet ergocalciferol 50,000 unit capsule (VITAMIN D2, DRISDOL) hydrOXYzine pamoate (VISTARIL) 50 mg capsule multivitamin tablet ARIPiprazole (ABILIFY) 20 mg tablet Review of Systems CONSTITUTIONAL: No fevers, chills night sweats, unintended weight loss CARDIOVASCULAR: No chest pain, dyspnea, palpitations, orthopnea, PND, ankle edema. PULM: No dyspnea, unexplained cough. GI: No dysphagia/odynophagia, problematic reflux, constipation, diarrhea, changes in stool habits, hematochezia, melena. : No new urinary complaints, including dysuria, gross hematuria or pyuria. NEURO: No new balance problems, peripheral weakness/paresthesias or numbness of concern. Physical Exam BP 126/70 (BP Site: Left Arm, BP Position: Sitting, BP Cuff Size: Large Adult) Pulse 103 Temp 36.3 C (97.3 F) Resp 12 Ht 167.6 cm (5' 6) Wt 96.6 kg (213 lb) LMP 08/06/2020 SpO2 98% BMI 34.38 kg/m General appearance: Well appearing, alert, in no acute distress, well nourished. Skin: Skin color, texture, turgor normal, no suspicious rashes or lesions Head: Normocephalic, no masses, lesions, tenderness or abnormalities Eyes: Anicteric sclera. Pupils are equally round and reactive to light. Extraocular movements are intact. Breast exam: patient has redness of the left nipple a the 3 o clock position. It is squrting some blood and pus. Lungs: Lungs clear to auscultation. No wheezing, rhonchi, rales Heart: RRR without murmur, gallop, or rubs. Extremities: No deformities, edema, skin discoloration, clubbing or cyanosis. Good capillary refill. ASSESSMENT/PLAN: 1. Moderate episode of recurrent major depressive disorder (HCC) - ICD9: 296.32, ICD10: F33.1 (primary diagnosis) - CONSULT TO PSYCHIATRY She will bring up to Beck Lazar in the upcoming apt, infectiveness of current regimen, I asked the lead case manager to be at that apt so that she help patient to express her issue. 2. Breast discharge - ICD9: 611.79, ICD10: N64.52 - CONSULT TO GENERAL SURGERY - ABSCESS AND WOUND CULTURE WITH GRAM STAIN - COMP METABOLIC PANEL - CBC + DIFF 3. Breast abscess - ICD9: 611.0, ICD10: N61.1 - CONSULT TO GENERAL SURGERY - ABSCESS AND WOUND CULTURE WITH GRAM STAIN 4. Substance abuse (HCC) - ICD9: 305.90, ICD10: F19.10 She has been clean for a couple weeks and would like to cont that 5. Excessive weight gain - ICD9: 783.1, ICD10: R63.5 - TSH BLD Isatu Nieto MD documented in this encounterAvita Health [facility]04-12-2023 Nurse Note* Smitha Beverly LPN - 02/14/2023 8:57 AM EDT Nandini fitness coach documented in this encounterAvita Health System [facility]04-05-2023 Miscellaneous Notes* Telephone Encounter - Milly Feliciano APRN.CNP - 02/07/2023 1:53 PM EDT Noted. Agree with reported symptoms ER is where she needs evaluated. Milly Feliciano APRN.CNP * Telephone Encounter - Amanda Lezama RN - 02/06/2023 1:17 PM EDT Patient reports she is not feeling well and pretty sure she has cellulitis in her whole body. Reports her whole body is red, and she is having fevers with chills. States it's either cellulitis or staph infection. Reports her stools are a foul odor. Reports she has open wounds on her breasts that are draining green pus. Reports lymph nodes are swollen in her arm pits and groin area. Having cramping in her whole body. Reports this has been going on for 3 days. Reports she was seen in [facility] ER yesterday but left AMA b/c they were not doing anything to help her. Advised patient, with fevers/chills and suspicions for cellulitis or staph, and all her symptoms, she needs to return to ER. Advised patient to try to be patient with staff as they are trying to save lives and waiting on test results inorder to help her. Patient agreeable to return to ER. Agreeable to call pcp office for f/u once shereceives treatment. Patient stated she is a meth user, but quit 1.5 days ago and will never touch it again. documented in this encounterAvita Health [facility]03-31-2023 Miscellaneous Notes* Telephone Encounter - Smitha Beverly LPN - 02/02/2023 2:37 PM EDT Patient has been identified by name and date of : No Patient phones for refill(s): Requested Prescriptions Pending Prescriptions Disp Refills meloxicam (MOBIC) 7.5 mg tablet 30 tablet 2 Sig: Take 1 tablet by mouth once daily. Take with food. Date of last office visit in primary care: 10/18/22 Last 2 Encounter Wt Readings: Date: Wt: 12/27/2022 91.3 kg (201 lb 3.2 oz) 10/18/2022 88.9 kg (196 lb) Previous labs/tests for medication: Not applicable Please advise. Thank you. Smitha Beverly LPN * Telephone Encounter - Luisa Soriano - 02/02/2023 2:35 PM EDT Patient has been identified by name and date of : Yes, Provider [facility] Pharmacy phones for refill(s): Requested Prescriptions Pending Prescriptions Disp Refills meloxicam (MOBIC) 7.5 mg tablet 30 tablet 2 Sig: Take 1 tablet by mouth once daily. Take with food. Date of last office visit in primary care: 10/18/22 Last 2 Encounter Wt Readings: Date: Wt: 12/27/2022 91.3 kg (201 lb 3.2 oz) 10/18/2022 88.9 kg (196 lb) Previous labs/tests for medication: Not applicable Please advise. Thank you. Luisa Soriano documented in this encounterAvita Health System [facility]02-24-2023 Miscellaneous Notes* Telephone Encounter - Sheryl Pruitt LPN - 12/29/2022 11:59 AM EST Patient notified * Telephone Encounter - Lamar Bauer LPN - 12/28/2022 3:18 PM EST Attempted to contact pt, line is busy. Will try to contact later. Lamar Bauer LPN * Telephone Encounter - Lamar Bauer LPN - 12/28/2022 3:17 PM EST ----- Message from Brando Lopez APRN.CNM sent at 12/28/2022 3:03 PM EST ----- Please notify of negative serum results. Brando Lopez APRN.CNM documented in this encounterAvita Health System Gal[facility]02-22-2023 History of Present illness Narrative* Brando Lopez APRN.CNM - 12/27/2022 10:44 AM EST Liaison Officer offered: Patient declines. Lpn Cma Visit 12/27/2022 11:12 AM CC: STD screening HPI: Vinod Ann is a 47 year old woman here for STD screening. Any known exposure? Unsure- partner currently has bumps and was told a yeast infection Vaginal discharge? No. Contraception: none ROS: Denies fevers, pelvic pain, abnormal vaginal bleeding. O: BP 104/76 Wt 201 lb 3.2 oz (91.3 kg) LMP 08/06/2020 BMI 32.47 kg/m Gen: NAD SSE: normal cervix and vagina with physiological discharge present. Bimanual exam- normal, no cervical motion tenderness A/P: 47 year old woman requesting STD screening. Increased risk for STDs - GC/Chlamydia, HIV, Hepatitis B &C, and Syphilis - BACT/Yeast-RX for Diflucan 150 mg PO x 1 dose sent - will notify patient of abnormal results. - discussed condom use for STD prevention. 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 Brando Lopez APRN.CNM documented in this encounterAvita Health System [facility]12-28-2022 Miscellaneous Notes* Telephone Encounter - Michelle Boyd RN - 11/01/2022 7:33 PM EST Spoke with patient. Given message from provider's office. Patient verbalizes understanding. Michelle Boyd RN * Telephone Encounter - Vivienne Newman Ma - 11/01/2022 7:26 PM EST Left message for return call. * Telephone Encounter - Milly Feliciano APRN.CNP - 11/01/2022 6:58 PM EST Ordering both augmentin and doxycycline. Thank you Milly Feliciano APRN.CNP * Telephone Encounter - Vivienne Newman Ma - 11/01/2022 2:43 PM EST Patient states abscess is not any worse, some improvement with bactrim just feels she needs a stronger AIB. * Telephone Encounter - Milly Feliciano APRN.CNP - 11/01/2022 2:33 PM EST Is the abscess worse? Any other symptoms? If so she needs re-evaluated. Thank you Milly Feliciano APRN.CNP * Telephone Encounter - Claudia Kincaid LPN - 11/01/2022 2:15 PM EST Patient calling to check status of note. Patient asking if [employer] going to change the antibiotic rx? Patient said the Bactrim is not clearing the infection. Patient uses [facility] for her pharmacy. Please advise * Telephone Encounter - Destiny Mcnulty RN - 11/01/2022 11:21 AM EST Pt called and is notified of providers message and instructions. Pt reports the Bactrim isn't working, and she is going to keep her appointment with the surgeon. Destiny Mcnulty RN * Telephone Encounter - Milly Feliciano APRN.CNP - 11/01/2022 10:22 AM EST Please let patient know that I have ordered another weeks worth of antibiotic, but she needs to keep upcoming appointment with surgeon for further evaluation. Thank you Milly Feliciano APRN.CNP * Telephone Encounter - Padmini Sexton - 11/01/2022 8:13 AM EST Pt would like to know if she could have another round of antibiotic. She states she is still has the abscess on her breast. Going to see breast specialist in the next week. documented in this encounterAvita Health System [facility]12-27-2022 Miscellaneous Notes* Telephone Encounter - Miller Lee RN - 10/31/2022 4:18 PM EST Patient has been identified by name and date of : Yes, Provider Miller Lee RN Date 10/31/2022 Time 4:19 pm Pharmacy phones for refill(s): Requested Prescriptions Pending Prescriptions Disp Refills meloxicam (MOBIC) 7.5 mg tablet 30 tablet 2 Sig: Take 1 tablet by mouth once daily. Take with food. Date of last office visit with pcp: 10/18/2022 Future appt: 01/24/2023 Last 2 Encounter Wt Readings: Date: Wt: 10/18/2022 88.9 kg (196 lb) 09/25/2022 90.4 kg (199 lb 3.2 oz) Previous labs/tests for medication: Blood Pressure: BUN (mg/dL) Date Value 12/26/2021 8 Sodium (mmol/L) Date Value 12/26/2021 138 Last 1 Encounter BP Readings: Date: BP: 10/18/2022 130/82 Liver Function: ALT (U/L) Date Value 12/26/2021 19 AST (U/L) Date Value 12/26/2021 18 Please advise. Thank you. Miller Lee RN documented in this encounterAvita Health System [facility]12-14-2022 Instructions* Patient Instructions* Milly Feliciano APRN.CNP - 10/18/2022 4:41 PM EST Schedule with Dr. Chan for your breast abcess documented in this encounterAvita Health System [facility]12-14-2022 History of Present illness Narrative* Milly Feliciano APRN.CNP - 10/18/2022 4:26 PM EST CC: Patient presents with: Recheck: 6 month follow up HPI Vinod Ann is a 47 year old female who presents today for routine 6 month follow up. Breast abcess returning has not seen breast surgeon in a while. Was put on doxycycline by urgent care and completed treatment without improvement. Draining a clear liquid and still red. Deneis fever chills shortness of breath, or body aches. GERD: Controlled with omeprazole. Denies heartburn, abdominal pain, difficulty swallowing or nausea. Manic Depression per patient: feels this is controlled with current treatment as prescribed by Dr. He Alcohol use: does not drink any alcohol Drug use: No Has been clean of meth and alcohol for almost a year. Appetite: good Stresses: Major stressor: friend an room mate concerns Suicidal Thoughts: No suicidal ideation, intent or plan Support: Comes from multiple sources including family and credit control officer. Counseling: Yes, and sees Dr. He REVIEW OF SYSTEMS General: no fevers, no chills, no night sweats, no recurrent infections, no change in appetite, no change in energy, and no significant changes in weight Respiratory: no cough, no wheezing, no shortness of breath, no hemoptysis Cardiovascular: no chest pain, no chest pressure, no palpitations, and no swelling Neurologic: No headache, weakness, dizziness, syncope. 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 02/15 with of mother Severe episode of recurrent major depressive disorder, without psychotic features (HCC) Kendra Padilla Suicidal ideation PAST SURGICAL HISTORY Procedure Laterality Date ABDOMINAL SURGERY HX BREAST SURGERY HX BX OF BREAST; INCISIONAL [facility] 09/22/2022 COLONOSCOPY FLX DX W/COLLJ SPEC WHEN PFRMD 12/01/2019 Colonoscopy PAST SURGICAL HISTORY OF 03/2010 gall bladder removed PAST SURGICAL HISTORY OF Left wrist surgery when she was 15 years old PAST SURGICAL HISTORY OF 2014 tubal ligation PAST SURGICAL HISTORY OF 02/2022 bilateral cyst removed, [place] ALLERGIES Cephalexin, Fenofibrate, Zoloft [Sertraline Hcl], and Clindamycin MEDICATIONS omeprazole (PRILOSEC) 40 mg capsule Take 1 capsule by mouth once daily. melatonin 5 mg tablet Take 5 mg by mouth. meloxicam (MOBIC) 7.5 mg tablet Take 1 tablet by mouth once daily. Take with food. oxybutynin ER (DITROPAN XL) 10 mg 24 hr tablet Take 1 tablet by mouth once daily. ergocalciferol 50,000 unit capsule (VITAMIN D2, DRISDOL) Take 1 capsule by mouth two times a week. TO BE TAKEN ORALLY DIRECTED. Take 1 tablet by mouth twice weekly [id number], then decrease to 1 tablet weekly. hydrOXYzine pamoate (VISTARIL) 50 mg capsule multivitamin tablet Take 1 tablet by mouth once daily. ARIPiprazole (ABILIFY) 20 mg tablet Take 1 tablet by mouth once daily. sulfamethoxazole-trimethoprim (BACTRIM DS) 800-160 mg per tablet Take 1 tablet by mouth twice dailyfor 10 days. FAMILY HISTORY Problem Relation Age of Onset Lung Cancer Mother at 63 Osteoporosis Mother Alcohol/Drug Mother alcohol Hypertension Father Alcohol/Drug Father alcohol Aneurysm Father abdominal Prostate Cancer Father Alcohol/Drug Sister drugs other (Aids) Sister drug user Aneurysm Sister head Breast Cancer Paternal Grandmother late 50's or 60's Alcohol/Drug Niece Ovarian cancer Niece diagnosed young Social History Tobacco Use Smoking status: Every Day Packs/day: 2.00 Years: 29.00 Pack years: 58.00 Types: Cigarettes Smokeless tobacco: Never Vaping Use Vaping Use: Former Substances: Nicotine Substance Use Topics Alcohol use: No Comment: quit , small relapse in 02/15 with of mother. Drug use: No PHYSICAL EXAM BP 130/82 Pulse 84 Resp 16 Wt 88.9 kg (196 lb) LMP 08/06/2020 BMI 31.64 kg/m General Appearance: well appearing, in no acute distress, alert Skin: Skin color, texture, turgor normal for age; Eyes: conjunctiva pink and moist, no icterus, sclera white, non-injected Neck: Thyroid normal size and symmetric without palpable nodules, No adenopathy Lymph nodes: No cervical lymphadenopathy and No supraclavicular lymphadenopathy Lungs: Lungs clear to auscultation. No wheezing, rhonchi, rales. Heart: RRR without murmur, gallop, or rubs. No ectopy Breast: breasts symmetric, no dominant or suspicious mass, left breast with redness to inner breastoutside of areola. 2 scabbed areas without drainage. Does have increased warmth and reported tenderness. Health maintenance reviewed with patient: HEPATITIS B(1 of 3 - 3-dose series) Never done LIPID SCREEN due on 08/24/2019 DEPRESSION ASSESSMENT Never done MAMMOGRAM due on 01/03/2023 COVID-19 VACCINE(1) due on 12/26/2022 INFLUENZA(1) due on 05/04/2023 PNEUMOCOCCAL(1 - PCV) due on 10/18/2023 DIABETES SCREEN due on 12/26/2024 PAP TESTING due on 06/26/2027 HPV TESTING due on 06/26/2027 COLORECTAL CANCER SCREENING due on 09/22/2027 DTAP,TDAP,TD(3 - Td or Tdap) due on 11/19/2028 HEPATITIS C SCREENING Completed HIV SCREENING Completed DATA REVIEWED: No new labs ASSESSMENT/PLAN: 1. Breast abscess - ICD9: 611.0, ICD10: N61.1 (primary diagnosis) - needs to reschedule with her surgeon that has bene treating this - bactrim as ordered. 2. 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HCC) - ICD9: 305.93, ICD10: F19.11 - continue to refrain for drug usage and continue current medications as prescribed by Dr. He. - Reviewed concept of neurochemical imbalance [facility] depression/anxiety, treatment options and benefits of counseling in combination with medication. Also reviewed benefits of sleep hygeine, diet and exercise - Instructed patient to contact office or [id number] after-hours promptly should condition worsen or any new symptoms appear. - Counseling Center [facility] and after hours crisis line 3. Gastroesophageal reflux disease without esophagitis - ICD9: 530.81, ICD10: K21.9 - controlled with current treatment - Discussed lifestyle modifications including losing weight, limiting caffeine, no meals three hours before sleep, and head of bed elevation 4. Mood disorder (HCC) - ICD9: 296.90, ICD10: F39 See #2 5. Annual physical exam - ICD9: V70.0, ICD10: Z00.00 - needs to schedule this, lab ordered to be done prior to annual visit - VITAMIN D 25 HYDROXY - LIPID PANEL BASIC - CBC + DIFF - COMP METABOLIC PANEL 6. Vitamin D deficiency - ICD9: 268.9, ICD10: E55.9 - VITAMIN D 25 HYDROXY Prescription instructions reviewed with patient as applicable. Potential red flag symptoms discussed with the patient. Reviewed appropriate action plan to take if red flag symptoms occur. Patient agreeable to treatment plan. Milly Feliciano APRN.CNP [facility] Miscellaneous Notes* Telephone Encounter - Kimberly Campos LPN - 10/16/2022 11:38 AM EST Patient notified of results and verbalizes understanding. Kimberly Campos LPN * Telephone Encounter - Jensen Jackman LPN - 10/16/2022 11:01 AM EST Called and left patient a message to call office for results from colonoscopy. Updated HM, history and recall letter done. * Telephone Encounter - Detsiny Anthony PA-C - 10/14/2022 11:56 AM EST Please let patient know pathology demonstrated a tubular adenoma-benign, but a premalignant type ofpolyp. Recommend repeat colonoscopy in 5 years for surveillance. Please update HM and surgical history and generate a recall letter for 5 year repeat. Would also recommend fiber supplement and increased fluid intake based on findings of diverticulosis and hemorrhoids. If rectal bleeding recurs, consider hemorrhoidal banding procedure in office with Dr. Carrillo * Telephone Encounter - Leonidas Nunez LPN - 10/06/2022 4:24 PM EST Patient did not come in for follow up appointment. Please review patient's pathology and recommendation for follow up. Leonidas Nunez LPN documented in this encounterAv[facility]11-21-2022 History of Present illness Narrative* Jackie Deal APRN.HAND SCRAPER - 09/25/2022 4:13 PM EST Images from the original note were not included. Subjective Sore Throat Associated symptoms include congestion and coughing. Pertinent negatives include no ear pain or shortness of breath. Vinod Ann is a 47 year old female who presents with a cyst on her left breast present for years, had surgery on it in February. The cyst is tender at times. She has been using antibiotic cream on it but it has been filling up and draining some yellow fluid. She has not had a f ever. She also complains of cough, sore throat, coughing up mucous, stuffy nose. States she can taste infection in the phlegm she coughs up. She has not taken any medication for this at home. Review of Systems Constitutional: Negative for chills and fever. HENT: Positive for congestion and sore throat. Negative for ear pain. Respiratory: Positive for cough, sputum production and wheezing (patient reports wheezing at night.). Negative for shortness of breath. Cardiovascular: Negative. Musculoskeletal: Negative for myalgias. 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 02/15 with of mother Severe episode of recurrent major depressive disorder, without psychotic features (HCC) Kendra Padilla Suicidal ideation PAST SURGICAL HISTORY Procedure Laterality Date ABDOMINAL SURGERY HX BREAST SURGERY HX BX OF BREAST; INCISIONAL Left 08/29/2019 [facility]- Benign COLONOSCOPY FLX DX W/COLLJ SPEC WHEN PFRMD 12/01/2019 Colonoscopy PAST SURGICAL HISTORY OF 03/2010 gall bladder removed PAST SURGICAL HISTORY OF Left wrist surgery when she was 15 years old PAST SURGICAL HISTORY OF 2013 tubal ligation PAST SURGICAL HISTORY OF 02/2022 bilateral cyst removed, [place] ALLERGIES Cephalexin, Fenofibrate, Zoloft [Sertraline Hcl], and Clindamycin MEDICATIONS omeprazole (PRILOSEC) 40 mg capsule Take 1 capsule by mouth once daily. melatonin 5 mg tablet Take 5 mg by mouth. meloxicam (MOBIC) 7.5 mg tablet Take 1 tablet by mouth once daily. Take with food. oxybutynin ER (DITROPAN XL) 10 mg 24 hr tablet Take 1 tablet by mouth once daily. ergocalciferol 50,000 unit capsule (VITAMIN D2, DRISDOL) Take 1 capsule by mouth two times a week. TO BE TAKEN ORALLY DIRECTED. Take 1 tablet by mouth twice weekly [id number], then decrease to 1 tablet weekly. QUEtiapine (SEROQUEL) 50 mg tablet as needed (sleep). hydrOXYzine pamoate (VISTARIL) 50 mg capsule multivitamin tablet Take 1 tablet by mouth once daily. ARIPiprazole (ABILIFY) 20 mg tablet Take 1 tablet by mouth once daily. doxycycline hyclate (VIBRAMYCIN) 100 mg capsule Take 1 capsule by mouth twice daily for 10 days. albuterol HFA (PROVENTIL HFA, VENTOLIN HFA) 90 mcg/actuation inhaler Inhale 2 Puffs as instructed every 6 hours as needed for wheezing/shortness of breath. Inhalational Spacing Device 1 Device one time only for 1 dose. predniSONE (DELTASONE) 20 mg tablet Take 2 tablets by mouth once daily for 5 days. Take daily with food. benzonatate (TESSALON PERLE) 100 mg capsule Take 2 capsules by mouth three times daily as needed for up to 10 days. peg 3350-Electrolytes (GOLYTELY) 236-22.74-6.74 -5.86 gram suspension Refer to printed prep instructions from your provider. (Patient not taking: Reported on 09/25/2022) miconazole (MONISTAT) 2 % vaginal cream Use 1 Applicator vaginally daily at bedtime. (Patient not taking: Reported on 09/25/2022) FAMILY HISTORY Problem Relation Age of Onset Lung Cancer Mother at 63 Osteoporosis Mother Alcohol/Drug Mother alcohol Hypertension Father Alcohol/Drug Father alcohol Aneurysm Father abdominal Prostate Cancer Father Alcohol/Drug Sister drugs other (Aids) Sister drug user Aneurysm Sister head Breast Cancer Paternal Grandmother late 50's or 60's Alcohol/Drug Niece Ovarian cancer Niece diagnosed young Social History Tobacco Use Smoking status: Every Day Packs/day: 2.00 Years: 29.00 Pack years: 58.00 Types: Cigarettes Smokeless tobacco: Never Vaping Use Vaping Use: Former Substances: Nicotine Substance Use Topics Alcohol use: No Comment: quit , small relapse in 02/15 with of mother. Drug use: No Objective Physical Exam Vitals and nursing note reviewed. Constitutional: Appearance: Normal appearance. HENT: Mouth/Throat: Mouth: Mucous membranes are moist. Pharynx: Oropharynx is clear. No oropharyngeal exudate or posterior oropharyngeal erythema. Cardiovascular: Rate and Rhythm: Normal rate and regular rhythm. Heart sounds: Normal heart sounds. Pulmonary: Effort: Pulmonary effort is normal. No respiratory distress. Breath sounds: Normal breath sounds. No wheezing or rales. Chest: Skin: General: Skin is warm and dry. Findings: No erythema or rash. Neurological: Mental Status: She is alert. ASSESSMENT/PLAN: 1. Breast cyst, left - ICD9: 610.0, ICD10: N60.02 (primary diagnosis) - DOXYCYCLINE HYCLATE 100 MG CAPSULE 2. Viral bronchitis - ICD9: 466.0, ICD10: J20.8 - ALBUTEROL SULFATE HFA 90 MCG/ACTUATION AEROSOL INHALER - INHALATIONAL SPACING DEVICE - PREDNISONE 20 MG TABLET - BENZONATATE 100 MG CAPSULE - Follow-up with your PCP in 3-5 days if symptoms have not improved or sooner if symptoms worsen - Discussed red flags and need for immediate medical evaluation if any occur. - Discussed supportive care treatment with fluids, rest and analgesia. - Discussed expected course of illness Jackie Deal APRN.HAND SCRAPER documented in this encounterAvita [facility]11-21-2022 Instructions* Patient Instructions* Jackie Deal APRN.CNP - 09/25/2022 4:12 PM EST ASSESSMENT/PLAN: 1. Breast cyst, left - ICD9: 610.0, ICD10: N60.02 (primary diagnosis) - DOXYCYCLINE HYCLATE 100 MG CAPSULE 2. Viral bronchitis - ICD9: 466.0, ICD10: J20.8 - ALBUTEROL SULFATE HFA 90 MCG/ACTUATION AEROSOL INHALER - INHALATIONAL SPACING DEVICE - PREDNISONE 20 MG TABLET - BENZONATATE 100 MG CAPSULE - Follow-up with your PCP in 3-5 days if symptoms have not improved or sooner if symptoms worsen - Discussed red flags and need for immediate medical evaluation if any occur. - Discussed supportive care treatment with fluids, rest and analgesia. - Discussed expected course of illness Jackie Deal APRN.CNP documented in this encounterAvita [facility]11-18-2022 Nurse Note* Jocelin Sharpe RN - 09/22/2022 2:00 PM EST Arrived in phase II via cart left lateral position, eyes open to verbal stimuli, skin warm and dry,respirations regular and unlabored. Denies pain, cramping or nausea. Abdomen soft and non distended. Resting comfortably on left side. documented in this encounterAvita [facility]11-18-2022 History and physical note * Debra Carrillo MD - 09/22/2022 12:45 PM EST UPDATED PROCEDURAL SEDATION HISTORY AND PHYSICAL EXAMINATION SERVICE DATE: 09/22/2022 SERVICE TIME: 13:31 PHYSICAL EXAM MUST BE COMPLETED ON ADMISSION PROCEDURE: colonoscopy, possible biposies Procedure Indications: rectal bleeding The History and Physical (completed in the past 30 days) has been reviewed and the patient has beenexamined. The contents accurately reflect the patient's condition with the following additions or revisions since the H&P was completed. ASA Class: ASA Class:: Patient with mild systemic disease Examination indicates no changes. AIRWAY: Airway Visualization of Uvula: Yes Mouth opening greater than 2 fingerbreadths: Yes Neck Full Range of Motion: Yes LUNGS: Lungs clear to auscultation CARDIAC: Regular rhythm,Regular rate Provisional Diagnosis/Treatment Plan: colonoscopy, possible biopsies SEDATION GOAL: Moderate This H&P can be found in the Electronic Medical Record. SIGNATURE: Debra Carrillo MD PATIENT NAME: Vinod Ann DATE: September 22, 2022 TIME: 1:31 PM Source Note - Debra Carrillo MD - 09/22/2022 12:45 PM EST HISTORY AND PHYSICAL Vinod Paris Ann 1975 REFERRING PHYSICIAN: Isatu Nieto MD CHIEF COMPLAINT: Consult (loose stools, diarrhea ) HPI: The patient is a 47 year old female presents with complaint of rectal bleeding. The patient denies blood in stools, denies abdominal pain, and denies changes in bowel habits. The patient notes no colon cancer in immediate family. The patient has had previous colonoscopy at [facility] with MAC anesthesia 12/01/2019. No polyps found and random colon biopsies for diarrhea were negative for colitis. 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 , did have small relapse 02/15 with of mother Severe episode of recurrent major depressive disorder, without psychotic features (HCC) Kendra Padilla Suicidal ideation PAST SURGICAL HISTORY Procedure Laterality Date BX OF BREAST; [facility] COLONOSCOPY FLX DX W/COLLJ SPEC WHEN PFRMD 12/01/2019 Colonoscopy PAST SURGICAL HISTORY OF 03/2010 gall bladder removed PAST SURGICAL HISTORY OF Left wrist surgery when she was 15 years old PAST SURGICAL HISTORY OF 2014 tubal ligation PAST SURGICAL HISTORY OF 02/2022 bilateral cyst removed, [place] Current Outpatient Medications Medication Sig hydrOXYzine pamoate (VISTARIL) 50 mg capsule Take 50 mg by mouth twice daily. meloxicam (MOBIC) 7.5 mg tablet Take 1 tablet by mouth once daily. Take with food. multivitamin tablet Take 1 tablet by mouth once daily. oxybutynin XL (DITROPAN XL) 5 mg 24 hr tablet Take 5 mg by mouth once daily. omeprazole (PRILOSEC) 40 mg capsule Take 1 capsule by mouth once daily. ARIPiprazole (ABILIFY) 20 mg tablet Take 1 tablet by mouth once daily. peg 3350-Electrolytes (GOLYTELY) 236-22.74-6.74 -5.86 gram suspension Refer to printed prep instructions from your provider. ALLERGIES: Cephalexin, Fenofibrate, Zoloft [Sertraline Hcl], and Clindamycin PERSONAL HISTORY: Social History Tobacco Use Smoking status: Current Every Day Smoker Packs/day: 2.00 Years: 29.00 Pack years: 58.00 Types: Cigarettes Smokeless tobacco: Never Used Vaping Use Vaping Use: Some days Substances: Nicotine Substance Use Topics Alcohol use: No Comment: quit , small relapse in 02/15 with of mother. Drug use: No FAMILY HISTORY Problem Relation Age of Onset Lung Cancer Mother at 63 Osteoporosis Mother Alcohol/Drug Mother alcohol Hypertension Father Alcohol/Drug Father alcohol Aneurysm Father abdominal Prostate Cancer Father Alcohol/Drug Sister drugs other (Aids) Sister drug user Aneurysm Sister head Breast Cancer Paternal Grandmother late 50's or 60's Alcohol/Drug Niece Ovarian cancer Niece diagnosed young The review of systems data was entered by the nurse and reviewed by sc Nursing Notes: Jensen Jackman LPN 03/13/2022 10:42 AM Signed REVIEW OF SYSTEMS: General: The patient notes fatigue, denies weight loss, notes weight gain, denies feeling hot, and denies feelings of cold. Eyes: The patient denies glaucoma, denies eye injury/surgery, wears glasses or contacts. Ear/Nose/Throat: The patient denies allergies, denies hayfever, denies ear infections, and denies bloody noses. Cardiovascular: The patient denies chest pain, denies heart disease, denies high blood pressure,denies cardiac stent, denies prior heart attack, denies irregular heart beat, denies high cholesterol, denies poor circulation, denies heart failure, other cardiac issues, notes claudication, denies coldfeet, denies peripheral arterial stent. Respiratory: The patient denies tuberculosis, denies pneumonia, denies frequent cough, denies pulmonary embolism, denies shortness of breath, and denies coughing up blood. Gastrointestinal: The patient denies difficulty swallowing, notes acid reflux, notes ulcers, deniesvomiting, denies jaundice/hepatitis, notes gallbladder problems, denies black or tarry stools, notes hemorrhoids, notes bleeding from rectum, denies diverticulitis, denies constipation, notes diarrhea, notes loss of stool control, and denies hernias. Kidney/Bladder: The patient denies kidney stones, denies urine infections, and denies bloody urine. Skin: The patient denies a history of skin cancer, denies bleeding/changing moles, and denies a history of skin rash. Neurologic: The patient denies a history of epilepsy/convulsions, denies headaches, denies head/spinal injuries, and denies stroke/TIA. Psychiatric: The patient notes psychiatric medications, notes depression, and denies voices, notes substance abuse. Endocrine: The patient denies thyroid disorders, denies diabetes, and denies hormonal problems. Hematologic: The patient denies a history of bruising, denies bleeding, and denies anemia, denies blood clots. Infections: The patient denies a history of measles and mumps, denies rheumatic fever, and denies sexually transmitted diseases. Musculoskeletal: The patient notes back pain/injury, notes back problems, denies sciatica, denies knee/foot trouble, notes arthritis, or denies gout. When was patient's last Mammogram screening? 2021 Last Colonoscopy: 2020 Jensen Jackman LPN PHYSICAL EXAMINATION: General: The patient is 47 year old female, well nourished, well hydrated in no acute distress. Thepatient is oriented to time, place, and person. VITALS: Blood pressure 128/88, pulse 117, temperature 36.7 C (98.1 F), height 167.6 cm (5' 6), weight 92.1 kg (203 lb), last menstrual period 08/06/2020, SpO2 96 %. Body mass index is 32.77 kg/m . Head: Normal cephalic, atraumatic Eyes: pupils are equally round, sclera are clear/anicteric Neck is supple with no tracheal deviation Respiratory: Normal respiratory excursion and pattern. Abdominal exam: benign Extremities: no clubbing, cyanosis or edema. Neuro: non focal Psych: normal mood IMPRESSION: rectal bleeding PLAN: I have discussed the above with the patient. I have offered colonoscopy, possible biopsies. I have explained the procedure to the patient. I have counseled the patient as to the risks of the procedure, including but not limited to: infection, bleeding, perforation of the GI tract, injury to any intraabdominal organs such as the liver/spleen, inability to complete the procedure, complications of anesthesia, etc. - the patient understands. Patient was counseled that if there are changes in his/her medical condition, to let the office know if surgery should proceed. If there are changes in patient's medical condition from time of this encounter to the day of the procedure that preclude anesthesia, patient may have procedure cancelled for patient's safety. The patient wishes to proceed. I have answered all questions to the patient s satisfaction and the patient has no further questions. . Diagnoses: (K62.5) Rectal bleeding (primary encounter diagnosis) Debra Carrillo MD * Debra Carrillo MD - 09/22/2022 12:45 PM EST HISTORY AND PHYSICAL Vinod Ann 1975 REFERRING PHYSICIAN: Isatu Nieto MD CHIEF COMPLAINT: Consult (loose stools, diarrhea ) HPI: The patient is a 47 year old female presents with complaint of rectal bleeding. The patient denies blood in stools, denies abdominal pain, and denies changes in bowel habits. The patient notes no colon cancer in immediate family. The patient has had previous colonoscopy at [facility] with MAC anesthesia 12/01/2019. No polyps found and random colon biopsies for diarrhea were negative for colitis. 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 , did have small relapse 02/15 with of mother Severe episode of recurrent major depressive disorder, without psychotic features (HCC) Kendra Padilla Suicidal ideation PAST SURGICAL HISTORY Procedure Laterality Date BX OF BREAST; INCISIONAL Left 08/29/2019 [facility]- Benign COLONOSCOPY FLX DX W/COLLJ SPEC WHEN PFRMD 12/01/2019 Colonoscopy PAST SURGICAL HISTORY OF 03/2010 gall bladder removed PAST SURGICAL HISTORY OF Left wrist surgery when she was 15 years old PAST SURGICAL HISTORY OF 2013 tubal ligation PAST SURGICAL HISTORY OF 02/2022 bilateral cyst removed, [place] Current Outpatient Medications Medication Sig hydrOXYzine pamoate (VISTARIL) 50 mg capsule Take 50 mg by mouth twice daily. meloxicam (MOBIC) 7.5 mg tablet Take 1 tablet by mouth once daily. Take with food. multivitamin tablet Take 1 tablet by mouth once daily. oxybutynin XL (DITROPAN XL) 5 mg 24 hr tablet Take 5 mg by mouth once daily. omeprazole (PRILOSEC) 40 mg capsule Take 1 capsule by mouth once daily. ARIPiprazole (ABILIFY) 20 mg tablet Take 1 tablet by mouth once daily. peg 3350-Electrolytes (GOLYTELY) 236-22.74-6.74 -5.86 gram suspension Refer to printed prep instructions from your provider. ALLERGIES: Cephalexin, Fenofibrate, Zoloft [Sertraline Hcl], and Clindamycin PERSONAL HISTORY: Social History Tobacco Use Smoking status: Current Every Day Smoker Packs/day: 2.00 Years: 29.00 Pack years: 58.00 Types: Cigarettes Smokeless tobacco: Never Used Vaping Use Vaping Use: Some days Substances: Nicotine Substance Use Topics Alcohol use: No Comment: quit , small relapse in 02/15 with of mother. Drug use: No FAMILY HISTORY Problem Relation Age of Onset Lung Cancer Mother at 63 Osteoporosis Mother Alcohol/Drug Mother alcohol Hypertension Father Alcohol/Drug Father alcohol Aneurysm Father abdominal Prostate Cancer Father Alcohol/Drug Sister drugs other (Aids) Sister drug user Aneurysm Sister head Breast Cancer Paternal Grandmother late 50's or 60's Alcohol/Drug Niece Ovarian cancer Niece diagnosed young The review of systems data was entered by the nurse and reviewed by me Nursing Notes: Jensen Jackman LPN 03/13/2022 10:42 AM Signed REVIEW OF SYSTEMS: General: The patient notes fatigue, denies weight loss, notes weight gain, denies feeling hot, and denies feelings of cold. Eyes: The patient denies glaucoma, denies eye injury/surgery, wears glasses or contacts. Ear/Nose/Throat: The patient denies allergies, denies hayfever, denies ear infections, and denies bloody noses. Cardiovascular: The patient denies chest pain, denies heart disease, denies high blood pressure,denies cardiac stent, denies prior heart attack, denies irregular heart beat, denies high cholesterol, denies poor circulation, denies heart failure, other cardiac issues, notes claudication, denies coldfeet, denies peripheral arterial stent. Respiratory: The patient denies tuberculosis, denies pneumonia, denies frequent cough, denies pulmonary embolism, denies shortness of breath, and denies coughing up blood. Gastrointestinal: The patient denies difficulty swallowing, notes acid reflux, notes ulcers, deniesvomiting, denies jaundice/hepatitis, notes gallbladder problems, denies black or tarry stools, notes hemorrhoids, notes bleeding from rectum, denies diverticulitis, denies constipation, notes diarrhea, notes loss of stool control, and denies hernias. Kidney/Bladder: The patient denies kidney stones, denies urine infections, and denies bloody urine. Skin: The patient denies a history of skin cancer, denies bleeding/changing moles, and denies a history of skin rash. Neurologic: The patient denies a history of epilepsy/convulsions, denies headaches, denies head/spinal injuries, and denies stroke/TIA. Psychiatric: The patient notes psychiatric medications, notes depression, and denies voices, notes substance abuse. Endocrine: The patient denies thyroid disorders, denies diabetes, and denies hormonal problems. Hematologic: The patient denies a history of bruising, denies bleeding, and denies anemia, denies blood clots. Infections: The patient denies a history of measles and mumps, denies rheumatic fever, and denies sexually transmitted diseases. Musculoskeletal: The patient notes back pain/injury, notes back problems, denies sciatica, denies knee/foot trouble, notes arthritis, or denies gout. When was patient's last Mammogram screening? 2021 Last Colonoscopy: 2020 Jensen Jackman LPN PHYSICAL EXAMINATION: General: The patient is 47 year old female, well nourished, well hydrated in no acute distress. Thepatient is oriented to time, place, and person. VITALS: Blood pressure 128/88, pulse 117, temperature 36.7 C (98.1 F), height 167.6 cm (5' 6), weight 92.1 kg (203 lb), last menstrual period 08/06/2020, SpO2 96 %. Body mass index is 32.77 kg/m . Head: Normal cephalic, atraumatic Eyes: pupils are equally round, sclera are clear/anicteric Neck is supple with no tracheal deviation Respiratory: Normal respiratory excursion and pattern. Abdominal exam: benign Extremities: no clubbing, cyanosis or edema. Neuro: non focal Psych: normal mood IMPRESSION: rectal bleeding PLAN: I have discussed the above with the patient. I have offered colonoscopy, possible biopsies. I have explained the procedure to the patient. I have counseled the patient as to the risks of the procedure, including but not limited to: infection, bleeding, perforation of the GI tract, injury to any intraabdominal organs such as the liver/spleen, inability to complete the procedure, complications of anesthesia, etc. - the patient understands. Patient was counseled that if there are changes in his/her medical condition, to let the office know if surgery should proceed. If there are changes in patient's medical condition from time of this encounter to the day of the procedure that preclude anesthesia, patient may have procedure cancelled for patient's safety. The patient wishes to proceed. I have answered all questions to the patient s satisfaction and the patient has no further questions. . Diagnoses: (K62.5) Rectal bleeding (primary encounter diagnosis) Debra Carrillo MD [facility] Miscellaneous Notes* Telephone Encounter - Jensen Jackman LPN - 09/19/2022 3:22 PM EST Patient updated on bowel prep. * Telephone Encounter - Jensen Jackman LPN - 09/19/2022 2:31 PM EST Left message for patient to call office back regarding bowel prep day before procedure. You may start your bowel prep any time after 1pm and before 6pm, alternate between bowel prep and clear liquids. Drink until bowel are completely clear(may have yellowish tint) or until bowel prep isgone. Failure to have clear stool may lead to cancellation of procedure You may have clear liquids up to 4 hours prior to your procedure, unless told otherwise. * Telephone Encounter - Liana Polanco LPN - 09/19/2022 2:18 PM EST Patient called in requesting information regarding colonoscopy prep. Advise patient with Golytely prep do not eat any solid food the entire day before colonoscopy and do not mix solution until the day before there colonoscopy. Patient verbalized understanding. Patient questions what time she shouldstart taking solution the day before procedure. Please advise and contact patient. Liana Polanco LPN documented in this encounterAv[facility]-14-[facility]22 Miscellaneous Notes* Telephone Encounter - Lashae Choi - 08/18/2022 11:21 AM EDT Pt needs the Golytely sent to [facility] instead of [facility] so that it can be delivered to her. Pended. Please review and advise. Lashae Choi MA documented in this encounterAv[facility]22 Miscellaneous Notes* Telephone Encounter - Padmini Sexton - 08/17/2022 1:38 PM EDT Patient has been identified by name and date of : Yes Last office visit in this department: Visit date not found RX INSTRUCTIONS: Patient aware RX will be sent to pharmacy. No need to notify patient. Patient phones requesting refills as follows: Requested Prescriptions Pending Prescriptions Disp Refills omeprazole (PRILOSEC) 40 mg capsule 30 capsule 11 Sig: Take 1 capsule by mouth once daily. Please review and advise. Padmini Sexton documented in this encounterAv[facility]-2022 Miscellaneous Notes* Telephone Encounter - Stacia Anderson RN - 08/17/2022 11:07 AM EDT Patient notified. Stacia Anderson RN * Telephone Encounter - Stacia Anderson RN - 08/17/2022 8:23 AM EDT Left message for patient to call office. Stacia Anderson RN * Telephone Encounter - Jimena Chávez APRN.CNP - 08/17/2022 7:15 AM EDT Please notify pt - vaginal cultures positive for yeast. Monistat 7 or generic - a applicator full at bedtime every night for 7 nights - prescription sent. STD results are negative. Jimena Chávez APRN.CNP documented in this encounterAv[facility]10-12-[facility]22 Instructions* Patient Instructions* Jimena Chávez APRN.CNP - 08/16/2022 4:20 PM EDT Minimizing irritation of the vulva (area around the vagina) Wear white cotton underwear. Avoid synthetic fabrics and tight clothing. Sleep wearing shorts or pajama bottoms without underwear. Shower as soon as possible after exercise. Avoid clothing detergents and soaps with perfumes or dyes. Use warm (not hot) water to wash the vulva and if you use soap use a product designed for sensitive skin (like Dove or Cetaphil). Do not douche or use creams/powders in the vulvar area unless instructed by your physician. If you must douche, use only plain warm water. Make sure the vulva is dry before dressing by patting dry with a towel. Avoid vigorous rubbing withthe towel. You may want to use the blow dryer (on the cool setting only!) on the vulva. The most important way to let your body heal is by avoiding scratching. Many patients find it difficult to avoid scratching at night when they are most aware of the itchiness. You can try taking Benadryl just before bedtime. Some women find it helpful to wear cotton gloves to bed to avoid scratching at night. documented in this encounterAv[facility]10-12-[facility]22 History of Present illness Narrative* Jimena Chávez APRN.CNP - 08/16/2022 3:58 PM EDT Liaison Officer offered: Patient declines. Vinod Ann is a 47 year old female who presents for vaginal pruritis and burning for 1 week(s). Finished 2 weeks of antibiotics 1 week ago for breast cyst surgery. Request urine and vaginal testing. Negative STD testing 06/2022. Vaginal discharge: scant amount, clear, and yellow. Itching: YES has resolved. Dyspareunia: No Fever/chills: No Abdominal pain: No Bladder: Negative for dysuria or frequency Bowel: No blood in stool, pain with BM, tarry stool, persistent diarrhea or constipation Any new sexual partners or concern for STD exposure: No new partners since negative STD testing 06/26/2022 Any history of STDs: None Does your partner have any new complaints: No Are you currently taking any medications to treat vaginitis: No Do you use feminine sprays, douches or deodorants: No Menstrual cycle: no menses - postmenopausal Past medical, surgical, social history, medications and allergies reviewed and updated. OBJECTIVE: BP 128/86 Ht 5' 6 (1.68m) Wt 199 lb (90.3kg) LMP 08/06/2020 BMI 32.13 kg/(m^2). GENERAL: Well developed, well nourished in no apparent distress ABDOMEN: soft, non-tender, and no masses PELVIC: external genitalia normal, normal Bartholin's glands, urethra, Lucama's glands, no vulvar lesions, no cervical lesions, Clear and small amount white discharge present, normal appearing perineal body and perianal region BIMANUAL: uterus normal size, shape and consistency, no adnexal masses, and non-tender. ASSESSMENT/PLAN: 1. Vaginal burning - ICD9: 625.8, ICD10: N94.9 (primary diagnosis) - SALLY / TRICHOMONAS AMPLIFICATION - BACTERIAL VAGINOSIS AMPLIFICATION - GC/CHLAMYDIA DNA DET - UA POC trace intact blood - vulvar hygiene instructions. 2. Screen for STD (sexually transmitted disease) - ICD9: V74.5, ICD10: Z11.3 - SALLY / TRICHOMONAS AMPLIFICATION - GC/CHLAMYDIA DNA DET - Discussed condom use for safe sex. Will notify of results. Follow- up as needed. Jimena Chávez APRN.CNP I spent a total of 20 minutes on the date of the service which included preparing to see the patient, [id number] patient care, completing clinical documentation, obtaining and/or reviewing separately obtained history, performing a medically appropriate examination, counseling and educating the pat ient/family/caregiver, and ordering medications, tests, or procedures. documented in this encounterAv[facility]10-10-2022 History of Present illness Narrative* Jennifer Toledo RT(R) - 08/14/2022 9:00 AM EDT Radiology Service Progress Note PATIENT NAME: Vinod Ann DATE OF SERVICE: August 14, 2022 TIME: 8:58 AM PATIENT IDENTITY VERIFICATION COMPLETED USING TWO (2) IDENTIFIERS: Name and Date of confirmedby patient verbally. FALL SCREENING: Has the patient had 2 falls in the last year or 1 fall with injury or currently using an Ambulatory Assistive Device (Walker, Cane, Wheelchair, Crutches, etc.)? No PATIENT GENDER DATA: Female. status: : No status: NO. PATIENT RELEVANT IMPLANT DATA REVIEWED: Yes RADIOLOGY DEPARTMENT: General X-ray: Exam(s) Completed: Lower Extremity X- Ray(s): Ankle, Right and Wt. Bearing PERIPHERAL IV DATA: Not applicable SIGNED BY: RT Olivia(R) August 14, 2022 8:58 AM documented in this encounterAv[facility]10-07-2022 Miscellaneous Notes* Telephone Encounter - Alma Barbosa LPN - 08/11/2022 2:53 PM EDT Patient has been identified by name and date of : Yes Pharmacy phones for refill(s): Requested Prescriptions Pending Prescriptions Disp Refills meloxicam (MOBIC) 7.5 mg tablet 30 tablet 2 Sig: Take 1 tablet by mouth once daily. Take with food. Date of last office visit in primary care: 07/26/22 Last 2 Encounter Wt Readings: Date: Wt: 07/26/2022 91.2 kg (201 lb) 07/20/2022 91.2 kg (201 lb) Previous labs/tests for medication: Not applicable Please advise. Thank you. Alma Barbosa LPN documented in this encounterAvita [facility]09-22-2022 Miscellaneous Notes* Telephone Encounter - Vivienne Newman Ma - 07/27/2022 1:19 PM EDT Letter printed and faxed as requested. * Telephone Encounter - Isatu Nieto MD - 07/27/2022 1:15 PM EDT Please print for patient * Telephone Encounter - Amanda Lezama RN - 07/27/2022 9:47 AM EDT Patient reports she is covid +, yesterday, and needs a letter sent to employer, [employer], attn: Argelia, to confirm she has covid and is in quarantine. documented in this encounterAvita [facility]09-21-2022 History of Present illness Narrative* Milly Feliciano, GENERATOR SWITCHBOARD OPERATOR.HAND SCRAPER - 07/26/2022 3:45 PM EDT CC: Patient presents with: Recheck: Follow up lump in groin HPI Vinoddamien Ann is a 47 year old female who presents today for lump in groin but also thinks she has COVID Has had symptoms for the past 5 days. Has a sore throat, nonproductive cough, feels she has a fever at times, chills, headache, fatigue, slight sinus drainage, nausea, and diarrhea. Denies sinus pressure, chest pain, edema, or palpitation. Lump in groin she has was seen for previously and put on doxycyline as it was draining serosanguineous fluid. No longer is red, tender, or draining. Was consulted to general surgery for this and was instructed it was not concerning at this time and told to follow up if it was getting larger, red, or painful. Per patient it has not been red, painful, is not getting larger, and has not drained since prior todoxycycline. REVIEW OF SYSTEMS General: no night sweats, no recurrent infections, no change in appetite, no change in energy, and no significant changes in weight Respiratory: no wheezing, no shortness of breath, no hemoptysis Cardiovascular: no chest pain, no chest pressure, no palpitations, and no swelling GI: See HPI Neurologic: No weakness, numbness, tingling, dizziness, or syncope. 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 , did have small relapse 02/15 with of mother Severe episode of recurrent major depressive disorder, without psychotic features (HCC) Kendra Padilla Suicidal ideation PAST SURGICAL HISTORY Procedure Laterality Date BX OF BREAST; INCISIONAL Left 08/29/2019 [facility]- Benign COLONOSCOPY FLX DX W/COLLJ SPEC WHEN PFRMD 12/01/2019 Colonoscopy PAST SURGICAL HISTORY OF 03/2010 gall bladder removed PAST SURGICAL HISTORY OF Left wrist surgery when she was 15 years old PAST SURGICAL HISTORY OF 2013 tubal ligation PAST SURGICAL HISTORY OF 02/2022 bilateral cyst removed, [place] ALLERGIES Cephalexin, Fenofibrate, Zoloft [Sertraline Hcl], and Clindamycin MEDICATIONS oxybutynin ER (DITROPAN XL) 10 mg 24 hr tablet Take 1 tablet by mouth once daily. ergocalciferol 50,000 unit capsule (VITAMIN D2, DRISDOL) Take 1 capsule by mouth two times a week. TO BE TAKEN ORALLY DIRECTED. Take 1 tablet by mouth twice weekly [id number], then decrease to 1 tablet weekly. QUEtiapine (SEROQUEL) 50 mg tablet hydrOXYzine pamoate (VISTARIL) 50 mg capsule meloxicam (MOBIC) 7.5 mg tablet Take 1 tablet by mouth once daily. Take with food. peg 3350-Electrolytes (GOLYTELY) 236-22.74-6.74 -5.86 gram suspension Refer to printed prep instructions from your provider. multivitamin tablet Take 1 tablet by mouth once daily. omeprazole (PRILOSEC) 40 mg capsule Take 1 capsule by mouth once daily. ARIPiprazole (ABILIFY) 20 mg tablet Take 1 tablet by mouth once daily. FAMILY HISTORY Problem Relation Age of Onset Lung Cancer Mother at 63 Osteoporosis Mother Alcohol/Drug Mother alcohol Hypertension Father Alcohol/Drug Father alcohol Aneurysm Father abdominal Prostate Cancer Father Alcohol/Drug Sister drugs other (Aids) Sister drug user Aneurysm Sister head Breast Cancer Paternal Grandmother late 50's or 60's Alcohol/Drug Niece Ovarian cancer Niece diagnosed young Social History Tobacco Use Smoking status: Every Day Packs/day: 2.00 Years: 29.00 Pack years: 58.00 Types: Cigarettes Smokeless tobacco: Never Vaping Use Vaping Use: Former Substances: Nicotine Substance Use Topics Alcohol use: No Comment: quit , small relapse in 02/15 with of mother. Drug use: No PHYSICAL EXAM BP 132/78 Pulse 80 Resp 16 Wt 91.2 kg (201 lb) LMP 08/06/2020 BMI 32.44 kg/m General Appearance: well appearing, in no acute distress, alert Skin: Skin color, texture, turgor normal for age; Eyes: conjunctiva pink and moist, no icterus, sclera white, non-injected Nose/sinus: Nares normal. Septum midline. Mucosa normal. No drainage. Neck: Thyroid normal size and symmetric without palpable nodules, No adenopathy Oropharynx: palate normal, tongue midline and normal, soft palate, uvula, and tonsils normal Lymph nodes: No cervical lymphadenopathy and No supraclavicular lymphadenopathy Lungs: Lungs clear to auscultation. No wheezing, rhonchi, rales. Heart: RRR without murmur, gallop, or rubs. No ectopy Health maintenance reviewed with patient: HEPATITIS B(1 of 3 - 3-dose series) Never done PNEUMOCOCCAL(1 - PCV) due on 01/24/1980 LIPID SCREEN due on 08/24/2019 INFLUENZA(1) due on 07/06/2022 COVID-19 VACCINE(1) due on 12/26/2022 DEPRESSION SCREENING due on 12/26/2022 MAMMOGRAM due on 01/03/2023 COLORECTAL CANCER SCREENING due on 12/01/2024 DIABETES SCREEN due on 12/26/2024 PAP TESTING due on 06/26/2027 HPV TESTING due on 06/26/2027 DTAP,TDAP,TD(3 - Td or Tdap) due on 11/19/2028 HEPATITIS C SCREENING Completed HIV SCREENING Completed DATA REVIEWED: No new labs ASSESSMENT/PLAN: 1. Acute cough - ICD9: 786.2, ICD10: R05.1 (primary diagnosis) - COVID WITH FLUA+B, ROUTINE 2. Fever, unspecified fever cause - ICD9: 780.60, ICD10: R50.9 - COVID WITH FLUA+B, ROUTINE - RAPID STREP TEST B/O 3. Sore throat - ICD9: 462, ICD10: J02.9 - COVID WITH FLUA+B, ROUTINE - RAPID STREP TEST B/O 4. Fatigue, unspecified type - ICD9: 780.79, ICD10: R53.83 - COVID WITH FLUA+B, ROUTINE - RAPID STREP TEST B/O 5. Groin abscess - ICD9: 682.2, ICD10: L02.214 - abscess resolved - no infection identified on exam - follow up with general surgery as needed for this if this gets larger, red, tender, or starts to drain again. Prescription instructions reviewed with patient as applicable. Potential red flag symptoms discussed with the patient. Reviewed appropriate action plan to take if red flag symptoms occur. Patient agreeable to treatment plan. Milly Feliciano APRN.CNP documented in this encounterAvita [facility]09-16-[facility]22 History of Present illness Narrative* Charlie Watson MD - 07/21/2022 7:57 AM EDT HISTORY AND PHYSICAL Vinod Ann 1975 REFERRING PHYSICIAN: Isatu Nieto MD CHIEF COMPLAINT: Consult (Left nipple discharge) HPI: The patient is a 47 year old female with a complaint of drainage from bile nipple areas. Has some discharge from her nipple for years, had surgery the past 2 months. She had a couple surgery of dilated ducts done, one on each side was done in [facility]. It healed with a dimple. She is nothappy with it , I explained the whole scarring and healing process and that it is hard to know how one heals.The discharge on the left side is still not resolved., there is no pain, fever, or swelling there.but some greenish, yellow discharge that is present Recent mammograms and ultrasound showed status post bilateral retroareolar surgeries with postoperative changes with scarring and thickening more prominent on the left side.. The patient is being seen by me today at the request of Dr. Isatu Nieto MD for my opinion and advice regarding Breast abscess (primary encounter diagnosis). 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 , did have small relapse 02/15 with of mother Severe episode of recurrent major depressive disorder, without psychotic features (HCC) Kendra Padilla Suicidal ideation PAST SURGICAL HISTORY Procedure Laterality Date BX OF BREAST; INCISIONAL Left 08/29/2019 [facility] Benign COLONOSCOPY FLX DX W/COLLJ SPEC WHEN PFRMD 12/01/2019 Colonoscopy PAST SURGICAL HISTORY OF 03/2010 gall bladder removed PAST SURGICAL HISTORY OF Left wrist surgery when she was 15 years old PAST SURGICAL HISTORY OF 2013 tubal ligation PAST SURGICAL HISTORY OF 02/2022 bilateral cyst removed, [place] Current Outpatient Medications Medication Sig ergocalciferol 50,000 unit capsule (VITAMIN D2, DRISDOL) Take 1 capsule by mouth two times a week. TO BE TAKEN ORALLY DIRECTED. Take 1 tablet by mouth twice weekly [id number], then decrease to 1 tablet weekly. QUEtiapine (SEROQUEL) 50 mg tablet hydrOXYzine pamoate (VISTARIL) 50 mg capsule meloxicam (MOBIC) 7.5 mg tablet Take 1 tablet by mouth once daily. Take with food. peg 3350-Electrolytes (GOLYTELY) 236-22.74-6.74 -5.86 gram suspension Refer to printed prep instructions from your provider. multivitamin tablet Take 1 tablet by mouth once daily. oxybutynin XL (DITROPAN XL) 5 mg 24 hr tablet Take 5 mg by mouth once daily. omeprazole (PRILOSEC) 40 mg capsule Take 1 capsule by mouth once daily. ARIPiprazole (ABILIFY) 20 mg tablet Take 1 tablet by mouth once daily. No current facility-administered medications for this visit. ALLERGIES: Cephalexin, Fenofibrate, Zoloft [Sertraline Hcl], and Clindamycin PERSONAL HISTORY: Social History Tobacco Use Smoking status: Every Day Packs/day: 2.00 Years: 29.00 Pack years: 58.00 Types: Cigarettes Smokeless tobacco: Never Vaping Use Vaping Use: Former Substances: Nicotine Substance Use Topics Alcohol use: No Comment: quit , small relapse in 02/15 with of mother. Drug use: No FAMILY HISTORY: FAMILY HISTORY Problem Relation Age of Onset Lung Cancer Mother at 63 Osteoporosis Mother Alcohol/Drug Mother alcohol Hypertension Father Alcohol/Drug Father alcohol Aneurysm Father abdominal Prostate Cancer Father Alcohol/Drug Sister drugs other (Aids) Sister drug user Aneurysm Sister head Breast Cancer Paternal Grandmother late 50's or 60's Alcohol/Drug Niece Ovarian cancer Niece diagnosed young REVIEW OF SYMPTOMS: The review of systems data was entered by the nurse and reviewed by me Nursing Notes: Jensen JackmanZULEMA 07/20/2022 3:32 PM Signed REVIEW OF SYSTEMS: General: The patient denies fatigue, denies weight loss, notes weight gain, denies feeling hot, anddenies feelings of cold. Eyes: The patient denies glaucoma, denies eye injury/surgery, wears glasses or contacts. Ear/Nose/Throat: The patient notes allergies, denies hayfever, denies ear infections, and denies bloody noses. Cardiovascular: The patient denies chest pain, denies heart disease, denies high blood pressure,denies cardiac stent, denies prior heart attack, denies irregular heart beat, denies high cholesterol, denies poor circulation, denies heart failure, other cardiac issues, denies claudication, denies cold feet, denies peripheral arterial stent. Respiratory: The patient denies tuberculosis, denies pneumonia, denies frequent cough, denies pulmonary embolism, denies shortness of breath, and denies coughing up blood. Gastrointestinal: The patient denies difficulty swallowing, notes acid reflux, notes ulcers, deniesvomiting, denies jaundice/hepatitis, notes gallbladder problems, denies black or tarry stools, denies hemorrhoids, notes bleeding from rectum, denies diverticulitis, denies constipation, notes diarrhea, notes loss of stool control, and denies hernias. Kidney/Bladder: The patient denies kidney stones, denies urine infections, and denies bloody urine. Skin: The patient denies a history of skin cancer, denies bleeding/changing moles, and denies a history of skin rash. Neurologic: The patient denies a history of epilepsy/convulsions, denies headaches, denies head/spinal injuries, and denies stroke/TIA. Psychiatric: The patient notes psychiatric medications, notes depression, and denies voices, notes substance abuse. Endocrine: The patient denies thyroid disorders, denies diabetes, and denies hormonal problems. Hematologic: The patient denies a history of bruising, denies bleeding, and denies anemia, denies blood clots. Infections: The patient denies a history of measles and mumps, denies rheumatic fever, and denies sexually transmitted diseases. Musculoskeletal: The patient notes back pain/injury, notes back problems, notes sciatica, denies knee/foot trouble, notes arthritis, or denies gout. When was patient's last Mammogram screening? 2021 Last Colonoscopy: 2019 Jensen Jackman LPN PHYSICAL EXAMINATION: General: The patient is 47 year old female, well nourished, well hydrated in no acute distress. Thepatient is oriented to time, place, and person. VITALS: Blood pressure 118/78, pulse 104, temperature 36.6 C (97.9 F), height 167.6 cm (5' 6), weight 91.2 kg (201 lb), last menstrual period 08/06/2020, SpO2 95 %. HEENT: Normal cephalic, ataumatic, pupils are equally round, sclera are anicteric, mucous membranesare moist, oropharynx is clear. Neck has no masses, asymmetry or lymphadenopathy. Thyroid is unremarkable. Rectal exam: exam deferred Extremities: no clubbing, cyanosis or edema. No adenopathy. Other: Postoperative scarring relatively new in both the left and right breasts are identified. There appears to be some slight yellowish discharge coming from this area. The breast itself really does not show any signs of cellulitis it is nontender to touch. LABORATORY VALUES: As Noted RADIOLOGIC STUDIES: As Noted Assessment IMPRESSION: Breast abscess (primary encounter diagnosis) PLAN: I encouraged the patient to get back to her surgeon that did the surgery. I think that he is going to have to reevaluate to see if there is more surgery that he needs to do. I have seen this patient in the past and recommended that we get her to breast surgeons to evaluate more surgery versusconservative measures. I do not feel comfortable operating on her for fear of losing her nipples. And the fact that she is still smoking makes any surgery around her nipple area very tenuous at best. Diagnoses: (N61.1) Breast abscess (primary encounter diagnosis) My findings have been communicated to Dr. Isatu Nieto MD via shared medical record. This note will be forwarded to Dr. Isatu Nieto MD. Return to Clinic: The patient is instructed to follow-up with me as needed. Charlie Watson III, MD documented in this encounterAvita [facility] Nurse Note* Jensen Jackman, ZULEMA - 07/20/2022 3:30 PM EDT REVIEW OF SYSTEMS: General: The patient denies fatigue, denies weight loss, notes weight gain, denies feeling hot, anddenies feelings of cold. Eyes: The patient denies glaucoma, denies eye injury/surgery, wears glasses or contacts. Ear/Nose/Throat: The patient notes allergies, denies hayfever, denies ear infections, and denies bloody noses. Cardiovascular: The patient denies chest pain, denies heart disease, denies high blood pressure,denies cardiac stent, denies prior heart attack, denies irregular heart beat, denies high cholesterol, denies poor circulation, denies heart failure, other cardiac issues, denies claudication, denies cold feet, denies peripheral arterial stent. Respiratory: The patient denies tuberculosis, denies pneumonia, denies frequent cough, denies pulmonary embolism, denies shortness of breath, and denies coughing up blood. Gastrointestinal: The patient denies difficulty swallowing, notes acid reflux, notes ulcers, deniesvomiting, denies jaundice/hepatitis, notes gallbladder problems, denies black or tarry stools, denies hemorrhoids, notes bleeding from rectum, denies diverticulitis, denies constipation, notes diarrhea, notes loss of stool control, and denies hernias. Kidney/Bladder: The patient denies kidney stones, denies urine infections, and denies bloody urine. Skin: The patient denies a history of skin cancer, denies bleeding/changing moles, and denies a history of skin rash. Neurologic: The patient denies a history of epilepsy/convulsions, denies headaches, denies head/spinal injuries, and denies stroke/TIA. Psychiatric: The patient notes psychiatric medications, notes depression, and denies voices, notes substance abuse. Endocrine: The patient denies thyroid disorders, denies diabetes, and denies hormonal problems. Hematologic: The patient denies a history of bruising, denies bleeding, and denies anemia, denies blood clots. Infections: The patient denies a history of measles and mumps, denies rheumatic fever, and denies sexually transmitted diseases. Musculoskeletal: The patient notes back pain/injury, notes back problems, notes sciatica, denies knee/foot trouble, notes arthritis, or denies gout. When was patient's last Mammogram screening? 2021 Last Colonoscopy: 2019 Jensen Jackman LPN documented in this encounterAvita [facility]08-26-2022 Miscellaneous Notes* Telephone Encounter - Ant Sahu - 06/30/2022 1:52 PM EDT Patient is requesting to schedule colonoscopy, had some other things going on and rescheduled/cancelled a couple times and is ready to put back on schedule.Will need new order, there are orders from January of 2022 (wasn't sure if those were what we should be using). Please advise, thank you. documented in this encounterAvita Health [facility]08-22-2022 Miscellaneous Notes* Telephone Encounter - Gifty Figueroa RN - 06/26/2022 3:19 PM EDT Lab orders faxed via [facility] to [facility] * Telephone Encounter - Rachael Sahu Pss - 06/26/2022 3:08 PM EDT Patient called requesting lab orders from Dr. Conklin and Dr. Nieto be faxed to [facility]. documented in this encounterAvita Health [facility]08-22-2022 History of Present illness Narrative* Monica Conklin MD - 06/26/2022 12:59 PM EDT F. AxChatroy offered: Patient accepts, visit chaperoned by Anabela Walker MS3. On oxybutinin for OAB, takes once a day, still gets up 4 times a night or more. Vinod is a 47 year old who presents for an annual gynecologic exam without complaints. Menses: n/a menopause about 4 years ago. . Contraception: tubal sterilization HPV vaccine: No Last Pap: normal HPV: uncertain History of abnormal pap: No Last mammogram: 2021normal Sexually active: Yes OB History T1 L1 SAB3 IAB0 Ectopic0 Multiple0 Live Births1 Comment: One baby stillborn Lpn Cma History LMP: 08/06/2020, Perimenopausal Age at Menarche: Age at First : Age at Menopause: Lpn Cma History Comments: Sexual Activity: Not Asked; No partner data on record Contraception: No contraception data on record 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 , did have small relapse 02/15 with of mother Severe episode of recurrent major depressive disorder, without psychotic features (HCC) Kendra Padilla Suicidal ideation PAST SURGICAL HISTORY Procedure Laterality Date BX OF BREAST; INCISIONAL Left 08/29/2019 [facility] COLONOSCOPY FLX DX W/COLLJ SPEC WHEN PFRMD 12/01/2019 Colonoscopy PAST SURGICAL HISTORY OF 03/2010 gall bladder removed PAST SURGICAL HISTORY OF Left wrist surgery when she was 15 years old PAST SURGICAL HISTORY OF 2013 tubal ligation PAST SURGICAL HISTORY OF 02/2022 bilateral cyst removed, [place] FAMILY HISTORY Problem Relation Age of Onset Lung Cancer Mother at 63 Osteoporosis Mother Alcohol/Drug Mother alcohol Hypertension Father Alcohol/Drug Father alcohol Aneurysm Father abdominal Prostate Cancer Father Alcohol/Drug Sister drugs other (Aids) Sister drug user Aneurysm Sister head Breast Cancer Paternal Grandmother late 50's or 60's Alcohol/Drug Niece Ovarian cancer Niece diagnosed young SOCIAL HISTORY Social History Tobacco Use Smoking status: Every Day Packs/day: 2.00 Years: 29.00 Pack years: 58.00 Types: Cigarettes Smokeless tobacco: Never Vaping Use Vaping Use: Former Substances: Nicotine Substance Use Topics Alcohol use: No Comment: quit , small relapse in 02/15 with of mother. Drug use: No REVIEW OF SYSTEMS Abdomen: No abdominal pain, nausea, vomiting, diarrhea, or constipation. Some IBS but no changes Bladder: No dysuria, gross hematuria, urinary urgency, or incontinence. SOme frequency Breast: no new c/o, had bx in February. Allergies and current medication updated:Yes EXAM: Ht 5' 6 (1.68m) Wt 202 lb (91.6kg) LMP 08/06/2020 BMI 32.62 kg/(m^2). GENERAL: pleasant, female in no apparent distress HEENT: Normocephalic, atraumatic, mucus membranes moist, and no lesions NECK: Supple, full range of motion, no adenopathy, and thyroid normal DERMATOLOGY: Normal, without lesions, non-icteric, and non-hirsute BREAST: soft, non-tender, symmetric, no dominant mass, normal nipple-areolar complex, no lymphadenopathy, no nipple discharge, and scars noted from previous biopsy sites CHEST: Normal inspiratory effort ABDOMEN: soft, non-tender, and no masses PELVIC: external genitalia normal, normal Bartholin's glands, urethra, Lucama's glands, no vulvar lesions, no cervical lesions, physiologic discharge present, normal appearing perineal body and perianal region, cystocele 1st degree, rectocele 1st degree BIMANUAL: uterus normal size, shape and consistency, no adnexal masses, and non-tender RECTOVAGINAL: deferred. NEURO: alert and oriented x3,exam grossly non-focal EXTREMITIES: normal ASSESSMENT/PLAN: 1) Health maintenance: Pap done with HPV. Mammogram up to date . 2) Contraception: tubal sterilization. Contraceptive options reviewed and information provided. 3) STD screening: Accepts full STD screeening including HIV, Syphilis and Hepatitis. 4) Follow up one year or sooner as needed Monica Conklin MD documented in this encounterAvita Health [facility]08-22-2022 History of Present illness Narrative* Isatu Nieto MD - 06/26/2022 11:15 AM EDT Reason for Visit Patient presents with: Recheck: cyst on left breast and groin area, mammo and bone density order needed Vinod Ann is a 47 year old female who presents here today for Above Complaints.. Health Maintenance HEPATITIS B(1 of 3 - 3-dose series) PNEUMOCOCCAL(1 - PCV) LIPID SCREEN PAP TESTING HPV TESTING HPI Has some discharge from her nipple for years, had surgery the past 2 months. She had a couple surgery of dilated ducts done, one on each side was done in [facility]. It healed with a dimple. She is not happy with it , I explained the whole scarring and healing process and that it is hard to know how one heals.The discharge on the left side is still not resolved., there is no pain, fever, or swelling there.but some greenish, yellow discharge that is present Due for mammogram. Still smoking, cut out the drinking and drugs, is in alcohol recovery. She is not exercising much. Patient is not taking vitamin d supplements. She is working at [employer], she works for long hours, around 10/12 hours at a time. No problem-specific Assessment & Plan notes found for this encounter. 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 , did have small relapse 02/15 with of mother Severe episode of recurrent major depressive disorder, without psychotic features (HCC) Kendra Padilla Suicidal ideation PAST SURGICAL HISTORY Procedure Laterality Date [facility] BRE[facility]; [facility] FLX DX W/COLLJ SPEC WHEN PFRMD 12/01/2019 Colonoscopy PAST SURGICAL HISTORY OF 03/2010 gall bladder removed PAST SURGICAL HISTORY OF Left wrist surgery when she was 15 years old PAST SURGICAL HISTORY OF 2013 tubal ligation PAST SURGICAL HISTORY OF 02/2022 bilateral cyst removed, [place] FAMILY HISTORY Problem Relation Age of Onset Lung Cancer Mother at 63 Osteoporosis Mother Alcohol/Drug Mother alcohol Hypertension Father Alcohol/Drug Father alcohol Aneurysm Father abdominal Prostate Cancer Father Alcohol/Drug Sister drugs other (Aids) Sister drug user Aneurysm Sister head Breast Cancer Paternal Grandmother late 50's or 60's Alcohol/Drug Niece Ovarian cancer Niece diagnosed young Social History Tobacco Use Smoking status: Every Day Packs/day: 2.00 Years: 29.00 Pack years: 58.00 Types: Cigarettes Smokeless tobacco: Never Vaping Use Vaping Use: Some days Substances: Nicotine Substance Use Topics Alcohol use: No Comment: quit , small relapse in 02/15 with of mother. Drug use: No Past medical history, appointments, medications, allergies reviewed. Pertinent Lab/Diagnostic Studies are reviewed and discussed today Current Outpatient Medications: meloxicam (MOBIC) 7.5 mg tablet peg 3350-Electrolytes (GOLYTELY) 236-22.74-6.74 -5.86 gram suspension multivitamin tablet oxybutynin XL (DITROPAN XL) 5 mg 24 hr tablet omeprazole (PRILOSEC) 40 mg capsule ARIPiprazole (ABILIFY) 20 mg tablet loperamide (IMODIUM) 2 mg cap(s) loratadine (CLARITIN) 10 mg tablet Review of Systems CONSTITUTIONAL: No fevers, chills night sweats, unintended weight loss CARDIOVASCULAR: No chest pain, dyspnea, palpitations, orthopnea, PND, ankle edema. PULM: No dyspnea, unexplained cough. GI: No dysphagia/odynophagia, problematic reflux, constipation, diarrhea, changes in stool habits, hematochezia, melena. : No new urinary complaints, including dysuria, gross hematuria or pyuria. NEURO: No new balance problems, peripheral weakness/paresthesias or numbness of concern. Physical Exam BP 124/60 (BP Site: Left Arm, BP Position: Sitting, BP Cuff Size: Large Adult) Pulse 94 Temp 36.7 C (98.1 F) Resp 14 Ht 167.6 cm (5' 6) Wt 91.6 kg (202 lb) LMP 08/06/2020 SpO2 97% BMI 32.60 kg/m General appearance: Well appearing, alert, in no acute distress, well nourished. Skin: 1 dimples each on the bilateral breast Head: Normocephalic, no masses, lesions, tenderness or abnormalities Eyes: Anicteric sclera. Pupils are equally round and reactive to light. Extraocular movements are intact. Lungs: Lungs clear to auscultation. No wheezing, rhonchi, rales Heart: RRR without murmur, gallop, or rubs. Extremities: No deformities, edema, skin discoloration, clubbing or cyanosis. Good capillary refill. ASSESSMENT/PLAN: 1. Nipple discharge - ICD9: 611.79, ICD10: N64.52 (primary diagnosis) - JAE DIAGNOSTIC BILAT - CONSULT TO GENERAL SURGERY 2. Mixed hyperlipidemia - ICD9: 272.2, ICD10: E78.2 She would like for her to repeat her labs 3. Vitamin D deficiency - ICD9: 268.9, ICD10: E55.9 She needs to take vitamin d supplements sIatu Nieto MD documented in this encounterAvita [facility]07-15-2022 Miscellaneous Notes* Telephone Encounter - Amanda Lezama RN - 05/19/2022 2:45 PM EDT Patient has been identified by name and date of : Yes Pharmacy phones for refill(s): Pending Prescriptions Disp Refills MELOXICAM 7.5 MG TABLET 30 tablet 2 Sig: Take 1 tablet by mouth once daily. Take with food. JOSUE: No Date of last office visit with pcp: 03-24-22. Next appt: 06-05-22 Last 2 Encounter Wt Readings: Date: Wt: 03/24/2022 92.5 kg (204 lb) 03/22/2022 91.4 kg (201 lb 6.4 oz) Previous labs/tests for medication: Blood Pressure: BUN (mg/dL) Date Value 12/26/2021 8 Sodium (mmol/L) Date Value 12/26/2021 138 Last 1 Encounter BP Readings: Date: BP: 03/24/2022 138/98 Blood Counts: WBC (k/uL) Date Value 12/26/2021 8.21 RBC (m/uL) Date Value 12/26/2021 4.67 Hematocrit (%) Date Value 12/26/2021 43.1 Hemoglobin (g/dL) Date Value 12/26/2021 14.0 Platelet Count (k/uL) Date Value 12/26/2021 280 Liver Function: ALT (U/L) Date Value 12/26/2021 19 AST (U/L) Date Value 12/26/2021 18 Please advise. Thank you. Amanda Lezama RN documented in this encounterAvita Health [facility]05-25-2022 Miscellaneous Notes* Telephone Encounter - Lashae Laws LPN - 03/29/2022 12:15 PM EDT Left message medication has been sent to the pharmacy. Lashae Laws LPN * Telephone Encounter - Milly Feliciano APRN.CNP - 03/29/2022 11:56 AM EDT Sent. Milly Feliciano APRN.CNP * Telephone Encounter - Vivienne Newman Ma - 03/29/2022 11:53 AM EDT Patient notified, RX needs sent to [facility]. * Telephone Encounter - Milly Feliciano APRN.CNP - 03/29/2022 11:26 AM EDT I sent 8 tablets, but if she gets a fever, foul smelling stool, vomiting or continuation of diarrhea, she needs to be seen. Thank you Milly Feliciano APRN.CNP * Telephone Encounter - Leslee Oakes LPN - 03/29/2022 9:12 AM EDT Pt states she has had multiple diarrhea stools since yesterday along with a stomachache. Denies fever, vomiting or other symptoms. Pt is asking for an Rx for Immodium AD, states she can not afford to buy it. An appt was offered but pt states she is unable to come today because she has to work & would like the immodium to getthe through work today. Please advise. Leslee Oakes LPN documented in this encounterAvita Health [facility]05-23-2022 Miscellaneous Notes* Telephone Encounter - Vivienne Newman Ma - 03/27/2022 12:52 PM EDT Appointment was made at time of appointment with Milly by our schedulers with the patient. New order and demographics faxed as requested to [facility]. * Telephone Encounter - Milly Feliciano APRN.CNP - 03/27/2022 11:17 AM EDT Please fax as requested. Thank you Milly Feliciano APRN.CNP * Telephone Encounter - Melita Klein LPN - 03/27/2022 10:46 AM EDT Pt calls to report she does not want to see Dr. Watson and doesn't know who made that appt but wants it cancelled. Pt reports she wants a referral sent to Dr. Chan , a surgeon with [facility]. Spoke to Cece with [facility] @ [phone]. Referral, demographics, and reason for appt need faxed to: [phone]. Melita Klein LPN * Telephone Encounter - Vivienne Newman Ma - 03/24/2022 2:42 PM EDT Left message for return call. * Telephone Encounter - Milly Feliciano APRN.CNP - 03/24/2022 1:19 PM EDT Patient already scheduled with Dr. Watson for next week. Please call patient and clarify. Thank you Milly Feliciano APRN.CNP * Telephone Encounter - Belkis Mckeon RN - 03/24/2022 11:56 AM EDT Cece from [facility] calls and states that she just got a call from patient about her appointment today from provider. Cece asking if office notes and referral can be faxed over to . Please review and advise, Belkis Mckeon RN documented in this encounterAvita Health System [facility]05-20-2022 History of Present illness Narrative* Milly Feliciano, GENERATOR SWITCHBOARD OPERATOR.HAND SCRAPER - 03/24/2022 11:05 AM EDT CC: Patient presents with: Recheck: 3 month follow up HPI Vinod Ann is a 47 year old female who presents today for routine follow up. Was last seen 3 months ago and still remains at 180 for drug (meth) and alcohol abuse. Continuing to refrain. Breastinfections have resolved and has see general surgery for rectal bleeding and has colonoscopy scheduled. Also concerned with a left groin abscess. Went to Urgent Care 2 days ago for a left groin abscess that has been there for over a month. Area to left of abscess is draining blood. Was prescribed Doxycycline for 5 days and told to follow up with PCP. Patient states area is tender and that she had surgery on an abscess to same area 3-4 years ago. Denies fever, chills, malaise, shortness of breath, or pain. REVIEW OF SYSTEMS General: no fevers, no chills, no night sweats, no change in appetite, no change in energy and no significant changes in weight Respiratory: no cough, no wheezing, no shortness of breath, no hemoptysis Cardiovascular: no chest pain, no chest pressure, no palpitations and no swelling Skin: See HPI Neurologic: No headache, weakness, numbness, tingling, dizziness, syncope. 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 , did have small relapse 02/15 with of mother Severe episode of recurrent major depressive disorder, without psychotic features (HCC) Kendra Padilla Suicidal ideation PAST SURGICAL HISTORY Procedure Laterality Date BX OF BREAST; INCISIONAL Left 08/29/2019 [facility] COLONOSCOPY FLX DX W/COLLJ SPEC WHEN PFRMD 12/01/2019 Colonoscopy PAST SURGICAL HISTORY OF 03/2010 gall bladder removed PAST SURGICAL HISTORY OF Left wrist surgery when she was 15 years old PAST SURGICAL HISTORY OF 2013 tubal ligation PAST SURGICAL HISTORY OF 02/2022 bilateral cyst removed, [place] ALLERGIES Cephalexin, Fenofibrate, Zoloft [Sertraline Hcl], and Clindamycin MEDICATIONS doxycycline monohydrate 100 mg tablet Take 1 tablet by mouth twice daily for 5 days. loratadine (CLARITIN) 10 mg tablet Take 1 tablet by mouth once daily. guaiFENesin (MUCINEX) 600 mg 12 hr tablet Take 1 tablet by mouth twice daily for 5 days. peg 3350-Electrolytes (GOLYTELY) 236-22.74-6.74 -5.86 gram suspension Refer to printed prep instructions from your provider. meloxicam (MOBIC) 7.5 mg tablet Take 1 tablet by mouth once daily. Take with food. multivitamin tablet Take 1 tablet by mouth once daily. oxybutynin XL (DITROPAN XL) 5 mg 24 hr tablet Take 5 mg by mouth once daily. omeprazole (PRILOSEC) 40 mg capsule Take 1 capsule by mouth once daily. ARIPiprazole (ABILIFY) 20 mg tablet Take 1 tablet by mouth once daily. FAMILY HISTORY Problem Relation Age of Onset Lung Cancer Mother at 63 Osteoporosis Mother Alcohol/Drug Mother alcohol Hypertension Father Alcohol/Drug Father alcohol Aneurysm Father abdominal Prostate Cancer Father Alcohol/Drug Sister drugs other (Aids) Sister drug user Aneurysm Sister head Breast Cancer Paternal Grandmother late 50's or 60's Alcohol/Drug Niece Ovarian cancer Niece diagnosed young Social History Tobacco Use Smoking status: Current Every Day Smoker Packs/day: 2.00 Years: 29.00 Pack years: 58.00 Types: Cigarettes Smokeless tobacco: Never Used Vaping Use Vaping Use: Some days Substances: Nicotine Substance Use Topics Alcohol use: No Comment: quit , small relapse in 02/15 with of mother. Drug use: No PHYSICAL EXAM BP 138/98 Pulse 84 Resp 16 Wt 92.5 kg (204 lb) LMP 08/06/2020 BMI 32.93 kg/m General Appearance: well appearing, in no acute distress, alert Skin: Skin color, texture, turgor normal for age; Eyes: conjunctiva pink and moist, no icterus, sclera white, non-injected Lungs: Lungs clear to auscultation. No wheezing, rhonchi, rales. Heart: RRR without murmur, gallop, or rubs. No ectopy Extremities: No deformities, edema, skin discoloration, clubbing or cyanosis. Good capillary refill. Area to left groin with firmness and tenderness under skin, no fluctuation noted, nor redness or increased warmth. Small open area to left of abscess that when you push firmly will expel a small dropof blood. No pustulant drainage or foul odor. Health maintenance reviewed with patient: LIPID SCREEN due on 08/24/2019 PAP TESTING due on 10/20/2019 HPV TESTING due on 10/20/2019 COVID-19 VACCINE(1) due on 12/26/2022 INFLUENZA(Season Ended) due on 07/06/2022 DEPRESSION SCREENING due on 12/26/2022 MAMMOGRAM due on 01/03/2023 COLORECTAL CANCER SCREENING due on 12/01/2024 DIABETES SCREEN due on 12/26/2024 DTAP,TDAP,TD(3 - Td or Tdap) due on 11/19/2028 ONE PNEUMOVAX PRIOR TO AGE 65 Completed HEPATITIS C SCREENING Completed HIV SCREENING Completed MENINGOCOCCAL CONJUGATE Aged Out DATA REVIEWED: No new labs ASSESSMENT/PLAN: 1. Groin abscess - ICD9: 682.2, ICD10: L02.214 - presentation is concerning for possible tunneling occurring. Will increase doxy to full 10 day dose and instructed to apply warm moist compress to area multiple times throughout the day - CONSULT TO GENERAL SURGERY - Go to ER for increase in drainage, fever, chills, or any other urgent concerns 2. 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HCC) - ICD9: 305.93, ICD10: F19.11 - continue with rehab program - follow up in 6 months 3. Alcohol abuse, in remission - ICD9: 305.03, ICD10: F10.11 As above Prescription instructions reviewed with patient as applicable. Potential red flag symptoms discussed with the patient. Reviewed appropriate action plan to take if red flag symptoms occur. Patient agreeable to treatment plan. Milly Feliciano APRN.CNP documented in this encounter[facility] History of Present illness Narrative* Ruby Summers APRN.CNP - 03/22/2022 5:37 PM EDT Images from the original note were not included. Subjective Patient came in with complaints of cough, congestion, sore throat. Denies any shortness of breath. Said she has a low grade fever. Also said she has a bump on the left side of groin she has had for amonth. Said she has one before I the same spot. denies any other symptoms. Was seen in the ER yesterday for the congestion. They covid tested her and she was negative. The history is provided by the patient. No language arts teacher was used. Cough Review of Systems Constitutional: Positive for fever. Respiratory: Positive for cough. Skin: Negative. Objective Physical Exam Constitutional: Appearance: Normal appearance. HENT: Mouth/Throat: Mouth: Mucous membranes are moist. Pharynx: Oropharynx is clear. Cardiovascular: Rate and Rhythm: Normal rate and regular rhythm. Heart sounds: Normal heart sounds. Pulmonary: Effort: Pulmonary effort is normal. Breath sounds: Normal breath sounds. Skin: General: Skin is warm. Comments: 1 cm palpable area in spot marked above. Not indurated at this time. No discoloration noted. Neurological: Mental Status: She is alert. 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 , did have small relapse 02/15 with of mother Severe episode of recurrent major depressive disorder, without psychotic features ([facility]) Kendra Padilla Suicidal ideation PAST SURGICAL HISTORY Procedure Laterality Date BX OF BREAST; INCISIONAL Left 08/29/2019 [place] [facility]- Benign COLONOSCOPY FLX DX W/COLLJ SPEC WHEN PFRMD 12/01/2019 Colonoscopy PAST SURGICAL HISTORY OF 03/2010 gall bladder removed PAST SURGICAL HISTORY OF Left wrist surgery when she was 15 years old PAST SURGICAL HISTORY OF 2013 tubal ligation PAST SURGICAL HISTORY OF 02/2022 bilateral cyst removed, [place] ALLERGIES Cephalexin, Fenofibrate, Zoloft [Sertraline Hcl], and Clindamycin MEDICATIONS meloxicam (MOBIC) 7.5 mg tablet Take 1 tablet by mouth once daily. Take with food. multivitamin tablet Take 1 tablet by mouth once daily. oxybutynin XL (DITROPAN XL) 5 mg 24 hr tablet Take 5 mg by mouth once daily. omeprazole (PRILOSEC) 40 mg capsule Take 1 capsule by mouth once daily. ARIPiprazole (ABILIFY) 20 mg tablet Take 1 tablet by mouth once daily. doxycycline monohydrate 100 mg tablet Take 1 tablet by mouth twice daily for 5 days. loratadine (CLARITIN) 10 mg tablet Take 1 tablet by mouth once daily. guaiFENesin (MUCINEX) 600 mg 12 hr tablet Take 1 tablet by mouth twice daily for 5 days. peg 3350-Electrolytes (GOLYTELY) 236-22.74-6.74 -5.86 gram suspension Refer to printed prep instructions from your provider. FAMILY HISTORY Problem Relation Age of Onset Lung Cancer Mother at 63 Osteoporosis Mother Alcohol/Drug Mother alcohol Hypertension Father Alcohol/Drug Father alcohol Aneurysm Father abdominal Prostate Cancer Father Alcohol/Drug Sister drugs other (Aids) Sister drug user Aneurysm Sister head Breast Cancer Paternal Grandmother late 50's or 60's Alcohol/Drug Niece Ovarian cancer Niece diagnosed young Social History Tobacco Use Smoking status: Current Every Day Smoker Packs/day: 2.00 Years: 29.00 Pack years: 58.00 Types: Cigarettes Smokeless tobacco: Never Used Vaping Use Vaping Use: Some days Substances: Nicotine Substance Use Topics Alcohol use: No Comment: quit , small relapse in 02/15 with of mother. Drug use: No ASSESSMENT/PLAN: 1. Skin infection - ICD9: 686.9, ICD10: L08.9 Doxycycline bid for 5 days, and OTC medication called in. Patient instructed to follow up with PCP for groin. patient will continue to monitor symptoms. Patient was okay with this care plan. Ruby Summers APRN.LUZ ELENA documented in this encounterAv[facility]-09-[facility]22 Miscellaneous Notes* Telephone Encounter - Heaven Andino - 03/13/2022 11:37 AM EDT 04-05-2022 COLON ASC documented in this encounterAvita [facility]05-03-2022 Miscellaneous Notes* Telephone Encounter - Destiny Mcnulty RN - 03/07/2022 3:07 PM EDT Patient has been identified by name and date of : Yes Pharmacy phones for refill(s): Pending Prescriptions Disp Refills MELOXICAM 7.5 MG TABLET 30 tablet 2 Sig: Take 1 tablet by mouth once daily. Take with food. JOSUE: No Date of last office visit in primary care: 12/26/21 Future visit: 03/24/22 Last 2 Encounter Wt Readings: Date: Wt: 01/03/2022 86.2 kg (190 lb) 12/26/2021 90.7 kg (200 lb) Previous labs/tests for medication: Blood Pressure: BUN (mg/dL) Date Value 12/26/2021 8 Sodium (mmol/L) Date Value 12/26/2021 138 Last 1 Encounter BP Readings: Date: BP: 01/03/2022 128/88 Liver Function: ALT (U/L) Date Value 12/26/2021 19 AST (U/L) Date Value 12/26/2021 18 Please advise. Thank you. Destiny Mcnulty RN documented in this encounterAvita [facility]04-12-2022 Miscellaneous Notes* Telephone Encounter - Tiff Howell RN - 02/14/2022 3:57 PM EDT GI Pre-Procedure Spoke with patient: Yes Confirmed date scheduled and patient report time: Yes, pt. states she needs to reschedule her appointment due to an upcoming surgery. Pt. refused contact number to reschedule, stating she has the number to reschedule. Tiff Howell RN documented in this encounterAvita [facility]03-25-2022 Miscellaneous Notes* Telephone Encounter - Lashae Laws LPN - 01/27/2022 10:38 AM EDT Cece with [facility] with Dr. Matthew Chan, calling for copy of referral, face sheet, testing and office notes. Identified pt with name date of , phone number. Faxed to [phone]. Done. Lashae Laws LPN documented in this encounterAvita [facility]03-23-2022 Miscellaneous Notes* Telephone Encounter - Vivienne Newman Ma - 01/25/2022 9:38 AM EDT Order faxed. * Telephone Encounter - Isatu Nieto MD - 01/24/2022 5:27 PM EDT I ordered the referral please fax * Telephone Encounter - Destiny Mcnulty RN - 01/24/2022 12:46 PM EDT Pt called in and reports she needs a referral sent to Dr Matthew Chan at [facility]. Shestates they are going to remove the breast abscess. The fax # for provider is [phone]. Pt reports she has seen provider about this issues, but I told her I would have provider let her know if she needs to see her before sending referral. Please call and advise. documented in this encounterAvita Health [facility]03-01-2022 NoteHNO ID: [id number] Author: Tina Woodard, DO Service: ? Author Type: Physician Type: Progress Notes Filed: 01/03/2022 4:53 PM Note Text: Tian Woodard D.O. [facility] [address] [place], [place] [id number] SUBJECTIVE Chief Complaint: Patient presents with: Breast Problem: left breast abscess bilateral nipple discharge . HPI Vinod Ann is a 46 year old female presents for follow-up left breast abscess. Patient has two pills left of antibiotic treatment and reports overall improvement after wound opened and drained spontaneously. Pt still has concerns regarding new left nipple inversion. Diagnostic imaging completed today. Pt denies constitutional symptoms to include fever, chills, sweats, body aches. Pt does admit to picking at the breast lesion. Pt continues to smoke despite encouragement to stop and gentle reminder that it will increase her risk for future breast infections/abscess and poor wound healing. Nursing Notes: Ileana Benito LPN 01/03/2022 2:56 PM Signed Patient presents for chronic left breast abscess and chronic bilateral nipple discharge. Patient states that she has been manipulating puss like discharge from both the abscess and the nipples. Denies fever or chills. Patient currently on Bactrim Ileana Benito LPN AGE AT [place] 10 AGE AT FIRST 25 FAMILY HISTORY OF BREAST CANCER Yes (IF YES) NUMBER OF FIRST DEGREE RELATIVES WITH BREAST CANCER 0 PREVIOUS BREAST BIOPSIES Yes (x1) (IF YES) PREVIOUS BREAST BIOPSY WITH ATYPICAL HYPERPLASIA No RACE BRIONNA MODEL RISK 5 YEAR 1.5 BRIONNA MODEL RISK LIFETIME 14.3 Review of Systems Constitutional: Negative for chills, fever, malaise/fatigue and weight loss. Respiratory: Negative for cough and shortness of breath. Cardiovascular: Negative for chest pain. Gastrointestinal: Negative for nausea and vomiting. Skin: Negative for itching and rash. Neurological: Negative for dizziness and headaches. Endo/Heme/Allergies: Does not bruise/bleed easily. Psychiatric/Behavioral: Negative for depression. The patient is not nervous/anxious. 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 , did have small relapse 02/15 with of mother - Severe episode of recurrent major depressive disorder, without psychotic features (HCC) Kendra Padilla - Suicidal ideation PAST SURGICAL HISTORY Procedure Laterality Date - [facility] BRE[facility] DX W/COLLJ SPEC WHEN PFRMD 12/01/2019 Colonoscopy - PAST SURGICAL HISTORY OF 03/2010 gall bladder removed - PAST SURGICAL HISTORY OF Left wrist surgery when she was 15 years old - PAST SURGICAL HISTORY OF 2013 tubal ligation Social History Tobacco Use - Smoking status: Current Every Day Smoker Packs/day: 2.00 Years: 29.00 Pack years: 58.00 Types: Cigarettes - Smokeless tobacco: Never Used Vaping Use - Vaping Use: Never used Substance Use Topics - Alcohol use: No Comment: quit , small relapse in 02/15 with of mother. - Drug use: No FAMILY HISTORY Problem Relation Age of Onset - Lung Cancer Mother at 63 - Osteoporosis Mother - Alcohol/Drug Mother alcohol - Hypertension Father - Alcohol/Drug Father alcohol - Aneurysm Father abdominal - Prostate Cancer Father - Alcohol/Drug Sister drugs - other (Aids) Sister drug user - Aneurysm Sister head - Breast Cancer Paternal Grandmother late 50's or 60's - Alcohol/Drug Niece - Ovarian cancer Niece diagnosed young The ROS, medical, surgical, family, and social history were reviewed by Tina Woodard DO ALLERGIES Allergen Reactions - Cephalexin Hives, Diarrhea - Fenofibrate Other: See Comments Hives with GI upset (emesis) - Zoloft [Sertraline * Hives, Diarrhea - Clindamycin Hives States has take since with no issue 08/06/20. Elba Broussard MA Current Outpatient Medications Medication Sig - meloxicam (MOBIC) 7.5 mg tablet Take 1 tablet by mouth once daily. Take with food. - multivitamin tablet Take 1 tablet by mouth once daily. - oxybutynin XL (DITROPAN XL) 5 mg 24 hr tablet Take 5 mg by mouth once daily. - omeprazole (PRILOSEC) 40 mg capsule Take 1 capsule by mouth once daily. - ARIPiprazole (ABILIFY) 20 mg tablet Take 1 tablet by mouth once daily. No current facility-administered medications for this visit. OBJECTIVE BP 128/88 Pulse 80 Ht 167.6 cm (5' 6) Wt 86.2 kg (190 lb) LMP 08/06/2020 BMI 30.67 kg/m? BMI 30.67 kg/(m2) Physical Exam Vitals and nursing note revie (more content not included)...[facility]03-01-2022 NoteHNO ID: [id number] Author: RT Natalie(R) Service: ? Author Type: Technologist Type: Progress Notes Filed: 01/03/2022 1:38 PM Note Text: Radiology Service Progress Note PATIENT NAME: Vinod Ann DATE OF SERVICE: January 03, 2022 TIME: 12:54 PM PATIENT IDENTITY VERIFICATION COMPLETED USING TWO (2) IDENTIFIERS: Name and Date of confirmed by patient verbally. FALL SCREENING: Has the patient had 2 falls in the last year or 1 fall with injury or currently using an Ambulatory Assistive Device (Walker, Cane, Wheelchair, Crutches, etc.)? No PATIENT GENDER DATA: Female. status: : No status: NO. PATIENT RELEVANT IMPLANT DATA REVIEWED: Not Applicable RADIOLOGY DEPARTMENT: Mammography PERIPHERAL IV DATA: Not applicable SIGNED BY: RT Natalie(R) January 03, 2022 12:54 [facility]02-01-2022 NoteHNO ID: [id number] Author: Tina Woodard, DO Service: ? Author Type: Physician Type: Progress Notes Filed: 12/06/2021 2:24 PM Note Text: Tina Woodard D.O. [facility] [address] [place] [id number] SUBJECTIVE Chief Complaint: Patient presents with: Consult: Abnormal mammogram . HPI Vinod Ann is a 46 year old female presents for evaluation of left breast cystic mass upper inner quadrant near the areola and complaints of nipple discharge, referral from general surgery in [place]. Patient describes her discharge as yellowish and green in color from both nipples for 2-1/2 years. Patient has an inflamed area on the left breast 10:00 which was larger before but she just finished a course of Bactrim for 10 days and reports that the area has improved. However she reports new onset nipple inversion and pain behind the areola on the left breast for about a month. Review of external imaging from September 2021 (mammogram and ultrasound of left breast) with no ultrasound correlate to palpable left subareolar mass or left nipple discharge. Patient referred here by general surgery for evaluation of bloody nipple discharge from the left breast. Per review of chart patient has a history of breast abscesses which have been incised and drained in the past. Patient is in rehab for drugs and alcohol. She is seen today with her peer from rehab. Nursing Notes: Kendra Osborne MA 12/06/2021 1:44 PM Signed Patient is here today due to left breast cyst behind nipple. Patient stated when she would press on nipple, blood and discharge would come out. Patient stated now the area is hard. She was last seen by Dr. Sandoval 08-06-2020. Kendra Osborne MA AGE AT [place] 10 AGE AT FIRST 25 FAMILY HISTORY OF BREAST CANCER Yes (IF YES) NUMBER OF FIRST DEGREE RELATIVES WITH BREAST CANCER 0 PREVIOUS BREAST BIOPSIES Yes (x1) (IF YES) PREVIOUS BREAST BIOPSY WITH ATYPICAL HYPERPLASIA No RACE BRIONNA MODEL RISK 5 YEAR 1.5 BRIONNA MODEL RISK LIFETIME 13.4 TYRER CUZICK SCORE 14.3 Review of Systems Constitutional: Negative for chills, fever, malaise/fatigue and weight loss. Respiratory: Negative for cough and shortness of breath. Cardiovascular: Negative for chest pain. Gastrointestinal: Negative for nausea and vomiting. Skin: Negative for itching and rash. Painful red mass left breast upper inner quadrant near areola with erythema of the breast and associated nipple discharge Neurological: Negative for dizziness and headaches. Endo/Heme/Allergies: Does not bruise/bleed easily. Psychiatric/Behavioral: Negative for depression. The patient is not nervous/anxious. 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 , did have small relapse 02/15 with of mother - Severe episode of recurrent major depressive disorder, without psychotic features (HCC) Kendra Padilla - Suicidal ideation PAST SURGICAL HISTORY Procedure Laterality Date - BX OF BREAST; INCISIONAL Left 08/29/2019 [facility] [facility]- Benign - COLONOSCOPY FLX DX W/COLLJ SPEC WHEN PFRMD 12/01/2019 Colonoscopy - PAST SURGICAL HISTORY OF 03/2010 gall bladder removed - PAST SURGICAL HISTORY OF Left wrist surgery when she was 15 years old - PAST SURGICAL HISTORY OF 2013 tubal ligation Social History Tobacco Use - Smoking status: Current Every Day Smoker Packs/day: 2.00 Years: 29.00 Pack years: 58.00 Types: Cigarettes - Smokeless tobacco: Never Used Vaping Use - Vaping Use: Never used Substance Use Topics - Alcohol use: No Comment: quit , small relapse in 02/15 with of mother. - Drug use: No FAMILY HISTORY Problem Relation Age of Onset - Lung Cancer Mother at 63 - Osteoporosis Mother - Alcohol/Drug Mother alcohol - Hypertension Father - Alcohol/Drug Father alcohol - Aneurysm Father abdominal - Prostate Cancer Father - Alcohol/Drug Sister drugs - other (Aids) Sister drug user - Aneurysm Sister head - Breast Cancer Paternal Grandmother late 50's or 60's - Alcohol/Drug Niece - Ovarian cancer Niece diagnosed young The ROS, medical, surgical, family, and social history were reviewed by iTna Woodard DO ALLERGIES Allergen Reactions - Cephalexin Hives, Diarrhea - Fenofibrate Other: See Comments Hives with GI upset (emesis) - Zoloft [Sertraline * Hives, Diarrhea - Clindamycin Hives States has take since with no issue 08/06/20. Elba Broussard MA Current Outpatient Medications Medication Sig - multivitamin tablet Take 1 tablet by mouth onc (more content not included)... [facility]11-22-2021 History of Present illness Narrative* Gifty Rodriguez RT(R) - 09/26/2021 8:50 AM EST Radiology Service Progress Note PATIENT NAME: Vinod Ann DATE OF SERVICE: September 26, 2021 TIME: 8:52 AM PATIENT IDENTITY VERIFICATION COMPLETED USING TWO (2) IDENTIFIERS: Name and Date of confirmedby patient verbally. FALL SCREENING: Has the patient had 2 falls in the last year or 1 fall with injury or currently using an Ambulatory Assistive Device (Walker, Cane, Wheelchair, Crutches, etc.)? No PATIENT GENDER DATA: Female. status: : No status: NO. PATIENT RELEVANT IMPLANT DATA REVIEWED: Not Applicable RADIOLOGY DEPARTMENT: General X-ray: Exam(s) Completed: Spine X-Ray(s): Lumbar AP / LAT / L5-S1 PERIPHERAL IV DATA: Not applicable SIGNED BY: RT Raf(R) September 26, 2021 8:52 AM documented in [facility] encounterGood [facility]* Clinical Note Date No Information [facility]csDis[facility]* Clinical Note Date No Information [facility]csEvaluation [facility]* Diagnosis Breast abscess- Primary Inflammatory disease of breast [facility] noteNo assessment information availableWMount Carmel [facility] System Work Phone: Evaluation note* Diagnosis Skin infection- Primary Unspecified local infection of skin and subcutaneous tissue [facility]* Diagnosis Groin abscess- Primary Cellulitis and abscess of trunk 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HCC) Other, mixed, or unspecified nondependent drug abuse, in remission Alcohol abuse, in remission Nondependent alcohol abuse, in remission [facility]* Diagnosis Encounter for screening for human papillomavirus (HPV)- Primary Special screening examination for human papillomavirus (HPV) Encounter for gynecological examination (general) (routine) without abnormal findings Screening for cervical cancer Screening for malignant neoplasm of the cervix Screen for STD (sexually transmitted disease) Screening examination for venereal disease [facility]* Diagnosis Nipple discharge- Primary Other sign and symptom in breast Mixed hyperlipidemia Vitamin D deficiency Unspecified vitamin D deficiency documented [facility]* Diagnosis Rectal bleeding- Primary Hemorrhage of rectum and anus documented [facility] this [facility]* Diagnosis Breast abscess- Primary Inflammatory disease of breast documented [facility]* Diagnosis Acute cough- Primary Fever, unspecified fever cause Sore throat Acute pharyngitis Fatigue, unspecified type Groin abscess Cellulitis and abscess of trunk [facility] Rectal bleeding Hemorrhage of rectum and anus [facility]* Diagnosis Vaginal burning- Primary Other specified symptom associated with female genital organs Screen for STD (sexually transmitted disease) Screening examination for venereal disease [facility]* Diagnosis Vaginal yeast infection- Primary Candidiasis of vulva and vagina [facility]* Diagnosis Functional dyspepsia Dyspepsia and other specified disorders of function of stomach [facility]* Diagnosis Rectal bleeding Hemorrhage of rectum and anus [facility]* Diagnosis Breast cyst, left- Primary Viral bronchitis Acute bronchitis [facility]* Diagnosis Functional dyspepsia Dyspepsia and other specified disorders of function of stomach [facility]* Diagnosis Breast abscess- Primary Inflammatory disease of breast 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HCC) Other, mixed, or unspecified nondependent drug abuse, in remission Gastroesophageal reflux disease without esophagitis Esophageal reflux Mood disorder (HCC) Unspecified episodic mood disorder Annual physical exam Routine general medical examination at a health care facility Vitamin D deficiency Unspecified vitamin D deficiency [facility]* Diagnosis Screen for STD (sexually transmitted disease)- Primary Screening examination for venereal disease [facility]* Diagnosis Moderate episode of recurrent major depressive disorder (HCC)- Primary Breast discharge Other sign and symptom in breast Breast abscess Inflammatory disease of breast Substance abuse (HCC) Other, mixed, or unspecified nondependent drug abuse, unspecified Excessive weight gain Abnormal weight gain [facility]* Diagnosis Bilateral carpal tunnel syndrome- Primary Carpal tunnel syndrome Swelling of hand, unspecified laterality [facility]* Diagnosis Numbness and tingling in both hands- Primary [facility]* Diagnosis Vitamin D deficiency Unspecified vitamin D deficiency Functional dyspepsia Dyspepsia and other specified disorders of function of stomach [facility]* Diagnosis Breast abscess- Primary Inflammatory disease of breast Bloody discharge from left nipple Other sign and symptom in breast documented in this encounter [facility] [facility] Diagnosis 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HCC)- Primary Other, mixed, or unspecified nondependent drug abuse, in remission Alcohol abuse, in remission Nondependent alcohol abuse, in remission Hypertension, unspecified type Wheezing Thrush Candidiasis of mouth Prediabetes Other abnormal glucose Breast abscess Inflammatory disease of breast Mixed hyperlipidemia [facility] Diagnosis Screening for colon cancer- Primary Special screening for malignant neoplasms, colon Rectal bleeding Hemorrhage of rectum and anus documented [facility]* Diagnosis Depression, unspecified depression type- Primary [facility] Diagnosis Gangrene of toe of right foot ([facility]/HCC)- Primary PAD (peripheral artery disease) ([facility]) Unspecified peripheral vascular disease Ischemic pain of foot, right [facility] Diagnosis General weakness- Primary Other malaise and fatigue Cellulitis, unspecified cellulitis site Mental health problem Unspecified mental or behavioral problem History of substance abuse (HCC) Other, mixed, or unspecified nondependent drug abuse, unspecified 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, left (HCC) Embolism and thrombosis of arteries of lower extremity Palpitations Cellulitis Cellulitis and abscess of unspecified site 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 artery occlusion, right (HCC) Embolism and thrombosis of arteries of lower extremity Tibial artery occlusion, left (HCC) Embolism and thrombosis of arteries of lower extremity Tobacco dependence Tobacco use disorder History of substance abuse (HCC) Other, mixed, or unspecified nondependent drug abuse, unspecified 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) Aortic mural thrombus (HCC) Embolism and thrombosis of thoracic aorta Primary hypertension Unspecified essential hypertension [facility] Type Assessment Date No Information [facility] PAD (peripheral artery disease) ([facility])- [facility] Abnormal finding on breast imaging- Primary Other (abnormal) findings on radiological examination of breast [facility] Diagnosis Abnormal finding on breast imaging- Primary Other (abnormal) findings on radiological examination of breast [facility] Diagnosis OUTSIDE CORRESPONDENCE for use in designating purpose of abstract encounters [facility] Diagnosis Unspecified superficial injuries of breast, unspecified breast, initial encounter documented in this encounter [facility]* Diagnosis RERE (obstructive sleep apnea)- Primary Obstructive sleep apnea (adult) (pediatric) documented in this encounter [facility] note* Diagnosis Abnormal finding on breast imaging- Primary Other (abnormal) findings on radiological examination of breast documented in this encounter [facility] note* Diagnosis Breast abscess- Primary Inflammatory disease of breast Subareolar mass of left breast [facility]* Diagnosis Breast disorder- Primary Unspecified breast disorder documented [facility]* Diagnosis Breast disorder Unspecified breast disorder documented [facility]* Diagnosis Breast disorder Unspecified breast disorder [facility] Diagnosis Vocal fold leukoplakia- Primary Other diseases of vocal cords documented [facility]* Diagnosis Essential hypertension- Primary Unspecified essential hypertension Thrush Candidiasis of mouth Cellulitis of other specified site RERE (obstructive sleep apnea) Obstructive sleep apnea (adult) (pediatric) Methamphetamine abuse in remission Nondependent amphetamine or related acting sympathomimetic abuse, in remission Insomnia due to other mental disorder Current every day smoker Tobacco use disorder Alcohol abuse, in remission Nondependent alcohol abuse, in remission Night terror Sleep arousal disorder Vitamin D deficiency Unspecified vitamin D deficiency Incontinence in female Lesion of true vocal cord Other diseases of vocal cords 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 PAD (peripheral artery disease) Unspecified disorders of arteries and arterioles [facility] Breast abscess- Primary Inflammatory disease of breast Breast abscess- Primary Inflammatory disease of breast Nipple discharge Other sign and symptom in breast Mass of upper inner quadrant of left breast Tobacco use disorder History of breast abscess- Primary Personal history of diseases of skin and subcutaneous tissue Breast abscess Inflammatory disease of breast Tobacco use disorder Wheezing [facility] Diagnosis Breast abscess- Primary Inflammatory disease of breast Breast abscess- Primary Inflammatory disease of breast Nipple discharge Other sign and symptom in breast Mass of upper inner quadrant of left breast Tobacco use disorder History of breast abscess- Primary Personal history of diseases of skin and subcutaneous tissue Breast abscess Inflammatory disease of breast Tobacco use disorder Numbness and tingling in both hands [facility]* Diagnosis Dysphonia- Primary Vocal cord leukoplakia Other diseases of vocal cords Allergic rhinitis due to dust Allergic rhinitis due to other allergen Deviated nasal septum Nasal congestion Other diseases of nasal cavity and sinuses Nasal turbinate hypertrophy Hypertrophy of nasal turbinates Dysfunction of left eustachian tube Dysfunction of Eustachian tube [facility] Breast abscess- Primary Inflammatory disease of breast Chronic midline low back pain with bilateral sciatica Breast abscess- Primary Inflammatory disease of breast Nipple discharge Other sign and symptom in breast Mass of upper inner quadrant of left breast Tobacco use disorder History of breast abscess- Primary Personal history of diseases of skin and subcutaneous tissue Breast abscess Inflammatory disease of breast Tobacco use disorder documented [facility]* Diagnosis Bipolar affective disorder, remission status unspecified (HCC)- Primary documented in this encounter [facility]* Diagnosis PAD (peripheral artery disease)- Primary Unspecified disorders of arteries and arterioles Essential hypertension Unspecified essential hypertension Palpitations Tachycardia Tachycardia, unspecified Mixed hyperlipidemia Medically noncompliant Personal history of noncompliance with medical treatment, presenting hazards to health Gastroesophageal reflux disease, unspecified whether esophagitis present Vitamin D deficiency Unspecified vitamin D deficiency Night terror Sleep arousal disorder [facility] Diagnosis Breast abscess- Primary Inflammatory disease of breast Breast abscess- Primary Inflammatory disease of breast Nipple discharge Other sign and symptom in breast Mass of upper inner quadrant of left breast Tobacco use disorder History of breast abscess- Primary Personal history of diseases of skin and subcutaneous tissue Breast abscess Inflammatory disease of breast Tobacco use disorder Vocal fold leukoplakia- Primary Other diseases of vocal cords LPRD (laryngopharyngeal reflux disease) Other diseases of larynx Candidal stomatitis Candidiasis of mouth Smoking Tobacco use disorder Dysphonia Nasopharyngeal mass Unspecified disease of pharynx [facility]* Diagnosis Breast abscess- Primary Inflammatory disease of breast Breast abscess Inflammatory disease of breast [facility] Breast abscess- Primary Inflammatory disease of breast Breast abscess- Primary Inflammatory disease of breast Nipple discharge Other sign and symptom in breast Mass of upper inner quadrant of left breast Tobacco use disorder History of breast abscess- Primary Personal history of diseases of skin and subcutaneous tissue Breast abscess Inflammatory disease of breast Tobacco use disorder Vocal fold leukoplakia- Primary Other diseases of vocal cords LPRD (laryngopharyngeal reflux disease) Other diseases of larynx Smoking Tobacco use disorder Dysphonia Nasopharyngeal mass Unspecified disease of pharynx Disorder of left eustachian tube Unspecified Eustachian tube disorder TMJ disorder Tongue pain Glossodynia [facility] Diagnosis Abscess of female breast- Primary Inflammatory disease of breast Preop testing- Primary Preoperative examination, unspecified Breast abscess Inflammatory disease of breast [facility] Diagnosis Abscess of right genital labia- Primary Breast abscess Inflammatory disease of breast [facility] Diagnosis Bursitis of left elbow, unspecified bursa- Primary Breast abscess Inflammatory disease of breast [facility] Diagnosis Breast abscess- Primary Inflammatory disease of breast Breast abscess Inflammatory disease of breast [facility]* Diagnosis Labial abscess- Primary Sally rash of groin [facility] Preop testing Preoperative examination, unspecified Breast abscess Inflammatory disease of breast [facility]* Diagnosis Sleep-disordered breathing- Primary Other sleep disturbances Dental decay Unspecified dental caries Peripheral arterial disease (HCC) documented in this encounter [email or web address] Work Phone: Evaluation note* Diagnosis Bipolar affective disorder, remission status unspecified (HCC) [facility] Diagnosis Abscess of left breast- Primary Inflammatory disease of breast Nonhealing surgical wound, sequela [facility]* Diagnosis Anxiety- Primary Anxiety state, unspecified [facility] Diagnosis Breast abscess- Primary Inflammatory disease of breast [facility] Diagnosis Bipolar affective disorder, remission status unspecified (HCC)- Primary Anxiety Anxiety state, unspecified [facility] Diagnosis Breast abscess- Primary Inflammatory disease of breast Preop testing- Primary Preoperative examination, unspecified Breast abscess Inflammatory disease of breast [facility] Diagnosis Breast abscess- Primary Inflammatory disease of breast Preop testing Preoperative examination, unspecified [facility] Diagnosis Post-operative state- Primary Other postprocedural status [facility]* Diagnosis Breast abscess- Primary Inflammatory disease of breast [facility] Diagnosis Visit for wound check- Primary Encounter for other specified aftercare [facility] Diagnosis Breast abscess- Primary Inflammatory disease of breast [facility] Diagnosis Essential hypertension- Primary Unspecified essential hypertension Gastroesophageal reflux disease, unspecified whether esophagitis present Methamphetamine abuse in remission Nondependent amphetamine or related acting sympathomimetic abuse, in remission Bipolar 1 disorder Bipolar I disorder, most recent episode (or current) unspecified Medically noncompliant Personal history of noncompliance with medical treatment, presenting hazards to health Left breast abscess Inflammatory disease of breast [facility]* Diagnosis Breast abscess- Primary Inflammatory disease of breast Breast abscess- Primary Inflammatory disease of breast Nipple discharge Other sign and symptom in breast Mass of upper inner quadrant of left breast Tobacco use disorder History of breast abscess- Primary Personal history of diseases of skin and subcutaneous tissue Breast abscess Inflammatory disease of breast Tobacco use disorder Pain- Primary Generalized pain [facility]* Diagnosis Bipolar affective disorder, remission status unspecified (HCC) Anxiety Anxiety state, unspecified documented in this encounter [facility] note* Diagnosis Breast abscess- Primary Inflammatory disease of breast Breast abscess- Primary Inflammatory disease of breast Nipple discharge Other sign and symptom in breast Mass of upper inner quadrant of left breast Tobacco use disorder History of breast abscess- Primary Personal history of diseases of skin and subcutaneous tissue Breast abscess Inflammatory disease of breast Tobacco use disorder Breast abscess- Primary Inflammatory disease of breast [facility]* Diagnosis Breast abscess- Primary Inflammatory disease of breast Breast abscess- Primary Inflammatory disease of breast Nipple discharge Other sign and symptom in breast Mass of upper inner quadrant of left breast Tobacco use disorder History of breast abscess- Primary Personal history of diseases of skin and subcutaneous tissue Breast abscess Inflammatory disease of breast Tobacco use disorder Breast abscess- Primary Inflammatory disease of breast History of breast abscess Personal history of diseases of skin and subcutaneous tissue [facility]* Diagnosis Breast abscess- Primary Inflammatory disease of breast Breast abscess- Primary Inflammatory disease of breast Nipple discharge Other sign and symptom in breast Mass of upper inner quadrant of left breast Tobacco use disorder History of breast abscess- Primary Personal history of diseases of skin and subcutaneous tissue Breast abscess Inflammatory disease of breast Tobacco use disorder 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[facility])- Primary Other, mixed, or unspecified nondependent drug abuse, in remission PAD (peripheral artery disease) ([facility]) Peripheral vascular disease, unspecified Vitamin B12 deficiency Other B-complex deficiencies Vitamin D deficiency Unspecified vitamin D deficiency Weight gain Abnormal weight gain Fatigue, unspecified type Iron deficiency Iron deficiency anemia, unspecified Prediabetes Other abnormal glucose Essential hypertension Unspecified essential hypertension Hyperlipidemia, unspecified hyperlipidemia type [facility] Diagnosis Breast abscess- Primary Inflammatory disease of breast Breast abscess- Primary Inflammatory disease of breast Nipple discharge Other sign and symptom in breast Mass of upper inner quadrant of left breast Tobacco use disorder History of breast abscess- Primary Personal history of diseases of skin and subcutaneous tissue Breast abscess Inflammatory disease of breast Tobacco use disorder History of breast abscess- Primary Personal history of diseases of skin and subcutaneous tissue [facility]* Diagnosis Breast abscess- Primary Inflammatory disease of breast Breast abscess- Primary Inflammatory disease of breast Nipple discharge Other sign and symptom in breast Mass of upper inner quadrant of left breast Tobacco use disorder History of breast abscess- Primary Personal history of diseases of skin and subcutaneous tissue Breast abscess Inflammatory disease of breast Tobacco use disorder Tailor's bunion of both feet- Primary Diminished pulses in lower extremity Other symptoms involving cardiovascular system Onychodystrophy Other specified disease of nail [facility] Diagnosis Breast abscess- Primary Inflammatory disease of breast Breast abscess- Primary Inflammatory disease of breast Nipple discharge Other sign and symptom in breast Mass of upper inner quadrant of left breast Tobacco use disorder History of breast abscess- Primary Personal history of diseases of skin and subcutaneous tissue Breast abscess Inflammatory disease of breast Tobacco use disorder Pain Generalized pain [facility] Diagnosis Anxiety Anxiety state, unspecified [facility] Diagnosis Bipolar affective disorder, remission status unspecified ([facility]) [facility] Diagnosis Breast abscess- Primary Inflammatory disease of breast Breast abscess- Primary Inflammatory disease of breast Nipple discharge Other sign and symptom in breast Mass of upper inner quadrant of left breast Tobacco use disorder History of breast abscess- Primary Personal history of diseases of skin and subcutaneous tissue Breast abscess Inflammatory disease of breast Tobacco use disorder Tobacco abuse Tobacco use disorder History of breast abscess- Primary Personal history of diseases of skin and subcutaneous tissue [facility] Diagnosis Breast abscess- Primary Inflammatory disease of breast Breast abscess- Primary Inflammatory disease of breast Nipple discharge Other sign and symptom in breast Mass of upper inner quadrant of left breast Tobacco use disorder History of breast abscess- Primary Personal history of diseases of skin and subcutaneous tissue Breast abscess Inflammatory disease of breast Tobacco use disorder Vitamin D deficiency Unspecified vitamin D deficiency [facility]* Diagnosis Breast abscess- Primary Inflammatory disease of breast Breast abscess- Primary Inflammatory disease of breast Nipple discharge Other sign and symptom in breast Mass of upper inner quadrant of left breast Tobacco use disorder History of breast abscess- Primary Personal history of diseases of skin and subcutaneous tissue Breast abscess Inflammatory disease of breast Tobacco use disorder Breast abscess- Primary Inflammatory disease of breast [facility]* Diagnosis Breast abscess- Primary Inflammatory disease of breast Breast abscess- Primary Inflammatory disease of breast Nipple discharge Other sign and symptom in breast Mass of upper inner quadrant of left breast Tobacco use disorder History of breast abscess- Primary Personal history of diseases of skin and subcutaneous tissue Breast abscess Inflammatory disease of breast Tobacco use disorder Encounter for gynecological examination (general) (routine) without abnormal findings- Primary Encounter for screening mammogram for breast cancer Mixed stress and urge urinary incontinence Mixed incontinence urge and stress (male)(female) Urinary incontinence, nocturnal enuresis Nocturnal enuresis Sebaceous cyst [facility]* Diagnosis Breast abscess- Primary Inflammatory disease of breast Breast abscess- Primary Inflammatory disease of breast Nipple discharge Other sign and symptom in breast Mass of upper inner quadrant of left breast Tobacco use disorder History of breast abscess- Primary Personal history of diseases of skin and subcutaneous tissue Breast abscess Inflammatory disease of breast Tobacco use disorder Breast abscess- Primary Inflammatory disease of breast [facility]* Diagnosis Breast abscess- Primary Inflammatory disease of breast Breast abscess- Primary Inflammatory disease of breast Nipple discharge Other sign and symptom in breast Mass of upper inner quadrant of left breast Tobacco use disorder History of breast abscess- Primary Personal history of diseases of skin and subcutaneous tissue Breast abscess Inflammatory disease of breast Tobacco use disorder Screen for colon cancer- Primary Special screening for malignant neoplasms, colon History of colonic polyps Personal history of colonic polyps Gastroesophageal reflux disease, unspecified whether esophagitis present Nausea Nausea alone Change in bowel movement Other symptoms involving digestive system [facility] Diagnosis Breast abscess- Primary Inflammatory disease of breast Breast abscess- Primary Inflammatory disease of breast Nipple discharge Other sign and symptom in breast Mass of upper inner quadrant of left breast Tobacco use disorder History of breast abscess- Primary Personal history of diseases of skin and subcutaneous tissue Breast abscess Inflammatory disease of breast Tobacco use disorder Medication management Encounter for long-term (current) use of other medications [facility] Diagnosis Breast abscess- Primary Inflammatory disease of breast Breast abscess- Primary Inflammatory disease of breast Nipple discharge Other sign and symptom in breast Mass of upper inner quadrant of left breast Tobacco use disorder History of breast abscess- Primary Personal history of diseases of skin and subcutaneous tissue Breast abscess Inflammatory disease of breast Tobacco use disorder Infected sebaceous cyst Sebaceous cyst Periductal 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 Encounter for long-term (current) use of antiplatelets/antithrombotics Smokes cigarettes Tobacco use disorder [facility] Diagnosis Breast abscess- Primary Inflammatory disease of breast Breast abscess- Primary Inflammatory disease of breast Nipple discharge Other sign and symptom in breast Mass of upper inner quadrant of left breast Tobacco use disorder History of breast abscess- Primary Personal history of diseases of skin and subcutaneous tissue Breast abscess Inflammatory disease of breast Tobacco use disorder Peripheral arterial disease- Primary Peripheral vascular disease, unspecified [facility] Diagnosis Breast abscess- Primary Inflammatory disease of breast Breast abscess- Primary Inflammatory disease of breast Nipple discharge Other sign and symptom in breast Mass of upper inner quadrant of left breast Tobacco use disorder History of breast abscess- Primary Personal history of diseases of skin and subcutaneous tissue Breast abscess Inflammatory disease of breast Tobacco use disorder Functional dyspepsia Dyspepsia and other specified disorders of function of stomach [facility] Diagnosis Breast abscess- Primary Inflammatory disease of breast Breast abscess- Primary Inflammatory disease of breast Nipple discharge Other sign and symptom in breast Mass of upper inner quadrant of left breast Tobacco use disorder History of breast abscess- Primary Personal history of diseases of skin and subcutaneous tissue Breast abscess Inflammatory disease of breast Tobacco use disorder Left sided sciatica- Primary Sciatica Lumbar pain Lumbago [facility] Diagnosis Breast abscess- Primary Inflammatory disease of breast Breast abscess- Primary Inflammatory disease of breast Nipple discharge Other sign and symptom in breast Mass of upper inner quadrant of left breast Tobacco use disorder History of breast abscess- Primary Personal history of diseases of skin and subcutaneous tissue Breast abscess Inflammatory disease of breast Tobacco use disorder Encounter for screening for lung cancer- Primary Tobacco abuse Tobacco use disorder [facility] Breast abscess- Primary Inflammatory disease of breast Breast abscess- Primary Inflammatory disease of breast Nipple discharge Other sign and symptom in breast Mass of upper inner quadrant of left breast Tobacco use disorder History of breast abscess- Primary Personal history of diseases of skin and subcutaneous tissue Breast abscess Inflammatory disease of breast Tobacco use disorder Lumbar pain Lumbago [facility] Clinical Note Date No Information [facility] Discharge instructions* Attachments The following attachments cannot be sent through Care Everywhere. * Depression: Self Care (Nepalese) * Depression: [facility] (Nepalese) [facility] Attachments The following attachments cannot be sent through Care Everywhere. * Wound Check (Nepalese) [facility] Attachments The following attachments cannot be sent through Care Everywhere. * Abscess: Skin (Nepalese) [facility]* Attachments The following attachments cannot be sent through Care Everywhere. * Elbow Bursitis (Nepalese) [facility]* Clinical Note Date No Information [facility] Outpatient Procedure (Routine) - Authorized Specialty Diagnoses / Procedures Referred By Sukh waldrop Referred To Contact [facility] Diagnoses Rectal bleeding Procedures COLONOSCOPY DIAGNOSTIC COLONOSCOPY FLX DX W/COLLJ SPEC WHEN Debra Becerra MD [address] [place] [address] [facility] [place] [address] [place] [address] Referral ID Status Reason Start Date Expiration Date Visits Requested Visits Authorized [id number] Authorized Auto-Generat ed Referral 07/03/2022 07/03/2023 1 1 [facility] for referral (narrative)* Outpatient Procedure (Routine) - Pending Review Specialty Diagnoses / Procedures Referred By Contac t Referred To Contact [facility] Diagnoses Numbness and tingling in both hands Procedures EMG(NEURO/NI) NERVE CONDUCTION STUDIES 9-10 STUDIES Milly Feliciano APRN.HAND SCRAPER [address] [place] [address] [facility] [place] [address] [place] [address] Referral ID Status Reason Start Date Expiration Date Visits Requested Visits Authorized [id number] Pending Review Auto-Generat ed Referral 03/30/2023 03/30/2024 1 1 [facility] for referral (narrative)* Diagnostic Procedure Only (Routine) - Authorized Specialty Diagnoses / Procedures Referred By Sukh t Referred To Contact [facility] Diagnoses Breast abscess Bloody discharge from left nipple Procedures US BREAST LTD LEFT US BREAST UNI REAL TIME WITH IMAGE LIMITED Franco Roblero MD [address] [facility] [place] [address] [facility] [address] [place] [address] Referral ID Status Reason Start Date Expiration Date Visits Requested Visits Authorized [id number] Authorized Auto-Generat ed Referral 3 09/14/2024 1 1 * Diagnostic Procedure Only (Routine) - Authorized Specialty Diagnoses / Procedures Referred By Sukh t Referred To Contact [facility] Diagnoses Breast abscess Bloody discharge from left nipple Procedures US BREAST LTD RIGHT US BREAST UNI REAL TIME WITH IMAGE LIMITED Franco Roblero MD [address] [facility] [place] [address] [facility] [address] [place] [address] Referral ID Status Reason Start Date Expiration Date Visits Requested Visits Authorized [id number] Authorized Auto-Generat ed Referral 3 09/14/2024 1 1 * Diagnostic Procedure Only (Routine) - Pending Review Specialty Diagnoses / Procedures Referred By Jessicaac t Referred To Contact [facility] Diagnoses Breast abscess Bloody discharge from left nipple Procedures JAE DIAGNOSTIC BILATERAL DIAGNOSTIC MAMMOGRAPHY COMPUTER-AIDED DETCJ BI Franco Roblero MD [address] [place] [address] [facility] [address] [place] [address] Referral ID Status Reason Start Date Expiration Date Visits Requested Visits Authorized [id number] Pending Review Auto-Generat ed Referral 3 09/14/2024 1 1 [facility] for referral (narrative)* Outpatient Procedure (Routine) - Closed Specialty Diagnoses / Procedures Referred By Cox Bransoncoty t Referred To Contact [facility] Diagnoses Rectal bleeding Procedures COLONOSCOPY DIAGNOSTIC COLONOSCOPY FLX DX W/COLLJ SPEC WHEN Debra Becerra MD [address] [place] [address] [facility] [place] [address] [place] [address] Referral ID Status Reason Start Date Expiration Date V isits Requested Visits Authorized [id number] Closed Auto-Generate d Referral 07/03/2022 07/03/2023 1 1 [facility] for referral (narrative)* (Routine) - Open Specialty Diagnoses / Procedures Referred By Cox Bransonac t Referred To Contact Diagnoses Palpitations Procedures Fpc Continuous Cardiac Event Monitor Elizabeth Orozco PA [address] [facility] [place] [address] Referral ID Status Reason Start Date Expiration Date Visits Re quested Visits Authorized [id number] Open 12/14/2023 12/13/2024 1 1 [facility] for referral (narrative)* Reason For Referral No Information [facility] for referral (narrative)* Diagnostic Procedure Only (Routine) - Pending Review Specialty Diagnoses / Procedures Referred By Sukh t Referred To Contact [facility] Diagnoses Breast abscess Subareolar mass of left breast Procedures US BIOPSY BREAST LEFT BX BREAST W/DEVICE 1ST LESION ULTRASOUND Franco Watts MD [address] [address] [facility] [address] [place] [address] Referral ID Status Reason Start Date Expiration Date Visits Requested Visits Authorized [id number] Pending Review Auto-Generat ed Referral 04/10/2024 05/10/2025 1 1 [facility] for referral (narrative)* Diagnostic Procedure Only (Routine) - Pending Review Specialty Diagnoses / Procedures Referred By Sukh waldrop Referred To Contact [facility] Diagnoses Breast disorder Procedures US BIOPSY AXILLA LEFT BIOPSY MUSCLE PERCUTANEOUS NEEDLE BX/EXC LYMPH NODE NEEDLE SUPERFICIAL Minerva Hernadez MD [address] [place] [id number] [facility] [address] [place] [address] Referral ID Status Reason Start Date Expiration Date Visits Requested Visits Authorized [id number] Pending Review Auto-Generat ed Referral 04/17/2024 05/17/2025 1 1 * Diagnostic Procedure Only (Routine) - Pending Review Specialty Diagnoses / Procedures Referred By Sukh waldrop Referred To Contact [facility] Diagnoses Breast disorder Procedures US BIOPSY BREAST LEFT BX BREAST W/DEVICE 1ST LESION ULTRASOUND Minerva Hunt MD [address] [address] [facility] [address] [place] [address] Referral ID Status Reason Start Date Expiration Date Visits Requested Visits Authorized [id number] Pending Review Auto-Generat ed Referral 04/17/2024 05/17/2025 1 1 [facility] for referral (narrative)* Diagnostic Procedure Only (Routine) - Closed Specialty Diagnoses / Procedures Referred By Contac t Referred To Contact [facility] Diagnoses Breast disorder Procedures US BIOPSY BREAST LEFT BX BREAST W/DEVICE 1ST LESION ULTRASOUND GUID Minerva Hernadez MD [address] [place] [address] [facility] [address] [facility] [place] [address] Referral ID Status Reason Start Date Expiration Date V isits Requested Visits Authorized [id number] Closed Auto-Generate d Referral 04/17/2024 05/17/2025 1 1 [facility] for referral (narrative)* Diagnostic Procedure Only (Routine) - Closed Specialty Diagnoses / Procedures Referred By Contac t Referred To Contact [facility] Diagnoses Breast disorder Procedures US BIOPSY AXILLA LEFT BIOPSY MUSCLE PERCUTANEOUS NEEDLE BX/EXC LYMPH NODE NEEDLE SUPERFICIAL Minerva Hernadez MD [address] [place] [address] [facility] [address] [place] [address] Referral ID Status Reason Start Date Expiration Date V isits Requested Visits Authorized [id number] Closed Auto-Generate d Referral 04/17/2024 05/17/2025 1 1 T [facility] for referral (narrative)* Diagnostic Procedure Only (Routine) - Closed Specialty Diagnoses / Procedures Referred By Contac t Referred To Contact XR IMAGING Diagnoses Numbness and tingling in both hands Procedures XR CERV GENERAL 2V AP/LAT RADEX SPINE CERVICAL 2 OR 3 VIEWS Milly Feliciano APRN.HAND SCRAPER [address] [place] [address] Xr Imaging [id number] Referral ID Status Reason Start Date Expiration Date V isits Requested Visits Authorized [id number] Closed Auto-Generate d Referral 03/23/2023 04/21/2024 1 1 [facility] for referral (narrative)* Diagnostic Procedure Only (Routine) - Closed Specialty Diagnoses / Procedures Referred By Contac t Referred To Contact XR IMAGING Diagnoses Chronic midline low back pain with bilateral sciatica Procedures XR LUMBAR GENERAL 3V AP/LAT/L5-S1 X-RAY L-S SPINE AP/LATERAL Alverto Khan MD [address] [place] [address] [place] [address] Referral ID Status Reason Start Date Expiration Date V isits Requested Visits Authorized [id number] Closed Auto-Generate d Referral 09/26/2021 10/26/2022 1 1 [facility] for referral (narrative)* Consultation (Routine) - Closed Specialty Diagnoses / Procedures Referred By Contac t Referred To Contact Cardiovascular Medicine Diagnoses Palpitations Tachycardia Ant Hodge APRN-CNP [address] [place] [address] Geronimo Simon, [address] [place] [address] Referral ID Status Reason Start Date Expiration Date Visits Re quested Visits Authorized [id number] Closed 08/06/2024 08/31/2025 1 1 Scheduling Instructions . [facility] for referral (narrative)* Consultation (Urgent) - New Request Specialty Diagnoses / Procedures Referred By Contac t Referred To Contact Orthopaedics Diagnoses Bursitis of left elbow, unspecified bursa Tina Andrews APRN-CNP [address] [place] [address] Referral ID Status Reason Start Date Expiration Date V isits Requested Visits Authorized [id number] New Request 09/23/2024 10/18/2025 1 1 [facility] for referral (narrative)* Consultation (Routine) - New Request Specialty Diagnoses / Procedures Referred By Contac t Referred To Contact Wound Care Diagnoses Breast abscess Colby Pisano MD [address] [place] [address] Referral ID Status Reason Start Date Expiration Date V isits Requested Visits Authorized [id number] New Request 09/26/2024 10/21/2025 1 1 [facility] for referral (narrative)* Consultation (Urgent) - New Request Specialty Diagnoses / Procedures Referred By Contac t Referred To Contact General Surgery Diagnoses Post-operative state Luisa Singleton, GENERATOR SWITCHBOARD OPERATOR-LUZ ELENA [address] [facility] [address] [place] [address] Colby Pisano MD [address] [place] [phone] Referral ID Status Reason Start Date Expiration Date V isits Requested Visits Authorized [id number] New Request 11/01/2024 11/26/2025 1 1 Scheduling Instructions Ambulatory referral to General Surgery. [facility] for referral (narrative)* Diagnostic Procedure Only (Routine) - Authorized Specialty Diagnoses / Procedures Referred By Contac t Referred To Contact XR IMAGING Diagnoses Pain Procedures XR FOOT GENERAL 3V AP/LAT/OBL BILATERAL RADEX FOOT COMPLETE MINIMUM 3 VIEWS Torri Patel [address] [address] [place] [address] Referral ID Status Reason Start Date Expiration Date Visits Requested Visits Authorized [id number] Authorized Auto-Generat ed Referral 11/25/2024 12/25/2025 1 1 [facility] for visit Narrative* Outpatient Procedure (Routine) - Closed Specialty Diagnoses / Procedures Referred By Contac t Referred To Contact [facility] Diagnoses Rectal bleeding Procedures COLONOSCOPY DIAGNOSTIC COLONOSCOPY FLX DX W/COLLJ SPEC WHEN Debra Becerra MD [address] [place] [address] [facility] [place] [address] [place] [address] Referral ID Status Reason Start Date Expiration Date V isits Requested Visits Authorized [id number] Closed Auto-Generate d Referral 07/03/2022 07/03/2023 1 1 [facility] for visit Narrative* Diagnostic Procedure Only (Routine) - Closed Specialty Diagnoses / Procedures Referred By Contac t Referred To Contact XR IMAGING Diagnoses Numbness and tingling in both hands Procedures XR CERV GENERAL 2V AP/LAT RADEX SPINE CERVICAL 2 OR 3 VIEWS Milly Feliciano APRN.HAND SCRAPER [address] [place] [address] [place] [address] Referral ID Status Reason Start Date Expiration Date V isits Requested Visits Authorized [id number] Closed Auto-Generate d Referral 03/23/2023 04/21/2024 1 1 [facility] for visit Narrative* Diagnostic Procedure Only (Urgent) - Closed Specialty Diagnoses / Procedures Referred By Contac t Referred To Contact XR IMAGING Diagnoses Ankle injuries, right, initial encounter Procedures XR ANKLE GENERAL 3V AP/LAT/OBL RIGHT RADEX ANKLE COMPLETE MINIMUM 3 VIEWS Jonathan Landeros APRN.HAND SCRAPER [address] [place] [address] [place] [address] Referral ID Status Reason Start Date Expiration Date V isits Requested Visits Authorized [id number] Closed Auto-Generate d Referral 08/14/2022 09/13/2023 1 1 [facility] for visit Narrative* Diagnostic Procedure Only (Routine) - Closed Specialty Diagnoses / Procedures Referred By Contac t Referred To Contact XR IMAGING Diagnoses Chronic midline low back pain with bilateral sciatica Procedures XR LUMBAR GENERAL 3V AP/LAT/L5-S1 X-RAY L-S SPINE AP/LATERAL Alverto Khan MD [address] [place] [address] [place] [address] Referral ID Status Reason Start Date Expiration Date V isits Requested Visits Authorized [id number] Closed Auto-Generate d Referral 09/26/2021 10/26/2022 1 1 [facility] for visit Narrative* Auth/Cert Specialty Diagnoses / Procedures Referred By Contac t Referred To Contact Diagnoses Breast abscess Breast abscess [N61.1] Procedures CO EXC CYST/ABERRANT BREAST TISSUE OPEN 1/> LESION EXCISION BREAST CYST FIBROADENOMA LESION Colby Pisano MD [address] [place] [phone] [facility] Referral ID Status Reason Start Date Expiration Date Visits Re quested Visits Authorized [id number] 1 1 [facility] for visit Narrative* Auth/Cert Specialty Diagnoses / Procedures Referred By Contac t Referred To Contact Diagnoses Breast abscess Breast abscess [N61.1] Procedures CO MASTECTOMY PARTIAL MASTECTOMY PARTIAL (LUMPECTOMY) Colby Pisano MD [address] [place] [phone] [facility] Referral ID Status Reason Start Date Expiration Date Visits Re quested Visits Authorized [id number] 1 1 [facility] for visit Narrative* Diagnostic Procedure Only (Routine) - Closed Specialty Diagnoses / Procedures Referred By Contac t Referred To Contact XR IMAGING Diagnoses Pain Procedures XR FOOT GENERAL 3V AP/LAT/OBL BILATERAL RADEX FOOT COMPLETE MINIMUM 3 VIEWS Torri Patel [address] [address] Phone: tel: fax: [place] [address] Referral ID Status Reason Start Date Expiration Date V isits Requested Visits Authorized [id number] Closed Auto-Generate d Referral 11/25/2024 12/25/2025 1 1 [facility] for visit Narrative* Diagnostic Procedure Only (Urgent) - Closed Specialty Diagnoses / Procedures Referred By Contac t Referred To Contact XR IMAGING Diagnoses Lumbar pain Procedures XR LUMBAR GENERAL 3V AP/LAT/L5-S1 RADEX SPINE LUMBOSACRAL 2/3 VIEWS Liset Valdez P, PA [address] [place] [address] Phone: tel: fax: [place] [address] Referral ID Status Reason Start Date Expiration Date V isits Requested Visits Authorized [id number] Closed Auto-Generate d Referral 03/08/2025 04/07/2026 1 1 [facility] Summary Purpose Family History Relationship Condition Age at Onset Recorded Date/T bin father Hypertension Unknown Malignant neoplasm of colon Unknown mother Malignant neoplasm of lung Unknown grandmother Malignant neoplasm of breast Unknown Family Member Type Diagnosis Age At Onset No Information Advance Directives Advance Directive Response Recorded Date/ Time Advance Directives No November 12, 2016 2:09pm Living Will No March 21, 2022 1 0:45am Power of Structural Drafter No March 21, 2022 10:45am Documents on File Type Date Recorded Patient White Spooler Expl anation Advance Directive(s) 04/05/2022 11:17 AM Advance Directive Response Recorded Date/ Time Advance Directives No November 12, 2016 2:09pm Living Will No April 19, 2022 8:22am Power of Structural Drafter No April 19 8:22am Latest Code Status on File Code Status Date Activated Date Inactivated Comments Full Code 12/14/2023 2:09 AM Directive Yes / No Effective Date File Name No Information Reason for Referral Specialty Diagnoses / Procedures Referred By Contac t Referred To Contact General Surgery Diagnoses Breast abscess Procedures CONSULT TO GENERAL SURGERY OFFICE/OUTPATIENT [facility] 60-74 MINUTES Isatu Nieto MD [address] [place] [address] Referral ID Status Reason Start Date Expiration Date Visits Requested Visits Authorized [id number] Authorized PCP Requested Referral 01/24/2022 01/24/2023 1 1 Specialty Diagnoses / Procedures Referred By Contac t Referred To Contact General Surgery Diagnoses Groin abscess Procedures CONSULT TO GENERAL SURGERY OFFICE/OUTPATIENT [facility] 60-74 MINUTES Milly Feliciano APRN.CNP [address] [place] [address] Referral ID Status Reason Start Date Expiration Date Visits Requested Visits Authorized [id number] Authorized PCP Requested Referral 03/24/2022 03/24/2023 1 1 Specialty Diagnoses / Procedures Referred By Contac t Referred To Contact General Surgery Diagnoses Nipple discharge Procedures CONSULT TO GENERAL SURGERY OFFICE/OUTPATIENT [facility] 60-74 MINUTES Isatu Nieto MD [address] [place] [address] Referral ID Status Reason Start Date Expiration Date Visits Requested Visits Authorized [id number] Authorized PCP Requested Referral 06/26/2022 06/26/2023 1 1 Specialty Diagnoses / Procedures Referred By Contac t Referred To Contact [facility] Diagnoses Nipple discharge Procedures JAE DIAGNOSTIC BILAT DIAGNOSTIC MAMMOGRAPHY COMPUTER-AIDED DETCJ BI Isatu Nieto MD [address] [place] [address] [facility] [address] [place] [address] Referral ID Status Reason Start Date Expiration Date Visits Requested Visits Authorized [id number] Authorized Auto-Generat ed Referral 06/26/2022 07/26/2023 1 1 Specialty Diagnoses / Procedures Referred By Contac t Referred To Contact Diagnoses Viral bronchitis Jackie Deal, SCOOBY.HAND SCRAPER [address] [place] [address] Referral ID Status Reason Start Date Expiration Date Visits Re quested Visits Authorized [id number] Closed 1 1 Specialty Diagnoses / Procedures Referred By Contac t Referred To Contact Diagnoses Moderate episode of recurrent major depressive disorder (HCC) Procedures CONSULT TO PSYCHIATRY OFFICE/OUTPATIENT [facility] 60-74 MINUTES Isatu Nieto MD [address] [place] [address] Referral ID Status Reason Start Date Expiration Date Visits Requested Visits Authorized [id number] Pending Review PCP Requested Referral 02/14/2023 02/14/2024 1 1 Specialty Diagnoses / Procedures Referred By Contac t Referred To Contact General Surgery Diagnoses Breast discharge Breast abscess Procedures CONSULT TO GENERAL SURGERY OFFICE/OUTPATIENT [facility] 60-74 MINUTES Isatu Nieto MD [address] [place] [address] Referral ID Status Reason Start Date Expiration Date Visits Requested Visits Authorized [id number] Authorized PCP Requested Referral 02/14/2023 02/14/2024 1 1 Specialty Diagnoses / Procedures Referred By Contac t Referred To Contact Orthopedics Diagnoses Bilateral carpal tunnel syndrome Swelling of hand, unspecified laterality Procedures CONSULT TO ORTHOPAEDICS OFFICE/OUTPATIENT [facility] 60-74 MINUTES Isatu Nieto MD [address] [place] [address] Referral ID Status Reason Start Date Expiration Date Visits Requested Visits Authorized [id number] Authorized PCP Requested Referral 04/03/2023 04/02/2024 1 1 Specialty Diagnoses / Procedures Referred By Contac t Referred To Contact [facility] Diagnoses Bilateral carpal tunnel syndrome Procedures EMG(NEURO/NI) NERVE CONDUCTION STUDIES 9-10 STUDIES Isatu Nieto MD [address] [place] [address] [facility] [place] [address] [place] [address] Referral ID Status Reason Start Date Expiration Date Visits Requested Visits Authorized [id number] Pending Review Auto-Generat ed Referral 04/03/2023 04/03/2024 1 1 Specialty Diagnoses / Procedures Referred By Contac t Referred To Contact Radiology Diagnoses PAD (peripheral artery disease) (HCC) Procedures CTA ABDOMINAL AORTA RUNOFF W/ CONTRAST Endy De Anda MD [address] [place] [address] [facility]AN Referral ID Status Reason Start Date Expiration Date V isits Requested Visits Authorized [id number] Pending Review 02/20/2024 02/19/2025 1 1 Specialty Diagnoses / Procedures Referred By Contac t Referred To Contact Endy De Anda MD [address] [place] [address] Referral ID Status Reason Start Date Expiration Date Visits Requested Visits Authorized [id number] Authorized Consultatio [facility] 02/19/2024 02/18/2025 10 10 Scheduling Instructions We congratulate you on your commitment to quit tobacco! You will be contacted by a [facility] Tobacco Treatment Navigator in the next couple days. Look for a call from [phone]. The [facility] Tobacco Treatment Navigator will help connect you to effective resources for smoking cessation including options for counseling, smoking cessation medication, and other resources. The Tobacco Treatment Navigator can order smoking cessation medication through your primary care provider. Comments Patient has consented to referral. What is the preferred phone number to contact you at: Phone numbers Mobile What is the best time of day to contact you: Anytime Do you have a preferred language other than Nepalese: No Specialty Diagnoses / Procedures Referred By Contac t Referred To Contact Vascular Surgery Diagnoses PAD (peripheral artery disease) ([facility]) Endy De Anda MD [address] [place] [address] [facility] [address] [place] [address] Referral ID Status Reason Start Date Expiration Date V isits Requested Visits Authorized [id number] Authorized 02/19/2024 08/20/2025 3 3 Question Answer What test is being ordered? Segmental Pressures and Waveforms LE Has this patient had an Exercise Study within the last year? No Reason for Visit: Absent/Diminished Pulses Limb? Bilateral Specialty Diagnoses / Procedures Referred By Contact Referred To Contact Vascular Laboratory Diagnoses PAD (peripheral artery disease) ([facility]) Endy De Anda MD [address] [place] [address] [facility] [address] [place] [address] Referral ID Status Reason Start Date Expiration Date V isits Requested Visits Authorized [id number] Authorized 02/19/2024 08/20/2025 3 3 Question Answer What test is being ordered? Limited Peripheral LE Limb? Right Reason for Visit: Arterial Stenosi/Occlusion Can the equipment service technician or Vascular Surgeon spoon maker alter this order if required? No Referral ID Status Reason Start Date Expiration Date V isits Requested Visits Authorized [id number] Authorized 02/19/2024 08/20/2025 3 3 Question Answer What test is being ordered? Duplex Vein Scan LE DVS Reason for Visit: Edema Limited or Bilateral? Limited Limb? Right Can the equipment service technician or Vascular Surgeon spoon maker alter this order if required? No Specialty Diagnoses / Procedures Referred By Contac t Referred To Contact Radiology Diagnoses Abnormal finding on breast imaging Procedures MG BX BREAST 1ST LESION US IMG LT ([place]) [place] [address] [place] [id number] [facility] [place] [address] Referral ID Status Reason Start Date Expiration Date V isits Requested Visits Authorized [id number] Pending Review 02/21/2024 02/20/2025 1 1 Specialty Diagnoses / Procedures Referred By Contac t Referred To Contact General Surgery Diagnoses Abnormal finding on breast imaging Leigha Granda MD [address] [place], [place] [id number] [facility] [address] [place] [address] Referral ID Status Reason Start Date Expiration Date V isits Requested Visits Authorized [id number] Authorized 02/21/2024 02/20/2025 3 3 Scheduling Instructions Please call [facility] at , option # 4 to schedule an appointment with one of our Breast Specialists. Question Answer Reason for Referral: Abnormal Breast Imaging Specialty Diagnoses / Procedures Referred By Contac t Referred To Contact Radiology Diagnoses OUTSIDE CORRESPONDENCE Procedures MG IMPORTED IMAGES Kiet Flannery DO [address] [place] [address] [facility] [place] [address] Referral ID Status Reason Start Date Expiration Date Visits Re quested Visits Authorized [id number] Closed 02/20/2024 02/19/2025 1 1 Referral ID Status Reason Start Date Expiration Date Visits Re quested Visits Authorized [id number] Closed 02/20/2024 02/19/2025 1 1 Referral ID Status Reason Start Date Expiration Date Visits Re quested Visits Authorized [id number] Closed 02/20/2024 02/19/2025 1 1 Referral ID Status Reason Start Date Expiration Date Visits Re quested Visits Authorized [id number] Closed 02/20/2024 02/19/2025 1 1 Referral ID Status Reason Start Date Expiration Date Visits Re quested Visits Authorized [id number] Closed 02/20/2024 02/19/2025 1 1 Referral ID Status Reason Start Date Expiration Date Visits Re quested Visits Authorized [id number] Closed 02/20/2024 02/19/2025 1 1 Specialty Diagnoses / Procedures Referred By Contac t Referred To Contact Radiology Diagnoses Unspecified superficial injuries of breast, unspecified breast, initial encounter Procedures US BREAST/[place] [address] [place] [address] [facility] [place] [address] Referral ID Status Reason Start Date Expiration Date Visits Re quested Visits Authorized [id number] Closed 02/13/2024 02/12/2025 1 1 Specialty Diagnoses / Procedures Referred By Contac t Referred To Contact Radiology Diagnoses Unspecified superficial injuries of breast, unspecified breast, initial encounter Procedures MG MAMMO DIAG BILAT REMEDIOS W/CAD MG DIGITAL [place] [address] [place] [address] [facility] [place] [place] [address] Referral ID Status Reason Start Date Expiration Date Visits Re quested Visits Authorized [id number] Closed 02/13/2024 02/12/2025 1 1 Specialty Diagnoses / Procedures Referred By Contac t Referred To Contact Diagnoses Vocal fold leukoplakia Procedures REFER TO [facility] - PREOPERATIVE OPTIMIZATION OFFICE/OUTPATIENT [facility] 60 MINUTES Daniela Escobar MD [address] [place] [address] Referral ID Status Reason Start Date Expiration Date Visits Requested Visits Authorized [id number] Authorized PCP Requested Referral 06/16/2024 06/16/2025 1 1 Specialty Diagnoses / Procedures Referred By Contac t Referred To Contact Psychiatry Diagnoses Bipolar affective disorder, remission status unspecified (HCC) Ant Hodge, HAND SCRAPER [address] [place] [address] [facility] [address] [place] [address] Referral ID Status Reason Start Date Expiration Date Visits Requested Visits Authorized [id number] Pending Review Specialty Services Required/Pat ient's Best Interest 08/07/2024 08/07/2025 1 1 Specialty Diagnoses / Procedures Referred By Contac t Referred To Contact Wound Care Diagnoses Abscess of left breast Nonhealing surgical wound, sequela Leeann Thompson, GENERATOR SWITCHBOARD OPERATOR-HAND SCRAPER [address] [place] [address] Referral ID Status Reason Start Date Expiration Date V isits Requested Visits Authorized [id number] New Request 09/29/2024 10/24/2025 1 1 Chief Complaint and Reason for Visit Chief Complaint ABSCESS CONGESTION/COUGH/SORE THROAT Chief Complaint ABSCESS CONGESTION/COUGH/SORE THROAT ABSCESS Health Concerns Infection Onset Date Last Indicated Resolved Time COVID-19 Confirmed 07/26/2022 07/26/2022 Infection Onset Date Last Indicated Resolved Time COVID-19 Confirmed 07/26/2022 07/26/2022 8:51 PM EDT Medications Administered Section Inactive Administered Medications - up to 3 most recent administrations Medication Order MAR Action Action Date Dose Rate Site diphenhydrAMINE 12.5-50 mg injection (BENADRYL) 12.5-50 mg, INTRAVENOUS, DIRECTED, Starting on Sun09/22/22 at 1400, Until Sun09/22/22 at 1759, DOSING DIRECTED BY PHYSICIAN FOR PROCEDURAL SEDATION ONLY, Intraprocedure Given 09/22/2022 1:31 PM EST 50 mg fentaNYL 50 mcg/mL 25-100 mcg injection (SUBLIMAZE) 25-100 mcg, INTRAVENOUS, DIRECTED, Starting on Sun09/22/22 at 1400, Until Sun09/22/22 at 1759, DOSING DIRECTED BY PHYSICIAN FOR PROCEDURAL SEDATION ONLY, Intraprocedure Given 09/22/2022 1:36 PM EST 50 mcg Given 09/22/2022 1:29 PM EST 50 mcg lactated ringers iv infusion 75 mL/hr, INTRAVENOUS, CONTINUOUS, Starting on Sun09/22/22 at 1230, Until Sun09/22/22 at 1400, Preprocedure New Bag/Syringe/Bottle 09/22/2022 12:40 PM EST 75 mL/hr 75 mL/hr Arm, Right midazolam (PF) 1-5 mg injection (VERSED) 1-5 mg, INTRAVENOUS, DIRECTED, Starting on Sun09/22/22 at 1400, Until Sun09/22/22 at 1759, DOSING DIRECTED BY PHYSICIAN FOR PROCEDURAL SEDATION ONLY, Intraprocedure Given 09/22/2022 1:49 PM EST 2 mg Given 09/22/2022 1:31 PM EST 2 mg Given 09/22/2022 1:29 PM EST 3 mg Physical Exam Exam Findings Details Extremity Comments Known DVTs R aranza t R leg, hx intraabdominal? DVT Extremity Normal No calf tenderne ss - left lower extremity or right lower extremity. Extremity * Edema - Side: ri ght, Severity: 1+, Type: pitting. Varicosities. Respiratory Normal Inspection - Nor mal. Effort - Normal. Abdomen Normal No abdominal ten derness. Genitourinary Normal Urethral meatus - Normal. External genitalia - Normal. Glands - Normal. Perineum - Normal. Anus - Normal. Vagina - Normal. No vaginal discharge. Genitourinary * Cervix - no sten osis. Uterus - declines refuses. Adnexa - declines refuses. Rectovaginal - declines. Pelvic deferred. Rectal deferred. Skin Normal Inspection - Nor mal. Psychiatric Comments mistrustful Psychiatric Normal Orientation - Or iented to time, place, person & situation. No pressured speech. No suicidal ideation. Psychiatric * Agitation. Anxio us. Inappropriate mood and affect. Paranoia. Poor insight. Poor judgment. Exam Findings Details Neurological Normal Memory - Normal. Psychiatric Normal Orientation - Or iented to time, place, person & situation. Appropriate mood and affect. Normal insight. Normal judgment. Cardiovascular Normal Inspection - JVD : Absent. Heart rate - Regular rate. Rhythm - Regular. Heart sounds - Normal S1, Normal S2. Murmurs - None. Musculoskeletal Comments right leg pain Skin Comments tenderness and e berto in right lateral lower extremity Respiratory Normal Inspection - Nor mal. Auscultation - Normal. Effort - Normal. Vascular Normal Pulses - Dorsali s pedis: Normal. Capillary refill - Less than 2 seconds. Extremity Normal No edema. Exam Findings Details No Information Additional Source Comments INFORMATION SOURCE (unrecogn ized section and content) DATE CREATED AUTHOR 03/05/2021 [facility] DATE CREATED AUTHOR AUTHOR'S ORGANIZ ATION 01/04/2022 [facility] DATE CREATED AUTHOR AUTHOR'S ORGANIZ ATION 03/04/2022 [facility] DATE CREATED AUTHOR AUTHOR'S ORGANIZ ATION 10/31/2023 [facility] DATE CREATED AUTHOR AUTHOR'S ORGANIZ ATION 12/16/2023 [facility] DATE CREATED AUTHOR AUTHOR'S ORGANIZ ATION 01/03/2024 [facility] DATE CREATED AUTHOR AUTHOR'S ORGANIZ ATION 01/04/2024 [facility] DATE CREATED AUTHOR AUTHOR'S ORGANIZ ATION 01/16/2024 [facility] DATE CREATED AUTHOR AUTHOR'S ORGANIZ ATION 02/26/2024 [facility] DATE CREATED AUTHOR AUTHOR'S ORGANIZ ATION 04/25/2024 [facility] DATE CREATED AUTHOR AUTHOR'S ORGANIZ ATION 06/06/2024 [facility] DATE CREATED AUTHOR AUTHOR'S ORGANIZ ATION 07/23/2024 [facility] DATE CREATED AUTHOR AUTHOR'S ORGANIZ ATION 08/08/2024 [facility] DATE CREATED AUTHOR AUTHOR'S ORGANIZ ATION 10/25/2024 [facility] DATE CREATED AUTHOR AUTHOR'S ORGANIZ ATION 11/26/2024 [facility] DATE CREATED AUTHOR AUTHOR'S ORGANIZ ATION 02/21/2025 [facility] DATE CREATED AUTHOR AUTHOR'S ORGANIZ ATION 03/04/2025 [facility] DATE CREATED AUTHOR AUTHOR'S ORGANIZ ATION 03/12/2025 [facility] DATE CREATED AUTHOR AUTHOR'S ORGANIZ ATION 04/02/2025 [facility] Source Comments (unrecognize d section and content) In the event this informatio n is protected by the Federal Confidentiality of Alcohol and Drug Abuse Patient Records regulations: The Federal rules restrict any use of the information to criminally investigate or prosecute any alcohol or drug abuse patient.[facility] the event this information is protected by the Federal Confidentiality of Alcohol and Drug Abuse Patient Records regulations: The Federal rules restrict any use of the information to criminally investigate or prosecute any alcohol or drug abuse patient.[facility] the event this information is protected by the Federal Confidentiality of Alcohol and Drug Abuse Patient Records regulations: The Federal rules restrict any use of the information to criminally investigate or prosecute any alcohol or drug abuse patient.[facility] the event this information is protected by the Federal Confidentiality of Alcohol and Drug Abuse Patient Records regulations: The Federal rules restrict any use of the information to criminally investigate or prosecute any alcohol or drug abuse patient.[facility] the event this information is protected by the Federal Confidentiality of Alcohol and Drug Abuse Patient Records regulations: The Federal rules restrict any use of the information to criminally investigate or prosecute any alcohol or drug abuse patient.[facility] the event this information is protected by the Federal Confidentiality of Alcohol and Drug Abuse Patient Records regulations: The Federal rules restrict any use of the information to criminally investigate or prosecute any alcohol or drug abuse patient.[facility] the event this information is protected by the Federal Confidentiality of Alcohol and Drug Abuse Patient Records regulations: The Federal rules restrict any use of the information to criminally investigate or prosecute any alcohol or drug abuse patient.[facility] the event this information is protected by the Federal Confidentiality of Alcohol and Drug Abuse Patient Records regulations: The Federal rules restrict any use of the information to criminally investigate or prosecute any alcohol or drug abuse patient.[facility] the event this information is protected by the Federal Confidentiality of Alcohol and Drug Abuse Patient Records regulations: The Federal rules restrict any use of the information to criminally investigate or prosecute any alcohol or drug abuse patient.[facility] the event this information is protected by the Federal Confidentiality of Alcohol and Drug Abuse Patient Records regulations: The Federal rules restrict any use of the information to criminally investigate or prosecute any alcohol or drug abuse patient.[facility] the event this information is protected by the Federal Confidentiality of Alcohol and Drug Abuse Patient Records regulations: The Federal rules restrict any use of the information to criminally investigate or prosecute any alcohol or drug abuse patient.[facility] the event this information is protected by the Federal Confidentiality of Alcohol and Drug Abuse Patient Records regulations: The Federal rules restrict any use of the information to criminally investigate or prosecute any alcohol or drug abuse patient.[facility] the event this information is protected by the Federal Confidentiality of Alcohol and Drug Abuse Patient Records regulations: The Federal rules restrict any use of the information to criminally investigate or prosecute any alcohol or drug abuse patient.[facility] Hospital[facility] the event this information is protected by the Federal Confidentiality of Alcohol and Drug Abuse Patient Records regulations: The Federal rules restrict any use of the information to criminally investigate or prosecute any alcohol or drug abuse patient.[facility] the event this information is protected by the Federal Confidentiality of Alcohol and Drug Abuse Patient Records regulations: The Federal rules restrict any use of the information to criminally investigate or prosecute any alcohol or drug abuse patient.[facility] Hospital[facility] the event this information is protected by the Federal Confidentiality of Alcohol and Drug Abuse Patient Records regulations: The Federal rules restrict any use of the information to criminally investigate or prosecute any alcohol or drug abuse patient.[facility] Hospital[facility] the event this information is protected by the Federal Confidentiality of Alcohol and Drug Abuse Patient Records regulations: The Federal rules restrict any use of the information to criminally investigate or prosecute any alcohol or drug abuse patient.[facility] Hospital[facility] the event this information is protected by the Federal Confidentiality of Alcohol and Drug Abuse Patient Records regulations: The Federal rules restrict any use of the information to criminally investigate or prosecute any alcohol or drug abuse patient.[facility] Hospital[facility] the event this information is protected by the Federal Confidentiality of Alcohol and Drug Abuse Patient Records regulations: The Federal rules restrict any use of the information to criminally investigate or prosecute any alcohol or drug abuse patient.[facility] Hospital[facility] the event this information is protected by the Federal Confidentiality of Alcohol and Drug Abuse Patient Records regulations: The Federal rules restrict any use of the information to criminally investigate or prosecute any alcohol or drug abuse patient.[facility] the event this information is protected by the Federal Confidentiality of Alcohol and Drug Abuse Patient Records regulations: The Federal rules restrict any use of the information to criminally investigate or prosecute any alcohol or drug abuse patient.[facility] Hospital[facility] the event this information is protected by the Federal Confidentiality of Alcohol and Drug Abuse Patient Records regulations: The Federal rules restrict any use of the information to criminally investigate or prosecute any alcohol or drug abuse patient.[facility] Hospital[facility] the event this information is protected by the Federal Confidentiality of Alcohol and Drug Abuse Patient Records regulations: The Federal rules restrict any use of the information to criminally investigate or prosecute any alcohol or drug abuse patient.[facility] HospitalIn the event this information is protected by the Federal Confidentiality of Alcohol and Drug Abuse Patient Records regulations: The Federal rules restrict any use of the information to criminally investigate or prosecute any alcohol or drug abuse patient.[facility] Hospital[facility] the event this information is protected by the Federal Confidentiality of Alcohol and Drug Abuse Patient Records regulations: The Federal rules restrict any use of the information to criminally investigate or prosecute any alcohol or drug abuse patient.[facility] Hospital[facility] the event this information is protected by the Federal Confidentiality of Alcohol and Drug Abuse Patient Records regulations: The Federal rules restrict any use of the information to criminally investigate or prosecute any alcohol or drug abuse patient.[facility] Hospital[facility] the event this information is protected by the Federal Confidentiality of Alcohol and Drug Abuse Patient Records regulations: The Federal rules restrict any use of the information to criminally investigate or prosecute any alcohol or drug abuse patient.[facility] Hospital[facility] the event this information is protected by the Federal Confidentiality of Alcohol and Drug Abuse Patient Records regulations: The Federal rules restrict any use of the information to criminally investigate or prosecute any alcohol or drug abuse patient.[facility] Hospital[facility] the event this information is protected by the Federal Confidentiality of Alcohol and Drug Abuse Patient Records regulations: The Federal rules restrict any use of the information to criminally investigate or prosecute any alcohol or drug abuse patient.[facility] the event this information is protected by the Federal Confidentiality of Alcohol and Drug Abuse Patient Records regulations: The Federal rules restrict any use of the information to criminally investigate or prosecute any alcohol or drug abuse patient.[facility] HospitalIn the event this information is protected by the Federal Confidentiality of Alcohol and Drug Abuse Patient Records regulations: The Federal rules restrict any use of the information to criminally investigate or prosecute any alcohol or drug abuse patient.[facility] HospitalIn the event this information is protected by the Federal Confidentiality of Alcohol and Drug Abuse Patient Records regulations: The Federal rules restrict any use of the information to criminally investigate or prosecute any alcohol or drug abuse patient.[facility] HospitalIn the event this information is protected by the Federal Confidentiality of Alcohol and Drug Abuse Patient Records regulations: The Federal rules restrict any use of the information to criminally investigate or prosecute any alcohol or drug abuse patient.[facility] HospitalIn the event this information is protected by the Federal Confidentiality of Alcohol and Drug Abuse Patient Records regulations: The Federal rules restrict any use of the information to criminally investigate or prosecute any alcohol or drug abuse patient.[facility] HospitalIn the event this information is protected by the Federal Confidentiality of Alcohol and Drug Abuse Patient Records regulations: The Federal rules restrict any use of the information to criminally investigate or prosecute any alcohol or drug abuse patient.[facility] HospitalIn the event this information is protected by the Federal Confidentiality of Alcohol and Drug Abuse Patient Records regulations: The Federal rules restrict any use of the information to criminally investigate or prosecute any alcohol or drug abuse patient.[facility] HospitalIn the event this information is protected by the Federal Confidentiality of Alcohol and Drug Abuse Patient Records regulations: The Federal rules restrict any use of the information to criminally investigate or prosecute any alcohol or drug abuse patient.[facility] HospitalIn the event this information is protected by the Federal Confidentiality of Alcohol and Drug Abuse Patient Records regulations: The Federal rules restrict any use of the information to criminally investigate or prosecute any alcohol or drug abuse patient.[facility] HospitalIn the event this information is protected by the Federal Confidentiality of Alcohol and Drug Abuse Patient Records regulations: The Federal rules restrict any use of the information to criminally investigate or prosecute any alcohol or drug abuse patient.[facility] HospitalIn the event this information is protected by the Federal Confidentiality of Alcohol and Drug Abuse Patient Records regulations: The Federal rules restrict any use of the information to criminally investigate or prosecute any alcohol or drug abuse patient.[facility] HospitalIn the event this information is protected by the Federal Confidentiality of Alcohol and Drug Abuse Patient Records regulations: The Federal rules restrict any use of the information to criminally investigate or prosecute any alcohol or drug abuse patient.[facility] HospitalIn the event this information is protected by the Federal Confidentiality of Alcohol and Drug Abuse Patient Records regulations: The Federal rules restrict any use of the information to criminally investigate or prosecute any alcohol or drug abuse patient.[facility] HospitalIn the event this information is protected by the Federal Confidentiality of Alcohol and Drug Abuse Patient Records regulations: The Federal rules restrict any use of the information to criminally investigate or prosecute any alcohol or drug abuse patient.[facility] the event this information is protected by the Federal Confidentiality of Alcohol and Drug Abuse Patient Records regulations: The Federal rules restrict any use of the information to criminally investigate or prosecute any alcohol or drug abuse patient.[facility]In the event this information is protected by the Federal Confidentiality of Alcohol and Drug Abuse Patient Records regulations: The Federal rules restrict any use of the information to criminally investigate or prosecute any alcohol or drug abuse patient.[facility]In the event this information is protected by the Federal Confidentiality of Alcohol and Drug Abuse Patient Records regulations: The Federal rules restrict any use of the information to criminally investigate or prosecute any alcohol or drug abuse patient.[facility]In the event this information is protected by the Federal Confidentiality of Alcohol and Drug Abuse Patient Records regulations: The Federal rules restrict any use of the information to criminally investigate or prosecute any alcohol or drug abuse patient.[facility]In the event this information is protected by the Federal Confidentiality of Alcohol and Drug Abuse Patient Records regulations: The Federal rules restrict any use of the information to criminally investigate or prosecute any alcohol or drug abuse patient.[facility]In the event this information is protected by the Federal Confidentiality of Alcohol and Drug Abuse Patient Records regulations: The Federal rules restrict any use of the information to criminally investigate or prosecute any alcohol or drug abuse patient.[facility] HospitalIn the event this information is protected by the Federal Confidentiality of Alcohol and Drug Abuse Patient Records regulations: The Federal rules restrict any use of the information to criminally investigate or prosecute any alcohol or drug abuse patient.[facility] HospitalIn the event this information is protected by the Federal Confidentiality of Alcohol and Drug Abuse Patient Records regulations: The Federal rules restrict any use of the information to criminally investigate or prosecute any alcohol or drug abuse patient.[facility] HospitalIn the event this information is protected by the Federal Confidentiality of Alcohol and Drug Abuse Patient Records regulations: The Federal rules restrict any use of the information to criminally investigate or prosecute any alcohol or drug abuse patient.[facility]In the event this information is protected by the Federal Confidentiality of Alcohol and Drug Abuse Patient Records regulations: The Federal rules restrict any use of the information to criminally investigate or prosecute any alcohol or drug abuse patient.[facility]In the event this information is protected by the Federal Confidentiality of Alcohol and Drug Abuse Patient Records regulations: The Federal rules restrict any use of the information to criminally investigate or prosecute any alcohol or drug abuse patient.[facility]In the event this information is protected by the Federal Confidentiality of Alcohol and Drug Abuse Patient Records regulations: The Federal rules restrict any use of the information to criminally investigate or prosecute any alcohol or drug abuse patient.[facility] HospitalIn the event this information is protected by the Federal Confidentiality of Alcohol and Drug Abuse Patient Records regulations: The Federal rules restrict any use of the information to criminally investigate or prosecute any alcohol or drug abuse patient.[facility] HospitalIn the event this information is protected by the Federal Confidentiality of Alcohol and Drug Abuse Patient Records regulations: The Federal rules restrict any use of the information to criminally investigate or prosecute any alcohol or drug abuse patient.[facility] HospitalIn the event this information is protected by the Federal Confidentiality of Alcohol and Drug Abuse Patient Records regulations: The Federal rules restrict any use of the information to criminally investigate or prosecute any alcohol or drug abuse patient.[facility] HospitalIn the event this information is protected by the Federal Confidentiality of Alcohol and Drug Abuse Patient Records regulations: The Federal rules restrict any use of the information to criminally investigate or prosecute any alcohol or drug abuse patient.[facility] HospitalIn the event this information is protected by the Federal Confidentiality of Alcohol and Drug Abuse Patient Records regulations: The Federal rules restrict any use of the information to criminally investigate or prosecute any alcohol or drug abuse patient.[facility] HospitalIn the event this information is protected by the Federal Confidentiality of Alcohol and Drug Abuse Patient Records regulations: The Federal rules restrict any use of the information to criminally investigate or prosecute any alcohol or drug abuse patient.[facility] HospitalIn the event this information is protected by the Federal Confidentiality of Alcohol and Drug Abuse Patient Records regulations: The Federal rules restrict any use of the information to criminally investigate or prosecute any alcohol or drug abuse patient.[facility] HospitalIn the event this information is protected by the Federal Confidentiality of Alcohol and Drug Abuse Patient Records regulations: The Federal rules restrict any use of the information to criminally investigate or prosecute any alcohol or drug abuse patient.[facility] HospitalIn the event this information is protected by the Federal Confidentiality of Alcohol and Drug Abuse Patient Records regulations: The Federal rules restrict any use of the information to criminally investigate or prosecute any alcohol or drug abuse patient.[facility] HospitalIn the event this information is protected by the Federal Confidentiality of Alcohol and Drug Abuse Patient Records regulations: The Federal rules restrict any use of the information to criminally investigate or prosecute any alcohol or drug abuse patient.[facility] HospitalIn the event this information is protected by the Federal Confidentiality of Alcohol and Drug Abuse Patient Records regulations: The Federal rules restrict any use of the information to criminally investigate or prosecute any alcohol or drug abuse patient.[facility] HospitalIn the event this information is protected by the Federal Confidentiality of Alcohol and Drug Abuse Patient Records regulations: The Federal rules restrict any use of the information to criminally investigate or prosecute any alcohol or drug abuse patient.[facility] HospitalIn the event this information is protected by the Federal Confidentiality of Alcohol and Drug Abuse Patient Records regulations: The Federal rules restrict any use of the information to criminally investigate or prosecute any alcohol or drug abuse patient.[facility] HospitalIn the event this information is protected by the Federal Confidentiality of Alcohol and Drug Abuse Patient Records regulations: The Federal rules restrict any use of the information to criminally investigate or prosecute any alcohol or drug abuse patient.[facility] HospitalIn the event this information is protected by the Federal Confidentiality of Alcohol and Drug Abuse Patient Records regulations: The Federal rules restrict any use of the information to criminally investigate or prosecute any alcohol or drug abuse patient.[facility] the event this information is protected by the Federal Confidentiality of Alcohol and Drug Abuse Patient Records regulations: The Federal rules restrict any use of the information to criminally investigate or prosecute any alcohol or drug abuse patient.[facility] HospitalIn the event this information is protected by the Federal Confidentiality of Alcohol and Drug Abuse Patient Records regulations: The Federal rules restrict any use of the information to criminally investigate or prosecute any alcohol or drug abuse patient.[facility] HospitalIn the event this information is protected by the Federal Confidentiality of Alcohol and Drug Abuse Patient Records regulations: The Federal rules restrict any use of the information to criminally investigate or prosecute any alcohol or drug abuse patient.[facility] HospitalIn the event this information is protected by the Federal Confidentiality of Alcohol and Drug Abuse Patient Records regulations: The Federal rules restrict any use of the information to criminally investigate or prosecute any alcohol or drug abuse patient.[facility] HospitalIn the event this information is protected by the Federal Confidentiality of Alcohol and Drug Abuse Patient Records regulations: The Federal rules restrict any use of the information to criminally investigate or prosecute any alcohol or drug abuse patient.[facility] HospitalIn the event this information is protected by the Federal Confidentiality of Alcohol and Drug Abuse Patient Records regulations: The Federal rules restrict any use of the information to criminally investigate or prosecute any alcohol or drug abuse patient.[facility] HospitalIn the event this information is protected by the Federal Confidentiality of Alcohol and Drug Abuse Patient Records regulations: The Federal rules restrict any use of the information to criminally investigate or prosecute any alcohol or drug abuse patient.[facility] HospitalIn the event this information is protected by the Federal Confidentiality of Alcohol and Drug Abuse Patient Records regulations: The Federal rules restrict any use of the information to criminally investigate or prosecute any alcohol or drug abuse patient.[facility] HospitalIn the event this information is protected by the Federal Confidentiality of Alcohol and Drug Abuse Patient Records regulations: The Federal rules restrict any use of the information to criminally investigate or prosecute any alcohol or drug abuse patient.[facility] HospitalIn the event this information is protected by the Federal Confidentiality of Alcohol and Drug Abuse Patient Records regulations: The Federal rules restrict any use of the information to criminally investigate or prosecute any alcohol or drug abuse patient.[facility] HospitalIn the event this information is protected by the Federal Confidentiality of Alcohol and Drug Abuse Patient Records regulations: The Federal rules restrict any use of the information to criminally investigate or prosecute any alcohol or drug abuse patient.[facility] HospitalIn the event this information is protected by the Federal Confidentiality of Alcohol and Drug Abuse Patient Records regulations: The Federal rules restrict any use of the information to criminally investigate or prosecute any alcohol or drug abuse patient.[facility] HospitalIn the event this information is protected by the Federal Confidentiality of Alcohol and Drug Abuse Patient Records regulations: The Federal rules restrict any use of the information to criminally investigate or prosecute any alcohol or drug abuse patient.[facility] HospitalIn the event this information is protected by the Federal Confidentiality of Alcohol and Drug Abuse Patient Records regulations: The Federal rules restrict any use of the information to criminally investigate or prosecute any alcohol or drug abuse patient.[facility] HospitalIn the event this information is protected by the Federal Confidentiality of Alcohol and Drug Abuse Patient Records regulations: The Federal rules restrict any use of the information to criminally investigate or prosecute any alcohol or drug abuse patient.[facility] HospitalIn the event this information is protected by the Federal Confidentiality of Alcohol and Drug Abuse Patient Records regulations: The Federal rules restrict any use of the information to criminally investigate or prosecute any alcohol or drug abuse patient.[facility] HospitalIn the event this information is protected by the Federal Confidentiality of Alcohol and Drug Abuse Patient Records regulations: The Federal rules restrict any use of the information to criminally investigate or prosecute any alcohol or drug abuse patient.[facility] HospitalIn the event this information is protected by the Federal Confidentiality of Alcohol and Drug Abuse Patient Records regulations: The Federal rules restrict any use of the information to criminally investigate or prosecute any alcohol or drug abuse patient.[facility]In the event this information is protected by the Federal Confidentiality of Alcohol and Drug Abuse Patient Records regulations: The Federal rules restrict any use of the information to criminally investigate or prosecute any alcohol or drug abuse patient.[facility] HospitalIn the event this information is protected by the Federal Confidentiality of Alcohol and Drug Abuse Patient Records regulations: The Federal rules restrict any use of the information to criminally investigate or prosecute any alcohol or drug abuse patient.[facility] HospitalIn the event this information is protected by the Federal Confidentiality of Alcohol and Drug Abuse Patient Records regulations: The Federal rules restrict any use of the information to criminally investigate or prosecute any alcohol or drug abuse patient.[facility] HospitalIn the event this information is protected by the Federal Confidentiality of Alcohol and Drug Abuse Patient Records regulations: The Federal rules restrict any use of the information to criminally investigate or prosecute any alcohol or drug abuse patient.[facility] HospitalIn the event this information is protected by the Federal Confidentiality of Alcohol and Drug Abuse Patient Records regulations: The Federal rules restrict any use of the information to criminally investigate or prosecute any alcohol or drug abuse patient.[facility] HospitalIn the event this information is protected by the Federal Confidentiality of Alcohol and Drug Abuse Patient Records regulations: The Federal rules restrict any use of the information to criminally investigate or prosecute any alcohol or drug abuse patient.[facility] HospitalIn the event this information is protected by the Federal Confidentiality of Alcohol and Drug Abuse Patient Records regulations: The Federal rules restrict any use of the information to criminally investigate or prosecute any alcohol or drug abuse patient.[facility] HospitalIn the event this information is protected by the Federal Confidentiality of Alcohol and Drug Abuse Patient Records regulations: The Federal rules restrict any use of the information to criminally investigate or prosecute any alcohol or drug abuse patient.[facility]In the event this information is protected by the Federal Confidentiality of Alcohol and Drug Abuse Patient Records regulations: The Federal rules restrict any use of the information to criminally investigate or prosecute any alcohol or drug abuse patient.[facility]In the event this information is protected by the Federal Confidentiality of Alcohol and Drug Abuse Patient Records regulations: The Federal rules restrict any use of the information to criminally investigate or prosecute any alcohol or drug abuse patient.[facility] HospitalIn the event this information is protected by the Federal Confidentiality of Alcohol and Drug Abuse Patient Records regulations: The Federal rules restrict any use of the information to criminally investigate or prosecute any alcohol or drug abuse patient.[facility] HospitalIn the event this information is protected by the Federal Confidentiality of Alcohol and Drug Abuse Patient Records regulations: The Federal rules restrict any use of the information to criminally investigate or prosecute any alcohol or drug abuse patient.[facility] HospitalIn the event this information is protected by the Federal Confidentiality of Alcohol and Drug Abuse Patient Records regulations: The Federal rules restrict any use of the information to criminally investigate or prosecute any alcohol or drug abuse patient.[facility] HospitalIn the event this information is protected by the Federal Confidentiality of Alcohol and Drug Abuse Patient Records regulations: The Federal rules restrict any use of the information to criminally investigate or prosecute any alcohol or drug abuse patient.[facility] HospitalIn the event this information is protected by the Federal Confidentiality of Alcohol and Drug Abuse Patient Records regulations: The Federal rules restrict any use of the information to criminally investigate or prosecute any alcohol or drug abuse patient.[facility] HospitalIn the event this information is protected by the Federal Confidentiality of Alcohol and Drug Abuse Patient Records regulations: The Federal rules restrict any use of the information to criminally investigate or prosecute any alcohol or drug abuse patient.[facility]In the event this information is protected by the Federal Confidentiality of Alcohol and Drug Abuse Patient Records regulations: The Federal rules restrict any use of the information to criminally investigate or prosecute any alcohol or drug abuse patient.[facility]In the event this information is protected by the Federal Confidentiality of Alcohol and Drug Abuse Patient Records regulations: The Federal rules restrict any use of the information to criminally investigate or prosecute any alcohol or drug abuse patient.[facility] HospitalIn the event this information is protected by the Federal Confidentiality of Alcohol and Drug Abuse Patient Records regulations: The Federal rules restrict any use of the information to criminally investigate or prosecute any alcohol or drug abuse patient.[facility] HospitalIn the event this information is protected by the Federal Confidentiality of Alcohol and Drug Abuse Patient Records regulations: The Federal rules restrict any use of the information to criminally investigate or prosecute any alcohol or drug abuse patient.[facility] HospitalIn the event this information is protected by the Federal Confidentiality of Alcohol and Drug Abuse Patient Records regulations: The Federal rules restrict any use of the information to criminally investigate or prosecute any alcohol or drug abuse patient.[facility]In the event this information is protected by the Federal Confidentiality of Alcohol and Drug Abuse Patient Records regulations: The Federal rules restrict any use of the information to criminally investigate or prosecute any alcohol or drug abuse patient.[facility] HospitalIn the event this information is protected by the Federal Confidentiality of Alcohol and Drug Abuse Patient Records regulations: The Federal rules restrict any use of the information to criminally investigate or prosecute any alcohol or drug abuse patient.[facility]In the event this information is protected by the Federal Confidentiality of Alcohol and Drug Abuse Patient Records regulations: The Federal rules restrict any use of the information to criminally investigate or prosecute any alcohol or drug abuse patient.[facility]In the event this information is protected by the Federal Confidentiality of Alcohol and Drug Abuse Patient Records regulations: The Federal rules restrict any use of the information to criminally investigate or prosecute any alcohol or drug abuse patient.[facility]In the event this information is protected by the Federal Confidentiality of Alcohol and Drug Abuse Patient Records regulations: The Federal rules restrict any use of the information to criminally investigate or prosecute any alcohol or drug abuse patient.[facility]In the event this information is protected by the Federal Confidentiality of Alcohol and Drug Abuse Patient Records regulations: The Federal rules restrict any use of the information to criminally investigate or prosecute any alcohol or drug abuse patient.[facility]In the event this information is protected by the Federal Confidentiality of Alcohol and Drug Abuse Patient Records regulations: The Federal rules restrict any use of the information to criminally investigate or prosecute any alcohol or drug abuse patient.[facility]In the event this information is protected by the Federal Confidentiality of Alcohol and Drug Abuse Patient Records regulations: The Federal rules restrict any use of the information to criminally investigate or prosecute any alcohol or drug abuse patient.[facility]In the event this information is protected by the Federal Confidentiality of Alcohol and Drug Abuse Patient Records regulations: The Federal rules restrict any use of the information to criminally investigate or prosecute any alcohol or drug abuse patient.[facility]In the event this information is protected by the Federal Confidentiality of Alcohol and Drug Abuse Patient Records regulations: The Federal rules restrict any use of the information to criminally investigate or prosecute any alcohol or drug abuse patient.[facility] HospitalIn the event this information is protected by the Federal Confidentiality of Alcohol and Drug Abuse Patient Records regulations: The Federal rules restrict any use of the information to criminally investigate or prosecute any alcohol or drug abuse patient.[facility] the event this information is protected by the Federal Confidentiality of Alcohol and Drug Abuse Patient Records regulations: The Federal rules restrict any use of the information to criminally investigate or prosecute any alcohol or drug abuse patient.[facility]In the event this information is protected by the Federal Confidentiality of Alcohol and Drug Abuse Patient Records regulations: The Federal rules restrict any use of the information to criminally investigate or prosecute any alcohol or drug abuse patient.[facility]In the event this information is protected by the Federal Confidentiality of Alcohol and Drug Abuse Patient Records regulations: The Federal rules restrict any use of the information to criminally investigate or prosecute any alcohol or drug abuse patient.[facility]In the event this information is protected by the Federal Confidentiality of Alcohol and Drug Abuse Patient Records regulations: The Federal rules restrict any use of the information to criminally investigate or prosecute any alcohol or drug abuse patient.[facility]In the event this information is protected by the Federal Confidentiality of Alcohol and Drug Abuse Patient Records regulations: The Federal rules restrict any use of the information to criminally investigate or prosecute any alcohol or drug abuse patient.[facility] Hospital[facility] the event this information is protected by the Federal Confidentiality of Alcohol and Drug Abuse Patient Records regulations: The Federal rules restrict any use of the information to criminally investigate or prosecute any alcohol or drug abuse patient.[facility] HospitalIn the event this information is protected by the Federal Confidentiality of Alcohol and Drug Abuse Patient Records regulations: The Federal rules restrict any use of the information to criminally investigate or prosecute any alcohol or drug abuse patient.[facility] HospitalIn the event this information is protected by the Federal Confidentiality of Alcohol and Drug Abuse Patient Records regulations: The Federal rules restrict any use of the information to criminally investigate or prosecute any alcohol or drug abuse patient.[facility] Reason for Visit (unrecogniz ed section and content) Reason Comments Referral Request Reason Comments Release Of Medical Records Reason Comments Education Of Patient/family Reason Comments Refill Request Reason Comments Opened In Error Reason Comments Cough ST, congestion, sinu s pain and pressure x3 days Reason Comments Recheck 3 month follow up Reason Comments Diarrhea Reason Comments Fax referral and office notes Reason Comments 04-05-2022 [facility] Reason Onset Date Comments Refill Request 05/19/2022 Reason Comments Yearly Exam Reason Comments Recheck cyst on left breast and groin area, mammo and bone density order needed Reason Comments Orders Reason Comments Orders Reason Comments Consult Left nipple discharg e Reason Comments Recheck Follow up lump in gr oin Reason Comments Letter Reason Onset Date Comments Refill Request 08/11/2022 Reason Comments vaginal burning Reason Comments Results New Medication Reason Comments Patient Update Reason Comments Sore Throat Stuffy nose, coughin g up mucus x 2 daysCyst on left breast maybe infected x 3.5 months Reason Comments Results colonoscopy Reason Comments Recheck 6 month follow up Reason Onset Date Comments Refill Request 10/31/2022 Reason Comments STD Screening Reason Comments Results Reason Onset Date Comments Refill Request 02/02/2023 Reason Comments Patient Question Reason Comments ED Follow-up left breast abcess x 2 weeks Reason Comments Missed Appointment Reason Comments Medication Request Reason Comments Patient Update Numbness/Tingling Reason Comments ED Follow-up Reason Comments Results Reason Comments Itching Reason Comments Patient Question Orders Reason Onset Date Comments Refill Request 04/25/2023 Reason Onset Date Comments Refill Request 06/18/2023 Reason Comments Mammogram Order Reason Comments Bladder Problem Reason Comments Follow Up Breast infection, la st office visit 428/23 Reason Comments Follow Up Reason Onset Date Comments Refill Request 09/17/2023 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 Aaox4. Reason Comments Abscess Reports vaginal absc ess. Reports hx of them in the past and has to have it drained. Specialty Diagnoses / Procedures Referred By Contac t Referred To Contact Diagnoses General weakness History of substance abuse (HCC) Mental health problem Cellulitis, unspecified cellulitis site Roshan Kapadia MD [address] [place] [address] [facility] [address] [place] [address] Referral ID Status Reason Start Date Expiration Date Visits Re quested Visits Authorized [id number] 1 1 Reason Comments New patient, to establish relationship Reason Comments Care Coordination APPOINTMENT SCHEDULING Reason Onset Date Comments Referral to Specialist 02/21/2024 Specialty Diagnoses / Procedures Referred By Contac t Referred To Contact Radiology Diagnoses OUTSIDE CORRESPONDENCE Procedures MG IMPORTED IMAGES Kiet Flannery, [address] [place] [address] [place] [address] Referral ID Status Reason Start Date Expiration Date Visits Re quested Visits Authorized [id number] Closed 02/20/2024 02/19/2025 1 1 Reason Comments Care Coordination Left Message To Call Back Specialty Diagnoses / Procedures Referred By Contac t Referred To Contact Radiology Diagnoses Unspecified superficial injuries of breast, unspecified breast, initial encounter Procedures US BREAST/[place] [address] [place] [address] [facility] [place] [address] Referral ID Status Reason Start Date Expiration Date Visits Re quested Visits Authorized [id number] Closed 02/13/2024 02/12/2025 1 1 Specialty Diagnoses / Procedures Referred By Contac t Referred To Contact Radiology Diagnoses Unspecified superficial injuries of breast, unspecified breast, initial encounter Procedures MG MAMMO DIAG BILAT REMEDIOS W/CAD MG DIGITAL [place] [address] [place] [address] [facility] [address] [place] [address] Referral ID Status Reason Start Date Expiration Date Visits Re quested Visits Authorized [id number] Closed 02/13/2024 02/12/2025 1 1 Reason Comments New Patient Patient snores Reason Onset Date Comments Refill 02/20/2024 Reason Comments Care Coordination Cancel Appointment Reason Onset Date Comments [id number] Navigation (Research) Tobacco use 02/21/2024 Tobacco use 02/28/2024 Tobacco use 03/03/2024 Reason Comments Jury Duty Excuse Reason Comments Refill Request Not on her list Reason Comments Appointment Reason Comments Consult Left breast mass Reason Comments Patient Question Requesting antibioti c Reason Comments Breast Problem Reason Comments Request Outside Medical Records Reason Comments Psg Check In (Adult) Reason Comments Medication Question Reason Comments Radiology Invasive Breast Procedure Specialty Diagnoses / Procedures Referred By Sukh t Referred To Contact [facility] Diagnoses Breast disorder Procedures US BIOPSY BREAST LEFT BX BREAST W/DEVICE 1ST LESION ULTRASOUND GUID Minerva Hernadez MD [address] [address] [facility] [address] [place] [phone] Referral ID Status Reason Start Date Expiration Date V isits Requested Visits Authorized [id number] Closed Auto-Generate d Referral 04/17/2024 05/17/2025 1 1 Specialty Diagnoses / Procedures Referred By Sukh t Referred To Contact BR IMAGING Diagnoses Breast disorder Procedures US BIOPSY AXILLA LEFT BIOPSY MUSCLE PERCUTANEOUS NEEDLE BX/EXC LYMPH NODE NEEDLE SUPERFICIAL Minerva Hernadez MD [address] [address] [facility] [address] [place] [address] Referral ID Status Reason Start Date Expiration Date V isits Requested Visits Authorized [id number] Closed Auto-Generate d Referral 04/17/2024 05/17/2025 1 1 Reason Comments New Patient Saw ENT back in [place] but they found pre cancer cells in throat had blood clots that prevented her from moving forward with biopsy Reason Comments Establish Care Patient presenting t o establish as new patient with Ant Hodge Reason Comments New Patient Lesions on vocal cor d Reason Comments Hypertension Patient presenting f or 2 week follow up for hypertension and palpitations Reason Comments New Patient Reason Comments Cyst Left Breast. Patient states the cyst is not active at this moment. New Patient Reason Onset Date Comments Health Information 08/06/2024 Reason Comments Follow Up Throat lesions Reason Comments Other Bump on left breast for 6 years Reason Comments Other Boil on vagina area for 2 days. Reason Comments Other Fluid on left elbow noticed it this morning. 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 Patient states she had her nipple removed yesterday. Wound vac in place Reason Onset Date Comments Follow-up 11/03/2024 Reason Comments Post Op Visit 1 week post op breas t surgery Specialty Diagnoses / Procedures Referred By Sukh waldrop Referred To Contact General Surgery Diagnoses Post-operative state Luisa Singleton, GENERATOR SWITCHBOARD OPERATOR-HAND SCRAPER [address] [place] [address] Colby Pisano MD [address] [place] [phone] Referral ID Status Reason Start Date Expiration Date V isits Requested Visits Authorized [id number] New Request 11/01/2024 11/26/2025 1 1 Reason Onset Date Comments Refill Request 11/10/2024 Reason Comments Wound Check Arrived via [facility] reports home health unable to change wound vac dressing tonight. patient reports machine not working and was told to change to [id number] and see tomorrow at 11am Reason Onset Date Comments Medication Refill 11/10/2024 Reason Comments Follow-up Wound check post [facility] Reason Comments Follow-up Presenting for 3 mon th follow up for chronic diseaseHas pain of 7 in left breast and arm with rest and movement Reason Onset Date Comments Advice Only 11/17/2024 Reason Onset Date Comments Advice Only 11/18/2024 Reason Onset Date Comments Other 11/21/2024 Reason Onset Date Comments Cancellation 11/21/2024 Reason Comments Received Outside Medical Records Reason Comments Follow Up Left breast Reason Onset Date Comments Advice Only 11/19/2024 Reason Comments Establish Care Medication refills, re established, [facility] Reason Comments New Pain Ingrown Toenail Reason Comments Medication Refill Reason Comments Incision check Reason Onset Date Comments Refill Request 12/30/2024 Reason Comments Follow Up Breast abscess Reason Comments Yearly Exam Reason Onset Date Comments Refill Request 01/02/2025 Reason Comments Consult colonoscopy Reason Onset Date Comments Refill Request 01/01/2025 Reason Comments Scanned documents from previous pcp Reason Comments Patient Update Orders Reason Onset Date Comments Refill Request 01/28/2025 Reason Comments cyst on back Specialty Diagnoses / Procedures Referred By Contac t Referred To Contact General Surgery Diagnoses Infected sebaceous cyst Procedures CONSULT TO GENERAL SURGERY OFFICE/OUTPATIENT NEW HIGH MDM 60 MINUTES Isatu Nieto MD [address] [place] [address] Phone: tel: fax: Referral ID Status Reason Start Date Expiration Date V isits Requested Visits Authorized [id number] Closed PCP Requested Referral 02/12/2025 02/12/2026 1 1 Reason Comments New Patient Reason Onset Date Comments Refill Request 03/03/2025 Reason Comments Same Day Appointment left lower back esther n, twisted at work yesterday and had a shooting pain. Patient sees pain management at [facility] Reason Comments New Patient LCS Reason Onset Date Comments Results 03/09/2025 Care Teams (unrecognized sec tion and content) Handstitching Machine Collar Feller Relationship Specialty Start Date End Date Isatu Nieto MD [address] [place] [address] PCP - General Internal Medicine 10/03/18 Tina Woodard, DO [address] [place] [address] Fellow Breast Diseases 12/06/21 Handstitching Machine Collar Feller Relationship Specialty Start Date End Date Isatu Nieto MD [address] [place] [address] PCP - General Internal Medicine 10/03/18 Tina Woodard DO [address] [place] [address] Fellow Breast Diseases 12/06/21 Handstitching Machine Collar Feller Relationship Specialty Start Date End Date Isatu Nieto MD [address] [place] [address] PCP - General Internal Medicine 10/03/18 Tina Woodard DO [address] [place] [address] Fellow Breast Diseases 12/06/21 Handstitching Machine Collar Feller Relationship Specialty Start Date End Date sIatu Nieto MD [address] [facility] [place] [address] PCP - General Internal Medicine 10/03/18 Tina Woodard DO [address] [place] [address] Fellow Breast Diseases 12/06/21 Handstitching Machine Collar Feller Relationship Specialty Start Date End Date Isatu Nieto MD [address] [facility] [place] [address] PCP - General Internal Medicine 10/03/18 Tina Woodard DO [address] [place] [address] Fellow Breast Diseases 12/06/21 Handstitching Machine Collar Feller Relationship Specialty Start Date End Date Isatu Nieto MD [address] [place] [address] PCP - General Internal Medicine 10/03/18 Tina Woodard DO [address] [place] [address] Fellow Breast Diseases 12/06/21 Handstitching Machine Collar Feller Relationship Specialty Start Date End Date Isatu Nieto MD [address] [place] [address] PCP - General Internal Medicine 10/03/18 Tina Woodard DO [address] [place] [address] Fellow Breast Diseases 12/06/21 Handstitching Machine Collar Feller Relationship Specialty Start Date End Date Isatu Nieto MD [address] [place] [address] PCP - General Internal Medicine 10/03/18 Tina Woodard DO [address] [place] [address] Fellow Breast Diseases 12/06/21 Handstitching Machine Collar Feller Relationship Specialty Start Date End Date Isatu Nieto MD [address] [place] [address] PCP - General Internal Medicine 10/03/18 Tina Woodard DO [address] [place] [address] Fellow Breast Diseases 12/06/21 Handstitching Machine Collar Feller Relationship Specialty Start Date End Date Isatu Nieto MD [address] [place] [address] PCP - General Internal Medicine 10/03/18 Tina Woodard DO [address] [place] [address] Fellow Breast Diseases 12/06/21 Handstitching Machine Collar Feller Relationship Specialty Start Date End Date Isatu Nieto MD [address] [place] [address] PCP - General Internal Medicine 10/03/18 Tina Woodard DO [address] [place] [address] Fellow Breast Diseases 12/06/21 Handstitching Machine Collar Feller Relationship Specialty Start Date End Date Isatu Nieto MD [address] [place] [address] PCP - General Internal Medicine 10/03/18 Tina Woodard DO [address] [place] [address] Fellow Breast Diseases 12/06/21 Handstitching Machine Collar Feller Relationship Specialty Start Date End Date Isatu Nieto MD [address] [place] [address] PCP - General Internal Medicine 10/03/18 Tina Woodard DO [address] [place] [address] Fellow Breast Diseases 12/06/21 Handstitching Machine Collar Feller Relationship Specialty Start Date End Date Isatu Nieto MD [address] [place] [address] PCP - General Internal Medicine 10/03/18 Tina Woodard DO [address] [place] [address] Fellow Breast Diseases 12/06/21 Handstitching Machine Collar Feller Relationship Specialty Start Date End Date Isatu Nieto MD [address] [place] [address] PCP - General Internal Medicine 10/03/18 Tina Woodard DO [address] [place] [address] Fellow Breast Diseases 12/06/21 Handstitching Machine Collar Feller Relationship Specialty Start Date End Date Isatu Nieto MD [address] [place] [address] PCP - General Internal Medicine 10/03/18 Tina Woodard DO [address] [place] [address] Fellow Breast Diseases 12/06/21 Handstitching Machine Collar Feller Relationship Specialty Start Date End Date Isatu Nieto MD [address] [place] [address] PCP - General Internal Medicine 10/03/18 Tina Woodard DO [address] [place] [address] Fellow Breast Diseases 12/06/21 Handstitching Machine Collar Feller Relationship Specialty Start Date End Date Iastu Nieto MD [address] [place] [address] PCP - General Internal Medicine 10/03/18 Tina Woodard DO [address] [place] [address] Fellow Breast Diseases 12/06/21 Handstitching Machine Collar Feller Relationship Specialty Start Date End Date Isatu Nieot MD [address] [place] [address] PCP - General Internal Medicine 10/03/18 Tina Woodard DO [address] [place] [address] Fellow Breast Diseases 12/06/21 Handstitching Machine Collar Feller Relationship Specialty Start Date End Date Isatu Nieto MD [address] [place] [address] PCP - General Internal Medicine 10/03/18 Tina Woodard DO [address] [place] [address] Fellow Breast Diseases 12/06/21 Handstitching Machine Collar Feller Relationship Specialty Start Date End Date Isatu Niteo MD [address] [place] [address] PCP - General Internal Medicine 10/03/18 Tina Woodard DO [address] [place] [address] Fellow Breast Diseases 12/06/21 Handstitching Machine Collar Feller Relationship Specialty Start Date End Date Isatu Nieto MD [address] [place] [address] PCP - General Internal Medicine 10/03/18 Tina Woodard DO [address] [place] [address] Fellow Breast Diseases 12/06/21 Handstitching Machine Collar Feller Relationship Specialty Start Date End Date Isatu Nieto MD [address] [place] [address] PCP - General Internal Medicine 10/03/18 Tina Woodard DO [address] [place] [address] Fellow Breast Diseases 12/06/21 Handstitching Machine Collar Feller Relationship Specialty Start Date End Date Isatu Nieto MD [address] [facility] [place] [address] PCP - General Internal Medicine 10/03/18 Tina Woodard DO [address] [place] [address] Fellow Breast Diseases 12/06/21 Handstitching Machine Collar Feller Relationship Specialty Start Date End Date Isatu Nieto MD [address] [place] [address] PCP - General Internal Medicine 10/03/18 Tina Woodard DO [address] [place] [address] Fellow Breast Diseases 12/06/21 Handstitching Machine Collar Feller Relationship Specialty Start Date End Date Isatu Nieto MD [address] [place] [address] PCP - General Internal Medicine 10/03/18 Tina Woodard DO [address] [place] [address] Fellow Breast Diseases 12/06/21 Handstitching Machine Collar Feller Relationship Specialty Start Date End Date Isatu Nieto MD [address] [place] [address] PCP - General Internal Medicine 10/03/18 Tina Woodard DO [address] [place] [address] Fellow Breast Diseases 12/06/21 Handstitching Machine Collar Feller Relationship Specialty Start Date End Date Isatu Nieto MD [address] [place] [address] PCP - General Internal Medicine 10/03/18 Tina Woodard DO [address] [place] [address] Fellow Breast Diseases 12/06/21 Handstitching Machine Collar Feller Relationship Specialty Start Date End Date Isatu Nieto MD [address] [place] [address] PCP - General Internal Medicine 10/03/18 Tina Woodard DO [address] [place] [address] Fellow Breast Diseases 12/06/21 Handstitching Machine Collar Feller Relationship Specialty Start Date End Date Isatu Nieto MD [address] [place] [address] PCP - General Internal Medicine 10/03/18 Tina Woodard DO [address] [place] [facility] [place] [address] Fellow Breast Diseases 12/06/21 Handstitching Machine Collar Feller Relationship Specialty Start Date End Date Isatu Nieto MD [address] [place] [address] PCP - General Internal Medicine 10/03/18 Tina Woodard DO [address] [place] [address] Fellow Breast Diseases 12/06/21 Handstitching Machine Collar Feller Relationship Specialty Start Date End Date Isatu Nieto MD [address] [place] [address] PCP - General Internal Medicine 10/03/18 Tina Woodard DO [address] [place] [address] Fellow Breast Diseases 12/06/21 Handstitching Machine Collar Feller Relationship Specialty Start Date End Date Isatu Nieto MD [address] [place] [address] PCP - General Internal Medicine 10/03/18 Tina Woodard DO [address] [place], [place] [id number] [phone] Fellow Breast Diseases 12/06/21 Handstitching Machine Collar Feller Relationship Specialty Start Date End Date Isatu Nieto MD [address] [place] [address] PCP - General Internal Medicine 10/03/18 Tina Woodard DO [address] [place], [place] [id number] Fellow Breast Diseases 12/06/21 Handstitching Machine Collar Feller Relationship Specialty Start Date End Date Isatu Nieto MD [address] [place], [place] [address] [phone] PCP - General Internal Medicine 10/03/18 Tina Woodard DO [address] [place], [place] [id number] Fellow Breast Diseases 12/06/21 Handstitching Machine Collar Feller Relationship Specialty Start Date End Date Isatu Nieto MD [address] [place] [address] PCP - General Internal Medicine 10/03/18 Tina Woodard DO [address] [place] [address] Fellow Breast Diseases 12/06/21 Handstitching Machine Collar Feller Relationship Specialty Start Date End Date Isatu Nieto MD [address] [place] [address] PCP - General Internal Medicine 10/03/18 Tina Woodard DO [address] [place], [place] [id number] [phone] Fellow Breast Diseases 12/06/21 Handstitching Machine Collar Feller Relationship Specialty Start Date End Date Teresa Clay PA-C PCP - General Physician General Operations Agent 10/15/23 Handstitching Machine Collar Feller Relationship Specialty Start Date End Date Teresa Clay PA-C PCP - General Physician General Operations Agent 10/15/23 Handstitching Machine Collar Feller Relationship Specialty Start Date End Date Teresa Clay PA-C PCP - General Physician General Operations Agent 10/15/23 Handstitching Machine Collar Feller Relationship Specialty Start Date End Date Isatu Nieto MD [address] [place] [address] PCP - General Internal Medicine 10/03/18 Tina Woodard DO [address] [place], [place] [id number] Fellow Breast Diseases 12/06/21 Name Effective Dates (start - stop) Status Members No Information Handstitching Machine Collar Feller Relationship Specialty Start Date End Date Tina Woodard DO [address] [place] [address] Fellow Breast Diseases 12/06/21 Handstitching Machine Collar Feller Relationship Specialty Start Date End Date Isatu Nieto MD [address] [place] [address] PCP - General Internal Medicine 02/29/24 Tina Woodard DO [address] [place] [address] Fellow Breast Diseases 12/06/21 Handstitching Machine Collar Feller Relationship Specialty Start Date End Date Isatu Nieto MD [address] [place] [address] PCP - General Internal Medicine 02/29/24 Tina Woodard DO [address] [place], [place] [id number] Fellow Breast Diseases 12/06/21 Handstitching Machine Collar Feller Relationship Specialty Start Date End Date Endy De Anda MD [address] [place] [address] Physician Vascular Surgery 03/08/24 Kiet Flannery DO [address] [place] [address] Physician Radiology 03/08/24 Handstitching Machine Collar Feller Relationship Specialty Start Date End Date Milly Feliciano APRN.CNP [address] [place] [address] PCP - General Internal Medicine 02/28/24 02/28/24 Isatu Nieto MD [address] [place] [address] PCP - General Internal Medicine 02/29/24 Tina Woodard DO [address] [place], [place] [id number] Fellow Breast Diseases 12/06/21 Handstitching Machine Collar Feller Relationship Specialty Start Date End Date Isatu Nieto MD [address] [place] [address] PCP - General Internal Medicine 02/29/24 Tina Woodard DO [address] [place], [place] [id number] Fellow Breast Diseases 12/06/21 Handstitching Machine Collar Feller Relationship Specialty Start Date End Date Isatu Nieto MD [address] [place] [address] PCP - General Internal Medicine 02/29/24 Tina Woodard DO [address] [place] [address] Fellow Breast Diseases 12/06/21 Handstitching Machine Collar Feller Relationship Specialty Start Date End Date Isatu Nieto MD [address] [place] [address] PCP - General Internal Medicine 02/29/24 Tina Woodard DO [address] [place] [address] Fellow Breast Diseases 12/06/21 Handstitching Machine Collar Feller Relationship Specialty Start Date End Date Isatu Nieto MD [address] [place] [address] PCP - General Internal Medicine 02/29/24 Tina Woodard DO [address] [place] [address] Fellow Breast Diseases 12/06/21 Alverto Baig [address] [place] [address] Referring Ent - Otolaryngology 04/09/24 Handstitching Machine Collar Feller Relationship Specialty Start Date End Date Isatu Nieto MD [address] [place], [place] [address] PCP - General Internal Medicine 02/29/24 Tina Woodard DO [address] [place], [place] [id number] [phone] Fellow Breast Diseases 12/06/21 Alverto Baig [address] [place], [place] [address] Referring Ent - Otolaryngology 04/09/24 Handstitching Machine Collar Feller Relationship Specialty Start Date End Date Isatu Nieto MD [address] [place], [place] [id number] PCP - General Internal Medicine 02/29/24 Tina Woodard DO [address] [place], [place] [phone] Fellow Breast Diseases 12/06/21 Alverto Baig [address] [place], [place] 483461 Referring Ent - Otolaryngology 04/09/24 Handstitching Machine Collar Feller Relationship Specialty Start Date End Date Isatu Nieto MD [address] [place], [place] 832271 PCP - General Internal Medicine 02/29/24 Tina Woodard DO [address] [place] [address] Fellow Breast Diseases 12/06/21 Alverto Baig [address] [place], [place] 791008 [phone] Referring Ent - Otolaryngology 04/09/24 Handstitching Machine Collar Feller Relationship Specialty Start Date End Date Isatu Nieto MD [address] [place], [place] 778941 PCP - General Internal Medicine 10/03/18 Tina Woodard DO [address] [place] [address] Fellow Breast Diseases 12/06/21 Handstitching Machine Collar Feller Relationship Specialty Start Date End Date Isatu Nieto MD [address] [place] [address] PCP - General Internal Medicine 02/29/24 04/22/24 Lashae Rodrigues MD [address] [place] [phone] PCP - General Internal Medicine 04/23/24 Tina Woodard DO [address] [place] [address] Fellow Breast Diseases 12/06/21 Alverto Baig [address] [place], [place] 958421 Referring Ent - Otolaryngology 04/09/24 Handstitching Machine Collar Feller Relationship Specialty Start Date End Date Lashae Rodrigues MD [address] [place] [phone] PCP - General Internal Medicine 04/23/24 Tina Woodard DO [address] [place] [address] Fellow Breast Diseases 12/06/21 Alverto Baig [address] [place] [address] Referring Ent - Otolaryngology 04/09/24 Handstitching Machine Collar Feller Relationship Specialty Start Date End Date Lashae Rodrigues MD [address] [place] [phone] PCP - General Internal Medicine 04/23/24 Tina Woodard DO [address] [place], [place] [phone] Fellow Breast Diseases 12/06/21 Alverto Baig [address] [place] [address] Referring Ent - Otolaryngology 04/09/24 Handstitching Machine Collar Feller Relationship Specialty Start Date End Date Lashae Rodrigues MD [address] [place] [phone] PCP - General Internal Medicine 04/23/24 Tina Woodard DO [address] [place], [place] [phone] Fellow Breast Diseases 12/06/21 Alverto Baig [address] [place] [address] Referring Ent - Otolaryngology 04/09/24 Handstitching Machine Collar Feller Relationship Specialty Start Date End Date Lashae Rodrigues MD [address] [place] [phone] PCP - General Internal Medicine 04/23/24 Tina Woodard DO [address] [place], [place] [phone] Fellow Breast Diseases 12/06/21 Alverto Baig [address] [place] [address] Referring Ent - Otolaryngology 04/09/24 Handstitching Machine Collar Feller Relationship Specialty Start Date End Date Lashae Rodrigues MD [address] [place] [phone] PCP - General Internal Medicine 04/23/24 Tina Woodard DO [address] [place] [address] Fellow Breast Diseases 12/06/21 Alverto Baig [address] [place] [address] Referring Ent - Otolaryngology 04/09/24 Handstitching Machine Collar Feller Relationship Specialty Start Date End Date Lashae Rodrigues MD [address] [place] [phone] PCP - General Internal Medicine 04/23/24 Tina Woodard DO [address] [place] [address] Fellow Breast Diseases 12/06/21 Alverto Baig [address] [place] [address] Referring Ent - Otolaryngology 04/09/24 Handstitching Machine Collar Feller Relationship Specialty Start Date End Date Lashae Rodrigues MD [address], [place] [phone] PCP - General Internal Medicine 04/23/24 Tina Woodard DO [address] [place] [address] Fellow Breast Diseases 12/06/21 Alverto Baig [address] [place] [address] Referring Ent - Otolaryngology 04/09/24 Handstitching Machine Collar Feller Relationship Specialty Start Date End Date Lashae Rodrigues MD [address] [place] [phone] PCP - General Internal Medicine 04/23/24 Tina Woodard DO [address] [place], [place] [phone] Fellow Breast Diseases 12/06/21 Alverto Baig [address] [place] [address] Referring Ent - Otolaryngology 04/09/24 Handstitching Machine Collar Feller Relationship Specialty Start Date End Date Lashae Rodrigues MD [address] [place] [phone] PCP - General Internal Medicine 04/23/24 Tina Woodard DO [address] [place] [address] Fellow Breast Diseases 12/06/21 Alverto Baig [address] [place] [address] Referring Ent - Otolaryngology 04/09/24 Handstitching Machine Collar Feller Relationship Specialty Start Date End Date Ant Hodge APRN-HAND SCRAPER [address] [place] [address] PCP - General Nurse Practitioner - Family 07/21/24 Handstitching Machine Collar Feller Relationship Specialty Start Date End Date Isatu Nieto MD [address] [place], [place] 113411 PCP - General Internal Medicine 10/03/18 02/21/24 Tina Woodard DO [address] [place], [place] [phone] Fellow Breast Diseases 12/06/21 Handstitching Machine Collar Feller Relationship Specialty Start Date End Date Isatu Nieto MD [address] [place], [place] 159171 PCP - General Internal Medicine 10/03/18 02/21/24 Tina Woodard DO [address] [place] [address] Fellow Breast Diseases 12/06/21 Handstitching Machine Collar Feller Relationship Specialty Start Date End Date Isatu Nieto MD [address] [place], [place] 686331 PCP - General Internal Medicine 10/03/18 02/21/24 Tina Woodard DO [address] [place], [place] [phone] Fellow Breast Diseases 12/06/21 Handstitching Machine Collar Feller Relationship Specialty Start Date End Date Ant Hodge APRN-HAND SCRAPER [address] [place] [address] PCP - General Nurse Practitioner - Family 07/21/24 Handstitching Machine Collar Feller Relationship Specialty Start Date End Date Isatu Nieto MD [address] [place] [address] PCP - General Internal Medicine 10/03/18 02/21/24 Handstitching Machine Collar Feller Relationship Specialty Start Date End Date Ant Hodge APRN-HAND SCRAPER [address] [place] [address] PCP - General Nurse Practitioner - [facility] 07/21/24 Handstitching Machine Collar Feller Relationship Specialty Start Date End Date Lashae Rodrigues MD [address] [place] [phone] PCP - General Internal Medicine 04/23/24 Tina Woodard DO [address] [place], [place] [phone] Fellow Breast Diseases 12/06/21 Alverto Baig [address] [place], [place] 655511 Referring Ent - Otolaryngology 04/09/24 Handstitching Machine Collar Feller Relationship Specialty Start Date End Date Lashae Rodrigues MD [address] [place] [phone] PCP - General Internal Medicine 04/23/24 Tina Woodard DO [address] [place], [place] [phone] Fellow Breast Diseases 12/06/21 Alverto Baig [address] [place], [place] 441031 Referring Ent - Otolaryngology 04/09/24 Handstitching Machine Collar Feller Relationship Specialty Start Date End Date Ant Hodge APRN-CNP [address] [place] [address] PCP - General Nurse Practitioner - Family 07/21/24 Handstitching Machine Collar Feller Relationship Specialty Start Date End Date Endy De Anda MD [address] [place] [address] Physician Vascular Surgery 03/08/24 Kiet Flannery DO [address] [place] [address] Physician Radiology 03/08/24 Handstitching Machine Collar Feller Relationship Specialty Start Date End Date Ant Hodge CNP [address] [place] [phone] PCP - General Family Medicine 09/02/24 Tina Woodard DO [address] [place] [address] Fellow Breast Diseases 12/06/21 Alverto Baig [address] [place] [address] Referring Ent - Otolaryngology 04/09/24 Handstitching Machine Collar Feller Relationship Specialty Start Date End Date Ant Hodge APRN-CNP [address] [place] [address] PCP - General Nurse Practitioner - Family 07/21/24 Handstitching Machine Collar Feller Relationship Specialty Start Date End Date Ant Hodge APRN-CNP [address] [place] [address] PCP - General Nurse Practitioner - Family 07/21/24 Handstitching Machine Collar Feller Relationship Specialty Start Date End Date Ant Hodge APRN-HAND SCRAPER [address] [facility] [place] [address] PCP - General Nurse Practitioner - [facility] 07/21/24 Handstitching Machine Collar Feller Relationship Specialty Start Date End Date Ant Hodge LUZ ELENA Rios 24 [place] [address] PCP - General Nurse Practitioner 08/25/24 Handstitching Machine Collar Feller Relationship Specialty Start Date End Date NaveenAnt APRN-HAND SCRAPER [address] [place] [address] PCP - General Nurse Practitioner - [facility] 07/21/24 Handstitching Machine Collar Feller Relationship Specialty Start Date End Date Naveen Ant Rios CNP [address] [place] [address] PCP - General Nurse Practitioner 08/25/24 Handstitching Machine Collar Feller Relationship Specialty Start Date End Date Ant Hodge APRN-HAND SCRAPER [address] [place] [address] PCP - General Nurse Practitioner - [facility] 07/21/24 Handstitching Machine Collar Feller Relationship Specialty Start Date End Date Ant Hodge APRN-HAND SCRAPER [address] [place] [address] PCP - General Nurse Practitioner - [facility] 07/21/24 Handstitching Machine Collar Feller Relationship Specialty Start Date End Date Bitely Ant Rios CNP [address] [place] [address] PCP - General Nurse Practitioner 08/25/24 Handstitching Machine Collar Feller Relationship Specialty Start Date End Date NaveenAnt LUZ ELENA Hodeg [address] [place] [address] PCP - General Family Medicine 09/02/24 Tina Woodard DO [address] [place] [address] Fellow Breast Diseases 12/06/21 Alverto Baig [address] [place] [address] Referring Ent - Otolaryngology 04/09/24 Handstitching Machine Collar Feller Relationship Specialty Start Date End Date Ant Hodge APRN-CNP [address] [place] [address] PCP - General Nurse Practitioner - Family 07/21/24 Handstitching Machine Collar Feller Relationship Specialty Start Date End Date Ant Hodge APRN-CNP [address] [place] [address] PCP - General Nurse Practitioner - Family 07/21/24 Handstitching Machine Collar Feller Relationship Specialty Start Date End Date Ant Hodge APRN-CNP [address] [place] [address] PCP - General Nurse Practitioner - Family 07/21/24 Handstitching Machine Collar Feller Relationship Specialty Start Date End Date Ant Hodge APRN-CNP [address] [place] [address] PCP - General Nurse Practitioner - Family 07/21/24 Handstitching Machine Collar Feller Relationship Specialty Start Date End Date Ant Hodge APRN-CNP [address] [place] [address] PCP - General Nurse Practitioner - Family 07/21/24 Handstitching Machine Collar Feller Relationship Specialty Start Date End Date Ant Hodge Naveen, HAND SCRAPER [address] [place] [address] PCP - General Family Medicine 09/02/24 Tina Woodard DO [address] [place], [place] [phone] Fellow Breast Diseases 12/06/21 Alverto Baig [address] [place] [address] Referring Ent - Otolaryngology 04/09/24 Handstitching Machine Collar Feller Relationship Specialty Start Date End Date Ant Hodge Gabriel, LUZ ELENA [address] [place] [address] PCP - General Nurse Practitioner 08/25/24 Handstitching Machine Collar Feller Relationship Specialty Start Date End Date Ant HodgeSCOOBY-HAND SCRAPER [address] [place] [address] PCP - General Nurse Practitioner - Family 07/21/24 Handstitching Machine Collar Feller Relationship Specialty Start Date End Date Ant Hodge Naveen, HAND SCRAPER [address] [place] [address] PCP - General Family Medicine 09/02/24 Tina Woodard DO [address] [place], [place] [phone] Fellow Breast Diseases 12/06/21 Alverto Baig [address] [place], [place] 276211 Referring Ent - Otolaryngology 04/09/24 Handstitching Machine Collar Feller Relationship Specialty Start Date End Date Ant Hodge APRN-HAND SCRAPER [address] [place] [address] PCP - General Nurse Practitioner - Family 07/21/24 Handstitching Machine Collar Feller Relationship Specialty Start Date End Date Ant Hodge APRN-HAND SCRAPER [address] [place] [address] PCP - General Nurse Practitioner - Family 07/21/24 Handstitching Machine Collar Feller Relationship Specialty Start Date End Date Isatu Nieto MD [address] [place] [address] PCP - General Internal Medicine 11/25/24 Tina Woodard DO [address] [place], [place] [phone] Fellow Breast Diseases 12/06/21 Alverto Baig [address] [place] [address] Referring Ent - Otolaryngology 04/09/24 Handstitching Machine Collar Feller Relationship Specialty Start Date End Date Isatu Nieto MD [address] [place], [place] 414561 PCP - General Internal Medicine 11/25/24 Tina Woodard DO [address] [place], [place] [phone] Fellow Breast Diseases 12/06/21 Alverto Baig [address] [place], [place] 440531 Referring Ent - Otolaryngology 04/09/24 Handstitching Machine Collar Feller Relationship Specialty Start Date End Date Isatu Nieto MD [address] [place], [place] 705161 PCP - General Internal Medicine 11/25/24 Tina Woodard DO [address] [place], [place] [phone] Fellow Breast Diseases 12/06/21 Alverto Baig [address] [place], [place] 999401 Referring Ent - Otolaryngology 04/09/24 Handstitching Machine Collar Feller Relationship Specialty Start Date End Date Ant Hodge CNP [address] [place] [address] PCP - General Nurse Practitioner 08/25/24 Handstitching Machine Collar Feller Relationship Specialty Start Date End Date Isatu Nieto MD [address] [place], [place] 465061 PCP - General Internal Medicine 11/25/24 Tina Woodard DO [address] [place], [place] [phone] Fellow Breast Diseases 12/06/21 Alverto Baig [address] [place], [place] 518151 Referring Ent - Otolaryngology 04/09/24 Handstitching Machine Collar Feller Relationship Specialty Start Date End Date Isatu Nieto MD [address] [place] [address] PCP - General Internal Medicine 11/25/24 Tina Woodard DO [address] [place], [place] [phone] Fellow Breast Diseases 12/06/21 Alverto Baig [address] [place] [address] Referring Ent - Otolaryngology 04/09/24 Handstitching Machine Collar Feller Relationship Specialty Start Date End Date Isatu Nieto MD [address] [place] [address] PCP - General Internal Medicine 11/25/24 Tina Woodard DO [address] [place] [address] Fellow Breast Diseases 12/06/21 Alverto Baig [address] [place] [address] Referring Ent - Otolaryngology 04/09/24 Handstitching Machine Collar Feller Relationship Specialty Start Date End Date Isatu Nieto MD [address] [place] [address] PCP - General Internal Medicine 11/25/24 Tina Woodard DO [address] [place] [address] Fellow Breast Diseases 12/06/21 Alverto Baig [address] [place] [address] Referring Ent - Otolaryngology 04/09/24 Handstitching Machine Collar Feller Relationship Specialty Start Date End Date Isatu Nieto MD [address] [place] [address] PCP - General Internal Medicine 11/25/24 Tina Woodard DO [address] [place] [address] Fellow Breast Diseases 12/06/21 Alverto Baig [address] [place] [address] Referring Ent - Otolaryngology 04/09/24 Handstitching Machine Collar Feller Relationship Specialty Start Date End Date Isatu Nieto MD [address] [place] [address] PCP - General Internal Medicine 11/25/24 Tina Woodard DO [address] [place] [address] Fellow Breast Diseases 12/06/21 Alverto Baig [address] [place] [address] Referring Ent - Otolaryngology 04/09/24 Handstitching Machine Collar Feller Relationship Specialty Start Date End Date Isatu Nieto MD [address] [place] [address] PCP - General Internal Medicine 11/25/24 Tina Woodard DO [address] [place] [address] Fellow Breast Diseases 12/06/21 Alverto Baig [address] [place], [place] 704931 Referring Ent - Otolaryngology 04/09/24 Handstitching Machine Collar Feller Relationship Specialty Start Date End [place] [address] PCP - General Nurse Practitioner 08/25/24 Handstitching Machine Collar Feller Relationship Specialty Start Date End Date Isatu Nieto MD [address] [place], [place] 669941 PCP - General Internal Medicine 11/25/24 Tina Woodard DO [address] [place] [address] Fellow Breast Diseases 12/06/21 Alverto Baig [address] [place], [place] 327211 Referring Ent - Otolaryngology 04/09/24 Handstitching Machine Collar Feller Relationship Specialty Start Date End Date Isatu Nieto MD [address] [place], [place] 962561 PCP - General Internal Medicine 11/25/24 Tina Woodard DO [address] [place], [place] [phone] Fellow Breast Diseases 12/06/21 Alverto Baig [address] [place], [place] [phone] Referring Ent - Otolaryngology 04/09/24 Handstitching Machine Collar Feller Relationship Specialty Start Date End Date Isatu Nieto MD [address] [place] [address] PCP - General Internal Medicine 11/25/24 Tina Woodard DO [address] [place], [place] [phone] Fellow Breast Diseases 12/06/21 Alverto Baig [address] [place] [address] Referring Ent - Otolaryngology 04/09/24 Handstitching Machine Collar Feller Relationship Specialty Start Date End Date Isatu Nieto MD [address] [place] [address] PCP - General Internal Medicine 11/25/24 Tina Woodard DO [address] [place] [address] Fellow Breast Diseases 12/06/21 Alverto Baig [address] [place] [address] Referring Ent - Otolaryngology 04/09/24 Handstitching Machine Collar Feller Relationship Specialty Start Date End Date Isatu Nieto MD [address] [place] [address] PCP - General Internal Medicine 11/25/24 Tina Woodard DO [address] [place] [address] Fellow Breast Diseases 12/06/21 Alverto Baig [address] [place], [place] 553961 Referring Ent - Otolaryngology 04/09/24 Handstitching Machine Collar Feller Relationship Specialty Start Date End Date Isatu Nieto MD [address] [place], [place] 638951 PCP - General Internal Medicine 11/25/24 Tina Woodard DO [address] [place], [place] [phone] Fellow Breast Diseases 12/06/21 Alverto Baig [address] [place], [place] 352431 Referring Ent - Otolaryngology 04/09/24 Milly Feliciano APRN.HAND SCRAPER [address] [place] [address] Behavior Support Specialist Internal Medicine 01/16/25 Handstitching Machine Collar Feller Relationship Specialty Start Date End Date Isatu Nieto MD [address] [place] [address] PCP - General Internal Medicine 11/25/24 Tina Woodard DO [address] [place] [address] Fellow Breast Diseases 12/06/21 Alverto Baig [address] [place], [place] 164031 Referring Ent - Otolaryngology 04/09/24 Milly Feliciano APRN.HAND SCRAPER [address] [place], [place] 854152 Behavior Support Specialist Internal Medicine 01/16/25 Handstitching Machine Collar Feller Relationship Specialty Start Date End Date Isatu Nieto MD [address] [place], [place] 480391 PCP - General Internal Medicine 11/25/24 Tina Woodard DO [address] [place], [place] [phone] Fellow Breast Diseases 12/06/21 Alverto Baig [address] [place], [place] 855911 Referring Ent - Otolaryngology 04/09/24 Milly Feliciano APRN.HAND SCRAPER [address] [place] [address] Behavior Support Specialist Internal Medicine 01/16/25 Handstitching Machine Collar Feller Relationship Specialty Start Date End Date Isatu Nieto MD [address] [place], [place] 730541 PCP - General Internal Medicine 11/25/24 Tina Woodard DO [address] [place] [address] Fellow Breast Diseases 12/06/21 Alverto Baig [address] [place], [place] [id number] Referring Ent - Otolaryngology 04/09/24 Milly Feliciano APRN.HAND SCRAPER [address] [place], [place] 364471 Behavior Support Specialist Internal Medicine 01/16/25 Handstitching Machine Collar Feller Relationship Specialty Start Date End Date Isatu Nieto MD [address] [place], [place] 685941 PCP - General Internal Medicine 11/25/24 Tina Woodard DO [address] [place], [place] [phone] Fellow Breast Diseases 12/06/21 Alverto Baig [address] [place], [place] 514271 Referring Ent - Otolaryngology 04/09/24 Milly Feliciano APRN.HAND SCRAPER [address] [place], [place] 991581 Behavior Support Specialist Internal Medicine 01/16/25 Handstitching Machine Collar Feller Relationship Specialty Start Date End Date Isatu Nieto MD [address] [place], [place] 518181 PCP - General Internal Medicine 11/25/24 Tina Woodard DO [address] [place] [address] Fellow Breast Diseases 12/06/21 Alverto Baig [address] [place], [place] 993801 Referring Ent - Otolaryngology 04/09/24 Milly Feliciano APRN.HAND SCRAPER [address] [place] [address] Behavior Support Specialist Internal Medicine 01/16/25 Handstitching Machine Collar Feller Relationship Specialty Start Date End Date Isatu Nieto MD [address] [place] [address] PCP - General Internal Medicine 11/25/24 Tina Woodard DO [address] [place] [address] Fellow Breast Diseases 12/06/21 Alverto Baig [address] [place] [address] Referring Ent - Otolaryngology 04/09/24 Milly Feliciano APRN.HAND SCRAPER [address] [place] [address] Behavior Support Specialist Internal Medicine 01/16/25 Handstitching Machine Collar Feller Relationship Specialty Start Date End Date Isatu Nieto MD [address] [place] [address] PCP - General Internal Medicine 11/25/24 Tina Woodard DO [address] [place] [address] Fellow Breast Diseases 12/06/21 Alverto Baig [address] [place] [address] Referring Ent - Otolaryngology 04/09/24 Milly Feliciano APRN.HAND SCRAPER [address] [place], [place] 705091 [phone] Behavior Support Specialist Internal Medicine 01/16/25 Handstitching Machine Collar Feller Relationship Specialty Start Date End Date Isatu Nieto MD [address] [place], [place] 208151 [phone] PCP - General Internal Medicine 11/25/24 Tina Woodard DO [address] [place], [place] [phone] Fellow Breast Diseases 12/06/21 Alverto Baig [address] [place], [place] 417961 Referring Ent - Otolaryngology 04/09/24 Braden, Milly, GENERATOR SWITCHBOARD OPERATOR.HAND SCRAPER [address] [place] [address] Behavior Support Specialist Internal Medicine 01/16/25 Handstitching Machine Collar Feller Relationship Specialty Start Date End Date Isatu Nieto MD [address] [place] [address] PCP - General Internal Medicine 11/25/24 Tina Woodard DO [address] [place] [address] Fellow Breast Diseases 12/06/21 Alverto Baig [address] [place], [place] 857161 Referring Ent - Otolaryngology 04/09/24 Milly Feliciano, GENERATOR SWITCHBOARD OPERATOR.HAND SCRAPER [address] [place] [address] Behavior Support Specialist Internal Medicine 01/16/25 Handstitching Machine Collar Feller Relationship Specialty Start Date End Date Isatu Nieto MD [address] [place] [address] PCP - General Internal Medicine 11/25/24 Tina Woodard DO [address] [place], [place] [phone] Fellow Breast Diseases 12/06/21 Alverto Baig [address] [place], [place] 400921 Referring Ent - Otolaryngology 04/09/24 Milly Feliciano, SCOOBY.HAND SCRAPER [address] [place], [place] 652821 Behavior Support Specialist Internal Medicine 01/16/25 Handstitching Machine Collar Feller Relationship Specialty Start Date End Date Isatu Nieto MD [address] [place], [place] 184021 PCP - General Internal Medicine 11/25/24 Tina Woodard DO [address] [place] [address] Fellow Breast Diseases 12/06/21 Alverto Baig [address] [place], [place] 475431 Referring Ent - Otolaryngology 04/09/24 Milly Feliciano, GENERATOR SWITCHBOARD OPERATOR.HAND SCRAPER [address] [place] [address] Behavior Support Specialist Internal Medicine 01/16/25 Handstitching Machine Collar Feller Relationship Specialty Start Date End Date Isatu Nieto MD [address] [place] [address] PCP - General Internal Medicine 11/25/24 Tina Woodard DO [address] [place] [address] Fellow Breast Diseases 12/06/21 Alverto Baig [address] [place] [address] Referring Ent - Otolaryngology 04/09/24 Older, APRN. MillyHAND SCRAPER [address] [place] [address] Behavior Support Specialist Internal Medicine 01/16/25 Goals (unrecognized section and content) Health Concern Goal Type Priority Status No Information Scheduled Active and Recently Administ ered Medications (unrecognized section and content) Medication Order 10/24/2023 10/25/2023 10/26/2023 loperamide (IMODIUM) capsule 2 mg (COMPLETED) 2 mg, Oral, ONCE, 1 dose, On Sun10/26/23 at 1515, After each loose stool. 1519 (Given - Provid er: Tiff Prajapati RN) Scheduled Medication Order 12/17/2023 12/18/2023 12/19/2023 amoxicillin-clavulanate (AUGMENTIN) 875-125 MG per tablet 1 tablet 1 tablet, Oral, EVERY 12 HOURS SCHEDULED (2 times per day), 14 doses, First dose on 12/16/23 at 2100, Last dose on 12/23/23 at 0900, Antimicrobial Indications: Skin and Soft Tissue Infection, Skin duration of therapy: 7 days 0954 (Given - Provider: Destiny Wright RN)211 (Given - Provider: Russell Gonzalez, SOLOMON) 08 (Given - Provider: Destiny Wright, RN)210 (Given - Provider: Avinash Rodriguez, SOLOMON) 0842 (Given - Provider: Luisa Gómez, SOLOMON)2100 (Due) aspirin EC tablet 81 mg 81 mg, Oral, DAILY, First dose on Sun12/14/23 at 1400, Until Discontinued, Do not crush or break. 0949 (Given - Provider: Destiny Wright RN) 0819 (Given - Provider: Destiny Wright RN) 0842 (Given - Provider: Luisa Gómez RN) cetirizine (ZYRTEC) tablet 10 mg 10 mg, Oral, DAILY, First dose on Sun12/18/23 at 1830, Until Discontinued, Substituted for Loratadine (CLARITIN). 1842 (Given - Provider: Destiny Wright, RN) 0842 (Given - Provider: Luisa Gómez, SOLOMON) cilostazol (PLETAL) tablet 100 mg 100 mg, Oral, 2 TIMES DAILY, First dose on Sun12/14/23 at 1400, Until Discontinued 09 (Given - Provider: Destiny Wright, RN)2114 (Given - Provider: Russell Gonzalez, SOLMOON) 08 (Given - Provider: Destiny Wright, RN)2119 (Given - Provider: Avinash Rodriguez RN) 841 (Given - Provider: Luisa Gómez, SOLOMON)2099 (Due) cloNIDine (CATAPRES) tablet 0.1 mg 0.1 mg, Oral, 2 TIMES DAILY, First dose on Sun12/18/23 at 2100, Until Discontinued, Hold if SBP <100 2107 (Given - Provider: Avinash Rodriguez RN) 842 (Given - Provider: Luisa Gómez RN)2099 (Due) diphenhydrAMINE (BENADRYL) tablet 50 mg (COMPLETED) 50 mg, Oral, ONCE, 1 dose, On Sun12/17/23 at 1945 2114 (Given - Provider: Russell Gonzalez, SOLOMON) gabapentin (NEURONTIN) capsule 200 mg 200 mg, Oral, NIGHTLY, First dose on Sun12/18/23 at 2100, Until Discontinued 2107 (Given - Provider: Avinash Rodriguez RN) 2099 (Due) miconazole (MICOTIN) 2 % vaginal cream 1 applicator 1 applicator, Vaginal, Nightly, 7 doses, First dose on 12/16/23 at 2100, Last dose on 12/22/23 at 2100, Therapeutic interchange for Clotrimazole vaginal cream 2115 (Given - Provider: Russell Gonzalez RN) 2120 (Given - Provider: Avinash Rodriguez RN) 2099 (Due) mirtazapine (REMERON) tablet 30 mg 30 mg, Oral, NIGHTLY, First dose on Sun12/18/23 at 2100, Until Discontinued 2107 (Given - Provider: Avinash Rodriguez RN) 2100 (Due) pantoprazole (PROTONIX) tablet 40 mg 40 mg, Oral, DAILY BEFORE BREAKFAST, First dose on Sun12/14/23 at 0700, Until Discontinued, Do not crush or break. Substituted for Omeprazole (PRILOSEC). 0635 (Not Given - Provider: Liliam Mckeon RN - Reason: Patient/family refused) 0556 (Given - Provider: Russell Gonzalez RN) 05 (Given - Provider: Russell Gonzalez RN) rivaroxaban (XARELTO) tablet 20 mg 20 mg, Oral, DAILY WITH BREAKFAST, First dose on Sun12/14/23 at 0800, Until Discontinued, Indication of Use: Treatment-DVT/PE, Administer doses GREATER THAN or EQUAL to 15 mg with food; doses of 2.5 mg and 10 mg may be administered without regard to meals. 0949 (Given - Provider: Destiny Wright RN) 0819 (Given - Provider: Destiny Wright RN) 0843 (Given - Provider: Luisa Gómez RN) sodium chloride flush 0.9 % injection 5-40 mL 5-40 mL, IntraVENous, EVERY 12 HOURS SCHEDULED (2 times per day), First dose on Sun12/14/23 at 0900, Until Discontinued, For Line Patency: Peripheral IV = 5 mL; Midline or Central Line = 10 mL/lumen. If following IV push medication, administer flush at same rate as the IV push. Flush volume is determined by type of infusion therapy being given. For non-viscous solutions use: Peripheral IV = 5 mL Midline or Central Line = 10 mL/lumen For viscous solutions (i.e. blood components, parenteral nutrition, contrast media, or after obtaining blood sample) use: Peripheral IV = 10 mL Midline or Central Line = 20 mL/lumen 0950 (Given - Provider: Destiny Wright RN)2114 (Given - Provider: Russlel Gonzalez RN) 08 (Given - Provider: Destiny Wright RN)210 (Given - Provider: Avinash Rodriguez RN) 0843 (Given - Provider: Luisa Gómez, SOLOMON)2100 (Due) PRN Medication Order 12/17/2023 12/18/2023 12/19/2023 0.9 % sodium chloride infusion IntraVENous, at 5-250 mL/hr, PRN, if patient receiving piggyback infusions and maintenance fluids are not ordered OR KVO fluids to protect IV site / prevent frequent line interruptions/ long duration, Starting on Sun12/14/23 at 0209, For piggyback infusion, administer at same rate as piggyback for a total of 25 mL. Enter 25 mL into dose field and piggyback rate into rate field of order. If piggyback is infusing at a rate less than 100 mL/hr, enter 25 mL into dose field and 100 mL/hr into rate field of order. For KVO fluids, enter rate of 20 mL/hr or less into rate field of order. acetaminophen (TYLENOL) suppository 650 mg(Linked Group 1) 650 mg, Rectal, EVERY 6 HOURS PRN, Starting on Sun12/14/23 at 0209, Until Discontinued, Pain Mild (1-3), Fever, For temp greater than 100.4 F (38 C), Administer if oral route cannot be used. 0203 (See Alternative - Provider: Liliam Mckeon RN)0949 (See Alternative - Provider: Destiny Wright RN)1646 (See Alternative - Provider: Alyx Escamilla)2349 (See Alternative - Provider: Russell Gonzalez RN) 0559 (See Alternative - Provider: Russell Gonzalez RN)1357 (See Alternative - Provider: Destiny Wright RN) 0100 (See Alternative - Provider: Russell Gonzalez RN) acetaminophen (TYLENOL) tablet 650 mg(Linked Group 1) 650 mg, Oral, EVERY 6 HOURS PRN, Starting on Sun12/14/23 at 0209, Until Discontinued, Pain Mild (1-3), Fever, For temp greater than 100.4 F (38 C), Maximum dose of acetaminophen is 4000 mg from all sources in 24 hours. 0203 (Given - Provider: Liliam Mckeon RN)0949 (Given - Provider: Destiny Wright RN)1646 (Given - Provider: Alyx Escamilla)2349 (Given - Provider: Russell Gonzalez RN) 0559 (Given - Provider: Russell Gonzalez RN)1357 (Given - Provider: Destiny Wright RN) 0100 (Given - Provider: Russell Gonzalez RN) aluminum & magnesium hydroxide-simethicone (MAALOX) 200-200-20 MG/5ML suspension 30 mL 30 mL, Oral, EVERY 6 HOURS PRN, Starting on Sun12/14/23 at 0209, Until Discontinued, Indigestion diphenhydrAMINE (BENADRYL) tablet 25 mg 25 mg, Oral, EVERY 6 HOURS PRN, Starting on Tu12/18/23 at 1733, Until Discontinued, Itching hydrocortisone 1 % cream Topical, 2 TIMES DAILY PRN, Dermatitis, Starting on Sun12/17/23 at 1917, For 5 doses, Apply to skin. ketorolac (TORADOL) injection 15 mg () 15 mg, IntraVENous, EVERY 8 HOURS PRN, Starting on 12/15/23 at 0900, Until Sun12/17/23 at 0859, Pain Severe (7-10), Do not administer for more than 5 days. 0203 (Given - Provider: Liliam Mckeon RN) ketorolac (TORADOL) injection 15 mg 15 mg, IntraVENous, EVERY 6 HOURS PRN, Starting on Sun12/17/23 at 2310, Until Sun12/19/23 at 2309, Pain Severe (7-10), Do not administer for more than 5 days. 2349 (Given - Provider: Russell Gonzalez RN) 0559 (Given - Provider: Russell Gonzalez RN)1356 (Given - Provider: Destiny Wright RN)2120 (Given - Provider: Avinash Rodriguez, SOLOMON) 0527 (Given - Provider: Russell Gonzalez RN)1217 (Given - Provider: Luisa Gómez RN) magnesium sulfate 2000 mg in 50 mL IVPB premix 2,000 mg, IntraVENous, at 25 mL/hr, Administer over 2 Hours, PRN, Other, Magnesium Replacement, Starting on Sun12/14/23 at 0209, Mag Lab Replacement Action 1.4-1.6 mg/dL 2,000 mg Total Dose Given as 1,000 mg IVPB x 2 doses or 2,000 mg IVPB x 1 dose 1.0-1.3 mg/dL 4,000 mg Total Dose Given as 1,000 mg IVPB x 4 doses or 2,000 mg IVPB x 2 doses Less than 1.0 mg/dL CALL PHYSICIAN and give 4,000 mg Total Dose Given as 1,000 mg IVPB x 4 doses or 2,000 mg IVPB x 2 doses Infuse at 1,000 mg/hr Repeat Mag level next AM Protocol not for use in Patients with CrCl less than 30ml/min melatonin tablet 3 mg 3 mg, Oral, NIGHTLY PRN, Starting on Sun12/17/23 at 1918, Until Discontinued, Sleep ondansetron (ZOFRAN) injection 4 mg(Linked Group 2) 4 mg, IntraVENous, EVERY 6 HOURS PRN, Starting on Sun12/14/23 at 0209, Until Discontinued, Nausea, Vomiting, Administer if oral route cannot be used. ondansetron (ZOFRAN-ODT) disintegrating tablet 4 mg(Linked Group 2) 4 mg, Oral, EVERY 8 HOURS PRN, Starting on Sun12/14/23 at 0209, Until Discontinued, Nausea, Vomiting potassium bicarb-citric acid (EFFER-K) effervescent tablet 40 mEq(Linked Group 3) 40 mEq, Oral, PRN, Starting on Sun12/14/23 at 0209, Until Discontinued, Per Potassium Replacement Protocol, Administer as alternative if patient unable to tolerate oral tablet. K Lab Replacement Action 3.1 to 3.5 40 mEq ORAL x 1 Under 3.1 Refer to IV replacement protocol Recheck K level in AM. Protocol not for use in patients with CrCl less than 30 mL/min. Do not chew or crush. Dissolve flavored tablets completely in 3 to 4 ounces of cold water; unflavored tablets may be dissolved in 3 to 4 ounces of cold juice. Patient to sip slowly over a 5 to 10 minute period. May further dilute if GI adverse effects occur. potassium chloride (KLOR-CON M) extended release tablet 40 mEq(Linked Group 3) 40 mEq, Oral, PRN, Starting on Sun12/14/23 at 0209, Until Discontinued, Potassium Replacement, May give alternative linked oral order (ordered as effervescent, packet, or liquid solution) if patient unable to tolerate tablet. K Lab Replacement Action 3.1 to 3.5 40 mEq ORAL x 1 Under 3.1 Refer to IV replacement protocol Recheck K level in AM. Protocol not for use in patients with CrCl less than 30 mL/min. Do not crush, chew, or suck on tablet. Tablet may also be broken in half and each half swallowed separately. potassium chloride 10 mEq/100 mL IVPB (Peripheral Line)(Linked Group 3) 10 mEq, IntraVENous, PRN, Starting on Sun12/14/23 at 0209, Until Discontinued, at 100 mL/hr, Potassium Replacement, K Lab Replacement Action 2.7 to 3.0 10 mEq IVPB x 6 doses (60 mEq Total) Under 2.7 CALL PROVIDER and administer 10 mEq IVPB x 6 doses (60 mEq Total) Infuse at 10 mEq/hr. Repeat Potassium lab 1 hour after final administration. Protocol not for use in patients with CrCl less than 30 mL/min. senna (SENOKOT) tablet 8.6 mg 8.6 mg (1 tablet), Oral, DAILY PRN, Starting on Sun12/14/23 at 0209, Until Discontinued, Constipation, First line therapy for constipation sodium chloride (OCEAN, BABY AYR) 0.65 % nasal spray 1 spray 1 spray, Each Nostril, PRN, Starting on Sun12/15/23 at 0956, Until Discontinued, Congestion sodium chloride flush 0.9 % injection 5-40 mL 5-40 mL, IntraVENous, PRN, Starting on Sun12/14/23 at 0209, Until Discontinued, Line Care, After every IV line use, For Line Patency: Peripheral IV = 5 mL; Midline or Central Line = 10 mL/lumen. If following IV push medication, administer flush at same rate as the IV push. Flush volume is determined by type of infusion therapy being given. For non-viscous solutions use: Peripheral IV = 5 mL Midline or Central Line = 10 mL/lumen For viscous solutions (i.e. blood components, parenteral nutrition, contrast media, or after obtaining blood sample) use: Peripheral IV = 10 mL Midline or Central Line = 20 mL/lumen Linked Groups Order Group 1: acetaminophen (TYLENOL) tablet 650 mgJump to med 650 mg, Oral, EVERY 6 HOURS PRN, Starting on Sun12/14/23 at 0209, Until Discontinued, Pain Mild (1-3), Fever, For temp greater than 100.4 F (38 C)
Maximum dose of acetaminophen is 4000 mg from all sources in 24 hours.
Or acetaminophen (TYLENOL) suppository 650 mgJump to med 650 mg, Rectal, EVERY 6 HOURS PRN, Starting on Sun12/14/23 at 0209, Until Discontinued, Pain Mild (1-3), Fever, For temp greater than 100.4 F (38 C)
Administer if oral route cannot be used.
Group 2: ondansetron (ZOFRAN-ODT) disintegrating tablet 4 mgJump to med 4 mg, Oral, EVERY 8 HOURS PRN, Starting on Sun12/14/23 at 0209, Until Discontinued, Nausea, Vomiting Or ondansetron (ZOFRAN) injection 4 mgJump to med 4 mg, IntraVENous, EVERY 6 HOURS PRN, Starting on Sun12/14/23 at 0209, Until Discontinued, Nausea, Vomiting
Administer if oral route cannot be used.
Group 3: potassium chloride (KLOR-CON M) extended release tablet 40 mEqJump to med 40 mEq, Oral, PRN, Starting on Sun12/14/23 at 0209, Until Discontinued, Potassium Replacement
May give alternative linked oral order (ordered as effervescent, packet, or liquid solution) if patient unable to tolerate tablet. K Lab Repla cemen t Action 3.1 to 3.5 40 mEq ORAL x 1 Under 3.1 Refer to IV replacement protocol Recheck K level in AM. Protocol not for use in patients with CrCl less than 30 mL/min. Do not crush, chew, or suck on tablet. Tablet may also be broken in half and each half swallowed separately.
Or potassium bicarb-citric acid (EFFER-K) effervescent tablet 40 mEqJump to med 40 mEq, Oral, PRN, Starting on Sun12/14/23 at 0209, Until Discontinued, Per Potassium Replacement Protocol
Administer as alternative if patient unable to tolerate oral tablet. K Lab Repla cemen t Action 3.1 to 3.5 40 mEq ORAL x 1 Under 3.1 Refer to IV replacement protocol Recheck K level in AM. Protocol not for use in patients with CrCl less than 30 mL/min. Do not chew or crush. Dissolve flavored tablets completely in 3 to 4 ounces of cold water; unflavored tablets may be dissolved in 3 to 4 ounces of cold juice. Patient to sip slowly over a 5 to 10 minute period. May further dilute if GI adverse effects occur.
Or potassium chloride 10 mEq/100 mL IVPB (Peripheral Line)Jump to med 10 mEq, IntraVENous, PRN, Starting on Sun12/14/23 at 0209, Until Discontinued, at 100 mL/hr, Potassium Replacement
K Lab Replacement Action 2.7 to 3.0 10 mEq IVPB x 6 doses (60 mEq Total) Under 2.7 CALL PROVIDER and administer 10 mEq IVPB x 6 doses (60 mEq Total) Infuse at 10 mEq/hr. Repeat Potassium lab 1 hour after final administration. Protocol not for use in patients with CrCl less than 30 mL/min.
Scheduled Medication Order 09/24/2024 09/25/2024 09/26/2024 acetaminophen (TYLENOL) tablet 1,000 mg (COMPLETED) 1,000 mg, Oral, ONCE, 1 dose, On Sun09/26/24 at 1015, With a sip of water on arrival to holding, Pre-op/Pre-Proc 1033 (Given - Provid er: Padmini Hoyt RN) ceFAZolin (ANCEF) 2 g in dextrose 100 mL premix IVPB (COMPLETED) 2 g, Intravenous, Administer over 15 Minutes, ONCE, 1 dose, On Sun09/26/24 at 1015, Administer in surgical area only - do not administer on the floor, Pre-op/Pre-Proc 1400 ($$New Bag$$ - Provider: Lele Owusu APRN-SENIOR MARKETING MANAGER) Celecoxib (CELEBREX) capsule 400 mg (COMPLETED) 400 mg, Oral, ONCE, 1 dose, On Sun09/26/24 at 1015, With a sip of water on arrival to holding, Pre-op/Pre-Proc 1033 (Given - Provid er: Padmini Hoyt RN) Gabapentin (NEURONTIN) capsule 600 mg (COMPLETED) 600 mg, Oral, ONCE, 1 dose, On Sun09/26/24 at 1015, With a sip of water on arrival to holding, Pre-op/Pre-Proc 1033 (Given - Provid er: Padmini Hoyt RN) Heparin injection 5,000 Units (COMPLETED) 5,000 Units, Subcutaneous, ONCE, 1 dose, On Sun09/26/24 at 1015, Day of Surgery, Pre-op/Pre-Proc 1033 (Given - Provid er: Padmini Hoyt RN) Continuous Medication Order 09/24/2024 09/25/2024 09/26/2024 Lactated ringers IV solution Intravenous, at 75 mL/hr, CONTINUOUS, Starting on Sun09/26/24 at 1015, Until Sun09/26/24 at 1801, Pre-op/Pre-Proc 1100 ($$New Bag$$ - Provider: Emilia Jaramillo LPN)1505 (Stopped - Provider: Padmini Hoyt RN) PRN Medication Order 09/24/2024 09/25/2024 09/26/2024 BUPivacaine (PF) (MARCAINE) 0.5 % injection (CANCELED) NEEDED, Starting on Sun09/26/24 at 1429, Until Sun09/26/24 at 1451, Intra-op/Intra-Proc 1429 (Given - Provid er: Colby Pisano MD - Comment: given to [facility]) Scheduled Medication Order 10/28/2024 10/29/2024 10/30/2024 acetaminophen (TYLENOL) tablet 1,000 mg (COMPLETED) 1,000 mg, Oral, ONCE, 1 dose, On Nadja 10/30/24 at 0945, With a sip of water on arrival to holding, Pre-op/Pre-Proc 1029 (Given - Provid er: Marisabel Ching RN) ceFAZolin (ANCEF) 2 g in dextrose 100 mL premix IVPB (COMPLETED) 2 g, Intravenous, Administer over 15 Minutes, ONCE, 1 dose, On Nadja 10/30/24 at 1100, Administer in surgical area only - do not administer on the floor, Pre-op/Pre-Proc 1131 ($$New Bag$$ - Provider: Nancy Vernon APRN-SENIOR MARKETING MANAGER - Comment: PSR, s/p negative test dose) Celecoxib (CELEBREX) capsule 400 mg (COMPLETED) 400 mg, Oral, ONCE, 1 dose, On Nadja 10/30/24 at 0945, With a sip of water on arrival to holding, Pre-op/Pre-Proc 1029 (Given - Provid er: Marisabel Ching RN) Gabapentin (NEURONTIN) capsule 600 mg (COMPLETED) 600 mg, Oral, ONCE, 1 dose, On Nadja 10/30/24 at 0945, With a sip of water on arrival to holding, Pre-op/Pre-Proc 1029 (Given - Provid er: Marisabel Ching RN) Heparin injection 5,000 Units (COMPLETED) 5,000 Units, Subcutaneous, ONCE, 1 dose, On Nadja 10/30/24 at 0945, Day of Surgery, Pre-op/Pre-Proc 1028 (Given - Provid er: Marisabel Ching RN) HYDROmorphone (DILAUDID) injection 1 mg 1 mg, Intravenous, ONCE, 1 dose, On Nadja 10/30/24 at 1245, Post-op/Post-Proc 1245 (Canceled Entry - Provider: System Discharge - Comment: Automatically canceled at discontinue of medication order) Continuous Medication Order 10/28/2024 10/29/2024 10/30/2024 Lactated ringers IV solution Intravenous, at 75 mL/hr, CONTINUOUS, Starting on Nadja 10/30/24 at 0945, Until Nadja 10/30/24 at 1550, Pre-op/Pre-Proc 1028 ($$New Bag$$ - Provider: Marisabel Ching, RN)1330 (Stopped - Provider: Cori Mondragon RN) PRN Medication Order 10/28/2024 10/29/2024 10/30/2024 BUPivacaine (MARCAINE) 0.5 % injection (CANCELED) NEEDED, Starting on Nadja 10/30/24 at 1229, Until Nadja 10/30/24 at 1230, Intra-op/Intra-Proc 1229 (Given - Provid er: Colby Pisano MD) Sodium chloride 0.9 % irrigation (CANCELED) NEEDED, Starting on Nadja 10/30/24 at 1230, Until Nadja 10/30/24 at 1230, Intra-op/Intra-Proc 1230 (Given - Provid er: Colby Pisano MD) Scheduled Medication Order 11/08/2024 11/09/2024 11/10/2024 acetaminophen (TYLENOL) tablet 1,000 mg (COMPLETED) 1,000 mg, Oral, ONCE, 1 dose, On Sun11/10/24 at 2100, Maximum dose of acetaminophen is 4000 mg from all sources in 24 hours. 2038 (Given - Provid er: Trina Jones RN) Gabapentin (NEURONTIN) capsule 200 mg (COMPLETED) 200 mg, Oral, ONCE, 1 dose, On Sun11/10/24 at 2100 2038 (Given - Provid er: Trina Jones RN) Ordered Prescriptions (unrec ognized section and content) Prescription Sig Dispensed Refills Start Date End Da te miconazole (MICOTIN) 2 % vaginal cream Place vaginally nightly. 1 12/19/2023 amoxicillin-clavulanate (AUGMENTIN) 875-125 MG per tablet Take 1 tablet by mouth every 12 hours for 8 doses 8 tablet 0 12/19/2023 12/23/2023 cilostazol (PLETAL) 100 MG tablet Take 1 tablet by mouth 2 times daily 60 tablet 3 12/18/2023 hydrocortisone 1 % cream Apply topically 2 times daily. 30 g 1 12/18/2023 gabapentin (NEURONTIN) 100 MG capsule Take 2 capsules by mouth nightly for 45 days. 90 capsule 0 12/18/2023 02/01/2024 aspirin 81 MG EC tablet Take 1 tablet by mouth daily 30 tablet 3 12/19/2023 FOR RECORDS PERTAINING TO PATIENTS WHO ARE OR HAVE BEEN ENROLLED IN A CHEMICAL DEPENDENCY/SUBSTANCEABUSE PROGRAM, SOME INFORMATION MAY BE OMITTED. This clinical summary was aggregated from multiple sources. Caution should be exercised in using it in the provision of clinical care. This summary normalizes information from multiple sources, and as a consequence, information in this document may materially change the coding, format and clinical context of patient data. In addition, data may be omitted in some cases. CLINICAL DECISIONS SHOULD BE BASED ON THE PRIMARY CLINICAL RECORDS. [employer] provides no warranty or guarantee of the accuracy or completeness of information in this document.
[2025-04-17 02:57] VITALS: BP 156/93; PULSE 85; RESP 18; TEMP 36.8; O2SAT 98
== END 2025-04-17 02:59 | disposition home or self-care (01) ==
PROVIDERS: Emergency Provider Emergency Medicine; PCP Internal Medicine; Visit Provider Emergency Medicine
DX: S80.11XA Contusion of right lower leg, initial encounter (principal); X58.XXXA Exposure to other specified factors, initial encounter; I73.9 Peripheral vascular disease, unspecified; I10 Essential (primary) hypertension; F17.200 Nicotine dependence, unspecified, uncomplicated; Z79.01 Long term (current) use of anticoagulants; Z79.82 Long term (current) use of aspirin; Z79.899 Other long term (current) drug therapy; Z86.718 Personal history of other venous thrombosis and embolism
CPT/HCPCS: 80048; 85025; 85379; 99283; A4216

== ENCOUNTER 2025-04-30 18:22 | Emergency (ER) | payer MEDICAID, SELFPAY ==
[2025-04-30 18:24] VITALS: BP 132/101; PULSE 139; RESP 16; TEMP 35.7; O2SAT 97; BMI 35.6
--- NOTE | 2025-04-30 20:27 | US_ITS ---
EXAM: US Duplex Bilateral Lower Extremities Veins CLINICAL INDICATION: TECHNIQUE: Real-time duplex ultrasound scan of the bilateral lower extremity veins integrating B-mode two-dimensional vascular structure, Doppler spectral analysis, color flow Doppler imaging and compression. COMPARISON: No relevant prior studies available. FINDINGS: RIGHT DEEP VEINS: Unremarkable. No DVT in the right common femoral, femoral, proximal deep femoral or popliteal veins. The veins demonstrate normal color flow, are normally compressible, with normal phasic flow and/or augmentation response. RIGHT SUPERFICIAL VEINS: Unremarkable. No thrombus in the visualized right great saphenous vein. LEFT DEEP VEINS: Unremarkable. No DVT in the left common femoral, femoral, proximal deep femoral or popliteal veins. The veins demonstrate normal color flow, are normally compressible, with normal phasic flow and/or augmentation response. LEFT SUPERFICIAL VEINS: Unremarkable. No thrombus in the visualized left great saphenous vein. SOFT TISSUES: Subcutaneous edema of the left calf. No popliteal cyst. LYMPH NODES: Prominent lymph nodes of the groins, bilaterally. US/Venous Duplex Imag/Rm Extrem IMPRESSION: No DVT. Reading Location: [id number]
[2025-04-30 20:30] VITALS: BP 143/84; PULSE 117; RESP 20; O2SAT 98
--- NOTE | 2025-04-30 20:32 | ED.VIS.LOWEX ---
HPI History of Present Illness Chief Complaint: Edema Narrative Narrative: 50-year-old female diagnosed with blood clot extensively in right lower extremity presents from urgent care with concern for blood clot in her left leg. Although she is on a blood thinner, she states that on occasion she misses doses because she forgets. Last week she had right leg pain, swelling, and redness which improved, but now it is gone to the left. She has pain behind her calf on her left lower extremity. She denies any fevers or chills, no nausea or vomiting, no chest pain or shortness of breath. She states that she is concerned about having another blood clot. [facility] Medical History Blue toe syndrome Hypertension Substance abuse Methamphetamine use disorder, moderate Alcohol use disorder PTSD (post-traumatic stress disorder) Generalized anxiety disorder Bipolar 1 disorder, mixed Suicide attempt Carbamazepine overdose of undetermined intent Panic attacks Depression Nicotine abuse Chest pain Shortness of breath Intermittent palpitations Dizziness Lung nodule Moderate dysplasia of cervix (DARRELL II) Home Medications ?Medication ?Instructions ?Recorded ?Last Taken ?Type multivitamin,[id number] 1 tab PO DAILY 07/02/19 Unknown History (Complete Multivitamin tablet) fluticasone propionate 50 1 spray intranasal DAILY #16 grams 01/15/23 Unknown Rx mcg/actuation nasal spray,suspension (Flonase Allergy Relief) acetaminophen 500 mg tablet mg PO 03/19/24 Unknown History albuterol sulfate 90 mcg/actuation 2 puff inhalation Q4H PRN 03/19/24 Unknown History aerosol inhaler shortness of breath or wheezing amlodipine 5 mg tablet 5 mg PO QDAY 03/19/24 Unknown History aspirin 81 mg tablet,delayed 81 mg PO QDAY 03/19/24 Unknown History release cholecalciferol (vitamin D3) 1,250 PO 03/19/24 Unknown History mcg (50,000 unit) capsule cilostazol 100 mg tablet 100 mg PO BID 03/19/24 Unknown History clonidine HCl 0.1 mg tablet 0.1 mg PO QHS 03/19/24 Unknown History gabapentin 100 mg capsule 200 mg PO QHS 03/19/24 Unknown History hydrochlorothiazide 25 mg tablet 25 mg PO QDAY 03/19/24 Unknown History omeprazole 20 mg capsule,delayed 20 mg PO QDAY 03/19/24 Unknown History release oxybutynin chloride 15 mg 15 mg PO QDAY 03/19/24 Unknown History tablet,extended release 24 hr rivaroxaban 20 mg tablet (Xarelto) 20 mg PO QDAY 03/19/24 Unknown History rosuvastatin 10 mg tablet 10 mg PO QHS 03/19/24 Unknown History aripiprazole 15 mg tablet 20 mg PO QDAY 03/25/24 Unknown History dicyclomine 20 mg tablet 20 mg PO TID #20 tabs 02/13/25 Unknown Rx ondansetron 4 mg disintegrating 4 mg PO Q6H PRN nausea and 02/13/25 Unknown Rx tablet vomiting #30 tabs famotidine 40 mg tablet 40 mg PO QHS 04/17/25 Unknown History Allergy/AdvReac Type Severity Reaction Status Date / Time fenofibrate Allergy Severe Hives Verified 04/30/25 18:24 clindamycin Allergy Intermediate Hives Verified 04/30/25 18:24 cephalexin Allergy Hives Verified 04/30/25 18:24 olanzapine Allergy Hives Verified 04/30/25 18:24 sertraline HCl (From Zoloft) Allergy Hives Verified 04/30/25 18:24 Family History Father Hypertension Colon cancer Mother Lung cancer Grandmother Breast cancer Surgical History History of left breast biopsy (~08/2019) H/O LEEP History of cholecystectomy Social History household members: none Smoking Status: Heavy Smoker (>10/day) alcohol intake: current alcohol intake frequency: a few times a week substance use type: amphetamines ROS ROS ED ROS Narrative Review of systems positive for left lower extremity calf pain. No fevers or chills, no cough, no shortness of breath or chest pain. Mild redness to bilateral lower extremities, improving on right. EXAM Physical Exam Narrative Exam Narrative: Afebrile. Vital signs noted. Nontoxic-appearing. Cardiovascular examination reveals mild tachycardia. Lungs are clear to auscultation bilaterally. Abdomen is soft nontender with positive bowel sounds. Inspection of the bilateral lower extremities shows no evidence of crepitance bilaterally. No break in the skin or extensive erythema of the bilateral lower extremities. Mild tenderness left calf but no palpable cord. Palpable dorsalis pedis pulses bilaterally. Const Vital Signs: 04/30/25 18:24 04/30/25 19:40 04/30/25 20:30 Temperature 96.2 F L Temperature Source Temporal Pulse Rate 139 H 117 H Respiratory Rate 16 20 H Respiratory Effort Normal Non-Labored Respiratory Pattern Normal Blood Pressure 132/101 H 143/84 H Blood Pressure Mean 111 103 Pulse Ox 97 98 Oxygen Delivery Method Room Air MDM MDM MDM Narrative Medical decision making narrative: Differential diagnosis includes but not limited to left calf pain versus DVT versus Thompson's cyst. I have low suspicion for cellulitis based on her clinical examination. I discussed with the patient that she is already being treated for DVT/PE and that she should try not to miss her doses of her blood thinner. Ultrasound was obtained of the bilateral lower extremities. While her ultrasound results were still pending and being read, patient eloped from the emergency department. She was in stable condition. I had told her to continue her blood thinners regardless of what the ultrasound showed, and I feel that she will be treated for DVT if it were positive. History & Record Review Discussion w/independent historian: Patient Discharge Plan Triage Chief Complaint: Edema ED Provider: Travis Marcos Dx/Rx/DC Orders Prescriptions: No Action Complete Multivitamin Tablet 1 tab PO DAILY cilostazol 100 mg tablet 100 mg PO BID clonidine HCl 0.1 mg tablet 0.1 mg PO QHS oxybutynin chloride 15 mg tablet extended release 24hr 15 mg PO QDAY amlodipine 5 mg tablet 5 mg PO QDAY aspirin 81 mg tablet,delayed release (DR/EC) 81 mg PO QDAY acetaminophen 500 mg tablet PO omeprazole 20 mg capsule,delayed release(DR/EC) 20 mg PO QDAY hydrochlorothiazide 25 mg tablet 25 mg PO QDAY gabapentin 100 mg capsule 200 mg PO QHS albuterol sulfate 90 mcg/actuation HFA aerosol inhaler 2 puff inhalation Q4H PRN (Reason: shortness of breath or wheezing) rosuvastatin 10 mg tablet 10 mg PO QHS cholecalciferol (vitamin D3) 1,250 mcg (50,000 unit) capsule PO Xarelto 20 mg tablet 20 mg PO QDAY fluticasone propionate [Flonase Allergy Relief] 50 mcg/actuation spray,suspension 1 spray intranasal DAILY Qty: 16 0RF Rx Instructions: administer into each nostril dicyclomine 20 mg tablet 20 mg PO TID Qty: 20 0RF ondansetron 4 mg tablet,disintegrating 4 mg PO Q6H PRN (Reason: nausea and vomiting) Qty: 30 0RF famotidine 40 mg tablet 40 mg PO QHS Primary Care Provider: Isatu Fishman Referrals: Isatu Fishman MD [Primary Care Provider] - Print Language: Serbian
--- NOTE | 2025-04-30 22:34 | ED.RN ---
Pt came out of room, states I have to go now, my cab is here. ED MD in [facility], he explained to pt her imaging report was not back and he didn't have results. Pt voiced understanding and ambulated out of dept without difficulty.
== END 2025-04-30 22:06 | disposition left against medical advice (07) ==
PROVIDERS: Emergency Provider Emergency Medicine; PCP Internal Medicine; Visit Provider Emergency Medicine
DX: M79.605 Pain in left leg (principal); I10 Essential (primary) hypertension; F17.200 Nicotine dependence, unspecified, uncomplicated; Z90.49 Acquired absence of other specified parts of digestive tract; R60.9 Edema, unspecified
CPT/HCPCS: 93970; 99282

== ENCOUNTER 2025-07-03 14:12 | Emergency (ER) | payer MEDICAID, SELFPAY ==
[2025-07-03 14:13] VITALS: BP 139/93; PULSE 118; RESP 18; TEMP 37.1; O2SAT 98; BMI 35.9
--- NOTE | 2025-07-03 15:35 | EX.ED.DYSGE1 ---
HPI History of Present Illness Chief Complaint: Wound Check Informant: patient Onset/Context/Timing Onset: Days Context: Gradual Onset Timing: Continuous Current Severity: Mild Maximum Severity: Mild Narrative Narrative: 50-year-old female history of meth amphetamine use, PTSD, bipolar, DVT on Xarelto prior left breast cysts with surgery. Presents today she has had a wound on her right breast medial to the nipple for a week or so with blood-tinged drainage. No pus. No fever. She has appointment to see her primary care physician on Sunday Dr. Fishman. An appointment to see a general surgeon to [facility] locally in August. Prior similar symptoms: Yes Recent Illness/Hospitalization: No [facility] Medical History Blue toe syndrome Hypertension Substance abuse Methamphetamine use disorder, moderate Alcohol use disorder PTSD (post-traumatic stress disorder) Generalized anxiety disorder Bipolar 1 disorder, mixed Suicide attempt Carbamazepine overdose of undetermined intent Panic attacks Depression Nicotine abuse Chest pain Shortness of breath Intermittent palpitations Dizziness Lung nodule Moderate dysplasia of cervix (DARRELL II) Home Medications ?Medication ?Instructions ?Recorded ?Last Taken ?Type multivitamin,[id number] 1 tab PO DAILY 07/02/19 Unknown History (Complete Multivitamin tablet) fluticasone propionate 50 1 spray intranasal DAILY #16 grams 01/15/23 Unknown Rx mcg/actuation nasal spray,suspension (Flonase Allergy Relief) acetaminophen 500 mg tablet mg PO 03/19/24 Unknown History albuterol sulfate 90 mcg/actuation 2 puff inhalation Q4H PRN 03/19/24 Unknown History aerosol inhaler shortness of breath or wheezing amlodipine 5 mg tablet 5 mg PO QDAY 03/19/24 Unknown History aspirin 81 mg tablet,delayed 81 mg PO QDAY 03/19/24 Unknown History release cholecalciferol (vitamin D3) 1,250 PO 03/19/24 Unknown History mcg (50,000 unit) capsule cilostazol 100 mg tablet 100 mg PO BID 03/19/24 Unknown History clonidine HCl 0.1 mg tablet 0.1 mg PO QHS 03/19/24 Unknown History gabapentin 100 mg capsule 200 mg PO QHS 03/19/24 Unknown History hydrochlorothiazide 25 mg tablet 25 mg PO QDAY 03/19/24 Unknown History omeprazole 20 mg capsule,delayed 20 mg PO QDAY 03/19/24 Unknown History release oxybutynin chloride 15 mg 15 mg PO QDAY 03/19/24 Unknown History tablet,extended release 24 hr rivaroxaban 20 mg tablet (Xarelto) 20 mg PO QDAY 03/19/24 Unknown History rosuvastatin 10 mg tablet 10 mg PO QHS 03/19/24 Unknown History aripiprazole 15 mg tablet 20 mg PO QDAY 03/25/24 Unknown History dicyclomine 20 mg tablet 20 mg PO TID #20 tabs 02/13/25 Unknown Rx ondansetron 4 mg disintegrating 4 mg PO Q6H PRN nausea and 02/13/25 Unknown Rx tablet vomiting #30 tabs famotidine 40 mg tablet 40 mg PO QHS 04/17/25 Unknown History Allergy/AdvReac Type Severity Reaction Status Date / Time fenofibrate Allergy Severe Hives Verified 07/03/25 14:13 clindamycin Allergy Intermediate Hives Verified 07/03/25 14:13 cephalexin Allergy Hives Verified 07/03/25 14:13 olanzapine Allergy Hives Verified 07/03/25 14:13 sertraline HCl (From Zoloft) Allergy Hives Verified 07/03/25 14:13 Family History Father Hypertension Colon cancer Mother Lung cancer Grandmother Breast cancer Surgical History History of left breast biopsy (~08/2019) H/O LEEP History of cholecystectomy Social History household members: none Smoking Status: Heavy Smoker (>10/day) alcohol intake: current alcohol intake frequency: a few times a week substance use type: amphetamines ROS ROS ED ROS Narrative Right breast discomfort. Constitutional Constitutional ED: Denies chills or fever(s) Eyes Eyes: Denies blurry vision ENT ENT ED: Denies ear pain Cardiovascular Cardiovascular: Denies chest pain Respiratory/Chest Respiratory/Chest: Denies cough or dyspnea Gastrointestinal Gastrointestinal: Denies abdominal pain Genitourinary Genitourinary ED: Denies dysuria or hematuria Musculoskeletal Musculoskeletal: Denies arthralgias Integumentary Denies abscess Neurologic Neurologic: Denies headache(s) Psychiatric Psychiatric: Denies anxiety Endocrine Endocrinology: Denies cold intolerance Hematologic/Lymphatic Hematologic/Lymphatic: Reports none Allergic/Immunologic Allergic/Immunologic ED: Denies mouth swelling, tongue swelling or urticaria EXAM Physical Exam Narrative Exam Narrative: 50-year-old female sitting upright in bed. Vital signs are stable afebrile. No distress. Pulse ox 98% on room air. H EENT exam pupils round react light. Moist mutes members. Neck nontender no JVD. Lungs clear to auscultation bilaterally. Heart regular rhythm rate about 105 no murmur. Chest wall ribs nontender. Right breast medially there is a small wound. Blood-tinged drainage. No pus. She had a breast exam done today with nurse present in the room. There is no cellulitis. There is no pus like drainage. Nose isolated lymphadenopathy. This could be fibrocystic breast disease. It could be a cyst or even an abscess but clinically I do not think it is an abscess. It is not specifically tender. Abdomen soft nontender. Back nontender. Moving all 4 extremities. Neurologically she is awake and alert. Answering questions following commands. Const Vital Signs: 07/03/25 14:13 Temperature 98.8 F Temperature Source Oral Pulse Rate 118 H Respiratory Rate 18 Blood Pressure 139/93 H Blood Pressure Mean 108 Pulse Ox 98 Oxygen Delivery Method Room Air Positive well nourished and well developed; Negative for cachectic, contractures or unkempt General Appearance ED: well developed and NAD; Negative for unkempt, cachectic, contractures, cyanotic, diaphoretic or pallor Nutritional Appearance: Negative for cachectic HEENT Reports moist mucous membranes Eyes PERRL and EOMs intact bilaterally Neck no lymphadenopathy, supple and no JVD Chest Wall inspection of chest normal and palpation of chest normal Chest Narrative: Except small wound medial right nipple. No cellulitis. No pus. Possible cyst. Possible fibrocystic breast disease. No axillary lymphadenopathy. Exam and with female nurse present in the room. Resp normal respiratory effort and clear to auscultation bilaterally Cardio regular rhythm, S1 normal heart sound, S2 normal heart sound and no murmurs; Negative for regular rate Rate: tachycardic GI normal to inspection, nondistended, normoactive bowel sounds, non-tender, non-distended and no masses Auscultation: normoactive bowel sounds Palpation: soft; Negative for tender or guarding Back/Spine no CVA tenderness Extremity normal to inspection General Extremety ED: Negative for edema or tenderness General Extremity: Negative for edema Neuro oriented x3 and CN's II-XII intact bilaterally Sensorium / Orientation: alert Motor Exam: strength 5/5 throughout Psych Appearance: Negative for unkempt Mood & Affect: Negative for tearful Skin no rashes or lesions noted, No no wounds and skin turgor normal General Skin Exam: Negative for jaundice or pallor Lesions: lesion noted Rashes: rashes noted Trauma: abrasion Wounds: wounds noted MDM MDM MDM Narrative Medical decision making narrative: 50-year-old female has a right breast either cyst, abscess or other. Clinically is not infected. She already has appointment set up to see her primary on Sunday and her surgeon on August. She should follow-up sooner. Get the appropriate imaging possibly a mammogram and/or ultrasound of her breast. See they can move up the appointment to see the surgeon. At this time it does not look infected. She does not need antibiotics. There is nothing to I&D. Discharge Plan Triage Chief Complaint: Wound Check Other Complaint: Shortness of Breath ED Provider: Man Velazquez Dx/Rx/DC Orders Clinical Impression: Breast cyst Instructions: ED Wound Check (No Infection) Prescriptions: No Action Complete Multivitamin Tablet 1 tab PO DAILY cilostazol 100 mg tablet 100 mg PO BID clonidine HCl 0.1 mg tablet 0.1 mg PO QHS oxybutynin chloride 15 mg tablet extended release 24hr 15 mg PO QDAY amlodipine 5 mg tablet 5 mg PO QDAY aspirin 81 mg tablet,delayed release (DR/EC) 81 mg PO QDAY acetaminophen 500 mg tablet PO omeprazole 20 mg capsule,delayed release(DR/EC) 20 mg PO QDAY hydrochlorothiazide 25 mg tablet 25 mg PO QDAY gabapentin 100 mg capsule 200 mg PO QHS albuterol sulfate 90 mcg/actuation HFA aerosol inhaler 2 puff inhalation Q4H PRN (Reason: shortness of breath or wheezing) rosuvastatin 10 mg tablet 10 mg PO QHS cholecalciferol (vitamin D3) 1,250 mcg (50,000 unit) capsule PO Xarelto 20 mg tablet 20 mg PO QDAY fluticasone propionate [Flonase Allergy Relief] 50 mcg/actuation spray,suspension 1 spray intranasal DAILY Qty: 16 0RF Rx Instructions: administer into each nostril dicyclomine 20 mg tablet 20 mg PO TID Qty: 20 0RF ondansetron 4 mg tablet,disintegrating 4 mg PO Q6H PRN (Reason: nausea and vomiting) Qty: 30 0RF famotidine 40 mg tablet 40 mg PO QHS Primary Care Provider: Isatu Fishman Referrals: Isatu Fishman MD [Primary Care Provider] - Keep Ap appointment Activity Restrictions/Additional Instructions: Keep area of the right breast clean. Watch for any signs of infection such as pus, redness, swelling or fever. At this time it is not infected. Keep your appoint with your primary care physician next Sunday. They can get you in ultrasound your breast and/or a mammogram. Then see if they can get your appointment with the surgeon Dr. Philipp Roblero moved up. Print Language: Maltese Disposition Disposition: Home, Self Care
[2025-07-03 15:53] VITALS: BP 139/93; PULSE 97; RESP 18; TEMP 37.1; O2SAT 98
== END 2025-07-03 19:07 | disposition home or self-care (01) ==
LOC: ED 15:38
PROVIDERS: Emergency Provider Emergency Medicine; PCP Internal Medicine; Visit Provider Emergency Medicine
DX: N60.01 Solitary cyst of right breast (principal); F31.9 Bipolar disorder, unspecified; F17.200 Nicotine dependence, unspecified, uncomplicated; Z79.01 Long term (current) use of anticoagulants
CPT/HCPCS: 99283

== ENCOUNTER 2025-07-10 13:00 | Emergency (ER) | payer MEDICAID, SELFPAY ==
[2025-07-10 13:01] VITALS: BP 129/82; PULSE 117; RESP 18; TEMP 37.1; O2SAT 95; BMI 17.3
--- NOTE | 2025-07-10 13:10 | ED.RN ---
pt states she started coughing up blood, not observed by this nurse, blood. no hx of this. had a procedure done approx a year ago that resulted in early cancer cells per pt.
--- NOTE | 2025-07-10 13:41 | EX.ED.DYSGE1 ---
HPI History of Present Illness Chief Complaint: Chest Other Informant: patient Onset/Context/Timing Onset: Today Context: Sudden Onset Timing: Continuous Quality: Blood streaks Location: Throat Worsened by: Coughing Relieved by: Nothing Associated Symptoms Associated Symptoms: voice changes Narrative Narrative: Patient presents with hemoptysis that began today. Patient states it began rather suddenly. Patient states she was coughing up streaks of blood. 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 Baig for that. Patient is on Xarelto for DVT. Patient denies any shortness of breath. Patient admits to a mild sore throat. Patient admits to some changes in her voice. Patient states her throat pain is worse with coughing. Patient denies any fevers or chills. [facility] Medical History Blue toe syndrome Hypertension Substance abuse Methamphetamine use disorder, moderate Alcohol use disorder PTSD (post-traumatic stress disorder) Generalized anxiety disorder Bipolar 1 disorder, mixed Suicide attempt Carbamazepine overdose of undetermined intent Panic attacks Depression Nicotine abuse Chest pain Shortness of breath Intermittent palpitations Dizziness Lung nodule Moderate dysplasia of cervix (DARRELL II) Home Medications ?Medication ?Instructions ?Recorded ?Last Taken ?Type multivitamin,[id number] 1 tab PO DAILY 07/02/19 Unknown History (Complete Multivitamin tablet) fluticasone propionate 50 1 spray intranasal DAILY #16 grams 01/15/23 Unknown Rx mcg/actuation nasal spray,suspension (Flonase Allergy Relief) acetaminophen 500 mg tablet mg PO 03/19/24 Unknown History albuterol sulfate 90 mcg/actuation 2 puff inhalation Q4H PRN 03/19/24 Unknown History aerosol inhaler shortness of breath or wheezing amlodipine 5 mg tablet 5 mg PO QDAY 03/19/24 Unknown History aspirin 81 mg tablet,delayed 81 mg PO QDAY 03/19/24 Unknown History release cholecalciferol (vitamin D3) 1,250 PO 03/19/24 Unknown History mcg (50,000 unit) capsule cilostazol 100 mg tablet 100 mg PO BID 03/19/24 Unknown History clonidine HCl 0.1 mg tablet 0.1 mg PO QHS 03/19/24 Unknown History gabapentin 100 mg capsule 200 mg PO QHS 03/19/24 Unknown History hydrochlorothiazide 25 mg tablet 25 mg PO QDAY 03/19/24 Unknown History omeprazole 20 mg capsule,delayed 20 mg PO QDAY 03/19/24 Unknown History release oxybutynin chloride 15 mg 15 mg PO QDAY 03/19/24 Unknown History tablet,extended release 24 hr rivaroxaban 20 mg tablet (Xarelto) 20 mg PO QDAY 03/19/24 Unknown History rosuvastatin 10 mg tablet 10 mg PO QHS 03/19/24 Unknown History aripiprazole 15 mg tablet 20 mg PO QDAY 03/25/24 Unknown History dicyclomine 20 mg tablet 20 mg PO TID #20 tabs 02/13/25 Unknown Rx ondansetron 4 mg disintegrating 4 mg PO Q6H PRN nausea and 02/13/25 Unknown Rx tablet vomiting #30 tabs famotidine 40 mg tablet 40 mg PO QHS 04/17/25 Unknown History Allergy/AdvReac Type Severity Reaction Status Date / Time fenofibrate Allergy Severe Hives Verified 07/10/25 13:05 clindamycin Allergy Intermediate Hives Verified 07/10/25 13:05 cephalexin Allergy Hives Verified 07/10/25 13:05 olanzapine Allergy Hives Verified 07/10/25 13:05 sertraline HCl (From Zoloft) Allergy Hives Verified 07/10/25 13:05 Family History Father Hypertension Colon cancer Mother Lung cancer Grandmother Breast cancer Surgical History History of left breast biopsy (~08/2019) H/O LEEP History of cholecystectomy Social History household members: none Smoking Status: Heavy Smoker (>10/day) alcohol intake: current alcohol intake frequency: a few times a week substance use type: amphetamines ROS ROS ED Constitutional Constitutional ED: Denies chills or fever(s) Eyes Eyes: Denies blurry vision or change in vision ENT ENT ED: Reports sore throat; Denies rhinorrhea Cardiovascular Cardiovascular: Denies chest pain or palpitations Respiratory/Chest Respiratory/Chest: Reports cough; Denies dyspnea Gastrointestinal Gastrointestinal: Denies nausea or vomiting Genitourinary Genitourinary ED: Denies dysuria or hematuria Musculoskeletal Musculoskeletal: Reports back pain and neck pain Integumentary Denies abscess or rash Neurologic Neurologic: Denies headache(s) or weakness Allergic/Immunologic Allergic/Immunologic ED: Denies mouth swelling or urticaria EXAM Physical Exam Const Vital Signs: 07/10/25 13:01 07/10/25 13:09 07/10/25 14:01 Temperature 98.7 F Temperature Source Oral Pulse Rate 117 H 105 H Respiratory Rate 18 19 H Respiratory Effort Normal Blood Pressure 129/82 H 103/71 Blood Pressure Mean 97 81 Pulse Ox 95 94 Oxygen Delivery Method Room Air Positive well nourished and well developed General Appearance ED: well developed and NAD HEENT Reports moist mucous membranes HEENT Narrative: There is some dried blood noted on the soft palate. There is no active bleeding in the oropharynx or oral cavity. Neck supple and no JVD Resp normal respiratory effort and clear to auscultation bilaterally Cardio regular rate and regular rhythm GI non-tender and non-distended Palpation: soft Extremity normal to inspection Neuro oriented x3, CN's II-XII intact bilaterally and no sensory deficits noted Sensorium / Orientation: alert Motor Exam: strength 5/5 throughout Psych mental status grossly normal MDM MDM MDM Narrative Medical decision making narrative: Differential diagnosis includes coagulopathy, laryngeal cancer, mass, and anxiety. CBC will be obtained to assess for leukocytosis and anemia. Basic metabolic profile will be obtained to assess for electrolyte abnormality and renal function. PT with INR and PTT will be obtained to assess for coagulopathy. CT scan of soft tissue neck will be obtained to assess for laryngeal mass. Lab Data Attestation: I reviewed the patient's lab results. Lab results narrative: CBC was reviewed and is within normal limits. Basic metabolic profile was reviewed and was essentially within normal limits. PT with INR and PTT were reviewed. Pro time was 20.6 and INR is 1.7. PTT was normal at 35.8. Labs: Laboratory Results - last 24 hr 07/10/25 13:54 WBC 8.9 RBC 5.00 Hgb 12.2 Hct 38.3 MCV 76.6 L MCH 24.4 L MCHC 31.9 L RDW Std Deviation 46.7 H RDW Coeff of Piero 17.1 H Plt Count 381 MPV 9.2 Immature Gran % (Auto) 0.600 Neut % (Auto) 62.2 Lymph % (Auto) 28.0 [place] % (Auto) 5.9 Eos % (Auto) 2.5 Baso % (Auto) 0.8 Absolute Neuts (auto) 5.5 Absolute Lymphs (auto) 2.49 Nucleated RBC % 0 PT 20.6 H INR 1.7 APTT 35.8 Sodium 133 Potassium 3.3 Chloride 95 L Carbon Dioxide 27.7 Anion Gap 11 BUN 6 Creatinine 0.69 L Estim Creat Clear Calc 74.18 Est GFR (MDRD) Non-Af 105 BUN/Creatinine Ratio 8.1 L Glucose 128 H Calcium 9.1 Radiography Diagnostic Testing: Clinical Impression(s) from Imaging Studies Soft Tissue Neck CT 07/10/25 14:07 IMPRESSION: No acute abnormality is seen. Reading Location: [place] [id number] CT scan of the soft tissue neck was obtained. There is no acute abnormality noted. There are no masses noted. There is no airway compromise. This was interpreted by the radiologist and was also independently reviewed by myself. Treatment and Re-Evaluation :: Patient was advised of her findings. Patient was still having some blood-streaked sputum. Patient was advised that this is likely due to his anticoagulants. Patient was instructed to drink plenty of fluids. Patient was instructed to follow-up with her primary care physician in 5 to 7 days. Patient was instructed to return if worse in any way. Patient understood and was agreeable with the plan. All questions answered. Discharge Plan Triage Chief Complaint: Chest Other ED Provider: Moi Landeros Dx/Rx/DC Orders Clinical Impression: Cough with hemoptysis, Tobacco use Instructions: ED Hemoptysis Prescriptions: No Action Complete Multivitamin Tablet 1 tab PO DAILY cilostazol 100 mg tablet 100 mg PO BID clonidine HCl 0.1 mg tablet 0.1 mg PO QHS oxybutynin chloride 15 mg tablet extended release 24hr 15 mg PO QDAY amlodipine 5 mg tablet 5 mg PO QDAY aspirin 81 mg tablet,delayed release (DR/EC) 81 mg PO QDAY acetaminophen 500 mg tablet PO omeprazole 20 mg capsule,delayed release(DR/EC) 20 mg PO QDAY hydrochlorothiazide 25 mg tablet 25 mg PO QDAY gabapentin 100 mg capsule 200 mg PO QHS albuterol sulfate 90 mcg/actuation HFA aerosol inhaler 2 puff inhalation Q4H PRN (Reason: shortness of breath or wheezing) rosuvastatin 10 mg tablet 10 mg PO QHS cholecalciferol (vitamin D3) 1,250 mcg (50,000 unit) capsule PO Xarelto 20 mg tablet 20 mg PO QDAY fluticasone propionate [Flonase Allergy Relief] 50 mcg/actuation spray,suspension 1 spray intranasal DAILY Qty: 16 0RF Rx Instructions: administer into each nostril dicyclomine 20 mg tablet 20 mg PO TID Qty: 20 0RF ondansetron 4 mg tablet,disintegrating 4 mg PO Q6H PRN (Reason: nausea and vomiting) Qty: 30 0RF famotidine 40 mg tablet 40 mg PO QHS Primary Care Provider: Isatu Fishman Referrals: Isatu Fishman MD [Primary Care Provider] - 3-5 Days Print Language: Greek Disposition Disposition: Home, Self Care
[2025-07-10 14:01] VITALS: BP 103/71; PULSE 105; RESP 19; O2SAT 94
[2025-07-10 14:01] LABS: Hematocrit 38.3 % (37-47); Hemoglobin 12.2 g/dL (12.0-15.0); Immature Granulocytes Count 0.050 X10^3/uL (0.0-0.0); Mean Corp Hgb Conc 31.9 g/dL (32-36); Mean Corpuscular Volume 76.6 fL (81-99); Mean Platelet Vol. 9.2 fl (6.2-12.0); NRBC Flagged by Analyzer 0 % (0-5); Platelet Count 381 K/mm3 (150-450); RBC Distribution Width CV 17.1 % (11.6-14.6); RBC Distribution Width SD 46.7 fl (35.1-43.9); Red Blood Count 5.00 M/mm3 (4.2-5.4); White Blood Count 8.9 K/mm3 (4.4-11.0)
--- NOTE | 2025-07-10 14:07 | CT_ITS ---
PROCEDURE: SOFT TISSUE NECK WITH CONTRAST 07/10/2025 REASON FOR EXAM: HEMOPTYSIS Precancerous cells on the vocal cords. TECHNIQUE: Procedure Code: CTNEW Modality: CT Procedure: SOFT TISSUE NECK WITH CONTRAST CONTRAST: Isovue-300 VOLUME: 90 mL One or more dose reduction techniques were used (e.g., Automated exposure control, adjustment of the mA and/or kV according to patient size, use of iterative reconstruction technique). RADIATION DOSE SUMMARY: CTDlvol: 19.08 mGy DLP: 605.27 mGycm COMPARISON: None FINDINGS: Airway: Midline and patent. Salivary glands: Unremarkable. Lymph nodes: No cervical lymphadenopathy. Thyroid: Unremarkable. Vasculature: Carotid arteries and internal jugular veins are unremarkable. Orbits: Unremarkable at visualized levels. Paranasal sinuses and mastoids: Grossly clear at visualized levels. Lung apices: Clear. Upper mediastinum: Visualized mediastinum is unremarkable. Bones: Multilevel degenerative changes of the spine. Other: CT/Soft Tissue Neck WITH Contrast IMPRESSION: No acute abnormality is seen. Reading Location: [place] [address]
[2025-07-10 14:15] LABS: Partial Thromboplast Time 35.8 Seconds (24.1-36.2); Prothrombin Time (Protime)PT. 20.6 SECONDS (11.7-14.9)
[2025-07-10 14:32] LABS: Anion Gap 11 (5-15); BUN 6 mg/dL (4-19); BUN/Creat Ratio 8.1 RATIO (10-20); Calcium,Total 9.1 mg/dL (7.6-11.0); Carbon Dioxide 27.7 mmol/L (21.0-32.0); Chloride 95 mmol/L (98-108); Estimated Creatinine Clearance 74.18 ml/min (50-250); Glucose 128 mg/dL (70-99); Potassium 3.3 mmol/L (3.3-5.1)
[2025-07-10 15:41] VITALS: BP 129/77; PULSE 100; RESP 16; O2SAT 94
[2025-07-10 15:42] VITALS: BP 129/77; PULSE 100; RESP 16; TEMP 36.5; O2SAT 94
== END 2025-07-10 15:43 | disposition home or self-care (01) ==
PROVIDERS: Emergency Provider Emergency Medicine; PCP Internal Medicine; Visit Provider Emergency Medicine
DX: R05.9 Cough, unspecified (principal); F31.9 Bipolar disorder, unspecified; I82.409 Acute embolism and thrombosis of unspecified deep veins of unspecified lower extremity; R04.2 Hemoptysis; J02.9 Acute pharyngitis, unspecified; Z79.01 Long term (current) use of anticoagulants; I10 Essential (primary) hypertension; F17.200 Nicotine dependence, unspecified, uncomplicated; F41.1 Generalized anxiety disorder; Z90.49 Acquired absence of other specified parts of digestive tract
CPT/HCPCS: 70491; 80048; 85025; 85610; 85730; 99285; Q9967